=== PATIENT | male | born 1940 | race Caucasian/White ===

== ENCOUNTER → 2016-12-01 | Outpatient (CLI) | payer OTHER ==
[2016-12-01 13:08] LABS: ALT/SGPT 17 U/L (12-78); BLOOD UREA NITROGEN 13 mg/dl (7-18); BUN/CREATININE RATIO 11.7 (10-20); CALCIUM 9.2 mg/dl (8.5-10.1); CARBON DIOXIDE 34 mmol/L (21-32); CHLORIDE 102 mmol/L (98-107); CHOLESTEROL 120 mg/dl (0-200); CREATININE 1.12 mg/dl (0.60-1.40); GLUCOSE,FASTING 89 mg/dl (70-99); POTASSIUM 3.9 mmol/L (3.5-5.1); SODIUM 141 mmol/L (136-145)
[2016-12-01 13:19] LABS: ALB/GLOB RATIO 1.1 (0.9-2); ALKALINE PHOSPHATASE 85 U/L (45-117); AST/SGOT 19 U/L (15-37); CHOLESTEROL/HDL RATIO 2.4; HDL CHOLESTEROL 50 mg/dl; LDL CHOLESTEROL CALCULATED 53 mg/dl; TRIGLYCERIDES 83 mg/dl (0-150); VERY LOW DENSITY LIPOPROT CALC 17 mg/dl
== END | disposition home or self-care (01) ==
LOC: C.LABPBG 09:40
PROVIDERS: ATTEND Physician Assistant
DX: Z00.00 Encounter for general adult medical examination without abnormal findings (principal); E03.9 Hypothyroidism, unspecified

== ENCOUNTER → 2017-02-20 | Outpatient (CLI) | payer OTHER | END | disposition home or self-care (01) | LOC: C.LABPBG 15:03 | PROVIDERS: ATTEND Physician Assistant | DX: E03.9 Hypothyroidism, unspecified (principal) ==

== ENCOUNTER → 2017-04-07 | Outpatient (CLI) | payer OTHER | END | disposition home or self-care (01) | LOC: C.LABPBG 15:29 | PROVIDERS: ATTEND Physician Assistant | DX: E03.9 Hypothyroidism, unspecified (principal) ==

== ENCOUNTER → 2017-06-26 | Outpatient (CLI) | payer OTHER ==
[2017-06-26 17:01] LABS: HEMATOCRIT 40.2 % (42-52); HEMOGLOBIN 13.6 g/dL (14.0-18.0); MEAN CORPUSCULAR HEMOGLOBIN 31.1 pg (25-34); MEAN CORPUSCULAR HGB CONC 33.8 g/dl (32-36); MEAN PLATELET VOLUME 10.4 fL (7.4-10.4); PLATELET COUNT 291 K/uL (130-400); RED CELL DISTRIBUTION WIDTH CV 12.9 % (11.5-14.5); RED CELL DISTRIBUTION WIDTH SD 43.5 fL (36.4-46.3); WHITE BLOOD COUNT 8.67 K/uL (4.8-10.8)
[2017-06-26 17:35] LABS: BLOOD UREA NITROGEN 19 mg/dl (7-18); CALCIUM 9.1 mg/dl (8.5-10.1); CARBON DIOXIDE 34 mmol/L (21-32); GLUCOSE 80 mg/dl (70-99); POTASSIUM 3.9 mmol/L (3.5-5.1); SODIUM 138 mmol/L (136-145)
== END | disposition home or self-care (01) ==
LOC: C.LABPBG 15:36
PROVIDERS: ATTEND Family Medicine
DX: R41.3 Other amnesia (principal)

== ENCOUNTER 2018-06-05 19:12 | Inpatient (IN) ==
[2018-06-05 19:55] LABS: Hematocrit (blood only) 34.2 % (42-52); Hemoglobin 11.6 g/dL (14.0-18.0); Mean Corpuscular Hgb Conc 33.9 g/dL (32-36); Mean Corpuscular Volume 85.7 fL (80-100); Mean Platelet Volume 10.4 fL (7.4-10.4); Platelet Count 317 K/uL (130-400); RDW Coefficient of Variation 14.6 % (11.5-14.5); RDW Standard Deviation 46.1 fL (36.4-46.3); Red Blood Count 3.99 M/uL (4.7-6.1); White Blood Count 24.31 K/uL (4.8-10.8)
--- NOTE | 2018-06-05 20:10 | CT Scan Report ---
CT head/brain wo con CT DOSE: 537.48 mGy.cm HISTORY: Mental status change ams TECHNIQUE: Multiaxial CT images of the head were performed without the use of intravenous contrast. A dose lowering technique was utilized adhering to the principles of ALARA. Comparison: None. Findings: The paranasal sinuses and mastoid air cells are clear. The calvarium and skull base are int act. The ventricles and sulci are within normal limits. There is no mass, hematoma, midline shift, or acute infarct. Findings of generalized atrophy and chronic small vessel change. Impression: No acute intracranial abnormality. Generalized atrophy and chronic small vessel change. The above report was generated using voice recognition software. It may contain grammatical, syntax or spelling errors. Electronically signed by: Trip Ramirez M.D. 06/05/2018 8:08 PM
[2018-06-05 20:14] LABS: Appearance Urine Cloudy (Clear); Bacteria Urine Automated 3+ (Negative); Bilirubin Urine Negative (Negative); Blood Urine 3+ (Negative); Color Urine Dark Yellow; Epithelial Cell Urine Auto 20-30 /lpf (0-5); Glucose Urine UA Negative (Negative); Ketones Urine Negative (Negative); Leukocyte Esterase Urine 2+ (Negative); Nitrite Urine Positive (Negative); Protein Urine 2+ (Negative); RBC Urine Automated 0-4 /hpf (0-4); Specific Gravity Urine 1.021 (1.000-1.030); Urobilinogen Urine Negative (Negative); WBC Urine Automated >30 /hpf (0-5); pH Urine 6.5 (4.5-7.5)
[2018-06-05 20:14] LABS: Alanine Aminotransferase 15 U/L (12-78); Albumin Level 2.9 gm/dl (3.4-5.0); Aspartate Aminotransferase 26 U/L (15-37); BUN Creatinine Ratio 12.4 (10-20); Bilirubin Direct 0.3 mg/dl (0-0.2); Blood Urea Nitrogen 24 mg/dl (7-18); Calcium 8.9 mg/dl (8.5-10.1); Carbon Dioxide 29 mmol/L (21-32); Chloride 97 mmol/L (98-107); Creatinine Clr Calc Pharmacy 30.6 ml/min; Est GFR (African American) 37.5; Est GFR (Non-African American) 32.4; Glucose 125 mg/dl (70-99); Magnesium 2.3 mg/dl (1.8-2.4); Potassium 3.2 mmol/L (3.5-5.1); Sodium 136 mmol/L (136-145)
[2018-06-05 20:16] LABS: Basophils # (auto) 0.02 K/uL (0-0.2); Basophils % (auto) 0.1 %; Immature Granulocytes # (auto) 0.07 K/uL (0.00-0.02); Immature Granulocytes % (auto) 0.3 %; Lymphocytes # (auto) 0.85 K/uL (1.2-3.4); Lymphocytes % (auto) 3.5 %; Monocytes % (auto) 11.5 %; Neutrophils # (auto) 20.57 K/uL (1.4-6.5); Neutrophils % (auto) 84.6 %; Ovalocytes 1+
[2018-06-05 20:19] LABS: Alkaline Phosphatase 86 U/L (45-117); Bilirubin,Total 0.9 mg/dl (0.2-1); Total Protein 7.5 gm/dl (6.4-8.2); Troponin I < 0.015 ng/ml (0-0.045)
[2018-06-05] MEDS ORDERED: cefTRIAXone SODIUM 1,000 MG/50 ML BAG IV STA (20:19)
[2018-06-05 20:24] LABS: Influenza A virus by PCR Neg for Influ A (Neg); Influenza B virus by PCR Neg for Influ B (Neg)
[2018-06-05] MEDS: SODIUM CHLORIDE 0.9% 500 ML IV SCH (20:28)
--- NOTE | 2018-06-05 20:41 | XRay Report ---
XR chest 1V portable CLINICAL HISTORY: ams dyspnea COMPARISON STUDY: No previous studies for comparison. FINDINGS: Permanent bipolar cardiac pacemaker. Minimal infiltrative process left base. Lungs otherwis e appear clear. IMPRESSION: Minimal parenchymal infiltrate left base. The above report was generated using voice recognition software. It may contain grammatical, syntax or spelling errors. Electronically signed by: Trip Ramirez M.D. 06/05/2018 8:40 PM
[2018-06-05] MEDS ORDERED: AZITHROMYCIN 500 MG in DEXTROSE 5% 250 ML IV STA (20:45)
[2018-06-05] MEDS ORDERED: AZITHROMYCIN 250 MG TAB PO ONE (20:47)
[2018-06-05] MEDS ORDERED: POTASSIUM CHLORIDE 10 MEQ TABCR PO STA (20:47)
[2018-06-05 20:51] LABS: Base Excess VBG 5.4 mEq/L; Oxygen Saturation VBG 85.9 %; pH VBG 7.47 (7.36-7.41)
[2018-06-05 21:04] LABS: INR 1.3 (0.9-1.1); Partial Thromboplastin Ratio 1.1; Partial Thromboplastin Time 28.8 Seconds (21.0-31.0); Prothrombin Time 13.3 Seconds (9.0-12.0)
[2018-06-05] MEDS ORDERED: POLYETHYLENE (MIRALAX) 17 GM PACK PO PRN (21:40)
[2018-06-05] MEDS ORDERED: ONDANSETRON INJ 2 MG/ML 2 ML VIAL IV PRN (21:40)
[2018-06-05] MEDS ORDERED: ALUMINUM/MAGNESIUM SUSP 30 ML UDC PO PRN (21:40)
[2018-06-05] MEDS ORDERED: ACETAMINOPHEN 325 MG TAB PO PRN (21:40)
[2018-06-05] MEDS ORDERED: MAGNESIUM HYDROXIDE SUSP 30 ML UDC PO PRN (21:40)
[2018-06-05] MEDS ORDERED: ALBUT/IPRATROP 3MG/0.5MG NEB 3 ML VIAL NEB PRN (21:51)
--- NOTE | 2018-06-05 22:03 | History & Physical Report ---
Date of Service June 05, 2018 Assessment & Plan (1) UTI (urinary tract infection): 78 y/o M Hx PAF, pacer, CAD, HTN, HLD, hypothyroid, mild dementia, BPH requiring self-catheterization. The pt has become weak and disoriented over the past 2 days. He is normally independent and ambulatory. He was unable to stand himself up and was only oriented to place and self per his daughter. At the time of admission, he is able to converse with me, although he cannot provide any reliable information or tell me why he presented to the hospital. On arrival to the ER it was noted that his oxygen saturation was low. He had not reported SOB or a cough. A CXR demonstrated a LLL infiltrate. Labs were notable for a +UA, significant leukocytosis and ARF. 1) AMS, weakness - due to infection and likely dehydration - UTI - placed on Ceftriaxone pending culture results. As he self-caths, would not hesitate to broaden coverage if there is any question of evolving sepsis. - PNM - he had not complained of respiratory symptoms but was mildly hypoxic on arrival and a CXR is consistent with PNM - 02 protocol, PRN nebs, Zithro added to Ceftriaxone PT/OT pending for AM 2) ARF - IVF provided - repeat BMP AM - HCTZ held 3) AF - anticoagulated with Xarelto - Coreg provided 4) CAD - No evidence of ACS - cont ASA, statin, B christina, Imdur 5) Hypothyroidism - cont Synthroid Full code - Xarelto prophylaxis Total time for this admit including review of labs, meds, imaging, records - discussion with pt and ER attending - 39 min Present on Admission?: Yes (2) Altered mental status: (3) Hypoxia: (4) PNA (pneumonia): (5) Acute kidney injury: History of Present Illness Chief Complaint: AMS, weakness Primary Care Provider: Celina Saunders, 78 y/o M Hx PAF, pacer, CAD, HTN, HLD, hypothyroid, mild dementia, BPH requiring self-catheterization. The pt has become weak and disoriented over the past 2 days. He is normally independent and ambulatory. He was unable to stand himself up and was only oriented to place and self per his daughter. At the time of admission, he is able to converse with me, although he cannot provide any reliable information or tell me why he presented to the hospital. On arrival to the ER it was noted that his oxygen saturation was low. He had not reported SOB or a cough. A CXR demonstrated a LLL infiltrate. Labs were notable for a +UA, significant leukocytosis and ARF. PMH: 1) Paroxysmal AF - pacer 2) HTN 3) HLD 4) CAD - distant CA and 1 stent 5) Mild dementia 6) Hypothyroidism 7) BPH with obstruction requiring self-catheterization Surgical: Lumbar fusion, TKR Social: States he quit smoking and drinking in his 30s Family: States both parents due to "old age" Allergies Allergy/AdvReac Type Severity Reaction Status Date / Time captopril Allergy Severe ANAPHYLAXIS Verified 07/28/17 10:55 Iodinated Contrast- Oral and Allergy Severe ANAPHYLAXIS Verified 07/28/17 10:55 IV Dye levofloxacin Allergy Severe ANAPHYLAXIS Verified 07/28/17 10:55 oxaprozin Allergy Severe ANAPHYLAXIS Verified 07/28/17 10:55 torsemide Allergy Severe ANAPHYLAXIS Verified 07/28/17 10:55 hydrocodone Allergy Mild RASH Verified 07/28/17 10:55 morphine Allergy Unknown UNKNOWN Verified 07/28/17 10:55 Sulfa (Sulfonamide Allergy Unknown UNKNOWN Verified 07/28/17 10:55 Antibiotics) Home Medications Home Medications Medication Instructions Recorded Confirmed Type aspirin [Aspir-81] 81 mg PO DAILY 06/05/18 06/05/18 History bethanechol chloride [Urecholine] 50 mg PO QID 06/05/18 06/05/18 History calcium carbonate [Calcium 600] 1,200 mg PO DAILY 06/05/18 06/05/18 History carvedilol [Coreg] 3.125 mg PO BID 06/05/18 06/05/18 History citalopram [Celexa] 10 mg PO DAILY 06/05/18 06/05/18 History cyanocobalamin (vitamin B-12) 1,000 mcg PO DAILY 06/05/18 06/05/18 History [Vitamin B-12] docusate sodium [Stool Softener] 300 mg PO DAILY 06/05/18 06/05/18 History donepezil 10 mg PO HS 06/05/18 06/05/18 History epinephrine [EpiPen] 0.3 mg IM UD PRN 06/05/18 06/05/18 History gabapentin 300 mg PO DAILY 06/05/18 06/05/18 History hydrochlorothiazide 12.5 mg PO DAILY 06/05/18 06/05/18 History isosorbide mononitrate 30 mg PO DAILY 06/05/18 06/05/18 History levothyroxine 100 mcg PO DAILY 06/05/18 06/05/18 History memantine [Namenda] 10 mg PO BID 06/05/18 06/05/18 History nitroglycerin [Nitromist] 1 spray SUBLINGUAL UD PRN 06/05/18 06/05/18 History rivaroxaban [Xarelto] 20 mg PO DAILY 06/05/18 06/05/18 History simvastatin 80 mg PO PM 06/05/18 06/05/18 History tamsulosin 0.4 mg PO DAILY 06/05/18 06/05/18 History tramadol 50 - 100 mg PO DAILY PRN 06/05/18 06/05/18 History Past Med/Surg History Medical History Afib (Resolved) Family History Other No significant family history Social History Feels Safe at Home: Yes Smoking Status: Never smoker Review of Systems Review of Systems: Cannot obtain a reliable ROS from pt - brought in for weakness and disorientation Physical Exam Physical Exam: General: Very pleasant, elderly M, AAO x 1.5, no distress ENT: No erythema or exudates, no thrush Eyes: PURVI, EOMI Head and neck: Normocephalic, atraumatic, No JVD, neck is supple. Chest/heart: Nontender, S1,2, RRR, no murmurs, no gallops Lungs: Cannot discern any crackles or wheezing Abdomen: Nontender, nondistended, BS+ Neuro: AAO x 1.5, speech is clear, no unilateral weakness or loss of sensation, coordination intact Musculoskeletal: No joint inflammation, muscle tenderness, FROM Skin: No acute rashes or ulcers Extremities: No clubbing, cyanosis, edema Results & Data Vital Signs (Past 12 Hours) Vital Signs Temp Pulse Pulse Resp BP BP Pulse Ox 06/05/18 21:49 78 18 112/62 98 06/05/18 20:20 83 18 121/63 97 06/05/18 19:32 99.3 F 98 06/05/18 19:20 98.8 F 83 23 129/72 82 L Diagnostic Findings CXR: Minimal parenchymal infiltrate left base. (1) UTI (urinary tract infection) Hematuria presence: without hematuria Urinary tract infection type: site unspecified Qualified Code(s): N39.0 - Urinary tract infection, site not specified (2) Altered mental status Altered mental status type: unspecified Qualified Code(s): R41.82 - Altered mental status, unspecified (3) PNA (pneumonia) Laterality: right Lung location: middle lobe of lung Pneumonia type: due to unspecified organism Qualified Code(s): J18.1 - Lobar pneumonia, unspecified organism
[2018-06-05] MEDS ORDERED: TRAMADOL HCL 50 MG TABLET PO PRN (22:56)
--- NOTE | 2018-06-06 00:15 | Emergency Department Note ---
Entered by Abby Gallegos acting as a scribe for Ronald Carver History of Present Illness General Chief complaint: Altered Mental Status Stated complaint: confusion Time Seen by Provider: 06/05/18 19:25 Source: patient History of Present Illness Onset (ago): day(s) 1 Location: head (altered mental status) Pain Consistency: + other (episode) Relieved By: + none Associated symptoms: + denies other symptoms (pain), + shortness of breath and + other (trouble with urination) The patient is a 78 year old M who presents to the Emergency Room with complaints of an episode of altered mental status starting 1 day ago. The ED nurse states that per the family, the patient had trouble waking since yesterday. She adds that the family reports that the patient was experiencing trouble breathing and trouble with urination. She notes that per EMS, the patient was in A fib but was came out of it after fluids and oxygen. The patient denies having any pain. The HPI is limited due to the patient's altered mental status. Home Medications Home Medications Medication Instructions Recorded Confirmed Type aspirin [Aspir-81] 81 mg PO DAILY 06/05/18 06/05/18 History bethanechol chloride [Urecholine] 50 mg PO QID 06/05/18 06/05/18 History calcium carbonate [Calcium 600] 1,200 mg PO DAILY 06/05/18 06/05/18 History carvedilol [Coreg] 3.125 mg PO BID 06/05/18 06/05/18 History citalopram [Celexa] 10 mg PO DAILY 06/05/18 06/05/18 History cyanocobalamin (vitamin B-12) 1,000 mcg PO DAILY 06/05/18 06/05/18 History [Vitamin B-12] docusate sodium [Stool Softener] 300 mg PO DAILY 06/05/18 06/05/18 History donepezil 10 mg PO HS 06/05/18 06/05/18 History epinephrine [EpiPen] 0.3 mg IM UD PRN 06/05/18 06/05/18 History gabapentin 300 mg PO DAILY 06/05/18 06/05/18 History hydrochlorothiazide 12.5 mg PO DAILY 06/05/18 06/05/18 History isosorbide mononitrate 30 mg PO DAILY 06/05/18 06/05/18 History levothyroxine 100 mcg PO DAILY 06/05/18 06/05/18 History memantine [Namenda] 10 mg PO BID 06/05/18 06/05/18 History nitroglycerin [Nitromist] 1 spray SUBLINGUAL UD PRN 06/05/18 06/05/18 History rivaroxaban [Xarelto] 20 mg PO DAILY 06/05/18 06/05/18 History simvastatin 80 mg PO PM 06/05/18 06/05/18 History tamsulosin 0.4 mg PO DAILY 06/05/18 06/05/18 History tramadol 50 - 100 mg PO DAILY PRN 06/05/18 06/05/18 History Allergies Allergy/AdvReac Type Severity Reaction Status Date / Time captopril Allergy Severe ANAPHYLAXIS Verified 07/28/17 10:55 Iodinated Contrast- Oral and Allergy Severe ANAPHYLAXIS Verified 07/28/17 10:55 IV Dye levofloxacin Allergy Severe ANAPHYLAXIS Verified 07/28/17 10:55 oxaprozin Allergy Severe ANAPHYLAXIS Verified 07/28/17 10:55 torsemide Allergy Severe ANAPHYLAXIS Verified 07/28/17 10:55 hydrocodone Allergy Mild RASH Verified 07/28/17 10:55 morphine Allergy Unknown UNKNOWN Verified 07/28/17 10:55 Sulfa (Sulfonamide Allergy Unknown UNKNOWN Verified 07/28/17 10:55 Antibiotics) Past Med/Surg History Medical History Afib (Resolved) Family History Other No significant family history Social History Preferred Language: Kyr[place]z Communication Ability: Effective 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 Beliefs That Will Affect Care: None Current Living Situation: Spouse Feels Safe at Home: Yes Safety Concerns: Feels Safe At This Time Smoking Status: Former smoker Hx Alcohol Use: No Hx Substance Use: No Review of Systems Unobtainable due to cognitive status Physical Exam Vital Signs Vital Signs - 24 hr 06/05/18 19:20 06/05/18 19:32 06/05/18 20:20 Temperature 37.1 C 37.4 C Temperature Source Oral Rectal Sepsis Recent Fever Within 48 Hours No Sepsis New/Unexplained Change in Mental Status No Sepsis Action Taken by Nursing No Action Required Pulse Rate 83 Pulse Rate [Right Finger] 83 Pulse Rhythm Regular Pulse Rhythm [Right Finger] Pulse Strength Normal Pulse Strength [Right Finger] Respiratory Rate 23 18 Respiratory Effort / Characteristics Non-Labored Respiratory Depth Normal Respiratory Pattern Regular Blood Pressure 129/72 Blood Pressure [Right Arm] 121/63 Blood Pressure Mean 91 Blood Pressure Mean [Right Arm] 82 Blood Pressure Position Lying Pulse Oximetry 82 L 98 97 Oxygen Delivery Method Room Air Nasal Cannula Nasal Cannula Oxygen Flow Rate 4 4 06/05/18 21:49 06/05/18 23:48 Temperature 36.7 C Temperature Source Oral Sepsis Recent Fever Within 48 Hours Sepsis New/Unexplained Change in Mental Status Sepsis Action Taken by Nursing Pulse Rate Pulse Rate [Right Finger] 78 77 Pulse Rhythm Pulse Rhythm [Right Finger] Regular Pulse Strength Pulse Strength [Right Finger] Normal Respiratory Rate 18 16 Respiratory Effort / Characteristics Non-Labored Spontaneous Respiratory Depth Normal Respiratory Pattern Regular Blood Pressure Blood Pressure [Right Arm] 112/62 126/73 Blood Pressure Mean Blood Pressure Mean [Right Arm] 78 90 Blood Pressure Position Pulse Oximetry 98 98 Oxygen Delivery Method Nasal Cannula Nasal Cannula Oxygen Flow Rate 4 4 GENERAL: He is alert and oriented x 0. HENT: Exam performed. - Head: Normocephalic and atraumatic. - Right Ear: External ear normal. No mastoid tenderness. - Left Ear: External ear normal. No mastoid tenderness. - Mouth/Throat: The oropharynx is clear and moist. No trismus in the jaw. No dental abscesses or uvula swelling. No oropharyngeal exudate or tonsillar abscesses. EYES: Conjunctivae and EOM are normal. Pupils are equal, round, and reactive to light. Right eye exhibits no discharge. Left eye exhibits no discharge. No scleral icterus. NECK: Normal range of motion. Neck supple. No JVD present. No spinous process tenderness present. No carotid bruit present. No rigidity. No tracheal deviation and normal range of motion present. No Brudzinski's sign and no Kernig's sign noted. CV: Normal rate, regular rhythm, normal heart sounds and intact distal pulses. There is no peripheral edema. Palpable radial pulses bue. PULM/CHEST: Effort normal and rhonchi bilaterally. - Chest Wall: He exhibits no tenderness. ABD: The abdomen is soft. Bowel sounds are normal. He has no distension. No mass is present. There is no tenderness. There is no rebound, no guarding, no Silva's sign and no tenderness at McBurney's point. Rovsig negative. MUSC/SKEL: Normal range of motion. There is no peripheral edema, tenderness or deformity. LYMPH: No cervical adenopathy. NEURO: He is alert and oriented x 0. He has normal strength. No cranial nerve deficit or sensory deficit. Coordination and gait normal. Motor and sensation is grossly intact. GCS eye subscore is 4. GCS verbal subscore is 5. GCS motor subscore is 6. Cerebellar tests wnl. SKIN: Skin is warm and dry. He is not diaphoretic. PSYCH: He has a normal mood and affect. Behavior is normal. Judgment and thought content normal. Course 2101: The patient was evaluated in room A11B. A complete history and physical exam was performed. 2047: The patient's vital signs are stable on nasal cannula. Labs showed a white cell count of 24.3. Urine appears cloudy and infected. Chest x-ray appears to show infiltrate. Creatinine is elevated to 1.92 from a baseline of 1. The patient was given Zithromax and Rocephin for a UTI and pneumonia. The patient's potassium was 3.2. Potassium replaced in the emergency department.I reviewed the patient's case with Dr. Dominic Vargas [facility] [place] hospital[place]. He will evaluate the patient for further management. Consultations Consultation #1: I reviewed the patient's case with Dr. Dominic Vargas [facility] [place] Hospitalist. He will evaluate the patient for further management. Time: 20:50 Administered Medications Potassium Chloride/Dextrose/Sod Cl (D5nss + 20meq Kcl) 20 meq in 1,000 mls @ 100 mls/hr IV .Q10H FLEX Stop: 06/06/18 18:59 Last Admin: 06/06/18 00:50 Dose: 100 mls/hr Documented by: [id number] Discontinued Medications Azithromycin (Zithromax) 500 mg PO NOW ONE Stop: 06/05/18 20:48 Last Admin: 06/05/18 20:58 Dose: 500 mg Documented by: [id number] Sodium Chloride (Nss) 500 mls @ 125 mls/hr IV .Q4H FLEX Stop: 07/05/18 19:29 Last Infusion: 06/05/18 22:22 Dose: 0 mls/hr Documented by: [id number] Admin: 06/05/18 20:28 Dose: 125 mls/hr Documented by: [id number] Ceftriaxone Sodium (Rocephin) 1,000 mg in 50 mls @ 100 mls/hr IV NOW STA Stop: 06/05/18 20:48 Last Infusion: 06/05/18 20:58 Dose: 0 mls/hr Documented by: [id number] Admin: 06/05/18 20:28 Dose: 100 mls/hr Documented by: [id number] Azithromycin 500 mg/ Dextrose 255 mls @ 127.5 mls/hr IV NOW STA Stop: 06/05/18 22:44 Last Admin: 06/05/18 20:59 Dose: Not Given Documented by: [id number] Potassium Chloride (Klor-Con M10) 40 meq PO NOW STA Stop: 06/05/18 20:48 Last Admin: 06/05/18 20:58 Dose: 40 meq Documented by: [id number] Medical Decision Making Medical Records Attestation: I reviewed the patient's medical records. Home Medications Current Medication List: was personally reviewed by me Laboratory Data Attestation: I reviewed the patient's lab results. Result diagrams: 06/05/18 19:40 06/05/18 19:40 Lab Results 06/05/18 06/05/18 06/05/18 Range/Units 19:40 19:40 19:40 WBC 24.31 H (4.8-10.8) K/uL RBC 3.99 L (4.7-6.1) M/uL Hgb 11.6 L (14.0-18.0) g/dL Hct 34.2 L (42-52) % MCV 85.7 (80-100) fL MCH 29.1 (25-34) pg MCHC 33.9 (32-36) g/dL RDW Std Deviation 46.1 (36.4-46.3) fL RDW Coeff of Curtis 14.6 H (11.5-14.5) % Plt Count 317 (130-400) K/uL MPV 10.4 (7.4-10.4) fL Immature Gran % (Auto) 0.3 % Neut % (Auto) 84.6 % Lymph % (Auto) 3.5 % [place] % (Auto) 11.5 % Eos % (Auto) 0.0 % Baso % (Auto) 0.1 % Immature Gran # (Auto) 0.07 H (0.00-0.02) K/uL Neut # (Auto) 20.57 H (1.4-6.5) K/uL Lymph # (Auto) 0.85 L (1.2-3.4) K/uL [place] # (Auto) 2.80 H (0.11-0.59) K/uL Eos # (Auto) 0.00 (0-0.5) K/uL Baso # (Auto) 0.02 (0-0.2) K/uL Ovalocytes 1+ PT Cancelled INR Cancelled APTT Cancelled PTT Ratio Cancelled VBG pH (7.36-7.41) VBG pCO2 (38-50) mmHg VBG pO2 mmHg VBG HCO3 mmol/L VBG O2 Saturation % VBG Base Excess mEq/L Barometric Pressure mm/Hg Sodium 136 (136-145) mmol/L Potassium 3.2 L (3.5-5.1) mmol/L Chloride 97 L (98-107) mmol/L Carbon Dioxide 29 (21-32) mmol/L Anion Gap 10.0 (3-11) BUN 24 H (7-18) mg/dl Creatinine 1.92 H (0.6-1.4) mg/dl Est Cr Clr Drug Dosing 30.6 ml/min Est GFR ( Amer) 37.5 Est GFR (Non-Af Amer) 32.4 BUN/Creatinine Ratio 12.4 (10-20) Glucose 125 H (70-99) mg/dl Lactate (0.4-2.0) mmol/L Calcium 8.9 (8.5-10.1) mg/dl Magnesium 2.3 (1.8-2.4) mg/dl Total Bilirubin 0.9 (0.2-1) mg/dl Direct Bilirubin 0.3 H (0-0.2) mg/dl AST 26 (15-37) U/L ALT 15 (12-78) U/L Alkaline Phosphatase 86 (45-117) U/L Ammonia (11-32) umol/L Troponin I < 0.015 (0-0.045) ng/ml Total Protein 7.5 (6.4-8.2) gm/dl Albumin 2.9 L (3.4-5.0) gm/dl Lipase 64 L (73-393) U/L Urine Color Urine Appearance (Clear) Urine pH (4.5-7.5) Ur Specific [place] (1.000-1.030) Urine Protein (Negative) Urine Glucose (UA) (Negative) Urine Ketones (Negative) Urine Blood (Negative) Urine Nitrite (Negative) Urine Bilirubin (Negative) Urine Urobilinogen (Negative) Ur Leukocyte Esterase (Negative) Urine WBC (Auto) (0-5) /hpf Urine RBC (Auto) (0-4) /hpf U Hyaline Cast (Auto) (0-5) /lpf U Epithel Cells (Auto) (0-5) /lpf Urine Bacteria (Auto) (Negative) Granular Casts (0) /lpf Influenza Type A (PCR) (Neg) Influenza Type B (PCR) (Neg) 06/05/18 06/05/18 06/05/18 Range/Units 19:40 19:54 20:32 WBC (4.8-10.8) K/uL RBC (4.7-6.1) M/uL Hgb (14.0-18.0) g/dL Hct (42-52) % MCV (80-100) fL MCH (25-34) pg MCHC (32-36) g/dL RDW Std Deviation (36.4-46.3) fL RDW Coeff of Curtis (11.5-14.5) % Plt Count (130-400) K/uL MPV (7.4-10.4) fL Immature Gran % (Auto) % Neut % (Auto) % Lymph % (Auto) % [place] % (Auto) % Eos % (Auto) % Baso % (Auto) % Immature Gran # (Auto) (0.00-0.02) K/uL Neut # (Auto) (1.4-6.5) K/uL Lymph # (Auto) (1.2-3.4) K/uL [place] # (Auto) (0.11-0.59) K/uL Eos # (Auto) (0-0.5) K/uL Baso # (Auto) (0-0.2) K/uL Ovalocytes PT INR APTT PTT Ratio VBG pH (7.36-7.41) VBG pCO2 (38-50) mmHg VBG pO2 mmHg VBG HCO3 mmol/L VBG O2 Saturation % VBG Base Excess mEq/L Barometric Pressure mm/Hg Sodium (136-145) mmol/L Potassium (3.5-5.1) mmol/L Chloride (98-107) mmol/L Carbon Dioxide (21-32) mmol/L Anion Gap (3-11) BUN (7-18) mg/dl Creatinine (0.6-1.4) mg/dl Est Cr Clr Drug Dosing ml/min Est GFR ( Amer) Est GFR (Non-Af Amer) BUN/Creatinine Ratio (10-20) Glucose (70-99) mg/dl Lactate (0.4-2.0) mmol/L Calcium (8.5-10.1) mg/dl Magnesium (1.8-2.4) mg/dl Total Bilirubin (0.2-1) mg/dl Direct Bilirubin (0-0.2) mg/dl AST (15-37) U/L ALT (12-78) U/L Alkaline Phosphatase (45-117) U/L Ammonia 28.2 (11-32) umol/L Troponin I (0-0.045) ng/ml Total Protein (6.4-8.2) gm/dl Albumin (3.4-5.0) gm/dl Lipase (73-393) U/L Urine Color Dark Yellow Urine Appearance Cloudy H (Clear) Urine pH 6.5 (4.5-7.5) Ur Specific [place] 1.021 (1.000-1.030) Urine Protein 2+ H (Negative) Urine Glucose (UA) Negative (Negative) Urine Ketones Negative (Negative) Urine Blood 3+ H (Negative) Urine Nitrite Positive H (Negative) Urine Bilirubin Negative (Negative) Urine Urobilinogen Negative (Negative) Ur Leukocyte Esterase 2+ H (Negative) Urine WBC (Auto) >30 H (0-5) /hpf Urine RBC (Auto) 0-4 (0-4) /hpf U Hyaline Cast (Auto) 1-5 (0-5) /lpf U Epithel Cells (Auto) 20-30 H (0-5) /lpf Urine Bacteria (Auto) 3+ H (Negative) Granular Casts 1-5 H (0) /lpf Influenza Type A (PCR) Neg for Influ A (Neg) Influenza Type B (PCR) Neg for Influ B (Neg) 06/05/18 06/05/18 06/05/18 Range/Units 20:32 20:32 20:32 WBC (4.8-10.8) K/uL RBC (4.7-6.1) M/uL Hgb (14.0-18.0) g/dL Hct (42-52) % MCV (80-100) fL MCH (25-34) pg MCHC (32-36) g/dL RDW Std Deviation (36.4-46.3) fL RDW Coeff of Curtis (11.5-14.5) % Plt Count (130-400) K/uL MPV (7.4-10.4) fL Immature Gran % (Auto) % Neut % (Auto) % Lymph % (Auto) % [place] % (Auto) % Eos % (Auto) % Baso % (Auto) % Immature Gran # (Auto) (0.00-0.02) K/uL Neut # (Auto) (1.4-6.5) K/uL Lymph # (Auto) (1.2-3.4) K/uL [place] # (Auto) (0.11-0.59) K/uL Eos # (Auto) (0-0.5) K/uL Baso # (Auto) (0-0.2) K/uL Ovalocytes PT 13.3 H INR 1.3 H APTT 28.8 PTT Ratio 1.1 VBG pH 7.47 H (7.36-7.41) VBG pCO2 42 (38-50) mmHg VBG pO2 52 mmHg VBG HCO3 30 mmol/L VBG O2 Saturation 85.9 % VBG Base Excess 5.4 mEq/L Barometric Pressure 728.3 mm/Hg Sodium (136-145) mmol/L Potassium (3.5-5.1) mmol/L Chloride (98-107) mmol/L Carbon Dioxide (21-32) mmol/L Anion Gap (3-11) BUN (7-18) mg/dl Creatinine (0.6-1.4) mg/dl Est Cr Clr Drug Dosing ml/min Est GFR ( Amer) Est GFR (Non-Af Amer) BUN/Creatinine Ratio (10-20) Glucose (70-99) mg/dl Lactate 1.3 (0.4-2.0) mmol/L Calcium (8.5-10.1) mg/dl Magnesium (1.8-2.4) mg/dl Total Bilirubin (0.2-1) mg/dl Direct Bilirubin (0-0.2) mg/dl AST (15-37) U/L ALT (12-78) U/L Alkaline Phosphatase (45-117) U/L Ammonia (11-32) umol/L Troponin I (0-0.045) ng/ml Total Protein (6.4-8.2) gm/dl Albumin (3.4-5.0) gm/dl Lipase (73-393) U/L Urine Color Urine Appearance (Clear) Urine pH (4.5-7.5) Ur Specific [place] (1.000-1.030) Urine Protein (Negative) Urine Glucose (UA) (Negative) Urine Ketones (Negative) Urine Blood (Negative) Urine Nitrite (Negative) Urine Bilirubin (Negative) Urine Urobilinogen (Negative) Ur Leukocyte Esterase (Negative) Urine WBC (Auto) (0-5) /hpf Urine RBC (Auto) (0-4) /hpf U Hyaline Cast (Auto) (0-5) /lpf U Epithel Cells (Auto) (0-5) /lpf Urine Bacteria (Auto) (Negative) Granular Casts (0) /lpf Influenza Type A (PCR) (Neg) Influenza Type B (PCR) (Neg) Imaging Data Radiologist's Impression: Radiology results as stated below per my review and the radiologist's interpretation: CT head/brain wo con CT DOSE: 537.48 mGy.cm HISTORY: Mental status change ams TECHNIQUE: Multiaxial CT images of the head were performed without the use of intravenous contrast. A dose lowering technique was utilized adhering to the principles of ALARA. Comparison: None. Findings: The paranasal sinuses and mastoid air cells are clear. The calvarium and skull base are intact. The ventricles and sulci are within normal limits. There is no mass, hematoma, midline shift, or acute infarct. Findings of generalized atrophy and chronic small vessel change. Impression: No acute intracranial abnormality. Generalized atrophy and chronic small vessel change. The above report was generated using voice recognition software. It may contain grammatical, syntax or spelling errors. Electronically signed by: Trip Ramirez M.D. 06/05/2018 8:08 PM XR chest 1V portable CLINICAL HISTORY: ams dyspnea COMPARISON STUDY: No previous studies for comparison. FINDINGS: Permanent bipolar cardiac pacemaker. Minimal infiltrative process left base. Lungs otherwise appear clear. IMPRESSION: Minimal parenchymal infiltrate left base. The above report was generated using voice recognition software. It may contain grammatical, syntax or spelling errors. Electronically signed by: Trip Ramirez M.D. 06/05/2018 8:40 PM ECG Data Attestation: I personally reviewed and interpreted this ECG as follows: Indication: SOB/dyspnea Rate (beats per minute): 78 Rhythm: sinus rhythm Findings: + other (pr, qrs and qtc intervals within normallimits ); no ST depression and no ST elevation Blood Pressure Blood Pressure Findings: Normal blood pressure Blood Pressure Disposition: did not require urgent referral MDM Narrative The patient's vital signs are stable on nasal cannula. Labs showed a white cell count of 24.3. Urine appears cloudy and infected. Chest x-ray appears to show infiltrate. Creatinine is elevated to 1.92 from a baseline of 1. The patient was given Zithromax and Rocephin for a UTI and pneumonia. The patient's potassium was 3.2. Potassium replaced in the emergency department.I reviewed the patient's case with Dr. Dominic Vargas [facility] [place] hospital[place]. He will evaluate the p atient for further management. Impression & Plan Hypoxia, Altered mental status, UTI (urinary tract infection), PNA (pneumonia), Acute kidney injury Discharge Plan Visit Data *Final* Discharge Date/Time: 06/05/18 22:17 Chief Complaint: Altered Mental Status Stated Complaint: confusion ED Provider: Ronald Carver Discharge Problem: Hypoxia, Altered mental status, UTI (urinary tract infection), PNA (pneumonia), Acute kidney injury Patient Disposition: Admitted As Inpatient Discharge Instructions Interventions: ED Discharge Assessment Last Done: 06/05/18 22:17 Discharge Problem: Altered mental status Qualifiers: Altered mental status type: unspecified Qualified Code(s): R41.82 - Altered mental status, unspecified UTI (urinary tract infection) Qualifiers: Urinary tract infection type: site unspecified Hematuria presence: without hematuria Qualified Code(s): N39.0 - Urinary tract infection, site not specified PNA (pneumonia) Qualifiers: Pneumonia type: due to unspecified organism Laterality: right Lung location: middle lobe of lung Qualified Code(s): J18.1 - Lobar pneumonia, unspecified organism The scribe's documentation has been prepared under my direction and personally reviewed by me in its entirety. I confirm that the note above accurately re flects all work, treatment, procedures, and medical decision making performed by me.
[2018-06-06] MEDS: D5NSS + 20MEQ KCL 20 MEQ/1,000 ML BAG IV SCH ×2 (00:50→10:18)
[2018-06-06] MEDS: LEVOTHYROXINE SODIUM 100 MCG TABLET PO SCH (06:15)
[2018-06-06 06:36] LABS: Hematocrit (blood only) 32.2 % (42-52); Hemoglobin 10.6 g/dL (14.0-18.0); Mean Corpuscular Hgb Conc 32.9 g/dL (32-36); Mean Corpuscular Volume 85.4 fL (80-100); Platelet Count 277 K/uL (130-400); RDW Coefficient of Variation 14.8 % (11.5-14.5); RDW Standard Deviation 46.7 fL (36.4-46.3); Red Blood Count 3.77 M/uL (4.7-6.1); White Blood Count 23.94 K/uL (4.8-10.8)
[2018-06-06 07:05] LABS: Calcium 8.7 mg/dl (8.5-10.1); Creatinine Clr Calc Pharmacy 33.6 ml/min; Est GFR (African American) 43.5; Est GFR (Non-African American) 37.5; Magnesium 2.2 mg/dl (1.8-2.4); Potassium 3.3 mmol/L (3.5-5.1)
[2018-06-06 07:21] LABS: Anisocytosis Present; Basophils # (auto) 0.01 K/uL (0-0.2); Echinocytes 1+; Immature Granulocytes % (auto) 0.4 %; Lymphocytes # (auto) 0.91 K/uL (1.2-3.4); Lymphocytes % (auto) 3.8 %; Monocytes # (auto) 2.86 K/uL (0.11-0.59); Monocytes % (auto) 11.9 %; Neutrophils # (auto) 20.06 K/uL (1.4-6.5); Neutrophils % (auto) 83.9 %; Ovalocytes 1+
[2018-06-06] MEDS: ISOSORBIDE MONO EXTENDED REL 30 MG TABCR PO SCH (08:34)
[2018-06-06] MEDS: MEMANTINE HCL 10 MG TAB PO SCH ×2 (08:34→20:59)
[2018-06-06] MEDS: CITALOPRAM 20 MG TAB PO SCH (08:34)
[2018-06-06] MEDS: CARVEDILOL 3.125 MG TAB PO SCH ×2 (08:34→20:58)
[2018-06-06] MEDS: BETHANECHOL CHL 25 MG TAB PO SCH ×4 (08:34→20:59)
[2018-06-06] MEDS: GABAPENTIN 300 MG CAP PO SCH (08:34)
[2018-06-06] MEDS: DOCUSATE SODIUM 100 MG CAP PO SCH (08:35)
[2018-06-06] MEDS: ASPIRIN 81 MG ECTAB PO SCH (08:35)
[2018-06-06] MEDS: CYANOCOBALAMIN 500 MCG TABLET (VITAMIN B-12) PO SCH (08:36)
[2018-06-06] MEDS: TAMSULOSIN HCL 0.4 MG CAP PO SCH (08:37)
[2018-06-06] MEDS ORDERED: hydroCHLOROthiazide 25 MG TAB PO SCH (09:00)
[2018-06-06] MEDS ORDERED: POTASSIUM CHLORIDE 20 MEQ TABCR PO STA (09:16)
--- NOTE | 2018-06-06 13:37 | Hospitalist Progress Note ---
Date of Service June 06, 2018 Assessment & Plan (1) UTI (urinary tract infection): Pt is a 78 y/o M Hx PAF, pacer, CAD, HTN, HLD, hypothyroid, mild dementia, BPH requiring self-catheterization. The pt became weak and disoriented over 2 days prior to admission. He is normally independent and ambulatory. He was unable to stand himself up and was only oriented to place and self per his daughter. On arrival to the ER it was noted that his oxygen saturation was low. He had not reported SOB or a cough. A CXR demonstrated a LLL infiltrate. Labs were notable for a +UA, significant leukocytosis and ARF. UTI - With a h/o self-cath but hasn't done that in 2 months, but reports urinar y frequency--> with cognitive impairment, question if he is retaining at home an dnot aware. Says he self-caths "when I feel I have to." Also had a urological procedure of some sort 1 month ago in [place]. -Ur cx growing GNR -continue Ceftriaxone pending culture results - As he self-caths, would not hesitate to broaden coverage if not improving -had Michel placed upon admission given the GIOVANY and likely urine retention -consider consult to Urol (2) Altered mental status: Acute metabolic encephalopathy and generalized weakness - due to infection and likely dehydration . Improved today -treat infections, IVFs, supportive care (3) Hypoxia: (4) PNA (pneumonia): - PNM - he had not complained of respiratory symptoms but was mildly hypoxic on arrival and a CXR is consistent with PNM Does have a cough as per his daughter Now weaned off O2 today -continue PRN nebs -continue azithro and Ceftriaxone (5) Acute kidney injury: [employer] at 1.9 on arrival, now improved with Michel cath placement and IVFs to 1.7 Baseline [employer] 1.1 just a few days prior to admission BUN elevated as well and suspect is prerenal, but possibly post-obstructive as well -hold HCTZ -IVFs to run x 2L, then stop - repeat BMP AM (6) CAD (coronary artery disease), [place] coronary artery: CAD - No evidence of ACS on ECG, trop is negative x 1 - cont ASA, statin, B christina, Imdur (7) Hypothyroidism: - cont Synthroid TSH 1.58 here (8) Hyperlipidemia: continue statin (9) HTN (hypertension), benign: BP controlled for the most part -holding HCTZ for GIOVANY -continue Coreg, isosorbide (10) Mild cognitive impairment: -continue supportive care seems to be fairly independent as per daughter -continue memantine, donepezil (11) BPH w urinary obs/LUTS: with h/o self-cath follows with Urol in [place] but daughter reports trying to switch to [place] (12) Atrial fibrillation: Paroxysmal, was in Afib inthe ambulance on the way here reportedly but then converted spontaneously to NSR on arrival - anticoagulated with Xarelto -continue Coreg for rate control (13) Cardiac pacemaker in situ: presumably for SSS, but unclear (14) Anemia: mild, normocytic is on B12 supplement on home med list -Hgb 10 here -check Fe studies, B12, folate, fecal occult blood (15) Hypokalemia: likely secondary to HCTZ use or poor po intake -replace with po KCl and follow BMP in AM -holding HCTZ (16) DVT prophylaxis: Xarelto-changed to renal dosing as per Pharmacy protocol Dispo-remain in hospital Subjective Pt reports feeling better. Has a cough that he denies but his daughter at the bedside reports. Denies N/V, denies abd pain or diarrhea. Denies urinary urgency but has frequency, denies hematuria or dysuria. Reports he had a Urological procedure about one month ago which sounds like a cystoscopy, but he can't tell me the name of his Urologist-someone in [place]. Daughter reports his mentation is improved, but not back to baseline yet. Review of Systems Review of Systems: All systems reviewed & are unremarkable except as noted in HPI & below Physical Exam Constitutional: WD/WN, vitals as above Eyes: PERRL, conjunctivae normal, anicteric sclerae ENMT: external ear and nose normal, oropharynx normal Neck: trachea midline, no thyromegaly Respiratory: normal respiratory effort Auscultation: + crackles (at left base) and + wheezes (an occasional exp wheeze); no rhonchi Cardiovascular: RRR, no murmur, no edema Gastrointestinal (Abdomen): normal bowel sounds, soft, nontender, no hepatosplenomegaly Musculoskeletal: Extremities: extremities normal to inspection; no cyanosis and no clubbing Skin: no rashes, warm and dry Neurologic: moves all extremities and awake; no focal motor deficits Psychiatric: Orientation: alert, oriented to person, oriented to place and cooperative Eye Contact: good eye contact Results & Data Vital Signs (Past 12 Hours) Vital Signs Temp Pulse Pulse Resp BP BP Pulse Ox 06/06/18 12:00 36.4 C L 79 16 128/72 95 06/06/18 07:43 37.2 C 78 18 115/61 95 Laboratory Results 06/06/18 06/06/18 06/06/18 Range/Units 16:32 11:26 08:01 Immature Gran % (Auto) % Neut % (Auto) % Lymph % (Auto) % [place] % (Auto) % Eos % (Auto) % Baso % (Auto) % Immature Gran # (Auto) (0.00-0.02) K/uL Neut # (Auto) (1.4-6.5) K/uL Lymph # (Auto) (1.2-3.4) K/uL [place] # (Auto) (0.11-0.59) K/uL Eos # (Auto) (0-0.5) K/uL Baso # (Auto) (0-0.2) K/uL Anisocytosis Ovalocytes Echinocytes Sodium (136-145) mmol/L Potassium (3.5-5.1) mmol/L Chloride (98-107) mmol/L Carbon Dioxide (21-32) mmol/L Anion Gap (3-11) BUN (7-18) mg/dl Creatinine (0.6-1.4) mg/dl Est Cr Clr Drug Dosing ml/min Est GFR ( Amer) Est GFR (Non-Af Amer) BUN/Creatinine Ratio (10-20) Glucose (70-99) mg/dl POC Glucose 110 H 178 H 178 H (70-99) Calcium (8.5-10.1) mg/dl Magnesium (1.8-2.4) mg/dl 06/06/18 06/06/18 Range/Units 05:52 05:52 Immature Gran % (Auto) 0.4 % Neut % (Auto) 83.9 % Lymph % (Auto) 3.8 % [place] % (Auto) 11.9 % Eos % (Auto) 0.0 % Baso % (Auto) 0.0 % Immature Gran # (Auto) 0.10 H (0.00-0.02) K/uL Neut # (Auto) 20.06 H (1.4-6.5) K/uL Lymph # (Auto) 0.91 L (1.2-3.4) K/uL [place] # (Auto) 2.86 H (0.11-0.59) K/uL Eos # (Auto) 0.00 (0-0.5) K/uL Baso # (Auto) 0.01 (0-0.2) K/uL Anisocytosis Present Ovalocytes 1+ Echinocytes 1+ Sodium 137 (136-145) mmol/L Potassium 3.3 L (3.5-5.1) mmol/L Chloride 101 (98-107) mmol/L Carbon Dioxide 31 (21-32) mmol/L Anion Gap 6.0 (3-11) BUN 22 H (7-18) mg/dl Creatinine 1.70 H (0.6-1.4) mg/dl Est Cr Clr Drug Dosing 33.6 ml/min Est GFR ( Amer) 43.5 Est GFR (Non-Af Amer) 37.5 BUN/Creatinine Ratio 13.0 (10-20) Glucose 167 H (70-99) mg/dl POC Glucose (70-99) Calcium 8.7 (8.5-10.1) mg/dl Magnesium 2.2 (1.8-2.4) mg/dl Ur Cx: GNR (1) UTI (urinary tract infection) Hematuria presence: without hematuria Urinary tract infection type: site unspecified Qualified Code(s): N39.0 - Urinary tract infection, site not specified (2) Altered mental status Altered mental status type: unspecified Qualified Code(s): R41.82 - Altered mental status, unspecified (3) PNA (pneumonia) Laterality: right Lung location: middle lobe of lung Pneumonia type: due to unspecified organism Qualified Code(s): J18.1 - Lobar pneumonia, unspecified organism
[2018-06-06] MEDS ORDERED: RIVAROXABAN 15 MG TAB PO SCH (15:30)
[2018-06-06] MEDS: RIVAROXABAN 15 MG TAB PO SCH (16:34)
[2018-06-06] MEDS: cefTRIAXone SODIUM 1,000 MG in DEXTROSE 5% 50 ML IV SCH (19:57)
[2018-06-06] MEDS: DONEPEZIL HCL 10 MG TAB PO SCH (20:58)
[2018-06-06] MEDS: SIMVASTATIN 80 MG TAB PO SCH (20:58)
[2018-06-06] MEDS ORDERED: AZITHROMYCIN 500 MG in DEXTROSE 5% 250 ML IV SCH (22:00)
[2018-06-07] MEDS: LEVOTHYROXINE SODIUM 100 MCG TABLET PO SCH (05:42)
[2018-06-07 07:20] LABS: Basophils # (auto) 0.01 K/uL (0-0.2); Eosinophils # (auto) 0.02 K/uL (0-0.5); Eosinophils % (auto) 0.1 %; Hematocrit (blood only) 32.2 % (42-52); Hemoglobin 10.9 g/dL (14.0-18.0); Immature Granulocytes # (auto) 0.04 K/uL (0.00-0.02); Immature Granulocytes % (auto) 0.2 %; Lymphocytes # (auto) 0.83 K/uL (1.2-3.4); Mean Corpuscular Hgb Conc 33.9 g/dL (32-36); Mean Corpuscular Volume 85.9 fL (80-100); Monocytes # (auto) 2.07 K/uL (0.11-0.59); Neutrophils # (auto) 17.67 K/uL (1.4-6.5); Neutrophils % (auto) 85.7 %; Platelet Count 267 K/uL (130-400); RDW Coefficient of Variation 14.9 % (11.5-14.5); Red Blood Count 3.75 M/uL (4.7-6.1); White Blood Count 20.64 K/uL (4.8-10.8)
[2018-06-07] MEDS: CITALOPRAM 20 MG TAB PO SCH (07:51)
[2018-06-07 07:52] LABS: BUN Creatinine Ratio 12.3 (10-20); Calcium 8.6 mg/dl (8.5-10.1); Creatinine Clr Calc Pharmacy 47.2 ml/min; Est GFR (African American) 65.6; Est GFR (Non-African American) 56.6; Magnesium 2.2 mg/dl (1.8-2.4); Potassium 3.2 mmol/L (3.5-5.1)
[2018-06-07] MEDS: DOCUSATE SODIUM 100 MG CAP PO SCH (07:52)
[2018-06-07] MEDS: ISOSORBIDE MONO EXTENDED REL 30 MG TABCR PO SCH (07:52)
[2018-06-07] MEDS: GABAPENTIN 300 MG CAP PO SCH (07:52)
[2018-06-07] MEDS: BETHANECHOL CHL 25 MG TAB PO SCH ×4 (07:53→21:29)
[2018-06-07] MEDS: ASPIRIN 81 MG ECTAB PO SCH (07:53)
[2018-06-07] MEDS: CYANOCOBALAMIN 500 MCG TABLET (VITAMIN B-12) PO SCH (07:53)
[2018-06-07] MEDS: CARVEDILOL 3.125 MG TAB PO SCH ×2 (07:54→21:33)
[2018-06-07] MEDS: TAMSULOSIN HCL 0.4 MG CAP PO SCH (07:54)
[2018-06-07] MEDS: MEMANTINE HCL 10 MG TAB PO SCH ×2 (07:55→21:29)
[2018-06-07 07:58] LABS: Ferritin 225.4 ng/ml (8-388)
[2018-06-07] MEDS ORDERED: POTASSIUM CHLORIDE 10 MEQ TABCR PO STA (08:33)
[2018-06-07 09:37] LABS: Folate (Folic Acid) 7.87 ng/ml (>5.38)
--- NOTE | 2018-06-07 14:33 | XRay Report ---
XR chest 2V routine CLINICAL HISTORY: ? LLL pneumonia ? Pneumonia COMPARISON STUDY: 06/05/2018 FINDINGS: Improved left basilar infiltrate. Trace pleural fluid left base. Study is otherwise unchanged. IMPRESSION: 1. Improved left basilar infiltrate. 2. Interval small left pleural effusion. The above report was generated using voice recognition software. It may contain grammatical, syntax or spelling errors. Electronically signed by: Trip Ramirez M.D. 06/07/2018 2:31 PM
[2018-06-07] MEDS: POTASSIUM CHLORIDE 10 MEQ TABCR PO SCH ×2 (14:45→21:33)
[2018-06-07] MEDS: RIVAROXABAN 15 MG TAB PO SCH (16:32)
[2018-06-07] MEDS ORDERED: AZITHROMYCIN 250 MG in DEXTROSE 5% 250 ML IV SCH (17:00)
--- NOTE | 2018-06-07 19:40 | Hospitalist Progress Note ---
Date of Service June 07, 2018 Assessment & Plan (1) UTI (urinary tract infection): 2nd to morganella. currently on rocephin. day #3 of Rx. will need IVON to r/o prostatitis. Present on Admission?: Yes (2) PNA (pneumonia): suspected. LLL. repeat cxr today. currently on rocephin/zithromax - day #3 of Rx. change zithromax to IV. Present on Admission?: Yes (3) Metabolic encephalopathy: 2nd to UTI and pneumonia - resolved. seems back to baseline. Present on Admission?: Yes (4) Acute kidney injury: resolved. 2nd to UTI/etc. repeat BMP in am. Present on Admission?: Yes (5) Hypothyroidism: TSH compensated cont synthroid as is (6) CAD (coronary artery disease), [place] coronary artery: no ischemic sx's at this time (7) HTN (hypertension), benign: BPs acceptable at this time (8) BPH w urinary obs/LUTS: check IVON this admission, r/o prostatitis currently with myles in place consider voiding trial continue alpha christina will he need I/O cathing at home?? (9) Atrial fibrillation: NSR on EKG cont xarelto for anticoagulation (10) Cardiac pacemaker in situ: noted (11) Hypokalemia: replace repeat level AM (12) DVT prophylaxis: xarelto PT, OT evals completed likely candidate to return home Subjective patient states he is feeling tired. however, he is no dyspnea. minimal cough. eating better today. reports he "used to self-cath" but was doing it seldomly in the last few months. denies any other complaints. Review of Systems Constitutional: + fatigue; no fever, no chills and no anorexia Respiratory: no cough and no dyspnea Cardiovascular: no chest pain Gastrointestinal: no abdominal pain, no nausea and no vomiting Physical Exam Constitutional: well developed and well nourished; no acute distress ENMT: external ear and nose normal, oropharynx normal Respiratory: normal respiratory effort, lungs clear to auscultation Cardiovascular: Rate/Rhythm: regular rate and regular rhythm Heart Sounds: normal S1 and normal S2 Vessels: posterior tibial pulses present and dorsalis pedis pulses present; no JVD Extremities: no edema Gastrointestinal (Abdomen): normal bowel sounds, soft, nontender, no hepatosplenomegaly Psychiatric: A+Ox3, euthymic affect Results & Data Vital Signs (Past 12 Hours) Vital Signs Temp Pulse Resp BP Pulse Ox 06/07/18 16:00 37.3 C 80 18 105/56 L 93 Laboratory Results Laboratory Results - last 24 hr 06/07/18 06/07/18 06/07/18 06:50 06:50 06:56 WBC 20.64 H RBC 3.75 L Hgb 10.9 L Hct 32.2 L MCV 85.9 MCH 29.1 MCHC 33.9 RDW Std Deviation 47.0 H RDW Coeff of [place] 14.9 H Plt Count 267 MPV 10.0 Immature Gran % (Auto) 0.2 Neut % (Auto) 85.7 Lymph % (Auto) 4.0 [place] % (Auto) 10.0 Eos % (Auto) 0.1 Baso % (Auto) 0.0 Immature Gran # (Auto) 0.04 H Neut # (Auto) 17.67 H Lymph # (Auto) 0.83 L [place] # (Auto) 2.07 H Eos # (Auto) 0.02 Baso # (Auto) 0.01 Sodium 136 Potassium 3.2 L Chloride 100 Carbon Dioxide 28 Anion Gap 8.0 BUN 15 Creatinine 1.21 D Est Cr Clr Drug Dosing 47.2 Est GFR ( Amer) 65.6 Est GFR (Non-Af Amer) 56.6 BUN/Creatinine Ratio 12.3 Glucose 124 H Calcium 8.6 Magnesium 2.2 Iron 16 L TIBC 244 L Transferrin 117 L Transferrin % Sat 10 L Ferritin 225.4 Vitamin B12 325 Folate 7.87 (1) UTI (urinary tract infection) Hematuria presence: without hematuria Urinary tract infection type: site unspecified Qualified Code(s): N39.0 - Urinary tract infection, site not specified (2) Atrial fibrillation Atrial fibrillation type: permanent Qualified Code(s): I48.2 - Chronic atrial fibrillation (3) Hypothyroidism Hypothyroidism type: acquired Qualified Code(s): E03.9 - Hypothyroidism, unspecified (4) CAD (coronary artery disease), [place] coronary artery Associated angina: without angina [place] vs. transplanted heart: [place] heart Qualified Code(s): I25.10 - Atherosclerotic heart disease of [place] coronary artery without angina pectoris (5) PNA (pneumonia) Laterality: right Lung location: middle lobe of lung Pneumonia type: due to unspecified organism Qualified Code(s): J18.1 - Lobar pneumonia, unspecified organism
[2018-06-07] MEDS ORDERED: CYANOCOBALAMIN 500 MCG TABLET (VITAMIN B-12) PO SCH (19:45)
[2018-06-07] MEDS: DONEPEZIL HCL 10 MG TAB PO SCH (21:28)
[2018-06-07] MEDS: cefTRIAXone SODIUM 1,000 MG in DEXTROSE 5% 50 ML IV SCH (21:28)
[2018-06-07] MEDS: SIMVASTATIN 80 MG TAB PO SCH (21:29)
--- OUTSIDE RECORDS SUMMARY | 2018-06-07 22:40 | External Medical Summary | Continuity of Care Document ---
:1940 Author Name Callie Mcadams, Provider Address Unavailable Unavailable , Care Team Providers Name Role Phone Chip RHODES, Celina Unavailable [email or web address] Jose Alfredo WORLEY, Trinh Unavailable [email or web address]. Simeon Paulson DO Unavailable [email or web address] Selwyn LOUIE, Mirian Mariano Unavailable [email or web address]. javier LOUIE, Mart Gordillo Unavailable [email or web address] Rubina Mcadams, Taran Talbert Unavailable [email or web address] Heather SAUNDERS M.D. Unavailable Unavailable HAILE Unavailable Unavailable NARTATEZ, A Unavailable Unavailable Unavailable Unavailable Unavailable Problems Dementia (294.20) (F03.90) Hypokalemia (276.8) (E87.6) BPH (benign prostatic hyperplasia) (600.00) (N40.0) Fatigue (780.79) (R53.83) Dyslipidemia (272.4) (E78.5) Coronary artery disease (414.00) (I25.10) Hypothyroidism (244.9) (E03.9) Atrial fibrillation (427.31) (I48.91) Depression (311) (F32.9) Hypertension (401.9) (I10) Anxiety (300.00) (F41.9) History of allergy to multiple drugs (V14.9) (Z88.9) Chronic back pain (724.5) (M54.9) Chronic pain (338.29) (G89.29) H/O sick sinus syndrome (V12.59) (Z86.79) History of [place] (myocardial infarction) (412) (I25.2) Acid reflux (530.81) (K21.9) Pacemaker (V45.01) (Z95.0) Arthritis (716.90) (M19.90) Anemia (285.9) (D64.9) Avascular necrosis of hip (733.42) (M87.059) Allergies and Adverse Reactions Captopril TABS (Allergy) Reaction: Swell ing Daypro TABS (Allergy) Reaction: Swelling Demadex TABS (Allergy) Reaction: Swellin g Iodine SOLN (Allergy) Reaction: Swelling Levaquin TABS (Allergy) Reaction: Swelli ng Morphine Derivatives (Allergy) Reaction: Swelling Sulfites (Allergy) Reaction: Swelling Medications Simvastatin 80 MG Oral Tablet; TAKE 1 TABLET DAILY DIRECTED. DO Celina Saunders Quantity: 90 Refills: 1 Gabapentin 300 MG Oral Capsule; Take 1 tablet daily LIBAN Wells Quantity: 90 Refills: 3 Donepezil HCl - 10 MG Oral Tablet; TAKE 1 TABLET Bedtime DO Celina Goldsmith Start: 09-Jun-2017 Quantity: 30 Refills: 5 hydroCHLOROthiazide 25 MG Oral Tablet; TAKE 1/2 TABLET DAILY . DO Celina Saunders Quantity: 45 Refills: 3 Carvedilol 3.125 MG Oral Tablet; TAKE 1 TABLET TWICE D AILY WITH MEALS. DO Celina Saunders Quantity: 60 Refills: 5 Nitroglycerin 0.4 MG/SPRAY Translingual Solution; USE 1 SPRAY UNDER THE TONGUE NEEDED FOR CHEST PAIN. Refills: 0 Tamsulosin HCl - 0.4 MG Oral Capsule; Take 1 tablet da MERI Blanc Quantity: 90 Refills: 3 Levothyroxine Sodium 100 MCG Oral Tablet; TAKE ONE TAB LET BY MOUTH EVERY DAY DO Celina Saunders Start: 27-May-2018 Quantity: 30 Refills: 4 Memantine HCl - 10 MG Oral Tablet; Take 1 tablet twice daily Pema Cespedes Start: 25-Nov-2017 Quantity: 60 Refills: 5 Calcium 600 TABS; TAKE 2 TABLETS DAILY. Refills: 0 traMADol HCl - 50 MG Oral Tablet; take 1-2 tablets as needed.continued therapy DO Celina Saunders Quantity: 90 Refills: 0 Bethanechol Chloride 50 MG Oral Tablet; Take 4 tablets daily MEIR Veliz Quantity: 360 Refills: 0 Isosorbide Mononitrate ER 60 MG Oral Tab let Extended Release 24 Hour; TAKE 1 TABLET DAILY DIRECTED. DO Celina Saunders Quantity: 30 Refills: 5 Xarelto 20 MG Oral Tablet; Take 1 tablet daily LIBAN Samano Quantity: 30 Refills: 5 Aspirin 81 MG TABS; TAKE 1 TABLET DAILY. Refills: 0 Stool Softener 100 MG Oral Tablet; TAKE 3 TABLETS DAILY Refills: 0 B-12 1000 MCG Sublingual Tablet Sublingual; PLACE 1 TA BLET Daily Chip Celina Start: 10-Aug-2017 Refills: 5 Citalopram Hydrobromide 10 MG Oral Tablet; Take 1 tabl et daily Jimmy Simeon Start: 15-Jan-2018 Quantity: 30 Refills: 5 EPINEPHrine 0.3 MG/0.3ML Injection Solut ion Auto-injector; INJECT 0.3ML INTRAMUSCULARLY DIRECTED. LIBAN Elliott Mart Gordillo Start: 15-Feb-2018 Quantity: 1 2 Pre-filled Pen Syr deb Pen Refills: 0 Procedures Basic Metabolic Panel Date: 03-Jun-2018 Magnesium Date: 03-Jun-2018 Auto Reticulocyte Date: 03-Jun-2018 CBC With DIFF Date: 03-Jun-2018 Ferritin Date: 03-Jun-2018 Iron and Transferrin Date: 03-Jun-2018 Serum Folates Date: 03-Jun-2018 Vitamin B12 Date: 03-Jun-2018 Fecal Occult Blood, Panel (3 Date: 03-Jun-2018 samples) History of Pacemaker Placement Status: C ompleted 13-Nov-2008 0:00 History of prostate resection Status: Co mpleted transurethral History of Back Surgery Status: Complete d History of coronary artery stent Status: Completed placement Comments: Completed: 1997 Immunizations Immunizations not documented Family History Father Family history of diabetes mellitus (V18.0) (Z83.3) Status: Active Mother Family history of cardiac disorder (V17.49) (Z82.49) Status: Active Family history of hypertension (V17.49) (Z82.49) Status: Act emma Brother Family history of seizures (V19.8) (Z84.89) Status: Active Social History - Smoking Status Former smoker Plan of Treatment Planned Encounters Appointment; Taran Cespedes M.D. Start: 07-Dec-2018 15:30 Req uest Planned Observations Planned Goals not documented Results CBC With DIFF Laboratory: [facility] Laboratory [address] [facility] [address] tel: 02-Jun-2018 13:51 WBC 11.70 K/uL (above high Range: 4.8-1 0.8 K/uL threshold) RBC 3.81 {M/uL} (below low Range: 4.7-6 .1 M/uL threshold) HEMOGLOBIN 10.9 g/dL (below low Range: 14.0-18.0 g/dL threshold) HEMATOCRIT 33.4 % (below low Range: 42- 52 % threshold) MCV 87.7 fL Range: 80-100 fL MCH 28.6 pg Range: 25-34 pg MEAN CORPUSCULAR HGB CONC 32.6 Range: 3 2-36 g/dL g/dL RED CELL DISTRIBUTION WIDTH SD Range: 3 6.4-46.3 fL 45.7 fL RED CELL DISTRIBUTION WIDTH CV Range: 1 1.5-14.5 % 14.3 % PLATELET COUNT 227 K/uL Range: 130-400 K/uL MEAN PLATELET VOLUME 10.7 fL Range: 7.4 -10.4 fL (above high threshold) NEUT % 71.1 % Range: % LYMPH % 15.2 % Range: % MONO % 11.6 % Range: % EOS % 1.5 % Range: % BASO % 0.2 % Range: % IG% 0.4 % Range: % Comments: IG paramet er reflects the combination of Metas, Myelos andPromyelocytes. Neutrophils (Auto) 8.32 K/uL Range: 1. 4-6.5 K/uL (above high threshold) LYMPH ABS # 1.78 K/uL Range: 1.2-3.4 K/ uL MONO ABS # 1.36 K/uL (above high Range: 0.11-0.59 K/uL threshold) EOS ABS # 0.17 K/uL Range: 0-0.5 K/uL BASO ABS # 0.02 K/uL Range: 0-0.2 K/uL IG# 0.05 K/uL (above high Range: 0.00-0 .02 K/uL threshold) Comp Metabolic Panel Laboratory: [facility] Laboratory [address] [facility] [address] tel: 02-Jun-2018 13:51 SODIUM 138 mmol/L Range: 136-145 mmol /L POTASSIUM 3.1 mmol/L (below low Range: 3.5-5.1 mmol/L threshold) CHLORIDE 100 mmol/L Range: 98-107 mmol/ L CARBON DIOXIDE 35 mmol/L (above Range: 21-32 mmol/L high threshold) ANION GAP 3.0 Range: 3-11 BLOOD UREA NITROGEN 11 mg/dl Range: 7-1 8 mg/dl CREATININE 1.08 mg/dl Range: 0.6-1.4 mg /dl Estimated GFR () Comment s: Units: ml/min per 75.3 1.73 meters squaredT he estimated GFR (CKD-E PI equation) has not be en validatedfor inpatie nt settings and may not be an accurate reflectiono f renal function in critical ly ill patients or those wi thrapidly changing renal funct ion (e.g. GIOVANY). Estimated GFR (Non- Comments: Uni ts: ml/min per [place]ian) 64.9 1.73 meters squaredT he estimated GFR (CKD-E PI equation) has not be en validatedfor inpatie nt settings and may not be an accurate reflectiono f renal function in critical ly ill patients or those wi thrapidly changing renal funct ion (e.g. GIOVANY). BUN/CREATININE RATIO 10.4 Range: 10-20 GLUCOSE 69 mg/dl (below low Range: 70-9 9 mg/dl threshold) CALCIUM 9.0 mg/dl Range: 8.5-10.1 mg/ dl Bilirubin, Total 0.3 mg/dl Range: 0.2-1 mg/dl AST/SGOT 14 U/L (below low Range: 15-37 U/L threshold) ALT/SGPT 17 U/L Range: 12-78 U/L TOTAL PROTEIN 6.9 {gm/dl} Range: 6.4-8. 2 gm/dl ALBUMIN 3.1 {gm/dl} (below low Range: 3 .4-5.0 gm/dl threshold) GLOBULIN 3.8 {gm/dl} Range: 2.5-4.0 gm/ dl ALB/GLOB RATIO 0.8 (below low Range: 0. 9-2 threshold) ALKALINE PHOSPHATASE 92 U/L Range: 45-1 17 U/L Lipid Profile - NON Laboratory: [facility] Laboratory [address] [address] tel: 02-Jun-2018 13:51 TRIGLYCERIDES 85 mg/dl Range: 0-150 mg/ dl Comments: TRIGLYCERI PEPITO Normal triglyceride: <150 mg/dl Borderline High: 150-199 mg/dl High: 200-499 mg/dl Very High: > or = 500 mg/dl CHOLESTEROL 77 mg/dl Range: 0-200 mg/dl Comments: TOTAL CHOL ESTEROL Desirable: <200 mg/dl Borderline High: 200-239 mg/dl High Cholesterol: > or = 240 mg/dl LDL CHOLESTEROL CALCULATED 19 Range: mg /dl mg/dl VERY LOW DENSITY LIPOPROT CALC 17 Range: mg/dl mg/dl HDL CHOLESTEROL 41 mg/dl Range: mg/dl Comments: Unable to flag abnormal result. Please refer tointerpretive data below:HDL CHOLESTEROL Low HDL: <40 mg/dl Normal: 40-60 mg/dl Desirable: >60 mg/dl CHOLESTEROL/HDL RATIO 2 Ultra TSH Laboratory: [facility] Laboratory [address] [facility] [place] [place] [address] tel: 02-Jun-2018 13:51 TSH 1.580 {uIu/ml} Range: 0.300-4.500 uIu/ml Comments: The refere nce range for TSH is 0.3-4.5 uIU/ml.Some have suggested that TSH levels >2.5 uIU/ml should beconsidered abnormal, particularly in potentially symptomaticyounger individuals.TSH levels in he althy elderly (>75 y ears of age) are oftenat or even above the reference range.Normal first trimester TSH <2.0 uIU/ml.Normal second and third trimester TSH <3.0 uIU/ml.TSH 0.5-2.0 uIU/ml is oft en considered the op timaltherapeutic target for replacement treatment ofhypothyroidism. CT Head w/o Contrast Laboratory: [facility] Diagnostic (Pending) Imaging [address] [facility] 05-Jun-2018 20:07 CT HEAD WITHOUT CONTRAST [facility], [place] [phone] CT Scan Report Patient: HAYES KING Admit Date: 06/05/18 MR#: [id number] Address1: [address] Acct ID:[id number] Address2: Date: 1940 [facility] Zip: [place] [address] Age: 78 Location: ED Sex: M Room/Bed: Att Phy: Diagnosis: confusion Tari Phy: Celina Saunders, Service Date: 06/05/18 [facility] Phy: Interpreting Phy: Trip Ramirez MD Admit Phy: Ordering Phy: Ronald Carver M.D. cc: CT head/brain wo con CT DOSE: 537.48 mGy.cm HISTORY: Mental status change ams TECHNIQUE: Multiaxial CT images of the head were performed without the use of intravenous contrast. A dose lowering technique was utilized adhering to the principles of ALARA. Comparison: None. Findings: The paranasal sinuses and mastoid air cells are clear. The calvarium and skull base are intact. The ventricles and sulci are within normal limits. There is no mass, hematoma, midline shift, or acute infarct. Findings of generalized atrophy and chronic small vessel change. Impression: No acute intracranial abnormality. Generalized atrophy and chronic small vessel change. The above report was generated using voice recognition software. It may contain grammatical, syntax or spelling errors. Electronically signed by: Trip Ramirez M.D. 06/05/2018 8:08 PM Dictated: 06/05/182006 Transcribed: 06/05/182006 X-Ray Chest 1 View Laboratory: [facility] Diagnostic Portable (Pending) Imaging [address] [place] [address] 05-Jun-2018 20:40 X-Ray Chest 1 VW Portable ([id number]) [place], [place] [phone] XRay Report Patient: HAYES KING Admit Date: 06/05/18 MR#: [id number] Address1: [address] Acct ID:[id number] Address2: Date: 1940 [facility] Zip: [place] [address] Age: 78 Location: ED Sex: M Room/Bed: Att Phy: Diagnosis: confusion Tari Phy: Celina Saunders, Service Date: 06/05/18 [facility] Phy: Interpreting Phy: Trip Ramirez MD Admit Phy: Ordering Phy: Ronald Carver M.D. cc: XR chest 1V portable CLINICAL HISTORY: ams dyspnea COMPARISON STUDY: No previous studies for comparison. FINDINGS: Permanent bipolar cardiac pacemaker. Minimal infiltrative process left base. Lungs otherwise appear clear. IMPRESSION: Minimal parenchymal infiltrate left base. The above report was generated using voice recognition software. It may contain grammatical, syntax or spelling errors. Electronically signed by: Trip Ramirez M.D. 06/05/2018 8:40 PM Dictated: 06/05/182039 Transcribed: 06/05/182039 X-ray Chest, PA and Laboratory: [facility] Diagnostic Lateral Routine Imaging [address] [facility] (Pending) [facility] 07-Jun-2018 14:30 CHEST 2 VIEWS ROUTINE [place], [place] [phone] XRay Report Patient: HAYES KING Admit Date: 06/05/18 MR#: [id number] Address1: [address] Acct ID:[id number] Address2: Date: 1940 [facility] Zip: [place] [address] Age: 78 Location: Sex: Room/Bed: [facility] Att Phy: Wilberto Wu MD Diagnosis: UT I, AMS, GIOVANY Tari Phy: Celina Saunders DO Service Date: 06/07/18 Fam Phy: Interpreting Phy: Trip Ramirez MD Admit Phy: Dominic Vargas M.D. Ordering Phy: Wilberto Wu MD cc: XR chest 2V routine CLINICAL HISTORY: ? LLL pneumonia ? Pneumonia COMPARISON STUDY: 06/05/2018 FINDINGS: Improved left basilar infiltrate. Trace pleural fluid left base. Study is otherwise unchanged. IMPRESSION: 1. Improved left basilar infiltrate. 2. Interval small left pleural effusion. The above report was generated using voice recognition software. It may contain grammatical, syntax or spelling errors. Electronically signed by: Trip Ramirez M.D. 06/07/2018 2:31 PM Dictated: 06/07/181429 Transcribed: 06/07/181429 Vital Signs 04-Jun-2018 15:10 Systolic 113 mm[Hg] Comments: Location: LUE; Position: Sitting Diastolic 67 mm[Hg] Comments: Location: LUE; Position: Sitting BMI Calculated 30.12 kg/m2 Weight 181 lb Height 65 in BSA Calculated 1.9 m2 O2 Saturation 96 % Heart Rate 80 /min 02-Jun-2018 13:16 Systolic 101 mm[Hg] Diastolic 66 mm[Hg] BMI Calculated 29.65 kg/m2 Weight 178.2 lb BSA Calculated 1.88 m2 O2 Saturation 96 % Comments: Source: RA Heart Rate 51 /min Respiration 14 /min 02-Jun-2018 13:08 Systolic 101 mm[Hg] Comments: Location: LUE; Position: Sitting Diastolic 66 mm[Hg] Comments: Location: LUE; Position: Sitting BMI Calculated 29.65 kg/m2 Weight 178.2 lb Height 65 in BSA Calculated 1.88 m2 O2 Saturation 96 % Comments: Source: RA Heart Rate 51 /min Respiration 14 /min Temperature 97.3 f Comments: Method: Or al Encounters Appointment; Taran Cespedes M.D. 04-Jun-2018 15:15 Encounter Diagnosis: Problem not documented Appointment; Celina Saunders DO 02-Jun-2018 13:00 Encounter Diagnosis: Problem not documented Appointment; Mart Elliott CRNP 14-Apr-2018 16:20 Encounter Diagnosis: Problem not documented Appointment; Mart Elliott CRNP 08-Mar-2018 16:20 Encounter Diagnosis: Problem not documented Appointment; Simeon Marquez DO 15-Jan-2018 13:40 Encounter Diagnosis: Problem not documented Appointment; Mart Elliott CRNP 04-Dec-2017 11:40 Encounter Diagnosis: Problem not documented Appointment; Celina Saunders DO 27-Nov-2017 13:00 Encounter Diagnosis: Problem not documented Appointment; Taran Cespedes M.D. 25-Nov-2017 13:00 Encounter Diagnosis: Problem not documented Appointment; Celina Saunders DO 20-Oct-2017 15:00 Encounter Diagnosis: Problem not documented Appointment; Celina Saunders DO 10-Aug-2017 11:00 Encounter Diagnosis: Problem not documented Appointment; Celina Saunders DO 26-Jun-2017 14:20 Encounter Diagnosis: Problem not documented Appointment; Celina Saunders DO 09-Jun-2017 15:20 Encounter Diagnosis: Problem not documented Appointment; Trinh Veliz PA-C 13-May-2017 10:00 Encounter Diagnosis: Problem not documented Appointment; Trinh Veliz PA-C 09-Mar-2017 16:00 Encounter Diagnosis: Problem not documented Appointment; Trinh Veliz PA-C 25-Nov-2016 14:30 Encounter Diagnosis: Problem not documented Appointment; Taran Cespedes M.D. 07-Dec-2018 15:30 Encounter Diagnosis: Problem not documented
[2018-06-08 06:21] LABS: Basophils # (auto) 0.01 K/uL (0-0.2); Basophils % (auto) 0.1 %; Eosinophils # (auto) 0.02 K/uL (0-0.5); Eosinophils % (auto) 0.1 %; Hematocrit (blood only) 34.1 % (42-52); Hemoglobin 11.4 g/dL (14.0-18.0); Immature Granulocytes # (auto) 0.07 K/uL (0.00-0.02); Immature Granulocytes % (auto) 0.4 %; Lymphocytes # (auto) 0.93 K/uL (1.2-3.4); Lymphocytes % (auto) 4.9 %; Mean Corpuscular Hgb Conc 33.4 g/dL (32-36); Mean Corpuscular Volume 86.3 fL (80-100); Mean Platelet Volume 10.1 fL (7.4-10.4); Monocytes % (auto) 7.3 %; Neutrophils # (auto) 16.74 K/uL (1.4-6.5); Neutrophils % (auto) 87.2 %; Platelet Count 320 K/uL (130-400); RDW Coefficient of Variation 14.9 % (11.5-14.5); RDW Standard Deviation 46.9 fL (36.4-46.3); Red Blood Count 3.95 M/uL (4.7-6.1); White Blood Count 19.17 K/uL (4.8-10.8)
[2018-06-08] MEDS: LEVOTHYROXINE SODIUM 100 MCG TABLET PO SCH (06:37)
[2018-06-08 06:57] LABS: BUN Creatinine Ratio 13.3 (10-20); Calcium 8.8 mg/dl (8.5-10.1); Creatinine Clr Calc Pharmacy 38.9 ml/min; Est GFR (African American) 51.8; Est GFR (Non-African American) 44.7; Potassium 4.1 mmol/L (3.5-5.1)
[2018-06-08] MEDS: CYANOCOBALAMIN 500 MCG TABLET (VITAMIN B-12) PO SCH (07:48)
[2018-06-08] MEDS: CITALOPRAM 20 MG TAB PO SCH (07:48)
[2018-06-08] MEDS: DOCUSATE SODIUM 100 MG CAP PO SCH (07:49)
[2018-06-08] MEDS: POTASSIUM CHLORIDE 10 MEQ TABCR PO SCH (07:49)
[2018-06-08] MEDS: CARVEDILOL 3.125 MG TAB PO SCH (07:49)
[2018-06-08] MEDS: BETHANECHOL CHL 25 MG TAB PO SCH ×3 (07:50→17:56)
[2018-06-08] MEDS: ISOSORBIDE MONO EXTENDED REL 30 MG TABCR PO SCH (07:50)
[2018-06-08] MEDS: TAMSULOSIN HCL 0.4 MG CAP PO SCH (07:50)
[2018-06-08] MEDS: GABAPENTIN 300 MG CAP PO SCH (07:50)
[2018-06-08] MEDS: MEMANTINE HCL 10 MG TAB PO SCH (07:50)
[2018-06-08] MEDS: ASPIRIN 81 MG ECTAB PO SCH (07:51)
[2018-06-08] MEDS ORDERED: AZITHROMYCIN 250 MG TAB PO SCH (09:00)
--- NOTE | 2018-06-08 10:38 | CT Scan Report ---
ABDOMEN AND PELVIS CT WITHOUT CONTRAST CT DOSE: 456.48 mGy.cm HISTORY: Acute urinary tract infection with concern for renal calculi. UTI, acute kidney injury, ray l for stone. TECHNIQUE: Multiaxial CT images of the abdomen and pelvis were performed without contrast. A dose lo wering technique was utilized adhering to the principles of ALARA. COMPARISON STUDY: None. FINDINGS: 4 mm solid nodule of the posterior basal segment right lower lobe, image 1 series 3 is partially imag ed. Small left pleural effusion with partially imaged left basilar consolidation and groundglass dens ities. Mild bronchiectasis of the posterior basal segment right lower lobe. There is no pneumatosis or pneumoperitoneum. Imaged inferior cardiac chambers are mildly enlarged. Co ronary arterial calcifications. Trace pericardial effusion. Prior cholecystectomy. Hepatic steatosis. Mild marginal nodularity of the liver is suggestive of prob able cirrhotic change. No intrahepatic biliary ductal dilation. Scattered calcified granulomata about the spleen. There is mild generalized pancreatic atrophy. Ureters are unremarkable. There is an ovoid structure about the interpolar right kidney measuring up to 2.9 x 3.4 cm demonstrat ing internal hyperdense material. Mild to moderate nonspecific right perinephric stranding without si gnificant hydronephrosis. No ureteral calculi identified. There is severe left-sided hydronephrosis w ith multiple cystic lesions about the left kidney. Layering hyperdense material is noted about the in terpolar left kidney posteriorly. Focal area of mural nodularity of the interpolar left kidney is not ed measuring up to 3.2 x 4.1 cm on image 29 series 2. Extensive left perinephric stranding. Left uret er appears normal in caliber. Decompressed bladder with Michel catheter in place. Air seen within the urinary bladder lumen along with urinary bladder wall thickening and perivesicular stranding. Moderat e fat filled bilateral inguinal hernias. Prosthetic devices about the penis. Extensive calcification of the aorta without aneurysm. No adenopathy identified. Mild nonspecific wal l thickening about the distal esophagus. There is no small bowel obstruction. Moderate formed colonic stool. Mild wall thickening of the rectum with mild perirectal stranding. Mild colonic diverticulosi s without acute diverticulitis. The appendix is not visualized, likely surgically absent. There is mi ld generalized body wall edema. Degenerative changes of the spine, pelvis and hips. Prior laminectomy changes at L5. Severe left hip osteoarthritis with pronounced subcortical cystic changes. Bony fusio n at L4-L5. IMPRESSION: 1. Severe left-sided hydronephrosis with multiple cystic lesions about the left kidney. Additionally, there is mural nodularity about the interpolar left kidney measuring up to approximately 3.2 cm with layering hyperdense material. Differential considerations would include UPJ obstruction with associa roderick proteinaceous material and/or hemorrhage within the renal collecting system versus obstructing ur othelial neoplasm. A follow-up CT urogram may be beneficial to further evaluate. Urology consultation recommended. 2. Mildly hyperdense cystic focus of the interpolar right kidney, 3.4 cm. Differential considerations would include a urothelial neoplasm with expansion of the renal pelvis, hemorrhage or debris within the renal pelvis or less likely a complex renal cyst. 3. No renal or ureteral calculi identified. 4. Suggested cystitis. 5. Constipation with mild rectal wall thickening and perirectal stranding suggestive of stercoral pro ctitis. 6. Small left pleural effusion with left basilar opacities suspicious for pneumonitis. 7. Additional findings as above. Dictated: 06/08/2018 10:13 AM Transcribed: 06/08/2018 10:38 AM [place] [id number] [facility] Electronically signed by: Renny Joshi M.D. 06/08/2018 10:56 AM
[2018-06-08] MEDS ORDERED: PIPERACILLIN/TAZOBACTAM 4.5 GM in DEXTROSE 5% 100 ML IV STA (15:32)
[2018-06-08] MEDS ORDERED: SODIUM CHLORIDE 0.9% 1000ML 1,000 ML IV ONE ×2 (15:32→16:30)
[2018-06-08 16:03] LABS: Base Excess VBG 3.1 mEq/L; HCO3 VBG 30 mmol/L; PCO2 VBG 55 mmHg (38-50); PO2 VBG 24 mmHg
[2018-06-08 16:05] LABS: Oxygen Saturation VBG < 60.0 %
[2018-06-08 16:07] LABS: pH VBG 7.35 (7.36-7.41)
--- NOTE | 2018-06-08 16:13 | Hospitalist Progress Note ---
Date of Service June 08, 2018 Assessment & Plan (1) Severe sepsis: Patient had presented with sepsis at time of admission due to UTI and LLL pneumonia. Appeared to be making slow recovery from such. Today the patient developed acute decompensation with altered MS, worsening BP, and lactic acidosis. SBP dropped to 70s/80s requiring multiple saline boluses. CT abd/pelvis this AM with b/l renal masses and left-sided, severe hydronephrosis consistent with obstruction likely from the renal mass. He emergently went to the OR with Dr Paula Epps from urology for left- sided stent placement followed by admission to the ICU. He received in total at least 3 saline boluses. Rocephin was broadened to zosyn in light of worsening status. Blood cultures obtained prior to Tx to the OR. Initial lactate was mildly high; repeat to be obtained within 6 hours. Cont IVF, IV abx, supportive care. Appreciate urology and critical care consultations. (2) Acute respiratory failure with hypercapnia: In setting of severe sepsis. Placed on BIPAP during his decompensation and remained on such through the afternoon today. Would continue until mental status improves and he is more stable. Present on Admission?: No (3) UTI (urinary tract infection): 2nd to morganella. day #4 of rocephin. despite the above he worsened clinically today with development of severe sep sis. rocephin broadened to zosyn; blood cx's obtained in midst of today's events. CT abd/pelvis w/ b/l renal masses and left-sided hydronephrosis s/p emergent left-sided stent placement by Dr. Epps. (4) Hydronephrosis: left-sided see above (5) Bilateral renal masses: family reports that patient underwent a cystoscopy in [place] sometime in the recent past. they could not give much in the way of details but did say they were told he "had a mass that needed to come out." he ultimately will need biopsy for definitive diagnosis. s/p stent placement on left today -- see discussion above. (6) PNA (pneumonia): LLL. day #4 of Rx. rocephin has been changed to zosyn in light of worsening status today. he has received 4 days of zithromax for atypical coverage as well. currently on BIPAP in midst of altered MS and acute hypercarbic resp failure. CT abd/pelvis today shows the LLL infiltrates. (7) Metabolic encephalopathy: 2nd to UTI and pneumonia in setting of severe sepsis and baseline dementia. (8) Acute kidney injury: POA. Had resolved then renal function worsened today as severe sepsis ensued. GIOVANY likely multifactorial including obstruction, hypotension/sepsis, etc. repeat BMP later tonight and then again in am. (9) Hypothyroidism: TSH compensated cont synthroid as is (10) CAD (coronary artery disease), [place] coronary artery: no ischemic sx's during the stay (11) HTN (hypertension), benign: holding all home BP meds due to hypotension (12) BPH w urinary obs/LUTS: holding alpha christina due to hypotension myles is in place (13) Atrial fibrillation: NSR on EKG holding xarelto in setting of CT findings and instrumentation (14) Cardiac pacemaker in situ: noted (15) Hypokalemia: resolved (16) DVT prophylaxis: scds holding xarelto /daughter extensively updated by phone today in midst of ICU transfer, surgery, etc Subjective during my initial rounds today the patient was quite sleepy. he was arousable and answered questions however he would quickly fall back asleep. staff report ongoing fatigue and poor appetite. the patient complained of vague foot pain. otherwise denied complaints. Review of Systems Review of Systems: Unobtainable due to cognitive status Physical Exam Constitutional: + ill appearing and + altered mental status; no acute distress ENMT: external ear and nose normal, oropharynx normal Respiratory: normal respiratory effort (but mild tachypnea noted) Auscultation: + crackles (fine, left base) Cardiovascular: Rate/Rhythm: regular rate and regular rhythm Heart Sounds: normal S1, normal S2 and + murmur (1/6 LSB) Vessels: posterior tibial pulses present and dorsalis pedis pulses present; no JVD Extremities: no edema Gastrointestinal (Abdomen): normal bowel sounds, soft, nontender, no hepatosplenomegaly Psychiatric: Orientation: + not alert and + not oriented x 3 lethargic Results & Data Vital Signs (Past 12 Hours) Vital Signs Temp Pulse Pulse Resp BP BP Pulse Ox 06/08/18 16:02 68 16 100 06/08/18 15:45 36.7 C 76 16 106/62 106/62 97 06/08/18 15:20 36.7 C 68 16 80/50 L 98 06/08/18 15:10 36.7 C 68 16 107/70 98/62 L 98 06/08/18 12:40 37.7 C H 90 18 98/62 L 97 06/08/18 07:21 37.3 C 84 16 144/[address] abd/pelvis- IMPRESSION: 1. Severe left-sided hydronephrosis with multiple cystic lesions about the left kidney. Additionally, there is mural nodularity about the interpolar left kidney measuring up to approximately 3.2 cm with layering hyperdense material. Differential considerations would include UPJ obstruction with associated proteinaceous material and/or hemorrhage within the renal collecting system versus obstructing urothelial neoplasm. A follow-up CT urogram may be beneficial to further evaluate. Urology consultation recommended. 2. Mildly hyperdense cystic focus of the interpolar right kidney, 3.4 cm. Differential considerations would include a urothelial neoplasm with expansion of the renal pelvis, hemorrhage or debris within the renal pelvis or less likely a complex renal cyst. 3. No renal or ureteral calculi identified. 4. Suggested cystitis. 5. Constipation with mild rectal wall thickening and perirectal stranding suggestive of stercoral proctitis. 6. Small left pleural effusion with left basilar opacities suspicious for pneumonitis. (1) UTI (urinary tract infection) Hematuria presence: without hematuria Urinary tract infection type: site unspecified Qualified Code(s): N39.0 - Urinary tract infection, site not specified (2) PNA (pneumonia) Laterality: right Lung location: middle lobe of lung Pneumonia type: due to unspecified organism Qualified Code(s): J18.1 - Lobar pneumonia, unspecified or ganism (3) Hypothyroidism Hypothyroidism type: acquired Qualified Code(s): E03.9 - Hypothyroidism, unspecified (4) CAD (coronary artery disease), [place] coronary artery [place] vs. transplanted heart: [place] heart Associated angina: without angina Qualified Code(s): I25.10 - Atherosclerotic heart disease of [place] coronary artery without angina pectoris (5) Atrial fibrillation Atrial fibrillation type: permanent Qualified Code(s): I48.2 - Chronic atrial fibrillation (6) Hydronephrosis Hydronephrosis type: unspecified Qualified Code(s): N13.30 - Unspecified hydronephrosis
[2018-06-08 16:14] LABS: Hematocrit (blood only) 30.5 % (42-52); Hemoglobin 10.2 g/dL (14.0-18.0); Mean Corpuscular Hgb Conc 33.4 g/dL (32-36); Mean Corpuscular Volume 86.2 fL (80-100); Mean Platelet Volume 9.6 fL (7.4-10.4); Platelet Count 271 K/uL (130-400); RDW Coefficient of Variation 15.2 % (11.5-14.5); RDW Standard Deviation 48.7 fL (36.4-46.3); Red Blood Count 3.54 M/uL (4.7-6.1); White Blood Count 32.17 K/uL (4.8-10.8)
[2018-06-08 16:18] LABS: Basophils # (auto) 0.01 K/uL (0-0.2); Immature Granulocytes # (auto) 0.31 K/uL (0.00-0.02); Lymphocytes % (auto) 1.9 %; Monocytes # (auto) 1.83 K/uL (0.11-0.59); Monocytes % (auto) 5.7 %; Neutrophils # (auto) 29.42 K/uL (1.4-6.5); Neutrophils % (auto) 91.4 %
[2018-06-08 16:19] LABS: BUN Creatinine Ratio 11.6 (10-20); Calcium 8.1 mg/dl (8.5-10.1); Creatinine Clr Calc Pharmacy 31.1 ml/min; Est GFR (African American) 39.5; Est GFR (Non-African American) 34.1
--- NOTE | 2018-06-08 16:28 | Urology Consultation ---
Date of Consultation June 08, 2018 Assessment & Plan (1) Metabolic encephalopathy: sepsis not responding to iv abt plan attempt at cysto left stent to drain any possible collections/obstruction in left kidney. prognosis grim I spoke with Patients by phone who gave me permission to do cysto and left stent placement. Pt being transferred to ICU Present on Admission?: Yes History of Present Illness Reason for Consultation: sepsis Requesting Physician: Dr Wu Attending Physician: Wilberto Wu History of Present Illness I am asked by Dr Wu to evaluate nd treat patient for sepsis. He was admitted with altered mental status and uti and pneumonia 2 day ago. He has been on culture specific abt for a morganella uti but has not improved. Today he worsened and CT scan shows some complex processes in kidney with lots inflammatory stranding. No dye to hard to say if there is hydro or parapelvic cysts. He has mild baseline dementia but is obtunded currently. Allergies Allergy/AdvReac Type Severity Reaction Status Date / Time captopril Allergy Severe ANAPHYLAXIS Verified 07/28/17 10:55 Iodinated Contrast- Oral and Allergy Severe ANAPHYLAXIS Verified 07/28/17 10:55 IV Dye levofloxacin Allergy Severe ANAPHYLAXIS Verified 07/28/17 10:55 oxaprozin Allergy Severe ANAPHYLAXIS Verified 07/28/17 10:55 torsemide Allergy Severe ANAPHYLAXIS Verified 07/28/17 10:55 hydrocodone Allergy Mild RASH Verified 07/28/17 10:55 morphine Allergy Unknown UNKNOWN Verified 07/28/17 10:55 Sulfa (Sulfonamide Allergy Unknown UNKNOWN Verified 07/28/17 10:55 Antibiotics) Home Medications Home Medications Medication Instructions Recorded Confirmed Type aspirin [Aspir-81] 81 mg PO DAILY 06/05/18 06/05/18 History bethanechol chloride [Urecholine] 50 mg PO QID 06/05/18 06/05/18 History calcium carbonate [Calcium 600] 1,200 mg PO DAILY 06/05/18 06/05/18 History carvedilol [Coreg] 3.125 mg PO BID 06/05/18 06/05/18 History citalopram [Celexa] 10 mg PO DAILY 06/05/18 06/05/18 History cyanocobalamin (vitamin B-12) 1,000 mcg PO DAILY 06/05/18 06/05/18 History [Vitamin B-12] docusate sodium [Stool Softener] 300 mg PO DAILY 06/05/18 06/05/18 History donepezil 10 mg PO HS 06/05/18 06/05/18 History epinephrine [EpiPen] 0.3 mg IM UD PRN 06/05/18 06/05/18 History gabapentin 300 mg PO DAILY 06/05/18 06/05/18 History hydrochlorothiazide 12.5 mg PO DAILY 06/05/18 06/05/18 History isosorbide mononitrate 30 mg PO DAILY 06/05/18 06/05/18 History levothyroxine 100 mcg PO DAILY 06/05/18 06/05/18 History memantine [Namenda] 10 mg PO BID 06/05/18 06/05/18 History nitroglycerin [Nitromist] 1 spray SUBLINGUAL UD PRN 06/05/18 06/05/18 History rivaroxaban [Xarelto] 20 mg PO DAILY 06/05/18 06/05/18 History simvastatin 80 mg PO PM 06/05/18 06/05/18 History tamsulosin 0.4 mg PO DAILY 06/05/18 06/05/18 History tramadol 50 - 100 mg PO DAILY PRN 06/05/18 06/05/18 History Patient History Medical History Afib (Resolved) Family History Other No significant family history Social History Preferred Language: Turkish Communication Ability: Effective Beliefs That Will Affect Care: None Current Living Situation: Spouse Feels Safe at Home: Yes Smoking Status: Former smoker Hx Alcohol Use: No Hx Substance Use: No Review of Systems Review of Systems: PMH- mild dementia, urinary retention a fib on xaralto HTN PSH- malleable penile prosthesis Soc- retired, has daughter lives locally ROS- patient is obtunded and septic, cannot answer any questions. Physical Exam Constitutional: well developed, + acute distress, + altered mental status and + lethargic on cpap with air leak, Skin: ashen color to skin warm no rash Neurologic: responsive to pain, does not answer questions or open eyes Genitourinary: myles in place draining scant concentrated urine, penile malleable prosthesis in place without any genital cellulitis or fluid collections, seems normally positioned. Results & Data Vital Signs (Past 12 Hours) Vital Signs Temp Pulse Pulse Resp BP BP Pulse Ox 06/08/18 16:02 68 16 100 06/08/18 16:00 74 16 90/60 L 98 06/08/18 15:45 36.7 C 76 16 106/62 106/62 97 06/08/18 15:20 36.7 C 68 16 80/50 L 98 06/08/18 15:10 36.7 C 68 16 107/70 98/62 L 98 06/08/18 12:40 37.7 C H 90 18 98/62 L 97 06/08/18 07:21 37.3 C 84 16 144/74 H 92
--- NOTE | 2018-06-08 16:29 | History & Physical Bridge Note ---
Date of Service June 08, 2018 History & Physical Bridge Note Called by nursing staff that patient was diaphoretic, altered and had temperature of 37.8 degrees early this afternoon. Upon arrival he was arousable and could answer basic questions but quickly fell asleep during my assessment. I left the room to place orders including a saline bolus as his most recent BP was low. Within a few minutes after leaving the room the pt's nurse found me in the charting room and told me his BP was now 80 systolic and he was even more lethargic. I reassessed him and indeed he was more lethargic than 20 minutes prior. I had spoken to [facility] earlier in the day re: his CT abd/pelvis showing severe left-sided hydronephrosis and b/l masses and need for consultation. I then spoke with Dr Epps from [facility] who was covering unassigned call; we discussed his case and both agreed that emergent left-sided ureteral stent placement was indicated in the setting of his sepsis. After speaking with Dr. Epps I then called his /daughter -- explained to them the situation and that he needed emergent cystoscopy with probable stent placement in light of what was going on. They said "do whatever he needs." They confirmed full code status. They mentioned he had "some sort of procedure in [place]" (they thought a cystoscopy) and were told "he had a mass that needed to come out" [from the kidney]. Following this call I spoke with the ICU staff and Dr. Lewis about severe sepsis, CT findings, need for cysto/stent, etc. Additional measures taken - 2 L saline boluses. BIPAP. 2nd IV placed. Labs. Imp - severe sepsis/early septic shock 2nd to UTI and obstructing left-sided renal mass (suspected). Metaboblic encephalopathy 2nd to above. Early acute hypercarbic resp failure 2nd to above. Plan - emergent cysto/stent placement by Dr. Epps. BIPAP. Could potentially need intubation. ICU following OR. Total critical care time -- 90 minutes. Wilberto Wu MD
--- NOTE | 2018-06-08 16:34 | Anesthesiology Consultation ---
Date of Service June 08, 2018 Assessment & Plan (1) Encounter for pre-operative examination: Chart Review Chart Review: Acceptable Risk for Surgery and Patient NOT seen in Pre Admission Testing Consults Requested none History Surgery Operation Date: 06/08/18 17:50 Proposed Procedures p Left Stent, Cystoscopy - Paula Epps MD Height/Weight Height: 5 ft 4 in Weight: 79.8 kg Allergies Allergy/AdvReac Type Severity Reaction Status Date / Time captopril Allergy Severe ANAPHYLAXIS Verified 07/28/17 10:55 Iodinated Contrast- Oral and Allergy Severe ANAPHYLAXIS Verified 07/28/17 10:55 IV Dye levofloxacin Allergy Severe ANAPHYLAXIS Verified 07/28/17 10:55 oxaprozin Allergy Severe ANAPHYLAXIS Verified 07/28/17 10:55 torsemide Allergy Severe ANAPHYLAXIS Verified 07/28/17 10:55 hydrocodone Allergy Mild RASH Verified 07/28/17 10:55 morphine Allergy Unknown UNKNOWN Verified 07/28/17 10:55 Sulfa (Sulfonamide Allergy Unknown UNKNOWN Verified 07/28/17 10:55 Antibiotics) Medications Home Medications Medication Instructions Recorded Confirmed Last Taken aspirin [Aspir-81] 81 mg PO DAILY 06/05/18 06/05/18 Unknown bethanechol chloride [Urecholine] 50 mg PO QID 06/05/18 06/05/18 Unknown calcium carbonate [Calcium 600] 1,200 mg PO DAILY 06/05/18 06/05/18 Unknown carvedilol [Coreg] 3.125 mg PO BID 06/05/18 06/05/18 Unknown citalopram [Celexa] 10 mg PO DAILY 06/05/18 06/05/18 Unknown cyanocobalamin (vitamin B-12) 1,000 mcg PO DAILY 06/05/18 06/05/18 Unknown [Vitamin B-12] docusate sodium [Stool Softener] 300 mg PO DAILY 06/05/18 06/05/18 Unknown donepezil 10 mg PO HS 06/05/18 06/05/18 Unknown epinephrine [EpiPen] 0.3 mg IM UD PRN 06/05/18 06/05/18 Unknown gabapentin 300 mg PO DAILY 06/05/18 06/05/18 Unknown hydrochlorothiazide 12.5 mg PO DAILY 06/05/18 06/05/18 Unknown isosorbide mononitrate 30 mg PO DAILY 06/05/18 06/05/18 Unknown levothyroxine 100 mcg PO DAILY 06/05/18 06/05/18 Unknown memantine [Namenda] 10 mg PO BID 06/05/18 06/05/18 Unknown nitroglycerin [Nitromist] 1 spray SUBLINGUAL UD PRN 06/05/18 06/05/18 Unknown rivaroxaban [Xarelto] 20 mg PO DAILY 06/05/18 06/05/18 Unknown simvastatin 80 mg PO PM 06/05/18 06/05/18 Unknown tamsulosin 0.4 mg PO DAILY 06/05/18 06/05/18 Unknown tramadol 50 - 100 mg PO DAILY PRN 06/05/18 06/05/18 Unknown Active Medications Generic Name Dose Route Start Last Admin Trade Name Ulisesq PRN Reason Stop Dose Admin Acetaminophen 650 mg 06/05/18 21:40 06/08/18 12:56 Tylenol PO 07/05/18 21:39 650 mg Q4H PRN Administration pain/fever Aspirin 81 mg 06/06/18 09:00 06/08/18 07:51 Ecotrin Ectab PO 07/06/18 08:59 81 mg DAILY FLEX Administration Bethanechol Chloride 50 mg 06/06/18 09:00 06/08/18 12:57 Urecholine PO 07/06/18 08:59 Not Given QID FLEX Carvedilol 3.125 mg 06/06/18 09:00 06/08/18 07:49 Coreg PO 07/06/18 08:59 3.125 mg BID FLEX Administration Citalopram Hydrobromide 10 mg 06/06/18 09:00 06/08/18 07:48 Celexa PO 07/06/18 08:59 10 mg DAILY FLEX Administration Cyanocobalamin 1,000 mcg 06/06/18 09:00 06/08/18 07:48 Vitamin B-12 PO 07/06/18 08:59 1,000 mcg DAILY FLEX Administration Docusate Sodium 300 mg 06/06/18 09:00 06/08/18 07:49 Colace PO 07/06/18 08:59 300 mg DAILY FLEX Administration Donepezil HCl 10 mg 06/06/18 21:00 06/07/18 21:28 Aricept PO 07/06/18 20:59 10 mg HS FLEX Administration Gabapentin 300 mg 06/06/18 09:00 06/08/18 07:50 Neurontin PO 07/06/18 08:59 300 mg DAILY FLEX Administration Isosorbide Mononitrate 30 mg 06/06/18 09:00 06/08/18 07:50 Imdur Extended Rel PO 07/06/18 08:59 30 mg DAILY FLEX Administration Levothyroxine Sodium 100 mcg 06/06/18 06:30 06/08/18 06:37 Synthroid PO 07/06/18 06:29 100 mcg DAILYBB FLEX Administration Memantine 10 mg 06/06/18 09:00 06/08/18 07:50 Namenda PO 07/06/18 08:59 10 mg BID FLEX Administration Potassium Chloride 20 meq 06/07/18 14:00 06/08/18 07:49 Klor-Con M10 PO 07/07/18 13:59 20 meq BID FLEX Administration Rivaroxaban 15 mg 06/06/18 16:30 06/07/18 16:32 Xarelto PO 07/06/18 16:29 15 mg QDD FLEX Administration Simvastatin 80 mg 06/06/18 21:00 06/07/18 21:29 Zocor PO 07/06/18 20:59 80 mg PM FLEX Administration Tamsulosin HCl 0.4 mg 06/06/18 09:00 06/08/18 07:50 Flomax PO 07/06/18 08:59 0.4 mg DAILY FLEX Administration Past Medical History Medical History Encounter for pre-operative examination Metabolic encephalopathy (Acute) Hypokalemia Anemia Cardiac pacemaker in situ Atrial fibrillation Mild cognitive impairment HTN (hypertension), benign Hyperlipidemia Hypothyroidism CAD (coronary artery disease), [place] coronary artery Hypoxia (Acute) Altered mental status (Acute) UTI (urinary tract infection) (Acute) PNA (pneumonia) (Acute) Acute kidney injury (Acute) Afib (Resolved) Exercise / Class Metabolic Activity III < 4 Walking/Shop/Light housework Past Family History Family History Other No significant family history Past Surgical History Surgical History H/O total knee replacement History of lumbar fusion History of PONV No Hx of PONV, No Family Hx of PONV and No Hx of Motion Sickness Social History Smoking Status: Former smoker Hx Alcohol Use: No Hx Substance Use: No Physical Exam Vital Signs Last Vital Signs Temp 36.7 C 06/08/18 15:45 Pulse 68 06/08/18 16:02 Resp 16 06/08/18 16:02 BP 90/60 L 06/08/18 16:00 Pulse Ox 100 06/08/18 16:02 Testing Electrocardiogram Date: 06/05/18 Findings: + NSR @ (78) Normal sinus rhythm Left axis deviation Nonspecific T wave abnormality Abnormal ECG No previous ECGs available Confirmed by Gene Cramer ([id number]) on 06/06/2018 3:24:51 PM Chest X-Ray Date: 06/07/18 XR chest 2V routine CLINICAL HISTORY: ? LLL pneumonia ? Pneumonia COMPARISON STUDY: 06/05/2018 FINDINGS: Improved left basilar infiltrate. Trace pleural fluid left base. Study is otherwise unchanged. IMPRESSION: 1. Improved left basilar infiltrate. 2. Interval small left pleural effusion. Other Testing 1. Severe left-sided hydronephrosis with multiple cystic lesions about the left kidney. Additionally, there is mural nodularity about the interpolar left kidney measuring up to approximately 3.2 cm with layering hyperdense material. Differential considerations would include UPJ obstruction with associated proteinaceous material and/or hemorrhage within the renal collecting system versus obstructing urothelial neoplasm. A follow-up CT urogram may be beneficial to further evaluate. Urology consultation recommended. 2. Mildly hyperdense cystic focus of the interpolar right kidney, 3.4 cm. Differential considerations would include a urothelial neoplasm with expansion of the renal pelvis, hemorrhage or debris within the renal pelvis or less likely a complex renal cyst. 3. No renal or ureteral calculi identified. 4. Suggested cystitis. 5. Constipation with mild rectal wall thickening and perirectal stranding mcallister ggestive of stercoral proctitis. 6. Small left pleural effusion with left basilar opacities suspicious for pneumonitis. Laboratory Results 06/08/18 15:37 06/08/18 15:37 PT 13.3 Seconds (9.0-12.0) H 06/05/18 20:32 INR 1.3 (0.9-1.1) H 06/05/18 20:32 APTT 28.8 Seconds (21.0-31.0) 06/05/18 20:32 Urine Color Dark Yellow 06/05/18 19:54 Urine Appearance Cloudy (Clear) H 06/05/18 19:54 Urine pH 6.5 (4.5-7.5) 06/05/18 19:54 Ur Specific [place] 1.021 (1.000-1.030) 06/05/18 19:54 Urine Protein 2+ (Negative) H 06/05/18 19:54 Urine Glucose (UA) Negative (Negative) 06/05/18 19:54 Urine Ketones Negative (Negative) 06/05/18 19:54 Urine Nitrite Positive (Negative) H 06/05/18 19:54 Ur Leukocyte Esterase 2+ (Negative) H 06/05/18 19:54 Urine WBC (Auto) >30 /hpf (0-5) H 06/05/18 19:54 Urine RBC (Auto) 0-4 /hpf (0-4) 06/05/18 19:54 U Hyaline Cast (Auto) 1-5 /lpf (0-5) 06/05/18 19:54 U Epithel Cells (Auto) 20-30 /lpf (0-5) H 06/05/18 19:54 Urine Bacteria (Auto) 3+ (Negative) H 06/05/18 19:54 06/05/18 19:54 Urine Culture - Final Urine,Indwelling Cath Morganella morganii 06/08/18 06/08/18 15:35 12:41 POC Glucose 160 H 129 H
[2018-06-08] MEDS ORDERED: PROPOFOL IV EMULSION 10 MG/ML 20 ML VIAL IV ONE (16:37)
[2018-06-08] MEDS ORDERED: LIDOCAINE HCL 2% 2 ML VIAL/AMP(20MG/ML) INFIL ONE (16:37)
[2018-06-08] MEDS ORDERED: MIDAZOLAM HCL 1 MG/ML 2ML VIAL ONE (16:38)
[2018-06-08] MEDS ORDERED: fentaNYL citrate 100 MCG/2 ML VIAL ONE (16:38)
--- NOTE | 2018-06-08 16:43 | Anesthesiology Consultation ---
Date of Service June 08, 2018 Assessment & Plan (1) Encounter for pre-operative examination: Chart Review Chart Review: Acceptable Risk for Surgery and Patient NOT seen in Pre Admission Testing Consults Requested none ASA [id number] History Surgery Operation Date: 06/08/18 17:50 Proposed Procedures p Left Stent, Cystoscopy - Paula Epps MD Height/Weight Height: 5 ft 4 in Weight: 79.8 kg Allergies Allergy/AdvReac Type Severity Reaction Status Date / Time captopril Allergy Severe ANAPHYLAXIS Verified 07/28/17 10:55 Iodinated Contrast- Oral and Allergy Severe ANAPHYLAXIS Verified 07/28/17 10:55 IV Dye levofloxacin Allergy Severe ANAPHYLAXIS Verified 07/28/17 10:55 oxaprozin Allergy Severe ANAPHYLAXIS Verified 07/28/17 10:55 torsemide Allergy Severe ANAPHYLAXIS Verified 07/28/17 10:55 hydrocodone Allergy Mild RASH Verified 07/28/17 10:55 morphine Allergy Unknown UNKNOWN Verified 07/28/17 10:55 Sulfa (Sulfonamide Allergy Unknown UNKNOWN Verified 07/28/17 10:55 Antibiotics) Medications Home Medications Medication Instructions Recorded Confirmed Last Taken aspirin [Aspir-81] 81 mg PO DAILY 06/05/18 06/05/18 Unknown bethanechol chloride [Urecholine] 50 mg PO QID 06/05/18 06/05/18 Unknown calcium carbonate [Calcium 600] 1,200 mg PO DAILY 06/05/18 06/05/18 Unknown carvedilol [Coreg] 3.125 mg PO BID 06/05/18 06/05/18 Unknown citalopram [Celexa] 10 mg PO DAILY 06/05/18 06/05/18 Unknown cyanocobalamin (vitamin B-12) 1,000 mcg PO DAILY 06/05/18 06/05/18 Unknown [Vitamin B-12] docusate sodium [Stool Softener] 300 mg PO DAILY 06/05/18 06/05/18 Unknown donepezil 10 mg PO HS 06/05/18 06/05/18 Unknown epinephrine [EpiPen] 0.3 mg IM UD PRN 06/05/18 06/05/18 Unknown gabapentin 300 mg PO DAILY 06/05/18 06/05/18 Unknown hydrochlorothiazide 12.5 mg PO DAILY 06/05/18 06/05/18 Unknown isosorbide mononitrate 30 mg PO DAILY 06/05/18 06/05/18 Unknown levothyroxine 100 mcg PO DAILY 06/05/18 06/05/18 Unknown memantine [Namenda] 10 mg PO BID 06/05/18 06/05/18 Unknown nitroglycerin [Nitromist] 1 spray SUBLINGUAL UD PRN 06/05/18 06/05/18 Unknown rivaroxaban [Xarelto] 20 mg PO DAILY 06/05/18 06/05/18 Unknown simvastatin 80 mg PO PM 06/05/18 06/05/18 Unknown tamsulosin 0.4 mg PO DAILY 06/05/18 06/05/18 Unknown tramadol 50 - 100 mg PO DAILY PRN 06/05/18 06/05/18 Unknown Active Medications Generic Name Dose Route Start Last Admin Trade Name Ulisesq PRN Reason Stop Dose Admin Acetaminophen 650 mg 06/05/18 21:40 06/08/18 12:56 Tylenol PO 07/05/18 21:39 650 mg Q4H PRN Administration pain/fever Aspirin 81 mg 06/06/18 09:00 06/08/18 07:51 Ecotrin Ectab PO 07/06/18 08:59 81 mg DAILY FLEX Administration Bethanechol Chloride 50 mg 06/06/18 09:00 06/08/18 12:57 Urecholine PO 07/06/18 08:59 Not Given QID FLEX Carvedilol 3.125 mg 06/06/18 09:00 06/08/18 07:49 Coreg PO 07/06/18 08:59 3.125 mg BID FLEX Administration Citalopram Hydrobromide 10 mg 06/06/18 09:00 06/08/18 07:48 Celexa PO 07/06/18 08:59 10 mg DAILY FLEX Administration Cyanocobalamin 1,000 mcg 06/06/18 09:00 06/08/18 07:48 Vitamin B-12 PO 07/06/18 08:59 1,000 mcg DAILY FLEX Administration Docusate Sodium 300 mg 06/06/18 09:00 06/08/18 07:49 Colace PO 07/06/18 08:59 300 mg DAILY FLEX Administration Donepezil HCl 10 mg 06/06/18 21:00 06/07/18 21:28 Aricept PO 07/06/18 20:59 10 mg HS FLEX Administration Gabapentin 300 mg 06/06/18 09:00 06/08/18 07:50 Neurontin PO 07/06/18 08:59 300 mg DAILY FLEX Administration Sodium Chloride 1,000 mls @ 999 mls/hr 06/08/18 16:30 06/08/18 16:33 Nss 1000ml IV 06/08/18 17:30 999 mls/hr .Q1H1M ONE Administration Isosorbide Mononitrate 30 mg 06/06/18 09:00 06/08/18 07:50 Imdur Extended Rel PO 07/06/18 08:59 30 mg DAILY FLEX Administration Levothyroxine Sodium 100 mcg 06/06/18 06:30 06/08/18 06:37 Synthroid PO 07/06/18 06:29 100 mcg DAILYBB FLEX Administration Memantine 10 mg 06/06/18 09:00 06/08/18 07:50 Namenda PO 07/06/18 08:59 10 mg BID FLEX Administration Potassium Chloride 20 meq 06/07/18 14:00 06/08/18 07:49 Klor-Con M10 PO 07/07/18 13:59 20 meq BID FLEX Administration Rivaroxaban 15 mg 06/06/18 16:30 06/07/18 16:32 Xarelto PO 07/06/18 16:29 15 mg QDD FLEX Administration Simvastatin 80 mg 06/06/18 21:00 06/07/18 21:29 Zocor PO 07/06/18 20:59 80 mg PM FLEX Administration Tamsulosin HCl 0.4 mg 06/06/18 09:00 06/08/18 07:50 Flomax PO 07/06/18 08:59 0.4 mg DAILY FLEX Administration Past Medical History Medical History Encounter for pre-operative examination Metabolic encephalopathy (Acute) Hypokalemia Anemia Cardiac pacemaker in situ Atrial fibrillation Mild cognitive impairment HTN (hypertension), benign Hyperlipidemia Hypothyroidism CAD (coronary artery disease), [place] coronary artery Hypoxia (Acute) Altered mental status (Acute) UTI (urinary tract infection) (Acute) PNA (pneumonia) (Acute) Acute kidney injury (Acute) Afib (Resolved) Past Family History Family History Other No significant family history Past Surgical History Surgical History H/O total knee replacement History of lumbar fusion Social History Smoking Status: Former smoker Hx Alcohol Use: No Hx Substance Use: No Physical Exam Vital Signs Last Vital Signs Temp 36.7 C 06/08/18 15:45 Pulse 68 06/08/18 16:02 Resp 16 06/08/18 16:02 BP 90/60 L 06/08/18 16:00 Pulse Ox 100 06/08/18 16:02 Testing Electrocardiogram Date: 06/05/18 Findings: + NSR @ (78) Normal sinus rhythm Left axis deviation Nonspecific T wave abnormality Abnormal ECG No previous ECGs available Confirmed by Gene Cramer ([id number]) on 06/06/2018 3:24:51 PM Laboratory Results 06/08/18 15:37 06/08/18 15:37 PT 13.3 Seconds (9.0-12.0) H 06/05/18 20:32 INR 1.3 (0.9-1.1) H 06/05/18 20:32 APTT 28.8 Seconds (21.0-31.0) 06/05/18 20:32 Urine Color Dark Yellow 06/05/18 19:54 Urine Appearance Cloudy (Clear) H 06/05/18 19:54 Urine pH 6.5 (4.5-7.5) 06/05/18 19:54 Ur Specific [place] 1.021 (1.000-1.030) 06/05/18 19:54 Urine Protein 2+ (Negative) H 06/05/18 19:54 Urine Glucose (UA) Negative (Negative) 06/05/18 19:54 Urine Ketones Negative (Negative) 06/05/18 19:54 Urine Nitrite Positive (Negative) H 06/05/18 19:54 Ur Leukocyte Esterase 2+ (Negative) H 06/05/18 19:54 Urine WBC (Auto) >30 /hpf (0-5) H 06/05/18 19:54 Urine RBC (Auto) 0-4 /hpf (0-4) 06/05/18 19:54 U Hyaline Cast (Auto) 1-5 /lpf (0-5) 06/05/18 19:54 U Epithel Cells (Auto) 20-30 /lpf (0-5) H 06/05/18 19:54 Urine Bacteria (Auto) 3+ (Negative) H 06/05/18 19:54 06/05/18 19:54 Urine Culture - Final Urine,Indwelling Cath Morganella morganii 06/08/18 06/08/18 15:35 12:41 POC Glucose 160 H 129 H
[2018-06-08] MEDS ORDERED: ALBUMIN HUMAN 5% 12.5 GM/250 ML VIAL IV ONE (16:44)
[2018-06-08] MEDS ORDERED: KETAMINE HCL INJ 50 MG/ML 10 ML VIAL ONE (16:44)
[2018-06-08] MEDS ORDERED: ePHEDrine sulfate 50 MG/ML AMP IV PRN (16:52)
[2018-06-08] MEDS ORDERED: IOTHALAMATE MEGLUMINE II 17.2% 250 ML VIAL ONE (16:52)
[2018-06-08] MEDS ORDERED: ATROPINE SULFATE 0.1 MG/ML 10ML SYR IV PRN (16:52)
--- NOTE | 2018-06-08 17:33 | Fluoroscopy Report ---
FL KUB CLINICAL HISTORY: LEFT CYSTO/STENT COMPARISON STUDY: None FLUOROSCOPY TIME: 2 minutes 25 seconds NUMBER OF FLUOROSCOPIC IMAGES: 3 FINDINGS: Fluoroscopic assistance provided for a left ureteral stent placement. IMPRESSION: Fluoroscopic assistance provided for a left ureteral stent placement. The above report was generated using voice recognition software. It may contain grammatical, syntax or spelling errors. Electronically signed by: Trip Ramirez M.D. 06/08/2018 5:32 PM
--- NOTE | 2018-06-08 17:44 | Operative Report ---
Post Operative Report Pre & Post Diagnosis Operation Date: 06/08/18 17:50 Pre-Op Diagnosis: sepsis, left hydronephrosis Post-Op Diagnosis: sepsis Procedure Operation Date: 06/08/18 17:50 Actual Procedures p Cystoscopy; Left Ureteral Stent Placement(Left) - Paula Epps MD Surgeon Paula Epps MD Plane Tender none Estimated Blood Loss 2 Findings Consistent with Post-Op Diagnosis cloudy efflux from left ureter after stent placement Fluids 100 Specimens none Drains 6 fr 26 centimeter double J stent Anesthesia Type MAC Complications none Disposition Accompanied Patient To Recovery: Yes Disposition: Surgical ICU Indications sepsis with left hydro and inflammatory changes around left kidney. Not responding to iv abt, plan stent to possibly relieve infected hydro on left side. Description of Procedure Patient was intensively monitored by anesthesia for ongoing respiratory distress and placed in lithotomy position. I performed a IVON and feel no mass and no spongy tisseu to suggest abscess. His genitals were prepped and draped in sterile fashion. Time out held with team. I placed a 21 fr rigid cystoscope to bladder. The urethra is unremarkable. I looked carefully and see no urethral lacerations and no foreign body thus no erosion of the penile prosthesis. The prostate is absent. The UOs are laterally displaced and slit configuration. I placed a road runner wire up left ureter and it took some manipulation to get past the upj. He is osteopenic so bone landmarks are hard to see on fluoro. he is allergic to dye (anaphylaxis) so I cannot perform a retrograde pyelogram. I see increased cloudy and old bloody efflux from the left uO after wire placement but nothing under high pressure. I placed a 26 centimeter 6 Fr double J stent easily with 2 coils in the kidney and one coil in the bladder. There is medium brisk efflux of cloudy fluid after placement. I replaced a 18 fr coude myles and inflated balloon with 10mL of water and connected him to gravity drainage. I concluded case. He transferred to ICU under my escort, in stable condition. Plan: keep stent and myles until stabilized. will need left ureteroscopy in future to investigate left renal mass. ASA 4e dirty case 49 seconds fluoro zosyn antibiotic fashion consultant selling I attest to the content of the Intraoperative Record and any orders documented therein. Any exceptions are noted below.
[2018-06-08] MEDS: SODIUM CHLORIDE 0.9% 500 ML IV SCH (17:58)
--- NOTE | 2018-06-08 17:59 | Critical Care Consultation ---
Date of Consultation June 08, 2018 Assessment & Plan (1) Sepsis due to urinary tract infection: Reason Critically Ill: 78-year-old male here with a PMHx significant for HTN, BPH, Afib on Xarelto with cardiac pacer, CAD, and dementia recently admitted for PNA with poor improvement following 4 days of rocephin who was readmitted for weakness and disorientation and is not transferred to ICU for management of urosepsis in the setting of obstruction likely 2/2 to malignancy. Neuro CAM ICU: Unable to assess due to mental status. Dementia: PIN SETTER donepizil held Cardiac - pAfib with pacer: PIN SETTER Xarelto held in anticipation of cysto with stent placement. Not in afib at time of exam. CAD: ASA, carvedilol held in setting of hypotension. Continue simvastatin 80mg daily. Respiratory - - Initially concerning for PNA, but without focal infiltrate on XR. On BiPAP for mental status but has not had any cough or sputum production. Suspect septic picture is 2/2 urologic origin with low suspicion for PNA. - Mild hypercapnic acidosis on VBG. BiPaP vs titration to NC pending clinical course after stenting procedure, suspect he will do well with NC and downtitration. GI - NPO pending eval RENAL/LYTES - - 136/4.0/103/29. Sodium, potassium wnl. GIOVANY, Cr elevated to 1.84 from baseline of ~1.0 - In setting of obstruction 2/2 possible neoplasm with superimposed pyelonephritis. WBC elevated to 32 with lactate of 2.1. - Cysto with stent pending. Continue to follow. - Empiric zosyn at this time. Likely 2/2 to Morganella, but will treat broadly with sepsis picture and pending blood culture results. - Obstructive Uropathy ?Neoplasm - Urology on board, cysto/stent as above - Clarify records with [facility] regarding prior urologic workup ENDO - Hypothyroidism: Continue PIN SETTER levothyroxine 100mcg daily. No history DM. HEME - Stable H&H, chronic normocytic anemia. Leukocytosis in setting of sepsis, CBC+D daily ID - Urosepsis with obstructive uropathy and L hydronephrosis - UC positive for Morganella. Continue empiric Zosyn pending blood culture results - Sepsis protocol, s/p 1L crystalloid bolus. Hypotensive on arrival to the unit likely with post procedural bacteremia. +1L LR and continue to follow. - Source control with stenting/cysto and abx as above - Monitor fever curve. Afebrile on arrival. INTEGUMENTARY - No acute lesions/rashes or signs of cellulitis LINES/IV ACCESS - L&R PIVs intact. DVT PROPHYLAXIS - Xarelto held in setting of stenting and possible need for procedures. Heparin 5,000u Q8H Thank you for allowing us to be part of this patient's care. Please refer to Dr. Lewis's documentation for any further recommendations. Supervising Physician Co-Signing Physician Notes patient seen and examined with the resident. I agree with his note except as noted below 78 y/o male with a history of HTN, afib, CAD who presented and found to have morganella UTI and possible pneumonia. He was not been getting better and today on CT abd found to have renal mass and hydrocephalus. He was taken to the OR for uretal stent placement Constitutional: Comfortable NAD on bipap HEENT: normocephalic atraumatic. MMM. no cervical lymphadenopathy CV: RRR nl s1,s2 systolic murmur. no rubs or gallops Lungs: clear to auscultation bilaterally. no accessory muscle use Abd: soft nontender nondistended. normal bowel sounds Ext: no edema. no cyanosis, no clubbing Skin: warm dry Neuro: lethargic but will answer some questions. moving all extremities Psych: lethargic A/P: Neuro- lethargic likely metabolic encephalopathy due to sepsis and may have had increased co2 since woke up with bipap CV- BP ok right. will monitor as may drop post intervention. continue fluids. history of afib now in sinus Pulmonary- sat well on bipap. will keep on tonight if comfortable. ID- sepsis with evidence of end organ dysfunction due to UTI with obstruction now s/p stent. continue piperacillin-tazobactam. had sensitive Morganella if no further bacteria found will narrow abx. doubt pneumonia Renal-acute renal failure. prerenal vs ATN vs obstruction. s/p stent. renal mass will need further workup once more stable GI- NPO until more awake Heme- leukocytosis. heparin proph for now. will need full anticoagulation restarted when sure no further procedures for afib Endocrine- blood sugars controlled. hypothyroidism on levothyroxine Dispo- monitor in ICU for hemodynamic support History of Present Illness Reason for Consultation: Sepsis Requesting Physician: Dr. Colvin Attending Physician: Wilberto Wu History of Present Illness Alfredo Momin is a 78yo M with a PMHx of HTN, BPH requiring self cath, Afib on Xarelto with cardiac pacer, CAD, and dementia recently admitted for PNA with poor improvement following 4 days of rocephin who was readmitted for weakness and disorientation. ICU has been consulted for obstructive urosepsis management. Following admission ot the hospital urine cultures were positive for Moganella. CT-A/P showed severe left-sided hydronephrosis with multiple cystic lesions about the left kidney concerning for obstructing urothelial neoplasm vs hemorrhagic debris. Per report patient had a workup in [place] and was told he may have had a cancer, but the extend of this workup is unclear. This afternoon his pressures dropped from 140 systolic to 100 by noon and then 80. He was converted to Zosyn, placed on aggressive fluid bolus, and Urology and ICU was consulted. He is being taken to OR for stent placement with urology and transferred to ICU for futher care. Patient was somnolent, but arousable. Is aware he is in the hospital, denies pain. Otherwise history limited by mental status. Allergies Allergy/AdvReac Type Severity Reaction Status Date / Time captopril Allergy Severe ANAPHYLAXIS Verified 07/28/17 10:55 Iodinated Contrast- Oral and Allergy Severe ANAPHYLAXIS Verified 07/28/17 10:55 IV Dye levofloxacin Allergy Severe ANAPHYLAXIS Verified 07/28/17 10:55 oxaprozin Allergy Severe ANAPHYLAXIS Verified 07/28/17 10:55 torsemide Allergy Severe ANAPHYLAXIS Verified 07/28/17 10:55 hydrocodone Allergy Mild RASH Verified 07/28/17 10:55 morphine Allergy Unknown UNKNOWN Verified 07/28/17 10:55 Sulfa (Sulfonamide Allergy Unknown UNKNOWN Verified 07/28/17 10:55 Antibiotics) Home Medications Home Medications Medication Instructions Recorded Confirmed Type aspirin [Aspir-81] 81 mg PO DAILY 06/05/18 06/05/18 History bethanechol chloride [Urecholine] 50 mg PO QID 06/05/18 06/05/18 History calcium carbonate [Calcium 600] 1,200 mg PO DAILY 06/05/18 06/05/18 History carvedilol [Coreg] 3.125 mg PO BID 06/05/18 06/05/18 History citalopram [Celexa] 10 mg PO DAILY 06/05/18 06/05/18 History cyanocobalamin (vitamin B-12) 1,000 mcg PO DAILY 06/05/18 06/05/18 History [Vitamin B-12] docusate sodium [Stool Softener] 300 mg PO DAILY 06/05/18 06/05/18 History donepezil 10 mg PO HS 06/05/18 06/05/18 History epinephrine [EpiPen] 0.3 mg IM UD PRN 06/05/18 06/05/18 History gabapentin 300 mg PO DAILY 06/05/18 06/05/18 History hydrochlorothiazide 12.5 mg PO DAILY 06/05/18 06/05/18 History isosorbide mononitrate 30 mg PO DAILY 06/05/18 06/05/18 History levothyroxine 100 mcg PO DAILY 06/05/18 06/05/18 History memantine [Namenda] 10 mg PO BID 06/05/18 06/05/18 History nitroglycerin [Nitromist] 1 spray SUBLINGUAL UD PRN 06/05/18 06/05/18 History rivaroxaban [Xarelto] 20 mg PO DAILY 06/05/18 06/05/18 History simvastatin 80 mg PO PM 06/05/18 06/05/18 History tamsulosin 0.4 mg PO DAILY 06/05/18 06/05/18 History tramadol 50 - 100 mg PO DAILY PRN 06/05/18 06/05/18 History Patient History Medical History Encounter for pre-operative examination Metabolic encephalopathy (Acute) Hypokalemia Anemia Cardiac pacemaker in situ Atrial fibrillation Mild cognitive impairment HTN (hypertension), benign Hyperlipidemia Hypothyroidism CAD (coronary artery disease), [place] coronary artery Hypoxia (Acute) Altered mental status (Acute) UTI (urinary tract infection) (Acute) PNA (pneumonia) (Acute) Acute kidney injury (Acute) Afib (Resolved) Surgical History H/O total knee replacement History of lumbar fusion Family History Other No significant family history Social History Preferred Language: Thai Communication Ability: Effective Beliefs That Will Affect Care: None Current Living Situation: Spouse Feels Safe at Home: Yes Smoking Status: Former smoker Hx Alcohol Use: No Hx Substance Use: No Review of Systems Review of Systems: Unobtainable due to cognitive status Physical Exam Physical Exam: General: A&Ox1. Somnolent, but NAD. HEENT: Atraumatic, normocephalic. Pulm: CTAB A&P. -wheezes, -rales, -rhonchi. Symmetrical chest rise. On BiPAP, no overt respiratory distress. Cardiac: iii/vi systolic murmer. RRR, not in afib at time of exam. Abdominal: Nontender, nondistended, soft. BS present. : Michel catheter present draining dark yellow urine. Atraumatic male external genetalia without scrotal swelling/erythema. Flexible penile implant palpable. Extremity: Cool, without mottling. Radial and dorsalis pedis pulses intact bilaterally and symmetrical. Capillary refill 2-3 seconds. Results & Data Vital Signs (Past 12 Hours) Vital Signs Temp Pulse Pulse Pulse Resp BP BP 06/08/18 16:44 36.4 C L 65 16 103/65 06/08/18 16:02 68 16 06/08/18 16:00 74 16 90/60 L 06/08/18 15:45 36.7 C 76 16 106/62 106/62 06/08/18 15:20 36.7 C 68 16 80/50 L 06/08/18 15:10 36.7 C 68 16 107/70 98/62 L 06/08/18 12:40 37.7 C H 90 18 98/62 L 06/08/18 07:21 37.3 C 84 16 144/74 H Pulse Ox 06/08/18 16:44 100 06/08/18 16:02 100 06/08/18 16:00 98 06/08/18 15:45 97 06/08/18 15:20 98 06/08/18 15:10 98 06/08/18 12:40 97 06/08/18 07:21 92 Laboratory Results 06/08/18 06/08/18 06/08/18 Range/Units 15:37 15:37 15:37 WBC 32.17 H* D (4.8-10.8) K/uL RBC 3.54 L (4.7-6.1) M/uL Hgb 10.2 L (14.0-18.0) g/dL Hct 30.5 L (42-52) % MCV 86.2 (80-100) fL MCH 28.8 (25-34) pg MCHC 33.4 (32-36) g/dL RDW Std Deviation 48.7 H (36.4-46.3) fL RDW Coeff of Curtis 15.2 H (11.5-14.5) % Plt Count 271 (130-400) K/uL MPV 9.6 (7.4-10.4) fL Immature Gran % (Auto) 1.0 % Neut % (Auto) 91.4 % Lymph % (Auto) 1.9 % [place] % (Auto) 5.7 % Eos % (Auto) 0.0 % Baso % (Auto) 0.0 % Immature Gran # (Auto) 0.31 H (0.00-0.02) K/uL Neut # (Auto) 29.42 H (1.4-6.5) K/uL Lymph # (Auto) 0.60 L (1.2-3.4) K/uL [place] # (Auto) 1.83 H (0.11-0.59) K/uL Eos # (Auto) 0.00 (0-0.5) K/uL Baso # (Auto) 0.01 (0-0.2) K/uL VBG pH 7.35 L (7.36-7.41) VBG pCO2 55 H (38-50) mmHg VBG pO2 24 mmHg VBG HCO3 30 mmol/L VBG O2 Saturation < 60.0 % VBG Base Excess 3.1 mEq/L Barometric Pressure 737.6 mm/Hg Sodium (136-145) mmol/L Potassium (3.5-5.1) mmol/L Chloride (98-107) mmol/L Carbon Dioxide (21-32) mmol/L Anion Gap (3-11) BUN (7-18) mg/dl Creatinine (0.6-1.4) mg/dl Est Cr Clr Drug Dosing ml/min Est GFR ( Amer) Est GFR (Non-Af Amer) BUN/Creatinine Ratio (10-20) Glucose (70-99) mg/dl POC Glucose (70-99) Lactate (0.4-2.0) mmol/L Calcium (8.5-10.1) mg/dl Ammonia 15.0 (11-32) umol/L 06/08/18 06/08/18 06/08/18 Range/Units 15:37 15:37 15:35 WBC (4.8-10.8) K/uL RBC (4.7-6.1) M/uL Hgb (14.0-18.0) g/dL Hct (42-52) % MCV (80-100) fL MCH (25-34) pg MCHC (32-36) g/dL RDW Std Deviation (36.4-46.3) fL RDW Coeff of Curtis (11.5-14.5) % Plt Count (130-400) K/uL MPV (7.4-10.4) fL Immature Gran % (Auto) % Neut % (Auto) % Lymph % (Auto) % [place] % (Auto) % Eos % (Auto) % Baso % (Auto) % Immature Gran # (Auto) (0.00-0.02) K/uL Neut # (Auto) (1.4-6.5) K/uL Lymph # (Auto) (1.2-3.4) K/uL [place] # (Auto) (0.11-0.59) K/uL Eos # (Auto) (0-0.5) K/uL Baso # (Auto) (0-0.2) K/uL VBG pH (7.36-7.41) VBG pCO2 (38-50) mmHg VBG pO2 mmHg VBG HCO3 mmol/L VBG O2 Saturation % VBG Base Excess mEq/L Barometric Pressure mm/Hg Sodium 136 (136-145) mmol/L Potassium 4.0 (3.5-5.1) mmol/L Chloride 103 (98-107) mmol/L Carbon Dioxide 29 (21-32) mmol/L Anion Gap 4.0 (3-11) BUN 21 H (7-18) mg/dl Creatinine 1.84 H D (0.6-1.4) mg/dl Est Cr Clr Drug Dosing 31.1 ml/min Est GFR ( Amer) 39.5 Est GFR (Non-Af Amer) 34.1 BUN/Creatinine Ratio 11.6 (10-20) Glucose 139 H (70-99) mg/dl POC Glucose 160 H (70-99) Lactate 2.1 H* (0.4-2.0) mmol/L Calcium 8.1 L (8.5-10.1) mg/dl Ammonia (11-32) umol/L 06/08/18 06/08/18 06/08/18 Range/Units 12:41 05:48 05:48 WBC 19.17 H (4.8-10.8) K/uL RBC 3.95 L (4.7-6.1) M/uL Hgb 11.4 L (14.0-18.0) g/dL Hct 34.1 L (42-52) % MCV 86.3 (80-100) fL MCH 28.9 (25-34) pg MCHC 33.4 (32-36) g/dL RDW Std Deviation 46.9 H (36.4-46.3) fL RDW Coeff of Curtis 14.9 H (11.5-14.5) % Plt Count 320 (130-400) K/uL MPV 10.1 (7.4-10.4) fL Immature Gran % (Auto) 0.4 % Neut % (Auto) 87.2 % Lymph % (Auto) 4.9 % [place] % (Auto) 7.3 % Eos % (Auto) 0.1 % Baso % (Auto) 0.1 % Immature Gran # (Auto) 0.07 H (0.00-0.02) K/uL Neut # (Auto) 16.74 H (1.4-6.5) K/uL Lymph # (Auto) 0.93 L (1.2-3.4) K/uL [place] # (Auto) 1.40 H (0.11-0.59) K/uL Eos # (Auto) 0.02 (0-0.5) K/uL Baso # (Auto) 0.01 (0-0.2) K/uL VBG pH (7.36-7.41) VBG pCO2 (38-50) mmHg VBG pO2 mmHg VBG HCO3 mmol/L VBG O2 Saturation % VBG Base Excess mEq/L Barometric Pressure mm/Hg Sodium 136 (136-145) mmol/L Potassium 4.1 D (3.5-5.1) mmol/L Chloride 101 (98-107) mmol/L Carbon Dioxide 33 H (21-32) mmol/L Anion Gap 2.0 L (3-11) BUN 20 H (7-18) mg/dl Creatinine 1.47 H (0.6-1.4) mg/dl Est Cr Clr Drug Dosing 38.9 ml/min Est GFR ( Amer) 51.8 Est GFR (Non-Af Amer) 44.7 BUN/Creatinine Ratio 13.3 (10-20) Glucose 115 H (70-99) mg/dl POC Glucose 129 H (70-99) Lactate (0.4-2.0) mmol/L Calcium 8.8 (8.5-10.1) mg/dl Ammonia (11-32) umol/L Medications Administered Current Inpatient Medications Albuterol (Duoneb) 3 ml NEB Q6H PRN PRN Reason: Shortness Of Breath Stop: 07/05/18 21:59 Atropine Sulfate (Atropine Sulfate) 0.5 mg IV Q1M PRN PRN Reason: PACU Use-HR<40 &/or Bradycardi Stop: 06/08/18 21:52 Citalopram Hydrobromide (Celexa) 10 mg PO DAILY [facility] Stop: 07/06/18 08:59 Last Admin: 06/08/18 07:48 Dose: 10 mg Documented by: Ephedrine Sulfate (Ephedrine Sulfate) 5 mg IV Q5M PRN PRN Reason: PACU Use Only-SBP<90 mmHg Stop: 06/08/18 21:52 Piperacillin Sod/Tazobactam (Sod 3.375 gm/ Dextrose) 115 mls @ 28.75 mls/hr IV Q8H [facility]; Protocol Stop: 06/18/18 21:59 Levothyroxine Sodium (Synthroid) 100 mcg PO DAILYBB [facility] Stop: 07/06/18 06:29 Last Admin: 06/08/18 06:37 Dose: 100 mcg Documented by: Ondansetron HCl (Zofran) 4 mg IV Q6H PRN PRN Reason: Nausea Stop: 07/05/18 21:39 Resident Activity Tracking Resident Involvement: Resident Care Provided Care Provided: Adult [facility] Medicine
[2018-06-08] MEDS ORDERED: LACTATED RINGER'S 1,000 ML IV ONE ×2 (18:21→19:06)
--- NOTE | 2018-06-08 19:05 | Anesthesiology Progress Note ---
Date of Service June 08, 2018 The patient was brought to [facility] septic and obtunded. He had been started on CPAP a short while earlier on the floor. Our plan was to give him a little ketamine and have an endo tracheal tube ready to intubate him if needed. He awoke in the [facility] pre-operatively and began conversing with his son. His vital signs were stable. We took him took him to the O.R. and Dr. Epps said she could place the stent without any sedation, which she did without a problem. The patient was taken to the ICU post in stable condition. Anesthesia Post Procedure Vital Signs Vital Signs: Temp Pulse Pulse Pulse Resp BP BP 06/08/18 18:30 60 20 83/48 L 06/08/18 18:15 69 24 78/46 L 06/08/18 18:00 64 23 95/51 L 06/08/18 17:45 69 15 101/61 06/08/18 17:43 80 06/08/18 17:41 77 14 105/40 L 06/08/18 17:36 36.3 C L 69 16 118/50 L 06/08/18 16:44 36.4 C L 65 16 06/08/18 16:02 68 16 06/08/18 16:00 74 16 06/08/18 15:45 36.7 C 76 16 106/62 06/08/18 15:20 36.7 C 68 16 80/50 L 06/08/18 15:10 36.7 C 68 16 107/70 06/08/18 12:40 37.7 C H 90 18 98/62 L 06/08/18 07:21 37.3 C 84 16 06/07/18 23:47 37.0 C 87 20 BP Pulse Ox 06/08/18 18:30 100 06/08/18 18:15 100 06/08/18 18:00 100 06/08/18 17:45 100 06/08/18 17:43 06/08/18 17:41 100 06/08/18 17:36 100 06/08/18 16:44 103/65 100 06/08/18 16:02 100 06/08/18 16:00 90/60 L 98 06/08/18 15:45 106/62 97 06/08/18 15:20 98 06/08/18 15:10 98/62 L 98 06/08/18 12:40 97 06/08/18 07:21 144/74 H 92 06/07/18 23:47 139/78 93 Notes Mental Status: alert / awake / arousable and participated in evaluation Patient Amnestic to Procedure: Yes Nausea / Vomiting: adequately controlled Pain: adequately controlled Airway Patency, RR, SpO2: stable & adequate BP & HR: stable & adequate Hydration State: stable & adequate Anesthetic Complications: no major complications apparent and Pt Satisfied with anesthetic care
[2018-06-08] MEDS: HEPARIN SOD 5,000 UNIT/0.5 ML VIAL SQ SCH (20:24)
[2018-06-08] MEDS: PIPERACILLIN/TAZOBACTAM 3.375 GM in DEXTROSE 5% 100 ML IV SCH (20:24)
[2018-06-08] MEDS: SODIUM CHLORIDE 0.9% 1000ML 1,000 ML IV SCH (20:24)
[2018-06-08 22:08] LABS: BUN Creatinine Ratio 14.5 (10-20); Calcium 7.9 mg/dl (8.5-10.1); Creatinine Clr Calc Pharmacy 36.2 ml/min; Est GFR (African American) 47.5; Potassium 4.3 mmol/L (3.5-5.1)
[2018-06-09 04:51] LABS: Basophils # (auto) 0.01 K/uL (0-0.2); Eosinophils # (auto) 0.01 K/uL (0-0.5); Hematocrit (blood only) 30.1 % (42-52); Hemoglobin 9.7 g/dL (14.0-18.0); Immature Granulocytes % (auto) 0.5 %; Lymphocytes % (auto) 5.2 %; Mean Corpuscular Hgb Conc 32.2 g/dL (32-36); Mean Corpuscular Volume 86.2 fL (80-100); Mean Platelet Volume 9.7 fL (7.4-10.4); Monocytes # (auto) 1.13 K/uL (0.11-0.59); Monocytes % (auto) 5.3 %; Neutrophils # (auto) 18.81 K/uL (1.4-6.5); Platelet Count 256 K/uL (130-400); RDW Coefficient of Variation 15.4 % (11.5-14.5); Red Blood Count 3.49 M/uL (4.7-6.1); White Blood Count 21.16 K/uL (4.8-10.8)
[2018-06-09 05:21] LABS: BUN Creatinine Ratio 16.9 (10-20); Calcium 7.9 mg/dl (8.5-10.1); Creatinine Clr Calc Pharmacy 40.8 ml/min; Est GFR (Non-African American) 47.5; Magnesium 2.1 mg/dl (1.8-2.4); Potassium 4.3 mmol/L (3.5-5.1)
[2018-06-09] MEDS: SODIUM CHLORIDE 0.9% 1000ML 1,000 ML IV SCH (05:46)
[2018-06-09] MEDS: PIPERACILLIN/TAZOBACTAM 3.375 GM in DEXTROSE 5% 100 ML IV SCH ×3 (05:46→22:23)
[2018-06-09] MEDS: HEPARIN SOD 5,000 UNIT/0.5 ML VIAL SQ SCH ×3 (05:47→22:23)
[2018-06-09] MEDS: LEVOTHYROXINE SODIUM 100 MCG TABLET PO SCH (06:14)
--- NOTE | 2018-06-09 09:00 | Critical Care Progress Note ---
Date of Service June 09, 2018 Assessment & Plan (1) Sepsis due to urinary tract infection: Reason Critically Ill: 78-year-old male here with a PMHx significant for HTN, BPH, Afib on Xarelto with cardiac pacer, CAD, and dementia recently admitted for PNA with poor improvement following 4 days of rocephin who was readmitted for weakness and disorientation and was transferred to ICU for management of urosepsis in the setting of obstruction likely 2/2 to malignancy. Neuro Dementia at baseline, but no acute delirium present. Dementia: SMASHER donepizil held. Cardiac - pAfib with pacer: SMASHER Xarelto held in anticipation of cysto with stent placement. Not in afib at time of exam. On heparin 5000 Q8H CAD: ASA, carvedilol held in setting of hypotension. Resume carvedilol tonight/tomorrow pending stable vitals. Continue simvastatin 80mg daily. Respiratory - - Initially concerning for PNA, but without focal infiltrate on XR. On BiPAP for mental status but has not had any cough or sputum production. Suspect septic picture is 2/2 urologic origin with low suspicion for PNA. - Mild hypercapnic acidosis on VBG, did well on BiPaP overnight which was started for AMS. Converted to NC today and wean to SpO2>94%. GI - Diet: Soft, chopped RENAL/LYTES - - 138/4.3/106/29 Cr downtrended to 1.4 from 1.8 with a bl of ~1.0 GIOVANY, Cr elevated to 1.4 from baseline of ~1.0 - In setting of obstruction 2/2 possible neoplasm with superimposed pyelonephritis. WBC downtrending with resolution of lactate - s/p cysto with L uretal stent placement. Draining blood tinged urine. Continue to follow. - Empiric zosyn at this time. Likely 2/2 to Morganella, but will treat broadly with sepsis picture and pending blood culture results. Likely to improve and tolerate narrowing of abx with good source control. - Obstructive Uropathy ?Neoplasm - Urology on board, cysto/stent as above - Clarify records with [facility] by 1* regarding prior urologic workup. Will need cystoscopy for further mass evaluation in the future if not already performed. ENDO - Hypothyroidism: Continue SMASHER levothyroxine 100mcg daily. No history DM. HEME - Stable H&H, chronic normocytic anemia. Leukocytosis in setting of sepsis, decreased from 32 to 21 today. CBC+D daily. ID - Urosepsis with obstructive uropathy and L hydronephrosis - UC positive for Morganella. Continue empiric Zosyn pending blood culture results - s/p 2L crystalloid bolus. Hypotensive on arrival to the unit now normotensive - Source control with stenting/cysto and abx as above - Monitor fever curve. Afebrile on arrival and overnight INTEGUMENTARY - No acute lesions/rashes or signs of cellulitis LINES/IV ACCESS - L&R PIVs intact. DVT PROPHYLAXIS - Xarelto held in setting of stenting and possible need for procedures. Heparin 5,000u Q8H Thank you for allowing us to be part of this patient's care. Please refer to Dr. Lewis's documentation for any further recommendations. Supervising Physician Co-Signing Physician Notes patient seen and examined with the resident. I agree with his note except as noted below 78 y/o male with a history of HTN, afib, CAD who presented and found to have morganella UTI and possible pneumonia. He was not been getting better and today on CT abd found to have renal mass and hydrocephalus. He was taken to the OR for uretal stent placement Constitutional: Comfortable NAD on bipap HEENT: normocephalic atraumatic. CV: RRR nl s1,s2 systolic murmur. no rubs or gallops Lungs: clear to auscultation bilaterally. no accessory muscle use Abd: soft nontender nondistended. normal bowel sounds Ext: no edema. no cyanosis, no clubbing Skin: warm dry Neuro: awake but confused A/P: Neuro- lethargic likely metabolic encephalopathy due to sepsis improved CV- briefly hypotensive last evening but responded to fluids now HD stable. history of afib now in sinus Pulmonary- sat well on bipap. trial off bipap ID- sepsis with evidence of end organ dysfunction due to UTI with obstruction now s/p stent. continue piperacillin-tazobactam. had sensitive Morganella if no further bacteria found will narrow abx. doubt pneumonia Renal-acute renal failure. prerenal vs ATN vs obstruction. s/p stent. renal mass will need further workup once more stable GI- diet as tolerated Heme- leukocytosis. heparin proph for now. will need full anticoagulation restarted when sure no further procedures for afib Endocrine- blood sugars controlled. hypothyroidism on levothyroxine Dispo- ok to transfer to floor Subjective Alfredo is awake and responds to questions appropriately, but is disoriented to year and place. He endorses some diffuse abdominal discomfort today. Denies shortness of breath, chest pain, fever, chills, sweats, nausea, vomiting. Denies pain at his myles site. He is hungry today and would like to eat. He is not sure if he has had any workup for his kidney mass before, is not able to give any history of urology consults although this was mentioned by family to hospitalist service. No other questions or concerns this morning. Review of Systems Review of Systems: Constitutional: Denies fever, chills, malaise Eyes: Denies vision change ENT: Denies sore throat, congestion Cardiovascular: Denies Chest pain, chest pressure, palpitations, extremity swelling Respiratory: Denies shortness of breath, cough, sputum production, difficulty breathing Gastrointestinal: Endorses abdominal discomfort. Denies nausea, vomiting, constipation, diarrhea Genitourinary: Denies pain with urination, pain at his myles site, flank pain. Musculoskeletal: Denies weakness, muscle aches/pain, joint aches/pain Integumentary:Denies rash, lesions, bruising Neurological: Denies headache, numbness, tingling, Physical Exam Physical Exam: General: Oriented to name only. Not oriented to year, place, or president. NAD. Cooperative. HEENT: Atraumatic, normocephalic. Pulm: End expiratory wheeze present in RUL>[place]. Otherwise CTAB A&P. -rales, - rhonchi. Symmetrical chest rise. On BiPAP without increased work of breathing. No respiratory distress. Cardiac: iii/vi systolic murmur. RRR, -rg. Radial pulses intact and symmetrical. Abdominal: Softly distended, diffusely mildly tender to palpation without rebound. BS present. : Myles catheter draining light red urine. No discharge, bleeding, erythema at myles site. Results & Data Vital Signs (Past 12 Hours) Vital Signs Temp Pulse Resp BP Pulse Ox 06/09/18 07:27 69 20 100 06/09/18 06:01 69 16 137/69 100 06/09/18 05:45 62 22 100 06/09/18 05:31 60 16 132/67 100 06/09/18 05:01 64 15 127/69 100 06/09/18 04:31 61 20 125/77 100 06/09/18 04:01 36.5 C 57 L 11 L 136/69 100 06/09/18 03:31 58 L 21 129/61 100 06/09/18 03:01 59 L 18 123/67 100 06/09/18 02:31 59 L 16 109/68 100 06/09/18 02:17 59 L 24 100 06/09/18 02:01 61 23 129/61 100 06/09/18 01:31 62 15 130/66 100 06/09/18 01:01 60 15 109/61 100 06/09/18 00:31 74 22 117/66 100 06/09/18 00:01 36.5 C 64 24 116/72 100 06/08/18 23:31 69 14 120/63 100 06/08/18 23:30 60 19 98 06/08/18 23:01 69 12 98/59 L 99 06/08/18 22:31 65 22 112/70 100 06/08/18 22:01 64 13 122/75 100 06/08/18 21:49 61 13 113/81 100 06/08/18 21:01 66 19 100/61 100 Resident Activity Tracking Resident Involvement: Resident Care Provided Care Provided: Adult Hospital Medicine
[2018-06-09] MEDS: CITALOPRAM 20 MG TAB PO SCH (10:38)
[2018-06-09] MEDS ORDERED: PIPERACILL/TAZOBAC CONSULT ACTIVE PRN (11:09)
--- NOTE | 2018-06-09 14:51 | Urology Progress Note ---
Date of Service June 09, 2018 Assessment & Plan (1) Severe sepsis: seems to have improved a bit overnight lactic acidosis cleared respiratory status now stable. BP has been stable creatinine trending down but not yet normal. keep myles indefinitely in several weeks he should have a left ureteroscopy under general anesthesia to biopsy the suspected left urothelial lesions. Keep stent until then. Present on Admission?: Yes Subjective Patient is awake and alert and asking for a scoot up in bed. He feels well. he offers no subjective complaint. Review of Systems Review of Systems: patient reports no fever no chils, no nausea or emesis, no chest pain. Physical Exam Constitutional: WD/WN, vitals as above comfortable; no acute distress Respiratory: no supplemental oxygen and breathing comfortably with no accessory muscle use. Gastrointestinal (Abdomen): abdomen is flat but mildly tender to palpation. no rebound no guarding Genitourinary: myles in place draining cloudy pink urine. Results & Data Vital Signs (Past 12 Hours) Vital Signs Temp Pulse Resp BP Pulse Ox 06/09/18 13:58 81 18 138/77 95 06/09/18 13:01 78 26 H 127/83 97 06/09/18 12:01 78 27 H 130/71 97 06/09/18 11:01 78 26 H 136/72 98 06/09/18 10:01 69 23 103/62 99 06/09/18 09:01 68 23 136/64 99 06/09/18 08:31 69 20 130/84 98 06/09/18 08:01 36.8 C 62 9 L 128/82 99 06/09/18 07:31 75 20 147/82 H 100 06/09/18 07:27 69 20 100 06/09/18 07:01 66 23 133/72 100 06/09/18 06:01 69 16 137/69 100 06/09/18 05:45 62 22 100 06/09/18 05:31 60 16 132/67 100 06/09/18 05:01 64 15 127/69 100 06/09/18 04:31 61 20 125/77 100 06/09/18 04:01 36.5 C 57 L 11 L 136/69 100 06/09/18 03:31 58 L 21 129/61 100 06/09/18 03:01 59 L 18 123/67 100
[2018-06-09] MEDS: ACETAMINOPHEN 325 MG TAB PO PRN (20:20)
--- NOTE | 2018-06-09 21:27 | Hospitalist Progress Note ---
Date of Service June 09, 2018 Assessment & Plan (1) Severe sepsis: Patient had presented with sepsis at time of admission due to UTI and LLL pneumonia. Appeared to be making slow recovery from such. On 06/08/18 the patient developed acute decompensation with altered MS, worsening BP, and lactic acidosis. SBP dropped to 70s/80s requiring multiple saline boluses. CT abd/pelvis showed b/l renal masses and left-sided, severe hydronephrosis consistent with obstruction likely from the renal mass. He emergently went to the OR with Dr Paula Epps from urology for left- sided stent placement followed by admission to the ICU. Blood cx's obtained yesterday are negative. He remains on zosyn which will cover the morganella that grew on previous urine culture. Fluids to be stopped today. Appreciate urology/critical care consults. (2) Acute respiratory failure with hypercapnia: In setting of severe sepsis. Placed on BIPAP and now resolved. BIPAP off. (3) UTI (urinary tract infection): 2nd to morganella. day #5 of IV antibiotics. If blood cx's remain negative x 48 hours can likely transition from zosyn to PO antibiotics. (4) Hydronephrosis: left-sided severe POD #1 s/p emergent ureteral stent placement appreciate urology assistance (5) Bilateral renal masses: family reports that patient underwent a cystoscopy in [place] sometime in the recent past. they could not give much in the way of details but did say they were told he "had a mass that needed to come out." he ultimately will need biopsy for definitive diagnosis. Dr. Epps to coordinate this. (6) PNA (pneumonia): LLL. day #5 of Rx. plan 7 days of Rx. (7) Metabolic encephalopathy: 2nd to UTI and pneumonia in setting of severe sepsis and baseline dementia. resolved. (8) Acute kidney injury: POA. Had resolved then renal function worsened yesterday as severe sepsis ensued. GIOVANY likely multifactorial including obstruction, hypotension/sepsis, etc. BMP today shows improved Cr will obtain another Creatinine level in am (9) Hypothyroidism: TSH compensated cont synthroid as is (10) CAD (coronary artery disease), [place] coronary artery: no ischemic sx's during the stay (11) HTN (hypertension), benign: resume BP meds either later today or tomorrow am (12) BPH w urinary obs/LUTS: myles is in place resume alpha christina as BP will allow (13) Atrial fibrillation: NSR on EKG holding xarelto in setting of gross hematuria and urinary tract instrumentation (14) Cardiac pacemaker in situ: noted (15) Hypokalemia: resolved (16) DVT prophylaxis: scds holding xarelto /daughter extensively updated by phone yesterday left message for daughter today transfer to telemetry today Subjective pt stable overnight with normal BPs now off BIPAP s/p left ureteral stent placement yesterday evening by Dr. Epps urine in myles bag grossly bloody pt more awake, alert today; telling stories c/o b/l kidney pain ate better today Review of Systems Respiratory: no cough and no dyspnea Cardiovascular: no chest pain Gastrointestinal: no abdominal pain, no nausea and no vomiting mild flank pain b/l however Physical Exam Constitutional: no acute distress looks much better today ENMT: external ear and nose normal, oropharynx normal Respiratory: normal respiratory effort, lungs clear to auscultation A uscultation: + crackles (fine, left base) Cardiovascular: Rate/Rhythm: regular rate and regular rhythm Heart Sounds: normal S1, normal S2 and + murmur (2/6 LSB and RUSB) Vessels: posterior tibial pulses present and dorsalis pedis pulses present; no JVD Extremities: no edema Gastrointestinal (Abdomen): normal bowel sounds, soft, nontender, no hepatosplenomegaly mild b/l flank pain to palpation Psychiatric: Orientation: alert, oriented to person and oriented to place; + not oriented to time Results & Data Vital Signs (Past 12 Hours) Vital Signs Temp Pulse Resp BP Pulse Ox 06/09/18 19:49 36.6 C 83 20 110/74 94 06/09/18 15:33 36.4 C L 69 18 171/107 H 97 06/09/18 13:58 81 18 138/77 95 06/09/18 13:01 78 26 H 127/83 97 06/09/18 12:01 78 27 H 130/71 97 06/09/18 11:01 78 26 H 136/72 98 06/09/18 10:01 69 23 103/62 99 Laboratory Results Laboratory Results - last 24 hr 06/08/18 06/08/18 06/09/18 21:43 21:43 04:27 WBC 21.16 H D RBC 3.49 L Hgb 9.7 L Hct 30.1 L MCV 86.2 MCH 27.8 MCHC 32.2 RDW Std Deviation 49.0 H RDW Coeff of Curtis 15.4 H Plt Count 256 MPV 9.7 Immature Gran % (Auto) 0.5 Neut % (Auto) 89.0 Lymph % (Auto) 5.2 Rooks % (Auto) 5.3 Eos % (Auto) 0.0 Baso % (Auto) 0.0 Immature Gran # (Auto) 0.10 H Neut # (Auto) 18.81 H Lymph # (Auto) 1.10 L Rooks # (Auto) 1.13 H Eos # (Auto) 0.01 Baso # (Auto) 0.01 Sodium 138 Potassium 4.3 Chloride 104 Carbon Dioxide 28 Anion Gap 5.0 BUN 23 H Creatinine 1.58 H Est Cr Clr Drug Dosing 36.2 Est GFR ( Amer) 47.5 Est GFR (Non-Af Amer) 41.0 BUN/Creatinine Ratio 14.5 Glucose 145 H POC Glucose Lactate 1.2 Calcium 7.9 L Magnesium 06/09/18 06/09/18 04:27 11:37 WBC RBC Hgb Hct MCV MCH MCHC RDW Std Deviation RDW Coeff of Curtis Plt Count MPV Immature Gran % (Auto) Neut % (Auto) Lymph % (Auto) Rooks % (Auto) Eos % (Auto) Baso % (Auto) Immature Gran # (Auto) Neut # (Auto) Lymph # (Auto) Rooks # (Auto) Eos # (Auto) Baso # (Auto) Sodium 138 Potassium 4.3 Chloride 106 Carbon Dioxide 29 Anion Gap 3.0 BUN 24 H Creatinine 1.40 Est Cr Clr Drug Dosing 40.8 Est GFR ( Amer) 55.0 Est GFR (Non-Af Amer) 47.5 BUN/Creatinine Ratio 16.9 Glucose 108 H POC Glucose 121 H Lactate Calcium 7.9 L Magnesium 2.1 (1) UTI (urinary tract infection) Hematuria presence: without hematuria Urinary tract infection type: site unspecified Qualified Code(s): N39.0 - Urinary tract infection, site not specified (2) Hydronephrosis Hydronephrosis type: unspecified Qualified Code(s): N13.30 - Unspecified hydronephrosis (3) Atrial fibrillation Atrial fibrillation type: permanent Qualified Code(s): I48.2 - Chronic atrial fibrillation (4) Hypothyroidism Hypothyroidism type: acquired Qualified Code(s): E03.9 - Hypothyroidism, unspecified (5) CAD (coronary artery disease), [place] coronary artery Associated angina: without angina [place] vs. transplanted heart: [place] heart Qualified Code(s): I25.10 - Atherosclerotic heart disease of [place] coronary artery without angina pectoris (6) PNA (pneumonia) Laterality: right Lung location: middle lobe of lung Pneumonia type: due to unspecified organism Qualified Code(s): J18.1 - Lobar pneumonia, unspecified organism
[2018-06-10] MEDS: ACETAMINOPHEN 325 MG TAB PO PRN (00:32)
[2018-06-10] MEDS: PIPERACILLIN/TAZOBACTAM 3.375 GM in DEXTROSE 5% 100 ML IV SCH (06:10)
[2018-06-10] MEDS: HEPARIN SOD 5,000 UNIT/0.5 ML VIAL SQ SCH ×3 (06:12→20:17)
[2018-06-10] MEDS: LEVOTHYROXINE SODIUM 100 MCG TABLET PO SCH (06:15)
[2018-06-10 06:39] LABS: Hematocrit (blood only) 31.2 % (42-52); Hemoglobin 10.2 g/dL (14.0-18.0); Mean Corpuscular Hgb Conc 32.7 g/dL (32-36); Mean Corpuscular Volume 85.2 fL (80-100); Mean Platelet Volume 9.4 fL (7.4-10.4); Platelet Count 307 K/uL (130-400); RDW Standard Deviation 47.5 fL (36.4-46.3); Red Blood Count 3.66 M/uL (4.7-6.1); White Blood Count 14.71 K/uL (4.8-10.8)
[2018-06-10 07:06] LABS: BUN Creatinine Ratio 19.2 (10-20); Calcium 8.1 mg/dl (8.5-10.1); Creatinine Clr Calc Pharmacy 50.4 ml/min; Est GFR (African American) 68.3; Est GFR (Non-African American) 58.9; Potassium 3.9 mmol/L (3.5-5.1)
[2018-06-10] MEDS: CITALOPRAM 20 MG TAB PO SCH (08:12)
[2018-06-10] MEDS: ISOSORBIDE MONO EXTENDED REL 30 MG TABCR PO SCH (11:08)
[2018-06-10] MEDS: CEFDINIR 300 MG CAP PO SCH ×2 (11:08→21:07)
[2018-06-10] MEDS: CARVEDILOL 3.125 MG TAB PO SCH ×2 (11:08→21:07)
--- NOTE | 2018-06-10 14:17 | Urology Progress Note ---
Date of Service June 10, 2018 Assessment & Plan (1) Severe sepsis: seems to have improved with cpap and stent lactic acidosis cleared respiratory status now stable and remains off oxygen. BP has been stable creatinine trending down but not yet normal. keep myles indefinitely in a few to several weeks he should have a left ureteroscopy under general anesthesia to biopsy the suspected left urothelial lesions. Keep stent until then. I will need to get records from Dr Maddox Subjective patient awake and alert lying in bed. Offers no complaint. His myles is with bloody urine. He understands where he is now but is understandably fuzzy on what happened last few days. He is tolerating PO food. Review of Systems Review of Systems: no fever, no chills, + tired, + eakness, no chest pain, no SOB, no BM, no rash. mild abdominal pain Physical Exam Constitutional: WD/WN, vitals as above well developed and + overweight; no acute distress Genitourinary: myles in place draining bloody urine Results & Data Vital Signs (Past 12 Hours) Vital Signs Temp Pulse Resp BP Pulse Ox 06/10/18 11:26 36.6 C 69 18 159/94 H 95 06/10/18 07:57 36.6 C 74 18 131/77 92 06/10/18 04:00 36.3 C L 66 20 162/88 H 93
[2018-06-10] MEDS: DONEPEZIL HCL 10 MG TAB PO SCH (21:07)
[2018-06-10] MEDS: MEMANTINE HCL 10 MG TAB PO SCH (21:07)
--- NOTE | 2018-06-10 21:26 | Hospitalist Progress Note ---
Date of Service June 10, 2018 Assessment & Plan (1) Severe sepsis: Patient had presented with sepsis at time of admission due to UTI and LLL pneumonia. Appeared to be making slow recovery from such. On 06/08/18 the patient developed acute decompensation with altered MS, worsening BP, and lactic acidosis. SBP dropped to 70s/80s requiring multiple saline boluses. CT abd/pelvis showed b/l renal masses and left-sided, severe hydronephrosis consistent with obstruction likely from the renal mass. He emergently went to the OR with Dr Paula Epps from urology for left- sided stent placement followed by admission to the ICU. Blood cx's continue to be negative. Stop zosyn today. Start omnicef 300 BID starting tonight. Plan 10 days of Rx. (2) Acute respiratory failure with hypercapnia: In setting of severe sepsis. Resolved. (3) UTI (urinary tract infection): 2nd to morganella. day #6 of antibiotics. blood cx's have remained negative. Stop zosyn. Transition to omnicef 300mg BID. Plan 10 days in total. (4) Hydronephrosis: left-sided severe POD #2 s/p emergent ureteral stent placement appreciate urology assistance stent should remain until he has biopsy of one of the masses (5) Bilateral renal masses: family reports that patient underwent a cystoscopy in [place] sometime in the recent past. they could not give much in the way of details but did say they were told he "had a mass that needed to come out." he ultimately will need biopsy for definitive diagnosis. Dr. Epps to coordinate this. (6) PNA (pneumonia): LLL. day #6 of Rx. clinically resolving. (7) Metabolic encephalopathy: 2nd to UTI and pneumonia in setting of severe sepsis and baseline dementia. resolved. (8) Acute kidney injury: resolved (9) Hypothyroidism: TSH compensated cont synthroid as is (10) CAD (coronary artery disease), [place] coronary artery: no ischemic sx's during the stay (11) HTN (hypertension), benign: resumed coreg (12) BPH w urinary obs/LUTS: myles is in place (13) Atrial fibrillation: NSR on EKG holding xarelto in setting of gross hematuria and urinary tract instrumentation (14) Cardiac pacemaker in situ: noted (15) Hypokalemia: resolved (16) DVT prophylaxis: scds holding xarelto PT, OT progressing Subjective pt w/o complaints except for mild back pain tele stable overnight he is eating better urine in myles is improving (less grossly bloody) Review of Systems Constitutional: no fever Respiratory: no cough and no dyspnea Cardiovascular: no chest pain Gastrointestinal: no abdominal pain, no nausea and no vomiting Physical Exam Constitutional: no acute distress ENMT: external ear and nose normal, oropharynx normal Respiratory: normal respiratory effort, lungs clear to auscultation Auscultation: + crackles (fine, left base) Cardiovascular: Rate/Rhythm: regular rate and regular rhythm Heart Sounds: normal S1, normal S2 and + murmur (2/6 LSB and RUSB) Vessels: posterior tibial pulses present and dorsalis pedis pulses present; no JVD Extremities: no edema Gastrointestinal (Abdomen): normal bowel sounds, soft, nontender, no hepatosplenomegaly Musculoskeletal: mild b/l flank pain Psychiatric: Orientation: alert, oriented to person and oriented to place; + not oriented to time Results & Data Vital Signs (Past 12 Hours) Vital Signs Temp Pulse Resp BP Pulse Ox 06/10/18 19:11 37.1 C 77 18 137/75 91 06/10/18 16:00 71 06/10/18 15:35 36.8 C 69 20 138/76 91 06/10/18 11:26 36.6 C 69 18 159/94 H 95 Laboratory Results Laboratory Results - last 24 hr 06/10/18 06/10/18 06:27 06:27 WBC 14.71 H RBC 3.66 L Hgb 10.2 L Hct 31.2 L MCV 85.2 MCH 27.9 MCHC 32.7 RDW Std Deviation 47.5 H RDW Coeff of Curtis 15.0 H Plt Count 307 MPV 9.4 Sodium 138 Potassium 3.9 Chloride 105 Carbon Dioxide 30 Anion Gap 3.0 BUN 23 H Creatinine 1.17 Est Cr Clr Drug Dosing 50.4 Est GFR ( Amer) 68.3 Est GFR (Non-Af Amer) 58.9 BUN/Creatinine Ratio 19.2 Glucose 82 Calcium 8.1 L (1) UTI (urinary tract infection) Hematuria presence: without hematuria Urinary tract infection type: site unspecified Qualified Code(s): N39.0 - Urinary tract infection, site not specified (2) Hydronephrosis Hydronephrosis type: unspecified Qualified Code(s): N13.30 - Unspecified hydronephrosis (3) Atrial fibrillation Atrial fibrillation type: permanent Qualified Code(s): I48.2 - Chronic atrial fibrillation (4) Hypothyroidism Hypothyroidism type: acquired Qualified Code(s): E03.9 - Hypothyroidism, unspecified (5) CAD (coronary artery disease), [place] coronary artery Associated angina: without angina [place] vs. transplanted heart: [place] heart Qualified Code(s): I25.10 - Atherosclerotic heart disease of [place] coronary artery without angina pectoris (6) PNA (pneumonia) Laterality: right Lung location: middle lobe of lung Pneumonia type: due to unspecified organism Qualified Code(s): J18.1 - Lobar pneumonia, unspecified organism
[2018-06-11] MEDS: LEVOTHYROXINE SODIUM 100 MCG TABLET PO SCH (05:36)
[2018-06-11] MEDS: HEPARIN SOD 5,000 UNIT/0.5 ML VIAL SQ SCH ×3 (05:36→20:41)
[2018-06-11 07:12] LABS: Hematocrit (blood only) 29.2 % (42-52); Hemoglobin 9.7 g/dL (14.0-18.0); Mean Corpuscular Hgb Conc 33.2 g/dL (32-36); Mean Corpuscular Volume 84.4 fL (80-100); Mean Platelet Volume 10.1 fL (7.4-10.4); Platelet Count 327 K/uL (130-400); RDW Coefficient of Variation 15.2 % (11.5-14.5); Red Blood Count 3.46 M/uL (4.7-6.1); White Blood Count 10.31 K/uL (4.8-10.8)
[2018-06-11 07:47] LABS: BUN Creatinine Ratio 13.3 (10-20); Calcium 8.3 mg/dl (8.5-10.1); Creatinine Clr Calc Pharmacy 51.6 ml/min; Est GFR (African American) 71.3; Est GFR (Non-African American) 61.5; Potassium 3.6 mmol/L (3.5-5.1)
[2018-06-11] MEDS: ACETAMINOPHEN 325 MG TAB PO PRN ×3 (09:03→23:06)
[2018-06-11] MEDS: CITALOPRAM 20 MG TAB PO SCH (09:04)
[2018-06-11] MEDS: CEFDINIR 300 MG CAP PO SCH ×2 (09:04→20:42)
[2018-06-11] MEDS: ISOSORBIDE MONO EXTENDED REL 30 MG TABCR PO SCH (09:05)
[2018-06-11] MEDS: MEMANTINE HCL 10 MG TAB PO SCH ×2 (09:05→20:40)
[2018-06-11] MEDS: CARVEDILOL 3.125 MG TAB PO SCH ×2 (09:41→20:41)
--- NOTE | 2018-06-11 13:30 | Urology Progress Note ---
Date of Service June 11, 2018 Assessment & Plan (1) Hydronephrosis: will need surgery in a few weeks to investigate the source of the hydronephrosis left side. He had urinary retention and was non compliant with cic at home so I suggest he keep Myles catheter. He may resume eliquis tomorrow if ok with primary service. Will have to be stopped 2 days prior to next surgery. Present on Admission?: Yes Subjective Patient awake looks tired but answers all questions. Reports some abdomnal and back pain. Eating fair. Breathing comfortably. Review of Systems Review of Systems: All systems reviewed & are unremarkable except as noted in HPI & below Physical Exam Constitutional: WD/WN, vitals as above Respiratory: normal respiratory effort; no respiratory distress, no labored breathing, no retractions and no cough Gastrointestinal (Abdomen): Percussion/Palpation: + abdomen tender and abdomen soft; no abdominal mass Genitourinary: he has a myles in place draining yellow urine with moderate white sediment. Results & Data Vital Signs (Past 12 Hours) Vital Signs Temp Pulse Resp BP Pulse Ox 06/11/18 11:25 36.6 C 70 16 133/77 96 06/11/18 07:22 36.7 C 73 17 154/82 H 90 06/11/18 04:00 36.9 C 75 18 149/78 H 92 (1) Hydronephrosis Hydronephrosis type: unspecified Qualified Code(s): N13.30 - Unspecified hydronephrosis
[2018-06-11] MEDS: DONEPEZIL HCL 10 MG TAB PO SCH (20:40)
--- NOTE | 2018-06-11 21:06 | Hospitalist Progress Note ---
Date of Service June 11, 2018 Assessment & Plan (1) Severe sepsis: Patient had presented with sepsis at time of admission due to UTI and LLL pneumonia. Appeared to be making slow recovery from such over the first portion of his stay. On 06/08/18 the patient developed acute decompensation with altered MS, worsening BP, and lactic acidosis. SBP dropped to 70s/80s requiring multiple saline boluses. CT abd/pelvis showed b/l renal masses and left-sided, severe hydronephrosis consistent with obstruction likely from the renal mass. He emergently went to the OR with Dr Paula Epps from urology for left- sided stent placement followed by admission to the ICU. He stayed in ICU 1 night and d/c from ICU the next day. Hypotension resolved quickly w/ fluid resuscitation. Blood cx's continue to be negative. Received multiple days of IV abx. Now on omnicef 300 BID. Today is day # 6-7. Plan 10-14 days of antibiotic therapy to cover urine/lungs. (2) Acute respiratory failure with hypercapnia: In setting of severe sepsis. Resolved. (3) UTI (urinary tract infection): 2nd to morganella. day #6-7 of antibiotics. blood cx's have remained negative. Had received broad-spectrum IV abx therapy. Transitioned to omnicef 300mg BID. Plan 10-14 days in total. (4) Hydronephrosis: left-sided severe POD #3 s/p emergent ureteral stent placement appreciate urology assistance stent should remain until he has biopsy of one of the masses myles should remain at discharge as well will need f/u with Dr Paula Epps from urology within 1-2 weeks post- discharge (5) Bilateral renal masses: family reports that patient underwent a cystoscopy in [place] sometime in the recent past. they could not give much in the way of details but did say they were told he "had a mass that needed to come out." he ultimately will need biopsy for definitive diagnosis. Dr. Epps to coordinate this. highly concerning for b/l renal cell ca, urothelial ca, etc would need to be off anticoagulation minimum 2 days prior to biopsy (6) PNA (pneumonia): LLL. seen on cxr and CT. day #6-7 of Rx. clinically resolving. (7) Metabolic encephalopathy: 2nd to UTI and pneumonia in setting of severe sepsis and baseline dementia. resolved. (8) Acute kidney injury: resolved (9) Hypothyroidism: TSH compensated cont synthroid as is (10) CAD (coronary artery disease), [place] coronary artery: no ischemic sx's during the stay (11) HTN (hypertension), benign: resumed coreg (12) BPH w urinary obs/LUTS: myles is in place resume flomax in am (13) Atrial fibrillation: NSR on EKG his xarelto had been held in setting of gross hematuria and urinary tract instrumentation for stenting Dr Supriya manzo with resuming anticoagulation tomorrow gross hematuria now resolved H/H stable will change his xarelto to eliquis starting tomorrow as the 1/2 life is shorter and if he has any bleeding it will exit his system faster (14) Cardiac pacemaker in situ: noted (15) Hypokalemia: resolved (16) Mild cognitive impairment: MCI / mild dementia at baseline mental status at baseline last 2-3 days (17) DVT prophylaxis: scds resume anticoagulation tomorrow PT, OT evals done -- he can return home w/ his family and will need home PT/OT updated pt's daughter/ by phone 06/11 d/c on 06/12?? again he will go home with myles Subjective pt feeling well denies any back or abdominal pain eating very well - consuming 100% of meals tele stable urine in myles bag now clear telling stories which is his baseline mental status family updated by phone today Review of Systems Respiratory: no dyspnea Cardiovascular: no chest pain, no orthopnea, no paroxysmal nocturnal dyspnea and no edema Gastrointestinal: no abdominal pain, no nausea and no vomiting Physical Exam Constitutional: no acute distress ENMT: external ear and nose normal, oropharynx normal Respiratory: normal respiratory effort, lungs clear to auscultation Cardiovascular: Rate/Rhythm: regular rate and regular rhythm Heart Sounds: normal S1, normal S2 and + murmur (2/6 LSB and RUSB) Vessels: posterior tibial pulses present and dorsalis pedis pulses present; no JVD Extremities: no edema Gastrointestinal (Abdomen): normal bowel sounds, soft, nontender, no hepatosplenomegaly Musculoskeletal: no back or flank pain to palpation Psychiatric: Orientation: alert, oriented to person and oriented to place; + not oriented to time Results & Data Vital Signs (Past 12 Hours) Vital Signs Temp Pulse Resp BP Pulse Ox 06/11/18 20:01 36.7 C 69 20 117/73 95 06/11/18 16:00 36.4 C L 65 20 142/85 H 94 06/11/18 11:25 36.6 C 70 16 133/77 96 Laboratory Results Laboratory Results - last 24 hr 06/11/18 06/11/18 06:32 06:32 WBC 10.31 RBC 3.46 L Hgb 9.7 L Hct 29.2 L MCV 84.4 MCH 28.0 MCHC 33.2 RDW Std Deviation 47.0 H RDW Coeff of [place] 15.2 H Plt Count 327 MPV 10.1 Sodium 140 Potassium 3.6 Chloride 105 Carbon Dioxide 29 Anion Gap 6.0 BUN 15 Creatinine 1.13 Est Cr Clr Drug Dosing 51.6 Est GFR ( Amer) 71.3 Est GFR (Non-Af Amer) 61.5 BUN/Creatinine Ratio 13.3 Glucose 77 Calcium 8.3 L (1) UTI (urinary tract infection) Hematuria presence: without hematuria Urinary tract infection type: site unspecified Qualified Code(s): N39.0 - Urinary tract infection, site not specified (2) Hydronephrosis Hydronephrosis type: unspecified Qualified Code(s): N13.30 - Unspecified hydronephrosis (3) Atrial fibrillation Atrial fibrillation type: permanent Qualified Code(s): I48.2 - Chronic atrial fibrillation (4) Hypothyroidism Hypothyroidism type: acquired Qualified Code(s): E03.9 - Hypothyroidism, unspecified (5) CAD (coronary artery disease), teller coronary artery Associated angina: without angina [place] vs. transplanted heart: teller heart Qualified Code(s): I25.10 - Atherosclerotic heart disease of teller coronary artery without angina pectoris (6) PNA (pneumonia) Laterality: right Lung location: middle lobe of lung Pneumonia type: due to unspecified organism Qualified Code(s): J18.1 - Lobar pneumonia, unspecified organism
[2018-06-12] MEDS: HEPARIN SOD 5,000 UNIT/0.5 ML VIAL SQ SCH (05:37)
[2018-06-12] MEDS: LEVOTHYROXINE SODIUM 100 MCG TABLET PO SCH (05:37)
[2018-06-12 07:15] VITALS: TEMP 98.1
[2018-06-12] MEDS: ACETAMINOPHEN 325 MG TAB PO PRN (08:20)
[2018-06-12] MEDS: CEFDINIR 300 MG CAP PO SCH (08:20)
[2018-06-12] MEDS: ISOSORBIDE MONO EXTENDED REL 30 MG TABCR PO SCH (08:21)
[2018-06-12] MEDS: CITALOPRAM 20 MG TAB PO SCH (08:21)
[2018-06-12] MEDS: CARVEDILOL 3.125 MG TAB PO SCH (08:21)
[2018-06-12] MEDS ORDERED: TAMSULOSIN HCL 0.4 MG CAP PO SCH (09:00)
[2018-06-12] MEDS ORDERED: APIXABAN 2.5 MG TAB PO SCH (09:00)
[2018-06-12] MEDS: MEMANTINE HCL 10 MG TAB PO SCH (09:07)
[2018-06-12 12:17] VITALS: BP 117/73; O2SAT 94
--- NOTE | 2018-06-12 13:05 | Discharge Summary ---
Date of Service June 12, 2018 Admission HPI Per Admitting Provider 78 y/o M Hx PAF, pacer, CAD, HTN, HLD, hypothyroid, mild dementia, BPH requiring self-catheterization. The pt has become weak and disoriented over the past 2 days. He is normally independent and ambulatory. He was unable to stand himself up and was only oriented to place and self per his daughter. At the time of admission, he is able to converse with me, although he cannot provide any reliable information or tell me why he presented to the hospital. On arrival to the ER it was noted that his oxygen saturation was low. He had not reported SOB or a cough. A CXR demonstrated a LLL infiltrate. Labs were notable for a +UA, significant leukocytosis and ARF. PMH: 1) Paroxysmal AF - pacer 2) HTN 3) HLD 4) CAD - distant MA and 1 stent 5) Mild dementia 6) Hypothyroidism 7) BPH with obstruction requiring self-catheterization Surgical: Lumbar fusion, TKR Social: States he quit smoking and drinking in his 30s Family: States both parents due to "old age" Principal Diagnosis UTI, severe sepsis, Pneumonia Discharge Exam Constitutional WD/WN, vitals as above Eyes PERRL, conjunctivae normal, anicteric sclerae ENMT external ear and nose normal, oropharynx normal Neck trachea midline, no thyromegaly Respiratory normal respiratory effort, lungs clear to auscultation Cardiovascular RRR, no murmur, no edema Gastrointestinal (Abdomen) normal bowel sounds, soft, nontender, no hepatosplenomegaly Musculoskeletal Extremities: extremities normal to inspection; no cyanosis and no clubbing Skin no rashes, warm and dry Neurologic moves all extremities and awake; no focal motor deficits Psychiatric Orientation: alert, oriented to person, oriented to place and cooperative Eye Contact: good eye contact Genitourinary Myles in place with clear yellow urine Discharge Data Allergies Allergy/AdvReac Type Severity Reaction Status Date / Time captopril Allergy Severe ANAPHYLAXIS Verified 07/28/17 10:55 Iodinated Contrast- Oral and Allergy Severe ANAPHYLAXIS Verified 07/28/17 10:55 IV Dye levofloxacin Allergy Severe ANAPHYLAXIS Verified 07/28/17 10:55 oxaprozin Allergy Severe ANAPHYLAXIS Verified 07/28/17 10:55 torsemide Allergy Severe ANAPHYLAXIS Verified 07/28/17 10:55 hydrocodone Allergy Mild RASH Verified 07/28/17 10:55 morphine Allergy Unknown UNKNOWN Verified 07/28/17 10:55 Sulfa (Sulfonamide Allergy Unknown UNKNOWN Verified 07/28/17 10:55 Antibiotics) Consultations Urology Proof Sorter Procedures Performed Operation Date: 06/08/18 17:50 Actual Procedures p Cystoscopy; Left Ureteral Stent Placement(Left) - Paula Epps MD Ordered Studies 06/05/18 19:30 CT head/brain wo con Stat 06/08/18 FL KUB Routine FL fluoroscopy <1hr Routine 06/08/18 09:13 CT abd pelvis wo con Routine CXR x 2 Hospital Course (1) Severe sepsis: Patient had presented with sepsis at time of admission due to UTI and LLL pneumonia. Appeared to be making slow recovery from such over the first portion of his stay. On 06/08/18 the patient developed acute decompensation with altered MS, worsening BP, and lactic acidosis. SBP dropped to 70-80s requiring multiple saline boluses. CT abd/pelvis showed b/l renal masses and left-sided, severe hydronephrosis consistent with obstruction likely from the renal mass. He emergently went to the OR with Dr Paula Epps from urology for left- sided stent placement followed by admission to the ICU. He stayed in ICU 1 night and d/c from ICU the next day. Hypotension resolved quickly w/ fluid resuscitation. Blood cx's continue to be negative. Received multiple days of IV abx. Now on omnicef 300 BID. Today is day # 7 of 14. Plan 14 days of antibiotic therapy to cover both the urine/lungs. (2) Acute respiratory failure with hypercapnia: In setting of severe sepsis. Resolved. -continue qhs BiPAP at home (3) UTI (urinary tract infection): 2nd to morganella. day #7 of antibiotics as above. blood cx's have remained negative. Had received broad-spectrum IV abx therapy. Transitioned to omnicef 300mg BID. (4) Hydronephrosis: left-sided severe POD #4 s/p emergent ureteral stent placement appreciate urology assistance stent should remain until he has biopsy of one of the masses myles should remain at discharge as well will need f/u with Dr Paula Epps from urology within 1-2 weeks post- discharge (5) Bilateral renal masses: family reports that patient underwent a cystoscopy in [place] sometime in the recent past. they could not give much in the way of details but did say they were told he "had a mass that needed to come out." he ultimately will need biopsy for definitive diagnosis. Dr. Epps to coordinate this. highly concerning for b/l renal cell ca, urothelial ca, etc would need to be off anticoagulation minimum 2 days prior to biopsy -Urology plans on surgery to biopsy masses after discharge (6) PNA (pneumonia): LLL. seen on cxr and CT. day #7 of Rx. clinically resolved (7) Metabolic encephalopathy: Secondary to UTI and pneumonia in setting of severe sepsis and baseline dementia. resolved. (8) Acute kidney injury: resolved (9) Hypothyroidism: TSH compensated cont synthroid as is (10) CAD (coronary artery disease), [place] coronary artery: no ischemic sx's during the stay -continue ASA, isosorbide, statin, Coreg (11) HTN (hypertension), benign: BPs were low and BP meds were held, now restarted coreg, isosorbide, doing well -ok to resume home HCTZ on discharge (12) BPH w urinary obs/LUTS: myles is in place -continue flomax (13) Atrial fibrillation: NSR on EKG his xarelto had been held in setting of gross hematuria and urinary tract instrumentation for stenting Dr Epps ok with resuming anticoagulation on day of discharge gross hematuria now resolved H/H stable His Xarelto was CHANGED to Eliquis on the day of discharge as the 1/2 life is shorter and if he has any bleeding it will exit his system faster-he was instructed to STOP the Xarelto Eliquis will need to be held for 2 days prior to a renal biopsy (14) Cardiac pacemaker in situ: noted (15) Hypokalemia: resolved (16) Mild cognitive impairment: MCI / mild dementia at baseline mental status at baseline now (17) DVT prophylaxis: scds, Eliquis PT, OT evals done -- he can return home w/ his family and will need home PT/OT updated pt's by phone 06/12 Stable for dc to home Total Time Total Time Spent Total Time Spent (In Minutes): >30 min Total Time Includes: Examination of the Patient, Discharge Planning and Medication Reconciliation Discharge Plan Discharge Items Patient Disposition: Home - Home Health Services Reason For Visit: UTI, AMS, GIOVANY Discharge Diagnosis: UTI, Pneumonia, ureteral obstruction, renal masses Condition: Fair Discharge Goals: Decrease discomfort, Diagnostic testing, Improve disease control, Learn about illness and Therapeutic intervention Activity: As commented below Lifting: Gradually increase as tolerated Bathing: No limitations Exercise/Sports: As tolerated Non-emergency contact: Primary Care Provider and Urologist Call non-emergency contact if: you have any medication questions, your symptoms worsen, your pain is not controlled, your pain is worsening, your pain is unusual for you, your pain is concerning for you, you have a fever and your temperature is above 100.5 Follow-up/Referrals: Celina Saunders DO [Primary Care Provider] - Paula Epps MD [Physician] - (Call for an appointment within 1 week.) Diet: Heart Healthy Addtl Provider Instructions: Please finish out the course of antibiotics for your pneumonia and urinary tract infection. You had a stent placed in your ureter by the Urologist and it is very important that you follow up with the Urologist within 1 week for this. In the meantime, if you have a fever, worsening abdominal or back pain, significant weakness, or bleeding in your urine, please call your doctor or come to the hospital right away. You have a Myles catheter in place in your bladder that should remain in place until the Urologist removes it. Your blood thinner was changed from Xarelto to Eliquis as this is a better medication in your circumstances. A prescription for this was sent to your pharmacy. Please follow up with your PCP within 1-2 weeks as well. Prescriptions: New cefdinir 300 mg Capsule 300 mg PO BID Qty: 14 RF: 0 Eliquis 2.5 mg Tablet 5 mg PO BID Qty: 60 RF: 0 Continued nitroglycerin [Nitromist] 400 mcg/spray Aerosol,[place] 1 spray sublingual UD PRN (Reason: Chest Pain) RF: 0 citalopram [Celexa] 10 mg tablet 10 mg PO DAILY RF: 0 donepezil 10 mg Tablet 10 mg PO HS RF: 0 cyanocobalamin (vitamin B-12) [Vitamin B-12] 1,000 mcg Tablet 1,000 mcg PO DAILY RF: 0 simvastatin 80 mg Tablet 80 mg PO PM RF: 0 aspirin [Aspir-81] 81 mg Tablet,Delayed Release (Dr/Ec) 81 mg PO DAILY RF: 0 tramadol 50 mg Tablet 50 - 100 mg PO DAILY PRN (Reason: Pain) RF: 0 carvedilol [Coreg] 3.125 mg tablet 3.125 mg PO BID RF: 0 levothyroxine 100 mcg tablet 100 mcg PO DAILY RF: 0 isosorbide mononitrate 60 mg tablet extended release 24 hr 30 mg PO DAILY RF: 0 calcium carbonate [Calcium 600] 600 mg calcium (1,500 mg) Tablet 1,200 mg PO DAILY RF: 0 tamsulosin 0.4 mg Capsule 0.4 mg PO DAILY RF: 0 docusate sodium [Stool Softener] 100 mg Capsule 300 mg PO DAILY RF: 0 gabapentin 300 mg Capsule 300 mg PO DAILY RF: 0 hydrochlorothiazide 25 mg tablet 12.5 mg PO DAILY RF: 0 bethanechol chloride [Urecholine] 50 mg tablet 50 mg PO QID RF: 0 epinephrine [EpiPen] 0.3 mg/0.3 mL Auto-Injector 0.3 mg IM UD PRN (Reason: Allergic Reaction) RF: 0 memantine [Namenda] 10 mg tablet 10 mg PO BID RF: 0 Discontinued Xarelto 20 mg tablet 20 mg PO DAILY RF: 0 Stand-Alone Forms: [facility] Discharge Orders: Discharge Order (Routine); Ordered 06/12/18 Ordered By: Maryan Cook Admission Data Admit Date/Time: 06/05/18 21:41 Attending Provider: Maryan Cook Admit Provider: Dominic Vargas Primary Care Provider: Celina Saunders Other Providers: Dominic Vargas ; Paula Epps ; Chidi Lewis ; IRB Approved Study,[place] Service: Telemetry Other Pending Studies at Discharge: No
[2018-06-12 13:21] VITALS: PULSE 71
== END 2018-06-12 15:33 | disposition home health service (06) | DRG 853 ==
LOC: ED 19:12 → SUATTDRO 21:41 → 4E 21:41 → 1E 06-08 16:09 → 2N 06-09 15:09

== ENCOUNTER 2018-08-26 08:24 | Inpatient (IN) ==
[2018-08-26 09:08] LABS: Appearance Urine Turbid (Clear); Bacteria Urine Automated Negative (Negative); Bilirubin Urine Negative (Negative); Color Urine Orange; Glucose Urine UA Negative (Negative); Ketones Urine Negative (Negative); Leukocyte Esterase Urine 3+ (Negative); Nitrite Urine Negative (Negative); Protein Urine 2+ (Negative); Specific Gravity Urine 1.013 (1.000-1.030); Urobilinogen Urine Negative (Negative); WBC Urine Automated >30 /hpf (0-5)
[2018-08-26 09:18] LABS: Basophils # (auto) 0.03 K/uL (0-0.2); Basophils % (auto) 0.2 %; Eosinophils % (auto) 0.6 %; Hematocrit (blood only) 32.5 % (42-52); Hemoglobin 11.1 g/dL (14.0-18.0); Immature Granulocytes # (auto) 0.03 K/uL (0.00-0.02); Immature Granulocytes % (auto) 0.2 %; Lymphocytes % (auto) 7.6 %; Mean Corpuscular Hgb Conc 34.2 g/dL (32-36); Mean Corpuscular Volume 88.1 fL (80-100); Monocytes # (auto) 2.32 K/uL (0.11-0.59); Monocytes % (auto) 14.6 %; Neutrophils # (auto) 12.17 K/uL (1.4-6.5); Neutrophils % (auto) 76.8 %; Platelet Count 270 K/uL (130-400); RDW Coefficient of Variation 14.8 % (11.5-14.5); RDW Standard Deviation 47.4 fL (36.4-46.3); Red Blood Count 3.69 M/uL (4.7-6.1); White Blood Count 15.85 K/uL (4.8-10.8)
--- NOTE | 2018-08-26 09:29 | CT Scan Report ---
CT head/brain wo con CLINICAL HISTORY: 78 years-old Male presenting with fall this morning, history of dementia. TECHNIQUE: Multidetector CT imaging of the head was performed without the use of intravenous contrast . IV contrast: None. One or more dose lowering techniques were used consistent with the principles of ALARA (as low as reasonably achievable), including automatic exposure control, mA or kV adjustment t o individual patient size, and/or use of iterative reconstruction. COMPARISON: 06/05/2018. CT DOSE (mGy.cm): The estimated cumulative dose is 968.04. FINDINGS: Vp Cardiovascular Service Line topogram: Left subclavian implanted cardiac device. Proportional ventricular and sulcal prominence, likely age-related parenchymal volume loss. No hemorr leo. Periventricular and subcortical white matter hypoattenuation, nonspecific but likely indicative of chronic small vessel ischemic change. No acute territorial infarct. No mass effect or midline ewelina ft. No extra-axial fluid collection. Paranasal sinuses and mastoid air cells clear. Calvarium intact. Postsurgical changes of the globes. IMPRESSION: 1. Chronic small vessel ischemic change. No acute intracranial abnormality. Electronically signed by: Rodo Clements M.D. 08/26/2018 9:27 AM
--- NOTE | 2018-08-26 09:33 | CT Scan Report ---
CT cervical spine wo con CLINICAL HISTORY: 78 years-old Male presenting with fall this morning, dementia. TECHNIQUE: Multidetector CT of the cervical spine was performed without the use of intravenous contra st. IV contrast: None. One or more dose lowering techniques were used consistent with the principles of ALARA (as low as reasonably achievable), including automatic exposure control, mA or kV adjustment to individual patient size, and/or use of iterative reconstruction. COMPARISON: None. CT DOSE (mGy.cm): The estimated cumulative dose is 968.04 mGy.cm. FINDINGS: Residential Program Director topogram: The patient is edentulous. Left subclavian implanted cardiac device. Exaggerated cervical lordosis. Vertebral bodies demonstrate mild height loss at C3 and C4 without a c ompression deformity suggesting chronic osteoporotic height loss. Remaining vertebral body symmetry n ormal height and alignment. Mild intervertebral disc height loss diffusely with small disc osteophyte complexes to varying degrees at every level. Multiple disc bulges are evident greatest at C3-4 resul ting in mild spinal canal narrowing. Facet arthropathy and uncovertebral hypertrophy result in osseou s neural foraminal narrowing at several levels. Advanced degenerative changes of the atlantodental ar ticulation with articulation of the basion with the dens. No acute fracture or subluxation. Lung apic es clear. Atherosclerosis noted. Paraspinal musculature within normal limits for age. IMPRESSION: 1. No acute osseous injury of the cervical spine. 2. Multilevel degenerative changes. Electronically signed by: Rodo Clements M.D. 08/26/2018 9:32 AM
[2018-08-26 09:37] LABS: BUN Creatinine Ratio 20.1 (10-20); Calcium 8.7 mg/dl (8.5-10.1); Creatinine Clr Calc Pharmacy 29.2 ml/min; Est GFR (African American) 35.5; Est GFR (Non-African American) 30.6; Potassium 2.8 mmol/L (3.5-5.1)
--- NOTE | 2018-08-26 09:48 | XRay Report ---
XR pelvis 1-2V routine CLINICAL HISTORY: 78 years-old Male presenting with fall. TECHNIQUE: Single frontal view of the pelvis was obtained. COMPARISON: Correlation made to CT of the abdomen and pelvis from 06/08/2018. FINDINGS: Bilateral ureteral stents in place. Penile implanted device in place. Osteopenia suspected. Advanced degenerative changes of the left hip joint with osseous remodeling of the left femoral head, which is flattened. Exuberant subchondral cystic change and sclerosis in the acetabulum and femoral head. Bon e-on-bone appearance along the superior aspect of the joint space. Right hip joint congruent with onl y mild degenerative changes. Sacroiliac joints with degenerative change and partial osseous fusion. P ubic symphysis congruent. Sacrum grossly unremarkable. No acute fracture or acute malalignment. Ather osclerosis. IMPRESSION: 1. Allowing for osteopenia, no acute osseous injury. 2. Severe degenerative changes of the left hip joint. Electronically signed by: Rodo Clements M.D. 08/26/2018 9:47 AM
[2018-08-26 09:49] LABS: Albumin Globulin Ratio 0.7 (0.9-2); Bilirubin,Total 0.8 mg/dl (0.2-1); Globulin 4.4 gm/dl (2.5-4.0); Total Protein 7.4 gm/dl (6.4-8.2)
--- NOTE | 2018-08-26 09:49 | XRay Report ---
XR lumbar spine 2-3V CLINICAL HISTORY: fall ,. Pain. COMPARISON STUDY: No previous studies for comparison. FINDINGS: Bilateral ureteral stents are present. Moderate generalized degenerative changes of the lum bar spine. Partial degenerative fusion of the L4-L5 complex. Degenerative changes of posterior elemen ts. No evidence for an acute compression deformity. IMPRESSION: Degenerative change. No acute process. The above report was generated using voice recognition software. It may contain grammatical, syntax or spelling errors. Electronically signed by: Trip Ramirez M.D. 08/26/2018 9:48 AM
[2018-08-26] MEDS ORDERED: SODIUM CHLORIDE 0.9% 1000ML 1,000 ML IV ONE (10:26)
[2018-08-26] MEDS ORDERED: POTASSIUM CHLORIDE 20 MEQ TABCR PO STA (10:26)
--- NOTE | 2018-08-26 10:37 | CT Scan Report ---
CT abd pelvis wo con CLINICAL HISTORY: 78 years-old Male presenting with previous renal mass and obstruction with sepsis. TECHNIQUE: Multidetector CT of the abdomen and pelvis was performed without the use of intravenous co ntrast. IV contrast: None. One or more dose lowering techniques were used consistent with the princip les of ALARA (as low as reasonably achievable), including automatic exposure control, mA or kV adjust ment to individual patient size, and/or use of iterative reconstruction. COMPARISON: 07/13/2018. CT DOSE (mGy.cm): The estimated cumulative dose is 463.20 mGy.cm. FINDINGS: [facility] topogram: Pacer leads of the right atrium and right ventricular apex. Cholecystectomy clips. Bi lateral ureteral stents. Penile implant. Lung bases: Multichamber enlargement of the heart. Coronary artery and aortic valve calcification. Pa cer leads noted. No pericardial or pleural effusion. Reticulation in a dependent distribution at the lung bases may represent scarring or atelectasis. Mild bronchial wall thickening in the lower lobes m ay relate to chronic aspiration. Liver: Normal morphology. Density borderline for hepatic steatosis. Few punctate parenchymal calcific ations. Biliary: Mild biliary ductal prominence likely a reservoir effect in the post cholecystectomy state. Gallbladder surgically absent. Pancreas: Mild parenchymal atrophy. Spleen: Parenchymal calcifications suggest a history of granulomatous disease. Adrenal glands: Normal noncontrast appearance. Kidneys and ureters: Bilateral ureteral stents in place. Right hydronephrosis is new from prior. Pers istent apparent left hydronephrosis. Atrophy of the left kidney with several cysts noted. Urothelial thickening of the right urinary collecting system. Moderate right perinephric fat stranding is somewh at asymmetric in comparison to the left. Evaluation for solid renal or urothelial lesion is extremely limited in the absence of intravenous contrast. Bladder: Ureteral stents terminate in the bladder lumen, which is decompressed with a Michel catheter. Pelvic organs: Penile implant in place. The prostate may be surgically absent or atrophic. Bowel: Normal appendix. No bowel obstruction. Peritoneal cavity: No free fluid or intraperitoneal gas. Lymph nodes: No gross lymphadenopathy allowing for noncontrast technique. Vasculature: Atherosclerosis of the normal caliber abdominal aorta. Abdominal wall: Fat-containing bilateral inguinal hernias. Fat-containing umbilical hernia. Musculoskeletal: Degenerative changes of the spine. Degenerative changes of the right hip. Severe deg enerative changes of the left hip. Degenerative changes of the sacroiliac joints. IMPRESSION: 1. Interval development of right hydronephrosis despite the presence of the right ureteral stent. A clear etiology for this obstruction is not apparent. 2. Right urothelial thickening could suggest underlying upper tract infection. Correlate with urinal ysis. 3. Extremely limited examination for solid renal or urothelial mass. If the patient cannot receive i ntravenous contrast, a noncontrast MRI would be recommended on a nonurgent basis for evaluation of th e reported right renal lesion. 4. Left ureteral stent in place with persistent distention of the left collecting system and chronic left renal atrophy. 5. Cardiomegaly. 6. Severe degenerative changes of the left hip. Electronically signed by: Rodo Clements M.D. 08/26/2018 10:35 AM
[2018-08-26] MEDS ORDERED: FLUCONAZOLE 200 MG/100 ML BAG IV SCH (12:15)
[2018-08-26] MEDS ORDERED: cefTRIAXone SODIUM 2,000 MG in DEXTROSE 5% 50 ML IV STA (12:15)
--- NOTE | 2018-08-26 13:24 | History & Physical Report ---
Date of Service August 26, 2018 Assessment & Plan (1) Acute UTI: UA noted for yeast, 3+ leuk est, neg nitrites, 3+ blood Will hold home abx Started on fluconazole/ceftriaxone in the ED, will continue Seen by Dr. Epps on last admission, however has been following with Dr. Medrano c/s pending Holding aspirin 81mg and eliquis given blood in urine and possible need for procedure, will need restarted when able myles in place (2) Fall: Possibly weakness due to above Unwitness, but was heard and therefore not down for any length of time PT/OT pending was recently placed in SNF with family helping at home (3) ARF (acute renal failure): Recent cr 1.37 2.0 on admission Monitor with gentle IVF (4) Hypokalemia: Replaced PO in the ED, monitor (5) BPH w urinary obs/LUTS: continue home meds (6) Atrial fibrillation: continue home meds other than holding aspirin 81mg and eliquis as noted above (7) Bilateral renal masses: as per urology (8) HTN (hypertension), benign: continue home meds (9) Hyperlipidemia: continue home meds (10) Hypothyroidism: continue home meds (11) CAD (coronary artery disease), [facility] coronary artery: continue home meds, holding aspirin 81mg (12) Hypothyroid: continue home meds (13) Depression: continue home meds (14) Dementia: continue home meds Monitor EKG given potential for fluconazole/aricept combination causing prolonged QT (15) Chronic pain: continue home meds (16) DVT prophylaxis: SCDs given blood in urine and possible procedure, monitor History of Present Illness Primary Care Provider: Celina Saunders DO 78 y/o M who was brought here today after a fall early this AM. Daughter who is present is not the daughter who usually takes care of pt as she is more involved in the care of pt's who has recently been placed in a SNF. She states that her sister told her that pt fell this AM, she thinks around 530-630. Other daughter heard pt hit the floor, so pt was not down for long. They believe it was a mechanical fall, although pt has dementia and cannot relay events. He was without LOC when she came into the room. He told daughter that he felt weak prior to falling. Pt complains a pain in his R chest, but states it has been present for weeks. Daughter confirms this. Pt has no other concerns at this time. Pt denies fever, SOB, abd pain, n/v/c/d, LE pain or swelling. Daughter states that she has not heard him or her sister mention other issues at home. He is eating without issue, but does continue to lose weight. Pt with recent UTI/sepsis due to obstruction with b/l renal masses. He also had a PNA at that time. Pt had 2 stents placed and was d/c'd on 06/[address] He has been on two abx since that time. He has had urology f/u. Daughter states there is some sort of urological procedure pending that would determine if cath could be d/c'd, but could not elaborate further. Daughter states that last week, pt's urine had a light red color. They had him drink more water and it returned to yellow. Allergies Allergy/AdvReac Type Severity Reaction Status Date / Time captopril Allergy Severe ANAPHYLAXIS Verified 08/26/18 08:43 Iodinated Contrast- Oral and Allergy Severe ANAPHYLAXIS Verified 08/26/18 08:43 IV Dye levofloxacin Allergy Severe ANAPHYLAXIS Verified 08/26/18 08:43 oxaprozin Allergy Severe ANAPHYLAXIS Verified 08/26/18 08:43 torsemide Allergy Severe ANAPHYLAXIS Verified 08/26/18 08:43 hydrocodone Allergy Mild RASH Verified 08/26/18 08:43 morphine Allergy Unknown Anaphylaxis Verified 08/26/18 08:43 Sulfa (Sulfonamide Allergy Unknown Anaphylaxis Verified 08/26/18 08:43 Antibiotics) Home Medications Home Medications Medication Instructions Recorded Confirmed Type aspirin [Aspir-81] 81 mg PO QAM 06/05/18 08/26/18 History bethanechol chloride [Urecholine] 50 mg PO QID 06/05/18 08/26/18 History carvedilol [Coreg] 3.125 mg PO BIDM 06/05/18 08/26/18 History citalopram [Celexa] 10 mg PO QDL 06/05/18 08/26/18 History donepezil 10 mg PO HS 06/05/18 08/26/18 History epinephrine [EpiPen] 0.3 mg IM UD PRN 06/05/18 08/26/18 History gabapentin 300 mg PO HS 06/05/18 08/26/18 History hydrochlorothiazide 12.5 mg PO QAM 06/05/18 08/26/18 History isosorbide mononitrate 60 mg PO QAM 06/05/18 08/26/18 History levothyroxine 100 mcg PO QAM 06/05/18 08/26/18 History memantine [Namenda] 10 mg PO BID 06/05/18 08/26/18 History nitroglycerin [Nitromist] 1 spray SUBLINGUAL UD PRN 06/05/18 08/26/18 History simvastatin 80 mg PO PM 06/05/18 08/26/18 History tamsulosin 0.4 mg PO QDD 06/05/18 08/26/18 History Eliquis 5 mg PO BID #60 tab 06/12/18 08/26/18 Rx tramadol 50 mg tablet 50 - 100 mg PO DAILY PRN #90 tab 08/15/18 08/26/18 Rx calcium carbonate [Calcium 600] 1,200 mg PO DAILY 08/26/18 08/26/18 History cyanocobalamin (vitamin B-12) 1,000 mcg PO DAILY 08/26/18 08/26/18 History [Vitamin B-12] ferrous sulfate 325 mg PO BIDM 08/26/18 08/26/18 History folic acid 1 mg PO DAILY 08/26/18 08/26/18 History Past Med/Surg History Medical History Anemia Cardiac pacemaker in situ [facility]. MOST RECENT PACER CHECK 05/19/18 Mild cognitive impairment HTN (hypertension), benign Hyperlipidemia Hypothyroidism CAD (coronary artery disease), [place] coronary artery S/P BMS to OM 1997. Caths also 2006, 2008 and 2013, no stents placed. Most recent cath in 2013 showed no angiographically significant stenosis other than 20-30% in-stent restenosis of OM. PNA (pneumonia) (Acute) During admission for septic UTI 05/2018. Discharged on ABX. Pre-op CXR 06/29 now shows persistent interstitial thickening but no acute parenchymal consolidation. O2 sat 96% on RA at PAT. BPH (benign prostatic hyperplasia) History of kidney stones Hx of gastric ulcer Hx of myocardial infarction 1998 Hx of sleep apnea Does not use CPAP at home Intermittent self-catheterization of bladder SSS (sick sinus syndrome) s/p pacemaker 2008, generator change 2017. UTI (urinary tract infection) ADMITTED [facility] 06/05 TO 06/12 FOR SEPTIC UTI 2/2 OBSTRUCTIVE UROPATHY. Surgical History H/O total knee replacement RIGHT AND LEFT History of cardiac cath + stents History of cataract surgery BOTH EYES History of lumbar fusion History of prostate surgery PARTIAL PROSTECTOMY Family History Father Family history of diabetes mellitus Mother FHx: heart disease Social History Preferred Language: Serbian Communication Ability: Effective Beliefs That Will Affect Care: None Current Living Situation: Family Feels Safe at Home: Yes Safety Concerns: Feels Safe At This Time Smoking Status: Former smoker Tobacco Type: cigarettes, pipe, cigars and smokeless tobacco Second Hand Exposure: No Hx Alcohol Use: No Hx Substance Use: No Review of Systems Review of Systems: Pertinent positives and negatives reviewed in HPI--all others negative Physical Exam Constitutional: WD/WN, vitals as above Eyes: normal visual kang by confrontation and + anicteric sclerae Neck: normal visual inspection and trachea midline Respiratory: normal respiratory effort, lungs clear to auscultation Cardiovascular: Rate/Rhythm: regular rate and regular rhythm Gastrointestinal (Abdomen): Inspection/Auscultation: abdomen not distended Percussion/Palpation: abdomen soft; abdomen nontender Musculoskeletal: Head/Neck/Chest: normocephalic and head atraumatic negative for edema, peripheral pulses intact Skin: no rashes, warm and dry Neurologic: awake; not confused Speech / Cognition: normal speech Psychiatric: Orientation: oriented to person, oriented to place and cooperative; + not oriented to time (daughter states this is baseline) Eye Contact: good eye contact Speech: normal rate/rhythm/volume of speech Affect: euthymic affect Results & Data Vital Signs (Past 12 Hours) Vital Signs Temp Pulse Pulse Resp BP BP Pulse Ox 08/26/18 11:22 67 19 146/78 H 92 08/26/18 10:17 63 18 137/71 94 08/26/18 08:35 36.8 C 73 17 135/91 95 Diagnostic Findings CTAP: R hydronephrosis CT head: neg for acute Cspine CT: neg for acute Lspine/pelvic XR: neg for acute, but noted for severe L hip degeneration Code Status & VTE Plan Code Status Full code VTE Prophylaxis Plan VTE Prophylaxis will be ordered: Yes PG Care Time/CCT Total # of Minutes Spent Total Time Spent with Patient: Total time spent is greater than 50% in coordination of care (as documented) at patient's floor/unit and/or counseling patient: (1) Atrial fibrillation Atrial fibrillation type: permanent Qualified Code(s): I48.2 - Chronic atrial fibrillation (2) Hypothyroidism Hypothyroidism type: acquired Qualified Code(s): E03.9 - Hypothyroidism, unspecified (3) CAD (coronary artery disease), [place] coronary artery Associated angina: without angina [place] vs. transplanted heart: [place] heart Qualified Code(s): I25.10 - Atherosclerotic heart disease of [place] coronary artery without angina pectoris (4) Fall Encounter type: initial encounter Qualified Code(s): W19.XXXA - Unspecified fall, initial encounter
--- NOTE | 2018-08-26 14:43 | Emergency Department Note ---
Entered by Sadaf Canales acting as a scribe for History of Present Illness General Chief complaint: Fall Time Seen by Provider: 08/26/18 08:26 Source: family (daughter) and other (nursing staff) History of Present Illness Onset (ago): hour(s) (just prior to arrival) Location: back Pain Consistency: + other (episode) Quality: + other (fall) Associated symptoms: + other (positive back pain; negative loss of consciousness) The patient is a 78 year old male with PMHx of SSS, Afib, AL, HTN, HLD, and hypothyroidism who presents to the Emergency Room with complaints of an episode of a fall that occurred just prior to arrival. The patient's daughter states that the patient was getting out of bed this morning when he fell onto the ground. Per the patient's daughter, the patient's Michel catheter bag was not attached and there was urine surrounding the patient. The patient's daughter denies loss of consciousness. Per the patient's daughter the patient has been at his baseline since this fall. Per nursing staff, the patient complained of back pain. The patient's daughter states that the patient is currently on Eliquis. Home Medications Home Medications Medication Instructions Recorded Confirmed Type aspirin [Aspir-81] 81 mg PO QAM 06/05/18 08/26/18 History bethanechol chloride [Urecholine] 50 mg PO QID 06/05/18 08/26/18 History carvedilol [Coreg] 3.125 mg PO BIDM 06/05/18 08/26/18 History citalopram [Celexa] 10 mg PO QDL 06/05/18 08/26/18 History donepezil 10 mg PO HS 06/05/18 08/26/18 History epinephrine [EpiPen] 0.3 mg IM UD PRN 06/05/18 08/26/18 History gabapentin 300 mg PO HS 06/05/18 08/26/18 History hydrochlorothiazide 12.5 mg PO QAM 06/05/18 08/26/18 History isosorbide mononitrate 60 mg PO QAM 06/05/18 08/26/18 History levothyroxine 100 mcg PO QAM 06/05/18 08/26/18 History memantine [Namenda] 10 mg PO BID 06/05/18 08/26/18 History nitroglycerin [Nitromist] 1 spray SUBLINGUAL UD PRN 06/05/18 08/26/18 History simvastatin 80 mg PO PM 06/05/18 08/26/18 History tamsulosin 0.4 mg PO QDD 06/05/18 08/26/18 History Eliquis 5 mg PO BID #60 tab 06/12/18 08/26/18 Rx tramadol 50 mg tablet 50 - 100 mg PO DAILY PRN #90 tab 08/15/18 08/26/18 Rx calcium carbonate [Calcium 600] 1,200 mg PO DAILY 08/26/18 08/26/18 History cyanocobalamin (vitamin B-12) 1,000 mcg PO DAILY 08/26/18 08/26/18 History [Vitamin B-12] ferrous sulfate 325 mg PO BIDM 08/26/18 08/26/18 History folic acid 1 mg PO DAILY 08/26/18 08/26/18 History Allergies Allergy/AdvReac Type Severity Reaction Status Date / Time captopril Allergy Severe ANAPHYLAXIS Verified 08/26/18 08:43 Iodinated Contrast- Oral and Allergy Severe ANAPHYLAXIS Verified 08/26/18 08:43 IV Dye levofloxacin Allergy Severe ANAPHYLAXIS Verified 08/26/18 08:43 oxaprozin Allergy Severe ANAPHYLAXIS Verified 08/26/18 08:43 torsemide Allergy Severe ANAPHYLAXIS Verified 08/26/18 08:43 hydrocodone Allergy Mild RASH Verified 08/26/18 08:43 morphine Allergy Unknown Anaphylaxis Verified 08/26/18 08:43 Sulfa (Sulfonamide Allergy Unknown Anaphylaxis Verified 08/26/18 08:43 Antibiotics) Past Med/Surg History Medical History Anemia Cardiac pacemaker in situ [facility]. MOST RECENT PACER CHECK 05/19/18 Mild cognitive impairment HTN (hypertension), benign Hyperlipidemia Hypothyroidism CAD (coronary artery disease), [place] coronary artery S/P BMS to OM 1997. Caths also 2006, 2008 and 2013, no stents placed. Most recent cath in 2013 showed no angiographically significant stenosis other than 20-30% in-stent restenosis of OM. PNA (pneumonia) (Acute) During admission for septic UTI 05/2018. Discharged on ABX. Pre-op CXR 06/29 now shows persistent interstitial thickening but no acute parenchymal c onsolidation. O2 sat 96% on RA at PAT. BPH (benign prostatic hyperplasia) History of kidney stones Hx of gastric ulcer Hx of myocardial infarction 1998 Hx of sleep apnea Does not use CPAP at home Intermittent self-catheterization of bladder SSS (sick sinus syndrome) s/p pacemaker 2008, generator change 2016. UTI (urinary tract infection) ADMITTED [facility] 06/05 TO 06/12 FOR SEPTIC UTI 2/2 OBSTRUCTIVE UROPATHY. Surgical History H/O total knee replacement RIGHT AND LEFT History of cardiac cath + stents History of cataract surgery BOTH EYES History of lumbar fusion History of prostate surgery PARTIAL PROSTECTOMY Family History Father Family history of diabetes mellitus Mother FHx: heart disease Social History Preferred Language: Samoan Communication Ability: Effective Beliefs That Will Affect Care: None Current Living Situation: Spouse Feels Safe at Home: Yes Smoking Status: Never smoker Tobacco Type: cigarettes, pipe, cigars and smokeless tobacco Second Hand Exposure: No Hx Alcohol Use: No Hx Substance Use: No Review of Systems See HPI for pertinent positives & negatives. and A total of 10 systems reviewed and were otherwise negative Physical Exam Vital Signs Vital Signs - 24 hr 08/26/18 08:35 08/26/18 10:17 08/26/18 11:22 Temperature 36.8 C Temperature Source Oral Sepsis Recent Fever Within 48 Hours No Sepsis New/Unexplained Change in Mental Status No Sepsis Action Taken by Nursing No Action Required Pulse Rate 73 Pulse Rate [Apical] 63 67 Pulse Rhythm Regular Pulse Rhythm [Apical] Regular Pulse Strength [Apical] Normal Respiratory Rate 17 18 19 Respiratory Effort / Characteristics Non-Labored Spontaneous Non-Labored Spontaneous Respiratory Depth Normal Normal Normal Respiratory Pattern Regular Regular Blood Pressure 135/91 Blood Pressure [Right Arm] 137/71 146/78 H Blood Pressure Mean 105 Blood Pressure Mean [Right Arm] 93 100 Pulse Oximetry 95 94 92 Oxygen Delivery Method Room Air Room Air Room Air 08/26/18 13:00 Temperature Temperature Source Sepsis Recent Fever Within 48 Hours Sepsis New/Unexplained Change in Mental Status Sepsis Action Taken by Nursing Pulse Rate Pulse Rate [Apical] 58 L Pulse Rhythm Pulse Rhythm [Apical] Regular Pulse Strength [Apical] Respiratory Rate 17 Respiratory Effort / Characteristics Non-Labored Spontaneous Respiratory Depth Normal Respiratory Pattern Regular Blood Pressure Blood Pressure [Right Arm] 140/70 Blood Pressure Mean Blood Pressure Mean [Right Arm] 93 Pulse Oximetry 93 Oxygen Delivery Method Room Air GENERAL: Sitting up in bed. Talking in full sentences. Alert, well nourished, no distress, non-toxic HEAD: normal cephalic, atraumatic. no septal hematoma. EYE EXAM: normal conjunctiva, PERRL and EOM's grossly intact OROPHARYNX: no exudate, no erythema, lips, buccal mucosa, and tongue normal and mucous membranes are moist NECK: supple, no nuchal rigidity, no adenopathy, non-tender CHEST: stable to compression anteriorly and posteriorly LUNGS: clear to auscultation. Normal chest wall mechanics HEART: Positive systolic ejection murmur. S1 normal and S2 normal ABDOMEN: abdomen soft, non-tender, normo-active bowel sounds, no masses, no rebound or guarding. PELVIS: stable to compression anteriorly and posteriorly BACK: Back is symmetrical on inspection and there is no deformity, no midline tenderness, no CVA tenderness. : Michel in place with clear/yellow urine. UPPER EXTREMITIES: full active and passive range of motion of all joints without tenderness to palpation LOWER EXTREMITIES: No pain on palpation. DP pulse 2/4. Flexion extension hip, knee, ankle, EHL 5/5 bilaterally. NEURO EXAM: Awake, alert, and oriented to person, place, and not year. Cranial nerves II-XII grossly intact, normal speech, no gross weakness of arms, no gross weakness of legs. GCS: 15. Course ED COURSE: Vital signs were reviewed and showed hypertensive The patients medical record was reviewed The above diagnostic studies were performed and reviewed. ED treatments and interventions as stated above. 0833: The patient was evaluated in room B7. A complete history and physical examination was performed. 1004: I checked on and updated the patient. 1135: I discussed the case with Dr. Romo [facility] who states the the patient is no longer Dr. Levine's patient. 1206: I discussed the case with Dr. Medrano-[facility] Hospitalist who recommends IV antibiotics and antifungals. 1207: Upon reevaluation, the patient is feeling better.I discussed my findings with the patient and he understands and agrees with the treatment plan. 1208: I discussed the case with Dr. Perez-[facility] Hospitalist who accepts the patient for further evaluation. Based on the patients age, coexisting illnesses, exam and lab findings the decision to treat as an inpatient was made. The patient remained stable while under my care. The patient will be evaluated for further management. Administered Medications Fluconazole (Diflucan) 200 mg in 100 mls @ 100 mls/hr IV UD FLEX; Protocol Stop: 09/09/18 12:14 Last Admin: 08/26/18 13:04 Dose: 100 mls/hr Documented by: [id number] Discontinued Medications Sodium Chloride (Nss 1000ml) 1,000 mls @ 999 mls/hr IV .Q1H1M ONE Stop: 08/26/18 11:26 Last Infusion: 08/26/18 11:38 Dose: 0 mls/hr Documented by: [id number] Admin: 08/26/18 10:35 Dose: 999 mls/hr Documented by: [id number] Ceftriaxone Sodium 2,000 mg/ (Dextrose) 70 mls @ 100 mls/hr IV NOW STA Stop: 08/26/18 12:56 Last Infusion: 08/26/18 13:33 Dose: 0 mls/hr Documented by: [id number] Admin: 08/26/18 12:32 Dose: 100 mls/hr Documented by: [id number] Potassium Chloride (Klor-Con M20) 40 meq PO NOW STA Stop: 08/26/18 10:27 Last Admin: 08/26/18 10:35 Dose: 40 meq Documented by: [id number] Medical Decision Making Differential Diagnosis Differential diagnoses include major intracranial, cervical, spinal, thoracic, abdominal, pelvic and neurologic injury. Fracture, contusion, sprain, strain, laceration, abrasions included as well. Medical Records Attestation: I reviewed the patient's medical records. Home Medications Current Medication List: was personally reviewed by me Laboratory Data Attestation: I reviewed the patient's lab results. Result diagrams: 08/26/18 09:05 08/26/18 09:05 Lab Results 08/26/18 08/26/18 08/26/18 Range/Units 08:57 09:05 09:05 WBC 15.85 H (4.8-10.8) K/uL RBC 3.69 L (4.7-6.1) M/uL Hgb 11.1 L (14.0-18.0) g/dL Hct 32.5 L (42-52) % MCV 88.1 (80-100) fL MCH 30.1 (25-34) pg MCHC 34.2 (32-36) g/dL RDW Std Deviation 47.4 H (36.4-46.3) fL RDW Coeff of [place] 14.8 H (11.5-14.5) % Plt Count 270 (130-400) K/uL MPV 10.0 (7.4-10.4) fL Immature Gran % (Auto) 0.2 % Neut % (Auto) 76.8 % Lymph % (Auto) 7.6 % [place] % (Auto) 14.6 % Eos % (Auto) 0.6 % Baso % (Auto) 0.2 % Immature Gran # (Auto) 0.03 H (0.00-0.02) K/uL Neut # (Auto) 12.17 H (1.4-6.5) K/uL Lymph # (Auto) 1.20 (1.2-3.4) K/uL [place] # (Auto) 2.32 H (0.11-0.59) K/uL Eos # (Auto) 0.10 (0-0.5) K/uL Baso # (Auto) 0.03 (0-0.2) K/uL Sodium 134 L (136-145) mmol/L Potassium 2.8 L (3.5-5.1) mmol/L Chloride 98 (98-107) mmol/L Carbon Dioxide 29 (21-32) mmol/L Anion Gap 7.0 (3-11) BUN 40 H (7-18) mg/dl Creatinine 2.01 H (0.6-1.4) mg/dl Est Cr Clr Drug Dosing 29.2 ml/min Est GFR ( Amer) 35.5 Est GFR (Non-Af Amer) 30.6 BUN/Creatinine Ratio 20.1 H (10-20) Glucose 111 H (70-99) mg/dl Calcium 8.7 (8.5-10.1) mg/dl Total Bilirubin 0.8 (0.2-1) mg/dl AST 12 L (15-37) U/L ALT 9 L (12-78) U/L Alkaline Phosphatase 92 (45-117) U/L Total Protein 7.4 (6.4-8.2) gm/dl Albumin 3.0 L (3.4-5.0) gm/dl Globulin 4.4 H (2.5-4.0) gm/dl Albumin/Globulin Ratio 0.7 L (0.9-2) Lipase 98 (73-393) U/L Urine Color [place] Urine Appearance Turbid A (Clear) Urine pH 5.0 (4.5-7.5) Ur Specific [place] 1.013 (1.000-1.030) Urine Protein 2+ H (Negative) Urine Glucose (UA) Negative (Negative) Urine Ketones Negative (Negative) Urine Blood 3+ H (Negative) Urine Nitrite Negative (Negative) Urine Bilirubin Negative (Negative) Urine Urobilinogen Negative (Negative) Ur Leukocyte Esterase 3+ H (Negative) Urine WBC (Auto) >30 H (0-5) /hpf Urine RBC (Auto) >30 H (0-4) /hpf U Hyaline Cast (Auto) 1-5 (0-5) /lpf U Epithel Cells (Auto) 5-10 H (0-5) /lpf Urine Bacteria (Auto) Negative (Negative) Urine Yeast Budding w/ Hyphae A (None Prsent) Imaging Data Radiologist's Impression: Radiology results as stated below per my review and the radiologist's interpretation: CT cervical spine wo con CLINICAL HISTORY: 78 years-old Male presenting with fall this morning, dementia. TECHNIQUE: Multidetector CT of the cervical spine was performed without the use of intravenous contrast. IV contrast: None. One or more dose lowering techniques were used consistent with the principles of ALARA (as low as reasonably achievable), including automatic exposure control, mA or kV adjustment to individual patient size, and/or use of iterative reconstruction. COMPARISON: None. CT DOSE (mGy.cm): The estimated cumulative dose is 968.04 mGy.cm. FINDINGS: Design Technician topogram: The patient is edentulous. Left subclavian implanted cardiac device. Exaggerated cervical lordosis. Vertebral bodies demonstrate mild height loss at C3 and C4 without a compression deformity suggesting chronic osteoporotic height loss. Remaining vertebral body symmetry normal height and alignment. Mild intervertebral disc height loss diffusely with small disc osteophyte complexes t o varying degrees at every level. Multiple disc bulges are evident greatest at C3-4 resulting in mild spinal canal narrowing. Facet arthropathy and uncovertebral hypertrophy result in osseous neural foraminal narrowing at several levels. Advanced degenerative changes of the atlantodental articulation with articulation of the basion with the dens. No acute fracture or subluxation. Lung apices clear. Atherosclerosis noted. Paraspinal musculature within normal limits for age. IMPRESSION: 1. No acute osseous injury of the cervical spine. 2. Multilevel degenerative changes. Electronically signed by: Rodo Clements M.D. 08/26/2018 9:[address] head/brain wo con CLINICAL HISTORY: 78 years-old Male presenting with fall this morning, history of dementia. TECHNIQUE: Multidetector CT imaging of the head was performed without the use of intravenous contrast. IV contrast: None. One or more dose lowering techniques were used consistent with the principles of ALARA (as low as reasonably achievable), including automatic exposure control, mA or kV adjustment to individual patient size, and/or use of iterative reconstruction. COMPARISON: 06/05/2018. CT DOSE (mGy.cm): The estimated cumulative dose is 968.04. FINDINGS: Design Technician topogram: Left subclavian implanted cardiac device. Proportional ventricular and sulcal prominence, likely age-related parenchymal volume loss. No hemorrhage. Periventricular and subcortical white matter hypoattenuation, nonspecific but likely indicative of chronic small vessel ischemic change. No acute territorial infarct. No mass effect or midline shift. No extra-axial fluid collection. Paranasal sinuses and mastoid air cells clear. Calvarium intact. Postsurgical changes of the globes. IMPRESSION: 1. Chronic small vessel ischemic change. No acute intracranial abnormality. Electronically signed by: Rodo Clements M.D. 08/26/2018 9:27 AM XR lumbar spine 2-3V CLINICAL HISTORY: fall ,. Pain. COMPARISON STUDY: No previous studies for comparison. FINDINGS: Bilateral ureteral stents are present. Moderate generalized degenerative changes of the lumbar spine. Partial degenerative fusion of the L4- L5 complex. Degenerative changes of posterior elements. No evidence for an acute compression deformity. IMPRESSION: Degenerative change. No acute process. The above report was generated using voice recognition software. It may contain grammatical, syntax or spelling errors. Electronically signed by: Trip Ramirez M.D. 08/26/2018 9:48 AM XR pelvis 1-2V routine CLINICAL HISTORY: 78 years-old Male presenting with fall. TECHNIQUE: Single frontal view of the pelvis was obtained. COMPARISON: Correlation made to CT of the abdomen and pelvis from 06/08/2018. FINDINGS: Bilateral ureteral stents in place. Penile implanted device in place. Osteopenia suspected. Advanced degenerative changes of the left hip joint with osseous remodeling of the left femoral head, which is flattened. Exuberant subchondral cystic change and sclerosis in the acetabulum and femoral head. [id number] appearance along the superior aspect of the joint space. Right hip joint congruent with only mild degenerative changes. Sacroiliac joints with degenerative change and partial osseous fusion. Pubic symphysis congruent. Sacrum grossly unremarkable. No acute fracture or acute malalignment. Atherosclerosis. IMPRESSION: 1. Allowing for osteopenia, no acute osseous injury. 2. Severe degenerative changes of the left hip joint. Electronically signed by: Rodo Clements M.D. 08/26/2018 9:[address] abd pelvis wo con CLINICAL HISTORY: 78 years-old Male presenting with previous renal mass and obstruction with sepsis. TECHNIQUE: Multidetector CT of the abdomen and pelvis was performed without the use of intravenous contrast. IV contrast: None. One or more dose lowering techniques were used consistent with the principles of ALARA (as low as reasonably achievable), including automatic exposure control, mA or kV adjustment to individual patient size, and/or use of iterative reconstruction. COMPARISON: 07/13/2018. CT DOSE (mGy.cm): The estimated cumulative dose is 463.20 mGy.cm. FINDINGS: Design Technician topogram: Pacer leads of the right atrium and right ventricular apex. Cholecystectomy clips. Bilateral ureteral stents. Penile implant. Lung bases: Multichamber enlargement of the heart. Coronary artery and aortic valve calcification. Pacer leads noted. No pericardial or pleural effusion. Reticulation in a dependent distribution at the lung bases may represent scarring or atelectasis. Mild bronchial wall thickening in the lower lobes may relate to chronic aspiration. Liver: Normal morphology. Density borderline for hepatic steatosis. Few punctate parenchymal calcifications. Biliary: Mild biliary ductal prominence likely a reservoir effect in the post cholecystectomy state. Gallbladder surgically absent. Pancreas: Mild parenchymal atrophy. Spleen: Parenchymal calcifications suggest a history of granulomatous disease. Adrenal glands: Normal noncontrast appearance. Kidneys and ureters: Bilateral ureteral stents in place. Right hydronephrosis is new from prior. Persistent apparent left hydronephrosis. Atrophy of the left kidney with several cysts noted. Urothelial thickening of the right urinary collecting system. Moderate right perinephric fat stranding is somewhat asymmetric in comparison to the left. Evaluation for solid renal or urothelial lesion is extremely limited in the absence of intravenous contrast. Bladder: Ureteral stents terminate in the bladder lumen, which is decompressed with a Michel catheter. Pelvic organs: Penile implant in place. The prostate may be surgically absent or atrophic. Bowel: Normal appendix. No bowel obstruction. Peritoneal cavity: No free fluid or intraperitoneal gas. Lymph nodes: No gross lymphadenopathy allowing for noncontrast technique. Vasculature: Atherosclerosis of the normal caliber abdominal aorta. Abdominal wall: Fat-containing bilateral inguinal hernias. Fat-containing umbilical hernia. Musculoskeletal: Degenerative changes of the spine. Degenerative changes of the right hip. Severe degenerative changes of the left hip. Degenerative changes of the sacroiliac joints. IMPRESSION: 1. Interval development of right hydronephrosis despite the presence of the right ureteral stent. A clear etiology for this obstruction is not apparent. 2. Right urothelial thickening could suggest underlying upper tract infection. Correlate with urinalysis. 3. Extremely limited examination for solid renal or urothelial mass. If the patient cannot receive intravenous contrast, a noncontrast MRI would be recommended on a nonurgent basis for evaluation of the reported right renal lesion. 4. Left ureteral stent in place with persistent distention of the left collecting system and chronic left renal atrophy. 5. Cardiomegaly. 6. Severe degenerative changes of the left hip. Electronically signed by: Rodo Clements M.D. 08/26/2018 10:35 AM Blood Pressure Blood Pressure Findings: Elevated blood pressure Blood Pressure Disposition: further management by hospitalist JIMMY Narrative Patient is a 78-year-old male who presents the ER following a fall at home. Family member heard a thud and went into the room and he was awake. This does not appear to be syncopal episode. They do note that he has been slightly weak but has been oriented appropriately. Recent admission and discharge per review of the chart with bilateral stents placed in UTI. Labs were obtained and showed mild leukocytosis of 15.8 thousand. Mild anemia at 11. BMP with mild hypokalemia at 2.8. Creatinine was slightly elevated 2.0 off of 1.4. No significant transaminitis. Lipase was normal. UA with yeast. CT abdomen pelvis along with CT head and neck showed hydroureter question obstruction with bilateral stents in place. This in combination with yeast growing out consulted urology. Patient was given IV fluconazole and IV antibiotics. She was updated bedside. Patient was admitted to the hospital for further work-up with right hydronephrosis with stents in place and UTI. Impression & Plan Fall, Acute UTI, Leukocytosis Discharge Plan Visit Data Chief Complaint: Fall ED Provider: Surya Abdul Discharge Problem: Fall, Acute UTI, Leukocytosis Patient Disposition: Being Evaluated by Hospitalist Forms Stand Alone Forms: [facility] Prescriptions Prescriptions: No Action tramadol 50 mg tablet 50 - 100 mg PO DAILY PRN (Reason: Pain) Qty: 90 RF: 0 nitroglycerin [Nitromist] 400 mcg/spray Aerosol,[place] 1 spray sublingual UD PRN (Reason: Chest Pain) RF: 0 citalopram [Celexa] 10 mg tablet 10 mg PO QDL RF: 0 donepezil 10 mg Tablet 10 mg PO HS RF: 0 simvastatin 80 mg Tablet 80 mg PO PM RF: 0 aspirin [Aspir-81] 81 mg Tablet,Delayed Release (Dr/Ec) 81 mg PO QAM RF: 0 carvedilol [Coreg] 3.125 mg tablet 3.125 mg PO BIDM RF: 0 levothyroxine 100 mcg tablet 100 mcg PO QAM RF: 0 isosorbide mononitrate 60 mg tablet extended release 24 hr 60 mg PO QAM RF: 0 tamsulosin 0.4 mg Capsule 0.4 mg PO QDD RF: 0 gabapentin 300 mg Capsule 300 mg PO HS RF: 0 hydrochlorothiazide 25 mg tablet 12.5 mg PO QAM RF: 0 bethanechol chloride [Urecholine] 50 mg tablet 50 mg PO QID RF: 0 epinephrine [EpiPen] 0.3 mg/0.3 mL Auto-Injector 0.3 mg IM UD PRN (Reason: Allergic Reaction) RF: 0 memantine [Namenda] 10 mg tablet 10 mg PO BID RF: 0 Eliquis 2.5 mg Tablet 5 mg PO BID Qty: 60 RF: 0 cyanocobalamin (vitamin B-12) [Vitamin B-12] 1,000 mcg Tablet 1,000 mcg PO DAILY RF: 0 calcium carbonate [Calcium 600] 600 mg calcium (1,500 mg) Tablet 1,200 mg PO DAILY RF: 0 folic acid 1 mg tablet 1 mg PO DAILY RF: 0 ferrous sulfate 325 mg (65 mg iron) Tablet,Delayed Release (Dr/Ec) 325 mg PO BIDM RF: 0 Referrals Referrals: Celina Saunders DO [Primary Care Provider] - Discharge Problem: Fall Qualifiers: Encounter type: initial encounter Qualified Code(s): W19.XXXA - Unspecified fall, initial encounter Leukocytosis Qualifiers: Leukocytosis type: unspecified Qualified Code(s): D72.829 - Elevated white blood cell count, unspecified The scribe's documentation has been prepared under my direction and personally reviewed by me in its entirety. I confirm that the note above accurately reflects all work, treatment, procedures, and medical decision making performed by me.
[2018-08-26] MEDS ORDERED: ONDANSETRON INJ 2 MG/ML 2 ML VIAL IV PRN (15:45)
[2018-08-26] MEDS ORDERED: MAGNESIUM HYDROXIDE SUSP 30 ML UDC PO PRN (15:45)
[2018-08-26] MEDS ORDERED: EPINEPHRINE ADULT AUTO-INJECT 0.3 MG SYR IM PRN (15:45)
[2018-08-26] MEDS ORDERED: NITROGLYCERIN SL 0.4 MG/TAB TAB SL PRN (16:12)
[2018-08-26] MEDS: NSS + 20MEQ KCL 20 MEQ/1,000 ML BAG IV SCH (17:43)
[2018-08-26] MEDS: FERROUS SULFATE 325 MG TAB PO SCH (17:44)
[2018-08-26] MEDS: TAMSULOSIN HCL 0.4 MG CAP PO SCH (17:44)
[2018-08-26] MEDS: CARVEDILOL 3.125 MG TAB PO SCH (17:44)
[2018-08-26] MEDS: BETHANECHOL CHL 25 MG TAB PO SCH ×2 (17:45→21:08)
[2018-08-26] MEDS: MEMANTINE HCL 10 MG TAB PO SCH (21:08)
[2018-08-26] MEDS: GABAPENTIN 300 MG CAP PO SCH (21:08)
[2018-08-26] MEDS: DONEPEZIL HCL 10 MG TAB PO SCH (21:08)
[2018-08-26] MEDS: SIMVASTATIN 80 MG TAB PO SCH (21:08)
[2018-08-27] MEDS: NSS + 20MEQ KCL 20 MEQ/1,000 ML BAG IV SCH ×2 (03:51→16:40)
[2018-08-27] MEDS: LEVOTHYROXINE SODIUM 100 MCG TABLET PO SCH (05:42)
[2018-08-27 07:20] LABS: Basophils # (auto) 0.02 K/uL (0-0.2); Basophils % (auto) 0.2 %; Eosinophils # (auto) 0.06 K/uL (0-0.5); Eosinophils % (auto) 0.5 %; Hematocrit (blood only) 30.2 % (42-52); Hemoglobin 10.1 g/dL (14.0-18.0); Immature Granulocytes # (auto) 0.03 K/uL (0.00-0.02); Immature Granulocytes % (auto) 0.2 %; Lymphocytes # (auto) 1.39 K/uL (1.2-3.4); Lymphocytes % (auto) 11.2 %; Mean Corpuscular Hgb Conc 33.4 g/dL (32-36); Mean Platelet Volume 9.6 fL (7.4-10.4); Monocytes # (auto) 1.97 K/uL (0.11-0.59); Monocytes % (auto) 15.9 %; Neutrophils # (auto) 8.89 K/uL (1.4-6.5); Platelet Count 235 K/uL (130-400); RDW Coefficient of Variation 14.9 % (11.5-14.5); Red Blood Count 3.43 M/uL (4.7-6.1); White Blood Count 12.36 K/uL (4.8-10.8)
[2018-08-27 07:54] LABS: BUN Creatinine Ratio 16.8 (10-20); Calcium 8.8 mg/dl (8.5-10.1); Creatinine Clr Calc Pharmacy 32.7 ml/min; Est GFR (African American) 43.2; Est GFR (Non-African American) 37.3; Magnesium 2.3 mg/dl (1.8-2.4); Phosphorus 2.7 mg/dl (2.5-4.9); Potassium 3.4 mmol/L (3.5-5.1)
[2018-08-27] MEDS ORDERED: POTASSIUM CHLORIDE 20 MEQ TABCR PO ONE (08:00)
[2018-08-27] MEDS: MEMANTINE HCL 10 MG TAB PO SCH ×2 (08:07→21:39)
[2018-08-27] MEDS: FOLIC ACID 1 MG TAB PO SCH (08:07)
[2018-08-27] MEDS: ISOSORBIDE MONO EXTENDED REL 60 MG TABCR PO SCH (08:07)
[2018-08-27] MEDS: CYANOCOBALAMIN 500 MCG TABLET (VITAMIN B-12) PO SCH (08:07)
[2018-08-27] MEDS: hydroCHLOROthiazide 25 MG TAB PO SCH (08:08)
[2018-08-27] MEDS: FERROUS SULFATE 325 MG TAB PO SCH ×2 (08:12→16:40)
[2018-08-27] MEDS: BETHANECHOL CHL 25 MG TAB PO SCH ×4 (08:12→21:39)
[2018-08-27] MEDS: CARVEDILOL 3.125 MG TAB PO SCH ×2 (08:13→16:38)
[2018-08-27] MEDS: ACETAMINOPHEN 325 MG TAB PO PRN ×2 (08:20→21:38)
--- NOTE | 2018-08-27 08:38 | Urology Consultation ---
Date of Consultation August 27, 2018 Assessment & Plan (1) Acute UTI: Bilateral stents with associated mild bilateral hydronephrosis and possible UTI. UC&S pending, recommend transition to PO therapy per sensitivities. If yeast is present in culture will need treated due to stents with 7d total coverage of Diflucan. Maintain Michel. Outpatient URO follow up as scheduled. Thanks for allowing us to participate in the inpatient care of Mr. Momin. Please contact our service if we can be of further assistance during hospitalization. (2) Hydronephrosis: History of Present Illness Attending Physician: Wilberto Wu History of Present Illness 78 YO male with indwelling bilateral stents and bilateral hydronephrosis. Established with Drs. Ham and Merary. Patient brought to the ER s/p fall. CT abd/pelvis upon admission demonstrates his bilateral stents, bilateral hydro, and development of mild thickening of right ureter. Urine sample demonstrates budding yeast. He was admitted for antibiotic management. Remains on empiric Ceftriaxone and Diflucan. His Cr has been trending down since admission. Urine culture is pending. Patient reports feeling well today. No abdominal or flank pain. No fevers/chills. No nausea/vomiting. Michel is in place, patent, not bothersome. Draining clear yellow urine. Allergies Allergy/AdvReac Type Severity Reaction Status Date / Time captopril Allergy Severe ANAPHYLAXIS Verified 08/26/18 08:43 Iodinated Contrast- Oral and Allergy Severe ANAPHYLAXIS Verified 08/26/18 08:43 IV Dye levofloxacin Allergy Severe ANAPHYLAXIS Verified 08/26/18 08:43 oxaprozin Allergy Severe ANAPHYLAXIS Verified 08/26/18 08:43 torsemide Allergy Severe ANAPHYLAXIS Verified 08/26/18 08:43 hydrocodone Allergy Mild RASH Verified 08/26/18 08:43 morphine Allergy Unknown Anaphylaxis Verified 08/26/18 08:43 Sulfa (Sulfonamide Allergy Unknown Anaphylaxis Verified 08/26/18 08:43 Antibiotics) Home Medications Home Medications Medication Instructions Recorded Confirmed Type aspirin [Aspir-81] 81 mg PO QAM 06/05/18 08/26/18 History bethanechol chloride [Urecholine] 50 mg PO QID 06/05/18 08/26/18 History carvedilol [Coreg] 3.125 mg PO BIDM 06/05/18 08/26/18 History citalopram [Celexa] 10 mg PO QDL 06/05/18 08/26/18 History donepezil 10 mg PO HS 06/05/18 08/26/18 History epinephrine [EpiPen] 0.3 mg IM UD PRN 06/05/18 08/26/18 History gabapentin 300 mg PO HS 06/05/18 08/26/18 History hydrochlorothiazide 12.5 mg PO QAM 06/05/18 08/26/18 History isosorbide mononitrate 60 mg PO QAM 06/05/18 08/26/18 History levothyroxine 100 mcg PO QAM 06/05/18 08/26/18 History memantine [Namenda] 10 mg PO BID 06/05/18 08/26/18 History nitroglycerin [Nitromist] 1 spray SUBLINGUAL UD PRN 06/05/18 08/26/18 History simvastatin 80 mg PO PM 06/05/18 08/26/18 History tamsulosin 0.4 mg PO QDD 06/05/18 08/26/18 History Eliquis 5 mg PO BID #60 tab 06/12/18 08/26/18 Rx tramadol 50 mg tablet 50 - 100 mg PO DAILY PRN #90 tab 08/15/18 08/26/18 Rx calcium carbonate [Calcium 600] 1,200 mg PO DAILY 08/26/18 08/26/18 History cyanocobalamin (vitamin B-12) 1,000 mcg PO DAILY 08/26/18 08/26/18 History [Vitamin B-12] ferrous sulfate 325 mg PO BIDM 08/26/18 08/26/18 History folic acid 1 mg PO DAILY 08/26/18 08/26/18 History Patient History Medical History Anemia Cardiac pacemaker in situ [facility]. MOST RECENT PACER CHECK 05/19/18 Mild cognitive impairment HTN (hypertension), benign Hyperlipidemia Hypothyroidism CAD (coronary artery disease), [place] coronary artery S/P BMS to OM 1997. Caths also 2006, 2008 and 2013, no stents placed. Most recent cath in 2013 showed no angiographically significant stenosis other than 20-30% in-stent restenosis of OM. PNA (pneumonia) (Acute) During admission for septic UTI 05/2018. Discharged on ABX. Pre-op CXR 06/29 now shows persistent interstitial thickening but no acute parenchymal consolidation. O2 sat 96% on RA at PAT. BPH (benign prostatic hyperplasia) History of kidney stones Hx of gastric ulcer Hx of myocardial infarction 1998 Hx of sleep apnea Does not use CPAP at home Intermittent self-catheterization of bladder SSS (sick sinus syndrome) s/p pacemaker 2009, generator change 2016. UTI (urinary tract infection) ADMITTED [facility] 06/05 TO 06/12 FOR SEPTIC UTI 2/2 OBSTRUCTIVE UROPATHY. Surgical History H/O total knee replacement RIGHT AND LEFT History of cardiac cath + stents History of cataract surgery BOTH EYES History of lumbar fusion History of prostate surgery PARTIAL PROSTECTOMY Family History Father Family history of diabetes mellitus Mother FHx: heart disease Social History Preferred Language: Pashto Communication Ability: Effective Beliefs That Will Affect Care: None Current Living Situation: Family Feels Safe at Home: Yes Safety Concerns: Feels Safe At This Time Smoking Status: Former smoker Tobacco Type: cigarettes, pipe, cigars and smokeless tobacco Second Hand Exposure: No Hx Alcohol Use: No Hx Substance Use: No Review of Systems Review of Systems: All systems reviewed & are unremarkable except as noted in HPI & below Physical Exam Physical Exam: NAD. No hearing loss. Resp effort normal. No JVD. Abd soft, nontender. : bladder nontender, nondistended. Michel in place draining clear yellow urine. No confusion. A&Ox3 appropriate affect. Results & Data Vital Signs (Past 12 Hours) Vital Signs Temp Pulse Pulse Resp BP Pulse Ox 08/27/18 07:02 37.0 C 70 18 126/63 97 08/27/18 04:51 36.7 C 73 19 125/78 91 08/27/18 01:04 72 08/26/18 23:46 36.4 C L 72 19 150/84 H 95 (1) Hydronephrosis Hydronephrosis type: unspecified Qualified Code(s): N13.30 - Unspecified hydronephrosis
[2018-08-27] MEDS ORDERED: CALCIUM CARBONATE 1,250 MG/5 ML UDC PO SCH (09:00)
--- NOTE | 2018-08-27 11:39 | Hospitalist Progress Note ---
Date of Service August 27, 2018 Assessment & Plan (1) Acute UTI: - Most recent urology procedure (has bilateral stents) completed on 07/06/18. - U/a positive, UC is pending. - Continue Fluconazole and Ceftriaxone for empiric coverage. - Urology consulted, appreciate input. Will need outpatient follow up. - Resume anticoagulation therapy -- no procedure indicated. - Continue to maintain myles catheter. (2) Fall: - Likely related to weakness in setting of acute infection. - PT/OT -- no therapy needs anticipated. (3) ARF (acute renal failure): - Creatinine 2.01 at admission, above baseline -- now improving. - Continue NS + KCl mEq at 80 cc/hr. (4) BPH w urinary obs/LUTS: - Continue home Flomax as prescribed. - Continue myles care as noted above. (5) Atrial fibrillation: - Continue home Coreg; resumed Eliquis and Aspirin. - Currently in NSR, 70's on monitor. (6) Bilateral renal masses: - Follows with urology, recently biopsied during procedure on 07/06/18. (7) HTN (hypertension), benign: - Continue home HCTZ (with close monitoring of renal function), Imdur, Coreg as prescribed. (8) Hyperlipidemia: - Continue home statin. (9) Hypothyroidism: - Continue Synthroid 100 mcg daily. - Most recent TSH was 1.58 in May 2018. (10) CAD (coronary artery disease), [place] coronary artery: - Continue home beta christina, aspirin, Imdur, statin, Eliquis as prescribed. - Does have right sided chest pain during this admission -- EKG was negative, will trend troponin. (11) Depression: - Continue home Celexa as prescribed. (12) Dementia: - Continue home Aricept, Namenda as prescribed. (13) Chronic pain: - Continue home meds -- Gabapentin 300 mg qhs. (14) Hypokalemia: - K level 3.4 -- ordered KCl 20 mEq PO. (15) Cardiac pacemaker in situ: - Noted, followed as outpatient. (16) Mild cognitive impairment: - Noted. (17) Iron deficiency anemia: - Continue ferrous sulfate 325 mg BID. - Monitor H/H daily -- hgb currently at baseline. - Most recent iron studies in June 2018. (18) DVT prophylaxis: - SCDs; Restart home ASA and Eliquis. Dispo: Discharge on 08/28/18 pending results of UC. Supervising Physician Co-Signing Physician Notes Attending Attestation - Chart reviewed in detail, care plan d/w KAMI Mason. I agree w/ the delaney components of her documentation. Pt remains on diflucan and rocephin for UTI - final culture results still pending. Right-sided chest wall pain - sounds musculoskeletal given reproducibility but agree w/ work-up for it. Labs/vitals remain stable. Has GIOVANY - creatinine improved today. Repeat BMP am. Appreciate urology consultation. Wilberto Wu MD Subjective Pt. is doing well overall. Complains of right sided chest pain, chronic over last few weeks. Myles in place with good output. Has not had a BM in a few days. Review of Systems Review of Systems: All systems reviewed & are unremarkable except as noted in HPI & below Constitutional: no fever, no chills, no fatigue and no weakness Respiratory: no cough, no dyspnea and no dyspnea on exertion Cardiovascular: no chest pain, no palpitations and no edema Gastrointestinal: + constipation; no abdominal pain, no nausea and no vomiting Genitourinary: no difficulty urinating Musculoskeletal: no back pain and no joint pain Integumentary: no non-healing lesions Allergy / Immunological: no rash Physical Exam Physical Exam: General: Resting comfortably HEENT: NC/AT; PERRLA with EOMI; [place] conjunctiva, MMM. No erythema of posterior pharynx Neck: Supple and nontender Cardiac: RRR; systolic murmur noted. Lungs: CTA bilaterally Abdomen: Bowel normoactive X 4; Nontender to palpation Extremities: Warm. No edema present Neuro: No focal weakness Skin: No rash Results & Data Vital Signs (Past 12 Hours) Vital Signs Temp Pulse Pulse Resp BP Pulse Ox 08/27/18 09:48 62 08/27/18 07:02 37.0 C 70 18 126/63 97 08/27/18 04:51 36.7 C 73 19 125/78 91 08/27/18 01:04 72 08/26/18 23:46 36.4 C L 72 19 150/84 H 95 Laboratory Results 08/27/18 08/27/18 Range/Units 07:05 07:05 WBC 12.36 H (4.8-10.8) K/uL RBC 3.43 L (4.7-6.1) M/uL Hgb 10.1 L (14.0-18.0) g/dL Hct 30.2 L (42-52) % MCV 88.0 (80-100) fL MCH 29.4 (25-34) pg MCHC 33.4 (32-36) g/dL RDW Std Deviation 48.0 H (36.4-46.3) fL RDW Coeff of Curtis 14.9 H (11.5-14.5) % Plt Count 235 (130-400) K/uL MPV 9.6 (7.4-10.4) fL Immature Gran % (Auto) 0.2 % Neut % (Auto) 72.0 % Lymph % (Auto) 11.2 % [place] % (Auto) 15.9 % Eos % (Auto) 0.5 % Baso % (Auto) 0.2 % Immature Gran # (Auto) 0.03 H (0.00-0.02) K/uL Neut # (Auto) 8.89 H (1.4-6.5) K/uL Lymph # (Auto) 1.39 (1.2-3.4) K/uL [place] # (Auto) 1.97 H (0.11-0.59) K/uL Eos # (Auto) 0.06 (0-0.5) K/uL Baso # (Auto) 0.02 (0-0.2) K/uL Sodium 141 D (136-145) mmol/L Potassium 3.4 L D (3.5-5.1) mmol/L Chloride 107 (98-107) mmol/L Carbon Dioxide 27 (21-32) mmol/L Anion Gap 7.0 (3-11) BUN 29 H (7-18) mg/dl Creatinine 1.71 H D (0.6-1.4) mg/dl Est Cr Clr Drug Dosing 32.7 ml/min Est GFR ( Amer) 43.2 Est GFR (Non-Af Amer) 37.3 BUN/Creatinine Ratio 16.8 (10-20) Glucose 108 H (70-99) mg/dl Calcium 8.8 (8.5-10.1) mg/dl Phosphorus 2.7 (2.5-4.9) mg/dl Magnesium 2.3 (1.8-2.4) mg/dl PG Care Time/CCT Total # of Minutes Spent Total Time Spent with Patient: Total time spent is greater than 50% in coordination of care (as documented) at patient's floor/unit and/or counseling patient: (1) Atrial fibrillation Atrial fibrillation type: permanent Qualified Code(s): I48.2 - Chronic atrial fibrillation (2) Hypothyroidism Hypothyroidism type: acquired Qualified Code(s): E03.9 - Hypothyroidism, unspecified (3) CAD (coronary artery disease), [place] coronary artery Associated angina: without angina [place] vs. transplanted heart: [place] heart Qualified Code(s): I25.10 - Atherosclerotic heart disease of [place] coronary artery without angina pectoris (4) Fall Encounter type: initial encounter Qualified Code(s): W19.XXXA - Unspecified fall, initial encounter
[2018-08-27] MEDS: cefTRIAXone SODIUM 2,000 MG in DEXTROSE 5% 50 ML IV SCH (12:02)
[2018-08-27] MEDS: CITALOPRAM 20 MG TAB PO SCH (12:03)
[2018-08-27] MEDS: TRAMADOL HCL 50 MG TABLET PO PRN (12:03)
[2018-08-27] MEDS ORDERED: APIXABAN 2.5 MG TAB PO SCH (12:45)
[2018-08-27] MEDS ORDERED: POLYETHYLENE (MIRALAX) 17 GM PACK PO PRN (12:53)
[2018-08-27] MEDS: FLUCONAZOLE 100 MG/50 ML BAG IV SCH (13:00)
[2018-08-27] MEDS: ASPIRIN 81 MG ECTAB PO SCH (13:39)
[2018-08-27] MEDS: DOCUSATE SODIUM/SENNA 50/8.6MG TAB PO SCH ×2 (13:43→21:39)
[2018-08-27] MEDS ORDERED: OXYCODONE HCL IR 5 MG TAB (IMMEDIATE RELEASE) PO ONE (14:10)
[2018-08-27] MEDS: TAMSULOSIN HCL 0.4 MG CAP PO SCH (16:40)
[2018-08-27] MEDS: APIXABAN 5 MG TABLET PO SCH (21:39)
[2018-08-27] MEDS: DONEPEZIL HCL 10 MG TAB PO SCH (21:40)
[2018-08-27] MEDS: GABAPENTIN 300 MG CAP PO SCH (21:40)
[2018-08-27] MEDS: SIMVASTATIN 80 MG TAB PO SCH (21:40)
[2018-08-28] MEDS: NSS + 20MEQ KCL 20 MEQ/1,000 ML BAG IV SCH (04:52)
[2018-08-28 05:55] LABS: Hematocrit (blood only) 28.7 % (42-52); Hemoglobin 9.5 g/dL (14.0-18.0); Mean Corpuscular Hgb Conc 33.1 g/dL (32-36); Mean Corpuscular Volume 89.7 fL (80-100); Mean Platelet Volume 9.6 fL (7.4-10.4); Platelet Count 244 K/uL (130-400); RDW Coefficient of Variation 15.2 % (11.5-14.5); RDW Standard Deviation 49.5 fL (36.4-46.3); White Blood Count 11.19 K/uL (4.8-10.8)
[2018-08-28] MEDS: LEVOTHYROXINE SODIUM 100 MCG TABLET PO SCH (05:59)
[2018-08-28 06:21] LABS: BUN Creatinine Ratio 17.8 (10-20); Creatinine Clr Calc Pharmacy 32.6 ml/min; Est GFR (African American) 42.9; Magnesium 2.2 mg/dl (1.8-2.4); Potassium 3.8 mmol/L (3.5-5.1)
[2018-08-28] MEDS: BETHANECHOL CHL 25 MG TAB PO SCH ×4 (07:58→20:06)
[2018-08-28] MEDS: CYANOCOBALAMIN 500 MCG TABLET (VITAMIN B-12) PO SCH (07:58)
[2018-08-28] MEDS: APIXABAN 5 MG TABLET PO SCH ×2 (07:59→20:05)
[2018-08-28] MEDS: ASPIRIN 81 MG ECTAB PO SCH (07:59)
[2018-08-28] MEDS: DOCUSATE SODIUM/SENNA 50/8.6MG TAB PO SCH ×2 (07:59→20:05)
[2018-08-28] MEDS: FERROUS SULFATE 325 MG TAB PO SCH ×2 (08:01→16:57)
[2018-08-28] MEDS: CALCIUM CARBONATE 1250MG TAB PO SCH (08:02)
[2018-08-28] MEDS: CITALOPRAM 20 MG TAB PO SCH (08:02)
[2018-08-28] MEDS: FOLIC ACID 1 MG TAB PO SCH (08:02)
[2018-08-28] MEDS: MEMANTINE HCL 10 MG TAB PO SCH ×2 (08:03→20:05)
[2018-08-28] MEDS: CARVEDILOL 3.125 MG TAB PO SCH ×2 (08:03→16:57)
[2018-08-28] MEDS: LIDOCAINE 5% 1 PATCH TD SCH (10:30)
[2018-08-28] MEDS: PANTOprazole 40 MG TAB PO SCH (10:30)
[2018-08-28] MEDS: cefTRIAXone SODIUM 2,000 MG in DEXTROSE 5% 50 ML IV SCH (12:00)
--- NOTE | 2018-08-28 12:57 | XRay Report ---
XR chest 2V routine CLINICAL HISTORY: Atypical chest pain COMPARISON STUDY: 06/29/2018 FINDINGS: The heart is at the upper limits of normal in size. There is a left subclavian dual-chamber central venous pacemaker present. There is no focal pulmonary consolidation. There is slight interst itial prominence but no evidence of overt failure. There are no large pleural effusions.[ IMPRESSION: Stable mild asymmetric interstitial thickening. No acute findings. No evidence of acute p arenchymal consolidation Electronically signed by: Melquiades Alex M.D. 08/28/2018 12:55 PM
[2018-08-28] MEDS: FLUCONAZOLE 100 MG/50 ML BAG IV SCH (13:07)
--- NOTE | 2018-08-28 13:44 | Hospitalist Progress Note ---
Date of Service August 28, 2018 Assessment & Plan (1) Acute UTI: - Most recent urology procedure (has bilateral stents) completed on 07/06/18. - UC positive for Grisel and gram negative bacilli. - Continue Fluconazole and Ceftriaxone for empiric coverage. - Urology consulted, appreciate input. Follow up as outpatient. - Resumed anticoagulation therapy -- no procedure indicated. - Continue to maintain myles catheter. (2) Right-sided chest pain: - Likely related to musculoskeletal issue -- TTP on exam, cardiac work up was negative. - CXR negative for acute abnormalities. - Will apply Lidocaine patch to evaluate for improvement. - Consider short course of steroids for inflammation; NSAIDs contraindicated due to bleeding risk. - Started PPI daily for GERD symptoms. (3) Fall: - Related to weakness in setting of acute infection. - PT/OT -- no therapy needs anticipated. (4) ARF (acute renal failure): - Creatinine 2.01 at admission, above baseline -- now improved. - D/c IV fluids to maintain euvolemia. (5) BPH w urinary obs/LUTS: - Continue home Flomax as prescribed. - Continue myles care as noted above. (6) Atrial fibrillation: - Continue home Coreg, Eliquis and Aspirin. - Currently in NSR, 60's on monitor. (7) Bilateral renal masses: - Follows with urology, recently biopsied during procedure on 07/06/18. (8) HTN (hypertension), benign: - Continue home HCTZ (with close monitoring of renal function), Imdur, Coreg as prescribed. (9) Hyperlipidemia: - Continue home statin. (10) Hypothyroidism: - Continue Synthroid 100 mcg daily. - Most recent TSH was 1.58 in May 2018. (11) CAD (coronary artery disease), [place] coronary artery: - Continue home beta christina, aspirin, Imdur, statin, Eliquis as prescribed. - Does have right sided chest pain - see above. (12) Depression: - Continue home Celexa as prescribed. (13) Dementia: - Continue home Aricept, Namenda as prescribed. (14) Chronic pain: - Continue home meds -- Gabapentin 300 mg qhs. (15) Hypokalemia: - No replacement required today. (16) Cardiac pacemaker in situ: - Noted, followed as outpatient. (17) Mild cognitive impairment: - Noted. (18) Iron deficiency anemia: - Continue ferrous sulfate 325 mg BID. - Monitor H/H daily -- at baseline. - Most recent iron studies in June 2018. (19) DVT prophylaxis: - SCDs; ASA and Eliquis. Dispo: Discharge pending results of UC and improvement in R sided chest pain. Supervising Physician Co-Signing Physician Notes Attending Attestation - Chart reviewed in detail, care plan d/w PA Koki Mason. I agree w/ the delaney components of her documentation. Pt remains on diflucan and rocephin for UTI - has grisel and GNR on culture, final results pending. Right-sided chest wall pain - cont topical Rx. GIOVANY continues to improve. Labs/vitals otherwise stable. Other chronic medical issues stable. Wilberto Wu MD Subjective Pt. is doing well overall. Does have right chest pain -- pain has been present for 2-3 weeks. Is tender to palpation on exam. Cardiac work up was negative yesterday. Pain is worse with movement. Denies SOB, palpitations. Has not had a BM in 2-3 days. Denies N/V. Myles with good output. Review of Systems Review of Systems: All systems reviewed & are unremarkable except as noted in HPI & below Constitutional: no fever, no chills, no fatigue and no weakness Respiratory: no cough, no dyspnea, no dyspnea on exertion and no wheezing Cardiovascular: + chest pain (Right sided chest pain) and + chest pain with activity; no radiating jaw, neck or arm pain, no palpitations, no lightheadedness, no syncope and no edema Gastrointestinal: + constipation; no abdominal pain, no nausea and no vomiting Genitourinary: no difficulty urinating Musculoskeletal: no back pain and no joint pain Integumentary: no non-healing lesions Allergy / Immunological: no rash Physical Exam Physical Exam: General: Resting comfortably HEENT: NC/AT; PERRLA with EOMI; [place] conjunctiva, MMM. No erythema of posterior pharynx Neck: Supple and nontender Cardiac: RRR, systolic murmur. Tenderness to light palpation noted over right pectoralis region. Lungs: CTA bilaterally Abdomen: Bowel normoactive X 4; Nontender to palpation Extremities: Warm. No edema present Neuro: No focal weakness Skin: No rash Results & Data Vital Signs (Past 12 Hours) Vital Signs Temp Pulse Resp BP BP Pulse Ox 08/28/18 11:30 36.6 C 67 16 144/79 H 96 08/28/18 04:00 36.6 C 63 20 106/62 93 Laboratory Results 08/28/18 08/28/18 08/27/18 Range/Units 05:42 05:42 19:55 WBC 11.19 H (4.8-10.8) K/uL RBC 3.20 L (4.7-6.1) M/uL Hgb 9.5 L (14.0-18.0) g/dL Hct 28.7 L (42-52) % MCV 89.7 (80-100) fL MCH 29.7 (25-34) pg MCHC 33.1 (32-36) g/dL RDW Std Deviation 49.5 H (36.4-46.3) fL RDW Coeff of [place] 15.2 H (11.5-14.5) % Plt Count 244 (130-400) K/uL MPV 9.6 (7.4-10.4) fL Sodium 139 (136-145) mmol/L Potassium 3.8 (3.5-5.1) mmol/L Chloride 108 H (98-107) mmol/L Carbon Dioxide 27 (21-32) mmol/L Anion Gap 4.0 (3-11) BUN 31 H (7-18) mg/dl Creatinine 1.72 H (0.6-1.4) mg/dl Est Cr Clr Drug Dosing 32.6 ml/min Est GFR ( Amer) 42.9 Est GFR (Non-Af Amer) 37.0 BUN/Creatinine Ratio 17.8 (10-20) Glucose 94 (70-99) mg/dl Calcium 8.0 L (8.5-10.1) mg/dl Magnesium 2.2 (1.8-2.4) mg/dl Troponin I < 0.015 (0-0.045) ng/ml 08/27/18 Range/Units 14:14 WBC (4.8-10.8) K/uL RBC (4.7-6.1) M/uL Hgb (14.0-18.0) g/dL Hct (42-52) % MCV (80-100) fL MCH (25-34) pg MCHC (32-36) g/dL RDW Std Deviation (36.4-46.3) fL RDW Coeff of [place] (11.5-14.5) % Plt Count (130-400) K/uL MPV (7.4-10.4) fL Sodium (136-145) mmol/L Potassium (3.5-5.1) mmol/L Chloride (98-107) mmol/L Carbon Dioxide (21-32) mmol/L Anion Gap (3-11) BUN (7-18) mg/dl Creatinine (0.6-1.4) mg/dl Est Cr Clr Drug Dosing ml/min Est GFR ( Amer) Est GFR (Non-Af Amer) BUN/Creatinine Ratio (10-20) Glucose (70-99) mg/dl Calcium (8.5-10.1) mg/dl Magnesium (1.8-2.4) mg/dl Troponin I < 0.015 (0-0.045) ng/ml PG Care Time/CCT Total # of Minutes Spent Total Time Spent with Patient: Total time spent is greater than 50% in coordination of care (as documented) at patient's floor/unit and/or counseling patient: (1) Atrial fibrillation Atrial fibrillation type: permanent Qualified Code(s): I48.2 - Chronic atrial fibrillation (2) Hypothyroidism Hypothyroidism type: acquired Qualified Code(s): E03.9 - Hypothyroidism, unspecified (3) CAD (coronary artery disease), [place] coronary artery Associated angina: without angina [place] vs. transplanted heart: [place] heart Qualified Code(s): I25.10 - Atherosclerotic heart disease of [place] coronary artery without angina pectoris (4) Fall Encounter type: initial encounter Qualified Code(s): W19.XXXA - Unspecified fall, initial encounter
[2018-08-28] MEDS: TRAMADOL HCL 50 MG TABLET PO PRN (15:53)
[2018-08-28] MEDS: TAMSULOSIN HCL 0.4 MG CAP PO SCH (16:57)
[2018-08-28] MEDS: GABAPENTIN 300 MG CAP PO SCH (20:05)
[2018-08-28] MEDS: SIMVASTATIN 80 MG TAB PO SCH (20:05)
[2018-08-28] MEDS: DONEPEZIL HCL 10 MG TAB PO SCH (20:05)
[2018-08-28] MEDS ORDERED: TRAMADOL/ACETAMINOPHEN 37.5/325MG TAB PO ONE (23:37)
[2018-08-29] MEDS: LEVOTHYROXINE SODIUM 100 MCG TABLET PO SCH (06:04)
[2018-08-29 07:22] LABS: Hematocrit (blood only) 29.2 % (42-52); Hemoglobin 9.7 g/dL (14.0-18.0); Mean Corpuscular Hgb Conc 33.2 g/dL (32-36); Mean Corpuscular Volume 89.6 fL (80-100); Mean Platelet Volume 9.5 fL (7.4-10.4); Platelet Count 245 K/uL (130-400); RDW Coefficient of Variation 15.2 % (11.5-14.5); RDW Standard Deviation 49.5 fL (36.4-46.3); Red Blood Count 3.26 M/uL (4.7-6.1)
[2018-08-29 07:50] LABS: BUN Creatinine Ratio 15.1 (10-20); Calcium 8.7 mg/dl (8.5-10.1); Creatinine Clr Calc Pharmacy 40.7 ml/min; Est GFR (Non-African American) 42.3; Potassium 3.6 mmol/L (3.5-5.1)
[2018-08-29] MEDS: PANTOprazole 40 MG TAB PO SCH (08:12)
[2018-08-29] MEDS: ISOSORBIDE MONO EXTENDED REL 60 MG TABCR PO SCH (08:12)
[2018-08-29] MEDS: CALCIUM CARBONATE 1250MG TAB PO SCH (08:12)
[2018-08-29] MEDS: CYANOCOBALAMIN 500 MCG TABLET (VITAMIN B-12) PO SCH (08:13)
[2018-08-29] MEDS: ASPIRIN 81 MG ECTAB PO SCH (08:13)
[2018-08-29] MEDS: MEMANTINE HCL 10 MG TAB PO SCH ×2 (08:13→21:28)
[2018-08-29] MEDS: FOLIC ACID 1 MG TAB PO SCH (08:13)
[2018-08-29] MEDS: CARVEDILOL 3.125 MG TAB PO SCH ×2 (08:13→17:51)
[2018-08-29] MEDS: APIXABAN 5 MG TABLET PO SCH ×2 (08:14→21:27)
[2018-08-29] MEDS: hydroCHLOROthiazide 25 MG TAB PO SCH (08:14)
[2018-08-29] MEDS: FERROUS SULFATE 325 MG TAB PO SCH ×2 (08:14→17:30)
[2018-08-29] MEDS: BETHANECHOL CHL 25 MG TAB PO SCH ×4 (08:15→21:29)
[2018-08-29] MEDS: DOCUSATE SODIUM/SENNA 50/8.6MG TAB PO SCH ×2 (08:15→21:25)
[2018-08-29] MEDS: LIDOCAINE 5% 1 PATCH TD SCH (08:16)
[2018-08-29] MEDS ORDERED: methylPREDNISolone 4 MG TAB, 6 DAY TAPER PO SCH (09:45)
[2018-08-29] MEDS: methylPREDNISolone 4 MG TAB PO SCH ×4 (11:10→21:27)
[2018-08-29] MEDS: CITALOPRAM 20 MG TAB PO SCH (11:11)
[2018-08-29] MEDS: cefTRIAXone SODIUM 2,000 MG in DEXTROSE 5% 50 ML IV SCH (11:46)
--- NOTE | 2018-08-29 11:54 | Hospitalist Progress Note ---
Date of Service August 29, 2018 Assessment & Plan (1) Acute UTI: - Most recent urology procedure (has bilateral stents) completed on 07/06/18. - UC positive for Grisel and gram negative bacilli -- culture is still pending, no sensitivities yet. - Continue Fluconazole and Ceftriaxone for empiric coverage. - Urology consulted, appreciate input. Follow up as outpatient. - Resumed anticoagulation therapy as pt. will not require intervention. - Continue to maintain myles catheter. (2) Right-sided chest pain: - Likely related to musculoskeletal issue -- is extremely tender to palpation. - Cardiac work up was negative. - CXR negative for acute abnormalities. - Started Lidocaine patch with some improvement. - Will also started Medrol dose pack for inflammation; NSAIDs contraindicated due to risk of bleeding. - PPI daily for GERD symptoms (not likely related) (3) Fall: - Related to weakness in setting of acute infection. - PT/OT -- no therapy needs anticipated at discharge. (4) ARF (acute renal failure): - Creatinine 2.01 at admission -- now trending down. - No IVFs indicated. (5) BPH w urinary obs/LUTS: - Continue home Flomax as prescribed. - Continue myles care as noted above. (6) Atrial fibrillation: - Continue home Coreg, Eliquis and Aspirin. - In NSR on monitor. (7) Bilateral renal masses: - Follows with urology, recently biopsied during procedure on 07/06/18. (8) HTN (hypertension), benign: - Continue home HCTZ, Imdur, Coreg as prescribed. (9) Hyperlipidemia: - Continue home statin. (10) Hypothyroidism: - Continue Synthroid 100 mcg daily. - Most recent TSH was 1.58 in May 2018. (11) CAD (coronary artery disease), [place] coronary artery: - Continue home beta christina, aspirin, Imdur, statin, Eliquis as prescribed. - Does have right sided chest pain - see above. (12) Depression: - Continue home Celexa as prescribed. (13) Dementia: - Continue home Aricept, Namenda as prescribed. (14) Chronic pain: - Continue home meds -- Gabapentin 300 mg qhs. (15) Cardiac pacemaker in situ: - Noted, followed as outpatient. (16) Iron deficiency anemia: - Continue ferrous sulfate 325 mg BID. - Monitor H/H daily -- at baseline. - Most recent iron studies in June 2018. (17) DVT prophylaxis: - SCDs; ASA and Eliquis. Dispo: Discharge pending results of UC to determine abx plans and improvement in right sided chest pain. Supervising Physician Co-Signing Physician Notes Attending Attestation - Chart reviewed in detail, care plan d/w KAMI Mason. I agree w/ the delaney components of her documentation. Pt remains on diflucan and rocephin for UTI - has grisel and GNR on culture, final results pending, will GNR be pseudomonas or other hospital-acquired GNR pathogen?? Right-sided chest wall pain - cont topical Rx. Reasonable to try some steroids for this. If pain persists would need additional imaging although chest x-ray recently w/o rib fractures, etc. GIOVANY in setting of baseline CKD stage 3. GIOVANY continues to improve - Cr now 1.5 BMP in am again. Other chronic medical issues stable. Wilberto Wu MD Subjective Pt. has ongoing right sided chest pain this morning. Mild improvement in lidocaine patch. Has ice pack on chest during rounds. Denies SOB, palpitations. Pain is worse with movement, TTP on exam. Has good myles output, is having BMs. Review of Systems Review of Systems: All systems reviewed & are unremarkable except as noted in HPI & below Constitutional: no fever, no chills, no fatigue, no weakness and no anorexia Respiratory: no cough, no dyspnea, no dyspnea on exertion and no wheezing Cardiovascular: + chest pain; no radiating jaw, neck or arm pain, no palpitations, no lightheadedness, no syncope and no edema Gastrointestinal: no abdominal pain, no nausea and no constipation Genitourinary: no difficulty urinating and no hematuria Musculoskeletal: no back pain and no joint pain Integumentary: no non-healing lesions Allergy / Immunological: no rash Physical Exam Physical Exam: General: Resting comfortably HEENT: NC/AT; PERRLA with EOMI; Carlyss conjunctiva, MMM. No erythema of posterior pharynx Neck: Supple and nontender Cardiac: RRR, systolic murmur. Tenderness to light palpation noted over muscular region of right chest, no sudheer deformities or abnormalities noted. Lungs: CTA bilaterally Abdomen: Bowel normoactive X 4; Nontender to palpation Extremities: Warm. No edema present Neuro: No focal weakness Skin: No rash Results & Data Vital Signs (Past 12 Hours) Vital Signs Temp Pulse Pulse Resp BP BP Pulse Ox 08/29/18 11:17 36.5 C 65 20 111/70 95 08/29/18 07:48 53 L 08/29/18 07:00 36.6 C 85 20 158/98 H 95 08/29/18 04:00 36.8 C 76 20 149/87 H 96 Laboratory Results 08/29/18 08/29/18 Range/Units 07:07 07:07 WBC 9.20 (4.8-10.8) K/uL RBC 3.26 L (4.7-6.1) M/uL Hgb 9.7 L (14.0-18.0) g/dL Hct 29.2 L (42-52) % MCV 89.6 (80-100) fL MCH 29.8 (25-34) pg MCHC 33.2 (32-36) g/dL RDW Std Deviation 49.5 H (36.4-46.3) fL RDW Coeff of Curtis 15.2 H (11.5-14.5) % Plt Count 245 (130-400) K/uL MPV 9.5 (7.4-10.4) fL Sodium 141 (136-145) mmol/L Potassium 3.6 (3.5-5.1) mmol/L Chloride 108 H (98-107) mmol/L Carbon Dioxide 30 (21-32) mmol/L Anion Gap 3.0 (3-11) BUN 23 H (7-18) mg/dl Creatinine 1.54 H (0.6-1.4) mg/dl Est Cr Clr Drug Dosing 40.7 ml/min Est GFR ( Amer) 49.0 Est GFR (Non-Af Amer) 42.3 BUN/Creatinine Ratio 15.1 (10-20) Glucose 85 (70-99) mg/dl Calcium 8.7 (8.5-10.1) mg/dl PG Care Time/CCT Total # of Minutes Spent Total Time Spent with Patient: Total time spent is greater than 50% in coordination of care (as documented) at patient's floor/unit and/or counseling patient: (1) Atrial fibrillation Atrial fibrillation type: permanent Qualified Code(s): I48.2 - Chronic atrial fibrillation (2) Hypothyroidism Hypothyroidism type: acquired Qualified Code(s): E03.9 - Hypothyroidism, unspecified (3) CAD (coronary artery disease), [place] coronary artery Associated angina: without angina [place] vs. transplanted heart: [place] heart Qualified Code(s): I25.10 - Atherosclerotic heart disease of [place] coronary artery without angina pectoris (4) Fall Encounter type: initial encounter Qualified Code(s): W19.XXXA - Unspecified fall, initial encounter
[2018-08-29] MEDS: FLUCONAZOLE 100 MG/50 ML BAG IV SCH (12:18)
[2018-08-29] MEDS: TRAMADOL HCL 50 MG TABLET PO PRN (12:18)
[2018-08-29] MEDS: ACETAMINOPHEN 325 MG TAB PO PRN ×2 (14:04→21:24)
[2018-08-29] MEDS: TAMSULOSIN HCL 0.4 MG CAP PO SCH (17:30)
[2018-08-29] MEDS: MICONAZOLE NITRATE POWDER 43 GM EXT PRN (21:24)
[2018-08-29] MEDS: DONEPEZIL HCL 10 MG TAB PO SCH (21:26)
[2018-08-29] MEDS: GABAPENTIN 300 MG CAP PO SCH (21:28)
[2018-08-29] MEDS: SIMVASTATIN 80 MG TAB PO SCH (21:29)
[2018-08-30] MEDS: methylPREDNISolone 4 MG TAB PO SCH ×3 (06:14→18:35)
[2018-08-30] MEDS: LEVOTHYROXINE SODIUM 100 MCG TABLET PO SCH (06:14)
[2018-08-30 06:57] LABS: Hematocrit (blood only) 30.9 % (42-52); Hemoglobin 10.2 g/dL (14.0-18.0); Mean Corpuscular Volume 90.4 fL (80-100); Mean Platelet Volume 10.1 fL (7.4-10.4); Platelet Count 284 K/uL (130-400); RDW Coefficient of Variation 14.9 % (11.5-14.5); RDW Standard Deviation 49.8 fL (36.4-46.3); Red Blood Count 3.42 M/uL (4.7-6.1); White Blood Count 8.33 K/uL (4.8-10.8)
[2018-08-30 07:35] LABS: BUN Creatinine Ratio 16.1 (10-20); Calcium 8.7 mg/dl (8.5-10.1); Creatinine Clr Calc Pharmacy 45.2 ml/min; Est GFR (Non-African American) 48.3; Potassium 3.8 mmol/L (3.5-5.1)
--- NOTE | 2018-08-30 07:49 | Hospitalist Progress Note ---
Date of Service August 30, 2018 Assessment & Plan (1) Acute UTI: - Most recent urology procedure (has bilateral stents) completed on 07/06/18. This is for stent exchange with bilateral renal masses which have yet to show high-grade malignancy - UC positive for Monalisa and Stenotrophomonas - Continue Fluconazole and ceftazidime for empiric coverage, pending infectious disease consultation. - Urology consulted, appreciate input. Follow up as outpatient. - Resumed anticoagulation therapy as pt. will not require intervention. - Continue to maintain myles catheter. (2) Right-sided chest pain: - Likely related to musculoskeletal issue -- is extremely tender to palpation. - Cardiac work up was negative. - CXR negative for acute abnormalities. - Started Lidocaine patch with some improvement this is point tenderness along the right rib cage we will get dedicated rib films look for occult fracture or pathological fracture. - Will also started Medrol dose pack for inflammation; NSAIDs contraindicated due to risk of bleeding. - PPI daily for GERD symptoms (not likely related) (3) Fall: - Related to weakness in setting of acute infection. - PT/OT -- no therapy needs anticipated at discharge. (4) ARF (acute renal failure): - Creatinine 2.01 at admission -- now trending down. (5) BPH w urinary obs/LUTS: - Continue home Flomax as prescribed. - Continue myles care as noted above. (6) Atrial fibrillation: - Continue home Coreg, Eliquis and Aspirin. - In NSR on monitor. (7) Bilateral renal masses: - Follows with urology, recently biopsied during procedure on 07/06/18. (8) HTN (hypertension), benign: - Continue home HCTZ, Imdur, Coreg as prescribed. (9) Hyperlipidemia: - Continue home statin. (10) Hypothyroidism: - Continue Synthroid 100 mcg daily. - Most recent TSH was 1.58 in May 2018. (11) CAD (coronary artery disease), [place] coronary artery: - Continue home beta christina, aspirin, Imdur, statin, Eliquis as prescribed. - Does have right sided chest pain - see above. (12) Depression: - Continue home Celexa as prescribed. (13) Dementia: - Continue home Aricept, Namenda as prescribed. (14) Chronic pain: - Continue home meds -- Gabapentin 300 mg qhs. (15) Cardiac pacemaker in situ: - Noted, followed as outpatient. (16) Iron deficiency anemia: - Continue ferrous sulfate 325 mg BID. - Monitor H/H daily -- at baseline. - Most recent iron studies in June 2018. (17) DVT prophylaxis: - SCDs; ASA and Eliquis. Dispo: Discharge pending results of UC to determine abx plans and improvement in right sided chest pain. Subjective Patient is fatigued he is says he is very tired during the day he was having some issues with sleeping at night. He has not been ambulating significantly in his room. I conveyed the fact that we have his urine culture showing stenotrophomonas and I am going to confer with infectious disease regarding appropriate antibiotic duration and choice given he has bilateral ureteral stents placed Review of Systems Review of Systems: ROS: well nourished well developed. No double vision blurry vision No problems with speech or swallowing No palpitations, chest pain or pressure No Wheezing or breathing issues Mild diffuse abdominal pain without nausea vomiting No burning urine urine frequency no hematuria at this point time No focal joint pain or muscle pain No skin rashes or oral lesions No unusual bruising or bleeding No focused back pain or numbness or loss of strength No changes in memory or confusion Physical Exam Physical Exam: The patient appeared well nourished and normally developed. Vital signs as documented. Head exam is unremarkable. normocephalic, atraumatic Neck is without jugular venous distension, thyromegaly, or lymphademopathy Lungs are clear to auscultation and percussion. Cardiac exam reveals Rhythm is regular. First and second heart sounds normal. Abdominal exam reveals normal bowel sounds, only mild tenderness to palpation no focal tenderness guarding or rebound Extremities are nonedematous and both pedal pulses are present Neurologic exam is A&Ox3, no focal deficits, strength is equal bilateral Psychologically seems neither anxious or depressed Skin is warm Dry Results & Data Vital Signs (Past 12 Hours) Vital Signs Temp Pulse Pulse Resp BP Pulse Ox 08/30/18 07:09 70 08/30/18 04:00 36.6 C 60 20 149/80 H 96 08/30/18 00:13 63 08/30/18 00:00 36.5 C 55 L 20 154/84 H 93 08/29/18 20:00 36.8 C 62 20 147/76 H 20 L PG Care Time/CCT Total # of Minutes Spent Total Time Spent with Patient: Total time spent is greater than 50% in coordination of care (as documented) at patient's floor/unit and/or counseling patient: (1) Atrial fibrillation Atrial fibrillation type: permanent Qualified Code(s): I48.2 - Chronic atrial fibrillation (2) Hypothyroidism Hypothyroidism type: acquired Qualified Code(s): E03.9 - Hypothyroidism, unspecified (3) CAD (coronary artery disease), [place] coronary artery Associated angina: without angina [place] vs. transplanted heart: [place] heart Qualified Code(s): I25.10 - Atherosclerotic heart disease of [place] coronary artery without angina pectoris (4) Fall Encounter type: initial encounter Qualified Code(s): W19.XXXA - Unspecified fall, initial encounter
[2018-08-30] MEDS: CYANOCOBALAMIN 500 MCG TABLET (VITAMIN B-12) PO SCH (07:50)
[2018-08-30] MEDS: BETHANECHOL CHL 25 MG TAB PO SCH ×4 (07:50→20:25)
[2018-08-30] MEDS: PANTOprazole 40 MG TAB PO SCH (07:51)
[2018-08-30] MEDS: ISOSORBIDE MONO EXTENDED REL 60 MG TABCR PO SCH (07:51)
[2018-08-30] MEDS: CALCIUM CARBONATE 1250MG TAB PO SCH (07:53)
[2018-08-30] MEDS: ASPIRIN 81 MG ECTAB PO SCH (07:53)
[2018-08-30] MEDS: MEMANTINE HCL 10 MG TAB PO SCH ×2 (07:54→20:22)
[2018-08-30] MEDS: hydroCHLOROthiazide 25 MG TAB PO SCH (07:54)
[2018-08-30] MEDS: FERROUS SULFATE 325 MG TAB PO SCH ×2 (07:54→16:17)
[2018-08-30] MEDS: CARVEDILOL 3.125 MG TAB PO SCH ×2 (07:54→16:16)
[2018-08-30] MEDS: FOLIC ACID 1 MG TAB PO SCH (07:54)
[2018-08-30] MEDS: APIXABAN 5 MG TABLET PO SCH ×2 (07:54→20:21)
[2018-08-30] MEDS: DOCUSATE SODIUM/SENNA 50/8.6MG TAB PO SCH ×2 (07:55→20:24)
[2018-08-30] MEDS: LIDOCAINE 5% 1 PATCH TD SCH (07:55)
[2018-08-30] MEDS: CITALOPRAM 20 MG TAB PO SCH (11:45)
[2018-08-30] MEDS: FLUCONAZOLE 100 MG/50 ML BAG IV SCH (12:33)
--- NOTE | 2018-08-30 15:39 | Infectious Disease Consult ---
Date of Consultation August 30, 2018 Assessment & Plan (1) Acute UTI: Patient with urinary tract infection associated with obstructive uropathy and indwelling urinary stents, with cultures positive for stenotrophomonas and Monalisa albicans. Given allergies to levofloxacin and sulfa drugs, will need to use IV ceftazidime to cover the stenotrophomonas. Would give 14 days of treatment. Would continue on fluconazole for Monalisa infection. Case discussed with hospitalist service. Will follow. (2) Monalisa UTI: (3) Infection due to Stenotrophomonas maltophilia: History of Present Illness Reason for Consultation: Stenotrophomonas infection, allergic to levofloxacin and sulfa drugs Attending Physician: Ashvin lBoom MD History of Present Illness 78-year-old male with history of hypertension, pacemaker, hypothyroidism, coronary artery disease, was hospitalized in June for obstructive uropathy with finding of bilateral renal masses, and required placement of urethral stents. Was treated with antibiotics for urinary tract infection and pneumonia at the time. He was readmitted on August 26 [facility], and has been found to have evidence of recurrent infection. Cultures now growing stenotrophomonas and Monalisa albicans. CT scan of the abdomen shows mild hydronephrosis and thickening of the right ureter consistent with infection. Has been treated with ceftriaxone and fluconazole. Currently afebrile, denies any significant abdominal pain. Cultures have been negative. Allergies Allergy/AdvReac Type Severity Reaction Status Date / Time captopril Allergy Severe ANAPHYLAXIS Verified 08/26/18 08:43 Iodinated Contrast- Oral and Allergy Severe ANAPHYLAXIS Verified 08/26/18 08:43 IV Dye levofloxacin Allergy Severe ANAPHYLAXIS Verified 08/26/18 08:43 oxaprozin Allergy Severe ANAPHYLAXIS Verified 08/26/18 08:43 torsemide Allergy Severe ANAPHYLAXIS Verified 08/26/18 08:43 hydrocodone Allergy Mild RASH Verified 08/26/18 08:43 morphine Allergy Unknown Anaphylaxis Verified 08/26/18 08:43 Sulfa (Sulfonamide Allergy Unknown Anaphylaxis Verified 08/26/18 08:43 Antibiotics) Home Medications Home Medications Medication Instructions Recorded Confirmed Type aspirin [Aspir-81] 81 mg PO QAM 06/05/18 08/26/18 History bethanechol chloride [Urecholine] 50 mg PO QID 06/05/18 08/26/18 History carvedilol [Coreg] 3.125 mg PO BIDM 06/05/18 08/26/18 History donepezil 10 mg PO HS 06/05/18 08/26/18 History epinephrine [EpiPen] 0.3 mg IM UD PRN 06/05/18 08/26/18 History gabapentin 300 mg PO HS 06/05/18 08/26/18 History hydrochlorothiazide 12.5 mg PO QAM 06/05/18 08/26/18 History isosorbide mononitrate 60 mg PO QAM 06/05/18 08/26/18 History levothyroxine 100 mcg PO QAM 06/05/18 08/26/18 History memantine [Namenda] 10 mg PO BID 06/05/18 08/26/18 History nitroglycerin [Nitromist] 1 spray SUBLINGUAL UD PRN 06/05/18 08/26/18 History simvastatin 80 mg PO PM 06/05/18 08/26/18 History tamsulosin 0.4 mg PO QDD 06/05/18 08/26/18 History Eliquis 5 mg PO BID #60 tab 06/12/18 08/26/18 Rx tramadol 50 mg tablet 50 - 100 mg PO DAILY PRN #90 tab 08/15/18 08/26/18 Rx calcium carbonate [Calcium 600] 1,200 mg PO DAILY 08/26/18 08/26/18 History cyanocobalamin (vitamin B-12) 1,000 mcg PO DAILY 08/26/18 08/26/18 History [Vitamin B-12] ferrous sulfate 325 mg PO BIDM 08/26/18 08/26/18 History folic acid 1 mg PO DAILY 08/26/18 08/26/18 History ceftazidime 2 gm IV Q24H #12 ea 08/31/18 Rx fluconazole 100 mg PO DAILY 14 Days #12 tab 08/31/18 Rx citalopram 10 mg tablet 10 mg PO DAILY #30 tab 09/02/18 Rx Patient History Medical History Anemia Cardiac pacemaker in situ [facility]. MOST RECENT PACER CHECK 05/19/18 HTN (hypertension), benign Hyperlipidemia Hypothyroidism CAD (coronary artery disease), [place] coronary artery S/P BMS to OM 1997. Caths also 2006, 2008 and 2013, no stents placed. Most recent cath in 2013 showed no angiographically significant stenosis other than 20-30% in-stent restenosis of OM. PNA (pneumonia) (Acute) During admission for septic UTI 05/2018. Discharged on ABX. Pre-op CXR 06/29 now shows persistent interstitial thickening but no acute parenchymal consolidation. O2 sat 96% on RA at PAT. BPH (benign prostatic hyperplasia) History of kidney stones Hx of gastric ulcer Hx of myocardial infarction 1998 Hx of sleep apnea Does not use CPAP at home Intermittent self-catheterization of bladder SSS (sick sinus syndrome) s/p pacemaker 2008, generator change 2016. UTI (urinary tract infection) ADMITTED [facility] 06/05 TO 06/12 FOR SEPTIC UTI 2/2 OBSTRUCTIVE UROPATHY. Surgical History H/O total knee replacement RIGHT AND LEFT History of cardiac cath + stents History of cataract surgery BOTH EYES History of lumbar fusion History of prostate surgery PARTIAL PROSTECTOMY Family History Father Family history of diabetes mellitus Mother FHx: heart disease Social History Preferred Language: Setswana Communication Ability: Effective Beliefs That Will Affect Care: None marital status: Current Living Situation: Family Feels Safe at Home: Yes Smoking Status: Former smoker Tobacco Type: cigarettes, pipe, cigars and smokeless tobacco Second Hand Exposure: No Hx Alcohol Use: No Hx Substance Use: No Physical Exam Constitutional: WD/WN, vitals as above comfortable; no acute distress Eyes: PERRL, conjunctivae normal, anicteric sclerae ENMT: external ear and nose normal, oropharynx normal Neck: trachea midline, no thyromegaly neck nontender Respiratory: normal respiratory effort, lungs clear to auscultation normal percussion; does not use accessory muscles Cardiovascular: Rate/Rhythm: regular rate and regular rhythm Heart Sounds: normal S1 and normal S2; no gallop, no murmur and no cardiac rub Vessels: normal peripheral pulses; no JVD Gastrointestinal (Abdomen): normal bowel sounds, soft, nontender, no hepatosplenomegaly Musculoskeletal: no cyanosis or clubbing, extremities motor strength 5/5 Spine: thoracic spine normal to inspection and lumbar spine normal to inspection; no cervical spinal tenderness Skin: no rashes, warm and dry normal turgor; no lesions Neurologic: patellar DTR's 2+ bilat, sensation intact no focal motor deficits Psychiatric: A+Ox3, euthymic affect Orientation: cooperative Lymphatic: no cervical or axillary lymphadenopathy no inguinal lymphadenopathy Results & Data Vital Signs (Past 12 Hours) Vital Signs Temp Pulse Pulse Resp BP BP Pulse Ox 08/30/18 15:18 66 08/30/18 11:00 36.4 C L 66 20 158/90 H 97 08/30/18 07:09 70 08/30/18 07:00 36.5 C 49 L 20 156/74 H 167/83 H 90 08/30/18 04:00 36.6 C 60 20 149/80 H 96 Laboratory Results Short CBC 08/30/18 Range/Units 06:34 WBC 8.33 (4.8-10.8) K/uL Hgb 10.2 L (14.0-18.0) g/dL Hct 30.9 L (42-52) % Plt Count 284 (130-400) K/uL BMP 08/30/18 06:34 Sodium 139 Potassium 3.8 Chloride 104 Carbon Dioxide 29 BUN 22 H Creatinine 1.38 Glucose 140 H Calcium 8.7 Diagnostic Findings Microbiology 08/26/18 08:57 Urine,Indwelling Cath Urine Culture - Final Monalisa albicans Stenotrophomonas maltophilia CT abd pelvis wo con CLINICAL HISTORY: 78 years-old Male presenting with previous renal mass and obstruction with sepsis. TECHNIQUE: Multidetector CT of the abdomen and pelvis was performed without the use of intravenous contrast. IV contrast: None. One or more dose lowering techniques were used consistent with the principles of ALARA (as low as reasonably achievable), including automatic exposure control, mA or kV adjustment to individual patient size, and/or use of iterative reconstruction. COMPARISON: 07/13/2018. CT DOSE (mGy.cm): The estimated cumulative dose is 463.20 mGy.cm. 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 Cholecystectomy clips. Bilateral ureteral stents. Penile implant. Lung bases: Multichamber enlargement of the heart. Coronary artery and aortic valve calcification. Pacer leads noted. No pericardial or pleural effusion. Reticulation in a dependent distribution at the lung bases may represent scarring or atelectasis. Mild bronchial wall thickening in the lower lobes may relate to chronic aspiration. Liver: Normal morphology. Density borderline for hepatic steatosis. Few punctate parenchymal calcifications. Biliary: Mild biliary ductal prominence likely a reservoir effect in the post cholecystectomy state. Gallbladder surgically absent. Pancreas: Mild parenchymal atrophy. Spleen: Parenchymal calcifications suggest a history of granulomatous disease. Adrenal glands: Normal noncontrast appearance. Kidneys and ureters: Bilateral ureteral stents in place. Right hydronephrosis is new from prior. Persistent apparent left hydronephrosis. Atrophy of the left kidney with several cysts noted. Urothelial thickening of the right urinary collecting system. Moderate right perinephric fat stranding is somewhat asymmetric in comparison to the left. Evaluation for solid renal or urothelial lesion is extremely limited in the absence of intravenous contrast. Bladder: Ureteral stents terminate in the bladder lumen, which is decompressed with a Michel catheter. Pelvic organs: Penile implant in place. The prostate may be surgically absent or atrophic. Bowel: Normal appendix. No bowel obstruction. Peritoneal cavity: No free fluid or intraperitoneal gas. Lymph nodes: No gross lymphadenopathy allowing for noncontrast technique. Vasculature: Atherosclerosis of the normal caliber abdominal aorta. Abdominal wall: Fat-containing bilateral inguinal hernias. Fat-containing umbilical hernia. Musculoskeletal: Degenerative changes of the spine. Degenerative changes of the right hip. Severe degenerative changes of the left hip. Degenerative changes of the sacroiliac joints. IMPRESSION: 1. Interval development of right hydronephrosis despite the presence of the right ureteral stent. A clear etiology for this obstruction is not apparent. 2. Right urothelial thickening could suggest underlying upper tract infection. Correlate with urinalysis. 3. Extremely limited examination for solid renal or urothelial mass. If the patient cannot receive intravenous contrast, a noncontrast MRI would be recommended on a nonurgent basis for evaluation of the reported right renal lesion. 4. Left ureteral stent in place with persistent distention of the left collecting system and chronic left renal atrophy. 5. Cardiomegaly. 6. Severe degenerative changes of the left hip. Electronically signed by: Rodo Clements M.D. 08/26/2018 10:35 AM
[2018-08-30] MEDS: TAMSULOSIN HCL 0.4 MG CAP PO SCH (16:18)
--- NOTE | 2018-08-30 17:25 | XRay Report ---
XR ribs RT min 2V CLINICAL HISTORY: pain just lateral to nipple line to axilla pain. COMPARISON: None. DISCUSSION: Nondisplaced cortical fracture right fifth rib mid axillary line. All remaining ribs are considered unremarkable. Right lung is considered clear. No evidence of pneumothorax. There is no jayson dence for soft tissue swelling. IMPRESSION: Nondisplaced cortical fracture right fifth rib mid axillary line. No evidence for pneumot horax. The above report was generated using voice recognition software. It may contain grammatical, syntax or spelling errors. Electronically signed by: Trip Ramirez M.D. 08/30/2018 5:24 PM
[2018-08-30] MEDS: DONEPEZIL HCL 10 MG TAB PO SCH (20:20)
[2018-08-30] MEDS: GABAPENTIN 300 MG CAP PO SCH (20:23)
[2018-08-30] MEDS: SIMVASTATIN 80 MG TAB PO SCH (20:25)
[2018-08-30] MEDS ORDERED: methylPREDNISolone 4 MG TAB PO SCH (21:00)
[2018-08-31] MEDS: TRAMADOL HCL 50 MG TABLET PO PRN (01:35)
[2018-08-31] MEDS: ACETAMINOPHEN 325 MG TAB PO PRN ×2 (05:57→19:48)
[2018-08-31] MEDS: LEVOTHYROXINE SODIUM 100 MCG TABLET PO SCH (05:57)
[2018-08-31] MEDS: methylPREDNISolone 4 MG TAB PO SCH ×4 (07:07→20:48)
[2018-08-31] MEDS: CALCIUM CARBONATE 1250MG TAB PO SCH (09:11)
[2018-08-31] MEDS: CYANOCOBALAMIN 500 MCG TABLET (VITAMIN B-12) PO SCH (09:11)
[2018-08-31] MEDS: DOCUSATE SODIUM/SENNA 50/8.6MG TAB PO SCH ×2 (09:12→20:48)
[2018-08-31] MEDS: ISOSORBIDE MONO EXTENDED REL 60 MG TABCR PO SCH (09:12)
[2018-08-31] MEDS: CARVEDILOL 3.125 MG TAB PO SCH ×2 (09:12→17:04)
[2018-08-31] MEDS: FERROUS SULFATE 325 MG TAB PO SCH ×2 (09:13→17:04)
[2018-08-31] MEDS: hydroCHLOROthiazide 25 MG TAB PO SCH (09:13)
[2018-08-31] MEDS: FOLIC ACID 1 MG TAB PO SCH (09:14)
[2018-08-31] MEDS: MEMANTINE HCL 10 MG TAB PO SCH ×2 (09:14→20:48)
[2018-08-31] MEDS: APIXABAN 5 MG TABLET PO SCH ×2 (09:14→20:47)
[2018-08-31] MEDS: PANTOprazole 40 MG TAB PO SCH (09:14)
[2018-08-31] MEDS: BETHANECHOL CHL 25 MG TAB PO SCH ×4 (09:14→20:48)
[2018-08-31] MEDS: LIDOCAINE 5% 1 PATCH TD SCH (09:15)
[2018-08-31] MEDS: ASPIRIN 81 MG ECTAB PO SCH (09:15)
[2018-08-31] MEDS: CITALOPRAM 20 MG TAB PO SCH (11:58)
--- NOTE | 2018-08-31 12:55 | Discharge Summary ---
Date of Service August 31, 2018 Admission HPI Per Admitting Provider 78 y/o M who was brought here today after a fall early this AM. Daughter who is present is not the daughter who usually takes care of pt as she is more involved in the care of pt's who has recently been placed in a SNF. She states that her sister told her that pt fell this AM, she thinks around 530-630. Other daughter heard pt hit the floor, so pt was not down for long. They believe it was a mechanical fall, although pt has dementia and cannot relay events. He was without LOC when she came into the room. He told daughter that he felt weak prior to falling. Pt complains a pain in his R chest, but states it has been present for weeks. Daughter confirms this. Pt has no other concerns at this time. Pt denies fever, SOB, abd pain, n/v/c/d, LE pain or swelling. Daughter states that she has not heard him or her sister mention other issues at home. He is eating without issue, but does continue to lose weight. Pt with recent UTI/sepsis due to obstruction with b/l renal masses. He also had a PNA at that time. Pt had 2 stents placed and was d/c'd on 06/[address]. He has been on two abx since that time. He has had urology f/u. Daughter states there is some sort of urological procedure pending that would determine if cath could be d/c'd, but could not elaborate further. Daughter states that last week, pt's urine had a light red color. They had him drink more water and it returned to yellow. Principal Diagnosis complex urinary infection with both grisel and bacteria ( stenothophomonas) b/l ureteral stents Discharge Exam The patient appeared chronic ill Vital signs as documented. Head exam is unremarkable. normocephalic, atraumatic Neck is without jugular venous distension, thyromegaly, or lymphademopathy Lungs are clear to auscultation and percussion. Cardiac exam reveals Rhythm is regular. Abdominal exam reveals normal bowel sounds, no masses, no organomegaly Extremities are nonedematous and both pedal pulses are present Neurologic exam is A&Ox3, no focal deficits, strength is equal bilateral Psychologically seems neither anxious or depressed Skin is warm Dry Discharge Data Allergies Allergy/AdvReac Type Severity Reaction Status Date / Time captopril Allergy Severe ANAPHYLAXIS Verified 08/26/18 08:43 Iodinated Contrast- Oral and Allergy Severe ANAPHYLAXIS Verified 08/26/18 08:43 IV Dye levofloxacin Allergy Severe ANAPHYLAXIS Verified 08/26/18 08:43 oxaprozin Allergy Severe ANAPHYLAXIS Verified 08/26/18 08:43 torsemide Allergy Severe ANAPHYLAXIS Verified 08/26/18 08:43 hydrocodone Allergy Mild RASH Verified 08/26/18 08:43 morphine Allergy Unknown Anaphylaxis Verified 08/26/18 08:43 Sulfa (Sulfonamide Allergy Unknown Anaphylaxis Verified 08/26/18 08:43 Antibiotics) Consultations 08/26/18 12:19 Consult Urology Stat ED Decision to Admit Stat 08/26/18 15:45 Consult Case Management - Discharge Planning Routine Consult Urology Routine 08/30/18 07:52 Consult Infectious Diseases Routine Ordered Studies 08/26/18 08:40 CT cervical spine wo con Stat CT head/brain wo con Stat 08/26/18 09:59 CT abd pelvis wo con Stat Hospital Course (1) Acute UTI: - Most recent urology procedure (has bilateral stents) completed on 07/06/18. This is for stent exchange with bilateral renal masses which have yet to show high-grade malignancy - UC positive for Grisel and Stenotrophomonas - Continue Fluconazole and ceftazidime with infectious disease oversight - Urology consulted, appreciate input. Follow up as outpatient. - Resumed anticoagulation therapy as pt. will not require intervention. - Continue to maintain myles catheter. (2) Right-sided chest pain: - right 5th rib fracture confirmed on rib films - Cardiac work up was negative. - CXR negative for other acute abnormalities. - will use tylenol for pain, po NSAIDs contraindicated due to risk of bleeding. - PPI daily for GERD symptoms (not likely related) (3) Fall: - Related to weakness in setting of acute infection. - PT/OT -- no therapy needs anticipated at discharge. (4) ARF (acute renal failure): - Creatinine 2.01 at admission -- trending down. (5) BPH w urinary obs/LUTS: - Continue home Flomax as prescribed. - Continue myles care as noted above, wiht urology oversight. (6) Atrial fibrillation: - Continue home Coreg, Eliquis and Aspirin. - In NSR on monitor. (7) Bilateral renal masses: - Follows with urology, recently biopsied during procedure on 07/06/18. (8) HTN (hypertension), benign: - Continue home HCTZ, Imdur, Coreg as prescribed. (9) Hyperlipidemia: - Continue home statin. (10) Hypothyroidism: - Continue Synthroid 100 mcg daily. - Most recent TSH was 1.58 in May 2018. (11) CAD (coronary artery disease), [place] coronary artery: - Continue home beta christina, aspirin, Imdur, statin, Eliquis as prescribe d. - Does have right sided chest pain - see above. (12) Depression: - Continue home Celexa as prescribed. (13) Dementia: - Continue home Aricept, Namenda as prescribed. (14) Chronic pain: - Continue home meds -- Gabapentin 300 mg qhs. (15) Cardiac pacemaker in situ: - Noted, followed as outpatient. (16) Iron deficiency anemia: - Continue ferrous sulfate 325 mg BID. - Monitor H/H daily -- at baseline. - Most recent iron studies in June 2018. Total Time Total Time Spent Total Time Spent (In Minutes): greater than 30 minutes were required to prepare discharge Discharge Plan Discharge Items Patient Disposition: Home - Home Health Services Reason For Visit: FUNGAL YEAST INFECTION Discharge Diagnosis: complex urinary infection with bacteria and fungus Discharge Goals: Decrease discomfort and Diagnostic testing Activity: Resume your previous activity Non-emergency contact: Primary Care Provider and Urologist Call non-emergency contact if: you have any medication questions Follow-up/Referrals: Celina Saunders DO [Primary Care Provider] - Diet: Regular Addtl Provider Instructions: drink plenty of fluids to assure good urine flow output complete all you prescribed antibiotics and antifungals please be sure of your urology follow up appointment you have a small rib fracture( broken rib) in the area of your pain which will reduce over time Prescriptions: New fluconazole 100 mg tablet 100 mg PO DAILY 14 Days Qty: 12 RF: 0 ceftazidime 2 gram recon soln 2 gm IV Q24H Qty: 12 RF: 0 Continued tramadol 50 mg tablet 50 - 100 mg PO DAILY PRN (Reason: Pain) Qty: 90 RF: 0 nitroglycerin [Nitromist] 400 mcg/spray Aerosol,[place] 1 spray sublingual UD PRN (Reason: Chest Pain) RF: 0 citalopram [Celexa] 10 mg tablet 10 mg PO QDL RF: 0 donepezil 10 mg Tablet 10 mg PO HS RF: 0 simvastatin 80 mg Tablet 80 mg PO PM RF: 0 aspirin [Aspir-81] 81 mg Tablet,Delayed Release (Dr/Ec) 81 mg PO QAM RF: 0 carvedilol [Coreg] 3.125 mg tablet 3.125 mg PO BIDM RF: 0 levothyroxine 100 mcg tablet 100 mcg PO QAM RF: 0 isosorbide mononitrate 60 mg tablet extended release 24 hr 60 mg PO QAM RF: 0 tamsulosin 0.4 mg Capsule 0.4 mg PO QDD RF: 0 gabapentin 300 mg Capsule 300 mg PO HS RF: 0 hydrochlorothiazide 25 mg tablet 12.5 mg PO QAM RF: 0 bethanechol chloride [Urecholine] 50 mg tablet 50 mg PO QID RF: 0 epinephrine [EpiPen] 0.3 mg/0.3 mL Auto-Injector 0.3 mg IM UD PRN (Reason: Allergic Reaction) RF: 0 memantine [Namenda] 10 mg tablet 10 mg PO BID RF: 0 Eliquis 2.5 mg Tablet 5 mg PO BID Qty: 60 RF: 0 cyanocobalamin (vitamin B-12) [Vitamin B-12] 1,000 mcg Tablet 1,000 mcg PO DAILY RF: 0 calcium carbonate [Calcium 600] 600 mg calcium (1,500 mg) Tablet 1,200 mg PO DAILY RF: 0 folic acid 1 mg tablet 1 mg PO DAILY RF: 0 ferrous sulfate 325 mg (65 mg iron) Tablet,Delayed Release (Dr/Ec) 325 mg PO BIDM RF: 0 Stand-Alone Forms: [facility] Admission Data Admit Date/Time: 08/26/18 13:19 Attending Provider: Ashvin Bloom Admit Provider: Norma Perez Primary Care Provider: Celina Saunders Other Providers: William Medrano II ; Norma Perez ; Wilberto Wu Jennifer Service: Telemetry Medical
[2018-08-31] MEDS: FLUCONAZOLE 100 MG/50 ML BAG IV SCH (13:38)
[2018-08-31] MEDS: TAMSULOSIN HCL 0.4 MG CAP PO SCH (17:04)
--- NOTE | 2018-08-31 17:49 | Infectious Disease Progress Nt ---
Date of Service August 31, 2018 Assessment & Plan (1) Acute UTI: Patient with urinary tract infection associated with obstructive uropathy and indwelling urinary stents, with cultures positive for stenotrophomonas and Monalisa albicans. Given allergies to levofloxacin and sulfa drugs, will need to use IV ceftazidime to cover the stenotrophomonas. Would give 14 days of treatment. Would continue on fluconazole for Monalisa infection. Case discussed with hospitalist service. Will follow. (2) Monalisa UTI: (3) Infection due to Stenotrophomonas maltophilia: Subjective Patient is fatigued he is says he is very tired during the day he was having some issues with sleeping at night. He has not been ambulating significantly in his room. Remains afebrile. Urine cultures growing stenotrophomonas and staph. Review of Systems Review of Systems: All systems reviewed & are unremarkable except as noted in HPI & below Physical Exam Constitutional: WD/WN, vitals as above comfortable; no acute distress Eyes: PERRL, conjunctivae normal, anicteric sclerae ENMT: external ear and nose normal, oropharynx normal Neck: trachea midline, no thyromegaly neck nontender Respiratory: normal respiratory effort, lungs clear to auscultation normal percussion; no respiratory distress Cardiovascular: Rate/Rhythm: regular rate and regular rhythm Heart Sounds: normal S1 and normal S2; no gallop, no murmur and no cardiac rub Gastrointestinal (Abdomen): normal bowel sounds, soft, nontender, no hepatosplenomegaly Musculoskeletal: no cyanosis or clubbing, extremities motor strength 5/5 No spinal tenderness, no joint swelling or erythema Skin: no rashes, warm and dry no lesions Neurologic: moves all extremities and awake; no focal motor deficits Motor/Sensory: no sensory deficit Psychiatric: A+Ox3, euthymic affect Lymphatic: no cervical or axillary lymphadenopathy no inguinal lymphadenopathy Results & Data Vital Signs (Past 12 Hours) Vital Signs Temp Pulse Pulse Pulse Resp BP BP 08/31/18 16:54 65 162/79 H 08/31/18 15:16 36.4 C L 59 L 22 186/83 H 08/31/18 11:46 36.4 C L 56 L 18 167/81 H 08/31/18 07:47 53 L 08/31/18 07:14 36.2 C L 56 L 16 174/76 H Pulse Ox 08/31/18 16:54 08/31/18 15:16 97 08/31/18 11:46 96 08/31/18 07:47 08/31/18 07:14 98
[2018-08-31] MEDS: DONEPEZIL HCL 10 MG TAB PO SCH (20:47)
[2018-08-31] MEDS: GABAPENTIN 300 MG CAP PO SCH (20:48)
[2018-08-31] MEDS: SIMVASTATIN 80 MG TAB PO SCH (20:49)
[2018-08-31] MEDS: MICONAZOLE NITRATE POWDER 43 GM EXT PRN (20:51)
[2018-09-01] MEDS: methylPREDNISolone 4 MG TAB PO SCH ×2 (05:53→13:17)
[2018-09-01] MEDS: LEVOTHYROXINE SODIUM 100 MCG TABLET PO SCH (05:53)
[2018-09-01] MEDS: TRAMADOL HCL 50 MG TABLET PO PRN (05:57)
[2018-09-01] MEDS ORDERED: CARVEDILOL 6.25 MG TAB PO SCH (08:00)
[2018-09-01] MEDS: CYANOCOBALAMIN 500 MCG TABLET (VITAMIN B-12) PO SCH (08:31)
[2018-09-01] MEDS: FOLIC ACID 1 MG TAB PO SCH (08:31)
[2018-09-01] MEDS: FERROUS SULFATE 325 MG TAB PO SCH (08:31)
[2018-09-01] MEDS: CALCIUM CARBONATE 1250MG TAB PO SCH (08:32)
[2018-09-01] MEDS: BETHANECHOL CHL 25 MG TAB PO SCH ×2 (08:32→13:17)
[2018-09-01] MEDS: ASPIRIN 81 MG ECTAB PO SCH (08:32)
[2018-09-01] MEDS: DOCUSATE SODIUM/SENNA 50/8.6MG TAB PO SCH (08:32)
[2018-09-01] MEDS: hydroCHLOROthiazide 25 MG TAB PO SCH (08:33)
[2018-09-01] MEDS: MEMANTINE HCL 10 MG TAB PO SCH (08:33)
[2018-09-01] MEDS: APIXABAN 5 MG TABLET PO SCH (08:33)
[2018-09-01] MEDS: ISOSORBIDE MONO EXTENDED REL 60 MG TABCR PO SCH (08:35)
[2018-09-01] MEDS: LIDOCAINE 5% 1 PATCH TD SCH (08:36)
[2018-09-01] MEDS: CITALOPRAM 20 MG TAB PO SCH (13:16)
[2018-09-01] MEDS: FLUCONAZOLE 100 MG/50 ML BAG IV SCH (13:19)
--- NOTE | 2018-09-01 18:35 | Discharge Summary ---
Date of Service September 01, 2018 Admission HPI Per Admitting Provider 78 y/o M who was brought here today after a fall early this AM. Daughter who is present is not the daughter who usually takes care of pt as she is more involved in the care of pt's who has recently been placed in a SNF. She states that her sister told her that pt fell this AM, she thinks around 530-630. Other daughter heard pt hit the floor, so pt was not down for long. They believe it was a mechanical fall, although pt has dementia and cannot relay events. He was without LOC when she came into the room. He told daughter that he felt weak prior to falling. Pt complains a pain in his R chest, but states it has been present for weeks. Daughter confirms this. Pt has no other concerns at this time. Pt denies fever, SOB, abd pain, n/v/c/d, LE pain or swelling. Daughter states that she has not heard him or her sister mention other issues at home. He is eating without issue, but does continue to lose weight. Pt with recent UTI/sepsis due to obstruction with b/l renal masses. He also had a PNA at that time. Pt had 2 stents placed and was d/c'd on 06/[address]. He has been on two abx since that time. He has had urology f/u. Daughter states there is some sort of urological procedure pending that would determine if cath could be d/c'd, but could not elaborate further. Daughter states that last week, pt's urine had a light red color. They had him drink more water and it returned to yellow. Principal Diagnosis grisel uti bacterial uti catheter associated complex uti due to indwelling stents Discharge Exam Constitutional well developed and average body habitus Eyes no conjunctival abnormality and no scleral abnormality Neck normal visual inspection and trachea midline Respiratory normal respiratory effort; no respiratory distress Auscultation: lungs clear to auscultation bilaterally Cardiovascular RRR, no murmur, no edema Gastrointestinal (Abdomen) normal bowel sounds, soft, nontender, no hepatosplenomegaly Musculoskeletal no cyanosis or clubbing, extremities motor strength 5/5 Discharge Data Allergies Allergy/AdvReac Type Severity Reaction Status Date / Time captopril Allergy Severe ANAPHYLAXIS Verified 08/26/18 08:43 Iodinated Contrast- Oral and Allergy Severe ANAPHYLAXIS Verified 08/26/18 08:43 IV Dye levofloxacin Allergy Severe ANAPHYLAXIS Verified 08/26/18 08:43 oxaprozin Allergy Severe ANAPHYLAXIS Verified 08/26/18 08:43 torsemide Allergy Severe ANAPHYLAXIS Verified 08/26/18 08:43 hydrocodone Allergy Mild RASH Verified 08/26/18 08:43 morphine Allergy Unknown Anaphylaxis Verified 08/26/18 08:43 Sulfa (Sulfonamide Allergy Unknown Anaphylaxis Verified 08/26/18 08:43 Antibiotics) Consultations 08/26/18 12:19 Consult Urology Stat ED Decision to Admit Stat 08/26/18 15:45 Consult Case Management - Discharge Planning Routine Consult Urology Routine 08/30/18 07:52 Consult Infectious Diseases Routine Ordered Studies 08/26/18 08:40 CT cervical spine wo con Stat CT head/brain wo con Stat 08/26/18 09:59 CT abd pelvis wo con Stat Hospital Course (1) Acute UTI: - Most recent urology procedure (has bilateral stents) completed on 07/06/18. This is for stent exchange with bilateral renal masses which have yet to show high-grade malignancy - UC positive for Grisel and Stenotrophomonas - Continue Fluconazole and ceftazidime with infectious disease oversight - Urology consulted, appreciate input. Follow up as outpatient. - Resumed anticoagulation therapy as pt. will not require intervention. - Continue to maintain myles catheter at home. (2) Right-sided chest pain: - right 5th rib fracture confirmed on rib films - Cardiac work up was negative. - CXR negative for other acute abnormalities. - will use tylenol for pain, po NSAIDs contraindicated due to risk of bleeding. - PPI daily for GERD symptoms (not likely related) (3) Fall: - Related to weakness in setting of acute infection. - PT/OT -- no therapy needs anticipated at discharge. (4) ARF (acute renal failure): - Creatinine 2.01 at admission -- trending down. (5) BPH w urinary obs/LUTS: - Continue home Flomax as prescribed. - Continue myles care as noted above, with urology oversight. (6) Atrial fibrillation: - Continue home Coreg, Eliquis and Aspirin. - In NSR on monitor. (7) Bilateral renal masses: - Follows with urology, recently biopsied during procedure on 07/06/18. (8) HTN (hypertension), benign: - Continue home HCTZ, Imdur, Coreg as prescribed. (9) Hyperlipidemia: - Continue home statin. (10) Hypothyroidism: - Continue Synthroid 100 mcg daily. - Most recent TSH was 1.58 in May 2018. (11) CAD (coronary artery disease), [place] coronary artery: - Continue home beta christina, aspirin, Imdur, statin, Eliquis as prescribed. - Does have right sided chest pain - see above. (12) Depression: - Continue home Celexa as prescribed. (13) Dementia: - Continue home Aricept, Namenda as prescribed. (14) Chronic pain: - Continue home meds -- Gabapentin 300 mg qhs. (15) Cardiac pacemaker in situ: - Noted, followed as outpatient. (16) Iron deficiency anemia: - Continue ferrous sulfate 325 mg BID. - Monitor H/H daily -- at baseline. - Most recent iron studies in June 2018. Total Time Total Time Spent Total Time Spent (In Minutes): greater than 30 minutes were required to prepare discharge Discharge Plan Discharge Items Patient Disposition: Home - Home Health Services Reason For Visit: FUNGAL YEAST INFECTION Discharge Diagnosis: complex urinary infection with bacteria and fungus Discharge Goals: Decrease discomfort and Diagnostic testing Activity: Resume your previous activity Non-emergency contact: Primary Care Provider and Urologist Call non-emergency contact if: you have any medication questions Follow-up/Referrals: Celina Saunders DO [Primary Care Provider] - 09/06/18 9:15 am (Please, follow up with Dr. Saunders on ThursdaySeptember 06 at 9:15 am. *If you need to change this appointment, call the office at [phone].) Diet: Regular Addtl Provider Instructions: drink plenty of fluids to assure good urine flow output complete all you prescribed antibiotics and antifungals please be sure of your urology follow up appointment you have a small rib fracture( broken rib) in the area of your pain which will reduce over time Prescriptions: New fluconazole 100 mg tablet 100 mg PO DAILY 14 Days Qty: 12 RF: 0 ceftazidime 2 gram recon soln 2 gm IV Q24H Qty: 12 RF: 0 Continued tramadol 50 mg tablet 50 - 100 mg PO DAILY PRN (Reason: Pain) Qty: 90 RF: 0 nitroglycerin [Nitromist] 400 mcg/spray Aerosol,[place] 1 spray sublingual UD PRN (Reason: Chest Pain) RF: 0 donepezil 10 mg Tablet 10 mg PO HS RF: 0 simvastatin 80 mg Tablet 80 mg PO PM RF: 0 aspirin [Aspir-81] 81 mg Tablet,Delayed Release (Dr/Ec) 81 mg PO QAM RF: 0 carvedilol [Coreg] 3.125 mg tablet 3.125 mg PO BIDM RF: 0 levothyroxine 100 mcg tablet 100 mcg PO QAM RF: 0 isosorbide mononitrate 60 mg tablet extended release 24 hr 60 mg PO QAM RF: 0 tamsulosin 0.4 mg Capsule 0.4 mg PO QDD RF: 0 gabapentin 300 mg Capsule 300 mg PO HS RF: 0 hydrochlorothiazide 25 mg tablet 12.5 mg PO QAM RF: 0 bethanechol chloride [Urecholine] 50 mg tablet 50 mg PO QID RF: 0 epinephrine [EpiPen] 0.3 mg/0.3 mL Auto-Injector 0.3 mg IM UD PRN (Reason: Allergic Reaction) RF: 0 memantine [Namenda] 10 mg tablet 10 mg PO BID RF: 0 Eliquis 2.5 mg Tablet 5 mg PO BID Qty: 60 RF: 0 cyanocobalamin (vitamin B-12) [Vitamin B-12] 1,000 mcg Tablet 1,000 mcg PO DAILY RF: 0 calcium carbonate [Calcium 600] 600 mg calcium (1,500 mg) Tablet 1,200 mg PO DAILY RF: 0 folic acid 1 mg tablet 1 mg PO DAILY RF: 0 ferrous sulfate 325 mg (65 mg iron) Tablet,Delayed Release (Dr/Ec) 325 mg PO BIDM RF: 0 No Action citalopram [Celexa] 10 mg tablet 10 mg PO DAILY Qty: 30 RF: 5 Stand-Alone Forms: [facility] Discharge Orders: Discharge Order (Routine); Ordered 09/01/18 Ordered By: Ashvin Bloom Admission Data Admit Date/Time: 08/26/18 13:19 Attending Provider: Ashvin Bloom Admit Provider: Norma Perez Primary Care Provider: Celina Saunders Other Providers: William Medrano II ; Norma Perez ; Wilberto Wu Jennifer Service: Telemetry Medical Other Interventions: Discharge Summary Assessment (RN) Last Done: 09/01/18 15:52 DC Date/Time DO NOT enter until pt leaves facility: 09/01/18 16:14
--- NOTE | 2018-09-01 18:37 | Hospitalist Progress Note ---
Date of Service September 01, 2018 Assessment & Plan (1) Acute UTI: - Most recent urology procedure (has bilateral stents) completed on 07/06/18. This is for stent exchange with bilateral renal masses which have yet to show high-grade malignancy - UC positive for Monalisa and Stenotrophomonas - Continue Fluconazole and ceftazidime with infectious disease oversight - Urology consulted, appreciate input. Follow up as outpatient. - Resumed anticoagulation therapy as pt. will not require intervention. - Continue to maintain myles catheter at home. (2) Right-sided chest pain: - right 5th rib fracture confirmed on rib films - Cardiac work up was negative. - CXR negative for other acute abnormalities. - will use tylenol for pain, po NSAIDs contraindicated due to risk of bleeding. - PPI daily for GERD symptoms (not likely related) (3) Fall: - Related to weakness in setting of acute infection. - PT/OT -- no therapy needs anticipated at discharge. (4) ARF (acute renal failure): - Creatinine 2.01 at admission -- trending down. (5) BPH w urinary obs/LUTS: - Continue home Flomax as prescribed. - Continue myles care as noted above, with urology oversight. (6) Atrial fibrillation: - Continue home Coreg, Eliquis and Aspirin. - In NSR on monitor. (7) Bilateral renal masses: - Follows with urology, recently biopsied during procedure on 07/06/18. (8) HTN (hypertension), benign: - Continue home HCTZ, Imdur, Coreg as prescribed. (9) Hyperlipidemia: - Continue home statin. (10) Hypothyroidism: - Continue Synthroid 100 mcg daily. - Most recent TSH was 1.58 in May 2018. (11) CAD (coronary artery disease), [place] coronary artery: - Continue home beta christina, aspirin, Imdur, statin, Eliquis as prescribed. - Does have right sided chest pain - see above. (12) Depression: - Continue home Celexa as prescribed. (13) Dementia: - Continue home Aricept, Namenda as prescribed. (14) Chronic pain: - Continue home meds -- Gabapentin 300 mg qhs. (15) Cardiac pacemaker in situ: - Noted, followed as outpatient. (16) Iron deficiency anemia: - Continue ferrous sulfate 325 mg BID. - Monitor H/H daily -- at baseline. - Most recent iron studies in June 2018. Subjective Patient is fatigued he is says he is very tired during the day he was having some issues with sleeping at night. He has not been ambulating significantly in his room. I conveyed the fact that we have his urine culture showing stenotrophomonas and we will arrange IV antibiotics for home use. Patient feels he is too fatigued to go home on 723 and was looking for 724 hours time to go home Review of Systems Review of Systems: ROS: well nourished well developed. Appears fatigued and tired No double vision blurry vision No problems with speech or swallowing No palpitations, chest pain or pressure No Wheezing or breathing issues No abdominal pain nausea vomiting diarrhea changes in appetite or weight No burning urine urine frequency or changes in color No focal joint pain or muscle pain No skin rashes or oral lesions No unusual bruising or bleeding No focused back pain or numbness or loss of strength No changes in memory or confusion Physical Exam Physical Exam: The patient appeared well nourished and normally developed. Vital signs as documented. Head exam is unremarkable. normocephalic, atraumatic Neck is without jugular venous distension, thyromegaly, or lymphademopathy Lungs are clear to auscultation and percussion. Cardiac exam reveals Rhythm is regular. First and second heart sounds normal. Abdominal exam reveals normal bowel sounds, no masses, no organomegaly Extremities are nonedematous and both pedal pulses are present Neurologic exam is A&Ox3, no focal deficits, strength is equal bilateral Psychologically seems neither anxious or depressed Skin is warm Dry Results & Data Vital Signs (Past 12 Hours) Vital Signs Temp Pulse Pulse Resp BP BP Pulse Ox 09/01/18 15:52 36.5 C 65 52 L 20 136/71 118/73 09/01/18 15:36 36.5 C 65 52 L 20 136/71 118/73 09/01/18 15:02 36.5 C 52 L 20 118/73 09/01/18 13:40 36.4 C L 65 20 136/71 09/01/18 12:25 36.4 C L 53 L 20 136/71 95 09/01/18 10:20 52 L 127/70 09/01/18 08:00 60 09/01/18 07:34 36.6 C 51 L 18 187/96 H 171/92 H 93 PG Care Time/CCT Total # of Minutes Spent Total Time Spent with Patient: Total time spent is greater than 50% in coordination of care (as documented) at patient's floor/unit and/or counseling patient: (1) Fall Encounter type: initial encounter Qualified Code(s): W19.XXXA - Unspecified fall, initial encounter (2) Atrial fibrillation Atrial fibrillation type: permanent Qualified Code(s): I48.2 - Chronic atrial fibrillation (3) Hypothyroidism Hypothyroidism type: acquired Qualified Code(s): E03.9 - Hypothyroidism, unspecified (4) CAD (coronary artery disease), [place] coronary artery [place] vs. transplanted heart: [place] heart Associated angina: without angina Qualified Code(s): I25.10 - Atherosclerotic heart disease of [place] coronary artery without angina pectoris
[2018-09-02] MEDS ORDERED: methylPREDNISolone 4 MG TAB PO SCH (07:00)
[2018-09-03] MEDS ORDERED: methylPREDNISolone 4 MG TAB PO SCH (07:00)
== END 2018-09-01 16:14 | disposition home health service (06) | DRG 699 ==
LOC: ED 08:24 → SUATTDRO 13:19 → 2N 13:19
DX: Z88.5 Allergy status to narcotic agent; Z88.8 Allergy status to other drugs, medicaments and biological substances; N17.9 Acute kidney failure, unspecified; T83.592A Infection and inflammatory reaction due to indwelling ureteral stent, initial encounter; Z88.2 Allergy status to sulfonamides; E78.5 Hyperlipidemia, unspecified; D50.9 Iron deficiency anemia, unspecified; I10 Essential (primary) hypertension; N40.1 Benign prostatic hyperplasia with lower urinary tract symptoms; I25.2 Old myocardial infarction; B37.49 Other urogenital candidiasis; Y92.019 Unspecified place in single-family (private) house as the place of occurrence of the external cause; I25.10 Atherosclerotic heart disease of native coronary artery without angina pectoris; Z98.1 Arthrodesis status; Z83.3 Family history of diabetes mellitus; I48.91 Unspecified atrial fibrillation; Y83.1 Surgical operation with implant of artificial internal device as the cause of abnormal reaction of the patient, or of later complication, without mention of misadventure at the time of the procedure; Z88.1 Allergy status to other antibiotic agents; Z95.0 Presence of cardiac pacemaker; Z96.653 Presence of artificial knee joint, bilateral; E03.9 Hypothyroidism, unspecified

== ENCOUNTER 2019-08-08 13:13 | Inpatient (IN) ==
--- NOTE | 2019-08-08 15:14 | Emergency Department Note ---
Impression & Plan Pneumonia, Hematuria, Weakness ED Provider Note NAME: HAYES KING AGE: 79 SEX: M : 1940 ARRIVES VIA: Walk-In INFORMANT: Patient, ED PROVIDER(S): Yaron Umana DO CHIEF COMPLAINT: Fever HPI: The patient is an 79-year-old male who presented to the emergency department with his daughter for an evaluation of fever and altered mental status. The patient presented with his daughter after concerns for infection. The patient's daughter states that the patient had a procedure this morning to have ureteral stents changed. After he went home he was doing fine. He had a Michel catheter placed which was noted to have gross hematuria. The patient does have a history of oral anticoagulation use for irregular heartbeat. The patient came to the emergency department for further evaluation. He was noted to be very lethargic and slow to respond to questioning by the family members as well as nursing staff. There is been no reported nausea or vomiting. There is no reported chest pain. The patient does complain of lower extremity pain as well as back pain but this is not new for him. According to his daughter he does have these complaints often. There is been no falls. There is been no head injuries. The patient has been compliant with all his medications. He was not given an antibiotic after the procedure according to his daughter. ROS: See above HPI for pertinent positives & negatives. A total of 10 systems reviewed and were otherwise negative. PAST MEDICAL HISTORY: See Below PAST SURGICAL HISTORY: See Below FAMILY HISTORY: See Below SOCIAL HISTORY: See Below HOME MEDICATIONS: See Below ALLERGIES: See Below VITALS: See Below PHYSICAL EXAMINATION: GENERAL: The patient is awake but slow to answer questions. He answers appropriately and follows commands appropriately as well. EYES: The conjunctivae are clear. The pupils are round and reactive. EARS, NOSE, MOUTH AND THROAT: The nose is without any evidence of any deformity. Mucous membranes are dry. NECK: The neck is nontender and supple. RESPIRATORY: Shallow respirations were noted. There were rales at both bases. CARDIOVASCULAR: Tachycardic rate with regular rhythm was noted. There was a systolic murmur suggested. GASTROINTESTINAL: Abdomen is moderately distended and diffusely tender. There is no specific guarding rigidity. Michel was noted with gross hematuria. MUSCULOSKELETAL/EXTREMITIES: There is no evidence of gross deformity full range of motion is noted in the hips and shoulders. SKIN: Pedal edema was noted bilaterally. Skin was warm and dry. NEUROLOGIC: Patient is awake and oriented to person place but not time or situation. Strength is symmetric but diminished. MEDICAL DECISION MAKING: The patient is an 79-year-old male who presented to the emergency department for an evaluation of fever. The patient recently had bilateral ureteral stent c hanges this morning. When he went home his daughter felt that he was having difficulty breathing. He was felt to have a fever. He also has hematuria in his Michel catheter. He does take Eliquis for atrial fibrillation. The patient was treated with IV antibiotics in the emergency department. He was reevaluated multiple times. I discussed the patient's laboratory and radiographic studies with him and his family member. I also discussed his case with the on-call [facility]. They have agreed to evaluate the patient in the emergency department for further management and disposition. The patient's CAT scan of the abdomen and pelvis did show some signs of possible pyelonephritis. Given his recent ureteral stenting it is possible that this is a post procedure infection. He was started on an antibiotic that would also cover a urinary source as well as a pulmonary source. Triage Nursing notes reviewed. Prior medical records reviewed Vital Signs: reviewed and remarkable for no significant abnormalities Differential diagnosis: Infection, hypoglycemia, electrolyte abnormalities, overdose, toxicologic, cardiac sources, intracerebral event, neurologic, trauma, as well as other pathologies. ER treatment provided: See below Diagnostics interpreted by me: ECG: EKG was obtained in the emergency department. My interpretation is atrial fibrillation at 88 bpm. There were no PVCs. There is no acute ST segment abnormalities noted. This was compared to a tracing from August 282018. No specific changes were noted. Cardiac Monitoring: An order was placed for continuous cardiac monitoring. The monitor shows a rate of 99 with atrial fibrillation rhythm. Laboratory studies: As stated above and show below. Imaging studies: See below Consultation(s): 1649: I discussed this case with Dr. Bloom. He was on-call for the [facility]ist group. He is agreed to evaluate the patient in the emergency department for further management and disposition. 1704: I discussed this case with Dr. Medrano who was the patient's primary urologist. At this time the findings on CT the abdomen and pelvis are felt to be related to the postoperative state but if further consultation is needed they would gladly follow along with the patient while he was in the hospital. Past Med/Surg History Medical History Anxiety and depression Aortic stenosis Mild (MG 11 mmHg, UZMA 1.1 cm2) per 11/2015 ECHO Atrial fibrillation on Eliquis-F/U PCP BPH w urinary obs/LUTS CAD (coronary artery disease), [place] coronary artery S/P BMS to OM (1997). Caths also 2006, 2008 and 2013, no stents placed. Most recent cath in 2013 showed no angiographically significant stenosis other than 20-30% in-stent restenosis of OM. Cardiac pacemaker in situ Implanted 2008 (03/[address] [facility]. Last pacer check 07/2019 [facility] Chronic indwelling Michel catheter Chronic pain Dementia Dyslipidemia GERD (gastroesophageal reflux disease) controlled History of kidney stones History of MD (myocardial infarction) 1997 HTN (hypertension), benign Hx of gastric ulcer Hypothyroidism Iron deficiency anemia Sleep apnea NO DEVICE Surgical History H/O total knee replacement RIGHT/LEFT History of cardiac cath MULTIPLE WITH TOTAL 4 STENTS-LAST ONE 2 YRS AGO [facility] History of cataract surgery B/L History of lithotripsy History of lumbar fusion History of prostate surgery PARTIAL PROSTECTOMY History of thyroidectomy S/P placement of cardiac pacemaker 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 2016-PACER CHECK [facility] S/P TURP S/P ureteral stent placement Cysto, B/L RPG, right ureteroscopy, stent exchange: 07/06/18: LMA#5 at [facility] CYSTO STENT EXCHANGE 11/2018 Family History Father Diabetes Mother Coronary heart disease Hypertension Brother Seizure Social History Preferred Language: Tuvaluan Communication Ability: DEMENTIA Leasing Director Required: No Beliefs That Will Affect Care: None marital status: Current Living Situation: Spouse and Family Current Living Situation Comment: [employer]/2 DAUGHTERS LIVE IN/[employer] Feels Safe at Home: Yes Smoking Status: Never smoker Tobacco Type: cigarettes, cigars and smokeless tobacco ; Second Hand Exposure: No ; Hx Alcohol Use: No Hx Substance Use: No Seatbelt Use: always Allergies Allergies Allergy/AdvReac Type Severity Reaction Status Date / Time captopril Allergy Severe ANAPHYLAXIS Verified 08/08/19 15:05 Iodinated Contrast Media Allergy Severe ANAPHYLAXIS Verified 08/08/19 15:05 levofloxacin Allergy Severe ANAPHYLAXIS Verified 08/08/19 15:05 morphine Allergy Severe Anaphylaxis Verified 08/08/19 15:05 oxaprozin Allergy Severe ANAPHYLAXIS Verified 08/08/19 15:05 Sulfa (Sulfonamide Allergy Severe Anaphylaxis Verified 08/08/19 15:05 Antibiotics) torsemide Allergy Severe ANAPHYLAXIS Verified 08/08/19 15:05 hydrocodone Allergy Mild RASH Verified 08/08/19 15:05 Home Meds Home Medications Medication Instructions Recorded Confirmed aspirin [Aspir-81] 81 mg PO QAM 06/05/18 08/08/19 epinephrine [EpiPen] 0.3 mg IM UD PRN 06/05/18 08/08/19 nitroglycerin [Nitromist] 1 spray SUBLINGUAL UD PRN 06/05/18 08/08/19 carvedilol 3.125 mg PO BID 02/17/19 08/08/19 isosorbide mononitrate 60 mg PO QAM 08/02/19 08/08/19 Previous Rx's Medication Instructions Recorded ferrous sulfate 325 mg (65 mg 325 mg PO BIDM #60 tab 12/31/18 iron) tablet,delayed release citalopram 10 mg tablet 10 mg PO QDL #30 tab 03/21/19 memantine 10 mg tablet 10 mg PO BID 90 Days #180 tab 06/20/19 donepezil 10 mg tablet 10 mg PO HS #90 tab 06/23/19 folic acid 1 mg tablet 1 mg PO QAM #90 tab 06/23/19 gabapentin 300 mg capsule 300 mg PO HS #90 cap 06/23/19 hydrochlorothiazide 25 mg tablet 12.5 mg PO QAM #45 tab 06/23/19 levothyroxine 100 mcg tablet 100 mcg PO HS #90 tab 06/23/19 simvastatin 80 mg tablet 80 mg PO HS #90 tab 06/23/19 tamsulosin 0.4 mg capsule 0.4 mg PO QPM #90 cap 06/23/19 tramadol 50 mg tablet See Rx Instructions .ROUTE 06/23/19 .COMPLEX #60 tab apixaban 5 mg tablet 5 mg PO BID #180 tab 07/20/19 bethanechol chloride 50 mg tablet 50 mg PO QID #90 tab 07/21/19 potassium chloride 10 mEq 10 meq PO DAILY 30 Days #30 cap 08/04/19 capsule,extended release Results & Data (ED) Vital Signs Vital Signs - 24 hr 08/08/19 13:17 08/08/19 14:39 08/08/19 14:59 Temperature 36.9 C Temperature Source Oral Pulse Rate 96 H 89 89 Pulse Rate [Apical] Pulse Rate from SpO2 Sensor 85 89 Respiratory Rate 24 27 H 25 H Respiratory Effort / Characteristics Spontaneous Short of Breath Respiratory Depth Normal Respiratory Pattern Regular Blood Pressure 167/88 H 170/100 H Blood Pressure [Left Arm] Blood Pressure Mean 114 118 Blood Pressure Mean [Left Arm] Pulse Oximetry 94 92 94 Oxygen Delivery Method Room Air Sepsis Recent Fever Within 48 Hours No Sepsis Action Taken by Nursing No Action Required 08/08/19 15:00 08/08/19 15:08 08/08/19 15:30 Temperature Temperature Source Pulse Rate 88 83 Pulse Rate [Apical] 86 Pulse Rate from SpO2 Sensor 86 Respiratory Rate 25 H 18 24 Respiratory Effort / Characteristics Respiratory Depth Respiratory Pattern Blood Pressure Blood Pressure [Left Arm] 170/100 H Blood Pressure Mean Blood Pressure Mean [Left Arm] 123 Pulse Oximetry 94 92 Oxygen Delivery Method Room Air Sepsis Recent Fever Within 48 Hours Sepsis Action Taken by Nursing 08/08/19 16:13 08/08/19 16:30 08/08/19 16:35 Temperature Temperature Source Pulse Rate 88 81 85 Pulse Rate [Apical] Pulse Rate from SpO2 Sensor 86 Respiratory Rate 29 H 28 H Respiratory Effort / Characteristics Respiratory Depth Respiratory Pattern Blood Pressure 133/72 Blood Pressure [Left Arm] Blood Pressure Mean 90 Blood Pressure Mean [Left Arm] Pulse Oximetry 94 Oxygen Delivery Method Room Air Sepsis Recent Fever Within 48 Hours Sepsis Action Taken by Nursing Laboratory Data Attestation: I reviewed the patient's lab results. Result diagrams: 08/08/19 14:45 08/08/19 14:45 Lab Results 08/08/19 08/08/19 08/08/19 Range/Units 14:45 14:45 14:45 WBC 13.93 H (4.8-10.8) K/uL RBC 4.26 L (4.7-6.1) M/uL Hgb 12.2 L (14.0-18.0) g/dL Hct 37.1 L (42-52) % MCV 87.1 (80-100) fL MCH 28.6 (25-34) pg MCHC 32.9 (32-36) g/dL RDW Std Deviation 50.8 H (36.4-46.3) fL RDW Coeff of Curtis 15.8 H (11.5-14.5) % Plt Count 232 (130-400) K/uL MPV 10.2 (7.4-10.4) fL Immature Gran % (Auto) 0.1 % Neut % (Auto) 86.6 % Lymph % (Auto) 4.6 % Bee % (Auto) 8.2 % Eos % (Auto) 0.4 % Baso % (Auto) 0.1 % Neut # (Auto) 12.07 H (1.4-6.5) K/uL Lymph # (Auto) 0.64 L (1.2-3.4) K/uL Bee # (Auto) 1.14 H (0.11-0.59) K/uL Eos # (Auto) 0.05 (0-0.5) K/uL Baso # (Auto) 0.01 (0-0.2) K/uL Immature Gran # (Auto) 0.02 (0.00-0.02) K/uL PT (9.0-12.0) Seconds INR (0.9-1.1) APTT (21.0-31.0) Seconds PTT Ratio Sodium 137 (136-145) mmol/L Potassium 3.7 (3.5-5.1) mmol/L Chloride 101 (98-107) mmol/L Carbon Dioxide 31 (21-32) mmol/L Anion Gap 5.0 (3-11) BUN 24 H (7-18) mg/dl Creatinine 1.70 H (0.6-1.4) mg/dl Est Cr Clr Drug Dosing 33.1 ml/min Est GFR ( Amer) 43.2 Est GFR (Non-Af Amer) 37.3 BUN/Creatinine Ratio 14.3 (10-20) Glucose 99 (70-99) mg/dl Lactate (0.4-2.0) mmol/L Calcium 8.9 (8.5-10.1) mg/dl Magnesium 2.2 (1.8-2.4) mg/dl Total Bilirubin 0.6 (0.2-1) mg/dl AST 10 L (15-37) U/L ALT 14 (12-78) U/L Alkaline Phosphatase 103 (45-117) U/L Troponin I 0.016 (0-0.045) ng/ml NT-Pro-B Natriuret Pep 2423 H (0-1800) pg/ml Total Protein 8.1 (6.4-8.2) gm/dl Albumin 3.2 L (3.4-5.0) gm/dl Globulin 4.9 H (2.5-4.0) gm/dl Albumin/Globulin Ratio 0.7 L (0.9-2) Procalcitonin 0.08 (0-0.5) ng/ml 08/08/19 08/08/19 Range/Units 14:45 15:26 WBC (4.8-10.8) K/uL RBC (4.7-6.1) M/uL Hgb (14.0-18.0) g/dL Hct (42-52) % MCV (80-100) fL MCH (25-34) pg MCHC (32-36) g/dL RDW Std Deviation (36.4-46.3) fL RDW Coeff of Curtis (11.5-14.5) % Plt Count (130-400) K/uL MPV (7.4-10.4) fL Immature Gran % (Auto) % Neut % (Auto) % Lymph % (Auto) % Bee % (Auto) % Eos % (Auto) % Baso % (Auto) % Neut # (Auto) (1.4-6.5) K/uL Lymph # (Auto) (1.2-3.4) K/uL Bee # (Auto) (0.11-0.59) K/uL Eos # (Auto) (0-0.5) K/uL Baso # (Auto) (0-0.2) K/uL Immature Gran # (Auto) (0.00-0.02) K/uL PT 11.4 (9.0-12.0) Seconds INR 1.1 (0.9-1.1) APTT 27.3 (21.0-31.0) Seconds PTT Ratio 1.0 Sodium (136-145) mmol/L Potassium (3.5-5.1) mmol/L Chloride (98-107) mmol/L Carbon Dioxide (21-32) mmol/L Anion Gap (3-11) BUN (7-18) mg/dl Creatinine (0.6-1.4) mg/dl Est Cr Clr Drug Dosing ml/min Est GFR ( Amer) Est GFR (Non-Af Amer) BUN/Creatinine Ratio (10-20) Glucose (70-99) mg/dl Lactate 1.3 (0.4-2.0) mmol/L Calcium (8.5-10.1) mg/dl Magnesium (1.8-2.4) mg/dl Total Bilirubin (0.2-1) mg/dl AST (15-37) U/L ALT (12-78) U/L Alkaline Phosphatase (45-117) U/L Troponin I (0-0.045) ng/ml NT-Pro-B Natriuret Pep (0-1800) pg/ml Total Protein (6.4-8.2) gm/dl Albumin (3.4-5.0) gm/dl Globulin (2.5-4.0) gm/dl Albumin/Globulin Ratio (0.9-2) Procalcitonin (0-0.5) ng/ml Administered Medications Discontinued Medications Piperacillin Sod/Tazobactam Sod (Zosyn) 4.5 gm in 120 mls @ 240 mls/hr IV NOW ONE Stop: 08/08/19 16:50 Last Admin: 08/08/19 16:35 Dose: 240 mls/hr Documented by: [id number] Imaging Data Radiologist's Impression: SINGLE VIEW CHEST CLINICAL HISTORY: Sepsis. FINDINGS: An AP, portable, upright chest radiograph is compared to study dated 08/28/2018. The examination is degraded by portable technique and patient rotation. A 2-lead cardiac pacemaker is unchanged in position. The heart is enlarged noting atherosclerotic calcification of the thoracic and. There is pulmonary vascular congestion. Airspace opacities are present at the left lung base. No large pleural effusion or pneumothorax is seen. The skeletal structures are osteopenic. The bony thorax is grossly intact. IMPRESSION: 1. Cardiomegaly and cardiac pacemaker with evidence of congestive failure. 2. Airspace opacities are present at the left lung base. This could represent atelectasis and/or an infectious/inflammatory pneumonitis. Clinical correlation will be required. ACT 112: Negative or not required by law. Electronically signed by: Santy Acuña M.D. 08/08/2019 3:19 PM Dictated: 08/08/19 1517 Transcribed: 08/08/[address] head/brain wo con CT DOSE: 1765.59 mGycm HISTORY: Mental status change altered TECHNIQUE: Multiaxial CT images of the head were performed without the use of intravenous contrast. A dose lowering technique was utilized adhering to the principles of ALARA. Comparison: 08/26/2018 Findings: The paranasal sinuses and mastoid air cells are clear. Moderate cerebral as well as cerebellar atrophy. Moderate chronic small vessel change. No evidence for acute intracranial hemorrhage. No significant midline shift. Impression: Chronic and age-related change. No acute process. ACT 112: Negative or not required by law. The above report was generated using voice recognition software. It may contain grammatical, syntax or spelling errors. Electronically signed by: Trip Ramirez M.D. 08/08/2019 4:17 PM Dictated: 08/08/19 1617 Transcribed: 08/08/[address] abd pelvis wo con CT DOSE: 1255.39 mGycm HISTORY: Pain recent suregery TECHNIQUE: Multiaxial CT images of the abdomen and pelvis were performed without contrast. A dose lowering technique was utilized adhering to the principles of ALARA. COMPARISON STUDY: 08/26/2018 FINDINGS: Bilateral ureteral stents are present. Prior cholecystectomy. Liver spleen and pancreas are grossly unremarkable. Significant perinephric infiltrative change of the right kidney compared to the prior study. Possibility of underlying pyelonephritis is considered. Left renal interpolar cyst as well as a medial exophytic cyst unchanged. Air within the left renal collecting system possibly secondary to the stent position. No definite evidence for left renal hydronephrosis. Hyperdense left renal cortical density not present on the prior study. Poss ibility of a small component of hemorrhage is considered. The bowel pattern overall is nonobstructive. Bilateral ureteral stents extend to the bladder. There is a mild fecal impaction. There are by lateral penile pumps in position. Bowel pattern again is nonobstructive. IMPRESSION: 1. Somewhat difficult study to interpret in the absence of interval studies for history of what appears to be surgical intervention. 2. Bilateral ureteral stents appearing to be in acceptable position. 3. Infiltrative changes of the right renal perinephric Fat raising the possibility of pyelonephritis. 3. Hyperdense cortex of a short segment of the peripheral midpole left kidney raising the possibility of a hemorrhagic cyst. This measures no more than 2 cm. There are L5. Unchanged left renal cystic changes. 5. Nonobstructive bowel pattern. 6. Mild rectal fecal impaction. 7. Nonobstructive bowel pattern. ACT 112: Negative or not required by law. The above report was generated using voice recognition software. It may contain grammatical, syntax or spelling errors. Electronically signed by: Trip Ramirez M.D. 08/08/2019 4:42 PM Dictated: 08/08/19 163 Transcribed: 08/08/19 163 Blood Pressure Blood Pressure Findings: Normal blood pressure Discharge Plan Visit Data Chief Complaint: Shortness of Breath/Dyspnea Stated Complaint: STENT SURGERY - SOB,CHILLS,FEVER,PAIN ED Provider: Yaron Umana Discharge Problem: Pneumonia, Hematuria, Weakness Patient Disposition: Being Evaluated by Hospitalist Condition: Good Forms Stand Alone Forms: [facility] Prescriptions Prescriptions: No Action ferrous sulfate 325 mg (65 mg iron) tablet,delayed release (DR/EC) 325 mg PO BIDM Qty: 60 RF: 11 citalopram 10 mg tablet 10 mg PO QDL Qty: 30 RF: 5 memantine [Namenda] 10 mg tablet 10 mg PO BID 90 Days Qty: 180 RF: 0 donepezil 10 mg tablet 10 mg PO HS Qty: 90 RF: 1 folic acid 1 mg tablet 1 mg PO QAM Qty: 90 RF: 1 hydrochlorothiazide 25 mg tablet 12.5 mg PO QAM Qty: 45 RF: 1 levothyroxine 100 mcg tablet 100 mcg PO HS Qty: 90 RF: 1 simvastatin 80 mg tablet 80 mg PO HS Qty: 90 RF: 1 tramadol 50 mg tablet See Rx Instructions .ROUTE .COMPLEX Qty: 60 RF: 1 gabapentin 300 mg capsule 300 mg PO HS Qty: 90 RF: 2 tamsulosin 0.4 mg capsule 0.4 mg PO QPM Qty: 90 RF: 1 apixaban 5 mg tablet 5 mg PO BID Qty: 180 RF: 5 bethanechol chloride [Urecholine] 50 mg tablet 50 mg PO QID Qty: 90 RF: 0 potassium chloride 10 mEq capsule, extended release 10 meq PO DAILY 30 Days Qty: 30 RF: 0 nitroglycerin [Nitromist] 400 mcg/spray Aerosol,[place] 1 spray sublingual UD PRN (Reason: Chest Pain) RF: 0 aspirin [Aspir-81] 81 mg Tablet,Delayed Release (Dr/Ec) 81 mg PO QAM RF: 0 epinephrine [EpiPen] 0.3 mg/0.3 mL Auto-Injector 0.3 mg IM UD PRN (Reason: Allergic Reaction) RF: 0 isosorbide mononitrate 60 mg tablet extended release 24 hr 60 mg PO QAM RF: 0 carvedilol 3.125 mg tablet 3.125 mg PO BID RF: 0 Referrals Referrals: Celina Saunders DO [Primary Care Provider] - Discharge Problem: Pneumonia Qualifiers: Pneumonia type: due to unspecified organism Laterality: left Lung location: lower lobe of lung Qualified Code(s): J18.9 - Pneumonia, unspecified organism Hematuria Qualifiers: Hematuria type: gross Qualified Code(s): R31.0 - Gross hematuria
[2019-08-08 15:15] LABS: Basophils # (auto) 0.01 K/uL (0-0.2); Basophils % (auto) 0.1 %; Eosinophils # (auto) 0.05 K/uL (0-0.5); Eosinophils % (auto) 0.4 %; Hematocrit (blood only) 37.1 % (42-52); Hemoglobin 12.2 g/dL (14.0-18.0); Immature Granulocytes # (auto) 0.02 K/uL (0.00-0.02); Immature Granulocytes % (auto) 0.1 %; Lymphocytes # (auto) 0.64 K/uL (1.2-3.4); Lymphocytes % (auto) 4.6 %; Mean Corpuscular Hemoglobin 28.6 pg (25-34); Mean Corpuscular Hgb Conc 32.9 g/dL (32-36); Mean Corpuscular Volume 87.1 fL (80-100); Mean Platelet Volume 10.2 fL (7.4-10.4); Monocytes # (auto) 1.14 K/uL (0.11-0.59); Monocytes % (auto) 8.2 %; Neutrophils # (auto) 12.07 K/uL (1.4-6.5); Neutrophils % (auto) 86.6 %; Platelet Count 232 K/uL (130-400); RDW Coefficient of Variation 15.8 % (11.5-14.5); RDW Standard Deviation 50.8 fL (36.4-46.3); Red Blood Count 4.26 M/uL (4.7-6.1); White Blood Count 13.93 K/uL (4.8-10.8)
--- NOTE | 2019-08-08 15:20 | XRay Report ---
SINGLE VIEW CHEST CLINICAL HISTORY: Sepsis. FINDINGS: An AP, portable, upright chest radiograph is compared to study dated 08/28/2018. The examina tion is degraded by portable technique and patient rotation. A 2-lead cardiac pacemaker is unchanged in position. The heart is enlarged noting atherosclerotic calcification of the thoracic and. There is pulmonary vascular congestion. Airspace opacities are present at the left lung base. No large pleura l effusion or pneumothorax is seen. The skeletal structures are osteopenic. The bony thorax is grossl y intact. IMPRESSION: 1. Cardiomegaly and cardiac pacemaker with evidence of congestive failure. 2. Airspace opacities are present at the left lung base. This could represent atelectasis and/or an i nfectious/inflammatory pneumonitis. Clinical correlation will be required. ACT 112: Negative or not required by law. Electronically signed by: Santy Acuña M.D. 08/08/2019 3:19 PM
[2019-08-08 15:22] LABS: Albumin Level 3.2 gm/dl (3.4-5.0); BUN Creatinine Ratio 14.3 (10-20); Calcium 8.9 mg/dl (8.5-10.1); Creatinine Clr Calc Pharmacy 33.1 ml/min; Est GFR (African American) 43.2; Est GFR (Non-African American) 37.3; Magnesium 2.2 mg/dl (1.8-2.4); Potassium 3.7 mmol/L (3.5-5.1)
[2019-08-08 15:27] LABS: Albumin Globulin Ratio 0.7 (0.9-2); Bilirubin,Total 0.6 mg/dl (0.2-1); Globulin 4.9 gm/dl (2.5-4.0); Total Protein 8.1 gm/dl (6.4-8.2); Troponin I 0.016 ng/ml (0-0.045)
[2019-08-08 15:28] LABS: INR 1.1 (0.9-1.1); Partial Thromboplastin Time 27.3 Seconds (21.0-31.0); Prothrombin Time 11.4 Seconds (9.0-12.0)
--- NOTE | 2019-08-08 16:16 | Electrocardiogram Report ---
Test Reason : Blood Pressure : / mmHG Vent. Rate : 088 BPM Atrial Rate : 088 BPM P-R Int : 170 ms QRS Dur : 086 ms QT Int : 364 ms P-R-T Axes : 000 -38 041 degrees QTc Int : 440 ms Poor data quality, interpretation may be adversely affected Normal sinus rhythm Left axis deviation Abnormal ECG When compared with ECG of 28-AUG-2018 23:49, Nonspecific T wave abnormality no longer present Confirmed by Marv López ([id number]) on 08/08/2019 4:15:38 PM Referred By: Confirmed By:Marv López
--- NOTE | 2019-08-08 16:19 | CT Scan Report ---
CT head/brain wo con CT DOSE: 1765.59 mGycm HISTORY: Mental status change altered TECHNIQUE: Multiaxial CT images of the head were performed without the use of intravenous contrast. A dose lowering technique was utilized adhering to the principles of ALARA. Comparison: 08/26/2018 Findings: The paranasal sinuses and mastoid air cells are clear. Moderate cerebral as well as cerebel lar atrophy. Moderate chronic small vessel change. No evidence for acute intracranial hemorrhage. No significant midline shift. Impression: Chronic and age-related change. No acute process. ACT 112: Negative or not required by law. The above report was generated using voice recognition software. It may contain grammatical, syntax or spelling errors. Electronically signed by: Trip Ramirez M.D. 08/08/2019 4:17 PM
[2019-08-08] MEDS ORDERED: PIPERACILL/TAZOBAC CONSULT ACTIVE PRN ×2 (16:21→18:38)
[2019-08-08] MEDS ORDERED: PIPERACILLIN/TAZOBACTAM 4.5 GM/120 ML BAG IV ONE (16:21)
--- NOTE | 2019-08-08 16:44 | CT Scan Report ---
CT abd pelvis wo con CT DOSE: 1255.39 mGycm HISTORY: Pain recent suregery TECHNIQUE: Multiaxial CT images of the abdomen and pelvis were performed without contrast. A dose lo wering technique was utilized adhering to the principles of ALARA. COMPARISON STUDY: 08/26/2018 FINDINGS: Bilateral ureteral stents are present. Prior cholecystectomy. Liver spleen and pancreas are grossly unremarkable. Significant perinephric infiltrative change of the right kidney compared to the prior study. Possibil ity of underlying pyelonephritis is considered. Left renal interpolar cyst as well as a medial exophytic cyst unchanged. Air within the left renal co llecting system possibly secondary to the stent position. No definite evidence for left renal hydronephrosis. Hyperdense left renal cortical density not present on the prior study. Possibility of a small compone nt of hemorrhage is considered. The bowel pattern overall is nonobstructive. Bilateral ureteral stents extend to the bladder. There is a mild fecal impaction. There are by latera l penile pumps in position. Bowel pattern again is nonobstructive. IMPRESSION: 1. Somewhat difficult study to interpret in the absence of interval studies for history of what appea rs to be surgical intervention. 2. Bilateral ureteral stents appearing to be in acceptable position. 3. Infiltrative changes of the right renal perinephric Fat raising the possibility of pyelonephritis. 3. Hyperdense cortex of a short segment of the peripheral midpole left kidney raising the possibility of a hemorrhagic cyst. This measures no more than 2 cm. There are L5. Unchanged left renal cystic changes. 5. Nonobstructive bowel pattern. 6. Mild rectal fecal impaction. 7. Nonobstructive bowel pattern. ACT 112: Negative or not required by law. The above report was generated using voice recognition software. It may contain grammatical, syntax or spelling errors. Electronically signed by: Trip Ramirez M.D. 08/08/2019 4:42 PM
--- NOTE | 2019-08-08 17:18 | History & Physical Report ---
Date of Service August 08, 2019 Assessment & Plan (1) Hydronephrosis: (2) BPH w urinary obs/LUTS: (3) Bilateral renal masses: - Admit to med surg with tele - Consult urology - Dr. Medrano - CT of the abdomen pelvis reviewed, right renal perinephric Fat raising the possibility of pyelonephritis. - CT chest reviewed - airspace opacities Left lung base, infectious/inflammatory pneumonitis. - Will start zosyn IV to cover both sources - Febrile with increased confusion concerning for transient bacteremia from recent ureteral stent exchange. - WBC of 14K - Tmax 100.4, no other fever since here in the ER - Chronically indwelling myles draining dark red bloody urine with some clot (4) Atrial fibrillation: - Cont eliquis (5) History of OK (myocardial infarction): - Hx of such -Continue carvedilol 3.125 mg twice daily, HCTZ 12.5 mg daily, Imdur 60 mg daily, simvastatin 80 mg hs (6) Dyslipidemia: On statin as above (7) HTN (hypertension), benign: -Continue antihypertensive meds (8) CAD (coronary artery disease), [place] coronary artery: -BMS to OM (1997). Caths also 2006, 2008 and 2013, no stents placed. Most recent cath in 2013 showed no angiographically significant stenosis other than 20-30% in-stent restenosis of OM. (9) Anxiety and depression: -Continue gabapentin - continue Namenda 10 mg twice daily (10) Iron deficiency anemia: -Continue iron supplementation, folic acid (11) Cardiac pacemaker in situ: - implanted 2008 (03/[address] [facility]. Last pacer check 07/2019 [facility] (12) DVT prophylaxis: - teds, continue Eliquis CODE: DNR/DNI Dispo: From home, likely to remain in the hospital x 1-2 days History of Present Illness Primary Care Provider: Celina Saunders, This is a 79-year-old male with past medical history of CAD, HTN, HLD, history of [place], A. fib on Eliquis, iron deficiency anemia, cardiac pacemaker, bilateral renal masses, hydronephrosis, chronic indwelling catheter for emptying issues, hypothyroidism who underwent bilateral ureteral stent exchange earlier today 08/[address] Medrano. Patient had a temperature at home of 100.4, felt weak, not quite himself, and had difficulty with small amounts of walking and became more confused. He denies that he was acutely short of breath, no cough. No known COVID19 contacts or recent travel/exposure. His daughter notes that his confusion is acute and that he typically is fully alert and oriented x3. He lives at home with his independently. Does not require any assistive devices for ambulation. He took all his morning medications today. He follows commands during my visit, but says things like "I love you" and "You're a very kind woman" at beside. Allergies Allergy/AdvReac Type Severity Reaction Status Date / Time captopril Allergy Severe ANAPHYLAXIS Verified 08/08/19 15:05 Iodinated Contrast Media Allergy Severe ANAPHYLAXIS Verified 08/08/19 15:05 levofloxacin Allergy Severe ANAPHYLAXIS Verified 08/08/19 15:05 morphine Allergy Severe Anaphylaxis Verified 08/08/19 15:05 oxaprozin Allergy Severe ANAPHYLAXIS Verified 08/08/19 15:05 Sulfa (Sulfonamide Allergy Severe Anaphylaxis Verified 08/08/19 15:05 Antibiotics) torsemide Allergy Severe ANAPHYLAXIS Verified 08/08/19 15:05 hydrocodone Allergy Mild RASH Verified 08/08/19 15:05 Home Medications Home Medications Medication Instructions Recorded Confirmed Type aspirin [Aspir-81] 81 mg PO QAM 06/05/18 08/08/19 History epinephrine [EpiPen] 0.3 mg IM UD PRN 06/05/18 08/08/19 History nitroglycerin [Nitromist] 1 spray SUBLINGUAL UD PRN 06/05/18 08/08/19 History ferrous sulfate 325 mg (65 mg 325 mg PO BIDM #60 tab 12/31/18 08/08/19 Rx iron) tablet,delayed release carvedilol 3.125 mg PO BID 02/17/19 08/08/19 History citalopram 10 mg tablet 10 mg PO QDL #30 tab 03/21/19 08/08/19 Rx memantine 10 mg tablet 10 mg PO BID 90 Days #180 tab 06/20/19 08/08/19 Rx donepezil 10 mg tablet 10 mg PO HS #90 tab 06/23/19 08/08/19 Rx folic acid 1 mg tablet 1 mg PO QAM #90 tab 06/23/19 08/08/19 Rx gabapentin 300 mg capsule 300 mg PO HS #90 cap 06/23/19 08/08/19 Rx hydrochlorothiazide 25 mg tablet 12.5 mg PO QAM #45 tab 06/23/19 08/08/19 Rx levothyroxine 100 mcg tablet 100 mcg PO HS #90 tab 06/23/19 08/08/19 Rx simvastatin 80 mg tablet 80 mg PO HS #90 tab 06/23/19 08/08/19 Rx tamsulosin 0.4 mg capsule 0.4 mg PO QPM #90 cap 06/23/19 08/08/19 Rx tramadol 50 mg tablet See Rx Instructions .ROUTE 06/23/19 08/08/19 Rx .COMPLEX #60 tab apixaban 5 mg tablet 5 mg PO BID #180 tab 07/20/19 08/08/19 Rx bethanechol chloride 50 mg tablet 50 mg PO QID #90 tab 07/21/19 08/08/19 Rx isosorbide mononitrate 60 mg PO QAM 08/02/19 08/08/19 History potassium chloride 10 mEq 10 meq PO DAILY 30 Days #30 cap 08/04/19 08/08/19 Rx capsule,extended release Past Med/Surg History Medical History Anxiety and depression Aortic stenosis Mild (MG 11 mmHg, UZMA 1.1 cm2) per 11/2015 ECHO Atrial fibrillation on Eliquis-F/U PCP BPH w urinary obs/LUTS CAD (coronary artery disease), [place] coronary artery S/P BMS to OM (1997). Caths also 2006, 2008 and 2013, no stents placed. Most recent cath in 2013 showed no angiographically significant stenosis other than 20-30% in-stent restenosis of OM. Cardiac pacemaker in situ Implanted 2008 (2/[address] [facility]. Last pacer check 07/2019 [facility] Chronic indwelling Myles catheter Chronic pain Dementia Dyslipidemia GERD (gastroesophageal reflux disease) controlled History of kidney stones History of [place] (myocardial infarction) 1997 HTN (hypertension), benign Hx of gastric ulcer Hypothyroidism Iron deficiency anemia Sleep apnea NO DEVICE Surgical History H/O total knee replacement RIGHT/LEFT History of cardiac cath MULTIPLE WITH TOTAL 4 STENTS-LAST ONE 2 YRS AGO [facility] History of cataract surgery B/L History of lithotripsy History of lumbar fusion History of prostate surgery PARTIAL PROSTECTOMY History of thyroidectomy S/P placement of cardiac pacemaker 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 2017-PACER CHECK [facility] S/P TURP S/P ureteral stent placement Cysto, B/L RPG, right ureteroscopy, stent exchange: 07/06/18: LMA#5 at [facility] CYSTO STENT EXCHANGE 11/2018 Family History Father Diabetes Mother Coronary heart disease Hypertension Brother Seizure Social History Preferred Language: Moldovan Communication Ability: DEMENTIA Animal Scientist Required: No Beliefs That Will Affect Care: None marital status: Current Living Situation: Spouse and Family Current Living Situation Comment: SPOUSE WHEELCHAIR BOUND/2 DAUGHTERS LIVE 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 CHANGES CATHER MONTHLY Feels Safe at Home: Yes Smoking Status: Never smoker Tobacco Type: cigarettes, cigars and smokeless tobacco ; Second Hand Exposure: No ; Hx Alcohol Use: No Hx Substance Use: No Seatbelt Use: always Review of Systems Review of Systems: Constitutional: + Fever, sweats and chills, + confused Eyes: No diplopia, no worsening or blurred vision ENT: normal hearing, no trouble swallowing Respiratory: No cough, sputum, dyspnea at rest or on exertion Cardiovascular: No chest pain, tightness or palpitations Abdomen: No pain, nausea, vomiting, diarrhea or constipation Musculoskeletal: No joint pain, calf pain, swelling Neurologic: + generalized weakness, no numbness/tingling, or balance problems Psychiatric: No anxiety or depression Skin: No rash or itch Physical Exam Physical Exam: General: awake, alert, no apparent distress, + fatigue, + pleasantly confused Head: Normocephalic, atraumatic ENT: PERRL, EOMI, no pharyngeal exudate, mucous membranes moist Chest: On RA, diminished breath sounds bibasilarly, no wheeze or rhonchi Cardiac: Regular rate and rhythm, + DANIELA heard best at right sternal border, no JVD, normal peripheral pulses, good capillary refill Abdominal: NABS x 4 quadrants, soft, nondistended, nontender to palpation, no rebound, guarding or tenderness : Indwelling myles draining dark red urine with clot Extremities: Normal inspection, no peripheral edema or erythema, calfs nontender to palpation Psych: normal mood and affect Neuro: AA,+ disoriented, no gross motor deficits, speech is clear, no peripheral sensory deficits Results & Data Results & Data ([facility]) Vital Signs (Past 12 Hours) Vital Signs Temp Pulse Pulse Resp BP BP Pulse Ox 08/08/19 16:35 85 28 H 133/72 94 08/08/19 16:30 81 29 H 08/08/19 16:13 88 08/08/19 15:30 83 24 08/08/19 15:08 86 18 170/100 H 92 08/08/19 15:00 88 25 H 94 08/08/19 14:59 89 25 H 94 08/08/19 14:39 89 27 H 170/100 H 92 08/08/19 13:17 36.9 C 96 H 24 167/[address] H [address] abd pelvis wo con CT DOSE: 1255.39 mGycm HISTORY: Pain recent suregery TECHNIQUE: Multiaxial CT images of the abdomen and pelvis were performed without contrast. A dose lowering technique was utilized adhering to the principles of ALARA. COMPARISON STUDY: 08/26/2018 FINDINGS: Bilateral ureteral stents are present. Prior cholecystectomy. Liver sp bev and pancreas are grossly unremarkable. Significant perinephric infiltrative change of the right kidney compared to the prior study. Possibility of underlying pyelonephritis is considered. Left renal interpolar cyst as well as a medial exophytic cyst unchanged. Air within the left renal collecting system possibly secondary to the stent position. No definite evidence for left renal hydronephrosis. Hyperdense left renal cortical density not present on the prior study. Possibility of a small component of hemorrhage is considered. The bowel pattern overall is nonobstructive. Bilateral ureteral stents extend to the bladder. There is a mild fecal impaction. There are by lateral penile pumps in position. Bowel pattern again is nonobstructive. IMPRESSION: 1. Somewhat difficult study to interpret in the absence of interval studies for history of what appears to be surgical intervention. 2. Bilateral ureteral stents appearing to be in acceptable position. 3. Infiltrative changes of the right renal perinephric Fat raising the possibility of pyelonephritis. 3. Hyperdense cortex of a short segment of the peripheral midpole left kidney raising the possibility of a hemorrhagic cyst. This measures no more than 2 cm. There are L5. Unchanged left renal cystic changes. 5. Nonobstructive bowel pattern. 6. Mild rectal fecal impaction. 7. Nonobstructive bowel pattern. ACT 112: Negative or not required by law. The above report was generated using voice recognition software. It may contain grammatical, syntax or spelling errors. CT head/brain wo con CT DOSE: 1765.59 mGycm HISTORY: Mental status change altered TECHNIQUE: Multiaxial CT images of the head were performed without the use of intravenous contrast. A dose lowering technique was utilized adhering to the principles of ALARA. Comparison: 08/26/2018 Findings: The paranasal sinuses and mastoid air cells are clear. Moderate cerebral as well as cerebellar atrophy. Moderate chronic small vessel change. No evidence for acute intracranial hemorrhage. No significant midline shift. Impression: Chronic and age-related change. No acute process. ACT 112: Negative or not required by law. The above report was generated using voice recognition software. It may contain grammatical, syntax or spelling errors. Electronically signed by: Trip Ramirez M.D. 08/08/2019 4:17 PM Dictated: 08/08/191616 Transcribed: 08/08/191616 SINGLE VIEW CHEST CLINICAL HISTORY: Sepsis. FINDINGS: An AP, portable, upright chest radiograph is compared to study dated 08/28/2018. The examination is degraded by portable technique and patient rotation. A 2-lead cardiac pacemaker is unchanged in position. The heart is enlarged noting atherosclerotic calcification of the thoracic and. There is pulmonary vascular congestion. Airspace opacities are present at the left lung base. No large pleural effusion or pneumothorax is seen. The skeletal structures are osteopenic. The bony thorax is grossly intact. IMPRESSION: 1. Cardiomegaly and cardiac pacemaker with evidence of congestive failure. 2. Airspace opacities are present at the left lung base. This could represent atelectasis and/or an infectious/inflammatory pneumonitis. Clinical correlation will be required. ACT 112: Negative or not required by law. Electronically signed by: Santy Acuña M.D. 08/08/2019 3:19 PM Dictated: 08/08/19 1517 Transcribed: 08/08/191516 Supervising Physician Co-Signing Physician Notes Patient was seen and examined independently I discussed the case with Rebekah JANSEN I reviewed pertinent past medical social family history and also the plan of care and agree with the plan of care. Patient without significant distress. He was not having any defined pulmonary symptoms to go along with clinical diagnosis of pneumonia however he did have a fever at home which could be from an atypical pneumonia versus transient bacteremia from his stent placement. Patient was brought in our facility given intravenous antibiotics. His examination included his cardiac exam showing a systolic murmur, his lungs with diminished breath sounds but no focal air loss wheezes egophony or areas of dullness. He has a negative abdominal examination no CV angle tenderness and no overt skin changes consistent with a source of infection. Urinalysis will be undertaken and the patient be placed on Zosyn therapy which would cover both pulmonary sources and urinary sources Any exceptions will be noted below PG Care Time/CCT Total # of Minutes Spent Total Time Spent with Patient: Total time spent is greater than 50% in coordination of care (as documented) at patient's floor/unit and/or counseling patient: Coding Level of Care Code 68416 Initial Inpt Care Lvl 3 Diagnoses Hydronephrosis N13.30 Hydronephrosis type: unspecified BPH w urinary obs/LUTS N40.1; N13.8 Bilateral renal masses N28.89 Atrial fibrillation I48.91 History of [place] (myocardial infarction) I25.2 Dyslipidemia E78.5 HTN (hypertension), benign I10 CAD (coronary artery disease), [place] coronary artery I25.10 Associated angina: without angina [place] vs. transplanted heart: [place] heart Anxiety and depression F41.9; F32.9 Iron deficiency anemia D50.9 Cardiac pacemaker in situ Z95.0 DVT prophylaxis Z29.9 (1) Hydronephrosis Hydronephrosis type: unspecified Qualified Code(s): N13.30 - Unspecified hydronephrosis (2) CAD (coronary artery disease), [place] coronary artery Associated angina: without angina [place] vs. transplanted heart: [place] heart Qualified Code(s): I25.10 - Atherosclerotic heart disease of [place] coronary artery without angina pectoris
[2019-08-08 17:41] LABS: Appearance Urine Cloudy (Clear); Bacteria Urine Automated Negative (Negative); Bilirubin Urine Negative (Negative); Blood Urine 3+ (Negative); Epithelial Cell Urine Auto >30 /lpf (0-5); Glucose Urine UA Negative (Negative); Ketones Urine Negative (Negative); Leukocyte Esterase Urine 3+ (Negative); Nitrite Urine Negative (Negative); Protein Urine 3+ (Negative); RBC Urine Automated >30 /hpf (0-4); Specific Gravity Urine 1.014 (1.000-1.030); Urobilinogen Urine Negative (Negative)
[2019-08-08 17:42] LABS: Color Urine Red
[2019-08-08 17:57] LABS: Cast Urine Automated 0 /lpf (0-5)
[2019-08-08] MEDS ORDERED: ONDANSETRON INJ 2 MG/ML 2 ML VIAL IV PRN (18:38)
[2019-08-08] MEDS ORDERED: ACETAMINOPHEN 325 MG TAB PO PRN (18:38)
[2019-08-08] MEDS ORDERED: EPINEPHRINE ADULT AUTO-INJECT 0.3 MG SYR IM PRN (18:38)
[2019-08-08] MEDS ORDERED: NITROGLYCERIN SL SPR 4.9 GM BTL SL PRN (18:52)
[2019-08-08] MEDS: APIXABAN 5 MG TABLET PO SCH (20:48)
[2019-08-08] MEDS: BETHANECHOL CHL 25 MG TAB PO SCH (20:50)
[2019-08-08] MEDS: DONEPEZIL HCL 10 MG TAB PO SCH (20:50)
[2019-08-08] MEDS: carvediloL 3.125 MG TAB PO SCH (20:50)
[2019-08-08] MEDS: GABAPENTIN 300 MG CAP PO SCH (20:51)
[2019-08-08] MEDS: MEMANTINE HCL 10 MG TAB PO SCH (20:52)
[2019-08-08] MEDS: LEVOTHYROXINE SODIUM 100 MCG TABLET PO SCH (20:52)
[2019-08-08] MEDS: TAMSULOSIN HCL 0.4 MG CAP PO SCH (20:53)
[2019-08-08] MEDS: SIMVASTATIN 80 MG TAB PO SCH (20:53)
[2019-08-08] MEDS: PIPERACILLIN/TAZOBACTAM 4.5 GM in DEXTROSE 5% 100 ML IV SCH (21:11)
[2019-08-09] MEDS: PIPERACILLIN/TAZOBACTAM 4.5 GM in DEXTROSE 5% 100 ML IV SCH ×3 (06:05→23:57)
[2019-08-09 06:25] LABS: Hemoglobin 10.8 g/dL (14.0-18.0); Mean Corpuscular Hemoglobin 28.3 pg (25-34); Mean Corpuscular Hgb Conc 32.7 g/dL (32-36); Mean Corpuscular Volume 86.6 fL (80-100); Mean Platelet Volume 10.1 fL (7.4-10.4); Platelet Count 200 K/uL (130-400); RDW Coefficient of Variation 16.2 % (11.5-14.5); RDW Standard Deviation 51.7 fL (36.4-46.3); Red Blood Count 3.81 M/uL (4.7-6.1); White Blood Count 14.74 K/uL (4.8-10.8)
[2019-08-09 07:02] LABS: Albumin Level 2.5 gm/dl (3.4-5.0); BUN Creatinine Ratio 14.7 (10-20); Calcium 8.6 mg/dl (8.5-10.1); Creatinine Clr Calc Pharmacy 30.4 ml/min; Est GFR (Non-African American) 33.6; Potassium 3.2 mmol/L (3.5-5.1)
[2019-08-09 07:04] LABS: Albumin Globulin Ratio 0.6 (0.9-2); Globulin 4.4 gm/dl (2.5-4.0); Total Protein 6.9 gm/dl (6.4-8.2)
[2019-08-09] MEDS: POTASSIUM CHLORIDE 10 MEQ TABCR PO SCH (08:00)
[2019-08-09] MEDS: ASPIRIN 81 MG ECTAB PO SCH (08:00)
[2019-08-09] MEDS: MEMANTINE HCL 10 MG TAB PO SCH ×2 (08:00→20:05)
[2019-08-09] MEDS: ISOSORBIDE MONO EXTENDED REL 60 MG TABCR PO SCH (08:01)
[2019-08-09] MEDS: FERROUS SULFATE 325 MG TAB PO SCH ×2 (08:01→17:33)
[2019-08-09] MEDS: FOLIC ACID 1 MG TAB PO SCH (08:01)
[2019-08-09] MEDS: BETHANECHOL CHL 25 MG TAB PO SCH ×4 (08:02→20:07)
[2019-08-09] MEDS: carvediloL 3.125 MG TAB PO SCH ×2 (08:02→20:06)
[2019-08-09] MEDS: APIXABAN 5 MG TABLET PO SCH ×2 (08:03→20:05)
--- NOTE | 2019-08-09 08:18 | Urology Consultation ---
Date of Consultation August 09, 2019 Assessment & Plan (1) Weakness: Patient admitted after lethargy status post stent removal yesterday after going home. Patient has had issues with anesthesia in the past. It is currently at his baseline for his multiple major chronic medical issues. Does experience chronic weakness and poor mobility at times. No significant fevers or chills. According to ER report patient had a low-grade fever at home however since admission has not had a fever. Is denying any major lung or other issues however on imaging there was a concern for a possible pneumonia. Patient is being treated with broad-spectrum antibiotics. Patient is tolerating catheter and is not having any problems or issues with stents. Imaging findings consistent with recent procedure with bilateral stent exchange. Patient denies any considerable lower urinary tract symptoms or bother. Has a chronic catheter which is draining well without major issues and mild hematuria expected after procedure. Recommend supportive care and awaiting full results. Should be able to be discharged home from a standpoint once stabilized from presumed pneumonia. (2) Hematuria: (3) BPH w urinary obs/LUTS: History of Present Illness Attending Physician: Maryan Cook MD History of Present Illness A consultation for patient well-known to the urology service. Yesterday had bilateral stent exchange. This was a short procedure with no complications or issues. Postoperatively patient had done well had went home and started to develop per family confusion. Had a low-grade fever at home. Had issues with lethargy. Was sent to the ER and evaluated. At the ER patient has been stable without fever or major other issues. Was admitted for possible pneumonia based on imaging. Is not experiencing any major respiratory issues. Has had history of issues with retention and incomplete emptying. Is currently dealing with mild gross hematuria. No other major changes or issues. Findings on CT scan were concerning for possible inflammation however this is very likely to be transient post procedure changes. No issues or signs of UTI/Pyelo, discomfort, and ill feelings. Patient is very well-known his complicated history, surgical, medical, family, and social history have all been reviewed without major changes please see patient's H&p for full results. Patient was admitted and is undergoing observation with broad spectrum IV antibiotics for presumed pneumonia. Patient has multiple chronic medical issues and chronic illnesses. At time of assessment is at baseline for his overall chronic problems. Allergies Allergy/AdvReac Type Severity Reaction Status Date / Time captopril Allergy Severe ANAPHYLAXIS Verified 08/08/19 15:05 Iodinated Contrast Media Allergy Severe ANAPHYLAXIS Verified 08/08/19 15:05 levofloxacin Allergy Severe ANAPHYLAXIS Verified 08/08/19 15:05 morphine Allergy Severe Anaphylaxis Verified 08/08/19 15:05 oxaprozin Allergy Severe ANAPHYLAXIS Verified 08/08/19 15:05 Sulfa (Sulfonamide Allergy Severe Anaphylaxis Verified 08/08/19 15:05 Antibiotics) torsemide Allergy Severe ANAPHYLAXIS Verified 08/08/19 15:05 hydrocodone Allergy Mild RASH Verified 08/08/19 15:05 Home Medications Home Medications Medication Instructions Recorded Confirmed Type aspirin [Aspir-81] 81 mg PO QAM 06/05/18 08/08/19 History epinephrine [EpiPen] 0.3 mg IM UD PRN 06/05/18 08/08/19 History nitroglycerin [Nitromist] 1 spray SUBLINGUAL UD PRN 06/05/18 08/08/19 History ferrous sulfate 325 mg (65 mg 325 mg PO BIDM #60 tab 12/31/18 08/08/19 Rx iron) tablet,delayed release carvedilol 3.125 mg PO BID 02/17/19 08/08/19 History citalopram 10 mg tablet 10 mg PO QDL #30 tab 03/21/19 08/08/19 Rx memantine 10 mg tablet 10 mg PO BID 90 Days #180 tab 06/20/19 08/08/19 Rx donepezil 10 mg tablet 10 mg PO HS #90 tab 06/23/19 08/08/19 Rx folic acid 1 mg tablet 1 mg PO QAM #90 tab 06/23/19 08/08/19 Rx gabapentin 300 mg capsule 300 mg PO HS #90 cap 06/23/19 08/08/19 Rx hydrochlorothiazide 25 mg tablet 12.5 mg PO QAM #45 tab 06/23/19 08/08/19 Rx levothyroxine 100 mcg tablet 100 mcg PO HS #90 tab 06/23/19 08/08/19 Rx simvastatin 80 mg tablet 80 mg PO HS #90 tab 06/23/19 08/08/19 Rx tamsulosin 0.4 mg capsule 0.4 mg PO QPM #90 cap 06/23/19 08/08/19 Rx tramadol 50 mg tablet See Rx Instructions .ROUTE 06/23/19 08/08/19 Rx .COMPLEX #60 tab apixaban 5 mg tablet 5 mg PO BID #180 tab 07/20/19 08/08/19 Rx bethanechol chloride 50 mg tablet 50 mg PO QID #90 tab 07/21/19 08/08/19 Rx isosorbide mononitrate 60 mg PO QAM 08/02/19 08/08/19 History potassium chloride 10 mEq 10 meq PO DAILY 30 Days #30 cap 08/04/19 08/08/19 Rx capsule,extended release Patient History Medical History Anxiety and depression Aortic stenosis Mild (MG 11 mmHg, UZMA 1.1 cm2) per 11/2015 ECHO Atrial fibrillation on Eliquis-F/U PCP BPH w urinary obs/LUTS CAD (coronary artery disease), [place] coronary artery S/P BMS to OM (1997). Caths also 2006, 2008 and 2013, no stents placed. Most recent cath in 2013 showed no angiographically significant stenosis other than 20-30% in-stent restenosis of OM. Cardiac pacemaker in situ Implanted 2008 (2/[address] [facility]. Last pacer check 07/2019 [facility] Chronic indwelling Michel catheter Chronic pain Dementia Dyslipidemia GERD (gastroesophageal reflux disease) controlled History of kidney stones History of MS (myocardial infarction) 1997 HTN (hypertension), benign Hx of gastric ulcer Hypothyroidism Iron deficiency anemia Sleep apnea NO DEVICE Surgical History H/O total knee replacement RIGHT/LEFT History of cardiac cath MULTIPLE WITH TOTAL 4 STENTS-LAST ONE 2 YRS AGO [facility] History of cataract surgery B/L History of lithotripsy History of lumbar fusion History of prostate surgery PARTIAL PROSTECTOMY History of thyroidectomy S/P placement of cardiac pacemaker 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 2016-PACER CHECK [facility] S/P TURP S/P ureteral stent placement Cysto, B/L RPG, right ureteroscopy, stent exchange: 07/06/18: LMA#5 at [facility] STENT EXCHANGE 11/2018 Family History Father Diabetes Mother Coronary heart disease Hypertension Brother Seizure Social History Preferred Language: Polish Communication Ability: DEMENTIA 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: No Beliefs That Will Affect Care: None marital status: Current Living Situation: Spouse and Family Current Living Situation Comment: [employer]OUSE WHEELCHA[employer] BOUND/2 DAUGHTERS LIVE IN/[employer] CATHER MONTHLY Feels Safe at Home: Yes Smoking Status: Never smoker Tobacco Type: cigarettes, cigars and smokeless tobacco ; Second Hand Exposure: No ; Hx Alcohol Use: No Hx Substance Use: No Seatbelt Use: always Review of Systems Review of Systems: All systems reviewed & are unremarkable except as noted in HPI & below Physical Exam Physical Exam: General: Alert in no acute distress. Advanced age. Chronic Medical issues. Poor mobility. Resting comfortably in bed without major issues problems or concerns. HEENT: Normocephalic. Inspection normal. Cranial Nerves 2-12 Grossly intact with some hearing issues. Normal inspection of face. Normal inspection of neck. Psychologic: Normal affect. Baseline issues with memory. Respiratory: Nonlabored. No use of accessory muscles. No tachypnea or dyspnea. Cardiovascular: No tachycardia Skin: [place] and Dry. No rashes or visible lesions. Extremities/Lymphatics: Minor Mobility issues. Slow Gait. Abdomen: Soft Non-distended. No rebound or guarding. : Michel in place draining dark red urine. Results & Data Vital Signs (Past 12 Hours) Vital Signs Temp Pulse Pulse Resp BP Pulse Ox 08/09/19 07:53 36.7 C 60 18 105/63 98 08/09/19 04:32 37.1 C 68 18 118/69 96 08/09/19 01:16 64 08/08/19 23:14 36.9 C 62 18 146/79 H 98 PG Care Time/CCT Total # of Minutes Spent Total Time Spent with Patient: Total time spent is greater than 50% in coordination of care (as documented) at patient's floor/unit and/or counseling patient: Coding Level of Care Code 38410 Inpt Consult Level 5 Diagnoses Weakness R53.1 Hematuria R31.0 Hematuria type: gross BPH w urinary obs/LUTS N40.1; N13.8 (1) Hematuria Hematuria type: gross Qualified Code(s): R31.0 - Gross hematuria
[2019-08-09] MEDS ORDERED: hydroCHLOROthiazide 25 MG TAB PO SCH (09:00)
[2019-08-09] MEDS ORDERED: POTASSIUM CHLORIDE 20 MEQ TABCR PO ONE (09:15)
--- NOTE | 2019-08-09 10:59 | XRay Report ---
TWO VIEW CHEST CLINICAL HISTORY: Follow-up pneumonia.. FINDINGS: AP and lateral chest radiographs are compared to study dated 08/08/2019. The AP views degrad ed by patient rotation. A 2-lead cardiac pacemaker is unchanged in position. The heart is enlarged no ting atherosclerotic calcification of the thoracic aorta. The pulmonary vasculature is noncongested. Scarring/atelectasis is noted at the lung bases. No airspace consolidation or large pleural effusion is identified. There is no pneumothorax. The skeletal structures are osteopenic. The bony thorax appe ars intact. 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 IMPRESSION: 1. Cardiomegaly and cardiac pacemaker without radiographic evidence of congestive failure. 2. No airspace consolidation or pleural effusion is identified. ACT 112: Negative or not required by law. Electronically signed by: Santy Acuña M.D. 08/09/2019 10:58 AM
[2019-08-09] MEDS: CITALOPRAM 20 MG TAB PO SCH (12:50)
--- NOTE | 2019-08-09 13:08 | Hospitalist Progress Note ---
Date of Service August 09, 2019 Assessment & Plan (1) Acute metabolic encephalopathy: Presented with confusion lethargy and fever at home on the same day as a bilateral ureteral stent exchange. Seems much improved today but still with some fatigue. Likely caused by fever. Fever may have been related to atelectasis or inflammation from recent stent exchange. Urinalysis not consistent with infection. Urine culture growing 2 gram-negative bacilli but most likely colonizers given chronic indwelling Michel Initial chest x-ray with possible left lower lobe pneumonia but most likely was atelectasis as repeat chest x-ray PA and lateral today is clear. No fever since admission. Does have persistent leukocytosis perhaps secondary to recent procedure and surgery Seen by urology-does not feel there is an acute process going on, specifically no acute pyelonephritis -Continue empiric antibiotics and follow blood cultures to ensure no bacteremia --Encouraged p.o. intake Does have underlying dementia-supportive care (2) Fever: Fever at home to 101 as per hours after recent procedure -Work-up as above No fevers since admission COVID was negative on 08/03 prior to his urological procedure (3) BPH w urinary obs/LUTS: Continue tamsulosin Continue chronic indwelling Michel catheter (4) Atrial fibrillation: With paced rhythm and sinus rhythm here on telemetry -Continue Eliquis -Continue carvedilol -No need for further telemetry monitoring (5) Dyslipidemia: Continue statin (6) HTN (hypertension), benign: Blood pressures elevated -Continue antihypertensive meds with carvedilol, HCTZ, Imdur (7) CAD (coronary artery disease), [place] coronary artery: -BMS to OM (1997). Caths also 2006, 2008 and 2013, no stents placed. Most recent cath in 2013 showed no angiographically significant stenosis other than 20-30% in-stent restenosis of OM. -Continue carvedilol 3.125 mg twice daily, HCTZ 12.5 mg daily, Imdur 60 mg daily, simvastatin 80 mg hs No chest pains here (8) Iron deficiency anemia: Hemoglobin with slight drop likely acute blood loss anemia secondary to gross hematuria which is expected after ureteral stent exchange on Eliquis -Follow CBC Hemoglobin 10.8 -Continue iron supplementation, folic acid (9) Cardiac pacemaker in situ: - implanted 2008 (/ SSS). [facility]. Last pacer check 07/2019 [facility] (10) CKD (chronic kidney disease) stage 3, GFR 30-59 ml/min: Creatinine around his baseline at 1.85 -Avoid nephrotoxins -renally dose meds when appropriate -follow BMP (11) Hematuria: As noted above, expected as per urology after ureteral stent exchange and also on Eliquis -Observe for resolution and watch for clots in the Michel catheter -Okay to continue Eliquis (12) Hypothyroidism: TSH is 2.7 on recent labs -Continue home levothyroxine 100 mcg once daily (13) Hx of sleep apnea: Not on CPAP O2 as needed at night (14) Dementia: Supportive care, mild cognitive impairment -Continue home donepezil -Continue home memantine (15) Hypokalemia: Replace with an extra 40 mEq of p.o. potassium chloride -Continue home dose of 10 mEq potassium chloride -Follow BMP (16) Aortic stenosis: Mild as per cardiology records on echocardiogram from 2016 -Follow as an outpatient with cardiology (17) DVT prophylaxis: - teds, continue Eliquis Dispo: From home, hopeful for discharged home tomorrow. PT/OT evaluations completed today and both are recommending [facility]. However, and daughter prefer that he, home with home health-we will reevaluate tomorrow prior to discharge Admission and Anticipated Discharge Date Admission Date: August 08, 2019 Anticipated date of discharge: 08/10/19 Subjective Patient reports he is not sure if he feels well today. He denies any chest pain or shortness of breath. He was placed on oxygen overnight but pulse ox is 98% on 2 L. No fever since admission. He denies any abdominal pains. He has some mild back pain. Denies cough. He is eating but still feels like his energy level is down. I discussed his care with his at his request. She does tell me that the patient has some underlying mild dementia. Telemetry with paced rhythm normal sinus rhythm with PVCs with rates in the 50s to 60s. Review of Systems Review of Systems: All systems reviewed & are unremarkable except as noted in HPI & below Physical Exam Constitutional: WD/WN, vitals as above Eyes: + anicteric sclerae Neck: trachea midline, no thyromegaly Respiratory: normal respiratory effort, lungs clear to auscultation Cardiovascular: Rate/Rhythm: regular rate and regular rhythm Heart Sounds: + murmur (3/6 DANIELA heard best at the RUSB) Chest (Breasts): Chest: normal inspection of chest Gastrointestinal (Abdomen): normal bowel sounds, soft, nontender, no hepatosplenomegaly Musculoskeletal: Extremities: extremities normal to inspection; no cyanosis and no clubbing Skin: no rashes, warm and dry Neurologic: moves all extremities and awake; no focal motor deficits Psychiatric: A+Ox3, euthymic affect Genitourinary: Michel catheter in place with dark red urine Lymphatic: no lymphedema Results & Data Results & Data ([facility]) Vital Signs (Past 12 Hours) Vital Signs Temp Pulse Pulse Resp BP Pulse Ox 08/09/19 12:53 36.7 C 62 20 103/63 98 08/09/19 08:00 60 08/09/19 07:53 36.7 C 60 18 105/63 98 08/09/19 04:32 37.1 C 68 18 118/69 96 08/09/19 01:16 64 Laboratory Results 08/09/19 08/09/19 Range/Units 06:03 06:03 WBC 14.74 H (4.8-10.8) K/uL RBC 3.81 L (4.7-6.1) M/uL Hgb 10.8 L (14.0-18.0) g/dL Hct 33.0 L (42-52) % MCV 86.6 (80-100) fL MCH 28.3 (25-34) pg MCHC 32.7 (32-36) g/dL RDW Std Deviation 51.7 H (36.4-46.3) fL RDW Coeff of Curtis 16.2 H (11.5-14.5) % Plt Count 200 (130-400) K/uL MPV 10.1 (7.4-10.4) fL Sodium 138 (136-145) mmol/L Potassium 3.2 L (3.5-5.1) mmol/L Chloride 102 (98-107) mmol/L Carbon Dioxide 31 (21-32) mmol/L Anion Gap 5.0 (3-11) BUN 27 H (7-18) mg/dl Creatinine 1.85 H (0.6-1.4) mg/dl Est Cr Clr Drug Dosing 30.4 ml/min Est GFR ( Amer) 39.0 Est GFR (Non-Af Amer) 33.6 BUN/Creatinine Ratio 14.7 (10-20) Glucose 111 H (70-99) mg/dl Calcium 8.6 (8.5-10.1) mg/dl Total Bilirubin 1.0 (0.2-1) mg/dl AST 11 L (15-37) U/L ALT 8 L (12-78) U/L Alkaline Phosphatase 78 (45-117) U/L Total Protein 6.9 (6.4-8.2) gm/dl Albumin 2.5 L (3.4-5.0) gm/dl Globulin 4.4 H (2.5-4.0) gm/dl Albumin/Globulin Ratio 0.6 L (0.9-2) Blood cultures no growth to date Urine culture with 2 gram-negative blue species PG Care Time/CCT Total # of Minutes Spent Total Time Spent with Patient: Total time spent is greater than 50% in coordination of care (as documented) at patient's floor/unit and/or counseling patient: Coding Level of Care Code 04805 Subseq Hosp Care Lvl 3 Diagnoses Acute metabolic encephalopathy G93.41 Fever R50.9 BPH w urinary obs/LUTS N40.1; N13.8 Atrial fibrillation I48.91 Dyslipidemia E78.5 HTN (hypertension), benign I10 CAD (coronary artery disease), [place] coronary artery I25.10 Associated angina: without angina [place] vs. transplanted heart: [place] heart Iron deficiency anemia D50.9 Cardiac pacemaker in situ Z95.0 CKD (chronic kidney disease) stage 3, GFR 30-59 ml/min N18.3 Hematuria R31.0 Hematuria type: gross Hypothyroidism E03.9 Hypothyroidism type: acquired Hx of sleep apnea Z86.69 Dementia F03.90 Hypokalemia E87.6 Aortic stenosis I35.0 DVT prophylaxis Z29.9 (1) CAD (coronary artery disease), [place] coronary artery Associated angina: without angina [place] vs. transplanted heart: [place] heart Qualified Code(s): I25.10 - Atherosclerotic heart disease of [place] coronary artery without angina pectoris (2) Hematuria Hematuria type: gross Qualified Code(s): R31.0 - Gross hematuria (3) Hypothyroidism Hypothyroidism type: acquired Qualified Code(s): E03.9 - Hypothyroidism, unspecified
[2019-08-09] MEDS: TAMSULOSIN HCL 0.4 MG CAP PO SCH (20:06)
[2019-08-09] MEDS: DONEPEZIL HCL 10 MG TAB PO SCH (20:06)
[2019-08-09] MEDS: SIMVASTATIN 80 MG TAB PO SCH (20:07)
[2019-08-09] MEDS: GABAPENTIN 300 MG CAP PO SCH (20:08)
[2019-08-09] MEDS: LEVOTHYROXINE SODIUM 100 MCG TABLET PO SCH (20:08)
[2019-08-10] MEDS: PIPERACILLIN/TAZOBACTAM 4.5 GM in DEXTROSE 5% 100 ML IV SCH (06:08)
[2019-08-10 07:03] LABS: Basophils # (auto) 0.01 K/uL (0-0.2); Basophils % (auto) 0.1 %; Eosinophils # (auto) 0.11 K/uL (0-0.5); Hematocrit (blood only) 31.4 % (42-52); Hemoglobin 10.1 g/dL (14.0-18.0); Immature Granulocytes # (auto) 0.01 K/uL (0.00-0.02); Immature Granulocytes % (auto) 0.1 %; Lymphocytes % (auto) 10.5 %; Mean Corpuscular Hgb Conc 32.2 g/dL (32-36); Mean Platelet Volume 10.3 fL (7.4-10.4); Monocytes # (auto) 1.68 K/uL (0.11-0.59); Monocytes % (auto) 14.7 %; Neutrophils # (auto) 8.45 K/uL (1.4-6.5); Neutrophils % (auto) 73.6 %; Platelet Count 196 K/uL (130-400); RDW Coefficient of Variation 15.9 % (11.5-14.5); RDW Standard Deviation 51.5 fL (36.4-46.3); Red Blood Count 3.61 M/uL (4.7-6.1); White Blood Count 11.46 K/uL (4.8-10.8)
--- NOTE | 2019-08-10 07:05 | Communication Note ---
Date of Service: August 10, 2019 Was called around 2300 on August 08 to evaluate patient for dark red blood out of myles catheter and around edges. Patient did indeed have dark red blood. He denied any symptoms or discomfort and on review of the notes this had been happening since urology evaluated patient earlier in the day. He does not have any clots and has been making urine appropriately. Likely secondary to traumatic stent placement while on apixaban. Will check H and H and hold apixaban for now until urology evaluates patient in AM.
[2019-08-10 07:41] LABS: Albumin Level 2.5 gm/dl (3.4-5.0); BUN Creatinine Ratio 14.6 (10-20); Calcium 8.7 mg/dl (8.5-10.1); Creatinine Clr Calc Pharmacy 26.6 ml/min; Est GFR (African American) 33.1; Est GFR (Non-African American) 28.5; Magnesium 2.5 mg/dl (1.8-2.4); Potassium 2.9 mmol/L (3.5-5.1)
--- NOTE | 2019-08-10 07:42 | Urology Progress Note ---
Date of Service August 10, 2019 Assessment & Plan (1) Acute metabolic encephalopathy: (2) Hydronephrosis: 79 year-old male patient with multiple comorbidities admitted secondary to confusion, lethargy, and fever status post cystoscopy, bilateral stent exchange on 08/08/[address] Medrano. -Plan of care reviewed with Dr. Medrano. -Patient clinically feeling better with supportive care and antibiotic therapy. -Remains afebrile, white count improving. -Await final results/sensitivities of urine and blood cultures, recently transitioned to IV Cefepime. -For hematuria, catheter likely needs irrigated, will exchange catheter for 22 [place] coude and hand irrigate PRN clots to see if hematuria improves. -Continue to monitor for adequate urine output. -Plan to continue to follow while inpatient. Subjective Patient laying in bed this morning, awake, non-toxic. Overall, he reports he is feeling better than yesterday. Does report subjective fever overnight, denies chills. Denies flank pain or abdominal pain. Denies nausea or vomiting. Per notes, patient did have some bleeding around catheter overnight and throughout the morning. Hematuria persists, catheter draining adequate amount of urine. Chart review: Afebrile Wbc 11.46 (previously 14.74) Creatinine 2.12 (previously 1.85) Preliminary urine culture positive for Providencia stuartii, resistant to Ciprofloxacin, Bactrim, and Cefuroxime. Was transitioned from Zosyn to Cefepime. Preliminary blood culture positive for gram negative bacilli. Review of Systems Constitutional: as per Subjective / HPI Gastrointestinal: no nausea and no vomiting Genitourinary: + as per Subjective / HPI Neurologic: no dizziness and no syncope Physical Exam Constitutional: well developed and well nourished; no acute distress and not ill appearing Respiratory: normal respiratory effort and able to speak in complete sentences; no respiratory distress and no audible wheezes Gastrointestinal (Abdomen): Inspection/Auscultation: abdomen normal to inspection; abdomen not distended Percussion/Palpation: abdomen soft; abdomen nontender and no guarding Psychiatric: Orientation: alert, oriented x 3 and cooperative Affect: euthymic affect Genitourinary: no CVA tenderness Michel catheter draining dark red /bloody drainage without clots. Results & Data Vital Signs (Past 12 Hours) Vital Signs Temp Pulse Pulse Resp BP Pulse Ox 08/10/19 07:28 36.6 C 56 L 16 111/68 95 08/10/19 06:50 36.7 C 65 18 119/68 97 08/10/19 06:36 98 08/10/19 05:17 36.7 C 62 20 122/64 99 08/10/19 00:01 36.5 C 62 18 145/76 H 99 08/10/19 00:00 61 08/09/19 20:15 36.7 C 71 18 189/107 H 100 PG Care Time/CCT Total # of Minutes Spent Total Time Spent with Patient: Total time spent is greater than 50% in coordina tion of care (as documented) at patient's floor/unit and/or counseling patient: Coding Level of Care Code 05846 Subseq Hosp Care Lvl 2 Diagnoses Acute metabolic encephalopathy G93.41 Hydronephrosis N13.30 Hydronephrosis type: unspecified (1) Hydronephrosis Hydronephrosis type: unspecified Qualified Code(s): N13.30 - Unspecified hydronephrosis
[2019-08-10 07:44] LABS: Albumin Globulin Ratio 0.6 (0.9-2); Bilirubin,Total 0.6 mg/dl (0.2-1); Globulin 4.3 gm/dl (2.5-4.0); Total Protein 6.8 gm/dl (6.4-8.2)
[2019-08-10] MEDS ORDERED: POTASSIUM CHLORIDE 20 MEQ TABCR PO STA (07:58)
[2019-08-10] MEDS ORDERED: SODIUM CHLORIDE 0.9% 1000ML 1,000 ML IV SCH (08:00)
[2019-08-10] MEDS: POTASSIUM CHLORIDE 10 MEQ TABCR PO SCH (08:09)
[2019-08-10] MEDS: carvediloL 3.125 MG TAB PO SCH ×2 (08:09→20:22)
[2019-08-10] MEDS: MEMANTINE HCL 10 MG TAB PO SCH ×2 (08:09→20:23)
[2019-08-10] MEDS: BETHANECHOL CHL 25 MG TAB PO SCH ×4 (08:09→20:24)
[2019-08-10] MEDS: ISOSORBIDE MONO EXTENDED REL 60 MG TABCR PO SCH (08:10)
[2019-08-10] MEDS: FOLIC ACID 1 MG TAB PO SCH (08:10)
[2019-08-10] MEDS: ASPIRIN 81 MG ECTAB PO SCH (08:10)
[2019-08-10] MEDS: FERROUS SULFATE 325 MG TAB PO SCH ×2 (08:10→16:50)
[2019-08-10] MEDS: POTASSIUM CHLORIDE / WTR 10 MEQ/100 ML PLCT IV SCH ×2 (08:41→09:37)
[2019-08-10] MEDS: CEFEPIME 2,000 MG in SYRINGE 7.5 ML IV SCH (09:37)
[2019-08-10] MEDS: CITALOPRAM 20 MG TAB PO SCH (11:23)
--- NOTE | 2019-08-10 18:23 | Hospitalist Progress Note ---
Date of Service August 10, 2019 Assessment & Plan (1) Acute metabolic encephalopathy: Presented with confusion, lethargy and fever at home on the same day as a bilateral ureteral stent exchange. Now improved, seems back to baseline with mild cognitive impairment Likely caused by fever related to bacteremia as below Urinalysis not consistent with infection; Urine culture growing two Providencia but most likely colonizers given chronic indwelling Michel Blood cx now 1/2 with GNR-this is the cause of his encephalopathy and fever Initial chest x-ray with possible left lower lobe pneumonia but most likely was atelectasis as repeat chest x-ray PA and lateral repeated the next day is clear. No fever since admission. Does have persistent leukocytosis which is now improving Seen by urology-does not feel there is an acute process going on, specifically no acute pyelonephritis -Continue abx as below (2) Gram-negative bacteremia: BCxs now with 1/2 GNR, sensitivity pending Ur cx with two Providencia--> will likely be one of these given that he likely got bacteremia from ureteral stent exchange Impro ing clinically, no further fevers No need to repeat BCxs -Change to Cefepime based on cultures from Urine and would finish out 14 day course as he is allergic to FQs and to Bactrim (3) Fever: Fever at home to 101 as per hours after recent procedure -Work-up as above--> secondary to bacteremia No fevers since admission COVID was negative on 08/03 prior to his urological procedure (4) BPH w urinary obs/LUTS: Continue tamsulosin Continue chronic indwelling Michel catheter (5) Atrial fibrillation: With paced rhythm and sinus rhythm here on telemetry -Continue Eliquis -Continue carvedilol -No need for further telemetry monitoring (6) Dyslipidemia: Continue statin (7) HTN (hypertension), benign: Blood pressures elevated -Continue antihypertensive meds with carvedilol, HCTZ, Imdur (8) CAD (coronary artery disease), [place] coronary artery: -BMS to OM (1997). Caths also 2006, 2008 and 2013, no stents placed. Most recent cath in 2013 showed no angiographically significant stenosis other than 20-30% in-stent restenosis of OM. -Continue carvedilol 3.125 mg twice daily, Imdur 60 mg daily, simvastatin 80 mg hs, and ASA 81mg daily No chest pains here (9) Iron deficiency anemia: Hemoglobin with slight drop likely acute blood loss anemia secondary to gross hematuria which is expected after ureteral stent exchange on Eliquis -Follow CBC Hemoglobin 10.1 today -Continue iron supplementation, folic acid (10) Cardiac pacemaker in situ: - implanted 2008 (2/ SSS). [facility]. Last pacer check 07/2019 [facility] (11) CKD (chronic kidney disease) stage 3, GFR 30-59 ml/min: Creatinine baseline at 1.85 Now with GIOVANY with Rn Document Improvement up to 2.12 Could be from sepsis, ATN -start NS at 100mL /hr x 1 L -Avoid nephrotoxins -renally dose meds when appropriate -follow BMP (12) Hematuria: As noted above, expected as per urology after ureteral stent exchange and also on Eliquis Increased amount on 08/09 -Observe for resolution and watch for clots in the Michel catheter -HOLD Eliquis (13) Hypothyroidism: TSH is 2.7 on recent labs -Continue home levothyroxine 100 mcg once daily (14) Hx of sleep apnea: Not on CPAP O2 as needed at night (15) Dementia: Supportive care, mild cognitive impairment -Continue home donepezil -Continue home memantine (16) Hypokalemia: Significantly low today -replace -Continue home dose of 10 mEq potassium chloride -Follow BMP (17) Aortic stenosis: Mild as per cardiology records on echocardiogram from 2016 -Follow as an outpatient with cardiology (18) DVT prophylaxis: - teds, continue Eliquis Dispo: From home. PT/OT evaluations completed and both are recommending long-term facility. However, and daughter prefer that he, home with home health-even with doing home IV abx Admission and Anticipated Discharge Date Admission Date: August 08, 2019 Subjective Reports he feels "ok." No abdominal pains. Denies any trouble with his Michel and does not recall having his Michel changed out this morning. RN reports overnight he had bleeding and urine leaking around the Michel from the penis and bleeding seemed more than previous in Michel bag. Urology recommended changing out to a 22 F coudet catheter and hand irrigating as needed. His Eliquis was held. He denies CP or SOB. Review of Systems Review of Systems: All systems reviewed & are unremarkable except as noted in HPI & below Physical Exam Constitutional: WD/WN, vitals as above Eyes: + anicteric sclerae Neck: trachea midline, no thyromegaly Respiratory: normal respiratory effort, lungs clear to auscultation Cardiovascular: Rate/Rhythm: regular rate and regular rhythm Heart Sounds: + murmur (3/6 DANIELA heard best at the RUSB) Chest (Breasts): Chest: normal inspection of chest Gastrointestinal (Abdomen): normal bowel sounds, soft, nontender, no hepatosplenomegaly Musculoskeletal: Extremities: extremities normal to inspection; no cyanosis and no clubbing Skin: no rashes, warm and dry Neurologic: moves all extremities and awake; no focal motor deficits Genitourinary: no testicular masses, no penis abnormality (penis with hypospadias, Michel in place, no leakage,urine dark red) Lymphatic: no lymphedema Results & Data Results & Data ([facility]) Vital Signs (Past 12 Hours) Vital Signs Temp Pulse Pulse Resp BP Pulse Ox 08/10/19 16:22 36.3 C L 57 L 18 146/77 H 96 08/10/19 11:45 36.8 C 95 H 20 124/72 94 08/10/19 11:15 36.6 C 98 H 20 125/70 98 08/10/19 09:00 59 L 08/10/19 08:00 63 08/10/19 07:28 36.6 C 56 L 16 111/68 95 08/10/19 06:50 36.7 C 65 18 119/68 97 08/10/19 06:36 98 Laboratory Results 08/10/19 08/10/19 Range/Units 06:30 06:30 WBC 11.46 H (4.8-10.8) K/uL RBC 3.61 L (4.7-6.1) M/uL Hgb 10.1 L (14.0-18.0) g/dL Hct 31.4 L (42-52) % MCV 87.0 (80-100) fL MCH 28.0 (25-34) pg MCHC 32.2 (32-36) g/dL RDW Std Deviation 51.5 H (36.4-46.3) fL RDW Coeff of Curtis 15.9 H (11.5-14.5) % Plt Count 196 (130-400) K/uL MPV 10.3 (7.4-10.4) fL Immature Gran % (Auto) 0.1 % Neut % (Auto) 73.6 % Lymph % (Auto) 10.5 % [place] % (Auto) 14.7 % Eos % (Auto) 1.0 % Baso % (Auto) 0.1 % Neut # (Auto) 8.45 H (1.4-6.5) K/uL Lymph # (Auto) 1.20 (1.2-3.4) K/uL [place] # (Auto) 1.68 H (0.11-0.59) K/uL Eos # (Auto) 0.11 (0-0.5) K/uL Baso # (Auto) 0.01 (0-0.2) K/uL Immature Gran # (Auto) 0.01 (0.00-0.02) K/uL Sodium 140 (136-145) mmol/L Potassium 2.9 L (3.5-5.1) mmol/L Chloride 103 (98-107) mmol/L Carbon Dioxide 31 (21-32) mmol/L Anion Gap 6.0 (3-11) BUN 31 H (7-18) mg/dl Creatinine 2.12 H (0.6-1.4) mg/dl Est Cr Clr Drug Dosing 26.6 ml/min Est GFR ( Amer) 33.1 Est GFR (Non-Af Amer) 28.5 BUN/Creatinine Ratio 14.6 (10-20) Glucose 98 (70-99) mg/dl Calcium 8.7 (8.5-10.1) mg/dl Magnesium 2.5 H (1.8-2.4) mg/dl Total Bilirubin 0.6 (0.2-1) mg/dl AST 11 L (15-37) U/L ALT 7 L (12-78) U/L Alkaline Phosphatase 71 (45-117) U/L Total Protein 6.8 (6.4-8.2) gm/dl Albumin 2.5 L (3.4-5.0) gm/dl Globulin 4.3 H (2.5-4.0) gm/dl Albumin/Globulin Ratio 0.6 L (0.9-2) PG Care Time/CCT Total # of Minutes Spent Total Time Spent with Patient: Total time spent is greater than 50% in coordination of care (as documented) at patient's floor/unit and/or counseling patient: Coding Level of Care Code 72165 Subseq Hosp Care Lvl 3 Diagnoses Acute metabolic encephalopathy G93.41 Gram-negative bacteremia R78.81 Fever R50.9 BPH w urinary obs/LUTS N40.1; N13.8 Atrial fibrillation I48.91 Dyslipidemia E78.5 HTN (hypertension), benign I10 CAD (coronary artery disease), [place] coronary artery I25.10 Associated angina: without angina [place] vs. transplanted heart: [place]kat heart Iron deficiency anemia D50.9 Cardiac pacemaker in situ Z95.0 CKD (chronic kidney disease) stage 3, GFR 30-59 ml/min N18.3 Hematuria R31.0 Hematuria type: gross Hypothyroidism E03.9 Hypothyroidism type: acquired Hx of sleep apnea Z86.69 Dementia F03.90 Hypokalemia E87.6 Aortic stenosis I35.0 DVT prophylaxis Z29.9 (1) Hematuria Hematuria type: gross Qualified Code(s): R31.0 - Gross hematuria (2) Hypothyroidism Hypothyroidism type: acquired Qualified Code(s): E03.9 - Hypothyroidism, unspecified (3) CAD (coronary artery disease), [place] coronary artery Associated angina: without angina [place] vs. transplanted heart: [place]kat heart Qualified Code(s): I25.10 - Atherosclerotic heart disease of [place] coronary artery without angina pectoris
[2019-08-10] MEDS: DONEPEZIL HCL 10 MG TAB PO SCH (20:21)
[2019-08-10] MEDS: GABAPENTIN 300 MG CAP PO SCH (20:22)
[2019-08-10] MEDS: LEVOTHYROXINE SODIUM 100 MCG TABLET PO SCH (20:23)
[2019-08-10] MEDS: SIMVASTATIN 80 MG TAB PO SCH (20:23)
[2019-08-10] MEDS: TAMSULOSIN HCL 0.4 MG CAP PO SCH (20:24)
[2019-08-11 06:21] LABS: Hematocrit (blood only) 29.5 % (42-52); Hemoglobin 9.5 g/dL (14.0-18.0); Mean Corpuscular Hemoglobin 28.2 pg (25-34); Mean Corpuscular Hgb Conc 32.2 g/dL (32-36); Mean Corpuscular Volume 87.5 fL (80-100); Mean Platelet Volume 10.1 fL (7.4-10.4); Platelet Count 194 K/uL (130-400); RDW Coefficient of Variation 15.7 % (11.5-14.5); Red Blood Count 3.37 M/uL (4.7-6.1); White Blood Count 9.74 K/uL (4.8-10.8)
[2019-08-11 06:56] LABS: Calcium 8.9 mg/dl (8.5-10.1); Creatinine Clr Calc Pharmacy 34.5 ml/min; Est GFR (African American) 45.4; Est GFR (Non-African American) 39.2; Magnesium 2.1 mg/dl (1.8-2.4); Potassium 3.6 mmol/L (3.5-5.1)
[2019-08-11] MEDS: BETHANECHOL CHL 25 MG TAB PO SCH ×4 (07:50→21:55)
[2019-08-11] MEDS: carvediloL 3.125 MG TAB PO SCH ×2 (07:51→21:59)
[2019-08-11] MEDS: POTASSIUM CHLORIDE 10 MEQ TABCR PO SCH (07:51)
[2019-08-11] MEDS: MEMANTINE HCL 10 MG TAB PO SCH ×2 (07:51→21:56)
[2019-08-11] MEDS: ASPIRIN 81 MG ECTAB PO SCH (07:51)
[2019-08-11] MEDS: ISOSORBIDE MONO EXTENDED REL 60 MG TABCR PO SCH (07:51)
[2019-08-11] MEDS: FERROUS SULFATE 325 MG TAB PO SCH ×2 (07:52→17:12)
[2019-08-11] MEDS: FOLIC ACID 1 MG TAB PO SCH (07:52)
[2019-08-11] MEDS: CEFEPIME 2,000 MG in SYRINGE 7.5 ML IV SCH (10:19)
--- NOTE | 2019-08-11 10:25 | Urology Progress Note ---
Date of Service August 11, 2019 Assessment & Plan (1) Hematuria: (2) Recurrent UTI: Seems to be recovering well from his encephalopathy and UTI after recent stent change Continue Michel catheter Okay from a standpoint for discharge home and outpatient follow-up Subjective Subjectively feels well He feels that he is at his baseline is a somewhat anxious to go home Denies any flank pain Still has some hematuriaFoley catheter in place Review of Systems Review of Systems: All systems reviewed & are unremarkable except as noted in HPI & below Physical Exam Constitutional: well developed and well nourished Respiratory: no respiratory distress Cardiovascular: Extremities: no pedal edema Gastrointestinal (Abdomen): Inspection/Auscultation: abdomen normal to inspection Results & Data Vital Signs (Past 12 Hours) Vital Signs Temp Pulse Resp BP Pulse Ox 08/11/19 07:55 36.7 C 60 18 170/93 H 95 08/10/19 23:48 36.5 C 60 18 154/72 H 96 PG Care Time/CCT Total # of Minutes Spent Total Time Spent with Patient: Total time spent is greater than 50% in coordination of care (as documented) at patient's floor/unit and/or counseling patient: Coding Level of Care Code 13855 Subseq Hosp Care Lvl 2 Diagnoses Hematuria R31.0 Hematuria type: gross Recurrent UTI N39.0 (1) Hematuria Hematuria type: gross Qualified Code(s): R31.0 - Gross hematuria
[2019-08-11] MEDS: CITALOPRAM 20 MG TAB PO SCH (11:35)
[2019-08-11] MEDS: SIMVASTATIN 80 MG TAB PO SCH (21:55)
[2019-08-11] MEDS: LEVOTHYROXINE SODIUM 100 MCG TABLET PO SCH (21:55)
[2019-08-11] MEDS: TAMSULOSIN HCL 0.4 MG CAP PO SCH (21:56)
[2019-08-11] MEDS: GABAPENTIN 300 MG CAP PO SCH (21:56)
[2019-08-11] MEDS: DONEPEZIL HCL 10 MG TAB PO SCH (21:57)
--- NOTE | 2019-08-11 22:07 | Communication Note ---
Date of Service: August 11, 2019 Called to evaluate patient secondary to extreme abdominal pain and continued hematuria. On evaluation patient is slightly more confused than our first inter action two nights ago and he is having what he calls 30 out of 10 abdominal pain. On examination his abdomen is only moderately tender but much more firm than my previous exam two days ago. CT abdomen pelvis ordered. Discussed case over phone with radiologist from [facility] who say there is clear increase in left sided dilatation since previous study on 08/07. Will continue abx, reconsulted urology, nursing manually irrigating myles catheter and tamsulosin increased to .8 mg qhs. Will continue to hold apixaban. Patient is hemodynamically stable and afebrile but is in severe discomfort.
--- NOTE | 2019-08-11 22:35 | Hospitalist Progress Note ---
Date of Service August 11, 2019 Assessment & Plan (1) Acute metabolic encephalopathy: Presented with confusion, lethargy and fever at home on the same day as a bilateral ureteral stent exchange. Now much improved, seems back to baseline with mild cognitive impairment Likely caused by fever related to bacteremia as below Urinalysis not consistent with infection; Urine culture growing two Providencia but most likely colonizers given chronic indwelling Michel Blood cx now 1/2 with Provedencia different sensitivities from the two species in the urine-this is the cause of his encephalopathy and fever Initial chest x-ray with possible left lower lobe pneumonia but most likely was atelectasis as repeat chest x-ray PA and lateral repeated the next day is clear. No fever since admission. His leukocytosis is now resolved Seen by urology-does not feel there is an acute process going on, specifically no acute pyelonephritis -Continue abx as below (2) Gram-negative bacteremia: BCxs now with 1/2 Providencia, intermediate sens to Unasyn, Cefuroxime, and Imipenem Ur cx with two Providencia as above, different sensitivities from the species in the Blood Improving clinically, no further fevers No need to repeat BCxs -Changed to Cefepime based on cultures from Urine and Blood--> will treat for UTI and Bacteremia and would finish out 14 day course with IV Cefepime as he is allergic to FQs and to Bactrim (3) Fever: Fever at home to 101 as per hours after recent procedure -Work-up as above--> secondary to bacteremia No fevers since admission COVID was negative on 08/03 prior to his urological procedure (4) BPH w urinary obs/LUTS: Continue tamsulosin Continue chronic indwelling Michel catheter (5) Atrial fibrillation: With paced rhythm and sinus rhythm here on telemetry - Eliquis on hold for gross hematuria -Continue carvedilol -No need for further telemetry monitoring (6) Dyslipidemia: Continue statin, bethanechol (7) HTN (hypertension), benign: Blood pressures elevated -Continue antihypertensive meds with carvedilol, Imdur HCTZ on hold for GIOVANY (8) CAD (coronary artery disease), [place] coronary artery: -BMS to OM (1997). Caths also 2006, 2008 and 2013, no stents placed. Most recent cath in 2013 showed no angiographically significant stenosis other than 20-30% in-stent restenosis of OM. -Continue carvedilol 3.125 mg twice daily, Imdur 60 mg daily, simvastatin 80 mg hs, and ASA 81mg daily No chest pains here (9) Iron deficiency anemia: Hemoglobin with another slight drop likely acute blood loss anemia sec ondary to gross hematuria which is expected after ureteral stent exchange on Eliquis -Follow CBC Hemoglobin down further to 9.5 today -Continue iron supplementation, folic acid -transfuse if hgb<7-8 and continued gross bleeding (10) Cardiac pacemaker in situ: - implanted 2008 (/ SSS). [facility]. Last pacer check 07/2019 [facility] (11) CKD (chronic kidney disease) stage 3, GFR 30-59 ml/min: Creatinine baseline at 1.85 Now with GIOVANY with Lead Maintenance Technician up to 2.12 and now improving to 1.6 with holding HCTZ and giving 1L IVFs Could be from sepsis, ATN -no further fluids -Avoid nephrotoxins -renally dose meds when appropriate -follow BMP (12) Hematuria: As noted above, expected as per urology after ureteral stent exchange and also on Eliquis Increased amount on 08/09 but stable on 08/10 from previous -Observe for resolution and watch for clots in the Michel catheter-hand irrigate as needed as per Urol recommendations to nursing -continue to HOLD Eliquis (13) Hypothyroidism: TSH is 2.7 on recent labs -Continue home levothyroxine 100 mcg once daily (14) Hx of sleep apnea: Not on CPAP O2 as needed at night (15) Dementia: Supportive care, mild cognitive impairment -Continue home donepezil -Continue home memantine (16) Hypokalemia: replaced and resolved -Continue home dose of 10 mEq potassium chloride -Follow BMP (17) Aortic stenosis: Mild as per cardiology records on echocardiogram from 2016 -Follow as an outpatient with cardiology (18) DVT prophylaxis: - teds, HOLD Eliquis Dispo: From home. PT/OT evaluations completed and both are recommending residential facility. However, and daughter prefer that he, home with home health-even with doing home IV abx Plan for dc likely tomorrow if continues to do well and hgb stable Continue OOB to chair and ambulation with PT Admission and Anticipated Discharge Date Admission Date: August 08, 2019 Anticipated date of discharge: 08/12/19 Subjective Pt reports feeling much better today. Denies any abd pain or chest pain or SOB. He is eating well. Urine remains dark red with blood and ELiquis is on hold. Remains afebrile. Asking if he will get to go home soon. Was OOB to chair for a lot of the day. Review of Systems Review of Systems: All systems reviewed & are unremarkable except as noted in HPI & below Physical Exam Constitutional: WD/WN, vitals as above Eyes: + anicteric sclerae Neck: trachea midline, no thyromegaly Respiratory: normal respiratory effort, lungs clear to auscultation Cardiovascular: Rate/Rhythm: regular rate and regular rhythm Heart Sounds: + murmur (3/6 DANIELA heard best at the RUSB) Chest (Breasts): Chest: normal inspection of chest Gastrointestinal (Abdomen): normal bowel sounds, soft, nontender, no hepatosplenomegaly Musculoskeletal: Extremities: extremities normal to inspection; no cyanosis and no clubbing Skin: no rashes, warm and dry Neurologic: moves all extremities and awake; no focal motor deficits Psychiatric: A+Ox3, euthymic affect Genitourinary: dark red urine in Michel bag Lymphatic: no lymphedema Results & Data Results & Data ([facility]) Vital Signs (Past 12 Hours) Vital Signs Temp Pulse Resp BP Pulse Ox 08/11/19 16:00 36.5 C 53 L 18 165/83 H 98 Laboratory Results 08/11/19 08/11/19 08/11/19 Range/Units 11:38 06:01 06:01 WBC 9.74 (4.8-10.8) K/uL RBC 3.37 L (4.7-6.1) M/uL Hgb 9.5 L (14.0-18.0) g/dL Hct 29.5 L (42-52) % MCV 87.5 (80-100) fL MCH 28.2 (25-34) pg MCHC 32.2 (32-36) g/dL RDW Std Deviation 51.0 H (36.4-46.3) fL RDW Coeff of Curtis 15.7 H (11.5-14.5) % Plt Count 194 (130-400) K/uL MPV 10.1 (7.4-10.4) fL Sodium 139 (136-145) mmol/L Potassium 3.6 D (3.5-5.1) mmol/L Chloride 106 (98-107) mmol/L Carbon Dioxide 28 (21-32) mmol/L Anion Gap 5.0 (3-11) BUN 20 H (7-18) mg/dl Creatinine 1.63 H D (0.6-1.4) mg/dl Est Cr Clr Drug Dosing 34.5 ml/min Est GFR ( Amer) 45.4 Est GFR (Non-Af Amer) 39.2 BUN/Creatinine Ratio 12.0 (10-20) Glucose 85 (70-99) mg/dl POC Glucose 158 H (70-99) mg/dl Calcium 8.9 (8.5-10.1) mg/dl Magnesium 2.1 (1.8-2.4) mg/dl PG Care Time/CCT Total # of Minutes Spent Total Time Spent with Patient: Total time spent is greater than 50% in coordination of care (as documented) at patient's floor/unit and/or counseling patient: Coding Level of Care Code 41941 Subseq Hosp Care Lvl 3 Diagnoses Acute metabolic encephalopathy G93.41 Gram-negative bacteremia R78.81 Fever R50.9 BPH w urinary obs/LUTS N40.1; N13.8 Atrial fibrillation I48.91 Dyslipidemia E78.5 HTN (hypertension), benign I10 CAD (coronary artery disease), [place] coronary artery I25.10 [place] vs. transplanted heart: [place] heart Associated angina: without angina Iron deficiency anemia D50.9 Cardiac pacemaker in situ Z95.0 CKD (chronic kidney disease) stage 3, GFR 30-59 ml/min N18.3 Hematuria R31.0 Hematuria type: gross Hypothyroidism E03.9 Hypothyroidism type: acquired Hx of sleep apnea Z86.69 Dementia F03.90 Hypokalemia E87.6 Aortic stenosis I35.0 DVT prophylaxis Z29.9 (1) CAD (coronary artery disease), [place] coronary artery [place] vs. transplanted heart: [place] heart Associated angina: without angina Qualified Code(s): I25.10 - Atherosclerotic heart disease of [place] coronary artery without angina pectoris (2) Hematuria Hematuria type: gross Qualified Code(s): R31.0 - Gross hematuria (3) Hypothyroidism Hypothyroidism type: acquired Qualified Code(s): E03.9 - Hypothyroidism, unspecified
[2019-08-12] MEDS: TRAMADOL HCL 50 MG TABLET PO PRN ×3 (00:56→12:38)
[2019-08-12] MEDS ORDERED: TAMSULOSIN HCL 0.4 MG CAP PO ONE (05:45)
--- NOTE | 2019-08-12 06:52 | CT Scan Report ---
CT abd pelvis wo con CT DOSE: 817.90 mGy.cm HISTORY: "30/10" Abdominal pain with firm abdomen TECHNIQUE: Multiaxial CT images of the abdomen and pelvis were performed without contrast. A dose lo wering technique was utilized adhering to the principles of ALARA. COMPARISON STUDY: 08/08/2019 FINDINGS: Bilateral ureteral stents are again noted. Persistent left hydronephrosis. Improved right p erinephric infiltrative change. Mildly progressive left perinephric infiltrative change. Bowel pattern is nonobstructive. Prior cholecystectomy. IMPRESSION: 1. Interval left renal perinephric infiltrative change raising the possibility of pyelonephritis. 2. Bilateral ureteral stents unchanged in location. 3. Improved right perinephric infiltrative process. 4. Left kidney remains hydronephrotic. ACT 112: Negative or not required by law. The above report was generated using voice recognition software. It may contain grammatical, syntax or spelling errors. Electronically signed by: Trip Ramirez M.D. 08/12/2019 6:51 AM
[2019-08-12 07:45] LABS: Basophils # (auto) 0.02 K/uL (0-0.2); Basophils % (auto) 0.2 %; Eosinophils # (auto) 0.03 K/uL (0-0.5); Eosinophils % (auto) 0.2 %; Hemoglobin 9.9 g/dL (14.0-18.0); Immature Granulocytes # (auto) 0.03 K/uL (0.00-0.02); Immature Granulocytes % (auto) 0.2 %; Lymphocytes # (auto) 1.49 K/uL (1.2-3.4); Lymphocytes % (auto) 11.6 %; Mean Corpuscular Hemoglobin 27.9 pg (25-34); Mean Corpuscular Hgb Conc 31.9 g/dL (32-36); Mean Corpuscular Volume 87.3 fL (80-100); Mean Platelet Volume 10.1 fL (7.4-10.4); Monocytes # (auto) 1.57 K/uL (0.11-0.59); Monocytes % (auto) 12.3 %; Neutrophils # (auto) 9.66 K/uL (1.4-6.5); Neutrophils % (auto) 75.5 %; Platelet Count 216 K/uL (130-400); RDW Coefficient of Variation 15.4 % (11.5-14.5); RDW Standard Deviation 49.8 fL (36.4-46.3); Red Blood Count 3.55 M/uL (4.7-6.1)
[2019-08-12 08:08] LABS: BUN Creatinine Ratio 11.3 (10-20); Calcium 8.5 mg/dl (8.5-10.1); Creatinine Clr Calc Pharmacy 26.1 ml/min; Est GFR (African American) 33.6; Potassium 3.8 mmol/L (3.5-5.1)
[2019-08-12] MEDS: FERROUS SULFATE 325 MG TAB PO SCH ×2 (09:05→17:46)
[2019-08-12] MEDS: carvediloL 3.125 MG TAB PO SCH ×2 (09:05→20:57)
[2019-08-12] MEDS: ASPIRIN 81 MG ECTAB PO SCH (09:07)
[2019-08-12] MEDS: MEMANTINE HCL 10 MG TAB PO SCH ×2 (09:07→20:54)
[2019-08-12] MEDS: FOLIC ACID 1 MG TAB PO SCH (09:07)
[2019-08-12] MEDS: POTASSIUM CHLORIDE 10 MEQ TABCR PO SCH (09:07)
[2019-08-12] MEDS: ISOSORBIDE MONO EXTENDED REL 60 MG TABCR PO SCH (09:07)
[2019-08-12] MEDS: BETHANECHOL CHL 25 MG TAB PO SCH ×4 (09:07→20:57)
[2019-08-12] MEDS: SODIUM CHLORIDE 0.9% 1000ML 1,000 ML IV SCH ×2 (09:13→19:50)
[2019-08-12] MEDS: CEFEPIME 2,000 MG in SYRINGE 7.5 ML IV SCH (09:13)
--- NOTE | 2019-08-12 11:55 | Urology Progress Note ---
Date of Service August 12, 2019 Assessment & Plan (1) Hydronephrosis: Hydronephrosis s/p b/l stent exchange earlier this week - CT reviewed in detail - has persistent hydro, but stents are appropriately positioned Overall, I do think there is a chance he is experiencing some clot obstruction of his left ureter. I doubt we will see full resoluton of the left hydro at any stage, but I wonder if he is passing clot around the stent I think it is premature to exchange his L stent again now, but I will make him NPO at [place] in case that determination changes overnight Lower abdominal pressure may be bladder spasms/intermittent clot obstruction - but his bladder is quite empty on CT - so no need for intervention, etc Flush catheter PRN Cont supportive care w/ IVF and Abx overnight - hydration can help clear clot from the left ureter and alleviate any related obstruction, etc Will continue to follow closely Subjective s/p cysto and stent exchange earlier this week complicated by encephalopathy post op - had been progressing well yesterday, but seems to have lost some ground today complaining of suprapubic pain now some left flank pain no nausea no fevers reports that his catheter stopped up a bit a few times overnight Physical Exam Constitutional: well developed and well nourished somewhat uncomfortable appearing Neck: neck nontender Respiratory: normal respiratory effort; no respiratory distress and does not use accessory muscles Cardiovascular: Rate/Rhythm: regular rate Vessels: radial pulses present Extremities: no edema Gastrointestinal (Abdomen): Inspection/Auscultation: abdomen normal to inspection Percussion/Palpation: + abdomen tender (lower abd (suprapubic area); mild tenderness on the left flank) and abdomen soft; no guarding Musculoskeletal: Head/Neck/Chest: normocephalic and head atraumatic Extremities: extremities normal to inspection Skin: no rashes and no lesions Trauma: no evidence of skin trauma Neurologic: awake; not obtunded Speech / Cognition: normal speech Motor/Sensory: no tremor Psychiatric: Orientation: alert and oriented x 3 Genitourinary: + CVA tenderness myles with dark urine - some clots Lymphatic: no lymphadenopathy Results & Data Vital Signs (Past 12 Hours) Vital Signs Temp Pulse Resp BP Pulse Ox 08/12/19 07:38 36.8 C 64 16 155/77 H 93 08/12/19 03:07 37.2 C 71 18 139/70 91 PG Care Time/CCT Total # of Minutes Spent Total Time Spent with Patient: Total time spent is greater than 50% in coordination of care (as documented) at patient's floor/unit and/or counseling patient: Coding Level of Care Code 21749 Subseq Hosp Care Lvl 2 Diagnoses Hydronephrosis N13.30 Hydronephrosis type: unspecified (1) Hydronephrosis Hydronephrosis type: unspecified Qualified Code(s): N13.30 - Unspecified hydronephrosis
[2019-08-12] MEDS: CITALOPRAM 20 MG TAB PO SCH (12:38)
--- NOTE | 2019-08-12 18:56 | Hospitalist Progress Note ---
Date of Service August 12, 2019 Assessment & Plan (1) Acute metabolic encephalopathy: Presented with confusion, lethargy and fever at home on the same day as a bilateral ureteral stent exchange. Now much improved, seems back to baseline with mild cognitive impairment Likely was caused by fever related to bacteremia as below Urinalysis not consistent with infection; Urine culture growing two Providencia but most likely colonizers given chronic indwelling Michel, however have opted to treat due to significant risk of infection Blood cx now 1/2 with Providencia different sensitivities from the two species in the urine-this is the cause of his encephalopathy and fever Initial chest x-ray with possible left lower lobe pneumonia but most likely was atelectasis as repeat chest x-ray PA and lateral repeated the next day is clear. No fever since admission. His leukocytosis is now resolved Seen by urology-initially did not feel there is an acute process going on, specifically no acute pyelonephritis, however now urology feels that this could be pyelonephritis -Continue abx as below (2) Gram-negative bacteremia: BCxs now with 1/2 Providencia, intermediate sens to Unasyn, Cefuroxime, and Imipenem Ur cx with two Providencia as above, different sensitivities from the species in the Blood Improving clinically, no further fevers although WBC count up today likely secondary to increase in pain and increased amount of inflammatory lesion around left kidney on imaging No need to repeat BCxs -Continue cefepime based on cultures from Urine and Blood--> will treat for UTI and Bacteremia and would finish out 14 day course with IV Cefepime as he is allergic to FQs and to Bactrim -Urology seen today and will make n.p.o. after midnight in case pain and clots do not improve with IV fluids and continued pain control-May need to fix posi tion of ureteral stent (3) Fever: Fever at home to 101 as per hours after recent procedure, none since admission -Work-up as above--> secondary to bacteremia No fevers since admission COVID was negative on 08/03 prior to his urological procedure (4) BPH w urinary obs/LUTS: Continue tamsulosin Continue chronic indwelling Michel catheter With chronic hydronephrosis requiring bilateral ureteral stents, left greater than right (5) Atrial fibrillation: With paced rhythm and sinus rhythm here on telemetry - Eliquis remains on hold for gross hematuria -Continue carvedilol -No need for further telemetry monitoring (6) Dyslipidemia: Continue statin, bethanechol (7) HTN (hypertension), benign: Blood pressures improved -Continue antihypertensive meds with carvedilol, Imdur HCTZ on hold for GIOVANY (8) CAD (coronary artery disease), [place] coronary artery: -BMS to OM (1997). Caths also 2006, 2008 and 2013, no stents placed. Most recent cath in 2013 showed no angiographically significant stenosis other than 20-30% in-stent restenosis of OM. -Continue carvedilol 3.125 mg twice daily, Imdur 60 mg daily, simvastatin 80 mg hs, and ASA 81mg daily No chest pains here (9) Iron deficiency anemia: Hemoglobin with slight drop likely acute blood loss anemia secondary to gross hematuria which is expected after ureteral stent exchange on Eliquis -Follow CBC Hemoglobin stable to improved at 9.9 today -Continue iron supplementation, folic acid -transfuse if hgb<7-8 and continued gross bleeding (10) Cardiac pacemaker in situ: - implanted 2008 (03/[address] [facility]. Last pacer check 07/2019 [facility] (11) CKD (chronic kidney disease) stage 3, GFR 30-59 ml/min: Creatinine baseline at 1.85 Now with GIOVANY with Chronometer Adjuster back up again to 2.09 likely secondary to increased clot formation and obstruction with possibly slightly worsening left hydronephrosis Could be from sepsis, ATN initially -Restart normal saline with IV fluids -Avoid nephrotoxins -renally dose meds when appropriate -follow BMP (12) Hematuria: As noted above, expected as per urology after ureteral stent exchange and also on Eliquis Worsening overnight and with this more pain and continued severe left hydronephrosis -Hold aspirin, holding Eliquis -Observe for resolution and watch for clots in the Michel catheter-hand irrigate as needed as per Urol recommendations to nursing -May need repeat procedure tomorrow if not improving -Follow CBC (13) Hypothyroidism: TSH is 2.7 on recent labs -Continue home levothyroxine 100 mcg once daily (14) Hx of sleep apnea: Not on CPAP O2 as needed at night (15) Dementia: Supportive care, mild cognitive impairment -Continue home donepezil -Continue home memantine (16) Hypokalemia: replaced and resolved -Continue home dose of 10 mEq potassium chloride -Follow BMP (17) Aortic stenosis: Mild as per cardiology records on echocardiogram from 2016 -Follow as an outpatient with cardiology (18) DVT prophylaxis: - JANET addison Dispo: From home. PT/OT evaluations completed and both are recommending [facility]pc facility. However, and daughter prefer that he, home with home health-not ready for discharge Continue OOB to chair and ambulation with PT Admission and Anticipated Discharge Date Admission Date: August 08, 2019 Subjective Patient had severe pain overnight in the abdomen and left flank. Repeat imaging was reviewed and I discussed the case with urology. He had increased amount of bleeding as well as per nursing staff. He is now more comfortable tramadol but still complains of some left lower quadrant abdominal pain. He denies chest pain or shortness of breath. Remains afebrile. Review of Systems Review of Systems: All systems reviewed & are unremarkable except as noted in HPI & below Physical Exam Constitutional: WD/WN, vitals as above Eyes: + anicteric sclerae Neck: trachea midline, no thyromegaly Respiratory: normal respiratory effort, lungs clear to auscultation Cardiovascular: Rate/Rhythm: regular rate and regular rhythm Heart Sounds: + murmur (3/6 DANIELA heard best at the RUSB) Chest (Breasts): Chest: normal inspection of chest Gastrointestinal (Abdomen): normal bowel sounds, soft, nontender, no hepatosplenomegaly Musculoskeletal: Extremities: extremities normal to inspection; no cyanosis and no clubbing Skin: no rashes, warm and dry Neurologic: moves all extremities and awake; no focal motor deficits Psychiatric: A+Ox3, euthymic affect Genitourinary: Michel catheter with dark red urine Lymphatic: no lymphedema Results & Data Results & Data ([facility]) Vital Signs (Past 12 Hours) Vital Signs Temp Pulse Resp BP Pulse Ox 08/12/19 14:50 36.8 C 63 20 109/71 92 08/12/19 07:38 36.8 C 64 16 155/77 H 93 Laboratory Results Labs reviewed BC count up to 12, hemoglobin stable to improved at 9.9, creatinine elevated at 2.09 from previous PG Care Time/CCT Total # of Minutes Spent Total Time Spent with Patient: Total time spent is greater than 50% in coordination of care (as documented) at patient's floor/unit and/or counseling patient: Coding Level of Care Code 02687 Subseq Hosp Care Lvl 3 Diagnoses Acute metabolic encephalopathy G93.41 Gram-negative bacteremia R78.81 Fever R50.9 BPH w urinary obs/LUTS N40.1; N13.8 Atrial fibrillation I48.91 Dyslipidemia E78.5 HTN (hypertension), benign I10 CAD (coronary artery disease), [place] coronary artery I25.10 Associated angina: without angina [place] vs. transplanted heart: [place] heart Iron deficiency anemia D50.9 Cardiac pacemaker in situ Z95.0 CKD (chronic kidney disease) stage 3, GFR 30-59 ml/min N18.3 Hematuria R31.0 Hematuria type: gross Hypothyroidism E03.9 Hypothyroidism type: acquired Hx of sleep apnea Z86.69 Dementia F03.90 Hypokalemia E87.6 Aortic stenosis I35.0 DVT prophylaxis Z29.9 (1) Hematuria Hematuria type: gross Qualified Code(s): R31.0 - Gross hematuria (2) Hypothyroidism Hypothyroidism type: acquired Qualified Code(s): E03.9 - Hypothyroidism, unspecified (3) CAD (coronary artery disease), [place] coronary artery Associated angina: without angina [place] vs. transplanted heart: [place] heart Qualified Code(s): I25.10 - Atherosclerotic heart disease of [place] coronary artery without angina pectoris
[2019-08-12] MEDS: DONEPEZIL HCL 10 MG TAB PO SCH (20:54)
[2019-08-12] MEDS: LEVOTHYROXINE SODIUM 100 MCG TABLET PO SCH (20:56)
[2019-08-12] MEDS: GABAPENTIN 300 MG CAP PO SCH (20:56)
[2019-08-12] MEDS: SIMVASTATIN 80 MG TAB PO SCH (20:56)
[2019-08-12] MEDS ORDERED: TAMSULOSIN HCL 0.4 MG CAP PO SCH (21:00)
[2019-08-13] MEDS: TRAMADOL HCL 50 MG TABLET PO PRN ×2 (00:05→10:05)
[2019-08-13] MEDS: SODIUM CHLORIDE 0.9% 1000ML 1,000 ML IV SCH ×2 (06:05→16:33)
[2019-08-13 06:41] LABS: Basophils # (auto) 0.01 K/uL (0-0.2); Basophils % (auto) 0.1 %; Eosinophils # (auto) 0.18 K/uL (0-0.5); Hematocrit (blood only) 26.3 % (42-52); Hemoglobin 8.4 g/dL (14.0-18.0); Immature Granulocytes # (auto) 0.03 K/uL (0.00-0.02); Immature Granulocytes % (auto) 0.3 %; Lymphocytes # (auto) 1.59 K/uL (1.2-3.4); Lymphocytes % (auto) 17.7 %; Mean Corpuscular Hemoglobin 28.3 pg (25-34); Mean Corpuscular Hgb Conc 31.9 g/dL (32-36); Mean Corpuscular Volume 88.6 fL (80-100); Mean Platelet Volume 10.2 fL (7.4-10.4); Monocytes # (auto) 1.27 K/uL (0.11-0.59); Monocytes % (auto) 14.1 %; Neutrophils # (auto) 5.92 K/uL (1.4-6.5); Neutrophils % (auto) 65.8 %; Platelet Count 182 K/uL (130-400); RDW Coefficient of Variation 15.9 % (11.5-14.5); RDW Standard Deviation 52.3 fL (36.4-46.3); Red Blood Count 2.97 M/uL (4.7-6.1)
[2019-08-13 07:17] LABS: BUN Creatinine Ratio 14.5 (10-20); Calcium 8.4 mg/dl (8.5-10.1); Creatinine Clr Calc Pharmacy 27.7 ml/min; Est GFR (African American) 36.1; Est GFR (Non-African American) 31.2; Potassium 3.9 mmol/L (3.5-5.1)
--- NOTE | 2019-08-13 09:10 | Urology Progress Note ---
Date of Service August 13, 2019 Assessment & Plan (1) Hydronephrosis: Hydronephrosis At this stage I think we should avoid any intervention as I am uncertain that this will overly benefit him We will continue to follow conservatively I will advance his diet Certainly if things moving the wrong direction we can revisit this plan Subjective Subjectively improved today He reports much less left flank pain He still does have some lower abdominal pain His urine is more clear today than yesterday His labs have improved Review of Systems Review of Systems: All systems reviewed & are unremarkable except as noted in HPI & below Physical Exam Physical Exam: No CVA tenderness on deep palpation, minimal suprapubic tenderness on deep palpation Catheter with blood-tinged urine Constitutional: well developed and well nourished Respiratory: no respiratory distress Cardiovascular: Extremities: no pedal edema Gastrointestinal (Abdomen): Inspection/Auscultation: abdomen normal to inspection Results & Data Vital Signs (Past 12 Hours) Vital Signs Temp Pulse Resp BP Pulse Ox 08/13/19 07:03 36.6 C 52 L 16 117/71 94 08/13/19 00:15 36.6 C 57 L 17 122/77 93 PG Care Time/CCT Total # of Minutes Spent Total Time Spent with Patient: Total time spent is greater than 50% in coordination of care (as documented) at patient's floor/unit and/or counseling patient: Coding Level of Care Code 37540 Subseq Hosp Care Lvl 2 Diagnoses Hydronephrosis N13.30 Hydronephrosis type: unspecified (1) Hydronephrosis Hydronephrosis type: unspecified Qualified Code(s): N13.30 - Unspecified hydronephrosis
[2019-08-13] MEDS: BETHANECHOL CHL 25 MG TAB PO SCH ×4 (09:57→21:26)
[2019-08-13] MEDS: MEMANTINE HCL 10 MG TAB PO SCH ×2 (09:58→21:25)
[2019-08-13] MEDS: POTASSIUM CHLORIDE 10 MEQ TABCR PO SCH (09:58)
[2019-08-13] MEDS: ISOSORBIDE MONO EXTENDED REL 60 MG TABCR PO SCH (09:58)
[2019-08-13] MEDS: FERROUS SULFATE 325 MG TAB PO SCH ×2 (09:58→17:49)
[2019-08-13] MEDS: FOLIC ACID 1 MG TAB PO SCH (09:58)
[2019-08-13] MEDS: carvediloL 3.125 MG TAB PO SCH ×3 (09:58→21:24)
[2019-08-13] MEDS: CEFEPIME 1,000 MG in SYRINGE 0 ML IV SCH (10:57)
[2019-08-13] MEDS: CITALOPRAM 20 MG TAB PO SCH (10:57)
--- NOTE | 2019-08-13 13:34 | Hospitalist Progress Note ---
Date of Service August 13, 2019 Assessment & Plan (1) Acute metabolic encephalopathy: Presented with confusion, lethargy and fever at home on the same day as a bilateral ureteral stent exchange. Now much improved, seems back to baseline with mild cognitive impairment Likely was caused by fever related to bacteremia as below Urinalysis on admission was not consistent with infection; Urine culture growing two Providencia but most likely colonizers given chronic indwelling Michel, however have opted to treat due to significant risk of infection Blood cx here with 1/2 with Providencia with different sensitivities from the two species in the urine-this is the cause of his encephalopathy and fever Initial chest x-ray with possible left lower lobe pneumonia but most likely was atelectasis as repeat chest x-ray PA and lateral repeated the next day is clear. No fever since admission. His leukocytosis is now resolved Seen by urology-initially did not feel there is an acute process going on, specifically no acute pyelonephritis, however now urology feels that this could be pyelonephritis -Continue abx as below (2) Gram-negative bacteremia: BCxs now with 1/2 Providencia, intermediate sens to Unasyn, Cefuroxime, and Imipenem Ur cx with two Providencia as above, different sensitivities from the species in the Blood Improving clinically, no further fevers and leukocytosis now resolved No need to repeat BCxs -Continue cefepime based on cultures from Urine and Blood--> will treat for UTI and Bacteremia and would finish out 14 day course with IV Cefepime as he is allergic to FQs and to Bactrim -Urology following and as he is improving today with less pain and less hematuria, he does not need a procedure to replace the stent (3) Fever: Fever at home to 101 as per hours after recent procedure, none since admission -Work-up as above--> secondary to bacteremia No fevers since admission COVID was negative on 08/03 prior to his urological procedure (4) BPH w urinary obs/LUTS: Continue tamsulosin Continue chronic indwelling Michel catheter With chronic hydronephrosis requiring bilateral ureteral stents, left greater than right (5) Atrial fibrillation: With paced rhythm and sinus rhythm here on telemetry - Eliquis remains on hold for gross hematuria -Continue carvedilol -No need for further telemetry monitoring (6) Dyslipidemia: Continue statin, bethanechol (7) HTN (hypertension), benign: Blood pressures improved -Continue antihypertensive meds with carvedilol, Imdur HCTZ on hold for GIOVANY (8) CAD (coronary artery disease), [place] coronary artery: -BMS to OM (1997). Caths also 2006, 2008 and 2013, no stents placed. Most recent cath in 2013 showed no angiographically significant stenosis other than 20-30% in-stent restenosis of OM. -Continue carvedilol 3.125 mg twice daily, Imdur 60 mg daily, simvastatin 80 mg hs, and ASA 81mg daily No chest pains here (9) Iron deficiency anemia: Hemoglobin with another drop today secondary to acute blood loss anemia secondary to gross hematuria which is expected after ureteral stent exchange on Eliquis -Follow CBC Hemoglobin down to 8.4 today but also is getting IV fluids and may be some hemodilution all component -Continue iron supplementation, folic acid -transfuse if hgb<7-8 and continued gross bleeding (10) Cardiac pacemaker in situ: - implanted 2008 (03/[address] [facility]. Last pacer check 07/2019 [facility] (11) CKD (chronic kidney disease) stage 3, GFR 30-59 ml/min: Creatinine baseline at 1.85 Now with GIOVANY with Storage Center Manager back up again to 2.09 likely secondary to increased clot formation and obstruction with possibly slightly worsening left hydronephrosis Received IV fluids and now creatinine is improved to 1.9 Could be from sepsis, ATN initially -Continue normal saline with IV fluids -Avoid nephrotoxins -renally dose meds when appropriate -follow BMP (12) Hematuria: As noted above, expected as per urology after ureteral stent exchange and also on Eliquis Was worse for several days with this more pain and continued severe left hydronephrosis Finally improving on 08/12 -Continue to hold aspirin, holding Eliquis -Observe for resolution and watch for clots in the Michel catheter-hand irrigate as needed as per Urol recommendations to nursing -No repeat procedure planned at this point as per urology as he is improving -Follow CBC (13) Hypothyroidism: TSH is 2.7 on recent labs -Continue home levothyroxine 100 mcg once daily (14) Hx of sleep apnea: Not on CPAP O2 as needed at night (15) Dementia: Supportive care, mild cognitive impairment -Continue home donepezil -Continue home memantine (16) Hypokalemia: replaced and resolved -Continue home dose of 10 mEq potassium chloride -Follow BMP (17) Aortic stenosis: Mild as per cardiology records on echocardiogram from 2016 -Follow as an outpatient with cardiology (18) DVT prophylaxis: - teds, HOLD Eliquis and all chemical anticoagulation Dispo: From home. PT/OT evaluations completed and both are recommending retirement facility. However, and daughter prefer that he, home with home health-not ready for discharge today but possibly tomorrow Discussed his care with his and daughter on the phone Continue OOB to chair and ambulation with PT Admission and Anticipated Discharge Date Admission Date: August 08, 2019 Subjective Patient feeling better today, less pain in the left side of abdomen and back, still requiring some tramadol. The blood in his urine is significantly improved from previous. He has no complaints. Denies chest pain or shortness of breath. States "you are all taking such good care of me." I discussed the case with his family on the phone. Review of Systems Review of Systems: All systems reviewed & are unremarkable except as noted in HPI & below Physical Exam Constitutional: WD/WN, vitals as above Eyes: + anicteric sclerae Neck: trachea midline, no thyromegaly Respiratory: normal respiratory effort, lungs clear to auscultation Cardiovascular: Rate/Rhythm: regular rate and regular rhythm Heart Sounds: + murmur (3/6 DANIELA heard best at the RUSB) Chest (Breasts): Chest: normal inspection of chest Gastrointestinal (Abdomen): normal bowel sounds, soft, nontender, no hepatosplenomegaly Musculoskeletal: Extremities: extremities normal to inspection; no cyanosis and no clubbing Skin: no rashes, warm and dry Neurologic: moves all extremities and awake; no focal motor deficits Genitourinary: Michel catheter bag and tubing with dark brown urine, no clots Results & Data Results & Data ([facility]) Vital Signs (Past 12 Hours) Vital Signs Temp Pulse Resp BP Pulse Ox 08/13/19 07:03 36.6 C 52 L 16 117/71 94 Laboratory Results 08/13/19 08/13/19 Range/Units 06:23 06:23 WBC 9.00 (4.8-10.8) K/uL RBC 2.97 L (4.7-6.1) M/uL Hgb 8.4 L (14.0-18.0) g/dL Hct 26.3 L (42-52) % MCV 88.6 (80-100) fL MCH 28.3 (25-34) pg MCHC 31.9 L (32-36) g/dL RDW Std Deviation 52.3 H (36.4-46.3) fL RDW Coeff of [place] 15.9 H (11.5-14.5) % Plt Count 182 (130-400) K/uL MPV 10.2 (7.4-10.4) fL Immature Gran % (Auto) 0.3 % Neut % (Auto) 65.8 % Lymph % (Auto) 17.7 % [place] % (Auto) 14.1 % Eos % (Auto) 2.0 % Baso % (Auto) 0.1 % Neut # (Auto) 5.92 (1.4-6.5) K/uL Lymph # (Auto) 1.59 (1.2-3.4) K/uL [place] # (Auto) 1.27 H (0.11-0.59) K/uL Eos # (Auto) 0.18 (0-0.5) K/uL Baso # (Auto) 0.01 (0-0.2) K/uL Immature Gran # (Auto) 0.03 H (0.00-0.02) K/uL Sodium 143 (136-145) mmol/L Potassium 3.9 (3.5-5.1) mmol/L Chloride 113 H (98-107) mmol/L Carbon Dioxide 28 (21-32) mmol/L Anion Gap 2.0 L (3-11) BUN 28 H (7-18) mg/dl Creatinine 1.97 H (0.6-1.4) mg/dl Est Cr Clr Drug Dosing 27.7 ml/min Est GFR ( Amer) 36.1 Est GFR (Non-Af Amer) 31.2 BUN/Creatinine Ratio 14.5 (10-20) Glucose 75 (70-99) mg/dl Calcium 8.4 L (8.5-10.1) mg/dl Specimen Hemolysis PG Care Time/CCT Total # of Minutes Spent Total Time Spent with Patient: Total time spent is greater than 50% in coordination of care (as documented) at patient's floor/unit and/or counseling patient: Coding Level of Care Code 76542 Subseq Hosp Care Lvl 3 Diagnoses Acute metabolic encephalopathy G93.41 Gram-negative bacteremia R78.81 Fever R50.9 BPH w urinary obs/LUTS N40.1; N13.8 Atrial fibrillation I48.91 Dyslipidemia E78.5 HTN (hypertension), benign I10 CAD (coronary artery disease), [place] coronary artery I25.10 [place] vs. transplanted heart: [place] heart Associated angina: without angina Iron deficiency anemia D50.9 Cardiac pacemaker in situ Z95.0 CKD (chronic kidney disease) stage 3, GFR 30-59 ml/min N18.3 Hematuria R31.0 Hematuria type: gross Hypothyroidism E03.9 Hypothyroidism type: acquired Hx of sleep apnea Z86.69 Dementia F03.90 Hypokalemia E87.6 Aortic stenosis I35.0 DVT prophylaxis Z29.9 (1) CAD (coronary artery disease), [place] coronary artery [place] vs. transplanted heart: [place] heart Associated angina: without angina Qualified Code(s): I25.10 - Atherosclerotic heart disease of [place] coronary artery without angina pectoris (2) Hematuria Hematuria type: gross Qualified Code(s): R31.0 - Gross hematuria (3) Hypothyroidism Hypothyroidism type: acquired Qualified Code(s): E03.9 - Hypothyroidism, unspecified
[2019-08-13] MEDS ORDERED: TAMSULOSIN HCL 0.4 MG CAP PO SCH (21:00)
[2019-08-13] MEDS: DONEPEZIL HCL 10 MG TAB PO SCH (21:24)
[2019-08-13] MEDS: GABAPENTIN 300 MG CAP PO SCH (21:26)
[2019-08-13] MEDS: LEVOTHYROXINE SODIUM 100 MCG TABLET PO SCH (21:26)
[2019-08-13] MEDS: SIMVASTATIN 80 MG TAB PO SCH (21:26)
[2019-08-14] MEDS: SODIUM CHLORIDE 0.9% 1000ML 1,000 ML IV SCH ×2 (03:15→11:59)
[2019-08-14] MEDS: TRAMADOL HCL 50 MG TABLET PO PRN (03:15)
[2019-08-14 06:04] LABS: Basophils # (auto) 0.02 K/uL (0-0.2); Basophils % (auto) 0.2 %; Eosinophils % (auto) 3.2 %; Hematocrit (blood only) 25.4 % (42-52); Hemoglobin 8.1 g/dL (14.0-18.0); Immature Granulocytes # (auto) 0.05 K/uL (0.00-0.02); Immature Granulocytes % (auto) 0.5 %; Lymphocytes # (auto) 1.72 K/uL (1.2-3.4); Lymphocytes % (auto) 18.3 %; Mean Corpuscular Hemoglobin 28.3 pg (25-34); Mean Corpuscular Hgb Conc 31.9 g/dL (32-36); Mean Corpuscular Volume 88.8 fL (80-100); Mean Platelet Volume 10.2 fL (7.4-10.4); Monocytes # (auto) 1.02 K/uL (0.11-0.59); Monocytes % (auto) 10.9 %; Neutrophils # (auto) 6.29 K/uL (1.4-6.5); Neutrophils % (auto) 66.9 %; Platelet Count 198 K/uL (130-400); RDW Coefficient of Variation 15.7 % (11.5-14.5); RDW Standard Deviation 51.6 fL (36.4-46.3); Red Blood Count 2.86 M/uL (4.7-6.1)
[2019-08-14 06:37] LABS: BUN Creatinine Ratio 18.4 (10-20); Calcium 8.5 mg/dl (8.5-10.1); Creatinine Clr Calc Pharmacy 32.1 ml/min; Est GFR (African American) 43.2; Est GFR (Non-African American) 37.3; Potassium 4.1 mmol/L (3.5-5.1)
--- NOTE | 2019-08-14 08:42 | Urology Progress Note ---
Date of Service August 14, 2019 Assessment & Plan (1) Hydronephrosis: Suspected infection of the kidneyimproving with antibiotics, hydration, time His urine has cleared At present, no need to entertain intervention Labs improvingleukocytosis seems to have resolved Creatinine 1.7 (close to baseline) Hopefully nearing a time when he can be discharged home Subjective Subjectively reports that he is feeling considerably better this morning His urine has cleared He denies any significant left flank pain He does still complain about some suprapubic discomfort Overall feels that he is improving Remains extremely pleasant to visit with Physical Exam Physical Exam: Urine clear in the tubing and catheter bag Constitutional: well developed and well nourished Respiratory: no respiratory distress Cardiovascular: Extremities: no pedal edema Gastrointestinal (Abdomen): Inspection/Auscultation: abdomen normal to inspection Results & Data Vital Signs (Past 12 Hours) Vital Signs Temp Pulse Resp BP BP Pulse Ox 08/14/19 07:16 36.7 C 62 16 139/77 92 08/13/19 23:09 36.6 C 80 16 136/73 93 PG Care Time/CCT Total # of Minutes Spent Total Time Spent with Patient: Total time spent is greater than 50% in coordination of care (as documented) at patient's floor/unit and/or counseling patient: Coding Level of Care Code 65218 Subseq Hosp Care Lvl 2 Diagnoses Hydronephrosis N13.30 Hydronephrosis type: unspecified (1) Hydronephrosis Hydronephrosis type: unspecified Qualified Code(s): N13.30 - Unspecified hydronephrosis
[2019-08-14] MEDS: FERROUS SULFATE 325 MG TAB PO SCH (09:07)
[2019-08-14] MEDS: carvediloL 3.125 MG TAB PO SCH (09:07)
[2019-08-14] MEDS: FOLIC ACID 1 MG TAB PO SCH (09:08)
[2019-08-14] MEDS: ISOSORBIDE MONO EXTENDED REL 60 MG TABCR PO SCH (09:09)
[2019-08-14] MEDS: POTASSIUM CHLORIDE 10 MEQ TABCR PO SCH (09:09)
[2019-08-14] MEDS: BETHANECHOL CHL 25 MG TAB PO SCH ×2 (09:10→12:00)
[2019-08-14] MEDS: MEMANTINE HCL 10 MG TAB PO SCH (09:10)
[2019-08-14] MEDS: CEFEPIME 1,000 MG in SYRINGE 0 ML IV SCH (09:33)
[2019-08-14] MEDS: CITALOPRAM 20 MG TAB PO SCH (12:00)
--- NOTE | 2019-08-14 13:58 | Discharge Summary ---
Date of Service August 14, 2019 Admission HPI Per Admitting Provider This is a 79-year-old male with past medical history of CAD, HTN, HLD, history of [place], A. fib on Eliquis, iron deficiency anemia, cardiac pacemaker, bilateral renal masses, hydronephrosis, chronic indwelling catheter for emptying issues, hypothyroidism who underwent bilateral ureteral stent exchange earlier today 08/[address] Medrano. Patient had a temperature at home of 100.4, felt weak, not quite himself, and had difficulty with small amounts of walking and became more confused. He denies that he was acutely short of breath, no cough. No known COVID19 contacts or recent travel/exposure. His daughter notes that his confusion is acute and that he typically is fully alert and oriented x3. He lives at home with his independently. Does not require any assistive devices for ambulation. He took all his morning medications today. He follows commands during my visit, but says things like "I love you" and "You're a very kind woman" at beside. Principal Diagnosis Septicemia, acute pyelonephritis, gross hematuria with acute blood loss anemia, acute kidney injury Discharge Exam Constitutional WD/WN, vitals as above Eyes + anicteric sclerae Neck trachea midline, no thyromegaly Respiratory normal respiratory effort, lungs clear to auscultation Cardiovascular Rate/Rhythm: regular rate and regular rhythm Heart Sounds: + murmur (3/6 DANIELA heard best at the RUSB) Chest (Breasts) Chest: normal inspection of chest Gastrointestinal (Abdomen) normal bowel sounds, soft, nontender, no hepatosplenomegaly Musculoskeletal Extremities: extremities normal to inspection; no cyanosis and no clubbing Skin no rashes, warm and dry Neurologic moves all extremities and awake; no focal motor deficits Psychiatric Orientation: alert, oriented to person, oriented to place and cooperative Genitourinary Michel catheter with clear yellow urine Lymphatic no lymphedema Discharge Data Allergies Allergy/AdvReac Type Severity Reaction Status Date / Time captopril Allergy Severe ANAPHYLAXIS Verified 08/08/19 15:05 Iodinated Contrast Media Allergy Severe ANAPHYLAXIS Verified 08/08/19 15:05 levofloxacin Allergy Severe ANAPHYLAXIS Verified 08/08/19 15:05 morphine Allergy Severe Anaphylaxis Verified 08/08/19 15:05 oxaprozin Allergy Severe ANAPHYLAXIS Verified 08/08/19 15:05 Sulfa (Sulfonamide Allergy Severe Anaphylaxis Verified 08/08/19 15:05 Antibiotics) torsemide Allergy Severe ANAPHYLAXIS Verified 08/08/19 15:05 hydrocodone Allergy Mild RASH Verified 08/08/19 15:05 Consultations 08/08/19 16:57 ED Decision to Admit Stat 08/08/19 18:38 Consult Case Management - Discharge Planning Routine Consult Urology Routine 08/10/19 07:39 Consult Case Management - Discharge Planning Routine 08/12/19 05:19 Consult Urology Routine Ordered Studies 08/08/19 15:03 CT abd pelvis wo con Stat CT head/brain wo con Stat 08/11/19 22:03 CT abd pelvis wo con Urgent Chest x-ray x2 Hospital Course (1) Acute metabolic encephalopathy: Presented with confusion, lethargy and fever at home on the same day as a bilateral ureteral stent exchange. Now much improved, seems back to baseline with mild cognitive impairment Likely was caused by fever related to bacteremia as below Urinalysis on admission was not consistent with infection, but urine culture growing two Providencia but most likely colonizers given chronic indwelling Fole y--> however have opted to treat due to significant infection and suspected acute pyelonephritis on imaging Blood cx here with 1/2 with Providencia with different sensitivities from the two species in the urine-this is the cause of his encephalopathy and fever Initial chest x-ray with possible left lower lobe pneumonia but most likely was atelectasis as repeat chest x-ray PA and lateral repeated the next day is clear. No fever since admission. His leukocytosis is now resolved Seen by urology-initially did not feel there is an acute process going on, specifically no acute pyelonephritis, however now urology feels that this is secondary to acute pyelonephritis on the left side -Continue abx as below (2) Gram-negative bacteremia: BCxs from 08/07 with 1/2 Providencia, intermediate sens to Unasyn, Cefuroxime, and Imipenem Ur cx with two Providencia as above, different sensitivities from the species in the Blood Significantly improved clinically, no further fevers and leukocytosis now resolved No need to repeat BCxs for gram-negative bacteremia as he is clinically improved -Continue cefepime based on cultures from Urine and Blood--> will treat for 14 day total course with IV Cefepime as he is allergic to FQs and to Bactrim-needs 7 more days after discharge with the final dose being on 08/21/2019 -Urology following-no repeat procedure was needed -Follow-up with urology as an outpatient within 2 weeks (3) Fever: Fever at home to 101 as per hours after recent procedure, none since admission -Work-up as above--> secondary to bacteremia No fevers since admission COVID was negative on 08/03 prior to his urological procedure (4) BPH w urinary obs/LUTS: Continue tamsulosin Continue chronic indwelling Michel catheter With chronic hydronephrosis requiring bilateral ureteral stents, left greater than right (5) Atrial fibrillation: With paced rhythm and sinus rhythm here on telemetry - Eliquis remains on hold for gross hematuria but okay to restart upon discharge as hematuria has resolved -Continue carvedilol (6) Dyslipidemia: Continue statin, bethanechol (7) HTN (hypertension), benign: Blood pressures improved -Continue antihypertensive meds with carvedilol, Imdur HCTZ on hold for GIOVANY can be restarted upon discharge (8) CAD (coronary artery disease), [place] coronary artery: -BMS to OM (1997). Caths also 2006, 2008 and 2013, no stents placed. Most recent cath in 2013 showed no angiographically significant stenosis other than 20-30% in-stent restenosis of OM. -Continue carvedilol 3.125 mg twice daily, Imdur 60 mg daily, simvastatin 80 mg hs, and ASA 81mg daily No chest pains here (9) Iron deficiency anemia: Hemoglobin with a drop to 8.1 but stable from previous, secondary to acute blood loss anemia from gross hematuria which is expected after ureteral stent exchange on Eliquis -Follow CBC in 2 days with home health -Continue iron supplementation, folic acid (10) Cardiac pacemaker in situ: - implanted 2008 (03/[address] [facility]. Last pacer check 07/2019 [facility] (11) CKD (chronic kidney disease) stage 3, GFR 30-59 ml/min: Creatinine baseline at 1.85 Here with GIOVANY with Control System Manager up to 2.09 likely secondary to increased clot formation and obstruction with possibly slightly worsening left hydronephrosis Received IV fluids and now creatinine is improved to 1.7 Likely also from sepsis, ATN initially -Treated with normal saline IV fluids -Avoid nephrotoxins -renally dose meds when appropriate -follow BMP in 2 days with home health -Okay to restart home HCTZ after discharge (12) Hematuria: As noted above, expected as per urology after ureteral stent exchange and also on Eliquis Was worse for several days with this more pain and continued severe left hydronephrosis Finally resolved on 08/13 -Okay to restart aspirin, and Eliquis as per my discussion with urology on the day of discharge -Follow CBC in 2 days with home health -Follow-up with urology on 08/23 as planned or sooner if hematuria returns (13) Hypothyroidism: TSH is 2.7 on recent labs -Continue home levothyroxine 100 mcg once daily (14) Hx of sleep apnea: Not on CPAP (15) Dementia: Supportive care, mild cognitive impairment -Continue home donepezil -Continue home memantine (16) Hypokalemia: replaced and resolved -Continue home dose of 10 mEq potassium chloride -Follow BMP as an outpatient (17) Aortic stenosis: Mild as per cardiology records on echocardiogram from 2016 -Follow as an outpatient with cardiology (18) DVT prophylaxis: - teds, held Eliquis and all chemical anticoagulation throughout the hospital to stay due to hematuria Dispo: From home. PT/OT evaluations completed and both were initially recommending alf facility. However, and daughter prefer that he, home with home health-repeat evaluation on the day of discharge showed that he was a bit stronger and was able to walk 18 feet x 2 with a rolling walker Rolling walker will be ordered for at home Home with home health Discussed his care with his and daughter on the phone Total Time Total Time Spent Total Time Spent (In Minutes): Greater than 30 minutes Total Time Includes: Examination of the Patient, Discharge Planning, Medication Reconciliation and Communication With Other Providers (Urology) Discharge Plan Discharge Items Patient Disposition: Home - Home Health Services Reason For Visit: FEVER Discharge Diagnosis: Acute pyelonephritis, septicemia, UTI, hematuria Condition on Discharge: Fair Activity: As commented below Bathing: No limitations Exercise/Sports: Gradually increase as tolerated Weightbearing: Full weightbearing Weightbearing Comment: With walker for assistance Non-emergency contact: Primary Care Provider and Urologist Call non-emergency contact if: you have any medication questions, your symptoms worsen, your pain is not controlled, your pain is worsening, your pain is unusual for you, your pain is concerning for you, you have a fever and your temperature is above 101 Follow-up/Referrals: Celina Saunders DO [Primary Care Provider] - (Please follow-up with Dr. Saunders within 1 to 2 weeks after discharge.) William Medrano DO [Physician] - (Please keep your already scheduled appointment with Dr. eMdrano for 08/23.) Diet: Heart Healthy Addtl Attending Provider Instructions: Please continue on the cefepime for your IV antibiotic once daily for 7 more days for the bacterial infection in your bloodstream and urine. The final day will be on 08/21/2019. Please check a CBC and CMP for blood work on 08/16/2019. The visiting nurse can draw this for you at the house. Please follow-up with Dr. Medrano as scheduled. If you develop worsening blood in the urine, severe abdominal or back pain, or recurrent fever, please call Dr. Medrano or return to the hospital. It is okay to restart your blood thinners at home. Pending Studies at Discharge: No Stand-Alone Forms: My [facility] Medications and DC Order Prescriptions: New acetaminophen 325 mg Tablet 650 mg PO Q4H PRN (Reason: pain) Qty: 30 RF: 0 cefepime 1 gram recon soln 1 gm IV Q24H 7 Days Qty: 7 RF: 0 Continued ferrous sulfate 325 mg (65 mg iron) tablet,delayed release (DR/EC) 325 mg PO BIDM Qty: 60 RF: 11 citalopram 10 mg tablet 10 mg PO QDL Qty: 30 RF: 5 memantine [Namenda] 10 mg tablet 10 mg PO BID 90 Days Qty: 180 RF: 0 donepezil 10 mg tablet 10 mg PO HS Qty: 90 RF: 1 folic acid 1 mg tablet 1 mg PO QAM Qty: 90 RF: 1 hydrochlorothiazide 25 mg tablet 12.5 mg PO QAM Qty: 45 RF: 1 levothyroxine 100 mcg tablet 100 mcg PO HS Qty: 90 RF: 1 simvastatin 80 mg tablet 80 mg PO HS Qty: 90 RF: 1 gabapentin 300 mg capsule 300 mg PO HS Qty: 90 RF: 2 tamsulosin 0.4 mg capsule 0.4 mg PO QPM Qty: 90 RF: 1 apixaban 5 mg tablet 5 mg PO BID Qty: 180 RF: 5 bethanechol chloride [Urecholine] 50 mg tablet 50 mg PO QID Qty: 90 RF: 0 potassium chloride 10 mEq capsule, extended release 10 meq PO DAILY 30 Days Qty: 30 RF: 0 nitroglycerin [Nitromist] 400 mcg/spray Aerosol,[place] 1 spray sublingual UD PRN (Reason: Chest Pain) RF: 0 aspirin [Aspir-81] 81 mg Tablet,Delayed Release (Dr/Ec) 81 mg PO QAM RF: 0 epinephrine [EpiPen] 0.3 mg/0.3 mL Auto-Injector 0.3 mg IM UD PRN (Reason: Allergic Reaction) RF: 0 isosorbide mononitrate 60 mg tablet extended release 24 hr 60 mg PO QAM RF: 0 carvedilol 3.125 mg tablet 3.125 mg PO BID RF: 0 Changed tramadol 50 mg tablet 50 mg PO TID PRN (Reason: pain) Qty: 60 RF: 1 Discharge Orders: Discharge Order (Routine); Ordered 08/14/19 Ordered By: Maryan Cook Admission Data Admit Date/Time: 08/08/19 17:20 Attending Provider: Maryan Cook Admit Provider: Ashvin Bloom Primary Care Provider: Celina Saunders Other Providers: Ashvin Bloom ; William Medrano ; Darien Mccabe Coding Level of Care Code D/C Day Management >30 mins Diagnoses Acute metabolic encephalopathy G93.41 Gram-negative bacteremia R78.81 Fever R50.9 BPH w urinary obs/LUTS N40.1; N13.8 Atrial fibrillation I48.91 Dyslipidemia E78.5 HTN (hypertension), benign I10 CAD (coronary artery disease), [place] coronary artery I25.10 [place] vs. transplanted heart: [place] heart Associated angina: without angina Iron deficiency anemia D50.9 Cardiac pacemaker in situ Z95.0 CKD (chronic kidney disease) stage 3, GFR 30-59 ml/min N18.3 Hematuria R31.0 Hematuria type: gross Hypothyroidism E03.9 Hypothyroidism type: acquired Hx of sleep apnea Z86.69 Dementia F03.90 Hypokalemia E87.6 Aortic stenosis I35.0 DVT prophylaxis Z29.9
--- NOTE | 2019-08-22 12:46 | Coding Query ---
SEPSIS There is documentation of Bacteremia, Septicemia and Sepsis in the record and on Discharge Summary. Please clarify below. To promote full compliance with coding requirements relating to patient care, physician participation is requested in all cases of clinical coder uncertainty. Please assist us with the question(s) below: In responding to this query, please exercise your independent professional judgement. The fact that a question is asked does not imply that any particular answer is desired or expected. We appreciate your clarification on this issue. Throughout the medical record, you have clearly documented a localized infection and your patient has clinical evidence of a generalized sepsis or severe sepsis. The term urosepsis is a nonspecific entity and is coded as an UTI. If the patient has sepsis, severe sepsis, from an urinary source or some other source, please clarify in your response below. The medical record reflects the following clinical findings: (With dates as appropriate) (Body temperature of >38.3 C(101 F) or <36 C(96.8F), pulse >90/minute, respirations >20/minute, WBC count >12,000 or <4,000, altered mental status, significant edema or positive fluid balance, hyperglycemia without diabetes, hypotension, metabolic acidosis (elev. lactate level, anion gap or reduced blood pH), shock, positive blood culture (enter organism) ____ ()Bacteremia (Nonspecific laboratory finding of bacteria in the blood) Specify Organism () Present on Admission () Not present on admission () Unable to clinically determine (x) Septicemia (Systemic disease associated with the presence of pathogenic microorganisms in the blood): Specify Organism () Present on Admission () Not present on admission () Unable to clinically determine () Sepsis Specify Organism Specify Associated Condition/Diagnosis () Present on Admission () Not present on admission () Unable to clinically determine () Severe Sepsis (Sepsis associated with acute organ dysfunction) Specify Organism Specify Associated Condition/Diagnosis () Present on Admission () Not present on admission () Unable to clinically determine () Septic Shock (Severe sepsis with acute circulatory failure, unexplained by other causes) () Present on Admission () Not present on admission () Unable to clinically determine () Other, patient has: MTDD
--- NOTE | 2019-08-22 12:49 | Coding Query ---
CODING QUERY To promote full compliance with coding requirements relating to patient care, provider participation is requested in all cases of federal appellate clerk uncertainty. Please assist us with the question(s) below: Coding Question(s): The Discharge Summary documents Acute Pyelonephritis. Please specify below, in your clinical opinion. (x ) Acute Pyelonephritis is likely a complication resulting from the recent ureter stent procedure ( ) Acute Pyelonephritis is Not likely a complication resulting from the recent ureter stent procedure ( ) Other: Please Specify Physician's Response(s): Thank you Anne-Marie Bañuelos Principal Diagnosis: "that condition established after study, to be chiefly responsible for occasioning the admission of the patient to the hospital for care." Co-Existing Principal Diagnosis: "when two or more diagnoses equally meet the criteria for principal diagnosis as determined by the circumstances of admission, diagnostic work up, and/or therapy provided, and the Alphabetic Index, Tabular List, or another coding guideline does not provide sequencing direction, any one of the diagnoses may be sequenced first." "When the physician has documented what appears to be a current diagnosis in the body of the record, but has not included the diagnosis in the final diagnostic statement, the physician should be asked whether the diagnosis should be added." (Source Coding [facility] 2 QTR90. p3-4) FANNY
== END 2019-08-14 15:11 | disposition home health service (06) | DRG 856 ==
LOC: ED 13:13 → SUATTDRO 17:20 → 2N 17:20 → 3N 08-12 14:39

== ENCOUNTER 2019-10-24 23:51 | Inpatient (IN) ==
--- NOTE | 2019-10-25 00:14 | Emergency Department Note ---
Impression & Plan Acute pyelonephritis, Hydronephrosis, Abdominal pain, Acute kidney injury ED Provider Note NAME: HAYES KING AGE: 79 SEX: M : 1940 ARRIVES VIA: Ambulance INFORMANT: Patient, the prehospital personnel ED PROVIDER(S): Yaron Umana DO CHIEF COMPLAINT: Abdominal pain HPI: The patient is an 79-year-old male who presented to the emergency department for an evaluation of lower abdominal pain. The patient has had ongoing symptoms for the last few weeks. He has not been seen for this pain. He called 911 this evening for further evaluation of his abdominal pain. The patient suffers from underlying dementia and is quite confused about some of the details of the course of this abdominal pain. He does state that it is consistently been in the lower abdomen. He denies having any constipation. He has had no fever or vomiting. He states his pain is mild to moderate at this time and worsens with palpation over the lower abdomen or walking. He does have a chronic indwelling Michel which is draining. ROS: See above HPI for pertinent positives & negatives. A total of 10 systems reviewed and were otherwise negative. PAST MEDICAL HISTORY: See Below PAST SURGICAL HISTORY: See Below FAMILY HISTORY: See Below SOCIAL HISTORY: See Below HOME MEDICATIONS: See Below ALLERGIES: See Below VITALS: See Below PHYSICAL EXAMINATION: GENERAL: The patient is awake and alert. He is somewhat anxious appearing and looks uncomfortable. EYES: The conjunctivae are clear. The pupils are round and reactive. EARS, NOSE, MOUTH AND THROAT: The nose is without any evidence of any deformity. NECK: The neck is nontender and supple. RESPIRATORY: Normal respiratory effort is noted there is no evidence of wheezing rhonchi or rales CARDIOVASCULAR: Regular rhythm was noted to auscultation. Systolic murmur was suggested. GASTROINTESTINAL: The abdomen is mildly distended but soft. There is significant left lower quadrant tenderness to palpation. MUSCULOSKELETAL/EXTREMITIES: There is no evidence of gross deformity full range of motion is noted in the hips and shoulders. SKIN: There is no obvious evidence of any rash. Pedal edema was noted bilaterally. NEUROLOGIC: Patient is awake alert and oriented to person place but not time or situation. Strength was symmetric. MEDICAL DECISION MAKING: The patient is an 79-year-old male who presented to the emergency department for an evaluation of abdominal pain. The patient presented to the emergency department with his daughter. The patient has very significant dementia. Initially when the patient presented he was by himself and was very confused. CT the head was obtained that showed no acute disease. The patient did complain of left lower quadrant abdominal pain but it was very unclear how long this pain is been going on for. His daughter does provide additional information and states that he was seen by his official court reporter today because he has worsening kidney function. He has had poor intake recently. He does have a chronic indwelling Michel and has bilateral ureteral stents. The patient was treated with IV fluids and IV antibiotics in the emergency department. He was r eevaluated multiple times. I discussed the patient's laboratory and radiographic studies with him. Because of his findings I also discussed his case with the on-call [facility]. The patient was feeling much better on subsequent reevaluation. I did review the patient's previous urine cultures. Triage Nursing notes reviewed. Prior medical records reviewed Vital Signs: reviewed and remarkable for no significant abnormalities Differential diagnosis: Etiologies such as appendicitis, diverticulitis, obstruction, inflammatory bowel disease, renal colic, PUD, biliary pathology, pancreatitis, mesenteric ischemia, aortic pathology, infections, genitourinary, UTI, perforated viscus, as well as others were entertained. ER treatment provided: See below Diagnostics interpreted by me: ECG: EKG was obtained in the emergency department. My interpretation is atrial fibrillation at 70 bpm. There were no PVCs. Diffuse ST depressions with T wave flattening was noted. This was compared to a tracing from August 072019. No significant changes were noted. Cardiac Monitoring: An order was placed for continuous cardiac monitoring. The monitor shows a rate of 82 bpm with sinus sinus rhythm. Laboratory studies: As stated above and show below. Imaging studies: See below Consultation(s): 0220: The [facility] was notified about the patient. Past Med/Surg History Medical History Anxiety and depression Aortic stenosis Mild (MG 11 mmHg, UZMA 1.1 cm2) per 11/2015 ECHO Atrial fibrillation on Eliquis-F/U PCP BPH w urinary obs/LUTS CAD (coronary artery disease), [place] coronary artery S/P BMS to OM (1997). Caths also 2006, 2008 and 2013, no stents placed. Most recent cath in 2013 showed no angiographically significant stenosis other than 20-30% in-stent restenosis of OM. Cardiac pacemaker in situ Implanted 2008 (2/[address] [facility]. Last pacer check 07/2019 [facility] Chronic indwelling Michel catheter Chronic pain CKD (chronic kidney disease) stage 3, GFR 30-59 ml/min Dementia Dyslipidemia GERD (gastroesophageal reflux disease) controlled History of kidney stones History of SD (myocardial infarction) 1997 HTN (hypertension), benign Hx of gastric ulcer Hypothyroidism Iron deficiency anemia Sleep apnea NO DEVICE Surgical History H/O total knee replacement RIGHT/LEFT History of cardiac cath MULTIPLE WITH TOTAL 4 STENTS-LAST ONE 2 YRS AGO PH [facility] History of cataract surgery B/L History of lithotripsy History of lumbar fusion History of prostate surgery PARTIAL PROSTECTOMY History of thyroidectomy S/P placement of cardiac pacemaker 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 2016-PACER CHECK [facility] S/P TURP S/P ureteral stent placement Cysto, B/L RPG, right ureteroscopy, stent exchange: 07/06/18: LMA#5 at [facility]STO STENT EXCHANGE 11/2018 Family History Father Diabetes Mother Coronary heart disease Hypertension Brother Seizure Social History Smoking Status: Former smoker Tobacco Type: Cigarettes Second Hand Exposure: No; Hx Alcohol Use: No Hx Substance Use: No Preferred Language: Indonesian Communication Ability: Impaired Knowledge Architect Required: No Beliefs That Will Affect Care: None marital status: Current Living Situation: Spouse and Family Current Living Situation Comment: SPOUSE WHEELCHAIR BOUND/2 DAUGHTERS 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 How many Children do You have: 3 Feels Safe at Home: Yes Seatbelt Use: always Allergies Allergies Allergy/AdvReac Type Severity Reaction Status Date / Time captopril Allergy Severe ANAPHYLAXIS Verified 10/24/19 13:10 Iodinated Contrast Media Allergy Severe ANAPHYLAXIS Verified 10/24/19 13:10 levofloxacin Allergy Severe ANAPHYLAXIS Verified 10/24/19 13:10 morphine Allergy Severe Anaphylaxis Verified 10/24/19 13:10 oxaprozin Allergy Severe ANAPHYLAXIS Verified 10/24/19 13:10 Sulfa (Sulfonamide Allergy Severe Anaphylaxis Verified 10/24/19 13:10 Antibiotics) torsemide Allergy Severe ANAPHYLAXIS Verified 10/24/19 13:10 hydrocodone Allergy Mild RASH Verified 10/24/19 13:10 Home Meds Home Medications Medication Instructions Recorded Confirmed aspirin [Aspir-81] 81 mg PO QAM 06/05/18 10/25/19 epinephrine [EpiPen] 0.3 mg IM UD PRN 06/05/18 10/25/19 nitroglycerin [Nitromist] 1 spray SUBLINGUAL UD PRN 06/05/18 10/25/19 hydrochlorothiazide 12.5 mg PO DAILY 10/25/19 10/25/19 potassium chloride 10 meq PO DAILY 10/25/19 10/25/19 Previous Rx's Medication Instructions Recorded acetaminophen 650 mg PO Q4H PRN #30 tab 08/14/19 tramadol 50 mg tablet 50 mg PO TID PRN #60 tab 09/26/19 citalopram 10 mg tablet 10 mg PO DAILY #90 tab 10/03/19 apixaban 5 mg tablet 5 mg PO BID #180 tab 10/04/19 bethanechol chloride 50 mg tablet 50 mg PO QID #360 tab 10/04/19 bupropion HCl 100 mg tablet,12 hr 100 mg PO DAILY #90 ea 10/04/19 sustained-release carvedilol 3.125 mg tablet 3.125 mg PO BID #180 tab 10/04/19 donepezil 10 mg tablet 10 mg PO HS #90 tab 10/04/19 ferrous sulfate 325 mg (65 mg 325 mg PO BIDM #180 tab 10/04/19 iron) tablet,delayed release folic acid 1 mg tablet 1 mg PO QAM #90 tab 10/04/19 gabapentin 300 mg capsule 300 mg PO HS #90 cap 10/04/19 isosorbide mononitrate 60 mg 60 mg PO QAM #90 tab 10/04/19 tablet,extended release 24 hr levothyroxine 100 mcg tablet 100 mcg PO HS #90 tab 10/04/19 memantine 10 mg tablet 10 mg PO BID #180 tab 10/04/19 simvastatin 80 mg tablet 80 mg PO HS #90 tab 10/04/19 tamsulosin 0.4 mg capsule 0.4 mg PO QPM #90 cap 10/04/19 Results & Data (ED) Vital Signs Vital Signs - 24 hr 10/25/19 00:01 10/25/19 00:26 Temperature 36.7 C Temperature Source Oral Pulse Rate 70 Respiratory Rate 16 Respiratory Depth Normal Blood Pressure 134/68 Blood Pressure Mean 90 Blood Pressure Position Lying Pulse Oximetry 95 94 Oxygen Delivery Method Room Air Room Air Sepsis Recent Fever Within 48 Hours No Sepsis New/Unexplained Change in Mental Status No Sepsis Action Taken by Nursing No Action Required Home Medications Current Medication List: was personally reviewed by me Laboratory Data Attestation: I reviewed the patient's lab results. Result diagrams: 10/25/19 00:32 10/25/19 00:32 Lab Results 10/25/19 10/25/19 10/25/19 Range/Units 00:32 00:32 00:32 WBC 14.10 H (4.8-10.8) K/uL RBC 3.67 L (4.7-6.1) M/uL Hgb 10.9 L (14.0-18.0) g/dL Hct 33.3 L (42-52) % MCV 90.7 (80-100) fL MCH 29.7 (25-34) pg MCHC 32.7 (32-36) g/dL RDW Std Deviation 55.2 H (36.4-46.3) fL RDW Coeff of Curtis 16.4 H (11.5-14.5) % Plt Count 204 (130-400) K/uL MPV 10.0 (7.4-10.4) fL Immature Gran % (Auto) 0.1 % Neut % (Auto) 73.2 % Lymph % (Auto) 11.2 % [place] % (Auto) 15.3 % Eos % (Auto) 0.1 % Baso % (Auto) 0.1 % Neut # (Auto) 10.31 H (1.4-6.5) K/uL Lymph # (Auto) 1.58 (1.2-3.4) K/uL [place] # (Auto) 2.16 H (0.11-0.59) K/uL Eos # (Auto) 0.01 (0-0.5) K/uL Baso # (Auto) 0.02 (0-0.2) K/uL Immature Gran # (Auto) 0.02 (0.00-0.02) K/uL PT 12.7 H (9.0-12.0) Seconds INR 1.2 H (0.9-1.1) APTT 34.2 H (21.0-31.0) Seconds PTT Ratio 1.2 Sodium 138 (136-145) mmol/L Potassium 3.0 L (3.5-5.1) mmol/L Chloride 102 (98-107) mmol/L Carbon Dioxide 29 (21-32) mmol/L Anion Gap 7.0 (3-11) BUN 35 H (7-18) mg/dl Creatinine 2.29 H (0.6-1.4) mg/dl Est Cr Clr Drug Dosing 26.6 ml/min Est GFR ( Amer) 30.1 Est GFR (Non-Af Amer) 26.0 BUN/Creatinine Ratio 15.2 (10-20) Glucose 139 H (70-99) mg/dl Calcium 8.5 (8.5-10.1) mg/dl Magnesium 2.3 (1.8-2.4) mg/dl Total Bilirubin 0.6 (0.2-1) mg/dl AST 8 L (15-37) U/L ALT 9 L (12-78) U/L Alkaline Phosphatase 96 (45-117) U/L Total Creatine Kinase 37 L (39-308) U/L Troponin I < 0.015 (0-0.045) ng/ml Total Protein 7.6 (6.4-8.2) gm/dl Albumin 3.0 L (3.4-5.0) gm/dl Globulin 4.6 H (2.5-4.0) gm/dl Albumin/Globulin Ratio 0.7 L (0.9-2) TSH 1.210 (0.300-4.500) uIu/ml Urine Color Urine Appearance (Clear) Urine pH (4.5-7.5) Ur Specific [place] (1.000-1.030) Urine Protein (Negative) Urine Glucose (UA) (Negative) Urine Ketones (Negative) Urine Blood (Negative) Urine Nitrite (Negative) Urine Bilirubin (Negative) Urine Urobilinogen (Negative) Ur Leukocyte Esterase (Negative) Urine WBC (Auto) (0-5) /hpf Urine RBC (Auto) (0-4) /hpf U Hyaline Cast (Auto) (0-5) /lpf U Epithel Cells (Auto) (0-5) /lpf Urine Bacteria (Auto) (Negative) Triple Phos Crystals (None Prsent) Urine Yeast 10/25/19 Range/Units 01:33 WBC (4.8-10.8) K/uL RBC (4.7-6.1) M/uL Hgb (14.0-18.0) g/dL Hct (42-52) % MCV (80-100) fL MCH (25-34) pg MCHC (32-36) g/dL RDW Std Deviation (36.4-46.3) fL RDW Coeff of Curtis (11.5-14.5) % Plt Count (130-400) K/uL MPV (7.4-10.4) fL Immature Gran % (Auto) % Neut % (Auto) % Lymph % (Auto) % [place] % (Auto) % Eos % (Auto) % Baso % (Auto) % Neut # (Auto) (1.4-6.5) K/uL Lymph # (Auto) (1.2-3.4) K/uL [place] # (Auto) (0.11-0.59) K/uL Eos # (Auto) (0-0.5) K/uL Baso # (Auto) (0-0.2) K/uL Immature Gran # (Auto) (0.00-0.02) K/uL PT (9.0-12.0) Seconds INR (0.9-1.1) APTT (21.0-31.0) Seconds PTT Ratio Sodium (136-145) mmol/L Potassium (3.5-5.1) mmol/L Chloride (98-107) mmol/L Carbon Dioxide (21-32) mmol/L Anion Gap (3-11) BUN (7-18) mg/dl Creatinine (0.6-1.4) mg/dl Est Cr Clr Drug Dosing ml/min Est GFR ( Amer) Est GFR (Non-Af Amer) BUN/Creatinine Ratio (10-20) Glucose (70-99) mg/dl Calcium (8.5-10.1) mg/dl Magnesium (1.8-2.4) mg/dl Total Bilirubin (0.2-1) mg/dl AST (15-37) U/L ALT (12-78) U/L Alkaline Phosphatase (45-117) U/L Total Creatine Kinase (39-308) U/L Troponin I (0-0.045) ng/ml Total Protein (6.4-8.2) gm/dl Albumin (3.4-5.0) gm/dl Globulin (2.5-4.0) gm/dl Albumin/Globulin Ratio (0.9-2) TSH (0.300-4.500) uIu/ml Urine Color Yellow Urine Appearance Turbid A (Clear) Urine pH 8.5 H (4.5-7.5) Ur Specific [place] 1.016 (1.000-1.030) Urine Protein 2+ H (Negative) Urine Glucose (UA) Negative (Negative) Urine Ketones Negative (Negative) Urine Blood 3+ H (Negative) Urine Nitrite Positive A (Negative) Urine Bilirubin Negative (Negative) Urine Urobilinogen Negative (Negative) Ur Leukocyte Esterase 3+ H (Negative) Urine WBC (Auto) >30 H (0-5) /hpf Urine RBC (Auto) >30 H (0-4) /hpf U Hyaline Cast (Auto) 5-10 H (0-5) /lpf U Epithel Cells (Auto) 10-20 H (0-5) /lpf Urine Bacteria (Auto) 2+ H (Negative) Triple Phos Crystals Present A (None Prsent) Urine Yeast Not Reportable Administered Medications Discontinued Medications Sodium Chloride (Nss) 500 mls @ 999 mls/hr IV .Q31M FLEX Stop: 10/25/19 00:45 Last Infusion: 10/25/19 02:17 Dose: 0 mls/hr Documented by: [id number] Admin: 10/25/19 01:38 Dose: 999 mls/hr Documented by: [id number] Sodium Chloride (Nss 1000ml) 500 mls @ 999 mls/hr IV .Q31M ONE Stop: 10/25/19 01:34 Last Infusion: 10/25/19 02:17 Dose: 0 mls/hr Documented by: [id number] Admin: 10/25/19 01:38 Dose: 999 mls/hr Documented by: [id number] Imaging Data Attestation: I personally reviewed and interpreted this imaging study as follows: My Impression: 1 view chest x-ray was obtained in the emergency department. My interpretation is elevation of the left hemidiaphragm. There was no free air. No definite infiltrate was noted. Cardiac pacemaker was noted., No acute disease. This was compared to a chest x-ray from August 082019. No significant changes were noted. Radiologist's Impression: Preliminary Findings Only See Final Report For Complete Findings CT HEAD: No acute intracranial finding. No significant change from August 08, 2019. Radiologist: Broderick Robles MD Study ready at 01:19 and initial results transmitted at 01:33 Preliminary Findings Only See Final Report For Complete Findings CT ABDOMEN & PELVIS Without Contrast: COMPARISON: Previous exam August 11, 2019. FINDINGS: Sections through the lower lung bases demonstrate no acute findings. The unenhanced liver and pancreas are unremarkable. The gallbladder has been removed. Calcified granulomas are seen in the spleen. There is no adrenal enlargement. Bilateral ureteral stents remain in place. There is no longer air within the collecting system. There is no significant right hydronephrosis or hydroureter. There continues to be left hydronephrosis; however, it does not appear quite as severe as on the prior study. No evidence of ureteral calculi adjacent to the stents. Michel catheter within the bladder. No evidence of bowel obstruction. No free intraperitoneal air or fluid. IMPRESSION: Bilateral ureteral stents. Persistent but mildly improved severe hydronephrosis of left kidney. No acute findings. Radiologist: Broderick Robles MD Study ready at 01:36 and initial results transmitted at 01:50 Blood Pressure Blood Pressure Findings: Normal blood pressure Discharge Plan Visit Data Chief Complaint: Abdominal Pain Stated Complaint: ABDOMINAL PAIN ED Provider: Yaron Umana Discharge Problem: Acute pyelonephritis, Hydronephrosis, Abdominal pain, Acute kidney injury Patient Disposition: Being Evaluated by Hospitalist Condition: Good Forms Stand Alone Forms: My [facility] [employer] Prescriptions Prescriptions: No Action tramadol 50 mg tablet 50 mg PO TID PRN (Reason: pain) Qty: 60 RF: 1 citalopram 10 mg tablet 10 mg PO DAILY Qty: 90 RF: 1 apixaban 5 mg tablet 5 mg PO BID Qty: 180 RF: 1 bethanechol chloride [Urecholine] 50 mg tablet 50 mg PO QID Qty: 360 RF: 1 bupropion HCl 100 mg tablet sustained-release 12 hr 100 mg PO DAILY Qty: 90 RF: 1 carvedilol 3.125 mg tablet 3.125 mg PO BID Qty: 180 RF: 1 donepezil 10 mg tablet 10 mg PO HS Qty: 90 RF: 1 ferrous sulfate 325 mg (65 mg iron) tablet,delayed release (DR/EC) 325 mg PO BIDM Qty: 180 RF: 1 folic acid 1 mg tablet 1 mg PO QAM Qty: 90 RF: 1 levothyroxine 100 mcg tablet 100 mcg PO HS Qty: 90 RF: 1 isosorbide mononitrate 60 mg tablet extended release 24 hr 60 mg PO QAM Qty: 90 RF: 1 memantine [Namenda] 10 mg tablet 10 mg PO BID Qty: 180 RF: 1 tamsulosin 0.4 mg capsule 0.4 mg PO QPM Qty: 90 RF: 1 simvastatin 80 mg tablet 80 mg PO HS Qty: 90 RF: 1 gabapentin 300 mg capsule 300 mg PO HS Qty: 90 RF: 1 nitroglycerin [Nitromist] 400 mcg/spray Aerosol,[place] 1 spray sublingual UD PRN (Reason: Chest Pain) RF: 0 aspirin [Aspir-81] 81 mg Tablet,Delayed Release (Dr/Ec) 81 mg PO QAM RF: 0 epinephrine [EpiPen] 0.3 mg/0.3 mL Auto-Injector 0.3 mg IM UD PRN (Reason: Allergic Reaction) RF: 0 acetaminophen 325 mg Tablet 650 mg PO Q4H PRN (Reason: pain) Qty: 30 RF: 0 potassium chloride 10 mEq capsule, extended release 10 meq PO DAILY RF: 0 hydrochlorothiazide 25 mg tablet 12.5 mg PO DAILY RF: 0 Referrals Referrals: Celina Saunders DO [Primary Care Provider] - Discharge Problem: Hydronephrosis Qualifiers: Hydronephrosis type: unspecified Qualified Code(s): N13.30 - Unspecified hydronephrosis Abdominal pain Qualifiers: Abdominal location: left lower quadrant Qualified Code(s): R10.32 - Left lower quadrant pain
[2019-10-25] MEDS ORDERED: SODIUM CHLORIDE 0.9% 500 ML IV SCH (00:15)
[2019-10-25 00:45] LABS: Basophils # (auto) 0.02 K/uL (0-0.2); Basophils % (auto) 0.1 %; Eosinophils # (auto) 0.01 K/uL (0-0.5); Eosinophils % (auto) 0.1 %; Hematocrit (blood only) 33.3 % (42-52); Hemoglobin 10.9 g/dL (14.0-18.0); Immature Granulocytes # (auto) 0.02 K/uL (0.00-0.02); Immature Granulocytes % (auto) 0.1 %; Lymphocytes # (auto) 1.58 K/uL (1.2-3.4); Lymphocytes % (auto) 11.2 %; Mean Corpuscular Hemoglobin 29.7 pg (25-34); Mean Corpuscular Hgb Conc 32.7 g/dL (32-36); Mean Corpuscular Volume 90.7 fL (80-100); Monocytes # (auto) 2.16 K/uL (0.11-0.59); Monocytes % (auto) 15.3 %; Neutrophils # (auto) 10.31 K/uL (1.4-6.5); Neutrophils % (auto) 73.2 %; Platelet Count 204 K/uL (130-400); RDW Coefficient of Variation 16.4 % (11.5-14.5); RDW Standard Deviation 55.2 fL (36.4-46.3); Red Blood Count 3.67 M/uL (4.7-6.1)
[2019-10-25 01:00] LABS: INR 1.2 (0.9-1.1); Partial Thromboplastin Ratio 1.2; Partial Thromboplastin Time 34.2 Seconds (21.0-31.0); Prothrombin Time 12.7 Seconds (9.0-12.0)
[2019-10-25 01:02] LABS: Alanine Aminotransferase 9 U/L (12-78); Aspartate Aminotransferase 8 U/L (15-37); BUN Creatinine Ratio 15.2 (10-20); Blood Urea Nitrogen 35 mg/dl (7-18); Calcium 8.5 mg/dl (8.5-10.1); Carbon Dioxide 29 mmol/L (21-32); Chloride 102 mmol/L (98-107); Creatinine Clr Calc Pharmacy 26.6 ml/min; Est GFR (African American) 30.1; Glucose 139 mg/dl (70-99); Magnesium 2.3 mg/dl (1.8-2.4); Sodium 138 mmol/L (136-145)
[2019-10-25] MEDS ORDERED: SODIUM CHLORIDE 0.9% 1000ML 500 ML IV ONE (01:04)
[2019-10-25 01:13] LABS: Albumin Globulin Ratio 0.7 (0.9-2); Alkaline Phosphatase 96 U/L (45-117); Bilirubin,Total 0.6 mg/dl (0.2-1); Creatine Kinase 37 U/L (39-308); Globulin 4.6 gm/dl (2.5-4.0); Total Protein 7.6 gm/dl (6.4-8.2); Troponin I < 0.015 ng/ml (0-0.045)
[2019-10-25 01:45] LABS: Appearance Urine Turbid (Clear); Bacteria Urine Automated 2+ (Negative); Bilirubin Urine Negative (Negative); Blood Urine 3+ (Negative); Color Urine Yellow; Glucose Urine UA Negative (Negative); Ketones Urine Negative (Negative); Leukocyte Esterase Urine 3+ (Negative); Nitrite Urine Positive (Negative); RBC Urine Automated >30 /hpf (0-4); Specific Gravity Urine 1.016 (1.000-1.030); Urobilinogen Urine Negative (Negative); WBC Urine Automated >30 /hpf (0-5); pH Urine 8.5 (4.5-7.5)
[2019-10-25 01:57] LABS: Protein Urine 2+ (Negative); Sulfosalicylic Acid Urine Positive (Negative)
[2019-10-25 02:01] LABS: Triple Phosphate Crystal Urine Present (None Prsent)
[2019-10-25] MEDS ORDERED: PIPERACILL/TAZOBAC CONSULT ACTIVE PRN ×2 (02:02→05:00)
[2019-10-25] MEDS ORDERED: PIPERACILLIN/TAZOBACTAM 4.5 GM/120 ML BAG IV ONE (02:02)
[2019-10-25] MEDS ORDERED: ENOXAPARIN INJ 30 MG/0.3 ML SYR SQ SCH (05:00)
[2019-10-25] MEDS ORDERED: POLYETHYLENE (MIRALAX) 17 GM PACK PO PRN (05:00)
[2019-10-25] MEDS ORDERED: EPINEPHRINE ADULT AUTO-INJECT 0.3 MG SYR IM PRN (05:00)
[2019-10-25] MEDS ORDERED: ONDANSETRON INJ 2 MG/ML 2 ML VIAL IV PRN (05:00)
[2019-10-25] MEDS ORDERED: ACETAMINOPHEN 325 MG TAB PO PRN (05:00)
--- NOTE | 2019-10-25 05:15 | History & Physical Report ---
Date of Service October 25, 2019 Assessment & Plan (1) Abdominal pain: Alfredo Momin is a 79 year old man with complicated PMH as outlined above with chronic myles here for weakness and myles associated UTI UTI Likely secondary to chronic catheterization Treating with zosyn, has history of pseudomonas flourescens, proteus mirabilis and providencia stuartii all sensitive to zosyn WIll replace catheter CT abdomen and exam not suggestive of current pyelonephritis Weakness ACute change Likely secondary to UTI Will get PT/OT evaluation to make sure he is strong enough to return home to the care of his family GIOVANY lIkely pre renal LR @ 80 mls/hour and encouraging PO intake WIll recheck in AM Hypokalemia Likely secondary to HCTZ use though interestingly most recent nephrology note encouraged him to stop taking it Will continue to hold HCTZ and replete K Atrial Fibrilation Patient anticoagulated on apixaban 5 mg daily after discussion with pharmacy even at baseline creatinine patient qualifies for the 2.5 mg BID dose. Will make change now and will need to continue this dose on discharge CAD Continuing beta christina ASA and simvastatin Nitrostat as needed F/E/N: LR and PO intake as tolerated DVT PPx: APixaban Dispo: Admit for treatement of catheter associated UTI COnditional Code desires chest compressions and shocks but no intubation (2) Acute kidney injury: (3) Aortic stenosis: (4) CKD (chronic kidney disease) stage 3, GFR 30-59 ml/min: (5) Weakness: (6) Recurrent UTI: Admission and Anticipated Discharge Date Admission Date: October 25, 2019 History of Present Illness Chief Complaint: UTI altered mental status Primary Care Provider: Celina Saunders DO Alfredo Momin is an 79 year old man with past medical history significant for Stage IIIb CKD with baseline creatinine around 1.7 secondary to obstructive uropathy and left atrophic kidney, CAD, HTN, HLD, A fib on apixaban, Iron deficient anemia, Bradycardia s/p pacemaker, chronic indwelling myles catheter secondary to difficulty emptying bladder, UTI's, bilateral Ureteral stents last exchanged on 08/07 of this year, and dementia. Patient was very confused and communication was quite difficult in gathering this history. His daughter who was here with him also has a learning disability and was unable to provide much history but does tell me that he has been confused lately and she's concerned about a UTI. Patient denies any symptoms at present time. Lives with and two daughters at home. Was hospitalized in August for pyelonephritis and bacteremia with providencia following stent placement. Has grown pseudomonas, proteus and providencia in the past all sensitive to Zosyn. On admission to ED patient slightly hypotensive, resolved with one liter NSS, labwork significant for urinalysis positive for UTI and white count of 14.1, hypokalemia of 3.0, creatinine of 2.29. CT abdomen Pelvis without any acute abnormalities and mildly improved Hydroureteronephrosis. Allergies Allergy/AdvReac Type Severity Reaction Status Date / Time captopril Allergy Severe ANAPHYLAXIS Verified 10/24/19 13:10 Iodinated Contrast Media Allergy Severe ANAPHYLAXIS Verified 10/24/19 13:10 levofloxacin Allergy Severe ANAPHYLAXIS Verified 10/24/19 13:10 morphine Allergy Severe Anaphylaxis Verified 10/24/19 13:10 oxaprozin Allergy Severe ANAPHYLAXIS Verified 10/24/19 13:10 Sulfa (Sulfonamide Allergy Severe Anaphylaxis Verified 10/24/19 13:10 Antibiotics) torsemide Allergy Severe ANAPHYLAXIS Verified 10/24/19 13:10 hydrocodone Allergy Mild RASH Verified 10/24/19 13:10 Home Medications Home Medications Medication Instructions Recorded Confirmed Type aspirin [Aspir-81] 81 mg PO QAM 06/05/18 10/25/19 History epinephrine [EpiPen] 0.3 mg IM UD PRN 06/05/18 10/25/19 History nitroglycerin [Nitromist] 1 spray SUBLINGUAL UD PRN 06/05/18 10/25/19 History acetaminophen 650 mg PO Q4H PRN #30 tab 08/14/19 10/25/19 Rx tramadol 50 mg tablet 50 mg PO TID PRN #60 tab 09/26/19 10/25/19 Rx citalopram 10 mg tablet 10 mg PO DAILY #90 tab 10/03/19 10/25/19 Rx apixaban 5 mg tablet 5 mg PO BID #180 tab 10/04/19 10/25/19 Rx bethanechol chloride 50 mg tablet 50 mg PO QID #360 tab 10/04/19 10/25/19 Rx bupropion HCl 100 mg tablet,12 hr 100 mg PO DAILY #90 ea 10/04/19 10/25/19 Rx sustained-release carvedilol 3.125 mg tablet 3.125 mg PO BID #180 tab 10/04/19 10/25/19 Rx donepezil 10 mg tablet 10 mg PO HS #90 tab 10/04/19 10/25/19 Rx ferrous sulfate 325 mg (65 mg 325 mg PO BIDM #180 tab 10/04/19 10/25/19 Rx iron) tablet,delayed release folic acid 1 mg tablet 1 mg PO QAM #90 tab 10/04/19 10/25/19 Rx gabapentin 300 mg capsule 300 mg PO HS #90 cap 10/04/19 10/25/19 Rx isosorbide mononitrate 60 mg 60 mg PO QAM #90 tab 10/04/19 10/25/19 Rx tablet,extended release 24 hr levothyroxine 100 mcg tablet 100 mcg PO HS #90 tab 10/04/19 10/25/19 Rx memantine 10 mg tablet 10 mg PO BID #180 tab 10/04/19 10/25/19 Rx simvastatin 80 mg tablet 80 mg PO HS #90 tab 10/04/19 10/25/19 Rx tamsulosin 0.4 mg capsule 0.4 mg PO QPM #90 cap 10/04/19 10/25/19 Rx hydrochlorothiazide 12.5 mg PO DAILY 10/25/19 10/25/19 History potassium chloride 10 meq PO DAILY 10/25/19 10/25/19 History Past Med/Surg History Medical History Anxiety and depression Aortic stenosis Mild (MG 11 mmHg, UZMA 1.1 cm2) per 11/2015 ECHO Atrial fibrillation on Eliquis-F/U PCP BPH w urinary obs/LUTS CAD (coronary artery disease), [place] coronary artery S/P BMS to OM (1997). Caths also 2006, 2008 and 2013, no stents placed. Most recent cath in 2013 showed no angiographically significant stenosis other than 20-30% in-stent restenosis of OM. Cardiac pacemaker in situ Implanted 2008 (2/ SSS). [facility]. Last pacer check 07/2019 [facility] Chronic indwelling Myles catheter Chronic pain CKD (chronic kidney disease) stage 3, GFR 30-59 ml/min Dementia Dyslipidemia GERD (gastroesophageal reflux disease) controlled History of kidney stones History of PA (myocardial infarction) 1997 HTN (hypertension), benign Hx of gastric ulcer Hypothyroidism Iron deficiency anemia Sleep apnea NO DEVICE Surgical History H/O total knee replacement RIGHT/LEFT History of cardiac cath MULTIPLE WITH TOTAL 4 STENTS-LAST ONE 2 YRS AGO PH [facility] History of cataract surgery B/L History of lithotripsy History of lumbar fusion History of prostate surgery PARTIAL PROSTECTOMY History of thyroidectomy S/P placement of cardiac pacemaker 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 2016-PACER CHECK [facility] S/P TURP S/P ureteral stent placement Cysto, B/L RPG, right ureteroscopy, stent exchange: 07/06/18: LMA#5 at [facility] CYSTO STENT EXCHANGE 11/2018 Family History Father Diabetes Mother Coronary heart disease Hypertension Brother Seizure Social History Smoking Status: Unknown if ever smoked Tobacco Type: Cigarettes Second Hand Exposure: No; Hx Alcohol Use: No Hx Substance Use: No Preferred Language: Maori Communication Ability: Impaired Communication Ability Comment: pt confused Assistant Finance Director Required: No Beliefs That Will Affect Care: None marital status: Current Living Situation: Other Current Living Situation Comment: pt states he lives at home. pt did not answer if he lived with anyone How many Children do You have: 3 Feels Safe at Home: Yes Seatbelt Use: always Review of Systems Review of Systems: Unobtainable due to cognitive status Physical Exam Constitutional: well developed and well nourished; no acute distress Eyes: PERRL, conjunctivae normal, anicteric sclerae ENMT: external ear and nose normal, oropharynx normal (Dry mucus membranes) Respiratory: normal respiratory effort; no respiratory distress and no cough Auscultation: + wheezes Cardiovascular: Rate/Rhythm: regular rate and regular rhythm Heart Sounds: no click, no gallop, no murmur and no cardiac rub Extremities: no edema Gastrointestinal (Abdomen): Percussion/Palpation: + abdomen tender (MIldly tender throughout) and abdomen soft Skin: no rashes, warm and dry Results & Data Results & Data ([facility]) Vital Signs (Past 12 Hours) Vital Signs Temp Pulse Pulse Resp BP BP Pulse Ox 10/25/19 04:00 75 24 180/100 H 95 10/25/19 03:48 74 22 172/100 H 94 10/25/19 02:35 72 22 169/81 H 97 10/25/19 01:30 69 16 169/81 H 95 10/25/19 00:26 94 10/25/19 00:01 36.7 C 70 16 134/68 95 Code Status & VTE Plan VTE Prophylaxis Plan VTE Prophylaxis will be ordered: Yes Supervising Physician Co-Signing Physician Notes Attending addendum: I have physically seen this patient, have supervised the medical residents activities, and agree with the H&P unless as otherwise noted. Assessment and Plan: Persistent left hydronephrosis/pyelonephritis- Ibrahima on a symptomatic basis, however, imaging does not confirm. Follow urinalysis and urine culture and sensitivity All previous infections sensitive to Zosyn. GIOVANY- place on LR at 80 mils per hour and follow serial laboratories Received 1500 mils of NSS in the ED Hypokalemia- Potassium 3.0 upon admission. Replace orally and follow CAD/hypertension/atrial fibrillation- Continue apixaban, aspirin, carvedilol. Hold HCTZ due to low potassium Remaining orders and notations as noted Resident Activity Tracking Resident Involvement: Resident Care Provided Care Provided: Adult Hospital Medicine (1) Abdominal pain Abdominal location: left lower quadrant Qualified Code(s): R10.32 - Left lower quadrant pain
[2019-10-25] MEDS ORDERED: NITROGLYCERIN SL 0.4 MG/TAB TAB SL PRN (05:27)
[2019-10-25] MEDS: LACTATED RINGER'S 1,000 ML IV SCH ×2 (05:43→17:15)
[2019-10-25] MEDS: POTASSIUM CHLORIDE / WTR 10 MEQ/100 ML PLCT IV SCH ×4 (05:43→08:37)
[2019-10-25] MEDS: POTASSIUM CHLORIDE 10 MEQ TABCR PO SCH (07:12)
[2019-10-25] MEDS: BuPROPion SR 100 MG TABCR PO SCH (07:12)
[2019-10-25] MEDS: ASPIRIN 81 MG ECTAB PO SCH (07:12)
[2019-10-25] MEDS: BETHANECHOL CHL 25 MG TAB PO SCH ×4 (07:12→20:36)
[2019-10-25] MEDS: CITALOPRAM 20 MG TAB PO SCH (07:13)
[2019-10-25] MEDS: carvediloL 3.125 MG TAB PO SCH ×2 (07:13→20:36)
[2019-10-25] MEDS: FERROUS SULFATE 325 MG TAB PO SCH ×2 (07:13→17:13)
[2019-10-25] MEDS: FOLIC ACID 1 MG TAB PO SCH (07:13)
[2019-10-25] MEDS: MEMANTINE HCL 10 MG TAB PO SCH ×2 (07:13→20:36)
[2019-10-25] MEDS: ISOSORBIDE MONO EXTENDED REL 60 MG TABCR PO SCH (07:13)
--- NOTE | 2019-10-25 07:21 | CT Scan Report ---
CT SCAN OF THE BRAIN WITHOUT IV CONTRAST CLINICAL HISTORY: Change in mental status. COMPARISON STUDY: CT of the brain dated 08/08/2019. TECHNIQUE: Unenhanced axial CT scan of the brain is performed from the vertex to the skull base. A do se lowering technique was utilized adhering to the principles of ALARA. CT DOSE: 614.27 mGy.cm FINDINGS: Brain parenchyma: There are age-related involutional changes noting moderate subcortical and periven tricular microangiopathic change. There is no hemorrhage, mass effect, or evidence of acute territori al ischemia by CT criteria. Momin-white matter differentiation is preserved. No extra-axial fluid anju ection is seen. Ventricles, sulci, cisterns: Prominent secondary to involutional change. Intracranial vasculature: There is atherosclerotic calcification of the cavernous carotid and vertebr al arteries. Calvarium: Unremarkable. Sinuses and mastoids: There is near complete opacification of the right ethmoid sinus. Trace mucosal thickening is seen in the right maxillary sinus, the sphenoid sinuses, ethmoid sinus, and frontal sin uses. The mastoid air cells are well pneumatized. Orbits: The bony orbits are grossly intact. There are bilateral ocular lens implants. IMPRESSION: There is no hemorrhage, mass effect, or evidence of acute territorial ischemia by CT pat carias. ACT 112: Negative or not required by law. Electronically signed by: Santy Acuña M.D. 10/25/2019 7:20 AM
--- NOTE | 2019-10-25 07:46 | XRay Report ---
XR chest 1V portable CLINICAL HISTORY: weakness COMPARISON STUDY: Chest radiograph August 09, 2019. FINDINGS: Lung volumes are normal. Lungs are clear. There is no pneumothorax or pleural effusion. Car diac size is normal. Mediastinal contours are normal. There is no evidence for pulmonary edema. Dual- lead left pacemaker is unchanged in position. There is slight elevation of the left hemidiaphragm. IMPRESSION: No acute cardiopulmonary findings. ACT 112: Negative or not required by law. Electronically signed by: Glen Melvin M.D. 10/25/2019 7:44 AM
--- NOTE | 2019-10-25 07:46 | CT Scan Report ---
CT SCAN OF THE ABDOMEN AND PELVIS WITHOUT CONTRAST CLINICAL HISTORY: Lower abdominal pain COMPARISON STUDY: 08/11/2019 TECHNIQUE: CT scan of the abdomen and pelvis was performed from the lung bases to the proximal femurs . Images are reviewed in the axial, sagittal, and coronal planes. IV contrast was not administered fo r this examination. A dose lowering technique was utilized adhering to the principles of ALARA. CT DOSE: 979.56 mGy.cm FINDINGS: Lower chest: There is mild right lower lobe cylindrical bronchiectasis. Liver: The unenhanced liver is normal in size, contour, and attenuation. There is no intrahepatic ty iary ductal dilatation. Gallbladder: Surgically absent Spleen: Normal in size and attenuation. Pancreas: Unremarkable. Adrenal glands: Unremarkable. Kidneys: There is bilateral nephrolithiasis. There are bilateral nephroureteral stents present. There is persistent but slightly improved left-sided hydronephrosis. There are left renal cysts present. Bowel: There are no transition zones indicate bowel obstruction. There is no evidence of acute divert iculitis. There are no findings to indicate acute appendicitis. Peritoneum: There is no intraperitoneal free air or abdominal ascites. There are bilateral fat-contai jocelyn inguinal hernias. Vasculature: The abdominal aorta is normal in course and caliber. Adenopathy: None. Pelvic viscera: There is a penile implant present. There is an indwelling Michel catheter. The bladder is decompressed. Skeletal structures: There are advanced arthritic changes present within the hips. Postsurgical dee es are present within the cervical spine. IMPRESSION: 1. No evidence of bowel obstruction. No evidence of free air 2. No evidence of acute diverticulitis. No evidence of acute appendicitis. 3. Bilateral nephrolithiasis. There are bilateral nephroureteral stents. There is persistent but impr dalton left-sided hydronephrosis. ACT 112: Negative or not required by law. Electronically signed by: Melquiades Alex M.D. 10/25/2019 7:45 AM
[2019-10-25] MEDS: PIPERACILLIN/TAZOBACTAM 3.375 GM in DEXTROSE 5% 100 ML IV SCH ×3 (08:28→23:44)
[2019-10-25] MEDS: APIXABAN 2.5 MG TAB PO SCH ×2 (08:58→20:35)
[2019-10-25] MEDS: TRAMADOL HCL 50 MG TABLET PO PRN ×2 (08:59→15:27)
[2019-10-25] MEDS ORDERED: APIXABAN 5 MG TABLET PO SCH (09:00)
[2019-10-25] MEDS: ACETAMINOPHEN 325 MG TAB PO PRN (12:21)
--- NOTE | 2019-10-25 14:22 | Medical Student Progress Note ---
Date of Service October 25, 2019 Assessment & Plan (1) Abdominal pain: Pt has 9/[address] abdomen shows no acute signs of inflammation. CT showed evidence of some stool backup. Give patient 2-3 doses of Miralax and monitor for passing of stool. Check to see if symptoms persist after passing of stool. Monitor if pain worsens or constitutional symptoms arise over the course of the hospital stay. Abdominal location: left lower quadrant Qualified Code(s): R10.32 - Left lower quadrant pain Present on Admission?: Yes (2) Dementia: Pt overall appears confused about how he arrived to the ED and his overall medical history. Pt will be monitored for worsening confusion and signs of delirium. If delirium, Consider reaching out to the family to adult school counselor them that delirium from hospital stay is not permanent and will improve with time. Present on Admission?: Yes Admission and Anticipated Discharge Date Admission Date: October 25, 2019 Supervising Attestation I personally examined the patient and verified all delaney points of history and exam, discussed case, and agree with decision making with Anthony Chand MS2. abdominal pain. hard time describing it. brought in w AMS vitals noted nad heent nc at breathing unlabored no accessory muscles good effort abd soft nd mild diffuse tenderness no guarding no rebound ext no cyanosis AMS - likely delirium on dementia (metabolic encephalopathy) brought on by dehydration and probable UTI. supportive care, PT/OT, reorientation as best as possible. constipation - bowel regimen dehyrdation - likely poor PO intake related to constipation - IVF probable UTI - unclear sx - but with low grade temp and mild leukocytosis - have to take seriously. abx pending ID&S otherwise as above Subjective Pt is an 79 y/o male with a history of stage 3B chronic kidney disease (baseline creatinine 1.7), left sided hydronephrosis, HTN, dyslipidemia, dementia, UTi with pseudomonas, proteus mirabilis, and providencia with chronic indwelling catheter and bilateral ureteral stents who came in to the ED for persistent left lower quadrant stomach pain. Pt came into the ED for stomach pain that has persisted for "a long time" and confusion. Pt states that the left lower quadrant abdominal pain is a 9/10 that is worse with passing stool without alleviation. Pt saw inner tube tuber machine operator on Thursday where they discontinued hydrochlorothiazide and potassium supplements due to low blood pressure (90/65) without signs of volume overload. Nephrology instructed the pt to keep off ACEi/ARB, avoid NSAIDs, and stay well hydrated. In the ED the pt received the head CT due to confusion which was unremarkable. CT of abdomen showed no acute findings with mildly improved severe hydronephrosis of the left kidney. Pt was treated with IV fluids and Zosyn. Pt had EKG that showed some diffuse ST depression and T wave flattening with sinus rhythm. Pt had catheter replaced. Pt was placed on 2.5 mg of apixaban and simvastatin. Review of Systems Constitutional: + weakness Decreased appetite. Denies fever, sweats Respiratory: Denies SOB Cardiovascular: Additional Comments: Denies chest pain, palpitations Gastrointestinal: Lower left quadrant pain rated a 9/10 that has persisted for "a long time" that worsens with bearing down to pass a stool and does not improve with passing of stool. No changes in stool consistency Genitourinary: no dysuria and no hematuria Psychiatric: Denies dementia Physical Exam Constitutional: Confused but in no acute distress Eyes: PERRL Respiratory: normal respiratory effort, lungs clear to auscultation Cardiovascular: Systolic murmur at right and left sternal border audible on auscultation. RRR. No carotid bruits. No peripheral edema. Gastrointestinal (Abdomen): Normal bowel sounds. Tender to palpation in all four quadrants with the most pain located in the left lower quadrant. Neurologic: DTR 1+ bilaterally. Vibration sense was impaired although it is unclear if the pt understood the instructions. No pronator drift and normal rapidly alternating movements. Normal finger to nose test. Psychiatric: Affect: euthymic affect A modified MMSE was performed: Pt did not know the year, the city we are in, could not repeat 3 objects, could not count backwards from 10, could not recall original objects, could name objects in the room effectively, could not repeat "no ifs, ands, or buts", and could fold a paper in half. Pt was not asked to read and obey a command, write a sentence or copy a design. Overall out of the the 27 points tested for the pt scored a 5. Results & Data ([facility]) Vital Signs (Past 12 Hours) Vital Signs Temp Pulse Pulse Resp BP BP Pulse Ox 10/25/19 06:53 37.4 C 76 17 137/74 90 10/25/19 04:35 36.9 C 77 18 141/74 H 97 10/25/19 04:00 75 24 180/100 H 95 10/25/19 03:48 74 22 172/100 H 94 10/25/19 02:35 72 22 169/81 H 97
--- NOTE | 2019-10-25 15:14 | Electrocardiogram Report ---
Test Reason : Blood Pressure : / mmHG Vent. Rate : 070 BPM Atrial Rate : 070 BPM P-R Int : 178 ms QRS Dur : 096 ms QT Int : 376 ms P-R-T Axes : 100 -44 153 degrees QTc Int : 406 ms Poor data quality, interpretation may be adversely affected Normal sinus rhythm Left axis deviation Nonspecific ST and T wave abnormality Abnormal ECG When compared with ECG of 08-AUG-2019 14:44, Nonspecific T wave abnormality, worse in Anterolateral leads Confirmed by Yaron Sarmiento ([id number]) on 10/25/2019 3:13:27 PM Referred By: REFERRED SELF Confirmed By:Yaron Sarmiento
--- NOTE | 2019-10-25 19:57 | Billing Data ---
Date of Service October 25, 2019 Coding Level of Care Code 69996 Initial Inpt Care Lvl 3
[2019-10-25] MEDS: SIMVASTATIN 80 MG TAB PO SCH (20:36)
[2019-10-25] MEDS: TAMSULOSIN HCL 0.4 MG CAP PO SCH (20:36)
[2019-10-25] MEDS: LEVOTHYROXINE SODIUM 100 MCG TABLET PO SCH (20:36)
[2019-10-25] MEDS: GABAPENTIN 300 MG CAP PO SCH (20:36)
[2019-10-25] MEDS: DONEPEZIL HCL 10 MG TAB PO SCH (20:36)
[2019-10-26] MEDS: LACTATED RINGER'S 1,000 ML IV SCH ×2 (03:44→17:52)
[2019-10-26 06:06] LABS: Creatinine Clr Calc Pharmacy 31.5 ml/min
[2019-10-26] MEDS: PIPERACILLIN/TAZOBACTAM 3.375 GM in DEXTROSE 5% 100 ML IV SCH ×3 (07:24→23:39)
[2019-10-26] MEDS: carvediloL 3.125 MG TAB PO SCH ×2 (07:29→20:09)
[2019-10-26] MEDS: FERROUS SULFATE 325 MG TAB PO SCH ×2 (07:29→16:46)
[2019-10-26] MEDS: CITALOPRAM 20 MG TAB PO SCH (07:29)
[2019-10-26] MEDS: FOLIC ACID 1 MG TAB PO SCH (07:30)
[2019-10-26] MEDS: ASPIRIN 81 MG ECTAB PO SCH (07:30)
[2019-10-26] MEDS: APIXABAN 2.5 MG TAB PO SCH ×2 (07:30→20:12)
[2019-10-26] MEDS: ISOSORBIDE MONO EXTENDED REL 60 MG TABCR PO SCH (07:30)
[2019-10-26] MEDS: BETHANECHOL CHL 25 MG TAB PO SCH ×4 (07:31→20:14)
[2019-10-26] MEDS: MEMANTINE HCL 10 MG TAB PO SCH ×2 (07:31→20:13)
[2019-10-26] MEDS: POTASSIUM CHLORIDE 10 MEQ TABCR PO SCH (07:31)
[2019-10-26] MEDS: BuPROPion SR 100 MG TABCR PO SCH (07:31)
[2019-10-26 10:01] LABS: BUN Creatinine Ratio 13.2 (10-20); Calcium 8.7 mg/dl (8.5-10.1); Creatinine Clr Calc Pharmacy 30.9 ml/min; Est GFR (African American) 36.1; Est GFR (Non-African American) 31.2; Potassium 3.2 mmol/L (3.5-5.1)
[2019-10-26] MEDS: POLYETHYLENE (MIRALAX) 17 GM PACK PO SCH (10:15)
[2019-10-26 10:50] LABS: Basophils # (auto) 0.01 K/uL (0-0.2); Basophils % (auto) 0.1 %; Eosinophils # (auto) 0.05 K/uL (0-0.5); Eosinophils % (auto) 0.6 %; Hematocrit (blood only) 30.3 % (42-52); Hemoglobin 9.7 g/dL (14.0-18.0); Immature Granulocytes # (auto) 0.02 K/uL (0.00-0.02); Immature Granulocytes % (auto) 0.2 %; Lymphocytes # (auto) 1.03 K/uL (1.2-3.4); Lymphocytes % (auto) 11.4 %; Mean Corpuscular Hemoglobin 29.6 pg (25-34); Mean Corpuscular Volume 92.4 fL (80-100); Mean Platelet Volume 9.9 fL (7.4-10.4); Monocytes % (auto) 14.4 %; Neutrophils # (auto) 6.59 K/uL (1.4-6.5); Neutrophils % (auto) 73.3 %; Platelet Count 151 K/uL (130-400); RDW Coefficient of Variation 16.2 % (11.5-14.5); RDW Standard Deviation 55.1 fL (36.4-46.3); Red Blood Count 3.28 M/uL (4.7-6.1)
--- NOTE | 2019-10-26 13:55 | Medical Student Progress Note ---
Date of Service October 26, 2019 Assessment & Plan (1) Abdominal pain: Pt's abdominal pain is still a 9/10 and is now also located bilaterally in the lower back. The one bowel movement that the pt had was small but did help relieve some of the abdominal pain. Pt was only given one dose of miralax this morning. Give pt 2 doses of Miralax and monitor for bowel movements and changes in lower abdominal/back pain. Abdominal location: left lower quadrant Qualified Code(s): R10.32 - Left lower quadrant pain Present on Admission?: Yes (2) Dementia: Pt scored 2 points higher on the modified MMSE and appears much less confused than the day prior. After inquiring about the pt's baseline mental state with his daughter it sounds like he is very close to his baseline mental status. Pt's daughter is aware that if the pt begins to act violently or in a manner that is a danger to himself or others that the prospect of assisted living needs to be considered. Pt's daughter has no issue taking care of the pt in his current state and would like additional information about dementia progression. Continue to monitor for signs of delirium and reassess with modified MMSE tomorrow. Reach out to pt's daughter with resources for caregivers of those with dementia. Admission and Anticipated Discharge Date Admission Date: October 25, 2019 Supervising Attestation I personally examined the patient and verified all delaney points of history and exam, discussed case, and agree with decision making with Anthony LR. abdominal pain better did have some BM but not a lot. dtr present - updated extensively and answered all questions to the best of my ability. vitals noted nad heent nc at breathing unlabored no accessory muscles good effort abd soft nd almost NT no guarding no rebound ext no cyanosis AMS - likely delirium on dementia (metabolic encephalopathy) brought on by dehydration and probable UTI. supportive care, PT/OT, reorientation as best as possible. seems to be doing better. answered a lot of questions from dtr on dementia constipation - bowel regimen (some BM but appears to need escalated regimen) dehydration (with acute kidney injury superimposed on ckd that is right on the border of 3b and 4) - likely poor PO intake related to constipation - IVF - improving. probable UTI - unclear sx - but with low grade temp and mild leukocytosis - have to take seriously. abx pending ID&S (growing gm neg at this time) dementia -offered education and answered questions for dtr. otherwise as above Subjective Pt is an 79 y/o male with a history of stage 3B chronic kidney disease (baseline creatinine 1.7), left sided hydronephrosis, HTN, dyslipidemia, dementia, UTi with pseudomonas, proteus mirabilis, and providencia with chronic indwelling catheter and bilateral ureteral stents who came in to the ED (10/25/19) for persistent left lower quadrant stomach pain. Pt came into the ED on 10/25/19 for stomach pain that has persisted for "a long time" and confusion. Pt states that the left lower quadrant abdominal pain is a 9/10 that is worse with passing stool without alleviation. Pt saw health education aide on Thursday where they discontinued hydrochlorothiazide and potassium supplements due to low blood pressure (90/65) without signs of volume overload. Nephrology instructed the pt to keep off ACEi/ARB, avoid NSAIDs, and stay well hydrated. In the ED the pt received the head CT due to confusion which was unremarkable. CT of abdomen showed no acute findings with mildly improved severe hydronephrosis of the left kidney. Pt was treated with IV fluids and Zosyn. Pt had EKG that showed some diffuse ST depression and T wave flattening with sinus rhythm. Pt had catheter replaced. Pt was placed on 2.5 mg of apixaban and simvastatin. Pt still has pain today in bilateral lower abdomen that has migrated to the bilateral lower back that is a sharp 9/10 pain. Pt had a small bowel movement yesterday (10/25/19) which helped the pain a little bit. Pt denies receiving laxatives yesterday. Pt is eating with a "half decent appetite". Pt is drinking water. Pt had some urine with no pain with urination or changes in the color of urine. Review of Systems Review of Systems: : no pain iwth urination, some urine passing and no changes in color Constitutional: Denies fever, chills Eyes: Denies vision changes Respiratory: Denies SOB but notices wheezing when asked about it Cardiovascular: Additional Comments: Some chest pain. Denies palpitations, lightheadedness, syncope Gastrointestinal: Sharp 9/10 pain localized to bilateral lower abdomen which h as now migrated to bilateral lower back; small bowel movement helped relived some of the pain. Musculoskeletal: Bilateral transient proximal anterior leg pain during conversation roughly located at hip flexor area. Subsided within 30 seconds. Neurologic: Some numbness and tingling in feet Psychiatric: No changes in mood Physical Exam Constitutional: In no acute distress Eyes: PERRL, no nystagmus, CNIII, IV, intact. Respiratory: normal respiratory effort, lungs clear to auscultation Pt had no wheezing on auscultation but had late forced expiratory wheeze without auscultation Cardiovascular: 1+ systolic ejection murmur localized to left 2nd intercostal space. 1+ pedal edema Gastrointestinal (Abdomen): Bowel sounds were present. Pain on palpation in all four quadrants with guarding Neurologic: 1+ reflexes bilaterally, unclear of peripheral sensation as pt would say he felt sensation when no sensation was being tested Psychiatric: Affect: euthymic affect Oriented to person but not to place or time. Altered MMSE performed again: score of 6 out of 27. Thought it was the year 2008, did not know the city he was at, could repeat objects, could not count backwards from 10, could not remember initial objects, had some difficulty naming objects, and could not repeat ifs ands or buts, could follow commands. Results & Data ([facility]) Vital Signs (Past 12 Hours) Vital Signs Temp Pulse Resp BP Pulse Ox 10/26/19 07:04 37.0 C 70 16 171/84 H 93
[2019-10-26] MEDS: POTASSIUM CHLORIDE / WTR 10 MEQ/100 ML PLCT IV SCH ×3 (16:38→18:53)
--- NOTE | 2019-10-26 19:35 | Billing Data ---
Date of Service October 26, 2019 Coding Level of Care Code 77564 Subseq Hosp Care Lvl 3
[2019-10-26] MEDS: TAMSULOSIN HCL 0.4 MG CAP PO SCH (20:12)
[2019-10-26] MEDS: DONEPEZIL HCL 10 MG TAB PO SCH (20:12)
[2019-10-26] MEDS: GABAPENTIN 300 MG CAP PO SCH (20:14)
[2019-10-26] MEDS: LEVOTHYROXINE SODIUM 100 MCG TABLET PO SCH (20:14)
[2019-10-26] MEDS: SIMVASTATIN 80 MG TAB PO SCH (20:15)
[2019-10-26] MEDS: ACETAMINOPHEN 325 MG TAB PO PRN (20:17)
[2019-10-26] MEDS: POTASSIUM CHLORIDE 20 MEQ TABCR PO SCH (20:19)
[2019-10-26] MEDS: TRAMADOL HCL 50 MG TABLET PO PRN (22:39)
[2019-10-27] MEDS: LACTATED RINGER'S 1,000 ML IV SCH ×2 (05:12→18:33)
[2019-10-27 06:09] LABS: Basophils # (auto) 0.02 K/uL (0-0.2); Basophils % (auto) 0.2 %; Eosinophils # (auto) 0.21 K/uL (0-0.5); Eosinophils % (auto) 2.5 %; Hematocrit (blood only) 32.9 % (42-52); Hemoglobin 10.7 g/dL (14.0-18.0); Immature Granulocytes # (auto) 0.02 K/uL (0.00-0.02); Immature Granulocytes % (auto) 0.2 %; Lymphocytes # (auto) 1.54 K/uL (1.2-3.4); Lymphocytes % (auto) 18.2 %; Mean Corpuscular Hgb Conc 32.5 g/dL (32-36); Mean Corpuscular Volume 92.2 fL (80-100); Mean Platelet Volume 10.8 fL (7.4-10.4); Monocytes # (auto) 1.58 K/uL (0.11-0.59); Monocytes % (auto) 18.6 %; Neutrophils # (auto) 5.11 K/uL (1.4-6.5); Neutrophils % (auto) 60.3 %; Platelet Count 167 K/uL (130-400); RDW Standard Deviation 54.7 fL (36.4-46.3); Red Blood Count 3.57 M/uL (4.7-6.1); White Blood Count 8.48 K/uL (4.8-10.8)
[2019-10-27 06:36] LABS: BUN Creatinine Ratio 12.8 (10-20); Calcium 8.6 mg/dl (8.5-10.1); Est GFR (African American) 43.5; Est GFR (Non-African American) 37.5; Magnesium 2.2 mg/dl (1.8-2.4); Potassium 3.6 mmol/L (3.5-5.1)
[2019-10-27 06:37] LABS: Phosphorus 2.5 mg/dl (2.5-4.9)
[2019-10-27] MEDS: PIPERACILLIN/TAZOBACTAM 3.375 GM in DEXTROSE 5% 100 ML IV SCH ×2 (07:37→16:11)
[2019-10-27] MEDS: ISOSORBIDE MONO EXTENDED REL 60 MG TABCR PO SCH (07:43)
[2019-10-27] MEDS: POTASSIUM CHLORIDE 20 MEQ TABCR PO SCH ×2 (07:43→20:18)
[2019-10-27] MEDS: FERROUS SULFATE 325 MG TAB PO SCH ×2 (07:43→16:14)
[2019-10-27] MEDS: FOLIC ACID 1 MG TAB PO SCH (07:44)
[2019-10-27] MEDS: BETHANECHOL CHL 25 MG TAB PO SCH ×4 (07:44→20:14)
[2019-10-27] MEDS: ASPIRIN 81 MG ECTAB PO SCH (07:44)
[2019-10-27] MEDS: BuPROPion SR 100 MG TABCR PO SCH (07:44)
[2019-10-27] MEDS: MEMANTINE HCL 10 MG TAB PO SCH ×2 (07:44→20:16)
[2019-10-27] MEDS ORDERED: POLYETHYLENE (MIRALAX) 17 GM PACK PO ONE (07:45)
[2019-10-27] MEDS: carvediloL 3.125 MG TAB PO SCH ×2 (07:45→20:17)
[2019-10-27] MEDS: APIXABAN 2.5 MG TAB PO SCH ×2 (07:45→20:18)
[2019-10-27] MEDS: POLYETHYLENE (MIRALAX) 17 GM PACK PO SCH (07:46)
[2019-10-27] MEDS: CITALOPRAM 20 MG TAB PO SCH (07:46)
[2019-10-27] MEDS: TRAMADOL HCL 50 MG TABLET PO PRN ×2 (12:42→20:13)
--- NOTE | 2019-10-27 15:52 | Medical Student Progress Note ---
Date of Service October 27, 2019 Assessment & Plan (1) Abdominal pain: Pt has had fairly staple 10/19 diffuse lower abdominal and lower back pain. Pain is likely secondary to constipation which has shown improvement with increasing dosages of Miralax. Continue to monitor abdominal/back pain and pt's bowel movements prior to discharge. Advice pt and pt's daughter to use Miralax for constipation. Start with one dose and slowly increase up to 3-4 doses if pt continues to have constipation issues. If issues do not resolve seek care from PCP if possible. Abdominal location: left lower quadrant Qualified Code(s): R10.32 - Left lower quadrant pain Present on Admission?: Yes (2) Dementia: Pt has a history of moderate to severe dementia that has been fairly stable according to the daughter. Since admission, pt's adjusted MMSE has slowly improved. Pt denies having hallucinations or symptoms of delirium. According to his daughter, the pt seems to be at his baseline level of cognition relative to his dementia. Repeat adjusted MMSE and compare to past scores. Pt's daughter requested educational resources on dementia progression. Provide pt's daughter with resources prior to discharge. Confirm no signs of delirium are present prior to discharge. Present on Admission?: Yes (3) Urinary tract infection: Proteus mirabilis in urine on 10/25/19 sensitive to cefazolin. Unclear if pt had UTI symptoms on admission but expressed a certain degree of confusion and a a moderately elevated WBC. Start pt on Cefazolin PO and monitor for systemic symptoms of UTI prior to discharge. Give cefazolin PO on discharge. Present on Admission?: Yes Admission and Anticipated Discharge Date Admission Date: October 25, 2019 Supervising Attestation I personally examined the patient and verified all delaney points of history and exam, discussed case, and agree with decision making with Anthony LR. generally feeling better overall and appreciative of care. 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 supportive care, PT/OT, reorientation as best as possible. overall better. constipation - bowel regimen, doing better dehydration (with acute kidney injury superimposed on ckd that is right on the border of 3b and 4) - likely poor PO intake related to constipation - IVF - improving. (will hold fluids now) probable UTI - unclear sx - but with low grade temp and mild leukocytosis - have to take seriously. abx transition to [address] [place] [id number] dementia -supportive care, education for family otherwise as above, probably home tomorrow Subjective Pt is an 79 y/o male with a history of stage 3B chronic kidney disease (baseline creatinine 1.7), left sided hydronephrosis, HTN, dyslipidemia, dementia, UTi with pseudomonas, proteus mirabilis, and providencia with chronic indwelling catheter and bilateral ureteral stents who came in to the ED (10/25/19) for persistent left lower quadrant stomach pain. Pt came into the ED on 10/25/19 for stomach pain that has persisted for "a long time" and confusion. Pt states that the left lower quadrant abdominal pain is a 9/10 that is worse with passing stool without alleviation. Pt saw commodity supervisor on Thursday where they discontinued hydrochlorothiazide and potassium supplements due to low blood pressure (90/65) without signs of volume overload. Nephrology instructed the pt to keep off ACEi/ARB, avoid NSAIDs, and stay well hydrated. In the ED the pt received the head CT due to confusion which was unremarkable. CT of abdomen showed no acute findings with mildly improved severe hydronephrosis of the left kidney. Pt was treated with IV fluids and Zosyn. Pt had EKG that showed some diffuse ST depression and T wave flattening with sinus rhythm. Pt had catheter replaced. Pt was placed on 2.5 mg of apixaban and simvastatin. Pt had urine culture that grew proteus mirabilis on 10/25/19. Pt still had pain yesterday (10/26/19) in bilateral lower abdomen that has migrated to the bilateral lower back that is a sharp 9/10 pain. Pt had a small bowel movement 10/25/19 which helped the pain a little bit. Today pt is feeling alright. Pt denies urinary symptoms. Pt denies any bowel movements yesterday or this morning but acknowledged he received Miralax. Nurse confirmed 2 doses of Miralax and 1 dose of Miralax today. Nurse states pt had two dark moderate sized bowel movements yesterday despite pt claiming that he did not have a bowel movement. Pt still has the same 9/10 lower abdominal and back pain. Talked to pt's daughter in the afternoon and she acknowledged that he was slightly weak and wasn't comfortable taking him home due to the inaccessible car she brought to the hospital today. Pt tried getting out of bed and using walker to walk to the end of the room and back. Pt needed assistance getting in and out of bed but was able to ambulate with moderate pain and fatigue. Pt says he does not feel strong enough yet and is worried about falling. Review of Systems Review of Systems: : Denies pain with urination or urine discoloration Constitutional: Denies fever, chills Respiratory: Denies SOB or wheezing Cardiovascular: Additional Comments: Denies chest pain, palpitations, syncope, lightheadedness Gastrointestinal: Constant 9/10 lower abdominal and lower back pain Psychiatric: Feeling mood is good overall Physical Exam Eyes: PERRL with normal ocular movements without nystagmus Respiratory: Normal breath sounds on auscultation anteriorly and posteriorly Cardiovascular: Mild systolic ejection murmur localized to the left 2nd intercostal space, normal capillary refill Gastrointestinal (Abdomen): Abdominal pain on palpation of all four quadrants, loud bowel sounds Neurologic: 1+ reflexes bilaterally, on testing vibration sensation pt would say he feels vibration even though there would be no vibration or pressure bilaterally Psychiatric: Affect: euthymic affect The same modified MMSE used today: scored an 18/27 which was an improvement from the prior two days. Pt could not name the year, pt knows the state and city he lives in, pt can repeat 3 objects, pt can count backward from 10, pt can't remember original 3 objects, pt can name objects I point to, pt can't repeat no "no ifs ands or buts", pt follows commands. Results & Data ([facility]) Vital Signs (Past 12 Hours) Vital Signs Temp Pulse Resp BP Pulse Ox 10/27/19 14:42 36.2 C L 53 L 16 159/85 H 96 10/27/19 07:02 36.3 C L 61 16 169/93 H 94
[2019-10-27] MEDS: cephALEXin 250 MG CAP PO SCH ×2 (17:41→20:15)
--- NOTE | 2019-10-27 19:59 | Billing Data ---
Date of Service October 27, 2019 Coding Level of Care Code 21337 Subseq Hosp Care Lvl 2
[2019-10-27] MEDS: SIMVASTATIN 80 MG TAB PO SCH (20:16)
[2019-10-27] MEDS: LEVOTHYROXINE SODIUM 100 MCG TABLET PO SCH (20:16)
[2019-10-27] MEDS: TAMSULOSIN HCL 0.4 MG CAP PO SCH (20:17)
[2019-10-27] MEDS: DONEPEZIL HCL 10 MG TAB PO SCH (20:18)
[2019-10-27] MEDS: GABAPENTIN 300 MG CAP PO SCH (20:19)
[2019-10-27] MEDS: ACETAMINOPHEN 325 MG TAB PO PRN (23:53)
[2019-10-28] MEDS: FERROUS SULFATE 325 MG TAB PO SCH ×2 (08:54→17:18)
[2019-10-28] MEDS: CITALOPRAM 20 MG TAB PO SCH (08:55)
[2019-10-28] MEDS: APIXABAN 2.5 MG TAB PO SCH (08:55)
[2019-10-28] MEDS: carvediloL 3.125 MG TAB PO SCH (08:55)
[2019-10-28] MEDS: ASPIRIN 81 MG ECTAB PO SCH (08:55)
[2019-10-28] MEDS: POTASSIUM CHLORIDE 20 MEQ TABCR PO SCH (08:56)
[2019-10-28] MEDS: ISOSORBIDE MONO EXTENDED REL 60 MG TABCR PO SCH (08:56)
[2019-10-28] MEDS: cephALEXin 250 MG CAP PO SCH ×3 (08:56→17:17)
[2019-10-28] MEDS: FOLIC ACID 1 MG TAB PO SCH (08:56)
[2019-10-28] MEDS: BETHANECHOL CHL 25 MG TAB PO SCH ×3 (08:57→17:18)
[2019-10-28] MEDS: MEMANTINE HCL 10 MG TAB PO SCH (08:57)
[2019-10-28] MEDS: BuPROPion SR 100 MG TABCR PO SCH (08:58)
[2019-10-28] MEDS: POLYETHYLENE (MIRALAX) 17 GM PACK PO SCH (09:10)
--- NOTE | 2019-10-28 14:48 | Med Student Discharge Summary ---
Date of Service October 28, 2019 Admission HPI Per Admitting Provider Alfredo Momin is an 79 year old man with past medical history significant for Stage IIIb CKD with baseline creatinine around 1.7 secondary to obstructive uropathy and left atrophic kidney, CAD, HTN, HLD, A fib on apixaban, Iron deficient anemia, Bradycardia s/p pacemaker, chronic indwelling myles catheter secondary to difficulty emptying bladder, UTI's, bilateral Ureteral stents last exchanged on 08/07 of this year, and dementia. Patient was very confused and communication was quite difficult in gathering this history. His daughter who was here with him also has a learning disability and was unable to provide much history but does tell me that he has been confused lately and she's concerned about a UTI. Patient denies any symptoms at present time. Lives with and two daughters at home. Was hospitalized in August for pyelonephritis and bacteremia with providencia following stent placement. Has grown pseudomonas, proteus and providencia in the past all sensitive to Zosyn. On admission to ED patient slightly hypotensive, resolved with one liter NSS, labwork significant for urinalysis positive for UTI and white count of 14.1, hypokalemia of 3.0, creatinine of 2.29. CT abdomen Pelvis without any acute a bnormalities and mildly improved Hydroureteronephrosis. Admission Exam (Per Admitting) Constitutional well developed and well nourished; no acute distress Eyes PERRL, conjunctivae normal, anicteric sclerae ENMT external ear and nose normal, oropharynx normal (Dry mucus membranes) Respiratory normal respiratory effort; no respiratory distress and no cough Auscultation: + wheezes Cardiovascular Rate/Rhythm: regular rate and regular rhythm Heart Sounds: no click, no gallop, no murmur and no cardiac rub Extremities: no edema Gastrointestinal (Abdomen) Percussion/Palpation: + abdomen tender (MIldly tender throughout) and abdomen soft Skin no rashes, warm and dry Discharge Data Consultations 10/25/19 02:13 ED Decision to Admit Stat 10/26/19 09:50 Consult Case Management - Discharge Planning Routine PE (10/28/19) Psych: Orientedx3 Modified MMSE: Time: 2009 [employer] Can repeat 3 objects Can count back from 10 Can remember 1 out of three objects Can name objects I point to Cannot repeat no ifs ands or buts Responds to 3 step command Chest: RRR with systolic ejection murmur best heard at the left 2nd intercostal space Pulm: Normal breath sounds on auscultation GI: Some tenderness to palpation in all four quadrants, normal breath sounds on all four quadrants Eyes: ERRL, normal oculomotor movements Neuro: 1+ reflexes bilaterally, normal Babinski Musc: able to ambulate with some assistance today. Hospital Course (1) Abdominal pain: Pt has had fairly staple 9/10 diffuse lower abdominal and lower back pain since admission until today where pt admits pain has subsided greatly but still rates both his lower abdominal and lower back pain an 8/10. Pt has been able to pass stool since receiving Miralax which has resulted in passing stool which has resulted in a reduction of abdominal and back pain. On physical exam, pt had a decreased amount of abdominal guarding and normal bowel sounds on auscultation. Abdominal pain is likely secondary to constipation which has shown improvement with increasing dosages of Miralax. Instruct pt and pt's daughter to use Miralax for constipation. Start with one dose and slowly increase up to 3-4 doses if pt continues to have constipation issues. If issues do not resolve seek care from PCP if possible. (2) Dementia: Pt has a history of moderate to severe dementia that has been fairly stable according to the daughter. Since admission, pt's adjusted MMSE has im proved and pt has appeared much less confused today. Pt denies having hallucinations or symptoms of delirium. According to his daughter, the pt seems to be at his baseline level of cognition relative to his dementia. Pt's daughter requested educational resources on dementia progression. Pt appears to be stable mentally and according to daughter is roughly at his baseline level of cognition. Pt's daughter is provided with resources prior to discharge. (3) Urinary tract infection: Proteus mirabilis in urine on 10/25/19 sensitive to cefazolin. Strep spe cies was found in the same culture but sensitivities have not been determined yet. Unclear if pt had UTI symptoms on admission but expressed a certain degree of confusion and a a moderately elevated WBC. Pt has received Zosyn over the course of the hospital stay. Pt is prescribed keflex PO for 5 days on discharge. (4) Dehydration: On initial admission, pt presented with dehydration. Pt and pt's daughter understands that fluid intake needs to be monitored and increased to 3 hospital mugs a day. Discharge Plan Discharge Items Patient Disposition: Home - Self-Care Reason For Visit: UTI COMPLICATED Discharge Diagnosis: abdominal pain, UTI, weakness, dementia Condition on Discharge: Good Activity: Per Instructions section Non-emergency contact: Primary Care Provider Call non-emergency contact if: you have any medication questions, your symptoms worsen, your pain is not controlled, your pain is worsening and you have a fever Follow-up/Referrals: Celina Saunders DO [Primary Care Provider] - Diet: Heart Healthy Addtl Attending Provider Instructions: Mr. Momin, It was our pleasure caring for you at [facility] from 10/22/2019 - 10/28/2019. Your medical course is described below: Abdominal pain - Abdominal pain diffuse and also in the lower back bilaterally - ? component of constipation - We gave you some Miralax which helped you have bowel movements Dementia - There was likely some acute delirium on top of your baseline dementia brought on by dehydration and UTI - We monitored you throughout your stay with supportive care, physical therapy, occupational therapy, and reorientation as best as possible - You improved and per your daughter, you are back to baseline mental status - Family, please remember that if he begins to get confused and if he begins to act violently or in a manner that is a danger to himself or others, call for help! - We offered education and answered your questions. Please reach out to your primary care doctor if you have any more questions or concerns. Constipation - Miralax was provided which helped you to have a bowel movement - Please continue to take Miralax at home as needed for constipation as we discussed Dehydration - GIOVANY superimposed on CKD; likely poor PO intake related to constipation - You received IVFs and we also encouraged increased water intake - Continue to keep hydrated and drink water to avoid dehydration! You should drink at least 60 oz. per day (3 of the [facility] water bottle cups) UTI - You did not have any complaints of urinary symptoms but labs showed a urinary tract infection - We treated this with IV antibiotics and then switched you to an oral antibiotic, Keflex, on 10/26 - Keep taking the Keflex and complete the total course of antibiotic that you have been prescribed Please follow up with your primary care doctor within the next 1 week. Please call your primary care doctor with any questions or concerns. Pending Studies at Discharge: No Stand-Alone Forms: [facility] Medications and DC Order Prescriptions: New cephalexin 250 mg Capsule 250 mg PO QID 5 Days Qty: 20 RF: 0 Continued tramadol 50 mg tablet 50 mg PO TID PRN (Reason: pain) Qty: 60 RF: 1 citalopram 10 mg tablet 10 mg PO DAILY Qty: 90 RF: 1 apixaban 5 mg tablet 5 mg PO BID Qty: 180 RF: 1 bethanechol chloride [Urecholine] 50 mg tablet 50 mg PO QID Qty: 360 RF: 1 bupropion HCl 100 mg tablet sustained-release 12 hr 100 mg PO DAILY Qty: 90 RF: 1 carvedilol 3.125 mg tablet 3.125 mg PO BID Qty: 180 RF: 1 donepezil 10 mg tablet 10 mg PO HS Qty: 90 RF: 1 ferrous sulfate 325 mg (65 mg iron) tablet,delayed release (DR/EC) 325 mg PO BIDM Qty: 180 RF: 1 folic acid 1 mg tablet 1 mg PO QAM Qty: 90 RF: 1 levothyroxine 100 mcg tablet 100 mcg PO HS Qty: 90 RF: 1 isosorbide mononitrate 60 mg tablet extended release 24 hr 60 mg PO QAM Qty: 90 RF: 1 memantine [Namenda] 10 mg tablet 10 mg PO BID Qty: 180 RF: 1 tamsulosin 0.4 mg capsule 0.4 mg PO QPM Qty: 90 RF: 1 simvastatin 80 mg tablet 80 mg PO HS Qty: 90 RF: 1 gabapentin 300 mg capsule 300 mg PO HS Qty: 90 RF: 1 nitroglycerin [Nitromist] 400 mcg/spray Aerosol,[place] 1 spray sublingual UD PRN (Reason: Chest Pain) RF: 0 aspirin [Aspir-81] 81 mg Tablet,Delayed Release (Dr/Ec) 81 mg PO QAM RF: 0 epinephrine [EpiPen] 0.3 mg/0.3 mL Auto-Injector 0.3 mg IM UD PRN (Reason: Allergic Reaction) RF: 0 acetaminophen 325 mg Tablet 650 mg PO Q4H PRN (Reason: pain) Qty: 30 RF: 0 potassium chloride 10 mEq capsule, extended release 10 meq PO DAILY RF: 0 hydrochlorothiazide 25 mg tablet 12.5 mg PO DAILY RF: 0 Discharge Orders: Discharge Order (Routine); Ordered 10/28/19 Ordered By: Karla Terrell/Other Patient Handouts: Dementia Patients Safety Tips, Dementia Patients Caregiver, Dementia: Coping Tips for Caregivers, Dementia Communicate Patients, Delirium & Dementia Difference Admission Data Admit Date/Time: 10/25/19 03:44 Attending Provider: Surya Alan Admit Provider: Jan Liang Primary Care Provider: Celina Saunders Other Providers: Dmitriy Asif Other Interventions: Discharge Summary Assessment (RN) Last Done: 10/28/19 17:35 Supervising Attestation I personally examined the patient and verified all delaney points of history and exam, discussed case, and agree with decision making with Anthony Chand MS2. feeling ok. doing well. feels ok w going home, dtr feels ok w taking him. vitals noted nad heent nc at breathing unlabored no accessory muscles good effort ext no cyanosis no focal neuro deficits AMS - likely delirium on dementia (metabolic encephalopathy) brought on by dehydration and probable UTI. seems to be back to baseline constipation - bowel regimen, doing better (outlined ongoing miralax regimen for home to pt and dtr) dehydration (with acute kidney injury superimposed on ckd that is right on the border of 3b and 4) - likely poor PO intake related to constipation - improved. f/u as outpt probable UTI - unclear sx - but with low grade temp and mild leukocytosis - have to take seriously. finish out course of abx w keflex dementia -supportive care, education for family stable for home <30mins
--- NOTE | 2019-10-28 20:01 | Billing Data ---
Date of Service October 28, 2019 Coding Level of Care Code D/C Day Management <30 mins
== END 2019-10-28 18:36 | disposition home health service (06) | DRG 698 ==
LOC: ED 23:51 → SUATTDRO 10-25 03:44 → 3W 10-25 03:44
DX: N13.6 Pyonephrosis; N26.1 Atrophy of kidney (terminal); I10 Essential (primary) hypertension; F03.90 Unspecified dementia, unspecified severity, without behavioral disturbance, psychotic disturbance, mood disturbance, and anxiety; Z91.041 Radiographic dye allergy status; Z86.79 Personal history of other diseases of the circulatory system; Z95.0 Presence of cardiac pacemaker; Z79.890 Hormone replacement therapy; Z95.5 Presence of coronary angioplasty implant and graft; K59.00 Constipation, unspecified; Z88.6 Allergy status to analgesic agent; B96.4 Proteus (mirabilis) (morganii) as the cause of diseases classified elsewhere; Z90.79 Acquired absence of other genital organ(s); Z88.5 Allergy status to narcotic agent; I25.2 Old myocardial infarction; I25.10 Atherosclerotic heart disease of native coronary artery without angina pectoris; G93.41 Metabolic encephalopathy; N17.9 Acute kidney failure, unspecified; Y73.2 Prosthetic and other implants, materials and accessory gastroenterology and urology devices associated with adverse incidents; Z88.1 Allergy status to other antibiotic agents; E86.0 Dehydration; Z88.8 Allergy status to other drugs, medicaments and biological substances; I48.91 Unspecified atrial fibrillation; Z96.0 Presence of urogenital implants; D50.9 Iron deficiency anemia, unspecified; Z87.442 Personal history of urinary calculi; E78.5 Hyperlipidemia, unspecified; E87.6 Hypokalemia; Z79.01 Long term (current) use of anticoagulants; T83.511A Infection and inflammatory reaction due to indwelling urethral catheter, initial encounter; Z79.899 Other long term (current) drug therapy; Z79.82 Long term (current) use of aspirin; R53.1 Weakness; N18.3 Chronic kidney disease, stage 3 (moderate); E89.0 Postprocedural hypothyroidism; Z87.440 Personal history of urinary (tract) infections; T50.2X5A Adverse effect of carbonic-anhydrase inhibitors, benzothiadiazides and other diuretics, initial encounter; Z88.2 Allergy status to sulfonamides

== ENCOUNTER 2019-12-24 16:10 | Inpatient (IN) ==
[2019-12-24 17:20] LABS: Appearance Urine Turbid (Clear); Bacteria Urine Automated 2+ (Negative); Bilirubin Urine Negative (Negative); Blood Urine 3+ (Negative); Epithelial Cell Urine Auto >30 /lpf (0-5); Glucose Urine UA Negative (Negative); Ketones Urine Negative (Negative); Leukocyte Esterase Urine 3+ (Negative); Nitrite Urine Positive (Negative); Protein Urine 2+ (Negative); Specific Gravity Urine 1.016 (1.000-1.030); Urobilinogen Urine Negative (Negative); WBC Urine Automated >30 /hpf (0-5)
[2019-12-24 17:25] LABS: Color Urine Amber
[2019-12-24 17:27] LABS: RBC Urine Automated >30 /hpf (0-4)
[2019-12-24 17:36] LABS: Basophils # (auto) 0.02 K/uL (0-0.2); Basophils % (auto) 0.1 %; Eosinophils # (auto) 0.06 K/uL (0-0.5); Eosinophils % (auto) 0.3 %; Hematocrit (blood only) 43.9 % (42-52); Hemoglobin 14.3 g/dL (14.0-18.0); Immature Granulocytes # (auto) 0.06 K/uL (0.00-0.02); Immature Granulocytes % (auto) 0.3 %; Lymphocytes # (auto) 1.25 K/uL (1.2-3.4); Lymphocytes % (auto) 6.6 %; Mean Corpuscular Hemoglobin 31.1 pg (25-34); Mean Corpuscular Hgb Conc 32.6 g/dL (32-36); Mean Corpuscular Volume 95.4 fL (80-100); Mean Platelet Volume 10.8 fL (7.4-10.4); Monocytes # (auto) 1.94 K/uL (0.11-0.59); Monocytes % (auto) 10.2 %; Neutrophils # (auto) 15.63 K/uL (1.4-6.5); Neutrophils % (auto) 82.5 %; Platelet Count 223 K/uL (130-400); RDW Coefficient of Variation 14.5 % (11.5-14.5); RDW Standard Deviation 50.6 fL (36.4-46.3); White Blood Count 18.96 K/uL (4.8-10.8)
[2019-12-24 17:40] LABS: Alanine Aminotransferase 14 U/L (12-78); Albumin Level 3.6 gm/dl (3.4-5.0); Aspartate Aminotransferase 11 U/L (15-37); BUN Creatinine Ratio 11.7 (10-20); Blood Urea Nitrogen 23 mg/dl (7-18); Carbon Dioxide 31 mmol/L (21-32); Chloride 106 mmol/L (98-107); Creatinine Clr Calc Pharmacy 29.3 ml/min; Est GFR (African American) 36.4; Est GFR (Non-African American) 31.4; Glucose 100 mg/dl (70-99); Magnesium 2.5 mg/dl (1.8-2.4); Potassium 3.8 mmol/L (3.5-5.1); Sodium 140 mmol/L (136-145)
[2019-12-24] MEDS ORDERED: PIPERACILL/TAZOBAC CONSULT ACTIVE PRN (17:45)
[2019-12-24] MEDS ORDERED: PIPERACILLIN/TAZOBACTAM 4.5 GM/120 ML BAG IV ONE (17:45)
[2019-12-24 17:51] LABS: Albumin Globulin Ratio 0.7 (0.9-2); Alkaline Phosphatase 135 U/L (45-117); Bilirubin,Total 0.8 mg/dl (0.2-1); Globulin 5.5 gm/dl (2.5-4.0); Total Protein 9.1 gm/dl (6.4-8.2); Troponin I < 0.015 ng/ml (0-0.045)
[2019-12-24 18:05] LABS: INR 1.2 (0.9-1.1); Partial Thromboplastin Ratio 1.2; Partial Thromboplastin Time 34.6 Seconds (21.0-31.0); Prothrombin Time 12.4 Seconds (9.0-12.0)
--- NOTE | 2019-12-24 18:23 | CT Scan Report ---
HEAD CT NONCONTRAST CT DOSE: 614.27 mGy.cm HISTORY: weakness TECHNIQUE: Multiaxial CT images of the head were performed without the use of intravenous contrast. A utomated exposure control was utilized for this study. A dose lowering technique was utilized adheri ng to the principles of ALARA. Comparison: Head CT 10/25/2019. Findings: A few partially opacified ethmoid air cells and a small fluid level within the left sphenoi d sinus. This remains unchanged. The mastoid air cells are clear. The calvarium and skull base are in tact. There is no mass, hematoma, midline shift, acute infarct. White matter hypodensity is nonspecif ic but suggestive of microvascular ischemic change. The ventricles and sulci demonstrate mild age-rel ated involutional changes. Motion artifact. Impression: Motion artifact. No definite acute intracranial abnormality. ACT 112: Negative or not required by law. Electronically signed by: Travis Cabrera M.D. 12/24/2019 6:22 PM
--- NOTE | 2019-12-24 18:47 | XRay Report ---
XR chest 1V portable HISTORY: weakness COMPARISON: Chest 10/25/2019. FINDINGS: The lungs are clear. Cardiac silhouette is normal in size. No pleural effusions. No pneumot horax. Left-sided dual-chamber pacemaker. Slight elevation left hemidiaphragm, unchanged. IMPRESSION: No significant change compared to the prior study. No acute process. ACT 112: Negative or not required by law. Electronically signed by: Travis Cabrera M.D. 12/24/2019 6:46 PM
--- NOTE | 2019-12-24 18:53 | Ultrasound Report ---
RENAL ULTRASOUND HISTORY: b/l ureteral stent r/o hydronephrosis COMPARISON: Abdomen and pelvis CT 11/25/2019. FINDINGS: Right kidney: 11.8 cm. The stent is difficult identified within the right renal collecting system but is likely present. No hydronephrosis. Mild cortical thinning likely age-related. Left kidney: 11.9 cm. No hydronephrosis. The stent is not. Visualized. A few cysts with the largest m easuring 4.4 cm. Bladder: Bladder is decompressed by Michel catheter and not visualized. IMPRESSION: 1. No hydronephrosis. 2. Left renal cyst. 3. The bladder is decompressed by Michel catheter and not visualized. 4. The right renal stent is likely seen within the right renal collecting system. The left renal sten t was not clearly identified by ultrasound. ACT 112: Negative or not required by law. Electronically signed by: Travis Cabrera M.D. 12/24/2019 6:52 PM
--- NOTE | 2019-12-24 19:02 | History & Physical Report ---
Date of Service December 24, 2019 Assessment & Plan (1) Complicated UTI (urinary tract infection): Left flank pain. Possible ureteritis vs. pyelonephritis Continue IV Zosyn Follow up blood and urine cultures Consult urology given he is due ureteral stent removal and complex history of hydronephrosis although reassuringly no hydronephrosis on ultrasound currently. (2) Weakness: Suspect acute on chronic likely worse with complicated UTI as above. (3) Chronic indwelling Michel catheter: Changed in ER. Continue tamsulosin and bethanechol. (4) CKD (chronic kidney disease) stage 3, GFR 30-59 ml/min: Stage 3/4. Cr appears at baseline. (5) Atrial fibrillation: Paroxysmal We will hold Eliquis pending urology consult as may need ureteral stent replacement. Currently in normal sinus rhythm. Continue carvedilol for rate control. (6) Hypothyroidism: TSH 3.13 Continue levothyroxine 100 mcg p.o. at bedtime (7) CAD (coronary artery disease), [place] coronary artery: Continue aspirin 81 mg p.o. every morning, carvedilol 3.125 mg p.o. twice daily, suspect not on EMILEE/ARB due to CKD, simvastatin 80 mg p.o. at bedtime (consider reduction of this as an outpatient if he remains weak) Continue isosorbide mononitrate ER 60 mg p.o. every morning for angina (8) Dementia: Continue donepezil 10 mg p.o.at bedtime memantine 10 mg twice daily (9) Anxiety and depression: Continue bupropion SR 100 mg daily, citalopram 10 mg p.o. daily (10) DVT prophylaxis: Restart Eliquis pending urology consult and decision regarding ureteral stents Admission and Anticipated Discharge Date Admission Date: 12/24/2019 History of Present Illness Chief Complaint: Generalized weakness Primary Care Provider: DO Alfredo Soto Merrill is an 79 year old male with dementia who presents from home to the ER due to generalized weakness and fatigue. Unable to get any history from the patient due to dementia. He is orientated to her (daughter with him in the ER) but otherwise unable to tell me where he is or the correct date. His daughter is also unable to tell me much history other than the home nursing agency thought he should be here. She does report he has been sleeping more for the last 1.5 weeks with increased shortness of breath, generalized weakness and generally more confused. He has a history of bilateral hydronephrosis with bilateral ureteral stents which are due to be removed this coming week. He also has a chronic folet catheter which was exchanged in the ER. He is usually mobile with a walker. Tried calling his but no answer on number provided. In the ER CT head and chest x-ray were unremarkable. WBC elevated at 18.96. He was referred to medicine for UTI and weakness. Allergies Allergy/AdvReac Type Severity Reaction Status Date / Time captopril Allergy Severe ANAPHYLAXIS Verified 12/24/19 20:07 Iodinated Contrast Media Allergy Severe ANAPHYLAXIS Verified 12/24/19 20:07 levofloxacin Allergy Severe ANAPHYLAXIS Verified 12/24/19 20:07 morphine Allergy Severe Anaphylaxis Verified 12/24/19 20:07 oxaprozin Allergy Severe ANAPHYLAXIS Verified 12/24/19 20:07 Sulfa (Sulfonamide Allergy Severe Anaphylaxis Verified 12/24/19 20:07 Antibiotics) torsemide Allergy Severe ANAPHYLAXIS Verified 12/24/19 20:07 hydrocodone Allergy Mild RASH Verified 12/24/19 20:07 Home Medications Home Medications Medication Instructions Recorded Confirmed Type epinephrine [EpiPen] 0.3 mg IM UD PRN 06/05/18 12/24/19 History acetaminophen 650 mg PO Q4H PRN #30 tab 08/14/19 12/24/19 Rx citalopram 10 mg tablet 10 mg PO DAILY #90 tab 10/03/19 12/24/19 Rx apixaban 5 mg tablet 5 mg PO BID #180 tab 10/04/19 12/24/19 Rx bupropion HCl 100 mg tablet,12 hr 100 mg PO DAILY #90 ea 10/04/19 12/24/19 Rx sustained-release carvedilol 3.125 mg tablet 3.125 mg PO BID #180 tab 10/04/19 12/24/19 Rx donepezil 10 mg tablet 10 mg PO HS #90 tab 10/04/19 12/24/19 Rx ferrous sulfate 325 mg (65 mg 325 mg PO BIDM #180 tab 10/04/19 12/24/19 Rx iron) tablet,delayed release folic acid 1 mg tablet 1 mg PO QAM #90 tab 10/04/19 12/24/19 Rx isosorbide mononitrate 60 mg 60 mg PO QAM #90 tab 10/04/19 12/24/19 Rx tablet,extended release 24 hr levothyroxine 100 mcg tablet 100 mcg PO HS #90 tab 10/04/19 12/24/19 Rx memantine 10 mg tablet 10 mg PO BID #180 tab 10/04/19 12/24/19 Rx simvastatin 80 mg tablet 80 mg PO HS #90 tab 10/04/19 12/24/19 Rx tamsulosin 0.4 mg capsule 0.4 mg PO QPM #90 cap 10/04/19 12/24/19 Rx gabapentin 300 mg capsule 300 mg PO HS #90 cap 11/03/19 12/24/19 Rx tramadol 50 mg tablet 50 mg PO TID PRN #60 tab 11/03/19 12/24/19 Rx aspirin 81 mg PO QAM 12/24/19 12/24/19 History bethanechol chloride 50 mg PO QID 12/24/19 12/24/19 History Past Med/Surg History Medical History (Updated 12/25/19 @ 11:25 by Wilberto Arce MD) Anxiety and depression Aortic stenosis Mild (MG 11 mmHg, UZMA 1.1 cm2) per 11/2015 ECHO Atrial fibrillation on Eliquis-F/U PCP BPH w urinary obs/LUTS CAD (coronary artery disease), [place] coronary artery S/P BMS to OM (1997). Caths also 2006, 2008 and 2013, no stents placed. Most recent cath in 2013 showed no angiographically significant stenosis other than 20-30% in-stent restenosis of OM. Cardiac pacemaker in situ Implanted 2008 (2/[address] [facility]. Last pacer check 07/2019 [facility] Chronic indwelling Michel catheter Chronic pain CKD (chronic kidney disease) stage 3, GFR 30-59 ml/min Dementia Dyslipidemia GERD (gastroesophageal reflux disease) controlled History of kidney stones History of DE (myocardial infarction) 1997 HTN (hypertension), benign Hx of gastric ulcer Hypothyroidism Iron deficiency anemia Sleep apnea NO DEVICE Surgical History H/O total knee replacement RIGHT/LEFT History of cardiac cath MULTIPLE WITH TOTAL 4 STENTS-LAST ONE 2 YRS AGO [facility] History of cataract surgery B/L History of lithotripsy History of lumbar fusion History of prostate surgery PARTIAL PROSTECTOMY History of thyroidectomy S/P coronary artery stent placement (1997) Bare Metal stent x 3 to LCX S/P placement of cardiac pacemaker (~2008) 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 2017-PACER CHECK [facility] S/P TURP S/P ureteral stent placement Cysto, B/L RPG, right ureteroscopy, stent exchange: 07/06/18: LMA#5 at [facility] CYSTO STENT EXCHANGE 11/2018 Family History Father Diabetes Mother Coronary heart disease Hypertension Brother Seizure Denies family history of Ovarian cancer Prostate cancer Myocardial infarction Breast cancer Colorectal cancer Social History Smoking Status: Former smoker Tobacco Type: Cigarettes Second Hand Exposure: No; Hx Alcohol Use: No Hx Substance Use: No Preferred Language: Lithuanian Communication Ability: Effective Visual Impairment: No Limitations Security Agent Required: No Beliefs That Will Affect Care: None marital status: Current Living Situation: Spouse and Family Current Living Situation Comment: per RN report from ER, pt lives with and daughter current occupational status: retired How many Children do You have: 3 Feels Safe at Home: Yes Childhood Exposure to Second-Hand Smoke: No caffeine: Yes (Coffee 3 per day.) during the past year weight has: remained stable Dental Care, Regularly: No Physical Activity Frequency: Does not Exercise Seatbelt Use: always Sunscreen Use: No Assistive Devices: Walker Review of Systems Review of Systems: Unobtainable due to cognitive status Physical Exam Constitutional: well developed and + frail appearing; + not well nourished and no acute distress Eyes: + anicteric sclerae; normal pupil size ENMT: external ear and nose normal, oropharynx normal Neck: trachea midline Respiratory: normal respiratory effort, lungs clear to auscultation Cardiovascular: Rate/Rhythm: regular rate and regular rhythm Heart Sounds: + murmur (throughout) Extremities: normal capillary refill; no calf tender ness and no pedal edema Gastrointestinal (Abdomen): Percussion/Palpation: + abdomen tender (Suprapubic) and abdomen soft; no guarding and abdomen not rigid Skin: no rashes, warm and dry (No areas of cellulitis) Neurologic: moves all extremities, awake and + confused Speech / Cognition: normal speech Motor/Sensory: no tremor and no pronator drift Psychiatric: Orientation: alert and oriented to person; + not oriented to place and + not oriented to time Apperance: + disheveled Eye Contact: + fair eye contact Genitourinary: + CVA tenderness (Left flank) Results & Data Results & Data ([facility]) Vital Signs (Past 12 Hours) Vital Signs Temp Pulse Resp BP Pulse Ox 12/24/19 18:48 79 26 H 119/74 95 12/24/19 18:00 80 22 125/72 94 12/24/19 17:53 86 21 121/72 92 12/24/19 17:00 82 27 H 139/82 93 12/24/19 16:56 93 12/24/19 16:55 82 24 144/91 H 92 12/24/19 16:23 37.1 C 85 18 163/91 H [address] NONCONTRAST Impression: Motion artifact. No definite acute intracranial abnormality. XR chest 1V portable IMPRESSION: No significant change compared to the prior study. No acute process. RENAL ULTRASOUND IMPRESSION: 1. No hydronephrosis. 2. Left renal cyst. 3. The bladder is decompressed by Michel catheter and not visualized. 4. The right renal stent is likely seen within the right renal collecting syste m. The left renal stent was not clearly identified by ultrasound. Medications Administered ER medications given: Zosyn 4.5 g IV ECG Indication: altered mental status Rate (beats per minute): 85 Rhythm: normal sinus Findings: + other (Nonspecific T wave abnormality improved in anterior lateral leads) and + left axis deviation; no acute ischemic change Comparison ECG Date: from (October 25, 2019) Change: the following changes noted (Nonspecific T wave abnormality improved) Code Status & VTE Plan Code Status Conditional code as per previous admission discussed with daughter at bedside but unable to confirm with his at the present time. VTE Prophylaxis Plan VTE Prophylaxis will be ordered: Yes PG Care Time/CCT Total # of Minutes Spent Total Time Spent with Patient: Total time spent is greater than 50% in coordination of care (as documented) at patient's floor/unit and/or counseling patient: Coding Level of Care Code 94768 OBS Care - Level 3 Diagnoses Complicated UTI (urinary tract infection) N39.0 Weakness R53.1 Chronic indwelling Michel catheter Z97.8 CKD (chronic kidney disease) stage 3, GFR 30-59 ml/min N18.3 Atrial fibrillation I48.91 Hypothyroidism E03.9 Hypothyroidism type: acquired CAD (coronary artery disease), [place] coronary artery I25.10 [place] vs. transplanted heart: [place] heart Associated angina: without angina Dementia F03.90 Dementia behavioral disturbance: without behavioral disturbance Dementia type: unspecified type Anxiety and depression F41.9; F32.9 DVT prophylaxis Z29.9 (1) Hypothyroidism Hypothyroidism type: acquired Qualified Code(s): E03.9 - Hypothyroidism, unspecified (2) Dementia Dementia behavioral disturbance: without behavioral disturbance Dementia type: unspecified type Qualified Code(s): F03.90 - Unspecified dementia without behavioral disturbance (3) CAD (coronary artery disease), [place] coronary artery [place] vs. transplanted heart: [place] heart Associated angina: without angina Qualified Code(s): I25.10 - Atherosclerotic heart disease of [place] coronary artery without angina pectoris
[2019-12-24] MEDS ORDERED: ACETAMINOPHEN 325 MG TAB PO PRN (21:31)
[2019-12-24] MEDS ORDERED: ALUMINUM/MAGNESIUM SUSP 30 ML UDC PO PRN (21:33)
[2019-12-24] MEDS ORDERED: INFLUENZA ADMINISTRATION CHARGE ONE (21:47)
[2019-12-24] MEDS ORDERED: PNEUMOCOCCAL ADMINISTRATION CHARGE ONE (21:47)
[2019-12-24] MEDS ORDERED: PNEUMOCOCCAL POLYSACCHARIDES 25 MCG/0.5 ML VIAL/SYR IM ONE (21:47)
[2019-12-24] MEDS ORDERED: INFLUENZA VIRUS QUAD VACCINE 0.5 ML SYR IM ONE (21:47)
[2019-12-24] MEDS: DONEPEZIL HCL 10 MG TAB PO SCH (22:18)
[2019-12-24] MEDS: MEMANTINE HCL 10 MG TAB PO SCH (22:18)
[2019-12-24] MEDS: carvediloL 3.125 MG TAB PO SCH (22:18)
[2019-12-24] MEDS: TAMSULOSIN HCL 0.4 MG CAP PO SCH (22:18)
--- NOTE | 2019-12-24 22:46 | Emergency Department Note ---
History of Present Illness General Chief complaint: Weakness Stated complaint: WEAKNESS, FATIGUE Time Seen by Provider: 12/24/19 16:16 Source: patient, RN notes reviewed and old records reviewed Mode of arrival: EMS Limitations: altered mental status (Dementia) History of Present Illness Provider complaint: Weakness, fatigue This patient is an 79-year-old male who presents emergency department by ambulance, stating that his and daughter thought he should be here. The patient is unable to tell me where he is but does say "I am 79 years old." Patient states his left leg bothers him sometimes. By nursing records, the patient's and daughter were concerned for weakness and fatigue. He apparently had difficulty getting out of his chair tonight. The patient does have a history of chronic Michel catheter and ureteral stents that were recently exchanged. Patient was treated with cefuroxime recently for UTI. The patient currently denies any complaints although his reliability is questionable at b est. Home Medications Home Medications Medication Instructions Recorded Confirmed Type epinephrine [EpiPen] 0.3 mg IM UD PRN 06/05/18 12/24/19 History acetaminophen 650 mg PO Q4H PRN #30 tab 08/14/19 12/24/19 Rx citalopram 10 mg tablet 10 mg PO DAILY #90 tab 10/03/19 12/24/19 Rx apixaban 5 mg tablet 5 mg PO BID #180 tab 10/04/19 12/24/19 Rx bupropion HCl 100 mg tablet,12 hr 100 mg PO DAILY #90 ea 10/04/19 12/24/19 Rx sustained-release carvedilol 3.125 mg tablet 3.125 mg PO BID #180 tab 10/04/19 12/24/19 Rx donepezil 10 mg tablet 10 mg PO HS #90 tab 10/04/19 12/24/19 Rx ferrous sulfate 325 mg (65 mg 325 mg PO BIDM #180 tab 10/04/19 12/24/19 Rx iron) tablet,delayed release folic acid 1 mg tablet 1 mg PO QAM #90 tab 10/04/19 12/24/19 Rx isosorbide mononitrate 60 mg 60 mg PO QAM #90 tab 10/04/19 12/24/19 Rx tablet,extended release 24 hr levothyroxine 100 mcg tablet 100 mcg PO HS #90 tab 10/04/19 12/24/19 Rx memantine 10 mg tablet 10 mg PO BID #180 tab 10/04/19 12/24/19 Rx simvastatin 80 mg tablet 80 mg PO HS #90 tab 10/04/19 12/24/19 Rx tamsulosin 0.4 mg capsule 0.4 mg PO QPM #90 cap 10/04/19 12/24/19 Rx gabapentin 300 mg capsule 300 mg PO HS #90 cap 11/03/19 12/24/19 Rx tramadol 50 mg tablet 50 mg PO TID PRN #60 tab 11/03/19 12/24/19 Rx aspirin 81 mg PO QAM 12/24/19 12/24/19 History bethanechol chloride 50 mg PO QID 12/24/19 12/24/19 History Allergies Allergy/AdvReac Type Severity Reaction Status Date / Time captopril Allergy Severe ANAPHYLAXIS Verified 12/24/19 20:07 Iodinated Contrast Media Allergy Severe ANAPHYLAXIS Verified 12/24/19 20:07 levofloxacin Allergy Severe ANAPHYLAXIS Verified 12/24/19 20:07 morphine Allergy Severe Anaphylaxis Verified 12/24/19 20:07 oxaprozin Allergy Severe ANAPHYLAXIS Verified 12/24/19 20:07 Sulfa (Sulfonamide Allergy Severe Anaphylaxis Verified 12/24/19 20:07 Antibiotics) torsemide Allergy Severe ANAPHYLAXIS Verified 12/24/19 20:07 hydrocodone Allergy Mild RASH Verified 12/24/19 20:07 Past Med/Surg History Medical History (Updated 12/24/19 @ 23:04 by Angelika Ngo MD) Anxiety and depression Aortic stenosis Mild (MG 11 mmHg, UZMA 1.1 cm2) per 11/2015 ECHO Atrial fibrillation on Eliquis-F/U PCP BPH w urinary obs/LUTS CAD (coronary artery disease), [place] coronary artery S/P BMS to OM (1997). Caths also 2006, 2008 and 2013, no stents placed. Most recent cath in 2013 showed no angiographically significant stenosis other than 20-30% in-stent restenosis of OM. Cardiac pacemaker in situ Implanted 2008 (2/ SSS). [facility]. Last pacer check 07/2019 [facility] Chronic indwelling Michel catheter Chronic pain CKD (chronic kidney disease) stage 3, GFR 30-59 ml/min Dementia Dyslipidemia GERD (gastroesophageal reflux disease) controlled History of kidney stones History of TN (myocardial infarction) 1997 HTN (hypertension), benign Hx of gastric ulcer Hypothyroidism Iron deficiency anemia Sleep apnea NO DEVICE Surgical History H/O total knee replacement RIGHT/LEFT History of cardiac cath MULTIPLE WITH TOTAL 4 STENTS-LAST ONE 2 YRS AGO [facility] History of cataract surgery B/L History of lithotripsy History of lumbar fusion History of prostate surgery PARTIAL PROSTECTOMY History of thyroidectomy S/P coronary artery stent placement (1997) Bare Metal stent x 3 to LCX S/P placement of cardiac pacemaker (~2008) 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 2017-PACER CHECK [facility] S/P TURP S/P ureteral stent placement Cysto, B/L RPG, right ureteroscopy, stent exchange: 07/06/18: LMA#5 at [facility] STENT EXCHANGE 11/2018 Family History Father Diabetes Mother Coronary heart disease Hypertension Brother Seizure Denies family history of Ovarian cancer Prostate cancer Myocardial infarction Breast cancer Colorectal cancer Social History Smoking Status: Former smoker Tobacco Type: Cigarettes Second Hand Exposure: No; Hx Alcohol Use: No Hx Substance Use: No Preferred Language: German Communication Ability: Effective Visual Impairment: No Limitations Paramedic Instructor Required: No Beliefs That Will Affect Care: None marital status: Current Living Situation: Spouse and Family Current Living Situation Comment: per RN report from ER, pt lives with and daughter current occupational status: retired How many Children do You have: 3 Feels Safe at Home: Yes Childhood Exposure to Second-Hand Smoke: No caffeine: Yes (Coffee 3 per day.) during the past year weight has: remained stable Dental Care, Regularly: No Physical Activity Frequency: Does not Exercise Seatbelt Use: always Sunscreen Use: No Assistive Devices: Walker Review of Systems Unobtainable due to cognitive status (Dementia) Physical Exam Vital Signs Vital Signs - 24 hr 12/24/19 16:23 12/24/19 16:55 12/24/19 16:56 Temperature 37.1 C Temperature Source Oral Pulse Rate 85 82 Respiratory Rate 18 24 Respiratory Effort / Characteristics Non-Labored Spontaneous Respiratory Depth Normal Respiratory Pattern Regular Blood Pressure 163/91 H 144/91 H Blood Pressure Mean 115 119 Blood Pressure Position Lying Pulse Oximetry 93 92 93 Oxygen Delivery Method Room Air Room Air Room Air Sepsis Recent Fever Within 48 Hours No Sepsis New/Unexplained Change in Mental Status N/A Sepsis Action Taken by Nursing No Action Required 12/24/19 17:00 12/24/19 17:53 12/24/19 18:00 Temperature Temperature Source Pulse Rate 82 86 80 Respiratory Rate 27 H 21 22 Respiratory Effort / Characteristics Respiratory Depth Respiratory Pattern Blood Pressure 139/82 121/72 125/72 Blood Pressure Mean 102 77 80 Blood Pressure Position Pulse Oximetry 93 92 94 Oxygen Delivery Method Room Air Room Air Room Air Sepsis Recent Fever Within 48 Hours Sepsis New/Unexplained Change in Mental Status Sepsis Action Taken by Nursing 12/24/19 18:48 12/24/19 19:00 12/24/19 19:30 Temperature Temperature Source Pulse Rate 79 80 76 Respiratory Rate 26 H 24 16 Respiratory Effort / Characteristics Respiratory Depth Respiratory Pattern Blood Pressure 119/74 119/70 113/68 Blood Pressure Mean 88 76 78 Blood Pressure Position Pulse Oximetry 95 94 93 Oxygen Delivery Method Room Air Room Air Room Air Sepsis Recent Fever Within 48 Hours Sepsis New/Unexplained Change in Mental Status Sepsis Action Taken by Nursing Vital signs reviewed. General: Chronically ill-appearing 79-year-old male, in no significant distress. HEENT: No scleral icterus, PERRLA, neck supple. Atraumatic. Cardiovascular: Regular rate and rhythm, no extra sounds. Pulmonary: Clear to auscultation bilaterally, normal work of breathing. Abdomen: Soft, nontender, nondistended, positive bowel sounds. : Michel catheter in place. Musculoskeletal: Atraumatic, no peripheral edema. Neurologic: Patient awake alert and answers questions but not reliably. Skin: Warm, dry, no rash Course Administered Medications Carvedilol (Carvedilol 3.125 Mg Tab) 3.125 mg PO BIDM FLEX Stop: 01/23/20 22:59 Last Admin: 12/24/19 22:18 Dose: 3.125 mg Documented by: [id number] Donepezil HCl (Donepezil Hcl 10 Mg Tab) 10 mg PO HS [facility] Stop: 01/23/20 22:59 Last Admin: 12/24/19 22:18 Dose: 10 mg Documented by: [id number] Memantine (Memantine Hcl 10 Mg Tab) 10 mg PO BID FLEX Stop: 01/23/20 22:59 Last Admin: 12/24/19 22:18 Dose: 10 mg Documented by: [id number] Tamsulosin HCl (Tamsulosin Hcl 0.4 Mg Cap) 0.4 mg PO QPM FLEX Stop: 01/23/20 22:59 Last Admin: 12/24/19 22:18 Dose: 0.4 mg Documented by: [id number] Discontinued Medications Piperacillin Sod/Tazobactam Sod (Zosyn) 4.5 gm in 120 mls @ 240 mls/hr IV NOW ONE Stop: 12/24/19 18:14 Last Infusion: 12/24/19 18:20 Dose: 0 mls/hr Documented by: [id number] Admin: 12/24/19 17:50 Dose: 240 mls/hr Documented by: [id number] Medical Decision Making Differential Diagnosis Infection, dehydration, metabolic abnormality, hypo/hyperglycemia, electrolyte disturbance, anemia, hypoxia, cardiac sources, intracerebral event, toxicologic, neurologic, as well as other pathologies. Medical Records Attestation: I reviewed the patient's medical records. Home Medications Current Medication List: was personally reviewed by me Laboratory Data Attestation: I reviewed the patient's lab results. Result diagrams: 12/24/19 16:00 12/24/19 16:00 Lab Results 12/24/19 12/24/19 12/24/19 Range/Units 16:00 16:00 16:55 WBC 18.96 H (4.8-10.8) K/uL RBC 4.60 L (4.7-6.1) M/uL Hgb 14.3 (14.0-18.0) g/dL Hct 43.9 (42-52) % MCV 95.4 (80-100) fL MCH 31.1 (25-34) pg MCHC 32.6 (32-36) g/dL RDW Std Deviation 50.6 H (36.4-46.3) fL RDW Coeff of Curtis 14.5 (11.5-14.5) % Plt Count 223 (130-400) K/uL MPV 10.8 H (7.4-10.4) fL Immature Gran % (Auto) 0.3 % Neut % (Auto) 82.5 % Lymph % (Auto) 6.6 % Andrews % (Auto) 10.2 % Eos % (Auto) 0.3 % Baso % (Auto) 0.1 % Neut # (Auto) 15.63 H (1.4-6.5) K/uL Lymph # (Auto) 1.25 (1.2-3.4) K/uL Andrews # (Auto) 1.94 H (0.11-0.59) K/uL Eos # (Auto) 0.06 (0-0.5) K/uL Baso # (Auto) 0.02 (0-0.2) K/uL Immature Gran # (Auto) 0.06 H (0.00-0.02) K/uL PT (9.0-12.0) Seconds INR (0.9-1.1) APTT (21.0-31.0) Seconds PTT Ratio Sodium 140 (136-145) mmol/L Potassium 3.8 (3.5-5.1) mmol/L Chloride 106 (98-107) mmol/L Carbon Dioxide 31 (21-32) mmol/L Anion Gap 3.0 (3-11) BUN 23 H (7-18) mg/dl Creatinine 1.96 H (0.6-1.4) mg/dl Est Cr Clr Drug Dosing 29.3 ml/min Est GFR ( Amer) 36.4 Est GFR (Non-Af Amer) 31.4 BUN/Creatinine Ratio 11.7 (10-20) Glucose 100 H (70-99) mg/dl Lactate (0.4-2.0) mmol/L Calcium 9.0 (8.5-10.1) mg/dl Magnesium 2.5 H (1.8-2.4) mg/dl Total Bilirubin 0.8 (0.2-1) mg/dl AST 11 L (15-37) U/L ALT 14 (12-78) U/L Alkaline Phosphatase 135 H (45-117) U/L Troponin I < 0.015 (0-0.045) ng/ml Total Protein 9.1 H (6.4-8.2) gm/dl Albumin 3.6 (3.4-5.0) gm/dl Globulin 5.5 H (2.5-4.0) gm/dl Albumin/Globulin Ratio 0.7 L (0.9-2) TSH 3.130 (0.300-4.500) uIu/ml Urine Color Urine Appearance (Clear) Urine pH (4.5-7.5) Ur Specific [place] (1.000-1.030) Urine Protein (Negative) Urine Glucose (UA) (Negative) Urine Ketones (Negative) Urine Blood (Negative) Urine Nitrite (Negative) Urine Bilirubin (Negative) Urine Urobilinogen (Negative) Ur Leukocyte Esterase (Negative) Urine WBC (Auto) (0-5) /hpf Urine RBC (Auto) (0-4) /hpf U Hyaline Cast (Auto) (0-5) /lpf U Epithel Cells (Auto) (0-5) /lpf Urine Bacteria (Auto) (Negative) Urine Yeast COVID[facility]19 [email or web address] SARS-CoV-2, RNA, NAAT (NEGATIVE) 12/24/19 12/24/19 12/24/19 Range/Units 16:55 16:56 17:34 WBC (4.8-10.8) K/uL RBC (4.7-6.1) M/uL Hgb (14.0-18.0) g/dL Hct (42-52) % MCV (80-100) fL MCH (25-34) pg MCHC (32-36) g/dL RDW Std Deviation (36.4-46.3) fL RDW Coeff of Curtis (11.5-14.5) % Plt Count (130-400) K/uL MPV (7.4-10.4) fL Immature Gran % (Auto) % Neut % (Auto) % Lymph % (Auto) % Andrews % (Auto) % Eos % (Auto) % Baso % (Auto) % Neut # (Auto) (1.4-6.5) K/uL Lymph # (Auto) (1.2-3.4) K/uL Andrews # (Auto) (0.11-0.59) K/uL Eos # (Auto) (0-0.5) K/uL Baso # (Auto) (0-0.2) K/uL Immature Gran # (Auto) (0.00-0.02) K/uL PT (9.0-12.0) Seconds INR (0.9-1.1) APTT (21.0-31.0) Seconds PTT Ratio Sodium (136-145) mmol/L Potassium (3.5-5.1) mmol/L Chloride (98-107) mmol/L Carbon Dioxide (21-32) mmol/L Anion Gap (3-11) BUN (7-18) mg/dl Creatinine (0.6-1.4) mg/dl Est Cr Clr Drug Dosing ml/min Est GFR ( Amer) Est GFR (Non-Af Amer) BUN/Creatinine Ratio (10-20) Glucose (70-99) mg/dl Lactate 1.3 (0.4-2.0) mmol/L Calcium (8.5-10.1) mg/dl Magnesium (1.8-2.4) mg/dl Total Bilirubin (0.2-1) mg/dl AST (15-37) U/L ALT (12-78) U/L Alkaline Phosphatase (45-117) U/L Troponin I (0-0.045) ng/ml Total Protein (6.4-8.2) gm/dl Albumin (3.4-5.0) gm/dl Globulin (2.5-4.0) gm/dl Albumin/Globulin Ratio (0.9-2) TSH (0.300-4.500) uIu/ml Urine Color Kika Urine Appearance Turbid A (Clear) Urine pH 7.0 (4.5-7.5) Ur Specific [place] 1.016 (1.000-1.030) Urine Protein 2+ H (Negative) Urine Glucose (UA) Negative (Negative) Urine Ketones Negative (Negative) Urine Blood 3+ H (Negative) Urine Nitrite Positive A (Negative) Urine Bilirubin Negative (Negative) Urine Urobilinogen Negative (Negative) Ur Leukocyte Esterase 3+ H (Negative) Urine WBC (Auto) >30 H (0-5) /hpf Urine RBC (Auto) >30 H (0-4) /hpf U Hyaline Cast (Auto) 1-5 (0-5) /lpf U Epithel Cells (Auto) >30 H (0-5) /lpf Urine Bacteria (Auto) 2+ H (Negative) Urine Yeast Not Reportable COVID-19 Eval Order SARS-CoV-2, RNA, NAAT NEGATIVE (NEGATIVE) 12/24/19 Range/Units 17:34 WBC (4.8-10.8) K/uL RBC (4.7-6.1) M/uL Hgb (14.0-18.0) g/dL Hct (42-52) % MCV (80-100) fL MCH (25-34) pg MCHC (32-36) g/dL RDW Std Deviation (36.4-46.3) fL RDW Coeff of Curtis (11.5-14.5) % Plt Count (130-400) K/uL MPV (7.4-10.4) fL Immature Gran % (Auto) % Neut % (Auto) % Lymph % (Auto) % Andrews % (Auto) % Eos % (Auto) % Baso % (Auto) % Neut # (Auto) (1.4-6.5) K/uL Lymph # (Auto) (1.2-3.4) K/uL Andrews # (Auto) (0.11-0.59) K/uL Eos # (Auto) (0-0.5) K/uL Baso # (Auto) (0-0.2) K/uL Immature Gran # (Auto) (0.00-0.02) K/uL PT 12.4 H (9.0-12.0) Seconds INR 1.2 H (0.9-1.1) APTT 34.6 H (21.0-31.0) Seconds PTT Ratio 1.2 Sodium (136-145) mmol/L Potassium (3.5-5.1) mmol/L Chloride (98-107) mmol/L Carbon Dioxide (21-32) mmol/L Anion Gap (3-11) BUN (7-18) mg/dl Creatinine (0.6-1.4) mg/dl Est Cr Clr Drug Dosing ml/min Est GFR ( Amer) Est GFR (Non-Af Amer) BUN/Creatinine Ratio (10-20) Glucose (70-99) mg/dl Lactate (0.4-2.0) mmol/L Calcium (8.5-10.1) mg/dl Magnesium (1.8-2.4) mg/dl Total Bilirubin (0.2-1) mg/dl AST (15-37) U/L ALT (12-78) U/L Alkaline Phosphatase (45-117) U/L Troponin I (0-0.045) ng/ml Total Protein (6.4-8.2) gm/dl Albumin (3.4-5.0) gm/dl Globulin (2.5-4.0) gm/dl Albumin/Globulin Ratio (0.9-2) TSH (0.300-4.500) uIu/ml Urine Color Urine Appearance (Clear) Urine pH (4.5-7.5) Ur Specific [place] (1.000-1.030) Urine Protein (Negative) Urine Glucose (UA) (Negative) Urine Ketones (Negative) Urine Blood (Negative) Urine Nitrite (Negative) Urine Bilirubin (Negative) Urine Urobilinogen (Negative) Ur Leukocyte Esterase (Negative) Urine WBC (Auto) (0-5) /hpf Urine RBC (Auto) (0-4) /hpf U Hyaline Cast (Auto) (0-5) /lpf U Epithel Cells (Auto) (0-5) /lpf Urine Bacteria (Auto) (Negative) Urine Yeast COVID-19 Eval Order SARS-CoV-2, RNA, NAAT (NEGATIVE) Imaging Data Radiologist's Impression: HEAD CT NONCONTRAST CT DOSE: 614.27 mGy.cm HISTORY: weakness TECHNIQUE: Multiaxial CT images of the head were performed without the use of intravenous contrast. Automated exposure control was utilized for this study. A dose lowering technique was utilized adhering to the principles of ALARA. Comparison: Head CT 10/25/2019. Findings: A few partially opacified ethmoid air cells and a small fluid level within the left sphenoid sinus. This remains unchanged. The mastoid air cells are clear. The calvarium and skull base are intact. There is no mass, hematoma, midline shift, acute infarct. White matter hypodensity is nonspecific but suggestive of microvascular ischemic change. The ventricles and sulci demonstrate mild age-related involutional changes. Motion artifact. Impression: Motion artifact. No definite acute intracranial abnormality. ACT 112: Negative or not required by law. Electronically signed by: Travis Cabrera M.D. 12/24/2019 6:22 PM Dictated: 12/24/[id number]: 12/24/191816 XR chest 1V portable HISTORY: weakness COMPARISON: Chest 10/25/2019. FINDINGS: The lungs are clear. Cardiac silhouette is normal in size. No pleural effusions. No pneumothorax. Left-sided dual-chamber pacemaker. Slight elevation left hemidiaphragm, unchanged. IMPRESSION: No significant change compared to the prior study. No acute process. ACT 112: Negative or not required by law. Electronically signed by: Travis Cabrera M.D. 12/24/2019 6:46 PM Dictated: [id number]/[id number]: 12/24/191842 ECG Data Attestation: I personally reviewed and interpreted this ECG as follows: Indication: + weakness Rate (beats per minute): 85 Rhythm: + normal sinus ECG Intervals/blocks: + Normal QT-c ECG [place]: + Left axis deviation ECG ST segments: + Normal ST segments ECG Findings: + Q waves (Inferior); no PACs and no PVCs Blood Pressure Blood Pressure Findings: Normal blood pressure Blood Pressure Disposition: did not require urgent referral MDM Narrative This patient was evaluated and appeared to be in no significant distress. IV access was obtained and laboratory work was drawn. An order for cardiac monitoring was placed and the patient is noted to be in a normal sinus rhythm at 82 bpm. Patient was hydrated with normal saline solution. Laboratory work was obtained and patient is noted to have an elevated WBC of 18.96. Creatinine is elevated at 1.96 which is patient's baseline. UA is indicative of infection. Previous laboratory cultures were reviewed. He has recently just finished a course of cefuroxime. Patient was given Zosyn 4.5 g IV. Michel catheter was exchanged. Chest x-ray and head CT are unrevealing. Case was discussed with the hospitalist service who will evaluate the patient for admission and further management. Impression & Plan Complicated UTI (urinary tract infection), Dementia, Weakness, Chronic indwelling Michel catheter, Chronic kidney failure Discharge Plan Visit Data Chief Complaint: Weakness Stated Complaint: WEAKNESS, FATIGUE ED Provider: Angelika Ngo Discharge Problem: Complicated UTI (urinary tract infection), Dementia, Weakness, Chronic indwelling Michel catheter, Chronic kidney failure Patient Disposition: Admitted As Inpatient Discharge Instructions Interventions: ED Discharge Assessment Last Done: 12/24/19 20:40 Discharge Problem: Dementia Qualifiers: Dementia type: unspecified type Dementia behavioral disturbance: without behavioral disturbance Qualified Code(s): F03.90 - Unspecified dementia without behavioral disturbance Chronic kidney failure Qualifiers: Chronic kidney disease stage: stage 4 (severe) Qualified Code(s): N18.4 - Chronic kidney disease, stage 4 (severe)
[2019-12-25] MEDS: PIPERACILLIN/TAZOBACTAM 4.5 GM in DEXTROSE 5% 100 ML IV SCH ×2 (00:08→08:48)
[2019-12-25] MEDS: LEVOTHYROXINE SODIUM 100 MCG TABLET PO SCH (05:28)
--- NOTE | 2019-12-25 06:59 | Electrocardiogram Report ---
Test Reason : Blood Pressure : / mmHG Vent. Rate : 085 BPM Atrial Rate : 085 BPM P-R Int : 164 ms QRS Dur : 082 ms QT Int : 362 ms P-R-T Axes : 000 -47 086 degrees QTc Int : 430 ms Poor data quality, interpretation may be adversely affected Normal sinus rhythm Left axis deviation Inferior infarct , age undetermined Abnormal ECG When compared with ECG of 25-OCT-2019 00:18, Nonspecific T wave abnormality, improved in Anterolateral leads Confirmed by Tomas Fenton ([id number]) on 12/25/2019 6:59:00 AM Referred By: REFERRED SELF Confirmed By:Tomas Fenton
[2019-12-25 07:13] LABS: Basophils # (auto) 0.01 K/uL (0-0.2); Basophils % (auto) 0.1 %; Eosinophils # (auto) 0.06 K/uL (0-0.5); Eosinophils % (auto) 0.3 %; Hematocrit (blood only) 35.1 % (42-52); Hemoglobin 11.3 g/dL (14.0-18.0); Immature Granulocytes # (auto) 0.04 K/uL (0.00-0.02); Immature Granulocytes % (auto) 0.2 %; Lymphocytes # (auto) 2.28 K/uL (1.2-3.4); Lymphocytes % (auto) 12.7 %; Mean Corpuscular Hemoglobin 30.7 pg (25-34); Mean Corpuscular Hgb Conc 32.2 g/dL (32-36); Mean Corpuscular Volume 95.4 fL (80-100); Mean Platelet Volume 10.2 fL (7.4-10.4); Monocytes # (auto) 2.26 K/uL (0.11-0.59); Monocytes % (auto) 12.6 %; Neutrophils # (auto) 13.27 K/uL (1.4-6.5); Neutrophils % (auto) 74.1 %; Platelet Count 196 K/uL (130-400); RDW Coefficient of Variation 14.8 % (11.5-14.5); RDW Standard Deviation 51.5 fL (36.4-46.3); Red Blood Count 3.68 M/uL (4.7-6.1); White Blood Count 17.92 K/uL (4.8-10.8)
[2019-12-25 07:48] LABS: BUN Creatinine Ratio 13.8 (10-20); Calcium 8.7 mg/dl (8.5-10.1); Creatinine Clr Calc Pharmacy 26.9 ml/min; Est GFR (African American) 34.2; Est GFR (Non-African American) 29.5; Potassium 3.7 mmol/L (3.5-5.1)
[2019-12-25] MEDS: ISOSORBIDE MONO EXTENDED REL 60 MG TABCR PO SCH (08:45)
[2019-12-25] MEDS: CITALOPRAM 20 MG TAB PO SCH (08:45)
[2019-12-25] MEDS: FERROUS SULFATE 325 MG TAB PO SCH ×2 (08:45→17:26)
[2019-12-25] MEDS: FOLIC ACID 1 MG TAB PO SCH (08:45)
[2019-12-25] MEDS: MEMANTINE HCL 10 MG TAB PO SCH ×2 (08:46→20:59)
[2019-12-25] MEDS: buPROPion SR 100 MG TABCR PO SCH (08:46)
[2019-12-25] MEDS: carvediloL 3.125 MG TAB PO SCH ×2 (08:47→17:26)
[2019-12-25] MEDS: BETHANECHOL CHL 25 MG TAB PO SCH ×4 (08:47→20:58)
[2019-12-25] MEDS: ASPIRIN 81 MG ECTAB PO SCH (08:47)
--- NOTE | 2019-12-25 09:58 | Hospitalist Progress Note ---
Date of Service December 25, 2019 Assessment & Plan (1) Sepsis: - leukocytosis and tachypnea (26), etiology is UTI COVID negative urine cultures with two different growths: > 100,000 gram neg bacilli as well as > 100,000 gram neg bacilli #2 blood cultures collected lactate 1.3 (2) Complicated UTI (urinary tract infection): Left flank pain. Possible ureteritis vs. pyelonephritis 12-23 started on IV Zosyn Will need 14 days treatment for pyelo Narrow coverage as able depending on urine culture and susceptibilities Consulted urology Dr. Harper will exchange the stent once infection has cleared (3) Weakness: PT/OT eval and treat (4) CKD (chronic kidney disease) stage 3, GFR 30-59 ml/min: baseline Cr 1.6 Michel exchanged in ER Urology believes not obstructed 12-24 Cr 2.06 (5) Atrial fibrillation: rate controlled holding eliquis for possible stent exchange cont coreg (6) Chronic indwelling Michel catheter: exchanged in ER, per urology note (7) Hypothyroidism: 12-23 TSH 3.130 well controlled cont synthroid 100mcg (8) GERD (gastroesophageal reflux disease): holding eliquis due to need for ureteral stent exchange, started SCDs (9) DVT prophylaxis: Admission and Anticipated Discharge Date Admission Date: December 24, 2019 Subjective Patient states his abdomen hurts. Has not had a BM in two days. Eating well. Denies nausea, vomiting. Denies dysuria. Michel placed without pain or injury. Denies other complaints. Review of Systems Constitutional: no fever, no chills, no fatigue, no weakness, no anorexia, no weight loss and no weight gain Ear, Nose, Mouth, Throat: no nasal congestion, no sore throat and no dysphagia Respiratory: no cough and no dyspnea Cardiovascular: no chest pain, no dyspnea on exertion, no orthopnea and no palpitations Gastrointestinal: no abdominal pain, no nausea, no vomiting, no hematemesis, no dysphagia, no constipation, no diarrhea/loose stools, no blood in stools and no melena Musculoskeletal: no back pain, no joint pain, no myalgia and no muscle weakness Integumentary: no rash, no lesions, no skin ulcer, no erythema, no dry skin and no pruritus Neurologic: no falls, no localized weakness, no generalized weakness, no numbness, no paresthesia, no tremor(s) and no headache(s) Psychiatric: no depression, no suicidal ideation, no homicidal ideation and no anxiety Endocrine: no cold intolerance and no heat intolerance Hematologic / Lymphatic: no easy bleeding and no easy bruising Physical Exam Constitutional: well developed and well nourished; no acute distress Eyes: PERRL, conjunctivae normal, anicteric sclerae ENMT: Mouth: oral mucous membranes not dry Respiratory: normal respiratory effort; no respiratory distress and no labored breathing Auscultation: lungs clear to auscultation bilaterally; no crackles, no rales, no rhonchi and no wheezes Cardiovascular: Rate/Rhythm: regular rate and regular rhythm Heart Sounds: no murmur and no cardiac rub Vessels: normal peripheral pulses and radial pulses present; no JVD Extremities: no edema Gastrointestinal (Abdomen): Inspection/Auscultation: abdomen normal to inspection and normal bowel sounds; abdomen not distended Percussion/Palpation: abdomen soft; abdomen nontender, no guarding, abdomen not rigid and no hepatosplenomegaly Musculoskeletal: Head/Neck/Chest: normocephalic and head atraumatic Spine: no cervical spinal tenderness, no cervical muscular tenderness, no thoracic spinal tenderness and no lumbar spinal tenderness Skin: no rashes, warm and dry Neurologic: CN's II-XI intact bilaterally and moves all extremities Motor/Sensory: no tremor and no sensory deficit Psychiatric: Orientation: alert, oriented to person, oriented to place and oriented to time Apperance: appropriately groomed; not disheveled Affect: euthymic affect; no anxious affect and no tearful affect Genitourinary: + CVA tenderness (Michel with minimal red tinged urine output) Results & Data Results & Data ([facility]) Vital Signs (Past 12 Hours) Vital Signs Temp Pulse Resp BP Pulse Ox 12/25/19 07:19 36.7 C 60 16 135/83 94 12/24/19 23:41 36.3 C L 60 16 137/79 94 Laboratory Results Abnormal lab results 12/24/19 12/24/19 12/24/19 Range/Units 16:00 16:00 16:56 WBC 18.96 H (4.8-10.8) K/uL RBC 4.60 L (4.7-6.1) M/uL Hgb (14.0-18.0) g/dL Hct (42-52) % RDW Std Deviation 50.6 H (36.4-46.3) fL RDW Coeff of Curtis (11.5-14.5) % MPV 10.8 H (7.4-10.4) fL Neut # (Auto) 15.63 H (1.4-6.5) K/uL [place] # (Auto) 1.94 H (0.11-0.59) K/uL Immature Gran # (Auto) 0.06 H (0.00-0.02) K/uL PT (9.0-12.0) Seconds INR (0.9-1.1) APTT (21.0-31.0) Seconds BUN 23 H (7-18) mg/dl Creatinine 1.96 H (0.6-1.4) mg/dl Glucose 100 H (70-99) mg/dl Magnesium 2.5 H (1.8-2.4) mg/dl AST 11 L (15-37) U/L Alkaline Phosphatase 135 H (45-117) U/L Total Protein 9.1 H (6.4-8.2) gm/dl Globulin 5.5 H (2.5-4.0) gm/dl Albumin/Globulin Ratio 0.7 L (0.9-2) Urine Appearance Turbid A (Clear) Urine Protein 2+ H (Negative) Urine Blood 3+ H (Negative) Urine Nitrite Positive A (Negative) Ur Leukocyte Esterase 3+ H (Negative) Urine WBC (Auto) >30 H (0-5) /hpf Urine RBC (Auto) >30 H (0-4) /hpf U Epithel Cells (Auto) >30 H (0-5) /lpf Urine Bacteria (Auto) 2+ H (Negative) 12/24/19 12/25/19 12/25/19 Range/Units 17:34 06:50 06:50 WBC 17.92 H (4.8-10.8) K/uL RBC 3.68 L (4.7-6.1) M/uL Hgb 11.3 L D (14.0-18.0) g/dL Hct 35.1 L (42-52) % RDW Std Deviation 51.5 H (36.4-46.3) fL RDW Coeff of Curtis 14.8 H (11.5-14.5) % MPV (7.4-10.4) fL Neut # (Auto) 13.27 H (1.4-6.5) K/uL [place] # (Auto) 2.26 H (0.11-0.59) K/uL Immature Gran # (Auto) 0.04 H (0.00-0.02) K/uL PT 12.4 H (9.0-12.0) Seconds INR 1.2 H (0.9-1.1) APTT 34.6 H (21.0-31.0) Seconds BUN 28 H (7-18) mg/dl Creatinine 2.06 H (0.6-1.4) mg/dl Glucose 110 H (70-99) mg/dl Magnesium (1.8-2.4) mg/dl AST (15-37) U/L Alkaline Phosphatase (45-117) U/L Total Protein (6.4-8.2) gm/dl Globulin (2.5-4.0) gm/dl Albumin/Globulin Ratio (0.9-2) Urine Appearance (Clear) Urine Protein (Negative) Urine Blood (Negative) Urine Nitrite (Negative) Ur Leukocyte Esterase (Negative) Urine WBC (Auto) (0-5) /hpf Urine RBC (Auto) (0-4) /hpf U Epithel Cells (Auto) (0-5) /lpf Urine Bacteria (Auto) (Negative) Medications Administered Current Inpatient Medications Acetaminophen (Acetaminophen 325 Mg Tab) 650 mg PO Q4H PRN PRN Reason: pain/fever Stop: 01/23/20 21:32 Al Hydrox/Mg Hydrox/Simethicone (Aluminum/Magnesium Susp 30 Ml Udc) 30 ml PO Q6H PRN PRN Reason: Dyspepsia Stop: 01/23/20 21:32 Aspirin (Aspirin 81 Mg Ectab) 81 mg PO QAM [facility] Stop: 01/24/20 08:59 Last Admin: 12/25/19 08:47 Dose: 81 mg Documented by: Bethanechol Chloride (Bethanechol Chl 25 Mg Tab) 50 mg PO QID [facility] Stop: 01/24/20 08:59 Last Admin: 12/25/19 08:47 Dose: 50 mg Documented by: Bupropion HCl (Bupropion Sr 100 Mg Tabcr) 100 mg PO DAILY [facility] Stop: 01/24/20 08:59 Last Admin: 12/25/19 08:46 Dose: 100 mg Documented by: Carvedilol (Carvedilol 3.125 Mg Tab) 3.125 mg PO BIDM [facility] Stop: 01/23/20 22:59 Last Admin: 12/25/19 08:47 Dose: 3.125 mg Documented by: Citalopram Hydrobromide (Citalopram 20 Mg Tab) 10 mg PO DAILY [facility] Stop: 01/24/20 08:59 Last Admin: 12/25/19 08:45 Dose: 10 mg Documented by: Donepezil HCl (Donepezil Hcl 10 Mg Tab) 10 mg PO [facility] Stop: 01/23/20 22:59 Last Admin: 12/24/19 22:18 Dose: 10 mg Documented by: Ferrous Sulfate (Ferrous Sulfate 325 Mg Tab) 325 mg PO BIDM [facility] Stop: 01/24/20 07:59 Last Admin: 12/25/19 08:45 Dose: 325 mg Documented by: Folic Acid (Folic Acid 1 Mg Tab) 1 mg PO QAM [facility] Stop: 01/24/20 08:59 Last Admin: 12/25/19 08:45 Dose: 1 mg Documented by: Gabapentin (Gabapentin 300 Mg Cap) 300 mg PO [facility] Stop: 01/24/20 20:59 Piperacillin Sod/Tazobactam (Sod 4.5 gm/ Dextrose) 120 mls @ 30 mls/hr IV Q8H [facility]; Protocol Stop: 12/25/19 13:00 Last Admin: 12/25/19 08:48 Dose: 30 mls/hr Documented by: Piperacillin Sod/Tazobactam (Sod 3.375 gm/ Dextrose) 115 mls @ 28.75 mls/hr IV Q8H [facility]; Protocol Stop: 01/04/20 15:59 Isosorbide Mononitrate (Isosorbide [place] Extended Rel 60 Mg Tabcr) [facility] [place] Stop: 01/24/20 08:59 Last Admin: 12/25/19 08:45 Dose: 60 mg Documented by: Levothyroxine Sodium (Levothyroxine Sodium 100 Mcg Tablet) [facility] Stop: 01/24/20 06:29 Last Admin: 12/25/19 05:28 Dose: 100 mcg Documented by: Memantine (Memantine Hcl 10 Mg Tab) 10 mg PO BID [facility] Stop: 01/23/20 22:59 Last Admin: 12/25/19 08:46 Dose: 10 mg Documented by: Miscellaneous Information (Piperacill/Tazobac Consult Active) 1 ea N/A UD PRN PRN Reason: Consult Stop: 01/23/20 17:44 Simvastatin (Simvastatin 80 Mg Tab) 80 mg PO HS [facility] Stop: 01/24/20 20:59 Tamsulosin HCl (Tamsulosin Hcl 0.4 Mg Cap) 0.4 mg PO QPM [facility] Stop: 01/23/20 22:59 Last Admin: 12/24/19 22:18 Dose: 0.4 mg Documented by: Tramadol HCl (Tramadol Hcl 50 Mg Tablet) 50 mg PO TID PRN PRN Reason: pain Stop: 01/23/20 21:30 PG Care Time/CCT Total # of Minutes Spent Total Time Spent with Patient: Total time spent is greater than 50% in coordination of care (as documented) at patient's floor/unit and/or counseling patient: Coding Level of Care Code 86570 Subseq Hosp Care Lvl 3 Diagnoses Sepsis A41.9 Sepsis acute organ dysfunction status: unspecified Sepsis type: sepsis due to unspecified organism Complicated UTI (urinary tract infection) N39.0 Weakness R53.1 CKD (chronic kidney disease) stage 3, GFR 30-59 ml/min N18.30 Chronic kidney disease stage 3 subtype: unspecified whether 3a or 3b Atrial fibrillation I48.91 Atrial fibrillation type: unspecified Chronic indwelling Michel catheter Z97.8 Hypothyroidism E03.9 Hypothyroidism type: acquired GERD (gastroesophageal reflux disease) K21.9 Esophagitis presence: esophagitis presence not specified DVT prophylaxis Z29.9 (1) CKD (chronic kidney disease) stage 3, GFR 30-59 ml/min Chronic kidney disease stage 3 subtype: unspecified whether 3a or 3b Qualified Code(s): N18.30 - Chronic kidney disease, stage 3 unspecified (2) Atrial fibrillation Atrial fibrillation type: unspecified Qualified Code(s): I48.91 - Unspecified atrial fibrillation (3) Hypothyroidism Hypothyroidism type: acquired Qualified Code(s): E03.9 - Hypothyroidism, unspecified (4) Sepsis Sepsis acute organ dysfunction status: unspecified Sepsis type: sepsis due to unspecified organism Qualified Code(s): A41.9 - Sepsis, unspecified organism (5) GERD (gastroesophageal reflux disease) Esophagitis presence: esophagitis presence not specified Qualified Code(s): K21.9 - Gastro-esophageal reflux disease without esophagitis
--- NOTE | 2019-12-25 11:51 | Urology Consultation ---
Date of Consultation December 25, 2019 Assessment & Plan (1) Chronic indwelling Myles catheter: Continue myles catheter - just changed in ER. Present on Admission?: Yes (2) Complicated UTI (urinary tract infection): Patient has bilateral stents as well as an indwelling myles catheter. At this time he has evidence of a complex UTI. Continue Zosyn at this time Await blood and urine cultures At this time, he has no obstruction, I would treat the infection and then later when he has improved proceed with his stent change. Present on Admission?: Yes History of Present Illness Reason for Consultation: Pyelonephritis Patient has a history of bilateral stents in the past as well as an indwelling myles catheter. He is unable to provide me with any history today other than he "feels like an old man." He states that he isn't having pain. Based on the records he was having left flank pain yesterday and also more fatigue as his care home. He has baseline dementia. ALEKSANDRA shows no hydronephrosis. His WBC is elevated on admission 18, now 17 today. [employer] 2.06. He was really seen in the urology office for preop appt for a stent change. Urine currently is growing Gram Negtive Bacilli. Patient is currently receiving Zosyn. Attending Physician: Susan Reagan MD Allergies Allergy/AdvReac Type Severity Reaction Status Date / Time captopril Allergy Severe ANAPHYLAXIS Verified 12/24/19 20:07 Iodinated Contrast Media Allergy Severe ANAPHYLAXIS Verified 12/24/19 20:07 levofloxacin Allergy Severe ANAPHYLAXIS Verified 12/24/19 20:07 morphine Allergy Severe Anaphylaxis Verified 12/24/19 20:07 oxaprozin Allergy Severe ANAPHYLAXIS Verified 12/24/19 20:07 Sulfa (Sulfonamide Allergy Severe Anaphylaxis Verified 12/24/19 20:07 Antibiotics) torsemide Allergy Severe ANAPHYLAXIS Verified 12/24/19 20:07 hydrocodone Allergy Mild RASH Verified 12/24/19 20:07 Home Medications Home Medications Medication Instructions Recorded Confirmed Type epinephrine [EpiPen] 0.3 mg IM UD PRN 06/05/18 12/24/19 History acetaminophen 650 mg PO Q4H PRN #30 tab 08/14/19 12/24/19 Rx citalopram 10 mg tablet 10 mg PO DAILY #90 tab 10/03/19 12/24/19 Rx apixaban 5 mg tablet 5 mg PO BID #180 tab 10/04/19 12/24/19 Rx bupropion HCl 100 mg tablet,12 hr 100 mg PO DAILY #90 ea 10/04/19 12/24/19 Rx sustained-release carvedilol 3.125 mg tablet 3.125 mg PO BID #180 tab 10/04/19 12/24/19 Rx donepezil 10 mg tablet 10 mg PO HS #90 tab 10/04/19 12/24/19 Rx ferrous sulfate 325 mg (65 mg 325 mg PO BIDM #180 tab 10/04/19 12/24/19 Rx iron) tablet,delayed release folic acid 1 mg tablet 1 mg PO QAM #90 tab 10/04/19 12/24/19 Rx isosorbide mononitrate 60 mg 60 mg PO QAM #90 tab 10/04/19 12/24/19 Rx tablet,extended release 24 hr levothyroxine 100 mcg tablet 100 mcg PO HS #90 tab 10/04/19 12/24/19 Rx memantine 10 mg tablet 10 mg PO BID #180 tab 10/04/19 12/24/19 Rx simvastatin 80 mg tablet 80 mg PO HS #90 tab 10/04/19 12/24/19 Rx tamsulosin 0.4 mg capsule 0.4 mg PO QPM #90 cap 10/04/19 12/24/19 Rx gabapentin 300 mg capsule 300 mg PO HS #90 cap 11/03/19 12/24/19 Rx tramadol 50 mg tablet 50 mg PO TID PRN #60 tab 11/03/19 12/24/19 Rx aspirin 81 mg PO QAM 12/24/19 12/24/19 History bethanechol chloride 50 mg PO QID 12/24/19 12/24/19 History Patient History Medical History Anxiety and depression Aortic stenosis Mild (MG 11 mmHg, UZMA 1.1 cm2) per 11/2015 ECHO Atrial fibrillation on Eliquis-F/U PCP BPH w urinary obs/LUTS CAD (coronary artery disease), [place] coronary artery S/P BMS to OM (1997). Caths also 2006, 2008 and 2013, no stents placed. Most recent cath in 2013 showed no angiographically significant stenosis other than 20-30% in-stent restenosis of OM. Cardiac pacemaker in situ Implanted 2008 (2/[address] [facility]. Last pacer check 07/2019 [facility] Chronic indwelling Myles catheter Chronic pain CKD (chronic kidney disease) stage 3, GFR 30-59 ml/min Dementia Dyslipidemia GERD (gastroesophageal reflux disease) controlled History of kidney stones History of [place] (myocardial infarction) 1997 HTN (hypertension), benign Hx of gastric ulcer Hypothyroidism Iron deficiency anemia Sleep apnea NO DEVICE Surgical History H/O total knee replacement RIGHT/LEFT History of cardiac cath MULTIPLE WITH TOTAL 4 STENTS-LAST ONE 2 YRS AGO PH [facility] History of cataract surgery B/L History of lithotripsy History of lumbar fusion History of prostate surgery PARTIAL PROSTECTOMY History of thyroidectomy S/P coronary artery stent placement (1997) Bare Metal stent x 3 to LCX S/P placement of cardiac pacemaker (~2008) 2009/REPLACEMENT GENERATOR 2016-PACER CHECK [facility] S/P TURP S/P ureteral stent placement Cysto, B/L RPG, right ureteroscopy, stent exchange: 07/06/18: LMA#5 at [facility]STO STENT EXCHANGE 11/2018 Family History Father Diabetes Mother Coronary heart disease Hypertension Brother Seizure Denies family history of Ovarian cancer Prostate cancer Myocardial infarction Breast cancer Colorectal cancer Social History Smoking Status: Former smoker Tobacco Type: Cigarettes Second Hand Exposure: No; Hx Alcohol Use: No Hx Substance Use: No Preferred Language: French Communication Ability: Effective Visual Impairment: No Limitations Material Handler Required: No Beliefs That Will Affect Care: None marital status: Current Living Situation: Spouse and Family Current Living Situation Comment: per RN report from ER, pt lives with and daughter current occupational status: retired How many Children do You have: 3 Feels Safe at Home: Yes Childhood Exposure to Second-Hand Smoke: No caffeine: Yes (Coffee 3 per day.) during the past year weight has: remained stable Dental Care, Regularly: No Physical Activity Frequency: Does not Exercise Seatbelt Use: always Sunscreen Use: No Assistive Devices: Walker Review of Systems Review of Systems: All systems reviewed & are unremarkable except as noted in HPI & below and Unobtainable due to cognitive status Physical Exam Physical Exam: NAD Patient oriented to place soft NT, ND Urine is darker yellow Ext without edema Results & Data ([facility]) Vital Signs (Past 12 Hours) Vital Signs Temp Pulse Resp BP Pulse Ox 12/25/19 07:19 36.7 C 60 16 135/83 94 PG Care Time/CCT Total # of Minutes Spent Total Time Spent with Patient: Total time spent is greater than 50% in coordination of care (as documented) at patient's floor/unit and/or counseling patient: [place] [address] Initial Inpt Care Lvl 3 Patient Type New History Expanded Problem Focused Exam Expanded Problem Focused Medical Decision Making Moderate Complexity Diagnoses Chronic indwelling Myles catheter Z97.8 Complicated UTI (urinary tract infection) N39.0 Time Spent (min) 25
[2019-12-25] MEDS: PIPERACILLIN/TAZOBACTAM 3.375 GM in DEXTROSE 5% 100 ML IV SCH ×2 (15:30→23:33)
[2019-12-25] MEDS: DOCUSATE SODIUM/SENNA 50/8.6MG TAB PO SCH (16:55)
[2019-12-25] MEDS: GABAPENTIN 300 MG CAP PO SCH (20:58)
[2019-12-25] MEDS: DONEPEZIL HCL 10 MG TAB PO SCH (20:58)
[2019-12-25] MEDS: TAMSULOSIN HCL 0.4 MG CAP PO SCH (20:59)
[2019-12-25] MEDS: SIMVASTATIN 80 MG TAB PO SCH (20:59)
[2019-12-26] MEDS: LEVOTHYROXINE SODIUM 100 MCG TABLET PO SCH (05:40)
[2019-12-26 05:58] LABS: Hematocrit (blood only) 35.7 % (42-52); Hemoglobin 11.4 g/dL (14.0-18.0); Mean Corpuscular Hemoglobin 30.3 pg (25-34); Mean Corpuscular Hgb Conc 31.9 g/dL (32-36); Mean Corpuscular Volume 94.9 fL (80-100); Mean Platelet Volume 10.2 fL (7.4-10.4); Platelet Count 182 K/uL (130-400); RDW Coefficient of Variation 14.8 % (11.5-14.5); RDW Standard Deviation 51.7 fL (36.4-46.3); Red Blood Count 3.76 M/uL (4.7-6.1); White Blood Count 12.15 K/uL (4.8-10.8)
[2019-12-26 06:21] LABS: Calcium 8.4 mg/dl (8.5-10.1); Creatinine Clr Calc Pharmacy 27.9 ml/min; Est GFR (African American) 35.7; Est GFR (Non-African American) 30.8; Magnesium 2.5 mg/dl (1.8-2.4); Phosphorus 3.5 mg/dl (2.5-4.9); Potassium 3.5 mmol/L (3.5-5.1)
[2019-12-26] MEDS: PIPERACILLIN/TAZOBACTAM 3.375 GM in DEXTROSE 5% 100 ML IV SCH ×3 (07:14→23:26)
[2019-12-26] MEDS: buPROPion SR 100 MG TABCR PO SCH (08:12)
[2019-12-26] MEDS: ASPIRIN 81 MG ECTAB PO SCH (08:12)
[2019-12-26] MEDS: MEMANTINE HCL 10 MG TAB PO SCH ×2 (08:12→20:30)
[2019-12-26] MEDS: CITALOPRAM 20 MG TAB PO SCH (08:13)
[2019-12-26] MEDS: FOLIC ACID 1 MG TAB PO SCH (08:13)
[2019-12-26] MEDS: ISOSORBIDE MONO EXTENDED REL 60 MG TABCR PO SCH (08:13)
[2019-12-26] MEDS: BETHANECHOL CHL 25 MG TAB PO SCH ×4 (08:13→20:32)
[2019-12-26] MEDS: carvediloL 3.125 MG TAB PO SCH ×2 (08:14→17:11)
[2019-12-26] MEDS: DOCUSATE SODIUM/SENNA 50/8.6MG TAB PO SCH (08:14)
[2019-12-26] MEDS: FERROUS SULFATE 325 MG TAB PO SCH ×2 (08:14→17:12)
--- NOTE | 2019-12-26 10:06 | Urology Progress Note ---
Date of Service December 26, 2019 Assessment & Plan (1) Complicated UTI (urinary tract infection): (2) Chronic indwelling Michel catheter: 79yo M with bilateral ureteral stents and chronic indwelling Michel catheter -Reviewed plan of care with Dr. Medrano -Remains afebrile -Labs reviewed, WBC is improving -No acute intervention planned today -Continue Michel catheter -Continue broad spectrum antibiotics pending urine and blood cultures -Plan to exchange b/l stents once infection has cleared, possibly later this week if still inpatient -Will continue to monitor Admission and Anticipated Discharge Date Admission Date: December 24, 2019 Subjective 79yo M with a chronic indwelling Michel catheter and b/l ureteral stents Patient examined at bedside this AM Awake, resting in bed on arrival Denies fevers or chills Denies any pain or discomfort Michel catheter intact/patent, draining cloudy, yellow urine Tolerating diet, no nausea or vomiting Chart review: Afebrile Wbc 12.15 Hgb 11.4 Cr 1.99 Urine culture- prelim gram negative bacilli Blood culture- pending Continues on IV Zosyn Renal ultrasound 12/23- IMPRESSION: 1. No hydronephrosis. 2. Left renal cyst. 3. The bladder is decompressed by Michel catheter and not visualized. 4. The right renal stent is likely seen within the right renal collecting system. The left renal stent was not clearly identified by ultrasound. No additional concerns today Review of Systems Constitutional: as per Subjective / HPI Gastrointestinal: as per Subjective / HPI Genitourinary: + as per Subjective / HPI Physical Exam Constitutional: cooperative; no acute distress Respiratory: normal respiratory effort and able to speak in complete sentences Cardiovascular: Extremities: no calf tenderness Gastrointestinal (Abdomen): Inspection/Auscultation: abdomen normal to inspection; abdomen not distended Skin: Warm and dry Neurologic: moves all extremities and awake Psychiatric: Orientation: alert and oriented to person Affect: euthymic affect Genitourinary: Michel catheter intact/patent, draining cloudy, yellow urine Results & Data ([facility]) Vital Signs (Past 12 Hours) Vital Signs Temp Pulse Resp BP Pulse Ox 12/26/19 07:28 36.5 C 62 16 155/88 H 93 12/25/19 23:05 36.6 C 57 L 18 137/77 93 PG Care Time/CCT Total # of Minutes Spent Total Time Spent with Patient: Total time spent is greater than 50% in coordination of care (as documented) at patient's floor/unit and/or counseling patient: Coding Level of Care Code 39649 Subseq Hosp Care Lvl 2 Diagnoses Complicated UTI (urinary tract infection) N39.0 Chronic indwelling Michel catheter Z97.8
[2019-12-26] MEDS: PANTOprazole 40 MG in SYRINGE 0 ML IV SCH (17:18)
--- NOTE | 2019-12-26 18:02 | Hospitalist Progress Note ---
Date of Service December 26, 2019 Assessment & Plan (1) Sepsis: 2nd to catheter-associated / complicated UTI. sepsis resolved. blood cx's neg. follow urine cx - leave on zosyn for now. (2) Complicated UTI (urinary tract infection): with possible left-sided pyelonephritis. cont zosyn. follow urine cx. seen by urology - Dr. Harper will exchange the stents once infection has cleared. myles exchanged in ER at presentation. (3) Melena: Staff report that stool today was gross melena. Heme+. Recheck h/h now and again in am. Start PPI twice daily + carafate QID. Cut back diet to clears. Patient states he takes motrin every day at home? This is in setting of aspirin and eliquis use. May need GI consultation. (4) Atrial fibrillation: rate controlled with coreg. holding eliquis for possible stent exchange this admission. (5) CKD (chronic kidney disease) stage 3, GFR 30-59 ml/min: baseline Cr 1.6 mild GIOVANY BMP in am (6) Chronic indwelling Myles catheter: exchanged in ER, per urology note (7) Hypothyroidism: 12-23 TSH 3.130 well controlled cont synthroid 100mcg (8) GERD (gastroesophageal reflux disease): holding eliquis due to need for ureteral stent exchange see above in "melena" (9) Dementia: cont aricept cont namenda (10) Hx of gastric ulcer: could easily have recurrent ulcer given his melena PPI + carafate (11) Cardiac pacemaker in situ: noted (12) CAD (coronary artery disease), [place] coronary artery: no ischemic symptoms at this time (13) DVT prophylaxis: SCDs cont PT/OT Admission and Anticipated Discharge Date Admission Date: December 24, 2019 Subjective patient states he "feels really good today." he was quite fixated on talking about his prior job at [employer] from years ago. 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 we would shift back to talking about his health, then he would want to talk about this old job again. offered no complaints. Review of Systems Constitutional: no fever, no chills, no fatigue and no anorexia Respiratory: no cough and no dyspnea Cardiovascular: no chest pain Gastrointestinal: no abdominal pain, no nausea and no vomiting Physical Exam Constitutional: + altered mental status; no acute distress ENMT: external ear and nose normal, oropharynx normal Respiratory: normal respiratory effort, lungs clear to auscultation Cardiovascular: Rate/Rhythm: regular rate and regular rhythm Heart Sounds: normal S1 and normal S2; no murmur Vessels: posterior tibial pulses present and dorsalis pedis pulses present; no JVD Extremities: no edema Gastrointestinal (Abdomen): normal bowel sounds, soft, nontender, no hepatosplenomegaly Psychiatric: Orientation: alert, oriented to person and oriented to place Results & Data Results & Data ([facility]) Vital Signs (Past 12 Hours) Vital Signs Temp Pulse Resp BP Pulse Ox 12/26/19 15:42 36.6 C 60 18 145/78 H 96 12/26/19 07:28 36.5 C 62 16 155/88 H 93 urine cx -- providencia, 2nd gram negative blue pending blood cx's pending but thus far negative PG Care Time/CCT Total # of Minutes Spent Total Time Spent with Patient: Total time spent is greater than 50% in coordination of care (as documented) at patient's floor/unit and/or counseling patient: Coding Level of Care Code 83415 Subseq Hosp Care Lvl 2 Diagnoses Sepsis A41.9 Sepsis acute organ dysfunction status: unspecified Sepsis type: sepsis due to unspecified organism Complicated UTI (urinary tract infection) N39.0 Melena K92.1 Atrial fibrillation I48.91 Atrial fibrillation type: unspecified CKD (chronic kidney disease) stage 3, GFR 30-59 ml/min N18.30 Chronic kidney disease stage 3 subtype: unspecified whether 3a or 3b Chronic indwelling Myles catheter Z97.8 Hypothyroidism E03.9 Hypothyroidism type: acquired GERD (gastroesophageal reflux disease) K21.9 Esophagitis presence: esophagitis presence not specified Dementia F03.90 Hx of gastric ulcer Z87.19 Cardiac pacemaker in situ Z95.0 CAD (coronary artery disease), elem coronary artery I25.10 [place] vs. transplanted heart: elem heart Associated angina: without angina DVT prophylaxis Z29.9 (1) CKD (chronic kidney disease) stage 3, GFR 30-59 ml/min Chronic kidney disease stage 3 subtype: unspecified whether 3a or 3b Qualified Code(s): N18.30 - Chronic kidney disease, stage 3 unspecified (2) Atrial fibrillation Atrial fibrillation type: unspecified Qualified Code(s): I48.91 - Unspecified atrial fibrillation (3) Hypothyroidism Hypothyroidism type: acquired Qualified Code(s): E03.9 - Hypothyroidism, unspecified (4) Sepsis Sepsis acute organ dysfunction status: unspecified Sepsis type: sepsis due to unspecified organism Qualified Code(s): A41.9 - Sepsis, unspecified organism (5) GERD (gastroesophageal reflux disease) Esophagitis presence: esophagitis presence not specified Qualified Code(s): K21.9 - Gastro-esophageal reflux disease without esophagitis (6) CAD (coronary artery disease), elem coronary artery [place] vs. transplanted heart: elem heart Associated angina: without angina Qualified Code(s): I25.10 - Atherosclerotic heart disease of elem coronary artery without angina pectoris
[2019-12-26 18:23] LABS: Hematocrit (blood only) 37.3 % (42-52); Hemoglobin 11.6 g/dL (14.0-18.0)
[2019-12-26 19:19] LABS: Ferritin 130.4 ng/ml (8-388)
[2019-12-26] MEDS: TAMSULOSIN HCL 0.4 MG CAP PO SCH (20:31)
[2019-12-26] MEDS: GABAPENTIN 300 MG CAP PO SCH (20:31)
[2019-12-26] MEDS: SIMVASTATIN 80 MG TAB PO SCH (20:31)
[2019-12-26] MEDS: DONEPEZIL HCL 10 MG TAB PO SCH (20:31)
[2019-12-26] MEDS: SUCRALFATE 1 GM/10 ML UDC PO SCH (20:32)
[2019-12-27] MEDS: ACETAMINOPHEN 325 MG TAB PO PRN (02:09)
[2019-12-27] MEDS: LEVOTHYROXINE SODIUM 100 MCG TABLET PO SCH (05:39)
[2019-12-27 06:35] LABS: Hematocrit (blood only) 35.1 % (42-52); Hemoglobin 11.1 g/dL (14.0-18.0); Mean Corpuscular Hemoglobin 30.4 pg (25-34); Mean Corpuscular Hgb Conc 31.6 g/dL (32-36); Mean Corpuscular Volume 96.2 fL (80-100); Mean Platelet Volume 10.3 fL (7.4-10.4); Platelet Count 214 K/uL (130-400); RDW Coefficient of Variation 14.4 % (11.5-14.5); RDW Standard Deviation 50.7 fL (36.4-46.3); Red Blood Count 3.65 M/uL (4.7-6.1); White Blood Count 8.26 K/uL (4.8-10.8)
[2019-12-27 07:03] LABS: BUN Creatinine Ratio 13.3 (10-20); Calcium 8.9 mg/dl (8.5-10.1); Creatinine Clr Calc Pharmacy 29.2 ml/min; Est GFR (African American) 37.7; Est GFR (Non-African American) 32.6; Potassium 3.5 mmol/L (3.5-5.1)
[2019-12-27] MEDS: PIPERACILLIN/TAZOBACTAM 3.375 GM in DEXTROSE 5% 100 ML IV SCH ×2 (07:53→16:11)
[2019-12-27] MEDS: SUCRALFATE 1 GM/10 ML UDC PO SCH ×4 (09:01→20:35)
[2019-12-27] MEDS: DOCUSATE SODIUM/SENNA 50/8.6MG TAB PO SCH (09:02)
[2019-12-27] MEDS: ASPIRIN 81 MG ECTAB PO SCH (09:02)
[2019-12-27] MEDS: CITALOPRAM 20 MG TAB PO SCH (09:02)
[2019-12-27] MEDS: carvediloL 3.125 MG TAB PO SCH ×2 (09:02→16:13)
[2019-12-27] MEDS: ISOSORBIDE MONO EXTENDED REL 60 MG TABCR PO SCH (09:02)
[2019-12-27] MEDS: FOLIC ACID 1 MG TAB PO SCH (09:02)
[2019-12-27] MEDS: BETHANECHOL CHL 25 MG TAB PO SCH ×4 (09:02→20:33)
[2019-12-27] MEDS: FERROUS SULFATE 325 MG TAB PO SCH ×2 (09:03→16:11)
[2019-12-27] MEDS: buPROPion SR 100 MG TABCR PO SCH (09:03)
[2019-12-27] MEDS: MEMANTINE HCL 10 MG TAB PO SCH ×2 (09:04→20:36)
[2019-12-27] MEDS: PANTOprazole 40 MG in SYRINGE 0 ML IV SCH ×2 (09:09→20:32)
--- NOTE | 2019-12-27 13:06 | Urology Progress Note ---
Date of Service December 27, 2019 Assessment & Plan (1) Complicated UTI (urinary tract infection): (2) Chronic indwelling Michel catheter: 79yo M with a chronic indwelling Michel catheter and bilateral stents admitted with complicated UTI -Remains afebrile -Labs reviewed, WBC is normal -Creatinine remains elevated but trending down -No acute intervention planned today -Continue Michel catheter - Michel exchanged in ER at presentation. -Continue broad spectrum antibiotics pending final urine and blood cultures -Plan to exchange b/l stents once infection has cleared, possibly if still inpatient -Will continue to monitor Admission and Anticipated Discharge Date Admission Date: December 24, 2019 Subjective 79yo M with a chronic indwelling Michel catheter and bilateral stents Patient examined at bedside today Awake, resting in bed on arrival Reports some lower abdominal discomfort Denies fevers or chills Denies back and flank pain Michel catheter intact/patent, draining cloudy, yellow urine Tolerating diet, no nausea or vomiting Chart review: Afebrile Wbc 8.26 Hgb 11.1 Cr 1.90 Urine culture- prelim gram negative bacilli Blood culture- pending Continues on IV Zosyn LBM 12/25 Review of Systems Constitutional: as per Subjective / HPI Gastrointestinal: as per Subjective / HPI Genitourinary: + as per Subjective / HPI Musculoskeletal: as per Subjective / HPI Physical Exam Constitutional: cooperative; no acute distress Respiratory: normal respiratory effort and able to speak in complete sentences Cardiovascular: Extremities: no calf tenderness Gastrointestinal (Abdomen): Inspection/Auscultation: abdomen normal to inspection; abdomen not distended Musculoskeletal: Head/Neck/Chest: normocephalic Skin: Warm and dry Neurologic: moves all extremities and awake Psychiatric: Orientation: alert, oriented to person and oriented to place Affect: euthymic affect Genitourinary: Michel catheter intact/patent, draining cloudy, yellow urine Results & Data ([facility]) Vital Signs (Past 12 Hours) Vital Signs Temp Pulse Resp BP Pulse Ox 12/27/19 11:01 139/88 12/27/19 07:44 36.3 C L 55 L 16 165/90 H 96 PG Care Time/CCT Total # of Minutes Spent Total Time Spent with Patient: Total time spent is greater than 50% in coordination of care (as documented) at patient's floor/unit and/or counseling patient: Coding Level of Care Code 45318 Subseq Hosp Care Lv 2 Diagnoses Complicated UTI (urinary tract infection) N39.0 Chronic indwelling Michel catheter Z97.8
--- NOTE | 2019-12-27 20:13 | Hospitalist Progress Note ---
Date of Service December 27, 2019 Assessment & Plan (1) Sepsis: 2nd to catheter-associated / complicated UTI. sepsis resolved. blood cx's neg. follow urine cx - leave on zosyn for now - still waiting on ID of gram negative blue. (2) Complicated UTI (urinary tract infection): with possible left-sided pyelonephritis. pyelonephritis clinically resolved. cont zosyn. follow urine cx - providencia along with a gram negative blue. seen by urology - Dr. Harper will exchange the stents sometime later this week. myles exchanged in ER at presentation. (3) Acute blood loss anemia: about a 3 gram drop from admission with melena stools and heme+ stool. prior h/o gastric ulcer per records. on IV PPI twice daily + carafate QID. upper abd pain improved. no further melena. H/H remaining stable now. cont current care plan. defer on GI consult unless ongoing H/H drop. (4) Melena: IV PPI twice daily + carafate QID. Since doing well and h/h stable may advance diet today. Patient states he takes motrin every day at home? This is in setting of aspirin and eliquis use. holding both meds. repeat h/h in am. (5) Atrial fibrillation: rate controlled with coreg. holding eliquis for stent exchange this admission. (6) CKD (chronic kidney disease) stage 3, GFR 30-59 ml/min: baseline Cr 1.6 mild GIOVANY present but improving BMP in am (7) Chronic indwelling Myles catheter: exchanged in ER, per urology note (8) Hypothyroidism: - TSH 3.130 well controlled cont synthroid 100mcg (9) GERD (gastroesophageal reflux disease): holding eliquis due to need for ureteral stent exchange see above in "melena" (10) Dementia: cont aricept cont namenda (11) Hx of gastric ulcer: could easily have recurrent ulcer given his melena PPI + carafate (12) Cardiac pacemaker in situ: noted (13) CAD (coronary artery disease), [place] coronary artery: no ischemic symptoms at this time holding aspirin due to heme+ stool and concern for upper GI bleeding cont coreg cont statin (14) DVT prophylaxis: SCDs cont PT/OT son updated by phone this evening Admission and Anticipated Discharge Date Admission Date: December 24, 2019 Subjective no issues overnight. pleasantly confused - similar to past visits. no complaints today. abd pain resolved. no further melena per staff. tolerating diet. Review of Systems Constitutional: no fever Respiratory: no cough and no dyspnea Cardiovascular: no chest pain Gastrointestinal: no abdominal pain, no nausea and no vomiting Physical Exam Constitutional: + altered mental status; no acute distress ENMT: external ear and nose normal, oropharynx normal Respiratory: normal respiratory effort, lungs clear to auscultation Cardiovascular: Rate/Rhythm: regular rate and regular rhythm Heart Sounds: normal S1 and normal S2; no murmur Vessels: posterior tibial pulses present and dorsalis pedis pulses present; no JVD Extremities: no edema Gastrointestinal (Abdomen): normal bowel sounds, soft, nontender, no hepatosplenomegaly Psychiatric: Orientation: alert, oriented to person and oriented to place Results & Data Results & Data ([facility]) Vital Signs (Past 12 Hours) Vital Signs Temp Pulse Resp BP Pulse Ox 12/27/19 15:34 36.6 C 60 18 132/82 97 12/27/19 11:01 139/88 Laboratory Results Laboratory Results - last 24 hr 12/27/19 12/27/19 06:10 06:10 WBC 8.26 RBC 3.65 L Hgb 11.1 L Hct 35.1 L MCV 96.2 MCH 30.4 MCHC 31.6 L RDW Std Deviation 50.7 H RDW Coeff of Curtis 14.4 Plt Count 214 MPV 10.3 Sodium 143 Potassium 3.5 Chloride 107 Carbon Dioxide 31 Anion Gap 5.0 BUN 25 H Creatinine 1.90 H Est Cr Clr Drug Dosing 29.2 Est GFR ( Amer) 37.7 Est GFR (Non-Af Amer) 32.6 BUN/Creatinine Ratio 13.3 Glucose 79 Calcium 8.9 PG Care Time/CCT Total # of Minutes Spent Total Time Spent with Patient: Total time spent is greater than 50% in coordination of care (as documented) at patient's floor/unit and/or counseling patient: Coding Level of Care Code 49822 Subseq Hosp Care Lvl 2 Diagnoses Sepsis A41.9 Sepsis acute organ dysfunction status: unspecified Sepsis type: sepsis due to unspecified organism Complicated UTI (urinary tract infection) N39.0 Acute blood loss anemia D62 Melena K92.1 Atrial fibrillation I48.91 Atrial fibrillation type: unspecified CKD (chronic kidney disease) stage 3, GFR 30-59 ml/min N18.30 Chronic kidney disease stage 3 subtype: unspecified whether 3a or 3b Chronic indwelling Myles catheter Z97.8 Hypothyroidism E03.9 Hypothyroidism type: acquired GERD (gastroesophageal reflux disease) K21.9 Esophagitis presence: esophagitis presence not specified Dementia F03.90 Hx of gastric ulcer Z87.19 Cardiac pacemaker in situ Z95.0 CAD (coronary artery disease), [place] coronary artery I25.10 Associated angina: without angina [place] vs. transplanted heart: [place] heart DVT prophylaxis Z29.9 (1) CKD (chronic kidney disease) stage 3, GFR 30-59 ml/min Chronic kidney disease stage 3 subtype: unspecified whether 3a or 3b Qualified Code(s): N18.30 - Chronic kidney disease, stage 3 unspecified (2) Atrial fibrillation Atrial fibrillation type: unspecified Qualified Code(s): I48.91 - Unspecified atrial fibrillation (3) Hypothyroidism Hypothyroidism type: acquired Qualified Code(s): E03.9 - Hypothyroidism, unspecified (4) CAD (coronary artery disease), [place] coronary artery Associated angina: without angina [place] vs. transplanted heart: [place] heart Qualified Code(s): I25.10 - Atherosclerotic heart disease of [place] coronary artery without angina pectoris (5) Sepsis Sepsis acute organ dysfunction status: unspecified Sepsis type: sepsis due to unspecified organism Qualified Code(s): A41.9 - Sepsis, unspecified organism (6) GERD (gastroesophageal reflux disease) Esophagitis presence: esophagitis presence not specified Qualified Code(s): K21.9 - Gastro-esophageal reflux disease without esophagitis
[2019-12-27] MEDS: DONEPEZIL HCL 10 MG TAB PO SCH (20:33)
[2019-12-27] MEDS: TAMSULOSIN HCL 0.4 MG CAP PO SCH (20:34)
[2019-12-27] MEDS: SIMVASTATIN 80 MG TAB PO SCH (20:34)
[2019-12-27] MEDS: GABAPENTIN 300 MG CAP PO SCH (20:35)
[2019-12-28] MEDS: PIPERACILLIN/TAZOBACTAM 3.375 GM in DEXTROSE 5% 100 ML IV SCH ×3 (00:08→15:40)
[2019-12-28] MEDS: LEVOTHYROXINE SODIUM 100 MCG TABLET PO SCH (06:19)
[2019-12-28] MEDS: ISOSORBIDE MONO EXTENDED REL 60 MG TABCR PO SCH (07:53)
[2019-12-28] MEDS: buPROPion SR 100 MG TABCR PO SCH (07:53)
[2019-12-28] MEDS: BETHANECHOL CHL 25 MG TAB PO SCH ×4 (07:53→20:57)
[2019-12-28] MEDS: FERROUS SULFATE 325 MG TAB PO SCH ×2 (07:53→16:35)
[2019-12-28] MEDS: FOLIC ACID 1 MG TAB PO SCH (07:54)
[2019-12-28] MEDS: MEMANTINE HCL 10 MG TAB PO SCH ×2 (07:54→20:58)
[2019-12-28] MEDS: carvediloL 3.125 MG TAB PO SCH ×2 (07:54→16:36)
[2019-12-28] MEDS: CITALOPRAM 20 MG TAB PO SCH (07:54)
[2019-12-28] MEDS: SUCRALFATE 1 GM/10 ML UDC PO SCH ×4 (07:54→20:57)
[2019-12-28] MEDS: DOCUSATE SODIUM/SENNA 50/8.6MG TAB PO SCH (07:55)
[2019-12-28] MEDS: ACETAMINOPHEN 325 MG TAB PO PRN ×3 (08:02→16:35)
[2019-12-28] MEDS: PANTOprazole 40 MG in SYRINGE 0 ML IV SCH ×2 (08:12→20:58)
--- NOTE | 2019-12-28 11:54 | Urology Progress Note ---
Date of Service December 28, 2019 Assessment & Plan (1) Complicated UTI (urinary tract infection): (2) Chronic indwelling Michel catheter: 79yo M with a chronic indwelling Michel catheter and bilateral stents admitted with complicated UTI -Reviewed plan of care with Dr. Medrano -Remains afebrile -Urine culture positive with E.coli and Providencia stuartii, herbert sensitive -Will plan for Cystoscopy, Bilateral Retrograde Pyelogram, and Bilateral stent exchange tomorrow -Make NPO at midnight -Continue supportive care and antibiotic therapy -Will continue to monitor Admission and Anticipated Discharge Date Admission Date: December 24, 2019 Subjective 79yo M with a chronic indwelling Michel catheter and bilateral stents admitted with complicated UTI Patient awake, sitting in chair Reports some lower abdominal discomfort Denies fevers or chills Michel catheter intact/patent, draining cloudy, yellow urine Tolerating diet, no nausea or vomiting Chart review: Afebrile Urine Culture final - Positive with E.coli and Providencia stuartii Continues on IV Zosyn Review of Systems Constitutional: as per Subjective / HPI Gastrointestinal: as per Subjective / HPI Genitourinary: + as per Subjective / HPI Physical Exam Constitutional: no acute distress Respiratory: normal respiratory effort and able to speak in complete sentences Cardiovascular: Extremities: no calf tenderness Gastrointestinal (Abdomen): Percussion/Palpation: abdomen soft; abdomen nontender and no guarding Skin: Warm and dry Neurologic: awake Psychiatric: Orientation: alert, oriented to person and cooperative Genitourinary: Michel catheter intact/patent, draining cloudy, yellow urine Results & Data ([facility]) Vital Signs (Past 12 Hours) Vital Signs Temp Pulse Resp BP Pulse Ox 12/28/19 07:25 36.5 C 57 L 18 180/89 H 96 12/28/19 00:13 36.3 C L 55 L 18 159/84 H 94 12/28/19 00:03 36.3 C L 55 L 18 146/78 H 96 PG Care Time/CCT Total # of Minutes Spent Total Time Spent with Patient: Total time spent is greater than 50% in coordination of care (as documented) at patient's floor/unit and/or counseling patient: Coding Level of Care Code 44991 Subseq Hosp Care Lvl 2 Diagnoses Complicated UTI (urinary tract infection) N39.0 Chronic indwelling Michel catheter Z97.8
[2019-12-28] MEDS: ADVANCED PROBIOTIC 1250 MG CAPSULE PO SCH (17:52)
--- NOTE | 2019-12-28 20:17 | Hospitalist Progress Note ---
Date of Service December 28, 2019 Assessment & Plan (1) S/P ureteral stent placement: b/l stents. to be exchanged tomorrow by [facility] urology. NPO after MN tonight. (2) Sepsis: 2nd to catheter-associated / complicated UTI. sepsis resolved. blood cx's neg. (3) Complicated UTI (urinary tract infection): with possible left-sided pyelonephritis. pyelonephritis clinically resolved. urine cx: providencia along with e.coli - unable to obtain sensitivities, however. will change zosyn to rocephin 2gm daily IV. will ask urology to obtain urine culture during procedure tomorrow. myles exchanged in ER at presentation. (4) Acute blood loss anemia: about a 3 gram drop from admission with melena stools and heme+ stool. prior h/o gastric ulcer per records. continues on IV PPI twice daily + carafate QID. upper abd pain resolved. no further melena. H/H remaining stable now. cont current care plan. defer on GI consult unless ongoing H/H drop. recheck cbc am. (5) Melena: IV PPI twice daily + carafate QID. Since doing well and h/h stable may advance diet today. Patient states he takes motrin every day at home? This is in setting of aspirin and eliquis use. holding both meds. repeat h/h in am. ulcer vs gastritis vs other. (6) Atrial fibrillation: rate controlled with coreg. holding eliquis for stent exchange tomorrow. (7) CKD (chronic kidney disease) stage 3, GFR 30-59 ml/min: baseline Cr 1.6 mild GIOVANY present but improving BMP in am (8) Chronic indwelling Myles catheter: exchanged in ER, per urology note (9) Hypothyroidism: 11-14 TSH 3.130 well controlled cont synthroid 100mcg (10) GERD (gastroesophageal reflux disease): holding eliquis due to need for ureteral stent exchange see above in "melena" (11) Dementia: cont aricept cont namenda (12) Hx of gastric ulcer: could easily have recurrent ulcer given his melena PPI + carafate (13) Cardiac pacemaker in situ: noted (14) CAD (coronary artery disease), [place] coronary artery: no ischemic symptoms at this time holding aspirin due to heme+ stool and concern for upper GI bleeding cont coreg cont statin (15) DVT prophylaxis: SCDs cont PT/OT son updated by phone 12/26 left additional message for son this evening informing him that stent exchange is tomorrow Admission and Anticipated Discharge Date Admission Date: December 24, 2019 Subjective no issues overnight. eating well. patient offers no complaints. he voices, like yesterday, "that everyone here is so nice." he then starts to talk about his old job on the [employer]. Review of Systems Respiratory: no cough and no dyspnea Cardiovascular: no chest pain Gastrointestinal: no abdominal pain, no nausea, no vomiting and no melena Physical Exam Constitutional: + altered mental status; no acute distress ENMT: external ear and nose normal, oropharynx normal Respiratory: normal respiratory effort, lungs clear to auscultation Cardiovascular: Rate/Rhythm: regular rate and regular rhythm Heart Sounds: normal S1 and normal S2; no murmur Vessels: posterior tibial pulses present and dorsalis pedis pulses present; no JVD Extremities: no edema Gastrointestinal (Abdomen): normal bowel sounds, soft, nontender, no hepatosplenomegaly Psychiatric: Orientation: alert, oriented to person and oriented to place; + not oriented to time (Did not know year, day, or month) Results & Data Results & Data ([facility]) Vital Signs (Past 12 Hours) Vital Signs Temp Pulse Resp BP Pulse Ox 12/28/19 15:59 36.3 C L 51 L 16 152/81 H 96 12/28/19 14:29 111/67 12/28/19 13:29 95 Laboratory Results urine cx - providencia; e coli (unable to obtain sensitivities) PG Care Time/CCT Total # of Minutes Spent Total Time Spent with Patient: Total time spent is greater than 50% in coordination of care (as documented) at patient's floor/unit and/or counseling patient: Coding Level of Care Code 14932 Subseq Hosp Care Lvl 2 Diagnoses S/P ureteral stent placement Z96.0 Sepsis A41.9 Sepsis acute organ dysfunction status: unspecified Sepsis type: sepsis due to unspecified organism Complicated UTI (urinary tract infection) N39.0 Acute blood loss anemia D62 Melena K92.1 Atrial fibrillation I48.91 Atrial fibrillation type: unspecified CKD (chronic kidney disease) stage 3, GFR 30-59 ml/min N18.30 Chronic kidney disease stage 3 subtype: unspecified whether 3a or 3b Chronic indwelling Myles catheter Z97.8 Hypothyroidism E03.9 Hypothyroidism type: acquired GERD (gastroesophageal reflux disease) K21.9 Esophagitis presence: esophagitis presence not specified Dementia F03.90 Hx of gastric ulcer Z87.19 Cardiac pacemaker in situ Z95.0 CAD (coronary artery disease), [place] coronary artery I25.10 Associated angina: without angina [place] vs. transplanted heart: [place] heart DVT prophylaxis Z29.9 (1) CKD (chronic kidney disease) stage 3, GFR 30-59 ml/min Chronic kidney disease stage 3 subtype: unspecified whether 3a or 3b Qualified Code(s): N18.30 - Chronic kidney disease, stage 3 unspecified (2) Atrial fibrillation Atrial fibrillation type: unspecified Qualified Code(s): I48.91 - Unspecified atrial fibrillation (3) Hypothyroidism Hypothyroidism type: acquired Qualified Code(s): E03.9 - Hypothyroidism, unspecified (4) CAD (coronary artery disease), [place] coronary artery Associated angina: without angina [place] vs. transplanted heart: [place] heart Qualified Code(s): I25.10 - Atherosclerotic heart disease of [place] coronary artery without angina pectoris (5) Sepsis Sepsis acute organ dysfunction status: unspecified Sepsis type: sepsis due to unspecified organism Qualified Code(s): A41.9 - Sepsis, unspecified organism (6) GERD (gastroesophageal reflux disease) Esophagitis presence: esophagitis presence not specified Qualified Code(s): K21.9 - Gastro-esophageal reflux disease without esophagitis
[2019-12-28] MEDS: TAMSULOSIN HCL 0.4 MG CAP PO SCH (20:57)
[2019-12-28] MEDS: SIMVASTATIN 80 MG TAB PO SCH (20:57)
[2019-12-28] MEDS: DONEPEZIL HCL 10 MG TAB PO SCH (20:58)
[2019-12-28] MEDS: GABAPENTIN 300 MG CAP PO SCH (20:58)
[2019-12-28] MEDS: cefTRIAXone SODIUM 2,000 MG in DEXTROSE 5% 50 ML IV SCH (22:56)
[2019-12-29 05:55] LABS: Hematocrit (blood only) 36.3 % (42-52); Hemoglobin 11.8 g/dL (14.0-18.0); Mean Corpuscular Hemoglobin 30.9 pg (25-34); Mean Corpuscular Hgb Conc 32.5 g/dL (32-36); Mean Platelet Volume 10.5 fL (7.4-10.4); Platelet Count 254 K/uL (130-400); RDW Coefficient of Variation 13.9 % (11.5-14.5); RDW Standard Deviation 48.2 fL (36.4-46.3); Red Blood Count 3.82 M/uL (4.7-6.1); White Blood Count 9.15 K/uL (4.8-10.8)
[2019-12-29] MEDS: LEVOTHYROXINE SODIUM 100 MCG TABLET PO SCH (06:22)
[2019-12-29 06:26] LABS: BUN Creatinine Ratio 10.4 (10-20); Calcium 8.7 mg/dl (8.5-10.1); Creatinine Clr Calc Pharmacy 31.2 ml/min; Est GFR (African American) 40.8; Est GFR (Non-African American) 35.2; Potassium 3.7 mmol/L (3.5-5.1)
[2019-12-29] MEDS: SUCRALFATE 1 GM/10 ML UDC PO SCH ×4 (08:38→20:26)
[2019-12-29] MEDS: DOCUSATE SODIUM/SENNA 50/8.6MG TAB PO SCH (08:41)
[2019-12-29] MEDS: ISOSORBIDE MONO EXTENDED REL 60 MG TABCR PO SCH (08:41)
[2019-12-29] MEDS: BETHANECHOL CHL 25 MG TAB PO SCH ×4 (08:41→20:27)
[2019-12-29] MEDS: MEMANTINE HCL 10 MG TAB PO SCH ×2 (08:42→20:27)
[2019-12-29] MEDS: carvediloL 3.125 MG TAB PO SCH ×2 (08:42→18:00)
[2019-12-29] MEDS: PANTOprazole 40 MG in SYRINGE 0 ML IV SCH ×2 (08:42→20:27)
[2019-12-29] MEDS: CITALOPRAM 20 MG TAB PO SCH (08:43)
[2019-12-29] MEDS: buPROPion SR 100 MG TABCR PO SCH (08:43)
[2019-12-29] MEDS: ADVANCED PROBIOTIC 1250 MG CAPSULE PO SCH (08:44)
[2019-12-29] MEDS: FERROUS SULFATE 325 MG TAB PO SCH ×2 (08:44→18:00)
[2019-12-29] MEDS: FOLIC ACID 1 MG TAB PO SCH (08:44)
--- NOTE | 2019-12-29 13:39 | History & Physical Bridge Note ---
Date of Service December 29, 2019 History & Physical Bridge Note I have examined the patient, reviewed the History & Physical and in the interval since the performance of the History & Physical I have noted the following changes of clinical significance: Cystoscopy with bilateral stent exchange.
[2019-12-29] MEDS ORDERED: fentaNYL citrate 100 MCG/2 ML VIAL ONE (13:52)
--- NOTE | 2019-12-29 14:03 | Anesthesiology Consultation ---
Date of Service December 29, 2019 Assessment & Plan Chart Review Chart Review: Acceptable Risk for Surgery Consults Requested none History Surgery Operation Date: 12/29/19 13:45 Proposed Procedures p Cystoscopy, Bilateral Retrograde Pyelogram, Bilateral Stent Exchange - William Medrano DO Height/Weight Height: 5 ft 3 in Weight: 81 kg Allergies Allergy/AdvReac Type Severity Reaction Status Date / Time captopril Allergy Severe ANAPHYLAXIS Verified 12/24/19 20:07 Iodinated Contrast Media Allergy Severe ANAPHYLAXIS Verified 12/24/19 20:07 levofloxacin Allergy Severe ANAPHYLAXIS Verified 12/24/19 20:07 morphine Allergy Severe Anaphylaxis Verified 12/24/19 20:07 oxaprozin Allergy Severe ANAPHYLAXIS Verified 12/24/19 20:07 Sulfa (Sulfonamide Allergy Severe Anaphylaxis Verified 12/24/19 20:07 Antibiotics) torsemide Allergy Severe ANAPHYLAXIS Verified 12/24/19 20:07 hydrocodone Allergy Mild RASH Verified 12/24/19 20:07 Medications Home Medications Medication Instructions Recorded Confirmed Last Taken epinephrine [EpiPen] 0.3 mg IM UD PRN 06/05/18 12/24/19 Unknown acetaminophen 650 mg PO Q4H PRN #30 tab 08/14/19 12/24/19 Unknown citalopram 10 mg tablet 10 mg PO DAILY #90 tab 10/03/19 12/24/19 Unknown apixaban 5 mg tablet 5 mg PO BID #180 tab 10/04/19 12/24/19 Unknown bupropion HCl 100 mg tablet,12 hr 100 mg PO DAILY #90 ea 10/04/19 12/24/19 Unknown sustained-release carvedilol 3.125 mg tablet 3.125 mg PO BID #180 tab 10/04/19 12/24/19 Unknown donepezil 10 mg tablet 10 mg PO HS #90 tab 10/04/19 12/24/19 Unknown ferrous sulfate 325 mg (65 mg 325 mg PO BIDM #180 tab 10/04/19 12/24/19 Unknown iron) tablet,delayed release folic acid 1 mg tablet 1 mg PO QAM #90 tab 10/04/19 12/24/19 Unknown isosorbide mononitrate 60 mg 60 mg PO QAM #90 tab 10/04/19 12/24/19 Unknown tablet,extended release 24 hr levothyroxine 100 mcg tablet 100 mcg PO HS #90 tab 10/04/19 12/24/19 Unknown memantine 10 mg tablet 10 mg PO BID #180 tab 10/04/19 12/24/19 Unknown simvastatin 80 mg tablet 80 mg PO HS #90 tab 10/04/19 12/24/19 Unknown tamsulosin 0.4 mg capsule 0.4 mg PO QPM #90 cap 10/04/19 12/24/19 Unknown gabapentin 300 mg capsule 300 mg PO HS #90 cap 11/03/19 12/24/19 Unknown tramadol 50 mg tablet 50 mg PO TID PRN #60 tab 11/03/19 12/24/19 Unknown aspirin 81 mg PO QAM 12/24/19 12/24/19 Unknown bethanechol chloride 50 mg PO QID 12/24/19 12/24/19 Unknown Active Medications Generic Name Dose Route Start Last Admin Trade Name Freq PRN Reason Stop Dose Admin Acetaminophen 650 mg 12/24/19 21:33 12/28/19 16:35 Acetaminophen 325 Mg Tab PO 01/23/20 21:32 650 mg Q4H PRN Administration pain/fever Aspirin 81 mg 12/25/19 09:00 12/27/19 09:02 Aspirin 81 Mg Ectab PO 01/24/20 08:59 81 mg QAM FLEX Administration Bethanechol Chloride 50 mg 12/25/19 09:00 12/29/19 12:58 Bethanechol Chl 25 Mg Tab PO 01/24/20 08:59 50 mg QID FLEX Administration Bupropion HCl 100 mg 12/25/19 09:00 12/29/19 08:43 Bupropion Sr 100 Mg Tabcr PO 01/24/20 08:59 100 mg DAILY FLEX Administration Carvedilol 3.125 mg 12/24/19 23:00 12/29/19 08:42 Carvedilol 3.125 Mg Tab PO 01/23/20 22:59 3.125 mg BIDM FLEX Administration Citalopram Hydrobromide 10 mg 12/25/19 09:00 12/29/19 08:43 Citalopram 20 Mg Tab PO 01/24/20 08:59 10 mg DAILY FLEX Administration Donepezil HCl 10 mg 12/24/19 23:00 12/28/19 20:58 Donepezil Hcl 10 Mg Tab PO 01/23/20 22:59 10 mg HS FLEX Administration Ferrous Sulfate 325 mg 12/25/19 08:00 12/29/19 08:44 Ferrous Sulfate 325 Mg Tab PO 01/24/20 07:59 325 mg BIDM FLEX Administration Folic Acid 1 mg 12/25/19 09:00 12/29/19 08:44 Folic Acid 1 Mg Tab PO 01/24/20 08:59 1 mg QAM FLEX Administration Gabapentin 300 mg 12/25/19 21:00 12/28/19 20:58 Gabapentin 300 Mg Cap PO 01/24/20 20:59 300 mg HS FLEX Administration Pantoprazole Sodium 40 mg/ 10 mls @ 5 mls/min 12/26/19 17:05 12/29/19 08:42 Syringe IV 01/25/20 17:04 5 mls/min BID FLEX Administration Ceftriaxone Sodium 2,000 mg/ 70 mls @ 100 mls/hr 12/28/19 22:00 12/28/19 23:45 Dextrose IV 01/07/20 21:59 Infused DAILY@22 FLEX Infusion Protocol Isosorbide Mononitrate 60 mg 12/25/19 09:00 12/29/19 08:41 Isosorbide [place] Extended Rel 60 Mg Tabcr PO 01/24/20 08:59 60 mg QAM FLEX Administration Lactobacillus Acidoph/Casei/Rhamnos 2 cap 12/28/19 16:45 12/29/19 08:44 Advanced Probiotic 1250 Mg Capsule PO 01/27/20 16:44 2 cap DAILY FLEX Administration Levothyroxine Sodium 100 mcg 12/25/19 06:30 12/29/19 06:22 Levothyroxine Sodium 100 Mcg Tablet PO 01/24/20 06:29 100 mcg DAILYBB FLEX Administration Memantine 10 mg 12/24/19 23:00 12/29/19 08:42 Memantine Hcl 10 Mg Tab PO 01/23/20 22:59 10 mg BID FLEX Administration Senna/Docusate Sodium 1 tab 12/25/19 16:45 12/29/19 08:41 Docusate Sodium/Senna 50/8.6mg Tab PO 01/24/20 16:44 1 tab QAM FLEX Administration Simvastatin 80 mg 12/25/19 21:00 12/28/19 20:57 Simvastatin 80 Mg Tab PO 01/24/20 20:59 80 mg HS FLEX Administration Sucralfate 1 gm 12/26/19 21:00 12/29/19 12:30 Sucralfate 1 Gm/10 Ml Udc PO 01/25/20 20:59 1 gm ACHS FLEX Administration Tamsulosin HCl 0.4 mg 12/24/19 23:00 12/28/19 20:57 Tamsulosin Hcl 0.4 Mg Cap PO 01/23/20 22:59 0.4 mg QPM FLEX Administration NPO Date Last Intake of Fluids: 12/28/19 Time Last Intake of Fluids: 23:55 Last Intake of Fluids Comment: took pill with a sip of water Date Last Intake of Solids: 12/28/19 Time Last Intake of Solids: 23:55 Past Medical History Medical History Anxiety and depression Aortic stenosis Mild (MG 11 mmHg, UZMA 1.1 cm2) per 11/2015 ECHO Atrial fibrillation on Eliquis-F/U PCP BPH w urinary obs/LUTS CAD (coronary artery disease), [place] coronary artery S/P BMS to OM (1997). Caths also 2006, 2008 and 2013, no stents placed. Most recent cath in 2013 showed no angiographically significant stenosis other than 20-30% in-stent restenosis of OM. Cardiac pacemaker in situ Implanted 2008 (/ [facility]. Last pacer check 07/2019 [facility] Chronic indwelling Michel catheter Chronic pain CKD (chronic kidney disease) stage 3, GFR 30-59 ml/min Dementia Dyslipidemia GERD (gastroesophageal reflux disease) controlled History of kidney stones History of CA (myocardial infarction) 1997 HTN (hypertension), benign Hx of gastric ulcer Hypothyroidism Iron deficiency anemia Sleep apnea NO DEVICE Past Family History Family History Father Diabetes Mother Coronary heart disease Hypertension Brother Seizure Denies family history of Ovarian cancer Prostate cancer Myocardial infarction Breast cancer Colorectal cancer Past Surgical History Surgical History H/O total knee replacement RIGHT/LEFT History of cardiac cath MULTIPLE WITH TOTAL 4 STENTS-LAST ONE 2 YRS AGO DEBBIE History of cataract surgery B/L History of lithotripsy History of lumbar fusion History of prostate surgery PARTIAL PROSTECTOMY History of thyroidectomy S/P coronary artery stent placement (1997) Bare Metal stent x 3 to LCX S/P placement of cardiac pacemaker (~2008) 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 2017-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 [facility] S/P TURP S/P ureteral stent placement Cysto, B/L RPG, right ureteroscopy, stent exchange: 07/06/18: LMA#5 at [facility] CYSTO STENT EXCHANGE 11/2018 Social History Smoking Status: Former smoker tobacco type: cigarettes, cigars and smokeless tobacco Hx Alcohol Use: No Hx Substance Use: No substance use type: unknown Physical Exam Vital Signs Last Vital Signs Temp 36.4 C L 12/29/19 13:58 Pulse 55 L 12/29/19 13:58 Resp 18 12/29/19 13:58 BP 180/97 H 12/29/19 13:58 Pulse Ox 97 12/29/19 13:58 Testing Laboratory Results 12/29/19 05:38 12/29/19 05:38 PT 12.4 Seconds (9.0-12.0) H 12/24/19 17:34 INR 1.2 (0.9-1.1) H 12/24/19 17:34 APTT 34.6 Seconds (21.0-31.0) H 12/24/19 17:34 Urine Color Kika 12/24/19 16:56 Urine Appearance Turbid (Clear) A 12/24/19 16:56 Urine pH 7.0 (4.5-7.5) 12/24/19 16:56 Ur Specific [place] 1.016 (1.000-1.030) 12/24/19 16:56 Urine Protein 2+ (Negative) H 12/24/19 16:56 Urine Glucose (UA) Negative (Negative) 12/24/19 16:56 Urine Ketones Negative (Negative) 12/24/19 16:56 Urine Nitrite Positive (Negative) A 12/24/19 16:56 Ur Leukocyte Esterase 3+ (Negative) H 12/24/19 16:56 Urine WBC (Auto) >30 /hpf (0-5) H 12/24/19 16:56 Urine RBC (Auto) >30 /hpf (0-4) H 12/24/19 16:56 U Hyaline Cast (Auto) 1-5 /lpf (0-5) 12/24/19 16:56 U Epithel Cells (Auto) >30 /lpf (0-5) H 12/24/19 16:56 Urine Bacteria (Auto) 2+ (Negative) H 12/24/19 16:56 12/24/19 16:56 Urine Culture - Final Urine,Straight Cath Providencia stuartii Providencia stuartii#2 Escherichia coli 12/24/19 17:34 Aerobic Blood Culture - Preliminary Blood No growth in Aerobic bottle after 48 hours. Anaerobic Blood Culture - Preliminary No growth in Anaerobic bottle after 48 hours. 12/24/19 17:34 Aerobic Blood Culture - Preliminary Blood No growth in Aerobic bottle after 48 hours. Anaerobic Blood Culture - Preliminary No growth in Anaerobic bottle after 48 hours.
[2019-12-29] MEDS ORDERED: PROPOFOL IV EMULSION 10 MG/ML 20 ML VIAL IV ONE (14:33)
[2019-12-29] MEDS ORDERED: ePHEDrine sulfate 50 MG/ML SYR ONE (14:33)
--- NOTE | 2019-12-29 14:37 | Operative Report ---
PG Post Operative Report Pre & Post Diagnosis Operation Date: 12/29/19 13:45 Pre-Op Diagnosis: Bilateral Obstructive uropathy Post-Op Diagnosis: Bilateral Obstructive uropathy I identified the patient and participated in the time-out.: Yes Procedure Operation Date: 12/29/19 13:45 Actual Procedures p Cystoscopy, Bilateral Retrograde Pyelogram, Bilateral Ureteral Stent Exchange, left aspiration and culture. (Not Applicable) - William Medrano, Surgeon William Medrano, II, DO Geriatric Nursing Assistant None Estimated Blood Loss 1 Findings Consistent with Post-Op Diagnosis Stent exchanged bilaterally and placed in good position. Severe debris within left renal pelvis. Specimens Urine left renal pelvis Drains 7 Fr x 24 Double J Stent Bilateral Anesthesia Type MAC Complications none Disposition Disposition: Recovery Room Indications Patient with obstruction with chronic stent changes. Risks and benefits discussed at length. Description of Procedure Patient was consented and brought back to the operating room. Patient was placed under anesthesia in the supine position and moved to the dorsal lithotomy position. Patient was prepped and draped in the regular sterile fashion. A time out was completed. A 30degree Cystoscope was placed into the bladder and the entire bladder was examined. The UO's were identified. The stent was grasped and partially removed. A wire was then placed and the stent fully removed. This was completed for the left and the right. The UO was cannulized over the wire with a dual lumen catheter and on the left significant debris was noted. Urine from the left renal pelvis was aspirated and sent for culture. On bother sides contrast was injected and a retrograde p yelogram was completed. The wire was maintained and the catheter removed. With the wire in place, a 7 Fr Double J stent was placed first on the right and then on the left. They were confirmed with fluoroscopy. With the stent in place, the bladder was emptied. The scope was removed. A 16 Fr Coude catheter was placed. The patient was cleaned, aroused from anesthesia, and transferred to the pacu in stable condition having tolerated the procedure well with no complications. I was present and participated in all aspects of the procedure. The patient will be monitored in the PACU until transferred. I attest to the content of the Intraoperative Record and any orders documented therein. Any exceptions are noted below.
[2019-12-29] MEDS ORDERED: DIATRIZOATE MEGLUMINE 30% 100ML VIAL INSTIL ONE (14:43)
--- NOTE | 2019-12-29 14:52 | Fluoroscopy Report ---
FL retrograde includes kub HISTORY: 79 years-old Male B/L RETROGRADE/STENT EXCHANGE bilateral retrograde cystourethrogram with stent exchange COMPARISON: CT abdomen and pelvis 11/25/2019 TECHNIQUE: 12 spot fluoroscopic images of the abdomen and pelvis were obtained utilizing 164.6 second s fluoroscopy time. FINDINGS: A left-sided ureteroscope is noted with retrograde injection of contrast. Marked dilation of the supe rior pole collecting system with calyceal blunting is redemonstrated. No definite collecting system o r ureteral filling defects. Satisfactory positioning of the left ureteral stent. A right-sided ureteroscope with retrograde injection of contrast is also present. Mild collecting sys tem dilation with calyceal blunting on the right. Filling defects in the right ureter collecting syst em. Subsequent images demonstrate deployment of a right ureteral stent which appears in satisfactory positioning. Cholecystectomy. IMPRESSION: Satisfactory positioning of the bilateral ureteral stents. ACT 112: Negative or not required by law. The above report was generated using voice recognition software. It may contain grammatical, syntax o r spelling errors. Electronically signed by: Renny Joshi M.D. 12/29/2019 2:51 PM
--- NOTE | 2019-12-29 16:22 | Anesthesiology Progress Note ---
Date of Service December 29, 2019 Anesthesia Post Procedure Vital Signs Vital Signs: Temp Pulse Pulse Pulse Resp BP Pulse Ox 12/29/19 16:00 36.4 C L 65 16 165/98 H 96 12/29/19 15:45 63 15 159/91 H 97 12/29/19 15:30 62 16 157/94 H 96 12/29/19 15:20 66 18 158/94 H 96 12/29/19 15:10 36.4 C L 62 17 160/96 H 95 12/29/19 15:00 67 17 160/92 H 95 12/29/19 14:50 65 16 151/96 H 95 12/29/19 14:44 36.1 C L 70 18 159/92 H 100 12/29/19 13:58 36.4 C L 55 L 18 180/97 H 97 12/29/19 08:35 61 165/92 H 12/29/19 08:00 36.4 C L 65 18 170/84 H 95 12/29/19 04:24 64 148/93 H 12/28/19 23:15 36.5 C 57 L 14 175/91 H 95 Pain Intensity Abdomen: Pain Intensity: 2 Transfer of Care Handoff Completed per policy Notes Mental Status: alert / awake / arousable and participated in evaluation Patient Amnestic to Procedure: Yes Nausea / Vomiting: adequately controlled Pain: adequately controlled Airway Patency, RR, SpO2: stable & adequate BP & HR: stable & adequate Hydration State: stable & adequate Anesthetic Complications: no major complications apparent
[2019-12-29] MEDS: traMADol HCL 50 MG TABLET PO PRN (20:22)
[2019-12-29] MEDS: DONEPEZIL HCL 10 MG TAB PO SCH (20:26)
[2019-12-29] MEDS: GABAPENTIN 300 MG CAP PO SCH (20:26)
[2019-12-29] MEDS: TAMSULOSIN HCL 0.4 MG CAP PO SCH (20:27)
[2019-12-29] MEDS: SIMVASTATIN 80 MG TAB PO SCH (20:27)
--- NOTE | 2019-12-29 20:55 | Hospitalist Progress Note ---
Date of Service December 29, 2019 Assessment & Plan (1) S/P ureteral stent placement: s/p cystoscopy with b/l stent exchange today. significant debris from left kidney - urine culture sent. continue myles. (2) Sepsis: 2nd to catheter-associated / complicated UTI. sepsis resolved. blood cx's neg. (3) Complicated UTI (urinary tract infection): with possible left-sided pyelonephritis. pyelonephritis clinically resolved, but cysto today with considerable debris seen from left kidney. repeat urine cx sent. admission urine cx: providencia along with e.coli - unable to obtain sensitivities on latter, however. cont rocephin 2gm daily IV. myles exchanged today during cysto as well. (4) Acute blood loss anemia: about a 3 gram drop from admission with melena stools and heme+ stool. prior h/o gastric ulcer per records. continues on IV PPI twice daily + carafate QID. change to PO PPI tomorrow. upper abd pain resolved. no further melena. H/H remaining stable. cont current care plan. defer on GI consult unless ongoing H/H drop. recheck cbc am. (5) Melena: IV PPI twice daily + carafate QID. Since doing well and h/h stable may advance diet today. Patient states he takes motrin every day at home? This is in setting of aspirin and eliquis use. holding both meds. repeat h/h in am. ulcer vs gastritis vs other. (6) Atrial fibrillation: rate controlled with coreg. holding eliquis for stent exchange. (7) CKD (chronic kidney disease) stage 3, GFR 30-59 ml/min: baseline Cr 1.6 mild GIOVANY present but improving - Cr now 1.7 BMP in am (8) Chronic indwelling Myles catheter: exchanged in ER, and then again today (9) Hypothyroidism: 11-14 TSH 3.130 well controlled cont synthroid 100mcg (10) GERD (gastroesophageal reflux disease): holding eliquis due to need for ureteral stent exchange see above in "melena" (11) Dementia: cont aricept cont namenda (12) Hx of gastric ulcer: could easily have recurrent ulcer given his melena PPI + carafate (13) Cardiac pacemaker in situ: noted (14) CAD (coronary artery disease), [place] coronary artery: no ischemic symptoms at this time holding aspirin due to heme+ stool and concern for upper GI bleeding cont coreg cont statin (15) DVT prophylaxis: SCDs cont PT/OT son updated by phone 12/26 left additional message for son on 12/27 Admission and Anticipated Discharge Date Admission Date: December 24, 2019 Subjective saw patient post-op from cysto today. eating dinner. comfortable appearing. myles with mild hematuria. 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 c/o suprapubic pain. Review of Systems Constitutional: no fever and no chills Respiratory: no cough and no dyspnea Cardiovascular: no chest pain Gastrointestinal: + abdominal pain; no nausea and no vomiting Physical Exam Constitutional: + altered mental status; no acute distress ENMT: external ear and nose normal, oropharynx normal Respiratory: normal respiratory effort, lungs clear to auscultation Cardiovascular: Rate/Rhythm: regular rate and regular rhythm Heart Sounds: normal S1 and normal S2; no murmur Vessels: posterior tibial pulses present and dorsalis pedis pulses present; no JVD Extremities: no edema Gastrointestinal (Abdomen): normal bowel sounds, soft, nontender, no hepatosplenomegaly Psychiatric: Orientation: alert, oriented to person and oriented to place; + not oriented to time Results & Data Results & Data ([facility]) Vital Signs (Past 12 Hours) Vital Signs Temp Pulse Pulse Resp BP BP Pulse Ox 12/29/19 19:58 36.3 C L 61 16 184/102 H 98 12/29/19 19:01 36.3 C L 61 16 190/100 H 186/94 H 99 12/29/19 18:07 63 16 166/93 H 96 12/29/19 17:59 36.3 C L 67 16 189/89 H 97 12/29/19 16:59 36.2 C L 61 16 163/94 H 99 12/29/19 16:30 36.3 C L 60 16 149/88 H 93 12/29/19 16:00 36.4 C L 65 16 165/98 H 96 12/29/19 15:45 63 15 159/91 H 97 12/29/19 15:30 62 16 157/94 H 96 12/29/19 15:20 66 18 158/94 H 96 12/29/19 15:10 36.4 C L 62 17 160/96 H 95 12/29/19 15:00 67 17 160/92 H 95 12/29/19 14:50 65 16 151/96 H 95 12/29/19 14:44 36.1 C L 70 18 159/92 H 100 12/29/19 13:58 36.4 C L 55 L 18 180/97 H 97 Laboratory Results Laboratory Results - last 24 hr 12/29/19 12/29/19 05:38 05:38 WBC 9.15 RBC 3.82 L Hgb 11.8 L Hct 36.3 L MCV 95.0 MCH 30.9 MCHC 32.5 RDW Std Deviation 48.2 H RDW Coeff of Curtis 13.9 Plt Count 254 MPV 10.5 H Sodium 143 Potassium 3.7 Chloride 107 Carbon Dioxide 33 H Anion Gap 3.0 BUN 18 Creatinine 1.78 H Est Cr Clr Drug Dosing 31.2 Est GFR ( Amer) 40.8 Est GFR (Non-Af Amer) 35.2 BUN/Creatinine Ratio 10.4 Glucose 82 Calcium 8.7 PG Care Time/CCT Total # of Minutes Spent Total Time Spent with Patient: Total time spent is greater than 50% in coordination of care (as documented) at patient's floor/unit and/or counseling patient: Coding Level of Care Code 31743 Subseq Hosp Care Lvl 2 Diagnoses S/P ureteral stent placement Z96.0 Sepsis A41.9 Sepsis acute organ dysfunction status: unspecified Sepsis type: sepsis due to unspecified organism Complicated UTI (urinary tract infection) N39.0 Acute blood loss anemia D62 Melena K92.1 Atrial fibrillation I48.91 Atrial fibrillation type: unspecified CKD (chronic kidney disease) stage 3, GFR 30-59 ml/min N18.30 Chronic kidney disease stage 3 subtype: unspecified whether 3a or 3b Chronic indwelling Myles catheter Z97.8 Hypothyroidism E03.9 Hypothyroidism type: acquired GERD (gastroesophageal reflux disease) K21.9 Esophagitis presence: esophagitis presence not specified Dementia F03.90 Hx of gastric ulcer Z87.19 Cardiac pacemaker in situ Z95.0 CAD (coronary artery disease), [place] coronary artery I25.10 Associated angina: without angina [place] vs. transplanted heart: [place] heart DVT prophylaxis Z29.9 (1) CKD (chronic kidney disease) stage 3, GFR 30-59 ml/min Chronic kidney disease stage 3 subtype: unspecified whether 3a or 3b Qualified Code(s): N18.30 - Chronic kidney disease, stage 3 unspecified (2) Atrial fibrillation Atrial fibrillation type: unspecified Qualified Code(s): I48.91 - Unspecified atrial fibrillation (3) Hypothyroidism Hypothyroidism type: acquired Qualified Code(s): E03.9 - Hypothyroidism, unspecified (4) CAD (coronary artery disease), [place] coronary artery Associated angina: without angina [place] vs. transplanted heart: [place] heart Qualified Code(s): I25.10 - Atherosclerotic heart disease of [place] coronary artery without angina pectoris (5) Sepsis Sepsis acute organ dysfunction status: unspecified Sepsis type: sepsis due to unspecified organism Qualified Code(s): A41.9 - Sepsis, unspecified organism (6) GERD (gastroesophageal reflux disease) Esophagitis presence: esophagitis presence not specified Qualified Code(s): K21.9 - Gastro-esophageal reflux disease without esophagitis
[2019-12-29] MEDS: cefTRIAXone SODIUM 2,000 MG in DEXTROSE 5% 50 ML IV SCH (22:47)
[2019-12-30] MEDS ORDERED: hydrALAZINE HCL 20 MG/ML VIAL IV PRN (00:38)
[2019-12-30] MEDS: LEVOTHYROXINE SODIUM 100 MCG TABLET PO SCH (05:58)
[2019-12-30] MEDS: SUCRALFATE 1 GM/10 ML UDC PO SCH ×4 (08:51→21:34)
[2019-12-30] MEDS: carvediloL 3.125 MG TAB PO SCH ×2 (08:52→17:39)
[2019-12-30] MEDS: buPROPion SR 100 MG TABCR PO SCH (08:53)
[2019-12-30] MEDS: MEMANTINE HCL 10 MG TAB PO SCH ×2 (08:53→21:34)
[2019-12-30] MEDS: BETHANECHOL CHL 25 MG TAB PO SCH ×4 (08:53→21:34)
[2019-12-30] MEDS: DOCUSATE SODIUM/SENNA 50/8.6MG TAB PO SCH (08:53)
[2019-12-30] MEDS: FOLIC ACID 1 MG TAB PO SCH (08:53)
[2019-12-30] MEDS: FERROUS SULFATE 325 MG TAB PO SCH ×2 (08:54→17:39)
[2019-12-30] MEDS: CITALOPRAM 20 MG TAB PO SCH (08:54)
[2019-12-30] MEDS: ADVANCED PROBIOTIC 1250 MG CAPSULE PO SCH (08:54)
[2019-12-30] MEDS: ISOSORBIDE MONO EXTENDED REL 60 MG TABCR PO SCH (08:54)
[2019-12-30] MEDS: PANTOprazole 40 MG in SYRINGE 0 ML IV SCH (08:55)
--- NOTE | 2019-12-30 09:52 | Urology Progress Note ---
Date of Service December 30, 2019 Assessment & Plan (1) Complicated UTI (urinary tract infection): (2) S/P ureteral stent placement: (3) Chronic indwelling Myles catheter: 79yo M with chronic bilateral stents and chronic myles catheter -POD #1 s/p Cystoscopy, Bilateral Retrograde Pyelogram, Bilateral Ureteral Stent Exchange, left aspiration and culture with Dr. Medrano -Doing well post procedure -Remains afebrile -Labs reviewed, Wbc is stable, creatinine trending down, Hgb 11.5 -Will continue to trend -UC&S pending, continue antibiotics and follow culture -Continue Myles catheter -Continue supportive care -Will arrange outpatient follow-up with urology service Admission and Anticipated Discharge Date Admission Date: December 24, 2019 Subjective 79yo M with chronic bilateral stents and chronic myles catheter POD #1 s/p Cystoscopy, Bilateral Retrograde Pyelogram, Bilateral Ureteral Stent Exchange, left aspiration and culture with Dr. Medrano Pt examined at bedside this AM Awake, resting in bed on arrival, appears comfortable Denies fevers or chills Tolerating diet, no nausea or vomiting Reports some lower abdominal discomfort Myles catheter intact, draining with hematuria Offers no additional complaints today Chart review: Afebrile Urine culture-pending On IV Ceftriaxone LBM 12/28 Review of Systems Constitutional: as per Subjective / HPI Gastrointestinal: as per Subjective / HPI Genitourinary: + as per Subjective / HPI Physical Exam Constitutional: cooperative; no acute distress Respiratory: normal respiratory effort and able to speak in complete sentences Cardiovascular: Extremities: no calf tenderness Gastrointestinal (Abdomen): Percussion/Palpation: abdomen soft; abdomen nontender and no guarding Skin: Warm and dry Neurologic: awake Confused at times Psychiatric: Orientation: alert and oriented to person Genitourinary: Myles catheter intact, draining with hematuria Results & Data ([facility]) Vital Signs (Past 12 Hours) Vital Signs Temp Pulse Pulse Pulse Resp BP BP 12/30/19 09:00 66 12/30/19 07:30 36.4 C L 58 L 16 126/71 12/30/19 03:08 36.3 C L 58 L 16 157/87 H 12/30/19 01:30 60 179/97 H 12/30/19 00:19 57 L 184/97 H 12/29/19 23:09 36.4 C L 55 L 16 171/92 H 12/29/19 22:46 36.3 C L 57 L 20 183/92 H 12/29/19 22:19 56 L 55 L 202/101 H 189/106 H Pulse Ox 12/30/19 09:00 12/30/19 07:30 94 12/30/19 03:08 93 12/30/19 01:30 12/30/19 00:19 12/29/19 23:09 96 12/29/19 22:46 96 12/29/19 22:19 PG Care Time/CCT Total # of Minutes Spent Total Time Spent with Patient: Total time spent is greater than 50% in coordination of care (as documented) at patient's floor/unit and/or counseling patient: Coding Level of Care Code 40544 Subseq Hosp Care Lvl 2 Diagnoses Complicated UTI (urinary tract infection) N39.0 S/P ureteral stent placement Z96.0 Chronic indwelling Myles catheter Z97.8
[2019-12-30] MEDS ORDERED: FLUCONAZOLE 100 MG TAB PO ONE (10:30)
[2019-12-30] MEDS: traMADol HCL 50 MG TABLET PO PRN (10:45)
[2019-12-30 11:14] LABS: Hemoglobin 11.5 g/dL (14.0-18.0); Mean Corpuscular Hgb Conc 31.9 g/dL (32-36); Platelet Count 249 K/uL (130-400); RDW Coefficient of Variation 13.7 % (11.5-14.5); Red Blood Count 3.83 M/uL (4.7-6.1); White Blood Count 8.48 K/uL (4.8-10.8)
[2019-12-30 11:37] LABS: BUN Creatinine Ratio 8.8 (10-20); Creatinine Clr Calc Pharmacy 31.5 ml/min; Est GFR (African American) 41.4; Est GFR (Non-African American) 35.7; Potassium 3.3 mmol/L (3.5-5.1)
[2019-12-30] MEDS ORDERED: POTASSIUM CHLORIDE CRTAB 20 MEQ TABCR PO STA (16:57)
[2019-12-30] MEDS ORDERED: predniSONE 10 MG TABLET PO ONE (16:57)
[2019-12-30] MEDS ORDERED: PNEUMOCOCCAL ADMINISTRATION CHARGE ONE (18:45)
[2019-12-30] MEDS ORDERED: INFLUENZA ADMINISTRATION CHARGE ONE (18:45)
--- NOTE | 2019-12-30 20:23 | Hospitalist Progress Note ---
Date of Service December 30, 2019 Assessment & Plan (1) S/P ureteral stent placement: POD #1 s/p cystoscopy with b/l stent exchange. significant debris from left kidney - urine culture sent, growing grisel albicans and e.coli (likely the e.coli that was present on prior culture). continue myles. mild hematuria -- but H/H acceptable. (2) Sepsis: 2nd to catheter-associated / complicated UTI. sepsis resolved. blood cx's neg. (3) Complicated UTI (urinary tract infection): with possible left-sided pyelonephritis. pyelonephritis clinically resolved, but cysto yesterday with considerable debris seen from left kidney. repeat urine cx as above. admission urine cx: providencia along with e.coli - unable to obtain sensitivities on latter, however. cont rocephin 2gm daily IV. repeat urine cx with grisel albicans - give 200mg diflucan now, then 100mg daily starting tomorrow. for e.coli - rocephin should suffice, await final sensitivities. (4) Acute blood loss anemia: about a 3 gram drop from admission with melena stools and heme+ stool. prior h/o gastric ulcer per records. continues on PPI twice daily + carafate QID. no further melena. H/H remaining stable. cont current care plan. defer on GI consult unless ongoing H/H drop. recheck cbc am. (5) Melena: PPI twice daily + carafate QID. Patient states he takes motrin every day at home? This is in setting of aspirin and eliquis use. holding both meds. repeat h/h in am. ulcer vs gastritis vs other. uncertain when to resume eliquis given his hematuria and recent melena - perhaps at time of d/c? (6) Atrial fibrillation: rate controlled with coreg. holding eliquis for now. (7) CKD (chronic kidney disease) stage 3, GFR 30-59 ml/min: baseline Cr 1.6 mild GIOVANY present but improving - Cr now 1.7 BMP in am for stability (8) Chronic indwelling Myles catheter: exchanged in ER, and then again during cystoscopy yesterday (9) Hypothyroidism: 11-14 TSH 3.130 well controlled cont synthroid 100mcg (10) GERD (gastroesophageal reflux disease): holding eliquis due to need for ureteral stent exchange see above in "melena" (11) Dementia: cont aricept cont namenda (12) Hx of gastric ulcer: could easily have recurrent ulcer given his recent melena PPI + carafate (13) Cardiac pacemaker in situ: noted (14) CAD (coronary artery disease), [place] coronary artery: no ischemic symptoms at this time holding aspirin due to heme+ stool and concern for upper GI bleeding cont coreg cont statin (15) Metabolic encephalopathy: 2nd to UTI improved seems to be back at his normal neurocognitive baseline (which is dementia) (16) DVT prophylaxis: SCDs cont PT/OT son updated by phone 12/26 and 12/29 left additional message for son on 12/27 home this weekend -- pt's refusing placement for patient Admission and Anticipated Discharge Date Admission Date: December 24, 2019 Subjective patient resting in bed during rounds. no complaints. myles w/ mild hematuria. as usual he states how appreciate he is of the staff. eating well. no new issues. Review of Systems Constitutional: no fever and no chills Respiratory: no cough and no dyspnea Cardiovascular: no chest pain Gastrointestinal: no abdominal pain, no nausea and no vomiting Physical Exam Constitutional: + altered mental status (baseline dementia); no acute distress ENMT: external ear and nose normal, oropharynx normal Respiratory: normal respiratory effort, lungs clear to auscultation Cardiovascular: Rate/Rhythm: regular rate and regular rhythm Heart Sounds: normal S1 and normal S2; no murmur Vessels: posterior tibial pulses present and dorsalis pedis pulses present; no JVD Extremities: no edema Gastrointestinal (Abdomen): normal bowel sounds, soft, nontender, no hepatosplenomegaly Psychiatric: Orientation: alert, oriented to person and oriented to place; + not oriented to time Results & Data Results & [facility] ([facility]) Vital Signs (Past 12 Hours) Vital Signs Temp Pulse Pulse Resp BP Pulse Ox 12/30/19 17:37 63 132/82 12/30/19 15:25 36.4 C L 63 16 102/64 95 12/30/19 12:30 36.4 C L 65 16 108/69 95 12/30/19 09:00 66 Laboratory Results Laboratory Results - last 24 hr 12/30/19 12/30/19 10:58 10:58 WBC 8.48 RBC 3.83 L Hgb 11.5 L Hct 36.0 L MCV 94.0 MCH 30.0 MCHC 31.9 L RDW Std Deviation 47.0 H RDW Coeff of [place] 13.7 Plt Count 249 MPV 10.0 Sodium 140 Potassium 3.3 L Chloride 105 Carbon Dioxide 30 Anion Gap 5.0 BUN 15 Creatinine 1.76 H Est Cr Clr Drug Dosing 31.5 Est GFR ( Amer) 41.4 Est GFR (Non-Af Amer) 35.7 BUN/Creatinine Ratio 8.8 L Glucose 143 H Calcium 9.0 urine cx - grisel albicans, e.coli (2000 CFU) PG Care Time/CCT Total # of Minutes Spent Total Time Spent with Patient: Total time spent is greater than 50% in coordination of care (as documented) at patient's floor/unit and/or counseling patient: Coding Level of Care Code 24277 Subseq Hosp Care Lvl 2 Diagnoses S/P ureteral stent placement Z96.0 Sepsis A41.9 Sepsis acute organ dysfunction status: unspecified Sepsis type: sepsis due to unspecified organism Complicated UTI (urinary tract infection) N39.0 Acute blood loss anemia D62 Melena K92.1 Atrial fibrillation I48.91 Atrial fibrillation type: unspecified CKD (chronic kidney disease) stage 3, GFR 30-59 ml/min N18.30 Chronic kidney disease stage 3 subtype: unspecified whether 3a or 3b Chronic indwelling Myles catheter Z97.8 Hypothyroidism E03.9 Hypothyroidism type: acquired GERD (gastroesophageal reflux disease) K21.9 Esophagitis presence: esophagitis presence not specified Dementia F03.90 Hx of gastric ulcer Z87.19 Cardiac pacemaker in situ Z95.0 CAD (coronary artery disease), [place] coronary artery I25.10 Associated angina: without angina [place] vs. transplanted heart: [place] heart Metabolic encephalopathy G93.41 DVT prophylaxis Z29.9 (1) CKD (chronic kidney disease) stage 3, GFR 30-59 ml/min Chronic kidney disease stage 3 subtype: unspecified whether 3a or 3b Qualified Code(s): N18.30 - Chronic kidney disease, stage 3 unspecified (2) Atrial fibrillation Atrial fibrillation type: unspecified Qualified Code(s): I48.91 - Unspecified atrial fibrillation (3) Hypothyroidism Hypothyroidism type: acquired Qualified Code(s): E03.9 - Hypothyroidism, unspecified (4) CAD (coronary artery disease), [place] coronary artery Associated angina: without angina [place] vs. transplanted heart: [place] heart Qualified Code(s): I25.10 - Atherosclerotic heart disease of [place] coronary artery without angina pectoris (5) Sepsis Sepsis acute organ dysfunction status: unspecified Sepsis type: sepsis due to unspecified organism Qualified Code(s): A41.9 - Sepsis, unspecified organism (6) GERD (gastroesophageal reflux disease) Esophagitis presence: esophagitis presence not specified Qualified Code(s): K21.9 - Gastro-esophageal reflux disease without esophagitis
[2019-12-30] MEDS: TAMSULOSIN HCL 0.4 MG CAP PO SCH (21:34)
[2019-12-30] MEDS: PANTOprazole 40 MG TAB PO SCH (21:34)
[2019-12-30] MEDS: GABAPENTIN 300 MG CAP PO SCH (21:34)
[2019-12-30] MEDS: SIMVASTATIN 80 MG TAB PO SCH (21:34)
[2019-12-30] MEDS: DONEPEZIL HCL 10 MG TAB PO SCH (21:35)
[2019-12-30] MEDS: cefTRIAXone SODIUM 2,000 MG in DEXTROSE 5% 50 ML IV SCH (22:10)
[2019-12-31] MEDS: LEVOTHYROXINE SODIUM 100 MCG TABLET PO SCH (05:57)
[2019-12-31] MEDS: SUCRALFATE 1 GM/10 ML UDC PO SCH ×4 (06:33→20:29)
[2019-12-31 07:01] LABS: BUN Creatinine Ratio 10.7 (10-20); Calcium 9.1 mg/dl (8.5-10.1); Creatinine Clr Calc Pharmacy 27.2 ml/min; Est GFR (African American) 34.6; Est GFR (Non-African American) 29.9; Magnesium 2.3 mg/dl (1.8-2.4)
[2019-12-31] MEDS: FERROUS SULFATE 325 MG TAB PO SCH ×2 (08:17→17:19)
[2019-12-31] MEDS: DOCUSATE SODIUM/SENNA 50/8.6MG TAB PO SCH (08:17)
[2019-12-31] MEDS: FOLIC ACID 1 MG TAB PO SCH (08:17)
[2019-12-31] MEDS: MEMANTINE HCL 10 MG TAB PO SCH ×2 (08:17→20:30)
[2019-12-31] MEDS: BETHANECHOL CHL 25 MG TAB PO SCH ×4 (08:17→20:30)
[2019-12-31] MEDS: PANTOprazole 40 MG TAB PO SCH ×2 (08:17→20:30)
[2019-12-31] MEDS: buPROPion SR 100 MG TABCR PO SCH (08:17)
[2019-12-31] MEDS: ADVANCED PROBIOTIC 1250 MG CAPSULE PO SCH (08:17)
[2019-12-31] MEDS: CITALOPRAM 20 MG TAB PO SCH (08:17)
[2019-12-31] MEDS: ISOSORBIDE MONO EXTENDED REL 60 MG TABCR PO SCH (08:17)
[2019-12-31] MEDS: carvediloL 3.125 MG TAB PO SCH ×2 (08:17→17:18)
[2019-12-31] MEDS: FLUCONAZOLE 50 MG TAB PO SCH (10:17)
[2019-12-31 10:54] LABS: Potassium 4.4 mmol/L (3.5-5.1)
[2019-12-31] MEDS: AMOXICILLIN/CLAVULANATE 500 MG TAB PO SCH (17:15)
[2019-12-31] MEDS: DONEPEZIL HCL 10 MG TAB PO SCH (20:29)
[2019-12-31] MEDS: TAMSULOSIN HCL 0.4 MG CAP PO SCH (20:30)
[2019-12-31] MEDS: SIMVASTATIN 80 MG TAB PO SCH (20:30)
[2019-12-31] MEDS: GABAPENTIN 300 MG CAP PO SCH (20:30)
--- NOTE | 2019-12-31 21:03 | Hospitalist Progress Note ---
Date of Service December 31, 2019 Assessment & Plan (1) S/P ureteral stent placement: POD #2 s/p cystoscopy with b/l stent exchange. significant debris from left kidney - urine culture sent, growing grisel albicans and e.coli. continue myles. mild hematuria -- resolved. will need urology f/u post-discharge. (2) Sepsis: 2nd to catheter-associated / complicated UTI. sepsis resolved. blood cx's neg. (3) Complicated UTI (urinary tract infection): with possible left-sided pyelonephritis. pyelonephritis clinically resolved, but cysto yesterday with considerable debris seen from left kidney. repeat urine cx as above. admission urine cx: providencia along with e.coli. repeat urine cx from his cystoscopy with grisel albicans - Diflucan day #2. plan 14-day course in total diflucan. for e.coli - stop rocephin today, change to augmentin, and plan on another 10 days of the augmentin. (4) Acute blood loss anemia: about a 3 gram drop from admission with melena stools and heme+ stool. prior h/o gastric ulcer per records. continues on PPI twice daily + carafate QID. no further melena. H/H remaining stable. cont current care plan. defer on GI consult unless ongoing H/H drop. recheck cbc am. send home with PPI bid and carafate (latter only for 1 week). timing of resumption of asa? timing of resumption of apixaban? (5) Melena: PPI twice daily + carafate QID. Patient states he takes motrin every day at home? This is in setting of aspirin and eliquis use. holding both meds. repeat h/h in am. ulcer vs gastritis vs other. uncertain when to resume eliquis given his hematuria and recent melena - perhaps at time of d/c? (6) Atrial fibrillation: rate controlled with coreg. holding eliquis for now. (7) CKD (chronic kidney disease) stage 3, GFR 30-59 ml/min: baseline Cr 1.6 mild GIOVANY present since admission with up/down Cr day to day; now 2 today BMP in am for stability (8) Chronic indwelling Myles catheter: exchanged in ER, and then again during cystoscopy yesterday (9) Hypothyroidism: 11-14 TSH 3.130 well controlled cont synthroid 100mcg (10) GERD (gastroesophageal reflux disease): holding eliquis due to need for ureteral stent exchange see above in "melena" (11) Dementia: cont aricept cont namenda (12) Hx of gastric ulcer: could easily have recurrent ulcer given his recent melena; fortunately melena has resolved PPI + carafate (13) Cardiac pacemaker in situ: noted (14) CAD (coronary artery disease), [place] coronary artery: no ischemic symptoms at this time holding aspirin due to heme+ stool and concern for upper GI bleeding cont coreg cont statin (15) Metabolic encephalopathy: 2nd to UTI improved/resolved seems to be back at his normal neurocognitive baseline (which is dementia) (16) DVT prophylaxis: SCDs cont PT/OT son updated by phone 12/26, 12[facility]'s [facility] for patient patient lives with and 2 daughters thus 01/09 supervision is available for him Admission and Anticipated Discharge Date Admission Date: December 24, 2019 Subjective patient sitting in chair watching TV says, like previous visits, "I sure do thank all of you for helping me" denied ANY complaints today including abd pain, nausea, emesis myles with clear urine -- hematuria resolved eating 100% meals Review of Systems Constitutional: no fatigue and no anorexia Respiratory: no dyspnea Cardiovascular: no chest pain Musculoskeletal: no back pain Physical Exam Constitutional: + altered mental status (baseline dementia); no acute distress ENMT: external ear and nose normal, oropharynx normal Respiratory: normal respiratory effort, lungs clear to auscultation Cardiovascular: Rate/Rhythm: regular rate and regular rhythm Heart Sounds: normal S1 and normal S2; no murmur Vessels: posterior tibial pulses present and dorsalis pedis pulses present; no JVD Extremities: no edema Gastrointestinal (Abdomen): normal bowel sounds, soft, nontender, no hepatosplenomegaly Psychiatric: Orientation: alert, oriented to person and oriented to place; + not oriented to time Results & Data Results & Data ([facility]) Vital Signs (Past 12 Hours) Vital Signs Temp Pulse Pulse Resp BP Pulse Ox 12/31/19 17:19 60 123/73 12/31/19 15:12 36.7 C 74 16 94/60 L 95 Laboratory Results Laboratory Results - last 24 hr 12/31/19 12/31/19 05:30 05:30 Hgb 10.8 L Sodium 139 Potassium 4.4 D Chloride 106 Carbon Dioxide 30 Anion Gap 3.0 BUN 22 H Creatinine 2.04 H Est Cr Clr Drug Dosing 27.2 Est GFR ( Amer) 34.6 Est GFR (Non-Af Amer) 29.9 BUN/Creatinine Ratio 10.7 Glucose 109 H Calcium 9.1 Magnesium 2.3 Specimen Hemolysis PG Care Time/CCT Total # of Minutes Spent Total Time Spent with Patient: Total time spent is greater than 50% in coordination of care (as documented) at patient's floor/unit and/or counseling patient: Coding Level of Care Code 73472 Subseq Hosp Care Lvl 2 Diagnoses S/P ureteral stent placement Z96.0 Sepsis A41.9 Sepsis acute organ dysfunction status: unspecified Sepsis type: sepsis due to unspecified organism Complicated UTI (urinary tract infection) N39.0 Acute blood loss anemia D62 Melena K92.1 Atrial fibrillation I48.91 Atrial fibrillation type: unspecified CKD (chronic kidney disease) stage 3, GFR 30-59 ml/min N18.30 Chronic kidney disease stage 3 subtype: unspecified whether 3a or 3b Chronic indwelling Myles catheter Z97.8 Hypothyroidism E03.9 Hypothyroidism type: acquired GERD (gastroesophageal reflux disease) K21.9 Esophagitis presence: esophagitis presence not specified Dementia F03.90 Hx of gastric ulcer Z87.19 Cardiac pacemaker in situ Z95.0 CAD (coronary artery disease), [place] coronary artery I25.10 Associated angina: without angina [place] vs. transplanted heart: [place] heart Metabolic encephalopathy G93.41 DVT prophylaxis Z29.9 (1) CKD (chronic kidney disease) stage 3, GFR 30-59 ml/min Chronic kidney disease stage 3 subtype: unspecified whether 3a or 3b Qualified Code(s): N18.30 - Chronic kidney disease, stage 3 unspecified (2) Atrial fibrillation Atrial fibrillation type: unspecified Qualified Code(s): I48.91 - Unspecified atrial fibrillation (3) Hypothyroidism Hypothyroidism type: acquired Qualified Code(s): E03.9 - Hypothyroidism, unspecified (4) CAD (coronary artery disease), [place] coronary artery Associated angina: without angina [place] vs. transplanted heart: [place] heart Qualified Code(s): I25.10 - Atherosclerotic heart disease of [place] coronary artery without angina pectoris (5) Sepsis Sepsis acute organ dysfunction status: unspecified Sepsis type: sepsis due to unspecified organism Qualified Code(s): A41.9 - Sepsis, unspecified organism (6) GERD (gastroesophageal reflux disease) Esophagitis presence: esophagitis presence not specified Qualified Code(s): K21.9 - Gastro-esophageal reflux disease without esophagitis
[2020-01-01] MEDS: traMADol HCL 50 MG TABLET PO PRN ×3 (01:19→23:13)
[2020-01-01] MEDS: ACETAMINOPHEN 325 MG TAB PO PRN ×3 (04:28→21:14)
--- NOTE | 2020-01-01 04:48 | Communication Note ---
Date of Service: January 01, 2020 Waffle boots ordered overnight for "boggy heels" and L toe/plantar surface pain. Resident Activity Tracking Resident Involvement: Coding Quality Coordinator Coverage Note Care Provided: Adult Hospital Medicine
[2020-01-01] MEDS: LEVOTHYROXINE SODIUM 100 MCG TABLET PO SCH (05:39)
[2020-01-01] MEDS: SUCRALFATE 1 GM/10 ML UDC PO SCH ×4 (06:25→20:30)
[2020-01-01 06:42] LABS: BUN Creatinine Ratio 13.3 (10-20); Calcium 8.4 mg/dl (8.5-10.1); Creatinine Clr Calc Pharmacy 27.7 ml/min; Est GFR (African American) 35.5; Est GFR (Non-African American) 30.6; Potassium 3.8 mmol/L (3.5-5.1)
[2020-01-01] MEDS: DOCUSATE SODIUM/SENNA 50/8.6MG TAB PO SCH (08:48)
[2020-01-01] MEDS: PANTOprazole 40 MG TAB PO SCH ×2 (08:48→20:31)
[2020-01-01] MEDS: BETHANECHOL CHL 25 MG TAB PO SCH ×4 (08:48→20:31)
[2020-01-01] MEDS: ISOSORBIDE MONO EXTENDED REL 60 MG TABCR PO SCH (08:48)
[2020-01-01] MEDS: FOLIC ACID 1 MG TAB PO SCH (08:48)
[2020-01-01] MEDS: CITALOPRAM 20 MG TAB PO SCH (08:48)
[2020-01-01] MEDS: FERROUS SULFATE 325 MG TAB PO SCH ×2 (08:48→17:22)
[2020-01-01] MEDS: carvediloL 3.125 MG TAB PO SCH ×2 (08:48→17:22)
[2020-01-01] MEDS: ADVANCED PROBIOTIC 1250 MG CAPSULE PO SCH (08:49)
[2020-01-01] MEDS: AMOXICILLIN/CLAVULANATE 500 MG TAB PO SCH ×2 (08:49→17:21)
[2020-01-01] MEDS: FLUCONAZOLE 50 MG TAB PO SCH (08:49)
[2020-01-01] MEDS: MEMANTINE HCL 10 MG TAB PO SCH ×2 (08:49→20:30)
[2020-01-01] MEDS: buPROPion SR 100 MG TABCR PO SCH (08:49)
--- NOTE | 2020-01-01 14:30 | Hospitalist Progress Note ---
Date of Service January 01, 2020 Assessment & Plan (1) S/P ureteral stent placement: s/p cystoscopy with b/l stent exchange on 12/28 significant debris from left kidney - urine culture sent, growing grisel albicans and e.coli. continue myles. mild hematuria -- resolved. will need urology f/u post-discharge. (2) Sepsis: 2nd to catheter-associated / complicated UTI. sepsis resolved. blood cx neg. (3) Complicated UTI (urinary tract infection): with possible left-sided pyelonephritis. pyelonephritis clinically resolved, but cysto with considerable debris seen from left kidney. repeat urine cx as above. admission urine cx: providencia along with e.coli. repeat urine cx from his cystoscopy with grisel albicans - Diflucan started 12/28. plan 14-day course in total diflucan. for e.coli - stop rocephin 12/30, change to augmentin 12/30, and plan on 10 days total of the augmentin. (4) Acute blood loss anemia: about a 3 gram drop from admission with melena stools and heme+ stool. prior h/o gastric ulcer per records. continues on PPI twice daily + carafate QID. no further melena. H/H remaining stable. cont current care plan. defer on GI consult unless ongoing H/H drop. recheck cbc am. send home with PPI bid and carafate (latter only for 1 week). timing of resumption of asa? timing of resumption of apixaban? (5) Melena: PPI twice daily + carafate QID. Patient states he takes motrin every day at home? This is in setting of aspirin and eliquis use. holding both meds. repeat h/h in am. ulcer vs gastritis vs other. (6) Atrial fibrillation: rate controlled with coreg. holding eliquis for now. (7) CKD (chronic kidney disease) stage 3, GFR 30-59 ml/min: baseline Cr 1.6 mild GIOVANY present since admission with up/down Cr day to day; continues to be elevated BMP in am for stability (8) Chronic indwelling Myles catheter: exchanged in ER, and then again during cystoscopy (9) Hypothyroidism: 11-14 TSH 3.130 well controlled cont synthroid 100mcg (10) GERD (gastroesophageal reflux disease): holding eliquis due to need for ureteral stent exchange see above in "melena" (11) Dementia: cont aricept cont namenda (12) Hx of gastric ulcer: could easily have recurrent ulcer given his recent melena; fortunately melena has resolved PPI + carafate (13) Cardiac pacemaker in situ: noted (14) CAD (coronary artery disease), [place] coronary artery: no ischemic symptoms at this time holding aspirin due to heme+ stool and concern for upper GI bleeding cont coreg cont statin (15) Metabolic encephalopathy: 2nd to UTI improved/resolved seems to be back at his normal neurocognitive baseline (which is dementia) (16) DVT prophylaxis: SCDs cont PT/OT pt's refusing placement for patient patient lives with and 2 daughters thus 01/09 supervision is available for him Planning for [facility] Admission and Anticipated Discharge Date Admission Date: December 24, 2019 Subjective Pt states he feels much more weak today than yesterday. He is OOB in the chair and states he feels he would like to go back to bed. He is eating without issue. Pt denies fever, SOB, chest pain, abd pain, n/v/c/d, LE pain or swelling. Pt tells me today he cannot believe how good the care is at this hospital. He states he has never been taken care of this well and is very appreciative. Review of Systems Review of Systems: Pertinent positives and negatives reviewed in HPI--all others negative Physical Exam Constitutional: WD/WN, vitals as above Eyes: normal visual kang by confrontation and + anicteric sclerae Neck: normal visual inspection and trachea midline Respiratory: normal respiratory effort, lungs clear to auscultation Cardiovascular: Rate/Rhythm: regular rate and regular rhythm Gastrointestinal (Abdomen): Inspection/Auscultation: abdomen not distended Percussion/Palpation: abdomen soft; abdomen nontender Musculoskeletal: Head/Neck/Chest: normocephalic and head atraumatic negative for edema, peripheral pulses intact Skin: no rashes, warm and dry Neurologic: awake; not confused Speech / Cognition: normal speech Psychiatric: Orientation: oriented to person, oriented to place and cooperative Speech: normal rate/rhythm/volume of speech Affect: euthymic affect Results & Data Results & Data ([facility]) Vital Signs (Past 12 Hours) Vital Signs Temp Pulse Pulse Resp BP BP Pulse Ox 01/01/20 08:53 60 134/76 01/01/20 07:50 36.4 C L 60 18 183/100 H 94 PG Care Time/CCT Total # of Minutes Spent Total Time Spent with Patient: Total time spent is greater than 50% in coordination of care (as documented) at patient's floor/unit and/or counseling patient: Coding Level of Care Code 25458 Subseq Hosp Care Lvl 3 Diagnoses S/P ureteral stent placement Z96.0 Sepsis A41.9 Sepsis type: sepsis due to unspecified organism Sepsis acute organ dysfunction status: unspecified Complicated UTI (urinary tract infection) N39.0 Acute blood loss anemia D62 Melena K92.1 Atrial fibrillation I48.91 Atrial fibrillation type: unspecified CKD (chronic kidney disease) stage 3, GFR 30-59 ml/min N18.30 Chronic kidney disease stage 3 subtype: unspecified whether 3a or 3b Chronic indwelling Myles catheter Z97.8 Hypothyroidism E03.9 Hypothyroidism type: acquired GERD (gastroesophageal reflux disease) K21.9 Esophagitis presence: esophagitis presence not specified Dementia F03.90 Hx of gastric ulcer Z87.19 Cardiac pacemaker in situ Z95.0 CAD (coronary artery disease), [place] coronary artery I25.10 [place] vs. transplanted heart: [place] heart Associated angina: without angina Metabolic encephalopathy G93.41 DVT prophylaxis Z29.9 (1) Sepsis Sepsis type: sepsis due to unspecified organism Sepsis acute organ dysfunction status: unspecified Qualified Code(s): A41.9 - Sepsis, unspecified organism (2) Atrial fibrillation Atrial fibrillation type: unspecified Qualified Code(s): I48.91 - Unspecified atrial fibrillation (3) CKD (chronic kidney disease) stage 3, GFR 30-59 ml/min Chronic kidney disease stage 3 subtype: unspecified whether 3a or 3b Qualified Code(s): N18.30 - Chronic kidney disease, stage 3 unspecified (4) Hypothyroidism Hypothyroidism type: acquired Qualified Code(s): E03.9 - Hypothyroidism, unspecified (5) GERD (gastroesophageal reflux disease) Esophagitis presence: esophagitis presence not specified Qualified Code(s): K21.9 - Gastro-esophageal reflux disease without esophagitis (6) CAD (coronary artery disease), [place] coronary artery [place] vs. transplanted heart: [place] heart Associated angina: without angina Qualified Code(s): I25.10 - Atherosclerotic heart disease of [place] coronary artery without angina pectoris
[2020-01-01] MEDS: DONEPEZIL HCL 10 MG TAB PO SCH (20:29)
[2020-01-01] MEDS: TAMSULOSIN HCL 0.4 MG CAP PO SCH (20:30)
[2020-01-01] MEDS: GABAPENTIN 300 MG CAP PO SCH (20:30)
[2020-01-01] MEDS: SIMVASTATIN 80 MG TAB PO SCH (20:32)
[2020-01-02] MEDS: LEVOTHYROXINE SODIUM 100 MCG TABLET PO SCH (05:13)
[2020-01-02 06:12] LABS: BUN Creatinine Ratio 13.1 (10-20); Calcium 8.6 mg/dl (8.5-10.1); Creatinine Clr Calc Pharmacy 28.9 ml/min; Est GFR (African American) 37.3; Est GFR (Non-African American) 32.2; Potassium 3.9 mmol/L (3.5-5.1)
[2020-01-02] MEDS: SUCRALFATE 1 GM/10 ML UDC PO SCH ×2 (08:10→10:49)
[2020-01-02] MEDS: MEMANTINE HCL 10 MG TAB PO SCH (08:10)
[2020-01-02] MEDS: DOCUSATE SODIUM/SENNA 50/8.6MG TAB PO SCH (08:11)
[2020-01-02] MEDS: AMOXICILLIN/CLAVULANATE 500 MG TAB PO SCH (08:11)
[2020-01-02] MEDS: ISOSORBIDE MONO EXTENDED REL 60 MG TABCR PO SCH (08:11)
[2020-01-02] MEDS: FERROUS SULFATE 325 MG TAB PO SCH (08:11)
[2020-01-02] MEDS: carvediloL 3.125 MG TAB PO SCH (08:11)
[2020-01-02] MEDS: CITALOPRAM 20 MG TAB PO SCH (08:12)
[2020-01-02] MEDS: buPROPion SR 100 MG TABCR PO SCH (08:12)
[2020-01-02] MEDS: FOLIC ACID 1 MG TAB PO SCH (08:12)
[2020-01-02] MEDS: FLUCONAZOLE 50 MG TAB PO SCH (08:12)
[2020-01-02] MEDS: ADVANCED PROBIOTIC 1250 MG CAPSULE PO SCH (08:12)
[2020-01-02] MEDS: BETHANECHOL CHL 25 MG TAB PO SCH (08:13)
[2020-01-02] MEDS: PANTOprazole 40 MG TAB PO SCH (08:13)
--- NOTE | 2020-01-02 12:48 | Discharge Summary ---
Date of Service January 02, 2020 Admission HPI Per Admitting Provider Alfredo Momin is an 79 year old male with dementia who presents from home to the ER due to generalized weakness and fatigue. Unable to get any history from the patient due to dementia. He is orientated to her (daughter with him in the ER) but otherwise unable to tell me where he is or the correct date. His daughter is also unable to tell me much history other than the home nursing agency thought he should be here. She does report he has been sleeping more for the last 1.5 weeks with increased shortness of breath, generalized weakness and generally more confused. He has a history of bilateral hydronephrosis with bilateral ureteral stents which are due to be removed this coming week. He also has a chronic folet catheter which was exchanged in the ER. He is usually mobile with a walker. Tried calling his but no answer on number provided. In the ER CT head and chest x-ray were unremarkable. WBC elevated at 18.96. He was referred to medicine for UTI and weakness. Principal Diagnosis Pt states he feels much better today. He does not feel weak like he had felt yesterday. Tolerating PO without issue. Pt denies fever, SOB, chest pain, abd pain, n/v/c/d, LE pain or swelling. Discharge Exam Constitutional WD/WN, vitals as above Eyes normal visual kang by confrontation and + anicteric sclerae Neck normal visual inspection and trachea midline Respiratory normal respiratory effort, lungs clear to auscultation Cardiovascular Rate/Rhythm: regular rate and regular rhythm Gastrointestinal (Abdomen) Inspection/Auscultation: abdomen not distended Percussion/Palpation: abdomen soft; abdomen nontender Musculoskeletal Head/Neck/Chest: normocephalic and head atraumatic Skin no rashes, warm and dry Neurologic awake; not confused Speech / Cognition: normal speech Psychiatric Orientation: oriented to person, oriented to place and cooperative Speech: normal rate/rhythm/volume of speech Affect: euthymic affect Discharge Data Allergies Allergy/AdvReac Type Severity Reaction Status Date / Time captopril Allergy Severe ANAPHYLAXIS Verified 12/24/19 20:07 Iodinated Contrast Media Allergy Severe ANAPHYLAXIS Verified 12/24/19 20:07 levofloxacin Allergy Severe ANAPHYLAXIS Verified 12/24/19 20:07 morphine Allergy Severe Anaphylaxis Verified 12/24/19 20:07 oxaprozin Allergy Severe ANAPHYLAXIS Verified 12/24/19 20:07 Sulfa (Sulfonamide Allergy Severe Anaphylaxis Verified 12/24/19 20:07 Antibiotics) torsemide Allergy Severe ANAPHYLAXIS Verified 12/24/19 20:07 hydrocodone Allergy Mild RASH Verified 12/24/19 20:07 Consultations 12/24/19 17:46 ED Decision to Admit Stat 12/25/19 06:47 Consult Urology Routine Procedures Performed Operation Date: 12/29/19 13:45 Actual Procedures p Bilateral Ureteral Stent Exchange(Not Applicable) - William Medrano DO s Cystoscopy, Bilateral Retrograde Pyelogram,(Not Applicable) - William Medrano DO Ordered Studies 12/24/19 16:39 CT head/brain wo con Stat 12/24/19 18:11 US renal/blad retro comp Stat 12/29/19 13:45 FL retrograde includes kub Routine Hospital Course (1) S/P ureteral stent placement: s/p cystoscopy with b/l stent exchange on 12/28 significant debris from left kidney - urine culture sent, growing grisel albicans and e.coli. continue myles. mild hematuria -- resolved. will need urology f/u post-discharge. (2) Sepsis: 2nd to catheter-associated / complicated UTI. sepsis resolved. blood cx neg. (3) Complicated UTI (urinary tract infection): with possible left-sided pyelonephritis. pyelonephritis clinically resolved, but cysto with considerable debris seen from left kidney. repeat urine cx as above. admission urine cx: providencia along with e.coli. repeat urine cx from his cystoscopy with grisel albicans - Diflucan started 12/28. plan 14-day course in total diflucan. for e.coli - stop rocephin 12/30, change to augmentin 12/30, and plan on 10 days total of the augmentin. (4) Acute blood loss anemia: about a 3 gram drop from admission with melena stools and heme+ stool. prior h/o gastric ulcer per records. continues on PPI twice daily + carafate QID. no further melena. H/H remaining stable. cont current care plan. defer on GI consult unless ongoing H/H drop. recheck cbc am. send home with PPI bid and carafate (latter only for 1 week). Hold aspirin, eliquis x2 week, resume 01/11 (5) Melena: PPI twice daily + carafate QID. Patient states he takes motrin every day at home? This is in setting of aspirin and eliquis use, hold x2 weeks total (resume 01/11) Hb has been stable ulcer vs gastritis vs other. (6) Atrial fibrillation: rate controlled with coreg. holding eliquis for now. (7) CKD (chronic kidney disease) stage 3, GFR 30-59 ml/min: baseline Cr 1.6 mild GIOVANY present since admission with up/down Cr day to day; continues to be elevated Repeat BMP on 01/03 Cr on d/c is 1.9 Pt is doing well with PO intake (8) Chronic indwelling Myles catheter: exchanged in ER, and then again during cystoscopy (9) Hypothyroidism: 12-23 TSH 3.130 well controlled cont synthroid 100mcg (10) GERD (gastroesophageal reflux disease): holding eliquis due to need for ureteral stent exchange see above in "melena" (11) Dementia: cont aricept cont namenda (12) Hx of gastric ulcer: could easily have recurrent ulcer given his recent melena; fortunately melena has resolved PPI + carafate Holding aspirin and eliquis until 01/11 (two weeks total) (13) Cardiac pacemaker in situ: noted (14) CAD (coronary artery disease), [place] coronary artery: no ischemic symptoms at this time holding aspirin due to heme+ stool and concern for upper GI bleeding cont coreg cont statin (15) Metabolic encephalopathy: 2nd to UTI improved/resolved seems to be back at his normal neurocognitive baseline (which is dementia) (16) DVT prophylaxis: SCDs cont PT/OT with N pt's refusing placement for patient patient lives with and 2 daughters thus 01/09 supervision is available for him I spoke with pt's who felt agreeable to pt coming home with [facility] today. I again offered rehab options, but she stated that they would like to go home with [facility] at this time. Both daughters were present and I was on speaker during this conversation. They are all in agreement with this plan. Pt is high risk for readmission given above. Total Time Total Time Spent Total Time Spent (In Minutes): >30 Total Time Includes: Examination of the Patient, Discharge Planning, Medication Reconciliation, Communication With Other Providers and Other Discharge Plan Discharge Items Patient Disposition: Home - Home Health Services Reason For Visit: COMPLICATED UTI Discharge Diagnosis: Complicated UTI Activity: Resume your previous activity Non-emergency contact: Primary Care Provider Call non-emergency contact if: you have any medication questions, your symptoms worsen and your pain is concerning for you Follow-up/Referrals: Celina Saunders DO [Primary Care Provider] - Diet: Regular Ambulatory Orders: Basic Metabolic Panel (Routine) Timeframe: 2 Days Location: Determined by Patient Ordered By: Norma Malcolm Attending Provider Instructions: Pt needs to have a BMP drawn on 01/03 with home health nursing I am listing your eliquis and aspirin as continued medications on your discharge paperwork, however you should not take them until 01/12/20 due to the bleeding you had while you were in the hospital (dark black stools). If you have return of dark or black stools or bright red blood appears in your stools after you start to take the eliquis and aspirin again, you should stop taking them and call your primary care doctor or come to the ED. Pending Studies at Discharge: No Stand-Alone Forms: [facility], Smoking Cessation Medications and DC Order Prescriptions: New amoxicillin-pot clavulanate 500-125 mg Tablet 1 tab PO BIDM 10 Days Qty: 20 RF: 0 fluconazole 50 mg Tablet 50 mg PO QAM 11 Days Qty: 11 RF: 0 Advanced Probiotic 625 mg (10 billion cell) Capsule 2 cap PO DAILY 30 Days Qty: 60 RF: 0 pantoprazole 40 mg Tablet,Delayed Release (Dr/Ec) 40 mg PO BID 30 Days Qty: 60 RF: 0 sennosides-docusate sodium [Senokot-S] 8.6-50 mg Tablet 1 tab PO QAM 30 Days Qty: 30 RF: 0 sucralfate 100 mg/mL Suspension 1 g PO ACHS 30 Days Qty: 300 RF: 0 Continued citalopram 10 mg tablet 10 mg PO DAILY Qty: 90 RF: 1 apixaban 5 mg tablet 5 mg PO BID Qty: 180 RF: 1 bupropion HCl 100 mg tablet sustained-release 12 hr 100 mg PO DAILY Qty: 90 RF: 1 carvedilol 3.125 mg tablet 3.125 mg PO BID Qty: 180 RF: 1 donepezil 10 mg tablet 10 mg PO HS Qty: 90 RF: 1 ferrous sulfate 325 mg (65 mg iron) tablet,delayed release (DR/EC) 325 mg PO BIDM Qty: 180 RF: 1 folic acid 1 mg tablet 1 mg PO QAM Qty: 90 RF: 1 levothyroxine 100 mcg tablet 100 mcg PO HS Qty: 90 RF: 1 isosorbide mononitrate 60 mg tablet extended release 24 hr 60 mg PO QAM Qty: 90 RF: 1 memantine [Namenda] 10 mg tablet 10 mg PO BID Qty: 180 RF: 1 tamsulosin 0.4 mg capsule 0.4 mg PO QPM Qty: 90 RF: 1 simvastatin 80 mg tablet 80 mg PO HS Qty: 90 RF: 1 tramadol 50 mg tablet 50 mg PO TID PRN (Reason: pain) Qty: 60 RF: 0 gabapentin 300 mg capsule 300 mg PO HS Qty: 90 RF: 1 epinephrine [EpiPen] 0.3 mg/0.3 mL Auto-Injector 0.3 mg IM UD PRN (Reason: Allergic Reaction) RF: 0 acetaminophen 325 mg Tablet 650 mg PO Q4H PRN (Reason: pain) Qty: 30 RF: 0 aspirin 81 mg Tablet,Delayed Release (Dr/Ec) 81 mg PO QAM RF: 0 bethanechol chloride 50 mg tablet 50 mg PO QID RF: 0 Discharge Orders: Discharge Order (Routine); Ordered 01/02/20 Ordered By: Norma Terrell/Other Patient Handouts: Healthy Kidneys Admission Data Admit Date/Time: 12/24/19 19:43 Attending Provider: Norma Perez Admit Provider: Wilberto Arce Primary Care Provider: Celina Saunders Other Providers: Chan Gillette [facility] ; Wilberto Arce ; Sharon Harper Other Interventions: Discharge Summary Assessment (RN) Last Done: 01/02/20 12:45 Coding Level of Care Code D/C Day Management >30 mins Diagnoses S/P ureteral stent placement Z96.0 Sepsis A41.9 Sepsis acute organ dysfunction status: unspecified Sepsis type: sepsis due to unspecified organism Complicated UTI (urinary tract infection) N39.0 Acute blood loss anemia D62 Melena K92.1 Atrial fibrillation I48.91 Atrial fibrillation type: unspecified CKD (chronic kidney disease) stage 3, GFR 30-59 ml/min N18.30 Chronic kidney disease stage 3 subtype: unspecified whether 3a or 3b Chronic indwelling Myles catheter Z97.8 Hypothyroidism E03.9 Hypothyroidism type: acquired GERD (gastroesophageal reflux disease) K21.9 Esophagitis presence: esophagitis presence not specified Dementia F03.90 Hx of gastric ulcer Z87.19 Cardiac pacemaker in situ Z95.0 CAD (coronary artery disease), zuni coronary artery I25.10 Associated angina: without angina [place] vs. transplanted heart: z[place] heart Metabolic encephalopathy G93.41 DVT prophylaxis Z29.9
== END 2020-01-02 14:39 | disposition home health service (06) | DRG 659 ==
LOC: ED 16:10 → 3E 19:43 → SUATTDRO 19:43 → 3E 20:40

== ENCOUNTER 2020-05-05 19:54 | Inpatient (IN) ==
--- NOTE | 2020-05-05 20:37 | Emergency Department Note ---
Impression & Plan Acute UTI, Weakness, Cough ED Provider Note NAME: HAYES KING AGE: 80 SEX: M : 1940 ARRIVES VIA: Ambulance INFORMANT: Patient, ED PROVIDER(S): Ceferino Harvey MD Chief Complaint: Weakness, cough HPI: Patient does present from home and the patient reportedly did have a recent suprapubic catheter placed earlier in the week by Dr. Medrano subsequently was discharged and was taking antibiotics. The patient said some intermittent confusion and blood in the catheter. The patient recently stopped his blood thinning medication due to the blood in the catheter. Patient does live at home with and additional family members. When the daughter did arrive she states that they were most concerned about his breathing and that he struggling to breathe for short period of time. He does have a remote history of smoking but has not smoked in many many years. No lower extremity swelling. The patient had completed a course of antibiotics which should have finished up within the last 24 hours but was still on one antibiotic. I did review the patient's cultures which showed stenotrophomonas. Patient reportedly has been exceptionally weak at home not being able to get in and out of the car. Patient has not had any productive cough. ROS: See HPI for pertinent positives and negatives. A total of 10 systems were reviewed and otherwise negative. Past medical history: See below Surgical history: See below Social history: See below Physical Exam: GENERAL: Weak in appearance, wearing a mask. EYE EXAM: Normal conjunctiva. PERRL, no anisocoria and EOM's grossly intact w/o pain. NECK: Supple, no nuchal rigidity, no adenopathy, non-tender. No signs of meningismus. LUNGS: Scant wheezes present. Normal chest wall mechanics. HEART: NSR, no MRG. ABDOMEN: Abdomen soft, mild diffuse pain with suprapubic catheter noted in the lower abdomen without any obvious overlying erythema or drainage, normo-active bowel sounds, no masses, no rebound or guarding. BACK: No CVA TTP. SKIN: No rashes and no bruising. UPPER EXTREMITIES: Upper extremities are grossly normal. LOWER EXTREMITIES: Grossly normal, no edema. NEURO EXAM: A&O x3, cranial nerves II-XII grossly intact, normal speech, moves all 4 extremities on command w/o issue. Differential diagnoses: Infection, dehydration, metabolic abnormality, hypo/hyperglycemia, electrolyte disturbance, anemia, hypoxia, cardiac sources, intracerebral event, toxicologic, neurologic, as well as other pathologies. Course: Patient was seen and evaluated the bedside. Full history physical exam was performed. EKG: Indication: Cough/shortness of breath Sinus bradycardia, rate of 58, normal intervals, left axis deviation, no obvious ST changes. Imaging Studies: Radiology results as stated below per my review in the radiologist's interpretation: XR chest 1V portable HISTORY: cough COMPARISON: Chest 05/05/2020. FINDINGS: The heart is normal in size. There is a left-sided dual-chamber pacemaker. The lungs are clear. No pleural effusions. No pneumothorax. The bones are osteopenic. IMPRESSION: No significant change compared to the prior study. No acute process. ACT 112: Negative or not required by law. Electronically signed by: Travis Cabrera M.D. 05/06/2020 9:36 AM Dictated: 05/06/20 [id number]: 05/06/[address] WITHOUT CONTRAST CT DOSE: 711.95 mGy.cm HISTORY: Acute generalized abdominal and pelvic pain with recent placement of a supraumbilical urinary catheter suprapubic cathetic recently placed, ab pain TECHNIQUE: Multiaxial CT images of the abdomen and pelvis were performed without contrast. A dose lowering technique was utilized adhering to the principles of ALARA. COMPARISON STUDY: CT abdomen and pelvis 11/25/2019. FINDINGS: Partially imaged pacer leads. Coronary artery calcifications. Mild bibasilar atelectasis/scarring. Small area of bronchiectasis involves the posterior basal segment right lower lobe. No pneumatosis or pneumoperitoneum. Calcific granulomata of the spleen. Limited evaluation of the solid organs without the use of IV contrast. Moderate generalized pancreatic atrophy. Unremarkable adrenal glands. Cholecystectomy. Unremarkable liver. Bilateral ureteral stents redemonstrated which appear to be in stable satisfactory positioning. No renal or ureteral calculi identified. There is mildly progressed dilation of the right renal collecting system and renal pelvis. The renal pelvis now measures 2.2 cm transversely, previously 1.5 cm. Cortical thinning of the left kidney with numerous cortical and renal sinus cysts redemonstrated. Bilateral urothelial thickening with perirenal and periureteral inflammatory stranding redemonstrated. Urinary bladder wall thickening with partial distention. Moderate amount of intraluminal air within the bladder lumen. A supraumbilical catheter has been placed in the interval. Distal tip terminates within the bladder lumen. Calcified plaque of the abdominal aorta without aneurysm. No adenopathy. Penile implant. Small fat filled bilateral inguinal hernias. Small duodenal diverticulum. No bowel obstruction. Intraluminal radiodense foci within the rectum may reflect no fragments. Moderate fecal retention results in distention of the rectum measuring up to 7.4 cm transversely. Mild rectal wall thickening with perirectal stranding. The appendix is not identified. Tiny fat filled periumbilical hernia. Unremarkable soft tissues. Degenerative changes of the spine, pelvis and hips. Include severe osteoarthritis with chronic remodeling of the left femoral acetabular joint. IMPRESSION: 1. Interval placement of a supraumbilical urinary bladder catheter. Air within the bladder lumen is noted in addition to bladder wall thickening and perivesicular stranding, possibly postprocedural. Correlate with urinalysis. 2. Satisfactory positioning of the bilateral ureteral stents. There is mildly progressed hydronephrosis on the right. 3. Persistent bilateral urothelial thickening of the collecting systems and ure ters may be reactive or reflect an ascending infectious or inflammatory ureteritis/pyelitis. 4. Constipation resulting in rectal distention. Rectal wall thickening with perirectal stranding may reflect associated stercoral proctitis. 5. Additional findings as above. ACT 112: Negative or not required by law. The above report was generated using voice recognition software. It may contain grammatical, syntax or spelling errors. Electronically signed by: Renny Joshi M.D. 05/06/2020 9:07 AM Dictated: 05/06/2058Transcribed: 05/06/20857 Cardiac monitoring: An order was placed for continuous cardiac monitoring. The monitor shows a rate of 58 with sinus rhythm. MDM: Patient does present with concern for weakness and shortness of breath. The patient is not tachypneic or overtly hypoxic on exam. Patient does have a remote history of smoking and does have some scant wheezes. The patient did have bladder completed along with Covid testing. Patient's urinalysis does barbra ear to possibly be infected given the stenotrophomonas I did speak with pharmacy who stated that Zosyn should be appropriate for this given that the patient is anaphylactic to Levaquin. Patient did have a normal white count with mild anemia. The patient's kidney function shows chronic kidney disease which is stable. TSH was elevated but free T4 normal. Covid RSV and flu negative. Chest x-ray with no obvious consolidation. The patient CT abdomen pelvis does show possible perivesicular stranding. Patient may have an element of right or right S or pyelitis. Constipation noted. I did speak with the on-call hospitalist and the patient was admitted to the medicine service by Dr. Mann. Past Med/Surg History Medical History Anxiety and depression Aortic stenosis Mild (MG 11 mmHg, UZMA 1.1 cm2) per 11/2015 ECHO. Valve not well visualized on echo 03/22/20. Atrial fibrillation dx 2017 >on Eliquis, no cardioversions BPH w urinary obs/LUTS CAD (coronary artery disease), [place] coronary artery S/P BMS to OM (1997). Caths also 2006, 2008 and 2013, no stents placed. Most recent cath in 2013 showed no angiographically significant stenosis other than 20-30% in-stent restenosis of OM. Cardiac pacemaker in situ Implanted 2008 (03/[address] [facility]. Replaced 2016. > Last pacer check 04/10/20 [facility] > Dr. Hodge Chronic indwelling Michel catheter Chronic pain CKD (chronic kidney disease) stage 3, GFR 30-59 ml/min Dementia Dyslipidemia GERD (gastroesophageal reflux disease) controlled History of kidney stones History of MT (myocardial infarction) 1997 HTN (hypertension), benign Hx of gastric ulcer Hypothyroidism Iron deficiency anemia Low blood pressure pt's reports this has been happening lately, last reading was 92/65 at cardiology visit on 04/10/20. Cardiology notes 'clinically stable.' Sleep apnea NO DEVICE Stage 3b chronic kidney disease Surgical History H/O total knee replacement RIGHT/LEFT History of cardiac cath MULTIPLE WITH TOTAL 4 STENTS > LAST ONE 3 YRS AGO > DEBBIE History of cataract surgery B/L History of colonoscopy History of lithotripsy History of lumbar fusion History of prostate surgery PARTIAL PROSTECTOMY History of thyroidectomy History of tooth extraction all teeth S/P cystoscopy with ureteral stent placement 12/29/19 Dr. William Medrano- Cystoscopy, Bilateral retrograde pyelogram, Bilateral ureteral stent exchange, Left aspiration and culture S/P TURP S/P ureteral stent placement Cysto, B/L RPG, right ureteroscopy, stent exchange: 07/06/18: LMA#5 at [facility] CYSTO STENT EXCHANGE 11/2018 Family History Father Diabetes Mother Coronary heart disease Hypertension Brother Seizure Denies family history of Ovarian cancer Prostate cancer Myocardial infarction Breast cancer Colorectal cancer Social History Smoking Status: Former smoker Tobacco Type: Cigarettes Smoking End Date: ; Second Hand Exposure: No; Hx Alcohol Use: No Hx Substance Use: No Preferred Language: Nepalese Communication Ability: Effective Visual Impairment: No Limitations [employer] Fusion Consultant Required: No Beliefs That Will Affect Care: None marital status: Current Living Situation: Spouse and Family Current Living Situation Comment: per RN report from ER, pt lives with and daughter current occupational status: retired How many Children do You have: 3 Other Information That Helps Us Care for You: No Feels Safe at Home: Yes Safety Concerns: Feels Safe At This Time Childhood Exposure to Second-Hand Smoke: No caffeine: Yes (Coffee 3 per day.) during the past year weight has: remained stable Dental Care, Regularly: No Physical Activity Frequency: Does not Exercise Seatbelt Use: always Sunscreen Use: No Assistive Devices: Walker Allergies Allergies Allergy/AdvReac Type Severity Reaction Status Date / Time captopril Allergy Severe ANAPHYLAXIS Verified 05/05/20 21:21 Iodinated Contrast Media Allergy Severe ANAPHYLAXIS Verified 05/05/20 21:21 levofloxacin Allergy Severe ANAPHYLAXIS Verified 05/05/20 21:22 morphine Allergy Severe Anaphylaxis Verified 05/05/20 21:21 oxaprozin Allergy Severe ANAPHYLAXIS Verified 05/05/20 21:22 Sulfa (Sulfonamide Allergy Severe Anaphylaxis Verified 05/05/20 21:22 Antibiotics) torsemide Allergy Severe ANAPHYLAXIS Verified 05/05/20 21:21 hydrocodone Allergy Mild RASH Verified 05/05/20 21:22 Home Meds Home Medications Medication Instructions Recorded Confirmed epinephrine [EpiPen] 0.3 mg IM UD PRN 06/05/18 05/05/20 bethanechol chloride 50 mg PO QID 12/24/19 05/05/20 bupropion HCl 100 mg PO QAM 04/13/20 05/05/20 citalopram 10 mg PO QAM 04/13/20 05/05/20 famotidine [Pepcid] 40 mg PO QAM 04/13/20 05/05/20 fluconazole 100 mg PO QAM 04/13/20 05/05/20 tramadol 50 mg PO TID PRN 05/05/20 05/05/20 Previous Rx's Medication Instructions Recorded acetaminophen 650 mg PO Q4H PRN #30 tab 08/14/19 carvedilol 3.125 mg tablet 3.125 mg PO BID #180 tab 10/04/19 ferrous sulfate 325 mg (65 mg 325 mg PO BIDM #180 tab 10/04/19 iron) tablet,delayed release folic acid 1 mg tablet 1 mg PO QAM #90 tab 10/04/19 levothyroxine 100 mcg tablet 100 mcg PO HS #90 tab 10/04/19 simvastatin 80 mg tablet 80 mg PO HS #90 tab 10/04/19 tamsulosin 0.4 mg capsule 0.4 mg PO QPM #90 cap 10/04/19 gabapentin 300 mg capsule 300 mg PO HS #90 cap 11/03/19 donepezil 10 mg tablet 10 mg PO HS #90 tab 02/06/20 memantine 10 mg tablet 10 mg PO BID #180 tab 02/06/20 apixaban 2.5 mg tablet 2.5 mg PO BID #180 tab 04/20/20 trimethoprim 100 mg tablet 100 mg PO Q12H 10 Days #20 tab 04/26/20 isosorbide mononitrate 60 mg 60 mg PO QAM #90 tab 04/30/20 tablet,extended release 24 hr oxybutynin chloride 5 mg PO Q8H PRN #14 tab 04/30/20 phenazopyridine [Pyridium] 200 mg PO Q8H PRN #10 tab 04/30/20 Results & Data (ED) Vital Signs Vital Signs - 24 hr 05/05/20 20:14 05/05/20 20:30 05/05/20 21:00 Temperature 36.5 C Temperature Source Oral Pulse Rate 63 57 L 57 L Pulse Rate from SpO2 Sensor 57 L 56 L Respiratory Rate 18 18 18 Respiratory Effort / Characteristics Non-Labored Spontaneous Respiratory Depth Normal Blood Pressure 119/80 122/75 133/77 Blood Pressure Mean 93 90 95 Pulse Oximetry 94 90 91 Oxygen Delivery Method Room Air Sepsis Recent Fever Within 48 Hours No Sepsis New/Unexplained Change in Mental Status No Sepsis Action Taken by Nursing No Action Required 05/05/20 21:21 05/05/20 21:30 05/05/20 22:00 Temperature Temperature Source Pulse Rate 53 L 52 L Pulse Rate from SpO2 Sensor 54 L 52 L Respiratory Rate 17 17 Respiratory Effort / Characteristics Respiratory Depth Blood Pressure 141/77 H 151/74 H Blood Pressure Mean 98 99 Pulse Oximetry 92 93 Oxygen Delivery Method Room Air Room Air Room Air Sepsis Recent Fever Within 48 Hours Sepsis New/Unexplained Change in Mental Status Sepsis Action Taken by Nursing 05/05/20 22:30 05/05/20 23:00 05/05/20 23:30 Temperature Temperature Source Pulse Rate 53 L 53 L 56 L Pulse Rate from SpO2 Sensor 53 L 53 L 52 L Respiratory Rate 13 15 16 Respiratory Effort / Characteristics Respiratory Depth Blood Pressure 151/78 H 148/81 H 126/95 Blood Pressure Mean 102 103 105 Pulse Oximetry 93 94 93 Oxygen Delivery Method Room Air Room Air Room Air Sepsis Recent Fever Within 48 Hours Sepsis New/Unexplained Change in Mental Status Sepsis Action Taken by Nursing 05/06/20 00:00 05/06/20 00:01 05/06/20 00:30 Temperature Temperature Source Pulse Rate 52 L 52 L 52 L Pulse Rate from SpO2 Sensor 52 L 52 L 52 L Respiratory Rate 12 12 13 Respiratory Effort / Characteristics Respiratory Depth Blood Pressure 146/72 H 139/74 Blood Pressure Mean 96 95 Pulse Oximetry 94 94 93 Oxygen Delivery Method Room Air Sepsis Recent Fever Within 48 Hours Sepsis New/Unexplained Change in Mental Status Sepsis Action Taken by Nursing 05/06/20 01:00 Temperature Temperature Source Pulse Rate 52 L Pulse Rate from SpO2 Sensor 52 L Respiratory Rate 15 Respiratory Effort / Characteristics Respiratory Depth Blood Pressure 145/79 H Blood Pressure Mean 101 Pulse Oximetry 92 Oxygen Delivery Method Room Air Sepsis Recent Fever Within 48 Hours Sepsis New/Unexplained Change in Mental Status Sepsis Action Taken by [place] Medications Current Medication List: was personally reviewed by me Laboratory Data Attestation: I reviewed the patient's lab results. Result diagrams: 05/05/20 19:29 05/06/20 15:09 Lab Results 05/05/20 05/05/20 05/05/20 Range/Units 19:29 19:29 19:29 WBC 5.74 (4.8-10.8) K/uL RBC 4.13 L (4.7-6.1) M/uL Hgb 12.8 L (14.0-18.0) g/dL Hct 38.6 L (42-52) % MCV 93.5 (80-100) fL MCH 31.0 (25-34) pg MCHC 33.2 (32-36) g/dL RDW Std Deviation 46.9 H (36.4-46.3) fL RDW Coeff of Curtis 13.7 (11.5-14.5) % Plt Count 270 (130-400) K/uL MPV 10.8 H (7.4-10.4) fL Immature Gran % (Auto) 0.2 % Neut % (Auto) 49.5 % Lymph % (Auto) 31.2 % [place] % (Auto) 15.0 % Eos % (Auto) 3.8 % Baso % (Auto) 0.3 % Neut # (Auto) 2.84 (1.4-6.5) K/uL Lymph # (Auto) 1.79 (1.2-3.4) K/uL [place] # (Auto) 0.86 H (0.11-0.59) K/uL Eos # (Auto) 0.22 (0-0.5) K/uL Baso # (Auto) 0.02 (0-0.2) K/uL Immature Gran # (Auto) 0.01 (0.00-0.02) K/uL PT 11.1 (9.0-12.0) Seconds INR 1.1 (0.9-1.1) APTT 28.7 (21.0-31.0) Seconds PTT Ratio 1.1 Sodium 139 (136-145) mmol/L Potassium 3.9 (3.5-5.1) mmol/L Chloride 106 (98-107) mmol/L Carbon Dioxide 30 (21-32) mmol/L Anion Gap 3.0 (3-11) BUN 19 H (7-18) mg/dl Creatinine 2.05 H (0.6-1.4) mg/dl Est Cr Clr Drug Dosing 27.9 ml/min Est GFR ( Amer) 34.2 Est GFR (Non-Af Amer) 29.5 BUN/Creatinine Ratio 9.5 L (10-20) Glucose 80 (70-99) mg/dl Calcium 8.9 (8.5-10.1) mg/dl Magnesium 2.3 (1.8-2.4) mg/dl Total Bilirubin 0.5 (0.2-1) mg/dl AST 10 L (15-37) U/L ALT 10 L (12-78) U/L Alkaline Phosphatase 94 (45-117) U/L Troponin I < 0.015 (0-0.045) ng/ml Total Protein 7.1 (6.4-8.2) gm/dl Albumin 3.1 L (3.4-5.0) gm/dl Globulin 4.0 (2.5-4.0) gm/dl Albumin/Globulin Ratio 0.8 L (0.9-2) TSH 25.300 H (0.300-4.500) uIu/ml Free T4 0.99 (0.8-1.6) ng/dl Urine Color Urine Appearance (Clear) Urine pH (4.5-7.5) Ur Specific [place] (1.000-1.030) Urine Protein (Negative) Urine Glucose (UA) (Negative) Urine Ketones (Negative) Urine Blood (Negative) Urine Nitrite (Negative) Urine Bilirubin (Negative) Urine Urobilinogen (Negative) Ur Leukocyte Esterase (Negative) Urine WBC (Auto) (0-5) /hpf Urine RBC (Auto) (0-4) /hpf U Hyaline Cast (Auto) (0-5) /lpf U Epithel Cells (Auto) (0-5) /lpf Urine Bacteria (Auto) (Negative) WBC Casts (0) /lpf Urine Yeast COVID-19 Eval Order SARS-CoV-2 (PCR) (Negative) Influenza Type A (PCR) (Neg) Influenza Type B (PCR) (Neg) RSV (RT-PCR) (Neg) 05/05/20 05/05/20 05/05/20 Range/Units 21:27 22:03 22:03 WBC (4.8-10.8) K/uL RBC (4.7-6.1) M/uL Hgb (14.0-18.0) g/dL Hct (42-52) % MCV (80-100) fL MCH (25-34) pg MCHC (32-36) g/dL RDW Std Deviation (36.4-46.3) fL RDW Coeff of Curtis (11.5-14.5) % Plt Count (130-400) K/uL MPV (7.4-10.4) fL Immature Gran % (Auto) % Neut % (Auto) % Lymph % (Auto) % [place] % (Auto) % Eos % (Auto) % Baso % (Auto) % Neut # (Auto) (1.4-6.5) K/uL Lymph # (Auto) (1.2-3.4) K/uL [place] # (Auto) (0.11-0.59) K/uL Eos # (Auto) (0-0.5) K/uL Baso # (Auto) (0-0.2) K/uL Immature Gran # (Auto) (0.00-0.02) K/uL PT (9.0-12.0) Seconds INR (0.9-1.1) APTT (21.0-31.0) Seconds PTT Ratio Sodium (136-145) mmol/L Potassium (3.5-5.1) mmol/L Chloride (98-107) mmol/L Carbon Dioxide (21-32) mmol/L Anion Gap (3-11) BUN (7-18) mg/dl Creatinine (0.6-1.4) mg/dl Est Cr Clr Drug Dosing ml/min Est GFR ( Amer) Est GFR (Non-Af Amer) BUN/Creatinine Ratio (10-20) Glucose (70-99) mg/dl Calcium (8.5-10.1) mg/dl Magnesium (1.8-2.4) mg/dl Total Bilirubin (0.2-1) mg/dl AST (15-37) U/L ALT (12-78) U/L Alkaline Phosphatase (45-117) U/L Troponin I (0-0.045) ng/ml Total Protein (6.4-8.2) gm/dl Albumin (3.4-5.0) gm/dl Globulin (2.5-4.0) gm/dl Albumin/Globulin Ratio (0.9-2) TSH (0.300-4.500) uIu/ml Free T4 (0.8-1.6) ng/dl Urine Color Dark Yellow Urine Appearance Turbid A (Clear) Urine pH 6.0 (4.5-7.5) Ur Specific [place] 1.017 (1.000-1.030) Urine Protein 3+ H (Negative) Urine Glucose (UA) Negative (Negative) Urine Ketones Trace H (Negative) Urine Blood 3+ H (Negative) Urine Nitrite Positive A (Negative) Urine Bilirubin Negative (Negative) Urine Urobilinogen Negative (Negative) Ur Leukocyte Esterase 3+ H (Negative) Urine WBC (Auto) >30 H (0-5) /hpf Urine RBC (Auto) 10-30 H (0-4) /hpf U Hyaline Cast (Auto) 10-30 H (0-5) /lpf U Epithel Cells (Auto) 20-30 H (0-5) /lpf Urine Bacteria (Auto) Negative (Negative) WBC Casts 1-5 H (0) /lpf Urine Yeast Not Reportable COVID-19 Eval Order CovFluRsv at [facility] SARS-CoV-2 (PCR) NEGATIVE (Negative) Influenza Type A (PCR) Negative (Neg) Influenza Type B (PCR) Negative (Neg) RSV (RT-PCR) Negative (Neg) Administered Medications Acetaminophen (Acetaminophen 325 Mg Tab) 650 mg PO Q4H PRN PRN Reason: Pain or Fever Stop: 06/05/20 03:07 Last Admin: 05/06/20 10:11 Dose: 650 mg Documented by: [id number] Apixaban (Apixaban 2.5 Mg Tab) 2.5 mg PO BID [facility] Stop: 06/05/20 10:44 Last Admin: 05/06/20 11:29 Dose: 2.5 mg Documented by: [id number] Bethanechol Chloride (Bethanechol Chl 25 Mg Tab) 50 mg PO QID [facility] Stop: 06/05/20 08:59 Last Admin: 05/06/20 17:04 Dose: 50 mg Documented by: [id number] Admin: 05/06/20 13:03 Dose: 50 mg Documented by: [id number] Admin: 05/06/20 07:21 Dose: 50 mg Documented by: [id number] Bupropion HCl (Bupropion Sr 100 Mg Tabcr) 100 mg PO QAM [facility] Stop: 06/05/20 08:59 Last Admin: 05/06/20 07:22 Dose: 100 mg Documented by: [id number] Carvedilol (Carvedilol 3.125 Mg Tab) 3.125 mg PO BID [facility] Stop: 06/05/20 08:59 Last Admin: 05/06/20 07:19 Dose: 3.125 mg Documented by: [id number] Citalopram Hydrobromide (Citalopram 20 Mg Tab) 10 mg PO [facility] Stop: 06/05/20 08:59 Last Admin: 05/06/20 07:18 Dose: 10 mg Documented by: [id number] Famotidine (Famotidine 40 Mg Tablet) 40 mg PO [facility] Stop: 06/05/20 08:59 Last Admin: 05/06/20 07:21 Dose: 40 mg Documented by: [id number] Ferrous Sulfate (Ferrous Sulfate 325 Mg Tab) 325 mg PO BIDM [facility] Stop: 06/05/20 07:59 Last Admin: 05/06/20 17:04 Dose: 325 mg Documented by: [id number] Admin: 05/06/20 07:18 Dose: 325 mg Documented by: [id number] Folic Acid (Folic Acid 1 Mg Tab) 1 mg PO [facility] Stop: 06/05/20 08:59 Last Admin: 05/06/20 07:20 Dose: 1 mg Documented by: [id number] Sodium Chloride (Nss 1000ml) 1,000 mls @ 80 mls/hr IV .[id number] [facility] Stop: 05/07/20 04:07 Last Admin: 05/06/20 15:12 Dose: 80 mls/hr Documented by: [id number] Infusion: 05/06/20 15:12 Dose: 80 mls/hr Documented by: [id number] Admin: 05/06/20 03:00 Dose: 80 mls/hr Documented by: [id number] Piperacillin Sod/Tazobactam (Sod 3.375 gm/ Dextrose) 115 mls @ 28.75 mls/hr IV Q8H [facility]; Protocol Stop: 05/16/20 14:59 Last Admin: 05/06/20 15:33 Dose: 28.8 mls/hr Documented by: [id number] Isosorbide Mononitrate (Isosorbide [place] Extended Rel 60 Mg Tabcr) 60 mg PO [facility] Stop: 06/05/20 08:59 Last Admin: 05/06/20 07:20 Dose: 60 mg Documented by: [id number] Memantine (Memantine Hcl 10 Mg Tab) 10 mg PO BID [facility] Stop: 06/05/20 08:59 Last Admin: 05/06/20 07:20 Dose: 10 mg Documented by: [id number] Tramadol HCl (Tramadol Hcl 50 Mg Tablet) 50 mg PO TID PRN PRN Reason: Moderate Pain Stop: 06/05/20 03:07 Last Admin: 05/06/20 07:22 Dose: 50 mg Documented by: [id number] Discontinued Medications Bisacodyl (Bisacodyl 10 Mg Supp) 10 mg NV NOW STA Stop: 05/06/20 03:09 Last Admin: 05/06/20 05:21 Dose: Not Given Documented by: [id number] Sodium Chloride (Nss) 500 mls @ 999 mls/hr IV .Q31M [facility] Stop: 05/05/20 21:30 Last Infusion: 05/05/20 22:00 Dose: 0 mls/hr Documented by: [id number] Admin: 05/05/20 21:21 Dose: 999 mls/hr Documented by: [id number] Piperacillin Sod/Tazobactam Sod (Zosyn) 4.5 gm in 120 mls @ 240 mls/hr IV NOW ONE Stop: 05/06/20 00:42 Last Infusion: 05/06/20 10:05 Dose: 240 mls/hr Documented by: [id number] Infusion: 05/06/20 01:11 Dose: 0 mls/hr Documented by: [id number] Admin: 05/06/20 00:22 Dose: 240 mls/hr Documented by: [id number] Piperacillin Sod/Tazobactam (Sod 3.375 gm/ Dextrose) 115 mls @ 230 mls/hr IV NOW ONE; Protocol Stop: 05/06/20 09:14 Last Infusion: 05/06/20 10:50 Dose: 230 mls/hr Documented by: [id number] Admin: 05/06/20 09:11 Dose: 230 mls/hr Documented by: [id number] Tigecycline 100 mg/ Dextrose 110 mls @ 200 mls/hr IV NOW ONE Stop: 05/06/20 13:02 Last Infusion: 05/06/20 14:10 Dose: 200 mls/hr Documented by: [id number] Admin: 05/06/20 13:03 Dose: 200 mls/hr Documented by: [id number] Levothyroxine Sodium (Levothyroxine Sodium 100 Mcg Tablet) 100 mcg PO DAILYBB FLEX Stop: 06/05/20 06:29 Last Admin: 05/06/20 06:13 Dose: 100 mcg Documented by: [id number] Sodium Biphosphate/Sodium Phosphate (Sod Phosphate/Sod Biphosphate Enema 132 Ml Btl) 132 ml NV NOW STA Stop: 05/06/20 10:13 Last Admin: 05/06/20 11:58 Dose: Not Given Documented by: [id number] Discharge Plan Visit Data Chief Complaint: Illness Stated Complaint: AMS, CATH ISSUES ED Provider: Ceferino Harvey Discharge Problem: Acute UTI, Weakness, Cough Patient Disposition: Admitted As Inpatient Discharge Instructions Interventions: ED Discharge Assessment Last Done: 05/06/20 02:35
[2020-05-05 20:38] LABS: Basophils # (auto) 0.02 K/uL (0-0.2); Basophils % (auto) 0.3 %; Eosinophils # (auto) 0.22 K/uL (0-0.5); Eosinophils % (auto) 3.8 %; Hematocrit (blood only) 38.6 % (42-52); Hemoglobin 12.8 g/dL (14.0-18.0); Immature Granulocytes # (auto) 0.01 K/uL (0.00-0.02); Immature Granulocytes % (auto) 0.2 %; Lymphocytes # (auto) 1.79 K/uL (1.2-3.4); Lymphocytes % (auto) 31.2 %; Mean Corpuscular Hgb Conc 33.2 g/dL (32-36); Mean Corpuscular Volume 93.5 fL (80-100); Mean Platelet Volume 10.8 fL (7.4-10.4); Monocytes # (auto) 0.86 K/uL (0.11-0.59); Neutrophils # (auto) 2.84 K/uL (1.4-6.5); Neutrophils % (auto) 49.5 %; Platelet Count 270 K/uL (130-400); RDW Coefficient of Variation 13.7 % (11.5-14.5); RDW Standard Deviation 46.9 fL (36.4-46.3); Red Blood Count 4.13 M/uL (4.7-6.1); White Blood Count 5.74 K/uL (4.8-10.8)
[2020-05-05 20:44] LABS: Alanine Aminotransferase 10 U/L (12-78); Albumin Level 3.1 gm/dl (3.4-5.0); Aspartate Aminotransferase 10 U/L (15-37); BUN Creatinine Ratio 9.5 (10-20); Blood Urea Nitrogen 19 mg/dl (7-18); Calcium 8.9 mg/dl (8.5-10.1); Carbon Dioxide 30 mmol/L (21-32); Chloride 106 mmol/L (98-107); Creatinine Clr Calc Pharmacy 27.9 ml/min; Est GFR (African American) 34.2; Est GFR (Non-African American) 29.5; Glucose 80 mg/dl (70-99); Potassium 3.9 mmol/L (3.5-5.1); Sodium 139 mmol/L (136-145)
[2020-05-05 20:47] LABS: Albumin Globulin Ratio 0.8 (0.9-2); Alkaline Phosphatase 94 U/L (45-117); Bilirubin,Total 0.5 mg/dl (0.2-1); Total Protein 7.1 gm/dl (6.4-8.2)
[2020-05-05 20:53] LABS: INR 1.1 (0.9-1.1); Partial Thromboplastin Ratio 1.1; Partial Thromboplastin Time 28.7 Seconds (21.0-31.0); Prothrombin Time 11.1 Seconds (9.0-12.0)
[2020-05-05] MEDS ORDERED: SODIUM CHLORIDE 0.9% 500 ML IV SCH (21:00)
[2020-05-05 21:08] LABS: Magnesium 2.3 mg/dl (1.8-2.4)
[2020-05-05 21:25] LABS: Troponin I < 0.015 ng/ml (0-0.045)
[2020-05-05 21:38] LABS: T4 Free Thyroxine 0.99 ng/dl (0.8-1.6)
[2020-05-05 21:40] LABS: Appearance Urine Turbid (Clear); Bacteria Urine Automated Negative (Negative); Bilirubin Urine Negative (Negative); Blood Urine 3+ (Negative); Color Urine Dark Yellow; Epithelial Cell Urine Auto 20-30 /lpf (0-5); Glucose Urine UA Negative (Negative); Ketones Urine Trace (Negative); Leukocyte Esterase Urine 3+ (Negative); Nitrite Urine Positive (Negative); Protein Urine 3+ (Negative); Specific Gravity Urine 1.017 (1.000-1.030); Urobilinogen Urine Negative (Negative); WBC Urine Automated >30 /hpf (0-5)
[2020-05-05 23:17] LABS: Influenza A virus by PCR Negative (Neg); Influenza B virus by PCR Negative (Neg); RSV by PCR Negative (Neg); SARS CoV2 RNA(COVID-19) InHosp NEGATIVE (Negative)
[2020-05-06] MEDS ORDERED: PIPERACILL/TAZOBAC CONSULT ACTIVE PRN ×2 (00:13→03:08)
[2020-05-06] MEDS ORDERED: PIPERACILLIN/TAZOBACTAM 4.5 GM/120 ML BAG IV ONE (00:13)
--- NOTE | 2020-05-06 01:27 | History & Physical Report ---
Date of Service May 06, 2020 Assessment & Plan (1) Recurrent UTI: previous organisms includingRecurrent urinary tract infection/recent suprapubic catheter placement/history complicated UTI/bilateral ureteral stents- Placed on NSS at 80 mils per hour Follow urine culture and sensitivities Zosyn 4.5 g IV every 8 hours, to be renally adjusted, to cover previous organisms including Stenotrophomonas maltophilia, Enterococcus faecalis and E. coli. Continue fluconazole for Monalisa albicans UTI Present on Admission?: Yes (2) Complicated UTI (urinary tract infection): See above Present on Admission?: Yes (3) Presence of suprapubic catheter: See above Consult Dr. Medrano, urology Present on Admission?: Yes (4) Hypothyroidism: Continue levothyroxine sodium 100 mcg daily Present on Admission?: Yes (5) Anxiety and depression: Anxiety and depression/dementia- Continue bupropion, citalopram, donepezil, and memantine Present on Admission?: Yes (6) CAD (coronary artery disease), [place] coronary artery: CAD/hypertension/atrial fibrillation- Continue apixaban, carvedilol, and isosorbide mononitrate Present on Admission?: Yes (7) HTN (hypertension), benign: See above Present on Admission?: Yes (8) Stage 3b chronic kidney disease: Creatinine 3.05, with range 1.70-2.04. Follow serially with labs in the a.m. Present on Admission?: Yes (9) Dyslipidemia: Continue simvastatin 80 mg at bedtime Present on Admission?: Yes (10) GERD (gastroesophageal reflux disease): Continue famotidine Present on Admission?: Yes (11) S/P ureteral stent placement: See above Present on Admission?: Yes (12) Atrial fibrillation: See above Present on Admission?: Yes (13) Chronic constipation: Fecal retention with distention 9 cm similar to previous. Placing on IV fluids as noted above. Dulcolax suppository now, and daily as needed Present on Admission?: Yes History of Present Illness Chief Complaint: The patient presents to the emergency department with complaint of generalized weakness, suprapubic pain associated with recent catheter placement, change in urine color, and constipation with no BM in several days Primary Care Provider: Celina Saunders, DO The patient is an 80-year-old male with a past medical history including CKD stage IIIb, hydronephrosis, bilateral renal masses, CHANELLE, recurrent UTI, complicated UTI, recent placement of suprapubic catheter, acute blood loss anemia, bilateral ureteral stent placement, long-term anticoagulation use, dementia, history of gastric ulcer, aortic stenosis, hypothyroidism, GERD, atrial fibrillation, anxiety and depression, dyslipidemia, history of OH, cardiac pacemaker in situ, hypertension and CAD. Patient reports had a suprapubic catheter placed on 04/30/2020, and presents with signs and symptoms as noted above. Allergies Allergy/AdvReac Type Severity Reaction Status Date / Time captopril Allergy Severe ANAPHYLAXIS Verified 05/05/20 21:21 Iodinated Contrast Media Allergy Severe ANAPHYLAXIS Verified 05/05/20 21:21 levofloxacin Allergy Severe ANAPHYLAXIS Verified 05/05/20 21:22 morphine Allergy Severe Anaphylaxis Verified 05/05/20 21: oxaprozin Allergy Severe ANAPHYLAXIS Verified 05/05/20 21:22 Sulfa (Sulfonamide Allergy Severe Anaphylaxis Verified 05/05/20 21:22 Antibiotics) torsemide Allergy Severe ANAPHYLAXIS Verified 05/05/20 21:21 hydrocodone Allergy Mild RASH Verified 05/05/20 21:22 Home Medications Medication Instructions Recorded Confirmed Type epinephrine [EpiPen] 0.3 mg IM UD PRN 06/05/18 05/05/20 History acetaminophen 650 mg PO Q4H PRN #30 tab 08/14/19 05/05/20 Rx carvedilol 3.125 mg tablet 3.125 mg PO BID #180 tab 10/04/19 05/05/20 Rx ferrous sulfate 325 mg (65 mg 325 mg PO BIDM #180 tab 10/04/19 05/05/20 Rx iron) tablet,delayed release folic acid 1 mg tablet 1 mg PO QAM #90 tab 10/04/19 05/05/20 Rx levothyroxine 100 mcg tablet 100 mcg PO HS #90 tab 10/04/19 05/05/20 Rx simvastatin 80 mg tablet 80 mg PO HS #90 tab 10/04/19 05/05/20 Rx tamsulosin 0.4 mg capsule 0.4 mg PO QPM #90 cap 10/04/19 05/05/20 Rx gabapentin 300 mg capsule 300 mg PO HS #90 cap 11/03/19 05/05/20 Rx bethanechol chloride 50 mg PO QID 12/24/19 05/05/20 History donepezil 10 mg tablet 10 mg PO HS #90 tab 02/06/20 05/05/20 Rx memantine 10 mg tablet 10 mg PO BID #180 tab 02/06/20 05/05/20 Rx bupropion HCl 100 mg PO QAM 04/13/20 05/05/20 History citalopram 10 mg PO QAM 04/13/20 05/05/20 History famotidine [Pepcid] 40 mg PO QAM 04/13/20 05/05/20 History fluconazole 100 mg PO QAM 04/13/20 05/05/20 History apixaban 2.5 mg tablet 2.5 mg PO BID #180 tab 04/20/20 05/05/20 Rx trimethoprim 100 mg tablet 100 mg PO Q12H 10 Days #20 tab 04/26/20 05/05/20 Rx isosorbide mononitrate 60 mg 60 mg PO QAM #90 tab 04/30/20 05/05/20 Rx tablet,extended release 24 hr oxybutynin chloride 5 mg PO Q8H PRN #14 tab 04/30/20 05/05/20 Rx phenazopyridine [Pyridium] 200 mg PO Q8H PRN #10 tab 04/30/20 05/05/20 Rx tramadol 50 mg PO TID PRN 05/05/20 05/05/20 History Past Med/Surg History Medical History Anxiety and depression Aortic stenosis Mild (MG 11 mmHg, UZMA 1.1 cm2) per 11/2015 ECHO. Valve not well visualized on echo 03/22/20. Atrial fibrillation dx 2017 >on Eliquis, no cardioversions BPH w urinary obs/LUTS CAD (coronary artery disease), [place] coronary artery S/P BMS to OM (1997). Caths also 2006, 2008 and 2013, no stents placed. Most recent cath in 2013 showed no angiographically significant stenosis other than 20-30% in-stent restenosis of OM. Cardiac pacemaker in situ Implanted 2008 (03/[address] [facility]. Replaced 2016. > Last pacer check 04/10/20 [facility] > Dr. Hodge Chronic indwelling Michel catheter Chronic pain CKD (chronic kidney disease) stage 3, GFR 30-59 ml/min Dementia Dyslipidemia GERD (gastroesophageal reflux disease) controlled History of kidney stones History of OH (myocardial infarction) 1997 HTN (hypertension), benign Hx of gastric ulcer Hypothyroidism Iron deficiency anemia Low blood pressure pt's reports this has been happening lately, last reading was 92/65 at cardiology visit on 04/10/20. Cardiology notes 'clinically stable.' Sleep apnea NO DEVICE Stage 3b chronic kidney disease Surgical History H/O total knee replacement RIGHT/LEFT History of cardiac cath MULTIPLE WITH TOTAL 4 STENTS > LAST ONE 3 YRS AGO > PH DEBBIE History of cataract surgery B/L History of colonoscopy History of lithotripsy History of lumbar fusion History of prostate surgery PARTIAL PROSTECTOMY History of thyroidectomy History of tooth extraction all teeth S/P cystoscopy with ureteral stent placement 12/29/19 Dr. William Medrano- Cystoscopy, Bilateral retrograde pyelogram, Bilateral ureteral stent exchange, Left aspiration and culture S/P TURP S/P ureteral stent placement Cysto, B/L RPG, right ureteroscopy, stent exchange: 07/06/18: LMA#5 at [facility] CYSTO STENT EXCHANGE 11/2018 Family History Father Diabetes Mother Coronary heart disease Hypertension Brother Seizure Denies family history of Ovarian cancer Prostate cancer Myocardial infarction Breast cancer Colorectal cancer Social History Smoking Status: Former smoker Tobacco Type: Cigarettes Smoking End Date: ; Second Hand Exposure: No; Hx Alcohol Use: No Hx Substance Use: No Preferred Language: [place] Communication Ability: dementia Visual Impairment: No Limitations Desktop Support Consultant Required: No Beliefs That Will Affect Care: None marital status: Current Living Situation: Spouse and Family Current Living Situation Comment: per RN report from ER, pt lives with and daughter current occupational status: retired How many Children do You have: 3 Other Information That Helps Us Care for You: No Feels Safe at Home: Yes Safety Concerns: Feels Safe At This Time Childhood Exposure to Second-Hand Smoke: No caffeine: Yes (Coffee 3 per day.) during the past year weight has: remained stable Dental Care, Regularly: No Physical Activity Frequency: Does not Exercise Seatbelt Use: always Sunscreen Use: No Assistive Devices: Walker Review of Systems Review of Systems: The patient denies chest pain, palpitations, shortness of breath, dyspnea on exertion, cough, lower extremity swelling, sore throat, chills, sweats, nausea, vomiting, blood in urine or stool, dysuria, urinary frequency or urgency, lightheadedness, dizziness, headache, loss of consciousness, rash, imbalance, focal weakness, numbness or tingling in arms or legs, back or neck pain, or night sweats. The review of systems is otherwise negative other than for that already noted above, and at least 10 systems have been reviewed. Physical Exam Physical Exam: The patient is awake, alert and oriented 3, normocephalic and atraumatic, lying in bed and in no acute distress. HEENT--PERRL, EOMI, mucous membranes and oropharynx dry. Neck--supple. No JVD. No bruits. Thyroid normal, trachea midline, no adenopathy. Heart--normal S1 and S2. No murmurs, rubs or gallops. Lungs--clear bilaterally, no respiratory distress, no accessory muscle use. Abdomen--normal bowel sounds and soft. Suprapubic tenderness. Nondistended, no hernias or masses, no organomegaly. Extremities--no cyanosis or clubbing. No edema. Dermatologic--normal skin turgor, normal color, no abnormal lymph nodes, no rash. Neurologic--cranial nerves II through XII grossly intact. Rheumatologic--limited exam Psychiatric--normal affect. Results & Data Results & Data ([facility]) Vital Signs (Past 12 Hours) Vital Signs Temp Pulse Resp BP Pulse Ox 05/06/20 01:00 52 L 15 145/79 H 92 05/06/20 00:30 52 L 13 139/74 93 05/06/20 00:01 52 L 12 146/72 H 94 05/06/20 00:00 52 L 12 94 05/05/20 23:30 56 L 16 126/95 93 05/05/20 23:00 53 L 15 148/81 H 94 05/05/20 22:30 53 L 13 151/78 H 93 05/05/20 22:00 52 L 17 151/74 H 93 05/05/20 21:30 53 L 17 141/77 H 92 05/05/20 21:00 57 L 18 133/77 91 05/05/20 20:30 57 L 18 122/75 90 05/05/20 20:14 97.7 F 63 18 119/80 94 Laboratory Results Laboratory Results WBC 5.74 K/uL (4.8-10.8) 05/05/20 19: RBC 4.13 M/uL (4.7-6.1) L 05/05/20 19: Hgb 12.8 g/dL (14.0-18.0) L 05/05/20 19: Hct 38.6 % (42-52) L 05/05/20 19: MCV 93.5 fL (80-100) 05/05/20 19: MCH 31.0 pg (25-34) 05/05/20 19: MCHC 33.2 g/dL (32-36) 05/05/20 19: RDW Std Deviation 46.9 fL (36.4-46.3) H 05/05/20: RDW Coeff of Curtis 13.7 % (11.5-14.5) 05/05/20: Plt Count 270 K/uL (130-400) 05/05/20 19: MPV 10.8 fL (7.4-10.4) H 05/05/20: Immature Gran % (Auto) 0.2 % 05/05/20 19: Neut % (Auto) 49.5 % 05/05/20: Lymph % (Auto) 31.2 % 05/05/20: [place] % (Auto) 15.0 % 05/05/20 19: Eos % (Auto) 3.8 % 05/05/20 19: Baso % (Auto) 0.3 % 05/05/20: Neut # (Auto) 2.84 K/uL (1.4-6.5) 05/05/20: Lymph # (Auto) 1.79 K/uL (1.2-3.4) 05/05/20 19: [place] # (Auto) 0.86 K/uL (0.11-0.59) H 05/05/20: Eos # (Auto) 0.22 K/uL (0-0.5) 05/05/20 19:29 Baso # (Auto) 0.02 K/uL (0-0.2) 05/05/20 19:29 Immature Gran # (Auto) 0.01 K/uL (0.00-0.02) 05/05/20 19: PT 11.1 Seconds (9.0-12.0) 05/05/20 19: INR 1.1 (0.9-1.1) 05/05/20 19: APTT 28.7 Seconds (21.0-31.0) 05/05/20 19: PTT Ratio 1.1 05/05/20 19: Sodium 139 mmol/L (136-145) 05/05/20 19: Potassium 3.9 mmol/L (3.5-5.1) 05/05/20 19: Chloride 106 mmol/L (98-107) 05/05/20 19: Carbon Dioxide 30 mmol/L (21-32) 05/05/20 19: Anion Gap 3.0 (3-11) 05/05/20 19:29 BUN 19 mg/dl (7-18) H 05/05/20 19: Creatinine 2.05 mg/dl (0.6-1.4) H 05/05/20 19:29 Est Cr Clr Drug Dosing 27.9 ml/min 05/05/20 19:29 Est GFR ( Amer) 34.2 05/05/20 19:29 Est GFR (Non-Af Amer) 29.5 05/05/20 19:29 BUN/Creatinine Ratio 9.5 (10-20) L 05/05/20 19: Glucose 80 mg/dl (70-99) 05/05/20 19: Calcium 8.9 mg/dl (8.5-10.1) 05/05/20 19: Magnesium 2.3 mg/dl (1.8-2.4) 05/05/20 19: Total Bilirubin 0.5 mg/dl (0.2-1) 05/05/20 19:29 AST 10 U/L (15-37) L 05/05/20 19:29 ALT 10 U/L (12-78) L 05/05/20 19:29 Alkaline Phosphatase 94 U/L (45-117) 05/05/20 19:29 Troponin I < 0.015 ng/ml (0-0.045) 05/05/20 19: Total Protein 7.1 gm/dl (6.4-8.2) 05/05/20 19: Albumin 3.1 gm/dl (3.4-5.0) L 05/05/20 19: Globulin 4.0 gm/dl (2.5-4.0) 05/05/20 19: Albumin/Globulin Ratio 0.8 (0.9-2) L 05/05/20 19: TSH 25.300 uIu/ml (0.300-4.500) H 05/05/20 19: Free T4 0.99 ng/dl (0.8-1.6) 05/05/20 19: Urine Color Dark Yellow 05/05/20 21: Urine Appearance Turbid (Clear) A 05/05/20 21: Urine pH 6.0 (4.5-7.5) 05/05/20 21: Ur Specific [place] 1.017 (1.000-1.030) 05/05/20 21: Urine Protein 3+ (Negative) H 05/05/20 21: Urine Glucose (UA) Negative (Negative) 05/05/20 21: Urine Ketones Trace (Negative) H 05/05/20 21: Urine Blood 3+ (Negative) H 05/05/20 21: Urine Nitrite Positive (Negative) A 05/05/20: Urine Bilirubin Negative (Negative) 05/05/20: Urine Urobilinogen Negative (Negative) 05/05/20 21: Ur Leukocyte Esterase 3+ (Negative) H 05/05/20 21: Urine WBC (Auto) >30 /hpf (0-5) H 05/05/20 21: Urine RBC (Auto) 10-30 /hpf (0-4) H 05/05/20 21: U Hyaline Cast (Auto) 10-30 /lpf (0-5) H 05/05/20 21: U Epithel Cells (Auto) 20-30 /lpf (0-5) H 05/05/20 21: Urine Bacteria (Auto) Negative (Negative) 05/05/20 21: WBC Casts 1-5 /lpf (0) H 03/27/21 21:27 Urine Yeast Not Reportable 05/05/20 21:27 COVID-19 Eval Order CovFluRsv at [facility] 05/05/20 22:03 SARS-CoV-2 (PCR) NEGATIVE (Negative) 05/05/20 22:03 Influenza Type A (PCR) Negative (Neg) 05/05/20 22:03 Influenza Type B (PCR) Negative (Neg) 05/05/20 22:03 RSV (RT-PCR) Negative (Neg) 05/05/20 22:03 Diagnostic Findings [facility] Patient: HAYES KING (Male) : 38 Status: ER Date: 05/05/20 22:02 Room #: History: SUPRAPUBIC CATHETIC RECENTLY PLACED LOWER ABDOMINAL PAIN, PAIN IN CATHETIC REGION APPENDIX PRESENT PER PT EK/AW Slices: [id number] Priors: Tech: Santy Parr @ [phone] Exams: CT ABDOMEN & PELVIS Without Contrast Contrast: Accession Numbers: [id number] Preliminary Findings Only See Final Report For Complete Findings CT ABDOMEN & PELVIS Without Contrast: Comparison to November 25, 2019. There is fecal impaction of the rectum measuring 9 cm in diameter and again constipation. Previous cholecystectomy. No biliary duct dilation is seen. The liver, pancreas, spleen, and adrenal glands are unremarkable. There are bilateral ureteral stents in place with mild atrophy of both kidneys. There are several large cysts involving the left kidney measuring up to 5.5 cm, similar to previous. These appear similar to previous. The urinary bladder is partially decompressed with a suprapubic catheter. There is a small amount of gas in the urinary bladder no surrounding inflammation. There is a penile implant. Previous fusion and laminectomy of L4-5. There are mild to moderate degenerative changes throughout the spine. No acute fracture or subluxation. Radiologist: Cyrus Martinez MD Study ready at 22:09 and initial results transmitted at 22:21 *This report constitutes a preliminary interpretation only. Non-acute findings felt to be unrelated to the clinical presentation may not be discussed in this report. The study will be interpreted and a final report will be generated by the local Radiologist the following shift. To reach the hospital radiology department call [phone]. If a discrepancy is found between the preliminary and final interpretations of this study, please notify us via our Client Portal at [email or web address] under QA Exams.You can also fax this report with a description of the discrepancy, or include the final report, to our daytime fax number [phone].If faxing, please indicate the severity of discrepancy using one of the following categories: [ ] 1 - Agree/Informational [ ] 2 - Unlikely to Affect Management [ ] 3 - Possible Eventual Change of Management [ ] 4 - Probable Immediate Change of Management For all other patient related information, please fax us at [phone]. [id number] Code Status & VTE Plan Code Status Full code VTE Prophylaxis Plan VTE Prophylaxis will be ordered: Yes PG Care Time/CCT Total # of Minutes Spent Total Time Spent with Patient: Total time spent is greater than 50% in coordination of care (as documented) at patient's floor/unit and/or counseling patient: Coding Level of Care Code 00903 Initial Inpt Care Lvl 3 Diagnoses Recurrent UTI N39.0 Complicated UTI (urinary tract infection) N39.0 Presence of suprapubic catheter Z93.59 Hypothyroidism E03.9 Hypothyroidism type: acquired Anxiety and depression F41.9; F32.9 CAD (coronary artery disease), [place] coronary artery I25.10 Associated angina: without angina [place] vs. transplanted heart: [place] heart HTN (hypertension), benign I10 Stage 3b chronic kidney disease N18.32 Dyslipidemia E78.5 GERD (gastroesophageal reflux disease) K21.9 Esophagitis presence: esophagitis presence not specified S/P ureteral stent placement Z96.0 Atrial fibrillation I48.91 Atrial fibrillation type: unspecified Chronic constipation K59.09 (1) Hypothyroidism Hypothyroidism type: acquired Qualified Code(s): E03.9 - Hypothyroidism, unspecified (2) CAD (coronary artery disease), [place] coronary artery Associated angina: without angina [place] vs. transplanted heart: [place] heart Qualified Code(s): I25.10 - Atherosclerotic heart disease of [place] coronary artery without angina pectoris (3) GERD (gastroesophageal reflux disease) Esophagitis presence: esophagitis presence not specified Qualified Code(s): K21.9 - Gastro-esophageal reflux disease without esophagitis (4) Atrial fibrillation Atrial fibrillation type: unspecified Qualified Code(s): I48.91 - Unspecified atrial fibrillation
[2020-05-06] MEDS: SODIUM CHLORIDE 0.9% 1000ML 1,000 ML IV SCH ×2 (03:00→15:12)
[2020-05-06] MEDS ORDERED: OXYBUTYNIN CHLORIDE 5 MG TAB PO PRN (03:08)
[2020-05-06] MEDS ORDERED: bisacodyL 10 MG SUPP PR PRN (03:08)
[2020-05-06] MEDS ORDERED: ONDANSETRON INJ 2 MG/ML 2 ML VIAL IV PRN (03:08)
[2020-05-06] MEDS ORDERED: ACETAMINOPHEN 325 MG TAB PO PRN (03:08)
[2020-05-06] MEDS ORDERED: bisacodyL 10 MG SUPP PR STA (03:08)
[2020-05-06] MEDS ORDERED: LEVOTHYROXINE SODIUM 100 MCG TABLET PO SCH (06:30)
[2020-05-06] MEDS: CITALOPRAM 20 MG TAB PO SCH (07:18)
[2020-05-06] MEDS: FERROUS SULFATE 325 MG TAB PO SCH ×2 (07:18→17:04)
[2020-05-06] MEDS: carvediloL 3.125 MG TAB PO SCH ×3 (07:19→23:19)
[2020-05-06] MEDS: MEMANTINE HCL 10 MG TAB PO SCH ×2 (07:20→20:29)
[2020-05-06] MEDS: ISOSORBIDE MONO EXTENDED REL 60 MG TABCR PO SCH (07:20)
[2020-05-06] MEDS: FOLIC ACID 1 MG TAB PO SCH (07:20)
[2020-05-06] MEDS: BETHANECHOL CHL 25 MG TAB PO SCH ×4 (07:21→20:30)
[2020-05-06] MEDS: FAMOTIDINE 40 MG TABLET PO SCH (07:21)
[2020-05-06] MEDS: buPROPion SR 100 MG TABCR PO SCH (07:22)
[2020-05-06] MEDS: traMADol HCL 50 MG TABLET PO PRN ×2 (07:22→23:18)
[2020-05-06] MEDS ORDERED: PIPERACILLIN/TAZOBACTAM 4.5 GM in DEXTROSE 5% 100 ML IV SCH (08:00)
--- NOTE | 2020-05-06 08:31 | Urology Consultation ---
Date of Consultation May 06, 2020 Assessment & Plan (1) Hydronephrosis: (2) Bilateral renal masses: (3) Recurrent UTI: Tubes in appropriate positions Plan for antibiotic coverage as laid out by primary team Very focal pain in the right or inguinal regionuncertain this is directly related to surgery but I wonder if this is a reactive lymph node causing the discomfort His SP site is healthy, his urine is clear There is no indication for any interventions but the continued supportive care that already has been started is appropriate History of Present Illness Attending Physician: Maryan Cook MD History of Present Illness 80-year-old quite comorbid individual with chronic issues including bilateral ureteral stents and recent suprapubic tube placement He has had recurrent infections with a variety of organisms including Enterococcus and Monalisa albicans He presented to the emergency room overnight with symptoms mimicking prior infectious episodes -but with a new complaint of a right inguinal pain He has been afebrile since arrival, moderately hypertensive CT on arrival shows bilateral ureteral stents to be in good position, suprapubic tube appropriately positioned within the bladder with an expected amount of air within the bladder Creatinine 2.05essentially at baseline No leukocytosis Cultures pending Allergies Allergy/AdvReac Type Severity Reaction Status Date / Time captopril Allergy Severe ANAPHYLAXIS Verified 05/05/20 21:21 Iodinated Contrast Media Allergy Severe ANAPHYLAXIS Verified 05/05/20 21:21 levofloxacin Allergy Severe ANAPHYLAXIS Verified 05/05/20 21:22 morphine Allergy Severe Anaphylaxis Verified 05/05/20 21:21 oxaprozin Allergy Severe ANAPHYLAXIS Verified 05/05/20 21:22 Sulfa (Sulfonamide Allergy Severe Anaphylaxis Verified 05/05/20 21:22 Antibiotics) torsemide Allergy Severe ANAPHYLAXIS Verified 05/05/20 21:21 hydrocodone Allergy Mild RASH Verified 05/05/20 21:22 Home Medications Medication Instructions Recorded Confirmed Type epinephrine [EpiPen] 0.3 mg IM UD PRN 06/05/18 05/05/20 History acetaminophen 650 mg PO Q4H PRN #30 tab 08/14/19 05/05/20 Rx carvedilol 3.125 mg tablet 3.125 mg PO BID #180 tab 10/04/19 05/05/20 Rx ferrous sulfate 325 mg (65 mg 325 mg PO BIDM #180 tab 10/04/19 05/05/20 Rx iron) tablet,delayed release folic acid 1 mg tablet 1 mg PO QAM #90 tab 10/04/19 05/05/20 Rx levothyroxine 100 mcg tablet 100 mcg PO HS #90 tab 10/04/19 05/05/20 Rx simvastatin 80 mg tablet 80 mg PO HS #90 tab 10/04/19 05/05/20 Rx tamsulosin 0.4 mg capsule 0.4 mg PO QPM #90 cap 10/04/19 05/05/20 Rx gabapentin 300 mg capsule 300 mg PO HS #90 cap 11/03/19 05/05/20 Rx bethanechol chloride 50 mg PO QID 12/24/19 05/05/20 History donepezil 10 mg tablet 10 mg PO HS #90 tab 02/06/20 05/05/20 Rx memantine 10 mg tablet 10 mg PO BID #180 tab 02/06/20 05/05/20 Rx bupropion HCl 100 mg PO QAM 04/13/20 05/05/20 History citalopram 10 mg PO QAM 04/13/20 05/05/20 History famotidine [Pepcid] 40 mg PO QAM 04/13/20 05/05/20 History fluconazole 100 mg PO QAM 04/13/20 05/05/20 History apixaban 2.5 mg tablet 2.5 mg PO BID #180 tab 04/20/20 05/05/20 Rx trimethoprim 100 mg tablet 100 mg PO Q12H 10 Days #20 tab 04/26/20 05/05/20 Rx isosorbide mononitrate 60 mg 60 mg PO QAM #90 tab 04/30/20 05/05/20 Rx tablet,extended release 24 hr oxybutynin chloride 5 mg PO Q8H PRN #14 tab 04/30/20 05/05/20 Rx phenazopyridine [Pyridium] 200 mg PO Q8H PRN #10 tab 04/30/20 05/05/20 Rx tramadol 50 mg PO TID PRN 05/05/20 05/05/20 History Patient History Medical History Anxiety and depression Aortic stenosis Mild (MG 11 mmHg, UZMA 1.1 cm2) per 11/2015 ECHO. Valve not well visualized on echo 03/22/20. Atrial fibrillation dx 2017 >on Eliquis, no cardioversions BPH w urinary obs/LUTS CAD (coronary artery disease), [place] coronary artery S/P BMS to OM (1997). Caths also 2006, 2008 and 2013, no stents placed. Most recent cath in 2013 showed no angiographically significant stenosis other than 20-30% in-stent restenosis of OM. Cardiac pacemaker in situ Implanted 2008 (03/[address] [facility]. Replaced 2016. > Last pacer check 04/10/20 [facility] > Dr. Hodge Chronic indwelling Michel catheter Chronic pain CKD (chronic kidney disease) stage 3, GFR 30-59 ml/min Dementia Dyslipidemia GERD (gastroesophageal reflux disease) controlled History of kidney stones History of PA (myocardial infarction) 1997 HTN (hypertension), benign Hx of gastric ulcer Hypothyroidism Iron deficiency anemia Low blood pressure pt's reports this has been happening lately, last reading was 92/65 at cardiology visit on 04/10/20. Cardiology notes 'clinically stable.' Sleep apnea NO DEVICE Stage 3b chronic kidney disease Surgical History H/O total knee replacement RIGHT/LEFT History of cardiac cath MULTIPLE WITH TOTAL 4 STENTS > LAST ONE 3 YRS AGO > [facility] History of cataract surgery B/L History of colonoscopy History of lithotripsy History of lumbar fusion History of prostate surgery PARTIAL PROSTECTOMY History of thyroidectomy History of tooth extraction all teeth S/P cystoscopy with ureteral stent placement 12/29/19 Dr. William Medrano- Cystoscopy, Bilateral retrograde pyelogram, Bilateral ureteral stent exchange, Left aspiration and culture S/P TURP S/P ureteral stent placement Cysto, B/L RPG, right ureteroscopy, stent exchange: 07/06/18: LMA#5 at [facility] CYSTO STENT EXCHANGE 11/2018 Family History Father Diabetes Mother Coronary heart disease Hypertension Brother Seizure Denies family history of Ovarian cancer Prostate cancer Myocardial infarction Breast cancer Colorectal cancer Social History Smoking Status: Former smoker Tobacco Type: Cigarettes Smoking End Date: ; Second Hand Exposure: No; Hx Alcohol Use: No Hx Substance Use: No Preferred Language: [place] Communication Ability: dementia Visual Impairment: No 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 [employer]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 Beliefs That Will Affect Care: None marital status: Current Living Situation: Spouse and Family Current Living Situation Comment: per RN report from ER, pt lives with and daughter current occupational status: retired How many Children do You have: 3 Other Information That Helps Us Care for You: No Feels Safe at Home: Yes Safety Concerns: Feels Safe At This Time Childhood Exposure to Second-Hand Smoke: No caffeine: Yes (Coffee 3 per day.) during the past year weight has: remained stable Dental Care, Regularly: No Physical Activity Frequency: Does not Exercise Seatbelt Use: always Sunscreen Use: No Assistive Devices: Walker Review of Systems Constitutional: + fever, + chills and + fatigue Eyes: no worsening vision Ear, Nose, Mouth, Throat: no facial pain and no pain with swallowing Respiratory: no cough and no dyspnea Cardiovascular: no chest pain and no palpitations Gastrointestinal: + abdominal pain; no nausea and no vomiting Genitourinary: + problem reported Musculoskeletal: no back pain Integumentary: no rash and no urticaria Neurologic: no gait abnormality and no unsteadiness Psychiatric: no behavioral changes and no depression Endocrine: no fatigue Physical Exam Physical Exam: SP site healthy Urine clear He points to an area of the right inguinal fold with extremely focal discomfort, I believe I can palpate a lymph node in this areait brings out noticeable reaction upon light touch, I do not feel a hernia and I see no skin changes Constitutional: well developed and well nourished Neck: neck nontender Respiratory: normal respiratory effort; no respiratory distress and does not use accessory muscles Cardiovascular: Rate/Rhythm: regular rate Vessels: radial pulses present Extremities: no edema Gastrointestinal (Abdomen): Inspection/Auscultation: abdomen normal to inspection Percussion/Palpation: abdomen soft; abdomen nontender and no guarding Musculoskeletal: Head/Neck/Chest: normocephalic and head atraumatic Extremities: extremities normal to inspection Skin: no rashes and no lesions Trauma: no evidence of skin trauma Neurologic: awake; not obtunded Speech / Cognition: normal speech Motor/Sensory: no tremor Psychiatric: Orientation: alert and oriented x 3 Genitourinary: no CVA tenderness Lymphatic: no lymphadenopathy Results & Data ([facility]) Vital Signs (Past 12 Hours) Vital Signs Temp Pulse Pulse Resp BP BP Pulse Ox 05/06/20 07:04 36.5 C 57 L 16 199/93 H 95 05/06/20 03:23 36.5 C 57 L 12 178/82 H 92 05/06/20 02:30 52 L 14 145/77 H 92 05/06/20 02:00 53 L 13 151/76 H 92 05/06/20 01:30 54 L 17 138/83 92 05/06/20 01:00 52 L 15 145/79 H 92 05/06/20 00:30 52 L 13 139/74 93 05/06/20 00:01 52 L 12 146/72 H 94 05/06/20 00:00 52 L 12 94 05/05/20 23:30 56 L 16 126/95 93 05/05/20 23:00 53 L 15 148/81 H 94 05/05/20 22:30 53 L 13 151/78 H 93 05/05/20 22:00 52 L 17 151/74 H 93 05/05/20 21:30 53 L 17 141/77 H 92 05/05/20 21:00 57 L 18 133/77 91 PG Care Time/CCT Total # of Minutes Spent Total Time Spent with Patient: Total time spent is greater than 50% in coordination of care (as documented) at patient's floor/unit and/or counseling patient: Coding Level of Care Code 80365 Inpt Consult Level 4 Diagnoses Hydronephrosis N13.30 Hydronephrosis type: unspecified Bilateral renal masses N28.89 Recurrent UTI N39.0 (1) Hydronephrosis Hydronephrosis type: unspecified Qualified Code(s): N13.30 - Unspecified hydronephrosis
[2020-05-06] MEDS ORDERED: PIPERACILLIN/TAZOBACTAM 3.375 GM in DEXTROSE 5% 100 ML IV ONE (08:45)
[2020-05-06] MEDS ORDERED: FLUCONAZOLE 100 MG TAB PO SCH (09:00)
--- NOTE | 2020-05-06 09:08 | CT Scan Report ---
ABDOMEN AND PELVIS CT WITHOUT CONTRAST CT DOSE: 711.95 mGy.cm HISTORY: Acute generalized abdominal and pelvic pain with recent placement of a supraumbilical urinar y catheter suprapubic cathetic recently placed, ab pain TECHNIQUE: Multiaxial CT images of the abdomen and pelvis were performed without contrast. A dose lo wering technique was utilized adhering to the principles of ALARA. COMPARISON STUDY: CT abdomen and pelvis 11/25/2019. FINDINGS: Partially imaged pacer leads. Coronary artery calcifications. Mild bibasilar atelectasis/sc arring. Small area of bronchiectasis involves the posterior basal segment right lower lobe. No pneuma tosis or pneumoperitoneum. Calcific granulomata of the spleen. Limited evaluation of the solid organs without the use of IV cont rast. Moderate generalized pancreatic atrophy. Unremarkable adrenal glands. Cholecystectomy. Unremark able liver. Bilateral ureteral stents redemonstrated which appear to be in stable satisfactory positioning. No re nal or ureteral calculi identified. There is mildly progressed dilation of the right renal collecting system and renal pelvis. The renal pelvis now measures 2.2 cm transversely, previously 1.5 cm. Corti aleena thinning of the left kidney with numerous cortical and renal sinus cysts redemonstrated. Bilatera l urothelial thickening with perirenal and periureteral inflammatory stranding redemonstrated. Urinar y bladder wall thickening with partial distention. Moderate amount of intraluminal air within the najma dder lumen. A supraumbilical catheter has been placed in the interval. Distal tip terminates within t he bladder lumen. Calcified plaque of the abdominal aorta without aneurysm. No adenopathy. Penile imp lant. Small fat filled bilateral inguinal hernias. Small duodenal diverticulum. No bowel obstruction. Intraluminal radiodense foci within the rectum may reflect no fragments. Moderate fecal retention results in distention of the rectum measuring up to 7 .4 cm transversely. Mild rectal wall thickening with perirectal stranding. The appendix is not identi fied. Tiny fat filled periumbilical hernia. Unremarkable soft tissues. Degenerative changes of the sp ine, pelvis and hips. Include severe osteoarthritis with chronic remodeling of the left femoral aceta bular joint. IMPRESSION: 1. Interval placement of a supraumbilical urinary bladder catheter. Air within the bladder lumen is n oted in addition to bladder wall thickening and perivesicular stranding, possibly postprocedural. Cor relate with urinalysis. 2. Satisfactory positioning of the bilateral ureteral stents. There is mildly progressed hydronephros is on the right. 3. Persistent bilateral urothelial thickening of the collecting systems and ureters may be reactive o r reflect an ascending infectious or inflammatory ureteritis/pyelitis. 4. Constipation resulting in rectal distention. Rectal wall thickening with perirectal stranding may reflect associated stercoral proctitis. 5. Additional findings as above. ACT 112: Negative or not required by law. The above report was generated using voice recognition software. It may contain grammatical, syntax o r spelling errors. Electronically signed by: Renny Joshi M.D. 05/06/2020 9:07 AM
--- NOTE | 2020-05-06 09:38 | XRay Report ---
XR chest 1V portable HISTORY: cough COMPARISON: Chest 05/05/2020. FINDINGS: The heart is normal in size. There is a left-sided dual-chamber pacemaker. The lungs are cl ear. No pleural effusions. No pneumothorax. The bones are osteopenic. IMPRESSION: No significant change compared to the prior study. No acute process. ACT 112: Negative or not required by law. Electronically signed by: Travis Cabrera M.D. 05/06/2020 9:36 AM
[2020-05-06] MEDS ORDERED: SOD PHOSPHATE/SOD BIPHOSPHATE ENEMA 132 ML BTL PR STA (10:12)
[2020-05-06] MEDS: APIXABAN 2.5 MG TAB PO SCH ×2 (11:29→20:30)
[2020-05-06] MEDS ORDERED: TIGECYCLINE 100 MG in DEXTROSE 5% 100 ML IV ONE (12:30)
--- NOTE | 2020-05-06 15:01 | Electrocardiogram Report ---
Test Reason : Blood Pressure : / mmHG Vent. Rate : 058 BPM Atrial Rate : 058 BPM P-R Int : 162 ms QRS Dur : 088 ms QT Int : 442 ms P-R-T Axes : 000 -44 053 degrees QTc Int : 433 ms Sinus bradycardia atrial-paced complexes Left axis deviation Abnormal ECG When compared with ECG of 29-MAR-2020 17:46, No significant change was found Confirmed by Yaron Sarmiento ([id number]) on 05/06/2020 3:00:39 PM Referred By: REFERRED SELF Confirmed By:Yaron Sarmiento
--- NOTE | 2020-05-06 15:10 | History & Physical Bridge Note ---
Date of Service May 06, 2020 History & Physical Bridge Note I have examined the patient, reviewed the History & Physical and in the interval since the performance of the History & Physical I have noted the following changes of clinical significance: Patient feeling much better today per his account. Less pain and tolerable with ordered medications. Admitted with R groin and back pain --> reporting similar location of pain but controlled with ordered medications and denies need for medication during our encounter. Seen by Urology this AM and imaging with good placement. Review of imaging does show: * 1. Interval placement of a supraumbilical urinary bladder catheter. Air within the bladder lumen is noted in addition to bladder wall thickening and perivesicular stranding, possibly postprocedural. Correlate with urinalysis. * 2. Satisfactory positioning of the bilateral ureteral stents. There is mildly progressed hydronephrosis on the right. * 3. Persistent bilateral urothelial thickening of the collecting systems and ureters may be reactive or reflect an ascending infectious or inflammatory ureteritis/pyelitis. --> does have CVA tenderness as well as WBC casts on urine. Anticipate longer course of abx * 4. Constipation resulting in rectal distention. Rectal wall thickening with perirectal stranding may reflect associated stercoral proctitis. Patient with hx UTI with cultures from 04/23 from indwelling catheter that grew Stenotrophomonas maltophilia and grisel albicans/dubliniensis. Had been treated with Nitrofurantoin and Diflucan prior to that and had b/l stent exchange on 04/30. 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 Arcos for allergy testing given multiple abx listed as adverse reaction ANAPHYLAXIS however patient unable to confirm all medications that have caused this type of reaction. Urine culture with pin-point growth , re-incubating --> FOLLOW WBC wnl Continue IVF NSS @80cc/hr Repeating BMP as CR bumped to 2.0 from prior 1.7 -- appears baseline cr ranging from 1.6-2 since 2019 Constipation/Hypothyroidism Chronic constipation with acute worsening --> patient has had MULTIPLE LOOSER/DARKENED STOOLS (ON IRON SUPPLEMENTATION) and states he is feeling MUCH BETTER. --> Also checked TSH given his hypothyroidism, elevated at 25.3 which could be reactive, FT4 wnl but lower at 0.99. ?Consider increasing to prevent constipation issues otherwise continued on his home 100mcg daily Afib/HTN/HLD * Also with history of afib. Patient recently had his eliquis reduced to 2.5mg BID. Not ordered on admission --> RESUMED * --of note, patient with hx bleeding ulcers. h/h stable but will continue to monitor blood counts in AM * patient's BPs elevated this AM, likely some component of pain, however nursing changed BP cuff and repeat BP well controlled, 137/76. * Continue on home carvedilol 3.125mg BID Supervising Physician Co-Signing Physician Notes KAMI Supervision Note: I did not personally see or examine the patient today, but I verified all delaney points of KAMI Shepard's assessment and plan with the following exceptions/additions: Consult ID given possibility of pyelitis and with indwelling ureteral stents- high risk for bacteremia. Stenotrophomonas tends to be a colonizer of lungs and urine with indwelling catheters too, unsure if should be treated. He is allergic to Bactrim and Levaquin and this org is intermediate sensitivity to ceftazadime. Adonay give tigocycline for now and await formal ID consult on Thursday. Pt stable and much improved regardless. Most likely pain coming from SEVERE constipation which is now resolved Also TSH 25--> increase LT4 to 112mcg and repeat TFTs in 4 weeks
[2020-05-06] MEDS: PIPERACILLIN/TAZOBACTAM 3.375 GM in DEXTROSE 5% 100 ML IV SCH ×2 (15:33→23:12)
[2020-05-06 15:42] LABS: BUN Creatinine Ratio 9.2 (10-20); Calcium 8.3 mg/dl (8.5-10.1); Creatinine Clr Calc Pharmacy 29.5 ml/min; Est GFR (African American) 37.2; Est GFR (Non-African American) 32.1; Potassium 3.6 mmol/L (3.5-5.1)
[2020-05-06] MEDS: SIMVASTATIN 80 MG TAB PO SCH (20:29)
[2020-05-06] MEDS: DONEPEZIL HCL 10 MG TAB PO SCH (20:30)
[2020-05-06] MEDS: TAMSULOSIN HCL 0.4 MG CAP PO SCH (20:30)
[2020-05-06] MEDS: GABAPENTIN 300 MG CAP PO SCH (20:30)
[2020-05-07] MEDS ORDERED: TIGECYCLINE 50 MG in DEXTROSE 5% 100 ML IV ONE (01:00)
[2020-05-07] MEDS: LEVOTHYROXINE SODIUM 112 MCG TABLET PO SCH (05:51)
[2020-05-07] MEDS: PIPERACILLIN/TAZOBACTAM 3.375 GM in DEXTROSE 5% 100 ML IV SCH ×3 (05:53→22:04)
[2020-05-07 06:20] LABS: Basophils # (auto) 0.03 K/uL (0-0.2); Basophils % (auto) 0.3 %; Eosinophils # (auto) 0.32 K/uL (0-0.5); Eosinophils % (auto) 3.1 %; Hematocrit (blood only) 38.7 % (42-52); Hemoglobin 12.7 g/dL (14.0-18.0); Immature Granulocytes # (auto) 0.02 K/uL (0.00-0.02); Immature Granulocytes % (auto) 0.2 %; Lymphocytes # (auto) 1.55 K/uL (1.2-3.4); Lymphocytes % (auto) 14.8 %; Mean Corpuscular Hemoglobin 30.7 pg (25-34); Mean Corpuscular Hgb Conc 32.8 g/dL (32-36); Mean Corpuscular Volume 93.5 fL (80-100); Mean Platelet Volume 10.4 fL (7.4-10.4); Monocytes # (auto) 1.24 K/uL (0.11-0.59); Monocytes % (auto) 11.8 %; Neutrophils # (auto) 7.31 K/uL (1.4-6.5); Neutrophils % (auto) 69.8 %; Platelet Count 236 K/uL (130-400); RDW Coefficient of Variation 13.2 % (11.5-14.5); RDW Standard Deviation 45.1 fL (36.4-46.3); Red Blood Count 4.14 M/uL (4.7-6.1); White Blood Count 10.47 K/uL (4.8-10.8)
[2020-05-07 06:52] LABS: Albumin Level 2.8 gm/dl (3.4-5.0); BUN Creatinine Ratio 11.5 (10-20); Calcium 8.5 mg/dl (8.5-10.1); Creatinine Clr Calc Pharmacy 29.1 ml/min; Est GFR (African American) 36.6; Est GFR (Non-African American) 31.5; Potassium 3.5 mmol/L (3.5-5.1)
[2020-05-07 06:55] LABS: Albumin Globulin Ratio 0.7 (0.9-2); Bilirubin,Total 0.6 mg/dl (0.2-1); Globulin 3.9 gm/dl (2.5-4.0); Total Protein 6.7 gm/dl (6.4-8.2)
[2020-05-07] MEDS: carvediloL 3.125 MG TAB PO SCH ×2 (08:22→22:03)
[2020-05-07] MEDS: CITALOPRAM 20 MG TAB PO SCH (08:22)
[2020-05-07] MEDS: MEMANTINE HCL 10 MG TAB PO SCH ×2 (08:22→22:03)
[2020-05-07] MEDS: buPROPion SR 100 MG TABCR PO SCH (08:23)
[2020-05-07] MEDS: FOLIC ACID 1 MG TAB PO SCH (08:23)
[2020-05-07] MEDS: FERROUS SULFATE 325 MG TAB PO SCH ×2 (08:23→17:45)
[2020-05-07] MEDS: APIXABAN 2.5 MG TAB PO SCH ×2 (08:23→22:03)
[2020-05-07] MEDS: FAMOTIDINE 40 MG TABLET PO SCH (08:23)
[2020-05-07] MEDS: ISOSORBIDE MONO EXTENDED REL 60 MG TABCR PO SCH (08:23)
[2020-05-07] MEDS: BETHANECHOL CHL 25 MG TAB PO SCH ×4 (08:23→22:04)
--- NOTE | 2020-05-07 15:06 | Urology Progress Note ---
Date of Service May 07, 2020 Assessment & Plan (1) Presence of suprapubic catheter: (2) Acute UTI: 80yo M with multiple comorbidities admitted with weakness and right groin pain -Patient with chronic issues including bilateral ureteral stents and recent suprapubic tube placement -CT on arrival shows bilateral ureteral stents to be in good position and suprapubic tube appropriately positioned within the bladder -He is afebrile -Labs reviewed, Wbc normal and creatinine 1.94 today -SP tube intact, urine cloudy yellow -Urine culture preliminary gram negative bacilli, follow cultures for final sensitivities -No acute intervention indicated at this time -Recommend continue supportive care and antibiotics -Plan to keep outpatient follow-up with urology service as scheduled on 05/30/20. -Thank you for allowing us to participate in the acute care of Mr. Momni. -Please reconsult us with additional questions, concerns or changes in patient status. Admission and Anticipated Discharge Date Admission Date: May 06, 2020 Subjective Pt examined at bedside this afternoon. Awake, resting in bed on arrival. Pleasantly confused, no acute distress. He reports right sided groin pain. No fevers or chills. No nausea or vomiting. Tolerating diet. Suprapubic catheter intact, draining cloudy yellow urine Afebrile, Wbc 10.47, Hgb 12.7, Cr 1.94 Review of Systems Constitutional: as per Subjective / HPI Gastrointestinal: as per Subjective / HPI Genitourinary: + as per Subjective / HPI Physical Exam Constitutional: no acute distress Pleasantly confused Respiratory: normal respiratory effort; no labored breathing Cardiovascular: Extremities: no calf tenderness Skin: Warm and dry. Neurologic: moves all extremities and awake Psychiatric: Orientation: alert, oriented to person and cooperative Genitourinary: Suprapubic catheter intact, draining cloudy yellow urine Insertion site pink with scant bloody drainage. Drain sponge and medipore intact Suprapubic tenderness with palpation Results & Data ([facility]) Vital Signs (Past 12 Hours) Vital Signs Temp Pulse Resp BP BP Pulse Ox 05/07/20 09:24 149/88 H 05/07/20 07:51 36.5 C 63 18 195/105 H 93 PG Care Time/CCT Total # of Minutes Spent Total Time Spent with Patient: Total time spent is greater than 50% in coordination of care (as documented) at patient's floor/unit and/or counseling patient: Coding Level of Care Code 74978 Subseq Hosp Care Lvl 2 Diagnoses Presence of suprapubic catheter Z93.59 Acute UTI N39.0
[2020-05-07] MEDS: DONEPEZIL HCL 10 MG TAB PO SCH (22:02)
[2020-05-07] MEDS: TAMSULOSIN HCL 0.4 MG CAP PO SCH (22:03)
[2020-05-07] MEDS: GABAPENTIN 300 MG CAP PO SCH (22:04)
[2020-05-07] MEDS: SIMVASTATIN 80 MG TAB PO SCH (22:04)
--- NOTE | 2020-05-07 23:16 | Hospitalist Progress Note ---
Date of Service May 07, 2020 Assessment & Plan (1) Recurrent UTI: previous organisms includingRecurrent urinary tract infection/recent suprapubic catheter placement/history complicated UTI/bilateral ureteral stents- Placed on NSS at 80 mils per hour Follow urine culture and sensitivities - growing GN bacilli Zosyn 4.5 g IV every 8 hours, to be renally adjusted, to cover previous organisms including Stenotrophomonas maltophilia, Enterococcus faecalis and E. coli. Continue fluconazole for [place]isa albicans UTI based on prior culture, if Stenotrophomonas, then could be an issue as he has anaphylaxis reactions to Levaquin and Bactrim listed (2) Complicated UTI (urinary tract infection): See above (3) Presence of suprapubic catheter: See above Consult urology - Dr. 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: Continue levothyroxine sodium 100 mcg daily (5) Anxiety and depression: Anxiety and depression/dementia- Continue bupropion, citalopram, donepezil, and memantine (6) CAD (coronary artery disease), [place] coronary artery: CAD/hypertension/atrial fibrillation- Continue apixaban, carvedilol, and isosorbide mononitrate (7) HTN (hypertension), benign: See above (8) Stage 3b chronic kidney disease: Creatinine 1.9 today, making urine, electrolytes stable Follow serially with labs in the a.m. (9) Dyslipidemia: Continue simvastatin 80 mg at bedtime (10) GERD (gastroesophageal reflux disease): Continue famotidine (11) S/P ureteral stent placement: See above (12) Atrial fibrillation: See above (13) Chronic constipation: Fecal retention with distention 9 cm similar to previous. Placing on IV fluids as noted above. Dulcolax suppository now, and daily as needed Admission and Anticipated Discharge Date Admission Date: May 06, 2020 Subjective patient doing okay, no major issues c/o pain in right groin and pain in left great toe appreciate urology consult, appreciate ID consult still waiting on final culture from urine, GN baccilli at this point continue Zosyn IV, could be an issue if it is Stenotrophomonas eating okay, no chest pain, no dyspnea, no cough Review of Systems Review of Systems: All systems reviewed & are unremarkable except as noted in Subjective Physical Exam Constitutional: well developed, well nourished, + frail appearing and cooperative; no acute distress Neck: trachea midline, no thyromegaly Respiratory: normal respiratory effort, lungs clear to auscultation Cardiovascular: RRR, no murmur, no edema Gastrointestinal (Abdomen): normal bowel sounds, soft, nontender, no hepatosplenomegaly Inspection/Auscultation: + abdominal surgical drain present (suprapubic catheter in place) Musculoskeletal: no cyanosis or clubbing, extremities motor strength 5/5 Skin: no rashes, warm and dry Neurologic: patellar DTR's 2+ bilat, sensation intact and PERRL, EOMI, accommodation nl, no face palsy, no dysarthria Psychiatric: A+Ox3, euthymic affect Lymphatic: no cervical or axillary lymphadenopathy Results & Data Results & Data ([facility]) Vital Signs (Past 12 Hours) Vital Signs Temp Pulse Resp BP BP Pulse Ox 05/07/20 22:02 36.8 C 64 18 165/91 H 94 05/07/20 15:06 36.3 C L 56 L 16 172/84 H 93 Laboratory Results Laboratory Results - last 24 hr 05/07/20 05/07/20 05:30 05:30 WBC 10.47 RBC 4.14 L Hgb 12.7 L Hct 38.7 L MCV 93.5 MCH 30.7 MCHC 32.8 RDW Std Deviation 45.1 RDW Coeff of [place] 13.2 Plt Count 236 MPV 10.4 Immature Gran % (Auto) 0.2 Neut % (Auto) 69.8 Lymph % (Auto) 14.8 [place] % (Auto) 11.8 Eos % (Auto) 3.1 Baso % (Auto) 0.3 Neut # (Auto) 7.31 H Lymph # (Auto) 1.55 [place] # (Auto) 1.24 H Eos # (Auto) 0.32 Baso # (Auto) 0.03 Immature Gran # (Auto) 0.02 Sodium 139 Potassium 3.5 Chloride 108 H Carbon Dioxide 25 Anion Gap 6.0 BUN 22 H Creatinine 1.94 H Est Cr Clr Drug Dosing 29.1 Est GFR ( Amer) 36.6 Est GFR (Non-Af Amer) 31.5 BUN/Creatinine Ratio 11.5 Glucose 81 Calcium 8.5 Total Bilirubin 0.6 AST 11 L ALT 8 L Alkaline Phosphatase 87 Total Protein 6.7 Albumin 2.8 L Globulin 3.9 Albumin/Globulin Ratio 0.7 L Medications Administered Current Inpatient Medications Acetaminophen (Acetaminophen 325 Mg Tab) 650 mg PO Q4H PRN PRN Reason: Pain or Fever Stop: 06/05/20 03:07 Last Admin: 05/06/20 10:11 Dose: 650 mg Documented by: Acetaminophen (Acetaminophen 325 Mg Tab) 650 mg PO Q4H PRN PRN Reason: pain/fever Stop: 06/05/20 03:07 Apixaban (Apixaban 2.5 Mg Tab) 2.5 mg PO BID [facility] Stop: 06/05/20 10:44 Last Admin: 05/07/20 22:03 Dose: 2.5 mg Documented by: Bethanechol Chloride (Bethanechol Chl 25 Mg Tab) 50 mg PO QID [facility] Stop: 06/05/20 08:59 Last Admin: 05/07/20 22:04 Dose: 50 mg Documented by: Bisacodyl (Bisacodyl 10 Mg Supp) 10 mg MO DAILY PRN PRN Reason: Constipation Stop: 06/05/20 03:07 Bupropion HCl (Bupropion Sr 100 Mg Tabcr) 100 mg PO QAM [facility] Stop: 06/05/20 08:59 Last Admin: 05/07/20 08:23 Dose: 100 mg Documented by: Carvedilol (Carvedilol 3.125 Mg Tab) 3.125 mg PO BID [facility] Stop: 06/05/20 08:59 Last Admin: 05/07/20 22:03 Dose: 3.125 mg Documented by: Citalopram Hydrobromide (Citalopram 20 Mg Tab) 10 mg PO QAM [facility] Stop: 06/05/20 08:59 Last Admin: 05/07/20 08:22 Dose: 10 mg Documented by: Donepezil HCl (Donepezil Hcl 10 Mg Tab) 10 mg PO HS [facility] Stop: 06/05/20 20:59 Last Admin: 05/07/20 22:02 Dose: 10 mg Documented by: Famotidine (Famotidine 40 Mg Tablet) 40 mg PO QAM [facility] Stop: 06/05/20 08:59 Last Admin: 05/07/20 08:23 Dose: 40 mg Documented by: Ferrous Sulfate (Ferrous Sulfate 325 Mg Tab) 325 mg PO BIDM [facility] Stop: 06/05/20 07:59 Last Admin: 05/07/20 17:45 Dose: 325 mg Documented by: Folic Acid (Folic Acid 1 Mg Tab) 1 mg PO QAM [facility] Stop: 06/05/20 08:59 Last Admin: 05/07/20 08:23 Dose: 1 mg Documented by: Gabapentin (Gabapentin 300 Mg Cap) 300 [address] [facility] Stop: 06/05/20 20:59 Last Admin: 05/07/20 22:04 Dose: 300 mg Documented by: Piperacillin Sod/Tazobactam (Sod 3.375 gm/ Dextrose) 115 mls @ 28.75 mls/hr IV Q8H [facility]; Protocol Stop: 05/16/20 14:59 Last Admin: 05/07/20 22:04 Dose: 28.8 mls/hr Documented by: Isosorbide Mononitrate (Isosorbide [place] Extended Rel 60 Mg Tabcr) 60 mg PO [facility] Stop: 06/05/20 08:59 Last Admin: 05/07/20 08:23 Dose: 60 mg Documented by: Levothyroxine Sodium (Levothyroxine Sodium 112 Mcg Tablet) [facility] Stop: 06/06/20 06:29 Last Admin: 05/07/20 05:51 Dose: 112 mcg Documented by: Memantine (Memantine Hcl 10 Mg Tab) 10 mg PO BID [facility] Stop: 06/05/20 08:59 Last Admin: 05/07/20 22:03 Dose: 10 mg Documented by: Miscellaneous Information (Piperacill/Tazobac Consult Active) 1 ea N/A UD PRN PRN Reason: Consult Stop: 06/05/20 03:07 Ondansetron HCl (Ondansetron Inj 2 Mg/Ml 2 Ml Vial) 4 mg IV Q6H PRN PRN Reason: Nausea Stop: 06/05/20 03:07 Oxybutynin Chloride (Oxybutynin Chloride 5 Mg Tab) 5 mg PO Q8H PRN PRN Reason: bladder spasms Stop: 06/05/20 03:07 Phenazopyridine HCl (Phenazopyridine Hcl 200 Mg Tab) 200 mg PO Q8H PRN PRN Reason: pain Stop: 06/05/20 03:07 Simvastatin (Simvastatin 80 Mg Tab) [address] [facility] Stop: 06/05/20 20:59 Last Admin: 05/07/20 22:04 Dose: 80 mg Documented by: Tamsulosin HCl (Tamsulosin Hcl 0.4 Mg Cap) 0.4 mg PO QPM [facility] Stop: 06/05/20 20:59 Last Admin: 05/07/20 22:03 Dose: 0.4 mg Documented by: Tramadol HCl (Tramadol Hcl 50 Mg Tablet) 50 mg PO TID PRN PRN Reason: Moderate Pain Stop: 06/05/20 03:07 Last Admin: 05/06/20 23:18 Dose: 50 mg Documented by: PG Care Time/CCT Total # of Minutes Spent Total Time Spent with Patient: Total time spent is greater than 50% in coordination of care (as documented) at patient's floor/unit and/or counseling patient: Coding Level of Care Code 27059 Subseq Hosp Care Lvl 2 Diagnoses Recurrent UTI N39.0 Complicated UTI (urinary tract infection) N39.0 Presence of suprapubic catheter Z93.59 Hypothyroidism E03.9 Hypothyroidism type: acquired Anxiety and depression F41.9; F32.9 CAD (coronary artery disease), [place] coronary artery I25.10 [place] vs. transplanted heart: [place] heart Associated angina: without angina HTN (hypertension), benign I10 Stage 3b chronic kidney disease N18.32 Dyslipidemia E78.5 GERD (gastroesophageal reflux disease) K21.9 Esophagitis presence: esophagitis presence not specified S/P ureteral stent placement Z96.0 Atrial fibrillation I48.91 Atrial fibrillation type: unspecified Chronic constipation K59.09 (1) Hypothyroidism Hypothyroidism type: acquired Qualified Code(s): E03.9 - Hypothyroidism, unspecified (2) CAD (coronary artery disease), [place] coronary artery [place] vs. transplanted heart: [place] heart Associated angina: without angina Qualified Code(s): I25.10 - Atherosclerotic heart disease of [place] coronary artery without angina pectoris (3) GERD (gastroesophageal reflux disease) Esophagitis presence: esophagitis presence not specified Qualified Code(s): K21.9 - Gastro-esophageal reflux disease without esophagitis (4) Atrial fibrillation Atrial fibrillation type: unspecified Qualified Code(s): I48.91 - Unspecified atrial fibrillation
[2020-05-08] MEDS: LEVOTHYROXINE SODIUM 112 MCG TABLET PO SCH (06:13)
[2020-05-08] MEDS: PIPERACILLIN/TAZOBACTAM 3.375 GM in DEXTROSE 5% 100 ML IV SCH (06:13)
[2020-05-08] MEDS: BETHANECHOL CHL 25 MG TAB PO SCH ×4 (08:40→20:35)
[2020-05-08] MEDS: APIXABAN 2.5 MG TAB PO SCH ×2 (08:41→20:34)
[2020-05-08] MEDS: carvediloL 3.125 MG TAB PO SCH ×2 (08:41→20:33)
[2020-05-08] MEDS: FAMOTIDINE 40 MG TABLET PO SCH (08:41)
[2020-05-08] MEDS: FERROUS SULFATE 325 MG TAB PO SCH ×2 (08:41→17:51)
[2020-05-08] MEDS: MEMANTINE HCL 10 MG TAB PO SCH ×2 (08:41→20:34)
[2020-05-08] MEDS: FOLIC ACID 1 MG TAB PO SCH (08:41)
[2020-05-08] MEDS: ISOSORBIDE MONO EXTENDED REL 60 MG TABCR PO SCH (08:41)
[2020-05-08] MEDS: buPROPion SR 100 MG TABCR PO SCH (08:41)
[2020-05-08] MEDS: CITALOPRAM 20 MG TAB PO SCH (08:41)
--- NOTE | 2020-05-08 17:31 | Hospitalist Progress Note ---
Date of Service May 08, 2020 Assessment & Plan (1) Recurrent UTI: growing Stenotrophomonas, sensitive to Bactrim and Levaquin he has allergy to Bactrim and Levaquin, listed as anaphylactic reactions confirmed with his and daughter that he had a bad reaction, this was in the 's d/w Dr. Arcos, will proceed with desensitization with Bactrim, would need to be moved to ICU tomorrow for this to happen pharmacy can mix up dosing per protocol for his renal function the dose of Bactrim (TMP component) would be 7.5mg/kg/day divided into 3-4 doses a day once he completes a full dose of Bactrim without any reaction he can return to the floor (2) Complicated UTI (urinary tract infection): See above (3) Presence of suprapubic catheter: See above Consult urology - Dr. 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: Continue levothyroxine sodium 100 mcg daily (5) Anxiety and depression: Anxiety and depression/dementia- Continue bupropion, citalopram, donepezil, and memantine (6) CAD (coronary artery disease), [place] coronary artery: CAD/hypertension/atrial fibrillation- Continue apixaban, carvedilol, and isosorbide mononitrate (7) HTN (hypertension), benign: See above (8) Stage 3b chronic kidney disease: Creatinine remains stable at 1.9, making urine, electrolytes stable Follow serially with labs in the a.m. (9) Dyslipidemia: Continue simvastatin 80 mg at bedtime (10) GERD (gastroesophageal reflux disease): Continue famotidine (11) S/P ureteral stent placement: See above (12) Atrial fibrillation: See above (13) Chronic constipation: Fecal retention with distention 9 cm similar to previous. Placing on IV fluids as noted above. Dulcolax suppository PRN Admission and Anticipated Discharge Date Admission Date: May 06, 2020 Subjective patient doing about the same as yesterday per RN he has some more sediment in urine, maybe a little more sleepy he is eating, vitals stable, no fever no labs today urine culture with Stenotrophomonas but it is only sensitive to Bactrim and Levaquin, both of which cause severe allergic reactions spoke with his and daughters, they confirmed that he had severe reactions in the consulted Dr. Arcos with allergy, he will see patient later, will likely need to de-sensitize to Bactrim spoke with pharmacy, the dose for Stenotrophomonas is 15mg/kg/day divided into 3-4 doses but for his renal function it would be cut in half to 7.5mg/kg/day, for the TMP this would be roughly 200mg TID or 155mg QID I updated patient's family on plan to try Bactrim while inpatient, would need to be in ICU for close monitoring they agree with plan, "do whatever is needed" Review of Systems Review of Systems: All systems reviewed & are unremarkable except as noted in Subjective Constitutional: + fatigue and + weakness; no fever Respiratory: no cough and no dyspnea Cardiovascular: no chest pain, no palpitations and no edema Gastrointestinal: no abdominal pain, no nausea, no vomiting, no constipation and no diarrhea/loose stools Physical Exam Constitutional: well developed, well nourished, + frail appearing and cooperative; no acute distress Neck: trachea midline, no thyromegaly Respiratory: normal respiratory effort, lungs clear to auscultation Cardiovascular: RRR, no murmur, no edema Gastrointestinal (Abdomen): normal bowel sounds, soft, nontender, no hepatosplenomegaly Inspection/Auscultation: + abdominal surgical drain present (suprapubic catheter in place) Musculoskeletal: no cyanosis or clubbing, extremities motor strength 5/5 Skin: no rashes, warm and dry Neurologic: patellar DTR's 2+ bilat, sensation intact and PERRL, EOMI, accommodation nl, no face palsy, no dysarthria Psychiatric: A+Ox3, euthymic affect Lymphatic: no cervical or axillary lymphadenopathy Results & Data Results & Data ([facility]) Vital Signs (Past 12 Hours) Vital Signs Temp Pulse Resp BP BP Pulse Ox 05/08/20 15:41 36.6 C 64 16 169/90 H 92 05/08/20 07:34 61 178/93 H 05/08/20 06:56 36.8 C 54 L 16 199/85 H 92 PG Care Time/CCT Total # of Minutes Spent Total Time Spent: 35 Total Time Spent with Patient: Total time spent is greater than 50% in coordination of care (as documented) at patient's floor/unit and/or counseling patient: two separate phone calls with family spoke twice with Dr. Arcos about plan discussion with pharmacy regarding appropriate dosing and desensitization time spent with patient, exam, documentation Coding Level of Care Code 25025 Subseq Hosp Care Lvl 3 Diagnoses Recurrent UTI N39.0 Complicated UTI (urinary tract infection) N39.0 Presence of suprapubic catheter Z93.59 Hypothyroidism E03.9 Hypothyroidism type: acquired Anxiety and depression F41.9; F32.9 CAD (coronary artery disease), [place] coronary artery I25.10 [place] vs. transplanted heart: [place] heart Associated angina: without angina HTN (hypertension), benign I10 Stage 3b chronic kidney disease N18.32 Dyslipidemia E78.5 GERD (gastroesophageal reflux disease) K21.9 Esophagitis presence: esophagitis presence not specified S/P ureteral stent placement Z96.0 Atrial fibrillation I48.91 Atrial fibrillation type: unspecified Chronic constipation K59.09 (1) Hypothyroidism Hypothyroidism type: acquired Qualified Code(s): E03.9 - Hypothyroidism, unspecified (2) CAD (coronary artery disease), [place] coronary artery [place] vs. transplanted heart: [place] heart Associated angina: without angina Qualified Code(s): I25.10 - Atherosclerotic heart disease of [place] coronary artery without angina pectoris (3) GERD (gastroesophageal reflux disease) Esophagitis presence: esophagitis presence not specified Qualified Code(s): K21.9 - Gastro-esophageal reflux disease without esophagitis (4) Atrial fibrillation Atrial fibrillation type: unspecified Qualified Code(s): I48.91 - Unspecified atrial fibrillation
--- NOTE | 2020-05-08 17:57 | Allergy & Immunology Consult ---
Date of Consultation May 08, 2020 Assessment & Plan (1) Multiple drug allergies: Unfortunately, the patient's history was not useful to further characterize his reactions. In these settings, we have to assume that he had a true allergic reaction to sulfonamide antibiotics and levofloxacin. As there are no good alternatives, the appropriate step would be to proceed with drug desensitization to Bactrim. Dose will need to be adjusted for his renal function, and I will work with pharmacy on a protocol. He will need to be moved to the ICU for the desensitization. Assuming it goes smoothly, he can be transferred back to the floor once he has received the full dose and tolerated it. He should be able tolerate the full treatment course of Bactrim, but once he stops it, the desensitization will wear off. If he needs Bactrim again, another desensitization would be needed. Ideally, I would like to perform a drug allergy skin test and/or challenges an outpatient to try to clear this from his medication list. There is a good chance that the allergy may have resolved on its own over time. (2) Acute UTI: History of Present Illness Reason for Consultation: drug allergy Attending Physician: Negro Lock DO History of Present Illness Patient is an 80 year old male with a history of multiple antibiotic allergies, chronic renal failure, recurrent ear tract infections who presents with an infection growing Gram-negative bacilli. He did have culture that grew stenotrophomonas, and would need to be treated with either Bactrim or levofloxacin. Per Infectious Disease, Bactrim would be the best choice. The patient does not recall any details about the allergy. He believes that it was more than 10 years ago, but does not recall any other useful details. He has both levofloxacin and sulfonamide antibiotics on his allergy list. He also has captopril, IV contrast, hydrocodone, morphine, oxaprozin, torsemide on his allergy list. He cannot recall any details about any of these medications. Allergies Allergy/AdvReac Type Severity Reaction Status Date / Time captopril Allergy Severe ANAPHYLAXIS Verified 05/05/20 21:21 Iodinated Contrast Media Allergy Severe ANAPHYLAXIS Verified 05/05/20 21:21 levofloxacin Allergy Severe ANAPHYLAXIS Verified 05/05/20 21:22 morphine Allergy Severe Anaphylaxis Verified 05/05/20 21:21 oxaprozin Allergy Severe ANAPHYLAXIS Verified 05/05/20 21:22 Sulfa (Sulfonamide Allergy Severe Anaphylaxis Verified 05/05/20 21:22 Antibiotics) torsemide Allergy Severe ANAPHYLAXIS Verified 05/05/20 21:21 hydrocodone Allergy Mild RASH Verified 05/05/20 21:22 Home Medications Medication Instructions Recorded Confirmed Type epinephrine [EpiPen] 0.3 mg IM UD PRN 06/05/18 05/05/20 History acetaminophen 650 mg PO Q4H PRN #30 tab 08/14/19 05/05/20 Rx carvedilol 3.125 mg tablet 3.125 mg PO BID #180 tab 10/04/19 05/05/20 Rx ferrous sulfate 325 mg (65 mg 325 mg PO BIDM #180 tab 10/04/19 05/05/20 Rx iron) tablet,delayed release folic acid 1 mg tablet 1 mg PO QAM #90 tab 10/04/19 05/05/20 Rx levothyroxine 100 mcg tablet 100 mcg PO HS #90 tab 10/04/19 05/05/20 Rx simvastatin 80 mg tablet 80 mg PO HS #90 tab 10/04/19 05/05/20 Rx gabapentin 300 mg capsule 300 mg PO HS #90 cap 11/03/19 05/05/20 Rx bethanechol chloride 50 mg PO QID 12/24/19 05/05/20 History donepezil 10 mg tablet 10 mg PO HS #90 tab 02/06/20 05/05/20 Rx memantine 10 mg tablet 10 mg PO BID #180 tab 02/06/20 05/05/20 Rx bupropion HCl 100 mg PO QAM 04/13/20 05/05/20 History citalopram 10 mg PO QAM 04/13/20 05/05/20 History famotidine [Pepcid] 40 mg PO QAM 04/13/20 05/05/20 History fluconazole 100 mg PO QAM 04/13/20 05/05/20 History apixaban 2.5 mg tablet 2.5 mg PO BID #180 tab 04/20/20 05/05/20 Rx trimethoprim 100 mg tablet 100 mg PO Q12H 10 Days #20 tab 04/26/20 05/05/20 Rx isosorbide mononitrate 60 mg 60 mg PO QAM #90 tab 04/30/20 05/05/20 Rx tablet,extended release 24 hr oxybutynin chloride 5 mg PO Q8H PRN #14 tab 04/30/20 05/05/20 Rx phenazopyridine [Pyridium] 200 mg PO Q8H PRN #10 tab 04/30/20 05/05/20 Rx tramadol 50 mg PO TID PRN 05/05/20 05/05/20 History tamsulosin 0.4 mg capsule 0.4 mg PO QPM #90 cap 05/07/20 Rx Patient History Medical History Anxiety and depression Aortic stenosis Mild (MG 11 mmHg, UZMA 1.1 cm2) per 11/2015 ECHO. Valve not well visualized on echo 03/22/20. Atrial fibrillation dx 2017 >on Eliquis, no cardioversions BPH w urinary obs/LUTS CAD (coronary artery disease), [place] coronary artery S/P BMS to OM (1997). Caths also 2006, 2008 and 2013, no stents placed. Most recent cath in 2013 showed no angiographically significant stenosis other than 20-30% in-stent restenosis of OM. Cardiac pacemaker in situ Implanted 2008 (03/13 [facility]). [facility] [employer]. Replaced 2016. > Last pacer check 04/10/20 [facility] > Dr. Hodge Chronic indwelling Michel catheter Chronic pain CKD (chronic kidney disease) stage 3, GFR 30-59 ml/min Dementia Dyslipidemia GERD (gastroesophageal reflux disease) controlled History of kidney stones History of DC (myocardial infarction) 1997 HTN (hypertension), benign Hx of gastric ulcer Hypothyroidism Iron deficiency anemia Low blood pressure pt's reports this has been happening lately, last reading was 92/65 at cardiology visit on 04/10/20. Cardiology notes 'clinically stable.' Sleep apnea NO DEVICE Stage 3b chronic kidney disease Surgical History H/O total knee replacement RIGHT/LEFT History of cardiac cath MULTIPLE WITH TOTAL 4 STENTS > LAST ONE 3 YRS AGO > [facility] History of cataract surgery B/L History of colonoscopy History of lithotripsy History of lumbar fusion History of prostate surgery PARTIAL PROSTECTOMY History of thyroidectomy History of tooth extraction all teeth S/P cystoscopy with ureteral stent placement 12/29/19 Dr. William Medrano- Cystoscopy, Bilateral retrograde pyelogram, Bilateral ureteral stent exchange, Left aspiration and culture S/P TURP S/P ureteral stent placement Cysto, B/L RPG, right ureteroscopy, stent exchange: 07/06/18: LMA#5 at [facility] CYSTO STENT EXCHANGE 11/2018 Family History Father Diabetes Mother Coronary heart disease Hypertension Brother Seizure Denies family history of Ovarian cancer Prostate cancer Myocardial infarction Breast cancer Colorectal cancer Social History Smoking Status: Former smoker Tobacco Type: Cigarettes Smoking End Date: ; Second Hand Exposure: No; Hx Alcohol Use: No Hx Substance Use: No Preferred Language: Nepali Communication Ability: Effective Visual Impairment: No Limitations Surface Supply Breathing Apparatus Required: No Beliefs That Will Affect Care: None marital status: Current Living Situation: Spouse and Family Current Living Situation Comment: per RN report from ER, pt lives with and daughter current occupational status: retired How many Children do You have: 3 Other Information That Helps Us Care for You: No Feels Safe at Home: Yes Safety Concerns: Feels Safe At This Time Childhood Exposure to Second-Hand Smoke: No caffeine: Yes (Coffee 3 per day.) during the past year weight has: remained stable Dental Care, Regularly: No Physical Activity Frequency: Does not Exercise Seatbelt Use: always Sunscreen Use: No Assistive Devices: Walker Review of Systems Constitutional: no fever and no chills Eyes: as per Subjective / HPI Ear, Nose, Mouth, Throat: as per Subjective / HPI Respiratory: as per Subjective / HPI Cardiovascular: as per Subjective / HPI; no chest pain and no edema Gastrointestinal: as per Subjective / HPI; no abdominal pain Genitourinary: no dysuria Musculoskeletal: as per Subjective / HPI Integumentary: as per Subjective / HPI Neurologic: no gait abnormality, no memory loss and no problem reported Psychiatric: as per Subjective / HPI; no behavioral changes Endocrine: as per Subjective / HPI Hematologic / Lymphatic: as per Subjective / HPI; no easy bleeding Allergy / Immunological: as per Subjective / HPI Physical Exam Eyes: no conjunctival abnormality, no scleral abnormality and sclerae not anicteric ENMT: Nose: no turbinate abnormality, no nasal mucous membrane abnormality, no septum abnormality and no nasal discharge Mouth: no lip abnormality and no oropharynx abnormality Throat: no postnasal drainage Neck: trachea midline, no thyromegaly Respiratory: normal respiratory effort; no respiratory distress Auscultation: no crackles, no rhonchi and no wheezes Cardiovascular: RRR, no murmur, no edema Gastrointestinal (Abdomen): Inspection/Auscultation: abdomen normal to inspection and normal bowel sounds; abdomen not distended Musculoskeletal: Head/Neck/Chest: + head abnormal to inspection and normocephalic Skin: no rashes Neurologic: awake Speech / Cognition: normal cognition Motor/Sensory: normal movement Psychiatric: A+Ox3, euthymic affect Results & Data ([facility]) Vital Signs (Past 12 Hours) Vital Signs Temp Pulse Resp BP BP Pulse Ox 05/08/20 15:41 36.6 C 64 16 169/90 H 92 05/08/20 07:34 61 178/93 H 05/08/20 06:56 36.8 C 54 L 16 199/85 H 92 Coding Level of Care Code 25032 Initial Inpt Care Lvl 3 Diagnoses Multiple drug allergies Z88.9 Acute UTI N39.0
[2020-05-08] MEDS: DONEPEZIL HCL 10 MG TAB PO SCH (20:33)
[2020-05-08] MEDS: TAMSULOSIN HCL 0.4 MG CAP PO SCH (20:34)
[2020-05-08] MEDS: GABAPENTIN 300 MG CAP PO SCH (20:34)
[2020-05-08] MEDS: SIMVASTATIN 80 MG TAB PO SCH (20:35)
[2020-05-09] MEDS: LEVOTHYROXINE SODIUM 112 MCG TABLET PO SCH (05:33)
[2020-05-09] MEDS: FERROUS SULFATE 325 MG TAB PO SCH ×2 (07:28→17:37)
[2020-05-09] MEDS: MEMANTINE HCL 10 MG TAB PO SCH ×2 (07:28→21:04)
[2020-05-09] MEDS: carvediloL 3.125 MG TAB PO SCH ×2 (07:28→21:04)
[2020-05-09] MEDS: APIXABAN 2.5 MG TAB PO SCH ×2 (07:28→21:04)
[2020-05-09] MEDS: CITALOPRAM 20 MG TAB PO SCH (07:29)
[2020-05-09] MEDS: FAMOTIDINE 40 MG TABLET PO SCH (07:29)
[2020-05-09] MEDS: FOLIC ACID 1 MG TAB PO SCH (07:29)
[2020-05-09] MEDS: buPROPion SR 100 MG TABCR PO SCH (07:30)
[2020-05-09] MEDS: ISOSORBIDE MONO EXTENDED REL 60 MG TABCR PO SCH (07:30)
[2020-05-09] MEDS: BETHANECHOL CHL 25 MG TAB PO SCH ×4 (07:30→21:04)
--- NOTE | 2020-05-09 11:52 | Allergy & Immunology Prog Note ---
Date of Service May 09, 2020 Assessment & Plan (1) Multiple drug allergies: We will proceed with Bactrim desensitization. I contacted pharmacy and sent the protocol. I obtained informed consent from the patient. He verbalized understanding and did not have any questions. I also called the patient's and explained the procedure, risks, benefits, alternatives and they agreed with the need to proceed with the desensitization. I will finalize the protocol with pharmacy and once he has moved the ICU, this can begin. If there are any questions, I can be reached either by my cell phone or [facility]. If there are any symptoms of an allergic reaction as we proceed with the de sensitization, it should be immediately stopped and I should be contacted. In general, if it is cutaneous only, a nonsedating antihistamine like cetirizine 10-20 mg can be given. We would then go back one or two doses and continue to desensitization. If there is a more severe reaction, such as respiratory, he could be treated with a nebulizer or inhaler, or an EpiPen if severe. If he were to develop swelling within the oropharynx, we would treat this with epinephrine 0.3 mg IM. Likewise, if he experiences a drop in blood pressure, we would also treat this with IM epinephrine, same dose. The desensitization still may continue even with these reactions, but we off the may need to go back either to be getting of the desensitization, or at least 3-4 doses depending on the severity. In cases like does of a remote history of drug allergy to occur more 10 years ago, with a reaction that was consistent with IgE (hives and angioedema) I would expect a very high rate of success and very low risk of allergic reaction or adverse event, so in this case I expect that this be high benefit to risk ratio. (2) Acute UTI: Admission and Anticipated Discharge Date Admission Date: May 06, 2020 Subjective No significant overnight issues. I was able to speak to his , she cannot recall all of the details of his reaction. They believe that this occurred in the 1980s and she remember giving him an oral dose and shortly after he complained that his tongue possibly back of the throat was swollen so the rest him to emergency room. He may have also developed hives, but she cannot recall whether this was with the Bactrim or another medication. After meds was stop ped, his symptoms improved. We decided to proceed with Bactrim desensitization. Patient will be moved to the ICU later today for this. Review of Systems Constitutional: as per Subjective / HPI Eyes: as per Subjective / HPI Ear, Nose, Mouth, Throat: as per Subjective / HPI Respiratory: as per Subjective / HPI Cardiovascular: as per Subjective / HPI Gastrointestinal: as per Subjective / HPI Genitourinary: + as per Subjective / HPI Musculoskeletal: as per Subjective / HPI Integumentary: as per Subjective / HPI Neurologic: as per Subjective / HPI Psychiatric: as per Subjective / HPI Endocrine: as per Subjective / HPI Hematologic / Lymphatic: as per Subjective / HPI Allergy / Immunological: as per Subjective / HPI Physical Exam Constitutional: WD/WN, vitals as above Eyes: + anicteric sclerae; no conjunctival abnormality ENMT: external ear and nose normal, oropharynx normal Neck: trachea midline Respiratory: normal respiratory effort and able to speak in complete sentences; does not use accessory muscles Musculoskeletal: Head/Neck/Chest: head atraumatic Gait: normal gait Skin: no rashes and no lesions Psychiatric: A+Ox3, euthymic affect Results & Data ([facility]) Vital Signs (Past 12 Hours) Vital Signs Temp Pulse Resp BP Pulse Ox 05/09/20 07:18 36.7 C 61 16 179/81 H 94 PG Care Time/CCT Total # of Minutes Spent Total Time Spent with Patient: Total time spent is greater than 50% in coordination of care (as documented) at patient's floor/unit and/or counseling patient: Coding Level of Care Code 47047 Subseq Hosp Care Lvl 1 Diagnoses Multiple drug allergies Z88.9 Acute UTI N39.0
[2020-05-09] MEDS ORDERED: diphenhydrAMINE 50 MG/ML VIAL IV PRN (14:51)
[2020-05-09] MEDS ORDERED: EPINEPHrine INJ 1 MG/ML AMP IM PRN (14:54)
[2020-05-09] MEDS ORDERED: ALBUTEROL 0.083% NEBU SOLN 3 ML VIAL INH PRN (14:57)
[2020-05-09] MEDS ORDERED: TRIMETH IV SCH ×3 (15:00→23:00)
[2020-05-09] MEDS ORDERED: SULFA IV SCH ×3 (15:00→23:00)
[2020-05-09] MEDS ORDERED: DEXTROSE 5% IV SCH ×3 (15:00→23:00)
--- NOTE | 2020-05-09 16:13 | Critical Care Consultation ---
Date of Consultation May 09, 2020 Assessment & Plan (1) Multiple drug allergies: Bactrim desensitization protocol will be initialized in the ICU. Appreciate allergy and immunology input and assistance. We will closely monitor with EpiPen nearby. We will treat mild allergic symptoms with a nonsedating antihistamine as recommended by allergy. If Bactrim desensitization prove successful, will treat UTI with Bactrim. Urology is following the patient. Other chronic issues including coronary artery disease and atrial fibrillation are controlled at this time. Continue home medications. (2) Acute UTI: (3) Presence of suprapubic catheter: (4) Aortic stenosis: (5) CKD (chronic kidney disease) stage 3, GFR 30-59 ml/min: (6) Atrial fibrillation: History of Present Illness Reason for Consultation: Bactrim desensitization in ICU monitoring Attending Physician: Negro Lock DO History of Present Illness 80-year-old male with a past medical history of CKD stage III, aortic stenosis, hypothyroidism, hypertension, coronary artery disease, history of pacemaker placement and suprapubic catheter who is currently in the hospital due to urinary tract infection with stenotrophomonas maltophilia. Infectious disease recommending treatment with Bactrim as this is the only option to treat his urinary tract infection at this time. He has a history of unknown allergy to sulfonamide antibiotics. The reports that there may be a history of possible swelling in his tongue 30 years ago after being given an oral dose of sulfonamide antibiotics. He is being admitted to the ICU for Bactrim desensitization and close ICU monitoring. Pharmacy has been consulted as well. Patient is currently hemodynamically stable. No respiratory issues at present. Allergies Allergy/AdvReac Type Severity Reaction Status Date / Time captopril Allergy Severe ANAPHYLAXIS Verified 05/05/20 21:21 Iodinated Contrast Media Allergy Severe ANAPHYLAXIS Verified 05/05/20 21:21 levofloxacin Allergy Severe ANAPHYLAXIS Verified 05/05/20 21:22 morphine Allergy Severe Anaphylaxis Verified 05/05/20 21:21 oxaprozin Allergy Severe ANAPHYLAXIS Verified 05/05/20 21:22 Sulfa (Sulfonamide Allergy Severe Anaphylaxis Verified 05/05/20 21:22 Antibiotics) torsemide Allergy Severe ANAPHYLAXIS Verified 05/05/20 21:21 hydrocodone Allergy Mild RASH Verified 05/05/20 21:22 Home Medications Medication Instructions Recorded Confirmed Type epinephrine [EpiPen] 0.3 mg IM UD PRN 06/05/18 05/05/20 History acetaminophen 650 mg PO Q4H PRN #30 tab 08/14/19 05/05/20 Rx carvedilol 3.125 mg tablet 3.125 mg PO BID #180 tab 10/04/19 05/05/20 Rx ferrous sulfate 325 mg (65 mg 325 mg PO BIDM #180 tab 10/04/19 05/05/20 Rx iron) tablet,delayed release folic acid 1 mg tablet 1 mg PO QAM #90 tab 10/04/19 05/05/20 Rx levothyroxine 100 mcg tablet 100 mcg PO HS #90 tab 10/04/19 05/05/20 Rx simvastatin 80 mg tablet 80 mg PO HS #90 tab 10/04/19 05/05/20 Rx gabapentin 300 mg capsule 300 mg PO HS #90 cap 11/03/19 05/05/20 Rx bethanechol chloride 50 mg PO QID 12/24/19 05/05/20 History donepezil 10 mg tablet 10 mg PO HS #90 tab 02/06/20 05/05/20 Rx memantine 10 mg tablet 10 mg PO BID #180 tab 02/06/20 05/05/20 Rx bupropion HCl 100 mg PO QAM 04/13/20 05/05/20 History citalopram 10 mg PO QAM 04/13/20 05/05/20 History famotidine [Pepcid] 40 mg PO QAM 04/13/20 05/05/20 History fluconazole 100 mg PO QAM 04/13/20 05/05/20 History apixaban 2.5 mg tablet 2.5 mg PO BID #180 tab 04/20/20 05/05/20 Rx trimethoprim 100 mg tablet 100 mg PO Q12H 10 Days #20 tab 04/26/20 05/05/20 Rx isosorbide mononitrate 60 mg 60 mg PO QAM #90 tab 04/30/20 05/05/20 Rx tablet,extended release 24 hr oxybutynin chloride 5 mg PO Q8H PRN #14 tab 04/30/20 05/05/20 Rx phenazopyridine [Pyridium] 200 mg PO Q8H PRN #10 tab 04/30/20 05/05/20 Rx tramadol 50 mg PO TID PRN 05/05/20 05/05/20 History tamsulosin 0.4 mg capsule 0.4 mg PO QPM #90 cap 05/07/20 Rx Patient History Medical History Anxiety and depression Aortic stenosis Mild (MG 11 mmHg, UZMA 1.1 cm2) per 11/2015 ECHO. Valve not well visualized on echo 03/22/20. Atrial fibrillation dx 2017 >on Eliquis, no cardioversions BPH w urinary obs/LUTS CAD (coronary artery disease), [place] coronary artery S/P BMS to OM (1997). Caths also 2006, 2008 and 2013, no stents placed. Most recent cath in 2013 showed no angiographically significant stenosis other than 20-30% in-stent restenosis of OM. Cardiac pacemaker in situ Implanted 2008 (03/13 [facility]). [facility] [employer]fo. Replaced 2016. > Last pacer check 04/10/20 [facility] > Dr. Hodge Chronic indwelling Michel catheter Chronic pain CKD (chronic kidney disease) stage 3, GFR 30-59 ml/min Dementia Dyslipidemia GERD (gastroesophageal reflux disease) controlled History of kidney stones History of [place] (myocardial infarction) 1997 HTN (hypertension), benign Hx of gastric ulcer Hypothyroidism Iron deficiency anemia Low blood pressure pt's reports this has been happening lately, last reading was 92/65 at cardiology visit on 04/10/20. Cardiology notes 'clinically stable.' Sleep apnea NO DEVICE Stage 3b chronic kidney disease Surgical History H/O total knee replacement RIGHT/LEFT History of cardiac cath MULTIPLE WITH TOTAL 4 STENTS > LAST ONE 3 YRS AGO > [facility] History of cataract surgery B/L History of colonoscopy History of lithotripsy History of lumbar fusion History of prostate surgery PARTIAL PROSTECTOMY History of thyroidectomy History of tooth extraction all teeth S/P cystoscopy with ureteral stent placement 12/29/19 Dr. William Medrano- Cystoscopy, Bilateral retrograde pyelogram, Bilateral ureteral stent exchange, Left aspiration and culture S/P TURP S/P ureteral stent placement Cysto, B/L RPG, right ureteroscopy, stent exchange: 07/06/18: LMA#5 at [facility] CYSTO STENT EXCHANGE 11/2018 Family History Father Diabetes Mother Coronary heart disease Hypertension Brother Seizure Denies family history of Ovarian cancer Prostate cancer Myocardial infarction Breast cancer Colorectal cancer Social History Smoking Status: Former smoker Tobacco Type: Cigarettes Smoking End Date: ; Second Hand Exposure: No; Hx Alcohol Use: No Hx Substance Use: No Preferred Language: Chinese Communication Ability: Effective Visual Impairment: No Limitations Merchandising Intern Required: No Beliefs That Will Affect Care: None marital status: Current Living Situation: Spouse and Family Current Living Situation Comment: per RN report from ER, pt lives with and daughter current occupational status: retired How many Children do You have: 3 Other Information That Helps Us Care for You: No Feels Safe at Home: Yes Safety Concerns: Feels Safe At This Time Childhood Exposure to Second-Hand Smoke: No caffeine: Yes (Coffee 3 per day.) during the past year weight has: remained stable Dental Care, Regularly: No Physical Activity Frequency: Does not Exercise Seatbelt Use: always Sunscreen Use: No Assistive Devices: None Review of Systems Review of Systems: All systems reviewed & are unremarkable except as noted in HPI & below Physical Exam Constitutional: WD/WN, vitals as above Eyes: PERRL, conjunctivae normal, anicteric sclerae ENMT: external ear and nose normal, oropharynx normal Respiratory: normal respiratory effort, lungs clear to auscultation Cardiovascular: RRR, no murmur, no edema Gastrointestinal (Abdomen): normal bowel sounds, soft, nontender, no hepatosplenomegaly Musculoskeletal: no cyanosis or clubbing, extremities motor strength 5/5 Skin: no rashes, warm and dry Neurologic: PERRL, EOMI, accommodation nl, no face palsy, no dysarthria Psychiatric: A+Ox3, euthymic affect Results & Data Results & Data ([facility]) Vital Signs (Past 12 Hours) Vital Signs Temp Pulse Pulse Resp BP BP Pulse Ox 05/09/20 16:00 61 16 178/98 H 93 05/09/20 15:57 78 168/96 H 05/09/20 15:45 98.2 F 59 L 18 173/93 H 93 05/09/20 07:18 98.1 F 61 16 179/81 H 94 I reviewed the vital signs, labs and imaging Coding Level of Care Code 05175 Inpt Consult Level 4 Diagnoses Multiple drug allergies Z88.9 Acute UTI N39.0 Presence of suprapubic catheter Z93.59 Aortic stenosis I35.0 CKD (chronic kidney disease) stage 3, GFR 30-59 ml/min N18.30 Chronic kidney disease stage 3 subtype: unspecified whether 3a or 3b Atrial fibrillation I48.91 Atrial fibrillation type: unspecified (1) CKD (chronic kidney disease) stage 3, GFR 30-59 ml/min Chronic kidney disease stage 3 subtype: unspecified whether 3a or 3b Qualified Code(s): N18.30 - Chronic kidney disease, stage 3 unspecified (2) Atrial fibrillation Atrial fibrillation type: unspecified Qualified Code(s): I48.91 - Unspecified atrial fibrillation
[2020-05-09] MEDS ORDERED: hydrALAZINE HCL 20 MG/ML VIAL IV PRN (16:39)
--- NOTE | 2020-05-09 16:41 | Hospitalist Progress Note ---
Date of Service May 09, 2020 Assessment & Plan (1) Recurrent UTI: growing Stenotrophomonas, sensitive to Bactrim and Levaquin he has allergy to Bactrim and Levaquin, listed as anaphylactic reactions confirmed with his and daughter that he had a bad reaction, this was in the 80's d/w Dr. Arcos, will proceed with desensitization with Bactrim moved to ICU today, protocol initiated, tolerating well will take 36 hours, can be moved to the floor once he tolerates a full dose (2) Complicated UTI (urinary tract infection): See above (3) Presence of suprapubic catheter: See above Consult urology - Dr. 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: Continue levothyroxine sodium 100 mcg daily (5) Anxiety and depression: Anxiety and depression/dementia- Continue bupropion, citalopram, donepezil, and memantine (6) CAD (coronary artery disease), [place] coronary artery: CAD/hypertension/atrial fibrillation- Continue apixaban, carvedilol, and isosorbide mononitrate (7) HTN (hypertension), benign: See above BP quite high today added Hydralazine PRN for SBP > 170 (8) Stage 3b chronic kidney disease: Creatinine remains stable at 1.9, making urine, electrolytes stable Follow serially with labs in the a.m. (9) Dyslipidemia: Continue simvastatin 80 mg at bedtime (10) GERD (gastroesophageal reflux disease): Continue famotidine (11) S/P ureteral stent placement: See above (12) Atrial fibrillation: See above (13) Chronic constipation: Fecal retention with distention 9 cm similar to previous. Placing on IV fluids as noted above. Dulcolax suppository PRN will add Miralax BID Admission and Anticipated Discharge Date Admission Date: May 06, 2020 Subjective patient feeling well, tolerating the Bactrim desensitization challenge thus far blood pressure elevated, 180-190 systolic eating well today, no dyspnea, no cough, no fever/chills discussed with ICU and with allergy, appreciate their assistance with the patient spoke with his over the phone, got consent for the protocol she understands the risk of anaphylaxis, throat swelling, respiratory failure and possible need for intubation Review of Systems Review of Systems: All systems reviewed & are unremarkable except as noted in Subjective Constitutional: no fever, no chills, no sweats, no fatigue and no weakness Respiratory: no cough and no dyspnea Cardiovascular: no chest pain, no syncope and no edema Gastrointestinal: no abdominal pain, no nausea, no vomiting, no constipation and no diarrhea/loose stools Physical Exam Constitutional: well developed, well nourished, + frail appearing and coope rative; no acute distress Neck: trachea midline, no thyromegaly Respiratory: normal respiratory effort, lungs clear to auscultation Cardiovascular: RRR, no murmur, no edema Gastrointestinal (Abdomen): normal bowel sounds, soft, nontender, no hepatosplenomegaly Inspection/Auscultation: + abdominal surgical drain present (suprapubic catheter in place) Musculoskeletal: no cyanosis or clubbing, extremities motor strength 5/5 Skin: no rashes, warm and dry Neurologic: patellar DTR's 2+ bilat, sensation intact and PERRL, EOMI, accommodation nl, no face palsy, no dysarthria Psychiatric: A+Ox3, euthymic affect Lymphatic: no cervical or axillary lymphadenopathy Results & Data Results & Data ([facility]) Vital Signs (Past 12 Hours) Vital Signs Temp Pulse Pulse Resp BP BP Pulse Ox 05/09/20 16:19 59 L 17 183/94 H 95 05/09/20 16:00 61 16 178/98 H 93 05/09/20 15:57 78 168/96 H 05/09/20 15:45 36.8 C 59 L 18 173/93 H 93 05/09/20 07:18 36.7 C 61 16 179/81 H 94 Medications Administered Current Inpatient Medications Acetaminophen (Acetaminophen 325 Mg Tab) 650 mg PO Q4H PRN PRN Reason: Pain or Fever Stop: 06/05/20 03:07 Last Admin: 05/06/20 10:11 Dose: 650 mg Documented by: Acetaminophen (Acetaminophen 325 Mg Tab) 650 mg PO Q4H PRN PRN Reason: pain/fever Stop: 06/05/20 03:07 Albuterol (Albuterol 0.083% Nebu Soln 3 Ml Vial) 2.5 mg INH ONCE PRN PRN Reason: Shortness Of Breath Apixaban (Apixaban 2.5 Mg Tab) 2.5 mg PO BID [facility] Stop: 06/05/20 10:44 Last Admin: 05/09/20 07:28 Dose: 2.5 mg Documented by: Bethanechol Chloride (Bethanechol Chl 25 Mg Tab) 50 mg PO QID [facility] Stop: 06/05/20 08:59 Last Admin: 05/09/20 12:44 Dose: 50 mg Documented by: Bisacodyl (Bisacodyl 10 Mg Supp) 10 mg FL DAILY PRN PRN Reason: Constipation Stop: 06/05/20 03:07 Bupropion HCl (Bupropion Sr 100 Mg Tabcr) 100 mg PO [facility] Stop: 06/05/20 08:59 Last Admin: 05/09/20 07:30 Dose: 100 mg Documented by: Carvedilol (Carvedilol 3.125 Mg Tab) 3.125 mg PO BID [facility] Stop: 06/05/20 08:59 Last Admin: 05/09/20 07:28 Dose: 3.125 mg Documented by: Citalopram Hydrobromide (Citalopram 20 Mg Tab) 10 mg PO [facility] Stop: 06/05/20 08:59 Last Admin: 05/09/20 07:29 Dose: 10 mg Documented by: Diphenhydramine HCl (Diphenhydramine 50 Mg/Ml Vial) 50 mg IV ONCE PRN PRN Reason: SKIN SYMPTOMS Donepezil HCl (Donepezil Hcl 10 Mg Tab) 10 mg PO [facility] Stop: 06/05/20 20:59 Last Admin: 05/08/20 20:33 Dose: 10 mg Documented by: Epinephrine HCl (Epinephrine Inj 1 Mg/Ml Amp) 0.3 mg IM Q5M PRN PRN Reason: SEVERE ALLERGIC RXN Famotidine (Famotidine 40 Mg Tablet) 40 mg PO [facility] Stop: 06/05/20 08:59 Last Admin: 05/09/20 07:29 Dose: 40 mg Documented by: Ferrous Sulfate (Ferrous Sulfate 325 Mg Tab) 325 mg PO BIDM [facility] Stop: 06/05/20 07:59 Last Admin: 05/09/20 07:28 Dose: 325 mg Documented by: Folic Acid (Folic Acid 1 Mg Tab) [facility] Stop: 06/05/20 08:59 Last Admin: 05/09/20 07:29 Dose: 1 mg Documented by: Gabapentin (Gabapentin 300 Mg Cap) 300 mg PO [facility] Stop: 06/05/20 20:59 Last Admin: 05/08/20 20:34 Dose: 300 mg Documented by: Hydralazine HCl (Hydralazine Hcl 20 Mg/Ml Vial) 10 mg IV Q6 PRN PRN Reason: Blood Pressure - High Stop: 06/08/20 16:38 Trimethoprim/Sulfamethoxazole (4 mg/ Dextrose) 250 mls @ 8 mls/hr IV .Q24H [facility]; Protocol Stop: 05/10/20 06:44 Last Titration: 05/09/20 16:34 Dose: 64 mls/hr Documented by: Trimethoprim/Sulfamethoxazole (160 mg/ Dextrose) 250 mls @ 10 mls/hr IV .Q24H [facility]; Protocol Stop: 05/10/20 01:44 Trimethoprim/Sulfamethoxazole (160 mg/ Dextrose) 250 mls @ 200 mls/hr IV .Q1H15M [facility]; Protocol Stop: 05/09/20 20:44 Trimethoprim/Sulfamethoxazole (160 mg/ Dextrose) 250 mls @ 400 mls/hr IV .Q38M [facility]; Protocol Stop: 05/10/20 01:15 Trimethoprim/Sulfamethoxazole (320 mg/ Dextrose) 500 mls @ 400 mls/hr IV .Q1H15M [facility]; Protocol Stop: 05/10/20 10:14 Isosorbide Mononitrate (Isosorbide [place] Extended Rel 60 Mg Tabcr) 60 mg PO QAM [facility] Stop: 06/05/20 08:59 Last Admin: 05/09/20 07:30 Dose: 60 mg Documented by: Levothyroxine Sodium (Levothyroxine Sodium 112 Mcg Tablet) 112 mcg PO DAILYBB [facility] Stop: 06/06/20 06:29 Last Admin: 05/09/20 05:33 Dose: 112 mcg Documented by: Memantine (Memantine Hcl 10 Mg Tab) 10 mg PO BID [facility] Stop: 06/05/20 08:59 Last Admin: 05/09/20 07:28 Dose: 10 mg Documented by: Ondansetron HCl (Ondansetron Inj 2 Mg/Ml 2 Ml Vial) 4 mg IV Q6H PRN PRN Reason: Nausea Stop: 06/05/20 03:07 Oxybutynin Chloride (Oxybutynin Chloride 5 Mg Tab) 5 mg PO Q8H PRN PRN Reason: bladder spasms Stop: 06/05/20 03:07 Phenazopyridine HCl (Phenazopyridine Hcl 200 Mg Tab) 200 mg PO Q8H PRN PRN Reason: pain Stop: 06/05/20 03:07 Simvastatin (Simvastatin 80 Mg Tab) 80 mg PO HS [facility] Stop: 06/05/20 20:59 Last Admin: 05/08/20 20:35 Dose: 80 mg Documented by: Tamsulosin HCl (Tamsulosin Hcl 0.4 Mg Cap) 0.4 mg PO QPM [facility] Stop: 06/05/20 20:59 Last Admin: 05/08/20 20:34 Dose: 0.4 mg Documented by: Tramadol HCl (Tramadol Hcl 50 Mg Tablet) 50 mg PO TID PRN PRN Reason: Moderate Pain Stop: 06/05/20 03:07 Last Admin: 05/06/20 23:18 Dose: 50 mg Documented by: PG Care Time/CCT Total # of Minutes Spent Total Time Spent with Patient: Total time spent is greater than 50% in coordination of care (as documented) at patient's floor/unit and/or counseling patient: Coding Level of Care Code 60733 Subseq Hosp Care Lvl 2 Diagnoses Recurrent UTI N39.0 Complicated UTI (urinary tract infection) N39.0 Presence of suprapubic catheter Z93.59 Hypothyroidism E03.9 Hypothyroidism type: acquired Anxiety and depression F41.9; F32.9 CAD (coronary artery disease), [place] coronary artery I25.10 Associated angina: without angina [place] vs. transplanted heart: [place] heart HTN (hypertension), benign I10 Stage 3b chronic kidney disease N18.32 Dyslipidemia E78.5 GERD (gastroesophageal reflux disease) K21.9 Esophagitis presence: esophagitis presence not specified S/P ureteral stent placement Z96.0 Atrial fibrillation I48.91 Atrial fibrillation type: unspecified Chronic constipation K59.09 (1) Atrial fibrillation Atrial fibrillation type: unspecified Qualified Code(s): I48.91 - Unspecified atrial fibrillation (2) Hypothyroidism Hypothyroidism type: acquired Qualified Code(s): E03.9 - Hypothyroidism, unspecified (3) CAD (coronary artery disease), [place] coronary artery Associated angina: without angina [place] vs. transplanted heart: [place] heart Qualified Code(s): I25.10 - Atherosclerotic heart disease of [place] coronary artery without angina pectoris (4) GERD (gastroesophageal reflux disease) Esophagitis presence: esophagitis presence not specified Qualified Code(s): K21.9 - Gastro-esophageal reflux disease without esophagitis
[2020-05-09] MEDS ORDERED: hydrALAZINE HCL 20 MG/ML VIAL ONE (16:47)
[2020-05-09] MEDS: DEXTROSE 5% IV SCH ×2 (17:26→17:28)
[2020-05-09] MEDS: SULFA IV SCH ×2 (17:26→17:28)
[2020-05-09] MEDS: TRIMETH IV SCH ×2 (17:26→17:28)
[2020-05-09] MEDS: traMADol HCL 50 MG TABLET PO PRN (19:09)
[2020-05-09] MEDS ORDERED: LABETALOL HCL IV 5 MG/ML 20ML IV STA (19:17)
[2020-05-09] MEDS: GABAPENTIN 300 MG CAP PO SCH (21:04)
[2020-05-09] MEDS: TAMSULOSIN HCL 0.4 MG CAP PO SCH (21:04)
[2020-05-09] MEDS: DONEPEZIL HCL 10 MG TAB PO SCH (21:04)
[2020-05-09] MEDS: SIMVASTATIN 80 MG TAB PO SCH (21:04)
[2020-05-09] MEDS: PHENAZOPYRIDINE HCL 200 MG TAB PO PRN (23:09)
[2020-05-10] MEDS ORDERED: TRIMETH IV SCH ×4 (00:45→12:00)
[2020-05-10] MEDS ORDERED: SULFA IV SCH ×4 (00:45→12:00)
[2020-05-10] MEDS ORDERED: DEXTROSE 5% IV SCH ×4 (00:45→12:00)
[2020-05-10 04:33] LABS: Hematocrit (blood only) 36.3 % (42-52); Hemoglobin 12.2 g/dL (14.0-18.0); Mean Corpuscular Hemoglobin 31.1 pg (25-34); Mean Corpuscular Hgb Conc 33.6 g/dL (32-36); Mean Corpuscular Volume 92.6 fL (80-100); Mean Platelet Volume 10.3 fL (7.4-10.4); Platelet Count 257 K/uL (130-400); RDW Coefficient of Variation 13.6 % (11.5-14.5); RDW Standard Deviation 46.2 fL (36.4-46.3); Red Blood Count 3.92 M/uL (4.7-6.1); White Blood Count 8.47 K/uL (4.8-10.8)
[2020-05-10 04:50] LABS: BUN Creatinine Ratio 13.1 (10-20); Calcium 8.3 mg/dl (8.5-10.1); Creatinine Clr Calc Pharmacy 32.8 ml/min; Est GFR (African American) 42.3; Est GFR (Non-African American) 36.5; Magnesium 2.3 mg/dl (1.8-2.4); Potassium 3.1 mmol/L (3.5-5.1)
[2020-05-10] MEDS ORDERED: POTASSIUM CHLORIDE 20 MEQ/15 ML UDC PO STA ×2 (05:28→07:51)
[2020-05-10] MEDS: LEVOTHYROXINE SODIUM 112 MCG TABLET PO SCH (05:49)
[2020-05-10 06:05] LABS: Phosphorus 2.6 mg/dl (2.5-4.9)
--- NOTE | 2020-05-10 07:50 | Critical Care Progress Note ---
Date of Service May 10, 2020 Assessment & Plan (1) Multiple drug allergies: Continue Bactrim desensitization protocol. Patient has tolerated this well without any issue at this time. Appreciate allergy and immunology input and assistance. We will closely monitor with EpiPen nearby. We will treat mild allergic symptoms with a nonsedating antihistamine as recommended by allergy. If Bactrim desensitization proves successful, will treat UTI with Bactrim. Urology is following the patient. Other chronic issues including coronary artery disease and atrial fibrillation are controlled at this time. Continue home medications. (2) Acute UTI: (3) Presence of suprapubic catheter: (4) Aortic stenosis: (5) CKD (chronic kidney disease) stage 3, GFR 30-59 ml/min: (6) Atrial fibrillation: Admission and Anticipated Discharge Date Admission Date: May 06, 2020 Subjective Patient seen and examined this morning. No significant issues overnight. He did have mild hypoxia and was placed on 3 L of oxygen. He is currently on room air and saturating 95%. He says that he feels slightly short of breath this morning. He denies any chest pain. No fevers or chills. Review of Systems Review of Systems: All systems reviewed & are unremarkable except as noted in HPI & below Physical Exam Constitutional: WD/WN, vitals as above Eyes: PERRL, conjunctivae normal, anicteric sclerae Respiratory: normal respiratory effort, lungs clear to auscultation Cardiovascular: RRR, no murmur, no edema Gastrointestinal (Abdomen): normal bowel sounds, soft, nontender, no hepatosplenomegaly Musculoskeletal: no cyanosis or clubbing, extremities motor strength 5/5 Skin: no rashes, warm and dry Neurologic: PERRL, EOMI, accommodation nl, no face palsy, no dysarthria Psychiatric: A+Ox3, euthymic affect Results & Data Results & Data ([facility]) Vital Signs (Past 12 Hours) Vital Signs Temp Pulse Resp BP Pulse Ox 05/10/20 06:01 56 L 17 133/66 99 05/10/20 05:46 55 L 15 97/53 L 98 05/10/20 05:31 56 L 17 111/57 L 97 05/10/20 05:16 56 L 16 105/54 L 96 05/10/20 05:00 53 L 14 91/52 L 98 05/10/20 04:46 54 L 22 111/51 L 97 05/10/20 04:31 54 L 18 114/58 L 97 05/10/20 04:16 53 L 19 108/66 96 05/10/20 04:00 52 L 19 133/69 97 05/10/20 03:57 97.9 F 05/10/20 03:45 53 L 16 109/54 L 97 05/10/20 03:31 61 22 116/60 90 05/10/20 03:15 53 L 17 103/60 98 05/10/20 03:00 54 L 17 115/61 98 05/10/20 02:45 53 L 18 116/68 96 05/10/20 02:30 56 L 15 138/71 98 05/10/20 02:15 64 12 142/67 H 91 05/10/20 02:00 55 L 17 112/60 93 05/10/20 01:45 55 L 17 119/60 92 05/10/20 01:30 57 L 12 111/60 92 05/10/20 01:15 60 14 110/58 L 92 05/10/20 01:00 59 L 12 108/64 94 05/10/20 00:47 63 20 122/74 95 05/10/20 00:15 59 L 11 L 149/80 H 94 05/10/20 00:00 58 L 18 145/76 H 94 05/09/20 23:45 58 L 18 143/75 H 93 05/09/20 23:32 97.9 F 05/09/20 23:30 58 L 13 158/79 H 93 05/09/20 23:18 65 20 158/101 H 95 05/09/20 23:00 60 19 164/78 H 93 05/09/20 22:45 61 14 177/81 H 94 05/09/20 22:31 63 19 150/83 H 94 05/09/20 22:15 68 17 147/98 H 95 05/09/20 22:00 60 20 164/80 H 92 05/09/20 21:45 59 L 19 146/90 H 94 05/09/20 21:30 58 L 19 165/83 H 94 05/09/20 21:15 61 21 191/92 H 95 05/09/20 21:00 63 17 159/85 H 96 05/09/20 20:45 62 10 L 170/84 H 94 05/09/20 20:30 59 L 13 167/83 H 93 05/09/20 20:15 58 L 11 L 149/79 H 95 05/09/20 20:00 61 10 L 151/81 H 94 Vital signs, labs and imaging reviewed Coding Level of Care Code 49063 Subseq Hosp Care Lvl 2 Diagnoses Multiple drug allergies Z88.9 Acute UTI N39.0 Presence of suprapubic catheter Z93.59 Aortic stenosis I35.0 CKD (chronic kidney disease) stage 3, GFR 30-59 ml/min N18.30 Chronic kidney disease stage 3 subtype: unspecified whether 3a or 3b Atrial fibrillation I48.91 Atrial fibrillation type: unspecified (1) CKD (chronic kidney disease) stage 3, GFR 30-59 ml/min Chronic kidney disease stage 3 subtype: unspecified whether 3a or 3b Qualified Code(s): N18.30 - Chronic kidney disease, stage 3 unspecified (2) Atrial fibrillation Atrial fibrillation type: unspecified Qualified Code(s): I48.91 - Unspecified atrial fibrillation
[2020-05-10] MEDS: APIXABAN 2.5 MG TAB PO SCH ×2 (08:26→21:15)
[2020-05-10] MEDS: FERROUS SULFATE 325 MG TAB PO SCH ×2 (08:26→17:43)
[2020-05-10] MEDS: MEMANTINE HCL 10 MG TAB PO SCH ×2 (08:26→21:18)
[2020-05-10] MEDS: buPROPion SR 100 MG TABCR PO SCH (08:26)
[2020-05-10] MEDS: FOLIC ACID 1 MG TAB PO SCH (08:29)
[2020-05-10] MEDS: FAMOTIDINE 40 MG TABLET PO SCH (08:29)
[2020-05-10] MEDS: ISOSORBIDE MONO EXTENDED REL 60 MG TABCR PO SCH (08:30)
[2020-05-10] MEDS: CITALOPRAM 20 MG TAB PO SCH (08:30)
[2020-05-10] MEDS: POLYETHYLENE (MIRALAX) 17 GM PACK PO SCH ×2 (08:31→21:16)
[2020-05-10] MEDS: BETHANECHOL CHL 25 MG TAB PO SCH (08:35)
--- NOTE | 2020-05-10 08:49 | Hospitalist Progress Note ---
Date of Service May 10, 2020 Assessment & Plan (1) Recurrent UTI: growing Stenotrophomonas, sensitive to Bactrim and Levaquin he has allergy to Bactrim and Levaquin, listed as anaphylactic reactions confirmed with his and daughter that he had a bad reaction, this was in the 80's d/w Dr. Arcos, will proceed with desensitization with Bactrim, completed this today can transfer out of ICU for complicated UTI with the suprapubic catheter, will treat for at least 10 days can complete at home (2) Complicated UTI (urinary tract infection): See above (3) Presence of suprapubic catheter: See above Consult urology - Dr. 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: Continue levothyroxine sodium 100 mcg daily (5) Anxiety and depression: Anxiety and depression/dementia- Continue bupropion, citalopram, donepezil, and memantine (6) CAD (coronary artery disease), [place] coronary artery: CAD/hypertension/atrial fibrillation- Continue apixaban, carvedilol, and isosorbide mononitrate (7) HTN (hypertension), benign: See above BP quite high today added Hydralazine PRN for SBP > 170 (8) Stage 3b chronic kidney disease: Creatinine remains stable at 1.7, making urine, electrolytes stable Follow serially with labs in the a.m. (9) Dyslipidemia: Continue simvastatin 80 mg at bedtime (10) GERD (gastroesophageal reflux disease): Continue famotidine (11) S/P ureteral stent placement: See above (12) Atrial fibrillation: See above (13) Chronic constipation: Fecal retention with distention 9 cm similar to previous. Placing on IV fluids as noted above. Dulcolax suppository PRN will add Miralax BID Admission and Anticipated Discharge Date Admission Date: May 06, 2020 Subjective tolerating Bactrim very well, no acute issues eating well no dyspnea, no throat swelling d/w Dr. Arcos, he can move to floor this afternoon he will set him up with outpatient follow up to test other allergies labs reviewed, Cr 1.7 and K is 3.1, oral replacement given this morning Review of Systems Review of Systems: All systems reviewed & are unremarkable except as noted in Subjective Physical Exam Constitutional: well developed, well nourished, + frail appearing and cooperative; no acute distress Neck: trachea midline, no thyromegaly Respiratory: normal respiratory effort, lungs clear to auscultation Cardiovascular: RRR, no murmur, no edema Gastrointestinal (Abdomen): normal bowel sounds, soft, nontender, no hepatosplenomegaly Inspection/Auscultation: + abdominal surgical drain presen t (suprapubic catheter in place) Musculoskeletal: no cyanosis or clubbing, extremities motor strength 5/5 Skin: no rashes, warm and dry Neurologic: patellar DTR's 2+ bilat, sensation intact and PERRL, EOMI, accommodation nl, no face palsy, no dysarthria Psychiatric: A+Ox3, euthymic affect Lymphatic: no cervical or axillary lymphadenopathy Results & Data Results & Data ([facility]) Vital Signs (Past 12 Hours) Vital Signs Temp Pulse Resp BP Pulse Ox 05/10/20 06:01 56 L 17 133/66 99 05/10/20 05:46 55 L 15 97/53 L 98 05/10/20 05:31 56 L 17 111/57 L 97 05/10/20 05:16 56 L 16 105/54 L 96 05/10/20 05:00 53 L 14 91/52 L 98 05/10/20 04:46 54 L 22 111/51 L 97 05/10/20 04:31 54 L 18 114/58 L 97 05/10/20 04:16 53 L 19 108/66 96 05/10/20 04:00 52 L 19 133/69 97 05/10/20 03:57 36.6 C 05/10/20 03:45 53 L 16 109/54 L 97 05/10/20 03:31 61 22 116/60 90 05/10/20 03:15 53 L 17 103/60 98 05/10/20 03:00 54 L 17 115/61 98 05/10/20 02:45 53 L 18 116/68 96 05/10/20 02:30 56 L 15 138/71 98 05/10/20 02:15 64 12 142/67 H 91 05/10/20 02:00 55 L 17 112/60 93 05/10/20 01:45 55 L 17 119/60 92 05/10/20 01:30 57 L 12 111/60 92 05/10/20 01:15 60 14 110/58 L 92 05/10/20 01:00 59 L 12 108/64 94 05/10/20 00:47 63 20 122/74 95 05/10/20 00:15 59 L 11 L 149/80 H 94 05/10/20 00:00 58 L 18 145/76 H 94 05/09/20 23:45 58 L 18 143/75 H 93 05/09/20 23:32 36.6 C 05/09/20 23:30 58 L 13 158/79 H 93 05/09/20 23:18 65 20 158/101 H 95 05/09/20 23:00 60 19 164/78 H 93 05/09/20 22:45 61 14 177/81 H 94 05/09/20 22:31 63 19 150/83 H 94 05/09/20 22:15 68 17 147/98 H 95 05/09/20 22:00 60 20 164/80 H 92 05/09/20 21:45 59 L 19 146/90 H 94 05/09/20 21:30 58 L 19 165/83 H 94 05/09/20 21:15 61 21 191/92 H 95 05/09/20 21:00 63 17 159/85 H 96 Laboratory Results Laboratory Results - last 24 hr 05/09/20 05/10/20 05/10/20 21:10 04:04 04:04 WBC 8.47 RBC 3.92 L Hgb 12.2 L Hct 36.3 L MCV 92.6 MCH 31.1 MCHC 33.6 RDW Std Deviation 46.2 RDW Coeff of Curtis 13.6 Plt Count 257 MPV 10.3 Sodium 140 Potassium 3.1 L Chloride 110 H Carbon Dioxide 26 Anion Gap 4.0 BUN 23 H Creatinine 1.72 H Est Cr Clr Drug Dosing 32.8 Est GFR ( Amer) 42.3 Est GFR (Non-Af Amer) 36.5 BUN/Creatinine Ratio 13.1 Glucose 133 H POC Glucose 111 H Calcium 8.3 L Phosphorus 2.6 Magnesium 2.3 05/10/20 05:58 WBC RBC Hgb Hct MCV MCH MCHC RDW Std Deviation RDW Coeff of Curtis Plt Count MPV Sodium Potassium Chloride Carbon Dioxide Anion Gap BUN Creatinine Est Cr Clr Drug Dosing Est GFR ( Amer) Est GFR (Non-Af Amer) BUN/Creatinine Ratio Glucose POC Glucose 102 H Calcium Phosphorus Magnesium Medications Administered Current Inpatient Medications Acetaminophen (Acetaminophen 325 Mg Tab) 650 mg PO Q4H PRN PRN Reason: pain/fever Stop: 06/05/20 03:07 Albuterol (Albuterol 0.083% Nebu Soln 3 Ml Vial) 2.5 mg INH ONCE PRN PRN Reason: Shortness Of Breath Apixaban (Apixaban 2.5 Mg Tab) 2.5 mg PO BID [facility] Stop: 06/05/20 10:44 Last Admin: 05/10/20 08:26 Dose: 2.5 mg Documented by: Bethanechol Chloride (Bethanechol Chl 25 Mg Tab) 50 mg PO QID [facility] Stop: 06/05/20 08:59 Last Admin: 05/10/20 08:35 Dose: 50 mg Documented by: Bisacodyl (Bisacodyl 10 Mg Supp) 10 mg [place] DAILY PRN PRN Reason: Constipation Stop: 06/05/20 03:07 Bupropion HCl (Bupropion Sr 100 Mg Tabcr) 100 mg PO QAM [facility] Stop: 06/05/20 08:59 Last Admin: 05/10/20 08:26 Dose: 100 mg Documented by: Carvedilol (Carvedilol 3.125 Mg Tab) 3.125 mg PO BID [facility] Stop: 06/05/20 08:59 Last Admin: 05/09/20 21:04 Dose: 3.125 mg Documented by: Citalopram Hydrobromide (Citalopram 20 Mg Tab) 10 mg PO QAM [facility] Stop: 06/05/20 08:59 Last Admin: 05/10/20 08:30 Dose: 10 mg Documented by: Diphenhydramine HCl (Diphenhydramine 50 Mg/Ml Vial) 50 mg IV ONCE PRN PRN Reason: SKIN SYMPTOMS Donepezil HCl (Donepezil Hcl 10 Mg Tab) 10 mg PO HS [facility] Stop: 06/05/20 20:59 Last Admin: 05/09/20 21:04 Dose: 10 mg Documented by: Epinephrine HCl (Epinephrine Inj 1 Mg/Ml Amp) 0.3 mg IM Q5M PRN PRN Reason: SEVERE ALLERGIC RXN Famotidine (Famotidine 40 Mg Tablet) 40 mg PO QAM [facility] Stop: 06/05/20 08:59 Last Admin: 05/10/20 08:29 Dose: 40 mg Documented by: Ferrous Sulfate (Ferrous Sulfate 325 Mg Tab) 325 mg PO BIDM [facility] Stop: 06/05/20 07:59 Last Admin: 05/10/20 08:26 Dose: 325 mg Documented by: Folic Acid (Folic Acid 1 Mg Tab) 1 mg PO QAM [facility] Stop: 06/05/20 08:59 Last Admin: 05/10/20 08:29 Dose: 1 mg Documented by: Gabapentin (Gabapentin 300 Mg Cap) 300 mg PO [facility] Stop: 06/05/20 20:59 Last Admin: 05/09/20 21:04 Dose: 300 mg Documented by: Hydralazine HCl (Hydralazine Hcl 20 Mg/Ml Vial) 10 mg IV Q6 PRN PRN Reason: Blood Pressure - High Stop: 06/08/20 16:38 Trimethoprim/Sulfamethoxazole (320 mg/ Dextrose) 500 mls @ 400 mls/hr IV .Q1H15M [facility]; Protocol Stop: 05/10/20 12:59 Isosorbide Mononitrate (Isosorbide [place] Extended Rel 60 Mg Tabcr) 60 mg PO [facility] Stop: 06/05/20 08:59 Last Admin: 05/10/20 08:30 Dose: 60 mg Documented by: Levothyroxine Sodium (Levothyroxine Sodium 112 Mcg Tablet) [facility] Stop: 06/06/20 06:29 Last Admin: 05/10/20 05:49 Dose: 112 mcg Documented by: Memantine (Memantine Hcl 10 Mg Tab) 10 mg PO BID [facility] Stop: 06/05/20 08:59 Last Admin: 05/10/20 08:26 Dose: 10 mg Documented by: Ondansetron HCl (Ondansetron Inj 2 Mg/Ml 2 Ml Vial) 4 mg IV Q6H PRN PRN Reason: Nausea Stop: 06/05/20 03:07 Oxybutynin Chloride (Oxybutynin Chloride 5 Mg Tab) 5 mg PO Q8H PRN PRN Reason: bladder spasms Stop: 06/05/20 03:07 Phenazopyridine HCl (Phenazopyridine Hcl 200 Mg Tab) 200 mg PO Q8H PRN PRN Reason: pain Stop: 06/05/20 03:07 Last Admin: 05/09/20 23:09 Dose: 200 mg Documented by: Polyethylene Glycol (Polyethylene (Miralax) 17 Gm Pack) 17 gm PO BID [facility] Stop: 06/09/20 08:59 Last Admin: 05/10/20 08:31 Dose: 17 gm Documented by: Simvastatin (Simvastatin 80 Mg Tab) 80 mg PO HS [facility] Stop: 06/05/20 20:59 Last Admin: 05/09/20 21:04 Dose: 80 mg Documented by: Tamsulosin HCl (Tamsulosin Hcl 0.4 Mg Cap) 0.4 mg PO QPM [facility] Stop: 06/05/20 20:59 Last Admin: 05/09/20 21:04 Dose: 0.4 mg Documented by: Tramadol HCl (Tramadol Hcl 50 Mg Tablet) 50 mg PO TID PRN PRN Reason: Moderate Pain Stop: 06/05/20 03:07 Last Admin: 05/09/20 19:09 Dose: 50 mg Documented by: PG Care Time/CCT Total # of Minutes Spent Total Time Spent with Patient: Total time spent is greater than 50% in coordination of care (as documented) at patient's floor/unit and/or counseling patient: Coding Level of Care Code 23228 Subseq Hosp Care Lvl 2 Diagnoses Recurrent UTI N39.0 Complicated UTI (urinary tract infection) N39.0 Presence of suprapubic catheter Z93.59 Hypothyroidism E03.9 Hypothyroidism type: acquired Anxiety and depression F41.9; F32.9 CAD (coronary artery disease), [place] coronary artery I25.10 Associated angina: without angina [place] vs. transplanted heart: [place] heart HTN (hypertension), benign I10 Stage 3b chronic kidney disease N18.32 Dyslipidemia E78.5 GERD (gastroesophageal reflux disease) K21.9 Esophagitis presence: esophagitis presence not specified S/P ureteral stent placement Z96.0 Atrial fibrillation I48.91 Atrial fibrillation type: unspecified Chronic constipation K59.09 (1) Atrial fibrillation Atrial fibrillation type: unspecified Qualified Code(s): I48.91 - Unspecified atrial fibrillation (2) Hypothyroidism Hypothyroidism type: acquired Qualified Code(s): E03.9 - Hypothyroidism, unspecified (3) CAD (coronary artery disease), [place] coronary artery Associated angina: without angina [place] vs. transplanted heart: [place] heart Qualified Code(s): I25.10 - Atherosclerotic heart disease of [place] coronary artery without angina pectoris (4) GERD (gastroesophageal reflux disease) Esophagitis presence: esophagitis presence not specified Qualified Code(s): K21.9 - Gastro-esophageal reflux disease without esophagitis
[2020-05-10] MEDS: carvediloL 3.125 MG TAB PO SCH ×2 (09:58→21:14)
--- NOTE | 2020-05-10 12:36 | Allergy & Immunology Prog Note ---
Date of Service May 10, 2020 Assessment & Plan (1) Multiple drug allergies: Once he receives last dose, recommend observation for 2 hours, and if no problems, he can be moved out to the floor. The last step of that the sensation basically counts as a dose, so the next dose would be due as per his treatment regimen. As long as he received this medication at least once every 24 to 36 hours, that the sensation will be maintained and he will not react. If more than two days elapse without a dose, the desensitization will wear off and he could react if he gets any future doses. Once he completes the course of antibiotics, I would like to see him in clinic for Bactrim testing and possibly an oral challenge. If we are able to clear this from his allergy list, this would prevent future need for desensitization. I will arrange a follow-up visit about three weeks after discharge with the intent of Bactrim testing. (2) Acute UTI: Admission and Anticipated Discharge Date Admission Date: May 06, 2020 Subjective Patient was moved to the ICU yesterday to begin desensitization protocol. He has received all the doses except for last dose and tolerated these well. No rash, itching, difficulty breathing, drop in blood pressure. He did have some desaturations overnight, most likely secondary to his sleep apnea, and these did not correlate with when he received doses of the Bactrim. He will be receiving last step of the desensitization shortly. Review of Systems Review of Systems: All systems reviewed & are unremarkable except as noted in HPI & below Physical Exam Respiratory: normal respiratory effort, lungs clear to auscultation Cardiovascular: RRR, no murmur, no edema Skin: no rashes, warm and dry Results & Data ([facility]) Vital Signs (Past 12 Hours) Vital Signs Temp Pulse Resp BP Pulse Ox 05/10/20 09:46 57 L 13 98/51 L 96 05/10/20 09:31 57 L 13 91/52 L 92 05/10/20 09:16 56 L 19 83/55 L 93 05/10/20 09:01 61 17 120/58 L 96 05/10/20 08:31 59 L 15 94/57 L 94 05/10/20 08:01 60 18 106/60 95 05/10/20 08:00 62 05/10/20 07:45 63 19 143/73 H 95 05/10/20 07:31 69 31 H 111/73 99 05/10/20 07:15 63 23 145/66 H 93 05/10/20 07:00 56 L 12 110/58 L 97 05/10/20 06:01 56 L 17 133/66 99 05/10/20 05:46 55 L 15 97/53 L 98 05/10/20 05:31 56 L 17 111/57 L 97 05/10/20 05:16 56 L 16 105/54 L 96 05/10/20 05:00 53 L 14 91/52 L 98 05/10/20 04:46 54 L 22 111/51 L 97 05/10/20 04:31 54 L 18 114/58 L 97 05/10/20 04:16 53 L 19 108/66 96 05/10/20 04:00 52 L 19 133/69 97 05/10/20 03:57 36.6 C 05/10/20 03:45 53 L 16 109/54 L 97 05/10/20 03:31 61 22 116/60 90 05/10/20 03:15 53 L 17 103/60 98 05/10/20 03:00 54 L 17 115/61 98 05/10/20 02:45 53 L 18 116/68 96 05/10/20 02:30 56 L 15 138/71 98 05/10/20 02:15 64 12 142/67 H 91 05/10/20 02:00 55 L 17 112/60 93 05/10/20 01:45 55 L 17 119/60 92 05/10/20 01:30 57 L 12 111/60 92 05/10/20 01:15 60 14 110/58 L 92 05/10/20 01:00 59 L 12 108/64 94 05/10/20 00:47 63 20 122/74 95 PG Care Time/CCT Total # of Minutes Spent Total Time Spent with Patient: Total time spent is greater than 50% in coordination of care (as documented) at patient's floor/unit and/or counseling patient: Coding Level of Care Code 29915 Subseq Hosp Care Lvl 1 Diagnoses Multiple drug allergies Z88.9 Acute UTI N39.0
[2020-05-10] MEDS: DONEPEZIL HCL 10 MG TAB PO SCH (21:15)
[2020-05-10] MEDS: TAMSULOSIN HCL 0.4 MG CAP PO SCH (21:16)
[2020-05-10] MEDS: GABAPENTIN 300 MG CAP PO SCH (21:18)
[2020-05-10] MEDS: SULFAMETHOXAZOLE/TRIMETHOPRIM DS 800/160MG TAB PO SCH (21:19)
[2020-05-10] MEDS: SIMVASTATIN 80 MG TAB PO SCH (21:20)
[2020-05-11] MEDS: LEVOTHYROXINE SODIUM 112 MCG TABLET PO SCH (05:53)
[2020-05-11] MEDS: CITALOPRAM 20 MG TAB PO SCH (08:48)
[2020-05-11] MEDS: carvediloL 3.125 MG TAB PO SCH ×2 (08:48→20:57)
[2020-05-11] MEDS: FOLIC ACID 1 MG TAB PO SCH (08:48)
[2020-05-11] MEDS: ISOSORBIDE MONO EXTENDED REL 60 MG TABCR PO SCH (08:48)
[2020-05-11] MEDS: APIXABAN 2.5 MG TAB PO SCH ×2 (08:48→21:02)
[2020-05-11] MEDS: POLYETHYLENE (MIRALAX) 17 GM PACK PO SCH ×2 (08:49→21:10)
[2020-05-11] MEDS: FAMOTIDINE 40 MG TABLET PO SCH (08:49)
[2020-05-11] MEDS: buPROPion SR 100 MG TABCR PO SCH (08:49)
[2020-05-11] MEDS: MEMANTINE HCL 10 MG TAB PO SCH ×2 (08:49→20:58)
[2020-05-11] MEDS: SULFAMETHOXAZOLE/TRIMETHOPRIM DS 800/160MG TAB PO SCH ×2 (08:50→21:04)
[2020-05-11] MEDS: FERROUS SULFATE 325 MG TAB PO SCH ×2 (08:50→18:02)
--- NOTE | 2020-05-11 13:10 | Hospitalist Progress Note ---
Date of Service May 11, 2020 Assessment & Plan (1) Recurrent UTI: growing Stenotrophomonas, sensitive to Bactrim and Levaquin he has allergy to Bactrim and Levaquin, listed as anaphylactic reactions confirmed with his and daughter that he had a bad reaction, this was in the 80's d/w Dr. Arcos, will proceed with desensitization with Bactrim, completed this in the ICU on 05/10 tolerated well now on Bactrim 800/160mg BID, will complete 10 days for complicated UTI with the suprapubic catheter (2) Complicated UTI (urinary tract infection): See above (3) Presence of suprapubic catheter: See above Consult urology - Dr. 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: Continue levothyroxine sodium 100 mcg daily (5) Anxiety and depression: Anxiety and depression/dementia- Continue bupropion, citalopram, donepezil, and memantine (6) CAD (coronary artery disease), [place] coronary artery: CAD/hypertension/atrial fibrillation- Continue apixaban, carvedilol, and isosorbide mononitrate (7) HTN (hypertension), benign: See above BP quite high today added Hydralazine PRN for SBP > 170 (8) Stage 3b chronic kidney disease: Creatinine remains stable at 1.7, making urine, electrolytes stable no labs today (9) Dyslipidemia: Continue simvastatin 80 mg at bedtime (10) GERD (gastroesophageal reflux disease): Continue famotidine (11) S/P ureteral stent placement: See above (12) Atrial fibrillation: See above (13) Chronic constipation: Fecal retention with distention 9 cm similar to previous. Placing on IV fluids as noted above. Dulcolax suppository PRN will add Miralax BID (14) Weakness: consult PT/OT to evaluate, might need rehab CM is consulted and following Admission and Anticipated Discharge Date Admission Date: May 06, 2020 Subjective patient says he feels weak today, fatigued he is eating well, no dyspnea, no cough, no fever/chills no issues after taking Bactrim this morning will get therapy, discussed that he will be here over the weekend updated his on the phone spoke with CM about the plan Review of Systems Review of Systems: All systems reviewed & are unremarkable except as noted in Subjective Constitutional: + fatigue and + weakness Physical Exam Constitutional: well developed, well nourished, + frail appearing and cooperative; no acute distress Neck: trachea midline, no thyromegaly Respiratory: normal respiratory effort, lungs clear to auscultation Cardiovascular: RRR, no murmur, no edema Gastrointestinal (Abdomen): normal bowel sounds, soft, nontender, no hepatosplenomegaly Inspection/Auscultation: + abdominal surgical drain present (suprapubic catheter in place) Musculoskeletal: no cyanosis or clubbing, extremities motor strength 5/5 Skin: no rashes, warm and dry Neurologic: patellar DTR's 2+ bilat, sensation intact and PERRL, EOMI, accommodation nl, no face palsy, no dysarthria Psychiatric: A+Ox3, euthymic affect Lymphatic: no cervical or axillary lymphadenopathy Results & Data Results & Data ([facility]) Vital Signs (Past 12 Hours) Vital Signs Temp Pulse Resp BP Pulse Ox 05/11/20 07:15 36.5 C 70 18 150/94 H 93 Medications Administered Current Inpatient Medications Acetaminophen (Acetaminophen 325 Mg Tab) 650 mg PO Q4H PRN PRN Reason: pain/fever Stop: 06/05/20 03:07 Albuterol (Albuterol 0.083% Nebu Soln 3 Ml Vial) 2.5 mg INH ONCE PRN PRN Reason: Shortness Of Breath Apixaban (Apixaban 2.5 Mg Tab) 2.5 mg PO BID [facility] Stop: 06/05/20 10:44 Last Admin: 05/11/20 08:48 Dose: 2.5 mg Documented by: Bisacodyl (Bisacodyl 10 Mg Supp) 10 mg [place] DAILY PRN PRN Reason: Constipation Stop: 06/05/20 03:07 Bupropion HCl (Bupropion Sr 100 Mg Tabcr) 100 mg PO QAM [facility] Stop: 06/05/20 08:59 Last Admin: 05/11/20 08:49 Dose: 100 mg Documented by: Carvedilol (Carvedilol 3.125 Mg Tab) 3.125 mg PO BID [facility] Stop: 06/05/20 08:59 Last Admin: 05/11/20 08:48 Dose: 3.125 mg Documented by: Citalopram Hydrobromide (Citalopram 20 Mg Tab) 10 mg PO QAM [facility] Stop: 06/05/20 08:59 Last Admin: 05/11/20 08:48 Dose: 10 mg Documented by: Diphenhydramine HCl (Diphenhydramine 50 Mg/Ml Vial) 50 mg IV ONCE PRN PRN Reason: SKIN SYMPTOMS Donepezil HCl (Donepezil Hcl 10 Mg Tab) 10 mg PO [facility] Stop: 06/05/20 20:59 Last Admin: 05/10/20 21:15 Dose: 10 mg Documented by: Epinephrine HCl (Epinephrine Inj 1 Mg/Ml Amp) 0.3 mg IM Q5M PRN PRN Reason: SEVERE ALLERGIC RXN Famotidine (Famotidine 40 Mg Tablet) 40 mg PO [facility] Stop: 06/05/20 08:59 Last Admin: 05/11/20 08:49 Dose: 40 mg Documented by: Ferrous Sulfate (Ferrous Sulfate 325 Mg Tab) 325 mg PO BIDM [facility] Stop: 06/05/20 07:59 Last Admin: 05/11/20 08:50 Dose: 325 mg Documented by: Folic Acid ([facility] Acid 1 Mg Tab) [facility] Stop: 06/05/20 08:59 Last Admin: 05/11/20 08:48 Dose: 1 mg Documented by: Gabapentin (Gabapentin 300 Mg Cap) 300 mg PO [facility] Stop: 06/05/20 20:59 Last Admin: 05/10/20 21:18 Dose: 300 mg Documented by: Hydralazine HCl (Hydralazine Hcl 20 Mg/Ml Vial) 10 mg IV Q6 PRN PRN Reason: Blood Pressure - High Stop: 06/08/20 16:38 Isosorbide Mononitrate (Isosorbide [place] Extended Rel 60 Mg Tabcr) 60 mg PO [facility] Stop: 06/05/20 08:59 Last Admin: 05/11/20 08:48 Dose: 60 mg Documented by: Levothyroxine Sodium (Levothyroxine Sodium 112 Mcg Tablet) 112 mcg PO DAILYBB [facility] Stop: 06/06/20 06:29 Last Admin: 05/11/20 05:53 Dose: 112 mcg Documented by: Memantine (Memantine Hcl 10 Mg Tab) 10 mg PO BID [facility] Stop: 06/05/20 08:59 Last Admin: 05/11/20 08:49 Dose: 10 mg Documented by: Ondansetron HCl (Ondansetron Inj 2 Mg/Ml 2 Ml Vial) 4 mg IV Q6H PRN PRN Reason: Nausea Stop: 06/05/20 03:07 Oxybutynin Chloride (Oxybutynin Chloride 5 Mg Tab) 5 mg PO Q8H PRN PRN Reason: bladder spasms Stop: 06/05/20 03:07 Phenazopyridine HCl (Phenazopyridine Hcl 200 Mg Tab) 200 mg PO Q8H PRN PRN Reason: pain Stop: 06/05/20 03:07 Last Admin: 05/09/20 23:09 Dose: 200 mg Documented by: Polyethylene Glycol (Polyethylene (Miralax) 17 Gm Pack) 17 gm PO BID [facility] Stop: 06/09/20 08:59 Last Admin: 05/11/20 08:49 Dose: 17 gm Documented by: Simvastatin (Simvastatin 80 Mg Tab) 80 mg PO HS [facility] Stop: 06/05/20 20:59 Last Admin: 05/10/20 21:20 Dose: 80 mg Documented by: Tamsulosin HCl (Tamsulosin Hcl 0.4 Mg Cap) 0.4 mg PO QPM [facility] Stop: 06/05/20 20:59 Last Admin: 05/10/20 21:16 Dose: 0.4 mg Documented by: Tramadol HCl (Tramadol Hcl 50 Mg Tablet) 50 mg PO TID PRN PRN Reason: Moderate Pain Stop: 06/05/20 03:07 Last Admin: 05/09/20 19:09 Dose: 50 mg Documented by: Trimethoprim/Sulfamethoxazole (Sulfamethoxazole/Trimethoprim Ds 800/160mg Tab) 1 tab PO BID [facility] Stop: 05/20/20 20:59 Last Admin: 05/11/20 08:50 Dose: 1 tab Documented by: PG Care Time/CCT Total # of Minutes Spent Total Time Spent with Patient: Total time spent is greater than 50% in coordination of care (as documented) at patient's floor/unit and/or counseling patient: Coding Level of Care Code 42886 Subseq Hosp Care Lvl 2 Diagnoses Recurrent UTI N39.0 Complicated UTI (urinary tract infection) N39.0 Presence of suprapubic catheter Z93.59 Hypothyroidism E03.9 Hypothyroidism type: acquired Anxiety and depression F41.9; F32.9 CAD (coronary artery disease), [place] coronary artery I25.10 [place] vs. transplanted heart: [place] heart Associated angina: without angina HTN (hypertension), benign I10 Stage 3b chronic kidney disease N18.32 Dyslipidemia E78.5 GERD (gastroesophageal reflux disease) K21.9 Esophagitis presence: esophagitis presence not specified S/P ureteral stent placement Z96.0 Atrial fibrillation I48.91 Atrial fibrillation type: unspecified Chronic constipation K59.09 Weakness R53.1 (1) Hypothyroidism Hypothyroidism type: acquired Qualified Code(s): E03.9 - Hypothyroidism, unspecified (2) CAD (coronary artery disease), [place] coronary artery [place] vs. transplanted heart: [place] heart Associated angina: without angina Qualified Code(s): I25.10 - Atherosclerotic heart disease of [place] coronary artery without angina pectoris (3) GERD (gastroesophageal reflux disease) Esophagitis presence: esophagitis presence not specified Qualified Code(s): K21.9 - Gastro-esophageal reflux disease without esophagitis (4) Atrial fibrillation Atrial fibrillation type: unspecified Qualified Code(s): I48.91 - Unspecified atrial fibrillation
[2020-05-11] MEDS: ACETAMINOPHEN 325 MG TAB PO PRN ×2 (15:46→23:43)
[2020-05-11] MEDS: SIMVASTATIN 80 MG TAB PO SCH (20:57)
[2020-05-11] MEDS: GABAPENTIN 300 MG CAP PO SCH (20:58)
[2020-05-11] MEDS: TAMSULOSIN HCL 0.4 MG CAP PO SCH (21:01)
[2020-05-11] MEDS: DONEPEZIL HCL 10 MG TAB PO SCH (21:02)
[2020-05-12] MEDS: LEVOTHYROXINE SODIUM 112 MCG TABLET PO SCH (05:47)
[2020-05-12] MEDS: CITALOPRAM 20 MG TAB PO SCH (08:52)
[2020-05-12] MEDS: FERROUS SULFATE 325 MG TAB PO SCH ×2 (08:52→16:41)
[2020-05-12] MEDS: carvediloL 3.125 MG TAB PO SCH ×2 (08:52→20:08)
[2020-05-12] MEDS: FAMOTIDINE 40 MG TABLET PO SCH (08:53)
[2020-05-12] MEDS: FOLIC ACID 1 MG TAB PO SCH (08:53)
[2020-05-12] MEDS: ISOSORBIDE MONO EXTENDED REL 60 MG TABCR PO SCH (08:53)
[2020-05-12] MEDS: MEMANTINE HCL 10 MG TAB PO SCH ×2 (08:53→20:10)
[2020-05-12] MEDS: SULFAMETHOXAZOLE/TRIMETHOPRIM DS 800/160MG TAB PO SCH ×2 (08:53→20:11)
[2020-05-12] MEDS: buPROPion SR 100 MG TABCR PO SCH (08:53)
[2020-05-12] MEDS: APIXABAN 2.5 MG TAB PO SCH ×2 (08:53→20:09)
[2020-05-12] MEDS: POLYETHYLENE (MIRALAX) 17 GM PACK PO SCH ×2 (09:00→20:28)
[2020-05-12] MEDS: ACETAMINOPHEN 325 MG TAB PO PRN ×2 (10:07→19:17)
--- NOTE | 2020-05-12 15:23 | Hospitalist Progress Note ---
Date of Service May 12, 2020 Assessment & Plan (1) Recurrent UTI: growing Stenotrophomonas, sensitive to Bactrim and Levaquin he has allergy to Bactrim and Levaquin, listed as anaphylactic reactions confirmed with his and daughter that he had a bad reaction, this was in the 80's d/w Dr. Arcos, will proceed with desensitization with Bactrim, completed this in the ICU on 05/10 tolerated well now on Bactrim 800/160mg BID, will complete 10 days for complicated UTI with the suprapubic catheter last day would be 05/21/20 (2) Complicated UTI (urinary tract infection): See above (3) Presence of suprapubic catheter: See above Consult urology - Dr. 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: Continue levothyroxine sodium 100 mcg daily (5) Anxiety and depression: Anxiety and depression/dementia- Continue bupropion, citalopram, donepezil, and memantine (6) CAD (coronary artery disease), [place] coronary artery: CAD/hypertension/atrial fibrillation- Continue apixaban, carvedilol, and isosorbide mononitrate (7) HTN (hypertension), benign: See above BP quite high today added Hydralazine PRN for SBP > 170 (8) Stage 3b chronic kidney disease: Creatinine remains stable at 1.7, making urine, electrolytes stable no labs today (9) Dyslipidemia: Continue simvastatin 80 mg at bedtime (10) GERD (gastroesophageal reflux disease): Continue famotidine (11) S/P ureteral stent placement: See above (12) Atrial fibrillation: See above (13) Chronic constipation: Fecal retention with distention 9 cm similar to previous. Placing on IV fluids as noted above. Dulcolax suppository PRN will add Miralax BID (14) Weakness: consult PT/OT to evaluate, recommend rehab CM is consulted and following will be here over the weekend Admission and Anticipated Discharge Date Admission Date: May 06, 2020 Subjective patient doing well asking me a lot of questions from yesterday, short term memory issues very kind and cooperative, eating reasonably well no distress tolerating Bactrim working on SNF placement after this weekend Review of Systems Review of Systems: All systems reviewed & are unremarkable except as noted in Subjective Physical Exam Constitutional: well developed, well nourished, + frail appearing and co operative; no acute distress Neck: trachea midline, no thyromegaly Respiratory: normal respiratory effort, lungs clear to auscultation Cardiovascular: RRR, no murmur, no edema Gastrointestinal (Abdomen): normal bowel sounds, soft, nontender, no hepatosplenomegaly Inspection/Auscultation: + abdominal surgical drain present (suprapubic catheter in place) Musculoskeletal: no cyanosis or clubbing, extremities motor strength 5/5 Skin: no rashes, warm and dry Neurologic: patellar DTR's 2+ bilat, sensation intact and PERRL, EOMI, accommodation nl, no face palsy, no dysarthria Psychiatric: A+Ox3, euthymic affect Lymphatic: no cervical or axillary lymphadenopathy Results & Data Results & Data ([facility]) Vital Signs (Past 12 Hours) Vital Signs Temp Pulse Resp BP Pulse Ox 05/12/20 07:15 36.4 C L 66 18 145/88 H 96 Medications Administered Current Inpatient Medications Acetaminophen (Acetaminophen 325 Mg Tab) 650 mg PO Q4H PRN PRN Reason: pain/fever Stop: 06/05/20 03:07 Last Admin: 05/12/20 10:07 Dose: 650 mg Documented by: Albuterol (Albuterol 0.083% Nebu Soln 3 Ml Vial) 2.5 mg INH ONCE PRN PRN Reason: Shortness Of Breath Apixaban (Apixaban 2.5 Mg Tab) 2.5 mg PO BID [facility] Stop: 06/05/20 10:44 Last Admin: 05/12/20 08:53 Dose: 2.5 mg Documented by: Bisacodyl (Bisacodyl 10 Mg Supp) 10 mg NM DAILY PRN PRN Reason: Constipation Stop: 06/05/20 03:07 Bupropion HCl (Bupropion Sr 100 Mg Tabcr) 100 mg PO QAM [facility] Stop: 06/05/20 08:59 Last Admin: 05/12/20 08:53 Dose: 100 mg Documented by: Carvedilol (Carvedilol 3.125 Mg Tab) 3.125 mg PO BID [facility] Stop: 06/05/20 08:59 Last Admin: 05/12/20 08:52 Dose: 3.125 mg Documented by: Citalopram Hydrobromide (Citalopram 20 Mg Tab) [facility] [place]: 06/05/20 08:59 Last Admin: 05/12/20 08:52 Dose: 10 mg Documented by: Diphenhydramine HCl (Diphenhydramine 50 Mg/Ml Vial) 50 mg IV ONCE PRN PRN Reason: SKIN SYMPTOMS Donepezil HCl (Donepezil Hcl 10 Mg Tab) 10 mg PO [facility] Stop: 06/05/20 20:59 Last Admin: 05/11/20 21:02 Dose: 10 mg Documented by: Epinephrine HCl (Epinephrine Inj 1 Mg/Ml Amp) 0.3 mg IM Q5M PRN PRN Reason: SEVERE ALLERGIC RXN Famotidine (Famotidine 40 Mg Tablet) 40 mg PO [facility] Stop: 06/05/20 08:59 Last Admin: 05/12/20 08:53 Dose: 40 mg Documented by: Ferrous Sulfate (Ferrous Sulfate 325 Mg Tab) 325 mg PO BIDM [facility] Stop: 06/05/20 07:59 Last Admin: 05/12/20 08:52 Dose: 325 mg Documented by: Folic Acid (Folic Acid 1 Mg Tab) 1 mg [facility] [place]: 06/05/20 08:59 Last Admin: 05/12/20 08:53 Dose: 1 mg Documented by: Gabapentin (Gabapentin 300 Mg Cap) 300 mg PO [facility] Stop: 06/05/20 20:59 Last Admin: 05/11/20 20:58 Dose: 300 mg Documented by: Hydralazine HCl (Hydralazine Hcl 20 Mg/Ml Vial) 10 mg IV Q6 PRN PRN Reason: Blood Pressure - High Stop: 06/08/20 16:38 Isosorbide Mononitrate (Isosorbide [place] Extended Rel 60 Mg Tabcr) 60 mg [facility] [place]: 06/05/20 08:59 Last Admin: 05/12/20 08:53 Dose: 60 mg Documented by: Levothyroxine Sodium (Levothyroxine Sodium 112 Mcg Tablet) 112 [facility]cg [facility] Stop: 06/06/20 06:29 Last Admin: 05/12/20 05:47 Dose: 112 mcg Documented by: Memantine (Memantine Hcl 10 Mg Tab) 10 mg PO BID [facility] Stop: 06/05/20 08:59 Last Admin: 05/12/20 08:53 Dose: 10 mg Documented by: Ondansetron HCl (Ondansetron Inj 2 Mg/Ml 2 Ml Vial) 4 mg IV Q6H PRN PRN Reason: Nausea Stop: 06/05/20 03:07 Oxybutynin Chloride (Oxybutynin Chloride 5 Mg Tab) 5 mg PO Q8H PRN PRN Reason: bladder spasms Stop: 06/05/20 03:07 Phenazopyridine HCl (Phenazopyridine Hcl 200 Mg Tab) 200 mg PO Q8H PRN PRN Reason: pain Stop: 06/05/20 03:07 Last Admin: 05/09/20 23:09 Dose: 200 mg Documented by: Polyethylene Glycol (Polyethylene (Miralax) 17 Gm Pack) 17 gm PO BID [facility] Stop: 06/09/20 08:59 Last Admin: 05/12/20 09:00 Dose: 17 gm Documented by: Simvastatin (Simvastatin 80 Mg Tab) 80 mg PO HS [facility] Stop: 06/05/20 20:59 Last Admin: 05/11/20 20:57 Dose: 80 mg Documented by: Tamsulosin HCl (Tamsulosin Hcl 0.4 Mg Cap) 0.4 mg PO QPM [facility] Stop: 06/05/20 20:59 Last Admin: 05/11/20 21:01 Dose: 0.4 mg Documented by: Tramadol HCl (Tramadol Hcl 50 Mg Tablet) 50 mg PO TID PRN PRN Reason: Moderate Pain Stop: 06/05/20 03:07 Last Admin: 05/09/20 19:09 Dose: 50 mg Documented by: Trimethoprim/Sulfamethoxazole (Sulfamethoxazole/Trimethoprim Ds 800/160mg Tab) 1 tab PO BID [facility] Stop: 05/20/20 20:59 Last Admin: 05/12/20 08:53 Dose: 1 tab Documented by: PG Care Time/CCT Total # of Minutes Spent Total Time Spent with Patient: Total time spent is greater than 50% in coordination of care (as documented) at patient's floor/unit and/or counseling patient: Coding Level of Care Code 16721 Subseq Hosp Care Lvl 2 Diagnoses Recurrent UTI N39.0 Complicated UTI (urinary tract infection) N39.0 Presence of suprapubic catheter Z93.59 Hypothyroidism E03.9 Hypothyroidism type: acquired Anxiety and depression F41.9; F32.9 CAD (coronary artery disease), [place] coronary artery I25.10 [place] vs. transplanted heart: [place] heart Associated angina: without angina HTN (hypertension), benign I10 Stage 3b chronic kidney disease N18.32 Dyslipidemia E78.5 GERD (gastroesophageal reflux disease) K21.9 Esophagitis presence: esophagitis presence not specified S/P ureteral stent placement Z96.0 Atrial fibrillation I48.91 Atrial fibrillation type: unspecified Chronic constipation K59.09 Weakness R53.1 (1) Hypothyroidism Hypothyroidism type: acquired Qualified Code(s): E03.9 - Hypothyroidism, unspecified (2) CAD (coronary artery disease), [place] coronary artery [place] vs. transplanted heart: [place] heart Associated angina: without angina Qualified Code(s): I25.10 - Atherosclerotic heart disease of [place] coronary artery without angina pectoris (3) GERD (gastroesophageal reflux disease) Esophagitis presence: esophagitis presence not specified Qualified Code(s): K21.9 - Gastro-esophageal reflux disease without esophagitis (4) Atrial fibrillation Atrial fibrillation type: unspecified Qualified Code(s): I48.91 - Unspecified atrial fibrillation
[2020-05-12] MEDS: DONEPEZIL HCL 10 MG TAB PO SCH (20:08)
[2020-05-12] MEDS: TAMSULOSIN HCL 0.4 MG CAP PO SCH (20:10)
[2020-05-12] MEDS: GABAPENTIN 300 MG CAP PO SCH (20:11)
[2020-05-12] MEDS: SIMVASTATIN 80 MG TAB PO SCH (20:12)
[2020-05-13] MEDS: LEVOTHYROXINE SODIUM 112 MCG TABLET PO SCH (05:25)
[2020-05-13] MEDS: ACETAMINOPHEN 325 MG TAB PO PRN (07:42)
[2020-05-13] MEDS: APIXABAN 2.5 MG TAB PO SCH ×2 (08:14→21:13)
[2020-05-13] MEDS: FERROUS SULFATE 325 MG TAB PO SCH ×2 (08:14→17:31)
[2020-05-13] MEDS: CITALOPRAM 20 MG TAB PO SCH (08:14)
[2020-05-13] MEDS: FOLIC ACID 1 MG TAB PO SCH (08:14)
[2020-05-13] MEDS: ISOSORBIDE MONO EXTENDED REL 60 MG TABCR PO SCH (08:15)
[2020-05-13] MEDS: SULFAMETHOXAZOLE/TRIMETHOPRIM DS 800/160MG TAB PO SCH ×2 (08:15→21:13)
[2020-05-13] MEDS: MEMANTINE HCL 10 MG TAB PO SCH ×2 (08:15→21:12)
[2020-05-13] MEDS: buPROPion SR 100 MG TABCR PO SCH (08:15)
[2020-05-13] MEDS: FAMOTIDINE 40 MG TABLET PO SCH (08:15)
[2020-05-13] MEDS: POLYETHYLENE (MIRALAX) 17 GM PACK PO SCH ×2 (08:20→21:10)
[2020-05-13] MEDS: carvediloL 3.125 MG TAB PO SCH ×2 (08:20→21:14)
--- NOTE | 2020-05-13 15:58 | Hospitalist Progress Note ---
Date of Service May 13, 2020 Assessment & Plan (1) Recurrent UTI: growing Stenotrophomonas, sensitive to Bactrim and Levaquin he has allergy to Bactrim and Levaquin, listed as anaphylactic reactions confirmed with his and daughter that he had a bad reaction, this was in the 80's d/w Dr. Arcos, will proceed with desensitization with Bactrim, completed this in the ICU on 05/10 tolerated well now on Bactrim 800/160mg BID, will complete 10 days for complicated UTI with the suprapubic catheter last day would be 05/21/20 (2) Complicated UTI (urinary tract infection): See above (3) Presence of suprapubic catheter: See above Consult urology - Dr. 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: Continue levothyroxine sodium 100 mcg daily (5) Anxiety and depression: Anxiety and depression/dementia- Continue bupropion, citalopram, donepezil, and memantine (6) CAD (coronary artery disease), [place] coronary artery: CAD/hypertension/atrial fibrillation- Continue apixaban, carvedilol, and isosorbide mononitrate (7) HTN (hypertension), benign: See above BP quite high today added Hydralazine PRN for SBP > 170 (8) Stage 3b chronic kidney disease: Creatinine remains stable at 1.7, making urine, electrolytes stable no labs today, check tomorrow (9) Dyslipidemia: Continue simvastatin 80 mg at bedtime (10) GERD (gastroesophageal reflux disease): Continue famotidine (11) S/P ureteral stent placement: See above (12) Atrial fibrillation: See above (13) Chronic constipation: Fecal retention with distention 9 cm similar to previous. Placing on IV fluids as noted above. Dulcolax suppository PRN will add Miralax BID (14) Weakness: consult PT/OT to evaluate, recommend rehab CM is consulted and following will be here over the weekend his is hoping he will not need rehab, have CM discuss with her tomorrow Admission and Anticipated Discharge Date Admission Date: May 06, 2020 Subjective patient pleasant, no new issues tolerating Bactrim, no allergic reactions eating well, making urine via suprapubic catheter no fever/chills, no dyspnea, no chest pain, no GI symptoms spoke with his over the phone, discussed possible rehab, she wants him to come home if possible he does not do much at home and his daughter lives with them will see how he does with therapy tomorrow have CM reach out to family tomorrow Review of Systems Review of Systems: All systems reviewed & are unremarkable except as noted in Subjective Constitutional: + weakness Musculoskeletal: + muscle weakness Physical Exam Constitutional: well developed, well nourished, + frail appearing and cooperative; no acute distress Neck: trachea midline, no thyromegaly Respiratory: normal respiratory effort, lungs clear to auscultation Cardiovascular: RRR, no murmur, no edema Gastrointestinal (Abdomen): normal bowel sounds, soft, nontender, no hepatosplenomegaly Inspection/Auscultation: + abdominal surgical drain present (suprapubic catheter in place) Musculoskeletal: no cyanosis or clubbing, extremities motor strength 5/5 Skin: no rashes, warm and dry Neurologic: patellar DTR's 2+ bilat, sensation intact and PERRL, EOMI, accommodation nl, no face palsy, no dysarthria Psychiatric: A+Ox3, euthymic affect Lymphatic: no cervical or axillary lymphadenopathy Results & Data Results & Data ([facility]) Vital Signs (Past 12 Hours) Vital Signs Temp Pulse Resp BP Pulse Ox 05/13/20 15:12 36.7 C 72 16 164/88 H 94 05/13/20 08:15 68 131/75 05/13/20 07:36 36.4 C L 59 L 18 172/94 H 92 Medications Administered Current Inpatient Medications Acetaminophen (Acetaminophen 325 Mg Tab) 650 mg PO Q4H PRN PRN Reason: pain/fever Stop: 06/05/20 03:07 Last Admin: 05/13/20 07:42 Dose: 650 mg Documented by: Albuterol (Albuterol 0.083% Nebu Soln 3 Ml Vial) 2.5 mg INH ONCE PRN PRN Reason: Shortness Of Breath Apixaban (Apixaban 2.5 Mg Tab) 2.5 mg PO BID [facility] Stop: 06/05/20 10:44 Last Admin: 05/13/20 08:14 Dose: 2.5 mg Documented by: Bisacodyl (Bisacodyl 10 Mg Supp) 10 mg CO DAILY PRN PRN Reason: Constipation Stop: 06/05/20 03:07 Bupropion HCl (Bupropion Sr 100 Mg Tabcr) [facility] mg [facility] Stop: 06/05/20 08:59 Last Admin: 05/13/20 08:15 Dose: 100 mg Documented by: Carvedilol (Carvedilol 3.125 Mg Tab) 3.125 mg PO BID [facility] Stop: 06/05/20 08:59 Last Admin: 05/13/20 08:20 Dose: 3.125 mg Documented by: Citalopram Hydrobromide (Citalopram 20 Mg Tab) 10 mg PO [facility] Stop: 06/05/20 08:59 Last Admin: 05/13/20 08:14 Dose: 10 mg Documented by: Diphenhydramine HCl (Diphenhydramine 50 Mg/Ml Vial) 50 mg IV ONCE PRN PRN Reason: SKIN SYMPTOMS Donepezil HCl (Donepezil Hcl 10 Mg Tab) 10 mg PO [facility] Stop: 06/05/20 20:59 Last Admin: 05/12/20 20:08 Dose: 10 mg Documented by: Epinephrine HCl (Epinephrine Inj 1 Mg/Ml Amp) 0.3 mg IM Q5M PRN PRN Reason: SEVERE ALLERGIC RXN Famotidine (Famotidine 40 Mg Tablet) 40 mg PO [facility] Stop: 06/05/20 08:59 Last Admin: 05/13/20 08:15 Dose: 40 mg Documented by: Ferrous Sulfate (Ferrous Sulfate 325 Mg Tab) 325 mg PO BIDM [facility] Stop: 06/05/20 07:59 Last Admin: 05/13/20 08:14 Dose: 325 mg Documented by: Folic Acid (Folic Acid 1 Mg Tab) 1 mg PO [facility] Stop: 06/05/20 08:59 Last Admin: 05/13/20 08:14 Dose: 1 mg Documented by: Gabapentin (Gabapentin 300 Mg Cap) 300 mg PO [facility] Stop: 06/05/20 20:59 Last Admin: 05/12/20 20:11 Dose: 300 mg Documented by: Hydralazine HCl (Hydralazine Hcl 20 Mg/Ml Vial) 10 mg IV Q6 PRN PRN Reason: Blood Pressure - High Stop: 06/08/20 16:38 Last Admin: 05/13/20 07:42 Dose: 10 mg Documented by: Isosorbide Mononitrate (Isosorbide [place] Extended Rel 60 Mg Tabcr) 60 mg PO QAM [facility] Stop: 06/05/20 08:59 Last Admin: 05/13/20 08:15 Dose: 60 mg Documented by: Levothyroxine Sodium (Levothyroxine Sodium 112 Mcg Tablet) 112 mcg PO DAILYBB [facility] Stop: 06/06/20 06:29 Last Admin: 05/13/20 05:25 Dose: 112 mcg Documented by: Memantine (Memantine Hcl 10 Mg Tab) 10 mg PO BID [facility] Stop: 06/05/20 08:59 Last Admin: 05/13/20 08:15 Dose: 10 mg Documented by: Ondansetron HCl (Ondansetron Inj 2 Mg/Ml 2 Ml Vial) 4 mg IV Q6H PRN PRN Reason: Nausea Stop: 06/05/20 03:07 Oxybutynin Chloride (Oxybutynin Chloride 5 Mg Tab) 5 mg PO Q8H PRN PRN Reason: bladder spasms Stop: 06/05/20 03:07 Phenazopyridine HCl (Phenazopyridine Hcl 200 Mg Tab) 200 mg PO Q8H PRN PRN Reason: pain Stop: 06/05/20 03:07 Last Admin: 05/09/20 23:09 Dose: 200 mg Documented by: Polyethylene Glycol (Polyethylene (Miralax) 17 Gm Pack) 17 gm PO BID [facility] Stop: 06/09/20 08:59 Last Admin: 05/13/20 08:20 Dose: 17 gm Documented by: Simvastatin (Simvastatin 80 Mg Tab) 80 mg PO HS [facility] Stop: 06/05/20 20:59 Last Admin: 05/12/20 20:12 Dose: 80 mg Documented by: Tamsulosin HCl (Tamsulosin Hcl 0.4 Mg Cap) 0.4 mg PO QPM [facility] Stop: 06/05/20 20:59 Last Admin: 05/12/20 20:10 Dose: 0.4 mg Documented by: Tramadol HCl (Tramadol Hcl 50 Mg Tablet) 50 mg PO TID PRN PRN Reason: Moderate Pain Stop: 06/05/20 03:07 Last Admin: 05/09/20 19:09 Dose: 50 mg Documented by: Trimethoprim/Sulfamethoxazole (Sulfamethoxazole/Trimethoprim Ds 800/160mg Tab) 1 tab PO BID [facility] Stop: 05/20/20 20:59 Last Admin: 05/13/20 08:15 Dose: 1 tab Documented by: PG Care Time/CCT Total # of Minutes Spent Total Time Spent with Patient: Total time spent is greater than 50% in coordination of care (as documented) at patient's floor/unit and/or counseling patient: Coding Level of Care Code 38060 Subseq Hosp Care Lvl 2 Diagnoses Recurrent UTI N39.0 Complicated UTI (urinary tract infection) N39.0 Presence of suprapubic catheter Z93.59 Hypothyroidism E03.9 Hypothyroidism type: acquired Anxiety and depression F41.9; F32.9 CAD (coronary artery disease), [place] coronary artery I25.10 Associated angina: without angina [place] vs. transplanted heart: [place] heart HTN (hypertension), benign I10 Stage 3b chronic kidney disease N18.32 Dyslipidemia E78.5 GERD (gastroesophageal reflux disease) K21.9 Esophagitis presence: esophagitis presence not specified S/P ureteral stent placement Z96.0 Atrial fibrillation I48.91 Atrial fibrillation type: unspecified Chronic constipation K59.09 Weakness R53.1 (1) Atrial fibrillation Atrial fibrillation type: unspecified Qualified Code(s): I48.91 - Unspecified atrial fibrillation (2) Hypothyroidism Hypothyroidism type: acquired Qualified Code(s): E03.9 - Hypothyroidism, unspecified (3) CAD (coronary artery disease), [place] coronary artery Associated angina: without angina [place] vs. transplanted heart: [place] heart Qualified Code(s): I25.10 - Atherosclerotic heart disease of [place] coronary artery without angina pectoris (4) GERD (gastroesophageal reflux disease) Esophagitis presence: esophagitis presence not specified Qualified Code(s): K21.9 - Gastro-esophageal reflux disease without esophagitis
[2020-05-13] MEDS: DONEPEZIL HCL 10 MG TAB PO SCH (21:11)
[2020-05-13] MEDS: TAMSULOSIN HCL 0.4 MG CAP PO SCH (21:12)
[2020-05-13] MEDS: GABAPENTIN 300 MG CAP PO SCH (21:12)
[2020-05-13] MEDS: SIMVASTATIN 80 MG TAB PO SCH (21:13)
[2020-05-14] MEDS: ACETAMINOPHEN 325 MG TAB PO PRN (04:27)
[2020-05-14] MEDS: LEVOTHYROXINE SODIUM 112 MCG TABLET PO SCH (05:40)
--- NOTE | 2020-05-14 08:19 | Hospitalist Progress Note ---
Date of Service May 14, 2020 Assessment & Plan (1) Recurrent UTI: growing Stenotrophomonas, sensitive to Bactrim and Levaquin he has allergy to Bactrim and Levaquin, listed as anaphylactic reactions confirmed with his and daughter that he had a bad reaction, this was in the 80's d/w Dr. Arcos, will proceed with desensitization with Bactrim, completed this in the ICU on 05/10 tolerated well now on Bactrim 800/160mg BID, will complete 10 days for complicated UTI with the suprapubic catheter last day would be 05/21/20 (2) Complicated UTI (urinary tract infection): See above (3) Presence of suprapubic catheter: See above Consult urology - Dr. 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: Continue levothyroxine sodium 100 mcg daily --> increased last week to 112mcg daily which should also help with his constipation issues (5) Anxiety and depression: Anxiety and depression/dementia- Continue bupropion, citalopram, donepezil, and memantine (6) CAD (coronary artery disease), [place] coronary artery: CAD/hypertension/atrial fibrillation- Continue apixaban, carvedilol, and isosorbide mononitrate (7) HTN (hypertension), benign: See above BP quite high today added Hydralazine PRN for SBP > 170 (8) Stage 3b chronic kidney disease: Creatinine remains stable at 1.7, making urine, electrolytes stable --> ELEVATED TODAY to 2.32. Could be from bactrim. Will give 1L NSS and encourage PO intake Repeat BMP tomorrow (9) Dyslipidemia: Continue simvastatin 80 mg at bedtime (10) GERD (gastroesophageal reflux disease): Continue famotidine (11) S/P ureteral stent placement: See above -- with suprapubic catheter, recently placed by Urology in April (12) Atrial fibrillation: See above (13) Chronic constipation: Fecal retention with distention 9 cm similar to previous. Placed on IV fluids as noted above and suppositories prn. Continued on miralax BID Continues to have multiple BMs (14) Weakness: consult PT/OT to evaluate, recommend rehab CM is consulted and following his is hoping he will not need rehab, have CM discuss with her tomorrow -- he again expresses wishes for return home at discharge Will have PT/OT re-eval and discuss again tomorrow recs for rehab vs home Dispo: continued inpatient stay Admission and Anticipated Discharge Date Admission Date: May 06, 2020 Subjective Patient evaluated this morning. Doing well per his account. No issues with the Bactrim although did discuss elevated creatinine, could be from abx. Encouraged to push fluids today. Continues to have multiple BMs. His wishes are to return home at discharge but we will have to see how he makes out with therapy to see about how safe this option would be vs rehab at discharge. He states "one day at a time" and is agreeable to work with therapy to determine needs. Suprapubic discomfort declined and stable and making good urine. No fever, chills, chest pain, shortness of breath, nausea or vomiting. Review of Systems Review of Systems: All systems reviewed & are unremarkable except as noted in HPI & below Physical Exam Constitutional: well developed, well nourished, + frail appearing and cooperative; no acute distress Eyes: + anicteric sclerae; no conjunctival abnormality and no scleral abnormality ENMT: dry mm Neck: trachea midline; neck nontender Respiratory: normal respiratory effort and able to speak in complete sentences; no respiratory distress, no labored breathing and does not use accessory muscles Auscultation: no crackles, no rhonchi and no wheezes Cardiovascular: Rate/Rhythm: regular rate and regular rhythm Heart Sounds: + murmur (3/6 systolic ejection murmur) Vessels: radial pulses present Extremities: no calf tenderness and no edema Gastrointestinal (Abdomen): normal bowel sounds, soft, nontender, no hepatosplenomegaly Inspection/Auscultation: abdomen normal to inspection, normal bowel sounds and + abdominal surgical drain present (suprapubic catheter in place); abdomen not distended Percussion/Palpation: abdomen soft; abdomen nontender and no guarding Musculoskeletal: no cyanosis or clubbing, extremities motor strength 5/5 Skin: no rashes, warm and dry Neurologic: patellar DTR's 2+ bilat, sensation intact and PERRL, EOMI, accommodation nl, no face palsy, no dysarthria moves all extremities and awake; not obtunded Speech / Cognition: normal speech and normal cognition Motor/Sensory: no tremor and normal movement Psychiatric: Orientation: alert, oriented x 3 and cooperative Genitourinary: no CVA tenderness SP catheter functioning, no issues Lymphatic: no cervical or axillary lymphadenopathy no lymphadenopathy Results & Data Results & Data ([facility]) Vital Signs (Past 12 Hours) Vital Signs Temp Pulse Resp BP BP Pulse Ox 05/14/20 07:36 36.3 C L 61 18 152/89 H 94 05/13/20 23:25 36.6 C 63 18 130/77 92 05/13/20 21:04 75 147/75 H Laboratory Results 05/14/20 Range/Units 08:33 Sodium 137 (136-145) mmol/L Potassium 4.3 (3.5-5.1) mmol/L Chloride 105 (98-107) mmol/L Carbon Dioxide 28 (21-32) mmol/L Anion Gap 4.0 (3-11) BUN 21 H (7-18) mg/dl Creatinine 2.32 H (0.6-1.4) mg/dl Est Cr Clr Drug Dosing 24.2 ml/min Est GFR ( Amer) 29.4 Est GFR (Non-Af Amer) 25.4 BUN/Creatinine Ratio 9.1 L (10-20) Glucose 85 (70-99) mg/dl Calcium 9.1 (8.5-10.1) mg/dl Total Bilirubin 0.3 (0.2-1) mg/dl AST 14 L (15-37) U/L ALT 11 L (12-78) U/L Alkaline Phosphatase 98 (45-117) U/L Total Protein 7.2 (6.4-8.2) gm/dl Albumin 3.0 L (3.4-5.0) gm/dl Globulin 4.2 H (2.5-4.0) gm/dl Albumin/Globulin Ratio 0.7 L (0.9-2) PG Care Time/CCT Total # of Minutes Spent Total Time Spent with Patient: Total time spent is greater than 50% in coordination of care (as documented) at patient's floor/unit and/or counseling patient: Coding Level of Care Code 51304 Subseq Hosp Care Lvl 2 Diagnoses Recurrent UTI N39.0 Complicated UTI (urinary tract infection) N39.0 Presence of suprapubic catheter Z93.59 Hypothyroidism E03.9 Hypothyroidism type: acquired Anxiety and depression F41.9; F32.9 CAD (coronary artery disease), [place] coronary artery I25.10 Associated angina: without angina [place] vs. transplanted heart: [place] heart HTN (hypertension), benign I10 Stage 3b chronic kidney disease N18.32 Dyslipidemia E78.5 GERD (gastroesophageal reflux disease) K21.9 Esophagitis presence: esophagitis presence not specified S/P ureteral stent placement Z96.0 Atrial fibrillation I48.91 Atrial fibrillation type: unspecified Chronic constipation K59.09 Weakness R53.1 (1) Atrial fibrillation Atrial fibrillation type: unspecified Qualified Code(s): I48.91 - Unspecified atrial fibrillation (2) Hypothyroidism Hypothyroidism type: acquired Qualified Code(s): E03.9 - Hypothyroidism, unspecified (3) CAD (coronary artery disease), [place] coronary artery Associated angina: without angina [place] vs. transplanted heart: [place] heart Qualified Code(s): I25.10 - Atherosclerotic heart disease of [place] coronary artery without angina pectoris (4) GERD (gastroesophageal reflux disease) Esophagitis presence: esophagitis presence not specified Qualified Code(s): K21.9 - Gastro-esophageal reflux disease without esophagitis
[2020-05-14] MEDS: MEMANTINE HCL 10 MG TAB PO SCH ×2 (08:39→20:27)
[2020-05-14] MEDS: APIXABAN 2.5 MG TAB PO SCH ×2 (08:39→20:29)
[2020-05-14] MEDS: carvediloL 3.125 MG TAB PO SCH ×2 (08:39→20:30)
[2020-05-14] MEDS: SULFAMETHOXAZOLE/TRIMETHOPRIM DS 800/160MG TAB PO SCH (08:39)
[2020-05-14] MEDS: CITALOPRAM 20 MG TAB PO SCH (08:39)
[2020-05-14] MEDS: FOLIC ACID 1 MG TAB PO SCH (08:40)
[2020-05-14] MEDS: FAMOTIDINE 40 MG TABLET PO SCH (08:40)
[2020-05-14] MEDS: ISOSORBIDE MONO EXTENDED REL 60 MG TABCR PO SCH (08:40)
[2020-05-14] MEDS: buPROPion SR 100 MG TABCR PO SCH (08:40)
[2020-05-14] MEDS: FERROUS SULFATE 325 MG TAB PO SCH ×2 (08:41→17:22)
[2020-05-14] MEDS: POLYETHYLENE (MIRALAX) 17 GM PACK PO SCH ×2 (08:44→20:28)
[2020-05-14 09:14] LABS: BUN Creatinine Ratio 9.1 (10-20); Calcium 9.1 mg/dl (8.5-10.1); Creatinine Clr Calc Pharmacy 24.2 ml/min; Est GFR (African American) 29.4; Est GFR (Non-African American) 25.4; Potassium 4.3 mmol/L (3.5-5.1)
[2020-05-14 09:17] LABS: Albumin Globulin Ratio 0.7 (0.9-2); Bilirubin,Total 0.3 mg/dl (0.2-1); Globulin 4.2 gm/dl (2.5-4.0); Total Protein 7.2 gm/dl (6.4-8.2)
[2020-05-14] MEDS ORDERED: SODIUM CHLORIDE 0.9% 1000ML 1,000 ML IV SCH (09:30)
[2020-05-14] MEDS: traMADol HCL 50 MG TABLET PO PRN (14:36)
[2020-05-14] MEDS: SIMVASTATIN 80 MG TAB PO SCH (20:26)
[2020-05-14] MEDS: GABAPENTIN 300 MG CAP PO SCH (20:26)
[2020-05-14] MEDS: DONEPEZIL HCL 10 MG TAB PO SCH (20:27)
[2020-05-14] MEDS: SULFA/TRIMETH 400/80MG TAB PO SCH (20:27)
[2020-05-14] MEDS: TAMSULOSIN HCL 0.4 MG CAP PO SCH (20:29)
[2020-05-14] MEDS: BETHANECHOL CHL 25 MG TAB PO SCH (20:32)
[2020-05-15] MEDS: LEVOTHYROXINE SODIUM 112 MCG TABLET PO SCH (05:42)
[2020-05-15 07:03] LABS: Hematocrit (blood only) 36.2 % (42-52); Mean Corpuscular Hemoglobin 31.3 pg (25-34); Mean Corpuscular Hgb Conc 33.1 g/dL (32-36); Mean Corpuscular Volume 94.3 fL (80-100); Mean Platelet Volume 10.2 fL (7.4-10.4); Platelet Count 257 K/uL (130-400); RDW Coefficient of Variation 13.9 % (11.5-14.5); RDW Standard Deviation 48.1 fL (36.4-46.3); Red Blood Count 3.84 M/uL (4.7-6.1); White Blood Count 8.36 K/uL (4.8-10.8)
[2020-05-15 07:31] LABS: BUN Creatinine Ratio 10.1 (10-20); Calcium 8.5 mg/dl (8.5-10.1); Creatinine Clr Calc Pharmacy 26.3 ml/min; Est GFR (African American) 32.8; Est GFR (Non-African American) 28.3; Potassium 4.2 mmol/L (3.5-5.1)
--- NOTE | 2020-05-15 08:26 | Hospitalist Progress Note ---
Date of Service May 15, 2020 Assessment & Plan (1) Recurrent UTI: * Urine cx growing Stenotrophomonas, sensitive to Bactrim and Levaquin. In patient that presented with suprapubic discomfort s/p suprapubic catheter and b/l stents * Prior cx with same but had not been treated * he has allergy to Bactrim and Levaquin, listed as anaphylactic reactions * confirmed with his and daughter that he had a bad reaction, this was in the 80's * d/w Dr. Arcos, will proceed with desensitization with Bactrim, completed this in the ICU on 05/10 * tolerated well * now on Bactrim 800/160mg BID, will complete 10 days for complicated UTI with the suprapubic catheter * last day would be 05/21/20 * Patient initially wanted to go home with home services, however multiple discussions were had and feel that best for rehab at discharge (2) Complicated UTI (urinary tract infection): * See above (3) Presence of suprapubic catheter: * See above * Consulted urology - Dr. 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: * [employer] on levothyroxine sodium 100 mcg daily * Patient with constipation on admission and checked TSH, highly elevated at 25--> increased levothyroxine last week to 112mcg daily which has also help with his constipation issues * will need f/u TFT in 6-8 weeks outpatient (5) Anxiety and depression: * Anxiety and depression/dementia- * Continue bupropion, citalopram, donepezil, and memantine * B1 also pending and placed on thiamine replacement empirically for "fogginess" at times (6) CAD (coronary artery disease), [place] coronary artery: * CAD/hypertension/atrial fibrillation- * Continue apixaban, carvedilol, and isosorbide mononitrate (7) HTN (hypertension), benign: * See above-- continue carvedilol, isosorbide * BP quite high today in morning but appears they tend to run higher first thing in the morning before BP medications given and improve throughout the day * Consider increased isosorbide as would avoid giving additional medications given hx of anaphylaxis to multiple medications * Per most recent outpatient cardiology note, patient to be on HCTZ 12.5mg daily --> will continue to hold with elevated Cr and can resume for better BP control once normalized * added Hydralazine PRN for SBP > 170 * Continue to monitor (8) Stage 3b chronic kidney disease: * Cr ELEVATED to 2.32 on 05/14 likely secondary to decreased PO intake and Bactrim * Given IVF and continued for additional 500cc today as Cr improved to 2.12 with baseline 1.6-1.[address] Morrow's note in April 2020 however appears to be closer to 1.7-2 since last year * Encouraged to continue to push PO fluids * Labs in AM (9) Dyslipidemia: * Continue simvastatin 80 mg at bedtime (10) GERD (gastroesophageal reflux disease): * Continue famotidine (11) S/P ureteral stent placement: * See above -- with suprapubic catheter, recently placed by Urology in April (12) Atrial fibrillation: * See above, on Eliquis (reduced dosing as changed outpatient earlier this year) (13) Chronic constipation: * Fecal retention with distention 9 cm similar to previous. * Placed on IV fluids as noted above and suppositories prn. Continued on miralax BID * Continues to have multiple BMs and no issues with abdmoinal pain or constipation reported (14) Weakness: * consulted PT/OT to evaluate, recommend rehab * CM is consulted and following * Discussion with /children was undertaken at home and they feel that he would be best suited for short term rehab at discharge * CM following --> ref to [facility] sent today Dispo: continued inpatient stay Possible d/c to [facility] tomorrow if they have a bed Admission and Anticipated Discharge Date Admission Date: May 06, 2020 Subjective Patient evaluated this morning. He was up in [place] finishing breakfast. States "feeling pretty good for an old man". Discussed conversation with family and that recommendations for short rehab as best option prior to him returning home. He is agreeable to this plan. Communicated with CM and updated patient -- will need insurance auth so he may be here until tomorrow. Encouraged to continue to push oral fluids to remain hydrated and kidney function improving. No fever, chills, chest pain, shortness of breath, abdominal pain, constipation, nausea, vomiting or issues with his catheter. Review of Systems Review of Systems: All systems reviewed & are unremarkable except as noted in HPI & below Physical Exam Constitutional: well developed, well nourished and cooperative; no acute distress Eyes: + anicteric sclerae; no conjunctival abnormality and no scleral abnormality ENMT: Nose: + nasal mucous membrane abnormality (dry mm) Neck: trachea midline; neck nontender Respiratory: normal respiratory effort and able to speak in complete sentences; no respiratory distress, no labored breathing and does not use accessory muscles Auscultation: lungs clear to auscultation bilaterally; no crackles, no rhonchi and no wheezes Cardiovascular: Rate/Rhythm: regular rate and regular rhythm Heart Sounds: + murmur (3/6 systolic ejection murmur) Vessels: radial pulses present Extremities: no calf tenderness and no edema Gastrointestinal (Abdomen): normal bowel sounds, soft, nontender, no hepatosplenomegaly Inspection/Auscultation: abdomen normal to inspection, normal bowel sounds and + abdominal surgical drain present (suprapubic catheter in place); abdomen not distended Percussion/Palpation: abdomen soft; abdomen nontender and no guarding Musculoskeletal: Extremities: extremities normal to inspection Gait: normal gait Skin: no rashes and no lesions Neurologic: PERRL, EOMI, accommodation nl, no face palsy, no dysarthria moves all extremities and awake; not obtunded Speech / Cognition: normal speech and normal cognition Motor/Sensory: no tremor and normal movement Psychiatric: Orientation: alert, oriented x 3 and cooperative Genitourinary: no CVA tenderness Lymphatic: no cervical or axillary lymphadenopathy no lymphadenopathy Results & Data Results & Data ([facility]) Vital Signs (Past 12 Hours) Vital Signs Temp Pulse Resp BP Pulse Ox 05/15/20 07:22 36.7 C 65 16 170/91 H 97 05/14/20 23:11 36.6 C 58 L 16 161/78 H 92 05/14/20 20:30 64 Laboratory Results 05/15/20 05/15/20 05/15/20 Range/Units 05:56 05:56 05:56 WBC 8.36 (4.8-10.8) K/uL RBC 3.84 L (4.7-6.1) M/uL Hgb 12.0 L (14.0-18.0) g/dL Hct 36.2 L (42-52) % MCV 94.3 (80-100) fL MCH 31.3 (25-34) pg MCHC 33.1 (32-36) g/dL RDW Std Deviation 48.1 H (36.4-46.3) fL RDW Coeff of Curtis 13.9 (11.5-14.5) % Plt Count 257 (130-400) K/uL MPV 10.2 (7.4-10.4) fL Sodium 139 (136-145) mmol/L Potassium 4.2 (3.5-5.1) mmol/L Chloride 108 H (98-107) mmol/L Carbon Dioxide 29 (21-32) mmol/L Anion Gap 2.0 L (3-11) BUN 21 H (7-18) mg/dl Creatinine 2.12 H (0.6-1.4) mg/dl Est Cr Clr Drug Dosing 26.3 ml/min Est GFR ( Amer) 32.8 Est GFR (Non-Af Amer) 28.3 BUN/Creatinine Ratio 10.1 (10-20) Glucose 75 (70-99) mg/dl Calcium 8.5 (8.5-10.1) mg/dl Total Bilirubin (0.2-1) mg/dl AST (15-37) U/L ALT (12-78) U/L Alkaline Phosphatase (45-117) U/L Total Protein (6.4-8.2) gm/dl Albumin (3.4-5.0) gm/dl Globulin (2.5-4.0) gm/dl Albumin/Globulin Ratio (0.9-2) Vitamin B1 Pending 05/14/20 Range/Units 08:33 WBC (4.8-10.8) K/uL RBC (4.7-6.1) M/uL Hgb (14.0-18.0) g/dL Hct (42-52) % MCV (80-100) fL MCH (25-34) pg MCHC (32-36) g/dL RDW Std Deviation (36.4-46.3) fL RDW Coeff of Curtis (11.5-14.5) % Plt Count (130-400) K/uL MPV (7.4-10.4) fL Sodium 137 (136-145) mmol/L Potassium 4.3 (3.5-5.1) mmol/L Chloride 105 (98-107) mmol/L Carbon Dioxide 28 (21-32) mmol/L Anion Gap 4.0 (3-11) BUN 21 H (7-18) mg/dl Creatinine 2.32 H (0.6-1.4) mg/dl Est Cr Clr Drug Dosing 24.2 ml/min Est GFR ( Amer) 29.4 Est GFR (Non-Af Amer) 25.4 BUN/Creatinine Ratio 9.1 L (10-20) Glucose 85 (70-99) mg/dl Calcium 9.1 (8.5-10.1) mg/dl Total Bilirubin 0.3 (0.2-1) mg/dl AST 14 L (15-37) U/L ALT 11 L (12-78) U/L Alkaline Phosphatase 98 (45-117) U/L Total Protein 7.2 (6.4-8.2) gm/dl Albumin 3.0 L (3.4-5.0) gm/dl Globulin 4.2 H (2.5-4.0) gm/dl Albumin/Globulin Ratio 0.7 L (0.9-2) Vitamin B1 PG Care Time/CCT Total # of Minutes Spent Total Time Spent with Patient: Total time spent is greater than 50% in coordination of care (as documented) at patient's floor/unit and/or counseling patient: Coding Level of Care Code 31933 Subseq Hosp Care Lvl 3 Diagnoses Recurrent UTI N39.0 Complicated UTI (urinary tract infection) N39.0 Presence of suprapubic catheter Z93.59 Hypothyroidism E03.9 Hypothyroidism type: acquired Anxiety and depression F41.9; F32.9 CAD (coronary artery disease), [place] coronary artery I25.10 Associated angina: without angina [place] vs. transplanted heart: [place] heart HTN (hypertension), benign I10 Stage 3b chronic kidney disease N18.32 Dyslipidemia E78.5 GERD (gastroesophageal reflux disease) K21.9 Esophagitis presence: esophagitis presence not specified S/P ureteral stent placement Z96.0 Atrial fibrillation I48.91 Atrial fibrillation type: unspecified Chronic constipation K59.09 Weakness R53.1 (1) Atrial fibrillation Atrial fibrillation type: unspecified Qualified Code(s): I48.91 - Unspecified atrial fibrillation (2) Hypothyroidism Hypothyroidism type: acquired Qualified Code(s): E03.9 - Hypothyroidism, unspecified (3) CAD (coronary artery disease), [place] coronary artery Associated angina: without angina [place] vs. transplanted heart: [place] heart Qualified Code(s): I25.10 - Atherosclerotic heart disease of [place] coronary artery without angina pectoris (4) GERD (gastroesophageal reflux disease) Esophagitis presence: esophagitis presence not specified Qualified Code(s): K21.9 - Gastro-esophageal reflux disease without esophagitis
[2020-05-15] MEDS ORDERED: SODIUM CHLORIDE 0.9% 500 ML IV SCH (08:30)
[2020-05-15] MEDS: THIAMINE HCL 100 MG TAB PO SCH (09:29)
[2020-05-15] MEDS: FERROUS SULFATE 325 MG TAB PO SCH ×2 (09:29→17:36)
[2020-05-15] MEDS: MEMANTINE HCL 10 MG TAB PO SCH ×2 (09:29→20:47)
[2020-05-15] MEDS: buPROPion SR 100 MG TABCR PO SCH (09:30)
[2020-05-15] MEDS: FOLIC ACID 1 MG TAB PO SCH (09:30)
[2020-05-15] MEDS: ISOSORBIDE MONO EXTENDED REL 60 MG TABCR PO SCH (09:30)
[2020-05-15] MEDS: SULFA/TRIMETH 400/80MG TAB PO SCH ×2 (09:30→20:49)
[2020-05-15] MEDS: CITALOPRAM 20 MG TAB PO SCH (09:30)
[2020-05-15] MEDS: FAMOTIDINE 40 MG TABLET PO SCH (09:30)
[2020-05-15] MEDS: carvediloL 3.125 MG TAB PO SCH ×2 (09:31→20:44)
[2020-05-15] MEDS: APIXABAN 2.5 MG TAB PO SCH ×2 (09:31→20:46)
[2020-05-15] MEDS: BETHANECHOL CHL 25 MG TAB PO SCH ×3 (09:31→17:37)
[2020-05-15] MEDS: POLYETHYLENE (MIRALAX) 17 GM PACK PO SCH ×2 (09:37→20:59)
[2020-05-15] MEDS: PHENAZOPYRIDINE HCL 200 MG TAB PO PRN (17:36)
[2020-05-15] MEDS: DONEPEZIL HCL 10 MG TAB PO SCH (20:43)
[2020-05-15] MEDS: TAMSULOSIN HCL 0.4 MG CAP PO SCH (20:47)
[2020-05-15] MEDS: GABAPENTIN 300 MG CAP PO SCH (20:48)
[2020-05-15] MEDS: SIMVASTATIN 80 MG TAB PO SCH (20:49)
[2020-05-16] MEDS: LEVOTHYROXINE SODIUM 112 MCG TABLET PO SCH (05:42)
[2020-05-16 07:25] LABS: Hematocrit (blood only) 36.9 % (42-52); Mean Corpuscular Hemoglobin 30.7 pg (25-34); Mean Corpuscular Hgb Conc 32.5 g/dL (32-36); Mean Corpuscular Volume 94.4 fL (80-100); Mean Platelet Volume 10.2 fL (7.4-10.4); Platelet Count 243 K/uL (130-400); RDW Coefficient of Variation 13.7 % (11.5-14.5); RDW Standard Deviation 47.6 fL (36.4-46.3); Red Blood Count 3.91 M/uL (4.7-6.1); White Blood Count 8.56 K/uL (4.8-10.8)
[2020-05-16 08:00] LABS: Albumin Level 2.9 gm/dl (3.4-5.0); BUN Creatinine Ratio 9.7 (10-20); Calcium 8.8 mg/dl (8.5-10.1); Creatinine Clr Calc Pharmacy 26.6 ml/min; Est GFR (African American) 33.2; Est GFR (Non-African American) 28.7
[2020-05-16 08:03] LABS: Albumin Globulin Ratio 0.7 (0.9-2); Bilirubin,Total 0.4 mg/dl (0.2-1); Globulin 3.9 gm/dl (2.5-4.0); Total Protein 6.8 gm/dl (6.4-8.2)
[2020-05-16] MEDS: carvediloL 3.125 MG TAB PO SCH (08:47)
[2020-05-16] MEDS: buPROPion SR 100 MG TABCR PO SCH (08:47)
[2020-05-16] MEDS: FOLIC ACID 1 MG TAB PO SCH (08:47)
[2020-05-16] MEDS: ISOSORBIDE MONO EXTENDED REL 60 MG TABCR PO SCH (08:48)
[2020-05-16] MEDS: FAMOTIDINE 40 MG TABLET PO SCH (08:48)
[2020-05-16] MEDS: CITALOPRAM 20 MG TAB PO SCH (08:48)
[2020-05-16] MEDS: THIAMINE HCL 100 MG TAB PO SCH (08:48)
[2020-05-16] MEDS: SULFA/TRIMETH 400/80MG TAB PO SCH (08:48)
[2020-05-16] MEDS: FERROUS SULFATE 325 MG TAB PO SCH (08:48)
[2020-05-16] MEDS: MEMANTINE HCL 10 MG TAB PO SCH (08:49)
[2020-05-16] MEDS: APIXABAN 2.5 MG TAB PO SCH (08:49)
[2020-05-16] MEDS: POLYETHYLENE (MIRALAX) 17 GM PACK PO SCH (09:23)
--- NOTE | 2020-05-16 09:36 | Hospitalist Progress Note ---
Date of Service May 16, 2020 Assessment & Plan (1) Recurrent UTI: * Urine cx growing Stenotrophomonas, sensitive to Bactrim and Levaquin. In patient that presented with suprapubic discomfort s/p suprapubic catheter and b/l stents * Prior cx with same but had not been treated * he has allergy to Bactrim and Levaquin, listed as anaphylactic reactions * confirmed with his and daughter that he had a bad reaction, this was in the 80's * d/w Dr. Arcos, will proceed with desensitization with Bactrim, completed this in the ICU on 05/10 * tolerated well * now on Bactrim 800/160mg BID, will complete 10 days for complicated UTI with the suprapubic catheter * last day would be 05/21/20 * Patient initially wanted to go home with home services, however multiple discussions were had and feel that best for rehab at discharge (2) Complicated UTI (urinary tract infection): * See above (3) Presence of suprapubic catheter: * See above * Consulted urology - Dr. 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 * Patient with constipation on admission and checked TSH, highly elevated at 25--> increased levothyroxine last week to 112mcg daily which has also help with his constipation issues * will need f/u TFT in 6-8 weeks outpatient (5) Anxiety and depression: * Anxiety and depression/dementia- * Continue bupropion, citalopram, donepezil, and memantine * B1 also pending and placed on thiamine replacement empirically for "fogginess" at times (6) CAD (coronary artery disease), [place] coronary artery: * CAD/hypertension/atrial fibrillation- * Continue apixaban, carvedilol, and isosorbide mononitrate (7) HTN (hypertension), benign: * See above-- continue carvedilol, isosorbide * BP quite high today in morning but appears they tend to run higher first thing in the morning before BP medications given and improve throughout the day * Consider increased isosorbide as would avoid giving additional medications given hx of anaphylaxis to multiple medications * Per most recent outpatient cardiology note, patient to be on HCTZ 12.5mg daily --> will continue to hold with elevated Cr and can resume for better BP control once normalized * added Hydralazine PRN for SBP > 170 * Continue to monitor (8) Stage 3b chronic kidney disease: * Cr ELEVATED to 2.32 on 05/14 likely secondary to decreased PO intake and Bactrim * Given IVF and continued for additional 500cc today as Cr improved to 2.12 with baseline 1.6-1.[address] Morrow's note in April 2020 however appears to be closer to 1.7-2 since last year * Encouraged to continue to push PO fluids * Labs in AM (9) Dyslipidemia: * Continue simvastatin 80 mg at bedtime (10) GERD (gastroesophageal reflux disease): * Continue famotidine (11) S/P ureteral stent placement: * See above -- with suprapubic catheter, recently placed by Urology in April (12) Atrial fibrillation: * See above, on Eliquis (reduced dosing as changed outpatient earlier this year) (13) Chronic constipation: * Fecal retention with distention 9 cm similar to previous. * Placed on IV fluids as noted above and suppositories prn. Continued on miralax BID * Continues to have multiple BMs and no issues with abdmoinal pain or constipation reported (14) Weakness: * consulted PT/OT to evaluate, recommend rehab * CM is consulted and following * Discussion with /children was undertaken at home and they feel that he would be best suited for short term rehab at discharge * CM following --> ref to [facility] sent today Dispo: continued inpatient stay Possible d/c to [facility] tomorrow if they have a bed Admission and Anticipated Discharge Date Admission Date: May 06, 2020 Results & Data Results & Data ([facility]) Vital Signs (Past 12 Hours) Vital Signs Temp Pulse Resp BP Pulse Ox 05/16/20 08:34 36.4 C 65 16 170/95 H 94 05/15/20 22:54 36.7 C 66 16 142/69 H 92 Laboratory Results 05/16/20 05/16/20 05/15/20 Range/Units 06:26 06:26 15:45 WBC 8.56 (4.8-10.8) K/uL RBC 3.91 L (4.7-6.1) M/uL Hgb 12.0 L (14.0-18.0) g/dL Hct 36.9 L (42-52) % MCV 94.4 (80-100) fL MCH 30.7 (25-34) pg MCHC 32.5 (32-36) g/dL RDW Std Deviation 47.6 H (36.4-46.3) fL RDW Coeff of Curtis 13.7 (11.5-14.5) % Plt Count 243 (130-400) K/uL MPV 10.2 (7.4-10.4) fL Sodium 139 (136-145) mmol/L Potassium 4.0 (3.5-5.1) mmol/L Chloride 107 (98-107) mmol/L Carbon Dioxide 26 (21-32) mmol/L Anion Gap 6.0 (3-11) BUN 20 H (7-18) mg/dl Creatinine 2.10 H (0.6-1.4) mg/dl Est Cr Clr Drug Dosing 26.6 ml/min Est GFR ( Amer) 33.2 Est GFR (Non-Af Amer) 28.7 BUN/Creatinine Ratio 9.7 L (10-20) Glucose 76 (70-99) mg/dl Calcium 8.8 (8.5-10.1) mg/dl Total Bilirubin 0.4 (0.2-1) mg/dl AST 12 L (15-37) U/L ALT 9 L (12-78) U/L Alkaline Phosphatase 95 (45-117) U/L Total Protein 6.8 (6.4-8.2) gm/dl Albumin 2.9 L (3.4-5.0) gm/dl Globulin 3.9 (2.5-4.0) gm/dl Albumin/Globulin Ratio 0.7 L (0.9-2) COVID-19 Eval Order SARS-CoV-2, RNA, NAAT NEGATIVE (NEGATIVE) 05/15/20 Range/Units 15:45 WBC (4.8-10.8) K/uL RBC (4.7-6.1) M/uL Hgb (14.0-18.0) g/dL Hct (42-52) % MCV (80-100) fL MCH (25-34) pg MCHC (32-36) g/dL RDW Std Deviation (36.4-46.3) fL RDW Coeff of Curtis (11.5-14.5) % Plt Count (130-400) K/uL MPV (7.4-10.4) fL Sodium (136-145) mmol/L Potassium (3.5-5.1) mmol/L Chloride (98-107) mmol/L Carbon Dioxide (21-32) mmol/L Anion Gap (3-11) BUN (7-18) mg/dl Creatinine (0.6-1.4) mg/dl Est Cr Clr Drug Dosing ml/min Est GFR ( Amer) Est GFR (Non-Af Amer) BUN/Creatinine Ratio (10-20) Glucose (70-99) mg/dl Calcium (8.5-10.1) mg/dl Total Bilirubin (0.2-1) mg/dl AST (15-37) U/L ALT (12-78) U/L Alkaline Phosphatase (45-117) U/L Total Protein (6.4-8.2) gm/dl Albumin (3.4-5.0) gm/dl Globulin (2.5-4.0) gm/dl Albumin/Globulin Ratio (0.9-2) COVID-19 Eval Order Covid19 IDNow at[facility]DC SARS-CoV-2, RNA, NAAT (NEGATIVE) PG Care Time/CCT Total # of Minutes Spent Total Time Spent with Patient: Total time spent is greater than 50% in coordination of care (as documented) at patient's floor/unit and/or counseling patient: Coding Diagnoses Recurrent UTI N39.0 Complicated UTI (urinary tract infection) N39.0 Presence of suprapubic catheter Z93.59 Hypothyroidism E03.9 Hypothyroidism type: acquired Anxiety and depression F41.9; F32.9 CAD (coronary artery disease), [place] coronary artery I25.10 [place] vs. transplanted heart: [place] heart Associated angina: without angina HTN (hypertension), benign I10 Stage 3b chronic kidney disease N18.32 Dyslipidemia E78.5 GERD (gastroesophageal reflux disease) K21.9 Esophagitis presence: esophagitis presence not specified S/P ureteral stent placement Z96.0 Atrial fibrillation I48.91 Atrial fibrillation type: unspecified Chronic constipation K59.09 Weakness R53.1 (1) Hypothyroidism Hypothyroidism type: acquired Qualified Code(s): E03.9 - Hypothyroidism, unspecified (2) CAD (coronary artery disease), [place] coronary artery [place] vs. transplanted heart: [place] heart Associated angina: without angina Qualified Code(s): I25.10 - Atherosclerotic heart disease of [place] coronary artery without angina pectoris (3) GERD (gastroesophageal reflux disease) Esophagitis presence: esophagitis presence not specified Qualified Code(s): K21.9 - Gastro-esophageal reflux disease without esophagitis (4) Atrial fibrillation Atrial fibrillation type: unspecified Qualified Code(s): I48.91 - Unspecified atrial fibrillation
--- NOTE | 2020-05-16 11:58 | Discharge Summary ---
Date of Service May 16, 2020 Admission HPI Per Admitting Provider The patient is an 80-year-old male with a past medical history including CKD stage IIIb, hydronephrosis, bilateral renal masses, CHANELLE, recurrent UTI, complicated UTI, recent placement of suprapubic catheter, acute blood loss anemia, bilateral ureteral stent placement, long-term anticoagulation use, dementia, history of gastric ulcer, aortic stenosis, hypothyroidism, GERD, atrial fibrillation, anxiety and depression, dyslipidemia, history of [place], cardiac pacemaker in situ, hypertension and CAD. Patient reports had a suprapubic catheter placed on 04/30/2020, and presents with signs and symptoms as noted above. Admission Exam Per Admitting Provider The patient is awake, alert and oriented 3, normocephalic and atraumatic, lying in bed and in no acute distress. HEENT--PERRL, EOMI, mucous membranes and oropharynx dry. Neck--supple. No JVD. No bruits. Thyroid normal, trachea midline, no adenopathy. Heart--normal S1 and S2. No murmurs, rubs or gallops. Lungs--clear bilaterally, no respiratory distress, no accessory muscle use. Abdomen--normal bowel sounds and soft. Suprapubic tenderness. Nondistended, no hernias or masses, no organomegaly. Extremities--no cyanosis or clubbing. No edema. Dermatologic--normal skin turgor, normal color, no abnormal lymph nodes, no rash. Neurologic--cranial nerves II through XII grossly intact. Rheumatologic--limited exam Psychiatric--normal affect. Principal Diagnosis Complicated UTI, Constipation Discharge Exam Constitutional WD/WN, vitals as above well developed, well nourished, + frail appearing and cooperative; no acute distress Eyes + anicteric sclerae; no conjunctival abnormality and no scleral abnormality ENMT external ear and nose normal, oropharynx normal Neck trachea midline; neck nontender Respiratory normal respiratory effort, lungs clear to auscultation Cardiovascular Rate/Rhythm: regular rate and regular rhythm Heart Sounds: + murmur (3/6 systolic ejection murmur) Vessels: radial pulses present Extremities: no calf tenderness and no edema Gastrointestinal (Abdomen) Inspection/Auscultation: abdomen normal to inspection, normal bowel sounds and + abdominal surgical drain present (suprapubic catheter in place); abdomen not distended Percussion/Palpation: abdomen soft; abdomen nontender and no guarding Musculoskeletal Head/Neck/Chest: normocephalic and head atraumatic Extremities: extremities normal to inspection Skin warm, dry Neurologic PERRL, EOMI, accommodation nl, no face palsy, no dysarthria moves all extremities and awake; not obtunded Speech / Cognition: normal speech and normal cognition Motor/Sensory: no tremor and normal movement Psychiatric Orientation: alert, oriented to person, oriented to place and cooperative; + not oriented to time Genitourinary no CVA tenderness Lymphatic no cervical or axillary lymphadenopathy no lymphadenopathy Discharge Data Allergies Allergy/AdvReac Type Severity Reaction Status Date / Time captopril Allergy Severe ANAPHYLAXIS Verified 05/05/20 21:21 Iodinated Contrast Media Allergy Severe ANAPHYLAXIS Verified 05/05/20 21:21 levofloxacin Allergy Severe ANAPHYLAXIS Verified 05/05/20 21:22 morphine Allergy Severe Anaphylaxis Verified 05/05/20 21:21 oxaprozin Allergy Severe ANAPHYLAXIS Verified 05/05/20 21:22 Sulfa (Sulfonamide Allergy Severe Anaphylaxis Verified 05/10/20 14:29 Antibiotics) torsemide Allergy Severe ANAPHYLAXIS Verified 05/05/20 21:21 hydrocodone Allergy Mild RASH Verified 05/05/20 21:22 Consultations 05/06/20 00:21 ED Decision to Admit Stat 05/06/20 03:08 Consult Urology Routine 05/06/20 10:40 Consult Infectious Diseases Routine 05/08/20 12:21 Consult Allergy / Immunology Routine 05/09/20 15:15 Consult Behavioral Pediatrician Routine Consult Behavioral Pediatrician Routine Ordered Studies 05/05/20 21:34 CT abd pelvis wo con Stat Hospital Course (1) Recurrent UTI: Patient with hx b/l ureteral stents Recent change and placement of suprapubic catheter by Dr Medrano on 04/30/21 Prior urine cx growing Stenotrophomonas, and grisel albicans and was treated with course of macrobid and fluconazole Presented again with constipation (resolved and continued to have multiple BMs) and worsening suprapubic discomfort Repeat urine culture with Stenotrophomonas, sensitive to Bactrim and Levaquin and indeterminant to other. Urology consulted -- treat with abx and supportive care. Stents in good position and SP catheter intact without infection Allergy/Immunology consulted given anaphylaxis to multiple mediations --> Patient was moved to [facility] for desensitization with Bactrim, completed on 05/10 and continued treatment for 10days for complicated UTI with suprapubic catheter PT/OT consulted with recommendations for SNF for rehab at discharge. Patient initially wanted to go home, but and children unable to care for him acutely at home and requested to pursue rehab. Patient discharged this afternoon to [facility] and will need f/u with Urology/Nephrology outpatient as well as PCP. Patient with b/l renal lesions followed by Urology and would recommend further evaluation/discussion at follow up appointment Recommend that he discuss following up with Dr. Arcos for further allergy testing to avoid issues int he future if perhaps not allergic to abx as currently listed (2) Complicated UTI (urinary tract infection): See above (3) Presence of suprapubic catheter: See above Consulted urology - Dr. 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 Patient with constipation on admission and checked TSH, highly elevated at 25--> increased levothyroxine last week to 112mcg daily which has also help with his constipation issues and was continued at discharge Should have repeat TFT in 4-6 weeks with PCP and further adjustments as needed (5) Anxiety and depression: Anxiety and depression/dementia- Continued bupropion, citalopram, donepezil, and memantine B1 also pending and placed on thiamine replacement empirically for "fogginess" at times and continued (6) CAD (coronary artery disease), [place] coronary artery: CAD (SC 1997 BMS to OM with cath 2013 20-30% in-stent restenosis of OM)/hypertension/atrial fibrillation/SSS s/p pacer and replacement in 2017 Follows with [facility]- Continue apixaban, carvedilol, and isosorbide mononitrate (7) HTN (hypertension), benign: See above-- continue carvedilol, isosorbide BP quite high today in morning but appears they tend to run higher first thing in the morning before BP medications given and improve throughout the day Elevated this morning and was going to give hydralazine by BP hypotensive then back to hypertensive prior to discharge. Asymptomatic Per most recent outpatient cardiology note, patient to be on HCTZ 12.5mg daily --> will continue to hold with elevated Cr and can resume for better BP control once normalized (8) Stage 3b chronic kidney disease: Follows with Dr. Morrow. Per recent note, baseline Cr 1.6-1.8 Per most recent outpatient cardiology note, patient to be on HCTZ 12.5mg daily --> will continue to hold with elevated Cr and can resume for better BP control once normalized Cr peaked at 2.32 and continued to improve prior to d/c at 2.0 Appears baseline closer to 1.7/1.8-2 over past year with continued stent ex changes/infections Given lab slip for repeat chemistries in next 2 days --> To have started HCTZ 12.5mg per cardiology notes but this will be continue to have been held at discharge and would recommend following up with Dr. Morrow prior to starting and would ensure kidney function normalizes prior to starting. Once started if ok'd with Nephrology, likely repeat labs to ensure kidney function remains stable on this medication. Limited other options for BP control given multiple allergies (9) Dyslipidemia: Continued simvastatin 80 mg at bedtime (10) GERD (gastroesophageal reflux disease): Continued famotidine (11) S/P ureteral stent placement: See above -- with suprapubic catheter, recently placed by Urology in April (12) Atrial fibrillation: See above, on Eliquis (reduced dosing as changed outpatient earlier this year) Also with hx SSS s/p Pacer 2008 [facility], replaced 2016 and follows with [facility] (13) Chronic constipation: Fecal retention with distention 9 cm similar to previous. Placed on IV fluids as noted above and suppositories prn. Continued on miralax BID Continues to have multiple BMs and no issues with abdominal pain or constipation reported (14) Weakness: consulted PT/OT to evaluate, recommend rehab Discussion with /children was undertaken at home and they feel that he would be best suited for short term rehab at discharge CM following --> ref to [facility] and patient was discharged for acute rehab. Dementia Continued Donepezil 10mg daily Discontinued bethanechol due to anticholinergic effects and to prevent confusion B1 pending at d/c but continued on supplementation empirically. Can d/c if wnl Recs to f/u with PCP, Urology, Nephrology and Allergy/Immunology post-discharge Total Time Total Time Spent Total Time Spent (In Minutes): 120 Discharge Plan Discharge Items Patient Disposition: Transfer Residential Fac Reason For Visit: UTI,RECENT SUPRAPUBIC CATH,B/L URETERAL STENTS Discharge Diagnosis: Complicated UTI, Constipation Goals: You have been hospitalized for an acute medical problem. During your stay at [facility], we have made an effort to correct the problem that brought you to the hospital while keeping you as comfortable as possible. Medications were used to bring your condition under control and your discharge instructions will include directions for any medications you should take after leaving the hospital. Please make sure you see your Primary Care Provider as part of your follow up plan. Activity: Resume your previous activity Activity Comment: advance with therapy at rehab Non-emergency contact: Primary Care Provider, Clinic Lead and Urologist Call non-emergency contact if: you have any medication questions, your symptoms worsen and your pain is not controlled Follow-up/Referrals: Celina Saunders DO [Primary Care Provider] - 05/21/20 10:20 am Shari Morrow MD [Physician] - 05/29/20 11:40 am ([facility] office) William Medrano DO [Physician] - ( ) Diet: Heart Healthy Ambulatory Orders: Basic Metabolic Panel (Routine) Timeframe: 2 Days Location: Determined by Patient Ordered By: Koki Malcolm Attending Provider Instructions: You have been hospitalized for recurrent UTI and constipation. Constipation has resolved and you continue to have bowel movements and can utilize miralax and colace as needed along with enemas to help prevent constipation. Your thyroid function was checked and was elevated and means your hypothyroidism has been under treated. This can worsen constipation and memory issues and your dose was increased to 112mcg by mouth daily and you should follow up with your PCP about getting repeat testing in 6-8 weeks outpatient for further titrations if needed. You have also been started on thiamine to help improve cognition as well. Urology was consulted and felt stents in good position along with suprapubic catheter site. They wanted to treat infection and you were moved to the ICU for desensitization for Bactrim which will be continued for another 5 days, to be completed on 05/21. If you develop the need for this medication again you will need to ahve the same protocol to prevent reaction. You should discuss with your PCP about follow up with allergy/immunology to have further testing to see about true allergies or if maybe you have grown out of some of these. Your bethanechol has been discontinued as this can also worsen confusion and you have been making good urine. Your kidney function is slightly higher than baseline but is improving and you should continue to push oral fluids and have repeat kidney function testing in the next 2 days to ensure continues to improve. You should have follow up with Nephrology as well to evaluate your progress int he next couple of weeks. You have been set up for rehab at discharge to gain strength prior to returning home. You should follow up with PCP in next week after discharge. Please return to the emergency department with any fever, worsening pain, inability to urinate or for any other issues that are concerning for you. It has been a pleasure being a part of the medical team providing for you during your hospitalization. Take care! Pending Studies at Discharge: Yes Studies:: B1 Stand-Alone Forms: My [facility] Skilled Items Patient informed of condition?: Yes DNR: No Discharge Level of Care: Skilled Communicable Disease: No Discharge Prognosis: Stable Lines: None Urinary Catheter: Yes Medications and DC Order Prescriptions: New sulfamethoxazole-trimethoprim [Bactrim] 400-80 mg Tablet 1 tab PO BID Qty: 11 RF: 0 tamsulosin 0.4 mg Capsule 0.4 mg PO QPM Qty: 30 RF: 0 bisacodyl 10 mg Suppository 10 mg CO DAILY PRN (Reason: constipation) Qty: 12 RF: 0 polyethylene glycol 3350 [Miralax] 17 gram Powder In Packet 17 g PO BID PRN (Reason: constipation) Qty: 14 RF: 0 levothyroxine [Synthroid] 112 mcg Tablet 112 mcg PO DAILYBB Qty: 30 RF: 0 thiamine HCl (vitamin B1) [Vitamin B-1] 100 mg Tablet 100 mg PO QAM Qty: 30 RF: 0 Continued carvedilol 3.125 mg tablet 3.125 mg PO BID Qty: 180 RF: 1 ferrous sulfate 325 mg (65 mg iron) tablet,delayed release (DR/EC) 325 mg PO BIDM Qty: 180 RF: 1 folic acid 1 mg tablet 1 mg PO QAM Qty: 90 RF: 1 levothyroxine 100 mcg tablet 100 mcg PO HS Qty: 90 RF: 1 simvastatin 80 mg tablet 80 mg PO HS Qty: 90 RF: 1 gabapentin 300 mg capsule 300 mg PO HS Qty: 90 RF: 1 apixaban 2.5 mg tablet 2.5 mg PO BID Qty: 180 RF: 1 isosorbide mononitrate 60 mg tablet extended release 24 hr 60 mg PO QAM Qty: 90 RF: 1 tamsulosin 0.4 mg capsule 0.4 mg PO QPM Qty: 90 RF: 1 donepezil 10 mg tablet 10 mg PO HS Qty: 90 RF: 3 memantine [Namenda] 10 mg tablet 10 mg PO BID Qty: 180 RF: 3 epinephrine [EpiPen] 0.3 mg/0.3 mL Auto-Injector 0.3 mg IM UD PRN (Reason: Allergic Reaction) RF: 0 acetaminophen 325 mg Tablet 650 mg PO Q4H PRN (Reason: pain) Qty: 30 RF: 0 citalopram 10 mg tablet 10 mg PO QAM RF: 0 famotidine [Pepcid] 40 mg tablet 40 mg PO QAM RF: 0 bupropion HCl 100 mg tablet sustained-release 12 hr 100 mg PO QAM RF: 0 oxybutynin chloride 5 mg tablet 5 mg PO Q8H PRN (Reason: bladder spasms) Qty: 14 RF: 0 phenazopyridine [Pyridium] 200 mg tablet 200 mg PO Q8H PRN (Reason: pain) Qty: 10 RF: 0 tramadol 50 mg tablet 50 mg PO TID PRN (Reason: Pain) RF: 0 Discontinued trimethoprim 100 mg tablet 100 mg PO Q12H 10 Days Qty: 20 RF: 0 bethanechol chloride 50 mg tablet 50 mg PO QID RF: 0 fluconazole 100 mg tablet 100 mg PO QAM RF: 0 No Action hydrochlorothiazide 25 mg tablet RF: 0 Discharge Orders: Discharge Order (Routine); Ordered 05/16/20 Ordered By: Koki Shepard Admission Data Admit Date/Time: 05/06/20 01:26 Attending Provider: Ashvin Bloom Admit Provider: Dmitriy Asif Primary Care Provider: Celina Saunders Other Providers: Chan Gillette [facility] ; Zheng Darby ; Dmitriy Asif ; William Medrano ; Travon Greenwood ; Johny Joaquin ; Fadi Martinez I. ; Kapil Ross II ; Yael Brandon ; Trip Castañeda ; Marco Arcos Other Interventions: Discharge Summary Assessment (RN) Last Done: 05/16/20 11:12 Coding Level of Care Code D/C Day Management >30 mins Diagnoses Recurrent UTI N39.0 Complicated UTI (urinary tract infection) N39.0 Presence of suprapubic catheter Z93.59 Hypothyroidism E03.9 Hypothyroidism type: acquired Anxiety and depression F41.9; F32.9 CAD (coronary artery disease), [place] coronary artery I25.10 Associated angina: without angina [place] vs. transplanted heart: [place] heart HTN (hypertension), benign I10 Stage 3b chronic kidney disease N18.32 Dyslipidemia E78.5 GERD (gastroesophageal reflux disease) K21.9 Esophagitis presence: esophagitis presence not specified S/P ureteral stent placement Z96.0 Atrial fibrillation I48.91 Atrial fibrillation type: unspecified Chronic constipation K59.09 Weakness R53.1
--- NOTE | 2020-05-23 11:48 | Coding Query ---
CODING QUERY To promote full compliance with coding requirements relating to patient care, provider participation is requested in all cases of body recall instructor uncertainty. Please assist us with the question(s) below: Coding Question(s): Patient admitted with UTI and suprapubic catheter which was recently changed. DS /progress notes document "Complicated UTI". Please document, if known or suspected the source of infection . Thanks for your help! Trevin Bull [facility] Physician's Response(s): Catheter assocoated uti poa Principal Diagnosis: "that condition established after study, to be chiefly responsible for occasioning the admission of the patient to the hospital for care." Co-Existing Principal Diagnosis: "when two or more diagnoses equally meet the criteria for principal diagnosis as determined by the circumstances of admission, diagnostic work up, and/or therapy provided, and the Alphabetic Index, Tabular List, or another coding guideline does not provide sequencing direction, any one of the diagnoses may be sequenced first." "When the physician has documented what appears to be a current diagnosis in the body of the record, but has not included the diagnosis in the final diagnostic statement, the physician should be asked whether the diagnosis should be added." (Source [facility] 2 QTR90. p3-4) FANNY
== END 2020-05-16 15:49 | DRG 699 ==
LOC: ED 19:54 → 3W 05-06 01:26 → SUATTDRO 05-06 01:26 → 3W 05-06 02:35 → 1E 05-09 15:10 → 3W 05-10 13:43

== ENCOUNTER 2020-07-05 15:52 | Inpatient (IN) ==
[2020-07-05] MEDS ORDERED: SODIUM CHLORIDE 0.9% 1000ML 1,000 ML IV SCH (16:15)
[2020-07-05 16:22] LABS: Basophils # (auto) 0.02 K/uL (0-0.2); Basophils % (auto) 0.2 %; Eosinophils # (auto) 0.21 K/uL (0-0.5); Eosinophils % (auto) 2.6 %; Hematocrit (blood only) 36.6 % (42-52); Hemoglobin 11.7 g/dL (14.0-18.0); Immature Granulocytes # (auto) 0.03 K/uL (0.00-0.02); Immature Granulocytes % (auto) 0.4 %; Lymphocytes % (auto) 24.9 %; Mean Corpuscular Hemoglobin 30.8 pg (25-34); Mean Corpuscular Volume 96.3 fL (80-100); Mean Platelet Volume 9.9 fL (7.4-10.4); Monocytes % (auto) 12.5 %; Neutrophils # (auto) 4.76 K/uL (1.4-6.5); Neutrophils % (auto) 59.4 %; Platelet Count 250 K/uL (130-400); RDW Coefficient of Variation 14.5 % (11.5-14.5); RDW Standard Deviation 51.7 fL (36.4-46.3); White Blood Count 8.02 K/uL (4.8-10.8)
[2020-07-05] MEDS ORDERED: SODIUM CHLORIDE 0.9% 1000ML 1,000 ML IV ONE (16:38)
[2020-07-05] MEDS ORDERED: PIPERACILLIN/TAZOBACTAM 4.5 GM/120 ML BAG IV STA (16:38)
[2020-07-05 16:39] LABS: Alanine Aminotransferase 10 U/L (12-78); Aspartate Aminotransferase 10 U/L (15-37); BUN Creatinine Ratio 10.9 (10-20); Blood Urea Nitrogen 25 mg/dl (7-18); Calcium 8.5 mg/dl (8.5-10.1); Carbon Dioxide 26 mmol/L (21-32); Chloride 107 mmol/L (98-107); Est GFR (African American) 29.6 ml/min; Est GFR (Non-African American) 25.5 ml/min; Glucose 131 mg/dl (70-99); Magnesium 2.9 mg/dl (1.8-2.4); Potassium 3.9 mmol/L (3.5-5.1); Sodium 138 mmol/L (136-145)
--- NOTE | 2020-07-05 16:43 | XRay Report ---
XR chest 1V portable HISTORY: SEPSIS COMPARISON: Chest 05/05/2020. FINDINGS: No pneumothorax or no pleural effusions. The heart remains normal in size. There is left-si ded dual-chamber pacemaker. Calcifications are again noted within the aortic knob. No new focal lung consolidations to suggest pneumonia. No evidence for pulmonary edema. IMPRESSION: No significant change compared to the prior study. No acute process. ACT 112: Negative or not required by law. Electronically signed by: Travis Cabrera M.D. 07/05/2020 4:42 PM
[2020-07-05 16:44] LABS: Albumin Globulin Ratio 0.7 (0.9-2); Alkaline Phosphatase 108 U/L (45-117); Bilirubin,Total 0.4 mg/dl (0.2-1); Globulin 4.5 gm/dl (2.5-4.0); Total Protein 7.5 gm/dl (6.4-8.2); Troponin I < 0.015 ng/ml (0-0.045)
--- NOTE | 2020-07-05 17:34 | Emergency Department Note ---
History of Present Illness General Chief complaint: Illness Stated complaint: DIZZY AND LOW BLOOD PRESSSURE Time Seen by Provider: 07/05/20 16:00 Source: patient and family Mode of arrival: EMS Limitations: no limitations History of Present Illness Provider complaint: Weak, dizzy, low blood pressure Onset (ago): day(s) 2 Associated symptoms: + loss of appetite; no chest pain, no fever/chills, no nausea/vomiting and no shortness of breath Treatments prior to arrival: none This is an 80-year-old male presents the emergency department with family with concern for worsening weakness, dizziness, and is currently being treated with an antibiotic for urinary tract infection. Patient has a chronic suprapubic catheter and does follow with urology. After her visit last week, he states he was started on another antibiotic that starts with a "a". Family states he has had multiple prior UTIs, and urology recently suggested he may need evaluation of infectious disease. Patient lives with family. They deny noting any fevers or chills, states he has been more fatigued and had a decreased appetite recently. No overt vomiting or diarrhea. Patient denies abdominal pain or back pain, chest pain or trouble breathing. Patient was found to be significantly hypotensive on arrival despite being afebrile. They state patient's catheter has been draining appropriately and they have not noticed any blood or clots. Pt seen during a time of high acuity and national emergency pandemic while wearing PPE. Home Medications Medication Instructions Recorded Confirmed Type epinephrine [EpiPen] 0.3 mg IM UD PRN 06/05/18 07/05/20 History acetaminophen 650 mg PO Q4H PRN #30 tab 08/14/19 07/05/20 Rx carvedilol 3.125 mg tablet 3.125 mg PO BID #180 tab 10/04/19 07/05/20 Rx ferrous sulfate 325 mg (65 mg 325 mg PO BIDM #180 tab 10/04/19 07/05/20 Rx iron) tablet,delayed release folic acid 1 mg tablet 1 mg PO QAM #90 tab 10/04/19 07/05/20 Rx simvastatin 80 mg tablet 80 mg PO HS #90 tab 10/04/19 07/05/20 Rx donepezil 10 mg tablet 10 mg PO HS #90 tab 02/06/20 07/05/20 Rx memantine 10 mg tablet 10 mg PO BID #180 tab 02/06/20 07/05/20 Rx bupropion HCl 100 mg PO QAM 04/13/20 07/05/20 History citalopram 10 mg PO QAM 04/13/20 07/05/20 History apixaban 2.5 mg tablet 2.5 mg PO BID #180 tab 04/20/20 07/05/20 Rx isosorbide mononitrate 60 mg 60 mg PO QAM #90 tab 04/30/20 07/05/20 Rx tablet,extended release 24 hr oxybutynin chloride 5 mg PO Q8H PRN #14 tab 04/30/20 07/05/20 Rx phenazopyridine [Pyridium] 200 mg PO Q8H PRN #10 tab 04/30/20 07/05/20 Rx bisacodyl 10 mg DC DAILY PRN #12 ea 05/16/20 07/05/20 Rx polyethylene glycol 3350 [Miralax] 17 g PO BID PRN #14 ea 05/16/20 07/05/20 Rx tamsulosin 0.4 mg PO QPM #30 cap 05/16/20 07/05/20 Rx thiamine HCl (vitamin B1) [Vitamin 100 mg PO QAM #30 tab 05/16/20 07/05/20 Rx B-1] gabapentin 300 mg capsule 300 mg PO HS #90 cap 06/04/20 07/05/20 Rx levothyroxine 100 mcg tablet 100 mcg PO HS #90 tab 06/18/20 07/05/20 Rx levothyroxine 112 mcg tablet 112 mcg PO DAILYBB #90 tab 06/18/20 07/05/20 Rx ampicillin 500 mg capsule 500 mg PO QID 10 Days #40 cap 06/26/20 07/05/20 Rx famotidine 40 mg tablet 40 mg PO QAM #90 tab 07/02/20 07/05/20 Rx tramadol 50 mg tablet 50 mg PO TID PRN #60 tab 07/05/20 Rx Allergies Allergy/AdvReac Type Severity Reaction Status Date / Time captopril Allergy Severe ANAPHYLAXIS Verified 07/05/20 16:12 Iodinated Contrast Media Allergy Severe ANAPHYLAXIS Verified 07/05/20 16:12 levofloxacin Allergy Severe ANAPHYLAXIS Verified 07/05/20 16:12 morphine Allergy Severe Anaphylaxis Verified 07/05/20 16:12 oxaprozin Allergy Severe ANAPHYLAXIS Verified 07/05/20 16:12 Sulfa (Sulfonamide Allergy Severe Anaphylaxis Verified 07/05/20 16:12 Antibiotics) torsemide Allergy Severe ANAPHYLAXIS Verified 07/05/20 16:12 hydrocodone Allergy Mild RASH Verified 07/05/20 16:12 Past Med/Surg History Medical History Acute blood loss anemia Acute kidney injury Acute kidney injury Acute UTI Anxiety and depression Aortic stenosis Mild (MG 11 mmHg, UZMA 1.1 cm2) per 11/2015 ECHO. Valve not well visualized on echo 03/22/20. Atrial fibrillation dx 2017 >on Eliquis, no cardioversions Avascular necrosis of bone of left hip (~05/2020) severe avascular necrosis and severe osteoarthritis to left hip joint with moderate advanced right hip osteoarthritis BPH w urinary obs/LUTS CAD (coronary artery disease), [place] coronary artery S/P BMS to OM (1997). Caths also 2006, 2008 and 2013, no stents placed. Most recent cath in 2013 showed no angiographically significant stenosis other than 20-30% in-stent restenosis of OM. Cardiac pacemaker in situ Implanted 2008 (03/[address] [facility]. Replaced 2016. > Last pacer check 04/10/20 [facility] > Dr. Hodge Chronic pain Cough Dementia Dyslipidemia Encounter for pre-operative examination GERD (gastroesophageal reflux disease) controlled History of kidney stones History of KS (myocardial infarction) 1997 HTN (hypertension), benign Hx of gastric ulcer Hypothyroidism Iron deficiency anemia Low blood pressure pt's reports this has been happening lately, last reading was 92/65 at cardiology visit on 04/10/20. Cardiology notes 'clinically stable.' Sleep apnea NO DEVICE Stage 3b chronic kidney disease Surgical History H/O total knee replacement RIGHT/LEFT History of cardiac cath MULTIPLE WITH TOTAL 4 STENTS > LAST ONE 3 YRS AGO > [facility] History of cataract surgery B/L History of colonoscopy History of lithotripsy History of lumbar fusion History of prostate surgery PARTIAL PROSTECTOMY History of thyroidectomy History of tooth extraction all teeth S/P cystoscopy with ureteral stent placement 12/29/19 Dr. William Medrano- Cystoscopy, Bilateral retrograde pyelogram, Bilateral ureteral stent exchange, Left aspiration and culture S/P TURP S/P ureteral stent placement Cysto, B/L RPG, right ureteroscopy, stent exchange: 07/06/18: LMA#5 at [facility] CYSTO STENT EXCHANGE 11/2018 Family History Father Diabetes Mother Coronary heart disease Hypertension Brother Seizure Denies family history of Ovarian cancer Prostate cancer Myocardial infarction Breast cancer Colorectal cancer Social History Smoking Status: Never smoker Tobacco Type: Cigarettes Second Hand Exposure: No; Do You Dip or Chew Tobacco: No; Tobacco Cessation Education Requested by Patient: No Hx Alcohol Use: No Hx Substance Use: No Preferred Language: Arabic Communication Ability: Effective Visual Impairment: No Limitations 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: No Beliefs That Will Affect Care: None marital status: Current Living Situation: Spouse and Family Current Living Situation Comment: per RN report from ER, pt lives with and daughter current occupational status: retired How many Children do You have: 3 Other Information That Helps Us Care for You: No Feels Safe at Home: Yes Safety Concerns: Feels Safe At This Time Childhood Exposure to Second-Hand Smoke: No caffeine: Yes (Coffee 3 per day.) during the past year weight has: remained stable Dental Care, Regularly: No Physical Activity Frequency: Does not Exercise Seatbelt Use: always Sunscreen Use: No Assistive Devices: Walker Review of Systems See HPI for pertinent positives & negatives. and A total of 10 systems reviewed and were otherwise negative Physical Exam Vital Signs Vital Signs - 24 hr 07/05/20 15:57 07/05/20 16:04 07/05/20 16:09 Temperature 36 C L Temperature Source Temporal Artery Scan Pulse Rate 63 64 Pulse Rate from SpO2 Sensor Respiratory Rate 18 22 20 Respiratory Effort / Characteristics Non-Labored Non-Labored Spontaneous Respiratory Depth Normal Blood Pressure 69/50 L 104/62 Blood Pressure Mean 56 76 Pulse Oximetry 94 97 Oxygen Delivery Method Room Air Room Air Sepsis Recent Fever Within 48 Hours No Sepsis New/Unexplained Change in Mental Status No Sepsis Action Taken by Nursing No Action Required 07/05/20 16:18 07/05/20 16:30 07/05/20 17:02 Temperature Temperature Source Pulse Rate 62 57 L 56 L Pulse Rate from SpO2 Sensor 57 L Respiratory Rate 18 27 H Respiratory Effort / Characteristics Respiratory Depth Blood Pressure 87/58 L 131/73 Blood Pressure Mean 67 92 Pulse Oximetry 97 97 Oxygen Delivery Method Room Air Sepsis Recent Fever Within 48 Hours Sepsis New/Unexplained Change in Mental Status Sepsis Action Taken by Nursing 07/05/20 17:31 07/05/20 18:00 07/05/20 18:30 Temperature Temperature Source Pulse Rate 55 L 54 L 55 L Pulse Rate from SpO2 Sensor 54 L 55 L Respiratory Rate 20 20 20 Respiratory Effort / Characteristics Respiratory Depth Blood Pressure 130/67 128/66 133/79 Blood Pressure Mean 88 86 97 Pulse Oximetry 96 95 Oxygen Delivery Method Sepsis Recent Fever Within 48 Hours Sepsis New/Unexplained Change in Mental Status Sepsis Action Taken by Nursing GENERAL: alert, unwell appearing, well nourished, no distress, non-toxic EYE EXAM: normal conjunctiva, PERRL and EOM's grossly intact OROPHARYNX: no exudate, no erythema, lips, buccal mucosa, and tongue normal and mucous membranes are moist NECK: supple, no nuchal rigidity, no adenopathy, non-tender LUNGS: Clear to auscultation. Normal chest wall mechanics, no w/r/r HEART: no murmurs, S1 normal and S2 normal ABDOMEN: abdomen soft, non-tender, normo-active bowel sounds, no masses, no rebound or guarding. Suprapubic catheter noted, no discharge. Drainage into bag is yellow, no obvious hematuria or clots. BACK: Back is symmetrical on inspection and there is no deformity, no midline tenderness, no CVA tenderness. SKIN: no rashes and no bruising UPPER EXTREMITIES: upper extremities are grossly normal. FROM, nml pulses b/l. LOWER EXTREMITIES: 1+ pitting edema. FROM, nml pulses b/l. NEURO EXAM: Normal sensorium, poor historian regarding his medical history and recent events, cranial nerves II-XII grossly intact, normal speech, no gross weakness of arms, no gross weakness of legs. Gross sensation intact. Course Course 1729: Patient and family at bedside updated on results. Patient states he still feels weak and dizzy. 1 L has been infused and the second is infusing at this time. IV Zosyn has completed. 1751: Discussed with Dr. Brown. Administered Medications Acetaminophen (Acetaminophen 325 Mg Tab) 650 mg PO Q4H PRN PRN Reason: Pain or Fever Stop: 08/04/20 21:25 Last Admin: 07/06/20 20:21 Dose: 650 mg Documented by: [id number] Apixaban (Apixaban 2.5 Mg Tab) 2.5 mg PO BID [facility] Stop: 08/04/20 21:25 Last Admin: 07/07/20 08:03 Dose: 2.5 mg Documented by: [id number] Admin: 07/06/20 20:12 Dose: 2.5 mg Documented by: [id number] Admin: 07/06/20 07:58 Dose: 2.5 mg Documented by: [id number] Admin: 07/05/20 22:43 Dose: 2.5 mg Documented by: [id number] Bisacodyl (Bisacodyl 10 Mg Supp) 10 mg DC DAILY [facility] Stop: 08/04/20 21:25 Last Admin: 07/07/20 08:09 Dose: 10 mg Documented by: [id number] Admin: 07/06/20 09:28 Dose: 10 mg Documented by: [id number] Admin: 07/05/20 22:43 Dose: Not Given Documented by: [id number] Bupropion HCl (Bupropion Sr 100 Mg Tabcr) [facility] Stop: 08/05/20 08:59 Last Admin: 07/07/20 08:03 Dose: 100 mg Documented by: [id number] Admin: 07/06/20 07:58 Dose: 100 mg Documented by: [id number] Citalopram Hydrobromide (Citalopram 20 Mg Tab) 10 mg PO QAM [facility] Stop: 08/05/20 08:59 Last Admin: 07/07/20 08:04 Dose: 10 mg Documented by: [id number] Admin: 07/06/20 07:59 Dose: 10 mg Documented by: [id number] Donepezil HCl (Donepezil Hcl 10 Mg Tab) 10 mg PO HS [facility] Stop: 08/04/20 21:25 Last Admin: 07/06/20 20:12 Dose: 10 mg Documented by: [id number] Admin: 07/05/20 22:43 Dose: 10 mg Documented by: [id number] Famotidine (Famotidine 40 Mg Tablet) 40 mg PO QAM [facility] Stop: 08/05/20 08:59 Last Admin: 07/07/20 08:03 Dose: 40 mg Documented by: [id number] Admin: 07/06/20 07:59 Dose: 40 mg Documented by: [id number] Folic Acid (Folic Acid 1 Mg Tab) 1 mg PO QAM [facility] Stop: 08/05/20 08:59 Last Admin: 07/07/20 08:04 Dose: 1 mg Documented by: [id number] Admin: 07/06/20 07:59 Dose: 1 mg Documented by: [id number] Gabapentin (Gabapentin 300 Mg Cap) 300 mg PO HS [facility] Stop: 08/04/20 21:25 Last Admin: 07/06/20 20:12 Dose: 300 mg Documented by: [id number] Admin: 07/05/20 22:44 Dose: 300 mg Documented by: [id number] Piperacillin Sod/Tazobactam (Sod 3.375 gm/ Dextrose) 115 mls @ 28.75 mls/hr IV Q8H FLEX; Protocol Stop: 07/16/20 00:00 Last Infusion: 07/07/20 12:09 Dose: 0 mls/hr Documented by: [id number] Admin: 07/07/20 08:09 Dose: 28.8 mls/hr Documented by: [id number] Infusion: 07/07/20 04:40 Dose: 0 mls/hr Documented by: [id number] Admin: 07/07/20 00:40 Dose: 28.8 mls/hr Documented by: [id number] Infusion: 07/06/20 20:11 Dose: 0 mls/hr Documented by: [id number] Admin: 07/06/20 15:51 Dose: 28.8 mls/hr Documented by: [id number] Infusion: 07/06/20 12:00 Dose: 0 mls/hr Documented by: [id number] Admin: 07/06/20 07:54 Dose: 28.8 mls/hr Documented by: [id number] Infusion: 07/06/20 05:10 Dose: 0 mls/hr Documented by: [id number] Admin: 07/06/20 01:25 Dose: 28.8 mls/hr Documented by: [id number] Vancomycin HCl 1,250 mg/ (Sodium Chloride) 275 mls @ 200 mls/hr IV DAILY@1200 FLEX Stop: 07/15/20 11:59 Last Admin: 07/07/20 12:16 Dose: 200 mls/hr Documented by: [id number] Infusion: 07/06/20 13:32 Dose: 0 mls/hr Documented by: [id number] Admin: 07/06/20 12:05 Dose: 200 mls/hr Documented by: [id number] Isosorbide Mononitrate (Isosorbide [place] Extended Rel 60 Mg Tabcr) 60 mg PO QAM [facility] Stop: 08/05/20 08:59 Last Admin: 07/07/20 08:03 Dose: 60 mg Documented by: [id number] Admin: 07/06/20 08:00 Dose: 60 mg Documented by: [id number] Lactobacillus Acidoph/Casei/Rhamnos (Advanced Probiotic 1250 Mg Capsule) 2 cap PO DAILY [facility] Stop: 08/06/20 10:29 Last Admin: 07/07/20 11:15 Dose: 2 cap Documented by: [id number] Levothyroxine Sodium (Levothyroxine Sodium 100 Mcg Tablet) 100 mcg PO DAILY@2200 [facility] Stop: 08/04/20 21:59 Last Admin: 07/06/20 20:13 Dose: 100 mcg Documented by: [id number] Admin: 07/06/20 00:05 Dose: 100 mcg Documented by: [id number] Memantine (Memantine Hcl 10 Mg Tab) 10 mg PO BID [facility] Stop: 08/04/20 21:25 Last Admin: 07/07/20 08:02 Dose: 10 mg Documented by: [id number] Admin: 07/06/20 20:12 Dose: 10 mg Documented by: [id number] Admin: 07/06/20 08:00 Dose: 10 mg Documented by: [id number] Admin: 07/05/20 22:44 Dose: 10 mg Documented by: [id number] Oxybutynin Chloride (Oxybutynin Chloride 5 Mg Tab) 5 mg PO Q8H PRN PRN Reason: bladder spasms Stop: 08/04/20 21:25 Last Admin: 07/07/20 08:03 Dose: 5 mg Documented by: [id number] Phenazopyridine HCl (Phenazopyridine Hcl 200 Mg Tab) 200 mg PO Q8H PRN PRN Reason: pain Stop: 08/04/20 21:25 Last Admin: 07/07/20 08:03 Dose: 200 mg Documented by: [id number] Polyethylene Glycol (Polyethylene (Miralax) 17 Gm Pack) 17 gm PO BID [facility] Stop: 08/04/20 21:25 Last Admin: 07/07/20 08:03 Dose: 17 gm Documented by: [id number] Admin: 07/06/20 20:12 Dose: 17 gm Documented by: [id number] Admin: 07/06/20 08:00 Dose: 17 gm Documented by: [id number] Admin: 07/05/20 22:43 Dose: 17 gm Documented by: [id number] Simvastatin (Simvastatin 80 Mg Tab) 80 mg PO HS [facility] Stop: 08/04/20 21:25 Last Admin: 07/06/20 20:12 Dose: 80 mg Documented by: [id number] Admin: 07/05/20 22:42 Dose: 80 mg Documented by: [id number] Tamsulosin HCl (Tamsulosin Hcl 0.4 Mg Cap) 0.4 mg PO QPM FLEX Stop: 08/04/20 21:25 Last Admin: 07/06/20 20:12 Dose: 0.4 mg Documented by: [id number] Admin: 07/05/20 22:43 Dose: 0.4 mg Documented by: [id number] Thiamine HCl (Thiamine Hcl 100 Mg Tab) 100 mg PO QAM [facility] Stop: 08/05/20 08:59 Last Admin: 07/07/20 08:03 Dose: 100 mg Documented by: [id number] Admin: 07/06/20 08:01 Dose: 100 mg Documented by: [id number] Discontinued Medications Amlodipine Besylate (Amlodipine Besylate 5 Mg Tab) 5 mg PO NOW ONE Stop: 07/07/20 10:16 Last Admin: 07/07/20 10:52 Dose: Not Given Documented by: [id number] Sodium Chloride (Nss 1000ml) 1,000 mls @ 999 mls/hr IV .Q1H1M [facility] Stop: 07/05/20 17:15 Last Infusion: 07/05/20 17:47 Dose: 0 mls/hr Documented by: [id number] Admin: 07/05/20 16:38 Dose: 999 mls/hr Documented by: [id number] Piperacillin Sod/Tazobactam Sod (Zosyn) 4.5 gm in 120 mls @ 240 mls/hr IV NOW STA Stop: 07/05/20 17:07 Last Infusion: 07/05/20 17:21 Dose: 0 mls/hr Documented by: [id number] Admin: 07/05/20 16:51 Dose: 240 mls/hr Documented by: [id number] Sodium Chloride (Nss 1000ml) 1,000 mls @ 999 mls/hr IV .Q1H1M ONE Stop: 07/05/20 17:38 Last Infusion: 07/05/20 21:52 Dose: 0 mls/hr Documented by: [id number] Admin: 07/05/20 16:51 Dose: 999 mls/hr Documented by: [id number] Sodium Chloride (Nss 1000ml) 1,000 mls @ 125 mls/hr IV .Q8H [facility] Stop: 07/06/20 13:25 Last Infusion: 07/06/20 08:23 Dose: 0 mls/hr Documented by: [id number] Admin: 07/06/20 06:01 Dose: 125 mls/hr Documented by: [id number] Infusion: 07/06/20 06:01 Dose: 125 mls/hr Documented by: [id number] Admin: 07/05/20 22:47 Dose: 125 mls/hr Documented by: [id number] Vancomycin HCl 1,750 mg/ (Sodium Chloride) 535 mls @ 200 mls/hr IV 2230 ONE Stop: 07/06/20 01:10 Last Infusion: 07/06/20 01:25 Dose: 0 mls/hr Documented by: [id number] Admin: 07/05/20 22:41 Dose: 200 mls/hr Documented by: [id number] Miscellaneous (Patient's Height And/Or Weight Needed) 1 ea N/A Q2H [facility] Stop: 08/04/20 21:44 Last Admin: 07/05/20 22:57 Dose: Not Given Documented by: [id number] Critical Care Time Critical Care Time: Yes Total Critical Care Time: 39 Critical care of 39 min performed to assess and manage high likelihood of life- threatening hypotension and sepsis, involving labs and imaging performed with assessment to evaluate hypotension and sepsis diagnosis with frequent re assessment. This time includes bedside time, treatment discussions with patient/family/consultants, documentation time and excludes procedure time. Medical Decision Making Differential Diagnosis Differential Diagnosis includes but is not limited to dehydration, stroke, anemia, hypoglycemia, hyponatremia, hypernatremia, urinary tract infection, pneumonia, bronchitis, sepsis, gastroenteritis, additional abdominal pathology, metabolic abnormalities and infections. Medical Records Attestation: I reviewed the patient's medical records. Home Medications Current Medication List: was personally reviewed by me Laboratory Data Attestation: I reviewed the patient's lab results. Result diagrams: 07/06/20 06:26 07/06/20 06:26 Lab Results 07/05/20 07/05/20 07/05/20 Range/Units 16:10 16:10 16:10 WBC 8.02 (4.8-10.8) K/uL RBC 3.80 L (4.7-6.1) M/uL Hgb 11.7 L (14.0-18.0) g/dL Hct 36.6 L (42-52) % MCV 96.3 (80-100) fL MCH 30.8 (25-34) pg MCHC 32.0 (32-36) g/dL RDW Std Deviation 51.7 H (36.4-46.3) fL RDW Coeff of Curtis 14.5 (11.5-14.5) % Plt Count 250 (130-400) K/uL MPV 9.9 (7.4-10.4) fL Immature Gran % (Auto) 0.4 % Neut % (Auto) 59.4 % Lymph % (Auto) 24.9 % [place] % (Auto) 12.5 % Eos % (Auto) 2.6 % Baso % (Auto) 0.2 % Neut # (Auto) 4.76 (1.4-6.5) K/uL Lymph # (Auto) 2.00 (1.2-3.4) K/uL [place] # (Auto) 1.00 H (0.11-0.59) K/uL Eos # (Auto) 0.21 (0-0.5) K/uL Baso # (Auto) 0.02 (0-0.2) K/uL Immature Gran # (Auto) 0.03 H (0.00-0.02) K/uL Sodium 138 (136-145) mmol/L Potassium 3.9 (3.5-5.1) mmol/L Chloride 107 (98-107) mmol/L Carbon Dioxide 26 (21-32) mmol/L Anion Gap 5.0 (3-11) BUN 25 H (7-18) mg/dl Creatinine 2.31 H (0.6-1.4) mg/dl Est Cr Clr Drug Dosing Not Reportable Est GFR ( Amer) 29.6 ml/min Est GFR (Non-Af Amer) 25.5 ml/min BUN/Creatinine Ratio 10.9 (10-20) Glucose 131 H (70-99) mg/dl Lactate (0.4-2.0) mmol/L Calcium 8.5 (8.5-10.1) mg/dl Magnesium 2.9 H (1.8-2.4) mg/dl Total Bilirubin 0.4 (0.2-1) mg/dl AST 10 L (15-37) U/L ALT 10 L (12-78) U/L Alkaline Phosphatase 108 (45-117) U/L Troponin I < 0.015 (0-0.045) ng/ml Total Protein 7.5 (6.4-8.2) gm/dl Albumin 3.0 L (3.4-5.0) gm/dl Globulin 4.5 H (2.5-4.0) gm/dl Albumin/Globulin Ratio 0.7 L (0.9-2) Procalcitonin < 0.05 (0-0.5) ng/ml COVID-19 Eval Order SARS-CoV-2 (PCR) (Negative) 07/05/20 07/05/20 07/05/20 Range/Units 16:28 18:06 18:06 WBC (4.8-10.8) K/uL RBC (4.7-6.1) M/uL Hgb (14.0-18.0) g/dL Hct (42-52) % MCV (80-100) fL MCH (25-34) pg MCHC (32-36) g/dL RDW Std Deviation (36.4-46.3) fL RDW Coeff of Curtis (11.5-14.5) % Plt Count (130-400) K/uL MPV (7.4-10.4) fL Immature Gran % (Auto) % Neut % (Auto) % Lymph % (Auto) % [place] % (Auto) % Eos % (Auto) % Baso % (Auto) % Neut # (Auto) (1.4-6.5) K/uL Lymph # (Auto) (1.2-3.4) K/uL [place] # (Auto) (0.11-0.59) K/uL Eos # (Auto) (0-0.5) K/uL Baso # (Auto) (0-0.2) K/uL Immature Gran # (Auto) (0.00-0.02) K/uL Sodium (136-145) mmol/L Potassium (3.5-5.1) mmol/L Chloride (98-107) mmol/L Carbon Dioxide (21-32) mmol/L Anion Gap (3-11) BUN (7-18) mg/dl Creatinine (0.6-1.4) mg/dl Est Cr Clr Drug Dosing Est GFR ( Amer) ml/min Est GFR (Non-Af Amer) ml/min BUN/Creatinine Ratio (10-20) Glucose (70-99) mg/dl Lactate 2.0 (0.4-2.0) mmol/L Calcium (8.5-10.1) mg/dl Magnesium (1.8-2.4) mg/dl Total Bilirubin (0.2-1) mg/dl AST (15-37) U/L ALT (12-78) U/L Alkaline Phosphatase (45-117) U/L Troponin I (0-0.045) ng/ml Total Protein (6.4-8.2) gm/dl Albumin (3.4-5.0) gm/dl Globulin (2.5-4.0) gm/dl Albumin/Globulin Ratio (0.9-2) Procalcitonin (0-0.5) ng/ml COVID-19 Eval Order Covid19 at [facility] SARS-CoV-2 (PCR) NEGATIVE (Negative) Imaging Data Radiologist's Impression: Chest X-Ray 07/05/20 16:09 XR chest 1V portable HISTORY: SEPSIS COMPARISON: Chest 05/05/2020. FINDINGS: No pneumothorax or no pleural effusions. The heart remains normal in size. There is left-sided dual-chamber pacemaker. Calcifications are again noted within the aortic knob. No new focal lung consolidations to suggest pneumonia. No evidence for pulmonary edema. IMPRESSION: No significant change compared to the prior study. No acute process. ACT 112: Negative or not required by law. Electronically signed by: Travis Cabrera M.D. 07/05/2020 4:42 PM KUB X-Ray 07/05/20 18:41 KUB CLINICAL HISTORY: Abdominal pain. Urinary tract infection. COMPARISON STUDY: CT of the abdomen and pelvis May 05, 2020. FINDINGS: Cholecystectomy clips are noted. Severe osteoarthritis of the left hip is noted with flattening of the femoral head and subchondral cystic change and sclerosis. There is moderate to severe osteoarthritis of the right hip. Bilateral ureteral stents are in place. Distal aspect of left ureteral stent is slightly low-lying. This is unchanged. No ureteral calculi are identified. There is a large amount stool within the rectum. There is no evidence for a bowel obstruction. IMPRESSION: 1. No change in position of bilateral ureteral stents. No ureteral calculi identified. 2. No evidence for a bowel obstruction. Large amount stool within the rectum. ACT 112: Negative or not required by law. Electronically signed by: Glen Melvin M.D. 07/05/2020 8:46 PM Abdomen/Pelvis CT 07/05/20 18:49 CT SCAN OF THE ABDOMEN AND PELVIS WITHOUT CONTRAST CLINICAL HISTORY: suprapubic cath uti with stents COMPARISON STUDY: May 05, 2020 TECHNIQUE: CT scan of the abdomen and pelvis was performed from the lung bases to the proximal femurs. Images are reviewed in the axial, sagittal, and coronal planes. IV contrast was not administered for this examination. A dose lowering technique was utilized adhering to the principles of ALARA. CT DOSE: 691.14 mGy.cm FINDINGS: Lower chest: Minimal atelectasis is seen in bilateral bases. Stable bronchiectasis within the right lower lobe. Liver: The unenhanced liver is normal in size, contour, and attenuation. There is no intrahepatic biliary ductal dilatation. Gallbladder: Surgically absent. Spleen: Normal in size with multiple calcifications within its parenchyma likely representing sequela from prior granulomatous process. Pancreas: Unremarkable. Adrenal glands: Unremarkable. Kidneys: Atrophic bilateral kidneys. Urinary stents are seen bilaterally with interval resolution of the hydronephrosis on the right and unchanged mild to moderate hydronephrosis on the left. No renal calculi are seen. Stable right renal cyst measuring 4.1 cm in size. Bowel: Loops of small bowel and nondilated. Appendix is not well seen. Ascending, transverse and descending colon are nondilated with extensive stool content. Rectum is dilated with mild thickening of its wall and minimal surrounding fat stranding which could represent fecal impaction in possible proctitis. Peritoneum: There is no intraperitoneal free air or abdominal ascites. Vasculature: Descending thoracic and upper abdominal aorta is ectatic measuring up to 3 cm in diameter with scattered calcifications of its wall. Adenopathy: None. Pelvic viscera: Urinary bladder is decompressed with suprapubic catheter. Focal gas collection is seen within its lumen, wall thickening and and surrounding fat stranding. Focal area of gas collection is seen outside of the urinary bladder lumen (series 3 image 225) and might represent abscess formation. Skeletal structures: Osteopenia. Degenerative changes of the spine. Fusion of L4-L5 intervertebral disc. IMPRESSION: 1. Suprapubic catheter within collapsed urinary bladder with surrounding inflammatory changes and questionable area of gas collection outside of the urinary bladder wall concerning for developing abscess. Evaluation is limited due to lack of IV contrast. 2. Bilaterally urinary stents. Stable hydronephrosis on the left. 3. Atherosclerosis. Ectasia of the lower thoracic and upper abdominal aorta. 4. Fecal impaction. Possible proctitis. ACT 112: Negative or not required by law. The above report was generated using voice recognition software. It may contain grammatical, syntax or spelling errors. Electronically signed by: Leonela Lucia DO 07/05/2020 8:31 PM MDM Narrative This is an elderly male who presents with family due to concern for worsening weakness and dizziness as well as poor p.o. intake. Patient is currently being treated for urinary tract infection. Patient has a history of recurrent UTI and a chronic indwelling suprapubic catheter. Patient found to initially be hypotensive here and family had reported the same at home. Patient immediately started on IV fluids as labs are drawn and sent, blood pressure did improve. P atient continued on IV fluids and did receive 30 mL/KG per sepsis protocol. Patient rechecked multiple times, and blood pressure had improved and remained stable, patient reported no change in his condition though. After discussion with the ED pharmacist and review of patient's prior urinary cultures, patient started on IV Zosyn. Patient's lactic acid and pro calcitonin reassuring. Patient and family poor historians regarding some of his ongoing treatment for the chronic urinary issues. On review of EMR, a note from urology was reviewed as well as prior CT which showed bilateral indwelling ureteral stents. This information was conveyed to the hospitalist team at the time of discussion for additional inpatient monitoring and evaluation. After this discussion they added additional imaging. Family stated it was recommended to them by urology that he may need additional infectious disease consultation. This was also conveyed to the hospitalist team. Patient and family kept aware of all results, verbalized understanding and were in agreement with plan. After initiation of IV fluid resuscitation, patient's blood pressure remained stable throughout the rest of his course in the emergency department. An order was placed for continuous cardiac monitoring. The monitor shows a rate of _68_ with _normal sinus__ rhythm. Impression & Plan Weakness, GIOVANY (acute kidney injury), Acute hypotension, Acute UTI (urinary tr act infection), Failure of outpatient treatment Discharge Plan Visit Data Chief Complaint: Illness Stated Complaint: DIZZY AND LOW BLOOD PRESSSURE ED Provider: Delia Fox Discharge Problem: Weakness, GIOVANY (acute kidney injury), Acute hypotension, Acute UTI (urinary tract infection), Failure of outpatient treatment Patient Disposition: Admitted As Inpatient Discharge Instructions Interventions: ED Discharge Assessment Last Done: 07/05/20 20:26
[2020-07-05] MEDS ORDERED: VANCOMYCIN CONSULT ACTIVE PRN (19:10)
[2020-07-05] MEDS ORDERED: VANCOMYCIN HCL 1,000 MG in SODIUM CHLORIDE 0.9% 250 ML IV SCH (19:15)
[2020-07-05 19:19] LABS: Appearance Urine Turbid (Clear); Bacteria Urine Automated Negative (Negative); Bilirubin Urine Negative (Negative); Blood Urine 2+ (Negative); Color Urine Yellow; Epithelial Cell Urine Auto 0-5 /lpf (0-5); Glucose Urine UA Negative (Negative); Ketones Urine Negative (Negative); Leukocyte Esterase Urine 3+ (Negative); Nitrite Urine Negative (Negative); Protein Urine 1+ (Negative); Specific Gravity Urine 1.011 (1.000-1.030); Urobilinogen Urine Negative (Negative); WBC Urine Automated >30 /hpf (0-5); pH Urine 6.5 (4.5-7.5)
--- NOTE | 2020-07-05 19:31 | History & Physical Report ---
Date of Service July 05, 2020 Assessment & Plan (1) Complicated UTI (urinary tract infection): 80 yo M with extensive hx of urologic and nephrology problems admitted for new UTI/failure of outpatient treatment. Complicated UTI, possible Urosepsis - suprapubic catheter and BL stents in place - hx of growing enterococcus, stenotrophomonas, grisel, e. Coli, generally sensitive to penicillins and cephalosporins with a few resistance patterns. - UA showing 3+ LE, 2+ blood, 1+ protein, >30 WBC, no bacteria, 10-30 RBC - Urine culture and blood cultures pending - Empiric Zosyn + Vanc for coverage of gram positives growing on stent/catheter and anaerobic/gram negative agents - WBC normal on admission, trend - initially hypotensive to 69/50 in ER, returned to normal BP s/p 2L NS - afebrile in ER - cont pyridium and oxybutynin for bladder spasms - consulted urology and infectious disease for antibiotic plans and urologic interventions (stent removal?) going forward Chronic Indwelling suprapubic catheter + stents - stents present and not visibly malaligned on KUB - CT A/P wo con to evaluate for hydronephrosis GIOVANY on CKD - Cr up to 2.31, baseline ~ 2.15 - GFR down to 25, usually ~30 - likely secondary to UTI - continue gentle fluids and rehydration, monitor bmp daily Chronic Medical Problems Afib: cont eliquis, rate controlled Constipation: sched bisacodyl, miralax BID Anx/Dep: cont bupropion, celexa, Dementia: cont memantine, donepezil, folic acid, thiamine. delirium precautions. HTN: holding isosorbide mononitrate, carvedilol due to hypotension GERD/Hx Ulcer: cont famotidine Iron Def Anemia: Hg stable at 11, cont iron Hypothyroidism: cont levothyroxine CAD: cont statin Chronic Pain: cont gabapentin DVT ppx: on Eliquis FEN/GI: heart healthy diet, famotidine, NS @125 Full Code Dispo: Med/Surg with tele (2) CAD (coronary artery disease), [place] coronary artery: (3) HTN (hypertension), benign: (4) Cardiac pacemaker in situ: (5) BPH w urinary obs/LUTS: (6) Atrial fibrillation: (7) GERD (gastroesophageal reflux disease): (8) Aortic stenosis: (9) Anticoagulant long-term use: (10) Hx of gastric ulcer: (11) S/P ureteral stent placement: (12) Hx of sleep apnea: (13) Bilateral renal masses: (14) Stage 3b chronic kidney disease: (15) Presence of suprapubic catheter: (16) Avascular necrosis of bone of left hip: History of Present Illness 80 yo M with hx of BL ureteral stents, suprapubic catheter placement, CKD3b, afib, HLD, BPH s/p LUTS, CAD,HTN, [place], dementia who presented to the ER with his daughter for concern of low blood pressures and altered mental status. Daughter states that he frequently gets UTIs and the family is able to tell when he has changes in behavior. He was seen by Dr. Medrano of Urology approximately 1 week ago for cystoscopy and suprapubic catheter check. Placed on Ampicillin PO at that time. Per family, for the last 36-48 hours he has been more confused, lethargic, with less PO intake. Blood pressure measured at home was 48/43 per daughter. ER course significant for 2L NS fluid resuscitation, urine and blood cultures drawn, zosyn intitiated. Primary Care Provider: Celina Saunders DO Allergies Allergy/AdvReac Type Severity Reaction Status Date / Time captopril Allergy Severe ANAPHYLAXIS Verified 07/05/20 16:12 Iodinated Contrast Media Allergy Severe ANAPHYLAXIS Verified 07/05/20 16:12 levofloxacin Allergy Severe ANAPHYLAXIS Verified 07/05/20 16:12 morphine Allergy Severe Anaphylaxis Verified 07/05/20 16:12 oxaprozin Allergy Severe ANAPHYLAXIS Verified 07/05/20 16:12 Sulfa (Sulfonamide Allergy Severe Anaphylaxis Verified 07/05/20 16:12 Antibiotics) torsemide Allergy Severe ANAPHYLAXIS Verified 07/05/20 16:12 hydrocodone Allergy Mild RASH Verified 07/05/20 16:12 Home Medications Medication Instructions Recorded Confirmed Type epinephrine [EpiPen] 0.3 mg IM UD PRN 06/05/18 07/05/20 History acetaminophen 650 mg PO Q4H PRN #30 tab 08/14/19 07/05/20 Rx carvedilol 3.125 mg tablet 3.125 mg PO BID #180 tab 10/04/19 07/05/20 Rx ferrous sulfate 325 mg (65 mg 325 mg PO BIDM #180 tab 10/04/19 07/05/20 Rx iron) tablet,delayed release folic acid 1 mg tablet 1 mg PO QAM #90 tab 10/04/19 07/05/20 Rx simvastatin 80 mg tablet 80 mg PO HS #90 tab 10/04/19 07/05/20 Rx donepezil 10 mg tablet 10 mg PO HS #90 tab 02/06/20 07/05/20 Rx memantine 10 mg tablet 10 mg PO BID #180 tab 02/06/20 07/05/20 Rx bupropion HCl 100 mg PO QAM 04/13/20 07/05/20 History citalopram 10 mg PO QAM 04/13/20 07/05/20 History apixaban 2.5 mg tablet 2.5 mg PO BID #180 tab 04/20/20 07/05/20 Rx isosorbide mononitrate 60 mg 60 mg PO QAM #90 tab 04/30/20 07/05/20 Rx tablet,extended release 24 hr oxybutynin chloride 5 mg PO Q8H PRN #14 tab 04/30/20 07/05/20 Rx phenazopyridine [Pyridium] 200 mg PO Q8H PRN #10 tab 04/30/20 07/05/20 Rx bisacodyl 10 mg WI DAILY PRN #12 ea 05/16/20 07/05/20 Rx polyethylene glycol 3350 [Miralax] 17 g PO BID PRN #14 ea 05/16/20 07/05/20 Rx tamsulosin 0.4 mg PO QPM #30 cap 05/16/20 07/05/20 Rx thiamine HCl (vitamin B1) [Vitamin 100 mg PO QAM #30 tab 05/16/20 07/05/20 Rx B-1] gabapentin 300 mg capsule 300 mg PO HS #90 cap 06/04/20 07/05/20 Rx levothyroxine 100 mcg tablet 100 mcg PO HS #90 tab 06/18/20 07/05/20 Rx levothyroxine 112 mcg tablet 112 mcg PO DAILYBB #90 tab 06/18/20 07/05/20 Rx ampicillin 500 mg capsule 500 mg PO QID 10 Days #40 cap 06/26/20 07/05/20 Rx famotidine 40 mg tablet 40 mg PO QAM #90 tab 07/02/20 07/05/20 Rx tramadol 50 mg tablet 50 mg PO TID PRN #60 tab 07/05/20 Rx Past Med/Surg History Medical History Acute blood loss anemia Acute kidney injury Acute kidney injury Acute UTI Anxiety and depression Aortic stenosis Mild (MG 11 mmHg, UZMA 1.1 cm2) per 11/2015 ECHO. Valve not well visualized on echo 03/22/20. Atrial fibrillation dx 2017 >on Eliquis, no cardioversions Avascular necrosis of bone of left hip (~05/2020) severe avascular necrosis and severe osteoarthritis to left hip joint with moderate advanced right hip osteoarthritis BPH w urinary obs/LUTS CAD (coronary artery disease), [place] coronary artery S/P BMS to OM (1997). Caths also 2006, 2008 and 2013, no stents placed. Most recent cath in 2013 showed no angiographically significant stenosis other than 20-30% in-stent restenosis of OM. Cardiac pacemaker in situ Implanted 2008 (03/13 [facility]. Replaced 2016. > Last pacer check 04/10/20 [facility] > Dr. Hodge Chronic pain Cough Dementia Dyslipidemia Encounter for pre-operative examination GERD (gastroesophageal reflux disease) controlled History of kidney stones History of [place] (myocardial infarction) 1997 HTN (hypertension), benign Hx of gastric ulcer Hypothyroidism Iron deficiency anemia Low blood pressure pt's reports this has been happening lately, last reading was 92/65 at cardiology visit on 04/10/20. Cardiology notes 'clinically stable.' Sleep apnea NO DEVICE Stage 3b chronic kidney disease Surgical History H/O total knee replacement RIGHT/LEFT History of cardiac cath MULTIPLE WITH TOTAL 4 STENTS > LAST ONE 3 YRS AGO > [facility] History of cataract surgery B/L History of colonoscopy History of lithotripsy History of lumbar fusion History of prostate surgery PARTIAL PROSTECTOMY History of thyroidectomy History of tooth extraction all teeth S/P cystoscopy with ureteral stent placement 12/29/19 Dr. William Medrano- Cystoscopy, Bilateral retrograde pyelogram, Bilateral ureteral stent exchange, Left aspiration and culture S/P TURP S/P ureteral stent placement Cysto, B/L RPG, right ureteroscopy, stent exchange: 07/06/18: LMA#5 at [facility] CYSTO STENT EXCHANGE 11/2018 Family History Father Diabetes Mother Coronary heart disease Hypertension Brother Seizure Denies family history of Ovarian cancer Prostate cancer Myocardial infarction Breast cancer Colorectal cancer Social History Smoking Status: Never smoker Tobacco Type: Cigarettes Second Hand Exposure: No; Do You Dip or Chew Tobacco: No; Tobacco Cessation Education Requested by Patient: No Hx Alcohol Use: No Hx Substance Use: No Preferred Language: Hebrew Communication Ability: Effective Visual Impairment: No Limitations Lead Vulcanizing Operator Required: No Beliefs That Will Affect Care: None marital status: Current Living Situation: Spouse and Family Current Living Situation Comment: per RN report from ER, pt lives with and daughter current occupational status: retired How many Children do You have: 3 Other Information That Helps Us Care for You: No Feels Safe at Home: Yes Safety Concerns: Feels Safe At This Time Childhood Exposure to Second-Hand Smoke: No caffeine: Yes (Coffee 3 per day.) during the past year weight has: remained stable Dental Care, Regularly: No Physical Activity Frequency: Does not Exercise Seatbelt Use: always Sunscreen Use: No Assistive Devices: None Review of Systems Review of Systems: Unobtainable due to cognitive status Physical Exam Physical Exam: Constitutional: elderly man laying comfortably in bed under a pile of blankets Eyes: EOMI, pupils equal and reactive bilaterally, no scleral icterus Cardiac: bradycardic, regular rhythm, blowing systolic murmur heard throughout precordium Pulm: CTA BL, no wheezes, rhonchi, crackles or rubs, moving air well throughout both lungs Abd: soft,TTP at LUQ and RLQ, no suprapubic tenderness,not distended, no guarding or rebound. : Some mucoid discharge under gauze by suprapubic catheter insertion. Extremities: 2+ peripheral pulses, no edema Neuro: no focal deficits, moving all 4 limbs, Alert and oriented to self, pleasantly demented. Results & Data Results & Data ([facility]) Vital Signs (Past 12 Hours) Vital Signs Temp Pulse Resp BP Pulse Ox 07/05/20 18:30 55 L 20 133/79 95 07/05/20 18:00 54 L 20 128/66 96 07/05/20 17:31 55 L 20 130/67 07/05/20 17:02 56 L 27 H 131/73 07/05/20 16:30 57 L 18 87/58 L 97 07/05/20 16:18 62 97 07/05/20 16:09 20 97 07/05/20 16:04 64 22 104/62 07/05/20 15:57 36 C L 63 18 69/50 L 94 Laboratory Results WBC 8.02 K/uL (4.8-10.8) 07/05/20 16:10 RBC 3.80 M/uL (4.7-6.1) L 07/05/20 16:10 Hgb 11.7 g/dL (14.0-18.0) L 07/05/20 16:10 Hct 36.6 % (42-52) L 07/05/20 16:10 MCV 96.3 fL (80-100) 07/05/20 16:10 MCH 30.8 pg (25-34) 07/05/20 16:10 MCHC 32.0 g/dL (32-36) 07/05/20 16:10 RDW Std Deviation 51.7 fL (36.4-46.3) H 07/05/20 16:10 RDW Coeff of Curtis 14.5 % (11.5-14.5) 07/05/20 16:10 Plt Count 250 K/uL (130-400) 07/05/20 16:10 MPV 9.9 fL (7.4-10.4) 07/05/20 16:10 Immature Gran % (Auto) 0.4 % 07/05/20 16:10 Neut % (Auto) 59.4 % 07/05/20 16:10 Lymph % (Auto) 24.9 % 07/05/20 16:10 [place] % (Auto) 12.5 % 07/05/20 16:10 Eos % (Auto) 2.6 % 07/05/20 16:10 Baso % (Auto) 0.2 % 07/05/20 16:10 Neut # (Auto) 4.76 K/uL (1.4-6.5) 07/05/20 16:10 Lymph # (Auto) 2.00 K/uL (1.2-3.4) 07/05/20 16:10 [place] # (Auto) 1.00 K/uL (0.11-0.59) H 07/05/20 16:10 Eos # (Auto) 0.21 K/uL (0-0.5) 07/05/20 16:10 Baso # (Auto) 0.02 K/uL (0-0.2) 07/05/20 16:10 Immature Gran # (Auto) 0.03 K/uL (0.00-0.02) H 07/05/20 16:10 Sodium 138 mmol/L (136-145) 07/05/20 16:10 Potassium 3.9 mmol/L (3.5-5.1) 07/05/20 16:10 Chloride 107 mmol/L (98-107) 07/05/20 16:10 Carbon Dioxide 26 mmol/L (21-32) 07/05/20 16:10 Anion Gap 5.0 (3-11) 07/05/20 16:10 BUN 25 mg/dl (7-18) H 07/05/20 16:10 Creatinine 2.31 mg/dl (0.6-1.4) H 07/05/20 16:10 Est Cr Clr Drug Dosing Not Reportable 07/05/20 16:10 Est GFR ( Amer) 29.6 ml/min 07/05/20 16:10 Est GFR (Non-Af Amer) 25.5 ml/min 07/05/20 16:10 BUN/Creatinine Ratio 10.9 (10-20) 07/05/20 16:10 Glucose 131 mg/dl (70-99) H 07/05/20 16:10 Lactate 2.0 mmol/L (0.4-2.0) 07/05/20 16:28 Calcium 8.5 mg/dl (8.5-10.1) 07/05/20 16:10 Magnesium 2.9 mg/dl (1.8-2.4) H 07/05/20 16:10 Total Bilirubin 0.4 mg/dl (0.2-1) 07/05/20 16:10 AST 10 U/L (15-37) L 07/05/20 16:10 ALT 10 U/L (12-78) L 07/05/20 16:10 Alkaline Phosphatase 108 U/L (45-117) 07/05/20 16:10 Troponin I < 0.015 ng/ml (0-0.045) 07/05/20 16:10 Total Protein 7.5 gm/dl (6.4-8.2) 07/05/20 16:10 Albumin 3.0 gm/dl (3.4-5.0) L 07/05/20 16:10 Globulin 4.5 gm/dl (2.5-4.0) H 07/05/20 16:10 Albumin/Globulin Ratio 0.7 (0.9-2) L 07/05/20 16:10 Procalcitonin < 0.05 ng/ml (0-0.5) 07/05/20 16:10 Urine Color Yellow 07/05/20 18:58 Urine Appearance Turbid (Clear) A 07/05/20 18:58 Urine pH 6.5 (4.5-7.5) 07/05/20 18:58 Ur Specific [place] 1.011 (1.000-1.030) 07/05/20 18:58 Urine Protein 1+ (Negative) H 07/05/20 18:58 Urine Glucose (UA) Negative (Negative) 07/05/20 18:58 Urine Ketones Negative (Negative) 07/05/20 18:58 Urine Blood 2+ (Negative) H 07/05/20 18:58 Urine Nitrite Negative (Negative) 07/05/20 18:58 Urine Bilirubin Negative (Negative) 07/05/20 18:58 Urine Urobilinogen Negative (Negative) 07/05/20 18:58 Ur Leukocyte Esterase 3+ (Negative) H 07/05/20 18:58 Urine WBC (Auto) >30 /hpf (0-5) H 07/05/20 18:58 Urine RBC (Auto) 10-30 /hpf (0-4) H 07/05/20 18:58 U Hyaline Cast (Auto) 1-5 /lpf (0-5) 07/05/20 18:58 U Epithel Cells (Auto) 0-5 /lpf (0-5) 07/05/20 18:58 Urine Bacteria (Auto) Negative (Negative) 07/05/20 18:58 COVID-19 Eval Order Covid19 at [facility] 07/05/20 18:06 SARS-CoV-2 (PCR) NEGATIVE (Negative) 07/05/20 18:06 Impressions Chest X-Ray 07/05/20 16:09 XR chest 1V portable HISTORY: SEPSIS COMPARISON: Chest 05/05/2020. FINDINGS: No pneumothorax or no pleural effusions. The heart remains normal in size. There is left-sided dual-chamber pacemaker. Calcifications are again noted within the aortic knob. No new focal lung consolidations to suggest pneumonia. No evidence for pulmonary edema. IMPRESSION: No significant change compared to the prior study. No acute process. ACT 112: Negative or not required by law. Electronically signed by: Travis Cabrera M.D. 07/05/2020 4:42 PM KUB: stents in place, large amount of colonic air and stool CT A/P pending Supervising Physician Co-Signing Physician Notes Discussed with resident, her note reviewed. Agree with her plan as noted above. Patient has a complicated UTI with a history of suprapubic catheter and bilateral ureteral stents. He has had multiple organisms grow in the past and was on outpatient oral ampicillin prior to presentation. Now on broad-spectrum Zosyn and vancomycin. Awaiting urology consultation for further management. Resident Activity Tracking Resident Involvement: Resident Care Provided Care Provided: Adult Hospital Medicine (1) Atrial fibrillation Atrial fibrillation type: unspecified Qualified Code(s): I48.91 - Unspecified atrial fibrillation (2) CAD (coronary artery disease), [place] coronary artery Associated angina: without angina [place] vs. transplanted heart: [place] heart Qualified Code(s): I25.10 - Atherosclerotic heart disease of [place] coronary artery without angina pectoris (3) GERD (gastroesophageal reflux disease) Esophagitis presence: esophagitis presence not specified Qualified Code(s): K21.9 - Gastro-esophageal reflux disease without esophagitis
[2020-07-05 19:38] LABS: INR 1.1 (0.9-1.1); Prothrombin Time 11.4 Seconds (9.0-12.0)
--- NOTE | 2020-07-05 20:33 | CT Scan Report ---
CT SCAN OF THE ABDOMEN AND PELVIS WITHOUT CONTRAST CLINICAL HISTORY: suprapubic cath uti with stents COMPARISON STUDY: May 05, 2020 TECHNIQUE: CT scan of the abdomen and pelvis was performed from the lung bases to the proximal femurs . Images are reviewed in the axial, sagittal, and coronal planes. IV contrast was not administered fo r this examination. A dose lowering technique was utilized adhering to the principles of ALARA. CT DOSE: 691.14 mGy.cm FINDINGS: Lower chest: Minimal atelectasis is seen in bilateral bases. Stable bronchiectasis within the right l ower lobe. Liver: The unenhanced liver is normal in size, contour, and attenuation. There is no intrahepatic ty iary ductal dilatation. Gallbladder: Surgically absent. Spleen: Normal in size with multiple calcifications within its parenchyma likely representing sequela from prior granulomatous process. Pancreas: Unremarkable. Adrenal glands: Unremarkable. Kidneys: Atrophic bilateral kidneys. Urinary stents are seen bilaterally with interval resolution of the hydronephrosis on the right and unchanged mild to moderate hydronephrosis on the left. No renal c alculi are seen. Stable right renal cyst measuring 4.1 cm in size. Bowel: Loops of small bowel and nondilated. Appendix is not well seen. Ascending, transverse and desc ending colon are nondilated with extensive stool content. Rectum is dilated with mild thickening of i ts wall and minimal surrounding fat stranding which could represent fecal impaction in possible proct itis. Peritoneum: There is no intraperitoneal free air or abdominal ascites. Vasculature: Descending thoracic and upper abdominal aorta is ectatic measuring up to 3 cm in diamete r with scattered calcifications of its wall. Adenopathy: None. Pelvic viscera: Urinary bladder is decompressed with suprapubic catheter. Focal gas collection is see n within its lumen, wall thickening and and surrounding fat stranding. Focal area of gas collection i s seen outside of the urinary bladder lumen (series 3 image 225) and might represent abscess formatio n. Skeletal structures: Osteopenia. Degenerative changes of the spine. Fusion of L4-L5 intervertebral di sc. IMPRESSION: 1. Suprapubic catheter within collapsed urinary bladder with surrounding inflammatory changes and qu estionable area of gas collection outside of the urinary bladder wall concerning for developing absce ss. Evaluation is limited due to lack of IV contrast. 2. Bilaterally urinary stents. Stable hydronephrosis on the left. 3. Atherosclerosis. Ectasia of the lower thoracic and upper abdominal aorta. 4. Fecal impaction. Possible proctitis. ACT 112: Negative or not required by law. The above report was generated using voice recognition software. It may contain grammatical, syntax o r spelling errors. Electronically signed by: Leonela Lucia DO 07/05/2020 8:31 PM
--- NOTE | 2020-07-05 20:48 | XRay Report ---
KUB CLINICAL HISTORY: Abdominal pain. Urinary tract infection. COMPARISON STUDY: CT of the abdomen and pelvis May 05, 2020. FINDINGS: Cholecystectomy clips are noted. Severe osteoarthritis of the left hip is noted with flatte jocelyn of the femoral head and subchondral cystic change and sclerosis. There is moderate to severe ost eoarthritis of the right hip. Bilateral ureteral stents are in place. Distal aspect of left ureteral stent is slightly low-lying. This is unchanged. No ureteral calculi are identified. There is a large amount stool within the rectum. There is no evidence for a bowel obstruction. IMPRESSION: 1. No change in position of bilateral ureteral stents. No ureteral calculi identified. 2. No evidence for a bowel obstruction. Large amount stool within the rectum. ACT 112: Negative or not required by law. Electronically signed by: Glen Melvin M.D. 07/05/2020 8:46 PM
[2020-07-05] MEDS ORDERED: ONDANSETRON INJ 2 MG/ML 2 ML VIAL IV PRN (21:26)
[2020-07-05] MEDS ORDERED: MELATONIN 3 MG TAB PO PRN (21:26)
[2020-07-05] MEDS ORDERED: MAGNESIUM HYDROXIDE SUSP 30 ML UDC PO PRN (21:26)
[2020-07-05] MEDS ORDERED: PIPERACILL/TAZOBAC CONSULT ACTIVE PRN (21:26)
[2020-07-05] MEDS ORDERED: ACETAMINOPHEN 325 MG TAB PO PRN (21:26)
[2020-07-05] MEDS ORDERED: OXYBUTYNIN CHLORIDE 5 MG TAB PO PRN (21:26)
[2020-07-05] MEDS ORDERED: NITROGLYCERIN SL 0.4 MG/TAB TAB SL PRN (21:26)
[2020-07-05] MEDS ORDERED: PATIENT'S HEIGHT AND/OR WEIGHT NEEDED SCH (21:45)
[2020-07-05] MEDS ORDERED: VANCOMYCIN HCL 1,750 MG in SODIUM CHLORIDE 0.9% 500 ML IV ONE (22:30)
[2020-07-05] MEDS: SIMVASTATIN 80 MG TAB PO SCH (22:42)
[2020-07-05] MEDS: APIXABAN 2.5 MG TAB PO SCH (22:43)
[2020-07-05] MEDS: TAMSULOSIN HCL 0.4 MG CAP PO SCH (22:43)
[2020-07-05] MEDS: bisacodyL 10 MG SUPP PR SCH (22:43)
[2020-07-05] MEDS: POLYETHYLENE (MIRALAX) 17 GM PACK PO SCH (22:43)
[2020-07-05] MEDS: DONEPEZIL HCL 10 MG TAB PO SCH (22:43)
[2020-07-05] MEDS: MEMANTINE HCL 10 MG TAB PO SCH (22:44)
[2020-07-05] MEDS: GABAPENTIN 300 MG CAP PO SCH (22:44)
[2020-07-05] MEDS: SODIUM CHLORIDE 0.9% 1000ML 1,000 ML IV SCH (22:47)
[2020-07-06] MEDS: LEVOTHYROXINE SODIUM 100 MCG TABLET PO SCH ×2 (00:05→20:13)
--- NOTE | 2020-07-06 00:30 | Pharmacy Report ---
Pharmacy Abx Initial Consult - Date of Service July 06, 2020 - Pharmacy Dosing Scope Date of Consult: [] Consultation requested by: [] Pharmacy is consulted to initiate [] IV/PO dosing therapy, order appropriate labs and adjust drug dose/frequency. - Subjective The patient is a 80 year old M admitted on 07/05/20 18:55. - Objective Height: 5 ft 4 in Weight: 82.6 kg Vital Signs (Past 12hrs): Vital Signs Temp Pulse Pulse Resp BP BP Pulse Ox 07/06/20 00:00 53 L 07/05/20 22:55 36.5 C 53 L 17 164/83 H 95 07/05/20 21:42 36.6 C 18 162/91 H 96 07/05/20 21:24 56 L 07/05/20 20:00 58 L 19 137/75 96 07/05/20 19:30 54 L 18 132/80 95 07/05/20 19:01 56 L 18 144/69 H 95 07/05/20 19:00 57 L 18 95 07/05/20 18:30 55 L 20 133/79 95 07/05/20 18:00 54 L 20 128/66 96 07/05/20 17:31 55 L 20 130/67 07/05/20 17:02 56 L 27 H 131/73 07/05/20 16:30 57 L 18 87/58 L 97 07/05/20 16:18 62 97 07/05/20 16:09 20 97 07/05/20 16:04 64 22 104/62 07/05/20 15:57 36 C L 63 18 69/50 L 94 Lab Results (24hrs): Laboratory Tests (24 Hours) 07/05/20 07/05/20 07/05/20 16:10 16:10 16:10 WBC 8.02 Neut # (Auto) 4.76 Creatinine 2.31 H Est Cr Clr Drug Dosing Not Reportable Procalcitonin < 0.05 Micro Results: 07/05/20 17:21 Urine Culture - Pending Urine,Suprapubic 07/05/20 16:28 Aerobic Blood Culture - Pending Blood Anaerobic Blood Culture - Pending 07/05/20 16:10 Aerobic Blood Culture - Pending Blood Anaerobic Blood Culture - Pending - Assessment & Plan Assessment 80 year old M admitted with UTI, ordered broad spectrum coverage with Vanc/Zosyn. Patient has chronic catheter and hx of multiple UTIs. Most previous cultures were sensitive to vanc and/or zosyn. SCr elevated from baseline of ~2. Plan Vancomycin IV * Estimated PK Parameters: Vd 0.7 L/kg, Fadi 0.24 hr-1, t1/2 ~29 hr * Loading dose: 1750mg (~21 mg/kg) * Random level ordered with AM labs tomorrow due to changing renal function. Will redose accordingly. * Goal trough level for UTI : 15 to 20 mcg/mL Pharmacy will continue to follow and will adjust dose/frequency as necessary. Thank you.
[2020-07-06] MEDS: PIPERACILLIN/TAZOBACTAM 3.375 GM in DEXTROSE 5% 100 ML IV SCH ×3 (01:25→15:51)
[2020-07-06] MEDS: SODIUM CHLORIDE 0.9% 1000ML 1,000 ML IV SCH (06:01)
[2020-07-06] MEDS ORDERED: LEVOTHYROXINE SODIUM 112 MCG TABLET PO SCH (06:30)
[2020-07-06 07:15] LABS: Basophils # (auto) 0.01 K/uL (0-0.2); Basophils % (auto) 0.1 %; Eosinophils % (auto) 2.8 %; Hematocrit (blood only) 34.1 % (42-52); Hemoglobin 10.8 g/dL (14.0-18.0); Immature Granulocytes # (auto) 0.02 K/uL (0.00-0.02); Immature Granulocytes % (auto) 0.3 %; Lymphocytes # (auto) 2.01 K/uL (1.2-3.4); Lymphocytes % (auto) 27.8 %; Mean Corpuscular Hgb Conc 31.7 g/dL (32-36); Mean Platelet Volume 10.3 fL (7.4-10.4); Monocytes # (auto) 0.76 K/uL (0.11-0.59); Monocytes % (auto) 10.5 %; Neutrophils # (auto) 4.23 K/uL (1.4-6.5); Neutrophils % (auto) 58.5 %; Platelet Count 220 K/uL (130-400); RDW Coefficient of Variation 14.5 % (11.5-14.5); RDW Standard Deviation 52.3 fL (36.4-46.3); Red Blood Count 3.48 M/uL (4.7-6.1); White Blood Count 7.23 K/uL (4.8-10.8)
[2020-07-06 07:42] LABS: BUN Creatinine Ratio 11.4 (10-20); Calcium 7.9 mg/dl (8.5-10.1); Creatinine Clr Calc Pharmacy 31.6 ml/min; Est GFR (African American) 40.6 ml/min; Magnesium 2.6 mg/dl (1.8-2.4); Phosphorus 3.1 mg/dl (2.5-4.9); Potassium 4.2 mmol/L (3.5-5.1)
--- NOTE | 2020-07-06 07:54 | Urology Consultation ---
Date of Consultation July 06, 2020 Assessment & Plan (1) Complicated UTI (urinary tract infection): (2) Presence of suprapubic catheter: (3) Acute kidney injury: 80yo M who presented with weakness, hypotension, and altered mental status and was admitted with complicated UTI and GIOVANY on CKD. - Hospital course, CT imaging, labs, and urinalysis reviewed. - Plan of care and imaging reviewed with Dr. Medrano. - Patient with a long hx of chronic issues including recurrent UTI with possible colonization, chronic bilateral ureteral stents, and suprapubic catheter. - He is afebrile. - Labs reviewed, Wbc stable and creatinine 1.78 today (previously 2.31). - Urine and blood cultures pending - CTAP on arrival notes bilateral ureteral stents, stable hydronephrosis on the left, and suprapubic catheter in place with surrounding inflammatory changes and questionable area of gas collection outside of the urinary bladder wall concerning for developing abscess. - No indication for acute intervention at this time. - Will maintain bilateral ureteral stents and keep stent exchange as scheduled on 07/23/[address] Medrano. - Maintain suprapubic catheter. - Recommend continue supportive care and antibiotic therapy, follow cultures - Recommend ID/Allergy consultation for options for management of chronic UTI issues and antibiotic therapy - Continue tamsulosin, pyridium prn, and oxybutynin prn for bladder spasms. - Will continue to follow History of Present Illness Attending Physician: Wilberto Arce MD History of Present Illness 80yo M with multiple medical issues who presented to the ER with family with concerns for worsening weakness, dizziness, and low blood pressure. The patient was currently being treated for a UTI with Ampicillin. He was admitted with complicated UTI/failed outpatient therapy and GIOVANY on CKD. PMHx includes frequent UTI, chronic b/l ureteral stents, chronic suprapubic catheter, CKD3b, afib, HLD, BPH w/LUTS, CAD, HTN, [place], dementia On presentation to the ER, he was afebrile, BP 69/50. Wbc 8.02, Hgb 10.8, Cr 2.31. Urinalysis with 2+blood, neg nitrite, 3+ leukocytes, >30wbc, 10-30rbc, negative bacteria. He was given IVF, blood and urine cultures were sent, and IV antibiotics initiated. KUB IMPRESSION: 1. No change in position of bilateral ureteral stents. No ureteral calculi identified. 2. No evidence for a bowel obstruction. Large amount stool within the rectum. CTAP IMPRESSION: 1. Suprapubic catheter within collapsed urinary bladder with surrounding inflammatory changes and questionable area of gas collection outside of the urinary bladder wall concerning for developing abscess. Evaluation is limited due to lack of IV contrast. 2. Bilateral urinary stents. Stable hydronephrosis on the left. 3. Atherosclerosis. Ectasia of the lower thoracic and upper abdominal aorta. 4. Fecal impaction. Possible proctitis. The patient is well known to our service. Follow with Dr. Medrano. He was seen by Dr. Medrano on 06/27 for cystoscopy and suprapubic catheter change. He was prescribed Ampicillin and fluconazole on 06/26 for a urine culture positive for Enterococcus, Monalisa, and Burkholderia. Hx of chronic b/l ureteral stents - Last stent exchange was 04/30/[address] Medrano. Patient examined at bedside this morning. Awake, sitting up in bedside chair on arrival. Pleasantly confused and forgetful. He denies any pain or discomfort at this time. SPT intact and draining yellow urine with some sediment in tubing. Denies fevers or chills. Denies nausea or vomiting. Offers no additional complaints at this time. Allergies Allergy/AdvReac Type Severity Reaction Status Date / Time captopril Allergy Severe ANAPHYLAXIS Verified 07/05/20 16:12 Iodinated Contrast Media Allergy Severe ANAPHYLAXIS Verified 07/05/20 16:12 levofloxacin Allergy Severe ANAPHYLAXIS Verified 07/05/20 16:12 morphine Allergy Severe Anaphylaxis Verified 07/05/20 16:12 oxaprozin Allergy Severe ANAPHYLAXIS Verified 07/05/20 16:12 Sulfa (Sulfonamide Allergy Severe Anaphylaxis Verified 07/05/20 16:12 Antibiotics) torsemide Allergy Severe ANAPHYLAXIS Verified 07/05/20 16:12 hydrocodone Allergy Mild RASH Verified 07/05/20 16:12 Home Medications Medication Instructions Recorded Confirmed Type epinephrine [EpiPen] 0.3 mg IM UD PRN 06/05/18 07/05/20 History acetaminophen 650 mg PO Q4H PRN #30 tab 08/14/19 07/05/20 Rx carvedilol 3.125 mg tablet 3.125 mg PO BID #180 tab 10/04/19 07/05/20 Rx ferrous sulfate 325 mg (65 mg 325 mg PO BIDM #180 tab 10/04/19 07/05/20 Rx iron) tablet,delayed release folic acid 1 mg tablet 1 mg PO QAM #90 tab 10/04/19 07/05/20 Rx simvastatin 80 mg tablet 80 mg PO HS #90 tab 10/04/19 07/05/20 Rx donepezil 10 mg tablet 10 mg PO HS #90 tab 02/06/20 07/05/20 Rx memantine 10 mg tablet 10 mg PO BID #180 tab 02/06/20 07/05/20 Rx bupropion HCl 100 mg PO QAM 04/13/20 07/05/20 History citalopram 10 mg PO QAM 04/13/20 07/05/20 History apixaban 2.5 mg tablet 2.5 mg PO BID #180 tab 04/20/20 07/05/20 Rx isosorbide mononitrate 60 mg 60 mg PO QAM #90 tab 04/30/20 07/05/20 Rx tablet,extended release 24 hr oxybutynin chloride 5 mg PO Q8H PRN #14 tab 04/30/20 07/05/20 Rx phenazopyridine [Pyridium] 200 mg PO Q8H PRN #10 tab 04/30/20 07/05/20 Rx bisacodyl 10 mg CO DAILY PRN #12 ea 05/16/20 07/05/20 Rx polyethylene glycol 3350 [Miralax] 17 g PO BID PRN #14 ea 05/16/20 07/05/20 Rx tamsulosin 0.4 mg PO QPM #30 cap 05/16/20 07/05/20 Rx thiamine HCl (vitamin B1) [Vitamin 100 mg PO QAM #30 tab 05/16/20 07/05/20 Rx B-1] gabapentin 300 mg capsule 300 mg PO HS #90 cap 06/04/20 07/05/20 Rx levothyroxine 100 mcg tablet 100 mcg PO HS #90 tab 06/18/20 07/05/20 Rx levothyroxine 112 mcg tablet 112 mcg PO DAILYBB #90 tab 06/18/20 07/05/20 Rx ampicillin 500 mg capsule 500 mg PO QID 10 Days #40 cap 06/26/20 07/05/20 Rx famotidine 40 mg tablet 40 mg PO QAM #90 tab 07/02/20 07/05/20 Rx tramadol 50 mg tablet 50 mg PO TID PRN #60 tab 07/05/20 Rx Patient History Medical History Acute blood loss anemia Acute kidney injury Acute kidney injury Acute UTI Anxiety and depression Aortic stenosis Mild (MG 11 mmHg, UZMA 1.1 cm2) per 11/2015 ECHO. Valve not well visualized on echo 03/22/20. Atrial fibrillation dx 2017 >on Eliquis, no cardioversions Avascular necrosis of bone of left hip (~05/2020) severe avascular necrosis and severe osteoarthritis to left hip joint with moderate advanced right hip osteoarthritis BPH w urinary obs/LUTS CAD (coronary artery disease), [place] coronary artery S/P BMS to OM (1997). Caths also 2006, 2008 and 2013, no stents placed. Most recent cath in 2013 showed no angiographically significant stenosis other than 20-30% in-stent restenosis of OM. Cardiac pacemaker in situ Implanted 2008 (03/13 [facility]. Replaced 2016. > Last pacer check 04/10/20 [facility] > Dr. Hodge Chronic pain Cough Dementia Dyslipidemia Encounter for pre-operative examination GERD (gastroesophageal reflux disease) controlled History of kidney stones History of [place] (myocardial infarction) 1997 HTN (hypertension), benign Hx of gastric ulcer Hypothyroidism Iron deficiency anemia Low blood pressure pt's reports this has been happening lately, last reading was 92/65 at cardiology visit on 04/10/20. Cardiology notes 'clinically stable.' Sleep apnea NO DEVICE Stage 3b chronic kidney disease Surgical History H/O total knee replacement RIGHT/LEFT History of cardiac cath MULTIPLE WITH TOTAL 4 STENTS > LAST ONE 3 YRS AGO > [facility] History of cataract surgery B/L History of colonoscopy History of lithotripsy History of lumbar fusion History of prostate surgery PARTIAL PROSTECTOMY History of thyroidectomy History of tooth extraction all teeth S/P cystoscopy with ureteral stent placement 12/29/19 Dr. William Medrano- Cystoscopy, Bilateral retrograde pyelogram, Bilateral ureteral stent exchange, Left aspiration and culture S/P TURP S/P ureteral stent placement Cysto, B/L RPG, right ureteroscopy, stent exchange: 07/06/18: LMA#5 at [facility] CYSTO STENT EXCHANGE 11/2018 Family History Father Diabetes Mother Coronary heart disease Hypertension Brother Seizure Denies family history of Ovarian cancer Prostate cancer Myocardial infarction Breast cancer Colorectal cancer Social History Smoking Status: Never smoker Tobacco Type: Cigarettes Second Hand Exposure: No; Do You Dip or Chew Tobacco: No; Tobacco Cessation Education Requested by Patient: No Hx Alcohol Use: No Hx Substance Use: No Preferred Language: Hebrew Communication Ability: Effective Visual Impairment: No Limitations Tree Thinner Required: No Beliefs That Will Affect Care: None marital status: Current Living Situation: Spouse and Family Current Living Situation Comment: per RN report from ER, pt lives with and daughter current occupational status: retired How many Children do You have: 3 Other Information That Helps Us Care for You: No Feels Safe at Home: Yes Safety Concerns: Feels Safe At This Time Childhood Exposure to Second-Hand Smoke: No caffeine: Yes (Coffee 3 per day.) during the past year weight has: remained stable Dental Care, Regularly: No Physical Activity Frequency: Does not Exercise Seatbelt Use: always Sunscreen Use: No Assistive Devices: None Review of Systems Review of Systems: All systems reviewed & are unremarkable except as noted in HPI & below Physical Exam Constitutional: no acute distress Pleasantly confused. Respiratory: normal respiratory effort; no labored breathing and no audible wheezes Gastrointestinal (Abdomen): Inspection/Auscultation: abdomen not distended Percussion/Palpation: abdomen soft; abdomen nontender and no guarding Skin: Warm and dry. No visible rashes or lesions. Neurologic: awake Psychiatric: Orientation: alert, oriented to person and cooperative Genitourinary: no CVA tenderness Suprapubic catheter intact, draining yellow urine with sediment noted in tubing. SPT dressing c/d/i, No erythema or drainage noted around insertion site. Results & Data ([facility]) Vital Signs (Past 12 Hours) Vital Signs Temp Pulse Pulse Resp BP BP Pulse Ox 07/06/20 03:33 36.6 C 55 L 18 160/82 H 92 07/06/20 00:00 53 L 07/05/20 22:55 36.5 C 53 L 17 164/83 H 95 07/05/20 21:42 36.6 C 18 162/91 H 96 07/05/20 21:24 56 L 07/05/20 20:00 58 L 19 137/75 96 PG Care Time/CCT Total # of Minutes Spent Total Time Spent with Patient: Total time spent is greater than 50% in coordination of care (as documented) at patient's floor/unit and/or counseling patient: Coding Level of Care Code 17964 Initial Inpt Care Lvl 3 Diagnoses Complicated UTI (urinary tract infection) N39.0 Presence of suprapubic catheter Z93.59 Acute kidney injury N17.9
[2020-07-06] MEDS: buPROPion SR 100 MG TABCR PO SCH (07:58)
[2020-07-06] MEDS: APIXABAN 2.5 MG TAB PO SCH ×2 (07:58→20:12)
[2020-07-06] MEDS: CITALOPRAM 20 MG TAB PO SCH (07:59)
[2020-07-06] MEDS: FOLIC ACID 1 MG TAB PO SCH (07:59)
[2020-07-06] MEDS: FAMOTIDINE 40 MG TABLET PO SCH (07:59)
[2020-07-06] MEDS: ISOSORBIDE MONO EXTENDED REL 60 MG TABCR PO SCH (08:00)
[2020-07-06] MEDS: MEMANTINE HCL 10 MG TAB PO SCH ×2 (08:00→20:12)
[2020-07-06] MEDS: POLYETHYLENE (MIRALAX) 17 GM PACK PO SCH ×2 (08:00→20:12)
[2020-07-06] MEDS: THIAMINE HCL 100 MG TAB PO SCH (08:01)
--- NOTE | 2020-07-06 08:25 | Pharmacy Report ---
Pharmacy Abx Dose Short Note - Date of Service July 06, 2020 - Assessment & Plan Assessment 80 year old M receiving VANCO + ZOSYN for treatment of UTI Day # 2 of antimicrobial therapy. Scr improved from 2.31 --> 1.78 today (baseline) Plan Vancomycin * Random level of 20.5 mcg/mL is therapeutic indicating adequate to re-dose today. * Will start Vancomycin 1,250 mg (15mg/kg) IV Q24hrs * Goal trough level for UTI : 10 to 20 mcg/mL depending on cultures/sensitivitie s * Trough or random level ordered for: 07/08/20 (prior to 3rd maintenance dose). * Of note, this will NOT be steady state and further vanco accumulation likely after repeated doses. Pharmacy will continue to follow and will adjust dose/frequency as necessary. Thank you.
[2020-07-06] MEDS: bisacodyL 10 MG SUPP PR SCH (09:28)
[2020-07-06] MEDS: VANCOMYCIN HCL 1,250 MG in SODIUM CHLORIDE 0.9% 250 ML IV SCH (12:05)
--- NOTE | 2020-07-06 15:33 | Electrocardiogram Report ---
Test Reason : Blood Pressure : / mmHG Vent. Rate : 060 BPM Atrial Rate : 060 BPM P-R Int : 190 ms QRS Dur : 090 ms QT Int : 418 ms P-R-T Axes : 117 -37 082 degrees QTc Int : 418 ms Normal sinus rhythm Left axis deviation Nonspecific T wave abnormality Abnormal ECG When compared with ECG of 05-MAY-2020 20:27, Sinus rhythm has replaced Electronic atrial pacemaker Confirmed by Yaron Sarmiento ([id number]) on 07/06/2020 3:32:32 PM Referred By: REFERRED SELF Confirmed By:Yaron Sarmiento
--- NOTE | 2020-07-06 18:05 | Hospitalist Progress Note ---
Date of Service July 06, 2020 Assessment & Plan (1) Complicated UTI (urinary tract infection): No sepsis based on SIRS criteria but was significantly hypotensive on admission - suprapubic catheter and BL stents in place - hx of growing enterococcus, stenotrophomonas, grisel, e. Coli, generally sensitive to penicillins and cephalosporins with a few resistance patterns. - UA showing 3+ LE, 2+ blood, 1+ protein, >30 WBC, no bacteria, 10-30 RBC - Urine culture and blood cultures pending - Empiric Zosyn + Vanc for coverage of gram positives growing on stent/catheter and anaerobic/gram negative agents - WBC normal on admission, trend - initially hypotensive to 69/50 in ER, returned to normal BP s/p 2L NS - afebrile in ER - cont pyridium and oxybutynin for bladder spasms - appreciate urology consult, no intervention required at the current time. - consulted ID Chronic Indwelling suprapubic catheter + stents - stents present and not visibly malaligned on KUB - CT A/P wo con to evaluate for hydronephrosis GIOVANY on CKD - Cr up to 2.31, baseline ~ 2.15, improved to 1.78 today - likely secondary to UTI Chronic Medical Problems Afib: cont eliquis, rate controlled Constipation: sched bisacodyl, miralax BID Anx/Dep: cont bupropion, celexa, Dementia: cont memantine, donepezil, folic acid, thiamine. delirium precautions. HTN: holding isosorbide mononitrate, carvedilol due to hypotension GERD/Hx Ulcer: cont famotidine Iron Def Anemia: Hg stable at 11, cont iron Hypothyroidism: cont levothyroxine CAD: cont statin Chronic Pain: cont gabapentin DVT ppx: on Eliquis FEN/GI: heart healthy diet, famotidine, NS @125 Full Code Dispo: Med/Surg with tele (2) CAD (coronary artery disease), [place] coronary artery: (3) HTN (hypertension), benign: (4) Cardiac pacemaker in situ: (5) BPH w urinary obs/LUTS: (6) Atrial fibrillation: (7) GERD (gastroesophageal reflux disease): (8) Aortic stenosis: (9) Anticoagulant long-term use: (10) Hx of gastric ulcer: (11) S/P ureteral stent placement: (12) Hx of sleep apnea: (13) Bilateral renal masses: (14) Stage 3b chronic kidney disease: (15) Presence of suprapubic catheter: (16) Avascular necrosis of bone of left hip: Admission and Anticipated Discharge Date Admission Date: July 05, 2020 Subjective Patient is alert but pleasantly disorientated x3. Aware he is in hospital but he is unsure what for. Infectious disease consult reviewed. Mild discharge surrounding suprapubic catheter. Hypotension on admission resolved and patient has been mostly hypertensive today. Review of Systems Review of Systems: All systems reviewed & are unremarkable except as noted in HPI & below Physical Exam Constitutional: WD/WN, vitals as above Eyes: + anicteric sclerae; normal pupil size Respiratory: normal respiratory effort, lungs clear to auscultation Cardiovascular: Rate/Rhythm: regular rate and regular rhythm Heart Sounds: + murmur (apex systolic 2/6) Extremities: normal capillary refill; no calf tenderness and no pedal edema Gastrointestinal (Abdomen): normal bowel sounds, soft, nontender, no hepatosplenomegaly (suprapubic catheter) Skin: no rashes, warm and dry Neurologic: moves all extremities and awake; not confused Psychiatric: Orientation: alert, oriented to person and oriented to place (county and state); + not oriented to time Genitourinary: no CVA tenderness Results & Data Results & Data ([facility]) Vital Signs (Past 12 Hours) Vital Signs Temp Pulse Pulse Pulse Resp BP BP 07/06/20 17:57 177/91 H 07/06/20 16:00 62 07/06/20 15:08 36.5 C 61 18 183/95 H 07/06/20 11:28 36.4 C L 53 L 16 160/74 H 07/06/20 09:38 157/85 H 07/06/20 08:03 36.6 C 58 L 20 165/101 H 07/06/20 08:00 65 Pulse Ox 07/06/20 17:57 07/06/20 16:00 07/06/20 15:08 94 07/06/20 11:28 93 07/06/20 09:38 07/06/20 08:03 95 07/06/20 08:00 PG Care Time/CCT Total # of Minutes Spent Total Time Spent with Patient: Total time spent is greater than 50% in coordination of care (as documented) at patient's floor/unit and/or counseling patient: Coding Level of Care Code 33419 Subseq Hosp Care Lvl 2 Diagnoses Complicated UTI (urinary tract infection) N39.0 CAD (coronary artery disease), [place] coronary artery I25.10 Associated angina: without angina [place] vs. transplanted heart: [place] heart HTN (hypertension), benign I10 Cardiac pacemaker in situ Z95.0 BPH w urinary obs/LUTS N40.1; N13.8 Atrial fibrillation I48.91 Atrial fibrillation type: unspecified GERD (gastroesophageal reflux disease) K21.9 Esophagitis presence: esophagitis presence not specified Aortic stenosis I35.0 Anticoagulant long-term use Z79.01 Hx of gastric ulcer Z87.19 S/P ureteral stent placement Z96.0 Hx of sleep apnea Z86.69 Bilateral renal masses N28.89 Stage 3b chronic kidney disease N18.32 Presence of suprapubic catheter Z93.59 Avascular necrosis of bone of left hip M87.052 (1) Atrial fibrillation Atrial fibrillation type: unspecified Qualified Code(s): I48.91 - Unspecified atrial fibrillation (2) CAD (coronary artery disease), [place] coronary artery Associated angina: without angina [place] vs. transplanted heart: [place] heart Qualified Code(s): I25.10 - Atherosclerotic heart disease of [place] coronary artery without angina pectoris (3) GERD (gastroesophageal reflux disease) Esophagitis presence: esophagitis presence not specified Qualified Code(s): K21.9 - Gastro-esophageal reflux disease without esophagitis
[2020-07-06] MEDS: DONEPEZIL HCL 10 MG TAB PO SCH (20:12)
[2020-07-06] MEDS: SIMVASTATIN 80 MG TAB PO SCH (20:12)
[2020-07-06] MEDS: GABAPENTIN 300 MG CAP PO SCH (20:12)
[2020-07-06] MEDS: TAMSULOSIN HCL 0.4 MG CAP PO SCH (20:12)
[2020-07-07] MEDS: PIPERACILLIN/TAZOBACTAM 3.375 GM in DEXTROSE 5% 100 ML IV SCH ×3 (00:40→16:21)
[2020-07-07] MEDS: MEMANTINE HCL 10 MG TAB PO SCH ×2 (08:02→20:36)
[2020-07-07] MEDS: FAMOTIDINE 40 MG TABLET PO SCH (08:03)
[2020-07-07] MEDS: buPROPion SR 100 MG TABCR PO SCH (08:03)
[2020-07-07] MEDS: PHENAZOPYRIDINE HCL 200 MG TAB PO PRN (08:03)
[2020-07-07] MEDS: ISOSORBIDE MONO EXTENDED REL 60 MG TABCR PO SCH (08:03)
[2020-07-07] MEDS: APIXABAN 2.5 MG TAB PO SCH ×2 (08:03→20:35)
[2020-07-07] MEDS: THIAMINE HCL 100 MG TAB PO SCH (08:03)
[2020-07-07] MEDS: POLYETHYLENE (MIRALAX) 17 GM PACK PO SCH ×2 (08:03→20:37)
[2020-07-07] MEDS: CITALOPRAM 20 MG TAB PO SCH (08:04)
[2020-07-07] MEDS: FOLIC ACID 1 MG TAB PO SCH (08:04)
[2020-07-07] MEDS: bisacodyL 10 MG SUPP PR SCH (08:09)
[2020-07-07] MEDS ORDERED: amLODIPine BESYLATE 5 MG TAB PO ONE (10:15)
[2020-07-07] MEDS: ADVANCED PROBIOTIC 1250 MG CAPSULE PO SCH (11:15)
[2020-07-07] MEDS: VANCOMYCIN HCL 1,250 MG in SODIUM CHLORIDE 0.9% 250 ML IV SCH (12:16)
--- NOTE | 2020-07-07 19:22 | Hospitalist Progress Note ---
Date of Service July 07, 2020 Assessment & Plan (1) Complicated UTI (urinary tract infection): Urine and blood cultures thus far negative. Remains on zosyn/vanco. Adjust abx once urine cx finalizes. Patient very stable at this time without signs/symptoms of sepsis. (2) GIOVANY (acute kidney injury): resolving BMP am was likely pre-renal in etiology (3) CAD (coronary artery disease), [place] coronary artery: cont home meds resume coreg may need to change statin since starting amlodipine for BP (4) HTN (hypertension), benign: resume coreg amlodipine now ultimately resume his imdur (5) Cardiac pacemaker in situ: noted (6) BPH w urinary obs/LUTS: chronic suprapubic catheter need for flomax since he has SP catheter and such is planned long-term?? consider d/c flomax (7) Atrial fibrillation: paroxysmal most recent EKG with NSR tele also with NSR resume eliquis resume coreg (8) GERD (gastroesophageal reflux disease): pepcid (9) Aortic stenosis: (10) Anticoagulant long-term use: eliquis (11) Hx of gastric ulcer: (12) S/P ureteral stent placement: b/l ureteral stents - recent urology visit with Dr Medrano seen by urology this admission - no intervention for SP catheter or stents while here (13) Hx of sleep apnea: (14) Bilateral renal masses: (15) Stage 3b chronic kidney disease: baseline Cr about 1.7/1.8 superimposed GIOVANY dailiy BMP while here (16) Presence of suprapubic catheter: (17) Avascular necrosis of bone of left hip: (18) Discharge planning issues: needs PT/OT evals to determine if safe for home Admission and Anticipated Discharge Date Admission Date: July 05, 2020 Subjective patient resting comfortably in bed during the visit denied any complaints "I just want to thank you for everything you do" (I had cared for him during a previous hospital stay and he had said similar things) 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, black stool but heme negative x 2 since admission Review of Systems Constitutional: no fatigue and no anorexia Respiratory: no dyspnea Cardiovascular: no chest pain Gastrointestinal: no abdominal pain Physical Exam Constitutional: + altered mental status; no acute distress ENMT: external ear and nose normal, oropharynx normal Respiratory: no respiratory distress Auscultation: + wheezes; no crackles Cardiovascular: Rate/Rhythm: regular rate and regular rhythm Heart Sounds: normal S1, normal S2 and + murmur (systolic, LSB) Vessels: posterior tibial p ulses present and dorsalis pedis pulses present; no JVD Extremities: no edema Gastrointestinal (Abdomen): normal bowel sounds, soft, nontender, no hepatosplenomegaly suprapubic catheter in place, insertion site clean Psychiatric: Orientation: alert, oriented to person and oriented to place; + not oriented to time Results & Data Results & Data ([facility]) Vital Signs (Past 12 Hours) Vital Signs Temp Pulse Pulse Resp BP BP Pulse Ox 07/07/20 15:18 36.6 C 61 18 152/82 H 93 07/07/20 14:20 54 L 07/07/20 10:40 36.6 C 61 18 128/74 93 07/07/20 07:44 56 L 07/07/20 07:39 36.6 C 55 L 18 168/93 H 172/89 H 96 07/07/20 07:28 36.5 C 59 L 18 187/95 H 92 Laboratory Results Laboratory Results - last 24 hr 07/07/20 15:21 Stool Occult Bld Scrn Negative blood and urine cx's neg to date PG Care Time/CCT Total # of Minutes Spent Total Time Spent with Patient: Total time spent is greater than 50% in coordination of care (as documented) at patient's floor/unit and/or counseling patient: Coding Level of Care Code 11209 Subseq Hosp Care Lvl 2 Diagnoses Complicated UTI (urinary tract infection) N39.0 GIOVANY (acute kidney injury) N17.9 CAD (coronary artery disease), [place] coronary artery I25.10 Associated angina: without angina [place] vs. transplanted heart: [place] heart HTN (hypertension), benign I10 Cardiac pacemaker in situ Z95.0 BPH w urinary obs/LUTS N40.1; N13.8 Atrial fibrillation I48.91 Atrial fibrillation type: unspecified GERD (gastroesophageal reflux disease) K21.9 Esophagitis presence: esophagitis presence not specified Aortic stenosis I35.0 Anticoagulant long-term use Z79.01 Hx of gastric ulcer Z87.19 S/P ureteral stent placement Z96.0 Hx of sleep apnea Z86.69 Bilateral renal masses N28.89 Stage 3b chronic kidney disease N18.32 Presence of suprapubic catheter Z93.59 Avascular necrosis of bone of left hip M87.052 Discharge planning issues Z02.9 (1) Atrial fibrillation Atrial fibrillation type: unspecified Qualified Code(s): I48.91 - Unspecified atrial fibrillation (2) CAD (coronary artery disease), [place] coronary artery Associated angina: without angina [place] vs. transplanted heart: [place] heart Qualified Code(s): I25.10 - Atherosclerotic heart disease of [place] coronary artery without angina pectoris (3) GERD (gastroesophageal reflux disease) Esophagitis presence: esophagitis presence not specified Qualified Code(s): K21.9 - Gastro-esophageal reflux disease without esophagitis
[2020-07-07] MEDS: GABAPENTIN 300 MG CAP PO SCH (20:36)
[2020-07-07] MEDS: DONEPEZIL HCL 10 MG TAB PO SCH (20:36)
[2020-07-07] MEDS: TAMSULOSIN HCL 0.4 MG CAP PO SCH (20:37)
[2020-07-07] MEDS: LEVOTHYROXINE SODIUM 100 MCG TABLET PO SCH (20:37)
[2020-07-08] MEDS: PIPERACILLIN/TAZOBACTAM 3.375 GM in DEXTROSE 5% 100 ML IV SCH ×2 (00:02→07:27)
[2020-07-08 07:32] LABS: Hematocrit (blood only) 36.3 % (42-52); Hemoglobin 11.5 g/dL (14.0-18.0); Mean Corpuscular Hemoglobin 30.7 pg (25-34); Mean Corpuscular Hgb Conc 31.7 g/dL (32-36); Mean Corpuscular Volume 96.8 fL (80-100); Mean Platelet Volume 9.9 fL (7.4-10.4); Platelet Count 214 K/uL (130-400); RDW Coefficient of Variation 14.5 % (11.5-14.5); RDW Standard Deviation 51.3 fL (36.4-46.3); Red Blood Count 3.75 M/uL (4.7-6.1); White Blood Count 8.06 K/uL (4.8-10.8)
[2020-07-08 07:48] LABS: BUN Creatinine Ratio 8.2 (10-20); Calcium 8.8 mg/dl (8.5-10.1); Creatinine Clr Calc Pharmacy 32.7 ml/min; Est GFR (African American) 42.6 ml/min; Est GFR (Non-African American) 36.7 ml/min; Potassium 3.8 mmol/L (3.5-5.1)
[2020-07-08] MEDS: ISOSORBIDE MONO EXTENDED REL 60 MG TABCR PO SCH (08:35)
[2020-07-08] MEDS: THIAMINE HCL 100 MG TAB PO SCH (08:35)
[2020-07-08] MEDS: buPROPion SR 100 MG TABCR PO SCH (08:35)
[2020-07-08] MEDS: CITALOPRAM 20 MG TAB PO SCH (08:36)
[2020-07-08] MEDS: FOLIC ACID 1 MG TAB PO SCH (08:36)
[2020-07-08] MEDS: amLODIPine BESYLATE 5 MG TAB PO SCH (08:36)
[2020-07-08] MEDS: ADVANCED PROBIOTIC 1250 MG CAPSULE PO SCH (08:36)
[2020-07-08] MEDS: PHENAZOPYRIDINE HCL 200 MG TAB PO PRN (08:36)
[2020-07-08] MEDS: FAMOTIDINE 40 MG TABLET PO SCH (08:36)
[2020-07-08] MEDS: bisacodyL 10 MG SUPP PR SCH (08:37)
[2020-07-08] MEDS: APIXABAN 2.5 MG TAB PO SCH ×2 (08:37→21:54)
[2020-07-08] MEDS: MEMANTINE HCL 10 MG TAB PO SCH ×2 (08:37→21:54)
[2020-07-08] MEDS: POLYETHYLENE (MIRALAX) 17 GM PACK PO SCH ×2 (08:37→21:49)
[2020-07-08] MEDS ORDERED: amLODIPine BESYLATE 5 MG TAB PO SCH (10:30)
[2020-07-08] MEDS ORDERED: carvediloL 3.125 MG TAB PO ONE (10:34)
[2020-07-08] MEDS ORDERED: VANCOMYCIN TROUGH ONE (11:30)
[2020-07-08] MEDS: FLUCONAZOLE 100 MG TAB PO SCH (11:53)
--- NOTE | 2020-07-08 17:33 | XRay Report ---
TWO VIEW CHEST CLINICAL HISTORY: Wheezing. FINDINGS: PA and lateral chest radiographs are compared to study dated 07/05/2020. Atypical cardiac pa cemaker is in place. The heart is enlarged noting atherosclerotic calcification of the thoracic aorta . The pulmonary vasculature is noncongested. Emphysema and chronic interstitial thickening is similar to previous. There is bibasilar scarring/atelectasis. No airspace consolidation or pleural effusion is identified. There is no pneumothorax. The skeletal structures are osteopenic. The bony thorax appe ars intact. Degenerative change and hyperkyphosis is noted in the thoracic spine. IMPRESSION: 1. Cardiomegaly and cardiac pacemaker. There is no radiographic evidence of congestive failure. 2. There is no airspace consolidation or pleural effusion. 3. Emphysema. ACT 112: Negative or not required by law. Electronically signed by: Santy Acuña M.D. 07/08/2020 5:32 PM
[2020-07-08] MEDS ORDERED: IPRATROPIUM BROMIDE/ALBUTEROL respimat INH INH SCH (18:25)
[2020-07-08] MEDS: ALBUTEROL HFA 8 GM INHALER INH SCH (19:00)
[2020-07-08] MEDS: IPRATROPIUM BROMIDE HFA INHALER INH SCH (19:01)
--- NOTE | 2020-07-08 21:27 | Hospitalist Progress Note ---
Date of Service July 08, 2020 Assessment & Plan (1) Complicated UTI (urinary tract infection): Urine culture showed 18664 CFU of grisel albicans. No bacteria. d/c zosyn, vanco. start diflucan 100mg daily x 7-10 days. (2) GIOVANY (acute kidney injury): resolved Peak Cr 2.3 1.7 today BMP am was likely pre-renal in etiology in the setting of his complicated UTI (3) CAD (coronary artery disease), [place] coronary artery: resume coreg if HR will allow resume statin at d/c consider lowering imdur to 30mg at discharge amlodipine for now (4) HTN (hypertension), benign: patient has intermittently had low BPs and mild orthostasis flomax d/c due to the orthostasis as well as the fact he will have ongoing use of a suprapubic catheter resume coreg imdur consider amlodipine at d/c; continue 5mg for now (5) Cardiac pacemaker in situ: noted (6) BPH w urinary obs/LUTS: chronic suprapubic catheter need for flomax since he has SP catheter and such is planned long-term?? will d/c flomax given his low BPs and suprapubic catheter (7) Atrial fibrillation: paroxysmal most recent EKG with NSR tele also with NSR resumed eliquis and coreg (8) GERD (gastroesophageal reflux disease): pepcid (9) Aortic stenosis: at least moderate based on last echo (10) Anticoagulant long-term use: eliquis (11) Hx of gastric ulcer: (12) S/P ureteral stent placement: b/l ureteral stents - recent urology visit with Dr Medrano seen by urology this admission - no intervention for SP catheter or stents while here stents to be exchanged later in July as scheduled (07/23/20) (13) Hx of sleep apnea: (14) Bilateral renal masses: none seen on CT abd/pelvis this admission of note - there is ? abscess next to the bladder during this stay he has had normal WBC count, no significant abdominal pain, and no fever unlikely abscess suspect air is due to recent SP catheter exchange (15) Stage 3b chronic kidney disease: baseline Cr about 1.7/1.8 Cr today again stable BMP again in am (16) Presence of suprapubic catheter: s/p exchange on 06/[address] Medrano scheduled for another exchange on 07/23 (17) Avascular necrosis of bone of left hip: (18) Wheezing: ?COPD? (prior smoker) no symptoms from wheezing check cxr, r/o pulm edema causing the wheezing in meantime - albuterol q6h (19) Discharge planning issues: needs PT/OT evals to determine if safe for home updated by phone this evening Admission and Anticipated Discharge Date Admission Date: July 05, 2020 Subjective no complaints today pleasantly confused does voice he is wanting to get home to his soon eating fine per staff some issues today with orthostasis and mild dizziness - flomax d/c Review of Systems 2 Constitutional: no anorexia Respiratory: no cough, no dyspnea and no wheezing Cardiovascular: no chest pain Gastrointestinal: no abdominal pain, no nausea and no vomiting Physical Exam Constitutional: + altered mental status (but at baseline); no acute distress ENMT: external ear and nose normal, oropharynx normal Respiratory: no respiratory distress Auscultation: + wheezes; no crackles Cardiovascular: Rate/Rhythm: regular rate and regular rhythm Heart Sounds: normal S1, normal S2 and + murmur (systolic, LSB, 2/6) Vessels: posterior tibial pulses present and dorsalis pedis pulses present; no JVD Extremities: no edema Gastrointestinal (Abdomen): normal bowel sounds, soft, nontender, no hepatosplenomegaly Skin: suprapubic catheter in place - clean insertion site Psychiatric: Orientation: alert, oriented to person and oriented to place; + not oriented to time Results & Data Results & Data ([facility]) Vital Signs (Past 12 Hours) Vital Signs Temp Pulse Pulse Resp BP BP Pulse Ox 07/08/20 19:00 70 15 96 07/08/20 18:54 36.6 C 63 18 156/92 H 93 07/08/20 15:06 36.7 C 62 18 116/72 97 07/08/20 15:03 55 L 07/08/20 11:21 36.7 C 78 16 96/62 L 79/56 L 93 07/08/20 09:30 36.6 C 74 18 158/74 H 93 Laboratory Results Laboratory Results - last 24 hr 07/08/20 07/08/20 07:01 07:01 WBC 8.06 RBC 3.75 L Hgb 11.5 L Hct 36.3 L MCV 96.8 MCH 30.7 MCHC 31.7 L RDW Std Deviation 51.3 H RDW Coeff of [place] 14.5 Plt Count 214 MPV 9.9 Sodium 142 Potassium 3.8 Chloride 109 H Carbon Dioxide 29 Anion Gap 4.0 BUN 14 Creatinine 1.71 H Est Cr Clr Drug Dosing 32.7 Est GFR ( Amer) 42.6 Est GFR (Non-Af Amer) 36.7 BUN/Creatinine Ratio 8.2 L Glucose 82 Calcium 8.8 Chest X-Ray 07/08/20 16:59 TWO VIEW CHEST CLINICAL HISTORY: Wheezing. FINDINGS: PA and lateral chest radiographs are compared to study dated 07/05/2020. Atypical cardiac pacemaker is in place. The heart is enlarged noting atherosclerotic calcification of the thoracic aorta. The pulmonary vasculature is noncongested. Emphysema and chronic interstitial thickening is similar to previous. There is bibasilar scarring/atelectasis. No airspace consolidation or pleural effusion is identified. There is no pneumothorax. The skeletal structures are osteopenic. The bony thorax appears intact. Degenerative change and hyperkyphosis is noted in the thoracic spine. IMPRESSION: 1. Cardiomegaly and cardiac pacemaker. There is no radiographic evidence of congestive failure. 2. There is no airspace consolidation or pleural effusion. 3. Emphysema. ACT 112: Negative or not required by law. Electronically signed by: Santy Acuña M.D. 07/08/2020 5:32 PM PG Care Time/CCT Total # of Minutes Spent Total Time Spent with Patient: Total time spent is greater than 50% in coordination of care (as documented) at patient's floor/unit and/or counseling patient: Coding Level of Care Code 59118 Subseq Hosp Care Lvl 2 Diagnoses Complicated UTI (urinary tract infection) N39.0 GIOVANY (acute kidney injury) N17.9 CAD (coronary artery disease), [place] coronary artery I25.10 Associated angina: without angina [place] vs. transplanted heart: [place] heart HTN (hypertension), benign I10 Cardiac pacemaker in situ Z95.0 BPH w urinary obs/LUTS N40.1; N13.8 Atrial fibrillation I48.91 Atrial fibrillation type: unspecified GERD (gastroesophageal reflux disease) K21.9 Esophagitis presence: esophagitis presence not specified Aortic stenosis I35.0 Anticoagulant long-term use Z79.01 Hx of gastric ulcer Z87.19 S/P ureteral stent placement Z96.0 Hx of sleep apnea Z86.69 Bilateral renal masses N28.89 Stage 3b chronic kidney disease N18.32 Presence of suprapubic catheter Z93.59 Avascular necrosis of bone of left hip M87.052 Wheezing R06.2 Discharge planning issues Z02.9 (1) Atrial fibrillation Atrial fibrillation type: unspecified Qualified Code(s): I48.91 - Unspecified atrial fibrillation (2) CAD (coronary artery disease), [place] coronary artery Associated angina: without angina [place] vs. transplanted heart: [place] heart Qualified Code(s): I25.10 - Atherosclerotic heart disease of [place] coronary artery without angina pectoris (3) GERD (gastroesophageal reflux disease) Esophagitis presence: esophagitis presence not specified Qualified Code(s): K21.9 - Gastro-esophageal reflux disease without esophagitis
[2020-07-08] MEDS: GABAPENTIN 300 MG CAP PO SCH (21:54)
[2020-07-08] MEDS: carvediloL 3.125 MG TAB PO SCH (21:54)
[2020-07-08] MEDS: LEVOTHYROXINE SODIUM 100 MCG TABLET PO SCH (21:54)
[2020-07-08] MEDS: DONEPEZIL HCL 10 MG TAB PO SCH (21:54)
[2020-07-09] MEDS: IPRATROPIUM BROMIDE HFA INHALER INH SCH ×2 (07:08→11:33)
[2020-07-09] MEDS: ALBUTEROL HFA 8 GM INHALER INH SCH ×2 (07:09→11:32)
[2020-07-09] MEDS: MEMANTINE HCL 10 MG TAB PO SCH (07:54)
[2020-07-09] MEDS: APIXABAN 2.5 MG TAB PO SCH (07:54)
[2020-07-09] MEDS: FAMOTIDINE 40 MG TABLET PO SCH (07:55)
[2020-07-09] MEDS: amLODIPine BESYLATE 5 MG TAB PO SCH (07:55)
[2020-07-09] MEDS: ADVANCED PROBIOTIC 1250 MG CAPSULE PO SCH (07:55)
[2020-07-09] MEDS: PHENAZOPYRIDINE HCL 200 MG TAB PO PRN (07:55)
[2020-07-09] MEDS: ISOSORBIDE MONO EXTENDED REL 60 MG TABCR PO SCH (07:55)
[2020-07-09] MEDS: FOLIC ACID 1 MG TAB PO SCH (07:55)
[2020-07-09] MEDS: FLUCONAZOLE 100 MG TAB PO SCH (07:56)
[2020-07-09] MEDS: THIAMINE HCL 100 MG TAB PO SCH (07:56)
[2020-07-09] MEDS: CITALOPRAM 20 MG TAB PO SCH (07:56)
[2020-07-09] MEDS: buPROPion SR 100 MG TABCR PO SCH (07:56)
[2020-07-09] MEDS: carvediloL 3.125 MG TAB PO SCH (07:57)
[2020-07-09] MEDS: POLYETHYLENE (MIRALAX) 17 GM PACK PO SCH (07:58)
[2020-07-09] MEDS: bisacodyL 10 MG SUPP PR SCH (07:58)
[2020-07-09 07:59] LABS: Calcium 8.5 mg/dl (8.5-10.1); Creatinine Clr Calc Pharmacy 29.7 ml/min; Est GFR (African American) 37.7 ml/min; Est GFR (Non-African American) 32.5 ml/min; Potassium 4.1 mmol/L (3.5-5.1)
--- NOTE | 2020-07-09 14:06 | Discharge Summary ---
Date of Service date of admission - July 05, 2020 date of discharge - July 09, 2020 Admission HPI Per Admitting Provider 80 yo M with hx of BL ureteral stents, suprapubic catheter placement, CKD3b, afib, hyperlipidemia, BPH with LUTS, CAD, HTN, VA, and dementia who presented to the ER with his daughter for concern of low blood pressures and altered mental status. Daughter states that he frequently gets UTIs and the family is able to tell when because of changes in his behavior. He was seen by Dr. Medrano of Urology approximately 1 week ago for cystoscopy and suprapubic catheter check. Placed on Ampicillin PO at that time. Per family, for the last 36-48 hours, he has been more confused, lethargic, with less PO intake. Blood pressure measured at home was 48/43 per daughter. At time of ER presentation his systolic BP ranged 70-100 in the first hour of his ER course. ER course significant for 2L NS fluid resuscitation, urine and blood cultures drawn, zosyn given. Principal Diagnosis 1. hypotension 2. complicated UTI Discharge Exam Constitutional + altered mental status (but at baseline); no acute distress ENMT external ear and nose normal, oropharynx normal Respiratory no respiratory distress Auscultation: no crackles and no wheezes Cardiovascular Rate/Rhythm: regular rate and regular rhythm Heart Sounds: normal S1, normal S2 and + murmur (systolic, LSB, 2/6) Vessels: posterior tibial pulses present and dorsalis pedis pulses present; no JVD Extremities: no edema Gastrointestinal (Abdomen) normal bowel sounds, soft, nontender, no hepatosplenomegaly Musculoskeletal Extremities: + clubbing Psychiatric Orientation: alert, oriented to person and oriented to place; + not oriented to time Genitourinary suprapubic catheter in place; insertion site on abdominal wall without erythema, drainage. Discharge Data Allergies Allergy/AdvReac Type Severity Reaction Status Date / Time captopril Allergy Severe ANAPHYLAXIS Verified 07/12/20 10:31 Iodinated Contrast Media Allergy Severe ANAPHYLAXIS Verified 07/12/20 10:31 levofloxacin Allergy Severe ANAPHYLAXIS Verified 07/12/20 10:31 morphine Allergy Severe Anaphylaxis Verified 07/12/20 10:31 oxaprozin Allergy Severe ANAPHYLAXIS Verified 07/12/20 10:31 Sulfa (Sulfonamide Allergy Severe Anaphylaxis Verified 07/12/20 10:31 Antibiotics) torsemide Allergy Severe ANAPHYLAXIS Verified 07/12/20 10:31 hydrocodone Allergy Mild RASH Verified 07/12/20 10:31 Consultations Consult Infectious Diseases - [facility] Urology PT, OT Ordered Studies Chest X-Ray 07/05/20 16:09 XR chest 1V portable HISTORY: SEPSIS COMPARISON: Chest 05/05/2020. FINDINGS: No pneumothorax or no pleural effusions. The heart remains normal in size. There is left-sided dual-chamber pacemaker. Calcifications are again noted within the aortic knob. No new focal lung consolidations to suggest pneumonia. No evidence for pulmonary edema. IMPRESSION: No significant change compared to the prior study. No acute process. ACT 112: Negative or not required by law. Electronically signed by: Travis Cabrera M.D. 07/05/2020 4:42 PM KUB X-Ray 07/05/20 18:41 KUB CLINICAL HISTORY: Abdominal pain. Urinary tract infection. COMPARISON STUDY: CT of the abdomen and pelvis May 05, 2020. FINDINGS: Cholecystectomy clips are noted. Severe osteoarthritis of the left hip is noted with flattening of the femoral head and subchondral cystic change and sclerosis. There is moderate to severe osteoarthritis of the right hip. Bilateral ureteral stents are in place. Distal aspect of left ureteral stent is slightly low-lying. This is unchanged. No ureteral calculi are identified. There is a large amount stool within the rectum. There is no evidence for a bowel obstruction. IMPRESSION: 1. No change in position of bilateral ureteral stents. No ureteral calculi identified. 2. No evidence for a bowel obstruction. Large amount stool within the rectum. ACT 112: Negative or not required by law. Electronically signed by: Glen Melvin M.D. 07/05/2020 8:46 PM Abdomen/Pelvis CT 07/05/20 18:49 CT SCAN OF THE ABDOMEN AND PELVIS WITHOUT CONTRAST CLINICAL HISTORY: suprapubic cath uti with stents COMPARISON STUDY: May 05, 2020 TECHNIQUE: CT scan of the abdomen and pelvis was performed from the lung bases to the proximal femurs. Images are reviewed in the axial, sagittal, and coronal planes. IV contrast was not administered for this examination. A dose lowering technique was utilized adhering to the principles of ALARA. CT DOSE: 691.14 mGy.cm FINDINGS: Lower chest: Minimal atelectasis is seen in bilateral bases. Stable bronchiectasis within the right lower lobe. Liver: The unenhanced liver is normal in size, contour, and attenuation. There is no intrahepatic biliary ductal dilatation. Gallbladder: Surgically absent. Spleen: Normal in size with multiple calcifications within its parenchyma likely representing sequela from prior granulomatous process. Pancreas: Unremarkable. Adrenal glands: Unremarkable. Kidneys: Atrophic bilateral kidneys. Urinary stents are seen bilaterally with interval resolution of the hydronephrosis on the right and unchanged mild to moderate hydronephrosis on the left. No renal calculi are seen. Stable right renal cyst measuring 4.1 cm in size. Bowel: Loops of small bowel and nondilated. Appendix is not well seen. Ascending, transverse and descending colon are nondilated with extensive stool content. Rectum is dilated with mild thickening of its wall and minimal surrounding fat stranding which could represent fecal impaction in possible proctitis. Peritoneum: There is no intraperitoneal free air or abdominal ascites. Vasculature: Descending thoracic and upper abdominal aorta is ectatic measuring up to 3 cm in diameter with scattered calcifications of its wall. Adenopathy: None. Pelvic viscera: Urinary bladder is decompressed with suprapubic catheter. Focal gas collection is seen within its lumen, wall thickening and and surrounding fat stranding. Focal area of gas collection is seen outside of the urinary bladder lumen (series 3 image 225) and might represent abscess formation. Skeletal structures: Osteopenia. Degenerative changes of the spine. Fusion of L4-L5 intervertebral disc. IMPRESSION: 1. Suprapubic catheter within collapsed urinary bladder with surrounding inflammatory changes and questionable area of gas collection outside of the urinary bladder wall concerning for developing abscess. Evaluation is limited due to lack of IV contrast. 2. Bilaterally urinary stents. Stable hydronephrosis on the left. 3. Atherosclerosis. Ectasia of the lower thoracic and upper abdominal aorta. 4. Fecal impaction. Possible proctitis. ACT 112: Negative or not required by law. The above report was generated using voice recognition software. It may contain grammatical, syntax or spelling errors. Electronically signed by: Leonela Lucia DO 07/05/2020 8:31 PM Chest X-Ray 07/08/20 16:59 TWO VIEW CHEST CLINICAL HISTORY: Wheezing. FINDINGS: PA and lateral chest radiographs are compared to study dated 07/05/2020. Atypical cardiac pacemaker is in place. The heart is enlarged noting atherosclerotic calcification of the thoracic aorta. The pulmonary vasculature is noncongested. Emphysema and chronic interstitial thickening is similar to previous. There is bibasilar scarring/atelectasis. No airspace consolidation or pleural effusion is identified. There is no pneumothorax. The skeletal structures are osteopenic. The bony thorax appears intact. Degenerative change and hyperkyphosis is noted in the thoracic spine. IMPRESSION: 1. Cardiomegaly and cardiac pacemaker. There is no radiographic evidence of congestive failure. 2. There is no airspace consolidation or pleural effusion. 3. Emphysema. ACT 112: Negative or not required by law. Electronically signed by: Santy Acuña M.D. 07/08/2020 5:32 PM Hospital Course (1) Complicated UTI (urinary tract infection): Urine culture showed [id number] CFU of grisel albicans. No bacteria. Early in stay had been on zosyn with vancomycin. Both were discontinued and he was initiated on diflucan 100mg daily. He received his first 2 doses of diflucan while hospitalized. After discharge he will complete 8 additional days of the diflucan. He is scheduled for suprapubic catheter exchange on 07/23/[address] Medrano. (2) Catheter-associated urinary tract infection: As above (3) Presence of suprapubic catheter: s/p exchange on 06/27/[address] Medrano - [facility] Urology. scheduled for another exchange on 07/23/20. (4) Hypotension: Suspect 2nd to volume depletion in setting of yeast UTI. BPs improved with IV fluids, discontinuation of flomax, as well as reduction in imdur dose. (5) S/P ureteral stent placement: seen by urology this admission - no intervention for SP catheter or stents while here. stents to be exchanged later in July as scheduled (07/23/20). (6) GIOVANY (acute kidney injury): resolved Peak Cr 2.3 Cr 1.89 at discharge was likely pre-renal in etiology in the setting of his complicated UTI (7) CAD (coronary artery disease), [place] coronary artery: Continue low-dose coreg 3.125mg BID. Continue statin. In light of low BPs encountered during the stay his imdur dose was lowered to 30mg daily. He had no ischemic symptoms while here. (8) HTN (hypertension), benign: Patient had intermittently low BPs and mild orthostasis throughout the stay. Flomax was discontinued due to the orthostasis as well as the fact he will have ongoing use of a suprapubic catheter. Ultimately his BP medication regimen consisted of coreg with imdur. (9) Cardiac pacemaker in situ: (10) BPH w urinary obs/LUTS: chronic suprapubic catheter. due for exchange on 07/23/20. will d/c flomax given his low BPs, orthostasis, and the fact he has a suprapubic catheter. (11) Atrial fibrillation: paroxysmal most recent EKG with NSR tele also with NSR durin the stay Continue eliquis and coreg. (12) GERD (gastroesophageal reflux disease): pepcid (13) Aortic stenosis: at least moderate based on last echo (14) Anticoagulant long-term use: eliquis (15) Hx of gastric ulcer: cont Pepcid 40mg daily (16) Hx of sleep apnea: (17) Bilateral renal masses: none seen on CT abd/pelvis this admission of note - there is ? abscess next to the bladder as well as adjacent air on admission CT. during this stay he had had normal WBC count, no significant abdominal pain, and no fever unlikely abscess suspect air is due to recent SP catheter exchange (18) Stage 3b chronic kidney disease: baseline Cr about 1.7/1.8 Cr on day of discharge -- 1.89 (19) Avascular necrosis of bone of left hip: (20) Wheezing: intermittently he had wheezing on exam during the visit. suspect underlying COPD. has fingernail clubbing. albuterol prn. (21) Hypothyroidism: last TSH was 18.9 in May 2020. he should be taking 112mcg of synthroid daily. at time of hospital follow-up advise TSH check. (22) Iron deficiency anemia: history of. was taking BID ferrous sulfate at time of admission. ferritin was 80 in May 2020, and hemoglobin was 11.5 at discharge. thus, patient told he could cut the dose of ferrous sulfate back from BID dosing to once daily, especially in light of his severe constipation. Home Health Attestation I certify that this patient is under my care and that I, or a physicians conservation assistant working with me, had a face to-face encounter that meets the home health [id number] encounter requirements with this patient. The encounter with the patient was in whole, or in part, for the following medical condition, which is the primary reason for home health care (list medical condition): I certify that, based on my findings, the following services are medically necessary home health services: My clinical findings support the need for the above services because: Further, I certify that my clinical findings support that this patient is homebound (i.e. absences from home require considerable and taxing effort and are for medical reasons or sabianism services or infrequently or of short duration when for other reasons) because: Certification for Home Health Services: Based on the above findings, I certify that this patient is confined to the home and needs intermittent chcf care, physical therapy and/or speech therapy or continues to need occupational therapy. The patient is under my care, and I have initiated the establishment of the plan of care. This patient will be followed by a physician who will periodically review the plan of care. Total Time Total Time Spent Total Time Spent (In Minutes): 40 Total Time Includes: Examination of the Patient, Discharge Planning, Medication Reconciliation and Communication With Other Providers Discharge Plan Discharge Items Patient Disposition: Home - Home Health Services Reason For Visit: UTI Discharge Diagnosis: 1. Urinary tract infection (UTI) due to yeast - resolving 2. Low blood pressure - due to medications? UTI? other? - resolved 3. Constipation - resolved 4. Dark appearing stools - no evidence of blood in the stools (tested twice while here); likely that your iron tablets you had been taking at home before admission is the cause 5. Suprapubic catheter Activity: Resume your previous activity Non-emergency contact: Primary Care Provider, Automatic Engraver and Urologist Call non-emergency contact if: you have any medication questions, your symptoms worsen, your pain is not controlled and you have a fever Follow-up/Referrals: Tomas Fenton MD [Physician] - 07/18/20 (Pacemaker check ) Celina Saunders DO [Primary Care Provider] - (see Dr Saunders within 1 week) William Medrano DO [Physician] - 07/23/20 (catheter exchange with Dr Medrano ) Diet: Heart Healthy Addtl Attending Provider Instructions: Mr Momin, You were treated for the problems listed above in "discharge diagnoses." Your urine culture ultimately grew out yeast. You were treated for yeast UTI with anti-yeast medication (fluconazole). Your blood pressure improved with IV fluids and time. We also made several adjustments to your blood pressure medications. Recommendations - 1. Urinary tract infection - take fluconazole 100mg once daily for 8 more days; first dose on 07/10/20. Please discontinue any previous antibiotic course you had been taking. 2. Blood pressure - * please CONTINUE the following - * carvedilol 3.125mg twice a day * isosorbide mononitrate -- instead of 60mg please cut the tablet in half and take 30mg once daily only * please STOP the following - * tamsulosin 0.4mg -- please stop this medication * although this is for your prostate it also affects your blood pressure; it may have been causing the blood pressure to go too low 3. for cough/wheezing/chest congestion/shortness of breath - * take albuterol 2 puffs every 6 hours as needed 4. iron supplement - ok to REDUCE it from twice daily to once daily. Your blood counts are very stable and the iron is likely contributing to your constipation. 5. constipation - take miralax TWICE DAILY. Your constipation was fairly severe. Miralax can be purchased [id number]. 6. please remember that the phenazopyridine medication for bladder pain makes the urine look orange in color. This is a normal side effect. Follow-up - see separate section Return to [facility] if - * you have fever over 100 degrees * you have worsening abdominal pain, bladder pain, etc * you have shortness of breath * any concerns about your suprapubic urinary catheter * any other concerns Take good care! -Dr Wu Pending Studies at Discharge: No Stand-Alone Forms: My [facility], Smoking Cessation Medications and DC Order Prescriptions: New fluconazole 100 mg Tablet 100 mg PO QAM 8 Days Qty: 8 RF: 0 albuterol sulfate [Ventolin HFA] 90 mcg/actuation Hfa Aerosol Inhaler 2 puff inhalation Q6H PRN (Reason: cough/wheeze/shortness of breath) Qty: 1 RF: 0 Continued carvedilol 3.125 mg tablet 3.125 mg PO BID Qty: 180 RF: 1 folic acid 1 mg tablet 1 mg PO QAM Qty: 90 RF: 1 apixaban 2.5 mg tablet 2.5 mg PO BID Qty: 180 RF: 1 gabapentin 300 mg capsule 300 mg PO HS Qty: 90 RF: 1 famotidine [Pepcid] 40 mg tablet 40 mg PO QAM Qty: 90 RF: 1 tramadol 50 mg tablet 50 mg PO TID PRN (Reason: Pain) Qty: 60 RF: 0 donepezil 10 mg tablet 10 mg PO HS Qty: 90 RF: 3 memantine [Namenda] 10 mg tablet 10 mg PO BID Qty: 180 RF: 3 epinephrine [EpiPen] 0.3 mg/0.3 mL Auto-Injector 0.3 mg IM UD PRN (Reason: Allergic Reaction) RF: 0 acetaminophen 325 mg Tablet 650 mg PO Q4H PRN (Reason: pain) Qty: 30 RF: 0 citalopram 10 mg tablet 10 mg PO QAM RF: 0 bupropion HCl 100 mg tablet sustained-release 12 hr 100 mg PO QAM RF: 0 oxybutynin chloride 5 mg tablet 5 mg PO Q8H PRN (Reason: bladder spasms) Qty: 14 RF: 0 phenazopyridine [Pyridium] 200 mg tablet 200 mg PO Q8H PRN (Reason: pain) Qty: 10 RF: 0 bisacodyl 10 mg Suppository 10 mg [place] DAILY PRN (Reason: constipation) Qty: 12 RF: 0 thiamine HCl (vitamin B1) [Vitamin B-1] 100 mg Tablet 100 mg PO QAM Qty: 30 RF: 0 Changed polyethylene glycol 3350 [Miralax] 17 gram Powder In Packet 17 g PO BID Qty: 14 RF: 0 isosorbide mononitrate 60 mg tablet extended release 24 hr 30 mg PO QAM Qty: 90 RF: 1 ferrous sulfate 325 mg (65 mg iron) tablet,delayed release (DR/EC) 325 mg PO DAILY Qty: 180 RF: 1 Discontinued ampicillin 500 mg capsule 500 mg PO QID 10 Days Qty: 40 RF: 0 tamsulosin 0.4 mg Capsule 0.4 mg PO QPM Qty: 30 RF: 0 No Action simvastatin 80 mg tablet 80 mg PO HS Qty: 90 RF: 1 levothyroxine [Synthroid] 112 mcg tablet 112 mcg PO DAILYBB Qty: 90 RF: 1 Discharge Orders: Discharge Order (Routine); Ordered 07/09/20 Ordered By: Wilberto Wu Admission Data Admit Date/Time: 07/05/20 18:55 Attending Provider: Wilberto Wu Admit Provider: Aisha Hodeg Primary Care Provider: Celina Saunders Other Providers: Efrem Brown ; Travon Greenwood ; Johny Joaquin ; Fadi Martinez I. ; Kapil Ross II ; Yael Brandon ; Trip Castañeda ; Tomas Troy Other Interventions: Discharge Summary Assessment (RN) Last Done: 07/09/20 12:53 Coding Level of Care Code D/C Day Management >30 mins Diagnoses Complicated UTI (urinary tract infection) N39.0 Catheter-associated urinary tract infection T83.511A; N39.0 Presence of suprapubic catheter Z93.59 Hypotension I95.9 S/P ureteral stent placement Z96.0 GIOVANY (acute kidney injury) N17.9 CAD (coronary artery disease), [place] coronary artery I25.10 Associated angina: without angina [place] vs. transplanted heart: [place] heart HTN (hypertension), benign I10 Cardiac pacemaker in situ Z95.0 BPH w urinary obs/LUTS N40.1; N13.8 Atrial fibrillation I48.91 Atrial fibrillation type: unspecified GERD (gastroesophageal reflux disease) K21.9 Esophagitis presence: esophagitis presence not specified Aortic stenosis I35.0 Anticoagulant long-term use Z79.01 Hx of gastric ulcer Z87.19 Hx of sleep apnea Z86.69 Bilateral renal masses N28.89 Stage 3b chronic kidney disease N18.32 Avascular necrosis of bone of left hip M87.052 Wheezing R06.2 Hypothyroidism E03.9 Hypothyroidism type: acquired Iron deficiency anemia D50.9
== END 2020-07-09 15:40 | disposition home health service (06) | DRG 699 ==
LOC: ED 15:52 → SUATTDRO 18:55 → 2W 18:55

== ENCOUNTER 2021-09-19 15:40 | Observation (INO) ==
[2021-09-19] MEDS ORDERED: SODIUM CHLORIDE 0.9% 1000ML 1,000 ML IV SCH (17:30)
[2021-09-19 17:36] LABS: Appearance Urine Turbid (Clear); Bacteria Urine Automated Negative (Negative); Bilirubin Urine Negative (Negative); Blood Urine 3+ (Negative); Color Urine Yellow; Epithelial Cell Urine Auto >30 /lpf (0-5); Glucose Urine UA Negative (Negative); Ketones Urine Trace (Negative); Leukocyte Esterase Urine 3+ (Negative); Nitrite Urine Negative (Negative); Protein Urine 2+ (Negative); Specific Gravity Urine 1.012 (1.000-1.030); Urobilinogen Urine Negative (Negative); WBC Urine Automated >30 /hpf (0-5); pH Urine 7.5 (4.5-7.5)
[2021-09-19 17:44] LABS: Cast Urine Automated 0 /lpf (0-5); RBC Urine Automated >30 /hpf (0-4)
[2021-09-19 17:50] LABS: Alanine Aminotransferase 17 U/L (7-52); Alkaline Phosphatase 116 U/L (34-104); Anion Gap 11 (3-11); BUN Creatinine Ratio 8.5 (10-20); Bilirubin,Total 0.4 mg/dl (0.2-1.0); Blood Urea Nitrogen 17 mg/dl (6-23); Calcium 8.9 mg/dl (8.5-10.1); Carbon Dioxide 25 mmol/L (21-32); Chloride 100 mmol/L (98-107); Creatine Kinase 59 U/L (30-223); Est GFR (Non-African American) 30.2 ml/min; Globulin 3.9 gm/dl (2.5-4.0); Glucose 87 mg/dl (70-99(Fasting)); Magnesium 2.2 mg/dl (1.7-2.4); Sodium 136 mmol/L (136-145); Total Protein 7.9 gm/dl (6.0-8.3)
[2021-09-19 17:51] LABS: Hematocrit (blood only) 41.7 % (40.1-51.0); Hemoglobin 13.8 g/dl (14.0-18.0); Mean Corpuscular Hemoglobin 30.7 pg (25.0-34.0); Mean Corpuscular Hgb Conc 33.1 g/dL (32.0-36.0); Mean Corpuscular Volume 92.7 fL (80.0-100.0); Mean Platelet Volume 11.6 fL (9.4-12.4); Platelet Count 152 K/uL (130-400); RDW Coefficient of Variation 14.3 % (11.5-14.5); RDW Standard Deviation 48.8 fL (36.4-46.3); White Blood Count 7.37 K/ul (4.8-10.8)
--- NOTE | 2021-09-19 17:53 | XRay Report ---
XR chest 1V portable CLINICAL HISTORY: weakness. Evaluate cardiopulmonary status COMPARISON STUDY: 07/08/2020 TECHNIQUE: 1 view of the chest FINDINGS: Single frontal view of the chest demonstrates the heart to be prominent in size related to the poor i nspiratory effort. Permanent cardiac pacer is in place. There is a decreased inspiratory effort with elevation of the hemidiaphragms and crowding of the bronchovascular markings at the lung bases and ce ntrally. No confluent alveolar opacities are identified. There is no evidence for pleural effusion. T here is no evidence for vascular congestion. There is no acute osseous pathology. IMPRESSION: 1. There is a decreased inspiratory effort with otherwise no acute chest disease. ACT 112: Negative or not required by law. Electronically signed by: Brent Jameson M.D. 09/19/2021 5:51 PM
--- NOTE | 2021-09-19 17:53 | Emergency Department Note ---
Impression & Plan COVID-19, Weakness, Elevated troponin, Acute UTI (urinary tract infection) ED Provider Note INFORMANT: Patient ED PROVIDER(S): Alfredo Alcaraz MD CHIEF COMPLAINT: Weakness PLAN: Disposition: Admitted Condition: Good Outpatient prescription management: none Referral: None MEDICAL DECISION MAKING: Patient presented because of weakness and not doing well at home. He had a COVID contact. His was just admitted today with COVID-19. Patient was evaluated. His chest x-ray did not reveal any significant findings. Patient's ECG showed a sinus rhythm. Patient was found to have a mildly elevated troponin. His COVID testing is positive. The patient also has a urinary tract infection. Prior culture results revealed Rocephin resistance however there was susceptibility to cefepime. The patient was given a dose of IV cefepime. Family noted that he is not doing well at home. [facility] Patient was evaluated in the ER and admitted. Triage Nursing notes reviewed and agree them. Vital Signs: reviewed and remarkable for no significant abnormalities Differential diagnosis: Infection, dehydration, metabolic abnormality, hypo/hyperglycemia, electrolyte disturbance, anemia, hypoxia, cardiac sources, intracerebral event, toxicologic, neurologic, as well as other pathologies. Diagnostics interpreted by me: ECG: Twelve-lead ECG reveals sinus rhythm at 82 bpm. PVCs. Left axis deviation and inferior Q waves present. No ST elevation. Cardiac Monitoring: Cardiac monitoring ordered by me: The patient was placed on continuous cardiac monitoring and observed. It revealed a normal sinus rhythm at 74 beats per minute without ectopy or evidence of dysrhythmia. Imaging studies: Chest x-ray. Findings: A chest x-ray was performed and revealed no pneumothorax, effusion, infiltrate, pulmonary edema, free air under the diaphragm, or wide mediastinum. Impression: No acute disease. HPI: The patient is a 81 year old male who presents to the Emergency Room with complaints of weakness. This started over the last few days and is progressive per the family. Patient's daughter tested positive for COVID and patient's who is primary caregiver was just admitted today to the hospital for COVID-19. The patient also notes the following associated symptoms, fatigue. The patient has found no relieving factors. Current pain is rated as 0/10. Family states patient has a history of dementia. He has had issues with urinary infections due to self-catheterization and now has a chronic indwelling Michel. EMS was summoned the patient was brought to the ER for further evaluation. Pt denies headache, fevers, chills, neck pain, chest pain, breathing difficulties, nausea, vomiting, abdominal pain, back pain, diarrhea, numbness, or other complaints. ROS: See above HPI for pertinent positives & negatives. Limited secondary to dementia PAST MEDICAL HISTORY:See Below , dementia, UTI, anemia PAST SURGICAL HISTORY:See Below, FAMILY HISTORY:See Below SOCIAL HISTORY:See Below, HOME MEDICATIONS:See Below ALLERGIES:See Below VITALS:See Below PHYSICAL EXAMINATION: GENERAL: Awake, alert, mildly ill-appearing, in no distress HENT: Normocephalic, atraumatic. Oropharynx unremarkable. EYES: Mildly erythematous conjunctiva. Sclera non-icteric. PERRLA. EOMI NECK: Inspection normal. Non-tender. Supple. No nuchal rigidity. FROM. No masses. RESPIRATORY: Moderate cough present. Diminished breath sounds bilaterally.. No wheezes. No rales. Normal respiratory effort. CARDIAC: Normal rate. Normal rhythm. No murmurs. No rubs. Extremities warm and well perfused. Pulses equal. No JVD. GI: Soft, non-distended. No tenderness to palpation. No rebound or guarding. No masses. RECTAL: Deferred. MUSCULOSKELETAL: Atraumatic. Chest examination reveals no tenderness. The back is symmetrical on inspection without obvious abnormality. There is no CVA tenderness to palpation. No joint edema. LOWER EXTREMITIES: Calves are equal size bilaterally and non-tender. Trace deidre ma. No discoloration. NEURO: Demented sensorium. Generally weak but no focal sensory or motor defi cits noted. SKIN: No rash or jaundice noted. Alfredo Alcaraz MD Past Med/Surg History Medical History (Updated 09/19/21 @ 20:40 by Alfredo Alcaraz MD) Anxiety and depression Aortic stenosis Moderate per 07/12/21 ECHO- (AV max velocity 3.25m/s; AV mean gradient 29mmHg; UZMA, VTI 1.59cm2; UZMA, Vmax 1.55cm2) CAD (coronary artery disease) Multiple cardiac stents (x4 total)- most recent 3+ years ago 1997- LCx- stent Most recent cath 2013 per cardio records "LAD okay, LCX OM 30, RCA ok, NL EF" Chronic diastolic heart failure Stable per 04/2021 cardio note No diuretics needed at this time Chronic pain COPD (chronic obstructive pulmonary disease) Dementia 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 On donepezil and memantine, follows with neurology Dyslipidemia History of kidney stones History of AR (myocardial infarction) 1997- Follows with Dr. Hodge/Kassidy History of recent hospitalization Admitted to [facility] 07/10/21-07/14/21- for staph bacteremia secondary to infected wound at suprapubic catheter site, UTI, acute metabolic encephalopathy; per 08/09/21 neuro note- bacteremia resolved with abxs, acute metabolic encephalopathy resolved, mental status back to baseline, UTI/GIOVANY resolved after abx. 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 SSS Initially implanted in 2008- generator change in 2016 Paroxysmal atrial fibrillation NO HX CARDIOVERSION On Eliquis Secondary hyperparathyroidism of renal origin Sleep apnea NO DEVICE USED UNABLE TO TOLERATE CPAP Stage 3b chronic kidney disease Suprapubic catheter In place secondary to neurogenic bladder Surgical History H/O total knee replacement R/L History of back surgery MULTIPLE History of cardiac cath Multiple cardiac stents (x4 total)- most recent 3+ years ago History of carpal tunnel release of both wrists History of cataract surgery B/L History of colonoscopy History of lithotripsy History of lumbar fusion History of prostate surgery Partial prostatectomy History of thyroidectomy secondary to goiter History of tooth extraction All teeth S/P cystoscopy with ureteral stent placement last 05/2021 @ [facility] Dr. William Medrano- Cystoscopy, Bilateral retrograde pyelogram, Bilateral ureteral stent exchange, Left aspiration and culture S/P TURP S/P ureteral stent placement Cysto, B/L RPG, right ureteroscopy, stent exchange: 07/06/18: LMA#5 at [facility] Cysto stent exchange (11/2018) Cystoscopy, stent exchange, suprapubic catheter (04/30/20): MAC at [facility] Family History Father Diabetes Mother Coronary heart disease Hypertension Brother Seizure Other No family history of adverse response to anesthesia Denies family history of Ovarian cancer Prostate cancer Myocardial infarction Breast cancer Colorectal cancer Social History Smoking Status: Former smoker Tobacco Type: Cigarettes Age Started Using Tobacco: 15; Age Quit Using Tobacco: 59; packs per day: 2; Second Hand Exposure: No; Hx Alcohol Use: No (HX MANY YRS AGO) Hx Substance Use: No Preferred Language: Namibian Communication Ability: Effective Visual Impairment: No Limitations Hearing Ability: Hard of Hearing Beverage Steward Required: No Beliefs That Will Affect Care: None marital status: Current Living Situation: Spouse and Family Current Living Situation Comment: AND 2 DAUGHTERS current occupational status: retired How many Children do You have: 3 Feels Safe at Home: Yes Childhood Exposure to Second-Hand Smoke: No caffeine: Yes (Coffee 3 per day.) during the past year weight has: remained stable Dental Care, Regularly: No Physical Activity Frequency: Does not Exercise Seatbelt Use: always Sunscreen Use: No Assistive Devices: Walker and Other Allergies Allergies Allergy/AdvReac Type Severity Reaction Status Date / Time captopril Allergy Severe Anaphylaxis Verified 09/19/21 18:03 Iodinated Contrast Media Allergy Severe Anaphylaxis Verified 09/19/21 18:03 morphine Allergy Severe Anaphylaxis Verified 09/19/21 18:03 oxaprozin Allergy Severe Anaphylaxis Verified 09/19/21 18:03 torsemide Allergy Severe Anaphylaxis Verified 09/19/21 18:03 hydrocodone Allergy Mild Rash Verified 09/19/21 18:03 Home Meds Home Medications Medication Instructions Recorded Confirmed cyanocobalamin (vitamin B-12) 1,000 mcg PO QAM 07/16/20 09/19/21 1,000 mcg tablet ferrous sulfate 325 mg (65 mg 325 mg PO QAM 07/16/20 09/19/21 iron) tablet,delayed release polyethylene glycol 3350 17 gram 17 g PO BID PRN Constipation 07/16/20 09/19/21 oral powder packet (Miralax) ascorbic acid (vitamin C) 500 mg 500 mg PO QAM 10/22/20 09/19/21 tablet (Vitamin C) docusate sodium 100 mg capsule 100 mg PO BID 10/22/20 09/19/21 (Stool Softener) vitamin E 268 mg (400 unit) capsule 400 unit PO QAM 10/22/20 09/19/21 calcium carb-ergocalciferol (vit 1 tab PO DAILY 05/22/21 09/19/21 D2) 600 mg calcium-200 unit tablet nystatin 100,000 unit/gram topical 1 applic topical UD PRN Skin 05/22/21 09/19/21 cream Irritation Previous Rx's Medication Instructions Recorded acetaminophen 325 mg tablet 650 mg PO Q4H PRN pain #30 tabs 08/14/19 folic acid 1 mg tablet 1 mg PO QAM #90 tabs 10/04/19 albuterol sulfate 90 mcg/actuation 2 puff inhalation Q6H PRN 07/09/20 aerosol inhaler (Ventolin HFA) cough/wheeze/shortness of breath #1 inhaler Oxygen Home #1 ea 01/16/21 donepezil 10 mg tablet 10 mg PO HS #90 tabs 02/12/21 carvedilol 3.125 mg tablet 3.125 mg PO BID #180 tabs 03/27/21 albuterol sulfate 2.5 mg/3 mL 2.5 mg (3 mL) inhalation QID PRN 04/16/21 (0.083 %) solution for nebulization shortness of breath or wheezing #75 mL isosorbide mononitrate 30 mg 30 mg PO QAM #90 tabs 05/22/21 tablet,extended release 24 hr gabapentin 300 mg capsule 300 mg PO HS #90 caps 06/14/21 ipratropium 0.5 mg-albuterol 3 mg 3 ml inhalation Q6H PRN wheezing 06/20/21 (2.5 mg base)/3 mL nebulization #90 mL soln levothyroxine 112 mcg tablet 112 mcg PO HS #90 tabs 07/03/21 (Synthroid) bethanechol chloride 50 mg tablet 50 mg PO QID #360 tabs 07/09/21 famotidine 40 mg tablet (Pepcid) 40 mg PO QAM #90 tabs 07/09/21 simvastatin 80 mg tablet 80 mg PO HS #90 tabs 07/09/21 doxycycline monohydrate 100 mg 100 mg PO BID 7 days #14 caps 07/16/21 capsule bupropion HCl 100 mg tablet,12 hr 100 mg PO BID #60 ea 08/09/21 sustained-release apixaban 2.5 mg tablet (Eliquis) 2.5 mg PO BID #180 tabs 08/13/21 cephalexin 500 mg capsule 500 mg PO BID 10 days #20 caps 08/14/21 tamsulosin 0.4 mg capsule 0.4 mg PO HS #30 caps 08/14/21 armodafinil 200 mg tablet 100 mg PO QAM #30 tabs 08/19/21 phenazopyridine 200 mg tablet 200 mg PO Q8H PRN pain #10 tabs 08/22/21 (Pyridium) tamsulosin 0.4 mg capsule 0.4 mg PO HS #30 caps 08/22/21 tramadol 50 mg tablet 50 mg PO TID PRN Pain #30 tabs 09/03/21 memantine 10 mg tablet (Namenda) 10 mg PO BID #180 tabs 09/09/21 Results & Data (ED) Vital Signs Vital Signs - 24 hr 09/19/21 16:14 09/19/21 16:42 09/19/21 16:23 Temperature 37.1 C Temperature Source Oral Pulse Rate 87 81 Pulse Rate from SpO2 Sensor 81 Pulse Rhythm Regular Pulse Strength Normal Respiratory Rate 19 17 Respiratory Effort / Characteristics Non-Labored Spontaneous Respiratory Depth Normal Respiratory Pattern Regular Blood Pressure 176/101 H Blood Pressure Mean 126 Blood Pressure Position Sitting Pulse Oximetry 96 98 94 Oxygen Delivery Method Room Air Room Air Oxygen Flow Rate 0 Sepsis Recent Fever Within 48 Hours No Sepsis New/Unexplained Change in Mental Status Yes Sepsis Action Taken by Nursing No Action Required 09/19/21 16:30 09/19/21 16:30 09/19/21 16:40 Temperature Temperature Source Pulse Rate 82 79 Pulse Rate from SpO2 Sensor 85 79 Pulse Rhythm Pulse Strength Respiratory Rate 19 16 Respiratory Effort / Characteristics Respiratory Depth Respiratory Pattern Blood Pressure 179/108 H Blood Pressure Mean 131 Blood Pressure Position Pulse Oximetry 90 97 Oxygen Delivery Method Oxygen Flow Rate Sepsis Recent Fever Within 48 Hours Sepsis New/Unexplained Change in Mental Status Sepsis Action Taken by Nursing 09/19/21 16:50 09/19/21 17:00 09/19/21 17:00 Temperature Temperature Source Pulse Rate 80 74 Pulse Rate from SpO2 Sensor 82 76 Pulse Rhythm Pulse Strength Respiratory Rate 18 19 Respiratory Effort / Characteristics Respiratory Depth Respiratory Pattern Blood Pressure 166/78 H Blood Pressure Mean 107 Blood Pressure Position Pulse Oximetry 97 85 L Oxygen Delivery Method Oxygen Flow Rate Sepsis Recent Fever Within 48 Hours Sepsis New/Unexplained Change in Mental Status Sepsis Action Taken by Nursing 09/19/21 17:10 09/19/21 17:20 08/11/22 17:30 Temperature Temperature Source Pulse Rate 72 77 Pulse Rate from SpO2 Sensor 71 76 Pulse Rhythm Pulse Strength Respiratory Rate 12 13 Respiratory Effort / Characteristics Respiratory Depth Respiratory Pattern Blood Pressure 175/94 H Blood Pressure Mean 121 Blood Pressure Position Pulse Oximetry 98 94 Oxygen Delivery Method Oxygen Flow Rate Sepsis Recent Fever Within 48 Hours Sepsis New/Unexplained Change in Mental Status Sepsis Action Taken by Nursing 09/19/21 17:30 09/19/21 17:40 09/19/21 17:50 Temperature Temperature Source Pulse Rate 83 84 74 Pulse Rate from SpO2 Sensor 83 84 74 Pulse Rhythm Pulse Strength Respiratory Rate 20 21 19 Respiratory Effort / Characteristics Respiratory Depth Respiratory Pattern Blood Pressure Blood Pressure Mean Blood Pressure Position Pulse Oximetry 95 94 94 Oxygen Delivery Method Oxygen Flow Rate Sepsis Recent Fever Within 48 Hours Sepsis New/Unexplained Change in Mental Status Sepsis Action Taken by Nursing Laboratory Data Result diagrams: 09/19/21 17:05 09/19/21 17:05 Lab Results 09/19/21 09/19/21 09/19/21 Range/Units 17:05 17:05 17:05 WBC 7.37 (4.8-10.8) K/ul RBC 4.50 L (4.63-6.08) M/uL Hgb 13.8 L (14.0-18.0) g/dl Hct 41.7 (40.1-51.0) % MCV 92.7 (80.0-100.0) fL MCH 30.7 (25.0-34.0) pg MCHC 33.1 (32.0-36.0) g/dL RDW Std Deviation 48.8 H (36.4-46.3) fL RDW Coeff of Curtis 14.3 (11.5-14.5) % Plt Count 152 (130-400) K/uL MPV 11.6 (9.4-12.4) fL Immature Gran % (Auto) 0.3 % Neut % (Auto) 54.0 % Lymph % (Auto) 24.6 % Moody % (Auto) 20.1 % Eos % (Auto) 0.5 % Baso % (Auto) 0.5 % Neut # (Auto) 3.98 (1.4-6.5) K/uL Lymph # (Auto) 1.81 (1.2-3.4) K/uL Moody # (Auto) 1.48 H (0.24-0.82) K/uL Eos # (Auto) 0.04 (0-0.50) K/uL Baso # (Auto) 0.04 (0-0.2) K/uL Immature Gran # (Auto) 0.02 (0.00-0.02) K/uL Platelet Estimate Normal (Normal) Sodium 136 (136-145) mmol/L Potassium TNP Chloride 100 (98-107) mmol/L Carbon Dioxide 25 (21-32) mmol/L Anion Gap 11 (3-11) BUN 17 (6-23) mg/dl Creatinine 2.00 H (0.6-1.4) mg/dl Est Cr Clr Drug Dosing Not Reportable Est GFR ( Amer) 35.0 ml/min Est GFR (Non-Af Amer) 30.2 ml/min BUN/Creatinine Ratio 8.5 L (10-20) Glucose 87 (70-99(Fasting)) mg/dl Calcium 8.9 (8.5-10.1) mg/dl Magnesium 2.2 (1.7-2.4) mg/dl Total Bilirubin 0.4 (0.2-1.0) mg/dl AST TNP ALT 17 (7-52) U/L Alkaline Phosphatase 116 H (34-104) U/L Total Creatine Kinase 59 (30-223) U/L Troponin I High Sens 55.0 H* (0-20) pg/ml Total Protein 7.9 (6.0-8.3) gm/dl Albumin 4.0 (3.4-5.0) gm/dl Globulin 3.9 (2.5-4.0) gm/dl Albumin/Globulin Ratio 1.0 (0.9-2) TSH 2.255 (0.300-4.500) uIu/ml Urine Color Urine Appearance (Clear) Urine pH (4.5-7.5) Ur Specific [place] (1.000-1.030) Urine Protein (Negative) Urine Glucose (UA) (Negative) Urine Ketones (Negative) Urine Blood (Negative) Urine Nitrite (Negative) Urine Bilirubin (Negative) Urine Urobilinogen (Negative) Ur Leukocyte Esterase (Negative) Urine WBC (Auto) (0-5) /hpf Urine RBC (Auto) (0-4) /hpf U Hyaline Cast (Auto) (0-5) /lpf U Epithel Cells (Auto) (0-5) /lpf Urine Bacteria (Auto) (Negative) Ur Renal Epithelial Cell Urine Yeast (None Prsent) SARS-CoV-2, RNA, NAAT (NEGATIVE) 09/19/21 09/19/21 Range/Units 17:23 17:23 WBC (4.8-10.8) K/ul RBC (4.63-6.08) M/uL Hgb (14.0-18.0) g/dl Hct (40.1-51.0) % MCV (80.0-100.0) fL MCH (25.0-34.0) pg MCHC (32.0-36.0) g/dL RDW Std Deviation (36.4-46.3) fL RDW Coeff of Curtis (11.5-14.5) % Plt Count (130-400) K/uL MPV (9.4-12.4) fL Immature Gran % (Auto) % Neut % (Auto) % Lymph % (Auto) % Moody % (Auto) % Eos % (Auto) % Baso % (Auto) % Neut # (Auto) (1.4-6.5) K/uL Lymph # (Auto) (1.2-3.4) K/uL Moody # (Auto) (0.24-0.82) K/uL Eos # (Auto) (0-0.50) K/uL Baso # (Auto) (0-0.2) K/uL Immature Gran # (Auto) (0.00-0.02) K/uL Platelet Estimate (Normal) Sodium (136-145) mmol/L Potassium Chloride (98-107) mmol/L Carbon Dioxide (21-32) mmol/L Anion Gap (3-11) BUN (6-23) mg/dl Creatinine (0.6-1.4) mg/dl Est Cr Clr Drug Dosing Est GFR ( Amer) ml/min Est GFR (Non-Af Amer) ml/min BUN/Creatinine Ratio (10-20) Glucose (70-99(Fasting)) mg/dl Calcium (8.5-10.1) mg/dl Magnesium (1.7-2.4) mg/dl Total Bilirubin (0.2-1.0) mg/dl AST ALT (7-52) U/L Alkaline Phosphatase (34-104) U/L Total Creatine Kinase (30-223) U/L Troponin I High Sens (0-20) pg/ml Total Protein (6.0-8.3) gm/dl Albumin (3.4-5.0) gm/dl Globulin (2.5-4.0) gm/dl Albumin/Globulin Ratio (0.9-2) TSH (0.300-4.500) uIu/ml Urine Color Yellow Urine Appearance Turbid A (Clear) Urine pH 7.5 (4.5-7.5) Ur Specific [place] 1.012 (1.000-1.030) Urine Protein 2+ H (Negative) Urine Glucose (UA) Negative (Negative) Urine Ketones Trace H (Negative) Urine Blood 3+ H (Negative) Urine Nitrite Negative (Negative) Urine Bilirubin Negative (Negative) Urine Urobilinogen Negative (Negative) Ur Leukocyte Esterase 3+ H (Negative) Urine WBC (Auto) >30 H (0-5) /hpf Urine RBC (Auto) >30 H (0-4) /hpf U Hyaline Cast (Auto) 0 (0-5) /lpf U Epithel Cells (Auto) >30 H (0-5) /lpf Urine Bacteria (Auto) Negative (Negative) Ur Renal Epithelial Cell Not Reportable Urine Yeast Budding w/ Hyphae A (None Prsent) SARS-CoV-2, RNA, NAAT POSITIVE A* (NEGATIVE) Administered Medications Discontinued Medications Sodium Chloride (Nss 1000ml) 1,000 mls @ 125 mls/hr IV .Q8H FLEX Stop: 09/20/21 01:29 Last Admin: 09/19/21 17:59 Dose: 125 mls/hr Documented By: AM Cefepime HCl (Maxipime) 2,000 mg in 20 mls @ 5 mls/min IV NOW STA; Protocol Stop: 09/19/21 17:58 Last Admin: 09/19/21 18:15 Dose: 5 mls/min Documented By: AM Imaging Data Radiologist's Impression: Chest X-Ray 09/19/21 17:17 XR chest 1V portable CLINICAL HISTORY: weakness. Evaluate cardiopulmonary status COMPARISON STUDY: 07/08/2020 TECHNIQUE: 1 view of the chest FINDINGS: Single frontal view of the chest demonstrates the heart to be prominent in size related to the poor inspiratory effort. Permanent cardiac pacer is in place. There is a decreased inspiratory effort with elevation of the hemidiaphragms and crowding of the bronchovascular markings at the lung bases and centrally. No co nfluent alveolar opacities are identified. There is no evidence for pleural effusion. There is no evidence for vascular congestion. There is no acute osseous pathology. IMPRESSION: 1. There is a decreased inspiratory effort with otherwise no acute chest disease. ACT 112: Negative or not required by law. Electronically signed by: Brent Jameson M.D. 09/19/2021 5:51 PM Discharge Plan Visit Data Chief Complaint: Weakness ED Provider: Alfredo Alcaraz Discharge Problem: COVID-19, Weakness, Elevated troponin, Acute UTI (urinary tract infection) Forms Stand Alone Forms: [facility] Prescriptions Prescriptions: No Action folic acid 1 mg tablet 1 mg PO QAM Qty: 90 1RF (DME) Oxygen Home Liters Per Minute See Rx Instructions .Route Qty: 1 0RF Rx Instructions: 3 lpm nightly or while asleep. carvedilol 3.125 mg tablet 3.125 mg PO BID Qty: 180 1RF Rx Instructions: TAKE ONE TABLET BY MOUTH TWICE DAILY with meals albuterol sulfate 2.5 mg /3 mL (0.083 %) solution for nebulization 2.5 mg inhalation QID PRN (Reason: shortness of breath or wheezing) Qty: 75 5RF isosorbide mononitrate 30 mg tablet extended release 24 hr 30 mg PO QAM Qty: 90 1RF gabapentin 300 mg capsule 300 mg PO HS Qty: 90 3RF Rx Instructions: PER PT FROM [facility], PT IS ONLY TAKING THIS ONCE DAILY ipratropium-albuterol 0.5 mg-3 mg(2.5 mg base)/3 mL solution for nebulization 3 ml inhalation Q6H PRN (Reason: wheezing) Qty: 90 0RF levothyroxine [Synthroid] 112 mcg tablet 112 mcg PO HS Qty: 90 1RF bethanechol chloride 50 mg tablet 50 mg PO QID Qty: 360 1RF simvastatin 80 mg tablet 80 mg PO HS Qty: 90 1RF famotidine [Pepcid] 40 mg tablet 40 mg PO QAM Qty: 90 1RF doxycycline monohydrate 100 mg capsule 100 mg PO BID 7 Days Qty: 14 0RF Rx Instructions: confirmed on PH dc summary 07/16/21 Eliquis 2.5 mg tablet 2.5 mg PO BID Qty: 180 1RF tamsulosin 0.4 mg capsule 0.4 mg PO HS Qty: 30 0RF armodafinil 200 mg tablet 100 mg PO QAM Qty: 30 3RF Label Comments: states on 08/15 has not started taking med yet tramadol 50 mg tablet 50 mg PO TID PRN (Reason: Pain) Qty: 30 0RF Rx Instructions: PDMP: 06/03/21 memantine [Namenda] 10 mg tablet 10 mg PO BID Qty: 180 3RF donepezil 10 mg tablet 10 mg PO HS Qty: 90 3RF bupropion HCl 100 mg tablet sustained-release 12 hr 100 mg PO BID Qty: 60 5RF cephalexin 500 mg capsule 500 mg PO BID 10 Days Qty: 20 0RF Label Comments: states on 08/15/21 has not started med yet acetaminophen 325 mg Tablet 650 mg PO Q4H PRN (Reason: pain) Qty: 30 0RF Rx Instructions: OTC ferrous sulfate 325 mg (65 mg iron) tablet,delayed release (DR/EC) 325 mg PO QAM polyethylene glycol 3350 [Miralax] 17 gram powder in packet 17 g PO BID PRN (Reason: Constipation) cyanocobalamin (vitamin B-12) 1,000 mcg Tablet 1,000 mcg PO QAM ascorbic acid (vitamin C) [Vitamin C] 500 mg Tablet 500 mg PO QAM docusate sodium [Stool Softener] 100 mg Capsule 100 mg PO BID vitamin E 400 unit Capsule 400 unit PO QAM albuterol sulfate [Ventolin HFA] 90 mcg/actuation Hfa Aerosol Inhaler 2 puff inhalation Q6H PRN (Reason: cough/wheeze/shortness of breath) Qty: 1 0RF nystatin 100,000 unit/gram cream 1 applic topical UD PRN (Reason: Skin Irritation) calcium carbonate-vitamin D2 600 mg calcium- 200 unit Tablet 1 tab PO DAILY tamsulosin 0.4 mg capsule 0.4 mg PO HS Qty: 30 0RF phenazopyridine [Pyridium] 200 mg tablet 200 mg PO Q8H PRN (Reason: pain) Qty: 10 0RF Referrals Referrals: Celina Saunders DO [Primary Care Provider] -
[2021-09-19] MEDS ORDERED: CEFEPIME 2,000 MG/20 ML VIAL IV STA (17:55)
[2021-09-19 18:07] LABS: Basophils # (auto) 0.04 K/uL (0-0.2); Basophils % (auto) 0.5 %; Eosinophils # (auto) 0.04 K/uL (0-0.50); Eosinophils % (auto) 0.5 %; Immature Granulocytes # (auto) 0.02 K/uL (0.00-0.02); Immature Granulocytes % (auto) 0.3 %; Lymphocytes # (auto) 1.81 K/uL (1.2-3.4); Lymphocytes % (auto) 24.6 %; Monocytes # (auto) 1.48 K/uL (0.24-0.82); Monocytes % (auto) 20.1 %; Neutrophils # (auto) 3.98 K/uL (1.4-6.5); Platelet Estimate Normal (Normal)
--- NOTE | 2021-09-19 18:20 | History & Physical Report ---
Date of Service September 19, 2021 Assessment & Plan (1) COVID-19: Plan: 79-year-old male with acute weakness in the setting of COVID-19 pneumonia and increased oxygen requirement from baseline with hypoxia to mid 80s on admission. Also with UA infected appearing with yeast, high risk due to urinary tract manipulation Acute hypoxic respiratory failure 2/2 Covid pneumonia Patient reports 3 L oxygen requirement nightly as needed, was acutely with hypoxia to mid 80s with increased oxygen requirement of up to 6 L prior to admission CXR: Decreased inspiratory effort, NAF Covid positive: 09/19 First day of symptoms: ~7 days prior Vaccination status: Unvacc CRP: pending Continue dexamethasone x10-day course Remdesivir: Deferred due to renal function and duration of illness Baricitinib: Not indicated at this time Suprapubic tube, bilateral stents, chronic interval UTI with exchanges every 3 to 4 months No episodes of bleeding History of multiple MDR UTIs S/p retrograde pyelogram and stent exchange 08/22/2021 No leukocytosis Infected appearing with worsened weakness. Empirically covered with cefepime by ER, downgraded to Rocephin on admit. A. fib on Eliquis Rate controlled Continue Eliquis Suspected candiduria UA with budding hyphae/yeast Past UC with Monalisa albicans Patient is at increased risk for complications due to urologic manipulation Fluconazole, dose reduced by 50% for renal function CKD Creatinine baseline 1.882.0 Admitting creatinine 2.0 CAD, history of TN, troponin elevation High-sensitivity troponin 55.[address] segment changes or acute signs of ischemia Suspect demand mismatch in the setting of COVID, volume depletion, and possible UTI Last echo 07/12/2021. EF 55 to 60%, normal wall motion abnormality. Moderate aortic stenosis Iron deficiency anemia Continue ironhemoglobin 13.8, trend CHANELLE Intolerant to CPAP Titrate oxygen to 89% Hypothyroidism Continue Synthroid DVT prophylaxis: On Eliquis Diet: Heart healthy Disposition: Med/telemetry while pending troponins, then downgrade CODE STATUS: Full code, did contact family by phone no answer. Patient is not able to express medical decisions as duration of last, full code on prior record review (2) Weakness: (3) Recurrent UTI: (4) AICD (automatic cardioverter/defibrillator) present: (5) Anemia: (6) CAD (coronary artery disease): (7) History of kidney stones: (8) Paroxysmal atrial fibrillation: (9) Sleep apnea: (10) Iron deficiency anemia: (11) History of TN (myocardial infarction): (12) Dementia: History of Present Illness Primary Care Provider: Celina Saunders DO Alfredo Momin is an 81-year-old male with a past medical history of timers dementia, recurrent catheter associated UTI, paroxysmal A. fib, CAD with TN, CKD, iron deficiency anemia, and anxiety/depression who presents with worsened weakness and who is COVID-positive. His who is his primary caregiver is also admitted for COVID. Hypoxic to the mid 80s requiring supplemental oxygen initially in the ER per ER report. +weak x1 week. Patient with Alzheimer's dementia and is a poor historian Uses oxygen at home. Uses oxygen at night and 3 L as needed, reports has been using all day for the last week not sure how much no sharp pain in bladder/abdomen. + Feeling of increased urgency/frequency even with Michel in place Denies chest pain, chest pressure, lightheadedness, dizziness Denies nausea, vomiting, diarrhea, constipation. Reports he does not feel very hungry Medical History: Reviewed Medications: Reviewed Surgical History: Reviewed Allergies: Reviewed Social History: Denies tobacco/alcohol Code Status: Is poor historian and not express understanding of his medical conditions as they apply to him. Previously full. Attempting to verify with family, not available by phone at time of admission Allergies Allergy/AdvReac Type Severity Reaction Status Date / Time captopril Allergy Severe Anaphylaxis Verified 09/19/21 18:03 Iodinated Contrast Media Allergy Severe Anaphylaxis Verified 09/19/21 18:03 morphine Allergy Severe Anaphylaxis Verified 09/19/21 18:03 oxaprozin Allergy Severe Anaphylaxis Verified 09/19/21 18:03 torsemide Allergy Severe Anaphylaxis Verified 09/19/21 18:03 hydrocodone Allergy Mild Rash Verified 09/19/21 18:03 Home Medications Medication Instructions Recorded Confirmed Type acetaminophen 325 mg tablet 650 mg PO Q4H PRN pain #30 tabs 08/14/19 09/19/21 Rx folic acid 1 mg tablet 1 mg PO QAM #90 tabs 10/04/19 09/19/21 Rx albuterol sulfate 90 mcg/actuation 2 puff inhalation Q6H PRN 07/09/20 09/19/21 Rx aerosol inhaler (Ventolin HFA) cough/wheeze/shortness of breath #1 inhaler cyanocobalamin (vitamin B-12) 1,000 mcg PO QAM 07/16/20 09/19/21 History 1,000 mcg tablet ferrous sulfate 325 mg (65 mg 325 mg PO QAM 07/16/20 09/19/21 History iron) tablet,delayed release polyethylene glycol 3350 17 gram 17 g PO BID PRN Constipation 07/16/20 09/19/21 History oral powder packet (Miralax) ascorbic acid (vitamin C) 500 mg 500 mg PO QAM 10/22/20 09/19/21 History tablet (Vitamin C) docusate sodium 100 mg capsule 100 mg PO BID 10/22/20 09/19/21 History (Stool Softener) vitamin E 268 mg (400 unit) capsule 400 unit PO QAM 10/22/20 09/19/21 History Oxygen Home #1 ea 01/16/21 09/19/21 Rx donepezil 10 mg tablet 10 mg PO HS #90 tabs 02/12/21 09/19/21 Rx carvedilol 3.125 mg tablet 3.125 mg PO BID #180 tabs 03/27/21 09/19/21 Rx albuterol sulfate 2.5 mg/3 mL 2.5 mg (3 mL) inhalation QID PRN 04/16/21 09/19/21 Rx (0.083 %) solution for nebulization shortness of breath or wheezing #75 mL calcium carb-ergocalciferol (vit 1 tab PO DAILY 05/22/21 09/19/21 History D2) 600 mg calcium-200 unit tablet isosorbide mononitrate 30 mg 30 mg PO QAM #90 tabs 05/22/21 09/19/21 Rx tablet,extended release 24 hr nystatin 100,000 unit/gram topical 1 applic topical UD PRN Skin 05/22/21 09/19/21 History cream Irritation gabapentin 300 mg capsule 300 mg PO HS #90 caps 06/14/21 09/19/21 Rx ipratropium 0.5 mg-albuterol 3 mg 3 ml inhalation Q6H PRN wheezing 06/20/21 09/19/21 Rx (2.5 mg base)/3 mL nebulization #90 mL soln levothyroxine 112 mcg tablet 112 mcg PO HS #90 tabs 07/03/21 09/19/21 Rx (Synthroid) bethanechol chloride 50 mg tablet 50 mg PO QID #360 tabs 07/09/21 09/19/21 Rx famotidine 40 mg tablet (Pepcid) 40 mg PO QAM #90 tabs 07/09/21 09/19/21 Rx simvastatin 80 mg tablet 80 mg PO HS #90 tabs 07/09/21 09/19/21 Rx doxycycline monohydrate 100 mg 100 mg PO BID 7 days #14 caps 07/16/21 09/19/21 Rx capsule bupropion HCl 100 mg tablet,12 hr 100 mg PO BID #60 ea 08/09/21 09/19/21 Rx sustained-release apixaban 2.5 mg tablet (Eliquis) 2.5 mg PO BID #180 tabs 08/13/21 09/19/21 Rx cephalexin 500 mg capsule 500 mg PO BID 10 days #20 caps 08/14/21 09/19/21 Rx tamsulosin 0.4 mg capsule 0.4 mg PO HS #30 caps 08/14/21 09/19/21 Rx armodafinil 200 mg tablet 100 mg PO QAM #30 tabs 08/19/21 09/19/21 Rx phenazopyridine 200 mg tablet 200 mg PO Q8H PRN pain #10 tabs 08/22/21 09/19/21 Rx (Pyridium) tamsulosin 0.4 mg capsule 0.4 mg PO HS #30 caps 08/22/21 09/19/21 Rx tramadol 50 mg tablet 50 mg PO TID PRN Pain #30 tabs 09/03/21 09/19/21 Rx memantine 10 mg tablet (Namenda) 10 mg PO BID #180 tabs 09/09/21 09/19/21 Rx Past Med/Surg History Medical History (Updated 09/19/21 @ 17:53 by Alfredo Alcaraz MD) Anxiety and depression Aortic stenosis Moderate per 07/12/21 ECHO- (AV max velocity 3.25m/s; AV mean gradient 29mmHg; UZMA, VTI 1.59cm2; UZMA, Vmax 1.55cm2) CAD (coronary artery disease) Multiple cardiac stents (x4 total)- most recent 3+ years ago 1997- LCx- stent Most recent cath 2013 per cardio records "LAD okay, LCX OM 30, RCA ok, NL EF" Chronic diastolic heart failure Stable per 04/2021 cardio note No diuretics needed at this time Chronic pain COPD (chronic obstructive pulmonary disease) Dementia 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 On donepezil and memantine, follows with neurology Dyslipidemia History of kidney stones History of TN (myocardial infarction) 1997- Follows with Dr. Hodge/Kassidy History of recent hospitalization Admitted to [facility] 07/10/21-07/14/21- for staph bacteremia secondary to infected wound at suprapubic catheter site, UTI, acute metabolic encephalopathy; per 08/09/21 neuro note- bacteremia resolved with abxs, acute metabolic encephalopathy resolved, mental status back to baseline, UTI/GIOVANY resolved after abx. 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 SSS Initially implanted in 2008- generator change in 2016 Paroxysmal atrial fibrillation NO HX CARDIOVERSION On Eliquis Secondary hyperparathyroidism of renal origin Sleep apnea NO DEVICE USED UNABLE TO TOLERATE CPAP Stage 3b chronic kidney disease Suprapubic catheter In place secondary to neurogenic bladder Surgical History H/O total knee replacement R/L History of back surgery MULTIPLE History of cardiac cath Multiple cardiac stents (x4 total)- most recent 3+ years ago History of carpal tunnel release of both wrists History of cataract surgery B/L History of colonoscopy History of lithotripsy History of lumbar fusion History of prostate surgery Partial prostatectomy History of thyroidectomy secondary to goiter History of tooth extraction All teeth S/P cystoscopy with ureteral stent placement last 05/2021 @ [facility] Dr. William Medrano- Cystoscopy, Bilateral retrograde pyelogram, Bilateral ureteral stent exchange, Left aspiration and culture S/P TURP S/P ureteral stent placement Cysto, B/L RPG, right ureteroscopy, stent exchange: 07/06/18: LMA#5 at [facility] Cysto stent exchange (11/2018) Cystoscopy, stent exchange, suprapubic catheter (04/30/20): MAC at [facility] Family History Father Diabetes Mother Coronary heart disease Hypertension Brother Seizure Other No family history of adverse response to anesthesia Denies family history of Ovarian cancer Prostate cancer Myocardial infarction Breast cancer Colorectal cancer Social History Smoking Status: Former smoker Tobacco Type: Cigarettes Age Started Using Tobacco: 15; Age Quit Using Tobacco: 59; packs per day: 2; Second Hand Exposure: No; Hx Alcohol Use: No (HX MANY YRS AGO) Hx Substance Use: No Preferred Language: Malay Communication Ability: Effective Visual Impairment: No Limitations Hearing Ability: Hard of Hearing 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: No Beliefs That Will Affect Care: None marital status: Current Living Situation: Spouse and Family Current Living Situation Comment: AND 2 DAUGHTERS current occupational status: retired How many Children do You have: 3 Feels Safe at Home: Yes Childhood Exposure to Second-Hand Smoke: No caffeine: Yes (Coffee 3 per day.) during the past year weight has: remained stable Dental Care, Regularly: No Physical Activity Frequency: Does not Exercise Seatbelt Use: always Sunscreen Use: No Assistive Devices: Walker and Other Review of Systems Review of Systems: All systems reviewed & are unremarkable except as noted in Subjective (Limited by cognitive status) Physical Exam Physical Exam: General: Oriented to name only. Pleasant, no acute distress. On nasal cannula. HEENT: Atraumatic, normocephalic. Vision and hearing grossly intact Pulm: CTAB A&P. -wheezes, -rales, -rhonchi. Symmetrical chest rise. No increase in work of breathing. No respiratory distress. Cardiac: RRR, -mrg. Radial pulses intact and symmetrical. Abdominal: Nontender, nondistended, soft. BS present. Extremities: Warm, dry. Patient checked her hands and feet bilaterally. Results & Data Results & Data ([facility]) Vital Signs (Past 12 Hours) Vital Signs Temp Pulse Resp BP Pulse Ox O2 Del Method O2 Flow Rate 09/19/21 17:50 74 19 94 09/19/21 17:40 84 21 94 09/19/21 17:30 83 20 95 09/19/21 17:30 175/94 H 09/19/21 17:20 77 13 94 09/19/21 17:10 72 12 98 09/19/21 17:00 74 19 85 L 09/19/21 17:00 166/78 H 09/19/21 16:50 80 18 97 09/19/21 16:40 79 16 97 09/19/21 16:30 82 19 90 09/19/21 16:30 179/108 H 09/19/21 16:23 81 17 94 09/19/21 16:42 98 Room Air 0 09/19/21 16:14 37.1 C 87 19 176/101 H 96 Room Air PG Care Time/CCT Total # of Minutes Spent Total Time Spent with Patient: Total time spent is greater than 50% in coordination of care (as documented) at patient's floor/unit and/or counseling patient: Coding Level of Care Code 12483 Initial Inpt Care Lvl 2 Diagnoses COVID-19 U07.1 Weakness R53.1 Recurrent UTI N39.0 AICD (automatic cardioverter/defibrillator) present Z95.810 Anemia D64.9 CAD (coronary artery disease) I25.10 History of kidney stones Z87.442 Paroxysmal atrial fibrillation I48.0 Sleep apnea G47.30 Iron deficiency anemia D50.9 History of TN (myocardial infarction) I25.2 Dementia F03.90
[2021-09-19] MEDS ORDERED: LACTATED RINGER'S 1,000 ML IV SCH (18:45)
[2021-09-19] MEDS ORDERED: hydrALAZINE HCL 20 MG/ML VIAL IV PRN (19:00)
[2021-09-19] MEDS ORDERED: hydrALAZINE HCL 20 MG/ML VIAL IV SCH (19:00)
[2021-09-19] MEDS ORDERED: POLYETHYLENE (MIRALAX) 17 GM PACK PO PRN (20:45)
[2021-09-19] MEDS ORDERED: ALBUT/IPRATROP 3MG/0.5MG NEB 3 ML VIAL INH PRN (20:45)
[2021-09-19] MEDS ORDERED: traMADol HCL 50 MG TABLET PO PRN (20:45)
[2021-09-19] MEDS ORDERED: ACETAMINOPHEN 325 MG TAB PO PRN ×2 (20:45)
[2021-09-19] MEDS ORDERED: FLUCONAZOLE 100 MG TAB PO SCH (21:00)
[2021-09-19] MEDS ORDERED: DEXAMETHASONE SOD INJ 4 MG/ML VIAL ONE (21:25)
[2021-09-19] MEDS: MEMANTINE HCL 10 MG TAB PO SCH (23:20)
[2021-09-19] MEDS: GABAPENTIN 300 MG CAP PO SCH (23:20)
[2021-09-19] MEDS: dexAMETHasone 6 MG in SYRINGE 0 ML IV SCH (23:20)
[2021-09-19] MEDS: SIMVASTATIN 80 MG TAB PO SCH (23:20)
[2021-09-19] MEDS: buPROPion SR 100 MG TABCR PO SCH (23:21)
[2021-09-19] MEDS: DONEPEZIL HCL 10 MG TAB PO SCH (23:21)
[2021-09-19] MEDS: LEVOTHYROXINE SODIUM 112 MCG TABLET PO SCH (23:21)
[2021-09-19] MEDS: APIXABAN 2.5 MG TAB PO SCH (23:21)
[2021-09-19] MEDS: TAMSULOSIN HCL 0.4 MG CAP PO SCH (23:21)
[2021-09-19] MEDS: carvediloL 3.125 MG TAB PO SCH (23:21)
[2021-09-19 23:26] LABS: C Reactive Protein 2.77 mg/dl (0-0.5)
[2021-09-19] MEDS: Patient's HEIGHT &/or WEIGHT Needed SCH (23:33)
[2021-09-19 23:34] LABS: Troponin I High Sensitivity 71.1 pg/ml (0-20)
[2021-09-20] MEDS ORDERED: cefTRIAXone SODIUM 2,000 MG in DEXTROSE 5% 50 ML IV SCH (02:00)
[2021-09-20 02:55] LABS: Basophils # (auto) 0.03 K/uL (0-0.2); Basophils % (auto) 0.5 %; Eosinophils # (auto) 0.01 K/uL (0-0.50); Eosinophils % (auto) 0.2 %; Hematocrit (blood only) 37.2 % (40.1-51.0); Immature Granulocytes # (auto) 0.03 K/uL (0.00-0.02); Immature Granulocytes % (auto) 0.5 %; Lymphocytes # (auto) 0.92 K/uL (1.2-3.4); Lymphocytes % (auto) 14.4 %; Mean Corpuscular Hemoglobin 30.5 pg (25.0-34.0); Mean Corpuscular Hgb Conc 32.3 g/dL (32.0-36.0); Mean Corpuscular Volume 94.7 fL (80.0-100.0); Mean Platelet Volume 10.5 fL (9.4-12.4); Monocytes # (auto) 0.45 K/uL (0.24-0.82); Neutrophils # (auto) 4.97 K/uL (1.4-6.5); Neutrophils % (auto) 77.4 %; Platelet Count 143 K/uL (130-400); RDW Coefficient of Variation 14.2 % (11.5-14.5); RDW Standard Deviation 49.5 fL (36.4-46.3); Red Blood Count 3.93 M/uL (4.63-6.08); White Blood Count 6.41 K/ul (4.8-10.8)
[2021-09-20] MEDS: Patient's HEIGHT &/or WEIGHT Needed SCH (03:03)
[2021-09-20 03:19] LABS: BUN Creatinine Ratio 10.9 (10-20); C Reactive Protein 2.67 mg/dl (0-0.5); Calcium 8.2 mg/dl (8.5-10.1); Creatinine Clr Calc Pharmacy 34.4 ml/min; Est GFR (African American) 41.1 ml/min; Est GFR (Non-African American) 35.5 ml/min
[2021-09-20] MEDS: dexAMETHasone 6 MG in SYRINGE 0 ML IV SCH (08:44)
[2021-09-20] MEDS: APIXABAN 2.5 MG TAB PO SCH ×2 (08:47→21:36)
[2021-09-20] MEDS: buPROPion SR 100 MG TABCR PO SCH ×2 (08:47→21:37)
[2021-09-20] MEDS: carvediloL 3.125 MG TAB PO SCH ×2 (08:47→21:37)
[2021-09-20] MEDS: FAMOTIDINE 20 MG TAB PO SCH (08:47)
[2021-09-20] MEDS: MEMANTINE HCL 10 MG TAB PO SCH ×2 (08:47→21:38)
[2021-09-20] MEDS: ISOSORBIDE MONO EXTENDED REL 30 MG TABCR PO SCH (08:47)
[2021-09-20] MEDS: FOLIC ACID 1 MG TAB PO SCH (08:47)
[2021-09-20] MEDS ORDERED: hydrALAZINE HCL 20 MG/ML VIAL IV PRN (09:17)
--- NOTE | 2021-09-20 19:36 | Hospitalist Progress Note ---
Date of Service September 20, 2021 Assessment & Plan (1) COVID-19: Plan: 79-year-old male with acute weakness in the setting of COVID-19 pneumonia and increased oxygen requirement from baseline with hypoxia to mid 80s on admission. Acute hypoxic respiratory failure 2/2 Covid pneumonia Patient reports 3 L oxygen requirement nightly chronically, was acutely hypoxic to mid 80s with increased oxygen requirement of up to 6 L prior to admission--> now weaned to 1LNC at rest and POx 98% CXR: no PNA Covid positive: 09/19 First day of symptoms: ~7 days prior Vaccination status: Unvacc CRP: 2.67 Continue dexamethasone x10-day course-last day of tx will be 09/28 Remdesivir: Deferred due to renal function and duration of illness Baricitinib: Not indicated at this time Suprapubic tube, bilateral stents, chronic interval UTI with exchanges every 3 to 4 months No episodes of bleeding History of multiple MDR UTIs S/p retrograde pyelogram and stent exchange 08/22/2021 No leukocytosis do not suspect acute UTI but rather colonization--> dc all abx and antifungals Paroxysmal A. fib on Eliquis--> in NSR here Continue Eliquis, Coreg CKD stage 3-4 Creatinine baseline 1.882.0 Admitting creatinine 2.0 and now down to 1.75 -Avoid nephrotoxins -renally dose meds when appropriate -follow BMP CAD, history of IL, troponin elevation High-sensitivity troponin 55.0/71/79, secondary to myocardial demand ischemia from hypoxia and COVID-[address] segment changes or acute signs of ischemia Last echo 07/12/2021. EF 55 to 60%, normal wall motion abnormality. Moderate aortic stenosis Iron deficiency anemia Continue ironhemoglobin 13.8 on admission and now down slightly but received IVFs CHANELLE Intolerant to CPAP continue usual O2 hs Hypothyroidism Continue Synthroid TSH here is 2.25 DVT prophylaxis: On Eliquis Diet: Heart healthy Disposition: can downgrade to med/surg, likely dc to home tomorrow if can care fo rhim as she was also just discharged from hospital today for COVID (2) Weakness: (3) AICD (automatic cardioverter/defibrillator) present: (4) Anemia: (5) CAD (coronary artery disease): (6) History of kidney stones: (7) Paroxysmal atrial fibrillation: (8) Sleep apnea: (9) Iron deficiency anemia: (10) History of IL (myocardial infarction): (11) Dementia: Admission and Anticipated Discharge Date Admission Date: September 19, 2021 Subjective Pt feels well, denies cough, SOB, CP, abd pain. He fed himself his whole meal. RN reports he stood at bedside today with PT. Is weaned down to 1LNC. Tele with NSR rate 60s Review of Systems Review of Systems: All systems reviewed & are unremarkable except as noted in HPI & below Physical Exam Constitutional: WD/WN, vitals as above Eyes: + anicteric sclerae Neck: trachea midline, no thyromegaly Respiratory: normal respiratory effort; no cough Auscultation: + crackles (right base) and + wheezes (bilat); no rhonchi Cardiovascular: RRR, no murmur, no edema Chest (Breasts): Chest: normal inspection of chest Gastrointestinal (Abdomen): normal bowel sounds, soft, nontender, no hepatosplenomegaly Musculoskeletal: Extremities: extremities normal to inspection; no cyanosis and no clubbing Skin: no rashes, warm and dry Neurologic: moves all extremities and awake; no focal motor deficits Psychiatric: Orientation: alert, oriented to person and cooperative Lymphatic: no lymphedema Results & Data Results & Data ([facility]) Vital Signs (Past 12 Hours) Vital Signs Temp Pulse Pulse Resp BP Pulse Ox O2 Del Method 09/20/21 17:32 36.8 C 98 H 14 121/76 96 Nasal Cannula 09/20/21 14:30 76 09/20/21 12:36 97 09/20/21 10:00 158/64 H 09/20/21 08:30 36.6 C 69 20 191/108 H 97 Nasal Cannula O2 Flow Rate 09/20/21 17:32 1 09/20/21 14:30 09/20/21 12:36 09/20/21 10:00 09/20/21 08:30 1 Laboratory Results 09/20/21 02:35 09/20/21 02:35 PG Care Time/CCT Total # of Minutes Spent Total Time Spent with Patient: Total time spent is greater than 50% in coordination of care (as documented) at patient's floor/unit and/or counseling patient: Coding Level of Care Code 56728 Subseq Hosp Care Lvl 2 Diagnoses COVID-19 U07.1 Weakness R53.1 AICD (automatic cardioverter/defibrillator) present Z95.810 Anemia D64.9 CAD (coronary artery disease) I25.10 History of kidney stones Z87.442 Paroxysmal atrial fibrillation I48.0 Sleep apnea G47.30 Iron deficiency anemia D50.9 History of IL (myocardial infarction) I25.2 Dementia F03.90
[2021-09-20] MEDS: LEVOTHYROXINE SODIUM 112 MCG TABLET PO SCH (21:38)
[2021-09-20] MEDS: GABAPENTIN 300 MG CAP PO SCH (21:38)
[2021-09-20] MEDS: DONEPEZIL HCL 10 MG TAB PO SCH (21:38)
[2021-09-20] MEDS: SIMVASTATIN 80 MG TAB PO SCH (21:39)
[2021-09-20] MEDS: TAMSULOSIN HCL 0.4 MG CAP PO SCH (21:39)
[2021-09-20] MEDS: DOCUSATE SODIUM 100 MG CAP PO SCH (21:42)
--- NOTE | 2021-09-21 05:53 | Electrocardiogram Report ---
Test Reason : Blood Pressure : / mmHG Vent. Rate : 082 BPM Atrial Rate : 082 BPM P-R Int : 164 ms QRS Dur : 106 ms QT Int : 398 ms P-R-T Axes : 107 -42 086 degrees QTc Int : 464 ms Poor data quality, interpretation may be adversely affected Sinus rhythm with occasional Premature ventricular complexes Left axis deviation Inferior infarct , age undetermined Abnormal ECG When compared with ECG of 05-JUL-2020 16:07, Premature ventricular complexes are now Present Confirmed by Olegario Sandoval ([id number]) on 09/21/2021 5:53:34 AM Referred By: REFERRED SELF Confirmed By:Olegario Sandoval
[2021-09-21 07:31] LABS: BUN Creatinine Ratio 16.1 (10-20); Calcium 8.2 mg/dl (8.5-10.1); Creatinine Clr Calc Pharmacy 26.8 ml/min; Est GFR (African American) 30.5 ml/min; Est GFR (Non-African American) 26.3 ml/min; Potassium 3.8 mmol/L (3.5-5.1)
[2021-09-21] MEDS: FOLIC ACID 1 MG TAB PO SCH (08:34)
[2021-09-21] MEDS: MEMANTINE HCL 10 MG TAB PO SCH (08:34)
[2021-09-21] MEDS: buPROPion SR 100 MG TABCR PO SCH (08:34)
[2021-09-21] MEDS: carvediloL 3.125 MG TAB PO SCH (08:34)
[2021-09-21] MEDS: FAMOTIDINE 20 MG TAB PO SCH (08:34)
[2021-09-21] MEDS: APIXABAN 2.5 MG TAB PO SCH (08:34)
[2021-09-21] MEDS: dexAMETHasone 6 MG in SYRINGE 0 ML IV SCH (08:34)
[2021-09-21] MEDS: ISOSORBIDE MONO EXTENDED REL 30 MG TABCR PO SCH (08:34)
[2021-09-21] MEDS: DOCUSATE SODIUM 100 MG CAP PO SCH (08:34)
[2021-09-21] MEDS ORDERED: FERROUS SULFATE 325 MG TAB PO SCH (09:00)
[2021-09-21] MEDS ORDERED: CYANOCOBALAMIN (B-12) 500 MCG TABLET PO SCH (09:00)
--- NOTE | 2021-09-21 12:03 | Discharge Summary ---
Date of Service September 21, 2021 Admission HPI Per Admitting Provider Alfredo Momin is an 81-year-old male with a past medical history of timers dementia, recurrent catheter associated UTI, paroxysmal A. fib, CAD with TN, CKD, iron deficiency anemia, and anxiety/depression who presents with worsened weakness and who is COVID-positive. His who is his primary caregiver is also admitted for COVID. Hypoxic to the mid 80s requiring supplemental oxygen initially in the ER per ER report. +weak x1 week. Patient with Alzheimer's dementia and is a poor historian Uses oxygen at home. Uses oxygen at night and 3 L as needed, reports has been using all day for the last week not sure how much no sharp pain in bladder/abdomen. + Feeling of increased urgency/frequency even with Michel in place Denies chest pain, chest pressure, lightheadedness, dizziness Denies nausea, vomiting, diarrhea, constipation. Reports he does not feel very hungry Medical History: Reviewed Medications: Reviewed Surgical History: Reviewed Allergies: Reviewed Social History: Denies tobacco/alcohol Code Status: Is poor historian and not express understanding of his medical conditions as they apply to him. Previously full. Attempting to verify with family, not available by phone at time of admission Principal Diagnosis COVID-19, Acute respiratory failure with hypoxia Discharge Exam Constitutional WD/WN, vitals as above Eyes + anicteric sclerae Neck trachea midline, no thyromegaly Respiratory normal respiratory effort; no cough Auscultation: + crackles (right base-improved); no rhonchi and no wheezes Cardiovascular RRR, no murmur, no edema Chest (Breasts) Chest: normal inspection of chest Gastrointestinal (Abdomen) normal bowel sounds, soft, nontender, no hepatosplenomegaly Musculoskeletal Extremities: extremities normal to inspection; no cyanosis and no clubbing Skin no rashes, warm and dry Neurologic moves all extremities and awake; no focal motor deficits Psychiatric Orientation: alert, oriented to person and cooperative Lymphatic no lymphedema Discharge Data Allergies Allergy/AdvReac Type Severity Reaction Status Date / Time captopril Allergy Severe Anaphylaxis Verified 09/19/21 18:03 Iodinated Contrast Media Allergy Severe Anaphylaxis Verified 09/19/21 18:03 morphine Allergy Severe Anaphylaxis Verified 09/19/21 18:03 oxaprozin Allergy Severe Anaphylaxis Verified 09/19/21 18:03 torsemide Allergy Severe Anaphylaxis Verified 09/19/21 18:03 hydrocodone Allergy Mild Rash Verified 09/19/21 18:03 Consultations 09/19/21 18:06 ED Decision to Admit Stat Hospital Course (1) COVID-19: 79-year-old male with acute weakness in the setting of COVID-19 pneumonia and increased oxygen requirement from baseline with hypoxia to mid 80s on admission. Acute hypoxic respiratory failure 2/2 Covid pneumonia Patient reports 3 L oxygen requirement nightly chronically but insurance apparently has not approved this again so has been using his 's O2. - was acutely hypoxic to mid 80s with increased oxygen requirement of up to 6 L prior to admission--> now weaned to room air at rest and POx 98% Needs 2LNC qhs on overnight POx CXR: no PNA Covid positive: 09/19 First day of symptoms: ~7 days prior Vaccination status: Unvacc CRP: 2.67 Continue dexamethasone x10-day course-last day of tx will be 09/28 as an outpt Remdesivir: Deferred due to renal function and duration of illness Baricitinib: Not indicated at this time -Cannot have Paxlovid due to poor renal fxn also Suprapubic tube, bilateral stents, chronic interval UTI with exchanges every 3 to 4 months No episodes of bleeding History of multiple MDR UTIs S/p retrograde pyelogram and stent exchange 08/22/2021 No leukocytosis do not suspect acute UTI but rather colonization--> dcd all abx and antifungals Paroxysmal A. fib on Eliquis--> in NSR here Continue Eliquis, Coreg CKD stage 3-4 Creatinine baseline 1.882.0 Admitting creatinine 2.0 and now down to 1.75 which is below baseline. Student Support Services Director day of dc is 2.2 which is still around baseline -Avoid nephrotoxins -renally dose meds when appropriate -follow as an outpt-has a [facility] program that sounds like telemedicine through health insurance to monitor renal issues CAD, history of TN, troponin elevation High-sensitivity troponin 55.0/71/79, secondary to myocardial demand ischemia from hypoxia and COVID-[address] segment changes or acute signs of ischemia Last echo 07/12/2021. EF 55 to 60%, normal wall motion abnormality. Moderate aortic stenosis Iron deficiency anemia Continue ironhemoglobin 13.8 on admission and now down slightly but received IVFs initially CHANELLE Intolerant to CPAP repeat overnight POx here shows dessat<88% for > 5 min--> qualifies for home O2 at 2LNC-ordered and CM will have delivered Hypothyroidism Continue Synthroid TSH here is 2.25 DVT prophylaxis: On Eliquis Diet: Heart healthy Disposition: dc to home with home health. able to take him back and declines fo rhim to go to rehab as recommended by PT. She and her daughters live there and have all equipment needed to take care of him and assist with mobiliation (2) Weakness: (3) AICD (automatic cardioverter/defibrillator) present: (4) Anemia: (5) CAD (coronary artery disease): (6) History of kidney stones: (7) Paroxysmal atrial fibrillation: (8) Sleep apnea: (9) Iron deficiency anemia: (10) History of TN (myocardial infarction): (11) Dementia: Home Health Attestation I certify that this patient is under my care and that I, or a physicians assistant hvac mechanic working with me, had a face to-face encounter that meets the home health [id number] encounter requirements with this patient. The encounter with the patient was in whole, or in part, for the following medical condition, which is the primary reason for home health care (list medical condition): Covid-19 I certify that, based on my findings, the following services are medically necessary home health services: My clinical findings support the need for the above services because: OT Assess ADL Status and Restore Function w ADLs PT Assessment for Endurance / Balance / Strength PT Eval for Safety and Mobility PT Eval for Safety, Gait Training, Assistive Devices PT Gait and Balance Training, Strengthening and Safety Skilled Nsg Assessment Skilled Nsg Assess Pt Illness, Disease and Sx Monitoring Further, I certify that my clinical findings support that this patient is homebound (i.e. absences from home require considerable and taxing effort and are for medical reasons or episcopalian services or infrequently or of short duration when for other reasons) because: Transportation Assistance/Unable to Leave Home Unassisted Certification for Home Health Services: Based on the above findings, I certify that this patient is confined to the home and needs intermittent chcf care, physical therapy and/or speech therapy or continues to need occupational therapy. The patient is under my care, and I have initiated the establishment of the plan of care. This patient will be followed by a physician who will periodically review the plan of care. Total Time Total Time Spent Total Time Spent (In Minutes): 35 min Discharge Plan Discharge Items Patient Disposition: Home - Home Health Services Reason For Visit: DEMENTIA- WEAKNESS Discharge Diagnosis: COVID-19, Hypoxia Condition on Discharge: Fair Activity: As commented below Lifting: Gradually increase as tolerated Bathing: No limitations Exercise/Sports: Gradually increase as tolerated Non-emergency contact: Primary Care Provider Call non-emergency contact if: you have any medication questions, your symptoms worsen and you have a fever Follow-up/Referrals: Celina Saunders DO [Primary Care Provider] - (Follow up within 1-2 weeks.) Diet: Heart Healthy and Low Sodium (2gm) Addtl Attending Provider Instructions: Please finish out the course of dexamethasone once daily as a steroid pill for your COVID-19. You will need to wear 2 L of oxygen through a nasal cannula at bedtime or while taking naps. You do NOT need to take any antibiotics for a urinary tract infection. Please follow up with your PCP within 1 week after discharge. If you develop any worsening shortness of breath, chest pains, or any other acute concerns, please return to the hospital. Pending Studies at Discharge: Yes Studies:: Final urine culture Stand-Alone Forms: My [facility] Medications and DC Order Prescriptions: New dexamethasone 6 mg tablet 6 mg PO DAILY Qty: 7 0RF Continued folic acid 1 mg tablet 1 mg PO QAM Qty: 90 1RF carvedilol 3.125 mg tablet 3.125 mg PO BID Qty: 180 1RF Rx Instructions: TAKE ONE TABLET BY MOUTH TWICE DAILY with meals albuterol sulfate 2.5 mg /3 mL (0.083 %) solution for nebulization 2.5 mg inhalation QID PRN (Reason: shortness of breath or wheezing) Qty: 75 5RF isosorbide mononitrate 30 mg tablet extended release 24 hr 30 mg PO QAM Qty: 90 1RF gabapentin 300 mg capsule 300 mg PO HS Qty: 90 3RF Rx Instructions: PER PT FROM [facility], PT IS ONLY TAKING THIS ONCE DAILY ipratropium-albuterol 0.5 mg-3 mg(2.5 mg base)/3 mL solution for nebulization 3 ml inhalation Q6H PRN (Reason: wheezing) Qty: 90 0RF levothyroxine [Synthroid] 112 mcg tablet 112 mcg PO HS Qty: 90 1RF bethanechol chloride 50 mg tablet 50 mg PO QID Qty: 360 1RF simvastatin 80 mg tablet 80 mg PO HS Qty: 90 1RF famotidine [Pepcid] 40 mg tablet 40 mg PO QAM Qty: 90 1RF Eliquis 2.5 mg tablet 2.5 mg PO BID Qty: 180 1RF armodafinil 200 mg tablet 100 mg PO QAM Qty: 30 3RF Label Comments: states on 08/15 has not started taking med yet tramadol 50 mg tablet 50 mg PO TID PRN (Reason: Pain) Qty: 30 0RF Rx Instructions: PDMP: 06/03/21 memantine [Namenda] 10 mg tablet 10 mg PO BID Qty: 180 3RF donepezil 10 mg tablet 10 mg PO HS Qty: 90 3RF bupropion HCl 100 mg tablet sustained-release 12 hr 100 mg PO BID Qty: 60 5RF acetaminophen 325 mg Tablet 650 mg PO Q4H PRN (Reason: pain) Qty: 30 0RF Rx Instructions: OTC ferrous sulfate 325 mg (65 mg iron) tablet,delayed release (DR/EC) 325 mg PO QAM polyethylene glycol 3350 [Miralax] 17 gram powder in packet 17 g PO BID PRN (Reason: Constipation) cyanocobalamin (vitamin B-12) 1,000 mcg Tablet 1,000 mcg PO QAM ascorbic acid (vitamin C) [Vitamin C] 500 mg Tablet 500 mg PO QAM docusate sodium [Stool Softener] 100 mg Capsule 100 mg PO BID vitamin E 400 unit Capsule 400 unit PO QAM albuterol sulfate [Ventolin HFA] 90 mcg/actuation Hfa Aerosol Inhaler 2 puff inhalation Q6H PRN (Reason: cough/wheeze/shortness of breath) Qty: 1 0RF nystatin 100,000 unit/gram cream 1 applic topical UD PRN (Reason: Skin Irritation) calcium carbonate-vitamin D2 600 mg calcium- 200 unit Tablet 1 tab PO DAILY tamsulosin 0.4 mg capsule 0.4 mg PO HS Qty: 30 0RF phenazopyridine [Pyridium] 200 mg tablet 200 mg PO Q8H PRN (Reason: pain) Qty: 10 0RF Changed (DME) Oxygen Home Liters Per Minute See Rx Instructions .Route Qty: 1 0RF Rx Instructions: 2 lpm nightly or while asleep. Discontinued tamsulosin 0.4 mg capsule 0.4 mg PO HS Qty: 30 0RF Discharge Orders: Discharge Order (Routine); Ordered 09/21/21 Ordered By: Maryan Cook Admission Data Admit Date/Time: 09/19/21 18:43 Attending Provider: Maryan Cook Admit Provider: Rodo Hong Primary Care Provider: Celina Suanders Other Providers: Rodo Hong Coding Level of Care Code D/C DAY MANAGEMENT >30 MINS Diagnoses COVID-19 U07.1 Weakness R53.1 AICD (automatic cardioverter/defibrillator) present Z95.810 Anemia D64.9 CAD (coronary artery disease) I25.10 History of kidney stones Z87.442 Paroxysmal atrial fibrillation I48.0 Sleep apnea G47.30 Iron deficiency anemia D50.9 History of TN (myocardial infarction) I25.2 Dementia F03.90
== END 2021-09-21 15:04 | disposition home health service (06) ==
LOC: ED 15:40 → INTOOBSV 18:43 → SUATTDRO 18:43 → EDINP 18:43 → 2W 21:00

== ENCOUNTER 2021-09-29 15:59 | Inpatient (IN) ==
--- NOTE | 2021-09-29 16:43 | Emergency Department Note ---
Impression & Plan Weakness, SOB (shortness of breath) ED Provider Note INFORMANT: Patient ED PROVIDER(S): Alfredo Alcaraz MD CHIEF COMPLAINT: Shortness of breath PLAN: Disposition: Admitted Condition: Good Outpatient prescription management: none Referral: None MEDICAL DECISION MAKING: Patient presented with shortness of breath. Family reported to EMS that he has had a hard time breathing. Patient does have dementia and the history was somewhat limited regarding details. He had a work-up initiated. Patient was found to have a right-sided pneumonia on chest x-ray. His CBC showed a mild anemia. Creatinine was elevated but baseline. ECG showed an A. fib without ischemia. Blood cultures were performed. The patient was given IV vancomycin and IV cefepime based upon his recent hospitalization. [facility] Patient was evaluated intermitted for further management. Triage Nursing notes reviewed and agree them. Vital Signs: reviewed and remarkable for no significant abnormalities Differential diagnosis: Infection, dehydration, metabolic abnormality, hypo/hyperglycemia, electrolyte disturbance, anemia, hypoxia, cardiac sources, intracerebral event, toxicologic, neurologic, as well as other pathologies. Diagnostics interpreted by me: ECG: Twelve-lead ECG reveals atrial fibrillation at 85 bpm. Left axis deviation. Nonspecific ST. No ST elevation. Cardiac Monitoring: Cardiac monitoring ordered by me: The patient was placed on continuous cardiac monitoring and observed. It revealed A. fib at 82 bpm. Imaging studies: Chest x-ray as noted below. HPI: The patient is a 81 year old male who presents to the Emergency Room with complaints of shortness of breath. This started almost 2 weeks ago and is persisting since his COVID diagnosis. EMS reports the family noted the patient was having difficulty breathing and complained of some chest pain. This has been ongoing since discharge from the hospital. EMS found the patient on room air and his saturations were 86%. He does use oxygen as needed at night. The patient also notes the following associated symptoms, intermittent epigastric discomfort. The patient has been given no medication today for relieving factors. Current pain is rated as 0/10. Pt denies LOC, headache, fevers, chills, diaphoresis, visual changes, neck pain, nausea, vomiting, back pain, melena, hematochezia, urinary symptoms, numbness, weakness, lymphadenopathy, rash, or other complaints. ROS: See above HPI for pertinent positives & negatives. A total of 10 systems reviewed and were otherwise negative. PAST MEDICAL HISTORY:See Below , dementia, COVID-19, CAD, A. fib PAST SURGICAL HISTORY:See Below, FAMILY HISTORY:See Below SOCIAL HISTORY:See Below, HOME MEDICATIONS:See Below ALLERGIES:See Below VITALS:See Below PHYSICAL EXAMINATION: GENERAL: Awake, alert, tired-appearing, in no distress HENT: Normocephalic, atraumatic. Oropharynx unremarkable. EYES: Normal conjunctiva. Sclera non-icteric. NECK: Inspection normal. Non-tender. Supple. No nuchal rigidity. FROM. No masses. RESPIRATORY: Scattered rhonchi. No wheezes. No rales. Normal respiratory effort. CARDIAC: Normal rate. Irregular rhythm. Systolic ejection murmur present. No rubs. Extremities warm and well perfused. Pulses equal. No JVD. GI: Soft, non-distended. No tenderness to palpation. No rebound or guarding. No masses. RECTAL: Deferred. MUSCULOSKELETAL: Atraumatic. Chest examination reveals no tenderness. The back is symmetrical on inspection without obvious abnormality. There is no CVA tenderness to palpation. No joint edema. LOWER EXTREMITIES: Calves are equal size bilaterally and non-tender. Trace edema. No discoloration. NEURO: Demented sensorium. No sensory or motor deficits noted. SKIN: No rash or jaundice noted. Alfredo Alcaraz MD Past Med/Surg History Medical History (Updated 09/29/21 @ 22:16 by Ceferino Alvarez MD) Anxiety and depression Aortic stenosis Moderate per 07/12/21 ECHO- (AV max velocity 3.25m/s; AV mean gradient 29mmHg; UZMA, VTI 1.59cm2; UZMA, Vmax 1.55cm2) CAD (coronary artery disease) Multiple cardiac stents (x4 total)- most recent 3+ years ago 1997- LCx- stent Most recent cath 2013 per cardio records "LAD okay, LCX OM 30, RCA ok, NL EF" Chronic diastolic heart failure Stable per 04/2021 cardio note No diuretics needed at this time Chronic pain COPD (chronic obstructive pulmonary disease) Dementia 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 On donepezil and memantine, follows with neurology Dyslipidemia History of kidney stones History of SC (myocardial infarction) 1997- Follows with Dr. Hodge/Kassidy History of recent hospitalization Admitted to [facility] 07/10/21-07/14/21- for staph bacteremia secondary to infected wound at suprapubic catheter site, UTI, acute metabolic encephalopathy; per 08/09/21 neuro note- bacteremia resolved with abxs, acute metabolic encephalopathy resolved, mental status back to baseline, UTI/GIOVANY resolved after abx. 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 SSS Initially implanted in 2008- generator change in 2017 Paroxysmal atrial fibrillation NO HX CARDIOVERSION On Eliquis Recurrent UTI Secondary hyperparathyroidism of renal origin Sleep apnea NO DEVICE USED UNABLE TO TOLERATE CPAP Stage 3b chronic kidney disease Suprapubic catheter In place secondary to neurogenic bladder Surgical History H/O total knee replacement R/L History of back surgery MULTIPLE History of cardiac cath Multiple cardiac stents (x4 total)- most recent 3+ years ago History of carpal tunnel release of both wrists History of cataract surgery B/L History of colonoscopy History of lithotripsy History of lumbar fusion History of prostate surgery Partial prostatectomy History of thyroidectomy secondary to goiter History of tooth extraction All teeth S/P cystoscopy with ureteral stent placement last 05/2021 @ [facility] Dr. William Medrano- Cystoscopy, Bilateral retrograde pyelogram, Bilateral ureteral stent exchange, Left aspiration and culture S/P TURP S/P ureteral stent placement Cysto, B/L RPG, right ureteroscopy, stent exchange: 07/06/18: LMA#5 at [facility] Cysto stent exchange (11/2018) Cystoscopy, stent exchange, suprapubic catheter (04/30/20): MAC at [facility] Family History Father Diabetes Mother Coronary heart disease Hypertension Brother Seizure Other No family history of adverse response to anesthesia Denies family history of Ovarian cancer Prostate cancer Myocardial infarction Breast cancer Colorectal cancer Social History Smoking Status: Never smoker Tobacco Type: Cigarettes Age Started Using Tobacco: 15; Age Quit Using Tobacco: 59; packs per day: 2; Second Hand Exposure: No; Hx Alcohol Use: No (HX MANY YRS AGO) Hx Substance Use: No Preferred Language: German Communication Ability: Effective Visual Impairment: No Limitations Hearing Ability: Hard of Hearing Gate Technician Required: No Beliefs That Will Affect Care: None marital status: Current Living Situation: Spouse and Family Current Living Situation Comment: AND 2 DAUGHTERS current occupational status: retired How many Children do You have: 3 Feels Safe at Home: Yes Childhood Exposure to Second-Hand Smoke: No caffeine: Yes (Coffee 3 per day.) during the past year weight has: remained stable Dental Care, Regularly: No Physical Activity Frequency: Does not Exercise Seatbelt Use: always Sunscreen Use: No Assistive Devices: Walker and Wheelchair Allergies Allergies Allergy/AdvReac Type Severity Reaction Status Date / Time captopril Allergy Severe Anaphylaxis Verified 09/29/21 17:34 Iodinated Contrast Media Allergy Severe Anaphylaxis Verified 09/29/21 17:34 morphine Allergy Severe Anaphylaxis Verified 09/29/21 17:34 oxaprozin Allergy Severe Anaphylaxis Verified 09/29/21 17:34 torsemide Allergy Severe Anaphylaxis Verified 09/29/21 17:34 hydrocodone Allergy Mild Rash Verified 09/29/21 17:34 Home Meds Home Medications Medication Instructions Recorded Confirmed cyanocobalamin (vitamin B-12) 1,000 mcg PO QAM 07/16/20 09/29/21 1,000 mcg tablet ferrous sulfate 325 mg (65 mg 325 mg PO QAM 07/16/20 09/29/21 iron) tablet,delayed release polyethylene glycol 3350 17 gram 17 g PO BID PRN Constipation 07/16/20 09/29/21 oral powder packet (Miralax) ascorbic acid (vitamin C) 500 mg 500 mg PO QAM 10/22/20 09/29/21 tablet (Vitamin C) docusate sodium 100 mg capsule 100 mg PO BID PRN Constipation 10/22/20 09/29/21 (Stool Softener) vitamin E 268 mg (400 unit) capsule 400 unit PO HS 10/22/20 09/29/21 nystatin 100,000 unit/gram topical 1 applic topical UD PRN Skin 05/22/21 09/29/21 cream Irritation calcium carbonate 500 mg-vitamin 1 tab PO DAILY 09/29/21 09/29/21 D3 5 mcg (200 unit) tablet carvedilol 3.125 mg tablet 3.125 mg PO BIDWMEAL 09/29/21 09/29/21 famotidine 40 mg tablet (Pepcid) 40 mg PO DAILYBB 09/29/21 09/29/21 Previous Rx's Medication Instructions Recorded acetaminophen 325 mg tablet 650 mg PO Q4H PRN pain #30 tabs 08/14/19 folic acid 1 mg tablet 1 mg PO QAM #90 tabs 10/04/19 albuterol sulfate 90 mcg/actuation 2 puff inhalation Q6H PRN 07/09/20 aerosol inhaler (Ventolin HFA) cough/wheeze/shortness of breath #1 inhaler albuterol sulfate 2.5 mg/3 mL 2.5 mg (3 mL) inhalation QID PRN 04/16/21 (0.083 %) solution for nebulization shortness of breath or wheezing #75 mL isosorbide mononitrate 30 mg 30 mg PO QAM #90 tabs 05/22/21 tablet,extended release 24 hr gabapentin 300 mg capsule 300 mg PO HS #90 caps 06/14/21 ipratropium 0.5 mg-albuterol 3 mg 3 ml inhalation Q6H PRN wheezing 06/20/21 (2.5 mg base)/3 mL nebulization #90 mL soln levothyroxine 112 mcg tablet 112 mcg PO HS #90 tabs 07/03/21 (Synthroid) bethanechol chloride 50 mg tablet 50 mg PO QID #360 tabs 07/09/21 simvastatin 80 mg tablet 80 mg PO HS #90 tabs 07/09/21 bupropion HCl 100 mg tablet,12 hr 100 mg PO BID #60 ea 08/09/21 sustained-release apixaban 2.5 mg tablet (Eliquis) 2.5 mg PO BID #180 tabs 08/13/21 tamsulosin 0.4 mg capsule 0.4 mg PO HS #30 caps 08/22/21 tramadol 50 mg tablet 50 mg PO TID PRN Pain #30 tabs 09/03/21 memantine 10 mg tablet (Namenda) 10 mg PO BID #180 tabs 09/09/21 Oxygen Home #1 ea 09/21/21 benzonatate 100 mg capsule 100 mg PO TID PRN cough #30 caps 09/23/21 donepezil 10 mg tablet 10 mg PO HS #90 tabs 09/23/21 Oxygen Home #1 ea 09/24/21 Results & Data (ED) Vital Signs Vital Signs - 24 hr 09/29/21 16:24 09/29/21 16:25 09/29/21 16:35 Temperature 37 C 37 C Temperature Source Oral Oral Pulse Rate 85 88 Pulse Rate [Right Finger] 85 Respiratory Rate 20 24 Respiratory Effort / Characteristics Non-Labored Labored Respiratory Depth Normal Normal Blood Pressure 194/99 H Blood Pressure [Right Arm] 194/99 H Blood Pressure Mean 130 Blood Pressure Mean [Right Arm] 130 Pulse Oximetry 95 94 94 Oxygen Delivery Method Nasal Cannula Nasal Cannula Nasal Cannula Oxygen Flow Rate 4 4 3 Sepsis Recent Fever Within 48 Hours No Sepsis New/Unexplained Change in Mental Status No Sepsis Action Taken by Nursing No Action Required 09/29/21 18:49 09/29/21 20:23 09/29/21 22:27 Temperature Temperature Source Pulse Rate Pulse Rate [Right Finger] 85 95 H 82 Respiratory Rate 20 22 18 Respiratory Effort / Characteristics Non-Labored Non-Labored Non-Labored Respiratory Depth Normal Normal Normal Blood Pressure Blood Pressure [Right Arm] 181/106 H Blood Pressure Mean Blood Pressure Mean [Right Arm] 131 Pulse Oximetry 94 98 93 Oxygen Delivery Method Nasal Cannula Room Air Room Air Oxygen Flow Rate 3 Sepsis Recent Fever Within 48 Hours Sepsis New/Unexplained Change in Mental Status Sepsis Action Taken by Nursing Laboratory Data Result diagrams: 09/29/21 16:42 09/29/21 16:42 Lab Results 09/29/21 09/29/21 09/29/21 Range/Units 16:32 16:42 16:42 WBC 9.10 (4.8-10.8) K/ul RBC 4.25 L (4.63-6.08) M/uL Hgb 12.8 L (14.0-18.0) g/dl Hct 39.7 L (40.1-51.0) % MCV 93.4 (80.0-100.0) fL MCH 30.1 (25.0-34.0) pg MCHC 32.2 (32.0-36.0) g/dL RDW Std Deviation 47.8 H (36.4-46.3) fL RDW Coeff of Curtis 14.0 (11.5-14.5) % Plt Count 204 (130-400) K/uL MPV 10.2 (9.4-12.4) fL Immature Gran % (Auto) 1.4 % Neut % (Auto) 76.1 % Lymph % (Auto) 10.2 % [place] % (Auto) 12.1 % Eos % (Auto) 0.1 % Baso % (Auto) 0.1 % Neut # (Auto) 6.92 H (1.4-6.5) K/uL Lymph # (Auto) 0.93 L (1.2-3.4) K/uL [place] # (Auto) 1.10 H (0.24-0.82) K/uL Eos # (Auto) 0.01 (0-0.50) K/uL Baso # (Auto) 0.01 (0-0.2) K/uL Immature Gran # (Auto) 0.13 H (0.00-0.02) K/uL Sodium 137 (136-145) mmol/L Potassium 3.5 (3.5-5.1) mmol/L Chloride 100 (98-107) mmol/L Carbon Dioxide 28 (21-32) mmol/L Anion Gap 9 (3-11) BUN 27 H (6-23) mg/dl Creatinine 1.78 H (0.6-1.4) mg/dl Est Cr Clr Drug Dosing 33.7 ml/min Est GFR ( Amer) 40.3 ml/min Est GFR (Non-Af Amer) 34.8 ml/min BUN/Creatinine Ratio 15.2 (10-20) Glucose 92 (70-99(Fasting)) mg/dl Calcium 8.9 (8.5-10.1) mg/dl Magnesium 2.1 (1.7-2.4) mg/dl Total Bilirubin 0.7 (0.2-1.0) mg/dl AST 16 (13-39) U/L ALT 15 (7-52) U/L Alkaline Phosphatase 85 (34-104) U/L Troponin I High Sens (0-20) pg/ml Total Protein 7.2 (6.0-8.3) gm/dl Albumin 3.8 (3.4-5.0) gm/dl Globulin 3.4 (2.5-4.0) gm/dl Albumin/Globulin Ratio 1.1 (0.9-2) Procalcitonin (0-0.5) ng/ml TSH (0.300-4.500) uIu/ml Urine Color Yellow Urine Appearance Turbid A (Clear) Urine pH 6.5 (4.5-7.5) Ur Specific [place] 1.014 (1.000-1.030) Urine Protein 2+ H (Negative) Urine Glucose (UA) Negative (Negative) Urine Ketones Negative (Negative) Urine Blood 2+ H (Negative) Urine Nitrite Negative (Negative) Urine Bilirubin Negative (Negative) Urine Urobilinogen Negative (Negative) Ur Leukocyte Esterase 3+ H (Negative) Urine WBC (Auto) >30 H (0-5) /hpf Urine RBC (Auto) 5-10 H (0-4) /hpf U Hyaline Cast (Auto) 0 (0-5) /lpf U Epithel Cells (Auto) >30 H (0-5) /lpf Urine Bacteria (Auto) Negative (Negative) Urine Yeast Budding w/ Hyphae A (None Prsent) 09/29/21 09/29/21 09/29/21 Range/Units 16:42 16:42 16:42 WBC (4.8-10.8) K/ul RBC (4.63-6.08) M/uL Hgb (14.0-18.0) g/dl Hct (40.1-51.0) % MCV (80.0-100.0) fL MCH (25.0-34.0) pg MCHC (32.0-36.0) g/dL RDW Std Deviation (36.4-46.3) fL RDW Coeff of Curtis (11.5-14.5) % Plt Count (130-400) K/uL MPV (9.4-12.4) fL Immature Gran % (Auto) % Neut % (Auto) % Lymph % (Auto) % [place] % (Auto) % Eos % (Auto) % Baso % (Auto) % Neut # (Auto) (1.4-6.5) K/uL Lymph # (Auto) (1.2-3.4) K/uL [place] # (Auto) (0.24-0.82) K/uL Eos # (Auto) (0-0.50) K/uL Baso # (Auto) (0-0.2) K/uL Immature Gran # (Auto) (0.00-0.02) K/uL Sodium (136-145) mmol/L Potassium (3.5-5.1) mmol/L Chloride (98-107) mmol/L Carbon Dioxide (21-32) mmol/L Anion Gap (3-11) BUN (6-23) mg/dl Creatinine (0.6-1.4) mg/dl Est Cr Clr Drug Dosing ml/min Est GFR ( Amer) ml/min Est GFR (Non-Af Amer) ml/min BUN/Creatinine Ratio (10-20) Glucose (70-99(Fasting)) mg/dl Calcium (8.5-10.1) mg/dl Magnesium (1.7-2.4) mg/dl Total Bilirubin (0.2-1.0) mg/dl AST (13-39) U/L ALT (7-52) U/L Alkaline Phosphatase (34-104) U/L Troponin I High Sens 38.4 H D (0-20) pg/ml Total Protein (6.0-8.3) gm/dl Albumin (3.4-5.0) gm/dl Globulin (2.5-4.0) gm/dl Albumin/Globulin Ratio (0.9-2) Procalcitonin < 0.05 (0-0.5) ng/ml TSH 3.359 (0.300-4.500) uIu/ml Urine Color Urine Appearance (Clear) Urine pH (4.5-7.5) Ur Specific [place] (1.000-1.030) Urine Protein (Negative) Urine Glucose (UA) (Negative) Urine Ketones (Negative) Urine Blood (Negative) Urine Nitrite (Negative) Urine Bilirubin (Negative) Urine Urobilinogen (Negative) Ur Leukocyte Esterase (Negative) Urine WBC (Auto) (0-5) /hpf Urine RBC (Auto) (0-4) /hpf U Hyaline Cast (Auto) (0-5) /lpf U Epithel Cells (Auto) (0-5) /lpf Urine Bacteria (Auto) (Negative) Urine Yeast (None Prsent) 09/29/21 Range/Units 20:07 WBC (4.8-10.8) K/ul RBC (4.63-6.08) M/uL Hgb (14.0-18.0) g/dl Hct (40.1-51.0) % MCV (80.0-100.0) fL MCH (25.0-34.0) pg MCHC (32.0-36.0) g/dL RDW Std Deviation (36.4-46.3) fL RDW Coeff of Curtis (11.5-14.5) % Plt Count (130-400) K/uL MPV (9.4-12.4) fL Immature Gran % (Auto) % Neut % (Auto) % Lymph % (Auto) % [place] % (Auto) % Eos % (Auto) % Baso % (Auto) % Neut # (Auto) (1.4-6.5) K/uL Lymph # (Auto) (1.2-3.4) K/uL [place] # (Auto) (0.24-0.82) K/uL Eos # (Auto) (0-0.50) K/uL Baso # (Auto) (0-0.2) K/uL Immature Gran # (Auto) (0.00-0.02) K/uL Sodium (136-145) mmol/L Potassium (3.5-5.1) mmol/L Chloride (98-107) mmol/L Carbon Dioxide (21-32) mmol/L Anion Gap (3-11) BUN (6-23) mg/dl Creatinine (0.6-1.4) mg/dl Est Cr Clr Drug Dosing ml/min Est GFR ( Amer) ml/min Est GFR (Non-Af Amer) ml/min BUN/Creatinine Ratio (10-20) Glucose (70-99(Fasting)) mg/dl Calcium (8.5-10.1) mg/dl Magnesium (1.7-2.4) mg/dl Total Bilirubin (0.2-1.0) mg/dl AST (13-39) U/L ALT (7-52) U/L Alkaline Phosphatase (34-104) U/L Troponin I High Sens 41.9 H (0-20) pg/ml Total Protein (6.0-8.3) gm/dl Albumin (3.4-5.0) gm/dl Globulin (2.5-4.0) gm/dl Albumin/Globulin Ratio (0.9-2) Procalcitonin (0-0.5) ng/ml TSH (0.300-4.500) uIu/ml Urine Color Urine Appearance (Clear) Urine pH (4.5-7.5) Ur Specific [place] (1.000-1.030) Urine Protein (Negative) Urine Glucose (UA) (Negative) Urine Ketones (Negative) Urine Blood (Negative) Urine Nitrite (Negative) Urine Bilirubin (Negative) Urine Urobilinogen (Negative) Ur Leukocyte Esterase (Negative) Urine WBC (Auto) (0-5) /hpf Urine RBC (Auto) (0-4) /hpf U Hyaline Cast (Auto) (0-5) /lpf U Epithel Cells (Auto) (0-5) /lpf Urine Bacteria (Auto) (Negative) Urine Yeast (None Prsent) Administered Medications Discontinued Medications Albuterol (Albut/Ipratrop 3mg/0.5mg Neb 3 Ml Vial) 3 ml NEB NOW STA; Protocol Stop: 09/29/21 20:30 Last Admin: 09/29/21 20:58 Dose: 3 ml Documented By: BRITTANY Apixaban (Apixaban 2.5 Mg Tab) 2.5 mg PO 2144 ONE Stop: 09/29/21 21:46 Last Admin: 09/29/21 21:47 Dose: 2.5 mg Documented By: BRITTANY Bethanechol Chloride (Bethanechol Chl 25 Mg Tab) 50 mg PO 2144 ONE Stop: 09/29/21 21:46 Last Admin: 09/29/21 21:48 Dose: 50 mg Documented By: BRITTANY Bupropion HCl (Bupropion Sr 100 Mg Tabcr) 100 mg PO 2144 ONE Stop: 09/29/21 21:46 Last Admin: 09/29/21 21:46 Dose: 100 mg Documented By: BRITTANY Carvedilol (Carvedilol 3.125 Mg Tab) 3.125 mg PO 2144 ONE Stop: 09/29/21 21:46 Last Admin: 09/29/21 21:49 Dose: 3.125 mg Documented By: BRITTANY Donepezil HCl (Donepezil Hcl 10 Mg Tab) 10 mg PO 2144 ONE Stop: 09/29/21 21:46 Last Admin: 09/29/21 21:51 Dose: 10 mg Documented By: BRITTANY Gabapentin (Gabapentin 300 Mg Cap) 300 mg PO 2144 ONE Stop: 09/29/21 21:46 Last Admin: 09/29/21 21:51 Dose: 300 mg Documented By: BRITTANY Guaifenesin (Guaifenesin 600 Mg Tabcr) 600 mg PO 2144 ONE Stop: 09/29/21 21:46 Last Admin: 09/29/21 21:49 Dose: 600 mg Documented By: BRITTANY Cefepime HCl (Maxipime) 2,000 mg in 20 mls @ 5 mls/min IV NOW STA; Protocol Stop: 09/29/21 19:01 Last Admin: 09/29/21 19:36 Dose: 5 mls/min Documented By: MYRIAM Vancomycin HCl 1,750 mg/ (Sodium Chloride) 535 mls @ 200 mls/hr IV NOW ONE Stop: 09/29/21 21:38 Last Infusion: 09/29/21 22:27 Dose: 0 mls/hr Documented By: Admin: 09/29/21 19:37 Dose: 200 mls/hr Documented By: MYRIAM Sodium Chloride (Nss 1000ml) 1,000 mls @ 100 mls/hr IV .Q10H FLEX Stop: 09/30/21 07:44 Last Admin: 09/29/21 23:11 Dose: Not Given Documented By: LASHELL Memantine (Memantine Hcl 10 Mg Tab) 10 mg PO 2144 ONE Stop: 09/29/21 21:46 Last Admin: 09/29/21 21:50 Dose: 10 mg Documented By: BRITTANY Methylprednisolone (Methylprednisolone 40 Mg/Ml Vial) 40 mg IV BID STA Stop: 09/29/21 20:51 Last Admin: 09/29/21 20:58 Dose: 40 mg Documented By: BRITTANY Simvastatin (Simvastatin 80 Mg Tab) 80 mg PO 2144 ONE Stop: 09/29/21 21:46 Last Admin: 09/29/21 21:52 Dose: 80 mg Documented By: BRITTANY Tamsulosin HCl (Tamsulosin Hcl 0.4 Mg Cap) 0.4 mg PO 2144 ONE Stop: 09/29/21 21:46 Last Admin: 09/29/21 21:47 Dose: 0.4 mg Documented By: BRITTANY Imaging Data Radiologist's Impression: Chest X-Ray 09/29/21 16:12 XR chest 1V portable HISTORY: Cough. weakness COMPARISON: Chest 09/19/2021. FINDINGS: No pneumothorax. Trace left pleural effusion, unchanged. The heart remains mildly enlarged. There is left-sided dual-chamber pacemaker. There is mild diffuse interstitial thickening with right lung hazy airspace opacities. IMPRESSION: 1. Mild interstitial thickening with interval development of right lung hazy airspace opacities. This may represent asymmetric pulmonary edema or a developing pneumonia. 2. Cardiomegaly and a trace left pleural effusion persists. ACT 112: Negative or not required by law. Electronically signed by: Travis Cabrera M.D. 09/29/2021 5:45 PM Discharge Plan Visit Data Chief Complaint: Illness ED Provider: Alfredo Alcaraz Discharge Problem: Weakness, SOB (shortness of breath) Forms Stand Alone Forms: [facility] Prescriptions Prescriptions: No Action folic acid 1 mg tablet 1 mg PO QAM Qty: 90 1RF albuterol sulfate 2.5 mg /3 mL (0.083 %) solution for nebulization 2.5 mg inhalation QID PRN (Reason: shortness of breath or wheezing) Qty: 75 5RF isosorbide mononitrate 30 mg tablet extended release 24 hr 30 mg PO QAM Qty: 90 1RF gabapentin 300 mg capsule 300 mg PO HS Qty: 90 3RF ipratropium-albuterol 0.5 mg-3 mg(2.5 mg base)/3 mL solution for nebulization 3 ml inhalation Q6H PRN (Reason: wheezing) Qty: 90 0RF levothyroxine [Synthroid] 112 mcg tablet 112 mcg PO HS Qty: 90 1RF bethanechol chloride 50 mg tablet 50 mg PO QID Qty: 360 1RF simvastatin 80 mg tablet 80 mg PO HS Qty: 90 1RF Eliquis 2.5 mg tablet 2.5 mg PO BID Qty: 180 1RF tramadol 50 mg tablet 50 mg PO TID PRN (Reason: Pain) Qty: 30 0RF memantine [Namenda] 10 mg tablet 10 mg PO BID Qty: 180 3RF donepezil 10 mg tablet 10 mg PO HS Qty: 90 3RF benzonatate 100 mg capsule 100 mg PO TID PRN (Reason: cough) Qty: 30 0RF (DME) Oxygen Home Liters Per Minute See Rx Instructions .Route Qty: 1 0RF Rx Instructions: 2L via NC at night bupropion HCl 100 mg tablet sustained-release 12 hr 100 mg PO BID Qty: 60 5RF acetaminophen 325 mg Tablet 650 mg PO Q4H PRN (Reason: pain) Qty: 30 0RF ferrous sulfate 325 mg (65 mg iron) tablet,delayed release (DR/EC) 325 mg PO QAM polyethylene glycol 3350 [Miralax] 17 gram powder in packet 17 g PO BID PRN (Reason: Constipation) cyanocobalamin (vitamin B-12) 1,000 mcg Tablet 1,000 mcg PO QAM ascorbic acid (vitamin C) [Vitamin C] 500 mg Tablet 500 mg PO QAM docusate sodium [Stool Softener] 100 mg Capsule 100 mg PO BID PRN (Reason: Constipation) vitamin E 400 unit Capsule 400 unit PO HS (DME) Oxygen Home Liters Per Minute See Rx Instructions .Route Qty: 1 0RF Rx Instructions: 2 lpm nightly or while asleep. albuterol sulfate [Ventolin HFA] 90 mcg/actuation Hfa Aerosol Inhaler 2 puff inhalation Q6H PRN (Reason: cough/wheeze/shortness of breath) Qty: 1 0RF nystatin 100,000 unit/gram cream 1 applic topical UD PRN (Reason: Skin Irritation) tamsulosin 0.4 mg capsule 0.4 mg PO HS Qty: 30 0RF carvedilol 3.125 mg tablet 3.125 mg PO BIDWMEAL famotidine [Pepcid] 40 mg tablet 40 mg PO DAILYBB calcium carbonate-vitamin D3 500 mg-5 mcg (200 unit) Tablet 1 tab PO DAILY Referrals Referrals: Celina Saunders DO [Primary Care Provider] -
[2021-09-29 16:59] LABS: Basophils # (auto) 0.01 K/uL (0-0.2); Basophils % (auto) 0.1 %; Eosinophils # (auto) 0.01 K/uL (0-0.50); Eosinophils % (auto) 0.1 %; Hematocrit (blood only) 39.7 % (40.1-51.0); Hemoglobin 12.8 g/dl (14.0-18.0); Immature Granulocytes # (auto) 0.13 K/uL (0.00-0.02); Immature Granulocytes % (auto) 1.4 %; Lymphocytes # (auto) 0.93 K/uL (1.2-3.4); Lymphocytes % (auto) 10.2 %; Mean Corpuscular Hemoglobin 30.1 pg (25.0-34.0); Mean Corpuscular Hgb Conc 32.2 g/dL (32.0-36.0); Mean Corpuscular Volume 93.4 fL (80.0-100.0); Mean Platelet Volume 10.2 fL (9.4-12.4); Monocytes % (auto) 12.1 %; Neutrophils # (auto) 6.92 K/uL (1.4-6.5); Neutrophils % (auto) 76.1 %; Platelet Count 204 K/uL (130-400); RDW Standard Deviation 47.8 fL (36.4-46.3); Red Blood Count 4.25 M/uL (4.63-6.08)
[2021-09-29 17:04] LABS: Appearance Urine Turbid (Clear); Bacteria Urine Automated Negative (Negative); Bilirubin Urine Negative (Negative); Blood Urine 2+ (Negative); Color Urine Yellow; Epithelial Cell Urine Auto >30 /lpf (0-5); Glucose Urine UA Negative (Negative); Ketones Urine Negative (Negative); Leukocyte Esterase Urine 3+ (Negative); Nitrite Urine Negative (Negative); Protein Urine 2+ (Negative); Specific Gravity Urine 1.014 (1.000-1.030); Urobilinogen Urine Negative (Negative); WBC Urine Automated >30 /hpf (0-5); pH Urine 6.5 (4.5-7.5)
[2021-09-29 17:24] LABS: Albumin Globulin Ratio 1.1 (0.9-2); Albumin Level 3.8 gm/dl (3.4-5.0); BUN Creatinine Ratio 15.2 (10-20); Bilirubin,Total 0.7 mg/dl (0.2-1.0); Calcium 8.9 mg/dl (8.5-10.1); Creatinine Clr Calc Pharmacy 33.7 ml/min; Est GFR (African American) 40.3 ml/min; Est GFR (Non-African American) 34.8 ml/min; Globulin 3.4 gm/dl (2.5-4.0); Magnesium 2.1 mg/dl (1.7-2.4); Potassium 3.5 mmol/L (3.5-5.1); Total Protein 7.2 gm/dl (6.0-8.3)
[2021-09-29 17:32] LABS: Cast Urine Automated 0 /lpf (0-5)
--- NOTE | 2021-09-29 17:46 | XRay Report ---
XR chest 1V portable HISTORY: Cough. weakness COMPARISON: Chest 09/19/2021. FINDINGS: No pneumothorax. Trace left pleural effusion, unchanged. The heart remains mildly enlarged. There is left-sided dual-chamber pacemaker. There is mild diffuse interstitial thickening with right lung hazy airspace opacities. IMPRESSION: 1. Mild interstitial thickening with interval development of right lung hazy airspace opacities. This may represent asymmetric pulmonary edema or a developing pneumonia. 2. Cardiomegaly and a trace left pleural effusion persists. ACT 112: Negative or not required by law. Electronically signed by: Travis Cabrera M.D. 09/29/2021 5:45 PM
[2021-09-29] MEDS ORDERED: VANCOMYCIN HCL 1,750 MG in SODIUM CHLORIDE 0.9% 500 ML IV ONE (18:58)
[2021-09-29] MEDS ORDERED: VANCOMYCIN CONSULT ACTIVE PRN (18:58)
[2021-09-29] MEDS ORDERED: CEFEPIME 2,000 MG/20 ML VIAL IV STA (18:58)
--- NOTE | 2021-09-29 19:30 | History & Physical Report ---
Date of Service September 29, 2021 Assessment & Plan (1) Acute respiratory failure with hypoxia: Plan: 81yo male with a history of Alzheimer's, recurrent CAUTI, paroxysmal afib, CAD with TX, CKD, iron-deficiency anemia, hypothyroidism, CHOLO, MDD, and recent covid infection presents with shortness of breath for about two weeks, then found by EMS to be hypoxic to the mid-80s. Acute hypoxic respiratory failure, SOB, cough suspected secondary to persistent viral source Patient noted to by hypoxic to mid-80s by EMS, though spO2 was adequate on 4L NC upon arrival Patient afebrile, no tachycardia or tachypnea, procalcitonin negative CXR: mild interstitial thickening, interval development of right lung hazy opacities concerning for asymmetric pulmonary edema vs developing pneumonia; cardiomegaly and trace left pleural effusion persisting from prior imaging Symptoms, labs, imaging concerning for viral pneumonia; low suspicion for bacterial source based on the above though could be early Patient received vanc/cefepime in ED; will hold off on further antibiotics given the above Continue supplemental oxygen as needed, wean as indicated Methylprednisolone 40mg IV bid Duonebs Guaifenesin, tessalon Incentive spirometry, flutter valve, PT/OT Trend CBC Conjunctivitis Cifloxin oph two drops each eye q4h ordered Warm compress q4h ordered Continue to monitor Bacteriuria, history of CAUTI Patient with suprapubic catheter and history of CAUTI Patient with only mild pericatheter irritation which he says is not different from baseline Afebrile, no leukocytosis, no flank tenderness, procal negative Given the above, suspect UA findings represent colonization rather than infection Urine culture pending Encourage PO intake to maintain adequate hydration CAD, history of TX, elevated hsTroponin Initial hsTroponin elevated to 38.4, repeat 41.9 - no further repeat values indicated based on small delta EKG: junctional rhythm per automated read, rate 85, no overt ischemic change Suspect elevated hsTroponin secondary to demand ischemia from afib +/- ongoing viral infection Continue home regimen Paroxysmal atrial fibrillation Not in afib on admission, rate not elevated Continue home eliquis CKD3 Creatinine on admission 1.78 which appears to be near baseline Anticipate some elevation in creatinine in AM since patient received vancomycin in ED Trend BMP, avoid further nephrotoxins, encourage PO intake Alzheimer's: continue home regimen Iron-deficiency anemia: mild, MCV wnl, continue home iron supplementation CHOLO, MDD: continue home regimen Hypothyroidism: continue home regimen FEN: heart-healthy diet Code status: full code DVT ppx: home eliquis PT/OT: ordered Dispo: med/telemetry (2) AICD (automatic cardioverter/defibrillator) present: (3) Anemia: (4) CAD (coronary artery disease): (5) Catheter-associated urinary tract infection: (6) COVID-19: (7) Dementia: (8) Dyslipidemia: (9) History of TX (myocardial infarction): (10) Nocturnal hypoxia: (11) Paroxysmal atrial fibrillation: (12) Stage 3b chronic kidney disease: History of Present Illness Primary Care Provider: Celina Saunders, DO 81yo male with a history of Alzheimer's, recurrent CAUTI, paroxysmal afib, CAD with TX, CKD, iron-deficiency anemia, hypothyroidism, CHOLO, MDD, and recent covid infection presents with shortness of breath for about two weeks. This has been going on since patient had covid, at which he was hospitalized at [facility] (09/19 - 09/21/21) for acute hypoxic respiratory failure. Patient also notes a cough persistent since last admission but slightly worse over the past couple days. EMS was called and noted patient was hypoxic to the mid-80s, though this improved with supplemental oxygen. Patient also endorses some slight pain around his catheter site but notes this is not abnormal for him and has not worsened recently. Also endorses mild back pain which is also not abnormal for him. Patient denies fever, chills, headache, eye pain, sinus pain, vision changes, CP, palpitations, edema, abdominal pain, nausea, vomiting, lightheadedness, dizziness, numbness, tingling, weakness, or other symptoms. Upon arrival, vitals were notable for elevated BP (190s/90s). No tachycardia, no tachypnea, patient afebrile, spO2 on arrival adequate on 4L NC. Initial labs were notable for mild anemia (12.8), elevated creatinine (1.78), and elevated hsTroponin (38.4). No leukocytosis or leukopenia, platelets wnl, no electrolyte abnormalities, LFTs wnl, TSH wnl. Procalcitonin pending, repeat hsTroponin pending. UA: turbid, 2+ protein, 2+ blood, 3+ leuk esterase, >30 WBCs, budding yeast with hyphae, and >30 epithelial cells. EKG: junctional rhythm per automated read, rate 85, no overt ischemic change CXR: mild interstitial thickening, interval development of right lung hazy opacities concerning for asymmetric pulmonary edema vs developing pneumonia; c ardiomegaly and trace left pleural effusion persisting from prior imaging In the ED, patient received vancomycin and cefepime. Allergies Allergy/AdvReac Type Severity Reaction Status Date / Time captopril Allergy Severe Anaphylaxis Verified 09/29/21 17:34 Iodinated Contrast Media Allergy Severe Anaphylaxis Verified 09/29/21 17:34 morphine Allergy Severe Anaphylaxis Verified 09/29/21 17:34 oxaprozin Allergy Severe Anaphylaxis Verified 09/29/21 17:34 torsemide Allergy Severe Anaphylaxis Verified 09/29/21 17:34 hydrocodone Allergy Mild Rash Verified 09/29/21 17:34 Home Medications Medication Instructions Recorded Confirmed Type acetaminophen 325 mg tablet 650 mg PO Q4H PRN pain #30 tabs 08/14/19 09/29/21 Rx folic acid 1 mg tablet 1 mg PO QAM #90 tabs 10/04/19 09/29/21 Rx albuterol sulfate 90 mcg/actuation 2 puff inhalation Q6H PRN 07/09/20 09/29/21 Rx aerosol inhaler (Ventolin HFA) cough/wheeze/shortness of breath #1 inhaler cyanocobalamin (vitamin B-12) 1,000 mcg PO QAM 07/16/20 09/29/21 History 1,000 mcg tablet ferrous sulfate 325 mg (65 mg 325 mg PO QAM 07/16/20 09/29/21 History iron) tablet,delayed release polyethylene glycol 3350 17 gram 17 g PO BID PRN Constipation 07/16/20 09/29/21 History oral powder packet (Miralax) ascorbic acid (vitamin C) 500 mg 500 mg PO QAM 10/22/20 09/29/21 History tablet (Vitamin C) docusate sodium 100 mg capsule 100 mg PO BID PRN Constipation 10/22/20 09/29/21 History (Stool Softener) vitamin E 268 mg (400 unit) capsule 400 unit PO HS 10/22/20 09/29/21 History albuterol sulfate 2.5 mg/3 mL 2.5 mg (3 mL) inhalation QID PRN 04/16/21 09/29/21 Rx (0.083 %) solution for nebulization shortness of breath or wheezing #75 mL isosorbide mononitrate 30 mg 30 mg PO QAM #90 tabs 05/22/21 09/29/21 Rx tablet,extended release 24 hr nystatin 100,000 unit/gram topical 1 applic topical UD PRN Skin 05/22/21 09/29/21 History cream Irritation gabapentin 300 mg capsule 300 mg PO HS #90 caps 06/14/21 09/29/21 Rx ipratropium 0.5 mg-albuterol 3 mg 3 ml inhalation Q6H PRN wheezing 06/20/21 09/29/21 Rx (2.5 mg base)/3 mL nebulization #90 mL soln levothyroxine 112 mcg tablet 112 mcg PO HS #90 tabs 07/03/21 09/29/21 Rx (Synthroid) bethanechol chloride 50 mg tablet 50 mg PO QID #360 tabs 07/09/21 09/29/21 Rx simvastatin 80 mg tablet 80 mg PO HS #90 tabs 07/09/21 09/29/21 Rx bupropion HCl 100 mg tablet,12 hr 100 mg PO BID #60 ea 08/09/21 09/29/21 Rx sustained-release apixaban 2.5 mg tablet (Eliquis) 2.5 mg PO BID #180 tabs 08/13/21 09/29/21 Rx tamsulosin 0.4 mg capsule 0.4 mg PO HS #30 caps 08/22/21 09/29/21 Rx tramadol 50 mg tablet 50 mg PO TID PRN Pain #30 tabs 09/03/21 09/29/21 Rx memantine 10 mg tablet (Namenda) 10 mg PO BID #180 tabs 09/09/21 09/29/21 Rx Oxygen Home #1 ea 09/21/21 Rx benzonatate 100 mg capsule 100 mg PO TID PRN cough #30 caps 09/23/21 09/29/21 Rx donepezil 10 mg tablet 10 mg PO HS #90 tabs 09/23/21 09/29/21 Rx Oxygen Home #1 ea 09/24/21 Rx calcium carbonate 500 mg-vitamin 1 tab PO DAILY 09/29/21 09/29/21 History D3 5 mcg (200 unit) tablet carvedilol 3.125 mg tablet 3.125 mg PO BIDWMEAL 09/29/21 09/29/21 History famotidine 40 mg tablet (Pepcid) 40 mg PO DAILYBB 09/29/21 09/29/21 History Past Med/Surg History Medical History (Updated 09/29/21 @ 22:16 by Ceferino Alvarez MD) Anxiety and depression Aortic stenosis Moderate per 07/12/21 ECHO- (AV max velocity 3.25m/s; AV mean gradient 29mmHg; UZMA, VTI 1.59cm2; UZMA, Vmax 1.55cm2) CAD (coronary artery disease) Multiple cardiac stents (x4 total)- most recent 3+ years ago 1997- LCx- stent Most recent cath 2013 per cardio records "LAD okay, LCX OM 30, RCA ok, NL EF" Chronic diastolic heart failure Stable per 04/2021 cardio note No diuretics needed at this time Chronic pain COPD (chronic obstructive pulmonary disease) Dementia 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 On donepezil and memantine, follows with neurology Dyslipidemia History of kidney stones History of TX (myocardial infarction) 1997- Follows with Dr. Hodge/Kassidy History of recent hospitalization Admitted to [facility] 07/10/21-07/14/21- for staph bacteremia secondary to infected wound at suprapubic catheter site, UTI, acute metabolic encephalopathy; per 08/09/21 neuro note- bacteremia resolved with abxs, acute metabolic encephalopathy resolved, mental status back to baseline, UTI/GIOVANY resolved after abx. 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 SSS Initially implanted in 2008- generator change in 2017 Paroxysmal atrial fibrillation NO HX CARDIOVERSION On Eliquis Recurrent UTI Secondary hyperparathyroidism of renal origin Sleep apnea NO DEVICE USED UNABLE TO TOLERATE CPAP Stage 3b chronic kidney disease Suprapubic catheter In place secondary to neurogenic bladder Surgical History H/O total knee replacement R/L History of back surgery MULTIPLE History of cardiac cath Multiple cardiac stents (x4 total)- most recent 3+ years ago History of carpal tunnel release of both wrists History of cataract surgery B/L History of colonoscopy History of lithotripsy History of lumbar fusion History of prostate surgery Partial prostatectomy History of thyroidectomy secondary to goiter History of tooth extraction All teeth S/P cystoscopy with ureteral stent placement last 05/2021 @ [facility] Dr. William Medrano- Cystoscopy, Bilateral retrograde pyelogram, Bilateral ureteral stent exchange, Left aspiration and culture S/P TURP S/P ureteral stent placement Cysto, B/L RPG, right ureteroscopy, stent exchange: 07/06/18: LMA#5 at [facility] Cysto stent exchange (11/2018) Cystoscopy, stent exchange, suprapubic catheter (04/30/20): MAC at [facility] Family History Father Diabetes Mother Coronary heart disease Hypertension Brother Seizure Other No family history of adverse response to anesthesia Denies family history of Ovarian cancer Prostate cancer Myocardial infarction Breast cancer Colorectal cancer Social History Smoking Status: Unknown if ever smoked Tobacco Type: Cigarettes Age Started Using Tobacco: 15; Age Quit Using Tobacco: 59; packs per day: 2; Second Hand Exposure: No; Hx Alcohol Use: No Hx Substance Use: No Preferred Language: Tamazight Communication Ability: Effective Visual Impairment: No Limitations Hearing Ability: Hard of Hearing Video Game Technician Required: No Beliefs That Will Affect Care: None marital status: Current Living Situation: Family Current Living Situation Comment: spouse and daughters current occupational status: retired How many Children do You have: 3 Other Information That Helps Us Care for You: No Feels Safe at Home: Yes Childhood Exposure to Second-Hand Smoke: No caffeine: Yes (Coffee 3 per day.) during the past year weight has: remained stable Dental Care, Regularly: No Physical Activity Frequency: Does not Exercise Seatbelt Use: always Sunscreen Use: No Assistive Devices: Walker and Wheelchair Physical Exam Physical Exam: Constitutional: tired-appearing, no acute distress HEENT: NCAT, mild conjunctival with crusted exudate noted bilaterally R>L, no scleral icterus CV: regular rhythm, heart sounds distant, extremities well-perfused, no LE edema Resp: lung sounds distant, generalized end-expiratory wheezes noted bilaterally and anteriorly/posteriorly, prolonged expiratory phase, mild basilar rhonchi noted, no crackles noted, breathing minimally labored GI: soft, nondistended, nontender, BS normoactive MSK: no calf tenderness, no flank tenderness Neuro: alert, oriented x4, no focal neurologic deficit appreciated Results & Data Results & Data ([facility]) Vital Signs (Past 12 Hours) Vital Signs Temp Pulse Pulse Resp BP BP Pulse Ox 09/29/21 18:49 85 20 94 09/29/21 16:35 37 C 85 24 194/99 H 94 09/29/21 16:25 37 C 88 20 194/99 H 94 09/29/21 16:24 85 95 O2 Del Method O2 Flow Rate 09/29/21 18:49 Nasal Cannula 3 09/29/21 16:35 Nasal Cannula 3 09/29/21 16:25 Nasal Cannula 4 09/29/21 16:24 Nasal Cannula 4 Supervising Physician Co-Signing Physician Notes Attending addendum: I have physically seen this patient, have supervised the medical residents activities, and agree with the H&P unless as otherwise noted. Assessment and Plan: Acute respiratory failure with hypoxia- Pulse ox in the mid 80s noted by EMS in the outpatient setting Chest x-ray with interstitial thickening question possibility of secondary bacterial infection Received vancomycin IV and cefepime IV from the ED Place on methylprednisolone 40 mg IV twice daily Duonebs every 4 hours while awake and every 2 hours when necessary. Guaifenesin extended release 12 mg p.o. twice daily Tessalon Perles 1 mg p.o. 3 times daily as needed Incentive spirometry, flutter valve Sputum gram stain and culture, viral versus bacterial process, viral plus secondary bacterial process Elevated highly sensitive troponin/CAD/history of TX/paroxysmal atrial fibrillation- Initial troponin 38.4, with repeat 41.9 The patient will be admitted to telemetry for serial cardiac enzymes, serial EKG's, cardiac rhythm monitoring and a 2-D echocardiogram with Dopplers. 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
[2021-09-29] MEDS ORDERED: ALBUT/IPRATROP 3MG/0.5MG NEB 3 ML VIAL NEB STA (20:29)
[2021-09-29] MEDS ORDERED: ALBUT/IPRATROP 3MG/0.5MG NEB 3 ML VIAL INH PRN (20:30)
[2021-09-29] MEDS ORDERED: DOCUSATE SODIUM 100 MG CAP PO PRN (20:30)
[2021-09-29] MEDS ORDERED: BENZONATATE 100 MG CAPSULE PO PRN (20:30)
[2021-09-29] MEDS ORDERED: SODIUM CHLORIDE 0.9% 1000ML 1,000 ML IV SCH (21:45)
[2021-09-29] MEDS ORDERED: SIMVASTATIN 80 MG TAB PO ONE (21:45)
[2021-09-29] MEDS ORDERED: BETHANECHOL CHL 25 MG TAB PO ONE (21:45)
[2021-09-29] MEDS ORDERED: buPROPion SR 100 MG TABCR PO ONE (21:45)
[2021-09-29] MEDS ORDERED: guaiFENesin 600 MG TABCR PO ONE (21:45)
[2021-09-29] MEDS ORDERED: GABAPENTIN 300 MG CAP PO ONE (21:45)
[2021-09-29] MEDS ORDERED: TAMSULOSIN HCL 0.4 MG CAP PO ONE (21:45)
[2021-09-29] MEDS ORDERED: DONEPEZIL HCL 10 MG TAB PO ONE (21:45)
[2021-09-29] MEDS ORDERED: APIXABAN 2.5 MG TAB PO ONE (21:45)
[2021-09-29] MEDS ORDERED: carvediloL 3.125 MG TAB PO ONE (21:45)
[2021-09-29] MEDS ORDERED: MEMANTINE HCL 10 MG TAB PO ONE (21:45)
[2021-09-30] MEDS: CIPROFLOXACIN HCL 0.3% OP SOLN 2.5 ML BTL OPB SCH ×5 (00:12→20:10)
--- NOTE | 2021-09-30 06:04 | Billing Data ---
Date of Service September 30, 2021 Coding Level of Care Code 88187 Initial Inpt Care Lvl 3
[2021-09-30] MEDS: FAMOTIDINE 40 MG TABLET PO SCH (06:10)
[2021-09-30] MEDS: LEVOTHYROXINE SODIUM 112 MCG TABLET PO SCH (06:10)
[2021-09-30] MEDS ORDERED: LEVOTHYROXINE SODIUM 112 MCG TABLET PO SCH (06:30)
[2021-09-30 07:45] LABS: Hematocrit (blood only) 36.4 % (40.1-51.0); Hemoglobin 11.8 g/dl (14.0-18.0); Immature Granulocytes # (auto) 0.08 K/uL (0.00-0.02); Immature Granulocytes % (auto) 1.2 %; Lymphocytes # (auto) 0.74 K/uL (1.2-3.4); Lymphocytes % (auto) 11.1 %; Mean Corpuscular Hemoglobin 30.2 pg (25.0-34.0); Mean Corpuscular Hgb Conc 32.4 g/dL (32.0-36.0); Mean Corpuscular Volume 93.1 fL (80.0-100.0); Mean Platelet Volume 10.3 fL (9.4-12.4); Monocytes # (auto) 0.41 K/uL (0.24-0.82); Monocytes % (auto) 6.2 %; Neutrophils # (auto) 5.41 K/uL (1.4-6.5); Neutrophils % (auto) 81.5 %; Platelet Count 173 K/uL (130-400); RDW Coefficient of Variation 14.1 % (11.5-14.5); RDW Standard Deviation 47.8 fL (36.4-46.3); Red Blood Count 3.91 M/uL (4.63-6.08); White Blood Count 6.64 K/ul (4.8-10.8)
[2021-09-30 08:03] LABS: Calcium 8.1 mg/dl (8.5-10.1); Creatinine Clr Calc Pharmacy 37.6 ml/min; Est GFR (African American) 45.5 ml/min; Est GFR (Non-African American) 39.2 ml/min
[2021-09-30] MEDS: carvediloL 3.125 MG TAB PO SCH ×2 (09:28→17:19)
[2021-09-30] MEDS: APIXABAN 2.5 MG TAB PO SCH ×2 (09:29→20:10)
[2021-09-30] MEDS: BETHANECHOL CHL 25 MG TAB PO SCH ×4 (09:29→20:10)
[2021-09-30] MEDS: buPROPion SR 100 MG TABCR PO SCH ×2 (09:29→20:10)
[2021-09-30] MEDS: ISOSORBIDE MONO EXTENDED REL 30 MG TABCR PO SCH (09:30)
[2021-09-30] MEDS: FERROUS SULFATE 325 MG TAB PO SCH (09:30)
[2021-09-30] MEDS: MEMANTINE HCL 10 MG TAB PO SCH ×2 (09:30→20:09)
[2021-09-30] MEDS: guaiFENesin 600 MG TABCR PO SCH ×2 (09:30→20:09)
[2021-09-30] MEDS: methylPREDNISolone 40 MG in SYRINGE 0 ML IV SCH ×2 (09:31→20:09)
--- NOTE | 2021-09-30 09:57 | Hospitalist Progress Note ---
Date of Service September 30, 2021 Assessment & Plan (1) Acute respiratory failure with hypoxia: Plan: 81yo male with a history of Alzheimer's, recurrent CAUTI, paroxysmal afib, CAD with NM, CKD, iron-deficiency anemia, hypothyroidism, CHOLO, MDD, and recent covid infection presents with shortness of breath for about two weeks, then found by EMS to be hypoxic to the mid-80s. Acute hypoxic respiratory failure Patient noted to by hypoxic to mid-80s by EMS, though spO2 was adequate on 4L NC upon arrival Patient afebrile, no tachycardia or tachypnea, procalcitonin negative CXR: mild interstitial thickening, interval development of right lung hazy opacities concerning for asymmetric pulmonary edema vs developing pneumonia; cardiomegaly and trace left pleural effusion persisting from prior imaging Likely multifactorial given history of HFpEF, COPD, recent COVID-19 diagnosis For that reason will treat for COPD exacerbation and CHF exacerbation (see below) Patient received vanc/cefepime in ED Continue supplemental oxygen as needed, wean as indicated Guaifenesin, tessalon perles Incentive spirometry, flutter valve, PT/OT Trend CBC COPD exacerbation Methylprednisolone 40mg IV bid Duonebs scheduled q4h Azithromycin 500 mg today, 250mg days 2-5 for full course Acute on Chronic CHF Exacerbation Patient appeared fluid overloaded based on physical exam Due to CKD history and being diuretic cinthia, only gave 20 mg of Lasix Accurate I's and O's Daily weights Daily BMP Conjunctivitis Ciprofloxicin oph two drops each eye q4h ordered Warm compress q4h ordered Continue to monitor Bacteriuria, history of CAUTI Patient with suprapubic catheter and history of CAUTI Patient with only mild pericatheter irritation which he says is not different from baseline Afebrile, no leukocytosis, no flank tenderness, procal negative Given the above, suspect UA findings represent colonization rather than infection Urine culture pending Encourage PO intake to maintain adequate hydration CAD, history of NM, elevated hsTroponin Initial hsTroponin elevated to 38.4, repeat 41.9 - no further repeat values indicated based on small delta EKG: junctional rhythm per automated read, rate 85, no overt ischemic change Suspect elevated hsTroponin secondary to demand ischemia from afib vs hypoxia with CKD Continue home regimen Paroxysmal atrial fibrillation Not in afib on admission, rate not elevated Continue home eliquis, beta blockade CKD3 Creatinine on admission 1.78 which appears to be near baseline Trend BMP, avoid unnecessary nephrotoxins Alzheimer's: continue home regimen Iron-deficiency anemia: mild, MCV wnl, continue home iron supplementation CHOLO, MDD: continue home regimen Hypothyroidism: continue home regimen FEN: heart-healthy diet, low-sodium Code status: full code DVT ppx: home eliquis PT/OT: ordered Dispo: med/telemetry with COVID precautions (2) AICD (automatic cardioverter/defibrillator) present: (3) Anemia: (4) CAD (coronary artery disease): (5) Catheter-associated urinary tract infection: (6) COVID-19: (7) Dementia: (8) Dyslipidemia: (9) History of NM (myocardial infarction): (10) Nocturnal hypoxia: (11) Paroxysmal atrial fibrillation: (12) Stage 3b chronic kidney disease: (13) Chronic diastolic heart failure: Admission and Anticipated Discharge Date Admission Date: September 29, 2021 Supervising Physician Co-Signing Physician Notes Resident Physician Supervision Note: I independently interviewed and examined the patient and verified the delaney history and physical, reviewed labs and image studies and agree with resident Dr. Navarro findings and care plan. Subjective Patient seen at bedside this morning. No acute vents reported overnight. Patient has a history of Alzheimer's dementia and is a poor historian and has tangential thoughts and discussions. Patient informs me that he feels better after being put on nasal cannula and is less short of breath. Denies any pain anywhere. Called patient's this morning and she reports that last night and early yesterday afternoon patient had increasing difficulty with ambulation and shortness of breath more so than usual. Otherwise patient's has nothing else to report. Review of Systems Review of Systems: All systems reviewed & are unremarkable except as noted in HPI & below Physical Exam Constitutional: well developed and + ill appearing; no acute distress Eyes: + conjunctival abnormality (Bilateral eye crusting with conjunctival erythema on the right.) and + anicteric sclerae Neck: trachea midline, no thyromegaly Respiratory: normal respiratory effort Auscultation: + crackles and + rhonchi Cardiovascular: Rate/Rhythm: regular rate and regular rhythm Heart Sounds: + murmur (3 out of 6 systolic murmur) Vessels: + JVD Extremities: + edema (Trace lower extremity bilaterally) Gastrointestinal (Abdomen): normal bowel sounds, soft, nontender, no hepatosplenomegaly Musculoskeletal: 4/5 muscle strength throughout in upper and lower extremities Skin: no rashes, warm and dry Neurologic: moves all extremities Psychiatric: Orientation: alert Thought Process: + tangential thought process Genitourinary: Suprapubic catheter in place with some surrounding erythema without hyperthermia. Straw-colored urine. Results & Data Results & Data ([facility]) Vital Signs (Past 12 Hours) Vital Signs Temp Pulse Resp BP BP Pulse Ox O2 Del Method 09/30/21 09:26 36.8 C 59 L 18 172/95 H 96 Nasal Cannula 09/30/21 03:00 Nasal Cannula 09/30/21 03:00 36.5 C 60 22 174/90 H 93 Nasal Cannula 09/30/21 00:46 Nasal Cannula 09/30/21 00:32 63 20 159/85 H 95 Nasal Cannula 09/30/21 00:32 95 Nasal Cannula 09/29/21 22:27 82 18 181/106 H 93 Room Air O2 Flow Rate 09/30/21 09:26 3 09/30/21 03:00 4 09/30/21 03:00 4 09/30/21 00:46 4 09/30/21 00:32 4 09/30/21 00:32 4 09/29/21 22:27
[2021-09-30] MEDS ORDERED: FUROSEMIDE INJ 20 MG/2 ML VIAL IV ONE (10:15)
[2021-09-30] MEDS ORDERED: AZITHROMYCIN 250 MG TAB PO ONE (11:30)
--- NOTE | 2021-09-30 12:17 | XCELERA ---
[id number] \\[id number]
--- NOTE | 2021-09-30 12:28 | Electrocardiogram Report ---
Test Reason : Blood Pressure : / mmHG Vent. Rate : 085 BPM Atrial Rate : 088 BPM P-R Int : 000 ms QRS Dur : 088 ms QT Int : 390 ms P-R-T Axes : 000 -43 076 degrees QTc Int : 464 ms Poor data quality, interpretation may be adversely affected Probable Sinus rhythm Left axis deviation Abnormal ECG When compared with ECG of 19-SEP-2021 16:22, Criteria for Inferior infarct are no longer Present Confirmed by Marv López ([id number]) on 09/30/2021 12:27:39 PM Referred By: REFERRED SELF Confirmed By:Marv López
[2021-09-30] MEDS: SIMVASTATIN 80 MG TAB PO SCH (20:08)
[2021-09-30] MEDS: TAMSULOSIN HCL 0.4 MG CAP PO SCH (20:08)
[2021-09-30] MEDS: DONEPEZIL HCL 10 MG TAB PO SCH (20:09)
[2021-09-30] MEDS: GABAPENTIN 300 MG CAP PO SCH (20:09)
[2021-10-01] MEDS ORDERED: ACETAMINOPHEN 1,000 MG/100 ML VIAL IV STA (02:48)
[2021-10-01] MEDS ORDERED: traMADol HCL 50 MG TABLET PO STA (04:17)
[2021-10-01] MEDS: FAMOTIDINE 40 MG TABLET PO SCH (04:38)
[2021-10-01] MEDS: LEVOTHYROXINE SODIUM 112 MCG TABLET PO SCH (04:39)
[2021-10-01] MEDS: CIPROFLOXACIN HCL 0.3% OP SOLN 2.5 ML BTL OPB SCH ×4 (07:49→21:37)
[2021-10-01] MEDS: APIXABAN 2.5 MG TAB PO SCH ×2 (07:49→21:39)
[2021-10-01] MEDS: carvediloL 3.125 MG TAB PO SCH ×2 (07:50→16:33)
[2021-10-01] MEDS: AZITHROMYCIN 250 MG TAB PO SCH (07:50)
[2021-10-01] MEDS: buPROPion SR 100 MG TABCR PO SCH ×2 (07:51→21:38)
[2021-10-01] MEDS: BETHANECHOL CHL 25 MG TAB PO SCH ×4 (07:51→21:39)
[2021-10-01] MEDS: FERROUS SULFATE 325 MG TAB PO SCH (07:51)
[2021-10-01] MEDS: guaiFENesin 600 MG TABCR PO SCH ×2 (07:52→21:38)
[2021-10-01] MEDS: MEMANTINE HCL 10 MG TAB PO SCH ×2 (07:52→21:38)
[2021-10-01] MEDS: methylPREDNISolone 40 MG in SYRINGE 0 ML IV SCH ×2 (07:52→21:37)
[2021-10-01] MEDS: ISOSORBIDE MONO EXTENDED REL 30 MG TABCR PO SCH (07:52)
[2021-10-01 07:57] LABS: Basophils # (auto) 0.01 K/uL (0-0.2); Basophils % (auto) 0.1 %; Hematocrit (blood only) 39.5 % (40.1-51.0); Immature Granulocytes # (auto) 0.05 K/uL (0.00-0.02); Immature Granulocytes % (auto) 0.5 %; Lymphocytes # (auto) 0.64 K/uL (1.2-3.4); Lymphocytes % (auto) 6.7 %; Mean Corpuscular Hemoglobin 30.3 pg (25.0-34.0); Mean Corpuscular Hgb Conc 32.9 g/dL (32.0-36.0); Mean Corpuscular Volume 92.1 fL (80.0-100.0); Mean Platelet Volume 10.4 fL (9.4-12.4); Monocytes # (auto) 0.71 K/uL (0.24-0.82); Monocytes % (auto) 7.4 %; Neutrophils # (auto) 8.17 K/uL (1.4-6.5); Neutrophils % (auto) 85.3 %; Platelet Count 182 K/uL (130-400); RDW Coefficient of Variation 13.6 % (11.5-14.5); RDW Standard Deviation 46.1 fL (36.4-46.3); Red Blood Count 4.29 M/uL (4.63-6.08); White Blood Count 9.58 K/ul (4.8-10.8)
[2021-10-01 08:18] LABS: Calcium 8.1 mg/dl (8.5-10.1); Creatinine Clr Calc Pharmacy 28.8 ml/min; Est GFR (African American) 33.2 ml/min; Est GFR (Non-African American) 28.6 ml/min; Potassium 3.6 mmol/L (3.5-5.1)
--- NOTE | 2021-10-01 09:24 | Hospitalist Progress Note ---
Date of Service October 01, 2021 Assessment & Plan (1) Acute respiratory failure with hypoxia: Plan: 81yo male with a history of Alzheimer's, recurrent CAUTI, paroxysmal afib, CAD with [place], CKD, iron-deficiency anemia, hypothyroidism, CHOLO, MDD, and recent covid infection presents with shortness of breath for about two weeks, then found by EMS to be hypoxic to the mid-80s. Acute hypoxic respiratory failure Patient noted to by hypoxic to mid-80s by EMS, though spO2 was adequate on 4L NC upon arrival Patient afebrile, no tachycardia or tachypnea, procalcitonin negative, blood culture negative after 24 hours CXR: mild interstitial thickening, interval development of right lung hazy opacities concerning for asymmetric pulmonary edema vs developing pneumonia; cardiomegaly and trace left pleural effusion persisting from prior imaging Likely multifactorial given history of HFpEF, COPD, recent COVID-19 diagnosis Continue supplemental oxygen as needed, wean as indicated, overall presentation seems to be improved compared to yesterday, currently on 1 L nasal cannula CHANELLE Patient has documented severe obstructive sleep apnea Nonadherent with CPAP at home and refuses here Uses 3 L nasal cannula at home at nighttime We will increase oxygen at night as needed for CHANELLE We will encourage CPAP use daily and if refuses oxygen as above COPD exacerbation Possible pneumonia treated with Azithromycin Methylprednisolone 40mg IV bid Duonebs scheduled q6h Patient received vanc/cefepime in ED. Azithromycin 500 mg on 09/30, 250mg October 01 for full course Guaifenesin, tessalon perles Incentive spirometry, flutter valve, PT/OT Chronic Diastolic dysfunction. Received 20mgs lasix with significant rise in creatinine. Due to CKD history and being diuretic cinthia, only gave 20 mg of Lasix on 09/30 No further diuretics. monitor bmp. Conjunctivitis Ciprofloxicin oph two drops each eye q4hwa ordered for total 5 days. Today is day 2 of 5 Warm compress q4h ordered Continue to monitor Bacteriuria, history of CAUTI Patient with suprapubic catheter and history of CAUTI Patient with only mild pericatheter irritation which he says is not different from baseline Afebrile, no leukocytosis, no flank tenderness, procal negative Given the above, suspect UA findings represent colonization rather than infection Urine culture so far has grown Monalisa albicans but no bacteria currently. Encourage PO intake to maintain adequate hydration CAD, history of MD, elevated hsTroponin Initial hsTroponin elevated to 38.4, repeat 41.9 - no further repeat values indicated based on small delta EKG: junctional rhythm per automated read, rate 85, no overt ischemic change Suspect elevated hsTroponin secondary to demand ischemia from afib vs hypoxia with CKD Continue home regimen Paroxysmal atrial fibrillation Not in afib on admission, rate not elevated Continue home eliquis, beta blockade CKD3 Creatinine on admission 1.78 which appears to be near baseline, now 2.09. We will hold off of diuretics for now. Trend BMP, avoid unnecessary nephrotoxins Alzheimer's: continue home regimen Iron-deficiency anemia: mild, MCV wnl, continue home iron supplementation CHOLO, MDD: continue home regimen Hypothyroidism: continue home regimen FEN: heart-healthy diet, low-sodium Code status: full code DVT ppx: home eliquis PT/OT: ordered Dispo: med/telemetry with COVID precautions (2) AICD (automatic cardioverter/defibrillator) present: (3) Anemia: (4) CAD (coronary artery disease): (5) Catheter-associated urinary tract infection: (6) COVID-19: (7) Dementia: (8) Dyslipidemia: (9) History of [place] (myocardial infarction): (10) Nocturnal hypoxia: (11) Paroxysmal atrial fibrillation: (12) Stage 3b chronic kidney disease: (13) Chronic diastolic heart failure: Admission and Anticipated Discharge Date Admission Date: September 29, 2021 Supervising Physician Co-Signing Physician Notes Resident Physician Supervision Note: I independently interviewed and examined the patient and verified the delaney histo ry and physical, reviewed labs and image studies and agree with resident Dr. Navarro findings and care plan. Subjective Patient seen at bedside this morning. No acute events reported overnight. Patient reports he is feeling overall well. Again continues to have tangential thoughts and discussion about various topics. I did ask him if he feels better than yesterday and he reports that he does and that he is comfortable currently. Otherwise reports that he is not in any pain or discomfort. No other complaints at this time. Review of Systems Review of Systems: Unobtainable due to cognitive status Physical Exam Constitutional: well developed and + ill appearing; no acute distress Eyes: + anicteric sclerae Neck: trachea midline, no thyromegaly Respiratory: normal respiratory effort Auscultation: + rhonchi (Improved from yesterday.) Cardiovascular: Rate/Rhythm: regular rate and regular rhythm Heart Sounds: + murmur (3 out of 6 systolic murmur) Vessels: + JVD Extremities: + edema (Trace lower extremity bilaterally) Gastrointestinal (Abdomen): normal bowel sounds, soft, nontender, no hepatosplenomegaly Skin: no rashes, warm and dry Neurologic: moves all extremities Psychiatric: Orientation: alert Thought Process: + tangential thought process Results & Data Results & Data ([facility]) Vital Signs (Past 12 Hours) Vital Signs Temp Pulse Resp BP BP Pulse Ox O2 Del Method 10/01/21 07:45 36.7 C 57 L 20 169/87 H 96 10/01/21 06:24 97 Nasal Cannula 10/01/21 04:20 165/93 H 10/01/21 02:38 36.3 C L 67 22 201/126 H 181/94 H 96 Nasal Cannula 09/30/21 23:36 36.7 C 67 20 179/99 H 96 Nasal Cannula O2 Flow Rate 10/01/21 07:45 10/01/21 06:24 1 10/01/21 04:20 10/01/21 02:38 2 09/30/21 23:36 2
[2021-10-01] MEDS: ALBUT/IPRATROP 3MG/0.5MG NEB 3 ML VIAL INH SCH ×3 (11:20→19:41)
[2021-10-01] MEDS: SIMVASTATIN 80 MG TAB PO SCH (21:37)
[2021-10-01] MEDS: TAMSULOSIN HCL 0.4 MG CAP PO SCH (21:38)
[2021-10-01] MEDS: GABAPENTIN 300 MG CAP PO SCH (21:39)
[2021-10-01] MEDS: DONEPEZIL HCL 10 MG TAB PO SCH (21:40)
[2021-10-02] MEDS: ALBUT/IPRATROP 3MG/0.5MG NEB 3 ML VIAL INH SCH ×4 (00:12→19:27)
[2021-10-02] MEDS: FAMOTIDINE 40 MG TABLET PO SCH (05:40)
[2021-10-02] MEDS: LEVOTHYROXINE SODIUM 112 MCG TABLET PO SCH (05:41)
[2021-10-02 09:05] LABS: Basophils # (auto) 0.01 K/uL (0-0.2); Basophils % (auto) 0.1 %; Hematocrit (blood only) 41.3 % (40.1-51.0); Hemoglobin 13.1 g/dl (14.0-18.0); Immature Granulocytes # (auto) 0.05 K/uL (0.00-0.02); Immature Granulocytes % (auto) 0.5 %; Lymphocytes # (auto) 0.67 K/uL (1.2-3.4); Lymphocytes % (auto) 6.1 %; Mean Corpuscular Hgb Conc 31.7 g/dL (32.0-36.0); Mean Corpuscular Volume 94.5 fL (80.0-100.0); Mean Platelet Volume 10.6 fL (9.4-12.4); Monocytes # (auto) 0.43 K/uL (0.24-0.82); Monocytes % (auto) 3.9 %; Neutrophils # (auto) 9.75 K/uL (1.4-6.5); Neutrophils % (auto) 89.4 %; Platelet Count 196 K/uL (130-400); RDW Coefficient of Variation 13.8 % (11.5-14.5); RDW Standard Deviation 48.6 fL (36.4-46.3); Red Blood Count 4.37 M/uL (4.63-6.08); White Blood Count 10.91 K/ul (4.8-10.8)
[2021-10-02] MEDS: FERROUS SULFATE 325 MG TAB PO SCH (09:08)
[2021-10-02] MEDS: APIXABAN 2.5 MG TAB PO SCH ×2 (09:08→20:32)
[2021-10-02] MEDS: carvediloL 3.125 MG TAB PO SCH ×2 (09:08→17:16)
[2021-10-02] MEDS: ISOSORBIDE MONO EXTENDED REL 30 MG TABCR PO SCH (09:08)
[2021-10-02] MEDS: AZITHROMYCIN 250 MG TAB PO SCH (09:08)
[2021-10-02] MEDS: methylPREDNISolone 40 MG in SYRINGE 0 ML IV SCH ×2 (09:08→20:31)
[2021-10-02] MEDS: guaiFENesin 600 MG TABCR PO SCH ×2 (09:08→20:31)
[2021-10-02] MEDS: buPROPion SR 100 MG TABCR PO SCH ×2 (09:08→20:31)
[2021-10-02] MEDS: BETHANECHOL CHL 25 MG TAB PO SCH ×4 (09:08→20:30)
[2021-10-02] MEDS: MEMANTINE HCL 10 MG TAB PO SCH ×2 (09:08→20:30)
[2021-10-02] MEDS: CIPROFLOXACIN HCL 0.3% OP SOLN 2.5 ML BTL OPB SCH ×4 (09:09→20:21)
[2021-10-02 10:03] LABS: BUN Creatinine Ratio 24.4 (10-20); Est GFR (African American) 34.8 ml/min
[2021-10-02 10:36] LABS: Calcium 8.5 mg/dl (8.5-10.1)
--- NOTE | 2021-10-02 16:25 | Hospitalist Progress Note ---
Date of Service October 02, 2021 Assessment & Plan (1) Acute respiratory failure with hypoxia: Plan: 81yo male with a history of Alzheimer's, recurrent CAUTI, paroxysmal afib, CAD with [place], CKD, iron-deficiency anemia, hypothyroidism, CHOLO, MDD, and recent covid infection presents with shortness of breath for about two weeks, then found by EMS to be hypoxic to the mid-80s. Acute hypoxic respiratory failure Patient noted to by hypoxic to mid-80s by EMS, though spO2 was adequate on 4L NC upon arrival Patient afebrile, no tachycardia or tachypnea, procalcitonin negative, blood culture negative after 24 hours CXR: mild interstitial thickening, interval development of right lung hazy opacities concerning for asymmetric pulmonary edema vs developing pneumonia; cardiomegaly and trace left pleural effusion persisting from prior imaging Likely multifactorial given history of HFpEF, COPD, recent COVID-19 diagnosis For that reason will treat for COPD exacerbation and CHF exacerbation (see below) Patient received vanc/cefepime in ED, these were stopped on admission. Continue supplemental oxygen as needed, wean as indicated, overall presentation seems to be improved compared to yesterday, currently on 1 L nasal cannula Guaifenesin, tessalon perles Incentive spirometry, flutter valve, PT/OT-recommending group home with rehab. We will begin looking for placement when he is medically cleared. Trend CBC, noticed a increase in white blood cell count likely due to IV steroids. Continue to monitor. CHANELLE Patient has documented severe obstructive sleep apnea Nonadherent with CPAP at home and refuses here Uses 3 L nasal cannula at home at nighttime We will increase oxygen at night as needed for CHANELLE We will encourage CPAP use daily and if refuses oxygen as above COPD exacerbation Methylprednisolone 40mg IV bid Duonebs scheduled q6h Azithromycin 500 mg on 09/30, 250mg October 01 for full course Acute on Chronic CHF Exacerbation Patient appeared fluid overloaded based on physical exam Due to CKD history and being diuretic cinthia, only gave 20 mg of Lasix on 09/30 Creatinine bump to 2.09 after first dose, volume status improved, so we will hold off on additional Lasix for now. Accurate I's and O's: Net loss of 900 mL in the past since admission Daily weights Daily BMP Conjunctivitis Ciprofloxicin oph two drops each eye q4hwa ordered for total 5 days. Today is day 3 of 5 Warm compress q4h ordered Continue to monitor Bacteriuria, history of CAUTI Patient with suprapubic catheter and history of CAUTI Patient with only mild pericatheter irritation which he says is not different from baseline Afebrile, no leukocytosis, no flank tenderness, procal negative Given the above, suspect UA findings represent colonization rather than infection Urine culture so far has grown Monalisa albicans but no bacteria currently. Encourage PO intake to maintain adequate hydration CAD, history of [place], elevated hsTroponin Initial hsTroponin elevated to 38.4, repeat 41.9 - no further repeat values indicated based on small delta EKG: junctional rhythm per automated read, rate 85, no overt ischemic change Suspect elevated hsTroponin secondary to demand ischemia from afib vs hypoxia with CKD Continue home regimen Paroxysmal atrial fibrillation Not in afib on admission, rate not elevated Continue home eliquis, beta blockade CKD3 Creatinine on admission 1.78 which appears to be near baseline, now 2.01. We will hold off of diuretics for now. Trend BMP, avoid unnecessary nephrotoxins Alzheimer's: continue home regimen Iron-deficiency anemia: mild, MCV wnl, continue home iron supplementation CHOLO, MDD: continue home regimen Hypothyroidism: continue home regimen FEN: heart-healthy diet, low-sodium Code status: full code DVT ppx: home eliquis PT/OT: ordered Dispo: med/telemetry with COVID precautions, discharge to SNF facility when able. Patient is not COVID vaccinated which makes placement very difficult. (2) AICD (automatic cardioverter/defibrillator) present: (3) Anemia: (4) CAD (coronary artery disease): (5) Catheter-associated urinary tract infection: (6) COVID-19: (7) Dementia: (8) Dyslipidemia: (9) History of [place] (myocardial infarction): (10) Nocturnal hypoxia: (11) Paroxysmal atrial fibrillation: (12) Stage 3b chronic kidney disease: (13) Chronic diastolic heart failure: Admission and Anticipated Discharge Date Admission Date: September 29, 2021 Supervising Physician Co-Signing Physician Notes Resident Physician Supervision Note: I independently interviewed and examined the patient and verified the delaney hist ory and physical, reviewed labs and image studies and agree with resident Dr. Navarro findings and care plan. acute hypoxic respiratory failure likely from possible pneumonia/bronchitis. - now on 3L NC oxygen - continue azithromycin. - wean steroids Subjective Patient seen at bedside this morning. Unfortunately patient continues to have low oxygen saturation at night due to severe sleep apnea that he refuses to wear a CPAP for. Last night I understand he went down to the 50s for his oxygen saturation and had to be put on 5 L nasal cannula. Explained this problem to the patient and how this can have long-term effects on his heart including high blood pressure, abnormal heart rhythms, and pulmonary hypertension. Patient of course seems understanding of the time but shortly after explaining this, he has tangential thoughts about "taking everything a day at a time and how he is happy that he is here". It does not feel like he is taking his sleep apnea seriously. Otherwise patient tells me that he is feeling better and has no other complaints at this time. Review of Systems Review of Systems: All systems reviewed & are unremarkable except as noted in HPI & below Physical Exam Constitutional: well developed and + ill appearing; no acute distress Eyes: + conjunctival abnormality (Bilateral eye crusting with conjunctival erythema on the right.) and + anicteric sclerae Neck: trachea midline, no thyromegaly Respiratory: normal respiratory effort Auscultation: + crackles and + rhonchi (Improved from yesterday.) Cardiovascular: Rate/Rhythm: regular rate and regular rhythm Heart Sounds: + murmur (3 out of 6 systolic murmur) Vessels: + JVD Extremities: + edema (Trace lower extremity bilaterally) Gastrointestinal (Abdomen): normal bowel sounds, soft, nontender, no hepatosplenomegaly Skin: no rashes, warm and dry Neurologic: moves all extremities Psychiatric: Orientation: alert Thought Process: + tangential thought process Results & Data Results & Data ([facility]) Vital Signs (Past 12 Hours) Vital Signs Temp Pulse Pulse Resp BP Pulse Ox O2 Del Method 10/02/21 15:00 54 L 10/02/21 15:09 36.4 C L 60 165/84 H 95 Nasal Cannula 10/02/21 13:06 63 16 97 Nasal Cannula 10/02/21 08:00 Nasal Cannula 10/02/21 10:47 36.6 C 62 18 151/80 H 95 Nasal Cannula 10/02/21 07:57 36.5 C 62 19 161/80 H 94 Nasal Cannula 10/02/21 07:00 53 L 10/02/21 07:30 68 18 93 Nasal Cannula O2 Flow Rate 08/24/22 15:00 10/02/21 15:09 3 10/02/21 13:06 1 10/02/21 08:00 3 10/02/21 10:47 1 10/02/21 07:57 2 10/02/21 07:00 10/02/21 07:30 3
[2021-10-02] MEDS: SIMVASTATIN 80 MG TAB PO SCH (20:30)
[2021-10-02] MEDS: TAMSULOSIN HCL 0.4 MG CAP PO SCH (20:30)
[2021-10-02] MEDS: GABAPENTIN 300 MG CAP PO SCH (20:31)
[2021-10-02] MEDS: DONEPEZIL HCL 10 MG TAB PO SCH (20:32)
[2021-10-03] MEDS: ALBUT/IPRATROP 3MG/0.5MG NEB 3 ML VIAL INH SCH ×2 (00:21→07:07)
[2021-10-03] MEDS: LEVOTHYROXINE SODIUM 112 MCG TABLET PO SCH (05:33)
[2021-10-03] MEDS: FAMOTIDINE 40 MG TABLET PO SCH (05:33)
[2021-10-03 08:08] LABS: Basophils # (auto) 0.01 K/uL (0-0.2); Basophils % (auto) 0.1 %; Hematocrit (blood only) 37.2 % (40.1-51.0); Hemoglobin 12.2 g/dl (14.0-18.0); Immature Granulocytes # (auto) 0.04 K/uL (0.00-0.02); Immature Granulocytes % (auto) 0.4 %; Mean Corpuscular Hgb Conc 32.8 g/dL (32.0-36.0); Mean Corpuscular Volume 91.6 fL (80.0-100.0); Mean Platelet Volume 10.6 fL (9.4-12.4); Monocytes # (auto) 0.41 K/uL (0.24-0.82); Monocytes % (auto) 4.6 %; Neutrophils % (auto) 84.9 %; Platelet Count 177 K/uL (130-400); RDW Coefficient of Variation 13.9 % (11.5-14.5); RDW Standard Deviation 47.2 fL (36.4-46.3); Red Blood Count 4.06 M/uL (4.63-6.08); White Blood Count 8.96 K/ul (4.8-10.8)
[2021-10-03] MEDS: CIPROFLOXACIN HCL 0.3% OP SOLN 2.5 ML BTL OPB SCH ×4 (08:24→20:35)
[2021-10-03] MEDS: ISOSORBIDE MONO EXTENDED REL 30 MG TABCR PO SCH (08:29)
[2021-10-03] MEDS: guaiFENesin 600 MG TABCR PO SCH ×2 (08:29→20:39)
[2021-10-03] MEDS: FERROUS SULFATE 325 MG TAB PO SCH (08:29)
[2021-10-03] MEDS: buPROPion SR 100 MG TABCR PO SCH ×2 (08:29→20:39)
[2021-10-03] MEDS: carvediloL 3.125 MG TAB PO SCH ×2 (08:29→17:01)
[2021-10-03] MEDS: AZITHROMYCIN 250 MG TAB PO SCH (08:29)
[2021-10-03] MEDS: APIXABAN 2.5 MG TAB PO SCH ×2 (08:29→20:39)
[2021-10-03] MEDS: BETHANECHOL CHL 25 MG TAB PO SCH ×4 (08:29→20:38)
[2021-10-03] MEDS: MEMANTINE HCL 10 MG TAB PO SCH ×2 (08:30→20:39)
[2021-10-03] MEDS: methylPREDNISolone 40 MG in SYRINGE 0 ML IV SCH (08:30)
[2021-10-03 08:42] LABS: BUN Creatinine Ratio 27.9 (10-20); Calcium 8.4 mg/dl (8.5-10.1); Creatinine Clr Calc Pharmacy 33.7 ml/min; Est GFR (Non-African American) 34.5 ml/min; Potassium 4.1 mmol/L (3.5-5.1)
[2021-10-03] MEDS ORDERED: ALBUT/IPRATROP 3MG/0.5MG NEB 3 ML VIAL INH PRN (09:11)
[2021-10-03] MEDS: UMECLIDINIUM/VILANTEROL 62.5/25MCG 7 PUFFS/INHALER INH SCH (11:14)
--- NOTE | 2021-10-03 16:41 | Hospitalist Progress Note ---
Date of Service October 03, 2021 Assessment & Plan (1) Acute respiratory failure with hypoxia: Plan: 81yo male with a history of Alzheimer's, recurrent CAUTI, paroxysmal afib, CAD with CT, CKD, iron-deficiency anemia, hypothyroidism, CHOLO, MDD, and recent covid infection presents with shortness of breath for about two weeks, then found by EMS to be hypoxic to the mid-80s. Acute hypoxic respiratory failure, improved Patient noted to by hypoxic to mid-80s by EMS, though spO2 was adequate on 4L NC upon arrival Patient afebrile, no tachycardia or tachypnea, procalcitonin negative, blood culture negative after 24 hours CXR: mild interstitial thickening, interval development of right lung hazy opacities concerning for asymmetric pulmonary edema vs developing pneumonia; cardiomegaly and trace left pleural effusion persisting from prior imaging Likely multifactorial given history of HFpEF, COPD, recent COVID-19 diagnosis For that reason will treat for COPD exacerbation and CHF exacerbation (see below) Patient received vanc/cefepime in ED, these were stopped on admission. Continue supplemental oxygen as needed, wean as indicated, overall presentation seems to be improved compared to yesterday, currently on 1 L nasal cannula Guaifenesin, tessalon perles Incentive spirometry, flutter valve, PT/OT-recommending residential with rehab. We will begin looking for placement when he is medically cleared. Trend CBC, noticed a increase in white blood cell count likely due to IV steroids. Continue to monitor. Gross hematuria In the setting of suprapubic catheter Differential includes catheter irritation/trauma versus cystitis among others Catheter last changed on July 26 per chart review UA on admission infected appearing but has been noted in urology visits that he is colonized and will always show positive UA results Culture has been significant for Monalisa infection but this has always been present on previous cultures Given the above, urology consult placed, appreciate recommendations CHANELLE Patient has documented severe obstructive sleep apnea Nonadherent with CPAP at home and refuses here Uses 3 L nasal cannula at home at nighttime We will increase oxygen at night as needed for CHANELLE We will encourage CPAP use daily and if refuses oxygen as above COPD exacerbation, improved Started Anoro Ellipta blister once a day on 10/03 for maintenance COPD medication Methylprednisolone 40mg IV bid - switched to q24hrs. Duonebs changed to every 6 hours as needed Azithromycin 500 mg on 8/22, 250mg October 01 for full course Chronic HFpEF Patient appeared fluid overloaded based on physical exam on admission Due to CKD history and being diuretic cinthia, only gave 20 mg of Lasix on 09/30 for which he had lost 900 mLs of fluid in the first 24 hours Creatinine bumped to 2.09 after first dose, volume status improved, so held off any additional diuretic Accurate I's and O's Daily weights Daily BMP Conjunctivitis Ciprofloxicin oph two drops each eye q4hwa ordered for total 5 days. Today is day 3 of 5 Warm compress q4h ordered Continue to monitor Bacteriuria, history of CAUTI Patient with suprapubic catheter and history of CAUTI Patient with only mild pericatheter irritation which he says is not different from baseline Afebrile, no leukocytosis, no flank tenderness, procal negative Given the above, suspect UA findings represent colonization rather than infec tion Urine culture so far has grown Monalisa albicans but no bacteria currently. See plan above Encourage PO intake to maintain adequate hydration CAD, history of CT, elevated hsTroponin Initial hsTroponin elevated to 38.4, repeat 41.9 - no further repeat values indicated based on small delta EKG: junctional rhythm per automated read, rate 85, no overt ischemic change Suspect elevated hsTroponin secondary to demand ischemia from afib vs hypoxia with CKD Continue home regimen Paroxysmal atrial fibrillation Not in afib on admission, rate not elevated Continue home eliquis, beta blockade CKD3 Creatinine on admission 1.78 which appears to be near baseline, now 2.01. We will hold off of diuretics for now. Trend BMP, avoid unnecessary nephrotoxins Alzheimer's: continue home regimen Iron-deficiency anemia: mild, MCV wnl, continue home iron supplementation CHOLO, MDD: continue home regimen Hypothyroidism: continue home regimen FEN: heart-healthy diet, low-sodium Code status: full code DVT ppx: home eliquis PT/OT: ordered Dispo: med/telemetry with COVID precautions, discharge to SNF facility when able. Patient is not COVID vaccinated which makes placement very difficult. (2) AICD (automatic cardioverter/defibrillator) present: (3) Anemia: (4) CAD (coronary artery disease): (5) Catheter-associated urinary tract infection: (6) COVID-19: (7) Dementia: (8) Dyslipidemia: (9) History of CT (myocardial infarction): (10) Nocturnal hypoxia: (11) Paroxysmal atrial fibrillation: (12) Stage 3b chronic kidney disease: (13) Chronic diastolic heart failure: Admission and Anticipated Discharge Date Admission Date: September 29, 2021 Supervising Physician Co-Signing Physician Notes Resident Physician Supervision Note: I independently interviewed and examined the patient and verified the delaney history and physical, reviewed labs and image studies and agree with resident Dr. Navarro findings and care plan. Subjective Patient seen at bedside this morning. Patient again refused to wear his CPAP overnight and instead was put on nasal cannula with several episodes of apnea resulting in hypoxia in the 50s. Continue to remind the patient that this can have detrimental effects on his health including arrhythmias, pulmonary hypertension, early , etc. Says that he understands these risks but do not know the merit of his response. Otherwise reports his breathing feels good and is in no pain. Later in the afternoon I was informed that the patient was havin g gross hematuria with clots/sediment. Unfortunately when I made up to the room the urine had been dumped in the toilet and flushed. There was some rafa- colored urine in the tube and at the very bottom of the catheter bag. Patient denies suprapubic tenderness, fever, chills, or nausea. Otherwise has no other complaints at this time. Review of Systems Review of Systems: All systems reviewed & are unremarkable except as noted in HPI & below Physical Exam Constitutional: WD/WN, vitals as above well developed, well nourished and cooperative; no acute distress Eyes: + anicteric sclerae Neck: trachea midline, no thyromegaly Respiratory: normal respiratory effort; no respiratory distress Auscultation: + wheezes Cardiovascular: RRR, no murmur, no edema Gastrointestinal (Abdomen): normal bowel sounds, soft, nontender, no hepatosplenomegaly Suprapubic catheter present Musculoskeletal: Head/Neck/Chest: normocephalic and head atraumatic Skin: no rashes, warm and dry Neurologic: moves all extremities Psychiatric: Orientation: alert, oriented to person, oriented to place and cooperative Results & Data Results & Data ([place]) Vital Signs (Past 12 Hours) Vital Signs Temp Pulse Pulse Resp BP BP Pulse Ox 10/03/21 15:39 36.7 C 59 L 17 149/78 H 94 10/03/21 15:05 53 L 10/03/21 11:45 10/03/21 11:14 36.7 C 58 L 18 169/80 H 95 10/03/21 07:53 36.4 C L 65 21 182/94 H 91 10/03/21 07:07 69 17 97 10/03/21 04:44 36.4 C L 63 20 174/96 H 94 O2 Del Method O2 Flow Rate 10/03/21 15:39 Nasal Cannula 2 10/03/21 15:05 10/03/21 11:45 Room Air 10/03/21 11:14 Room Air 10/03/21 07:53 Nasal Cannula 3 10/03/21 07:07 Nasal Cannula 3 10/03/21 04:44 Nasal Cannula 3.0
[2021-10-03] MEDS: DONEPEZIL HCL 10 MG TAB PO SCH (20:39)
[2021-10-03] MEDS: SIMVASTATIN 80 MG TAB PO SCH (20:39)
[2021-10-03] MEDS: GABAPENTIN 300 MG CAP PO SCH (20:39)
[2021-10-03] MEDS: TAMSULOSIN HCL 0.4 MG CAP PO SCH (20:39)
[2021-10-04] MEDS: LEVOTHYROXINE SODIUM 112 MCG TABLET PO SCH (06:09)
[2021-10-04] MEDS: FAMOTIDINE 40 MG TABLET PO SCH (06:09)
[2021-10-04] MEDS ORDERED: methylPREDNISolone 40 MG in SYRINGE 0 ML IV SCH (09:00)
[2021-10-04 09:18] LABS: Basophils # (auto) 0.01 K/uL (0-0.2); Basophils % (auto) 0.1 %; Hematocrit (blood only) 38.6 % (40.1-51.0); Hemoglobin 12.3 g/dl (14.0-18.0); Immature Granulocytes # (auto) 0.07 K/uL (0.00-0.02); Immature Granulocytes % (auto) 0.6 %; Lymphocytes % (auto) 11.3 %; Mean Corpuscular Hemoglobin 29.9 pg (25.0-34.0); Mean Corpuscular Hgb Conc 31.9 g/dL (32.0-36.0); Mean Corpuscular Volume 93.9 fL (80.0-100.0); Mean Platelet Volume 10.8 fL (9.4-12.4); Monocytes % (auto) 4.9 %; Neutrophils # (auto) 10.29 K/uL (1.4-6.5); Neutrophils % (auto) 83.1 %; Platelet Count 174 K/uL (130-400); RDW Standard Deviation 48.6 fL (36.4-46.3); Red Blood Count 4.11 M/uL (4.63-6.08); White Blood Count 12.37 K/ul (4.8-10.8)
[2021-10-04] MEDS: carvediloL 3.125 MG TAB PO SCH ×2 (09:37→17:14)
[2021-10-04] MEDS: AZITHROMYCIN 250 MG TAB PO SCH (09:38)
[2021-10-04] MEDS: BETHANECHOL CHL 25 MG TAB PO SCH ×4 (09:38→20:24)
[2021-10-04] MEDS: CIPROFLOXACIN HCL 0.3% OP SOLN 2.5 ML BTL OPB SCH ×4 (09:38→20:22)
[2021-10-04] MEDS: MEMANTINE HCL 10 MG TAB PO SCH ×2 (09:38→20:23)
[2021-10-04] MEDS: buPROPion SR 100 MG TABCR PO SCH ×2 (09:39→20:23)
[2021-10-04] MEDS: UMECLIDINIUM/VILANTEROL 62.5/25MCG 7 PUFFS/INHALER INH SCH (09:39)
[2021-10-04] MEDS: guaiFENesin 600 MG TABCR PO SCH ×2 (09:39→20:25)
[2021-10-04] MEDS: FERROUS SULFATE 325 MG TAB PO SCH (09:39)
[2021-10-04] MEDS: APIXABAN 2.5 MG TAB PO SCH ×2 (09:39→20:25)
[2021-10-04 09:42] LABS: Calcium 8.7 mg/dl (8.5-10.1); Creatinine Clr Calc Pharmacy 31.3 ml/min; Est GFR (African American) 36.5 ml/min; Est GFR (Non-African American) 31.5 ml/min; Potassium 3.8 mmol/L (3.5-5.1)
[2021-10-04] MEDS: ISOSORBIDE MONO EXTENDED REL 30 MG TABCR PO SCH (10:42)
--- NOTE | 2021-10-04 11:26 | Urology Consultation ---
Date of Consultation October 04, 2021 Assessment & Plan (1) Gross hematuria: (2) Chronic suprapubic catheter: Plan 81yo M with chronic bilateral ureteral stents and chronic suprapubic catheter, admitted with acute respiratory failure with hypoxia. Urology consulted for suprapubic catheter with new gross hematuria. Plan of care reviewed with Dr. Mccabe. Bilateral ureteral stents and suprapubic catheter last exchanged 08/22/2021. Hematuria possibly due to catheter/stent irritation in setting of chronic anticoagulation. Afebrile and hemodynamically stable. Labs reviewed-White count 12.37, hemoglobin 12.3, creatinine 1.93. Urine culture final with Monalisa albicans, which has been present on prior cultures and likely represents colonization. Blood cultures preliminary no growth x48 hours. Suprapubic catheter draining light pink urine, output appears adequate. Cont inue to monitor. Can gently hand irrigate as needed for clots, retention, or pain. Urology will follow. History of Present Illness Reason for Consultation: Suprapubic cath, new gross hematuria with sediment Attending Physician: Heather Smith MD History of Present Illness 81yo M with a past medical history including Alzheimer's, recurrent CAUTI, paroxysmal afib on Eliquis, CAD with [place], CKD, iron-deficiency anemia, hypo thyroidism, CHOLO, MDD, and recent covid infectionadmitted with acute respiratory failure with hypoxia and COPD exacerbation. Per chart review, patient was noted to have developed gross hematuria with passage of some clots/sediment. Urology consulted for suprapubic catheter, new gross hematuria with sediment. His urinalysis on arrival was notable for 2+ blood, 3+ LE, >30WBC, >30epi, negative bacteria, negative nitrite, +yeast. Urine culture finalized with Monalisa albicans. Blood cultures are preliminary no growth. He received vancomycin and cefepime on arrival to the ED initially. He was then transitioned to azithromycin and completed the course today. Patient is well-known to the urology service, follows with Dr. Medrano. Has a history of chronic bilateral ureteral stents and chronic suprapubic catheter both last exchanged 08/22/2021. On exam today, he was awake and resting in bed in no acute distress. Oriented to person and place. On COVID precautions. Suprapubic catheter is intact, draining light pink urine with sediment noted in tubing. Patient denied abdominal, flank, suprapubic pain. Catheter insertion site was clean and dry. No fevers or chills. No nausea or vomiting. Allergies Allergy/AdvReac Type Severity Reaction Status Date / Time captopril Allergy Severe Anaphylaxis Verified 09/29/21 17:34 Iodinated Contrast Media Allergy Severe Anaphylaxis Verified 09/29/21 17:34 morphine Allergy Severe Anaphylaxis Verified 09/29/21 17:34 oxaprozin Allergy Severe Anaphylaxis Verified 09/29/21 17:34 torsemide Allergy Severe Anaphylaxis Verified 09/29/21 17:34 hydrocodone Allergy Mild Rash Verified 09/29/21 17:34 Home Medications Medication Instructions Recorded Confirmed Type acetaminophen 325 mg tablet 650 mg PO Q4H PRN pain #30 tabs 08/14/19 09/29/21 Rx folic acid 1 mg tablet 1 mg PO QAM #90 tabs 10/04/19 09/29/21 Rx albuterol sulfate 90 mcg/actuation 2 puff inhalation Q6H PRN 07/09/20 09/29/21 Rx aerosol inhaler (Ventolin HFA) cough/wheeze/shortness of breath #1 inhaler cyanocobalamin (vitamin B-12) 1,000 mcg PO QAM 07/16/20 09/29/21 History 1,000 mcg tablet ferrous sulfate 325 mg (65 mg 325 mg PO QAM 07/16/20 09/29/21 History iron) tablet,delayed release polyethylene glycol 3350 17 gram 17 g PO BID PRN Constipation 07/16/20 09/29/21 History oral powder packet (Miralax) ascorbic acid (vitamin C) 500 mg 500 mg PO QAM 10/22/20 09/29/21 History tablet (Vitamin C) docusate sodium 100 mg capsule 100 mg PO BID PRN Constipation 10/22/20 09/29/21 History (Stool Softener) vitamin E 268 mg (400 unit) capsule 400 unit PO HS 10/22/20 09/29/21 History albuterol sulfate 2.5 mg/3 mL 2.5 mg (3 mL) inhalation QID PRN 04/16/21 09/29/21 Rx (0.083 %) solution for nebulization shortness of breath or wheezing #75 mL isosorbide mononitrate 30 mg 30 mg PO QAM #90 tabs 05/22/21 09/29/21 Rx tablet,extended release 24 hr nystatin 100,000 unit/gram topical 1 applic topical UD PRN Skin 05/22/21 09/29/21 History cream Irritation gabapentin 300 mg capsule 300 mg PO HS #90 caps 06/14/21 09/29/21 Rx ipratropium 0.5 mg-albuterol 3 mg 3 ml inhalation Q6H PRN wheezing 06/20/21 09/29/21 Rx (2.5 mg base)/3 mL nebulization #90 mL soln levothyroxine 112 mcg tablet 112 mcg PO HS #90 tabs 07/03/21 09/29/21 Rx (Synthroid) bethanechol chloride 50 mg tablet 50 mg PO QID #360 tabs 07/09/21 09/29/21 Rx simvastatin 80 mg tablet 80 mg PO HS #90 tabs 07/09/21 09/29/21 Rx bupropion HCl 100 mg tablet,12 hr 100 mg PO BID #60 ea 08/09/21 09/29/21 Rx sustained-release apixaban 2.5 mg tablet (Eliquis) 2.5 mg PO BID #180 tabs 08/13/21 09/29/21 Rx tamsulosin 0.4 mg capsule 0.4 mg PO HS #30 caps 08/22/21 09/29/21 Rx tramadol 50 mg tablet 50 mg PO TID PRN Pain #30 tabs 09/03/21 09/29/21 Rx memantine 10 mg tablet (Namenda) 10 mg PO BID #180 tabs 09/09/21 09/29/21 Rx Oxygen Home #1 ea 09/21/21 Rx benzonatate 100 mg capsule 100 mg PO TID PRN cough #30 caps 09/23/21 09/29/21 Rx donepezil 10 mg tablet 10 mg PO HS #90 tabs 09/23/21 09/29/21 Rx Oxygen Home #1 ea 09/24/21 Rx calcium carbonate 500 mg-vitamin 1 tab PO DAILY 09/29/21 09/29/21 History D3 5 mcg (200 unit) tablet carvedilol 3.125 mg tablet 3.125 mg PO BIDWMEAL 09/29/21 09/29/21 History famotidine 40 mg tablet (Pepcid) 40 mg PO DAILYBB 09/29/21 09/29/21 History Patient History Medical History (Updated 10/04/21 @ 11:51 by LIBAN Bridges) Anxiety and depression Aortic stenosis Moderate per 07/12/21 ECHO- (AV max velocity 3.25m/s; AV mean gradient 29mmHg; UZMA, VTI 1.59cm2; UZMA, Vmax 1.55cm2) CAD (coronary artery disease) Multiple cardiac stents (x4 total)- most recent 3+ years ago 1997- LCx- stent Most recent cath 2013 per cardio records "LAD okay, LCX OM 30, RCA ok, NL EF" Chronic diastolic heart failure Stable per 04/2021 cardio note No diuretics needed at this time Chronic pain COPD (chronic obstructive pulmonary disease) Dementia 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 On donepezil and memantine, follows with neurology Dyslipidemia History of kidney stones History of NE (myocardial infarction) 1997- Follows with Dr. Hodge/Kassidy History of recent hospitalization Admitted to [facility] 07/10/21-07/14/21- for staph bacteremia secondary to infected wound at suprapubic catheter site, UTI, acute metabolic encephalo brandy; per 08/09/21 neuro note- bacteremia resolved with abxs, acute metabolic encephalopathy resolved, mental status back to baseline, UTI/GIOVANY resolved after abx. 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 SSS Initially implanted in 2008- generator change in 2016 Paroxysmal atrial fibrillation NO HX CARDIOVERSION On Eliquis Recurrent UTI Secondary hyperparathyroidism of renal origin Sleep apnea NO DEVICE USED UNABLE TO TOLERATE CPAP Stage 3b chronic kidney disease Suprapubic catheter In place secondary to neurogenic bladder Surgical History (Updated 10/04/21 @ 11:51 by LIBAN Bridges) H/O total knee replacement R/L History of back surgery MULTIPLE History of cardiac cath Multiple cardiac stents (x4 total)- most recent 3+ years ago History of carpal tunnel release of both wrists History of cataract surgery B/L History of colonoscopy History of lithotripsy History of lumbar fusion History of prostate surgery Partial prostatectomy History of thyroidectomy secondary to goiter History of tooth extraction All teeth S/P cystoscopy with ureteral stent placement last 05/2021 @ [facility] Dr. William Medrano- Cystoscopy, Bilateral retrograde pyelogram, Bilateral ureteral stent exchange, Left aspiration and culture S/P TURP S/P ureteral stent placement Cysto, B/L RPG, right ureteroscopy, stent exchange: 07/06/18: LMA#5 at [facility] Cysto stent exchange (11/2018) Cystoscopy, stent exchange, suprapubic catheter (04/30/20): MAC at [facility] Family History Father Diabetes Mother Coronary heart disease Hypertension Brother Seizure Other No family history of adverse response to anesthesia Denies family history of Ovarian cancer Prostate cancer Myocardial infarction Breast cancer Colorectal cancer Social History Smoking Status: Unknown if ever smoked Tobacco Type: Cigarettes Age Started Using Tobacco: 15; Age Quit Using Tobacco: 59; packs per day: 2; Second Hand Exposure: No; Hx Alcohol Use: No Hx Substance Use: No Preferred Language: Slovenian Communication Ability: Effective Visual Impairment: No Limitations Hearing Ability: Hard of Hearing Donor Relations Manager Required: No Beliefs That Will Affect Care: None marital status: Current Living Situation: Family Current Living Situation Comment: spouse and daughters current occupational status: retired How many Children do You have: 3 Feels Safe at Home: Yes Childhood Exposure to Second-Hand Smoke: No caffeine: Yes (Coffee 3 per day.) during the past year weight has: remained stable Dental Care, Regularly: No Physical Activity Frequency: Does not Exercise Seatbelt Use: always Sunscreen Use: No Assistive Devices: Oxygen - at Night, Walker and Wheelchair Review of Systems Review of Systems: All systems reviewed & are unremarkable except as noted in HPI & below Physical Exam Constitutional: no acute distress Resting comfortably in bed. Neck: normal visual inspection Respiratory: + cough; no respiratory distress and no labored breathing Gastrointestinal (Abdomen): Percussion/Palpation: abdomen soft; abdomen nontender Suprapubic catheter intact, draining light pink urine with some sediment noted in tubing. Insertion site is clean and dry. Skin is pink surrounding insertion site. Skin: Warm and dry Neurologic: awake Psychiatric: Orientation: alert, oriented to person and oriented to place Genitourinary: no CVA tenderness Results & Data ([facility]) Vital Signs (Past 12 Hours) Vital Signs Temp Pulse Pulse Resp BP BP Pulse Ox 10/04/21 10:40 36.6 C 59 L 16 178/91 H 93 10/04/21 07:51 36.4 C L 63 19 168/84 H 95 10/04/21 03:56 36.5 C 54 L 18 172/78 H 97 10/04/21 00:00 57 L 10/03/21 23:52 36.5 C 75 18 172/74 H 93 O2 Del Method O2 Flow Rate 10/04/21 10:40 Room Air 10/04/21 07:51 Nasal Cannula 2 10/04/21 03:56 Nasal Cannula 10/04/21 00:00 10/03/21 23:52 Nasal Cannula 3 PG Care Time/CCT Total # of Minutes Spent Total Time Spent with Patient: Total time spent is greater than 50% in coordination of care (as documented) at patient's floor/unit and/or counseling patient: Coding Level of Care Code 88615 Initial Inpt Care Lvl 2 Diagnoses Gross hematuria R31.0 Chronic suprapubic catheter Z93.59
--- NOTE | 2021-10-04 13:32 | Hospitalist Progress Note ---
Date of Service October 04, 2021 Assessment & Plan (1) Acute respiratory failure with hypoxia: Plan: 81yo male with a history of Alzheimer's, recurrent CAUTI, paroxysmal afib, CAD with [place], CKD, iron-deficiency anemia, hypothyroidism, CHOLO, MDD, and recent covid infection presents with shortness of breath for about two weeks, then found by EMS to be hypoxic to the mid-80s. Acute hypoxic respiratory failure, improved Patient noted to by hypoxic to mid-80s by EMS, though spO2 was adequate on 4L NC upon arrival Patient afebrile, no tachycardia or tachypnea, procalcitonin negative, blood culture negative after 24 hours CXR: mild interstitial thickening, interval development of right lung hazy opacities concerning for asymmetric pulmonary edema vs developing pneumonia; cardiomegaly and trace left pleural effusion persisting from prior imaging Likely multifactorial given history of HFpEF, COPD, recent COVID-19 diagnosis For that reason will treat for COPD exacerbation and CHF exacerbation (see below) Patient received vanc/cefepime in ED, these were stopped on admission. Continue supplemental oxygen as needed, wean as indicated, overall presentation seems to be improved compared to yesterday, currently on RA Guaifenesin, tessalon perles Incentive spirometry, flutter valve, PT/OT-recommending longterm with rehab. We will begin looking for placement when he is medically cleared. Trend CBC, noticed a increase in white blood cell count likely due to IV steroids. Continue to monitor. Gross hematuria, improved In the setting of suprapubic catheter Differential includes catheter irritation/trauma versus cystitis among others Catheter last changed on July 26 per chart review UA on admission infected appearing but has been noted in urology visits that he is colonized and will always show positive UA results Culture has been significant for Monalisa infection but this has always been present on previous cultures Given the above, urology consult placed-feel it is likely due to catheter irritation and anticoagulation, no indication for antibiotics at this time COPD exacerbation, improved Started Anoro Ellipta blister once a day on 10/03 for maintenance COPD medication Methylprednisolone - finished 5 days of steroids. will d/c. Duonebs changed to every 6 hours as needed Azithromycin completed on 10/04 - encourage flutter valve use to help with expectoration. Chronic HFpEF Patient appeared fluid overloaded based on physical exam on admission Due to CKD history and being diuretic cinthia, only gave 20 mg of Lasix on 09/30 for which he had lost 900 mLs of fluid in the first 24 hours Creatinine bumped to 2.09 after first dose, volume status improved, so held off any additional diuretic Accurate I's and O's Daily weights Daily BMP CHANELLE Patient has documented severe obstructive sleep apnea Nonadherent with CPAP at home and refuses here Uses 3 L nasal cannula at home at nighttime We will increase oxygen at night as needed for CHANELLE We will encourage CPAP use daily and if refuses oxygen as above Conjunctivitis Ciprofloxicin oph two drops each eye q4hwa ordered for total 5 days. Today is day 4 of 5 Warm compress q4h ordered Continue to monitor Bacteriuria, history of CAUTI Patient with suprapubic catheter and history of CAUTI Patient with only mild pericatheter irritation which he says is not different from baseline Afebrile, no leukocytosis, no flank tenderness, procal negative Given the above, suspect UA findings represent colonization rather than infection Urine culture so far has grown Monalisa albicans but no bacteria currently. See plan above Encourage PO intake to maintain adequate hydration CAD, history of [place], elevated hsTroponin Initial hsTroponin elevated to 38.4, repeat 41.9 - no further repeat values indicated based on small delta EKG: junctional rhythm per automated read, rate 85, no overt ischemic change Suspect elevated hsTroponin secondary to demand ischemia from afib vs hypoxia with CKD Continue home regimen Paroxysmal atrial fibrillation Not in afib on admission, rate not elevated Continue home eliquis, beta blockade CKD3 Creatinine on admission 1.78 which appears to be near baseline, now 2.01. We will hold off of diuretics for now. Trend BMP, avoid unnecessary nephrotoxins Alzheimer's: continue home regimen Iron-deficiency anemia: mild, MCV wnl, continue home iron supplementation CHOLO, MDD: continue home regimen Hypothyroidism: continue home regimen FEN: heart-healthy diet, low-sodium Code status: full code DVT ppx: home eliquis PT/OT: ordered Dispo: med/telemetry with COVID precautions, discharge to SNF facility when able. Patient is not COVID vaccinated which makes placement very difficult. (2) AICD (automatic cardioverter/defibrillator) present: (3) Anemia: (4) CAD (coronary artery disease): (5) Catheter-associated urinary tract infection: (6) COVID-19: (7) Dementia: (8) Dyslipidemia: (9) History of [place] (myocardial infarction): (10) Nocturnal hypoxia: (11) Paroxysmal atrial fibrillation: (12) Stage 3b chronic kidney disease: (13) Chronic diastolic heart failure: Admission and Anticipated Discharge Date Admission Date: September 29, 2021 Supervising Physician Co-Signing Physician Notes Resident Physician Supervision Note: I independently interviewed and examined the patient and verified the delaney history and physical, reviewed labs and image studies and agree with resident Dr. Navarro findings and care plan. Subjective Patient seen at bedside this morning. No acute events reported overnight. Patient continues to have dark red urine with sediment. Patient continues to deny any pain around his suprapubic catheter. Overall seems to be clinically improving and can readily be taken off oxygen in the morning and saturates well on room air. Continues to report that he feels his breathing is good. Continues to deny using his CPAP. Multiple reports for the past few nights have him having episodes of apnea and oxygen saturations in the low 50s. Reiterated this information to the patient and continue to warn him about the effects of not using his CPAP. Otherwise has no other complaints at this time. Review of Systems Review of Systems: All systems reviewed & are unremarkable except as noted in HPI & below Physical Exam Constitutional: WD/WN, vitals as above well developed, well nourished, + ill appearing and cooperative; no acute distress Eyes: + conjunctival abnormality (Bilateral eye crusting with conjunctival erythema on the right.) and + anicteric sclerae Neck: trachea midline, no thyromegaly Respiratory: normal respiratory effort; no respiratory distress Auscultation: + wheezes (Expiratory) Cardiovascular: RRR, no murmur, no edema Rate/Rhythm: regular rate and regular rhythm Heart Sounds: + murmur (3 out of 6 systolic murmur) Extremities: + edema (Trace lower extremity bilaterally) Gastrointestinal (Abdomen): normal bowel sounds, soft, nontender, no hepatosplenomegaly Musculoskeletal: Head/Neck/Chest: normocephalic and head atraumatic Skin: no rashes, warm and dry Neurologic: moves all extremities Psychiatric: Orientation: alert, oriented to person, oriented to place and cooperative Thought Process: + tangential thought process Results & Data Results & Data ([facility]) Vital Signs (Past 12 Hours) Vital Signs Temp Pulse Resp BP BP Pulse Ox O2 Del Method 10/04/21 07:25 Nasal Cannula 10/04/21 11:50 36.6 C 60 20 158/82 H 90 Nasal Cannula 10/04/21 10:40 36.6 C 59 L 16 178/91 H 93 Room Air 10/04/21 07:51 36.4 C L 63 19 168/84 H 95 Nasal Cannula 10/04/21 03:56 36.5 C 54 L 18 172/78 H 97 Nasal Cannula O2 Flow Rate 10/04/21 07:25 2 10/04/21 11:50 2 10/04/21 10:40 10/04/21 07:51 2 10/04/21 03:56
[2021-10-04] MEDS: SIMVASTATIN 80 MG TAB PO SCH (20:23)
[2021-10-04] MEDS: TAMSULOSIN HCL 0.4 MG CAP PO SCH (20:24)
[2021-10-04] MEDS: GABAPENTIN 300 MG CAP PO SCH (20:24)
[2021-10-04] MEDS: DONEPEZIL HCL 10 MG TAB PO SCH (20:25)
[2021-10-05] MEDS: ACETAMINOPHEN 500 MG TAB PO PRN ×2 (00:35→16:08)
[2021-10-05] MEDS: FAMOTIDINE 40 MG TABLET PO SCH (05:35)
[2021-10-05] MEDS: LEVOTHYROXINE SODIUM 112 MCG TABLET PO SCH (05:35)
--- NOTE | 2021-10-05 06:43 | Hospitalist Progress Note ---
Date of Service October 05, 2021 Assessment & Plan (1) Acute respiratory failure with hypoxia: Plan: 81yo male with a history of Alzheimer's, recurrent CAUTI, paroxysmal afib, CAD with CA, CKD, iron-deficiency anemia, hypothyroidism, CHOLO, MDD, and recent covid infection presents with shortness of breath for about two weeks, then found by EMS to be hypoxic to the mid-80s. Acute hypoxic respiratory failure, improved Patient noted to by hypoxic to mid-80s by EMS, though spO2 was adequate on 4L NC upon arrival Patient afebrile, no tachycardia or tachypnea, procalcitonin negative, blood culture negative after 24 hours CXR: mild interstitial thickening, interval development of right lung hazy opacities concerning for asymmetric pulmonary edema vs developing pneumonia; cardiomegaly and trace left pleural effusion persisting from prior imaging Likely multifactorial given history of HFpEF, COPD, recent COVID-19 diagnosis For that reason will treat for COPD exacerbation and CHF exacerbation (see below) Patient received vanc/cefepime in ED, these were stopped on admission. Continue supplemental oxygen as needed, wean as indicated Guaifenesin, tessalon perles Incentive spirometry, flutter valve, PT/OT-recommending nursing home with rehab. Currently looking into placement Trend CBC, noticed a increase in white blood cell count likely due to IV steroids. Continue to monitor. Gross hematuria In the setting of suprapubic catheter Differential includes catheter irritation/trauma versus cystitis among others Bilateral ureteral stents and suprapubic catheter last exchanged 08/22/2021. UA on admission infected appearing but has been noted in urology visits that he is colonized and will always show positive UA results Culture has been significant for Monalisa infection but this has always been present on previous cultures -blood cultures negative Given the above, urology consult placed, no indication for abx at this time CHANELLE Patient has documented severe obstructive sleep apnea Nonadherent with CPAP at home and refuses here Uses 3 L nasal cannula at home at nighttime We will increase oxygen at night as needed for CHANELLE We will encourage CPAP use daily and if refuses oxygen as above COPD exacerbation, improved Started Anoro Ellipta blister once a day on 10/03 for maintenance COPD medication Methylprednisolone taper, 40mg IV today, 30mg 10/06, 20mg 10/07, 10mg 10/08 Duonebs changed to q6h PRN Azithromycin completed on 10/04 Chronic HFpEF Patient appeared fluid overloaded based on physical exam on admission Due to CKD history and being diuretic cinthia, only gave 20 mg of Lasix on 09/30 for which he had lost 900 mLs of fluid in the first 24 hours Creatinine bumped to 2.09 after first dose, volume status improved, so held off any additional diuretic Accurate I's and O's Daily weights Daily BMP Conjunctivitis Ciprofloxicin oph two drops each eye q4hwa ordered for total 5 days. Today is day 5 Warm compress q4h ordered Continue to monitor Bacteriuria, history of CAUTI Patient with suprapubic catheter and history of CAUTI Patient with only mild pericatheter irritation which he says is not different from baseline Afebrile, no leukocytosis, no flank tenderness, procal negative Given the above, suspect UA findings represent colonization rather than infection Urine culture so far has grown Monalisa albicans but no bacteria currently. See plan above Encourage PO intake to maintain adequate hydration CAD, history of CA, elevated hsTroponin Initial hsTroponin elevated to 38.4, repeat 41.9 - no further repeat values indicated based on small delta EKG: junctional rhythm per automated read, rate 85, no overt ischemic change Suspect elevated hsTroponin secondary to demand ischemia from afib vs hypoxia with CKD Continue home regimen Paroxysmal atrial fibrillation Not in afib on admission, rate not elevated Continue home eliquis, beta blockade CKD3 Creatinine on admission 1.78 which appears to be near baseline, now 2.01. We will hold off of diuretics for now. Trend BMP, avoid unnecessary nephrotoxins Alzheimer's: continue home regimen Iron-deficiency anemia: mild, MCV wnl, continue home iron supplementation CHOLO, MDD: continue home regimen Hypothyroidism: continue home regimen FEN: heart-healthy diet, low-sodium Code status: full code DVT ppx: home eliquis PT/OT: ordered Dispo: med/telemetry with COVID precautions, discharge to SNF facility when able. Patient is not COVID vaccinated which makes placement very difficult. (2) AICD (automatic cardioverter/defibrillator) present: (3) Anemia: (4) CAD (coronary artery disease): (5) Catheter-associated urinary tract infection: (6) COVID-19: (7) Dementia: (8) Dyslipidemia: (9) History of CA (myocardial infarction): (10) Nocturnal hypoxia: (11) Paroxysmal atrial fibrillation: (12) Stage 3b chronic kidney disease: (13) Chronic diastolic heart failure: Admission and Anticipated Discharge Date Admission Date: September 29, 2021 Supervising Physician Co-Signing Physician Notes I also saw the patient with the resident physician and confirmed delaney portions of the history and physical examination. Agree with impression and plan as noted in the resident documentation. Upon our exam this morning, the patient is semireclined in bed watching television. Overall, he states that he feels better. He has no specific complaints today. Exam 166/82, 59, 92% on nasal cannula 2 L/min Pleasant and alert. Lungs with generally coarse lung sounds, expiratory wheezing throughout Heart sounds are distant but sound regular Abdomen is soft and nontender Data WBC 12.47, hemoglobin 12.9, platelet count 169 BUN 52, creatinine 1.76. Impression and plan Acute hypoxic respiratory failure COPD exacerbation Multifactorial, no history of HFpEF, COPD, with acute COVID-19 diagnosis Oxygen saturations on 3 L/min via nasal cannula were good this morning, increased oxygen demand later this afternoon Encourage use of incentive spirometer; nebulizer Will check chest x-ray now CHANELLE Not entirely compliant with CPAP at home, refusing here Does use oxygen at night, 3 L via nasal cannula Additional diagnoses and plan as noted in resident documentation Subjective Patient seen at bedside, calm comfortable cooperative. He denies any SOB, fever, chills, pain. No acute concerns. Later in day patient desatted to 80% on 4L NC transferring to chair, improved to 92% on high flow nasal cannula. Patient continues to deny SOB. Nursing noted he frequently coughs up mucus in the morning but forgets to spit it out, is frequently forgetful and does not use incentive spirometer or properly use Duonebs without guidance. Review of Systems Review of Systems: .Negative fever chills Negative headache dizziness Negative chest pain palpitations SOB Negative nausea vomitting diarrhea constipation Negative numbness tingling rash swelling Physical Exam Constitutional: WD/WN, vitals as above Eyes: PERRL, conjunctivae normal, anicteric sclerae ENMT: external ear and nose normal, oropharynx normal Neck: trachea midline, no thyromegaly Respiratory: normal respiratory effort and + cough Auscultation: + rhonchi (that improves with coughing up mucus) and + wheezes Cardiovascular: Rate/Rhythm: regular rate and regular rhythm Chest (Breasts): normal inspection/palpation of breasts Gastrointestinal (Abdomen): normal bowel sounds, soft, nontender, no hepatosplenomegaly suprapubic catheter in place Skin: no rashes, warm and dry Results & Data Results & Data ([facility]) Vital Signs (Past 12 Hours) Vital Signs Temp Pulse Resp BP Pulse Ox O2 Del Method O2 Flow Rate 10/05/21 04:08 36.5 C 57 L 20 166/82 H 96 Nasal Cannula 4 10/04/21 23:21 36.7 C 64 18 183/106 H 92 Nasal Cannula 4 10/04/21 20:00 Nasal Cannula 4 10/04/21 19:52 36.4 C L 69 18 176/99 H 92 Nasal Cannula 4 Laboratory Results 10/05/21 10/05/21 Range/Units 08:35 08:35 WBC 12.47 H (4.8-10.8) K/ul RBC 4.24 L (4.63-6.08) M/uL Hgb 12.9 L (14.0-18.0) g/dl Hct 39.6 L (40.1-51.0) % MCV 93.4 (80.0-100.0) fL MCH 30.4 (25.0-34.0) pg MCHC 32.6 (32.0-36.0) g/dL RDW Std Deviation 46.9 H (36.4-46.3) fL RDW Coeff of Curtis 13.8 (11.5-14.5) % Plt Count 169 (130-400) K/uL MPV 11.1 (9.4-12.4) fL Sodium 142 (136-145) mmol/L Potassium 4.0 (3.5-5.1) mmol/L Chloride 107 (98-107) mmol/L Carbon Dioxide 29 (21-32) mmol/L Anion Gap 6 (3-11) BUN 52 H (6-23) mg/dl Creatinine 1.76 H (0.6-1.4) mg/dl Est Cr Clr Drug Dosing 34.3 ml/min Est GFR ( Amer) 40.8 ml/min Est GFR (Non-Af Amer) 35.2 ml/min BUN/Creatinine Ratio 29.5 H (10-20) Glucose 145 H (70-99(Fasting)) mg/dl Calcium 8.9 (8.5-10.1) mg/dl Medications Administered Current Inpatient Medications Acetaminophen (Acetaminophen 500 Mg Tab) 1,000 mg PO Q6H PRN PRN Reason: Pain or Fever Stop: 11/04/21 00:18 Last Admin: 10/05/21 00:35 Dose: 1,000 mg Albuterol (Albut/Ipratrop 3mg/0.5mg Neb 3 Ml Vial) 3 ml INH Q6R PRN; Protocol PRN Reason: Shortness Of Breath Or Wheezing Stop: 10/31/21 09:14 Last Admin: 10/05/21 13:33 Dose: 3 ml Apixaban (Apixaban 2.5 Mg Tab) 2.5 mg PO BID [facility] Stop: 10/29/21 20:59 Last Admin: 10/05/21 08:01 Dose: 2.5 mg Benzonatate (Benzonatate 100 Mg Capsule) 100 mg PO TID PRN PRN Reason: cough Stop: 10/29/21 20:29 Last Admin: 10/05/21 00:36 Dose: 100 mg Bethanechol Chloride (Bethanechol Chl 25 Mg Tab) 50 mg PO QID [facility] Stop: 10/29/21 20:59 Last Admin: 10/05/21 12:56 Dose: 50 mg Bupropion HCl (Bupropion Sr 100 Mg Tabcr) 100 mg PO BID [facility] Stop: 10/29/21 20:59 Last Admin: 10/05/21 08:00 Dose: 100 mg Carvedilol (Carvedilol 3.125 Mg Tab) 3.125 mg PO BIDM [facility] Stop: 10/29/21 16:59 Last Admin: 10/05/21 07:45 Dose: Not Given Ciprofloxacin (Ciprofloxacin Hcl 0.3% Op Soln 2.5 Ml Btl) 2 drops OPB Q4HWA [facility] Stop: 10/09/21 21:14 Last Admin: 10/05/21 12:56 Dose: 2 drops Docusate Sodium (Docusate Sodium 100 Mg Cap) 100 mg PO BID PRN PRN Reason: Constipation Stop: 10/29/21 20:29 Donepezil HCl (Donepezil Hcl 10 Mg Tab) 10 mg PO HS [facility] Stop: 10/29/21 20:59 Last Admin: 10/04/21 20:25 Dose: 10 mg Famotidine (Famotidine 40 Mg Tablet) 40 mg PO DAILYBB FLEX Stop: 10/30/21 06:29 Last Admin: 10/05/21 05:35 Dose: 40 mg Ferrous Sulfate (Ferrous Sulfate 325 Mg Tab) 325 mg PO QAM FLEX Stop: 10/30/21 08:59 Last Admin: 10/05/21 08:00 Dose: 325 mg Gabapentin (Gabapentin 300 Mg Cap) 300 mg PO HS FLEX Stop: 10/29/21 20:59 Last Admin: 10/04/21 20:24 Dose: 300 mg Guaifenesin (Guaifenesin 600 Mg Tabcr) 600 mg PO Q12 FLEX Stop: 10/29/21 20:59 Last Admin: 10/05/21 08:01 Dose: 600 mg Methylprednisolone 40 mg/ (Syringe) 0.64 mls @ 1.5 mls/min IV DAILY FLEX Stop: 10/06/21 01:14 Last Admin: 10/05/21 13:55 Dose: 1.5 mls/min Methylprednisolone 30 mg/ (Syringe) 0.48 mls @ 1.5 mls/min IV DAILY FLEX Stop: 10/06/21 09:01 Methylprednisolone 20 mg/ (Syringe) 0.32 mls @ 1.5 mls/min IV DAILY FLEX Stop: 10/07/21 09:01 Methylprednisolone 10 mg/ (Syringe) 0.25 mls @ 1.5 mls/min IV DAILY FLEX Stop: 10/08/21 09:01 Isosorbide Mononitrate (Isosorbide Coryell Extended Rel 30 Mg Tabcr) 30 mg PO QAM FLEX Stop: 10/30/21 08:59 Last Admin: 10/05/21 08:00 Dose: 30 mg Levothyroxine Sodium (Levothyroxine Sodium 112 Mcg Tablet) 112 mcg PO DAILYBB FLEX Stop: 10/30/21 06:29 Last Admin: 10/05/21 05:35 Dose: 112 mcg Memantine (Memantine Hcl 10 Mg Tab) 10 mg PO BID FLEX Stop: 10/29/21 20:59 Last Admin: 10/05/21 08:00 Dose: 10 mg Simvastatin (Simvastatin 80 Mg Tab) 80 mg PO HS FLEX Stop: 10/29/21 20:59 Last Admin: 08/26/22 20:23 Dose: 80 mg Tamsulosin HCl (Tamsulosin Hcl 0.4 Mg Cap) 0.4 mg PO HS FLEX Stop: 10/29/21 20:59 Last Admin: 10/04/21 20:24 Dose: 0.4 mg Umeclidinium/Vilanterol (Umeclidinium/Vilanterol 62.5/25mcg 7 Puffs/Inhaler) 1 puffs INH DAILY FLEX Stop: 11/02/21 09:44 Last Admin: 10/05/21 08:01 Dose: 1 puffs Resident Activity Tracking Resident Involvement: Resident Care Provided Care Provided: Adult [facility] Medicine
[2021-10-05] MEDS: CIPROFLOXACIN HCL 0.3% OP SOLN 2.5 ML BTL OPB SCH ×4 (07:41→20:27)
[2021-10-05] MEDS: carvediloL 3.125 MG TAB PO SCH ×2 (07:45→16:20)
[2021-10-05] MEDS: BETHANECHOL CHL 25 MG TAB PO SCH ×4 (08:00→20:28)
[2021-10-05] MEDS: ISOSORBIDE MONO EXTENDED REL 30 MG TABCR PO SCH (08:00)
[2021-10-05] MEDS: FERROUS SULFATE 325 MG TAB PO SCH (08:00)
[2021-10-05] MEDS: buPROPion SR 100 MG TABCR PO SCH ×2 (08:00→20:29)
[2021-10-05] MEDS: MEMANTINE HCL 10 MG TAB PO SCH ×2 (08:00→20:31)
[2021-10-05] MEDS: APIXABAN 2.5 MG TAB PO SCH ×2 (08:01→20:28)
[2021-10-05] MEDS: UMECLIDINIUM/VILANTEROL 62.5/25MCG 7 PUFFS/INHALER INH SCH (08:01)
[2021-10-05] MEDS: guaiFENesin 600 MG TABCR PO SCH ×2 (08:01→20:30)
[2021-10-05 08:58] LABS: Hematocrit (blood only) 39.6 % (40.1-51.0); Hemoglobin 12.9 g/dl (14.0-18.0); Mean Corpuscular Hemoglobin 30.4 pg (25.0-34.0); Mean Corpuscular Hgb Conc 32.6 g/dL (32.0-36.0); Mean Corpuscular Volume 93.4 fL (80.0-100.0); Mean Platelet Volume 11.1 fL (9.4-12.4); Platelet Count 169 K/uL (130-400); RDW Coefficient of Variation 13.8 % (11.5-14.5); RDW Standard Deviation 46.9 fL (36.4-46.3); Red Blood Count 4.24 M/uL (4.63-6.08); White Blood Count 12.47 K/ul (4.8-10.8)
[2021-10-05 09:21] LABS: BUN Creatinine Ratio 29.5 (10-20); Calcium 8.9 mg/dl (8.5-10.1); Creatinine Clr Calc Pharmacy 34.3 ml/min; Est GFR (African American) 40.8 ml/min; Est GFR (Non-African American) 35.2 ml/min
[2021-10-05] MEDS ORDERED: methylPREDNISolone 40 MG in SYRINGE 0 ML IV SCH (13:15)
--- NOTE | 2021-10-05 19:19 | XRay Report ---
SINGLE VIEW CHEST CLINICAL HISTORY: Hypoxia. FINDINGS: An AP, portable, upright chest radiograph is compared to study dated 09/29/2021 and correlat ed with abdominal CT dated 07/26/2021. A 2-lead cardiac pacemaker is unchanged in position. The heart is enlarged indenting atherosclerotic calcification of the thoracic area. There is pulmonary vascular congestion. Airspace opacities are seen throughout both lungs, asymmetrically greater on the right. Small pleural effusions are noted. No pneumothorax is seen. The skeletal structures are osteopenic. T he bony thorax is grossly intact. Cholecystectomy clips are noted in the right upper quadrant. IMPRESSION: 1. Cardiomegaly without evidence of congestive failure. 2. Airspace opacities are seen throughout both lungs, asymmetrically greater on the right. This could represent asymmetric pulmonary edema and/or multifocal pneumonia. Clinical correlation will be requi red and radiographic follow-up to resolution is recommended. 3. Small pleural effusions. ACT 112: Negative or not required by law. Electronically signed by: Santy Acuña M.D. 10/05/2021 7:17 PM
[2021-10-05] MEDS: CEFEPIME 2,000 MG in SYRINGE 0 ML IV SCH (20:24)
[2021-10-05] MEDS: DONEPEZIL HCL 10 MG TAB PO SCH (20:29)
[2021-10-05] MEDS: GABAPENTIN 300 MG CAP PO SCH (20:30)
[2021-10-05] MEDS: SIMVASTATIN 80 MG TAB PO SCH (20:31)
[2021-10-05] MEDS: TAMSULOSIN HCL 0.4 MG CAP PO SCH (20:32)
[2021-10-05] MEDS: methylPREDNISolone 40 MG in SYRINGE 0 ML IV SCH (21:18)
[2021-10-06] MEDS: FAMOTIDINE 40 MG TABLET PO SCH (05:44)
[2021-10-06] MEDS: LEVOTHYROXINE SODIUM 112 MCG TABLET PO SCH (05:44)
[2021-10-06 06:17] LABS: Hematocrit (blood only) 42.3 % (40.1-51.0); Hemoglobin 13.7 g/dl (14.0-18.0); Mean Corpuscular Hemoglobin 29.7 pg (25.0-34.0); Mean Corpuscular Hgb Conc 32.4 g/dL (32.0-36.0); Mean Corpuscular Volume 91.6 fL (80.0-100.0); Mean Platelet Volume 11.3 fL (9.4-12.4); Platelet Count 154 K/uL (130-400); RDW Coefficient of Variation 13.8 % (11.5-14.5); RDW Standard Deviation 46.5 fL (36.4-46.3); Red Blood Count 4.62 M/uL (4.63-6.08); White Blood Count 7.46 K/ul (4.8-10.8)
--- NOTE | 2021-10-06 06:48 | Hospitalist Progress Note ---
Date of Service October 06, 2021 Assessment & Plan (1) Acute respiratory failure with hypoxia: Plan: 81yo male with a history of Alzheimer's, recurrent CAUTI, paroxysmal afib, CAD with TX, CKD, iron-deficiency anemia, hypothyroidism, CHOLO, MDD, and recent covid infection presents with shortness of breath for about two weeks, then found by EMS to be hypoxic to the mid-80s. Acute hypoxic respiratory failure, improved Patient noted to by hypoxic to mid-80s by EMS, though spO2 was adequate on 4L NC upon arrival Patient afebrile, no tachycardia or tachypnea, procalcitonin negative, blood culture negative after 24 hours CXR: mild interstitial thickening, interval development of right lung hazy opacities concerning for asymmetric pulmonary edema vs developing pneumonia; cardiomegaly and trace left pleural effusion persisting from prior imaging Likely multifactorial given history of HFpEF, COPD, recent COVID-19 diagnosis For that reason will treat for COPD exacerbation and CHF exacerbation (see below) Patient received vanc/cefepime in ED, dc'd, completed course of azithromycin Continue supplemental oxygen as needed, wean as indicated Guaifenesin, tessalon perles Incentive spirometry, flutter valve PT/OT-recommending fci with rehab. Currently looking into placement -repeat CXR: Airspace opacities are seen throughout both lungs, asymmetrically greater on the right. This could represent asymmetric pulmonary edema and/or multifocal pneumonia -Chest CT: Extensive airspace opacities throughout the right lung. Mild airspace opacities within the left lung. The findings favor an infectious process with multifocal pneumonia. Asymmetric pulmonary edema could appear similar but is considered less likely. -consulted Pulmonology this is likely post COVID changes with some contribution from fluid overload continue diuresis reduce methylprednisone to 40mg IV daily and taper down consider switching from cefepime to doxycycline if using abx repeat chest CT in 6-8wks tolerated 4L O2 at 92% saturation, continue to wean as tolerated Gross hematuria In the setting of suprapubic catheter Differential includes catheter irritation/trauma versus cystitis among others Bilateral ureteral stents and suprapubic catheter last exchanged 08/22/2021. UA on admission infected appearing but has been noted in urology visits that he is colonized and will always show positive UA results Culture has been significant for Monalisa infection but this has always been present on previous cultures -blood cultures negative Given the above, urology consult placed, no indication for abx at this time CHANELLE Patient has documented severe obstructive sleep apnea Nonadherent with CPAP at home and refuses here Uses 3 L nasal cannula at home at nighttime We will increase oxygen at night as needed for CHANELLE encourage CPAP use daily and if refuses oxygen as above COPD exacerbation, improved Started Anoro Ellipta blister once a day on 10/03 for maintenance COPD medication Methylprednisolone taper, 40mg IV daily and wean down Duonebs changed to q6h PRN Azithromycin completed on 10/04 Chronic HFpEF Patient appeared fluid overloaded based on physical exam on admission Due to CKD history and being diuretic cinthia, only gave 20 mg of Lasix on 09/30 for which he had lost 900 mLs of fluid in the first 24 hours Creatinine bumped to 2.09 after first dose, volume status improved, so held off any additional diuretic Accurate I's and O's Daily weights Daily BMP Conjunctivitis Ciprofloxicin oph two drops each eye q4hwa ordered for total 5 days. Completed Warm compress q4h ordered Continue to monitor Bacteriuria, history of CAUTI Patient with suprapubic catheter and history of CAUTI Patient with only mild pericatheter irritation which he says is not different from baseline Afebrile, no leukocytosis, no flank tenderness, procal negative Given the above, suspect UA findings represent colonization rather than infection Urine culture so far has grown Monalisa albicans but no bacteria currently. See plan above Encourage PO intake to maintain adequate hydration CAD, history of TX, elevated hsTroponin Initial hsTroponin elevated to 38.4, repeat 41.9 - no further repeat values indicated based on small delta EKG: junctional rhythm per automated read, rate 85, no overt ischemic change Suspect elevated hsTroponin secondary to demand ischemia from afib vs hypoxia with CKD Continue home regimen Paroxysmal atrial fibrillation Not in afib on admission, rate not elevated Continue home eliquis, beta blockade CKD3 Creatinine on admission 1.78 which appears to be near baseline, now 2.01. We will hold off of diuretics for now. Trend BMP, avoid unnecessary nephrotoxins Alzheimer's: continue home regimen Iron-deficiency anemia: mild, MCV wnl, continue home iron supplementation CHOLO, MDD: continue home regimen Hypothyroidism: continue home regimen FEN: heart-healthy diet, low-sodium Code status: full code DVT ppx: home eliquis PT/OT: ordered Dispo: med/telemetry with COVID precautions, discharge to SNF facility when able. Patient is not COVID vaccinated which makes placement very difficult. (2) AICD (automatic cardioverter/defibrillator) present: (3) Anemia: (4) CAD (coronary artery disease): (5) Catheter-associated urinary tract infection: (6) COVID-19: (7) Dementia: (8) Dyslipidemia: (9) History of TX (myocardial infarction): (10) Nocturnal hypoxia: (11) Paroxysmal atrial fibrillation: (12) Stage 3b chronic kidney disease: (13) Chronic diastolic heart failure: Admission and Anticipated Discharge Date Admission Date: September 29, 2021 Supervising Physician Co-Signing Physician Notes I also saw the patient with the resident physician and confirmed delaney portions of the history and physical examination. Agree with impression and plan as noted in the resident documentation. With his increased oxygen demand and tight bilateral wheezing yesterday afternoon, the patient was started on cefepime and restarted on methylprednisolone. Chest x-ray from yesterday demonstrated increased opacities of the right lung; asymmetry favored infection over edema; also note the patient has been in a negative fluid balance last several days. Upon our exam this morning, the patient is semireclined in bed. He again has no complaints. He denies shortness of breath, cough. He speaks in complete sentences without pause. Exam 159/84, 64, 16, 36.5, 91% on nasal cannula at 8 L/min Pleasant and alert. Lungs are tight with expiratory wheezes, bilaterally. Heart sounds are distant but sound regular Abdomen is soft and nontender Data WBC 7.46, hemoglobin 13.7, platelet 154 Sodium 143, potassium 4.3, BUN 50, creatinine 1.74. CRP 3.47 BNP 547 Procalcitonin 0.07 MRSA nasal screen negative CT scan of the chest without contrast completed today shows extensive airspace opacities throughout the right lung, mild airspace opacities within the left lung. These findings favor infectious process with multifocal pneumonia. Asymmetric pulmonary edema could appear similar but is considered less likely. Impression and plan Acute hypoxic respiratory failure COPD exacerbation Pneumonia Multifactorial, history of HFpEF, COPD, with acute COVID-19 diagnosis Pulmonary consult appreciated Added Cefepime 10/06 (no patient completed course of Zithromax earlier on during this hospitalization) Restarted methylprednisolone 10/06 CHANELLE Not entirely compliant with CPAP at home, refusing here Does use oxygen at night, 3 L via nasal cannula Additional diagnoses and plan as noted in resident documentation Subjective Patient seen at bedside calm comfortable cooperative, denies SOB, states he is feeling well. Per patient no acute concerns at this time. Review of Systems Review of Systems: .Negative fever chills Negative headache dizziness Negative chest pain palpitations SOB Negative nausea vomitting diarrhea constipation Negative numbness tingling rash swelling Physical Exam Constitutional: WD/WN, vitals as above Eyes: PERRL, conjunctivae normal, anicteric sclerae ENMT: external ear and nose normal, oropharynx normal Neck: trachea midline, no thyromegaly Respiratory: normal respiratory effort and + cough Auscultation: + wheezes (right) Cardiovascular: Rate/Rhythm: regular rate and regular rhythm Heart Sounds: + murmur Chest (Breasts): normal inspection/palpation of breasts Gastrointestinal (Abdomen): normal bowel sounds, soft, nontender, no hepatosplenomegaly Skin: no rashes, warm and dry Results & Data Results & Data ([facility]) Vital Signs (Past 12 Hours) Vital Signs Temp Pulse Pulse Resp BP Pulse Ox O2 Del Method 10/06/21 02:48 36.3 C L 62 22 183/83 H 91 Nasal Cannula 10/05/21 23:17 36.4 C L 62 18 160/98 H 93 High Flow Nasal Cannula 10/05/21 23:09 66 10/05/21 22:54 High Flow Nasal Cannula 10/05/21 19:38 36.5 C 67 18 192/99 H 96 Nasal Cannula O2 Flow Rate 10/06/21 02:48 10 10/05/21 23:17 10 10/05/21 23:09 10/05/21 22:54 10 10/05/21 19:38 10 Laboratory Results 10/06/21 10/06/21 10/06/21 Range/Units 09:15 09:15 05:38 WBC (4.8-10.8) K/ul RBC (4.63-6.08) M/uL Hgb (14.0-18.0) g/dl Hct (40.1-51.0) % MCV (80.0-100.0) fL MCH (25.0-34.0) pg MCHC (32.0-36.0) g/dL RDW Std Deviation (36.4-46.3) fL RDW Coeff of Curtis (11.5-14.5) % Plt Count (130-400) K/uL MPV (9.4-12.4) fL Sodium 143 (136-145) mmol/L Potassium 4.3 (3.5-5.1) mmol/L Chloride 109 H (98-107) mmol/L Carbon Dioxide 26 (21-32) mmol/L Anion Gap 8 (3-11) BUN 50 H (6-23) mg/dl Creatinine 1.74 H (0.6-1.4) mg/dl Est Cr Clr Drug Dosing 34.4 ml/min Est GFR ( Amer) 41.4 ml/min Est GFR (Non-Af Amer) 35.7 ml/min BUN/Creatinine Ratio 28.7 H (10-20) Glucose 146 H (70-99(Fasting)) mg/dl Lactate (0.4-2.0) mmol/L Calcium 9.0 (8.5-10.1) mg/dl C-Reactive Protein (0-0.5) mg/dl B-Natriuretic Peptide 547 H (0-100) pg/ml Procalcitonin 0.07 (0-0.5) ng/ml Nasal Screen MRSA (PCR) (Negative) 10/06/21 10/05/21 10/05/21 Range/Units 05:38 20:58 18:22 WBC 7.46 (4.8-10.8) K/ul RBC 4.62 L (4.63-6.08) M/uL Hgb 13.7 L (14.0-18.0) g/dl Hct 42.3 (40.1-51.0) % MCV 91.6 (80.0-100.0) fL MCH 29.7 (25.0-34.0) pg MCHC 32.4 (32.0-36.0) g/dL RDW Std Deviation 46.5 H (36.4-46.3) fL RDW Coeff of Curtis 13.8 (11.5-14.5) % Plt Count 154 (130-400) K/uL MPV 11.3 (9.4-12.4) fL Sodium (136-145) mmol/L Potassium (3.5-5.1) mmol/L Chloride (98-107) mmol/L Carbon Dioxide (21-32) mmol/L Anion Gap (3-11) BUN (6-23) mg/dl Creatinine (0.6-1.4) mg/dl Est Cr Clr Drug Dosing ml/min Est GFR ( Amer) ml/min Est GFR (Non-Af Amer) ml/min BUN/Creatinine Ratio (10-20) Glucose (70-99(Fasting)) mg/dl Lactate (0.4-2.0) mmol/L Calcium (8.5-10.1) mg/dl C-Reactive Protein 3.47 H (0-0.5) mg/dl B-Natriuretic Peptide (0-100) pg/ml Procalcitonin (0-0.5) ng/ml Nasal Screen MRSA (PCR) Negative (Negative) 10/05/21 Range/Units 18:22 WBC (4.8-10.8) K/ul RBC (4.63-6.08) M/uL Hgb (14.0-18.0) g/dl Hct (40.1-51.0) % MCV (80.0-100.0) fL MCH (25.0-34.0) pg MCHC (32.0-36.0) g/dL RDW Std Deviation (36.4-46.3) fL RDW Coeff of Curtis (11.5-14.5) % Plt Count (130-400) K/uL MPV (9.4-12.4) fL Sodium (136-145) mmol/L Potassium (3.5-5.1) mmol/L Chloride (98-107) mmol/L Carbon Dioxide (21-32) mmol/L Anion Gap (3-11) BUN (6-23) mg/dl Creatinine (0.6-1.4) mg/dl Est Cr Clr Drug Dosing ml/min Est GFR ( Amer) ml/min Est GFR (Non-Af Amer) ml/min BUN/Creatinine Ratio (10-20) Glucose (70-99(Fasting)) mg/dl Lactate 1.2 (0.4-2.0) mmol/L Calcium (8.5-10.1) mg/dl C-Reactive Protein (0-0.5) mg/dl B-Natriuretic Peptide (0-100) pg/ml Procalcitonin (0-0.5) ng/ml Nasal Screen MRSA (PCR) (Negative) Medications Administered Current Inpatient Medications Acetaminophen (Acetaminophen 500 Mg Tab) 1,000 mg PO Q6H PRN PRN Reason: Pain or Fever Stop: 11/04/21 00:18 Last Admin: 10/05/21 16:08 Dose: 1,000 mg Albuterol (Albut/Ipratrop 3mg/0.5mg Neb 3 Ml Vial) 3 ml INH Q6R PRN; Protocol PRN Reason: Shortness Of Breath Or Wheezing Stop: 10/31/21 09:14 Last Admin: 10/05/21 13:33 Dose: 3 ml Amlodipine Besylate (Amlodipine Besylate 5 Mg Tab) 5 mg PO QAM [facility] Stop: 11/05/21 08:59 Last Admin: 10/06/21 09:16 Dose: 5 mg Apixaban (Apixaban 2.5 Mg Tab) 2.5 mg PO BID [facility] Stop: 10/29/21 20:59 Last Admin: 10/06/21 09:17 Dose: 2.5 mg Benzonatate (Benzonatate 100 Mg Capsule) 100 mg PO TID PRN PRN Reason: cough Stop: 10/29/21 20:29 Last Admin: 10/05/21 00:36 Dose: 100 mg Bethanechol Chloride (Bethanechol Chl 25 Mg Tab) 50 mg PO QID [facility] Stop: 10/29/21 20:59 Last Admin: 10/06/21 12:33 Dose: 50 mg Bupropion HCl (Bupropion Sr 100 Mg Tabcr) 100 mg PO BID [facility] Stop: 10/29/21 20:59 Last Admin: 10/06/21 09:16 Dose: 100 mg Carvedilol (Carvedilol 3.125 Mg Tab) 3.125 mg PO BIDM [facility] Stop: 10/29/21 16:59 Last Admin: 10/06/21 09:15 Dose: 3.125 mg Ciprofloxacin (Ciprofloxacin Hcl 0.3% Op Soln 2.5 Ml Btl) 2 drops OPB Q4HWA [facility] Stop: 10/09/21 21:14 Last Admin: 10/06/21 12:33 Dose: 2 drops Docusate Sodium (Docusate Sodium 100 Mg Cap) 100 mg PO BID PRN PRN Reason: Constipation Stop: 10/29/21 20:29 Donepezil HCl (Donepezil Hcl 10 Mg Tab) 10 mg PO [facility] Stop: 10/29/21 20:59 Last Admin: 10/05/21 20:29 Dose: 10 mg Famotidine (Famotidine 40 Mg Tablet) 40 mg PO DAILYBB [facility] Stop: 10/30/21 06:29 Last Admin: 10/06/21 05:44 Dose: 40 mg Ferrous Sulfate (Ferrous Sulfate 325 Mg Tab) [facility]: 10/30/21 08:59 Last Admin: 10/06/21 09:17 Dose: 325 mg Gabapentin (Gabapentin 300 Mg Cap) 300 mg PO [facility] Stop: 10/29/21 20:59 Last Admin: 10/05/21 20:30 Dose: 300 mg Guaifenesin (Guaifenesin 600 Mg Tabcr) 600 mg PO Q12 [facility] Stop: 10/29/21 20:59 Last Admin: 10/06/21 09:16 Dose: 600 mg Methylprednisolone 40 mg/ (Syringe) 0.64 mls @ 1.5 mls/min IV BID [facility] Stop: 11/04/21 20:59 Last Admin: 10/06/21 09:15 Dose: 1.5 mls/min Cefepime HCl 2,000 mg/ Syringe 20 mls @ 5 mls/min IV Q12H [facility]; Protocol Stop: 10/12/21 19:29 Last Admin: 10/06/21 09:15 Dose: 5 mls/min Isosorbide Mononitrate (Isosorbide [place] Extended Rel 30 Mg Tabcr) [facility] [place] Stop: 10/30/21 08:59 Last Admin: 10/06/21 09:17 Dose: 30 mg Levothyroxine Sodium (Levothyroxine Sodium 112 Mcg Tablet) 112 mcg PO DAILYBB [facility] Stop: 10/30/21 06:29 Last Admin: 10/06/21 05:44 Dose: 112 mcg Memantine (Memantine Hcl 10 Mg Tab) 10 mg PO BID [facility] Stop: 10/29/21 20:59 Last Admin: 10/06/21 09:17 Dose: 10 mg Simvastatin (Simvastatin 80 Mg Tab) 80 mg PO HS [facility] Stop: 10/29/21 20:59 Last Admin: 10/05/21 20:31 Dose: 80 mg Tamsulosin HCl (Tamsulosin Hcl 0.4 Mg Cap) 0.4 mg PO HS [facility] Stop: 10/29/21 20:59 Last Admin: 10/05/21 20:32 Dose: 0.4 mg Umeclidinium/Vilanterol (Umeclidinium/Vilanterol 62.5/25mcg 7 Puffs/Inhaler) 1 puffs INH DAILY [facility] Stop: 11/02/21 09:44 Last Admin: 10/06/21 09:17 Dose: 1 puffs Resident Activity Tracking Resident Involvement: Resident Care Provided Care Provided: Adult [facility] Medicine
[2021-10-06 06:51] LABS: BUN Creatinine Ratio 28.7 (10-20); Creatinine Clr Calc Pharmacy 34.4 ml/min; Est GFR (African American) 41.4 ml/min; Est GFR (Non-African American) 35.7 ml/min; Potassium 4.3 mmol/L (3.5-5.1)
--- NOTE | 2021-10-06 08:54 | Pulmonary Consultation ---
Date of Consultation October 06, 2021 Assessment & Plan (1) Acute respiratory failure with hypoxia: (2) Nocturnal hypoxia: (3) Multifocal pneumonia: (4) Abnormal chest CT: (5) Pneumonia due to COVID-19 virus: (6) COPD with emphysema: Plan Chest x-ray 10/05/2021 personally reviewed: Portable film, fair inspiratory effort, patchy alveolar opacities appreciated on the right side in the periphery, minimal blunting of bilateral costophrenic angles. Dual-chamber pacemaker in place Alveolar opacity seems to be new compared to the chest x-ray which was done on 09/29/2021 2D echo 09/30/2021: EF 45-50%, mild global hypokinesis, grade 1 diastolic dysfunction, mild AR, mild to moderate MR, right ventricle normal in size and function CT chest 10/06/2021 personally reviewed: Patchy groundglass opacities appreciated bilaterally more on the right side Cardiomegaly No mediastinal lymphadenopathy --Acute on chronic hypoxic respiratory failure Multifactorial Systolic plus diastolic CHF playing a sport Patient also had COVID-19 + 09/19/[address] findings most likely go with COVID-19 pneumonia which he has been positive for on 09/19/2021. He might be developing fibrotic component BNP 547 10/06/21 Procalcitonin 0.07 Nasal MRSA negative --Covid-19 Diagnosed 09/19/2021 Did not receive any treatment for it Does not qualify for any treatment right now --COPD On Anoro -- CHANELLE Noncompliant with CPAP I do benefit patient will benefit from CPAP --A. fib On Eliquis Plan: In/out: -3.8 L since coming to the hospital Given that the nasal MRSA is negative, procalcitonin is 0.07 I highly doubt that this is hospital-acquired pneumonia Forming this is most likely changes in the lung from Covid-19 pneumonia and pulmonary edema on top of that and the damage along. Patient is diuresing well. Continue with diuresis to keep the patient negative balance Continue with incentive spirometry and flutter valve along with Mucinex I do not think Solu-Medrol is helping a lot. Would recommend to go down to once daily and then gradually titrated off Okay to de-escalate antibiotic Case discussed with Dr Gibbs Please note the above document was generated using voice recognition software. It may contain grammatical, syntax or spelling errors.Any formal questions or concerns about the content, text or information contained within the body of this dictation should be directly addressed to the provider for clarification. History of Present Illness Attending Physician: Germain Dennis DO History of Present Illness 81-year-old male was admitted to hospital on 09/29/2021 for shortness of breath Past medical history: Paroxysmal A. fib, coronary artery disease, CKD, Alzheimer's dementia, hypothyroidism At the time of examination patient was saturating 96-97% on 8 L nasal cannula I was gradually able to go down to 4 L and he was still saturating 91-92% Patient says he is doing better compared to before. Shortness of breath is improved. Denies any headache, no nausea vomiting Is coughing was not bringing up any phlegm Denies any belly pain, no diarrhea Fair appetite No blurry vision Social history: Ex-smoker approximately [id number] smoking history quit in the 60s. Allergies Allergy/AdvReac Type Severity Reaction Status Date / Time captopril Allergy Severe Anaphylaxis Verified 09/29/21 17:34 Iodinated Contrast Media Allergy Severe Anaphylaxis Verified 09/29/21 17:34 morphine Allergy Severe Anaphylaxis Verified 09/29/21 17:34 oxaprozin Allergy Severe Anaphylaxis Verified 09/29/21 17:34 torsemide Allergy Severe Anaphylaxis Verified 09/29/21 17:34 hydrocodone Allergy Mild Rash Verified 09/29/21 17:34 Home Medications Medication Instructions Recorded Confirmed Type acetaminophen 325 mg tablet 650 mg PO Q4H PRN pain #30 tabs 08/14/19 09/29/21 Rx folic acid 1 mg tablet 1 mg PO QAM #90 tabs 10/04/19 09/29/21 Rx albuterol sulfate 90 mcg/actuation 2 puff inhalation Q6H PRN 07/09/20 09/29/21 Rx aerosol inhaler (Ventolin HFA) cough/wheeze/shortness of breath #1 inhaler cyanocobalamin (vitamin B-12) 1,000 mcg PO QAM 07/16/20 09/29/21 History 1,000 mcg tablet ferrous sulfate 325 mg (65 mg 325 mg PO QAM 07/16/20 09/29/21 History iron) tablet,delayed release polyethylene glycol 3350 17 gram 17 g PO BID PRN Constipation 07/16/20 09/29/21 History oral powder packet (Miralax) ascorbic acid (vitamin C) 500 mg 500 mg PO QAM 10/22/20 09/29/21 History tablet (Vitamin C) docusate sodium 100 mg capsule 100 mg PO BID PRN Constipation 10/22/20 09/29/21 History (Stool Softener) vitamin E 268 mg (400 unit) capsule 400 unit PO HS 10/22/20 09/29/21 History albuterol sulfate 2.5 mg/3 mL 2.5 mg (3 mL) inhalation QID PRN 04/16/21 09/29/21 Rx (0.083 %) solution for nebulization shortness of breath or wheezing #75 mL isosorbide mononitrate 30 mg 30 mg PO QAM #90 tabs 05/22/21 09/29/21 Rx tablet,extended release 24 hr nystatin 100,000 unit/gram topical 1 applic topical UD PRN Skin 05/22/21 09/29/21 History cream Irritation gabapentin 300 mg capsule 300 mg PO HS #90 caps 06/14/21 09/29/21 Rx ipratropium 0.5 mg-albuterol 3 mg 3 ml inhalation Q6H PRN wheezing 06/20/21 09/29/21 Rx (2.5 mg base)/3 mL nebulization #90 mL soln levothyroxine 112 mcg tablet 112 mcg PO HS #90 tabs 07/03/21 09/29/21 Rx (Synthroid) bethanechol chloride 50 mg tablet 50 mg PO QID #360 tabs 07/09/21 09/29/21 Rx simvastatin 80 mg tablet 80 mg PO HS #90 tabs 07/09/21 09/29/21 Rx bupropion HCl 100 mg tablet,12 hr 100 mg PO BID #60 ea 08/09/21 09/29/21 Rx sustained-release apixaban 2.5 mg tablet (Eliquis) 2.5 mg PO BID #180 tabs 08/13/21 09/29/21 Rx tamsulosin 0.4 mg capsule 0.4 mg PO HS #30 caps 08/22/21 09/29/21 Rx tramadol 50 mg tablet 50 mg PO TID PRN Pain #30 tabs 09/03/21 09/29/21 Rx memantine 10 mg tablet (Namenda) 10 mg PO BID #180 tabs 09/09/21 09/29/21 Rx Oxygen Home #1 ea 09/21/21 Rx benzonatate 100 mg capsule 100 mg PO TID PRN cough #30 caps 09/23/21 09/29/21 Rx donepezil 10 mg tablet 10 mg PO HS #90 tabs 09/23/21 09/29/21 Rx Oxygen Home #1 ea 09/24/21 Rx calcium carbonate 500 mg-vitamin 1 tab PO DAILY 09/29/21 09/29/21 History D3 5 mcg (200 unit) tablet carvedilol 3.125 mg tablet 3.125 mg PO BIDWMEAL 09/29/21 09/29/21 History famotidine 40 mg tablet (Pepcid) 40 mg PO DAILYBB 09/29/21 09/29/21 History Patient History Medical History (Updated 10/06/21 @ 14:59 by Demian Rosenberg MD) Anxiety and depression Aortic stenosis Moderate per 07/12/21 ECHO- (AV max velocity 3.25m/s; AV mean gradient 29mmHg; UZMA, VTI 1.59cm2; UZMA, Vmax 1.55cm2) CAD (coronary artery disease) Multiple cardiac stents (x4 total)- most recent 3+ years ago 1997- LCx- stent Most recent cath 2013 per cardio records "LAD okay, LCX OM 30, RCA ok, NL EF" Chronic diastolic heart failure Stable per 04/2021 cardio note No diuretics needed at this time Chronic pain COPD (chronic obstructive pulmonary disease) Dementia 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 On donepezil and memantine, follows with neurology Dyslipidemia History of kidney stones History of OR (myocardial infarction) 1997- Follows with Dr. Hodge/Kassidy History of recent hospitalization Admitted to [facility] 07/10/21-07/14/21- for staph bacteremia secondary to infected wound at suprapubic catheter site, UTI, acute metabolic encephalopathy; per 08/09/21 neuro note- bacteremia resolved with abxs, acute metabolic encephalopathy resolved, mental status back to baseline, UTI/GIOVANY resolved after abx. 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 SSS Initially implanted in 2008- generator change in 2016 Paroxysmal atrial fibrillation NO HX CARDIOVERSION On Eliquis Recurrent UTI Secondary hyperparathyroidism of renal origin Sleep apnea NO DEVICE USED UNABLE TO TOLERATE CPAP Stage 3b chronic kidney disease Suprapubic catheter In place secondary to neurogenic bladder Surgical History (Updated 10/04/21 @ 11:51 by LIBAN Bridges) H/O total knee replacement R/L History of back surgery MULTIPLE History of cardiac cath Multiple cardiac stents (x4 total)- most recent 3+ years ago History of carpal tunnel release of both wrists History of cataract surgery B/L History of colonoscopy History of lithotripsy History of lumbar fusion History of prostate surgery Partial prostatectomy History of thyroidectomy secondary to goiter History of tooth extraction All teeth S/P cystoscopy with ureteral stent placement last 05/2021 @ [facility] Dr. William Medrano- Cystoscopy, Bilateral retrograde pyelogram, Bilateral ureteral stent exchange, Left aspiration and culture S/P TURP S/P ureteral stent placement Cysto, B/L RPG, right ureteroscopy, stent exchange: 07/06/18: LMA#5 at [facility] Cysto stent exchange (11/2018) Cystoscopy, stent exchange, suprapubic catheter (04/30/20): MAC at [facility] Family History Father Diabetes Mother Coronary heart disease Hypertension Brother Seizure Other No family history of adverse response to anesthesia Denies family history of Ovarian cancer Prostate cancer Myocardial infarction Breast cancer Colorectal cancer Social History Smoking Status: Unknown if ever smoked Tobacco Type: Cigarettes Age Started Using Tobacco: 15; Age Quit Using Tobacco: 59; packs per day: 2; Second Hand Exposure: No; Hx Alcohol Use: No Hx Substance Use: No Preferred Language: Amharic Communication Ability: Effective Visual Impairment: No Limitations Hearing Ability: Hard of Hearing [employer] Helper Required: No Beliefs That Will Affect Care: None marital status: Current Living Situation: Family Current Living Situation Comment: spouse and daughters current occupational status: retired How many Children do You have: 3 Feels Safe at Home: Yes Childhood Exposure to Second-Hand Smoke: No caffeine: Yes (Coffee 3 per day.) during the past year weight has: remained stable Dental Care, Regularly: No Physical Activity Frequency: Does not Exercise Seatbelt Use: always Sunscreen Use: No Assistive Devices: Oxygen - at Night, Walker and Wheelchair Review of Systems Review of Systems: All systems reviewed & are unremarkable except as noted in HPI & below and Unobtainable due to cognitive status Physical Exam Physical Exam: Constitutional: No acute distress HEENT: EOMI, PERRLA Respiratory system: Decreased air entry bilaterally, no wheeze, no rhonchi, positive crackles bilateral lower lobes CVS: S1-S2 positive, no murmurs or gallops Abdomen: Soft, nontender, nondistended, positive bowel sounds x4, obese Extremities: +2 pulses bilaterally radialis/ dorsalis pedis, no cyanosis, no edema Neuro: Awake alert oriented x3 Psych: Normal mood and affect G/U: Positive Michel Skin: no rashes, warm and dry Lymphatic: no cervical or axillary lymphadenopathy Results & Data Results & Data ([facility]) Vital Signs (Past 12 Hours) Vital Signs Temp Pulse Pulse Resp BP Pulse Ox O2 Del Method 10/06/21 08:00 36.8 C 62 22 180/102 H 75 L Nasal Cannula 10/06/21 07:12 56 L 10/06/21 02:48 36.3 C L 62 22 183/83 H 91 Nasal Cannula 10/05/21 23:17 36.4 C L 62 18 160/98 H 93 High Flow Nasal Cannula 10/05/21 23:09 66 10/05/21 22:54 High Flow Nasal Cannula O2 Flow Rate 10/06/21 08:00 6 10/06/21 07:12 10/06/21 02:48 10 10/05/21 23:17 10 10/05/21 23:09 10/05/21 22:54 10 Laboratory Results 10/06/21 05:38 10/06/21 05:38 PG Care Time/CCT Total # of Minutes Spent Total Time Spent with Patient: Total time spent is greater than 50% in coordination of care (as documented) at patient's floor/unit and/or counseling patient: Coding Level of Care Code 77948 Initial Inpt Care Lvl 3 Diagnoses Acute respiratory failure with hypoxia J96.01 Nocturnal hypoxia G47.34 Multifocal pneumonia J18.[address] R93.89 Pneumonia due to COVID-19 virus U07.1; J12.82 COPD with emphysema J43.9
[2021-10-06] MEDS ORDERED: methylPREDNISolone 30 MG in SYRINGE 0 ML IV SCH (09:00)
[2021-10-06] MEDS: CEFEPIME 2,000 MG in SYRINGE 0 ML IV SCH (09:15)
[2021-10-06] MEDS: CIPROFLOXACIN HCL 0.3% OP SOLN 2.5 ML BTL OPB SCH ×4 (09:15→19:37)
[2021-10-06] MEDS: methylPREDNISolone 40 MG in SYRINGE 0 ML IV SCH (09:15)
[2021-10-06] MEDS: carvediloL 3.125 MG TAB PO SCH ×2 (09:15→16:25)
[2021-10-06] MEDS: amLODIPine BESYLATE 5 MG TAB PO SCH (09:16)
[2021-10-06] MEDS: guaiFENesin 600 MG TABCR PO SCH ×2 (09:16→19:43)
[2021-10-06] MEDS: buPROPion SR 100 MG TABCR PO SCH ×2 (09:16→19:40)
[2021-10-06] MEDS: BETHANECHOL CHL 25 MG TAB PO SCH ×4 (09:16→19:40)
[2021-10-06] MEDS: UMECLIDINIUM/VILANTEROL 62.5/25MCG 7 PUFFS/INHALER INH SCH (09:17)
[2021-10-06] MEDS: FERROUS SULFATE 325 MG TAB PO SCH (09:17)
[2021-10-06] MEDS: MEMANTINE HCL 10 MG TAB PO SCH ×2 (09:17→19:44)
[2021-10-06] MEDS: APIXABAN 2.5 MG TAB PO SCH ×2 (09:17→19:39)
[2021-10-06] MEDS: ISOSORBIDE MONO EXTENDED REL 30 MG TABCR PO SCH (09:17)
--- NOTE | 2021-10-06 10:25 | CT Scan Report ---
CT OF THE CHEST WITHOUT IV CONTRAST CLINICAL HISTORY: Increasing O2 demand. Evaluate for infiltrate/ Edema. COMPARISON STUDY: Chest radiograph October 05, 2021. CT DOSE: 943.66 mGy.cm TECHNIQUE: Axial images of the chest were obtained without IV contrast. Images were reviewed in the axial, sagittal, and coronal planes. IV contrast was not administered for this examination. Automat ed exposure control was utilized for the study. A dose lowering technique was utilized adhering to t he principles of ALARA. FINDINGS: A dual-lead left subclavian pacer is in place. There is moderate cardiomegaly and extensiv e coronary artery calcification. No pericardial effusion. No pneumothorax or pleural effusion is pres ent. Lungs are suboptimally assessed due to respiratory motion. There are extensive airspace opacitie s throughout the right lung. Mild multifocal airspace opacities within the left lung are present. The re is no cavitation. Central airways are patent. There are minimal secretions within the right mainst em bronchus. No acute fracture or suspicious lesion within the visualized bony thorax. Left ureteral stent is partially imaged. There are suspected left-sided parapelvic cysts. There is probable dilatat ion of the right upper pole renal calyces. Renal cortical thinning is partially imaged. The gallbladd er is surgically absent. IMPRESSION: 1. Extensive airspace opacities throughout the right lung. Mild airspace opacities within the left terry ng. The findings favor an infectious process with multifocal pneumonia. Asymmetric pulmonary edema co uld appear similar but is considered less likely. 2. Cardiomegaly. Extensive coronary artery calcification. 3. Probable dilatation of the visualized calyces within the upper pole of the right kidney. ACT 112: Negative or not required by law. Electronically signed by: Glen Melvin M.D. 10/06/2021 10:23 AM
[2021-10-06] MEDS ORDERED: FUROSEMIDE INJ 20 MG/2 ML VIAL IV ONE (17:22)
[2021-10-06] MEDS: DONEPEZIL HCL 10 MG TAB PO SCH (19:41)
[2021-10-06] MEDS: DOXYCYCLINE HYCLATE 100 MG CAP PO SCH (19:42)
[2021-10-06] MEDS: GABAPENTIN 300 MG CAP PO SCH (19:42)
[2021-10-06] MEDS: SIMVASTATIN 80 MG TAB PO SCH (19:44)
[2021-10-06] MEDS: TAMSULOSIN HCL 0.4 MG CAP PO SCH (19:45)
[2021-10-07] MEDS: LEVOTHYROXINE SODIUM 112 MCG TABLET PO SCH (05:36)
[2021-10-07] MEDS: FAMOTIDINE 40 MG TABLET PO SCH (05:36)
[2021-10-07 07:46] LABS: Hematocrit (blood only) 38.2 % (40.1-51.0); Hemoglobin 12.4 g/dl (14.0-18.0); Mean Corpuscular Hemoglobin 30.2 pg (25.0-34.0); Mean Corpuscular Hgb Conc 32.5 g/dL (32.0-36.0); Mean Corpuscular Volume 93.2 fL (80.0-100.0); Mean Platelet Volume 12.6 fL (9.4-12.4); Platelet Count 142 K/uL (130-400); RDW Coefficient of Variation 14.2 % (11.5-14.5); RDW Standard Deviation 47.9 fL (36.4-46.3); White Blood Count 15.81 K/ul (4.8-10.8)
[2021-10-07] MEDS: ISOSORBIDE MONO EXTENDED REL 30 MG TABCR PO SCH (08:02)
[2021-10-07] MEDS: guaiFENesin 600 MG TABCR PO SCH ×2 (08:03→20:42)
[2021-10-07] MEDS: MEMANTINE HCL 10 MG TAB PO SCH ×2 (08:03→20:43)
[2021-10-07] MEDS: DOXYCYCLINE HYCLATE 100 MG CAP PO SCH ×2 (08:03→20:40)
[2021-10-07] MEDS: carvediloL 3.125 MG TAB PO SCH ×2 (08:04→17:47)
[2021-10-07] MEDS: BETHANECHOL CHL 25 MG TAB PO SCH ×4 (08:04→20:39)
[2021-10-07] MEDS: amLODIPine BESYLATE 5 MG TAB PO SCH (08:04)
[2021-10-07] MEDS: buPROPion SR 100 MG TABCR PO SCH ×2 (08:05→20:40)
[2021-10-07] MEDS: CIPROFLOXACIN HCL 0.3% OP SOLN 2.5 ML BTL OPB SCH ×3 (08:05→17:47)
[2021-10-07] MEDS: FERROUS SULFATE 325 MG TAB PO SCH (08:05)
[2021-10-07] MEDS: APIXABAN 2.5 MG TAB PO SCH ×2 (08:05→20:41)
[2021-10-07] MEDS: UMECLIDINIUM/VILANTEROL 62.5/25MCG 7 PUFFS/INHALER INH SCH (08:07)
[2021-10-07] MEDS: methylPREDNISolone 40 MG in SYRINGE 0 ML IV SCH (08:09)
[2021-10-07 08:23] LABS: Calcium 8.8 mg/dl (8.5-10.1); Creatinine Clr Calc Pharmacy 28.2 ml/min; Est GFR (African American) 32.2 ml/min; Est GFR (Non-African American) 27.8 ml/min
[2021-10-07] MEDS ORDERED: methylPREDNISolone 20 MG in SYRINGE 0 ML IV SCH (09:00)
--- NOTE | 2021-10-07 11:43 | Pulmonology Progress Note ---
Date of Service October 07, 2021 Assessment & Plan (1) Acute respiratory failure with hypoxia: (2) COPD with emphysema: (3) Pneumonia due to COVID-19 virus: (4) Abnormal chest CT: Plan Impression: 81-year-old male with progressive pulmonary infiltrates in the setting of diagnosed COVID and obstructive lung disease in the setting of dementia. Recommendations: 1. Bilateral pulmonary infiltrates. Etiology unclear. Procalcitonin has been negative on 2 separate occasions. The patient's been empirically diuresed and BNP has decreased from 547 down to 298. CRP is decreased from 3.47 down to 2.99. Appears to be less likely associated with a bacterial infection. Patient is on doxycycline currently. Inflammatory process such as aspiration or organizing pneumonia is possible. He has been placed on methylprednisolone 40 mg daily. Pulmonary hemorrhage possible as the patient is anticoagulated on Eliquis but is not coughing up blood. His white count is elevated however this is in the setting of steroids and he is not been febrile. At this point in time would continue to manage expectantly and see how he responds to steroids and antibiotics. We did discuss potential need for bronchoscopy with BAL however in this 81-year-old demented patient, would like to avoid invasive procedures if possible. I did attempt to have a discussion with this patient regarding adva nced directives. He states he would want everything done although I am not sure he has the capacity to understand the complexity of the decision-making process. Would favor discussions with his family and potentially palliative care consultation if the patient's clinical condition were to worsen. I am not sure he is a great candidate for mechanical ventilation in the long-term given his underlying neurocognitive dysfunction. 2. In the setting of hyponatremia and increasing serum creatinine, we will not sure that I would push additional diuretics at this point in time. 3. Patient had speech therapy evaluation at his last hospitalization with no evidence of aspiration. 4. COVID 19: Management per primary service. Given his decreasing CRP and other markers, do not think he would qualify for adjuvant therapy. Its unclear how much of this current process would be related to COVID pneumonitis. Will continue to follow with you. Feel free to contact us with questions or concerns Admission and Anticipated Discharge Date Admission Date: September 29, 2021 Subjective Patient seen and examined. EMR reviewed. Discussed with off going web search evaluator. The patient states that his breathing is better than when he came in. His speech is dysarthric but he does appear to be able to answer questions appropriately. He states he is occasionally coughing but not bringing up much in the way of phlegm. No hemoptysis. He denies chest pain or palpitations. Review of Systems Review of Systems: Unobtainable due to cognitive status Physical Exam Constitutional: WD/WN, vitals as above Neck: trachea midline, no thyromegaly Respiratory: no respiratory distress, no labored breathing and not tachypneic Auscultation: + diminished lung sounds and + crackles; no wheezes Cardiovascular: RRR, no murmur, no edema Gastrointestinal (Abdomen): normal bowel sounds, soft, nontender, no hepatosplenomegaly Musculoskeletal: Extremities: extremities normal to inspection Skin: no rashes, warm and dry Neurologic: Nonfocal exam Lymphatic: no cervical lymphadenopathy Results & Data Results & Data ([facility]) Vital Signs (Past 12 Hours) Vital Signs Temp Pulse Pulse Resp BP Pulse Ox O2 Del Method 10/07/21 09:18 High Flow Nasal Cannula 10/07/21 07:46 36.3 C L 70 17 169/94 H 89 L Nasal Cannula 10/07/21 07:15 63 10/07/21 04:00 36.8 C 68 17 147/78 H 90 Oxymask 10/06/21 23:44 36.7 C 72 16 158/95 H 88 L High Flow Nasal Cannula O2 Flow Rate 10/07/21 09:18 8 10/07/21 07:46 10/07/21 07:15 10/07/21 04:00 8 10/06/21 23:44 8 Laboratory Results 10/07/21 07:03 10/07/21 07:03 Diagnostic Findings No new imaging PG Care Time/CCT Total # of Minutes Spent Total Time Spent with Patient: Total time spent is greater than 50% in coordination of care (as documented) at patient's floor/unit and/or counseling patient: Coding Level of Care Code 91524 Subseq Hosp Care Lvl 3 Diagnoses Acute respiratory failure with hypoxia J96.01 COPD with emphysema J43.9 Pneumonia due to COVID-19 virus U07.1; J12.[address] R93.89
[2021-10-07] MEDS: ALBUT/IPRATROP 3MG/0.5MG NEB 3 ML VIAL INH SCH ×2 (13:17→19:32)
--- NOTE | 2021-10-07 18:31 | Hospitalist Progress Note ---
Date of Service October 07, 2021 Assessment & Plan (1) Acute respiratory failure with hypoxia: Plan: 81yo male with a history of Alzheimer's, recurrent CAUTI, paroxysmal afib, CAD with AR, CKD, iron-deficiency anemia, hypothyroidism, CHOLO, MDD, and recent covid infection presents with shortness of breath for about two weeks, then found by EMS to be hypoxic to the mid-80s. Acute hypoxic respiratory failure Patient noted to by hypoxic to mid-80s by EMS, though spO2 was adequate on 4L NC upon arrival. Afebrile, no tachycardia or tachypnea, procalcitonin negative, blood culture negative after 24 hours CXR: mild interstitial thickening, interval development of right lung hazy opacities concerning for asymmetric pulmonary edema vs developing pneumonia; cardiomegaly and trace left pleural effusion persisting from prior imaging Likely multifactorial given history of HFpEF, COPD, recent COVID Patient received vanc/cefepime in ED, dc'd, completed course of azithromycin Guaifenesin, Tessalon Pearls Incentive spirometry, flutter valve PT/OT-recommending longterm with rehab upon discharge. -Repeat CXR: Airspace opacities are seen throughout both lungs, asymmetrically greater on the right. -Chest CT: Extensive airspace opacities throughout the right lung. Mild airspace opacities within the left lung. The findings favor an infectious process with multifocal pneumonia. -Consulted Pulmonology Etiology unknown Empirically diuresed, hold for now. Cr bumped >2. Cont. methylprednisone 40mg IV daily Cont. doxycycline Repeat chest CT in 6-8wks -Continue supplemental oxygen as needed, wean as indicated; patient was on 2L at home when sleeping per Gross hematuria In the setting of suprapubic catheter Differential includes catheter irritation/trauma versus cystitis among others Bilateral ureteral stents and suprapubic catheter last exchanged 08/22/2021. UA on admission infected appearing but has been noted in urology visits that he is colonized and will always show positive UA results Culture has been significant for Monalisa infection but this has always been present on previous cultures Blood cultures negative Urology following CHANELLE Patient has documented severe obstructive sleep apnea Nonadherent with CPAP at home and refuses here Uses 2L nasal cannula at home while sleeping encourage CPAP use daily COPD exacerbation, improved Cont. Anoro Ellipta blister once a day on 10/03 for maintenance COPD medication Methylprednisolone 40mg IV daily Duonebs changed to q6h FLEX Azithromycin completed on 10/04 Chronic HFpEF, stable Patient appeared fluid overloaded based on physical exam on admission Due to CKD history and being diuretic cinthia. Empiric diuretics as above. Accurate I/O's, Daily weights Daily BMP Conjunctivitis Ciprofloxicin oph two drops each eye q4hwa x5 days. Completed. Warm compress q4h Continue to monitor Bacteriuria, history of CAUTI Patient with suprapubic catheter and history of CAUTI Afebrile, no leukocytosis, no flank tenderness, procal negative Given the above, suspect UA findings represent colonization rather than infection Urine culture so far has grown Monalisa albicans but no bacteria currently. See plan above Encourage PO intake to maintain adequate hydration CAD, history of AR, elevated hsTroponin Initial hsTroponin elevated to 38.4, repeat 41.9 - no further repeat values indicated based on small delta EKG: junctional rhythm per automated read, rate 85, no overt ischemic change Suspect elevated hsTroponin secondary to demand ischemia from afib vs hypoxia with CKD Continue home regimen Paroxysmal atrial fibrillation Not in afib on admission, rate not elevated Continue home eliquis, beta blockade CKD3 Creatinine on admission 1.78 which appears to be near baseline, now 2.14. We will hold off of diuretics for now. Trend BMP, avoid unnecessary nephrotoxins Alzheimer's: continue home regimen Iron-deficiency anemia: mild, MCV wnl, continue home iron supplementation CHOLO, MDD: continue home regimen Hypothyroidism: continue home regimen FEN: heart-healthy diet, low-sodium Code status: full code DVT ppx: home eliquis Dispo: med/telemetry with COVID precautions, discharge to SNF facility when able. Patient is not COVID vaccinated which makes placement very difficult. (2) AICD (automatic cardioverter/defibrillator) present: (3) Anemia: (4) CAD (coronary artery disease): (5) Catheter-associated urinary tract infection: (6) COVID-19: (7) Dementia: (8) Dyslipidemia: (9) History of AR (myocardial infarction): (10) Nocturnal hypoxia: (11) Paroxysmal atrial fibrillation: (12) Stage 3b chronic kidney disease: (13) Chronic diastolic heart failure: Admission and Anticipated Discharge Date Admission Date: September 29, 2021 Supervising Physician Co-Signing Physician Notes I personally examined the patient and verified all delaney points of history and exam, discussed case, and agree with decision making with Dr Hodge feels "like an old man" - does have some dyspnea. vitals noted fatigued but nad heent nc at mmm lungs diminished no r/r/w no accessory muscles Impression and plan Acute hypoxic respiratory failure COPD exacerbation Pneumonia Multifactorial, history of HFpEF, COPD, with acute COVID-19 diagnosis Pulmonary consult appreciated continue abx and steroids CHANELLE Not entirely compliant with CPAP at home, refusing here Does use oxygen at night, 3 L via nasal cannula otherwise as above Subjective Seen at bedside this morning. Appears comfortable. On nasal cannula which keeps falling off head. Unsure if he has capacity mental status waxes and wanes. Denies chest pain, SOB, N/V, abdominal pain, headache. Review of Systems Review of Systems: All systems reviewed & are unremarkable except as noted in HPI & below Physical Exam Physical Exam: Constitutional: No acute distress, comfortable, pleasant HEENT: NCAT. EOMI. Resp: Decreased air entry bilaterally, no wheeze, no rhonchi, mild crackles bilateral lower lobes Cardio: RRR. No murmurs. Abdomen: Soft, nontender, nondistended,+BS Extremities: +2 pulses bilaterally radialis/dorsalis pedis, no cyanosis, no edema Neuro: Awake Psych: Normal mood and affect G/U: Michel intact Results & Data Results & Data ([facility]) Vital Signs (Past 12 Hours) Vital Signs Temp Pulse Pulse Pulse Resp BP Pulse Ox 10/07/21 15:39 66 10/07/21 15:17 36.6 C 67 14 165/85 H 94 10/07/21 13:17 70 18 98 10/07/21 11:40 36.4 C L 65 17 143/78 H 89 L 10/07/21 09:18 10/07/21 07:46 36.3 C L 70 17 169/94 H 89 L 10/07/21 07:15 63 O2 Del Method O2 Flow Rate 10/07/21 15:39 10/07/21 15:17 Nasal Cannula 10/07/21 13:17 Nasal Cannula 10 10/07/21 11:40 Room Air 10/07/21 09:18 High Flow Nasal Cannula 8 10/07/21 07:46 Nasal Cannula 08/29/22 07:15 Laboratory Results 10/07/21 10/07/21 10/07/21 Range/Units 08:37 08:37 08:37 WBC (4.8-10.8) K/ul RBC (4.63-6.08) M/uL Hgb (14.0-18.0) g/dl Hct (40.1-51.0) % MCV (80.0-100.0) fL MCH (25.0-34.0) pg MCHC (32.0-36.0) g/dL RDW Std Deviation (36.4-46.3) fL RDW Coeff of Curtis (11.5-14.5) % Plt Count (130-400) K/uL MPV (9.4-12.4) fL Sodium (136-145) mmol/L Potassium (3.5-5.1) mmol/L Chloride (98-107) mmol/L Carbon Dioxide (21-32) mmol/L Anion Gap (3-11) BUN (6-23) mg/dl Creatinine (0.6-1.4) mg/dl Est Cr Clr Drug Dosing ml/min Est GFR ( Amer) ml/min Est GFR (Non-Af Amer) ml/min BUN/Creatinine Ratio (10-20) Glucose (70-99(Fasting)) mg/dl Calcium (8.5-10.1) mg/dl C-Reactive Protein 2.99 H (0-0.5) mg/dl B-Natriuretic Peptide 298 H (0-100) pg/ml Procalcitonin 0.11 (0-0.5) ng/ml 10/07/21 10/07/21 Range/Units 07:03 07:03 WBC 15.81 H (4.8-10.8) K/ul RBC 4.10 L (4.63-6.08) M/uL Hgb 12.4 L (14.0-18.0) g/dl Hct 38.2 L (40.1-51.0) % MCV 93.2 (80.0-100.0) fL MCH 30.2 (25.0-34.0) pg MCHC 32.5 (32.0-36.0) g/dL RDW Std Deviation 47.9 H (36.4-46.3) fL RDW Coeff of Curtis 14.2 (11.5-14.5) % Plt Count 142 (130-400) K/uL MPV 12.6 H (9.4-12.4) fL Sodium 147 H (136-145) mmol/L Potassium 4.0 (3.5-5.1) mmol/L Chloride 112 H (98-107) mmol/L Carbon Dioxide 27 (21-32) mmol/L Anion Gap 8 (3-11) BUN 62 H (6-23) mg/dl Creatinine 2.14 H D (0.6-1.4) mg/dl Est Cr Clr Drug Dosing 28.2 ml/min Est GFR ( Amer) 32.2 ml/min Est GFR (Non-Af Amer) 27.8 ml/min BUN/Creatinine Ratio 29.0 H (10-20) Glucose 117 H (70-99(Fasting)) mg/dl Calcium 8.8 (8.5-10.1) mg/dl C-Reactive Protein (0-0.5) mg/dl B-Natriuretic Peptide (0-100) pg/ml Procalcitonin (0-0.5) ng/ml Resident Activity Tracking Resident Involvement: Resident Care Provided Care Provided: Adult Hospital Medicine
--- NOTE | 2021-10-07 19:06 | Billing Data ---
Date of Service October 07, 2021 Coding Level of Care Code 46618 Subseq Hosp Care Lvl 3
[2021-10-07] MEDS: DONEPEZIL HCL 10 MG TAB PO SCH (20:41)
[2021-10-07] MEDS: SIMVASTATIN 80 MG TAB PO SCH (20:42)
[2021-10-07] MEDS: TAMSULOSIN HCL 0.4 MG CAP PO SCH (20:42)
[2021-10-07] MEDS: GABAPENTIN 300 MG CAP PO SCH (20:43)
[2021-10-08] MEDS: ALBUT/IPRATROP 3MG/0.5MG NEB 3 ML VIAL INH SCH ×4 (00:02→19:53)
[2021-10-08] MEDS: FAMOTIDINE 40 MG TABLET PO SCH (05:10)
[2021-10-08] MEDS: LEVOTHYROXINE SODIUM 112 MCG TABLET PO SCH (05:11)
[2021-10-08 06:14] LABS: Basophils # (auto) 0.02 K/uL (0-0.2); Basophils % (auto) 0.1 %; Hematocrit (blood only) 38.6 % (40.1-51.0); Hemoglobin 12.6 g/dl (14.0-18.0); Immature Granulocytes # (auto) 0.12 K/uL (0.00-0.02); Immature Granulocytes % (auto) 0.8 %; Lymphocytes # (auto) 1.17 K/uL (1.2-3.4); Lymphocytes % (auto) 7.6 %; Mean Corpuscular Hemoglobin 30.3 pg (25.0-34.0); Mean Corpuscular Hgb Conc 32.6 g/dL (32.0-36.0); Mean Corpuscular Volume 92.8 fL (80.0-100.0); Monocytes # (auto) 0.85 K/uL (0.24-0.82); Monocytes % (auto) 5.5 %; Neutrophils # (auto) 13.21 K/uL (1.4-6.5); Platelet Count 175 K/uL (130-400); RDW Coefficient of Variation 14.1 % (11.5-14.5); RDW Standard Deviation 47.7 fL (36.4-46.3); Red Blood Count 4.16 M/uL (4.63-6.08); White Blood Count 15.37 K/ul (4.8-10.8)
[2021-10-08 06:45] LABS: BUN Creatinine Ratio 32.7 (10-20); C Reactive Protein 3.2 mg/dl (0-0.5); Calcium 9.1 mg/dl (8.5-10.1); Creatinine Clr Calc Pharmacy 29.2 ml/min; Est GFR (Non-African American) 29.3 ml/min; Potassium 3.8 mmol/L (3.5-5.1)
[2021-10-08] MEDS: methylPREDNISolone 40 MG in SYRINGE 0 ML IV SCH (08:07)
[2021-10-08] MEDS: UMECLIDINIUM/VILANTEROL 62.5/25MCG 7 PUFFS/INHALER INH SCH (08:08)
[2021-10-08 08:22] LABS: Base Excess ABG 0.6 mEq/L (-9-1.8); HCO3 ABG 25 mmol/L (19-24); Oxygen Saturation ABG 97.3 % (90-95); PCO2 ABG 36 mmHg (35-46); PO2 ABG 75 mmHg (80-95); pH ABG 7.44 (7.35-7.45)
[2021-10-08 08:25] LABS: Allen Test Pos (Pos)
[2021-10-08] MEDS ORDERED: FUROSEMIDE 40 MG/4 ML VIAL IV ONE (08:32)
[2021-10-08] MEDS ORDERED: PIPERACILLIN/TAZOBACTAM 4.5 GM in DEXTROSE 5% 100 ML IV SCH (08:45)
[2021-10-08] MEDS ORDERED: PIPERACILLIN/TAZOBACTAM 4.5 GM in DEXTROSE 5% 100 ML IV ONE (09:00)
[2021-10-08] MEDS ORDERED: methylPREDNISolone 10 MG in SYRINGE 0 ML IV SCH (09:00)
[2021-10-08] MEDS ORDERED: methylPREDNISolone 60 MG in SYRINGE 0 ML IV SCH (09:00)
--- NOTE | 2021-10-08 09:24 | XRay Report ---
XR chest 1V portable HISTORY: AHRF. Shortness of breath. COMPARISON: Chest 10/05/2021. FINDINGS: Slightly rotated study. No pneumothorax. No pleural effusion is. The cardiac silhouette rem ains top normal in size. Is left-sided dual-chamber pacemaker. Calcifications within the aortic knob again noted. There are old, healed left-sided rib fractures. Patchy bilateral airspace opacities, rig ht greater the left, have slightly improved in the interval. IMPRESSION: Slight improvement in the patchy bilateral airspace opacities. ACT 112: Negative or not required by law. Electronically signed by: Travis Cabrera M.D. 10/08/2021 9:23 AM
[2021-10-08] MEDS: guaiFENesin 600 MG TABCR PO SCH ×2 (09:37→21:41)
[2021-10-08] MEDS: ISOSORBIDE MONO EXTENDED REL 30 MG TABCR PO SCH (09:37)
[2021-10-08] MEDS: APIXABAN 2.5 MG TAB PO SCH ×2 (09:37→21:39)
[2021-10-08] MEDS: FERROUS SULFATE 325 MG TAB PO SCH (09:37)
[2021-10-08] MEDS: BETHANECHOL CHL 25 MG TAB PO SCH ×4 (09:37→21:41)
[2021-10-08] MEDS: buPROPion SR 100 MG TABCR PO SCH ×2 (09:38→21:39)
[2021-10-08] MEDS: MEMANTINE HCL 10 MG TAB PO SCH ×2 (09:38→21:40)
[2021-10-08] MEDS: amLODIPine BESYLATE 5 MG TAB PO SCH (09:38)
[2021-10-08] MEDS: carvediloL 3.125 MG TAB PO SCH ×2 (09:38→17:26)
[2021-10-08] MEDS: DOXYCYCLINE HYCLATE 100 MG CAP PO SCH ×2 (09:38→21:38)
--- NOTE | 2021-10-08 11:02 | Pulmonology Progress Note ---
Date of Service October 08, 2021 Assessment & Plan (1) Acute respiratory failure with hypoxia: (2) COPD with emphysema: (3) Pneumonia due to COVID-19 virus: (4) Abnormal chest CT: Plan Impression: 81-year-old male with progressive pulmonary infiltrates in the setting of diagnosed COVID and obstructive lung disease in the setting of dementia. He appears to be improving from a radiographic standpoint but did have escalation in his oxygen requirement overnight. We were able to de- escalate at this morning. Recommendations: 1. Bilateral pulmonary infiltrates. Likely multifactorial. He appears him proved radiographically with steroids diuresis. We were able to significantly wean his oxygen this morning. Would try and target oxygen saturations 88 to 90%. Can likely make additional improvements in his oxygen requirement over the course of today. The patient would definitely do better being out of bed to chair and upright if possible. His neurocognitive function may limit those interventions. It is antibiotics escalated to Zosyn doxycycline overnight. In the absence of fever and with a normal procalcitonin, I do not believe that he requires antimicrobial therapy but will defer to the primary service. Steroids were also increased to 60 mg of Solu-Medrol daily although I am unclear what we are treating at this point in time. We will discontinue Solu-Medrol and transition him over to dexamethasone. Agree with DNR status. Would not recommend bipap at this time. 2. In the setting of hypernatremia and increasing serum creatinine, we will not sure that I would push additional diuretics at this point in time. Keep I/O even. 3. Patient had speech therapy evaluation at his last hospitalization with no evidence of aspiration. 4. COVID 19: Transition to dexamethasone 6 mg po daily and observe. Will continue to follow with you. Feel free to contact us with questions or concerns Admission and Anticipated Discharge Date Admission Date: September 29, 2021 Subjective Patient seen and examined. EMR reviewed. Discussed with overnight cross coverage this morning. The patient is awake alert conversant. He is in no respiratory distress. He has been transitioned to high flow. On my initial assessment he was saturating at 97 to 98% on 70% and 30 L/min. I turned him down to 50% at 30 L/min we maintain oxygen saturation levels around 94%. History is complicated by the patient's underlying dementia. He offers no complaints. He specifically denies any chest pain palpitations cough or sputum production. Review of Systems Review of Systems: Unobtainable due to cognitive status Physical Exam Constitutional: WD/WN, vitals as above Neck: trachea midline, no thyromegaly Respiratory: no respiratory distress, no labored breathing and not tachypneic Auscultation: + diminished lung sounds and + crackles; no wheezes Cardiovascular: RRR, no murmur, no edema Gastrointestinal (Abdomen): normal bowel sounds, soft, nontender, no hepatosplenomegaly Musculoskeletal: Extremities: extremities normal to inspection Skin: no rashes, warm and dry Lymphatic: no cervical lymphadenopathy Results & Data Results & Data ([facility]) Vital Signs (Past 12 Hours) Vital Signs Temp Pulse Pulse Resp BP BP Pulse Ox 10/08/21 09:54 89 182/84 H 98 10/08/21 07:39 36.4 C L 87 20 177/83 H 91 10/08/21 07:12 70 20 92 10/08/21 07:11 70 18 96 10/08/21 04:34 36.4 C L 69 18 177/86 H 89 L 10/08/21 00:02 75 18 88 L 10/07/21 23:44 O2 Del Method O2 Flow Rate FiO2 10/08/21 09:54 High Flow Nasal Cannula 30 10/08/21 07:39 High Flow Nasal Cannula 30 10/08/21 07:12 High Flow Nasal Cannula 30 70 10/08/21 07:11 Non-rebreather 15 10/08/21 04:34 Nasal Cannula 11.0 10/08/21 00:02 Nasal Cannula 13 10/07/21 23:44 High Flow Nasal Cannula 10 Laboratory Results 10/08/21 05:49 10/08/21 05:49 Diagnostic Findings Chest x-ray from today was independently reviewed. It demonstrates partial clearing of the airspace opacities. The lung bases are better visualized. No effusion. No pneumothorax. No increased interstitial markings today. PG Care Time/CCT Total # of Minutes Spent Total Time Spent with Patient: Total time spent is greater than 50% in coordination of care (as documented) at patient's floor/unit and/or counseling patient: Coding Level of Care Code 32495 Subseq Hosp Care Lvl 3 Diagnoses Acute respiratory failure with hypoxia J96.01 COPD with emphysema J43.9 Pneumonia due to COVID-19 virus U07.1; J12.[address] R93.89
--- NOTE | 2021-10-08 12:44 | CT Scan Report ---
CT OF THE CHEST WITHOUT IV CONTRAST CLINICAL HISTORY: Acute hypercapnic respiratory failure. Pneumonia. COMPARISON STUDY: Chest CT October 06, 2021. Chest radiograph October 08, 2021 at 9:[address] DOSE: 462.23 mGy.cm TECHNIQUE: Axial images of the chest were obtained without IV contrast. Images were reviewed in the axial, sagittal, and coronal planes. IV contrast was not administered for this examination. Automat ed exposure control was utilized for the study. A dose lowering technique was utilized adhering to t he principles of ALARA. FINDINGS: Left subclavian pacer is in place. Cardiomegaly is noted. There is no pericardial effusion . There is extensive coronary artery calcification No pneumothorax or pleural effusion is noted. Lung s are suboptimally assessed due to respiratory motion. Mild multifocal airspace opacities within the left lung have slightly improved since CT of October 06, 2021. Right lower lobe consolidation has incr eased with diminished aeration since prior exam. Extensive airspace opacity within the right upper lo be has decreased however degree of consolidation has slightly increased. There is no cavitation. No a cute fracture or suspicious lesion within the visualized bony thorax. Suspected parapelvic cyst withi n the upper pole of the left kidney is partially imaged. IMPRESSION: 1. Mild increase in degree of consolidation within the right lung since prior exam although extent of airspace opacity has slightly decreased. The findings represent multifocal pneumonia. Diminished rig ht lower lobe aeration. 2. Slight improvement in left lung airspace opacities. 3. No pleural effusion. No cavitation. ACT 112: Negative or not required by law. Electronically signed by: Glen Melvin M.D. 10/08/2021 12:42 PM
[2021-10-08] MEDS: PIPERACILLIN/TAZOBACTAM 3.375 GM in DEXTROSE 5% 100 ML IV SCH ×2 (14:07→21:41)
--- NOTE | 2021-10-08 15:49 | Urology Progress Note ---
Date of Service October 08, 2021 Assessment & Plan (1) Chronic suprapubic catheter: Plan: - Urology asked to assess suprapubic catheter. - Due to significant leakage, catheter was upsized to an 18 F. - Using sterile technique, the 16 F silicone catheter was exchanged to an 18 F silicone catheter. Balloon inflated with 10 mL. - Patient tolerated procedure well, no complications. - Continue supportive care, antibiotics and management per primary service. - will sign off. Admission and Anticipated Discharge Date Admission Date: September 29, 2021 Subjective Urology called by nursing to assess SP tube due to significant leakage from site. Patient is awake and resting in bed. Appears comfortable. Offers no complaints. No f/c/n/v. Suprapubic catheter intact and draining clear urine with minimal pink tinge in tubing. Dressings surrounding SP tube site are saturated. Nursing reports multiple bed changes due to leakage around site. Dr. Mccabe exchanged SP catheter on 10/06/21. Review of Systems Constitutional: as per Subjective / HPI Gastrointestinal: as per Subjective / HPI Genitourinary: + as per Subjective / HPI Physical Exam Constitutional: well developed and well nourished; no acute distress Respiratory: no respiratory distress and no labored breathing Gastrointestinal (Abdomen): Inspection/Auscultation: abdomen normal to inspection; abdomen not distended Percussion/Palpation: abdomen soft; abdomen nontender Musculoskeletal: Head/Neck/Chest: normocephalic and head atraumatic Neurologic: moves all extremities and awake Psychiatric: Orientation: alert and oriented to person Genitourinary: 16 F silicone Suprapubic catheter intact and draining clear urine with minimal pink tinge in tubing. Using sterile technique, 16F silicone was exchanged for an 18F silicone catheter. Balloon inflated to 10 mL. SP catheter patent and draining clear urine with minimal pink tinge at completion. Pt tolerated well. Results & Data ([facility]) Vital Signs (Past 12 Hours) Vital Signs Temp Pulse Pulse Pulse Resp BP BP 10/08/21 15:13 36.5 C 66 17 153/84 H 10/08/21 06:15 63 10/08/21 13:31 66 20 10/08/21 11:51 10/08/21 11:15 36.3 C L 67 20 144/80 H 10/08/21 09:54 89 182/84 H 10/08/21 07:39 36.4 C L 87 20 177/83 H 10/08/21 07:12 70 20 10/08/21 07:11 70 18 10/08/21 04:34 36.4 C L 69 18 177/86 H Pulse Ox O2 Del Method O2 Flow Rate FiO2 10/08/21 15:13 98 Nasal Cannula 8 10/08/21 06:15 10/08/21 13:31 99 Nasal Cannula 15 10/08/21 11:51 Non-rebreather 10 10/08/21 11:15 93 High Flow Nasal Cannula 30 50 10/08/21 09:54 98 High Flow Nasal Cannula 30 10/08/21 07:39 91 High Flow Nasal Cannula 30 10/08/21 07:12 92 High Flow Nasal Cannula 30 70 10/08/21 07:11 96 Non-rebreather 15 10/08/21 04:34 89 L Nasal Cannula 11.0 PG Care Time/CCT Total # of Minutes Spent Total Time Spent with Patient: Total time spent is greater than 50% in coordination of care (as documented) at patient's floor/unit and/or counseling patient: Coding Level of Care Code 33651 Subseq Hosp Care Lvl 2 Diagnoses Chronic suprapubic catheter Z93.59
[2021-10-08] MEDS: dexAMETHasone 1 MG TAB PO SCH (17:25)
--- NOTE | 2021-10-08 18:40 | Hospitalist Progress Note ---
Date of Service October 08, 2021 Assessment & Plan (1) Acute respiratory failure with hypoxia: Plan: 81yo male with a history of Alzheimer's, recurrent CAUTI, paroxysmal afib, CAD with CO, CKD, iron-deficiency anemia, hypothyroidism, CHOLO, MDD, and recent covid infection presents with shortness of breath for about two weeks, then found by EMS to be hypoxic to the mid-80s. Acute hypoxic respiratory failure Patient noted to by hypoxic to mid-80s by EMS, though spO2 was adequate on 4L NC upon arrival. Afebrile, no tachycardia or tachypnea, procalcitonin negative, blood culture negative after 24 hours CXR (09/29): mild interstitial thickening, interval development of right lung hazy opacities concerning for asymmetric pulmonary edema vs developing pneumonia; cardiomegaly and trace left pleural effusion persisting from prior imaging Likely multifactorial given history of HFpEF, COPD, recent COVID Patient received vanc/cefepime in ED, dc'd, completed course of azithromycin Guaifenesin, Tessalon Pearls Incentive spirometry, flutter valve PT/OT-recommending alf with rehab upon discharge. -repeat CXR (10/05): Airspace opacities are seen throughout both lungs, asymmetrically greater on the right. -repeat CXR (10/08): slight improvement in patchy bilateral airspace opacities -Chest CT (10/06): Extensive airspace opacities throughout the right lung. Mild airspace opacities within the left lung. The findings favor an infectious process with multifocal pneumonia. -Repeat chest CT (10/08): mild increase in consolidation in R lung, airspace opacity slightly decreased. Findings represent multifocal pneumonia. Diminished RLL aeration. -Consulted Pulmonology Etiology unknown Empirically diuresed on 10/07. Cr bumped >2. Additional dose given 10/08 due to worsening oxygenation status. D/c'd methylprednisone 40mg IV, transitioned to dexamethasone. Cont. doxycycline. Added zosyn to regimen for suspected pneumonia. -Continue supplemental oxygen as needed, wean as indicated; patient was on 2L at home when sleeping per . 10/08 in am, pt required 40L high flow O2. Would not tolerate bipap. Lacked capacity. Discussed status with and family and decision was made to make Alfredo DNR/DNI. After subsequent treatment, oxygenation status did improve now back down to 8L. Etiology unknown but ddx includes infx/pneumonia, vascular congestion, ARDS, alveolar hemorrhage, mucus plug. Gross hematuria In the setting of suprapubic catheter Differential includes catheter irritation/trauma versus cystitis among others Bilateral ureteral stents and suprapubic catheter last exchanged 08/22/2021. UA on admission infected appearing but has been noted in urology visits that he is colonized and will always show positive UA results Culture has been significant for Monalisa infection but this has always been present on previous cultures Blood cultures negative -due to significant leak, catheter exchanged (10/08) Urology signed off at this time CHANELLE Patient has documented severe obstructive sleep apnea Nonadherent with CPAP at home and refuses here Uses 2L nasal cannula at home while sleeping encourage CPAP use daily COPD exacerbation, improved Cont. Anoro Ellipta blister once a day on 10/03 for maintenance COPD medication Methylprednisolone 40mg IV daily Duonebs changed to q6h FLEX Azithromycin completed on 10/04 Chronic HFpEF, stable Patient appeared fluid overloaded based on physical exam on admission Due to CKD history and being diuretic cinthia. Empiric diuretics as above. Accurate I/O's, Daily weights Daily BMP Conjunctivitis Ciprofloxicin oph two drops each eye q4hwa x5 days. Completed. Warm compress q4h Continue to monitor Bacteriuria, history of CAUTI Patient with suprapubic catheter and history of CAUTI Afebrile, no leukocytosis, no flank tenderness, procal negative Given the above, suspect UA findings represent colonization rather than infection Urine culture so far has grown Monalisa albicans but no bacteria currently. See plan above Encourage PO intake to maintain adequate hydration CAD, history of CO, elevated hsTroponin Initial hsTroponin elevated to 38.4, repeat 41.9 - no further repeat values indicated based on small delta EKG: junctional rhythm per automated read, rate 85, no overt ischemic change Suspect elevated hsTroponin secondary to demand ischemia from afib vs hypoxia with CKD Continue home regimen Paroxysmal atrial fibrillation Not in afib on admission, rate not elevated Continue home eliquis, beta blockade CKD3 Creatinine on admission 1.78 which appears to be near baseline, now 2.14. We will hold off of diuretics for now. Trend BMP, avoid unnecessary nephrotoxins Alzheimer's: continue home regimen Iron-deficiency anemia: mild, MCV wnl, continue home iron supplementation CHOLO, MDD: continue home regimen Hypothyroidism: continue home regimen FEN: HH, low sodium Code status: full DVT ppx: home Eliquis Dispo: med/telemetry with COVID precautions, discharge to SNF facility when able.Not covid vaccinated. (2) AICD (automatic cardioverter/defibrillator) present: (3) Anemia: (4) CAD (coronary artery disease): (5) Catheter-associated urinary tract infection: (6) COVID-19: (7) Dementia: (8) Dyslipidemia: (9) History of CO (myocardial infarction): (10) Nocturnal hypoxia: (11) Paroxysmal atrial fibrillation: (12) Stage 3b chronic kidney disease: (13) Chronic diastolic heart failure: Admission and Anticipated Discharge Date Admission Date: September 29, 2021 Supervising Physician Co-Signing Physician Notes I personally examined the patient and verified all delaney points of history and exam, discussed case, and agree with decision making with Dr Hodge not much dyspnea when i see him. Oxygen requirements had dramatically increased through the night. Treatment plan as outlined above, discussed extensively with resident physician. vitals noted fatigued but nad heent nc at mmm lungs diminished no r/r/w no accessory muscles Impression and plan Acute hypoxic respiratory failure COPD exacerbation Pneumonia Multifactorial, history of HFpEF, COPD, with acute COVID-19 diagnosis worse overnight - treatment escalated. Appearing more stable when I see him. CHANELLE Not entirely compliant with CPAP at home, refusing here Does use oxygen at night, 3 L via nasal cannula otherwise as above Subjective Overnight, required increased oxygenation. Seen at bedside this morning. Appears comfortable. Mentation waxes/wanes, similar to yesterday. Does not appear to have capacity. Some SOB this morning. Up to 40L O2 this morning. Denies chest pain, N/V, abdominal pain, headache. Review of Systems Review of Systems: All systems reviewed & are unremarkable except as noted in HPI & below Physical Exam Physical Exam: Constitutional: No acute distress, comfortable, pleasant HEENT: NCAT. EOMI. Resp: Decreased air entry bilaterally, no wheeze, no rhonchi, mild crackles bilateral lower lobes Cardio: RRR. No murmurs. Abdomen: Soft, nontender, nondistended,+BS Extremities: +2 pulses bilaterally radialis/dorsalis pedis, no cyanosis, no edema Psych: awake. Only oriented to self, lacks capacity. G/U: Michel intact w/ hematuria Results & Data Results & Data ([facility]) Vital Signs (Past 12 Hours) Vital Signs Temp Pulse Pulse Pulse Resp BP Pulse Ox 10/08/21 18:06 65 10/08/21 15:13 36.5 C 66 17 153/84 H 98 10/08/21 13:31 66 20 99 10/08/21 11:51 10/08/21 11:15 36.3 C L 67 20 144/80 H 93 10/08/21 09:54 89 182/84 H 98 10/08/21 07:39 36.4 C L 87 20 177/83 H 91 10/08/21 07:12 70 20 92 10/08/21 07:11 70 18 96 O2 Del Method O2 Flow Rate FiO2 10/08/21 18:06 10/08/21 15:13 Nasal Cannula 8 10/08/21 13:31 Nasal Cannula 15 10/08/21 11:51 Non-rebreather 10 10/08/21 11:15 High Flow Nasal Cannula 30 50 10/08/21 09:54 High Flow Nasal Cannula 30 10/08/21 07:39 High Flow Nasal Cannula 30 10/08/21 07:12 High Flow Nasal Cannula 30 70 10/08/21 07:11 Non-rebreather 15 Laboratory Results 10/08/21 10/08/21 10/08/21 Range/Units 11:15 08:45 08:45 WBC (4.8-10.8) K/ul RBC (4.63-6.08) M/uL Hgb (14.0-18.0) g/dl Hct (40.1-51.0) % MCV (80.0-100.0) fL MCH (25.0-34.0) pg MCHC (32.0-36.0) g/dL RDW Std Deviation (36.4-46.3) fL RDW Coeff of Curtis (11.5-14.5) % Plt Count (130-400) K/uL MPV (9.4-12.4) fL Immature Gran % (Auto) % Neut % (Auto) % Lymph % (Auto) % Jackson % (Auto) % Eos % (Auto) % Baso % (Auto) % Neut # (Auto) (1.4-6.5) K/uL Lymph # (Auto) (1.2-3.4) K/uL Jackson # (Auto) (0.24-0.82) K/uL Eos # (Auto) (0-0.50) K/uL Baso # (Auto) (0-0.2) K/uL Immature Gran # (Auto) (0.00-0.02) K/uL ABG pH (7.35-7.45) ABG pCO2 (35-46) mmHg ABG pO2 (80-95) mmHg ABG HCO3 (19-24) mmol/L ABG O2 Saturation (90-95) % ABG Base Excess (-9-1.8) mEq/L Bunny Test (Pos) Oxygen Given Sodium (136-145) mmol/L Potassium (3.5-5.1) mmol/L Chloride (98-107) mmol/L Carbon Dioxide (21-32) mmol/L Anion Gap (3-11) BUN (6-23) mg/dl Creatinine (0.6-1.4) mg/dl Est Cr Clr Drug Dosing ml/min Est GFR ( Amer) ml/min Est GFR (Non-Af Amer) ml/min BUN/Creatinine Ratio (10-20) Glucose (70-99(Fasting)) mg/dl Calcium (8.5-10.1) mg/dl C-Reactive Protein (0-0.5) mg/dl B-Natriuretic Peptide 266 H (0-100) pg/ml Procalcitonin 0.05 (0-0.5) ng/ml Nasal Screen MRSA (PCR) Negative (Negative) 10/08/21 10/08/21 10/08/21 Range/Units 08:04 05:49 05:49 WBC 15.37 H (4.8-10.8) K/ul RBC 4.16 L (4.63-6.08) M/uL Hgb 12.6 L (14.0-18.0) g/dl Hct 38.6 L (40.1-51.0) % MCV 92.8 (80.0-100.0) fL MCH 30.3 (25.0-34.0) pg MCHC 32.6 (32.0-36.0) g/dL RDW Std Deviation 47.7 H (36.4-46.3) fL RDW Coeff of Curtis 14.1 (11.5-14.5) % Plt Count 175 (130-400) K/uL MPV 11.0 (9.4-12.4) fL Immature Gran % (Auto) 0.8 % Neut % (Auto) 86.0 % Lymph % (Auto) 7.6 % Jackson % (Auto) 5.5 % Eos % (Auto) 0.0 % Baso % (Auto) 0.1 % Neut # (Auto) 13.21 H (1.4-6.5) K/uL Lymph # (Auto) 1.17 L (1.2-3.4) K/uL Jackson # (Auto) 0.85 H (0.24-0.82) K/uL Eos # (Auto) 0.00 (0-0.50) K/uL Baso # (Auto) 0.02 (0-0.2) K/uL Immature Gran # (Auto) 0.12 H (0.00-0.02) K/uL ABG pH 7.44 (7.35-7.45) ABG pCO2 36 (35-46) mmHg ABG pO2 75 L (80-95) mmHg ABG HCO3 25 H (19-24) mmol/L ABG O2 Saturation 97.3 H (90-95) % ABG Base Excess 0.6 (-9-1.8) mEq/L Bunny Test Pos (Pos) Oxygen Given 85% FiO2 Sodium 145 (136-145) mmol/L Potassium 3.8 (3.5-5.1) mmol/L Chloride 113 H (98-107) mmol/L Carbon Dioxide 24 (21-32) mmol/L Anion Gap 8 (3-11) BUN 67 H (6-23) mg/dl Creatinine 2.05 H (0.6-1.4) mg/dl Est Cr Clr Drug Dosing 29.2 ml/min Est GFR ( Amer) 34.0 ml/min Est GFR (Non-Af Amer) 29.3 ml/min BUN/Creatinine Ratio 32.7 H (10-20) Glucose 118 H (70-99(Fasting)) mg/dl Calcium 9.1 (8.5-10.1) mg/dl C-Reactive Protein 3.20 H (0-0.5) mg/dl B-Natriuretic Peptide (0-100) pg/ml Procalcitonin (0-0.5) ng/ml Nasal Screen MRSA (PCR) (Negative) Resident Activity Tracking Resident Involvement: Resident Care Provided Care Provided: Adult Hospital Medicine
--- NOTE | 2021-10-08 19:18 | Billing Data ---
Date of Service October 08, 2021 Coding Level of Care Code 49739 Subseq Hosp Care Lvl 3
--- NOTE | 2021-10-08 19:18 | Billing Data ---
Date of Service October 08, 2021 Coding Level of Care Code 32461 Subseq Hosp Care Lvl 3
[2021-10-08] MEDS: SIMVASTATIN 80 MG TAB PO SCH (21:39)
[2021-10-08] MEDS: DONEPEZIL HCL 10 MG TAB PO SCH (21:40)
[2021-10-08] MEDS: GABAPENTIN 300 MG CAP PO SCH (21:40)
[2021-10-08] MEDS: TAMSULOSIN HCL 0.4 MG CAP PO SCH (21:41)
[2021-10-09] MEDS: ALBUT/IPRATROP 3MG/0.5MG NEB 3 ML VIAL INH SCH ×4 (01:15→19:48)
[2021-10-09] MEDS: FAMOTIDINE 40 MG TABLET PO SCH (05:01)
[2021-10-09] MEDS: PIPERACILLIN/TAZOBACTAM 3.375 GM in DEXTROSE 5% 100 ML IV SCH ×3 (05:01→21:12)
[2021-10-09] MEDS: LEVOTHYROXINE SODIUM 112 MCG TABLET PO SCH (05:01)
--- NOTE | 2021-10-09 07:20 | Hospitalist Progress Note ---
Date of Service October 09, 2021 Assessment & Plan (1) Acute respiratory failure with hypoxia: Plan: 81yo male with a history of Alzheimer's, recurrent CAUTI, paroxysmal afib, CAD with HI, CKD, iron-deficiency anemia, hypothyroidism, CHOLO, MDD, and recent covid infection presents with shortness of breath for about two weeks, then found by EMS to be hypoxic to the mid-80s. Acute hypoxic respiratory failure Patient noted to by hypoxic to mid-80s by EMS, though spO2 was adequate on 4L NC upon arrival. Afebrile, no tachycardia or tachypnea, procalcitonin negative, blood culture negative after 24 hours CXR (09/29): mild interstitial thickening, interval development of right lung hazy opacities concerning for asymmetric pulmonary edema vs developing pneumonia; cardiomegaly and trace left pleural effusion persisting from prior imaging Likely multifactorial given history of HFpEF, COPD, recent COVID Patient received vanc/cefepime in ED, completed course of azithromycin. Guaifenesin, Tessalon Pearls prn Incentive spirometry, flutter valve PT/OT-recommending jail with rehab upon discharge. -repeat CXR (10/05): Airspace opacities are seen throughout both lungs, asymmetrically greater on the right. -repeat CXR (10/08): slight improvement in patchy bilateral airspace opacities -Chest CT (10/06): Extensive airspace opacities throughout the right lung. Mild airspace opacities within the left lung. The findings favor an infectious process with multifocal pneumonia. -Repeat chest CT (10/08): mild increase in consolidation in R lung, airspace opacity slightly decreased. Findings represent multifocal pneumonia. Diminished RLL aeration. -Consulted Pulmonology Etiology unknown, likely inflammatory Empirically diuresed on 10/07. Cr bumped >2. Additional dose given 10/08 due to worsening oxygenation status. D/c'd methylprednisone 40mg IV, transitioned to dexamethasone (10/09) -Cont. doxycycline. Added zosyn to regimen for possible pneumonia. -Continue supplemental oxygen as needed, wean as indicated; patient was on 2L at home when sleeping per . 10/08 in am, pt required 40L high flow O2. Would not tolerate bipap. Lacked capacity. Discussed status with and family and decision was made to make Alfredo DNR/DNI. After subsequent treatment, oxygenation status did improve now back down to 8L. Etiology unknown but ddx includes infx/pneumonia, vascular congestion, ARDS, alveolar hemorrhage, mucus plug. Tx as above. Currently stable ~10-15L O2. Cont. to monitor. Gross hematuria In the setting of suprapubic catheter Differential includes catheter irritation/trauma versus cystitis among others Bilateral ureteral stents and suprapubic catheter last exchanged 08/22/2021. UA on admission infected appearing but has been noted in urology visits that he is colonized and will always show positive UA results Culture has been significant for Monalisa infection but this has always been present on previous cultures Blood cultures negative -due to significant leak, catheter exchanged (10/08) Urology signed off at this time H/o severe CHANELLE Nonadherent with CPAP at home and refuses here Uses 2L nasal cannula at home while sleeping encourage CPAP use daily COPD exacerbation, improved Cont. Anoro Ellipta blister once a day on 10/03 for maintenance COPD medication Methylprednisolone 40mg IV daily cont. Duonebs q6h FLEX Azithromycin completed on 10/04 Chronic HFpEF, stable Patient appeared fluid overloaded on admission Due to CKD history and being diuretic cinthia. Empiric diuretics as above. Accurate I/O's, Daily weights Daily BMP Conjunctivitis, resolved Ciprofloxicin oph two drops each eye q4hwa x5 days. Completed. Warm compress q4h Bacteriuria, history of CAUTI Patient with suprapubic catheter and history of CAUTI Afebrile, no leukocytosis, no flank tenderness, procal negative suspect UA findings represent colonization rather than infection Urine cx grew Monalisa albicans but no bacteria currently.See plan above. Encourage PO intake to maintain adequate hydration CAD, history of HI, elevated hsTroponin Initial hsTroponin elevated to 38.4, repeat 41.9 - no further repeat values indicated based on small delta EKG: junctional rhythm per automated read, rate 85, no overt ischemic change Suspect elevated hsTroponin secondary to demand ischemia from afib vs hypoxia with CKD Continue home regimen Paroxysmal atrial fibrillation Not in afib on admission, rate not elevated Continue home eliquis, beta blockade CKD3 Creatinine on admission 1.78 which appears to be near baseline, now >2. Will hold off of diuretics for now. Trend BMP, avoid unnecessary nephrotoxins Alzheimer's: continue home regimen Iron-deficiency anemia: mild, MCV wnl, continue home iron supplementation CHOLO, MDD: continue home regimen Hypothyroidism: continue home regimen FEN: HH, low sodium Code status: full DVT ppx: home Eliquis Dispo: med/tele. Discharge to SNF facility when able.Not covid vaccinated. COVID precautions removed. (2) AICD (automatic cardioverter/defibrillator) present: (3) Anemia: (4) CAD (coronary artery disease): (5) Catheter-associated urinary tract infection: (6) COVID-19: (7) Dementia: (8) Dyslipidemia: (9) History of HI (myocardial infarction): (10) Nocturnal hypoxia: (11) Paroxysmal atrial fibrillation: (12) Stage 3b chronic kidney disease: (13) Chronic diastolic heart failure: Admission and Anticipated Discharge Date Admission Date: September 29, 2021 Supervising Physician Co-Signing Physician Notes I personally examined the patient and verified all delaney points of history and exam, discussed case, and agree with decision making with Dr Hodge feeling better overall. breathing OK, appetite reasonable. vitals noted fatigued but nad heent nc at mmm lungs improved air entry scattered rales no accessory muscles Impression and plan Acute hypoxic respiratory failure COPD exacerbation Pneumonia Multifactorial, history of HFpEF, COPD, with acute COVID-19 diagnosis doing better again continue current care CHANELLE Not entirely compliant with CPAP at home, refusing here Does use oxygen at night, 3 L via nasal cannula otherwise as above Subjective Stable overnight still requiring ~10L O2. Seen at bedside this morning. Appears comfortable. Mentation waxes/wanes, more alert than yesterday but not oriented. Does not appear to have capacity. SOB improved. Denies chest pain, N/V, abdominal pain, headache. Review of Systems Review of Systems: All systems reviewed & are unremarkable except as noted in HPI & below Physical Exam Physical Exam: Constitutional: No acute distress, comfortable, pleasant HEENT: NCAT. EOMI. Resp: improved air entry bilaterally, no wheeze, no rhonchi, no crackles. Cardio: RRR. No murmurs. Abdomen: Soft, nontender, nondistended,+BS Extremities: +2 pulses bilaterally radialis/dorsalis pedis, no cyanosis, no edema Psych: awake. Only oriented to self, lacks capacity. G/U: Michel intact w/ hematuria Results & Data Results & Data ([facility]) Vital Signs (Past 12 Hours) Vital Signs Temp Pulse Pulse Resp BP BP Pulse Ox 10/09/21 06:53 73 18 96 10/09/21 04:16 36.5 C 68 20 161/81 H 94 10/09/21 01:15 65 18 92 10/09/21 00:14 70 10/08/21 23:28 10/08/21 22:35 36.5 C 65 18 176/76 H 93 10/08/21 19:29 36.6 C 72 20 181/81 H 96 10/08/21 19:50 75 20 96 O2 Del Method O2 Flow Rate 10/09/21 06:53 Nasal Cannula 15 10/09/21 04:16 Nasal Cannula 15.0 10/09/21 01:15 Nasal Cannula 13 10/09/21 00:14 10/08/21 23:28 High Flow Nasal Cannula 13 10/08/21 22:35 Nasal Cannula 13.0 10/08/21 19:29 Nasal Cannula 15.0 10/08/21 19:50 Nasal Cannula 13 Laboratory Results 10/09/21 10/09/21 10/09/21 Range/Units 06:36 06:36 06:36 WBC 9.45 (4.8-10.8) K/ul RBC 4.39 L (4.63-6.08) M/uL Hgb 13.2 L (14.0-18.0) g/dl Hct 40.5 (40.1-51.0) % MCV 92.3 (80.0-100.0) fL MCH 30.1 (25.0-34.0) pg MCHC 32.6 (32.0-36.0) g/dL RDW Std Deviation 47.4 H (36.4-46.3) fL RDW Coeff of Curtis 13.9 (11.5-14.5) % Plt Count 163 (130-400) K/uL MPV 11.2 (9.4-12.4) fL Immature Gran % (Auto) 1.0 % Neut % (Auto) 88.0 % Lymph % (Auto) 6.9 % [place] % (Auto) 4.0 % Eos % (Auto) 0.0 % Baso % (Auto) 0.1 % Neut # (Auto) 8.32 H (1.4-6.5) K/uL Lymph # (Auto) 0.65 L (1.2-3.4) K/uL [place] # (Auto) 0.38 (0.24-0.82) K/uL Eos # (Auto) 0.00 (0-0.50) K/uL Baso # (Auto) 0.01 (0-0.2) K/uL Immature Gran # (Auto) 0.09 H (0.00-0.02) K/uL Sodium 145 (136-145) mmol/L Potassium 3.6 (3.5-5.1) mmol/L Chloride 110 H (98-107) mmol/L Carbon Dioxide 26 (21-32) mmol/L Anion Gap 9 (3-11) BUN 72 H (6-23) mg/dl Creatinine 2.20 H (0.6-1.4) mg/dl Est Cr Clr Drug Dosing 25.0 ml/min Est GFR ( Amer) 31.2 ml/min Est GFR (Non-Af Amer) 26.9 ml/min BUN/Creatinine Ratio 32.7 H (10-20) Glucose 167 H (70-99(Fasting)) mg/dl Calcium 9.0 (8.5-10.1) mg/dl C-Reactive Protein 2.40 H (0-0.5) mg/dl Procalcitonin < 0.05 (0-0.5) ng/ml Resident Activity Tracking Resident Involvement: Resident Care Provided Care Provided: Adult Hospital Medicine
[2021-10-09 07:24] LABS: Basophils # (auto) 0.01 K/uL (0-0.2); Basophils % (auto) 0.1 %; Hematocrit (blood only) 40.5 % (40.1-51.0); Hemoglobin 13.2 g/dl (14.0-18.0); Immature Granulocytes # (auto) 0.09 K/uL (0.00-0.02); Lymphocytes # (auto) 0.65 K/uL (1.2-3.4); Lymphocytes % (auto) 6.9 %; Mean Corpuscular Hemoglobin 30.1 pg (25.0-34.0); Mean Corpuscular Hgb Conc 32.6 g/dL (32.0-36.0); Mean Corpuscular Volume 92.3 fL (80.0-100.0); Mean Platelet Volume 11.2 fL (9.4-12.4); Monocytes # (auto) 0.38 K/uL (0.24-0.82); Neutrophils # (auto) 8.32 K/uL (1.4-6.5); Platelet Count 163 K/uL (130-400); RDW Coefficient of Variation 13.9 % (11.5-14.5); RDW Standard Deviation 47.4 fL (36.4-46.3); Red Blood Count 4.39 M/uL (4.63-6.08); White Blood Count 9.45 K/ul (4.8-10.8)
[2021-10-09 07:51] LABS: BUN Creatinine Ratio 32.7 (10-20); C Reactive Protein 2.4 mg/dl (0-0.5); Est GFR (African American) 31.2 ml/min; Est GFR (Non-African American) 26.9 ml/min; Potassium 3.6 mmol/L (3.5-5.1)
[2021-10-09] MEDS: guaiFENesin 600 MG TABCR PO SCH ×2 (08:32→19:16)
[2021-10-09] MEDS: BETHANECHOL CHL 25 MG TAB PO SCH ×4 (08:32→19:17)
[2021-10-09] MEDS: ISOSORBIDE MONO EXTENDED REL 30 MG TABCR PO SCH (08:32)
[2021-10-09] MEDS: amLODIPine BESYLATE 5 MG TAB PO SCH (08:33)
[2021-10-09] MEDS: FERROUS SULFATE 325 MG TAB PO SCH (08:33)
[2021-10-09] MEDS: DOXYCYCLINE HYCLATE 100 MG CAP PO SCH ×2 (08:33→19:16)
[2021-10-09] MEDS: APIXABAN 2.5 MG TAB PO SCH ×2 (08:33→19:16)
[2021-10-09] MEDS: MEMANTINE HCL 10 MG TAB PO SCH ×2 (08:33→19:16)
[2021-10-09] MEDS: buPROPion SR 100 MG TABCR PO SCH ×2 (08:33→19:16)
[2021-10-09] MEDS: UMECLIDINIUM/VILANTEROL 62.5/25MCG 7 PUFFS/INHALER INH SCH (08:34)
[2021-10-09] MEDS: carvediloL 3.125 MG TAB PO SCH ×2 (08:34→16:50)
[2021-10-09] MEDS: dexAMETHasone 1 MG TAB PO SCH (08:34)
--- NOTE | 2021-10-09 15:28 | Pulmonology Progress Note ---
Date of Service October 09, 2021 Assessment & Plan (1) Acute respiratory failure with hypoxia: (2) COPD with emphysema: (3) Pneumonia due to COVID-19 virus: (4) Abnormal chest CT: Plan Impression: 81-year-old male with progressive pulmonary infiltrates in the setting of diagnosed COVID and obstructive lung disease in the setting of dementia. Continues to slowly improve Recommendations: 1. Bilateral pulmonary infiltrates. Likely multifactorial. He appears him proved radiographically with steroids and diuresis. Complete course of dexamethasone per COVID protocol. Has completed extensive course of abx without fevers and WBC is normal. Recommend discontinuation of abx and continued surveillance. 2. Hypoxemia: continue to wean as tolerated. Will follow peripherally, call if ?s Admission and Anticipated Discharge Date Admission Date: September 29, 2021 Subjective Chart reviewed. No acute events overnight. Continues to have oxygen weaned. Physical Exam Physical Exam: deferred Results & Data Results & Data ([facility]) Vital Signs (Past 12 Hours) Vital Signs Temp Pulse Pulse Resp BP BP Pulse Ox 10/09/21 15:15 70 10/09/21 13:45 74 16 97 10/09/21 11:07 36.3 C L 74 18 131/78 96 10/09/21 09:00 10/09/21 09:00 70 10/09/21 07:53 36.3 C L 62 18 176/97 H 94 10/09/21 06:53 73 18 96 10/09/21 04:16 36.5 C 68 20 161/81 H 94 O2 Del Method O2 Flow Rate 10/09/21 15:15 10/09/21 13:45 Nasal Cannula 12 10/09/21 11:07 High Flow Nasal Cannula 12 10/09/21 09:00 Room Air 10/09/21 09:00 10/09/21 07:53 High Flow Nasal Cannula 10/09/21 06:53 Nasal Cannula 15 10/09/21 04:16 Nasal Cannula 15.0 Laboratory Results 10/09/21 06:36 10/09/21 06:36 Diagnostic Findings no new imaging PG Care Time/CCT Total # of Minutes Spent Total Time Spent with Patient: Total time spent is greater than 50% in coordination of care (as documented) at patient's floor/unit and/or counseling patient: Coding Level of Care Code 73708 Subseq Hosp Care Lvl 1 Diagnoses Acute respiratory failure with hypoxia J96.01 COPD with emphysema J43.9 Pneumonia due to COVID-19 virus U07.1; J12.[address] R93.89
--- NOTE | 2021-10-09 18:29 | Billing Data ---
Date of Service October 09, 2021 Coding Level of Care Code 92243 Subseq Hosp Care Lvl 3
[2021-10-09] MEDS: SIMVASTATIN 80 MG TAB PO SCH (19:16)
[2021-10-09] MEDS: GABAPENTIN 300 MG CAP PO SCH (19:16)
[2021-10-09] MEDS: TAMSULOSIN HCL 0.4 MG CAP PO SCH (19:16)
[2021-10-09] MEDS: DONEPEZIL HCL 10 MG TAB PO SCH (19:17)
[2021-10-10] MEDS: ALBUT/IPRATROP 3MG/0.5MG NEB 3 ML VIAL INH SCH ×4 (01:00→19:25)
[2021-10-10] MEDS: PIPERACILLIN/TAZOBACTAM 3.375 GM in DEXTROSE 5% 100 ML IV SCH ×3 (05:29→21:04)
[2021-10-10] MEDS: LEVOTHYROXINE SODIUM 112 MCG TABLET PO SCH (05:30)
[2021-10-10] MEDS: FAMOTIDINE 40 MG TABLET PO SCH (05:30)
[2021-10-10 06:15] LABS: Basophils # (auto) 0.01 K/uL (0-0.2); Basophils % (auto) 0.1 %; Hematocrit (blood only) 37.7 % (40.1-51.0); Hemoglobin 12.1 g/dl (14.0-18.0); Immature Granulocytes # (auto) 0.11 K/uL (0.00-0.02); Immature Granulocytes % (auto) 0.9 %; Lymphocytes # (auto) 1.06 K/uL (1.2-3.4); Lymphocytes % (auto) 8.3 %; Mean Corpuscular Hemoglobin 29.7 pg (25.0-34.0); Mean Corpuscular Hgb Conc 32.1 g/dL (32.0-36.0); Mean Corpuscular Volume 92.6 fL (80.0-100.0); Monocytes # (auto) 0.71 K/uL (0.24-0.82); Monocytes % (auto) 5.5 %; Neutrophils # (auto) 10.94 K/uL (1.4-6.5); Neutrophils % (auto) 85.2 %; Platelet Count 159 K/uL (130-400); RDW Coefficient of Variation 14.2 % (11.5-14.5); RDW Standard Deviation 48.1 fL (36.4-46.3); Red Blood Count 4.07 M/uL (4.63-6.08); White Blood Count 12.83 K/ul (4.8-10.8)
[2021-10-10 06:44] LABS: BUN Creatinine Ratio 35.3 (10-20); C Reactive Protein 1.24 mg/dl (0-0.5); Calcium 8.8 mg/dl (8.5-10.1); Creatinine Clr Calc Pharmacy 24.9 ml/min; Est GFR (Non-African American) 26.8 ml/min; Potassium 3.8 mmol/L (3.5-5.1)
[2021-10-10] MEDS: dexAMETHasone 1 MG TAB PO SCH (08:08)
[2021-10-10] MEDS: DOXYCYCLINE HYCLATE 100 MG CAP PO SCH (08:08)
[2021-10-10] MEDS: FERROUS SULFATE 325 MG TAB PO SCH (08:08)
[2021-10-10] MEDS: buPROPion SR 100 MG TABCR PO SCH ×2 (08:10→20:26)
[2021-10-10] MEDS: amLODIPine BESYLATE 5 MG TAB PO SCH (08:10)
[2021-10-10] MEDS: carvediloL 3.125 MG TAB PO SCH ×2 (08:11→16:41)
[2021-10-10] MEDS: guaiFENesin 600 MG TABCR PO SCH ×2 (08:11→20:27)
[2021-10-10] MEDS: MEMANTINE HCL 10 MG TAB PO SCH ×2 (08:11→20:29)
[2021-10-10] MEDS: APIXABAN 2.5 MG TAB PO SCH ×2 (08:11→20:25)
[2021-10-10] MEDS: BETHANECHOL CHL 25 MG TAB PO SCH ×4 (08:12→20:26)
[2021-10-10] MEDS: ISOSORBIDE MONO EXTENDED REL 30 MG TABCR PO SCH (08:13)
[2021-10-10] MEDS: UMECLIDINIUM/VILANTEROL 62.5/25MCG 7 PUFFS/INHALER INH SCH (08:15)
--- NOTE | 2021-10-10 10:11 | Pulmonology Progress Note ---
Date of Service October 10, 2021 Assessment & Plan (1) Acute respiratory failure with hypoxia: (2) COPD with emphysema: (3) Pneumonia due to COVID-19 virus: (4) Abnormal chest CT: Plan Impression: 81-year-old male with progressive pulmonary infiltrates in the setting of diagnosed COVID and obstructive lung disease in the setting of dementia. Continues to slowly improve. Oxygen now down to 5 L Recommendations: 1. Bilateral pulmonary infiltrates. Likely multifactorial. He continues to show clinical and radiographic with steroids and diuresis. Complete course of dexamethasone per COVID protocol (10 days). Has completed extensive course of abx without fevers and WBC is normal. Recommend discontinuation of abx and continued surveillance. 2. Hypoxemia: continue to wean as tolerated. Patient is significantly improved at this point time. Pulmonary will sign off. Please contact us if we can be of additional assistance Admission and Anticipated Discharge Date Admission Date: September 29, 2021 Subjective Patient seen and examined. EMR reviewed. The patient offers no complaints. He states he is breathing well. He remains pleasantly demented. He denies any coughing shortness of breath or chest pain Review of Systems Review of Systems: Unobtainable due to cognitive status Physical Exam Constitutional: WD/WN, vitals as above Neck: trachea midline, no thyromegaly Respiratory: no respiratory distress, no labored breathing and not tachypneic Auscultation: + diminished lung sounds and + crackles; no wheezes Cardiovascular: RRR, no murmur, no edema Gastrointestinal (Abdomen): normal bowel sounds, soft, nontender, no hepatosplenomegaly Musculoskeletal: Extremities: extremities normal to inspection Skin: no rashes, warm and dry Lymphatic: no cervical lymphadenopathy Results & Data Results & Data ([facility]) Vital Signs (Past 12 Hours) Vital Signs Temp Pulse Pulse Resp BP Pulse Ox O2 Del Method 10/10/21 07:26 36.5 C 63 18 173/80 H 97 High Flow Nasal Cannula 10/10/21 07:05 63 18 93 Nasal Cannula 10/10/21 07:37 65 10/10/21 03:34 36.5 C 60 12 137/74 93 Nasal Cannula 10/09/21 23:00 57 L 10/10/21 01:00 76 18 92 Nasal Cannula 10/09/21 23:27 36.7 C 65 15 113/64 96 Room Air O2 Flow Rate 10/10/21 07:26 5 10/10/21 07:05 5 10/10/21 07:37 10/10/21 03:34 5 10/09/21 23:00 10/10/21 01:00 5 10/09/21 23:27 Laboratory Results 10/10/21 05:49 10/10/21 05:49 Diagnostic Findings no new imaging PG Care Time/CCT Total # of Minutes Spent Total Time Spent with Patient: Total time spent is greater than 50% in coordination of care (as documented) at patient's floor/unit and/or counseling patient: Coding Level of Care Code 98454 Subseq Hosp Care Lvl 2 Diagnoses Acute respiratory failure with hypoxia J96.01 COPD with emphysema J43.9 Pneumonia due to COVID-19 virus U07.1; J12.[address] R93.89
--- NOTE | 2021-10-10 11:03 | Hospitalist Progress Note ---
Date of Service October 10, 2021 Assessment & Plan (1) Acute respiratory failure with hypoxia: Plan: 81yo male with a history of Alzheimer's, recurrent CAUTI, paroxysmal afib, CAD with MD, CKD, iron-deficiency anemia, hypothyroidism, CHOLO, MDD, and recent covid infection presents with shortness of breath for about two weeks, then found by EMS to be hypoxic to the mid-80s. Acute hypoxic respiratory failure Patient noted to by hypoxic to mid-80s by EMS, though spO2 was adequate on 4L NC upon arrival. Afebrile, no tachycardia or tachypnea, procalcitonin negative, blood culture negative after 24 hours CXR (09/29): mild interstitial thickening, interval development of right lung hazy opacities concerning for asymmetric pulmonary edema vs developing pneumonia; cardiomegaly and trace left pleural effusion persisting from prior imaging Likely multifactorial given history of HFpEF, COPD, recent COVID Patient received vanc/cefepime in ED, completed course of azithromycin. Guaifenesin, Tessalon Pearls prn Incentive spirometry, flutter valve PT/OT-recommending intermediate with rehab upon discharge. -repeat CXR (10/05): Airspace opacities are seen throughout both lungs, asymmetrically greater on the right. -repeat CXR (10/08): slight improvement in patchy bilateral airspace opacities -Chest CT (10/06): Extensive airspace opacities throughout the right lung. Mild airspace opacities within the left lung. The findings favor an infectious process with multifocal pneumonia. -Repeat chest CT (10/08): mild increase in consolidation in R lung, airspace opacity slightly decreased. Findings represent multifocal pneumonia. Diminished RLL aeration. -Consulted Pulmonology Etiology unknown, likely inflammatory Empirically diuresed on 10/07. Cr bumped >2. Additional dose given 10/08 due to worsening oxygenation status. D/c'd methylprednisone 40mg IV, transitioned to dexamethasone (10/09) -Cont. doxycycline. Added zosyn to regimen for possible pneumonia. -Continue supplemental oxygen as needed, wean as indicated; patient was on 2L at home when sleeping per . -10/08 in am, pt required 40L high flow O2. Would not tolerate bipap. Lacked capacity. Discussed status with and family and decision was made to make Alfredo DNR/DNI. After subsequent treatment, oxygenation status did improve now back down to 8L. Etiology unknown but ddx includes infx/pneumonia, vascular congestion, ARDS, alveolar hemorrhage, mucus plug. -Tx as above. Currently stable and improving with less O2 requirement. Unsure if etiology of condition inflammatory vs infx, however, given improvement since start of broadened abx will complete for 5 days (through 10/12/21) total to cover for pneumonia. Can stop all abx at that time if pt remains stable. Gross hematuria In the setting of suprapubic catheter Differential includes catheter irritation/trauma versus cystitis among others Bilateral ureteral stents and suprapubic catheter last exchanged 08/22/2021. UA on admission infected appearing but has been noted in urology visits that he is colonized and will always show positive UA results Culture has been significant for Monalisa infection but this has always been present on previous cultures Blood cultures negative -due to significant leak, catheter exchanged (10/08) Urology signed off at this time H/o severe CHANELLE Nonadherent with CPAP at home and refuses here Uses 2L nasal cannula at home while sleeping encourage CPAP use daily COPD exacerbation, improved Cont. Anoro Ellipta blister once a day on 10/03 for maintenance COPD medication Methylprednisolone transitioned to dexamethasone as above cont. Duonebs q6h FLEX Azithromycin completed on 10/04 Chronic HFpEF, stable Patient appeared fluid overloaded on admission Due to CKD history and being diuretic cinthia. Empiric diuretics as above. Accurate I/O's, Daily weights Daily BMP Conjunctivitis, resolved Ciprofloxicin oph two drops each eye q4hwa x5 days. Completed. Warm compress q4h Bacteriuria, history of CAUTI Patient with suprapubic catheter and history of CAUTI Afebrile, no leukocytosis, no flank tenderness, procal negative suspect UA findings represent colonization rather than infection Urine cx grew Monalisa albicans but no bacteria currently.See plan above. Encourage PO intake to maintain adequate hydration CAD, history of MD, elevated hsTroponin Initial hsTroponin elevated to 38.4, repeat 41.9 - no further repeat values indicated based on small delta EKG: junctional rhythm per automated read, rate 85, no overt ischemic change Suspect elevated hsTroponin secondary to demand ischemia from afib vs hypoxia with CKD Continue home regimen Paroxysmal atrial fibrillation Not in afib on admission, rate not elevated Continue home eliquis, beta blockade CKD3 Creatinine on admission 1.78 which appears to be near baseline, now >2. Will hold off of diuretics for now. Appears dry so will encourage PO intake. Trend BMP, avoid unnecessary nephrotoxins Alzheimer's: continue home regimen Iron-deficiency anemia: mild, MCV wnl, continue home iron supplementation CHOLO, MDD: continue home regimen Hypothyroidism: continue home regimen FEN: HH, low sodium Code status: full DVT ppx: home Eliquis Dispo: med/tele. Discharge to SNF facility when able.Not covid vaccinated. COVID precautions removed. (2) AICD (automatic cardioverter/defibrillator) present: (3) Anemia: (4) CAD (coronary artery disease): (5) Catheter-associated urinary tract infection: (6) COVID-19: (7) Dementia: (8) Dyslipidemia: (9) History of MD (myocardial infarction): (10) Nocturnal hypoxia: (11) Paroxysmal atrial fibrillation: (12) Stage 3b chronic kidney disease: (13) Chronic diastolic heart failure: Admission and Anticipated Discharge Date Admission Date: September 29, 2021 Supervising Physician Co-Signing Physician Notes Patient seen and examined, chart reviewed, case discussed with Jordan Hodge, DO and I agree with the assessment and plan as above except as otherwise noted Labs and images reviewed Alfredo is seen at the bedside this morning. Reports he feels okay, taking 1 day at a time. No fever, chills, lightheadedness, dizziness, or shortness of breath at time of assessment. History is somewhat limited by history of Alzheimer's, patient is pleasant and follows commands. At bedside comfortable, remains 5-6 L of nasal cannula. RRR, without murmurs rubs or gallops. Right lower lung with increased crackles, clear to auscultation on the left, no wheezing or rhonchi. Skin is warm and dry. Michel in place. Acute hypoxic respiratory failure, multifactorial with history of COVID, COPD, and multifocal pneumonia Clinically improving. Patient did substantially worsen 10/08 and required 40 L of high flow oxygen and could not tolerate BiPAP. He was started on Zosyn in addition to doxycycline (Doxy now day 4). 3 days of azithromycin, 1 dose of vancomycin, and 3 doses of cefepime over admission. We will discontinue doxycycline tomorrow, given severe illness and improvement with empiric treatment we will discontinue Zosyn 10/12 Hematuria: With suprapubic catheter. Catheter exchange, urology signed off, have outpatient follow-up for this. No acute management at this time. CKD: Hold diuretics, creatinine elevated. Encourage p.o. defer fluids. BMP in morning Downtrending oxygen requirements, anticipate progression to SNF once oxygen levels are less than 4 L and with appropriate recovery on ambulation Subjective Stable overnight, improving with less O2 requirement. Seen at bedside this morning. Appears comfortable. Mentation waxes/wanes, more alert than yesterday. However, does not appear to have capacity. SOB improved. Denies chest pain, N/V, abdominal pain, headache. Review of Systems Review of Systems: All systems reviewed & are unremarkable except as noted in HPI & below Physical Exam 2 Physical Exam: Constitutional: No acute distress, comfortable, pleasant HEENT: NCAT. EOMI. Resp: decreased air entry and crackles on right. Improved on left. No wheezing or rhonchi. Cardio: RRR. No murmurs. Abdomen: Soft, nontender, nondistended,+BS Extremities: +2 pulses bilaterally radialis/dorsalis pedis, no cyanosis, no edema Psych: awake. Only oriented to self, lacks capacity. G/U: Michel intact Results & Data Results & Data ([facility]) Vital Signs (Past 12 Hours) Vital Signs Temp Pulse Pulse Resp BP Pulse Ox O2 Del Method 10/10/21 07:26 36.5 C 63 18 173/80 H 97 High Flow Nasal Cannula 10/10/21 07:05 63 18 93 Nasal Cannula 10/10/21 07:37 65 10/10/21 03:34 36.5 C 60 12 137/74 93 Nasal Cannula 10/10/21 01:00 76 18 92 Nasal Cannula 10/09/21 23:27 36.7 C 65 15 113/64 96 Room Air O2 Flow Rate 10/10/21 07:26 5 10/10/21 07:05 5 10/10/21 07:37 10/10/21 03:34 5 10/10/21 01:00 5 10/09/21 23:27 Laboratory Results 10/10/21 10/10/21 Range/Units 05:49 05:49 WBC 12.83 H (4.8-10.8) K/ul RBC 4.07 L (4.63-6.08) M/uL Hgb 12.1 L (14.0-18.0) g/dl Hct 37.7 L (40.1-51.0) % MCV 92.6 (80.0-100.0) fL MCH 29.7 (25.0-34.0) pg MCHC 32.1 (32.0-36.0) g/dL RDW Std Deviation 48.1 H (36.4-46.3) fL RDW Coeff of Curtis 14.2 (11.5-14.5) % Plt Count 159 (130-400) K/uL MPV 11.0 (9.4-12.4) fL Immature Gran % (Auto) 0.9 % Neut % (Auto) 85.2 % Lymph % (Auto) 8.3 % Eddy % (Auto) 5.5 % Eos % (Auto) 0.0 % Baso % (Auto) 0.1 % Neut # (Auto) 10.94 H (1.4-6.5) K/uL Lymph # (Auto) 1.06 L (1.2-3.4) K/uL Eddy # (Auto) 0.71 (0.24-0.82) K/uL Eos # (Auto) 0.00 (0-0.50) K/uL Baso # (Auto) 0.01 (0-0.2) K/uL Immature Gran # (Auto) 0.11 H (0.00-0.02) K/uL Sodium 143 (136-145) mmol/L Potassium 3.8 (3.5-5.1) mmol/L Chloride 108 H (98-107) mmol/L Carbon Dioxide 26 (21-32) mmol/L Anion Gap 9 (3-11) BUN 78 H (6-23) mg/dl Creatinine 2.21 H (0.6-1.4) mg/dl Est Cr Clr Drug Dosing 24.9 ml/min Est GFR ( Amer) 31.0 ml/min Est GFR (Non-Af Amer) 26.8 ml/min BUN/Creatinine Ratio 35.3 H (10-20) Glucose 131 H (70-99(Fasting)) mg/dl Calcium 8.8 (8.5-10.1) mg/dl C-Reactive Protein 1.24 H (0-0.5) mg/dl Resident Activity Tracking Resident Involvement: Resident Care Provided Care Provided: Adult Hospital Medicine
--- NOTE | 2021-10-10 18:19 | Billing Data ---
Date of Service October 10, 2021 Coding Level of Care Code 75115 Subseq Hosp Care Lvl 2
[2021-10-10] MEDS: GABAPENTIN 300 MG CAP PO SCH (20:27)
[2021-10-10] MEDS: DONEPEZIL HCL 10 MG TAB PO SCH (20:27)
[2021-10-10] MEDS: SIMVASTATIN 80 MG TAB PO SCH (20:28)
[2021-10-10] MEDS: TAMSULOSIN HCL 0.4 MG CAP PO SCH (20:30)
[2021-10-11] MEDS: ALBUT/IPRATROP 3MG/0.5MG NEB 3 ML VIAL INH SCH ×4 (01:23→19:33)
[2021-10-11] MEDS: LEVOTHYROXINE SODIUM 112 MCG TABLET PO SCH (05:32)
[2021-10-11] MEDS: PIPERACILLIN/TAZOBACTAM 3.375 GM in DEXTROSE 5% 100 ML IV SCH ×3 (05:32→21:28)
[2021-10-11] MEDS: FAMOTIDINE 40 MG TABLET PO SCH (05:32)
[2021-10-11 06:47] LABS: Basophils # (auto) 0.02 K/uL (0-0.2); Basophils % (auto) 0.1 %; Eosinophils # (auto) 0.01 K/uL (0-0.50); Eosinophils % (auto) 0.1 %; Hematocrit (blood only) 33.5 % (40.1-51.0); Hemoglobin 11.1 g/dl (14.0-18.0); Immature Granulocytes # (auto) 0.15 K/uL (0.00-0.02); Immature Granulocytes % (auto) 0.8 %; Lymphocytes # (auto) 1.19 K/uL (1.2-3.4); Lymphocytes % (auto) 6.4 %; Mean Corpuscular Hemoglobin 30.5 pg (25.0-34.0); Mean Corpuscular Hgb Conc 33.1 g/dL (32.0-36.0); Mean Platelet Volume 10.9 fL (9.4-12.4); Monocytes % (auto) 7.5 %; Neutrophils # (auto) 15.95 K/uL (1.4-6.5); Neutrophils % (auto) 85.1 %; Platelet Count 127 K/uL (130-400); RDW Standard Deviation 47.2 fL (36.4-46.3); Red Blood Count 3.64 M/uL (4.63-6.08); White Blood Count 18.72 K/ul (4.8-10.8)
[2021-10-11 07:27] LABS: BUN Creatinine Ratio 31.8 (10-20); C Reactive Protein 1.05 mg/dl (0-0.5); Calcium 8.5 mg/dl (8.5-10.1); Creatinine Clr Calc Pharmacy 25.7 ml/min; Est GFR (African American) 29.1 ml/min; Est GFR (Non-African American) 25.1 ml/min; Potassium 3.5 mmol/L (3.5-5.1)
[2021-10-11] MEDS: carvediloL 3.125 MG TAB PO SCH ×2 (10:05→16:11)
[2021-10-11] MEDS: FERROUS SULFATE 325 MG TAB PO SCH (10:07)
[2021-10-11] MEDS: amLODIPine BESYLATE 5 MG TAB PO SCH (10:07)
[2021-10-11] MEDS: guaiFENesin 600 MG TABCR PO SCH ×2 (10:07→20:11)
[2021-10-11] MEDS: APIXABAN 2.5 MG TAB PO SCH ×2 (10:07→20:09)
[2021-10-11] MEDS: BETHANECHOL CHL 25 MG TAB PO SCH ×4 (10:07→20:09)
[2021-10-11] MEDS: MEMANTINE HCL 10 MG TAB PO SCH ×2 (10:08→20:11)
[2021-10-11] MEDS: buPROPion SR 100 MG TABCR PO SCH ×2 (10:08→20:10)
[2021-10-11] MEDS: ISOSORBIDE MONO EXTENDED REL 30 MG TABCR PO SCH (10:08)
[2021-10-11] MEDS: dexAMETHasone 1 MG TAB PO SCH (10:08)
[2021-10-11] MEDS: UMECLIDINIUM/VILANTEROL 62.5/25MCG 7 PUFFS/INHALER INH SCH (10:54)
--- NOTE | 2021-10-11 17:51 | Hospitalist Progress Note ---
Date of Service October 11, 2021 Assessment & Plan (1) Acute respiratory failure with hypoxia: Plan: 81yo male with a history of Alzheimer's, recurrent CAUTI, paroxysmal afib, CAD with VA, CKD, iron-deficiency anemia, hypothyroidism, CHOLO, MDD, and recent covid infection presents with shortness of breath for about two weeks, then found by EMS to be hypoxic to the mid-80s. Acute hypoxic respiratory failure Patient noted to by hypoxic to mid-80s by EMS, though spO2 was adequate on 4L NC upon arrival. Afebrile, no tachycardia or tachypnea, procalcitonin negative, blood culture negative after 24 hours CXR (09/29): mild interstitial thickening, interval development of right lung hazy opacities concerning for asymmetric pulmonary edema vs developing pneumonia; cardiomegaly and trace left pleural effusion persisting from prior imaging Likely multifactorial given history of HFpEF, COPD, recent COVID Patient received vanc/cefepime in ED, completed course of azithromycin. Guaifenesin, Tessalon Pearls prn Incentive spirometry, flutter valve PT/OT-recommending senior care with rehab upon discharge. -repeat CXR (10/05): Airspace opacities are seen throughout both lungs, asymmetrically greater on the right. -repeat CXR (10/08): slight improvement in patchy bilateral airspace opacities -Chest CT (10/06): Extensive airspace opacities throughout the right lung. Mild airspace opacities within the left lung. The findings favor an infectious process with multifocal pneumonia. -Repeat chest CT (10/08): mild increase in consolidation in R lung, airspace opacity slightly decreased. Findings represent multifocal pneumonia. Diminished RLL aeration. -Consulted Pulmonology Etiology unknown, likely inflammatory Empirically diuresed on 10/07. Cr bumped >2. Additional dose given 10/08 due to worsening oxygenation status. D/c'd methylprednisone 40mg IV, transitioned to dexamethasone (10/09) -Doxycycline d/c'd 10/10, adequately treated. Cont. zosyn through 10/12 for possible pneumonia and adequate tx course, pt was not previously treated for full course. -Continue supplemental oxygen as needed, wean as indicated; patient was on 2L at home when sleeping per . -10/08 in am, pt required 40L high flow O2. Would not tolerate bipap. Lacked capacity. Discussed status with and family and decision was made to make Alfredo DNR/DNI. After subsequent treatment, oxygenation status did improve now back down to 8L. Etiology unknown but ddx includes infx/pneumonia, vascular congestion, ARDS, alveolar hemorrhage, mucus plug. -Tx as above. Currently stable and improving with less O2 requirement. Unsure if etiology of condition inflammatory vs infx, however, given improvement since start of broadened abx will complete for 5 days (through 10/12/21) total to cover for pneumonia. Gross hematuria In the setting of suprapubic catheter Differential includes catheter irritation/trauma versus cystitis among others Bilateral ureteral stents and suprapubic catheter last exchanged 08/22/2021. UA on admission infected appearing but has been noted in urology visits that he is colonized and will always show positive UA results Culture has been significant for Monalisa infection but this has always been present on previous cultures Blood cultures negative due to significant leak, catheter exchanged (10/08) Urology signed off at this time H/o severe CHANELLE Nonadherent with CPAP at home and refuses here Uses 2L nasal cannula at home while sleeping encourage CPAP use daily COPD exacerbation, improved Cont. Anoro Ellipta blister once a day on 10/03 for maintenance COPD medication Methylprednisolone transitioned to dexamethasone as above cont. Duonebs q6h FLEX Azithromycin completed on 10/04 Chronic HFpEF, stable Patient appeared fluid overloaded on admission Due to CKD history and being diuretic cinthia. Empiric diuretics as above. Accurate I/O's, Daily weights Daily BMP Conjunctivitis, resolved Ciprofloxicin oph two drops each eye q4hwa x5 days. Completed. Warm compress q4h Bacteriuria, history of CAUTI Patient with suprapubic catheter and history of CAUTI Afebrile, no leukocytosis, no flank tenderness, procal negative suspect UA findings represent colonization rather than infection Urine cx grew Monalisa albicans but no bacteria currently.See plan above. Encourage PO intake to maintain adequate hydration CAD, history of VA, elevated hsTroponin Initial hsTroponin elevated to 38.4, repeat 41.9 - no further repeat values indicated based on small delta EKG: junctional rhythm per automated read, rate 85, no overt ischemic change Suspect elevated hsTroponin secondary to demand ischemia from afib vs hypoxia with CKD Continue home regimen Paroxysmal atrial fibrillation Not in afib on admission, rate not elevated Continue home eliquis, beta blockade CKD3 Creatinine on admission 1.78 which appears to be near baseline, now >2. Will hold off of diuretics for now. Appears dry so will encourage PO intake. Trend BMP, avoid unnecessary nephrotoxins Alzheimer's: continue home regimen Iron-deficiency anemia: mild, MCV wnl, continue home iron supplementation CHOLO, MDD: continue home regimen Hypothyroidism: continue home regimen FEN: HH, low sodium Code status: full DVT ppx: home Eliquis Dispo: med/tele. Anticipate discharge to SNF 10/12. (2) AICD (automatic cardioverter/defibrillator) present: (3) Anemia: (4) CAD (coronary artery disease): (5) Catheter-associated urinary tract infection: (6) COVID-19: (7) Dementia: (8) Dyslipidemia: (9) History of VA (myocardial infarction): (10) Nocturnal hypoxia: (11) Paroxysmal atrial fibrillation: (12) Stage 3b chronic kidney disease: (13) Chronic diastolic heart failure: Admission and Anticipated Discharge Date Admission Date: September 29, 2021 Supervising Physician Co-Signing Physician Notes Patient seen and examined, chart reviewed, case discussed with Jordan Hodge and I agree with the assessment and plan as above except as otherwise noted Labs and images reviewed Doing well at bedside. Patient has continued to clinically progress and is now down to 2 L of oxygen, previously using around 2 L at night sometimes up to 4. Subjective is limited by dementia, but patient is pleasant and feels well and denies shortness of breath/difficulty breathing. No chest pain. Intermittent cough, he is not sure if this is improving. Continues to have mild crackles on the right, clear on the left, without wheezes. Heart rate is regular, skin is warm and dry. Patient is doing well and has not progressed to a point where he is stable for discharge to SNF. Placement is pending. Agree with management above. We will discontinue Zosyn tomorrow Subjective Stable overnight, improving with less O2 requirement. Seen at bedside this morning. Appears comfortable. Mentation waxes/wanes. Does not appear to have capacity. SOB continues to improve. Denies chest pain, N/V, abdominal pain, headache. Review of Systems Review of Systems: All systems reviewed & are unremarkable except as noted in HPI & below Physical Exam Physical Exam: Constitutional: No acute distress, comfortable, pleasant HEENT: NCAT. EOMI. Resp: decreased air entry and crackles on right. Improved on left. No wheezing or rhonchi. Cardio: RRR. No murmurs. Abdomen: Soft, nontender, nondistended,+BS Extremities: +2 pulses bilaterally radialis/dorsalis pedis, no cyanosis, no edema Psych: awake. Only oriented to self, lacks capacity. G/U: Michel intact Results & Data Results & Data ([facility]) Vital Signs (Past 12 Hours) Vital Signs Temp Pulse Pulse Resp BP Pulse Ox O2 Del Method 10/11/21 08:15 Nasal Cannula 10/11/21 15:56 36.4 C L 60 19 118/72 95 Nasal Cannula 10/11/21 13:07 65 16 96 Nasal Cannula 10/11/21 07:42 36.9 C 64 16 145/77 H 96 Nasal Cannula 10/11/21 07:36 60 18 96 Nasal Cannula O2 Flow Rate 10/11/21 08:15 4 10/11/21 15:56 2 10/11/21 13:07 3 10/11/21 07:42 4 10/11/21 07:36 4 Laboratory Results 10/11/21 10/11/21 Range/Units 06:33 06:33 WBC 18.72 H (4.8-10.8) K/ul RBC 3.64 L (4.63-6.08) M/uL Hgb 11.1 L (14.0-18.0) g/dl Hct 33.5 L (40.1-51.0) % MCV 92.0 (80.0-100.0) fL MCH 30.5 (25.0-34.0) pg MCHC 33.1 (32.0-36.0) g/dL RDW Std Deviation 47.2 H (36.4-46.3) fL RDW Coeff of Curtis 14.0 (11.5-14.5) % Plt Count 127 L (130-400) K/uL MPV 10.9 (9.4-12.4) fL Immature Gran % (Auto) 0.8 % Neut % (Auto) 85.1 % Lymph % (Auto) 6.4 % Winkler % (Auto) 7.5 % Eos % (Auto) 0.1 % Baso % (Auto) 0.1 % Neut # (Auto) 15.95 H (1.4-6.5) K/uL Lymph # (Auto) 1.19 L (1.2-3.4) K/uL Winkler # (Auto) 1.40 H (0.24-0.82) K/uL Eos # (Auto) 0.01 (0-0.50) K/uL Baso # (Auto) 0.02 (0-0.2) K/uL Immature Gran # (Auto) 0.15 H (0.00-0.02) K/uL Sodium 141 (136-145) mmol/L Potassium 3.5 (3.5-5.1) mmol/L Chloride 108 H (98-107) mmol/L Carbon Dioxide 25 (21-32) mmol/L Anion Gap 8 (3-11) BUN 74 H (6-23) mg/dl Creatinine 2.33 H (0.6-1.4) mg/dl Est Cr Clr Drug Dosing 25.7 ml/min Est GFR ( Amer) 29.1 ml/min Est GFR (Non-Af Amer) 25.1 ml/min BUN/Creatinine Ratio 31.8 H (10-20) Glucose 122 H (70-99(Fasting)) mg/dl Calcium 8.5 (8.5-10.1) mg/dl C-Reactive Protein 1.05 H (0-0.5) mg/dl Resident Activity Tracking Resident Involvement: Resident Care Provided Care Provided: Adult [facility]
--- NOTE | 2021-10-11 18:15 | Billing Data ---
Date of Service October 11, 2021 Coding Level of Care Code 13771 Subseq Hosp Care Lvl 2
[2021-10-11] MEDS: ACETAMINOPHEN 500 MG TAB PO PRN (20:08)
[2021-10-11] MEDS: TAMSULOSIN HCL 0.4 MG CAP PO SCH (20:09)
[2021-10-11] MEDS: GABAPENTIN 300 MG CAP PO SCH (20:09)
[2021-10-11] MEDS: SIMVASTATIN 80 MG TAB PO SCH (20:10)
[2021-10-11] MEDS: DONEPEZIL HCL 10 MG TAB PO SCH (20:11)
[2021-10-11] MEDS ORDERED: ALBUT/IPRATROP 3MG/0.5MG NEB 3 ML VIAL NEB PRN (20:46)
[2021-10-12] MEDS: LEVOTHYROXINE SODIUM 112 MCG TABLET PO SCH (05:37)
[2021-10-12] MEDS: PIPERACILLIN/TAZOBACTAM 3.375 GM in DEXTROSE 5% 100 ML IV SCH (05:37)
[2021-10-12] MEDS: FAMOTIDINE 40 MG TABLET PO SCH (05:37)
[2021-10-12 06:33] LABS: BUN Creatinine Ratio 32.6 (10-20); C Reactive Protein 3.35 mg/dl (0-0.5); Calcium 8.3 mg/dl (8.5-10.1); Creatinine Clr Calc Pharmacy 31.1 ml/min; Est GFR (African American) 36.5 ml/min; Est GFR (Non-African American) 31.5 ml/min; Potassium 3.6 mmol/L (3.5-5.1)
[2021-10-12 06:44] LABS: Hemoglobin 11.1 g/dl (14.0-18.0); Mean Corpuscular Hemoglobin 30.7 pg (25.0-34.0); Mean Corpuscular Hgb Conc 33.6 g/dL (32.0-36.0); Mean Corpuscular Volume 91.4 fL (80.0-100.0); Mean Platelet Volume 10.8 fL (9.4-12.4); Platelet Count 118 K/uL (130-400); RDW Coefficient of Variation 13.8 % (11.5-14.5); RDW Standard Deviation 46.5 fL (36.4-46.3); Red Blood Count 3.61 M/uL (4.63-6.08); White Blood Count 10.76 K/ul (4.8-10.8)
[2021-10-12 06:45] LABS: Basophils # (auto) 0.01 K/uL (0-0.2); Basophils % (auto) 0.1 %; Echinocytes 1+; Eosinophils # (auto) 0.02 K/uL (0-0.50); Eosinophils % (auto) 0.2 %; Immature Granulocytes # (auto) 0.11 K/uL (0.00-0.02); Lymphocytes # (auto) 1.25 K/uL (1.2-3.4); Lymphocytes % (auto) 11.6 %; Monocytes # (auto) 0.75 K/uL (0.24-0.82); Neutrophils # (auto) 8.62 K/uL (1.4-6.5); Neutrophils % (auto) 80.1 %
[2021-10-12] MEDS: buPROPion SR 100 MG TABCR PO SCH (07:26)
[2021-10-12] MEDS: UMECLIDINIUM/VILANTEROL 62.5/25MCG 7 PUFFS/INHALER INH SCH (07:26)
[2021-10-12] MEDS: dexAMETHasone 1 MG TAB PO SCH (07:27)
[2021-10-12] MEDS: FERROUS SULFATE 325 MG TAB PO SCH (07:27)
[2021-10-12] MEDS: amLODIPine BESYLATE 5 MG TAB PO SCH (07:27)
[2021-10-12] MEDS: BETHANECHOL CHL 25 MG TAB PO SCH (07:27)
[2021-10-12] MEDS: ISOSORBIDE MONO EXTENDED REL 30 MG TABCR PO SCH (07:27)
[2021-10-12] MEDS: MEMANTINE HCL 10 MG TAB PO SCH (07:28)
[2021-10-12] MEDS: carvediloL 3.125 MG TAB PO SCH (07:28)
[2021-10-12] MEDS: guaiFENesin 600 MG TABCR PO SCH (07:28)
[2021-10-12] MEDS: APIXABAN 2.5 MG TAB PO SCH (07:28)
--- NOTE | 2021-10-12 07:35 | Discharge Summary ---
Date of Service October 12, 2021 Admission HPI Per Admitting Provider 81yo male with a history of Alzheimer's, recurrent CAUTI, paroxysmal afib, CAD with WI, CKD, iron-deficiency anemia, hypothyroidism, CHOLO, MDD, and recent covid infection presents with shortness of breath for about two weeks. This has been going on since patient had covid, at which he was hospitalized at [facility] (09/19 - 09/21/21) for acute hypoxic respiratory failure. Patient also notes a cough persistent since last admission but slightly worse over the past couple days. EMS was called and noted patient was hypoxic to the mid-80s, though this improved with supplemental oxygen. Patient also endorses some slight pain around his catheter site but notes this is not abnormal for him and has not worsened recently. Also endorses mild back pain which is also not abnormal for him. Patient denies fever, chills, headache, eye pain, sinus pain, vision changes, CP, palpitations, edema, abdominal pain, nausea, vomiting, lightheadedness, dizziness, numbness, tingling, weakness, or other symptoms. Upon arrival, vitals were notable for elevated BP (190s/90s). No tachycardia, no tachypnea, patient afebrile, spO2 on arrival adequate on 4L NC. Initial labs were notable for mild anemia (12.8), elevated creatinine (1.78), and elevated hsTroponin (38.4). No leukocytosis or leukopenia, platelets wnl, no electrolyte abnormalities, LFTs wnl, TSH wnl. Procalcitonin pending, repeat hsTroponin pending. UA: turbid, 2+ protein, 2+ blood, 3+ leuk esterase, >30 WBCs, budding yeast with hyphae, and >30 epithelial cells. EKG: junctional rhythm per automated read, rate 85, no overt ischemic change CXR: mild interstitial thickening, interval development of right lung hazy opacities concerning for asymmetric pulmonary edema vs developing pneumonia; car diomegaly and trace left pleural effusion persisting from prior imaging In the ED, patient received vancomycin and cefepime. Principal Diagnosis AHRF 2/2 COVID/PNA Discharge Exam General: A&O to name and place. NAD. Cooperative. HEENT: Atraumatic, normocephalic. Vision/hearing grossly intact Pulm: Trace crackles in RLL, LLL clear.. Symmetrical chest rise. No increased work of breathing. No respiratory distress. On 2L O2. Cardiac: RRR, -mrg. Radial pulses intact and symmetrical. Abdominal: Nontender, nondistended, soft. BS present. Discharge Data Allergies Allergy/AdvReac Type Severity Reaction Status Date / Time captopril Allergy Severe Anaphylaxis Verified 09/29/21 17:34 Iodinated Contrast Media Allergy Severe Anaphylaxis Verified 09/29/21 17:34 morphine Allergy Severe Anaphylaxis Verified 09/29/21 17:34 oxaprozin Allergy Severe Anaphylaxis Verified 09/29/21 17:34 torsemide Allergy Severe Anaphylaxis Verified 09/29/21 17:34 hydrocodone Allergy Mild Rash Verified 09/29/21 17:34 Consultations 09/29/21 19:45 ED Decision to Admit Stat 10/03/21 16:27 Consult Urology Routine 10/06/21 07:00 Consult Pulmonology Routine Ordered Studies 10/06/21 08:59 CT chest diagnostic wo con Urgent 10/08/21 10:12 CT chest without contrast [CT chest diagnostic wo con] Stat Hospital Course (1) Acute respiratory failure with hypoxia: 81yo male with a history of Alzheimer's, recurrent CAUTI, paroxysmal afib, CAD with WI, CKD, iron-deficiency anemia, hypothyroidism, CHOLO, MDD, and recent covid infection presents with shortness of breath for about two weeks, then found by EMS to be hypoxic to the mid-80s. Acute hypoxic respiratory failure Patient noted to by hypoxic to mid-80s by EMS, though spO2 was adequate on 4L NC upon arrival. Afebrile, no tachycardia or tachypnea, procalcitonin negative, blood culture negative after 24 hours CXR (09/29): mild interstitial thickening, interval development of right lung hazy opacities concerning for asymmetric pulmonary edema vs developing pneumonia; cardiomegaly and trace left pleural effusion persisting from prior imaging Likely multifactorial given history of HFpEF, COPD, recent COVID Patient received vanc/cefepime in ED, completed course of azithromycin. Guaifenesin, Tessalon Pearls prn Incentive spirometry, flutter valve PT/OT-recommending alf with rehab upon discharge. -repeat CXR (10/05): Airspace opacities are seen throughout both lungs, asymmetrically greater on the right. -repeat CXR (10/08): slight improvement in patchy bilateral airspace opacities -Chest CT (10/06): Extensive airspace opacities throughout the right lung. Mild airspace opacities within the left lung. The findings favor an infectious process with multifocal pneumonia. -Repeat chest CT (10/08): mild increase in consolidation in R lung, airspace opacity slightly decreased. Findings represent multifocal pneumonia. Diminished RLL aeration. -Consulted Pulmonology Etiology unknown, likely inflammatory Empirically diuresed on 10/07. Cr bumped >2. Additional dose given 10/08 due to worsening oxygenation status. D/c'd methylprednisone 40mg IV, transitioned to dexamethasone (10/09) -Doxycycline d/c'd 10/10, adequately treated. Cont. zosyn through 10/12 for possible pneumonia and adequate tx course, pt was not previously treated for full course. -Continue supplemental oxygen as needed, wean as indicated; patient was on 2L at home when sleeping per . -10/08 in am, pt required 40L high flow O2. Would not tolerate bipap. Lacked capacity. Discussed status with and family and decision was made to make Alfredo DNR/DNI. After subsequent treatment, oxygenation status did improve now back down to 8L. Etiology unknown but ddx includes infx/pneumonia, vascular congestion, ARDS, alveolar hemorrhage, mucus plug. -Tx as above. Currently stable and improving with less O2 requirement. Unsure if etiology of condition inflammatory vs infx, however, given improvement since start of broadened abx will complete for 5 days (through 10/12/21) total to cover for pneumonia. Gross hematuria In the setting of suprapubic catheter Differential includes catheter irritation/trauma versus cystitis among others Bilateral ureteral stents and suprapubic catheter last exchanged 08/22/2021. UA on admission infected appearing but has been noted in urology visits that he is colonized and will always show positive UA results Culture has been significant for Monalisa infection but this has always been present on previous cultures Blood cultures negative due to significant leak, catheter exchanged (10/08) Urology signed off. Outpatient followup H/o severe CHANELLE Nonadherent with CPAP at home and refuses here Uses 2L nasal cannula at home while sleeping encourage CPAP use daily COPD exacerbation, improved Cont. Anoro Ellipta blister once a day on 10/03 for maintenance COPD medication Methylprednisolone transitioned to dexamethasone as above cont. Duonebs q6h FLEX Azithromycin completed on 10/04 Chronic HFpEF, stable Patient appeared fluid overloaded on admission Due to CKD history and being diuretic cinthia. Empiric diuretics as above. Accurate I/O's, Daily weights Daily BMP Conjunctivitis, resolved Ciprofloxicin oph two drops each eye q4hwa x5 days. Completed. Warm compress q4h Bacteriuria, history of CAUTI Patient with suprapubic catheter and history of CAUTI Afebrile, no leukocytosis, no flank tenderness, procal negative suspect UA findings represent colonization rather than infection Urine cx grew Monalisa albicans but no bacteria currently.See plan above. Encourage PO intake to maintain adequate hydration CAD, history of WI, elevated hsTroponin Initial hsTroponin elevated to 38.4, repeat 41.9 - no further repeat values indicated based on small delta EKG: junctional rhythm per automated read, rate 85, no overt ischemic change Suspect elevated hsTroponin secondary to demand ischemia from afib vs hypoxia with CKD Continue home regimen Paroxysmal atrial fibrillation Not in afib on admission, rate not elevated Continue home eliquis, beta blockade CKD3 Creatinine on admission 1.78 which appears to be near baseline, now >2. Will hold off of diuretics for now. Appears dry so will encourage PO intake. Trend BMP, avoid unnecessary nephrotoxins Alzheimer's: continue home regimen Iron-deficiency anemia: mild, MCV wnl, continue home iron supplementation CHOLO, MDD: continue home regimen Hypothyroidism: continue home regimen FEN: HH, low sodium Code status: full DVT ppx: home Eliquis Dispo: med/tele. Anticipate discharge to SNF 10/12. (2) AICD (automatic cardioverter/defibrillator) present: (3) Anemia: (4) CAD (coronary artery disease): (5) Catheter-associated urinary tract infection: (6) COVID-19: (7) Dementia: (8) Dyslipidemia: (9) History of WI (myocardial infarction): (10) Nocturnal hypoxia: (11) Paroxysmal atrial fibrillation: (12) Stage 3b chronic kidney disease: (13) Chronic diastolic heart failure: Total Time Total Time Spent Total Time Spent (In Minutes): >30 Discharge Plan Discharge Items Patient Disposition: Transfer Detention Fac Reason For Visit: HYPOXEMIC RESPIRATORY FAILURE, RECENT COVID Discharge Diagnosis: COVID COPD Activity: Per Instructions section Non-emergency contact: Primary Care Provider Call non-emergency contact if: you have any medication questions, your symptoms worsen, your pain is not controlled and your pain is worsening Follow-up/Referrals: Itz Mccabe MD [Physician] - Celina Saunders DO [Primary Care Provider] - Diet: Heart Healthy and Low Sodium (2gm) Addtl Attending Provider Instructions: You are seen in the hospital for acute hypoxic respiratory failure, multifactorial due to COVID, heart failure, and suspicion for superimposed pneumonia. Clinically improved and returned to her normal oxygen baseline. You completed a course of antibiotics during admission, no antibiotics were continued on discharge. You have been continued on 4 additional days of dexamethasone 6 mg daily to complete a total 10-day course. You are hypertensive during mission, you were started on a blood pressure medicine amlodipine 5 mg daily with return of your blood pressure to normal. If you experience low blood pressures or lightheadedness or dizziness, please hold this medication and discuss it with your PCP at follow-up. You did experience hematuria, urology was consulted. He had a catheter exchange and will have outpatient follow-up with urology. If you develop any new or worsening symptoms including fever, chills, sweats, chest pain, chest pressure, difficulty breathing, uncontrolled nausea/vomiting, rash, wheezing, passing out or nearly passing out, bleeding, black/bloody bowel movements, or other new or concerning symptoms please call your primary care jeffery espinoza, or call 911 for re-evaluation in the emergency department if you are very concerned. Pending Studies at Discharge: No Stand-Alone Forms: My [facility] Skilled Items Patient informed of condition?: Yes DNR: Yes Discharge Level of Care: Skilled Communicable Disease: No Discharge Prognosis: Stable Lines: None Urinary Catheter: Yes Medications and DC Order Prescriptions: New amlodipine [Norvasc] 5 mg Tablet 5 mg PO QAM Qty: 30 0RF dexamethasone 1 mg Tablet 6 mg PO DAILY 4 Days Qty: 24 0RF Continued folic acid 1 mg tablet 1 mg PO QAM Qty: 90 1RF albuterol sulfate 2.5 mg /3 mL (0.083 %) solution for nebulization 2.5 mg inhalation QID PRN (Reason: shortness of breath or wheezing) Qty: 75 5RF isosorbide mononitrate 30 mg tablet extended release 24 hr 30 mg PO QAM Qty: 90 1RF gabapentin 300 mg capsule 300 mg PO HS Qty: 90 3RF ipratropium-albuterol 0.5 mg-3 mg(2.5 mg base)/3 mL solution for nebulization 3 ml inhalation Q6H PRN (Reason: wheezing) Qty: 90 0RF levothyroxine [Synthroid] 112 mcg tablet 112 mcg PO HS Qty: 90 1RF bethanechol chloride 50 mg tablet 50 mg PO QID Qty: 360 1RF simvastatin 80 mg tablet 80 mg PO HS Qty: 90 1RF Eliquis 2.5 mg tablet 2.5 mg PO BID Qty: 180 1RF tramadol 50 mg tablet 50 mg PO TID PRN (Reason: Pain) Qty: 30 0RF memantine [Namenda] 10 mg tablet 10 mg PO BID Qty: 180 3RF donepezil 10 mg tablet 10 mg PO HS Qty: 90 3RF benzonatate 100 mg capsule 100 mg PO TID PRN (Reason: cough) Qty: 30 0RF (DME) Oxygen Home Liters Per Minute See Rx Instructions .Route Qty: 1 0RF Rx Instructions: 2L via NC at night bupropion HCl 100 mg tablet sustained-release 12 hr 100 mg PO BID Qty: 60 5RF acetaminophen 325 mg Tablet 650 mg PO Q4H PRN (Reason: pain) Qty: 30 0RF ferrous sulfate 325 mg (65 mg iron) tablet,delayed release (DR/EC) 325 mg PO QAM polyethylene glycol 3350 [Miralax] 17 gram powder in packet 17 g PO BID PRN (Reason: Constipation) cyanocobalamin (vitamin B-12) 1,000 mcg Tablet 1,000 mcg PO QAM ascorbic acid (vitamin C) [Vitamin C] 500 mg Tablet 500 mg PO QAM docusate sodium [Stool Softener] 100 mg Capsule 100 mg PO BID PRN (Reason: Constipation) vitamin E 400 unit Capsule 400 unit PO HS (DME) Oxygen Home Liters Per Minute See Rx Instructions .Route Qty: 1 0RF Rx Instructions: 2 lpm nightly or while asleep. albuterol sulfate [Ventolin HFA] 90 mcg/actuation Hfa Aerosol Inhaler 2 puff inhalation Q6H PRN (Reason: cough/wheeze/shortness of breath) Qty: 1 0RF nystatin 100,000 unit/gram cream 1 applic topical UD PRN (Reason: Skin Irritation) tamsulosin 0.4 mg capsule 0.4 mg PO HS Qty: 30 0RF carvedilol 3.125 mg tablet 3.125 mg PO BIDWMEAL famotidine [Pepcid] 40 mg tablet 40 mg PO DAILYBB calcium carbonate-vitamin D3 500 mg-5 mcg (200 unit) Tablet 1 tab PO DAILY Discharge Orders: Discharge Order (Routine); Ordered 10/12/21 Ordered By: Rodo Hong Admission Data Admit Date/Time: 09/29/21 20:48 Attending Provider: Rodo Hong Admit Provider: Ceferino Alvarez Primary Care Provider: Celina Saunders Other Providers: Dmitriy Asif ; Tabitha Aviles ; Itz Mccabe ; Demian Rosenberg Other Interventions: Discharge Summary Assessment (RN) Last Done: 10/12/21 07:52 Coding Level of Care Code D/C DAY MANAGEMENT >30 MINS Diagnoses Acute respiratory failure with hypoxia J96.01 AICD (automatic cardioverter/defibrillator) present Z95.810 Anemia D64.9 CAD (coronary artery disease) I25.10 Catheter-associated urinary tract infection T83.511A; N39.0 COVID-19 U07.1 Dementia F03.90 Dyslipidemia E78.5 History of WI (myocardial infarction) I25.2 Nocturnal hypoxia G47.34 Paroxysmal atrial fibrillation I48.0 Stage 3b chronic kidney disease N18.32 Chronic diastolic heart failure I50.32
== END 2021-10-12 10:31 | DRG 177 ==
LOC: ED 15:59 → EDINP 20:48 → SUATTDRO 20:48 → 2S 09-30 00:10

== ENCOUNTER 2021-11-04 15:05 | Inpatient (IN) ==
--- NOTE | 2021-11-04 15:14 | Emergency Department Note ---
Impression & Plan Multifocal pneumonia, Acute respiratory failure with hypoxia, Septic shock ED Provider Note Name: HAYES KING Age: 81 Sex: M Arrives Via: Ambulance Informant: Patient (poor historian given respiratory failure), EMS, Chart, (via phone) ED Provider: Arpan Shrestha MD Chief Complaint: Respiratory distress Impression: As per impressions above Medical Decision Makin-year-old gentleman with significant respiratory history who recently was discharged from rehab facility arrives in severe respiratory distress. Apparently worsening breathing over the weekend and then some vomiting this morning which rapidly worsened his breathing. EMS arrived to find the patient with O2 sats in the 60s severely diaphoretic and in severe distress. Placed on CPAP in route with some improvement and then switched to BiPAP with vast improvement on arrival. Lung exam is quite poor with diffuse crackles. Vitals with sats much better and initial pressure is okay. Patient does have a moderately distended abdomen without significant tenderness palpation. Initially he was treated as septic but I will note that he did become worsening hypotension. I suspect he is in septic shock. He was given small boluses of IV fluids but after 1.5 L IV normal saline I do not feel comfortable giving further fluids given his severe congestive failure history and likely to rapidly worsen his respiratory status if further fluids. He was given empiric Zosyn IV as high concern for aspiration type event. With persistent hypotension he was started on Levophed. I will note that I did obtain a CT of the abdomen pelvis with out IV contrast which reveals significant rectal impaction as well as a moderate amount of fluid within the esophagus itself. This is a difficult situation as patient is doing quite well on the BiPAP at this time and to remove it to get an NG tube good hasten his demise. Given he has not had any nausea vomiting and is denying any current abdominal pain or nausea opted to avoid NG tube and will defer to hospitalist to eval as well. It is understood that he could continue to build up some gastric distention on BiPAP but I will note that he actually appears a bit better from abdominal standpoint throughout the stay. Patient does have an elevated lactic acid as well as extensive other labs that are abnormal. These are all consistent with severe illness and the septic shock that he currently is in. At this point I do suspect the primary cause of sepsis is an aspiration event and was treated as such. Patient did test positive for COVID-19. Unclear if this is a residual positive from his infection in September 2021 or whether this constitutes a new infection. He was kept in isolation precautions while awaiting further clarity of this. Given he does not really have any abdominal tenderness to palpation at this point and is well noncontrast CT of the abdomen pelvis does not reveal any clear evidence of ischemia do not see that getting a general surgeon involved would be indicated at this time. I will note I had a long discussion with the regarding my concerns of his worsening status. She notes that patient would not want any sort of CPR and after further discussion seems he would not want to be intubated. I did request that either she or some other family member come in so we can discuss this in person at bedside as well. Prior Medical Record and Triage/Nursing Notes reviewed by Me Additional history obtained from chart, EMS, Differentials:Reactive airway disease, pneumonia, pneumothorax, COPD, CHF, infections, cardiac ischemia, pulmonary embolism, musculoskeletal, gastrointestinal, as well as other pathologies. Vital Signs: reviewed and remarkable for hypotension, hypoxia Interventions: Normal saline bolus 1.5 L IV total, Zosyn IV, Levophed IV, Decadron 10 mg IV (h/o COPD as well as previous steroid use) I will note from a septic shock management perspective patient did not receive 30 mL/kg normal saline bolus as history of congestive heart failure and was instead given 1.5 L IV fluids for management of the septic shock followed by pressors. This was done in an attempt to avoid significant fluid overload that the patient is at high risk of having. Labs:Reviewed and remarkable for elevated lactic acid, elevated white blood cell count amongst multiple other laboratory abnormalities Imagin view chest x-ray reviewed by me reviewed small today focal infiltrates throughout lungs CT of the abdomen pelvis as per radiologist see report on chart but will note significant colonic distention with fecal retention as well as moderate gastric distention and fluid within the distal esophagus Consults:Dr Wolf LEIJA Hospitalist Plan: Disposition:Hospitalization. Condition: Critical History of Present Illness:81-year-old gentleman arrives for evaluation of breathing difficulty. Patient notes worsening abdominal pain over the last day or so and then vomiting throughout this morning. Worsening shortness of breath this morning as well. Family called 911. On arrival EMS reports oxygen saturation of 60%, blood pressure difficult to obtain and a heart rate in the 40s. Patient was diaphoretic and in severe distress. He was placed on CPAP with vast improvement. No medications prior to arrival. History of intubation previously for pneumonia as well as other issues. Patient is reportedly a full code. ROS: Patient on CPAP in respiratory distress thus unable to obtain review of systems. Past Medical History:See Below Past Surgical History:See Below Family History:See Below Social History:See Below Home Medications:See Below Allergies:See Below Vitals:Blood Pressure: 105/40, Pulse 54, RR 25, T 35.9C, O2 93% on CPAP Physical Exam: GENERAL: Patient is unwell appearing appearing and in severe distress. EYES: No scleral icterus, unremarkable pupils. ENT: Mucous membranes moist, no nasal congestion. NECK: No masses appreciated, nomeningismus, trachea is midline. RESPIRATORY: Diffuse crackles and wet lung sounds throughout with mild tachypnea CARDIOVASCULAR: Bradycardia.No murmurs, rubs, gallops appreciated. GASTROINTESTINAL: Moderately distended with diffuse mild tenderness palpation and some firmness though normal active bowel sounds. Michel in place. BACK: No midline tenderness, no CVA tenderness EXTREMITIES: Normal motion all extremities, mild edema bilateral lower legs. NEUROLOGIC: Alert though unable to talk much due to CPAP., no acute motor or sensory deficits, no focal weakness, cranial nerves grossly intact. SKIN: Mottled pale extremities, no rash, no jaundice, no diaphoresis. ED Course: Times/Reassessments: Multiple extensive repeat evaluations throughout the stay managing this critically ill patient he did appear vastly improved following switch to BiPAP Critical Care: I have personally spent 75 minutes of critical care time in the direct management of this patient. Acute respiratory Failure secondary to aspiration pneumonia. This was a life/limb threatening event. This 75 minutes is in excess of all separately billable procedures. 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 On donepezil and memantine, follows with neurology Dyslipidemia History of kidney stones History of DE (myocardial infarction) 1997- Follows with Dr. Hodge/Kassidy History of recent hospitalization Admitted to [facility] 07/10/21-07/14/21- for staph bacteremia secondary to infected wound at suprapubic catheter site, UTI, acute metabolic encephalopathy; per 08/09/21 neuro note- bacteremia resolved with abxs, acute metabolic encephalopathy resolved, mental status back to baseline, UTI/GIOVANY resolved after abx. 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 SSS Initially implanted in 2008- generator change in 2017 Paroxysmal atrial fibrillation NO HX CARDIOVERSION On Eliquis Recurrent UTI Secondary hyperparathyroidism of renal origin Sleep apnea NO DEVICE USED UNABLE TO TOLERATE CPAP Stage 3b chronic kidney disease Suprapubic catheter In place secondary to neurogenic bladder Surgical History H/O total knee replacement R/L History of back surgery MULTIPLE History of cardiac cath Multiple cardiac stents (x4 total)- most recent 3+ years ago History of carpal tunnel release of both wrists History of cataract surgery B/L History of colonoscopy History of lithotripsy History of lumbar fusion History of prostate surgery Partial prostatectomy History of thyroidectomy secondary to goiter History of tooth extraction All teeth S/P cystoscopy with ureteral stent placement last 05/2021 @ [facility] Dr. William Medrano- Cystoscopy, Bilateral retrograde pyelogram, Bilateral ureteral stent exchange, Left aspiration and culture S/P TURP S/P ureteral stent placement Cysto, B/L RPG, right ureteroscopy, stent exchange: 07/06/18: LMA#5 at [facility] Cysto stent exchange (11/2018) Cystoscopy, stent exchange, suprapubic catheter (04/30/20): MAC at [facility] Family History Father Diabetes Mother Coronary heart disease Hypertension Brother Seizure Other No family history of adverse response to anesthesia Denies family history of Ovarian cancer Prostate cancer Myocardial infarction Breast cancer Colorectal cancer Social History Smoking Status: Never smoker Tobacco Type: Cigarettes Age Started Using Tobacco: 15; Age Quit Using Tobacco: 59; packs per day: 2; Second Hand Exposure: No; Do You Dip or Chew Tobacco: No; Tobacco Cessation Education Requested by Patient: No Hx Alcohol Use: No Hx Substance Use: No Preferred Language: Mauritian Communication Ability: Effective Visual Impairment: No Limitations Hearing Ability: Hard of Hearing Machine Gunner Required: No Beliefs That Will Affect Care: None marital status: Current Living Situation: Spouse and Family Current Living Situation Comment: spouse and daughters current occupational status: retired How many Children do You have: 3 Other Information That Helps Us Care for You: No Feels Safe at Home: Yes Safety Concerns: Feels Safe At This Time Childhood Exposure to Second-Hand Smoke: No caffeine: Yes (Coffee 3 per day.) during the past year weight has: remained stable Dental Care, Regularly: No Physical Activity Frequency: Does not Exercise Seatbelt Use: always Sunscreen Use: No Assistive Devices: Walker and Wheelchair Allergies Allergies Allergy/AdvReac Type Severity Reaction Status Date / Time captopril Allergy Severe Anaphylaxis Verified 11/04/21 18:06 Iodinated Contrast Media Allergy Severe Anaphylaxis Verified 11/04/21 18:06 morphine Allergy Severe Anaphylaxis Verified 11/04/21 18:06 oxaprozin Allergy Severe Anaphylaxis Verified 11/04/21 18:06 torsemide Allergy Severe Anaphylaxis Verified 11/04/21 18:06 hydrocodone Allergy Mild Rash Verified 11/04/21 18:06 Home Meds Home Medications Medication Instructions Recorded Confirmed cyanocobalamin (vitamin B-12) 1,000 mcg PO QAM 07/16/20 11/04/21 1,000 mcg tablet ferrous sulfate 325 mg (65 mg 325 mg PO QAM 07/16/20 11/04/21 iron) tablet,delayed release polyethylene glycol 3350 17 gram 17 g PO BID PRN Constipation 07/16/20 11/04/21 oral powder packet (Miralax) ascorbic acid (vitamin C) 500 mg 500 mg PO QAM 10/22/20 11/04/21 tablet (Vitamin C) docusate sodium 100 mg capsule 100 mg PO BID PRN Constipation 10/22/20 11/04/21 (Stool Softener) vitamin E 268 mg (400 unit) capsule 400 unit PO HS 10/22/20 11/04/21 nystatin 100,000 unit/gram topical 1 applic topical UD PRN Skin 05/22/21 11/04/21 cream Irritation calcium carbonate 500 mg-vitamin 1 tab PO DAILY 09/29/21 11/04/21 D3 5 mcg (200 unit) tablet carvedilol 3.125 mg tablet 3.125 mg PO BIDWMEAL 09/29/21 11/04/21 famotidine 40 mg tablet (Pepcid) 40 mg PO DAILYBB 09/29/21 11/04/21 dexamethasone 6 mg tablet 6 mg PO DAILY 11/04/21 11/04/21 simvastatin 20 mg tablet 20 mg PO DAILY 11/04/21 11/04/21 Previous Rx's Medication Instructions Recorded acetaminophen 325 mg tablet 650 mg PO Q4H PRN pain #30 tabs 08/14/19 folic acid 1 mg tablet 1 mg PO QAM #90 tabs 10/04/19 albuterol sulfate 90 mcg/actuation 2 puff inhalation Q6H PRN 07/09/20 aerosol inhaler (Ventolin HFA) cough/wheeze/shortness of breath #1 inhaler albuterol sulfate 2.5 mg/3 mL 2.5 mg (3 mL) inhalation QID PRN 04/16/21 (0.083 %) solution for nebulization shortness of breath or wheezing #75 mL isosorbide mononitrate 30 mg 30 mg PO QAM #90 tabs 05/22/21 tablet,extended release 24 hr gabapentin 300 mg capsule 300 mg PO HS #90 caps 06/14/21 ipratropium 0.5 mg-albuterol 3 mg 3 ml inhalation Q6H PRN wheezing 06/20/21 (2.5 mg base)/3 mL nebulization #90 mL soln levothyroxine 112 mcg tablet 112 mcg PO HS #90 tabs 07/03/21 (Synthroid) bethanechol chloride 50 mg tablet 50 mg PO QID #360 tabs 07/09/21 bupropion HCl 100 mg tablet,12 hr 100 mg PO BID #60 ea 08/09/21 sustained-release apixaban 2.5 mg tablet (Eliquis) 2.5 mg PO BID #180 tabs 08/13/21 tamsulosin 0.4 mg capsule 0.4 mg PO HS #30 caps 08/22/21 tramadol 50 mg tablet 50 mg PO TID PRN Pain #30 tabs 09/03/21 memantine 10 mg tablet (Namenda) 10 mg PO BID #180 tabs 09/09/21 benzonatate 100 mg capsule 100 mg PO TID PRN cough #30 caps 09/23/21 donepezil 10 mg tablet 10 mg PO HS #90 tabs 09/23/21 amlodipine 5 mg tablet (Norvasc) 5 mg PO QAM #30 tabs 10/12/21 Results & Data (ED) Vital Signs Vital Signs - 24 hr 11/04/21 15:08 11/04/21 15:08 11/04/21 15:16 Temperature Temperature Source Pulse Rate 53 L Pulse Rate from SpO2 Sensor Respiratory Rate 23 Respiratory Effort / Characteristics Spontaneous Labored Non-Labored Spontaneous Respiratory Depth Normal Normal Respiratory Pattern Regular Regular Blood Pressure 102/59 L Blood Pressure [Right Arm] Blood Pressure Mean 73 Blood Pressure Mean [Right Arm] Blood Pressure Position Lying Blood Pressure Position [Right Arm] Pulse Oximetry 89 L 91 Oxygen Delivery Method BiPAP BiPAP Fraction of Inspired Oxygen Sepsis Recent Fever Within 48 Hours No Sepsis New/Unexplained Change in Mental Status No Sepsis Action Taken by Nursing No Action Required 11/04/21 16:04 11/04/21 15:10 11/04/21 16:59 Temperature 35.2 C L Temperature Source Rectal Pulse Rate 56 L Pulse Rate from SpO2 Sensor Respiratory Rate 30 H Respiratory Effort / Characteristics Spontaneous Respiratory Depth Deep Respiratory Pattern Tachypnea Blood Pressure Blood Pressure [Right Arm] 79/42 L Blood Pressure Mean Blood Pressure Mean [Right Arm] 54 Blood Pressure Position Blood Pressure Position [Right Arm] Lying Pulse Oximetry 97 Oxygen Delivery Method Fraction of Inspired Oxygen 90 Sepsis Recent Fever Within 48 Hours Sepsis New/Unexplained Change in Mental Status Sepsis Action Taken by Nursing 11/04/21 15:19 11/04/21 15:20 11/04/21 15:30 Temperature Temperature Source Pulse Rate 56 L 53 L 58 L Pulse Rate from SpO2 Sensor 54 L 53 L 53 L Respiratory Rate 25 H 25 H 28 H Respiratory Effort / Characteristics Respiratory Depth Respiratory Pattern Blood Pressure Blood Pressure [Right Arm] Blood Pressure Mean Blood Pressure Mean [Right Arm] Blood Pressure Position Blood Pressure Position [Right Arm] Pulse Oximetry 87 L 88 L 97 Oxygen Delivery Method BiPAP BiPAP BiPAP Fraction of Inspired Oxygen Sepsis Recent Fever Within 48 Hours Sepsis New/Unexplained Change in Mental Status Sepsis Action Taken by Nursing 11/04/21 15:40 11/04/21 15:50 11/04/21 16:00 Temperature Temperature Source Pulse Rate 53 L 74 53 L Pulse Rate from SpO2 Sensor 53 L 56 L 53 L Respiratory Rate 26 H 26 H 20 Respiratory Effort / Characteristics Respiratory Depth Respiratory Pattern Blood Pressure Blood Pressure [Right Arm] Blood Pressure Mean Blood Pressure Mean [Right Arm] Blood Pressure Position Blood Pressure Position [Right Arm] Pulse Oximetry 97 95 96 Oxygen Delivery Method BiPAP BiPAP BiPAP Fraction of Inspired Oxygen Sepsis Recent Fever Within 48 Hours Sepsis New/Unexplained Change in Mental Status Sepsis Action Taken by Nursing 11/04/21 16:10 11/04/21 16:30 11/04/21 16:40 Temperature Temperature Source Pulse Rate 53 L 85 60 Pulse Rate from SpO2 Sensor 53 L 52 L Respiratory Rate 24 19 23 Respiratory Effort / Characteristics Respiratory Depth Respiratory Pattern Blood Pressure Blood Pressure [Right Arm] Blood Pressure Mean Blood Pressure Mean [Right Arm] Blood Pressure Position Blood Pressure Position [Right Arm] Pulse Oximetry 98 95 Oxygen Delivery Method BiPAP BiPAP BiPAP Fraction of Inspired Oxygen Sepsis Recent Fever Within 48 Hours Sepsis New/Unexplained Change in Mental Status Sepsis Action Taken by Nursing 11/04/21 16:50 11/04/21 17:00 11/04/21 17:10 Temperature Temperature Source Pulse Rate 53 L 60 53 L Pulse Rate from SpO2 Sensor 53 L 52 L 53 L Respiratory Rate 20 21 23 Respiratory Effort / Characteristics Respiratory Depth Respiratory Pattern Blood Pressure Blood Pressure [Right Arm] Blood Pressure Mean Blood Pressure Mean [Right Arm] Blood Pressure Position Blood Pressure Position [Right Arm] Pulse Oximetry 96 97 97 Oxygen Delivery Method BiPAP BiPAP BiPAP Fraction of Inspired Oxygen Sepsis Recent Fever Within 48 Hours Sepsis New/Unexplained Change in Mental Status Sepsis Action Taken by Nursing 11/04/21 17:20 11/04/21 17:30 11/04/21 17:35 Temperature Temperature Source Pulse Rate 59 L 53 L Pulse Rate from SpO2 Sensor 53 L 53 L Respiratory Rate 23 22 Respiratory Effort / Characteristics Respiratory Depth Respiratory Pattern Blood Pressure 118/66 Blood Pressure [Right Arm] Blood Pressure Mean 83 Blood Pressure Mean [Right Arm] Blood Pressure Position Blood Pressure Position [Right Arm] Pulse Oximetry 100 99 Oxygen Delivery Method BiPAP BiPAP BiPAP Fraction of Inspired Oxygen Sepsis Recent Fever Within 48 Hours Sepsis New/Unexplained Change in Mental Status Sepsis Action Taken by Nursing 11/04/21 17:35 11/04/21 17:40 11/04/21 17:41 Temperature Temperature Source Pulse Rate 53 L 57 L 59 L Pulse Rate from SpO2 Sensor 54 L 53 L 53 L Respiratory Rate Respiratory Effort / Characteristics Respiratory Depth Respiratory Pattern Blood Pressure Blood Pressure [Right Arm] Blood Pressure Mean Blood Pressure Mean [Right Arm] Blood Pressure Position Blood Pressure Position [Right Arm] Pulse Oximetry 98 97 98 Oxygen Delivery Method BiPAP BiPAP BiPAP Fraction of Inspired Oxygen Sepsis Recent Fever Within 48 Hours Sepsis New/Unexplained Change in Mental Status Sepsis Action Taken by Nursing 11/04/21 17:41 Temperature Temperature Source Pulse Rate Pulse Rate from SpO2 Sensor Respiratory Rate Respiratory Effort / Characteristics Respiratory Depth Respiratory Pattern Blood Pressure 89/73 L Blood Pressure [Right Arm] Blood Pressure Mean 78 Blood Pressure Mean [Right Arm] Blood Pressure Position Blood Pressure Position [Right Arm] Pulse Oximetry Oxygen Delivery Method BiPAP Fraction of Inspired Oxygen Sepsis Recent Fever Within 48 Hours Sepsis New/Unexplained Change in Mental Status Sepsis Action Taken by Nursing Laboratory Data Result diagrams: 11/04/21 15:20 11/04/21 15:20 Lab Results 11/04/21 11/04/21 11/04/21 Range/Units 15:20 15:20 15:20 WBC 17.85 H (4.8-10.8) K/ul RBC 4.40 L (4.63-6.08) M/uL Hgb 13.6 L (14.0-18.0) g/dl POC Hgb (14.0-18.0) g/dl Hct 42.1 (40.1-51.0) % POC Hct (42-52) % MCV 95.7 (80.0-100.0) fL MCH 30.9 (25.0-34.0) pg MCHC 32.3 (32.0-36.0) g/dL RDW Std Deviation 51.9 H (36.4-46.3) fL RDW Coeff of Curtis 15.0 H (11.5-14.5) % Plt Count 232 (130-400) K/uL MPV 9.7 (9.4-12.4) fL Immature Gran % (Auto) 4.0 % Neut % (Auto) 85.2 % Lymph % (Auto) 7.9 % [place] % (Auto) 2.6 % Eos % (Auto) 0.1 % Baso % (Auto) 0.2 % Neut # (Auto) 15.20 H (1.4-6.5) K/uL Lymph # (Auto) 1.41 (1.2-3.4) K/uL [place] # (Auto) 0.47 (0.24-0.82) K/uL Eos # (Auto) 0.02 (0-0.50) K/uL Baso # (Auto) 0.04 (0-0.2) K/uL Immature Gran # (Auto) 0.71 H (0.00-0.02) K/uL ABG pH (7.35-7.45) ABG pCO2 (35-46) mmHg ABG pO2 (80-95) mmHg ABG HCO3 (19-24) mmol/L ABG O2 Saturation (90-95) % ABG Base Excess (-9-1.8) mEq/L Bunny Test (Pos) Oxygen Given POC Sodium (135-144) mmol/L Sodium 141 (136-145) mmol/L POC Potassium (3.3-5.0) mmol/L Potassium 4.4 (3.5-5.1) mmol/L POC Chloride (101-112) mmol/L Chloride 103 (98-107) mmol/L Carbon Dioxide 27 (21-32) mmol/L POC Total CO2 (24-31) mmol/L Anion Gap 11 (3-11) POC Anion Gap (16-25) mmol/L POC BUN (7-18) mg/dl BUN 43 H (6-23) mg/dl Creatinine 2.20 H (0.6-1.4) mg/dl POC Creatinine (0.6-1.3) mg/dl Est Cr Clr Drug Dosing 26.7 ml/min Est GFR ( Amer) 31.2 ml/min Est GFR (Non-Af Amer) 26.9 ml/min BUN/Creatinine Ratio 19.5 (10-20) Glucose 156 H (70-99(Fasting)) mg/dl POC Glucose (other) (70-99) mg/dl Lactate (0.4-2.0) mmol/L Calcium 8.7 (8.5-10.1) mg/dl POC Ioniz Calcium Eitan (1.12-1.32) mmol/l Magnesium 2.6 H (1.7-2.4) mg/dl Total Bilirubin 1.6 H (0.2-1.0) mg/dl Direct Bilirubin 1.0 H (0-0.2) mg/dl AST 249 H (13-39) U/L ALT 165 H (7-52) U/L Alkaline Phosphatase 167 H (34-104) U/L Troponin I High Sens 29.3 H D (0-20) pg/ml Total Protein 6.6 (6.0-8.3) gm/dl Albumin 3.3 L (3.4-5.0) gm/dl Procalcitonin 0.26 (0-0.5) ng/ml Urine Color Urine Appearance (Clear) Urine pH (4.5-7.5) Ur Specific Bend (1.000-1.030) Urine Protein (Negative) Urine Glucose (UA) (Negative) Urine Ketones (Negative) Urine Blood (Negative) Urine Nitrite (Negative) Urine Bilirubin (Negative) Urine Urobilinogen (Negative) Ur Leukocyte Esterase (Negative) Urine RBC (0-4) /hpf Urine WBC (0-5) /hpf Ur Epithelial Cells (0-5) /lpf Urine Bacteria (Negative) Urine Yeast (None Prsent) SARS-CoV-2 (PCR) (Negative) Influenza Type A (PCR) (Neg) Influenza Type B (PCR) (Neg) RSV (RT-PCR) (Neg) 11/04/21 11/04/21 11/04/21 Range/Units 15:26 15:32 15:36 WBC (4.8-10.8) K/ul RBC (4.63-6.08) M/uL Hgb (14.0-18.0) g/dl POC Hgb 14.3 (14.0-18.0) g/dl Hct (40.1-51.0) % POC Hct 42 (42-52) % MCV (80.0-100.0) fL MCH (25.0-34.0) pg MCHC (32.0-36.0) g/dL RDW Std Deviation (36.4-46.3) fL RDW Coeff of Curtis (11.5-14.5) % Plt Count (130-400) K/uL MPV (9.4-12.4) fL Immature Gran % (Auto) % Neut % (Auto) % Lymph % (Auto) % [place] % (Auto) % Eos % (Auto) % Baso % (Auto) % Neut # (Auto) (1.4-6.5) K/uL Lymph # (Auto) (1.2-3.4) K/uL [place] # (Auto) (0.24-0.82) K/uL Eos # (Auto) (0-0.50) K/uL Baso # (Auto) (0-0.2) K/uL Immature Gran # (Auto) (0.00-0.02) K/uL ABG pH (7.35-7.45) ABG pCO2 (35-46) mmHg ABG pO2 (80-95) mmHg ABG HCO3 (19-24) mmol/L ABG O2 Saturation (90-95) % ABG Base Excess (-9-1.8) mEq/L Bunny Test (Pos) Oxygen Given POC Sodium 142 (135-144) mmol/L Sodium (136-145) mmol/L POC Potassium 4.4 (3.3-5.0) mmol/L Potassium (3.5-5.1) mmol/L POC Chloride 104 (101-112) mmol/L Chloride (98-107) mmol/L Carbon Dioxide (21-32) mmol/L POC Total CO2 27 (24-31) mmol/L Anion Gap (3-11) POC Anion Gap 16.0 (16-25) mmol/L POC BUN 44 H (7-18) mg/dl BUN (6-23) mg/dl Creatinine (0.6-1.4) mg/dl POC Creatinine 2.1 H (0.6-1.3) mg/dl Est Cr Clr Drug Dosing ml/min Est GFR ( Amer) ml/min Est GFR (Non-Af Amer) ml/min BUN/Creatinine Ratio (10-20) Glucose (70-99(Fasting)) mg/dl POC Glucose (other) 164 H (70-99) mg/dl Lactate 3.6 H* (0.4-2.0) mmol/L Calcium (8.5-10.1) mg/dl POC Ioniz Calcium Eitan 1.13 (1.12-1.32) mmol/l Magnesium (1.7-2.4) mg/dl Total Bilirubin (0.2-1.0) mg/dl Direct Bilirubin (0-0.2) mg/dl AST (13-39) U/L ALT (7-52) U/L Alkaline Phosphatase (34-104) U/L Troponin I High Sens (0-20) pg/ml Total Protein (6.0-8.3) gm/dl Albumin (3.4-5.0) gm/dl Procalcitonin (0-0.5) ng/ml Urine Color Urine Appearance (Clear) Urine pH (4.5-7.5) Ur Specific [place] (1.000-1.030) Urine Protein (Negative) Urine Glucose (UA) (Negative) Urine Ketones (Negative) Urine Blood (Negative) Urine Nitrite (Negative) Urine Bilirubin (Negative) Urine Urobilinogen (Negative) Ur Leukocyte Esterase (Negative) Urine RBC (0-4) /hpf Urine WBC (0-5) /hpf Ur Epithelial Cells (0-5) /lpf Urine Bacteria (Negative) Urine Yeast (None Prsent) SARS-CoV-2 (PCR) POSITIVE A* (Negative) Influenza Type A (PCR) Negative (Neg) Influenza Type B (PCR) Negative (Neg) RSV (RT-PCR) Negative (Neg) 11/04/21 11/04/21 11/04/21 Range/Units 15:36 17:06 17:40 WBC (4.8-10.8) K/ul RBC (4.63-6.08) M/uL Hgb (14.0-18.0) g/dl POC Hgb (14.0-18.0) g/dl Hct (40.1-51.0) % POC Hct (42-52) % MCV (80.0-100.0) fL MCH (25.0-34.0) pg MCHC (32.0-36.0) g/dL RDW Std Deviation (36.4-46.3) fL RDW Coeff of Curtis (11.5-14.5) % Plt Count (130-400) K/uL MPV (9.4-12.4) fL Immature Gran % (Auto) % Neut % (Auto) % Lymph % (Auto) % [place] % (Auto) % Eos % (Auto) % Baso % (Auto) % Neut # (Auto) (1.4-6.5) K/uL Lymph # (Auto) (1.2-3.4) K/uL [place] # (Auto) (0.24-0.82) K/uL Eos # (Auto) (0-0.50) K/uL Baso # (Auto) (0-0.2) K/uL Immature Gran # (Auto) (0.00-0.02) K/uL ABG pH 7.47 H (7.35-7.45) ABG pCO2 32 L (35-46) mmHg ABG pO2 97 H (80-95) mmHg ABG HCO3 23 (19-24) mmol/L ABG O2 Saturation 99.1 H (90-95) % ABG Base Excess 0.3 (-9-1.8) mEq/L Bunny Test POS (Pos) Oxygen Given 100% BiPap POC Sodium (135-144) mmol/L Sodium (136-145) mmol/L POC Potassium (3.3-5.0) mmol/L Potassium (3.5-5.1) mmol/L POC Chloride (101-112) mmol/L Chloride (98-107) mmol/L Carbon Dioxide (21-32) mmol/L POC Total CO2 (24-31) mmol/L Anion Gap (3-11) POC Anion Gap (16-25) mmol/L POC BUN (7-18) mg/dl BUN (6-23) mg/dl Creatinine (0.6-1.4) mg/dl POC Creatinine (0.6-1.3) mg/dl Est Cr Clr Drug Dosing ml/min Est GFR ( Amer) ml/min Est GFR (Non-Af Amer) ml/min BUN/Creatinine Ratio (10-20) Glucose (70-99(Fasting)) mg/dl POC Glucose (other) (70-99) mg/dl Lactate 3.6 H* (0.4-2.0) mmol/L Calcium (8.5-10.1) mg/dl POC Ioniz Calcium [place] (1.12-1.32) mmol/l Magnesium (1.7-2.4) mg/dl Total Bilirubin (0.2-1.0) mg/dl Direct Bilirubin (0-0.2) mg/dl AST (13-39) U/L ALT (7-52) U/L Alkaline Phosphatase (34-104) U/L Troponin I High Sens (0-20) pg/ml Total Protein (6.0-8.3) gm/dl Albumin (3.4-5.0) gm/dl Procalcitonin (0-0.5) ng/ml Urine Color Red Urine Appearance Turbid A (Clear) Urine pH 6.0 (4.5-7.5) Ur Specific [place] 1.020 (1.000-1.030) Urine Protein 3+ H (Negative) Urine Glucose (UA) Negative (Negative) Urine Ketones Negative (Negative) Urine Blood 3+ H (Negative) Urine Nitrite Negative (Negative) Urine Bilirubin Negative (Negative) Urine Urobilinogen Negative (Negative) Ur Leukocyte Esterase 3+ H (Negative) Urine RBC >30 H (0-4) /hpf Urine WBC >30 H (0-5) /hpf Ur Epithelial Cells 0-5 (0-5) /lpf Urine Bacteria Negative (Negative) Urine Yeast Present A (None Prsent) SARS-CoV-2 (PCR) (Negative) Influenza Type A (PCR) (Neg) Influenza Type B (PCR) (Neg) RSV (RT-PCR) (Neg) Administered Medications Albuterol (Albut/Ipratrop 3mg/0.5mg Neb 3 Ml Vial) 3 ml INH QIDR FLEX Stop: 12/04/21 20:33 Last Admin: 11/04/21 21:03 Dose: 3 ml Documented By: CS Heparin Sodium (Porcine) (Heparin Sod 5,000 Unit/0.5 Ml Vial) 5,000 units SQ Q12 FLEX Stop: 12/04/21 20:59 Last Admin: 11/04/21 21:37 Dose: Not Given Documented By: BPY Norepinephrine Bitartrate (Levophed/D5w) 4 mg in 250 mls @ 15.638 mls/hr IV .Q16H FLEX; Protocol Stop: 12/04/21 17:29 Last Titration: 11/04/21 18:41 Dose: 0.09 mcg/kg/min, 28.1 mls/hr Documented By: Titration: 11/04/21 18:12 Dose: 0.07 mcg/kg/min, 21.9 mls/hr Documented By: Admin: 11/04/21 17:26 Dose: 0.05 mcg/kg/min, 15.6 mls/hr Documented By: MADELEINE Co-signed By: DIMAS Metronidazole (Flagyl) 500 mg in 100 mls @ 100 mls/hr IV Q8H FLEX; Protocol Stop: 11/14/21 20:29 Last Infusion: 11/04/21 22:29 Dose: 0 mls/hr Documented By: Admin: 11/04/21 21:24 Dose: 100 mls/hr Documented By: MATILDE Cefepime HCl 1,000 mg/ Syringe 10 mls @ 5 mls/min IV Q12H FLEX; Protocol Stop: 11/14/21 20:29 Last Admin: 11/04/21 21:24 Dose: 5 mls/min Documented By: MATILDE Parenteral Electrolytes (Normosol-R) 1,000 mls @ 100 mls/hr IV .Q10H FLEX Stop: 12/04/21 20:33 Last Admin: 11/04/21 21:30 Dose: 100 mls/hr Documented By: MATILDE Levothyroxine Sodium (Levothyroxine Sodium 112 Mcg Tablet) [address] [facility] Stop: 12/04/21 20:59 Last Admin: 11/04/21 21:35 Dose: Not Given Documented By: MATILDE Sennosides (Senna 8.6 Mg Tab) 17.[address] [facility] Stop: 12/04/21 20:59 Last Admin: 11/04/21 21:36 Dose: Not Given Documented By: MATILDE Discontinued Medications Bisacodyl (Bisacodyl 10 Mg Supp) 10 mg ID ONE ONE Stop: 11/04/21 21:01 Last Admin: 11/04/21 21:34 Dose: Not Given Documented By: MATILDE Dexamethasone Sodium Phosphate (DexamethasonePf 10 Mg/Ml Vial) 10 mg IV NOW ONE Stop: 11/04/21 17:21 Last Admin: 11/04/21 17:25 Dose: 10 mg Documented By: MADELEINE Hydrocortisone Sodium Succinate (Hydrocortisone Sod Succinate 100 Mg/2 Ml Vial) 100 mg IV NOW STA Stop: 11/04/21 17:50 Last Admin: 11/04/21 18:16 Dose: Not Given Documented By: MADELEINE Piperacillin Sod/Tazobactam Sod (Zosyn) 4.5 gm in 120 mls @ 240 mls/hr IV NOW ONE Stop: 11/04/21 16:14 Last Infusion: 11/04/21 16:58 Dose: 0 mls/hr Documented By: Admin: 11/04/21 15:46 Dose: 240 mls/hr Documented By: MADELEINE Sodium Chloride (Nss) 500 mls @ 999 mls/hr IV .Q31M ONE Stop: 11/04/21 16:24 Last Infusion: 11/04/21 16:58 Dose: 0 mls/hr Documented By: Admin: 11/04/21 16:10 Dose: 999 mls/hr Documented By: MADELEINE Sodium Chloride (Nss 1000ml) 1,000 mls @ 999 mls/hr IV .Q1H1M ONE Stop: 11/04/21 17:57 Last Infusion: 11/04/21 17:51 Dose: 0 mls/hr Documented By: Admin: 11/04/21 16:59 Dose: 999 mls/hr Documented By: MADELEINE Miscellaneous (Stat Iv Infusion Titration Per Protocol) 1 each N/A NOW STA Stop: 11/04/21 17:21 Last Admin: 11/04/21 17:26 Dose: Not Given Documented By: MADELEINE Imaging Data Radiologist's Impression: Chest X-Ray 11/04/21 15:09 XR chest 1V portable CLINICAL HISTORY: Sepsis TECHNIQUE: Single frontal radiograph of the chest was obtained. Comparison: Comparison is made to chest radiograph 10/08/[address] chest 10/08/2021 FINDINGS: Dual lead pacemaker is seen. Cardiomegaly is noted. A few airspace opacities in the bilateral lungs are somewhat less conspicuous than in the prior exam. Lungs are underinflated. No evidence of pleural effusion or pneumothorax. IMPRESSION: Underinflated lungs with interval improvement in multifocal airspace opacities which may represent improving infectious/inflammatory process. Recommend follow- up to resolution. ACT 112: Negative or not required by law. Electronically signed by: Negro Etienne M.D. 11/04/2021 3:52 PM Abdomen/Pelvis CT 11/04/21 15:52 CT SCAN OF THE ABDOMEN AND PELVIS WITHOUT IV CONTRAST CLINICAL HISTORY: Generalized abdominal pain and swelling. COMPARISON STUDY: Abdominal CT dated 07/26/2021. TECHNIQUE: CT scan of the abdomen and pelvis is performed from the lung bases to the proximal femora. Images are reviewed in the axial, sagittal, and coronal planes. IV contrast was not administered for this examination. Note that examination is suboptimal lateral and 90 contrast. A dose lowering technique was utilized adhering to the principles of ALARA. CT DOSE: 875.11 mGycm FINDINGS: Lung bases: The heart is top normal in size and without pericardial effusion. Pacemaker leads are noted. The coronary arteries are densely calcified. Dependent consolidation is seen at both lung bases. No pleural effusion is identified. The distal esophagus is mildly distended and fluid-filled. Liver: The unenhanced liver is normal in size, contour, and attenuation. There is no intrahepatic biliary ductal dilatation. Gallbladder: Surgically absent noting clips in the gallbladder fossa. Spleen: Normal in size and attenuation. There are calcified splenic granulomas. Pancreas: The unenhanced pancreas is moderately atrophic and grossly unremarkable. Adrenal glands: Unremarkable. Kidneys: The unenhanced kidneys are atrophic. Bilateral vesicoureteral stents are in place. No calcifications are seen in either ureter along the course of the stents. No calculi are identified in either kidney. There is gas within the renal collecting system bilaterally. There is severe left and moderate right hydronephrosis. There are 2 left renal cyst which measured 4.4 cm. Urothelial thickening is noted in the ureters with minimal surrounding infiltration. Abdominal vasculature: The abdominal aorta is normal in course and caliber noting advanced atherosclerotic calcification. Bowel: There is rectosigmoid fecal impaction and mild to moderate constipation. There is wall thickening of the rectosigmoid with surrounding inflammation and fluid. The appearance favors stercoral proctocolitis. There is no bowel obstruction. The appendix is normal as visualized. Peritoneum: There is trace free fluid around the rectosigmoid colon and the paracolic gutters. No intraperitoneal free air is identified. There is a fat- containing umbilical hernia. Lymphadenopathy: None. Pelvic viscera: There are bilateral fat-containing inguinal hernias. The prostate gland is diminutive versus surgically absent. Penile implants are in place. The bladder is decompressed around a suprapubic catheter. There is bladder wall thickening with surrounding inflammation and foci of intraluminal gas. Skeletal structures: The skeletal structures are osteopenic. There is moderate lumbosacral spondylosis with partial bony fusion at L4 and L5. No lytic or blastic lesions are seen. Advanced arthritic change is seen in the left hip, with moderate to advanced degenerative change on the right. There is degenerative change and partial bony fusion of the sacroiliac joints. Postlaminectomy change is noted in the lower lumbar region. IMPRESSION: 1. There is rectosigmoid fecal impaction with evidence of stercoral proctoc olitis. 2. There is no bowel obstruction. No intraperitoneal free air is seen. 3. There is trace free fluid around the rectosigmoid colon and in the paracolic gutters, likely reactive. 4. Dependent airspace consolidation is seen at both lung bases. Correlate clinically for evidence of pneumonia/aspiration pneumonitis. 5. The distal esophagus is distended and fluid-filled. Note at this may place the patient at risk for aspiration. 6. Bilateral ureteral stents are in place. No calcifications are seen along the course of the stents. 7. There is moderate right and severe left hydronephrosis. 8. The bladder is decompressed around a suprapubic catheter with surrounding infiltration. Correlate with clinical findings and urinalysis for evidence of cystitis. 9. Urothelial thickening is seen within both ureters, and there is gas within the renal collecting systems bilaterally. This could be related to instrumentation/stents. Correlate with clinical findings and urinalysis for evidence of ascending urinary tract infections. 10. Additional findings as above. ACT 112: Negative or not required by law. Electronically signed by: Santy Acuña M.D. 11/04/2021 4:57 PM Discharge Plan Visit Data Chief Complaint: Respiratory Distress ED Provider: Arpan Shrestha Discharge Problem: Multifocal pneumonia, Acute respiratory failure with hypoxia, Septic shock Patient Disposition: Admitted As Inpatient Discharge Instructions Interventions: ED Discharge Assessment Last Done: 11/04/21 18:43
[2021-11-04 15:29] LABS: Basophils # (auto) 0.04 K/uL (0-0.2); Basophils % (auto) 0.2 %; Eosinophils # (auto) 0.02 K/uL (0-0.50); Eosinophils % (auto) 0.1 %; Hematocrit (blood only) 42.1 % (40.1-51.0); Hemoglobin 13.6 g/dl (14.0-18.0); Immature Granulocytes # (auto) 0.71 K/uL (0.00-0.02); Lymphocytes # (auto) 1.41 K/uL (1.2-3.4); Lymphocytes % (auto) 7.9 %; Mean Corpuscular Hemoglobin 30.9 pg (25.0-34.0); Mean Corpuscular Hgb Conc 32.3 g/dL (32.0-36.0); Mean Corpuscular Volume 95.7 fL (80.0-100.0); Mean Platelet Volume 9.7 fL (9.4-12.4); Monocytes # (auto) 0.47 K/uL (0.24-0.82); Monocytes % (auto) 2.6 %; Neutrophils % (auto) 85.2 %; Platelet Count 232 K/uL (130-400); RDW Standard Deviation 51.9 fL (36.4-46.3); White Blood Count 17.85 K/ul (4.8-10.8)
[2021-11-04 15:38] LABS: iSTAT Creatinine 2.1 mg/dl (0.6-1.3); iSTAT Hemoglobin 14.3 g/dl (14.0-18.0); iSTAT Ionized Calcium 1.13 mmol/l (1.12-1.32); iSTAT Potassium 4.4 mmol/L (3.3-5.0)
[2021-11-04] MEDS ORDERED: PIPERACILLIN/TAZOBACTAM 4.5 GM/120 ML BAG IV ONE (15:45)
[2021-11-04 15:49] LABS: Base Excess ABG 0.3 mEq/L (-9-1.8); HCO3 ABG 23 mmol/L (19-24); Oxygen Saturation ABG 99.1 % (90-95); PCO2 ABG 32 mmHg (35-46); PO2 ABG 97 mmHg (80-95); pH ABG 7.47 (7.35-7.45)
[2021-11-04] MEDS ORDERED: SODIUM CHLORIDE 0.9% 500 ML IV ONE (15:54)
--- NOTE | 2021-11-04 15:54 | XRay Report ---
XR chest 1V portable CLINICAL HISTORY: Sepsis TECHNIQUE: Single frontal radiograph of the chest was obtained. Comparison: Comparison is made to chest radiograph 10/08/[address] chest 10/08/2021 FINDINGS: Dual lead pacemaker is seen. Cardiomegaly is noted. A few airspace opacities in the bilateral lungs a re somewhat less conspicuous than in the prior exam. Lungs are underinflated. No evidence of pleural effusion or pneumothorax. IMPRESSION: Underinflated lungs with interval improvement in multifocal airspace opacities which may represent im proving infectious/inflammatory process. Recommend follow-up to resolution. ACT 112: Negative or not required by law. Electronically signed by: Negro Etienne M.D. 11/04/2021 3:52 PM
[2021-11-04 15:56] LABS: Albumin Level 3.3 gm/dl (3.4-5.0); BUN Creatinine Ratio 19.5 (10-20); Bilirubin,Total 1.6 mg/dl (0.2-1.0); Calcium 8.7 mg/dl (8.5-10.1); Creatinine Clr Calc Pharmacy 26.7 ml/min; Est GFR (African American) 31.2 ml/min; Est GFR (Non-African American) 26.9 ml/min; Magnesium 2.6 mg/dl (1.7-2.4); Potassium 4.4 mmol/L (3.5-5.1); Total Protein 6.6 gm/dl (6.0-8.3); Troponin I High Sensitivity 29.3 pg/ml (0-20)
[2021-11-04 16:07] LABS: Allen Test POS (Pos)
[2021-11-04 16:28] LABS: Influenza A virus by PCR Negative (Neg); Influenza B virus by PCR Negative (Neg); RSV by PCR Negative (Neg)
[2021-11-04 16:37] LABS: SARS CoV2 RNA(COVID-19) InHosp POSITIVE (Negative)
[2021-11-04] MEDS ORDERED: SODIUM CHLORIDE 0.9% 1000ML 1,000 ML IV ONE (16:57)
--- NOTE | 2021-11-04 16:59 | CT Scan Report ---
CT SCAN OF THE ABDOMEN AND PELVIS WITHOUT IV CONTRAST CLINICAL HISTORY: Generalized abdominal pain and swelling. COMPARISON STUDY: Abdominal CT dated 07/26/2021. TECHNIQUE: CT scan of the abdomen and pelvis is performed from the lung bases to the proximal femora. Images are reviewed in the axial, sagittal, and coronal planes. IV contrast was not administered for this examination. Note that examination is suboptimal lateral and 90 contrast. A dose lowering techn ique was utilized adhering to the principles of ALARA. CT DOSE: 875.11 mGycm FINDINGS: Lung bases: The heart is top normal in size and without pericardial effusion. Pacemaker leads are not ed. The coronary arteries are densely calcified. Dependent consolidation is seen at both lung bases. No pleural effusion is identified. The distal esophagus is mildly distended and fluid-filled. Liver: The unenhanced liver is normal in size, contour, and attenuation. There is no intrahepatic ty iary ductal dilatation. Gallbladder: Surgically absent noting clips in the gallbladder fossa. Spleen: Normal in size and attenuation. There are calcified splenic granulomas. Pancreas: The unenhanced pancreas is moderately atrophic and grossly unremarkable. Adrenal glands: Unremarkable. Kidneys: The unenhanced kidneys are atrophic. Bilateral vesicoureteral stents are in place. No calcif ications are seen in either ureter along the course of the stents. No calculi are identified in eithe r kidney. There is gas within the renal collecting system bilaterally. There is severe left and moder ate right hydronephrosis. There are 2 left renal cyst which measured 4.4 cm. Urothelial thickening is noted in the ureters with minimal surrounding infiltration. Abdominal vasculature: The abdominal aorta is normal in course and caliber noting advanced atheroscle rotic calcification. Bowel: There is rectosigmoid fecal impaction and mild to moderate constipation. There is wall thicken ing of the rectosigmoid with surrounding inflammation and fluid. The appearance favors stercoral proc tocolitis. There is no bowel obstruction. The appendix is normal as visualized. Peritoneum: There is trace free fluid around the rectosigmoid colon and the paracolic gutters. No int raperitoneal free air is identified. There is a fat-containing umbilical hernia. Lymphadenopathy: None. Pelvic viscera: There are bilateral fat-containing inguinal hernias. The prostate gland is diminutive versus surgically absent. Penile implants are in place. The bladder is decompressed around a suprapu bic catheter. There is bladder wall thickening with surrounding inflammation and foci of intraluminal gas. Skeletal structures: The skeletal structures are osteopenic. There is moderate lumbosacral spondylosi s with partial bony fusion at L4 and L5. No lytic or blastic lesions are seen. Advanced arthritic kiersten nge is seen in the left hip, with moderate to advanced degenerative change on the right. There is deg enerative change and partial bony fusion of the sacroiliac joints. Postlaminectomy change is noted in the lower lumbar region. IMPRESSION: 1. There is rectosigmoid fecal impaction with evidence of stercoral proctocolitis. 2. There is no bowel obstruction. No intraperitoneal free air is seen. 3. There is trace free fluid around the rectosigmoid colon and in the paracolic gutters, likely react emma. 4. Dependent airspace consolidation is seen at both lung bases. Correlate clinically for evidence of pneumonia/aspiration pneumonitis. 5. The distal esophagus is distended and fluid-filled. Note at this may place the patient at risk for aspiration. 6. Bilateral ureteral stents are in place. No calcifications are seen along the course of the stents. 7. There is moderate right and severe left hydronephrosis. 8. The bladder is decompressed around a suprapubic catheter with surrounding infiltration. Correlate with clinical findings and urinalysis for evidence of cystitis. 9. Urothelial thickening is seen within both ureters, and there is gas within the renal collecting sy stems bilaterally. This could be related to instrumentation/stents. Correlate with clinical findings and urinalysis for evidence of ascending urinary tract infections. 10. Additional findings as above. ACT 112: Negative or not required by law. Electronically signed by: Santy Acuña M.D. 11/04/2021 4:57 PM
[2021-11-04] MEDS ORDERED: dexAMETHasone**PF** 10 MG/ML VIAL IV ONE (17:20)
[2021-11-04] MEDS ORDERED: STAT IV Infusion **Titration per Protocol STA ×2 (17:20→23:45)
[2021-11-04] MEDS: NOREPINEPHRINE/D5W 4 MG/250 ML PLCT IV SCH (17:26)
--- NOTE | 2021-11-04 17:42 | History & Physical Report ---
Date of Service November 04, 2021 Assessment & Plan (1) Acute respiratory failure with hypoxia: Plan: Patient has sepsis and acute respiratory failure with hypoxia. Concern for sepsis could be urinary source Given sepsis and low blood pressure pressors were started in the emergency department after volume resuscitation Family does confirm he is a DNR/DNI Patient maintained on BiPAP and try to transition down to none pressure support ventilation such as high flow With his history of COPD we will use hydrocortisone ( also for shock) and albuterol Atrovent (2) Chronic diastolic heart failure: Plan: Patient has a history of combined heart failure. Echocardiogram from September 2021 shows EF of 45-50. With his low blood pressure this time this is being supported by vasopressors and we will avoid his carvedilol at this point in time to try to reinstitute it soon as possible likewise we are holding his amlodipine (3) Catheter-associated urinary tract infection: Plan: Patient is a previous history of a CAUTI his previous history of E. coli, [facility], Enterococcus plus multiple cultures consistent with Monalisa Urine cultures are obtained and patient started on broad-spectrum antibiotics of Zosyn Patient's tamsulosin is on hold (4) Paroxysmal atrial fibrillation: Plan: Patient takes carvedilol plus apixaban. These are on hold at this time if anticoagulation would be required we will use heparin therapy (5) COVID-19: Plan: Patient was COVID-positive September 19. He remains COVID-positive today rechecking infection control whether he needs to be in respiratory isolation at this time (6) CAD (coronary artery disease): Plan: Patient on the above listed carvedilol and isosorbide these are currently on hol d (7) Dementia: Plan: Dementia depression the patient takes Memantine, donepezil plus bupropion's are currently on hold with a severely ill state Plan Patient typically is on Synthroid 112 mcg, last checked in September was replete History of Present Illness Primary Care Provider: Celina Saunders DO 81-year-old male who was discharged in our facility 10/12/2021 to transitional [facility] ed in [place] after COVID-pneumonia resents by EMS with acute hypoxic respiratory failure. Patient has a background history of COPD and also combined heart failure. In the emergency department he is hypotensive despite volume resuscitation. He is breathing with BiPAP. Initial blood gas showed him to be with a respiratory alkalosis. He has maybe mild bilateral lower lobe infiltrates however his COVID-positive test was September 19 and then is unclear whether these are residual. Patient has a history of catheter associated urinary tract infections at the cc of suprapubic catheter) and was seen by urology on the he is also known to have chronic ureteral stents in place. Patient is with a leukocytosis, lactic acid of 3.6 acute on chronic kidney disease stage III elevation of transaminases which could be from shock liver from his hypotension Allergies Allergy/AdvReac Type Severity Reaction Status Date / Time captopril Allergy Severe Anaphylaxis Verified 11/04/21 18:06 Iodinated Contrast Media Allergy Severe Anaphylaxis Verified 11/04/21 18:06 morphine Allergy Severe Anaphylaxis Verified 11/04/21 18:06 oxaprozin Allergy Severe Anaphylaxis Verified 11/04/21 18:06 torsemide Allergy Severe Anaphylaxis Verified 11/04/21 18:06 hydrocodone Allergy Mild Rash Verified 11/04/21 18:06 Home Medications Medication Instructions Recorded Confirmed Type acetaminophen 325 mg tablet 650 mg PO Q4H PRN pain #30 tabs 08/14/19 11/04/21 Rx folic acid 1 mg tablet 1 mg PO QAM #90 tabs 10/04/19 11/04/21 Rx albuterol sulfate 90 mcg/actuation 2 puff inhalation Q6H PRN 07/09/20 11/04/21 Rx aerosol inhaler (Ventolin HFA) cough/wheeze/shortness of breath #1 inhaler cyanocobalamin (vitamin B-12) 1,000 mcg PO QAM 07/16/20 11/04/21 History 1,000 mcg tablet ferrous sulfate 325 mg (65 mg 325 mg PO QAM 07/16/20 11/04/21 History iron) tablet,delayed release polyethylene glycol 3350 17 gram 17 g PO BID PRN Constipation 07/16/20 11/04/21 History oral powder packet (Miralax) ascorbic acid (vitamin C) 500 mg 500 mg PO QAM 10/22/20 11/04/21 History tablet (Vitamin C) docusate sodium 100 mg capsule 100 mg PO BID PRN Constipation 10/22/20 11/04/21 History (Stool Softener) vitamin E 268 mg (400 unit) capsule 400 unit PO HS 10/22/20 11/04/21 History albuterol sulfate 2.5 mg/3 mL 2.5 mg (3 mL) inhalation QID PRN 04/16/21 11/04/21 Rx (0.083 %) solution for nebulization shortness of breath or wheezing #75 mL isosorbide mononitrate 30 mg 30 mg PO QAM #90 tabs 05/22/21 11/04/21 Rx tablet,extended release 24 hr nystatin 100,000 unit/gram topical 1 applic topical UD PRN Skin 05/22/21 2 History cream Irritation gabapentin 300 mg capsule 300 mg PO HS #90 caps 06/14/21 11/04/21 Rx ipratropium 0.5 mg-albuterol 3 mg 3 ml inhalation Q6H PRN wheezing 06/20/21 11/04/21 Rx (2.5 mg base)/3 mL nebulization #90 mL soln levothyroxine 112 mcg tablet 112 mcg PO HS #90 tabs 07/03/21 11/04/21 Rx (Synthroid) bethanechol chloride 50 mg tablet 50 mg PO QID #360 tabs 07/09/21 11/04/21 Rx bupropion HCl 100 mg tablet,12 hr 100 mg PO BID #60 ea 08/09/21 11/04/21 Rx sustained-release apixaban 2.5 mg tablet (Eliquis) 2.5 mg PO BID #180 tabs 08/13/21 11/04/21 Rx tamsulosin 0.4 mg capsule 0.4 mg PO HS #30 caps 08/22/21 11/04/21 Rx tramadol 50 mg tablet 50 mg PO TID PRN Pain #30 tabs 09/03/21 11/04/21 Rx memantine 10 mg tablet (Namenda) 10 mg PO BID #180 tabs 09/09/21 11/04/21 Rx benzonatate 100 mg capsule 100 mg PO TID PRN cough #30 caps 09/23/21 11/04/21 Rx donepezil 10 mg tablet 10 mg PO HS #90 tabs 09/23/21 11/04/21 Rx calcium carbonate 500 mg-vitamin 1 tab PO DAILY 09/29/21 11/04/21 History D3 5 mcg (200 unit) tablet carvedilol 3.125 mg tablet 3.125 mg PO BIDWMEAL 09/29/21 11/04/21 History famotidine 40 mg tablet (Pepcid) 40 mg PO DAILYBB 09/29/21 11/04/21 History amlodipine 5 mg tablet (Norvasc) 5 mg PO QAM #30 tabs 10/12/21 11/04/21 Rx dexamethasone 6 mg tablet 6 mg PO DAILY 11/04/21 11/04/21 History simvastatin 20 mg tablet 20 mg PO DAILY 11/04/21 11/04/21 History Past Med/Surg History Medical History Anxiety and depression Aortic stenosis CAD (coronary artery disease) Chronic diastolic heart failure Chronic pain COPD (chronic obstructive pulmonary disease) COPD with emphysema Dementia Dyslipidemia History of kidney stones History of CA (myocardial infarction) History of recent hospitalization Hypertension Hypothyroidism Iron deficiency anemia Nocturnal hypoxia Pacemaker Paroxysmal atrial fibrillation Recurrent UTI Secondary hyperparathyroidism of renal origin Sleep apnea Stage 3b chronic kidney disease Suprapubic catheter Surgical History H/O total knee replacement History of back surgery History of cardiac cath History of carpal tunnel release of both wrists History of cataract surgery History of colonoscopy History of lithotripsy History of lumbar fusion History of prostate surgery History of thyroidectomy History of tooth extraction S/P cystoscopy with ureteral stent placement S/P TURP S/P ureteral stent placement Family History Father Diabetes Mother Coronary heart disease Hypertension Brother Seizure Other No family history of adverse response to anesthesia Denies family history of Ovarian cancer Prostate cancer Myocardial infarction Breast cancer Colorectal cancer Social History Smoking Status: Unknown if ever smoked Tobacco Type: Cigarettes Age Started Using Tobacco: 15; Age Quit Using Tobacco: 59; packs per day: 2; Second Hand Exposure: No; Hx Alcohol Use: No Hx Substance Use: No Preferred Language: Ethiopian Communication Ability: Effective Visual Impairment: No Limitations Hearing Ability: Hard of Hearing 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 Required: No Beliefs That Will Affect Care: None marital status: Current Living Situation: Family Current Living Situation Comment: spouse and daughters current occupational status: retired How many Children do You have: 3 Feels Safe at Home: Yes Childhood Exposure to Second-Hand Smoke: No caffeine: Yes (Coffee 3 per day.) during the past year weight has: remained stable Dental Care, Regularly: No Physical Activity Frequency: Does not Exercise Seatbelt Use: always Sunscreen Use: No Assistive Devices: Oxygen - at Night, Walker and Wheelchair Review of Systems Review of Systems: moderate to severe distress and fatigue no headache, no visual changes no speech or swallowing issues no chest pain, pressure or palpitations no shortness of breath, cough or wheezes abdominal pain, distension , no nausea or vomiting, constipation dark urine output no focal joint pain or swelling no back pain, CVA tenderness or radicular pain no bruising, bleeding or rashes no focal signs of weakness or numbness or altered sensation no complaints of anxiety or depression.. Physical Exam 2 Physical Exam: The patient appeared well nourished and normally developed. Vital signs as documented. Head exam is normocephalic atraumatic Neck is without JVD, thyromegaly, or carotid bruits. Lungs are coarse bilaterally Cardiac exam, Rhythm is regular.. No murmurs, rubs or gallops. Abdominal exam reveals hypoactive bowel sounds, distented tympanitic and painful Extremities are trace edematous and both pedal pulses are present Neurologic exam is alert and oriented x2, he can spontaneously move all extremities Results & Data Results & Data ([facility]) Vital Signs (Past 12 Hours) Vital Signs Temp Pulse Resp BP BP Pulse Ox O2 Del Method 11/04/21 16:59 79/42 L 11/04/21 15:10 56 L 30 H 97 11/04/21 16:04 95.4 F L 11/04/21 15:16 91 BiPAP 11/04/21 15:08 53 L 23 102/59 L 89 L BiPAP FiO2 11/04/21 16:59 11/04/21 15:10 90 11/04/21 16:04 11/04/21 15:16 11/04/21 15:08 PG Care Time/CCT Total # of Minutes Spent Total Time Spent with Patient: Total time spent is greater than 50% in coordination of care (as documented) at patient's floor/unit and/or counseling patient: Coding Level of Care Code 70914 Initial Inpt Care Lvl 3 Diagnoses Acute respiratory failure with hypoxia J96.01 Chronic diastolic heart failure I50.32 Catheter-associated urinary tract infection T83.511A; N39.0 Paroxysmal atrial fibrillation I48.0 COVID-19 U07.1 CAD (coronary artery disease) I25.10 Dementia F03.90
[2021-11-04] MEDS ORDERED: HYDROCORTISONE SOD SUCCINATE 100 MG/2 ML VIAL IV STA (17:49)
[2021-11-04 19:09] LABS: Appearance Urine Turbid (Clear); Bilirubin Urine Negative (Negative); Blood Urine 3+ (Negative); Color Urine Red; Glucose Urine UA Negative (Negative); Ketones Urine Negative (Negative); Leukocyte Esterase Urine 3+ (Negative); Nitrite Urine Negative (Negative); Protein Urine 3+ (Negative); Urobilinogen Urine Negative (Negative)
[2021-11-04 19:26] LABS: Epithelial Cell Urine 0-5 /lpf (0-5); RBC Urine >30 /hpf (0-4); WBC Urine >30 /hpf (0-5)
[2021-11-04 19:30] LABS: Bacteria Urine Negative (Negative)
[2021-11-04] MEDS ORDERED: CEFEPIME 2,000 MG in SYRINGE 0 ML IV SCH (20:15)
[2021-11-04] MEDS ORDERED: ICU PROTOCOL FOR HYPERGLYCEMIA PRN (20:34)
[2021-11-04] MEDS ORDERED: bisacodyL 10 MG SUPP PR ONE (21:00)
[2021-11-04] MEDS: ALBUT/IPRATROP 3MG/0.5MG NEB 3 ML VIAL INH SCH (21:03)
[2021-11-04] MEDS: metroNIDAZOLE 500 MG/100 ML BAG IV SCH (21:24)
[2021-11-04] MEDS: CEFEPIME 1,000 MG in SYRINGE 0 ML IV SCH (21:24)
[2021-11-04] MEDS: NORMOSOL-R 1,000 ML IV SCH (21:30)
[2021-11-04] MEDS: LEVOTHYROXINE SODIUM 112 MCG TABLET PO SCH (21:35)
[2021-11-04] MEDS: HEPARIN SOD 5,000 UNIT/0.5 ML VIAL SQ SCH ×2 (21:35→21:37)
[2021-11-04] MEDS: SENNA 8.6 MG TAB PO SCH (21:36)
--- NOTE | 2021-11-04 21:45 | Critical Care Consultation ---
Date of Consultation November 04, 2021 Assessment & Plan (1) Septic shock: Reason Critically Ill: 81-year-old male with extensive past medical history presents to the ICU with acute hypoxic respiratory failure and hypotension requiring vasopressor support. CT abdomen pelvis positive for bilateral hydronephrosis and patient with bilateral ureteral stents Neuro - Dementiacontinue donepezil when appropriate Cardiac - Shocklikely septic with multiple potential sources. -Last echo 09/30 with EF 45 to 50%, severe -Currently on Levophed, maintain maps greater than 65 -Careful with fluid bolus given CHF -Patient given dose of glucose steroids in the ED -Plan for A-line, central line insertion Proximal atrial fibrillationhold antihypertensives and apixaban at this time Respiratory - Acute hypoxic respiratory failurelikely secondary to aspiration pneumonitis/pneumonia. Cannot rule out component of CHF given diastolic heart failure and severe . -We will hold on diuresis at the time given renal function and hypotension -PE unlikely given patient anticoagulated on apixaban -Empiric antibiotic coverage -Switch to HFNC in favor of BiPAP given vomiting and risk for further aspiration. Plan to intubate in OR for ureteral stent exchange per anesthesia will obtain ABG and chest x-ray -Continuous pulse ox monitoring GI - Bowel obstruction?Patient without clear bowel obstruction on CT abdomen and pelvis however he did experiencing vomiting and aspiration episode. NG tube ins erted to low intermittent suction. Rectosigmoid impaction on CT and underwent manual disimpaction at the bedside. Follow-up with [facility] in the morning. Will start on bowel regimen PPI RENAL/LYTES - CKD stage IIIcreatinine appears to be at baseline. Patient does have turbid urine and to undergo bilateral ureteral stent replacement. -No severe electrolyte abnormalities. Continue to monitor creatinine with routine BMPs -Continue IV fluid resuscitation Normosol at 125 - Hydronephrosisundergoing bilateral ureteral stent exchange per urology. Patient does have suprapubic cath and will monitor strict I's and O's ENDO - ICU hyperglycemic protocol Hypothyroidcontinue Synthroid HEME - H&H stable, monitor routine CBCs ID - Sepsisurinary source versus pulmonary. Patient with aspiration and urinalysis suggestive of UTI -Blood culture and urine culture pending. We will attempt to obtain sputum culture as well once intubated -COVID-19 PCR positive, patient was also positive on 09/18/2021. Discontinue precautions -Influenza negative -Nasal MRSA negative -CT abdomen and pelvis shows free fluid around the rectosigmoid colon and in the paracolic gutters which is likely reactive along with rectosigmoid fecal impaction with evidence of stercoral proctocolitis. Flagyl added for intra- abdominal coverage -Continue cefepime and Flagyl LINES/IV ACCESS - Currently receiving peripheral Levophed with plan to insert central line and A- line. DVT PROPHYLAXIS - SCDs, holding apixaban for procedure I have personally spent 70 minutes of critical care time in the direct yaneth gement of this patient. This is a life/limb threatening event. This includes time spent evaluating patient, direct bedside care, chart review, placing orders, interpretation of diagnostic studies, discussion with consultants, patient, and family members, as well as other required patient management activities. This time is exclusive of all separately billable procedures, and teaching time and separate from and in addition to any other critical care service time. Thank you for allowing us to participate in the care of this patient. Please refer to my attending physician's documentation for any further recommendations. (2) Bowel obstruction: (3) Aspiration pneumonia: (4) Hydronephrosis: (5) Emphysematous pyelitis: (6) Aortic stenosis: (7) Acute respiratory failure with hypoxia: (8) Chronic suprapubic catheter: (9) Chronic diastolic heart failure: (10) Hypothyroidism: (11) History of OR (myocardial infarction): (12) Dementia: (13) CAD (coronary artery disease): (14) AICD (automatic cardioverter/defibrillator) present: (15) Paroxysmal atrial fibrillation: (16) Stage 3b chronic kidney disease: History of Present Illness Attending Physician: Ashvin Bloom MD History of Present Illness Patient is a 81-year-old male with past medical history significant for diastolic heart failure, COPD, hypothyroid, hydronephrosis, HLD, anxiety and depression, dementia, CAD, PAF. Patient presented to the emergency department with hypotension and hypoxic. He underwent fluid resuscitation but remained hypotensive and was placed on Levophed. He was started on broad-spectrum antibiotics and IV steroids. He arrived to the ICU on BiPAP but had an episode of vomiting and likely aspirated and was transitioned to high flow nasal cannula. NG tube inserted and placed to low wall suction as well. CT abdomen and pelvis shows moderate and severe hydronephrosis. Patient has history of bilateral ureteral stents and is followed with urology. Urology consulted and plan for patient to undergo stent exchange. Due to hypoxia we will need elective intubation prior to procedure. Also noted to have rectosigmoid fecal impaction with evidence of stercoral proctocolitis. He did undergo manual disimpaction. Patient now admitted to ICU for further management this time with plans to intubate and undergo stent exchange this evening. On arrival to the ICU the patient is alert but confused. He currently denies any headache, dizziness, fevers, sore throat or congestion, cough, shortness of breath, chest pain or palpitations. He did recently have an episode of nausea and vomiting. He also has generalized abdominal pain which is tender to palpat ion. Urine appears to be turbid and red in the catheter. Allergies Allergy/AdvReac Type Severity Reaction Status Date / Time captopril Allergy Severe Anaphylaxis Verified 11/04/21 18:06 Iodinated Contrast Media Allergy Severe Anaphylaxis Verified 11/04/21 18:06 morphine Allergy Severe Anaphylaxis Verified 11/04/21 18:06 oxaprozin Allergy Severe Anaphylaxis Verified 11/04/21 18:06 torsemide Allergy Severe Anaphylaxis Verified 11/04/21 18:06 hydrocodone Allergy Mild Rash Verified 11/04/21 18:06 Home Medications Medication Instructions Recorded Confirmed Type acetaminophen 325 mg tablet 650 mg PO Q4H PRN pain #30 tabs 08/14/19 11/04/21 Rx folic acid 1 mg tablet 1 mg PO QAM #90 tabs 10/04/19 11/04/21 Rx albuterol sulfate 90 mcg/actuation 2 puff inhalation Q6H PRN 07/09/20 11/04/21 Rx aerosol inhaler (Ventolin HFA) cough/wheeze/shortness of breath #1 inhaler cyanocobalamin (vitamin B-12) 1,000 mcg PO QAM 07/16/20 11/04/21 History 1,000 mcg tablet ferrous sulfate 325 mg (65 mg 325 mg PO QAM 07/16/20 11/04/21 History iron) tablet,delayed release polyethylene glycol 3350 17 gram 17 g PO BID PRN Constipation 07/16/20 11/04/21 History oral powder packet (Miralax) ascorbic acid (vitamin C) 500 mg 500 mg PO QAM 10/22/20 11/04/21 History tablet (Vitamin C) docusate sodium 100 mg capsule 100 mg PO BID PRN Constipation 10/22/20 11/04/21 History (Stool Softener) vitamin E 268 mg (400 unit) capsule 400 unit PO HS 10/22/20 11/04/21 History albuterol sulfate 2.5 mg/3 mL 2.5 mg (3 mL) inhalation QID PRN 04/16/21 11/04/21 Rx (0.083 %) solution for nebulization shortness of breath or wheezing #75 mL isosorbide mononitrate 30 mg 30 mg PO QAM #90 tabs 05/22/21 11/04/21 Rx tablet,extended release 24 hr nystatin 100,000 unit/gram topical 1 applic topical UD PRN Skin 05/22/2111/04 History cream Irritation gabapentin 300 mg capsule 300 mg PO HS #90 caps 06/14/21 11/04/21 Rx ipratropium 0.5 mg-albuterol 3 mg 3 ml inhalation Q6H PRN wheezing 06/20/21 11/04/21 Rx (2.5 mg base)/3 mL nebulization #90 mL soln levothyroxine 112 mcg tablet 112 mcg PO HS #90 tabs 07/03/21 11/04/21 Rx (Synthroid) bethanechol chloride 50 mg tablet 50 mg PO QID #360 tabs 07/09/21 11/04/21 Rx bupropion HCl 100 mg tablet,12 hr 100 mg PO BID #60 ea 08/09/21 11/04/21 Rx sustained-release apixaban 2.5 mg tablet (Eliquis) 2.5 mg PO BID #180 tabs 08/13/21 11/04/21 Rx tamsulosin 0.4 mg capsule 0.4 mg PO HS #30 caps 08/22/21 11/04/21 Rx tramadol 50 mg tablet 50 mg PO TID PRN Pain #30 tabs 09/03/21 11/04/21 Rx memantine 10 mg tablet (Namenda) 10 mg PO BID #180 tabs 09/09/21 11/04/21 Rx benzonatate 100 mg capsule 100 mg PO TID PRN cough #30 caps 09/23/21 11/04/21 Rx donepezil 10 mg tablet 10 mg PO HS #90 tabs 09/23/21 11/04/21 Rx calcium carbonate 500 mg-vitamin 1 tab PO DAILY 09/29/21 11/04/21 History D3 5 mcg (200 unit) tablet carvedilol 3.125 mg tablet 3.125 mg PO BIDWMEAL 09/29/21 11/04/21 History famotidine 40 mg tablet (Pepcid) 40 mg PO DAILYBB 09/29/21 11/04/21 History amlodipine 5 mg tablet (Norvasc) 5 mg PO QAM #30 tabs 10/12/21 11/04/21 Rx dexamethasone 6 mg tablet 6 mg PO DAILY 11/04/21 11/04/21 History simvastatin 20 mg tablet 20 mg PO DAILY 11/04/21 11/04/21 History Patient History Medical History Anxiety and depression Aortic stenosis CAD (coronary artery disease) Chronic diastolic heart failure Chronic pain COPD (chronic obstructive pulmonary disease) COPD with emphysema Dementia Dyslipidemia History of kidney stones History of OR (myocardial infarction) History of recent hospitalization Hypertension Hypothyroidism Iron deficiency anemia Nocturnal hypoxia Pacemaker Paroxysmal atrial fibrillation Recurrent UTI Secondary hyperparathyroidism of renal origin Sleep apnea Stage 3b chronic kidney disease Suprapubic catheter Surgical History H/O total knee replacement History of back surgery History of cardiac cath History of carpal tunnel release of both wrists History of cataract surgery History of colonoscopy History of lithotripsy History of lumbar fusion History of prostate surgery History of thyroidectomy History of tooth extraction S/P cystoscopy with ureteral stent placement S/P TURP S/P ureteral stent placement Family History Father Diabetes Mother Coronary heart disease Hypertension Brother Seizure Other No family history of adverse response to anesthesia Denies family history of Ovarian cancer Prostate cancer Myocardial infarction Breast cancer Colorectal cancer Social History Smoking Status: Never smoker Tobacco Type: Cigarettes Age Started Using Tobacco: 15; Age Quit Using Tobacco: 59; packs per day: 2; Second Hand Exposure: No; Do You Dip or Chew Tobacco: No; Tobacco Cessation Education Requested by Patient: No Hx Alcohol Use: No Hx Substance Use: No Preferred Language: Greenlandic Communication Ability: Effective Visual Impairment: No Limitations Hearing Ability: Hard of Hearing Hot Dog Vender Required: No Beliefs That Will Affect Care: None marital status: Current Living Situation: Spouse and Family Current Living Situation Comment: spouse and daughters current occupational status: retired How many Children do You have: 3 Other Information That Helps Us Care for You: No Feels Safe at Home: Yes Safety Concerns: Feels Safe At This Time Childhood Exposure to Second-Hand Smoke: No caffeine: Yes (Coffee 3 per day.) during the past year weight has: remained stable Dental Care, Regularly: No Physical Activity Frequency: Does not Exercise Seatbelt Use: always Sunscreen Use: No Assistive Devices: Walker and Wheelchair Review of Systems Review of Systems: All systems reviewed & are unremarkable except as noted in HPI & below Physical Exam Constitutional: cooperative and comfortable; no acute distress Eyes: PERRL, conjunctivae normal, anicteric sclerae ENMT: external ear and nose normal, oropharynx normal Neck: trachea midline, no thyromegaly Respiratory: No respiratory distress or labored breathing. Patient does have rhonchi auscultated bilaterally in bases. No wheezing. Symmetrical chest wall movement Cardiovascular: RRR, no murmur, no edema Heart Sounds: normal S1 and normal S2 Vessels: no JVD Extremities: no edema Gastrointestinal (Abdomen): Normal bowel sounds, abdomen soft but rounded mildly distended and tender to palpation. Musculoskeletal: no cyanosis or clubbing, extremities motor strength 5/5 Skin: no rashes, warm and dry Neurologic: PERRL, EOMI, accommodation nl, no face palsy, no dysarthria Psychiatric: Orientation: oriented to person and cooperative Results & Data Results & Data ([facility]) Vital Signs (Past 12 Hours) Vital Signs Temp Pulse Resp BP BP Pulse Ox O2 Del Method 11/04/21 20:38 20 95 High Flow Nasal Cannula 11/04/21 19:45 75 L Oxymask, High Flow Nasal Cannula 11/04/21 18:43 BiPAP 11/04/21 18:40 53 L 22 95 BiPAP 11/04/21 18:40 87/54 L BiPAP 11/04/21 18:32 BiPAP 11/04/21 18:32 59 L 19 97 BiPAP 11/04/21 18:30 53 L 22 94 BiPAP 11/04/21 18:20 56 L 22 95 BiPAP 11/04/21 18:20 73/54 L BiPAP 11/04/21 18:12 63/40 L BiPAP 11/04/21 18:12 21 95 BiPAP 11/04/21 18:10 75 22 96 BiPAP 11/04/21 18:02 59 L 19 96 BiPAP 11/04/21 18:02 84/51 L BiPAP 11/04/21 18:00 66 22 95 BiPAP 11/04/21 17:50 60 20 98 BiPAP 11/04/21 17:50 94/55 L BiPAP 11/04/21 17:41 89/73 L BiPAP 11/04/21 17:41 59 L 22 98 BiPAP 11/04/21 17:40 57 L 22 97 BiPAP 11/04/21 17:35 53 L 20 98 BiPAP 11/04/21 17:35 118/66 BiPAP 11/04/21 17:30 53 L 22 99 BiPAP 11/04/21 17:20 59 L 23 100 BiPAP 11/04/21 17:10 53 L 23 97 BiPAP 11/04/21 17:00 60 21 97 BiPAP 11/04/21 16:50 53 L 20 96 BiPAP 11/04/21 16:40 60 23 95 BiPAP 11/04/21 16:30 85 19 BiPAP 11/04/21 16:10 53 L 24 98 BiPAP 11/04/21 16:00 53 L 20 96 BiPAP 11/04/21 15:50 74 26 H 95 BiPAP 11/04/21 15:40 53 L 26 H 97 BiPAP 11/04/21 15:30 58 L 28 H 97 BiPAP 11/04/21 15:20 53 L 25 H 88 L BiPAP 11/04/21 15:19 56 L 25 H 87 L BiPAP 11/04/21 16:59 79/42 L 11/04/21 15:10 56 L 30 H 97 11/04/21 16:04 35.2 C L 11/04/21 15:16 91 BiPAP 11/04/21 15:08 53 L 23 102/59 L 89 L BiPAP O2 Flow Rate FiO2 11/04/21 20:38 40 60 11/04/21 19:45 60 100 11/04/21 18:43 90 11/04/21 18:40 11/04/21 18:40 11/04/21 18:32 11/04/21 18:32 11/04/21 18:30 11/04/21 18:20 11/04/21 18:20 11/04/21 18:12 11/04/21 18:12 11/04/21 18:10 11/04/21 18:02 11/04/21 18:02 11/04/21 18:00 11/04/21 17:50 11/04/21 17:50 11/04/21 17:41 11/04/21 17:41 11/04/21 17:40 11/04/21 17:35 11/04/21 17:35 11/04/21 17:30 11/04/21 17:20 11/04/21 17:10 11/04/21 17:00 11/04/21 16:50 11/04/21 16:40 11/04/21 16:30 11/04/21 16:10 11/04/21 16:00 11/04/21 15:50 11/04/21 15:40 11/04/21 15:30 11/04/21 15:20 11/04/21 15:19 11/04/21 16:59 11/04/21 15:10 90 11/04/21 16:04 11/04/21 15:16 11/04/21 15:08 Coding Level of Care Code Critical Care 1st 30-74 mins Diagnoses Septic shock A41.9; R65.21 Bowel obstruction K56.609 Aspiration pneumonia J69.0 Hydronephrosis N13.30 Emphysematous pyelitis N12 Aortic stenosis I35.0 Acute respiratory failure with hypoxia J96.01 Chronic suprapubic catheter Z93.59 Chronic diastolic heart failure I50.32 Hypothyroidism E03.9 Hypothyroidism type: acquired History of OR (myocardial infarction) I25.2 Dementia F03.90 CAD (coronary artery disease) I25.10 AICD (automatic cardioverter/defibrillator) present Z95.810 Paroxysmal atrial fibrillation I48.0 Stage 3b chronic kidney disease N18.32 (1) Hypothyroidism Hypothyroidism type: acquired Qualified Code(s): E03.9 - Hypothyroidism, unspecified
--- NOTE | 2021-11-04 21:51 | Anesthesiology Consultation ---
Date of Service November 04, 2021 Assessment & Plan Consults Requested none ASA [id number] Proposed Anesthesia Anesthesia Type: General Risk / Benefits Reviewed With: PT / POA / Parent / Guardian, Accepts Plan and Informed Consent Obtained Additional Notes I had approximately 15 to 20-minute discussion with the this evening about her 's critical nature of illness being on norepinephrine and having vomited stool on arrival to the ICU while on BiPAP. He remains on high flow O2 after having COVID 19 first initially turning positive on 09/19/2021 and having likely aspiration pneumonia. We discussed that his DNR/DNI would be suspended during the operative course and in the immediate postop recovery period. She acknowledges and agrees. In addition, she understands that I am unlikely able to extubate him at the end of the procedure and thus may require prolonged postoperative ventilation. She acknowledges and accepts this. We discussed that given his severe aortic stenosis and other comorbidities he may sustain cardiac arrest during this procedure. She acknowledges and accepts this. We discussed that comfort care is an option and she states he would want to have the procedure. She signed consent for general anesthesia and invasive david toring excepting all risks and outcomes. History Height/Weight Height: 5 ft 8 in Weight: 83.4 kg Allergies Allergy/AdvReac Type Severity Reaction Status Date / Time captopril Allergy Severe Anaphylaxis Verified 11/04/21 18:06 Iodinated Contrast Media Allergy Severe Anaphylaxis Verified 11/04/21 18:06 morphine Allergy Severe Anaphylaxis Verified 11/04/21 18:06 oxaprozin Allergy Severe Anaphylaxis Verified 11/04/21 18:06 torsemide Allergy Severe Anaphylaxis Verified 11/04/21 18:06 hydrocodone Allergy Mild Rash Verified 11/04/21 18:06 Medications Home Medications Medication Instructions Recorded Confirmed Last Taken acetaminophen 325 mg tablet 650 mg PO Q4H PRN pain #30 tabs 08/14/19 11/04/21 Unknown folic acid 1 mg tablet 1 mg PO QAM #90 tabs 10/04/19 11/04/21 08/21/21 17:45 albuterol sulfate 90 mcg/actuation 2 puff inhalation Q6H PRN 07/09/20 11/04/21 07/20/20 aerosol inhaler (Ventolin HFA) cough/wheeze/shortness of breath #1 inhaler cyanocobalamin (vitamin B-12) 1,000 mcg PO QAM 07/16/20 11/04/21 08/21/21 17:15 1,000 mcg tablet ferrous sulfate 325 mg (65 mg 325 mg PO QAM 07/16/20 11/04/21 08/21/21 17:45 iron) tablet,delayed release polyethylene glycol 3350 17 gram 17 g PO BID PRN Constipation 07/16/20 11/04/21 Unknown oral powder packet (Miralax) ascorbic acid (vitamin C) 500 mg 500 mg PO QAM 10/22/20 11/04/21 08/21/21 17:40 tablet (Vitamin C) docusate sodium 100 mg capsule 100 mg PO BID PRN Constipation 10/22/20 11/04/21 08/21/21 20:45 (Stool Softener) vitamin E 268 mg (400 unit) capsule 400 unit PO HS 10/22/20 11/04/21 08/21/21 20:45 albuterol sulfate 2.5 mg/3 mL 2.5 mg (3 mL) inhalation QID PRN 04/16/21 11/04/21 Unknown (0.083 %) solution for nebulization shortness of breath or wheezing #75 mL isosorbide mononitrate 30 mg 30 mg PO QAM #90 tabs 05/22/21 11/04/21 11/04/21 09:00 tablet,extended release 24 hr nystatin 100,000 unit/gram topical 1 applic topical UD PRN Skin 05/22/21 11/04/21 Unknown cream Irritation gabapentin 300 mg capsule 300 mg PO HS #90 caps 06/14/21 11/04/21 08/21/21 20:45 ipratropium 0.5 mg-albuterol 3 mg 3 ml inhalation Q6H PRN wheezing 06/20/21 11/04/21 Unknown (2.5 mg base)/3 mL nebulization #90 mL soln levothyroxine 112 mcg tablet 112 mcg PO HS #90 tabs 07/03/21 11/04/21 11/04/21 09:00 (Synthroid) bethanechol chloride 50 mg tablet 50 mg PO QID #360 tabs 07/09/21 11/04/21 11/04/21 09:00 bupropion HCl 100 mg tablet,12 hr 100 mg PO BID #60 ea 07/03/0211/04/21 11/04/21 09:00 sustained-release apixaban 2.5 mg tablet (Eliquis) 2.5 mg PO BID #180 tabs 08/13/21 11/04/21 11/04/21 09:00 tamsulosin 0.4 mg capsule 0.4 mg PO HS #30 caps 08/22/21 11/04/21 Unknown tramadol 50 mg tablet 50 mg PO TID PRN Pain #30 tabs 09/03/21 11/04/21 Unknown memantine 10 mg tablet (Namenda) 10 mg PO BID #180 tabs 09/09/21 11/04/21 11/04/21 09:00 benzonatate 100 mg capsule 100 mg PO TID PRN cough #30 caps 09/23/21 11/04/21 Unknown donepezil 10 mg tablet 10 mg PO HS #90 tabs 09/23/21 11/04/21 Unknown calcium carbonate 500 mg-vitamin 1 tab PO DAILY 09/29/21 11/04/21 Unknown D3 5 mcg (200 unit) tablet carvedilol 3.125 mg tablet 3.125 mg PO BIDWMEAL 09/29/21 11/04/21 11/04/21 09:00 famotidine 40 mg tablet (Pepcid) 40 mg PO DAILYBB 09/29/21 11/04/21 11/04/21 09:00 amlodipine 5 mg tablet (Norvasc) 5 mg PO QAM #30 tabs 10/12/21 11/04/21 11/04/21 09:00 dexamethasone 6 mg tablet 6 mg PO DAILY 11/04/21 11/04/21 11/04/21 09:00 simvastatin 20 mg tablet 20 mg PO DAILY 11/04/21 11/04/21 Unknown Active Medications Generic Name Dose Route Start Last Admin Trade Name Ulisesq PRN Reason Stop Dose Admin Albuterol 3 ml 11/04/21 20:34 11/04/21 21:03 Albut/Ipratrop 3mg/0.5mg Neb 3 Ml Vial INH 12/04/21 20:33 3 ml QIDR FLEX Administration Heparin Sodium (Porcine) 5,000 units 11/04/21 21:00 11/04/21 21:37 Heparin Sod 5,000 Unit/0.5 Ml Vial SQ 12/04/21 20:59 Not Given Q12 FLEX Norepinephrine Bitartrate 4 mg in 250 mls @ 15.638 mls/hr 11/04/21 17:30 11/04/21 18:41 Levophed/D5w IV 12/04/21 17:29 0.09 mcg/kg/min .Q16H FLEX 28.1 mls/hr Titration Protocol 0.05 MCG/KG/MIN Metronidazole 500 mg in 100 mls @ 100 mls/hr 11/04/21 20:30 11/04/21 21:24 Flagyl IV 11/14/21 20:29 100 mls/hr Q8H FLEX Administration Protocol Cefepime HCl 1,000 mg/ Syringe 10 mls @ 5 mls/min 11/04/21 20:30 11/04/21 21:24 IV 11/14/21 20:29 5 mls/min Q12H FLEX Administration Protocol Parenteral Electrolytes 1,000 mls @ 100 mls/hr 11/04/21 20:34 11/04/21 21:30 Normosol-R IV 12/04/21 20:33 100 mls/hr .Q10H FLEX Administration Levothyroxine Sodium 112 mcg 11/04/21 21:00 11/04/21 21:35 Levothyroxine Sodium 112 Mcg Tablet PO 12/04/21 20:59 Not Given HS FLEX Sennosides 17.2 mg 11/04/21 21:00 11/04/21 21:36 Senna 8.6 Mg Tab PO 12/04/21 20:59 Not Given HS FLEX NPO Date Last Intake of Fluids: 11/04/21 Time Last Intake of Fluids: 15:11 Date Last Intake of Solids: 11/04/21 Time Last Intake of Solids: 15:11 Last Intake of Solids Comment: patient vomiting stool on arrival to the ICU today, full stomach Past Medical History Medical History (Updated 11/04/21 @ 21:40 by Paula Valdez DO) Anxiety and depression Aortic stenosis Severe per 09/30/21 ECHO UZMA 0.8cm CAD (coronary artery disease) Multiple cardiac stents (x4 total)- most recent 3+ years ago 1997- LCx- stent Most recent cath 2013 per cardio records "LAD okay, LCX OM 30, RCA ok, NL EF" Chronic diastolic heart failure Chronic pain 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 On donepezil and memantine, follows with neurology Dyslipidemia History of kidney stones History of OK (myocardial infarction) 1997- Follows with Dr. Hodge/Kassidy History of recent hospitalization Admitted to [facility] 07/10/21-07/14/21- for staph bacteremia secondary to infected wound at suprapubic catheter site, UTI, acute metabolic encephalopathy; per 08/09/21 neuro note- bacteremia resolved with abxs, acute metabolic encephalopathy resolved, mental status back to baseline, UTI/GIOVANY resolved after abx. 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 SSS Initially implanted in 2008- generator change in 2016 Paroxysmal atrial fibrillation NO HX CARDIOVERSION On Eliquis Recurrent UTI Secondary hyperparathyroidism of renal origin Sleep apnea NO DEVICE USED UNABLE TO TOLERATE CPAP Stage 3b chronic kidney disease Suprapubic catheter In place secondary to neurogenic bladder current sepsis with hypotension on norepi 0.15mcg/min O2 sats 89 on 40L hi ezio O2. Exercise / Class Metabolic Activity IV < 2 Limit ADL/Bedbound Past Family History Family History Father Diabetes Mother Coronary heart disease Hypertension Brother Seizure Other No family history of adverse response to anesthesia Denies family history of Ovarian cancer Prostate cancer Myocardial infarction Breast cancer Colorectal cancer Past Surgical History Surgical History H/O total knee replacement R/L History of back surgery MULTIPLE History of cardiac cath Multiple cardiac stents (x4 total)- most recent 3+ years ago History of carpal tunnel release of both wrists History of cataract surgery B/L History of colonoscopy History of lithotripsy History of lumbar fusion History of prostate surgery Partial prostatectomy History of thyroidectomy secondary to goiter History of tooth extraction All teeth S/P cystoscopy with ureteral stent placement last 05/2021 @ [facility] Dr. William Medrano- Cystoscopy, Bilateral retrograde pyelogram, Bilateral ureteral stent exchange, Left aspiration and culture S/P TURP S/P ureteral stent placement Cysto, B/L RPG, right ureteroscopy, stent exchange: 07/06/18: LMA#5 at [facility] Cysto stent exchange (11/2018) Cystoscopy, stent exchange, suprapubic catheter (04/30/20): MAC at [facility] Past Anesthesia History No Hx of Anesthesia Complications and No Family Hx of Anesthesia Complications History of PONV No Hx of PONV and No Hx of Motion Sickness Social History Smoking Status: Never smoker tobacco type: cigarettes, pipe and smokeless tobacco Do You Dip or Chew Tobacco: No Hx Alcohol Use: No Hx Substance Use: No substance use type: does not use Physical Exam Vital Signs Last Vital Signs Temp 35.2 C L 11/04/21 16:04 Pulse 53 L 11/04/21 18:40 Resp 18 11/04/21 21:04 BP 87/54 L 11/04/21 18:40 Pulse Ox 93 11/04/21 21:04 O2 Del Method 11/04/21 21:04 O2 Flow Rate 40 11/04/21 21:04 FiO2 75 11/04/21 21:04 Constitutional on hi flow O2 ENMT Mouth: + dentures and + edentulous; no TMJ abnormality Thyromental Distance: > or= 3.5 Finger Breadths Mallampati Class: III Neck normal visual inspection and trachea midline; neck extension not limited Respiratory + respiratory distress Auscultation: + diminished lung sounds Cardiovascular Rate/Rhythm: regular rate and regular rhythm Heart Sounds: + murmur (DANIELA 2nd ICS) Chest (Breasts) Chest: + pacemaker Musculoskeletal Spine: normal cervical ROM Extremities: full ROM of extremities Neurologic moves all extremities Psychiatric Orientation: alert Testing Laboratory Results 11/04/21 15:20 11/04/21 15:20 Urine Color Red 11/04/21 17:06 Urine Appearance Turbid (Clear) A 11/04/21 17:06 Urine pH 6.0 (4.5-7.5) 11/04/21 17:06 Ur Specific [place] 1.020 (1.000-1.030) 11/04/21 17:06 Urine Protein 3+ (Negative) H 11/04/21 17:06 Urine Glucose (UA) Negative (Negative) 11/04/21 17:06 Urine Ketones Negative (Negative) 11/04/21 17:06 Urine Nitrite Negative (Negative) 11/04/21 17:06 Ur Leukocyte Esterase 3+ (Negative) H 11/04/21 17:06 Urine RBC >30 /hpf (0-4) H 11/04/21 17:06 Urine WBC >30 /hpf (0-5) H 11/04/21 17:06 Ur Epithelial Cells 0-5 /lpf (0-5) 11/04/21 17:06 11/04/21 15:26 POC Glucose (other) 164 H Electrocardiogram Date: 09/29/21 Findings: + NSR @ (88) LAD Chest X-Ray Date: 11/04/21 Findings: + atelectasis, + cardiomegaly and + pulmonary vascular congestion pacer noted Echocardiogram Date: 09/30/21 EF: 45-50% LV Function: dysfunctional (mildly reduced, globally) Other Findings: + LVH (moderate) Valvular Disease: + (severe), + AI (mild) and + MR (mild-mod) pacer/ICD in place for SSS, recently interrogated OK Other Testing Last seen by cardiology 04/29/2021= seen for follow-up on congestive heart failure. Patient last hospitalized November 2020 for heart failure exacerbation. Patient seen in office for follow-up of November 2020no diuretic therapy due to him being euvolemic. Has a pacemakeron last device check noted to have PAF and appropriately anticoagulated on Eliquis. Patient feels the same as he has been. Daughter states patient sleeps a lot. Not that mobile. Diastolic heart failurelast echocardiogram showed EF of 60-65%. Patient not on diuretic therapy due to CKD and being euvolemic. Continue current medications decrease salt intakemonitoring daily weights. Feels well on exam today. CKDfollows with neurology. Paroxysmal A. fibon Eliquis.SSSpresence of card iac [id number] years and 4 months of battery life remaining. Not pacing much this past month.CADHTNno cardiac complaints. Continue current meds. CHANELLE/COPDcontinue following with PCP.
[2021-11-04] MEDS ORDERED: PIPERACILLIN/TAZOBACTAM 4.5 GM in DEXTROSE 5% 100 ML IV SCH (22:00)
[2021-11-04] MEDS ORDERED: fentaNYL citrate 100 MCG/2 ML VIAL ONE (22:01)
[2021-11-04] MEDS ORDERED: KETAMINE 50 MG/5 ML SYRINGE ONE (22:02)
--- NOTE | 2021-11-04 22:08 | Urology Consultation ---
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 Likely dealing with an aspiration pneumonia due to bowel obstruction with severe emesis. Patient is hypotensive undergoing 2 pressors for maintenance of MAP. Patient's blood pressure is low. Patient is hypoxic and requiring significant support due to emesis patient has NG tube in place and concern for continued issues with aspiration. Patient is on high flow oxygen. Is receiving critical and active management by both the critical care team, the hospitalist, and the anesthesia team. Have been in close contact with critical care and have been coordinating closely with Dr. Valdez with anesthesia. Patient extremely high risk. Is acutely ill and possibly may not recover from the severe illness. Patient has been found to have severe bowel obstruction. When underwent fecal disimpaction with the critical care team. Has been undergoing NG tube suction to clear stomach contents. Patient has significant air within the collecting system on the right. Has known bilateral hydronephrosis with obstructive issues. Was going to have stent exchanges in the coming weeks. Has chronic stent bilaterally for management of severe obstructive issues. Has suprapubic catheter in place as well. Has had severe infections from urinary system in the past. Patient is obtunded and is undergoing critical management for acute illness. Patient is likely going to require central line and arterial line in order to monitor and manage severe hypotension. Is undergoing broad-spectrum antibiotics as well as volume resuscitation and close monitoring. Patient family have been contacted. Coordinating with anesthesia patient's understands patient's current DNR/DNI status however per family wishes they would like to proceed with intervention and likely intubation. Do understand potential risk including possible inability to extubate as well as possible patient's loss of life due to severe illness with multiple significant issues including the likely aspiration pneumonitis/pneumonia and significant issue. Understands high risk of procedure. Discussed possible issues with possibility of cardiac and respiratory arrest. Reviewed with patient's family via phone today. Understand emergency necessity. A conversation was also had about comfort care measures and possible supportive care with out invasive procedure. Risk and benefits were extensively reviewed. Plan will be for emergent bilateral stent exchange with concurrent management of pneumonitis/pneumonia, continued NG suction/decompression, placement of critical lines for volume resuscitation and pressors as well as mean arterial pressure monitoring, and continued critical management. Patient is extremely complicated medical and surgical history reviewed and summarized above. Patient's multiple comorbidities as well as the issues related to this severe presentation have been reviewed and mentioned as above. Patient's imaging was reviewed interpreted by myself. Review and read per my interpretation as above with significant hydronephrosis that has developed with air appearing in the right collecting system. Significant distention of GI system with severe distention of stomach and colon. Patient's labs have all been reviewed. Patient experienced multiorgan issues from the severe sepsis. Vitals are critically concerning with hypotension, bradycardia, and low body temp. Patient also hypoxic and labored and likely going to require intubation for acute respiratory failure. Patient's current COVID status is being finalized and assessed with the critical care and hospitalist team as he is recently had a COVID infection likely current positive values are related to the previous infection. Patient has GIOVANY on CKD has lactic acidosis with lactate above 3. White count is significantly elevated over 17,000. We will proceed with emergent procedure. Conversation was had with the and understands emergent need. Emergent consent will be documented. Patient's daughters were both present at the time of call with patient's . Spoke to patient's at 22:13 on 11/04/2021. Verbally agreed to proceed with emergent procedure History of Present Illness Attending Physician: Ashvin Bloom MD History of Present Illness Urgent/emergent consultation for acutely ill and septic patient with UTI/Pyelo, discomfort, and ill feelings. Patient is obtunded, acutely ill, dealing with active feculent emesis, and acute respiratory failure with severe sepsis and septic shock requiring multiple pressors. Patient is well-known to urology has a longstanding obstructive issue with suprapubic catheter and bilateral stents chronically. Patient had a stent exchange last in August. Patient had recently been admitted with COVID and significant respiratory issues. Is still measuring COVID-positive however is likely from the recent COVID infection in September. Patient has severe lung and heart issues at baseline. Presented acutely ill with severe delirium and active emesis with possible aspiration. Patient is likely dealing with a severe aspiration pneumonia with possible pneumonitis and is undergoing severe critical management. Extremely limited due to patient's current mentation as well as baseline issues. Have been coordinating with anesthesia and the intensive care unit as well as the hospitalist team for management. Patient is on 2 pressors at this point. Is going to require central line with art line and likely intubation secondary to aspiration. Has a NG tube in place which is attempting to manage his significant bowel backup. Had severe pedal impaction which was disimpacted by the ICU team. Patient has worsening hydronephrosis bilaterally with likely air within the right side. Has significant hematuria with darkened urine. Patient unable to describe pain at this point due to severe illness became considerably ill over the last few days. Altered mental status due to acute illness Discussed and reviewed patient's personal medical, surgical, social, and family history for any history of issues, infections, and disease. Also, discussed patient's medical/surgery history especially related to any history of urinary issues or stone disease. Patient is undergoing intense/critical management for acute illness and is being admitted to undergo critical care. Hospitalist/ICU team has admitted and is undergoing observation with broad spectrum IV antibiotics. Allergies Allergy/AdvReac Type Severity Reaction Status Date / Time captopril Allergy Severe Anaphylaxis Verified 11/04/21 18:06 Iodinated Contrast Media Allergy Severe Anaphylaxis Verified 11/04/21 18:06 morphine Allergy Severe Anaphylaxis Verified 11/04/21 18:06 oxaprozin Allergy Severe Anaphylaxis Verified 11/04/21 18:06 torsemide Allergy Severe Anaphylaxis Verified 11/04/21 18:06 hydrocodone Allergy Mild Rash Verified 11/04/21 18:06 Home Medications Medication Instructions Recorded Confirmed Type acetaminophen 325 mg tablet 650 mg PO Q4H PRN pain #30 tabs 08/14/19 11/04/21 Rx folic acid 1 mg tablet 1 mg PO QAM #90 tabs 10/04/19 11/04/21 Rx albuterol sulfate 90 mcg/actuation 2 puff inhalation Q6H PRN 07/09/20 11/04/21 Rx aerosol inhaler (Ventolin HFA) cough/wheeze/shortness of breath #1 inhaler cyanocobalamin (vitamin B-12) 1,000 mcg PO QAM 07/16/20 11/04/21 History 1,000 mcg tablet ferrous sulfate 325 mg (65 mg 325 mg PO QAM 07/16/20 11/04/21 History iron) tablet,delayed release polyethylene glycol 3350 17 gram 17 g PO BID PRN Constipation 07/16/20 11/04/21 History oral powder packet (Miralax) ascorbic acid (vitamin C) 500 mg 500 mg PO QAM 10/22/20 11/04/21 History tablet (Vitamin C) docusate sodium 100 mg capsule 100 mg PO BID PRN Constipation 10/22/20 11/04/21 History (Stool Softener) vitamin E 268 mg (400 unit) capsule 400 unit PO HS 10/22/20 11/04/21 History albuterol sulfate 2.5 mg/3 mL 2.5 mg (3 mL) inhalation QID PRN 04/16/21 11/04/21 Rx (0.083 %) solution for nebulization shortness of breath or wheezing #75 mL isosorbide mononitrate 30 mg 30 mg PO QAM #90 tabs 05/22/21 11/04/21 Rx tablet,extended release 24 hr nystatin 100,000 unit/gram topical 1 applic topical UD PRN Skin 05/22/21 11/04/21 History cream Irritation gabapentin 300 mg capsule 300 mg PO HS #90 caps 06/14/21 11/04/21 Rx ipratropium 0.5 mg-albuterol 3 mg 3 ml inhalation Q6H PRN wheezing 06/20/21 11/04/21 Rx (2.5 mg base)/3 mL nebulization #90 mL soln levothyroxine 112 mcg tablet 112 mcg PO HS #90 tabs 07/03/21 11/04/21 Rx (Synthroid) bethanechol chloride 50 mg tablet 50 mg PO QID #360 tabs 07/09/21 11/04/21 Rx bupropion HCl 100 mg tablet,12 hr 100 mg PO BID #60 ea 08/09/21 11/04/21 Rx sustained-release apixaban 2.5 mg tablet (Eliquis) 2.5 mg PO BID #180 tabs 08/13/21 11/04/21 Rx tamsulosin 0.4 mg capsule 0.4 mg PO HS #30 caps 08/22/21 11/04/21 Rx tramadol 50 mg tablet 50 mg PO TID PRN Pain #30 tabs 09/03/21 11/04/21 Rx memantine 10 mg tablet (Namenda) 10 mg PO BID #180 tabs 09/09/21 11/04/21 Rx benzonatate 100 mg capsule 100 mg PO TID PRN cough #30 caps 09/23/21 11/04/21 Rx donepezil 10 mg tablet 10 mg PO HS #90 tabs 09/23/21 11/04/21 Rx calcium carbonate 500 mg-vitamin 1 tab PO DAILY 09/29/21 11/04/21 History D3 5 mcg (200 unit) tablet carvedilol 3.125 mg tablet 3.125 mg PO BIDWMEAL 09/29/21 11/04/21 History famotidine 40 mg tablet (Pepcid) 40 mg PO DAILYBB 09/29/21 11/04/21 History amlodipine 5 mg tablet (Norvasc) 5 mg PO QAM #30 tabs 10/12/21 11/04/21 Rx dexamethasone 6 mg tablet 6 mg PO DAILY 11/04/21 11/04/21 History simvastatin 20 mg tablet 20 mg PO DAILY 11/04/21 11/04/21 History Patient History Medical History Anxiety and depression Aortic stenosis Severe per 09/30/21 ECHO UZMA 0.8cm CAD (coronary artery disease) Multiple cardiac stents (x4 total)- most recent 3+ years ago 1997- LCx- stent Most recent cath 2013 per cardio records "LAD okay, LCX OM 30, RCA ok, NL EF" Chronic diastolic heart failure Chronic pain 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 On donepezil and memantine, follows with neurology Dyslipidemia History of kidney stones History of [place] (myocardial infarction) 1997- Follows with Dr. Hodge/Kassidy History of recent hospitalization Admitted to [facility] 07/10/21-07/14/21- for staph bacteremia secondary to infected wound at suprapubic catheter site, UTI, acute metabolic encephalopathy; per 08/09/21 neuro note- bacteremia resolved with abxs, acute metabolic encephalopathy resolved, mental status back to baseline, UTI/GIOVANY resolved after abx. 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 SSS Initially implanted in 2008- generator change in 2017 Paroxysmal atrial fibrillation NO HX CARDIOVERSION On Eliquis Recurrent UTI Secondary hyperparathyroidism of renal origin Sleep apnea NO DEVICE USED UNABLE TO TOLERATE CPAP Stage 3b chronic kidney disease Suprapubic catheter In place secondary to neurogenic bladder Surgical History H/O total knee replacement R/L History of back surgery MULTIPLE History of cardiac cath Multiple cardiac stents (x4 total)- most recent 3+ years ago History of carpal tunnel release of both wrists History of cataract surgery B/L History of colonoscopy History of lithotripsy History of lumbar fusion History of prostate surgery Partial prostatectomy History of thyroidectomy secondary to goiter History of tooth extraction All teeth S/P cystoscopy with ureteral stent placement last 05/2021 @ [facility] Dr. William Medrano- Cystoscopy, Bilateral retrograde pyelogram, Bilateral ureteral stent exchange, Left aspiration and culture S/P TURP S/P ureteral stent placement Cysto, B/L RPG, right ureteroscopy, stent exchange: 07/06/18: LMA#5 at [facility] Cysto stent exchange (11/2018) Cystoscopy, stent exchange, suprapubic catheter (04/30/20): MAC at [facility] Family History Father Diabetes Mother Coronary heart disease Hypertension Brother Seizure Other No family history of adverse response to anesthesia Denies family history of Ovarian cancer Prostate cancer Myocardial infarction Breast cancer Colorectal cancer Social History Smoking Status: Never smoker Tobacco Type: Cigarettes Age Started Using Tobacco: 15; Age Quit Using Tobacco: 59; packs per day: 2; Second Hand Exposure: No; Do You Dip or Chew Tobacco: No; Tobacco Cessation Education Requested by Patient: No Hx Alcohol Use: No Hx Substance Use: No Preferred Language: Turkish Communication Ability: Effective Visual Impairment: No Limitations Hearing Ability: Hard of Hearing 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: No Beliefs That Will Affect Care: None marital status: Current Living Situation: Spouse and Family Current Living Situation Comment: spouse and daughters current occupational status: retired How many Children do You have: 3 Other Information That Helps Us Care for You: No Feels Safe at Home: Yes Safety Concerns: Feels Safe At This Time Childhood Exposure to Second-Hand Smoke: No caffeine: Yes (Coffee 3 per day.) during the past year weight has: remained stable Dental Care, Regularly: No Physical Activity Frequency: Does not Exercise Seatbelt Use: always Sunscreen Use: No Assistive Devices: Walker and Wheelchair Review of Systems Review of Systems: All systems reviewed & are unremarkable except as noted in HPI & below, Unobtainable due to cognitive status and Unobtainable due to reduced consciousness Limited due to patient illness Physical Exam Physical Exam: General: Acutely ill. Undergoing critical care management for acute severe infection. Obtunded and hypotensive HEENT: Normocephalic Atraumatic. Inspection normal. Neck is supple. Normal inspection of face. Normal inspection of neck. NG tube in place draining feculent material Neurologic: Obtunded without new deficits on inspection. Baseline for motor function and sensory. Psychologic: Severe altered mental status. Anxious, acute delirium secondary to illness Respiratory: Hypoxic and significantly labored with active emesis worsening respiratory issues/labored respirations Cardiovascular: tachycardia Skin: [place] and Dry. No rashes or visible lesions. Low temp Extremities: Moving extremities weakly. No obvious motor deficits on inspection Lymphatics: Edematous Abdomen: Severely distended. No rebound or guarding. Mild suprapubic/flank tenderness. Suprapubic catheter in place draining dark urine Results & Data ([facility]) Vital Signs (Past 12 Hours) Vital Signs Temp Pulse Resp BP BP Pulse Ox O2 Del Method 11/04/21 21:04 18 93 High Flow Nasal Cannula 11/04/21 20:38 20 95 High Flow Nasal Cannula 11/04/21 19:45 75 L Oxymask, High Flow Nasal Cannula 11/04/21 18:43 BiPAP 11/04/21 18:40 53 L 22 95 BiPAP 11/04/21 18:40 87/54 L BiPAP 11/04/21 18:32 BiPAP 11/04/21 18:32 59 L 19 97 BiPAP 11/04/21 18:30 53 L 22 94 BiPAP 11/04/21 18:20 56 L 22 95 BiPAP 11/04/21 18:20 73/54 L BiPAP 11/04/21 18:12 63/40 L BiPAP 11/04/21 18:12 21 95 BiPAP 11/04/21 18:10 75 22 96 BiPAP 11/04/21 18:02 59 L 19 96 BiPAP 11/04/21 18:02 84/51 L BiPAP 11/04/21 18:00 66 22 95 BiPAP 11/04/21 17:50 60 20 98 BiPAP 11/04/21 17:50 94/55 L BiPAP 11/04/21 17:41 89/73 L BiPAP 11/04/21 17:41 59 L 22 98 BiPAP 11/04/21 17:40 57 L 22 97 BiPAP 11/04/21 17:35 53 L 20 98 BiPAP 11/04/21 17:35 118/66 BiPAP 11/04/21 17:30 53 L 22 99 BiPAP 11/04/21 17:20 59 L 23 100 BiPAP 11/04/21 17:10 53 L 23 97 BiPAP 11/04/21 17:00 60 21 97 BiPAP 11/04/21 16:50 53 L 20 96 BiPAP 11/04/21 16:40 60 23 95 BiPAP 11/04/21 16:30 85 19 BiPAP 11/04/21 16:10 53 L 24 98 BiPAP 11/04/21 16:00 53 L 20 96 BiPAP 11/04/21 15:50 74 26 H 95 BiPAP 11/04/21 15:40 53 L 26 H 97 BiPAP 11/04/21 15:30 58 L 28 H 97 BiPAP 11/04/21 15:20 53 L 25 H 88 L BiPAP 11/04/21 15:19 56 L 25 H 87 L BiPAP 11/04/21 16:59 79/42 L 11/04/21 15:10 56 L 30 H 97 11/04/21 16:04 35.2 C L 11/04/21 15:16 91 BiPAP 11/04/21 15:08 53 L 23 102/59 L 89 L BiPAP O2 Flow Rate FiO2 11/04/21 21:04 40 75 11/04/21 20:38 40 60 11/04/21 19:45 60 100 11/04/21 18:43 90 11/04/21 18:40 11/04/21 18:40 11/04/21 18:32 11/04/21 18:32 11/04/21 18:30 11/04/21 18:20 11/04/21 18:20 11/04/21 18:12 11/04/21 18:12 11/04/21 18:10 11/04/21 18:02 11/04/21 18:02 11/04/21 18:00 11/04/21 17:50 11/04/21 17:50 11/04/21 17:41 11/04/21 17:41 11/04/21 17:40 11/04/21 17:35 11/04/21 17:35 11/04/21 17:30 11/04/21 17:20 11/04/21 17:10 11/04/21 17:00 11/04/21 16:50 11/04/21 16:40 11/04/21 16:30 11/04/21 16:10 11/04/21 16:00 11/04/21 15:50 11/04/21 15:40 11/04/21 15:30 11/04/21 15:20 11/04/21 15:19 11/04/21 16:59 11/04/21 15:10 90 11/04/21 16:04 11/04/21 15:16 11/04/21 15:08 PG Care Time/CCT Total # of Minutes Spent Total Time Spent with Patient: Total time spent is greater than 50% in coordination of care (as documented) at patient's floor/unit and/or counseling patient: Coding Level of Care Code 82737 Inpt Consult Level 5 Diagnoses Sepsis A41.9 Septic shock A41.9; R65.21 Acute respiratory failure with hypoxia J96.01 Aortic stenosis I35.0 Chronic diastolic heart failure I50.32 History of [place] (myocardial infarction) I25.2 Bowel obstruction K56.609 Aspiration pneumonia J69.0 Dementia F03.90 COVID-19 U07.1 Stage 3b chronic kidney disease N18.32 Emphysematous pyelitis N12 Hydronephrosis N13.30
[2021-11-04] MEDS ORDERED: MIDAZOLAM HCL 1 MG/ML 2ML VIAL ONE (22:51)
--- NOTE | 2021-11-04 23:19 | Operative Report ---
PG Post Operative Report Pre & Post Diagnosis Operation Date: 11/04/21 22:45 Pre-Op Diagnosis: Sepsis, Hydronephrosis Post-Op Diagnosis: Sepsis, Hydronephrosis I identified the patient and participated in the time-out.: Yes Procedure Operation Date: 11/04/21 22:45 Actual Procedures p Cystoscopy with Bilateral Retrograde pyelogram, right aspiration, and Ureteral Stent Exchange with exchange of Suprapubic tube(Bilateral) - William Medrano, Surgeon William Medrano, II, DO Telecom Specialist None Estimated Blood Loss 1 Findings Consistent with Post-Op Diagnosis Stents exchanged and placed in good position. Purulent urine from right kidney with large debris bilaterally. Suprapubic exchanged to 20 Fr. Specimens None Drains 7 Fr x 24 double J stent. 20 Fr Suprapubic Tube Anesthesia Type General Complications none Disposition Disposition: Surgical ICU Indications Patient with obstruction with chronic stent changes. Presented septic and obtunded with possible aspiration Pneumonia. Bilateral hydronephrosis with possible emphysematous pyelitis. Risks and benefits discussed at length. Plan for emergent intervention. Description of Procedure Patient was consented for emergent procedure after discussion with family. Patient severely ill with multiple issues and known severe cardiac and pulmonary issues. Significant aspiration risk. Patient was transitioned from the ICU and brought back to the operating room. Patient was placed under anesthesia in the supine position and moved to the dorsal lithotomy position. Patient was prepped and draped in the regular sterile fashion. A time out was completed. A 30degree Cystoscope was placed into the bladder and the entire bladder was examined. The UO's were identified. Large debris was noted in the bladder and on the stents. The left stent was grasped and partially removed. A wire was then placed and the stent fully removed. The UO was cannulized over the wire with a dual lumen catheter and a retrograde pyelogram was completed. The wire was maintained and the catheter removed. With the wire in place, a 7 Fr Double J stent was placed. It was confirmed with fluoroscopy. This was then completed for the right stent. After placing the wire, urine was aspirated from the right renal pelvis. This was sent for culture. Found to be grossly purulent. The 7 Fr stent was placed without issues. With the stents in place, the bladder was emptied. A 20 Fr suprapubic catheter was exchanged into the suprapubic tract. This was previously an 18 Fr catheter. The bladder was irrigated multiple times to clear the bladder of debris. The scope was removed. The patient was cleaned and additional lines placed for critical management by the anesthesia team. He was aroused but remained intubated and transferred to the ICU in stable but critical condition having tolerated the procedure well with no complications. I was present and participated in all aspects of the procedure. The patient will remain intubated due to aspiration and recent COVID infection and continue critical management in the ICU I attest to the content of the Intraoperative Record and any orders documented therein. Any exceptions are noted below.
[2021-11-04] MEDS ORDERED: DIATRIZOATE MEGLUMINE 30% 100ML VIAL INSTIL ONE (23:23)
[2021-11-04] MEDS ORDERED: PROPOFOL BOLUS FROM BAG IV PRN (23:45)
[2021-11-04] MEDS ORDERED: MIDAZOLAM HCL 1 MG/ML 2ML VIAL IV PRN (23:45)
[2021-11-05] MEDS ORDERED: fentaNYL citrate 2,500 MCG/250 ML BAG IV ONE (00:09)
[2021-11-05] MEDS ORDERED: ROCURONIUM BROMIDE 10 MG/ML 5 ML VIAL IV ONE (00:10)
[2021-11-05] MEDS ORDERED: SUCCINYLCHOLINE 100MG/5ML SYR IV ONE (00:10)
[2021-11-05] MEDS ORDERED: EPINEPHrine INJ 1 MG/ML AMP ONE (00:10)
[2021-11-05] MEDS ORDERED: fentaNYL citrate 100 MCG/2 ML VIAL IV PRN (00:15)
[2021-11-05] MEDS ORDERED: ATROPINE SULFATE 0.1 MG/ML 10ML SYR IV PRN (00:15)
[2021-11-05 00:19] LABS: iSTAT Art Bld Gas pCO2 Correct 37 mmHg (35-46); iSTAT Art Bld Gas pH Corrected 7.375 (7.35-7.45); iSTAT Arterial Blood Gas HCO3 22 meg/L (19-24); iSTAT Arterial Blood Gas pCO2 40 mmHg (35-46); iSTAT Arterial Blood Gas pH 7.35 (7.35-7.45); iSTAT Arterial Blood Gas pO2 71 mmHg (80-95); iSTAT Arterial Blood Gas pO2 C 64; iSTAT Carbon Dioxide 23 mmol/L (24-31); iSTAT FiO2 70 %; iSTAT Hematocrit 37 % (42-52); iSTAT Hemoglobin 12.6 g/dl (14.0-18.0); iSTAT Potassium 3.6 mmol/L (3.3-5.0); iSTAT Site Art Line; iSTAT Sodium 144 mmol/L (135-144)
[2021-11-05] MEDS ORDERED: fentaNYL BOLUS from BAG IV PRN (00:36)
[2021-11-05] MEDS ORDERED: STAT IV Infusion **Titration per Protocol STA (00:36)
[2021-11-05] MEDS ORDERED: fentaNYL citrate 2,500 MCG/250 ML BAG IV SCH (00:45)
[2021-11-05] MEDS ORDERED: HYDROCORTISONE SOD 50 MG in SYRINGE 0 ML IV SCH (01:00)
[2021-11-05] MEDS ORDERED: HYDROCORTISONE SOD SUCCINATE 100 MG/2 ML VIAL IV SCH (01:00)
--- NOTE | 2021-11-05 01:04 | Anesthesiology Progress Note ---
Date of Service November 05, 2021 Anesthesia Post Procedure Vital Signs Vital Signs: Temp Pulse Resp BP BP Pulse Ox O2 Del Method 11/04/21 23:55 35.5 C L 75 20 147/76 H 97 Mechanical Vent 11/05/21 00:00 35.5 C L 81 20 136/84 97 Mechanical Vent 11/04/21 23:45 20 11/05/21 00:10 76 20 91 11/04/21 23:45 35.5 C L 20 129/95 100 Mechanical Vent 11/04/21 19:05 26 H 95 11/04/21 22:10 35.9 C L 67 17 95 11/04/21 22:00 35.8 C L 74 14 94 11/04/21 22:00 135/70 11/04/21 21:50 35.7 C L 70 15 95 11/04/21 21:40 35.7 C L 64 18 94 11/04/21 21:30 35.6 C L 59 L 28 H 81 L 11/04/21 21:20 35.5 C L 57 L 24 92 11/04/21 21:10 35.5 C L 53 L 27 H 93 11/04/21 21:00 35.4 C L 53 L 17 92 11/04/21 21:00 105/52 L 11/04/21 20:50 35.4 C L 53 L 17 91 11/04/21 20:40 35.4 C L 57 L 25 H 92 11/04/21 20:30 35.4 C L 53 L 18 100 11/04/21 20:20 35.4 C L 70 29 H 11/04/21 20:10 20.7 C L 53 L 23 100 11/04/21 20:00 17 97 High Flow Nasal Cannula 11/04/21 20:00 135/84 11/04/21 19:58 53 L 22 91 11/04/21 18:50 53 L 24 100 11/04/21 18:50 93/57 L 11/04/21 23:09 High Flow Nasal Cannula 11/04/21 21:04 18 93 High Flow Nasal Cannula 11/04/21 20:38 20 95 High Flow Nasal Cannula 11/04/21 19:45 75 L Oxymask, High Flow Nasal Cannula 11/04/21 18:43 BiPAP 11/04/21 18:40 53 L 22 95 BiPAP 11/04/21 18:40 87/54 L BiPAP 11/04/21 18:32 BiPAP 11/04/21 18:32 59 L 19 97 BiPAP 11/04/21 18:30 53 L 22 94 BiPAP 11/04/21 18:20 56 L 22 95 BiPAP 11/04/21 18:20 73/54 L BiPAP 11/04/21 18:12 63/40 L BiPAP 11/04/21 18:12 21 95 BiPAP 11/04/21 18:10 75 22 96 BiPAP 11/04/21 18:02 59 L 19 96 BiPAP 11/04/21 18:02 84/51 L BiPAP 11/04/21 18:00 66 22 95 BiPAP 11/04/21 17:50 60 20 98 BiPAP 11/04/21 17:50 94/55 L BiPAP 11/04/21 17:41 89/73 L BiPAP 11/04/21 17:41 59 L 22 98 BiPAP 11/04/21 17:40 57 L 22 97 BiPAP 11/04/21 17:35 53 L 20 98 BiPAP 11/04/21 17:35 118/66 BiPAP 11/04/21 17:30 53 L 22 99 BiPAP 11/04/21 17:20 59 L 23 100 BiPAP 11/04/21 17:10 53 L 23 97 BiPAP 11/04/21 17:00 60 21 97 BiPAP 11/04/21 16:50 53 L 20 96 BiPAP 11/04/21 16:40 60 23 95 BiPAP 11/04/21 16:30 85 19 BiPAP 11/04/21 16:10 53 L 24 98 BiPAP 11/04/21 16:00 53 L 20 96 BiPAP 11/04/21 15:50 74 26 H 95 BiPAP 11/04/21 15:40 53 L 26 H 97 BiPAP 11/04/21 15:30 58 L 28 H 97 BiPAP 11/04/21 15:20 53 L 25 H 88 L BiPAP 11/04/21 15:19 56 L 25 H 87 L BiPAP 11/04/21 16:59 79/42 L 11/04/21 15:10 56 L 30 H 97 11/04/21 16:04 35.2 C L 11/04/21 15:16 91 BiPAP 11/04/21 15:08 53 L 23 102/59 L 89 L BiPAP O2 Flow Rate FiO2 11/04/21 23:55 70 11/05/21 00:00 70 11/04/21 23:45 100 11/05/21 00:10 80 11/04/21 23:45 11/04/21 19:05 90 11/04/21 22:10 11/04/21 22:00 11/04/21 22:00 11/04/21 21:50 11/04/21 21:40 11/04/21 21:30 11/04/21 21:20 11/04/21 21:10 11/04/21 21:00 11/04/21 21:00 11/04/21 20:50 11/04/21 20:40 11/04/21 20:30 11/04/21 20:20 11/04/21 20:10 11/04/21 20:00 40 70 11/04/21 20:00 11/04/21 19:58 11/04/21 18:50 11/04/21 18:50 11/04/21 23:09 40 70 11/04/21 21:04 40 75 11/04/21 20:38 40 60 11/04/21 19:45 60 100 11/04/21 18:43 90 11/04/21 18:40 11/04/21 18:40 11/04/21 18:32 11/04/21 18:32 11/04/21 18:30 11/04/21 18:20 11/04/21 18:20 11/04/21 18:12 11/04/21 18:12 11/04/21 18:10 11/04/21 18:02 11/04/21 18:02 11/04/21 18:00 11/04/21 17:50 11/04/21 17:50 11/04/21 17:41 11/04/21 17:41 11/04/21 17:40 11/04/21 17:35 11/04/21 17:35 11/04/21 17:30 11/04/21 17:20 11/04/21 17:10 11/04/21 17:00 11/04/21 16:50 11/04/21 16:40 11/04/21 16:30 11/04/21 16:10 11/04/21 16:00 11/04/21 15:50 11/04/21 15:40 11/04/21 15:30 11/04/21 15:20 11/04/21 15:19 11/04/21 16:59 11/04/21 15:10 90 11/04/21 16:04 11/04/21 15:16 11/04/21 15:08 Transfer of Care Handoff Completed per policy Notes Mental Status: see notes below Nausea / Vomiting: adequately controlled Pain: adequately controlled Airway Patency, RR, SpO2: stable & adequate BP & HR: stable & adequate Hydration State: stable & adequate Anesthetic Complications: no major complications apparent Notes: pt to icu vented on norepi. report given. updated no apparent anes complications
[2021-11-05] MEDS ORDERED: GLUCOSE 10 TAB/TUBE PO PRN (01:36)
[2021-11-05] MEDS ORDERED: GLUCAGON FOR INJ 1 MG VIAL SQ PRN (01:36)
[2021-11-05] MEDS ORDERED: GLUCOSE 40% GEL 15 GM TUBE PO PRN (01:36)
[2021-11-05] MEDS ORDERED: DEXTROSE 50% 50 ML SYRINGE IV PRN (01:36)
[2021-11-05] MEDS: INSULIN ASPART PER UNIT SC SCH ×4 (02:13→19:50)
[2021-11-05] MEDS: metroNIDAZOLE 500 MG/100 ML BAG IV SCH ×3 (05:06→19:56)
[2021-11-05 05:37] LABS: iSTAT Arterial Blood Gas HCO3 21 meg/L (19-24); iSTAT Arterial Blood Gas pCO2 37 mmHg (35-46); iSTAT Arterial Blood Gas pH 7.37 (7.35-7.45); iSTAT Arterial Blood Gas pO2 109 mmHg (80-95); iSTAT Carbon Dioxide 22 mmol/L (24-31); iSTAT FiO2 60 %; iSTAT Site Art Line
[2021-11-05] MEDS: NOREPINEPHRINE/D5W 4 MG/250 ML PLCT IV SCH ×2 (05:51→13:14)
[2021-11-05 06:08] LABS: Hematocrit (blood only) 37.7 % (40.1-51.0); Hemoglobin 12.5 g/dl (14.0-18.0); Mean Corpuscular Hemoglobin 31.1 pg (25.0-34.0); Mean Corpuscular Hgb Conc 33.2 g/dL (32.0-36.0); Mean Corpuscular Volume 93.8 fL (80.0-100.0); Mean Platelet Volume 9.9 fL (9.4-12.4); Platelet Count 241 K/uL (130-400); RDW Coefficient of Variation 15.4 % (11.5-14.5); RDW Standard Deviation 52.4 fL (36.4-46.3); Red Blood Count 4.02 M/uL (4.63-6.08); White Blood Count 26.06 K/ul (4.8-10.8)
[2021-11-05 06:26] LABS: INR 1.1 (0.9-1.1); Partial Thromboplastin Time 28.4 Seconds (21.0-31.0); Prothrombin Time 11.3 Seconds (9.0-12.0)
[2021-11-05 06:35] LABS: Acanthocytes 2+; Basophils # (auto) 0.06 K/uL (0-0.2); Basophils % (auto) 0.2 %; Echinocytes 3+; Immature Granulocytes % (auto) 1.9 %; Lymphocytes # (auto) 0.64 K/uL (1.2-3.4); Lymphocytes % (auto) 2.5 %; Monocytes # (auto) 0.82 K/uL (0.24-0.82); Monocytes % (auto) 3.1 %; Neutrophils # (auto) 24.04 K/uL (1.4-6.5); Neutrophils % (auto) 92.3 %
[2021-11-05 07:02] LABS: Albumin Level 2.6 gm/dl (3.4-5.0); BUN Creatinine Ratio 21.1 (10-20); Bilirubin Direct 0.2 mg/dl (0-0.2); Bilirubin,Total 0.6 mg/dl (0.2-1.0); Calcium 7.1 mg/dl (8.5-10.1); Creatinine Clr Calc Pharmacy 26.3 ml/min; Est GFR (African American) 29.9 ml/min; Est GFR (Non-African American) 25.8 ml/min; Magnesium 2.4 mg/dl (1.7-2.4); Phosphorus 6.4 mg/dl (2.5-4.9); Total Protein 5.1 gm/dl (6.0-8.3)
[2021-11-05] MEDS: VASOPRESSIN 20 UNITS in 0.9 % SODIUM CHLORIDE 100 ML IV SCH ×2 (07:02→13:09)
[2021-11-05] MEDS: ALBUT/IPRATROP 3MG/0.5MG NEB 3 ML VIAL INH SCH ×4 (07:09→20:00)
--- NOTE | 2021-11-05 08:13 | Urology Progress Note ---
Date of Service November 05, 2021 Assessment & Plan (1) Hydronephrosis: (2) Sepsis: (3) Chronic suprapubic catheter: (4) Catheter-associated urinary tract infection: Plan: 81 yo M critically ill patient admitted for acute hypoxic respiratory failure and septic shock. - POD#1 s/p B/L Ureteral Stent Exchange with exchange of Suprapubic tube with Dr. Medrano. - Critically ill patient with sepsis/septic shock secondary to urinary or pulmonary source. - Remains on pressors and mechanically ventilated. - Lab work reviewed - WBC increased to 26.06, creatinine 2.28. - Blood and urine cultures are pending, currently on IV Daptomycin, Cefepime, Flagyl, and Levofloxacin - follow cultures. - Suprapubic catheter intact and draining maroon urine, low urine output overnight. - Continue supportive care, antibiotics, and management per hospital and critical care teams. - will sign off, please contact us with any questions or concerns. Admission and Anticipated Discharge Date Admission Date: November 04, 2021 Subjective Critically ill patient seen in ICU this AM. POD #1 s/p B/L Ureteral Stent Exchange with exchange of Suprapubic tube. Afebrile overnight, remains on pressors. Intubated and mechanically ventilated. Suprapubic catheter intact and draining dark maroon urine. History and ROS unobtainable. Review of Systems Review of Systems: Unobtainable due to endotracheal tube Physical Exam Constitutional: + mechanically ventilated; no acute distress Respiratory: Mechanically ventilated Cardiovascular: Rate/Rhythm: regular rate Gastrointestinal (Abdomen): NG tube in place Musculoskeletal: Head/Neck/Chest: normocephalic and head atraumatic Genitourinary: Suprapubic catheter intact and draining dark maroon urine Results & Data ([facility]) Vital Signs (Past 12 Hours) Vital Signs Temp Pulse Resp BP BP Pulse Ox O2 Del Method 11/05/21 07:09 77 20 91 11/05/21 06:50 37.5 C 73 20 93 11/05/21 06:40 37.4 C 76 20 92 11/05/21 06:30 37.4 C 75 20 93 11/05/21 06:20 37.4 C 73 20 93 11/05/21 06:10 37.4 C 74 20 91 11/05/21 06:00 37.4 C 78 20 92 11/05/21 06:00 103/74 11/05/21 05:50 37.4 C 72 20 93 11/05/21 05:40 37.3 C 75 20 91 11/05/21 05:30 37.3 C 73 20 94 11/05/21 05:20 37.3 C 83 20 95 11/05/21 05:10 37.2 C 76 20 96 11/05/21 05:00 37.2 C 74 20 96 11/05/21 05:00 113/78 11/05/21 04:50 37.1 C 73 20 95 11/05/21 04:40 37.0 C 75 20 95 11/05/21 04:30 37.0 C 73 20 96 11/05/21 04:20 36.9 C 75 20 95 11/05/21 05:37 11/05/21 04:10 36.8 C 74 20 96 11/05/21 04:01 114/73 11/05/21 04:01 36.7 C 73 20 97 11/05/21 04:00 36.7 C 74 20 97 11/05/21 03:50 36.6 C 75 20 96 11/05/21 03:40 36.5 C 84 20 96 11/05/21 03:30 36.4 C L 74 20 97 11/05/21 03:20 36.3 C L 75 20 95 11/05/21 03:10 36.2 C L 72 20 96 11/05/21 03:01 129/92 11/05/21 03:01 36.1 C L 81 20 96 11/05/21 03:00 36.1 C L 78 20 96 11/05/21 02:50 36.0 C L 78 20 95 11/05/21 02:40 35.9 C L 69 20 94 11/05/21 02:30 35.9 C L 77 20 98 11/05/21 02:25 91/63 L 11/05/21 02:25 35.8 C L 71 20 96 11/05/21 02:20 35.8 C L 77 20 98 11/05/21 02:10 35.8 C L 78 20 93 11/05/21 02:00 35.7 C L 73 20 92 11/05/21 02:00 125/83 11/05/21 01:50 35.7 C L 78 22 92 11/05/21 01:40 35.6 C L 73 20 94 11/05/21 01:30 35.6 C L 73 20 95 11/05/21 01:20 35.6 C L 82 20 96 11/05/21 01:16 35.6 C L 74 20 95 11/05/21 01:16 128/81 11/05/21 01:10 35.6 C L 78 20 94 11/05/21 01:02 35.6 C L 72 20 92 11/05/21 04:00 11/05/21 02:55 77 20 96 11/05/21 00:00 11/05/21 01:14 76 11/04/21 23:55 35.5 C L 75 20 147/76 H 97 Mechanical Vent 11/05/21 00:00 35.5 C L 81 20 136/84 97 Mechanical Vent 11/04/21 23:45 20 11/05/21 00:10 76 20 91 11/04/21 23:45 35.5 C L 20 129/95 100 Mechanical Vent 11/04/21 22:10 35.9 C L 67 17 95 11/04/21 22:00 35.8 C L 74 14 94 11/04/21 22:00 135/70 11/04/21 21:50 35.7 C L 70 15 95 11/04/21 21:40 35.7 C L 64 18 94 11/04/21 21:30 35.6 C L 59 L 28 H 81 L 11/04/21 21:20 35.5 C L 57 L 24 92 11/04/21 21:10 35.5 C L 53 L 27 H 93 11/04/21 21:00 35.4 C L 53 L 17 92 11/04/21 21:00 105/52 L 11/04/21 20:50 35.4 C L 53 L 17 91 11/04/21 20:40 35.4 C L 57 L 25 H 92 11/04/21 20:30 35.4 C L 53 L 18 100 11/04/21 20:20 35.4 C L 70 29 H 11/04/21 23:09 High Flow Nasal Cannula 11/04/21 21:04 18 93 High Flow Nasal Cannula 11/04/21 20:38 20 95 High Flow Nasal Cannula O2 Flow Rate FiO2 11/05/21 07:09 11/05/21 06:50 11/05/21 06:40 11/05/21 06:30 11/05/21 06:20 11/05/21 06:10 11/05/21 06:00 11/05/21 06:00 11/05/21 05:50 11/05/21 05:40 11/05/21 05:30 11/05/21 05:20 11/05/21 05:10 11/05/21 05:00 11/05/21 05:00 11/05/21 04:50 11/05/21 04:40 11/05/21 04:30 11/05/21 04:20 11/05/21 05:37 40 11/05/21 04:10 11/05/21 04:01 11/05/21 04:01 11/05/21 04:00 11/05/21 03:50 11/05/21 03:40 11/05/21 03:30 11/05/21 03:20 11/05/21 03:10 11/05/21 03:01 11/05/21 03:01 11/05/21 03:00 11/05/21 02:50 11/05/21 02:40 11/05/21 02:30 11/05/21 02:25 11/05/21 02:25 11/05/21 02:20 11/05/21 02:10 11/05/21 02:00 11/05/21 02:00 11/05/21 01:50 11/05/21 01:40 11/05/21 01:30 11/05/21 01:20 11/05/21 01:16 11/05/21 01:16 11/05/21 01:10 11/05/21 01:02 11/05/21 04:00 60 11/05/21 02:55 60 11/05/21 00:00 80 11/05/21 01:14 11/04/21 23:55 70 11/05/21 00:00 70 11/04/21 23:45 100 11/05/21 00:10 80 11/04/21 23:45 11/04/21 22:10 11/04/21 22:00 11/04/21 22:00 11/04/21 21:50 11/04/21 21:40 11/04/21 21:30 11/04/21 21:20 11/04/21 21:10 11/04/21 21:00 11/04/21 21:00 11/04/21 20:50 11/04/21 20:40 11/04/21 20:30 11/04/21 20:20 11/04/21 23:09 40 70 11/04/21 21:04 40 75 11/04/21 20:38 40 60 PG Care Time/CCT Total # of Minutes Spent Total Time Spent with Patient: Total time spent is greater than 50% in coordination of care (as documented) at patient's floor/unit and/or counseling patient: Coding Level of Care Code 05573 Subseq Hosp Care Lvl 2 Diagnoses Hydronephrosis N13.30 Hydronephrosis type: unspecified Sepsis A41.9 Chronic suprapubic catheter Z93.59 Catheter-associated urinary tract infection T83.511A; N39.0 (1) Hydronephrosis Hydronephrosis type: unspecified Qualified Code(s): N13.30 - Unspecified hydronephrosis
--- NOTE | 2021-11-05 08:19 | Critical Care Progress Note ---
Date of Service November 05, 2021 Assessment & Plan (1) Septic shock: Plan: Reason Critically Ill: 81-year-old male with extensive past medical history presents to the ICU with acute hypoxic respiratory failure and hypotension requiring vasopressor support. CT abdomen pelvis positive for bilateral hydronephrosis and patient with bilateral ureteral stents Neuro - Dementiacontinue donepezil when appropriate Cardiac - Shock improving -Last echo 09/30 with EF 45 to 50%, severe -Currently on Levophed, maintain maps greater than 65 -Careful with fluid bolus given CHF -Patient given dose of glucose steroids in the ED -Plan for A-line, central line insertion Proximal atrial fibrillationhold antihypertensives -Restart apixaban Respiratory - Acute hypoxic respiratory failurelikely secondary to aspiration pneumonitis/pneumonia. -We will hold on diuresis at the time given renal function and hypotension -PE unlikely given patient anticoagulated on apixaban -Empiric antibiotic coverage -Continuous pulse ox monitoring GI - Bowel obstructionPatient without clear bowel obstruction on CT abdomen and pelvis however he did experiencing vomiting and aspiration episode. NG tube inserted to low intermittent suction. Rectosigmoid impaction on CT and underwent manual disimpaction at the bedside. Follow-up with [facility] in the morning. Will start on bowel regimen PPI RENAL/LYTES - CKD stage IIIcreatinine appears to be at baseline. Patient does have turbid urine and to undergo bilateral ureteral stent replacement. -No severe electrolyte abnormalities. Continue to monitor creatinine with routine BMPs -Continue IV fluid resuscitation Normosol at 125 - Hydronephrosisundergoing bilateral ureteral stent exchange per urology. Patient does have suprapubic cath and will monitor strict I's and O's ENDO - ICU hyperglycemic protocol Hypothyroidcontinue Synthroid HEME - H&H stable, monitor routine CBCs ID - Sepsisurinary source versus pulmonary. Patient with aspiration and urinalysis suggestive of UTI -Blood culture and urine culture pending. -Currently on cefepime and Flagyl, based on prior culture data we will expand to include daptomycin to include cover E faecalis, and Bactrim adjusted for renal function to cover stenotrophomonas -Goal to de-escalate as soon as we have some culture data -Influenza negative -Nasal MRSA negative -CT abdomen and pelvis shows free fluid around the rectosigmoid colon and in the paracolic gutters which is likely reactive along with rectosigmoid fecal impaction with evidence of stercoral proctocolitis. Flagyl added for intra- abdominal coverage -Continue cefepime and Flagyl LINES/IV ACCESS - Central line: Right IJ placed in operating room Arterial line: Left radial placed in operating room DVT PROPHYLAXIS - SCDs, restart apixaban -Discontinue heparin 1500: able to liberate patient from ventilator. 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 This is a life/limb threatening event. This includes time spent evaluating patient, direct bedside care, chart review, placing orders, interpretation of diagnostic studies, discussion with consultants, patient, and family members, as well as other required patient management activities. This time is exclusive of all separately billable procedures, and teaching time and separate from and in addition to any other critical care service time. Subjective Follows simple commands Review of Systems Review of Systems: Unobtainable due to endotracheal tube Physical Exam Physical Exam: General: Alert. nontoxic. Skin: Warm, dry, Head: Atraumatic Ears, nose, mouth and throat: airway patent Cardiovascular: Normal peripheral perfusion Respiratory: no respiratory distress Gastrointestinal: Non distended Musculoskeletal: No deformity Results & Data Results & Data ([facility]) Vital Signs (Past 12 Hours) Vital Signs Temp Pulse Resp BP BP Pulse Ox O2 Del Method 11/05/21 07:09 77 20 91 11/05/21 06:50 37.5 C 73 20 93 11/05/21 06:40 37.4 C 76 20 92 11/05/21 06:30 37.4 C 75 20 93 11/05/21 06:20 37.4 C 73 20 93 11/05/21 06:10 37.4 C 74 20 91 11/05/21 06:00 37.4 C 78 20 92 11/05/21 06:00 103/74 11/05/21 05:50 37.4 C 72 20 93 11/05/21 05:40 37.3 C 75 20 91 11/05/21 05:30 37.3 C 73 20 94 11/05/21 05:20 37.3 C 83 20 95 11/05/21 05:10 37.2 C 76 20 96 11/05/21 05:00 37.2 C 74 20 96 11/05/21 05:00 113/78 11/05/21 04:50 37.1 C 73 20 95 11/05/21 04:40 37.0 C 75 20 95 11/05/21 04:30 37.0 C 73 20 96 11/05/21 04:20 36.9 C 75 20 95 11/05/21 05:37 11/05/21 04:10 36.8 C 74 20 96 11/05/21 04:01 114/73 11/05/21 04:01 36.7 C 73 20 97 11/05/21 04:00 36.7 C 74 20 97 11/05/21 03:50 36.6 C 75 20 96 11/05/21 03:40 36.5 C 84 20 96 11/05/21 03:30 36.4 C L 74 20 97 11/05/21 03:20 36.3 C L 75 20 95 11/05/21 03:10 36.2 C L 72 20 96 11/05/21 03:01 129/92 11/05/21 03:01 36.1 C L 81 20 96 11/05/21 03:00 36.1 C L 78 20 96 11/05/21 02:50 36.0 C L 78 20 95 11/05/21 02:40 35.9 C L 69 20 94 11/05/21 02:30 35.9 C L 77 20 98 11/05/21 02:25 91/63 L 11/05/21 02:25 35.8 C L 71 20 96 11/05/21 02:20 35.8 C L 77 20 98 11/05/21 02:10 35.8 C L 78 20 93 09/27/22 02:00 35.7 C L 73 20 92 11/05/21 02:00 125/83 11/05/21 01:50 35.7 C L 78 22 92 11/05/21 01:40 35.6 C L 73 20 94 11/05/21 01:30 35.6 C L 73 20 95 11/05/21 01:20 35.6 C L 82 20 96 11/05/21 01:16 35.6 C L 74 20 95 11/05/21 01:16 128/81 11/05/21 01:10 35.6 C L 78 20 94 11/05/21 01:02 35.6 C L 72 20 92 11/05/21 04:00 11/05/21 02:55 77 20 96 11/05/21 00:00 11/05/21 01:14 76 11/04/21 23:55 35.5 C L 75 20 147/76 H 97 Mechanical Vent 11/05/21 00:00 35.5 C L 81 20 136/84 97 Mechanical Vent 11/04/21 23:45 20 11/05/21 00:10 76 20 91 11/04/21 23:45 35.5 C L 20 129/95 100 Mechanical Vent 11/04/21 22:10 35.9 C L 67 17 95 11/04/21 22:00 35.8 C L 74 14 94 11/04/21 22:00 135/70 11/04/21 21:50 35.7 C L 70 15 95 11/04/21 21:40 35.7 C L 64 18 94 11/04/21 21:30 35.6 C L 59 L 28 H 81 L 11/04/21 21:20 35.5 C L 57 L 24 92 11/04/21 21:10 35.5 C L 53 L 27 H 93 11/04/21 21:00 35.4 C L 53 L 17 92 11/04/21 21:00 105/52 L 11/04/21 20:50 35.4 C L 53 L 17 91 11/04/21 20:40 35.4 C L 57 L 25 H 92 11/04/21 20:30 35.4 C L 53 L 18 100 11/04/21 20:20 35.4 C L 70 29 H 11/04/21 23:09 High Flow Nasal Cannula 11/04/21 21:04 18 93 High Flow Nasal Cannula 11/04/21 20:38 20 95 High Flow Nasal Cannula O2 Flow Rate FiO2 11/05/21 07:09 11/05/21 06:50 11/05/21 06:40 11/05/21 06:30 11/05/21 06:20 11/05/21 06:10 11/05/21 06:00 11/05/21 06:00 11/05/21 05:50 11/05/21 05:40 11/05/21 05:30 11/05/21 05:20 11/05/21 05:10 11/05/21 05:00 11/05/21 05:00 11/05/21 04:50 11/05/21 04:40 11/05/21 04:30 11/05/21 04:20 11/05/21 05:37 40 11/05/21 04:10 11/05/21 04:01 11/05/21 04:01 11/05/21 04:00 11/05/21 03:50 11/05/21 03:40 11/05/21 03:30 11/05/21 03:20 11/05/21 03:10 11/05/21 03:01 11/05/21 03:01 11/05/21 03:00 11/05/21 02:50 11/05/21 02:40 11/05/21 02:30 11/05/21 02:25 11/05/21 02:25 11/05/21 02:20 11/05/21 02:10 11/05/21 02:00 11/05/21 02:00 11/05/21 01:50 11/05/21 01:40 11/05/21 01:30 11/05/21 01:20 11/05/21 01:16 11/05/21 01:16 11/05/21 01:10 11/05/21 01:02 11/05/21 04:00 60 11/05/21 02:55 60 11/05/21 00:00 80 11/05/21 01:14 11/04/21 23:55 70 11/05/21 00:00 70 11/04/21 23:45 100 11/05/21 00:10 80 11/04/21 23:45 11/04/21 22:10 11/04/21 22:00 11/04/21 22:00 11/04/21 21:50 11/04/21 21:40 11/04/21 21:30 11/04/21 21:20 11/04/21 21:10 11/04/21 21:00 11/04/21 21:00 11/04/21 20:50 11/04/21 20:40 11/04/21 20:30 11/04/21 20:20 11/04/21 23:09 40 70 11/04/21 21:04 40 75 11/04/21 20:38 40 60 Coding Level of Care Code Critical Care 1st 30-74 mins Diagnoses Septic shock A41.9; R65.21 Bowel obstruction K56.609 Aspiration pneumonia J69.0 Hydronephrosis N13.30 Emphysematous pyelitis N12 Aortic stenosis I35.0 Acute respiratory failure with hypoxia J96.01 Chronic suprapubic catheter Z93.59 Chronic diastolic heart failure I50.32 Hypothyroidism E03.9 Hypothyroidism type: acquired History of TN (myocardial infarction) I25.2 Dementia F03.90 CAD (coronary artery disease) I25.10 AICD (automatic cardioverter/defibrillator) present Z95.810 Paroxysmal atrial fibrillation I48.0 Stage 3b chronic kidney disease N18.32 (1) Hypothyroidism Hypothyroidism type: acquired Qualified Code(s): E03.9 - Hypothyroidism, unspecified
--- NOTE | 2021-11-05 09:05 | Fluoroscopy Report ---
FL retrograde includes kub CLINICAL HISTORY: Bilateral ureteral stent exchange. COMPARISON STUDY: CT of the abdomen and pelvis performed earlier today. FLUOROSCOPY TIME: 33 seconds. FLUOROSCOPIC IMAGES: 9 FINDINGS: Fluoroscopy was provided during bilateral ureteral stent exchange. Stents appear appropriat mary ellen positioned. Pelvicalyceal opacification is suboptimal. IMPRESSION: Fluoroscopy provided during bilateral ureteral stent exchange. ACT 112: Negative or not required by law. Electronically signed by: Glen Melvin M.D. 11/05/2021 9:04 AM
[2021-11-05] MEDS: propofoL 1,000 MG/100 ML VIAL IV SCH ×2 (09:16→10:49)
[2021-11-05] MEDS: NORMOSOL-R 1,000 ML IV SCH (09:17)
--- NOTE | 2021-11-05 09:35 | XRay Report ---
XR chest 1V portable CLINICAL HISTORY: post OR intubation COMPARISON STUDY: Chest radiograph November 04, 2021. Chest CT October 08, 2021. FINDINGS: Tip of endotracheal tube is 1 cm above the aury. Dual lead left subclavian pacer is in pl otilia. Tip of nasogastric tube is below the lower level of the stomach but at least within the body of the stomach. Right internal jugular central line is in place. There is no pneumothorax or pleural eff usion. Multifocal irregular opacities are noted, greater within the right lung. These are similar to prior exam. No evidence for pulmonary edema. Cardiomediastinal silhouette is stable. IMPRESSION: 1. Tip of endotracheal tube 1 cm above the aury. 2. No significant change in multifocal airspace opacities within lungs. ACT 112: Negative or not required by law. Electronically signed by: Glen Melvin M.D. 11/05/2021 9:32 AM
[2021-11-05] MEDS: HEPARIN SOD 5,000 UNIT/0.5 ML VIAL SQ SCH (10:14)
[2021-11-05] MEDS: PANTOprazole 40 MG in SYRINGE 0 ML IV SCH (10:18)
[2021-11-05] MEDS: CEFEPIME 1,000 MG in SYRINGE 0 ML IV SCH ×2 (10:18→19:55)
[2021-11-05] MEDS ORDERED: DAPTOmycin 400 MG in SYRINGE 0 ML IV SCH (10:30)
[2021-11-05] MEDS ORDERED: levoFLOXacin/D5W 750 MG/150 ML BAG IV SCH (11:00)
--- NOTE | 2021-11-05 11:18 | XRay Report ---
XR chest 1V portable CLINICAL HISTORY: Respiratory failure. COMPARISON STUDY: Chest radiograph November 04, 2021 at 11:54 PM. FINDINGS: Right internal jugular central line is in place. Tip of endotracheal tube is 4.5 cm above t he aury. Tip of nasogastric tube is at least within the body of the stomach. Dual lead left subclav otis pacemaker is in place. Patchy bilateral airspace opacities are again noted. Cardiomediastinal luis houette is stable. There is no evidence for pulmonary edema. IMPRESSION: 1. Satisfactory positioning of the endotracheal and nasogastric tubes. 2. No significant change in patchy bilateral airspace opacities. ACT 112: Negative or not required by law. Electronically signed by: Glen Melvin M.D. 11/05/2021 11:16 AM
[2021-11-05] MEDS: APIXABAN 2.5 MG TAB PO SCH ×2 (11:37→19:59)
[2021-11-05] MEDS: LEVOTHYROXINE SODIUM 112 MCG TABLET PO SCH (20:00)
[2021-11-05] MEDS: SENNA 8.6 MG TAB PO SCH (20:00)
--- NOTE | 2021-11-05 21:27 | Hospitalist Progress Note ---
Date of Service November 05, 2021 Assessment & Plan (1) Acute respiratory failure with hypoxia: Plan: Patient has sepsis and acute respiratory failure with hypoxia. Concern for sepsis could be urinary source Given sepsis and low blood pressure pressors were started in the emergency department after volume resuscitation Family does confirm he is a DNR/DNI Patient maintained on BiPAP and try to transition down to none pressure support ventilation such as high flow With his history of COPD we will use hydrocortisone ( also for shock) and albuterol Atrovent On 11/05, Patient is not intubated and remains in the icu PATIENT IS ON PRESSORS. will continue to monitor continue IV antibiotics. (2) Chronic diastolic heart failure: Plan: Patient has a history of combined heart failure. Echocardiogram from September 2021 shows EF of 45-50. With his low blood pressure this time this is being supported by vasopressors and we will avoid his carvedilol at this point in time to try to reinstitute it soon as possible likewise we are holding his amlodipine (3) Catheter-associated urinary tract infection: Plan: Patient is a previous history of a CAUTI his previous history of E. coli, [place] ER, Enterococcus plus multiple cultures consistent with Monalisa Urine cultures are obtained and patient started on broad-spectrum antibiotics of Zosyn Patient's tamsulosin is on hold (4) Paroxysmal atrial fibrillation: Plan: Patient takes carvedilol plus apixaban. These are on hold at this time if anticoagulation would be required we will use heparin therapy (5) COVID-19: Plan: Patient was COVID-positive September 19. He remains COVID-positive today rechecking infection control whether he needs to be in respiratory isolation at this time (6) CAD (coronary artery disease): Plan: Patient on the above listed carvedilol and isosorbide these are currently on hold (7) Dementia: Plan: Dementia depression the patient takes Memantine, donepezil plus bupropion's are currently on hold with a severely ill state Plan Patient typically is on Synthroid 112 mcg, last checked in September was replete Admission and Anticipated Discharge Date Admission Date: November 04, 2021 Subjective Patient is intubated. Review of Systems Review of Systems: All systems reviewed & are unremarkable except as noted in HPI & below Physical Exam Physical Exam: Intubated and sedated Vital signs as documented. Head exam is normocephalic atraumatic Neck is without JVD, thyromegaly, or carotid bruits. Lungs are coarse bilaterally Cardiac exam, Rhythm is regular.. No murmurs, rubs or gallops. Abdominal exam reveals hypoactive bowel sounds, distented tympanitic and painful Extremities are trace edematous and both pedal pulses are present Results & Data Results & Data ([facility]) Vital Signs (Past 12 Hours) Vital Signs Temp Pulse Pulse Resp BP Pulse Ox O2 Del Method 11/05/21 20:00 81 20 Nasal Cannula 11/05/21 19:00 36.8 C 78 19 94 11/05/21 19:00 117/78 11/05/21 18:00 36.8 C 80 16 92 11/05/21 18:00 117/83 11/05/21 17:01 36.7 C 105 H 17 93 11/05/21 17:01 121/82 11/05/21 17:00 36.7 C 105 H 18 92 11/05/21 16:06 136/91 11/05/21 16:06 36.7 C 84 28 H 92 11/05/21 16:00 36.7 C 82 19 80 L 11/05/21 16:01 81 18 98 Oxymask 11/05/21 15:00 36.7 C 82 20 97 11/05/21 15:00 118/84 11/05/21 14:01 36.8 C 83 16 94 11/05/21 14:01 127/88 11/05/21 14:00 36.8 C 83 20 94 Oxymask 11/05/21 13:01 132/68 11/05/21 13:01 37.1 C 90 16 94 11/05/21 13:00 37.1 C 90 20 95 11/05/21 12:55 94 11/05/21 11:46 72 20 97 11/05/21 12:01 105/70 11/05/21 12:01 37.6 C H 80 20 94 11/05/21 12:00 37.6 C H 80 17 96 Mechanical Vent 11/05/21 11:00 37.6 C H 74 17 96 11/05/21 11:00 142/104 H 11/05/21 10:01 120/78 11/05/21 10:01 37.8 C H 78 20 95 11/05/21 10:00 37.8 C H 83 18 95 11/05/21 12:00 O2 Flow Rate FiO2 11/05/21 20:00 3 96 11/05/21 19:00 11/05/21 19:00 11/05/21 18:00 11/05/21 18:00 11/05/21 17:01 11/05/21 17:01 11/05/21 17:00 11/05/21 16:06 11/05/21 16:06 11/05/21 16:00 11/05/21 16:01 3 11/05/21 15:00 11/05/21 15:00 11/05/21 14:01 11/05/21 14:01 11/05/21 14:00 3 11/05/21 13:01 11/05/21 13:01 11/05/21 13:00 11/05/21 12:55 11/05/21 11:46 40 11/05/21 12:01 11/05/21 12:01 11/05/21 12:00 40 11/05/21 11:00 11/05/21 11:00 11/05/21 10:01 11/05/21 10:01 11/05/21 10:00 11/05/21 12:00 40 PG Care Time/CCT Total # of Minutes Spent Total Time Spent with Patient: Total time spent is greater than 50% in coordination of care (as documented) at patient's floor/unit and/or counseling patient: Coding Level of Care Code 95267 Subseq Hosp Care Lvl 3 Diagnoses Acute respiratory failure with hypoxia J96.01 Chronic diastolic heart failure I50.32 Catheter-associated urinary tract infection T83.511A; N39.0 Paroxysmal atrial fibrillation I48.0 COVID-19 U07.1 CAD (coronary artery disease) I25.10 Dementia F03.90 Time Spent (min) 35
--- NOTE | 2021-11-05 22:38 | Electrocardiogram Report ---
Test Reason : Blood Pressure : / mmHG Vent. Rate : 062 BPM Atrial Rate : 068 BPM P-R Int : 000 ms QRS Dur : 084 ms QT Int : 474 ms P-R-T Axes : 107 -36 049 degrees QTc Int : 481 ms Poor data quality, interpretation may be adversely affected Atrial-paced rhythm with Premature atrial complexes Left axis deviation Inferior infarct , age undetermined Abnormal ECG When compared with ECG of 29-SEP-2021 16:10, Electronic atrial pacemaker has replaced Sinus rhythm Confirmed by Olegario Sandoval ([id number]) on 11/05/2021 10:37:47 PM Referred By: REFERRED SELF Confirmed By:Olegario Sandoval
--- NOTE | 2021-11-05 23:06 | Electrocardiogram Report ---
Test Reason : Blood Pressure : / mmHG Vent. Rate : 076 BPM Atrial Rate : 076 BPM P-R Int : 170 ms QRS Dur : 076 ms QT Int : 402 ms P-R-T Axes : 056 -38 068 degrees QTc Int : 452 ms Sinus rhythm with Premature atrial complexes Left axis deviation Abnormal ECG When compared with ECG of 04-NOV-2021 15:12, Sinus rhythm has replaced Electronic atrial pacemaker Confirmed by Olegario Sandoval ([id number]) on 11/05/2021 11:06:24 PM Referred By: REFERRED SELF Confirmed By:Olegario Sandoval
[2021-11-06] MEDS: INSULIN ASPART PER UNIT SC SCH ×5 (01:00→23:45)
[2021-11-06] MEDS: metroNIDAZOLE 500 MG/100 ML BAG IV SCH (04:43)
[2021-11-06 06:47] LABS: Hematocrit (blood only) 36.5 % (40.1-51.0); Mean Corpuscular Hemoglobin 30.7 pg (25.0-34.0); Mean Corpuscular Hgb Conc 32.9 g/dL (32.0-36.0); Mean Corpuscular Volume 93.4 fL (80.0-100.0); Mean Platelet Volume 10.1 fL (9.4-12.4); Platelet Count 190 K/uL (130-400); RDW Coefficient of Variation 16.1 % (11.5-14.5); RDW Standard Deviation 54.4 fL (36.4-46.3); Red Blood Count 3.91 M/uL (4.63-6.08)
[2021-11-06 07:10] LABS: INR 1.2 (0.9-1.1); Partial Thromboplastin Ratio 1.2; Partial Thromboplastin Time 33.6 Seconds (21.0-31.0); Prothrombin Time 12.6 Seconds (9.0-12.0)
[2021-11-06] MEDS: ALBUT/IPRATROP 3MG/0.5MG NEB 3 ML VIAL INH SCH ×4 (07:11→19:30)
[2021-11-06 07:19] LABS: Acanthocytes 2+; Basophils # (auto) 0.02 K/uL (0-0.2); Basophils % (auto) 0.1 %; Echinocytes 2+; Immature Granulocytes # (auto) 0.21 K/uL (0.00-0.02); Immature Granulocytes % (auto) 1.2 %; Lymphocytes # (auto) 0.66 K/uL (1.2-3.4); Lymphocytes % (auto) 3.7 %; Monocytes # (auto) 0.63 K/uL (0.24-0.82); Monocytes % (auto) 3.5 %; Neutrophils # (auto) 16.48 K/uL (1.4-6.5); Neutrophils % (auto) 91.5 %; Polychromasia 1+
[2021-11-06 07:23] LABS: Calcium 7.2 mg/dl (8.5-10.1); Creatinine Clr Calc Pharmacy 23.6 ml/min; Est GFR (African American) 26.2 ml/min; Est GFR (Non-African American) 22.6 ml/min; Magnesium 2.4 mg/dl (1.7-2.4); Phosphorus 5.4 mg/dl (2.5-4.9); Potassium 3.6 mmol/L (3.5-5.1)
--- NOTE | 2021-11-06 08:42 | Critical Care Progress Note ---
Date of Service November 06, 2021 Assessment & Plan (1) Septic shock: Plan: Reason Critically Ill: 81-year-old male with extensive past medical history presents to the ICU with acute hypoxic respiratory failure and hypotension requiring vasopressor support. CT abdomen pelvis positive for bilateral hydronephrosis and patient with bilateral ureteral stents Neuro - Dementiacontinue donepezil when appropriate Cardiac - Shock resolved -Last echo 09/30 with EF 45 to 50%, severe Proximal atrial fibrillationhold antihypertensives -Restart apixaban Respiratory - Acute hypoxic respiratory failureresolved -PE unlikely given patient anticoagulated on apixaban -Probable aspiration event GI - Constipation/stercoral colitis: Status post digital disimpaction -On senna, giving MiraLAX and bisacodyl -Discontinue NG: Minimal output Bedside swallow evaluation today, if fails will need formal swallow study Questionable ileus PPI: Convert to home regimen Pepcid RENAL/LYTES - Acute kidney injury on CKD stage III -Bilateral ureteral stents with suprapubic Michel: All changed during this hospitalization Pseudomonas in urine -Presumptive source will discontinue Levaquin given intermediate susceptibility continue cefepime -Discontinue daptomycin given negative blood cultures at 48 hours and significant improvement -Decrease Normosol to 75 mL continuous until reassured GI tract f unctioning and able to take adequate p.o. - Hydronephrosisundergoing bilateral ureteral stent exchange per urology. Patient does have suprapubic cath and will monitor strict I's and O's ENDO - ICU hyperglycemic protocol Hypothyroidcontinue Synthroid HEME - H&H stable, monitor routine CBCs ID - Sepsisurinary source. Patient with aspiration and urinalysis suggestive of UTI -Blood culture and urine culture reviewed. -Continue cefepime, discontinue all additional anti-infectives -Influenza negative -Nasal MRSA negative LINES/IV ACCESS - Central line: Right IJ placed in operating room: Discontinue today Arterial line: Left radial placed in operating room: Discontinue today DVT PROPHYLAXIS - SCDs, restart apixaban -Discontinue heparin Disposition: Stable for downgrade out of ICU (2) Bowel obstruction: (3) Aspiration pneumonia: (4) Hydronephrosis: (5) Emphysematous pyelitis: (6) Aortic stenosis: (7) Acute respiratory failure with hypoxia: (8) Chronic suprapubic catheter: (9) Chronic diastolic heart failure: (10) Hypothyroidism: (11) History of MD (myocardial infarction): (12) Dementia: (13) CAD (coronary artery disease): (14) AICD (automatic cardioverter/defibrillator) present: (15) Paroxysmal atrial fibrillation: (16) Stage 3b chronic kidney disease: Admission and Anticipated Discharge Date Admission Date: November 04, 2021 Subjective No overnight events Physical Exam Physical Exam: General: Alert. nontoxic. Skin: Warm, dry, Head: Atraumatic Ears, nose, mouth and throat: airway patent Cardiovascular: Normal peripheral perfusion Respiratory: no respiratory distress Gastrointestinal: Non distended Musculoskeletal: No deformity Results & Data Results & Data ([facility]) Vital Signs (Past 12 Hours) Vital Signs Temp Pulse Pulse Resp BP Pulse Ox O2 Del Method 11/06/21 07:11 79 18 95 Oxymask 11/06/21 06:00 36.6 C 77 14 92 11/06/21 06:00 127/86 11/06/21 05:00 36.7 C 106 H 17 93 11/06/21 05:00 127/93 11/06/21 04:00 36.7 C 91 H 13 92 11/06/21 04:00 125/76 11/06/21 03:00 36.7 C 94 H 11 L 98 11/06/21 03:00 146/89 H 11/06/21 02:01 36.7 C 92 H 12 92 11/06/21 02:01 138/80 11/06/21 02:00 36.7 C 79 15 92 11/06/21 01:00 36.7 C 79 15 90 11/06/21 01:00 157/99 H 11/06/21 00:00 36.7 C 81 15 94 Nasal Cannula 11/06/21 00:00 143/90 H 11/05/21 23:00 36.7 C 76 20 94 11/05/21 23:00 136/75 11/05/21 22:00 36.6 C 78 22 93 11/05/21 22:00 132/86 11/06/21 00:00 90 11/05/21 21:00 36.6 C 90 24 93 11/05/21 21:00 117/75 11/05/21 21:59 Nasal Cannula O2 Flow Rate 11/06/21 07:11 3 11/06/21 06:00 11/06/21 06:00 11/06/21 05:00 11/06/21 05:00 11/06/21 04:00 11/06/21 04:00 11/06/21 03:00 11/06/21 03:00 11/06/21 02:01 11/06/21 02:01 11/06/21 02:00 11/06/21 01:00 11/06/21 01:00 11/06/21 00:00 3 11/06/21 00:00 11/05/21 23:00 11/05/21 23:00 11/05/21 22:00 11/05/21 22:00 11/06/21 00:00 11/05/21 21:00 11/05/21 21:00 11/05/21 21:59 2 Critical Care Results & Data Vital Signs (Past 12 Hours) Vital Signs Temp Pulse Pulse Resp BP Pulse Ox O2 Del Method 11/06/21 07:11 79 18 95 Oxymask 11/06/21 06:00 36.6 C 77 14 92 11/06/21 06:00 127/86 11/06/21 05:00 36.7 C 106 H 17 93 11/06/21 05:00 127/93 11/06/21 04:00 36.7 C 91 H 13 92 11/06/21 04:00 125/76 11/06/21 03:00 36.7 C 94 H 11 L 98 11/06/21 03:00 146/89 H 11/06/21 02:01 36.7 C 92 H 12 92 11/06/21 02:01 138/80 11/06/21 02:00 36.7 C 79 15 92 11/06/21 01:00 36.7 C 79 15 90 11/06/21 01:00 157/99 H 11/06/21 00:00 36.7 C 81 15 94 Nasal Cannula 11/06/21 00:00 143/90 H 11/05/21 23:00 36.7 C 76 20 94 11/05/21 23:00 136/75 11/05/21 22:00 36.6 C 78 22 93 11/05/21 22:00 132/86 11/06/21 00:00 90 O2 Flow Rate 11/06/21 07:11 3 11/06/21 06:00 11/06/21 06:00 11/06/21 05:00 11/06/21 05:00 11/06/21 04:00 11/06/21 04:00 11/06/21 03:00 11/06/21 03:00 11/06/21 02:01 11/06/21 02:01 11/06/21 02:00 11/06/21 01:00 11/06/21 01:00 11/06/21 00:00 3 11/06/21 00:00 11/05/21 23:00 11/05/21 23:00 11/05/21 22:00 11/05/21 22:00 11/06/21 00:00 Lab & Micro Results (Past 24 Hours) RBC 3.91 M/uL (4.63-6.08) L 11/06/21 WBC 18.00 K/ul (4.8-10.8) H 11/06/21 Hgb 12.0 g/dl (14.0-18.0) L 11/06/21 Hct 36.5 % (40.1-51.0) L 11/06/21 MCV 93.4 fL (80.0-100.0) 11/06/21 MCH 30.7 pg (25.0-34.0) 11/06/21 MCHC 32.9 g/dL (32.0-36.0) 11/06/21 RDW Standard Deviation 54.4 fL (36.4-46.3) H 11/06/21 RDW Coefficient of Variation 16.1 % (11.5-14.5) H 11/06/21 Plt Count 190 K/uL (130-400) 11/06/21 MPV 10.1 fL (9.4-12.4) 11/06/21 Neutrophils (%) (Auto) 91.5 % 11/06/21 Lymphocytes (%) (Auto) 3.7 % 11/06/21 Monocytes # (Auto) 0.63 K/uL (0.24-0.82) 11/06/21 Eosinophils # (Auto) 0.00 K/uL (0-0.50) 11/06/21 Immature Granulocyte % (Auto) 1.2 % 11/06/21 Neutrophils # (Auto) 16.48 K/uL (1.4-6.5) H 11/06/21 Lymphocytes # (Auto) 0.66 K/uL (1.2-3.4) L 11/06/21 Monocytes # (Auto) 0.63 K/uL (0.24-0.82) 11/06/21 Eosinophils # (Auto) 0.00 K/uL (0-0.50) 11/06/21 Basophils # (Auto) 0.02 K/uL (0-0.2) 11/06/21 Immature Granulocyte # (Auto) 0.21 K/uL (0.00-0.02) H 11/06 Polychromasia 1+ 11/06/21 Echinocytes 2+ 11/06/21 Acanthocytes 2+ 11/06/21 Na 145 mmol/L (136-145) 11/06/21 K 3.6 mmol/L (3.5-5.1) 11/06/21 Cl 111 mmol/L (98-107) H 11/06/21 CO2 23 mmol/L (21-32) 11/06/21 Anion Gap 11 (3-11) 11/06/21 BUN 56 mg/dl (6-23) H 11/06/21 Creatinine 2.54 mg/dl (0.6-1.4) H 11/06/21 Estimated GFR ( Amer) 26.2 ml/min 11/06/21 Estimated GFR (Non-Af Amer) 22.6 ml/min 11/06/21 BUN/Creatinine Ratio 22.0 (10-20) H 11/06/21 Glu 154 mg/dl (70-99(Fasting)) H 11/06/21 Ca 7.2 mg/dl (8.5-10.1) L 11/06/21 Phosphorus Level 5.4 mg/dl (2.5-4.9) H 11/06/21 Mg 2.4 mg/dl (1.7-2.4) 11/06/21 06:08 Calcium Level 7.2 mg/dl (8.5-10.1) L 11/06/21 06:08 Prothromb Time International Ratio 1.2 (0.9-1.1) H 11/06/21 06 :08 Microbiology 11/04/21 17:06 Urine Culture - Preliminary Urine,Clean Catch Pseudomonas aeruginosa Yeast 11/04/21 17:06 Urine Culture - Final Urine,Indwelling Cath Three types of organisms present, all high counts. Repeat collection recommended. No further identifications or sensitivities to follow. 11/04/21 15:20 Aerobic Blood Culture - Preliminary Blood No growth in Aerobic bottle after 24 hours. Anaerobic Blood Culture - Final 11/04/21 15:36 Aerobic Blood Culture - Preliminary Blood No growth in Aerobic bottle after 24 hours. Anaerobic Blood Culture - Preliminary No growth in Anaerobic bottle after 24 hours. Diagnostic Findings (Past 24 Hours) Chest X-Ray 11/05/21 07:00 XR chest 1V portable CLINICAL HISTORY: Respiratory failure. COMPARISON STUDY: Chest radiograph November 04, 2021 at 11:54 PM. FINDINGS: Right internal jugular central line is in place. Tip of endotracheal tube is 4.5 cm above the aury. Tip of nasogastric tube is at least within the body of the stomach. Dual lead left subclavian pacemaker is in place. Patchy bilateral airspace opacities are again noted. Cardiomediastinal silhouette is stable. There is no evidence for pulmonary edema. IMPRESSION: 1. Satisfactory positioning of the endotracheal and nasogastric tubes. 2. No significant change in patchy bilateral airspace opacities. ACT 112: Negative or not required by law. Electronically signed by: Glen Melvin M.D. 11/05/2021 11:16 AM I & O Totals 24 Hours 11/05/21 11/06/21 11/07/21 06:59 06:59 06:59 Intake Total 2070.468 / 2070.468 2851.552 / 2851.552 Output Total 1000 / 1000 1210 / 1210 400 / 400 Balance 1070.468 / 9221.709 8116.552 / 1641.552 -400 / -400 Cumulative 11/04/21 14:48 thru 11/06/21 09:56 Intake Total 4922.020 Output Total 2610 Balance 2312.020 RT Ventilator Mngmt (Last Documented) Ventilator Ordered Settings Ventilator Support Mode Assist Control 11/05/21 12:00 Respiratory Rate 18 11/06/21 0 7:11 Ventilator Tidal Volume 400 11/05/21 12:00 Setting Minute Ventilation 8 11/05/21 11:46 Positive End Expiratory 5 11/05/21 12:00 Pressure Fraction of Inspired Oxygen 96 11/05/21 20:00 Peak Inspiratory Flow 40 11/05/21 07:09 Machine Comment PEEP decreased to +5 11/05/21 11:46 Ventilator - PT Measurements Respiratory Rate 18 Exhaled Tidal Volume 400 Minute Ventilation 8 Peak Inspiratory Airway 18 Pressure Plateau Pressure 16.6 Respiratory Cycle Inspiratory: 1:2.3 Expiratory Ratio Inspiratory Phase Time 0.90 End-Tidal CO2 24 Static Lung Compliance 34.48 Dynamic Lung Compliance 30.77 Normal Static Lung Compliance 47.00 Patient Measurements Comment pt extubated to 3L oxy mask, SpO2 94%. suctioned pre and post extubation orally, small crean/draper secretions suctioned. pt was able to say name post extubation, hoarse voice. no stridor. Coding Level of Care Code 27278 Subseq Hosp Care Lvl 3 Diagnoses Septic shock A41.9; R65.21 Bowel obstruction K56.609 Aspiration pneumonia J69.0 Hydronephrosis N13.30 Emphysematous pyelitis N12 Aortic stenosis I35.0 Acute respiratory failure with hypoxia J96.01 Chronic suprapubic catheter Z93.59 Chronic diastolic heart failure I50.32 Hypothyroidism E03.9 Hypothyroidism type: acquired History of MD (myocardial infarction) I25.2 Dementia F03.90 CAD (coronary artery disease) I25.10 AICD (automatic cardioverter/defibrillator) present Z95.810 Paroxysmal atrial fibrillation I48.0 Stage 3b chronic kidney disease N18.32 (1) Hypothyroidism Hypothyroidism type: acquired Qualified Code(s): E03.9 - Hypothyroidism, unspecified
[2021-11-06] MEDS: CEFEPIME 1,000 MG in SYRINGE 0 ML IV SCH ×2 (09:02→19:56)
[2021-11-06] MEDS: NORMOSOL-R 1,000 ML IV SCH ×3 (10:23→11:42)
[2021-11-06] MEDS: APIXABAN 2.5 MG TAB PO SCH ×2 (10:23→19:57)
[2021-11-06] MEDS ORDERED: bisacodyL 5 MG TABEC PO ONE (11:15)
[2021-11-06] MEDS: PANTOprazole 40 MG in SYRINGE 0 ML IV SCH (11:45)
[2021-11-06] MEDS: POLYETHYLENE (MIRALAX) 17 GM PACK PO SCH (12:36)
[2021-11-06] MEDS: LEVOTHYROXINE SODIUM 112 MCG TABLET PO SCH (19:57)
[2021-11-06] MEDS: SENNA 8.6 MG TAB PO SCH (19:57)
--- NOTE | 2021-11-06 23:43 | Hospitalist Progress Note ---
Date of Service November 06, 2021 Assessment & Plan (1) Acute respiratory failure with hypoxia: Plan: Patient has sepsis and acute respiratory failure with hypoxia. Concern for sepsis could be urinary source Given sepsis and low blood pressure pressors were started in the emergency department after volume resuscitation Family does confirm he is a DNR/DNI Patient maintained on BiPAP and try to transition down to none pressure support ventilation such as high flow With his history of COPD we will use hydrocortisone ( also for shock) and albuterol Atrovent On 11/05 Patient is now intubated in AM and remains in the icu PATIENT IS ON PRESSORS. will continue to monitor continue IV antibiotics. Later in day, patient was successfully extubated On 11/06 Patient on oxymask. Plan to remove CVL and arterial line. titrated off pressors. will monitor blood pressures. LIkely downgrade on 11/07 Continue cefepime and dc all antibiotics as patient source for sepsis (septic shock) was a UTI (2) Chronic diastolic heart failure: Plan: Patient has a history of combined heart failure. Echocardiogram from September 2021 shows EF of 45-50. With his low blood pressure this time this is being supported by vasopressors and we will avoid his carvedilol at this point in time to try to reinstitute it soon as possible likewise we are holding his amlodipine holding antihypertensives as above. (3) Catheter-associated urinary tract infection: Plan: Patient is a previous history of a CAUTI his previous history of E. coli, [place] ER, Enterococcus plus multiple cultures consistent with Monalisa Urine cultures are obtained and patient started on broad-spectrum antibiotics of Zosyn Patient's tamsulosin is on hold (4) Paroxysmal atrial fibrillation: Plan: Patient takes carvedilol plus apixaban. resumed apixaban, (5) COVID-19: Plan: Patient was COVID-positive September 19. He remains COVID-positive today rechecking infection control whether he needs to be in respiratory isolation at this time (6) CAD (coronary artery disease): Plan: Patient on the above listed carvedilol and isosorbide these are currently on ho ld (7) Dementia: Plan: Dementia depression the patient takes Memantine, donepezil plus bupropion's are currently on hold with a severely ill state Plan Patient typically is on Synthroid 112 mcg, last checked in [place] was replete Admission and Anticipated Discharge Date Admission Date: November 04, 2021 Subjective Patient extubated, NO overnight events. Patient states he is comfortable. Review of Systems Review of Systems: All systems reviewed & are unremarkable except as noted in HPI & below Physical Exam Physical Exam: Lying in bed with oxymask Vital signs as documented. Head exam is normocephalic atraumatic Neck is without JVD, thyromegaly, or carotid bruits. Lungs are coarse bilaterally Cardiac exam, Rhythm is regular.. No murmurs, rubs or gallops. Abdominal exam reveals hypoactive bowel sounds, distented tympanitic and painful Extremities are trace edematous and both pedal pulses are present Results & Data Results & Data ([facility]) Vital Signs (Past 12 Hours) Vital Signs Temp Pulse Pulse Resp BP Pulse Ox Pulse Ox 11/06/21 23:28 93 H 11/06/21 22:43 11/06/21 22:00 91 H 13 96 11/06/21 22:00 136/81 11/06/21 21:00 108 H 20 95 11/06/21 21:00 119/84 11/06/21 20:00 99 H 19 96 11/06/21 20:00 36.6 C 144/99 H 11/06/21 20:05 94 H 18 98 11/06/21 19:00 96 H 14 92 11/06/21 19:00 131/74 11/06/21 18:00 11/06/21 18:00 11/06/21 18:00 90 14 97 11/06/21 18:00 134/85 11/06/21 17:00 99 H 17 96 11/06/21 17:00 141/98 H 11/06/21 16:04 127 H 16 89 L 11/06/21 16:04 140/88 11/06/21 16:00 128 H 22 91 11/06/21 15:49 91 H 12 94 11/06/21 15:01 78 16 98 11/06/21 15:00 77 22 98 11/06/21 14:00 102 H 22 97 11/06/21 13:00 36.8 C 96 H 16 90 11/06/21 13:00 143/87 H 11/06/21 12:49 36.8 C 97 H 19 99 11/06/21 12:49 164/90 H 11/06/21 12:00 36.6 C 97 H 19 98 11/06/21 15:53 36.8 C 11/06/21 12:00 37 C 11/06/21 16:00 127 H 11/06/21 15:00 97 11/06/21 15:16 79 17 99 O2 Del Method O2 Del Method O2 Flow Rate O2 Flow Rate 11/06/21 23:28 11/06/21 22:43 Nasal Cannula 2 11/06/21 22:00 11/06/21 22:00 11/06/21 21:00 11/06/21 21:00 11/06/21 20:00 11/06/21 20:00 11/06/21 20:05 Nasal Cannula 3 11/06/21 19:00 11/06/21 19:00 11/06/21 18:00 Nasal Cannula 3 11/06/21 18:00 Nasal Cannula 3 11/06/21 18:00 11/06/21 18:00 11/06/21 17:00 11/06/21 17:00 11/06/21 16:04 11/06/21 16:04 11/06/21 16:00 11/06/21 15:49 11/06/21 15:01 11/06/21 15:00 11/06/21 14:00 11/06/21 13:00 11/06/21 13:00 11/06/21 12:49 11/06/21 12:49 11/06/21 12:00 11/06/21 15:53 11/06/21 12:00 11/06/21 16:00 11/06/21 15:00 Oxymask 6 11/06/21 15:16 Oxymask 3 PG Care Time/CCT Total # of Minutes Spent Total Time Spent with Patient: Total time spent is greater than 50% in coordination of care (as documented) at patient's floor/unit and/or counseling patient: Coding Level of Care Code 06169 Subseq Hosp Care Lvl 3 Diagnoses Acute respiratory failure with hypoxia J96.01 Chronic diastolic heart failure I50.32 Catheter-associated urinary tract infection T83.511A; N39.0 Paroxysmal atrial fibrillation I48.0 COVID-19 U07.1 CAD (coronary artery disease) I25.10 Dementia F03.90
[2021-11-07] MEDS: NORMOSOL-R 1,000 ML IV SCH (00:53)
[2021-11-07 05:09] LABS: Hematocrit (blood only) 32.6 % (40.1-51.0); Hemoglobin 10.8 g/dl (14.0-18.0); Mean Corpuscular Hemoglobin 31.1 pg (25.0-34.0); Mean Corpuscular Hgb Conc 33.1 g/dL (32.0-36.0); Mean Corpuscular Volume 93.9 fL (80.0-100.0); Platelet Count 160 K/uL (130-400); RDW Coefficient of Variation 16.6 % (11.5-14.5); Red Blood Count 3.47 M/uL (4.63-6.08); White Blood Count 13.13 K/ul (4.8-10.8)
[2021-11-07 05:23] LABS: INR 1.1 (0.9-1.1); Partial Thromboplastin Ratio 1.2; Partial Thromboplastin Time 32.9 Seconds (21.0-31.0); Prothrombin Time 11.8 Seconds (9.0-12.0)
[2021-11-07] MEDS ORDERED: LACTATED RINGER'S 250 ML IV ONE (05:31)
[2021-11-07] MEDS ORDERED: MAGNESIUM SULFATE / D5W 1 GM/100 ML BAG IV ONE (05:32)
[2021-11-07 05:42] LABS: BUN Creatinine Ratio 21.6 (10-20); Calcium 7.1 mg/dl (8.5-10.1); Creatinine Clr Calc Pharmacy 28.2 ml/min; Est GFR (African American) 32.4 ml/min; Magnesium 2.4 mg/dl (1.7-2.4); Phosphorus 3.6 mg/dl (2.5-4.9)
[2021-11-07 06:21] LABS: Basophils # (auto) 0.01 K/uL (0-0.2); Basophils % (auto) 0.1 %; Echinocytes 2+; Eosinophils # (auto) 0.01 K/uL (0-0.50); Eosinophils % (auto) 0.1 %; Immature Granulocytes # (auto) 0.15 K/uL (0.00-0.02); Immature Granulocytes % (auto) 1.1 %; Lymphocytes # (auto) 0.58 K/uL (1.2-3.4); Lymphocytes % (auto) 4.4 %; Monocytes # (auto) 0.44 K/uL (0.24-0.82); Monocytes % (auto) 3.4 %; Neutrophils # (auto) 11.94 K/uL (1.4-6.5); Neutrophils % (auto) 90.9 %; Polychromasia 1+
[2021-11-07] MEDS: INSULIN ASPART PER UNIT SC SCH ×3 (06:22→17:39)
[2021-11-07] MEDS: ALBUT/IPRATROP 3MG/0.5MG NEB 3 ML VIAL INH SCH ×4 (07:13→19:06)
[2021-11-07] MEDS: CEFEPIME 1,000 MG in SYRINGE 0 ML IV SCH ×2 (08:58→21:40)
[2021-11-07] MEDS: FAMOTIDINE 20 MG TAB PO SCH (08:59)
[2021-11-07] MEDS: POLYETHYLENE (MIRALAX) 17 GM PACK PO SCH (08:59)
[2021-11-07] MEDS: APIXABAN 2.5 MG TAB PO SCH ×2 (08:59→21:41)
--- NOTE | 2021-11-07 10:17 | Critical Care Progress Note ---
Date of Service November 07, 2021 Assessment & Plan (1) Septic shock: Plan: Neuro - Dementiacontinue donepezil when appropriate Cardiac - Shock resolved -Last echo 09/30 with EF 45 to 50%, severe Proximal atrial fibrillationhold antihypertensives -Restart apixaban hypertension -Restart amlodipine, carvedilol and isosorbide Respiratory - Acute hypoxic respiratory failureresolved -PE unlikely given patient anticoagulated on apixaban -Probable aspiration event GI - Constipation/stercoral colitis: Status post digital disimpaction -BM today PPI: Convert to home regimen Pepcid RENAL/LYTES - Acute kidney injury on CKD stage IIIimproving -Bilateral ureteral stents with suprapubic Michel: All changed during this hospitalization Pseudomonas in urine -Single agent cefepime day 4 of 14 given complicated urinary tract infection -Discontinue supplemental fluids - Hydronephrosisundergoing bilateral ureteral stent exchange per urology. Patient does have suprapubic cath and will monitor strict I's and O's ENDO - ICU hyperglycemic protocol Hypothyroidcontinue Synthroid HEME - H&H stable, monitor routine CBCs ID - Sepsisurinary source. Patient with aspiration and urinalysis suggestive of UTI -Blood culture and urine culture reviewed. -Continue cefepime, discontinue all additional anti-infectives -Influenza negative -Nasal MRSA negative LINES/IV ACCESS - Peripheral IVs DVT PROPHYLAXIS - SCDs, restart apixaban -Discontinue heparin Disposition: Discussed with hospitalist medicine stable for downgrade out of ICU (2) Bowel obstruction: (3) Aspiration pneumonia: (4) Hydronephrosis: (5) Emphysematous pyelitis: (6) Aortic stenosis: (7) Acute respiratory failure with hypoxia: (8) Chronic suprapubic catheter: (9) Chronic diastolic heart failure: (10) Hypothyroidism: (11) History of UT (myocardial infarction): (12) Dementia: (13) CAD (coronary artery disease): (14) AICD (automatic cardioverter/defibrillator) present: (15) Paroxysmal atrial fibrillation: (16) Stage 3b chronic kidney disease: Admission and Anticipated Discharge Date Admission Date: November 04, 2021 Subjective No overnight events Physical Exam Physical Exam: General: Alert. nontoxic. Skin: Warm, dry, Head: Atraumatic Ears, nose, mouth and throat: airway patent Cardiovascular: Normal peripheral perfusion Respiratory: no respiratory distress Gastrointestinal: Non distended Musculoskeletal: No deformity Results & Data Results & Data ([facility]) Vital Signs (Past 12 Hours) Vital Signs Temp Pulse Pulse Resp BP Pulse Ox O2 Del Method 11/07/21 07:14 118 H 17 95 Nasal Cannula 11/07/21 07:00 128 H 9 L 96 11/07/21 06:00 135 H 13 94 11/07/21 05:00 129 H 14 88 L 11/07/21 05:00 124/82 11/07/21 04:01 132 H 9 L 90 11/07/21 04:01 105/77 11/07/21 04:00 127 H 13 94 11/07/21 03:00 137 H 14 96 11/07/21 03:00 36.4 C L 154/113 H 11/07/21 02:03 78 12 90 11/07/21 01:00 88 12 99 11/07/21 01:00 136/74 11/07/21 00:00 88 15 98 11/07/21 00:00 141/76 H 11/06/21 23:01 36.5 C 141/78 H 11/06/21 23:01 84 16 98 11/06/21 23:00 88 13 99 11/06/21 23:55 93 H 11/06/21 23:28 93 H 11/06/21 22:43 Nasal Cannula O2 Flow Rate 11/07/21 07:14 2 11/07/21 07:00 11/07/21 06:00 11/07/21 05:00 11/07/21 05:00 11/07/21 04:01 11/07/21 04:01 11/07/21 04:00 11/07/21 03:00 11/07/21 03:00 11/07/21 02:03 11/07/21 01:00 11/07/21 01:00 11/07/21 00:00 11/07/21 00:00 11/06/21 23:01 11/06/21 23:01 11/06/21 23:00 11/06/21 23:55 11/06/21 23:28 11/06/21 22:43 2 Coding Level of Care Code 27911 Subseq Hosp Care Lv 1 Diagnoses Septic shock A41.9; R65.21 Bowel obstruction K56.609 Aspiration pneumonia J69.0 Hydronephrosis N13.30 Emphysematous pyelitis N12 Aortic stenosis I35.0 Acute respiratory failure with hypoxia J96.01 Chronic suprapubic catheter Z93.59 Chronic diastolic heart failure I50.32 Hypothyroidism E03.9 Hypothyroidism type: acquired History of UT (myocardial infarction) I25.2 Dementia F03.90 CAD (coronary artery disease) I25.10 AICD (automatic cardioverter/defibrillator) present Z95.810 Paroxysmal atrial fibrillation I48.0 Stage 3b chronic kidney disease N18.32 (1) Hypothyroidism Hypothyroidism type: acquired Qualified Code(s): E03.9 - Hypothyroidism, unspecified
[2021-11-07] MEDS: POTASSIUM CHLORIDE CRTAB 20 MEQ TABCR PO SCH ×2 (11:36→21:42)
[2021-11-07] MEDS: amLODIPine BESYLATE 5 MG TAB PO SCH (11:50)
[2021-11-07] MEDS ORDERED: carvediloL 3.125 MG TAB PO ONE (13:35)
--- NOTE | 2021-11-07 14:11 | Hospitalist Progress Note ---
Date of Service November 07, 2021 Assessment & Plan (1) Acute respiratory failure with hypoxia: Plan: Acute hypoxic respiratory failure 2/2 sepsis Requiring pressors on admission, now weaned Has been weaned from intubation, through oxime mask, now on 2 L nasal cannula and continuing to improve Continue treatment of urosepsis as below Continue to wean as tolerated, improving 11/07 (2) Chronic diastolic heart failure: Plan: History of systolic and diastolic heart failure EF 09/2021: EF 45-50% Weaned from vasopressors Hemodynamically stable but with A. fib and tachycardia, carvedilol restarted Hold amlodipine for borderline blood pressure while restarting carvedilol (3) Catheter-associated urinary tract infection: Plan: Catheter associated UTI Past history of E. coli, Enterococcus, candidal UTIs Initially on broad-spectrum treatment with Zosyn subsequently switched to cefepime UC positive for Pseudomonas aeruginosa, second culture positive for multiple organisms at high counts. Intermittent positive for Monalisa, clinically improving with Pseudomonas coverage. Continue cefepime. Tamsulosin held in the setting of hypotension (4) Paroxysmal atrial fibrillation: Plan: Continue apixaban Carvedilol resumed (5) COVID-19: Plan: Patient was COVID-positive September 19, (6) CAD (coronary artery disease): Plan: Beta-christina as noted, isosorbide as noted, anticoagulated as noted. Is not on aspirin or Plavix [employer]. (7) Dementia: Plan: Continue memantine, donepezil, bupropion if remaining stable and downgrade Plan Continue Synthroid Admission and Anticipated Discharge Date Admission Date: November 04, 2021 Subjective Seen at bedside. Denies fever, chills, sweats, lightheadedness, dizziness. Reports she feels okay, although not much different from yesterday. Denies palpitations. Denies dysuria. Endorses fatigue. Review of Systems Review of Systems: All systems reviewed & are unremarkable except as noted in Subjective Physical Exam Physical Exam: General: A&Ox3. NAD. Cooperative. HEENT: Atraumatic, normocephalic. On 2 L nasal cannula. Vision and hearing grossly intact. Pulm: CTAB A&P. -wheezes, -rales, -rhonchi. Symmetrical chest rise. No increase in work of breathing. No respiratory distress. Cardiac: IR IR, tachycardic. Radial pulses intact and symmetrical. Abdominal: Nontender, nondistended, soft. BS present. Results & Data Results & Data ([facility]) Vital Signs (Past 12 Hours) Vital Signs Temp Pulse Pulse Resp BP Pulse Ox O2 Del Method 11/07/21 13:01 125 H 14 91 11/07/21 13:01 115/91 11/07/21 13:00 117 H 4 L 94 11/07/21 12:00 133 H 13 98 11/07/21 12:00 133/90 11/07/21 11:01 126 H 0 L 94 11/07/21 11:01 123/80 11/07/21 11:00 131 H 8 L 96 11/07/21 10:00 131 H 12 94 11/07/21 10:00 127/82 11/07/21 09:01 124 H 14 95 11/07/21 09:01 116/73 11/07/21 09:00 113 H 20 97 11/07/21 08:01 133 H 16 93 11/07/21 08:01 158/89 H 11/07/21 08:00 129 H 13 93 11/07/21 07:48 136 H 13 97 11/07/21 07:48 99/77 L 11/07/21 10:43 128 H 17 95 Nasal Cannula 11/07/21 07:14 118 H 17 95 Nasal Cannula 11/07/21 07:00 128 H 9 L 96 11/07/21 06:00 135 H 13 94 11/07/21 05:00 129 H 14 88 L 11/07/21 05:00 124/82 11/07/21 04:01 132 H 9 L 90 11/07/21 04:01 105/77 11/07/21 04:00 127 H 13 94 11/07/21 03:00 137 H 14 96 11/07/21 03:00 36.4 C L 154/113 H 11/07/21 02:03 78 12 90 O2 Flow Rate 11/07/21 13:01 11/07/21 13:01 11/07/21 13:00 11/07/21 12:00 11/07/21 12:00 11/07/21 11:01 11/07/21 11:01 11/07/21 11:00 11/07/21 10:00 11/07/21 10:00 11/07/21 09:01 11/07/21 09:01 11/07/21 09:00 11/07/21 08:01 11/07/21 08:01 11/07/21 08:00 11/07/21 07:48 11/07/21 07:48 11/07/21 10:43 2 11/07/21 07:14 2 11/07/21 07:00 11/07/21 06:00 11/07/21 05:00 11/07/21 05:00 11/07/21 04:01 11/07/21 04:01 11/07/21 04:00 11/07/21 03:00 11/07/21 03:00 11/07/21 02:03 PG Care Time/CCT Total # of Minutes Spent Total Time Spent with Patient: Total time spent is greater than 50% in coordination of care (as documented) at patient's floor/unit and/or counseling patient: Coding Level of Care Code 95305 Subseq Hosp Care Lvl 3 Diagnoses Acute respiratory failure with hypoxia J96.01 Chronic diastolic heart failure I50.32 Catheter-associated urinary tract infection T83.511A; N39.0 Paroxysmal atrial fibrillation I48.0 COVID-19 U07.1 CAD (coronary artery disease) I25.10 Dementia F03.90
[2021-11-07] MEDS ORDERED: METOPROLOL TARTRATE 1 MG/ML VIAL IV STA (15:16)
[2021-11-07] MEDS: carvediloL 3.125 MG TAB PO SCH (17:23)
[2021-11-07] MEDS: LEVOTHYROXINE SODIUM 112 MCG TABLET PO SCH (21:40)
[2021-11-07] MEDS: SENNA 8.6 MG TAB PO SCH (21:41)
[2021-11-07] MEDS ORDERED: Nursing to Pharmacy Communication SCH (21:45)
[2021-11-08 05:26] LABS: Basophils # (auto) 0.01 K/uL (0-0.2); Basophils % (auto) 0.1 %; Eosinophils # (auto) 0.02 K/uL (0-0.50); Eosinophils % (auto) 0.2 %; Hemoglobin 10.6 g/dl (14.0-18.0); Immature Granulocytes # (auto) 0.13 K/uL (0.00-0.02); Immature Granulocytes % (auto) 1.4 %; Lymphocytes # (auto) 0.63 K/uL (1.2-3.4); Lymphocytes % (auto) 6.6 %; Mean Corpuscular Hemoglobin 30.6 pg (25.0-34.0); Mean Corpuscular Hgb Conc 32.1 g/dL (32.0-36.0); Mean Corpuscular Volume 95.4 fL (80.0-100.0); Mean Platelet Volume 10.3 fL (9.4-12.4); Monocytes # (auto) 0.41 K/uL (0.24-0.82); Monocytes % (auto) 4.3 %; Neutrophils # (auto) 8.34 K/uL (1.4-6.5); Neutrophils % (auto) 87.4 %; Platelet Count 157 K/uL (130-400); RDW Coefficient of Variation 16.5 % (11.5-14.5); RDW Standard Deviation 57.8 fL (36.4-46.3); Red Blood Count 3.46 M/uL (4.63-6.08); White Blood Count 9.54 K/ul (4.8-10.8)
[2021-11-08 05:56] LABS: BUN Creatinine Ratio 19.8 (10-20); Calcium 7.7 mg/dl (8.5-10.1); Est GFR (African American) 37.9 ml/min; Est GFR (Non-African American) 32.7 ml/min; Potassium 3.6 mmol/L (3.5-5.1)
[2021-11-08] MEDS: ALBUT/IPRATROP 3MG/0.5MG NEB 3 ML VIAL INH SCH ×4 (07:09→19:53)
[2021-11-08] MEDS: carvediloL 3.125 MG TAB PO SCH (08:11)
[2021-11-08] MEDS: POLYETHYLENE (MIRALAX) 17 GM PACK PO SCH (08:11)
[2021-11-08] MEDS: APIXABAN 2.5 MG TAB PO SCH ×2 (08:12→21:07)
[2021-11-08] MEDS: FAMOTIDINE 20 MG TAB PO SCH (08:12)
[2021-11-08] MEDS: ISOSORBIDE MONO EXTENDED REL 30 MG TABCR PO SCH (08:12)
[2021-11-08] MEDS: CEFEPIME 1,000 MG in SYRINGE 0 ML IV SCH (08:13)
[2021-11-08] MEDS: INSULIN ASPART PER UNIT SC SCH ×4 (08:29→21:09)
[2021-11-08] MEDS ORDERED: METOPROLOL TARTRATE 1 MG/ML VIAL IV ONE (08:41)
[2021-11-08] MEDS ORDERED: METOPROLOL TARTRATE 1 MG/ML VIAL IV STA ×2 (10:59→11:04)
--- NOTE | 2021-11-08 12:36 | Hospitalist Progress Note ---
Date of Service November 08, 2021 Assessment & Plan (1) Acute respiratory failure with hypoxia: Plan: Acute hypoxic respiratory failure 2/2 sepsis Requiring pressors on admission, now weaned Has been weaned from intubation, through oxime mask, now on 2 L nasal cannula and continuing to improve Continue treatment of urosepsis as below Continue to wean as tolerated, goal room air (2) Chronic diastolic heart failure: Plan: History of systolic and diastolic heart failure EF 09/2021: EF 45-50% Weaned from vasopressors Hemodynamically stable but with A. fib and tachycardia Carvedilol was restarted yesterday, patient with suboptimal control of this and mild hypotension around dosing Given low systolic BPs and poor rate control converted to metoprolol twice daily and additional IV dose given. Rate improving. If adequate rate control over next 24 hours, anticipate can progress towards discharge/placement (3) Catheter-associated urinary tract infection: Plan: Catheter associated UTI Past history of E. coli, Enterococcus, candidal UTIs Initially on broad-spectrum treatment with Zosyn subsequently switched to cefepime UC positive for Pseudomonas aeruginosa, second culture positive for multiple organisms at high counts. Intermittent positive for Monalisa, clinically improving with Pseudomonas coverage. Continue cefepime. Tamsulosin held in the setting of hypotension (4) Paroxysmal atrial fibrillation: Plan: Continue apixaban Carvedilol resumed (5) COVID-19: Plan: Patient was COVID-positive September 19, (6) CAD (coronary artery disease): Plan: Beta-christina as noted, isosorbide as noted, anticoagulated as noted. 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 (7) Dementia: Plan: Continue memantine, donepezil, bupropion if remaining stable and downgrade Plan Continue Synthroid Admission and Anticipated Discharge Date Admission Date: November 04, 2021 Subjective Seen at bedside. No change from yesterday, overall feels "okay "heart rate continues to be in 130s on telemetry overnight, briefly improved following carvedilol and 1 dose of metoprolol but again rising in morning. Patient denies fever, chills, sweats, chest pain, chest pressure, lightheadedness, dizziness, dysuria Review of Systems Review of Systems: All systems reviewed & are unremarkable except as noted in Subjective Physical Exam Physical Exam: General: A&Ox3. NAD. Cooperative. HEENT: Atraumatic, normocephalic. On 2 L nasal cannula. Vision and hearing grossly intact. Pulm: CTAB A&P. -wheezes, -rales, -rhonchi. Symmetrical chest rise. No increase in work of breathing. No respiratory distress. Cardiac: IR IR, tachycardic. Radial pulses intact and symmetrical. Abdominal: Nontender, nondistended, soft. BS present. Results & Data Results & Data ([facility]) Vital Signs (Past 12 Hours) Vital Signs Temp Pulse Pulse Resp BP Pulse Ox O2 Del Method 11/08/21 11:00 103 H 18 93 11/08/21 10:23 130 H 14 95 11/08/21 10:23 117/90 11/08/21 10:43 132 H 117/90 11/08/21 10:00 128 H 19 11/08/21 09:50 124 H 17 11/08/21 09:50 127/86 11/08/21 09:00 119 H 17 11/08/21 08:39 132/104 H 11/08/21 08:39 131 H 18 11/08/21 08:00 138 H 29 H 11/08/21 07:00 134 H 14 11/08/21 07:00 124/84 92 Nasal Cannula 11/08/21 08:00 36.7 C 11/08/21 08:43 135 H 132/104 H 11/08/21 08:00 132 H 11/08/21 07:40 Nasal Cannula 11/08/21 07:10 129 H 17 95 Nasal Cannula 11/08/21 06:00 130 H 17 11/08/21 05:00 132 H 16 11/08/21 04:00 136 H 16 11/08/21 04:00 36.6 C 104/76 11/08/21 03:00 131 H 14 11/08/21 02:00 132 H 14 11/08/21 01:00 120 H 15 90 O2 Flow Rate 11/08/21 11:00 11/08/21 10:23 11/08/21 10:23 11/08/21 10:43 11/08/21 10:00 11/08/21 09:50 11/08/21 09:50 11/08/21 09:00 11/08/21 08:39 11/08/21 08:39 11/08/21 08:00 11/08/21 07:00 11/08/21 07:00 2 11/08/21 08:00 11/08/21 08:43 11/08/21 08:00 11/08/21 07:40 2 11/08/21 07:10 2 11/08/21 06:00 11/08/21 05:00 11/08/21 04:00 11/08/21 04:00 11/08/21 03:00 11/08/21 02:00 11/08/21 01:00 PG Care Time/CCT Total # of Minutes Spent Total Time Spent with Patient: Total time spent is greater than 50% in coordination of care (as documented) at patient's floor/unit and/or counseling patient: Coding Level of Care Code 89602 Subseq Hosp Care Lvl 2 Diagnoses Acute respiratory failure with hypoxia J96.01 Chronic diastolic heart failure I50.32 Catheter-associated urinary tract infection T83.511A; N39.0 Paroxysmal atrial fibrillation I48.0 COVID-19 U07.1 CAD (coronary artery disease) I25.10 Dementia F03.90
[2021-11-08] MEDS: CARBOHYDRATES FOR HYPOGLYCEMIA PO PRN ×2 (16:02→16:17)
[2021-11-08] MEDS ORDERED: METOPROLOL TARTRATE 25 MG TAB PO ONE (16:11)
[2021-11-08] MEDS ORDERED: SODIUM CHLOR 0.45% + 20MEQ KCL 20 MEQ/1,000 ML BAG IV SCH (16:30)
[2021-11-08] MEDS ORDERED: D5W AND 1/2NSS + 20MEQ KCL 20 MEQ/1,000 ML BAG IV SCH (16:45)
[2021-11-08] MEDS: SODIUM CHLOR 0.45% + 20MEQ KCL 20 MEQ/1,000 ML BAG IV SCH (18:43)
--- NOTE | 2021-11-08 19:57 | Communication Note ---
Date of Service: November 08, 2021 Notified by respiratory Duoneb held because of tachycardia >130. I called telemetry and patient is 110s-120s persistently all day. Rhythm is afib. K 3.6. Cr 1.8s noted. Already received potassium in IV fluids earlier in day. Has Mg ordered in AM. Changing Duoneb QIDR to Xopenex/Atrovent TIDR. Informed of HR 120s-130s at 4AM. IV Lopressor 2.5x1, given severe aortic stenosis on echo. 6:30 update: rates are 120s, 110s.
[2021-11-08] MEDS ORDERED: POTASSIUM CHLORIDE CRTAB 20 MEQ TABCR PO STA (19:59)
[2021-11-08] MEDS ORDERED: XOPENEX/ATROVENT 0.63mg/0.5MG NEB COMBO NEB SCH (20:05)
[2021-11-08] MEDS: LEVALBUTEROL HCL 0.63 MG/3 ML NEB NEB SCH (20:31)
[2021-11-08] MEDS: IPRATROPIUM BROMIDE NEB SOLN 0.02% 2.5 ML VIAL INH SCH (20:31)
[2021-11-08] MEDS ORDERED: METOPROLOL TARTRATE 25 MG TAB PO SCH ×2 (21:00)
[2021-11-08] MEDS: SENNA 8.6 MG TAB PO SCH (21:06)
[2021-11-08] MEDS: LEVOTHYROXINE SODIUM 112 MCG TABLET PO SCH (21:07)
[2021-11-08] MEDS: CEFEPIME 2,000 MG in SYRINGE 0 ML IV SCH (21:53)
[2021-11-09] MEDS: SODIUM CHLOR 0.45% + 20MEQ KCL 20 MEQ/1,000 ML BAG IV SCH (03:41)
[2021-11-09] MEDS ORDERED: METOPROLOL TARTRATE 1 MG/ML VIAL IV STA (03:59)
[2021-11-09 06:40] LABS: Basophils # (auto) 0.01 K/uL (0-0.2); Basophils % (auto) 0.1 %; Eosinophils # (auto) 0.03 K/uL (0-0.50); Eosinophils % (auto) 0.4 %; Hematocrit (blood only) 32.8 % (40.1-51.0); Hemoglobin 10.4 g/dl (14.0-18.0); Immature Granulocytes # (auto) 0.13 K/uL (0.00-0.02); Immature Granulocytes % (auto) 1.5 %; Lymphocytes # (auto) 1.05 K/uL (1.2-3.4); Lymphocytes % (auto) 12.3 %; Mean Corpuscular Hgb Conc 31.7 g/dL (32.0-36.0); Mean Corpuscular Volume 97.6 fL (80.0-100.0); Mean Platelet Volume 10.2 fL (9.4-12.4); Monocytes # (auto) 0.59 K/uL (0.24-0.82); Monocytes % (auto) 6.9 %; Neutrophils % (auto) 78.8 %; Platelet Count 164 K/uL (130-400); RDW Coefficient of Variation 16.7 % (11.5-14.5); RDW Standard Deviation 59.7 fL (36.4-46.3); Red Blood Count 3.36 M/uL (4.63-6.08); White Blood Count 8.51 K/ul (4.8-10.8)
[2021-11-09] MEDS: LEVALBUTEROL HCL 0.63 MG/3 ML NEB NEB SCH ×3 (07:16→19:30)
[2021-11-09] MEDS: IPRATROPIUM BROMIDE NEB SOLN 0.02% 2.5 ML VIAL INH SCH ×3 (07:16→19:30)
[2021-11-09 07:47] LABS: BUN Creatinine Ratio 20.7 (10-20); Creatinine Clr Calc Pharmacy 37.6 ml/min; Est GFR (African American) 44.5 ml/min; Est GFR (Non-African American) 38.4 ml/min; Magnesium 2.1 mg/dl (1.7-2.4); Potassium 4.2 mmol/L (3.5-5.1)
[2021-11-09] MEDS: METOPROLOL TARTRATE 25 MG TAB PO SCH ×2 (08:45→12:36)
[2021-11-09] MEDS: APIXABAN 2.5 MG TAB PO SCH ×2 (08:45→20:48)
[2021-11-09] MEDS: POLYETHYLENE (MIRALAX) 17 GM PACK PO SCH (08:45)
[2021-11-09] MEDS: ISOSORBIDE MONO EXTENDED REL 30 MG TABCR PO SCH (08:45)
[2021-11-09] MEDS: FAMOTIDINE 20 MG TAB PO SCH (08:45)
[2021-11-09] MEDS: CEFEPIME 2,000 MG in SYRINGE 0 ML IV SCH ×2 (08:45→20:54)
[2021-11-09] MEDS: INSULIN ASPART PER UNIT SC SCH ×4 (10:24→19:35)
[2021-11-09] MEDS: METOPROLOL TARTRATE 1 MG/ML VIAL IV PRN (11:38)
--- NOTE | 2021-11-09 16:17 | Hospitalist Progress Note ---
Date of Service November 09, 2021 Assessment & Plan (1) Acute respiratory failure with hypoxia: Plan: Acute hypoxic respiratory failure 2/2 sepsis Requiring pressors on admission, now weaned Has been weaned from intubation, through oxime mask, now on 2 L nasal cannula and continuing to improve Continue treatment of urosepsis as below Continue to wean as tolerated, goal room air (2) Chronic diastolic heart failure: Plan: History of systolic and diastolic heart failure EF 09/2021: EF 45-50% Weaned from vasopressors Hemodynamically stable but with A. fib and tachycardia Carvedilol was restarted, patient with suboptimal control of this and mild hypotension around dosing Given low systolic BPs and poor rate control converted to metoprolol twice daily and additional IV dose given. Rate improving. If adequate rate control over next 24 hours, anticipate can progress towards discharge/placement * Metoprolol tartrate 25 mg dose increased to 3 times daily. Also received one-time dose of IV Lopressor. Plan to monitor overnight and further titrate as needed for optimal rate control. (3) Catheter-associated urinary tract infection: Plan: Catheter associated UTI Past history of E. coli, Enterococcus, candidal UTIs Initially on broad-spectrum treatment with Zosyn subsequently switched to cefepime UC positive for Pseudomonas aeruginosa, second culture positive for multiple organisms at high counts. Intermittent positive for Monalisa, clinically improving with Pseudomonas coverage. Continue cefepime. Tamsulosin held in the setting of hypotension (4) Paroxysmal atrial fibrillation: Plan: Continue apixaban Now on metoprolol (5) COVID-19: Plan: Patient was COVID-positive September 19, (6) CAD (coronary artery disease): Plan: Beta-christina as noted, isosorbide as noted, anticoagulated as noted. Is not on aspirin or Plavix [employer]. (7) Dementia: Plan: Continue memantine, donepezil, bupropion if remaining stable and downgrade Plan Continue Synthroid Admission and Anticipated Discharge Date Admission Date: November 04, 2021 Supervising Physician Co-Signing Physician Notes I personally examined the patient and verified all delaney points of history and exam, discussed case, and agree with decision making with Dr Ag No meaningful HPI or review of systems obtainable. Appears to be comfortable, makes eye contact and follows simple commands. Vitals noted, in general he is awake and alert pleasant no distress. HEENT normocephalic atraumatic mucous membranes moist. Lungs are clear without notable rales rhonchi or wheezes moderate spontaneous effort, difficult exam. Cardio is irregularly irregular and somewhat tachycardic. Skin shows no rashes pallor or icterus. Sepsisoverall seems to be improving. Continue current antibiotics A. fib/RVRrate is not controlled, the rest of his clinical picture is improvingso therefore less likely to be a reactive tachycardiaincrease beta- blockade and follow. anticoagulated Subjective Per telemetry, patient in uncontrolled A. fib with rates in the 120s and 130s. Per nursing, he received 1 dose of IV Lopressor overnight, which only briefly lowered his heart rate. Patient asleep upon arrival this morning. He appears only oriented to self and discharge, can only provide limited subjective interval HPI. He denies palpitations, shortness of breath, chest pain, or drowsiness. Review of Systems Review of Systems: All systems reviewed & are unremarkable except as noted in HPI & below Physical Exam Physical Exam: General: Frail-appearing old man in no acute distress. HEENT: Normocephalic, atraumatic. EOM intact. Good conjugate gaze. Nares patent. Moist mucosal membranes. Neck: Supple. No lymphadenopathy. Normal ROM. CV: Tachycardic, regular rhythm. No murmurs gallops or rubs. Respiratory: Poor respiratory effort. Bilateral crackles heard at the bases and midlung (R >L midlung). No rhonchi, or wheezes. Abdomen: Soft, large abdomen. No bruits heard on auscultation. No tenderness to deep palpation. Extremities: Capillary refill <2 sec. 2+ dp equal bilaterally. No pedal edema. Neuro: Alert but oriented only to self Skin: Clean, dry, and intact. Some bruising at the elbows, flank, and torso. No erythema or cellulitis noted. Results & Data Results & Data ([facility]) Vital Signs (Past 12 Hours) Vital Signs Temp Pulse Pulse Resp BP BP BP 11/09/21 15:45 36.5 C 123 H 18 136/97 11/09/21 12:52 126 H 20 11/09/21 11:38 126 H 148/92 H 11/09/21 11:17 36.8 C 127 H 18 113/76 11/09/21 08:00 11/09/21 08:00 126 H 11/09/21 07:59 36.5 C 123 H 20 159/84 H 11/09/21 07:16 122 H 20 11/09/21 04:09 126 H 148/92 H Pulse Ox O2 Del Method O2 Flow Rate 11/09/21 15:45 97 Nasal Cannula 2 11/09/21 12:52 98 Nasal Cannula 1 11/09/21 11:38 11/09/21 11:17 94 Nasal Cannula 2 11/09/21 08:00 Nasal Cannula 2 11/09/21 08:00 11/09/21 07:59 91 Nasal Cannula 2 11/09/21 07:16 93 Nasal Cannula 2 11/09/21 04:09 Resident Activity Tracking Resident Involvement: Resident Care Provided Care Provided: Adult Hospital Medicine
[2021-11-09] MEDS ORDERED: METOPROLOL TARTRATE 1 MG/ML VIAL IV ONE (17:01)
--- NOTE | 2021-11-09 17:05 | Billing Data ---
Date of Service November 09, 2021 Coding Level of Care Code 34456 Subseq Hosp Care Lvl 3
[2021-11-09] MEDS: LEVOTHYROXINE SODIUM 112 MCG TABLET PO SCH (20:48)
[2021-11-09] MEDS: SENNA 8.6 MG TAB PO SCH (20:48)
[2021-11-09] MEDS: METOPROLOL TARTRATE 50 MG TAB PO SCH (20:48)
[2021-11-10] MEDS: IPRATROPIUM BROMIDE NEB SOLN 0.02% 2.5 ML VIAL INH SCH (07:21)
[2021-11-10] MEDS: LEVALBUTEROL HCL 0.63 MG/3 ML NEB NEB SCH (07:21)
[2021-11-10 07:32] LABS: BUN Creatinine Ratio 19.4 (10-20); Calcium 7.8 mg/dl (8.5-10.1); Creatinine Clr Calc Pharmacy 34.3 ml/min; Est GFR (African American) 39.7 ml/min; Est GFR (Non-African American) 34.3 ml/min; Potassium 3.8 mmol/L (3.5-5.1)
[2021-11-10] MEDS: APIXABAN 2.5 MG TAB PO SCH ×2 (07:51→20:41)
[2021-11-10] MEDS: METOPROLOL TARTRATE 50 MG TAB PO SCH ×2 (07:51→14:51)
[2021-11-10] MEDS: ISOSORBIDE MONO EXTENDED REL 30 MG TABCR PO SCH (07:52)
[2021-11-10] MEDS: FAMOTIDINE 20 MG TAB PO SCH (07:52)
[2021-11-10] MEDS: CEFEPIME 2,000 MG in SYRINGE 0 ML IV SCH ×2 (08:06→20:41)
[2021-11-10] MEDS: POLYETHYLENE (MIRALAX) 17 GM PACK PO SCH (08:14)
[2021-11-10] MEDS: INSULIN ASPART PER UNIT SC SCH ×4 (08:14→20:38)
[2021-11-10] MEDS ORDERED: LEVALBUTEROL HCL 0.63 MG/3 ML NEB NEB PRN (08:30)
[2021-11-10] MEDS ORDERED: IPRATROPIUM BROMIDE NEB SOLN 0.02% 2.5 ML VIAL INH PRN (09:13)
[2021-11-10] MEDS: METOPROLOL TARTRATE 1 MG/ML VIAL IV PRN (10:25)
[2021-11-10] MEDS: LACTATED RINGER'S 1,000 ML IV SCH (12:40)
--- NOTE | 2021-11-10 14:04 | Hospitalist Progress Note ---
Date of Service November 10, 2021 Assessment & Plan (1) Acute respiratory failure with hypoxia: Plan: 81-year-old man with history of COPD, combined CHF, and recent hospitalization for COVID-19 pneumonia, who presented to the hospital by ambulance with acute hypoxic respiratory failure secondary to sepsis. Acute proximal respiratory failure -Initially requiring pressors on admission. Now off pressors. -No longer intubated other. Now breathing through oxime mask, now on 2 L nasal cannula and continuing to improve * Continue antibiotic management (see below). * Wean as tolerated, goal room air Systolic & diastolic heart failure -EF in September 2021: 45 to 50% -After vasopressors stopped, carvedilol switched to metoprolol tartrate 25 mg twice daily. This was increased to 50 mg twice daily as he went into atrial fibrillation with RVR. -Metoprolol titrate increased to 50 mg 3 times daily. However, patient continues to be in A. fib with RVR. Remains uncontrolled even with multiple doses of IV Lopressor. -Unclear if persistent tachycardia secondary to poor p.o. intake over last 24 to 48 hours. * IV LR at reduced maintenance rate (50 mL/h). * Holding p.o. metoprolol as patient appears to be poorly tolerating all p.o. intake at this time. Converted to IV in 5 mg every 4 hours scheduled. * Consider digoxin (vs amiodarone) should HR remain poorly controlled. Will discuss with cardiology. CA-UTI -History of E. coli, Enterococcus, Monalisa UTIs. -Was started on Zosyn for empiric coverage. Switched to cefepime. Urine culture positive for Pseudomonas, Monalisa. -Patient continues to show clinical improvement pseudomonal coverage. * Holding tamsulosin, despite normal pressures as patient is on Michel catheter. Paroxysmal atrial fibrillation: Home apixaban, IV metoprolol, as above (switched from carvedilol). Coronary artery disease: Imdur ER, apixaban as above, IV metoprolol also as above. Dementia: Continue memantine, donepezil, bupropion if remaining stable and downgrade. Hypothyroidism: Continue home Synthroid Code: DNR/DNI Dispo: Med-Surg with telemetry FEN/GI: heart healthyeasy to chew DVT Prophylaxis: apixaban 2.5 mg twice daily Consults: Speech & swallow (2) Chronic diastolic heart failure: Plan: History of systolic and diastolic heart failure EF 09/2021: EF 45-50% Weaned from vasopressors Hemodynamically stable but with A. fib and tachycardia Carvedilol was restarted, patient with suboptimal control of this and mild hypotension around dosing Given low systolic BPs and poor rate control converted to metoprolol twice daily and additional IV dose given. Rate improving. If adequate rate control over next 24 hours, anticipate can progress towards discharge/placement * Metoprolol tartrate 25 mg dose increased to 3 times daily. Also received one- time dose of IV Lopressor. Plan to monitor overnight and further titrate as needed for optimal rate control. (3) Catheter-associated urinary tract infection: Plan: Catheter associated UTI Past history of E. coli, Enterococcus, candidal UTIs Initially on broad-spectrum treatment with Zosyn subsequently switched to cefepime UC positive for Pseudomonas aeruginosa, second culture positive for multiple organisms at high counts. Intermittent positive for Monalisa, clinically improving with Pseudomonas coverage. Continue cefepime. Tamsulosin held in the setting of hypotension (4) Paroxysmal atrial fibrillation: Plan: Continue apixaban Now on metoprolol (5) COVID-19: Plan: Patient was COVID-positive September 19, (6) CAD (coronary artery disease): Plan: Beta-christina as noted, isosorbide as noted, anticoagulated as noted. 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 (7) Dementia: Plan: Continue memantine, donepezil, bupropion if remaining stable and downgrade Plan Continue Synthroid Admission and Anticipated Discharge Date Admission Date: November 04, 2021 Supervising Physician Co-Signing Physician Notes I personally examined the patient and verified all delaney points of history and exam, discussed case, and agree with decision making with Dr Ag No meaningful HPI or review of systems obtainable. Appears to be comfortable, makes eye contact. Does sneeze a few times while I am in the room. Vitals noted, in general he is awake and alert pleasant no distress. HEENT normocephalic atraumatic mucous membranes moist. Lungs are clear without notable rales rhonchi or wheezes moderate spontaneous effort, difficult exam. Cardio is irregularly irregular and somewhat tachycardic. Skin shows no rashes pallor or icterus. Sepsisoverall seems to be improving. Continue cefepime A. fib/RVRIV fluids gently given that he appears to be a bit on the dry side, and has had poor oral intakepossibly this will improve if some of his ta chycardia is reflux, at the same time for the RVRincrease beta-christina Mild hypernatremia/mild elevation in creatininepoor p.o. intakegentle maintenance fluids, follow closely given his valvular heart disease as well as slightly low EF anticoagulated Subjective Per telemetry, patient went into A. fib with RVR at about midnight, approximately 2 hours after receiving his last 50 mg metoprolol titrate dose. Review of MAR shows he did not receive as needed IV Lopressor overnight. Per nursing, he has also had much reduced p.o. intake, compared to the day before. This morning, patient appears less oriented than usual. He is nonverbal, only able to mumble unintelligible responses to direct questions. Review of Systems Review of Systems: All systems reviewed & are unremarkable except as noted in HPI & below Physical Exam Physical Exam: General: Drowsy, mostly nonverbal, frail appearing old man in no acute distress. HEENT: Normocephalic, atraumatic. EOM intact. Nares patent. Moist mucosal membranes. CV: Tachycardic, regular rhythm. No murmurs gallops or rubs. Respiratory: Unable to auscultate lung kang as patient was uncooperative, too heavy to move. Abdomen: Large, protuberant abdomen. No bruits heard on auscultation. No tenderness to deep palpation. Neuro: Alert and oriented x3. Skin: Clean, dry, and intact. No rashes, bruises, or erythema. Results & Data Results & Data ([facility]) Vital Signs (Past 12 Hours) Vital Signs Temp Pulse Pulse Resp BP BP Pulse Ox 11/10/21 11:17 37 C 103 H 18 106/75 93 11/10/21 08:00 11/10/21 08:00 130 H 11/10/21 07:28 37 C 131 H 18 124/86 90 11/10/21 03:26 36.6 C 121 H 16 131/89 91 O2 Del Method 11/10/21 11:17 Room Air 11/10/21 08:00 Room Air 11/10/21 08:00 11/10/21 07:28 Room Air 11/10/21 03:26 Resident Activity Tracking Resident Involvement: Resident Care Provided Care Provided: Adult [facility]
[2021-11-10] MEDS ORDERED: METOPROLOL TARTRATE 1 MG/ML VIAL IV SCH (16:00)
--- NOTE | 2021-11-10 18:55 | Billing Data ---
Date of Service November 10, 2021 Coding Level of Care Code 64003 Subseq Hosp Care Lvl 3
[2021-11-10] MEDS: LEVOTHYROXINE SODIUM 112 MCG TABLET PO SCH (20:41)
[2021-11-10] MEDS: SENNA 8.6 MG TAB PO SCH (20:42)
[2021-11-10] MEDS: METOPROLOL TARTRATE 25 MG TAB PO SCH (20:44)
[2021-11-11 07:26] LABS: BUN Creatinine Ratio 20.8 (10-20); Calcium 7.7 mg/dl (8.5-10.1); Creatinine Clr Calc Pharmacy 31.1 ml/min; Est GFR (African American) 36.8 ml/min; Est GFR (Non-African American) 31.7 ml/min; Potassium 3.4 mmol/L (3.5-5.1)
[2021-11-11] MEDS: CEFEPIME 2,000 MG in SYRINGE 0 ML IV SCH ×2 (07:48→20:45)
[2021-11-11] MEDS: LACTATED RINGER'S 1,000 ML IV SCH (07:48)
[2021-11-11] MEDS: INSULIN ASPART PER UNIT SC SCH ×4 (09:37→20:43)
[2021-11-11] MEDS: POLYETHYLENE (MIRALAX) 17 GM PACK PO SCH (09:44)
[2021-11-11] MEDS: FAMOTIDINE 20 MG TAB PO SCH (13:39)
[2021-11-11] MEDS: APIXABAN 2.5 MG TAB PO SCH ×2 (13:39→20:43)
[2021-11-11] MEDS: ISOSORBIDE MONO EXTENDED REL 30 MG TABCR PO SCH (13:40)
[2021-11-11] MEDS: METOPROLOL TARTRATE 25 MG TAB PO SCH ×2 (13:40→20:00)
--- NOTE | 2021-11-11 16:34 | Hospitalist Progress Note ---
Date of Service November 11, 2021 Assessment & Plan (1) Acute respiratory failure with hypoxia: Plan: 81-year-old man with history of COPD, combined CHF, and recent hospitalization for COVID-19 pneumonia, who presented to the hospital by ambulance with acute hypoxic respiratory failure secondary to sepsis. Acute proximal respiratory failure -Initially requiring pressors on admission. Now off pressors. -No longer intubated other. Now breathing through oxime mask. Currently saturating well on room air * Continue antibiotic management (see below). Systolic & diastolic heart failure -EF in September 2021: 45 to 50% -After vasopressors stopped, carvedilol switched to metoprolol tartrate 25 mg twice daily. This was increased to 50 mg twice daily as he went into atrial fibrillation with RVR. -Metoprolol titrate increased to 50 mg 3 times daily. However, patient continues to be in A. fib with RVR. Remains uncontrolled even with multiple doses of IV Lopressor. -Unclear if persistent tachycardia secondary to poor p.o. intake over last 24 to 48 hours. * IV LR at reduced maintenance rate (50 mL/h). * Holding metoprolol as patient remains very well rate controlled. * Consider digoxin (vs amiodarone) should he convert to A. fib again. Will discuss with cardiology. CA-UTI -History of E. coli, Enterococcus, Monalisa UTIs. -Was started on Zosyn for empiric coverage. Switched to cefepime. Urine culture positive for Pseudomonas, Monalisa. -Patient now has oral candidiasis in addition to in his urine. Initiate treatment with fluconazole. * Holding tamsulosin, despite normal pressures as patient is on Michel catheter. * Fluconazole 200 mg IV x7 days. Day 02/15. Melena -Since last night. Confirmed with fecal occult stool. -Patient is relatively hemodynamically stable (elevated BPs). * AM CBC Paroxysmal atrial fibrillation: Home apixaban, IV metoprolol, as above (switched from carvedilol). Coronary artery disease: Imdur ER, apixaban as above, IV metoprolol also as above. Dementia: Continue memantine, donepezil, bupropion if remaining stable and downgrade. Hypothyroidism: Continue home Synthroid Code: DNR/DNI Dispo: Med-Surg with telemetry FEN/GI: heart healthy pured DVT Prophylaxis: Apixaban 2.5 mg twice daily Consults: Speech & swallow (2) Chronic diastolic heart failure: (3) Catheter-associated urinary tract infection: (4) Paroxysmal atrial fibrillation: (5) COVID-19: (6) CAD (coronary artery disease): (7) Dementia: Plan Continue Synthroid Admission and Anticipated Discharge Date Admission Date: November 04, 2021 Supervising Physician Co-Signing Physician Notes I personally examined the patient and verified all delaney points of history and exam, discussed case, and agree with decision making with Dr Ag. Patient's mental status was at baseline and but I do have some concern about possible aspiration. He will be getting a repeat chest x-ray tomorrow morning, he will continue with cefepime for now but we would have a low threshold to check a procalcitonin as well as broaden his antibiotic coverage if he would continue to worsen clinically. He has an elevated sodium which we will follow. For now continue with lactated Ringer's given his hypokalemia. If potassium decreased then replete with potassium chloride and recheck BMP within 2 hours after finishing that repletion. Subjective No acute events overnight. Patient remains in sinus rhythm. This morning, he is lethargic and nonverbal but arousable. Per nursing, patient has had melanotic stool. Review of Systems Review of Systems: All systems reviewed & are unremarkable except as noted in HPI & below Physical Exam Physical Exam: General: Drowsy, nonverbal, frail appearing old man in no acute distress. HEENT: Normocephalic, atraumatic. EOM intact. Nares patent. Oral candidiasis noted on exam of oropharynx. No evidence of spread to the esophagus CV: Regular rate and rhythm. 3/6 systolic murmur heard loudest on the left side. Respiratory: Poor air movement. Bibasilar crackles. No rhonchi or wheezes.. Abdomen: Large, protuberant abdomen. No bruits heard on auscultation. No tenderness to deep palpation. Neuro: Lethargic but arousable. Nonverbal, which appears to be at baseline. Skin: Clean, dry, and intact. No rashes, bruises, or erythema. Results & Data Results & Data ([facility]) Vital Signs (Past 12 Hours) Vital Signs Temp Pulse Pulse Resp BP BP Pulse Ox 11/11/21 15:21 36.3 C L 61 20 182/85 H 96 11/11/21 08:00 11/11/21 08:00 61 11/11/21 11:49 36.3 C L 60 18 148/78 H 94 11/11/21 07:55 36.4 C L 62 18 150/66 H 90 O2 Del Method 11/11/21 15:21 Room Air 11/11/21 08:00 Room Air 11/11/21 08:00 11/11/21 11:49 Room Air 11/11/21 07:55 Room Air Resident Activity Tracking Resident Involvement: Resident Care Provided Care Provided: Adult Hospital Medicine
[2021-11-11] MEDS ORDERED: FLUCONAZOLE 200 MG/100 ML BAG IV ONE (17:00)
[2021-11-11] MEDS: LEVOTHYROXINE SODIUM 112 MCG TABLET PO SCH (20:41)
[2021-11-11] MEDS: SENNA 8.6 MG TAB PO SCH (20:43)
[2021-11-11] MEDS: METOPROLOL TARTRATE 1 MG/ML VIAL IV PRN (23:45)
[2021-11-12] MEDS: METOPROLOL TARTRATE 1 MG/ML VIAL IV PRN (03:30)
--- NOTE | 2021-11-12 06:48 | Hospitalist Progress Note ---
Date of Service November 12, 2021 Assessment & Plan (1) Acute respiratory failure with hypoxia: Plan: 81-year-old man with history of COPD, combined CHF, and recent hospitalization for COVID-19 pneumonia, who presented to the hospital by ambulance with acute hypoxic respiratory failure secondary to sepsis. Acute proximal respiratory failure -Initially requiring pressors on admission. Now off pressors. -No longer intubated. -Patient was saturating 91% on room air, noticeably decreased from before when he was saturating in the mid to high 90s. -Concern for acute pulmonary process, not covered by current antibiotic regimen, given patient's nonverbal baseline. -Ordered CXR, which showed possible 4.4 cm cavitary focus within the right midlung. Follow-up CT chest showed no evidence of cavitary lesion, only small bilateral pleural effusion, and trace pericardial effusion. -Obtained CT head, which showed no acute intracranial abnormality. * Broadened antibiotic coverage to include anaerobes (IV Flagyl every 8 hours). Systolic & diastolic heart failure -EF in September 2021: 45 to 50% -After vasopressors stopped, carvedilol switched to metoprolol tartrate 25 mg twice daily. This was increased to 50 mg twice daily as he went into atrial fibrillation with RVR. -Metoprolol titrate increased to 50 mg 3 times daily. However, patient continues to be in A. fib with RVR. Remains uncontrolled even with multiple doses of IV Lopressor. -Unclear if persistent tachycardia secondary to poor p.o. intake over last 24 to 48 hours. * IV LR at reduced maintenance rate (50 mL/h). * Holding metoprolol as patient remains very well rate controlled. * Consider digoxin (vs amiodarone) should he convert to A. fib again. Will discuss with cardiology. CA-UTI -History of E. coli, Enterococcus, Monalisa UTIs. -Started on Zosyn for empiric coverage. Switched to cefepime. Urine culture positive for Pseudomonas, Monalisa. -Patient now has oral candidiasis in addition to in his urine. Initiate treatm ent with fluconazole. * Holding tamsulosin, despite normal pressures as patient is on Michel catheter. * Fluconazole 200 mg IV x7 days. Day 2/7. Melena -Since last night. Confirmed with fecal occult stool. -Patient is relatively hemodynamically stable (elevated BPs). * AM CBC: Stable. Continue to trend. Paroxysmal atrial fibrillation: Home apixaban, IV metoprolol, as above (switched from carvedilol). Hypertension: Restarted amlodipine 5 mg daily. Trend vitals. Coronary artery disease: Imdur ER, apixaban as above, IV metoprolol also as above. Dementia: Continue memantine, donepezil, bupropion if remaining stable and downgrade. Hypothyroidism: Continue home Synthroid Code: DNR/DNI Dispo: Med-Surg with telemetry FEN/GI: heart healthy pured DVT Prophylaxis: Apixaban 2.5 mg twice daily Consults: Speech & swallow (2) Chronic diastolic heart failure: (3) Catheter-associated urinary tract infection: (4) Paroxysmal atrial fibrillation: (5) COVID-19: (6) CAD (coronary artery disease): (7) Dementia: Plan Continue Synthroid Admission and Anticipated Discharge Date Admission Date: November 04, 2021 Supervising Physician Co-Signing Physician Notes I personally examined the patient and verified all delaney points of history and exam, discussed case, and agree with decision making with Dr Ag. Today, patient appeared significantly improved overall. His overall mental status appears to be increased and his sodium as well as potassium levels are improving. Although he is still having persistent low potassium his urine osmolality and urine sodium levels have come back showing that his hypernatremia is likely hypovolemic in nature. Going forward, we will continue with IV fluids and the IV potassium repletion but long-term goals of care need to be discussed such as a feeding plan. He can take in foods orally through a straw but long- term anders we need to discuss an overall appropriate plan to help with his overall nutrition. From an infectious standpoint his pneumonia appears to be resolving and he will continue with respiratory therapy care specifically with incentive spirometry and suction as needed. Subjective No acute events overnight. Patient is lethargic, as before but is arousable to voice. He is unable to verbalize responses but is able to follow some commands, albeit slowly. Review of Systems Review of Systems: All systems reviewed & are unremarkable except as noted in HPI & below Physical Exam Physical Exam: General: Drowsy, nonverbal, frail appearing old man in no acute distress. HEENT: Normocephalic, atraumatic. EOM intact. Nares patent. Oral candidiasis of the tongue noted. Review of the posterior oropharynx obstructed by thick phlegm. CV: Regular rate and rhythm. 3/6 systolic murmur heard loudest on the left side. Respiratory: Poor air movement. Bibasilar crackles. No rhonchi or wheezes.. Abdomen: Large, protuberant abdomen. No bruits heard on auscultation. No tenderness to deep palpation. Neuro: Lethargic but arousable. Nonverbal, which appears to be at baseline. Somewhat improved from yesterday. Skin: Clean, dry, and intact. No rashes, bruises, or erythema. Results & Data Results & Data ([facility]) Vital Signs (Past 12 Hours) Vital Signs Temp Pulse Pulse Resp BP BP BP 11/12/21 01:25 61 158/73 H 11/12/21 03:30 63 178/94 H 11/11/21 23:45 69 172/83 H 11/12/21 03:22 36.6 C 63 20 178/94 H 11/11/21 22:22 68 11/11/21 23:35 36.6 C 69 18 172/83 H 11/11/21 20:00 11/11/21 19:36 36.0 C L 74 20 170/83 H 11/11/21 19:27 92 H 23 192/105 H 11/11/21 19:26 36.4 C L 66 Pulse Ox O2 Del Method 11/12/21 01:25 11/12/21 03:30 11/11/21 23:45 11/12/21 03:22 91 Room Air 11/11/21 22:22 11/11/21 23:35 94 Room Air 11/11/21 20:00 Room Air 11/11/21 19:36 92 Room Air 11/11/21 19:27 93 Room Air 11/11/21 19:26 Resident Activity Tracking Resident Involvement: Resident Care Provided Care Provided: Adult Hospital Medicine
[2021-11-12 07:07] LABS: Basophils # (auto) 0.01 K/uL (0-0.2); Basophils % (auto) 0.1 %; Eosinophils # (auto) 0.03 K/uL (0-0.50); Eosinophils % (auto) 0.4 %; Hemoglobin 10.5 g/dl (14.0-18.0); Immature Granulocytes # (auto) 0.18 K/uL (0.00-0.02); Immature Granulocytes % (auto) 2.2 %; Lymphocytes # (auto) 0.86 K/uL (1.2-3.4); Lymphocytes % (auto) 10.6 %; Mean Corpuscular Hemoglobin 30.7 pg (25.0-34.0); Mean Corpuscular Hgb Conc 31.8 g/dL (32.0-36.0); Mean Corpuscular Volume 96.5 fL (80.0-100.0); Mean Platelet Volume 10.1 fL (9.4-12.4); Monocytes % (auto) 6.2 %; Neutrophils # (auto) 6.55 K/uL (1.4-6.5); Neutrophils % (auto) 80.5 %; Nucleated RBC # (auto) 0.02 K/uL (0-0); Nucleated RBC % (auto) 0.2 %; Platelet Count 187 K/uL (130-400); RDW Coefficient of Variation 16.7 % (11.5-14.5); RDW Standard Deviation 57.3 fL (36.4-46.3); Red Blood Count 3.42 M/uL (4.63-6.08); White Blood Count 8.13 K/ul (4.8-10.8)
[2021-11-12] MEDS: INSULIN ASPART PER UNIT SC SCH ×3 (07:55→17:58)
[2021-11-12] MEDS: METOPROLOL TARTRATE 25 MG TAB PO SCH ×2 (07:55→20:19)
[2021-11-12] MEDS: POLYETHYLENE (MIRALAX) 17 GM PACK PO SCH (08:05)
[2021-11-12] MEDS: APIXABAN 2.5 MG TAB PO SCH ×2 (08:05→20:19)
[2021-11-12] MEDS: CEFEPIME 2,000 MG in SYRINGE 0 ML IV SCH ×2 (08:05→20:19)
[2021-11-12] MEDS: amLODIPine BESYLATE 5 MG TAB PO SCH (08:05)
[2021-11-12] MEDS: FAMOTIDINE 20 MG TAB PO SCH (08:05)
[2021-11-12] MEDS: ISOSORBIDE MONO EXTENDED REL 30 MG TABCR PO SCH (08:05)
[2021-11-12 08:13] LABS: BUN Creatinine Ratio 18.7 (10-20); Calcium 7.9 mg/dl (8.5-10.1); Creatinine Clr Calc Pharmacy 32.2 ml/min; Est GFR (African American) 42.3 ml/min; Est GFR (Non-African American) 36.5 ml/min; Potassium 2.7 mmol/L (3.5-5.1)
[2021-11-12] MEDS ORDERED: LACTATED RINGER'S 1,000 ML IV SCH (08:30)
[2021-11-12] MEDS: POTASSIUM CHLORIDE / WTR 10 MEQ/100 ML PLCT IV SCH ×4 (08:53→12:49)
--- NOTE | 2021-11-12 09:47 | XRay Report ---
XR chest 1V portable HISTORY: Pneumonia. Follow-up. COMPARISON: Chest 11/05/2021. FINDINGS: There is again noted a left-sided dual-chamber pacemaker. The heart remains mildly enlarged . There are low lung volumes. Small bilateral pleural effusions have slightly progressed. Slight prog ression of the patchy bilateral airspace opacities most pronounced within the right midlung zone. Kalpesh cifications within the aortic knob. Mild emphysema. Possible developing cavitary focus within the rig ht midlung zone measuring 4.4 cm. IMPRESSION: 1. Interval progression of the patchy bilateral airspace opacities and small bilateral pleural effusi ons. 2. Possible 4.4 cm cavitary focus within the right midlung zone. Follow-up chest CT recommended for kathrine peguero evaluation. 3. Cardiomegaly, unchanged. ACT 112: Negative or not required by law. Electronically signed by: Travis Cabrera M.D. 11/12/2021 9:46 AM
[2021-11-12] MEDS ORDERED: hydrALAZINE HCL 20 MG/ML VIAL IV PRN (10:49)
[2021-11-12] MEDS ORDERED: NYSTATIN SUSP 500,000 U/5 ML UDC PO STA (11:43)
[2021-11-12 12:13] LABS: Calcium 7.9 mg/dl (8.5-10.1); Creatinine Clr Calc Pharmacy 33.4 ml/min; Est GFR (African American) 44.1 ml/min; Est GFR (Non-African American) 38.1 ml/min; Potassium 3.1 mmol/L (3.5-5.1)
--- NOTE | 2021-11-12 12:13 | CT Scan Report ---
CT head/brain wo con CLINICAL HISTORY: 81 years-old Male with worsening AMS. Acutely altered mental status TECHNIQUE: Multiple axial CT images of the head were obtained without contrast. A dose lowering tech nique was utilized adhering to the principles of ALARA. CT DOSE: 823.94 mGycm COMPARISON: 12/24/2019 FINDINGS: No acute intracranial hemorrhage, midline shift, intracranial mass, hydrocephalus, territorial ischem ia or abnormal extra-axial collection. Involutional changes. White matter hypodensities suggestive of chronic microvascular ischemic disease. Cerebral vascular calcifications. The calvarium is intact. Bilateral mastoid effusions. The paranasal sinuses are generally clear. Tari or bilateral lens repair. Unremarkable soft tissues. IMPRESSION: No acute intracranial abnormality. ACT 112: Negative or not required by law. The above report was generated using voice recognition software. It may contain grammatical, syntax o r spelling errors. Electronically signed by: Avelino Joshi M.D. 11/12/2021 12:11 PM
[2021-11-12] MEDS ORDERED: Nursing to Pharmacy Communication SCH (12:30)
[2021-11-12] MEDS ORDERED: DEXTROSE 50% 50 ML SYRINGE IV ONE (13:16)
[2021-11-12] MEDS ORDERED: VANCOMYCIN CONSULT ACTIVE PRN (13:20)
--- NOTE | 2021-11-12 13:33 | CT Scan Report ---
CT chest diagnostic wo con CT DOSE: 545.78 mGycm HISTORY: Abnormal chest x-ray. Possible cavitary lesion. Follow-up. TECHNIQUE: Multiaxial CT images of the chest were performed without contrast. A dose lowering techni que was utilized adhering to the principles of ALARA. COMPARISON: Chest CT 10/08/2021. FINDINGS: Suboptimal evaluation the chest due to the motion artifact. Mild diffuse bronchial wall thi ckening. However, the central airways appear patent. No pneumothorax. Small bilateral pleural effusio ns have progressed. The visualized liver and adrenal glands unremarkable. Multiple calcified granulom as within the spleen. The heart remains enlarged. Left-sided pacemaker again noted. Subcentimeter med iastinal lymph nodes do not meet CT criteria for pathologic involvement. These remain unchanged. Norm al caliber esophagus. Trace pericardial fluid. Severe coronary artery calcifications are noted. There is moderate calcified plaque within the normal caliber thoracic aorta. No suspicious lytic or blasti c osseous lesions. There are few old, healed bilateral rib fractures. Multifocal patchy bilateral air space opacities are again noted. This is most pronounced within the right lung. This is similar to th e prior study. No evidence for a cavitary lesion within the right lung to correspond to the chest x-r ay abnormality. IMPRESSION: 1. No significant change in the multifocal patchy bilateral airspace opacities most pronounced on the right. 2. No cavitary lesions identified to correspond to the chest x-ray abnormality. 3. Small bilateral pleural effusions have progressed. 4. Trace pericardial effusion. ACT 112: Negative or not required by law. Electronically signed by: Travis Cabrera M.D. 11/12/2021 1:31 PM
[2021-11-12] MEDS: DEXTROSE 5% 1,000 ML IV SCH (14:01)
--- NOTE | 2021-11-12 14:13 | Pharmacy Report ---
Pharmacy PK ABX Note - Date of Service November 12, 2021 - Assessment and Plan Assessment 81 year old M receiving vancomycin/Flagyl/Cefepime for treatment of Pseudomonas UTI and now worsening condition. Pertinent microbiologic data includes:urine culture growing Pseudomonas S to cefepime. Day # 1 of antimicrobial therapy for vancomycin and day 5 for cefepime Plan Vancomycin * Loading dose: 1750 mg IV x 1 * Maintenance dose: 1250 mg IV every 24 hours * Regimen is predicted to achieve target AUC/YAQUELIN of 400-600 mg/L.hr * Random level ordered for: 11/13/21 Pharmacy will continue to follow and will adjust dose/frequency as necessary. Thank you. Pharmacy has transitioned to AUC monitoring for vancomycin. AUC/YAQUELIN is the preferred PK/PD target and is associated with decreased risk of nephrotoxicity compared to traditional trough targets.
[2021-11-12] MEDS: metroNIDAZOLE 500 MG/100 ML BAG IV SCH ×2 (14:28→21:02)
[2021-11-12] MEDS ORDERED: VANCOMYCIN HCL 1,750 MG in SODIUM CHLORIDE 0.9% 500 ML IV ONE (15:00)
[2021-11-12 15:13] LABS: Hematocrit (blood only) 34.4 % (40.1-51.0)
[2021-11-12 15:36] LABS: BUN Creatinine Ratio 17.1 (10-20); Calcium 7.8 mg/dl (8.5-10.1); Creatinine Clr Calc Pharmacy 32.4 ml/min; Est GFR (African American) 42.6 ml/min; Est GFR (Non-African American) 36.7 ml/min; Potassium 3.3 mmol/L (3.5-5.1)
[2021-11-12] MEDS ORDERED: FLUCONAZOLE 100 MG/50 ML BAG IV SCH (17:00)
[2021-11-12] MEDS: LEVOTHYROXINE SODIUM 112 MCG TABLET PO SCH (20:19)
[2021-11-12] MEDS: SENNA 8.6 MG TAB PO SCH (20:20)
[2021-11-13] MEDS: INSULIN ASPART PER UNIT SC SCH ×5 (01:56→20:26)
[2021-11-13] MEDS: metroNIDAZOLE 500 MG/100 ML BAG IV SCH ×3 (05:57→21:39)
[2021-11-13 07:11] LABS: Basophils # (auto) 0.02 K/uL (0-0.2); Basophils % (auto) 0.2 %; Eosinophils # (auto) 0.03 K/uL (0-0.50); Eosinophils % (auto) 0.4 %; Hematocrit (blood only) 33.3 % (40.1-51.0); Hemoglobin 10.8 g/dl (14.0-18.0); Immature Granulocytes # (auto) 0.18 K/uL (0.00-0.02); Immature Granulocytes % (auto) 2.2 %; Lymphocytes # (auto) 1.16 K/uL (1.2-3.4); Lymphocytes % (auto) 14.4 %; Mean Corpuscular Hemoglobin 31.2 pg (25.0-34.0); Mean Corpuscular Hgb Conc 32.4 g/dL (32.0-36.0); Mean Corpuscular Volume 96.2 fL (80.0-100.0); Mean Platelet Volume 10.3 fL (9.4-12.4); Monocytes # (auto) 0.54 K/uL (0.24-0.82); Monocytes % (auto) 6.7 %; Neutrophils # (auto) 6.13 K/uL (1.4-6.5); Neutrophils % (auto) 76.1 %; Platelet Count 197 K/uL (130-400); RDW Coefficient of Variation 17.4 % (11.5-14.5); RDW Standard Deviation 58.2 fL (36.4-46.3); Red Blood Count 3.46 M/uL (4.63-6.08); White Blood Count 8.06 K/ul (4.8-10.8)
[2021-11-13 07:41] LABS: BUN Creatinine Ratio 15.1 (10-20); Calcium 7.6 mg/dl (8.5-10.1); Creatinine Clr Calc Pharmacy 34.7 ml/min; Est GFR (African American) 46.2 ml/min; Est GFR (Non-African American) 39.8 ml/min; Potassium 2.6 mmol/L (3.5-5.1)
[2021-11-13] MEDS: CEFEPIME 2,000 MG in SYRINGE 0 ML IV SCH ×2 (07:46→19:57)
[2021-11-13] MEDS: DEXTROSE 5% 1,000 ML IV SCH (07:47)
[2021-11-13] MEDS: POTASSIUM CHLORIDE / WTR 10 MEQ/100 ML PLCT IV SCH ×4 (09:18→14:00)
[2021-11-13] MEDS: POLYETHYLENE (MIRALAX) 17 GM PACK PO SCH (09:19)
[2021-11-13] MEDS: ISOSORBIDE MONO EXTENDED REL 30 MG TABCR PO SCH (09:20)
[2021-11-13] MEDS: APIXABAN 2.5 MG TAB PO SCH ×2 (09:20→19:46)
[2021-11-13] MEDS: FAMOTIDINE 20 MG TAB PO SCH (09:20)
[2021-11-13] MEDS: METOPROLOL TARTRATE 25 MG TAB PO SCH ×2 (09:20→19:46)
[2021-11-13] MEDS: amLODIPine BESYLATE 5 MG TAB PO SCH (09:20)
--- NOTE | 2021-11-13 11:08 | Electrocardiogram Report ---
Test Reason : Blood Pressure : / mmHG Vent. Rate : 090 BPM Atrial Rate : 090 BPM P-R Int : 160 ms QRS Dur : 090 ms QT Int : 382 ms P-R-T Axes : 097 -39 039 degrees QTc Int : 467 ms Sinus rhythm with occasional Premature ventricular complexes and Premature atrial complexes Left axis deviation Abnormal ECG When compared with ECG of 05-NOV-2021 04:58, Premature ventricular complexes are now Present Confirmed by Itz David ([id number]) on 11/13/2021 11:07:58 AM Referred By: REFERRED SELF Confirmed By:Rohan David
[2021-11-13] MEDS: FLUCONAZOLE 200 MG/100 ML BAG IV SCH (11:28)
[2021-11-13] MEDS ORDERED: VANCOMYCIN HCL 1,250 MG in SODIUM CHLORIDE 0.9% 250 ML IV SCH (15:00)
[2021-11-13 16:07] LABS: BUN Creatinine Ratio 14.8 (10-20); Calcium 7.4 mg/dl (8.5-10.1); Est GFR (African American) 45.1 ml/min; Est GFR (Non-African American) 38.9 ml/min; Potassium 3.2 mmol/L (3.5-5.1)
--- NOTE | 2021-11-13 17:37 | Hospitalist Progress Note ---
Date of Service November 13, 2021 Assessment & Plan (1) Acute respiratory failure with hypoxia: Plan: 81-year-old man with history of COPD, combined CHF, and recent hospitalization for COVID-19 pneumonia, who presented to the hospital by ambulance with acute hypoxic respiratory failure secondary to sepsis. Acute proximal respiratory failure -Initially requiring pressors on admission. Now off pressors. -No longer intubated. -Patient was saturating 91% on room air, noticeably decreased from before when he was saturating in the mid to high 90s. -Concern for acute pulmonary process, not covered by current antibiotic regimen, given patient's nonverbal baseline. -Ordered CXR, which showed possible 4.4 cm cavitary focus within the right midlung. Follow-up CT chest showed no evidence of cavitary lesion, only small bilateral pleural effusion, and trace pericardial effusion. -Obtained CT head, which showed no acute intracranial abnormality. * Broadened antibiotic coverage to include anaerobes (IV Flagyl every 8 hours). Day 2. * Stopping IV cefepime 11/14/2021. Systolic & diastolic heart failure -EF in September 2021: 45 to 50% -After vasopressors stopped, carvedilol switched to metoprolol tartrate 25 mg twice daily. This was increased to 50 mg twice daily as he went into atrial fibrillation with RVR. -Metoprolol titrate increased to 50 mg 3 times daily. However, patient continues to be in A. fib with RVR. Remains uncontrolled even with multiple doses of IV Lopressor. -Unclear if persistent tachycardia secondary to poor p.o. intake over last 24 to 48 hours. * IV LR at reduced maintenance rate (50 mL/h). * Holding metoprolol as patient remains very well rate controlled. * Consider digoxin (vs amiodarone) should he convert to A. fib again. Will discuss with cardiology. CA-UTI -History of E. coli, Enterococcus, Monalisa UTIs. -Started on Zosyn for empiric coverage. Switched to cefepime. Urine culture positive for Pseudomonas, Monalisa. -Patient now has oral candidiasis in addition to in his urine. Initiate treatment with fluconazole. * Holding tamsulosin, despite normal pressures as patient is on Michel catheter. * Fluconazole 200 mg IV x7 days. Increased to 400 mg. Day 3/7. Melena -Since last night. Confirmed with fecal occult stool. -Patient is relatively hemodynamically stable (elevated BPs). * AM CBC: Stable. Continue to trend. Paroxysmal atrial fibrillation: Home apixaban, IV metoprolol, as above (switched from carvedilol). Hypertension: Restarted amlodipine 5 mg daily. Trend vitals. Coronary artery disease: Imdur ER, apixaban as above, IV metoprolol also as above. Dementia: Continue memantine, donepezil, bupropion if remaining stable and downgrade. Hypothyroidism: Continue home Synthroid Code: DNR/DNI Dispo: Med-Surg with telemetry FEN/GI: heart healthy pured DVT Prophylaxis: Apixaban 2.5 mg twice daily Consults: Speech & swallow (2) Chronic diastolic heart failure: (3) Catheter-associated urinary tract infection: (4) Paroxysmal atrial fibrillation: (5) COVID-19: (6) CAD (coronary artery disease): (7) Dementia: Plan Continue Synthroid Admission and Anticipated Discharge Date Admission Date: November 04, 2021 Supervising Physician Co-Signing Physician Notes I personally examined the patient and verified all delaney points of history and exam, discussed case, and agree with decision making with Dr Ag. Today, patient continues to significantly improved to the point where he is actually articulating clear words and responding to questions. I recommend him finishing up the course of Flagyl and fluconazole given that when these were started and his overall antibiotic spectrum was broadened he clinically improved. Suspect that he did have a component of aspiration pneumonia and that the treatment of Flagyl has helped overall. He showed us in the room that he can take small amounts of food as long as they are in puree Form. Continue with respiratory care for now and await placement. Subjective Patient is noticeably less lethargic this morning. He is responsive, albeit i nconsistently, to verbal commands. He is able to nod his head yes or shake his head no to questions. He is still entirely nonverbal. Review of Systems Review of Systems: All systems reviewed & are unremarkable except as noted in HPI & below Physical Exam Physical Exam: General: Drowsy, nonverbal, frail appearing old man in no acute distress. HEENT: Normocephalic, atraumatic. EOM intact. Nares patent. Oral candidiasis of the tongue noted. Review of the posterior oropharynx obstructed by thick phlegm. CV: Regular rate and rhythm. 3/6 systolic murmur heard loudest on the left side. Respiratory: Good air movement. Bibasilar crackles. No rhonchi or wheezes. Abdomen: Large, protuberant abdomen. No bruits heard on auscultation. No tenderness to deep palpation. Neuro: Lethargic but arousable. Nonverbal, which appears to be at baseline. Somewhat improved from yesterday. Skin: Clean, dry, and intact. No rashes, bruises, or erythema. Results & Data Results & Data ([facility]) Vital Signs (Past 12 Hours) Vital Signs Temp Pulse Pulse Resp BP Pulse Ox O2 Del Method 11/13/21 15:56 36.6 C 88 19 120/77 96 Room Air 11/13/21 15:27 84 11/13/21 10:50 36.6 C 91 H 19 139/89 95 Room Air 11/13/21 10:00 Room Air 11/13/21 07:24 72 11/13/21 07:19 36.9 C 73 19 137/75 93 Room Air Resident Activity Tracking Resident Involvement: Resident Care Provided Care Provided: Adult Hospital Medicine
[2021-11-13] MEDS: LEVOTHYROXINE SODIUM 112 MCG TABLET PO SCH (19:46)
[2021-11-13] MEDS: SENNA 8.6 MG TAB PO SCH (19:47)
[2021-11-14] MEDS: DEXTROSE 5% 1,000 ML IV SCH (03:53)
[2021-11-14] MEDS: metroNIDAZOLE 500 MG/100 ML BAG IV SCH ×3 (05:15→20:55)
[2021-11-14 07:03] LABS: Basophils # (auto) 0.02 K/uL (0-0.2); Basophils % (auto) 0.2 %; Eosinophils # (auto) 0.03 K/uL (0-0.50); Eosinophils % (auto) 0.4 %; Hematocrit (blood only) 33.4 % (40.1-51.0); Hemoglobin 10.7 g/dl (14.0-18.0); Immature Granulocytes # (auto) 0.18 K/uL (0.00-0.02); Immature Granulocytes % (auto) 2.2 %; Lymphocytes # (auto) 1.67 K/uL (1.2-3.4); Lymphocytes % (auto) 20.8 %; Mean Corpuscular Hemoglobin 31.3 pg (25.0-34.0); Mean Corpuscular Volume 97.7 fL (80.0-100.0); Mean Platelet Volume 10.6 fL (9.4-12.4); Monocytes # (auto) 0.53 K/uL (0.24-0.82); Monocytes % (auto) 6.6 %; Neutrophils % (auto) 69.8 %; Platelet Count 167 K/uL (130-400); RDW Coefficient of Variation 17.9 % (11.5-14.5); RDW Standard Deviation 61.1 fL (36.4-46.3); Red Blood Count 3.42 M/uL (4.63-6.08); White Blood Count 8.03 K/ul (4.8-10.8)
[2021-11-14 07:25] LABS: BUN Creatinine Ratio 13.7 (10-20); Calcium 7.4 mg/dl (8.5-10.1); Est GFR (African American) 43.2 ml/min; Est GFR (Non-African American) 37.3 ml/min
--- NOTE | 2021-11-14 07:56 | Hospitalist Progress Note ---
Date of Service November 14, 2021 Assessment & Plan (1) Acute respiratory failure with hypoxia: Plan: 81-year-old man with history of COPD, combined CHF, and recent hospitalization for COVID-19 pneumonia, who presented to the hospital by ambulance with acute hypoxic respiratory failure secondary to sepsis. Acute proximal respiratory failure -Initially requiring pressors on admission. Now off pressors. -No longer intubated. -Patient was saturating 91% on room air, noticeably decreased from before when he was saturating in the mid to high 90s. -Concern for acute pulmonary process, not covered by current antibiotic regimen, given patient's nonverbal baseline. -Ordered CXR, which showed possible 4.4 cm cavitary focus within the right midlung. Follow-up CT chest showed no evidence of cavitary lesion, only small bilateral pleural effusion, and trace pericardial effusion. -Obtained CT head, which showed no acute intracranial abnormality. -Patient is verbal for the first time since initiation of broadened anaerobic coverage. Improved mentation strongly suggestive of appropriate microbial coverage. Will continue to follow. * IV Flagyl every 8 hours. Day 3/5. * Stopping IV cefepime 11/14/2021. Systolic & diastolic heart failure -EF in September 2021: 45 to 50% -After vasopressors stopped, carvedilol switched to metoprolol tartrate 25 mg twice daily. This was increased to 50 mg twice daily as he went into atrial fibrillation with RVR. -Metoprolol titrate increased to 50 mg 3 times daily. However, patient continues to be in A. fib with RVR. Remains uncontrolled even with multiple doses of IV Lopressor. -Unclear if persistent tachycardia secondary to poor p.o. intake over last 24 to 48 hours. * IV LR at reduced maintenance rate (50 mL/h). * Holding metoprolol as patient remains very well rate controlled. * Consider digoxin (vs amiodarone) should he convert to A. fib again. Will discuss with cardiology. CA-UTI -History of E. coli, Enterococcus, Monalisa UTIs. -Started on Zosyn for empiric coverage. Switched to cefepime. Urine culture positive for Pseudomonas, Monalisa. -Patient now has oral candidiasis in addition to in his urine. Initiate treatment with fluconazole. * Holding tamsulosin, despite normal pressures as patient is on Michel catheter. * Fluconazole 200 mg IV x7 days. Increased to 400 mg. Day 4/7. Melena -Since last night. Confirmed with fecal occult stool. -Patient is relatively hemodynamically stable. * AM CBC: Stable. Continue to trend. Paroxysmal atrial fibrillation: Home apixaban, IV metoprolol, as above (switched from carvedilol). Hypertension: Restarted amlodipine 5 mg daily. Trend vitals. Coronary artery disease: Imdur ER, apixaban as above, IV metoprolol also as above. Dementia: Continue memantine, donepezil, bupropion if remaining stable and downgrade. Hypothyroidism: Continue home Synthroid Code: DNR/DNI Dispo: Med-Surg with telemetry FEN/GI: heart healthy pured DVT Prophylaxis: Apixaban 2.5 mg twice daily Consults: Speech & swallow (2) Chronic diastolic heart failure: (3) Catheter-associated urinary tract infection: (4) Paroxysmal atrial fibrillation: (5) COVID-19: (6) CAD (coronary artery disease): (7) Dementia: Plan Continue Synthroid Admission and Anticipated Discharge Date Admission Date: November 04, 2021 Supervising Physician Co-Signing Physician Notes I saw the patient and confirmed delaney portions of the history and physical exam and agree with the resident/fellow impression and plan as above. Dr. Yaron Singer, DO Subjective Patient significantly improved this morning on arrival. For the first time since caring for patient, he is verbal and able to speak in complete sentences. He is able to verbalize the desire to speak to his and daughter and at times became very emotional. He is able to eat the pured mashed potatoes in front of him, albeit slowly, without pocketing it. He denies headache, abdominal pain, shortness of breath. Review of Systems Review of Systems: All systems reviewed & are unremarkable except as noted in HPI & below Physical Exam Physical Exam: General: Moderately alert, verbal, frail-appearing elderly man in no acute distress. HEENT: Normocephalic, atraumatic. EOM intact. Nares patent. Oral candidiasis of the tongue noted. Review of the posterior oropharynx obstructed by thick phlegm. CV: Regular rate and rhythm. 3/6 systolic murmur heard loudest on the left side. Respiratory: Good air movement. Bibasilar crackles. No rhonchi or wheezes. Abdomen: Large, protuberant abdomen. No bruits heard on auscultation. No tenderness to deep palpation. Neuro: Weak but alert. Able to respond verbally and follow commands. Much improved from previous nonverbal baseline. Skin: Clean, dry, and intact. Some bruising of the forearms noted. No rash or erythema. Results & Data Results & Data ([facility]) Vital Signs (Past 12 Hours) Vital Signs Temp Pulse Pulse Resp BP BP Pulse Ox 11/14/21 07:05 37.1 C 62 17 111/74 93 11/14/21 03:19 36.5 C 79 18 119/63 95 11/13/21 22:51 36.7 C 91 H 22 119/78 92 11/13/21 22:48 98 H O2 Del Method 11/14/21 07:05 Room Air 11/14/21 03:19 11/13/21 22:51 Room Air 11/13/21 22:48 Resident Activity Tracking Resident Involvement: Resident Care Provided Care Provided: Adult Hospital Medicine
[2021-11-14] MEDS ORDERED: POTASSIUM CHLORIDE / WTR 10 MEQ/100 ML PLCT IV ONE (08:00)
[2021-11-14] MEDS ORDERED: POTASSIUM CHLORIDE / WTR 10 MEQ/100 ML PLCT IV SCH (09:00)
[2021-11-14] MEDS: INSULIN ASPART PER UNIT SC SCH ×4 (09:27→21:07)
[2021-11-14] MEDS: CEFEPIME 2,000 MG in SYRINGE 0 ML IV SCH (09:30)
[2021-11-14] MEDS: APIXABAN 2.5 MG TAB PO SCH ×2 (11:06→21:05)
[2021-11-14] MEDS: ISOSORBIDE MONO EXTENDED REL 30 MG TABCR PO SCH (11:06)
[2021-11-14] MEDS: FAMOTIDINE 20 MG TAB PO SCH (11:06)
[2021-11-14] MEDS: amLODIPine BESYLATE 5 MG TAB PO SCH (11:06)
[2021-11-14] MEDS: POLYETHYLENE (MIRALAX) 17 GM PACK PO SCH (11:06)
[2021-11-14] MEDS: METOPROLOL TARTRATE 25 MG TAB PO SCH ×2 (11:06→21:05)
[2021-11-14] MEDS: FLUCONAZOLE 200 MG/100 ML BAG IV SCH (14:04)
[2021-11-14 16:11] LABS: BUN Creatinine Ratio 14.6 (10-20); Calcium 7.4 mg/dl (8.5-10.1); Creatinine Clr Calc Pharmacy 36.9 ml/min; Est GFR (African American) 44.5 ml/min; Est GFR (Non-African American) 38.4 ml/min; Potassium 3.2 mmol/L (3.5-5.1)
[2021-11-14] MEDS: POTASSIUM CHLORIDE / WTR 10 MEQ/100 ML PLCT IV SCH ×3 (16:15→18:44)
[2021-11-14] MEDS: SENNA 8.6 MG TAB PO SCH (21:05)
[2021-11-14] MEDS: LEVOTHYROXINE SODIUM 112 MCG TABLET PO SCH (21:05)
[2021-11-15] MEDS: metroNIDAZOLE 500 MG/100 ML BAG IV SCH ×3 (05:45→21:17)
[2021-11-15 06:20] LABS: Basophils # (auto) 0.03 K/uL (0-0.2); Basophils % (auto) 0.4 %; Eosinophils # (auto) 0.03 K/uL (0-0.50); Eosinophils % (auto) 0.4 %; Hematocrit (blood only) 32.7 % (40.1-51.0); Hemoglobin 10.5 g/dl (14.0-18.0); Immature Granulocytes # (auto) 0.33 K/uL (0.00-0.02); Immature Granulocytes % (auto) 4.2 %; Lymphocytes # (auto) 1.53 K/uL (1.2-3.4); Lymphocytes % (auto) 19.3 %; Mean Corpuscular Hemoglobin 31.3 pg (25.0-34.0); Mean Corpuscular Hgb Conc 32.1 g/dL (32.0-36.0); Mean Corpuscular Volume 97.3 fL (80.0-100.0); Mean Platelet Volume 10.4 fL (9.4-12.4); Monocytes # (auto) 0.42 K/uL (0.24-0.82); Monocytes % (auto) 5.3 %; Neutrophils # (auto) 5.57 K/uL (1.4-6.5); Neutrophils % (auto) 70.4 %; Platelet Count 161 K/uL (130-400); RDW Coefficient of Variation 17.9 % (11.5-14.5); RDW Standard Deviation 61.2 fL (36.4-46.3); Red Blood Count 3.36 M/uL (4.63-6.08); White Blood Count 7.91 K/ul (4.8-10.8)
[2021-11-15 07:02] LABS: BUN Creatinine Ratio 15.3 (10-20); Calcium 7.6 mg/dl (8.5-10.1); Creatinine Clr Calc Pharmacy 37.5 ml/min; Est GFR (African American) 44.8 ml/min; Est GFR (Non-African American) 38.7 ml/min; Potassium 3.2 mmol/L (3.5-5.1)
[2021-11-15] MEDS ORDERED: LACTATED RINGER'S 1,000 ML IV SCH (08:15)
[2021-11-15] MEDS: amLODIPine BESYLATE 5 MG TAB PO SCH (08:18)
[2021-11-15] MEDS: FAMOTIDINE 20 MG TAB PO SCH (08:18)
[2021-11-15] MEDS: APIXABAN 2.5 MG TAB PO SCH ×2 (08:18→21:17)
[2021-11-15] MEDS: POLYETHYLENE (MIRALAX) 17 GM PACK PO SCH (08:19)
[2021-11-15] MEDS: ISOSORBIDE MONO EXTENDED REL 30 MG TABCR PO SCH (08:19)
[2021-11-15] MEDS: METOPROLOL TARTRATE 25 MG TAB PO SCH ×2 (08:19→21:17)
[2021-11-15] MEDS: INSULIN ASPART PER UNIT SC SCH ×4 (08:28→20:28)
[2021-11-15] MEDS: POTASSIUM CHLORIDE / WTR 10 MEQ/100 ML PLCT IV SCH ×4 (08:30→11:48)
[2021-11-15] MEDS: FLUCONAZOLE 200 MG/100 ML BAG IV SCH (11:49)
[2021-11-15 15:12] LABS: BUN Creatinine Ratio 15.4 (10-20); Calcium 7.3 mg/dl (8.5-10.1); Creatinine Clr Calc Pharmacy 37.8 ml/min; Est GFR (African American) 45.1 ml/min; Est GFR (Non-African American) 38.9 ml/min; Potassium 3.8 mmol/L (3.5-5.1)
--- NOTE | 2021-11-15 17:02 | Hospitalist Progress Note ---
Date of Service November 15, 2021 Assessment & Plan (1) Acute respiratory failure with hypoxia: Plan: 81-year-old man with history of COPD, combined CHF, and recent hospitalization for COVID-19 pneumonia, who presented to the hospital by ambulance with acute hypoxic respiratory failure secondary to sepsis. Now awaiting placement to SNF. Acute proximal respiratory failure -Initially requiring pressors on admission. Now off pressors. -No longer intubated. -Patient was saturating 91% on room air, noticeably decreased from before when he was saturating in the mid to high 90s. -Concern for acute pulmonary process, not covered by current antibiotic regimen, given patient's nonverbal baseline. -Ordered CXR, which showed possible 4.4 cm cavitary focus within the right midlung. Follow-up CT chest showed no evidence of cavitary lesion, only small bilateral pleural effusion, and trace pericardial effusion. -Obtained CT head, which showed no acute intracranial abnormality. -Patient is verbal for the first time since initiation of broadened anaerobic coverage. Improved mentation strongly suggestive of appropriate microbial coverage. Will continue to follow. * IV Flagyl every 8 hours. Day 4/5. Last day 11/16/2021. * IV cefepime stopped 11/14/2021. Systolic & diastolic heart failure -EF in September 2021: 45 to 50% -After vasopressors stopped, carvedilol switched to metoprolol tartrate 25 mg twice daily. This was increased to 50 mg twice daily as he went into atrial fibrillation with RVR. -Atrial fibrillation now rate controlled on metoprolol tartrate 50 mg twice daily. -Started on IV LR at 50 mL/h due to poor p.o. intake x2 days. IVF now stopped, as patient's p.o. intake has improved. * Holding metoprolol as patient remains very well rate controlled. CA-UTI -History of E. coli, Enterococcus, Monalisa UTIs. -Started on Zosyn for empiric coverage. Switched to cefepime. Urine culture positive for Pseudomonas, Monalisa. -Patient now has oral candidiasis in addition to in his urine. Initiate treatment with fluconazole. * Holding tamsulosin, despite normal pressures as patient is on Michel catheter. * Fluconazole 200 mg IV x7 days. Increased to 400 mg. Day 5/7. Melena (resolved) -Confirmed with fecal occult stool. -Patient hemodynamically stable. * AM CBC: Stable x3 days. No longer trending Paroxysmal atrial fibrillation: Home apixaban. Started on metoprolol, as above (stopped home carvedilol). Hypertension: Restarted amlodipine 5 mg daily. Trend vitals. Coronary artery disease: Imdur ER, apixaban as above, IV metoprolol also as above. Dementia: Continue memantine, donepezil, bupropion if remaining stable and downgrade. Hypothyroidism: Continue home Synthroid Code: DNR/DNI Dispo: Med-Surg with telemetry FEN/GI: heart healthy pured DVT Prophylaxis: Apixaban 2.5 mg twice daily Consults: Speech & swallow (2) Chronic diastolic heart failure: (3) Catheter-associated urinary tract infection: (4) Paroxysmal atrial fibrillation: (5) COVID-19: (6) CAD (coronary artery disease): (7) Dementia: Plan Continue Synthroid Admission and Anticipated Discharge Date Admission Date: November 04, 2021 Supervising Physician Co-Signing Physician Notes Attending attestation Pt seen and examined in concert with Dr. Ag. In agreement with the documented findings as noted in the resident documentation with any exceptions or additions as noted here. Resting in bed without complaint of acute discomfort. On examination, S1/S2, 2-3/6 blowing systolic murmur. CTAB. Abd NT/ND BS+ve. VS and nursing notes reviewed. HFmrEF in the setting of atrial fibrillation s/p RVR - cardiology consult - d/c IVF. Continue metoprolol BID, apixaban. Monitor HR, I/O. CA-UTI, thrush - Cultures as noted - to complete course of abx and fluconazole Else see resident documentation as noted. Subjective Patient is asleep in bed upon arrival. He is easily arousable to voice. He is verbal, albeit partially unintelligible. He denies abdominal pain, dysuria, or shortness of breath. Per nursing, he ate most of dinner the night before and half of breakfast. He has been able to take all of his p.o. meds when it is mixed in with the food without crushing them. Review of Systems Review of Systems: All systems reviewed & are unremarkable except as noted in HPI & below Physical Exam Physical Exam: General: Moderately alert, verbal, frail-appearing elderly man in no acute distress. HEENT: Normocephalic, atraumatic. EOM intact. Nares patent. Oral candidiasis of the tongue appears to be improving. Oropharynx is clear. CV: Regular rate and rhythm. 3/6 systolic murmur heard loudest on the left sternal border. Respiratory: Good air movement. No crackles, rhonchi or wheezes. Abdomen: Soft, nondistended abdomen. No bruits heard on auscultation. No t enderness to deep palpation. Neuro: Able to respond verbally and follow commands. Remains improved from previous nonverbal baseline. Skin: Clean, dry, and intact. Some bruising of the forearms noted. No rash or erythema. Results & Data Results & Data ([facility]) Vital Signs (Past 12 Hours) Vital Signs Temp Pulse Resp BP BP Pulse Ox O2 Del Method 11/15/21 16:50 36.5 C 78 22 128/77 91 Room Air 11/15/21 11:06 36.4 C L 68 18 114/71 95 Room Air 11/15/21 07:39 36.4 C L 63 18 120/73 95 Room Air Resident Activity Tracking Resident Involvement: Resident Care Provided Care Provided: Adult [facility]
[2021-11-15] MEDS: SENNA 8.6 MG TAB PO SCH (21:17)
[2021-11-15] MEDS: LEVOTHYROXINE SODIUM 112 MCG TABLET PO SCH (21:17)
[2021-11-16] MEDS: metroNIDAZOLE 500 MG/100 ML BAG IV SCH ×3 (05:40→21:40)
--- NOTE | 2021-11-16 07:01 | Hospitalist Progress Note ---
Date of Service November 16, 2021 Assessment & Plan (1) Acute respiratory failure with hypoxia: Plan: 81-year-old man with history of COPD, combined CHF, and recent hospitalization for COVID-19 pneumonia, who presented to the hospital by ambulance with acute hypoxic respiratory failure secondary to sepsis. Now awaiting placement to SNF. Acute proximal respiratory failure -Initially requiring pressors on admission. Now off pressors. -No longer intubated. -Patient was saturating 91% on room air, noticeably decreased from before when he was saturating in the mid to high 90s. -Concern for acute pulmonary process, not covered by current antibiotic regimen, given patient's nonverbal baseline. -Ordered CXR, which showed possible 4.4 cm cavitary focus within the right midlung. Follow-up CT chest showed no evidence of cavitary lesion, only small bilateral pleural effusion, and trace pericardial effusion. -Obtained CT head, which showed no acute intracranial abnormality. -Patient is verbal for the first time since initiation of broadened anaerobic coverage. Improved mentation strongly suggestive of appropriate microbial coverage. Will continue to follow. * IV Flagyl Last day 11/16/2021. * IV cefepime stopped 11/14/2021. Systolic & diastolic heart failure -EF in September 2021: 45 to 50% -After vasopressors stopped, carvedilol switched to metoprolol tartrate 25 mg twice daily. This was increased to 50 mg twice daily as he went into atrial fibrillation with RVR, later decreased. -Atrial fibrillation now rate controlled on metoprolol tartrate 25 mg twice daily. -Initially on IV LR for poor p.o. intake , now stopped CA-UTI -History of E. coli, Enterococcus, Monalisa UTIs. -Started on Zosyn for empiric coverage. Switched to cefepime. Urine culture positive for Pseudomonas, Monalisa. -Patient now has oral candidiasis in addition to in his urine. Initiate treatment with fluconazole. * Holding tamsulosin, despite normal pressures as patient is on Michel catheter. * Fluconazole 200 mg IV x7 days. Increased to 400 mg. Day 6/7. Bright Red Blood per Rectum -Confirmed with fecal occult stool. -Last Hbg 10.1 -continue to trend CBC Paroxysmal atrial fibrillation: Home apixaban. Started on metoprolol, as above (stopped home carvedilol). Hypertension: Restarted amlodipine 2.5 mg BID. Trend vitals. Coronary artery disease: Imdur ER, apixaban as above, metoprolol also as above. Dementia: Continue memantine, donepezil, bupropion if remaining stable and downgrade. Hypothyroidism: Continue home Synthroid Code: DNR/DNI Dispo: Med-Surg with telemetry FEN/GI: heart healthy pured DVT Prophylaxis: Apixaban 2.5 mg twice daily Consults: Speech & swallow (2) Chronic diastolic heart failure: (3) Catheter-associated urinary tract infection: (4) Paroxysmal atrial fibrillation: (5) COVID-19: (6) CAD (coronary artery disease): (7) Dementia: Plan Continue Synthroid Admission and Anticipated Discharge Date Admission Date: November 04, 2021 Supervising Physician Co-Signing Physician Notes Attending attestation Pt seen and examined in concert with Dr. Gibbs. In agreement with the documented findings as noted in the resident documentation with any exceptions or additions as noted here. Resting in bed without complaint of acute discomfort. On examination, S1/S2, 2-3/6 blowing systolic murmur. CTAB. Abd NT/ND BS+ve. VS and nursing notes reviewed. HFmrEF in the setting of atrial fibrillation s/p RVR - cardiology consult - Continue metoprolol BID, apixaban. Monitor HR, I/O. CA-UTI, thrush - Cultures as noted - completed course of abx, complete course of fluconazole BRBPR - another single episode noted by nursing with stable CBC - monitor Else see resident documentation as noted. Subjective Patient seen at bedside sleeping. He is arousable to voice, able to respond by nodding or shaking head and 1-2 word answers, though speech is difficult to understand. Patient described some pain on palpation to right thight, denied pain elsewhere, he states he was able to tolerate some lunch. No other concerns at this time. Review of Systems Review of Systems: Negative fever chills Negative headache dizziness Negative chest pain palpitations SOB Physical Exam Constitutional: + frail appearing and comfortable Eyes: PERRL, conjunctivae normal, anicteric sclerae Neck: trachea midline, no thyromegaly Respiratory: normal respiratory effort, lungs clear to auscultation Cardiovascular: Rate/Rhythm: regular rate and regular rhythm Heart Sounds: + murmur (systolic) Chest (Breasts): normal inspection/palpation of breasts Gastrointestinal (Abdomen): Inspection/Auscultation: abdomen normal to i nspection Percussion/Palpation: abdomen soft; abdomen nontender Skin: no rashes, warm and dry Results & Data Results & Data ([facility]) Vital Signs (Past 12 Hours) Vital Signs Temp Pulse Pulse Resp BP BP Pulse Ox 11/16/21 04:00 36.5 C 68 20 123/72 93 11/15/21 23:58 36.5 C 83 16 144/85 H 92 11/15/21 23:27 87 11/15/21 19:53 36.7 C 99 H 20 124/81 95 O2 Del Method 11/16/21 04:00 Room Air 11/15/21 23:58 Room Air 11/15/21 23:27 11/15/21 19:53 Diagnostic Findings Laboratory Results WBC 6.71 K/ul (4.8-10.8) 11/16/21 11:37 RBC 3.27 M/uL (4.63-6.08) L 11/16/21 11:37 Hgb 10.1 g/dl (14.0-18.0) L 11/16/21 11:37 POC Hgb 12.6 g/dl (14.0-18.0) L 11/05/21 00:06 Hct 31.9 % (40.1-51.0) L 11/16/21 11:37 POC Hct 37 % (42-52) L 11/05/21 00:06 MCV 97.6 fL (80.0-100.0) 11/16/21 11:37 MCH 30.9 pg (25.0-34.0) 11/16/21 11:37 MCHC 31.7 g/dL (32.0-36.0) L 11/16/21 11:37 RDW Std Deviation 63.7 fL (36.4-46.3) H 11/16/21 11:37 RDW Coeff of Curtis 18.2 % (11.5-14.5) H 11/16/21 11:37 Plt Count 161 K/uL (130-400) 11/16/21 11:37 MPV 10.3 fL (9.4-12.4) 11/16/21 11:37 Immature Gran % (Auto) 4.2 % 11/15/21 05:56 Neut % (Auto) 70.4 % 11/15/21 05:56 Lymph % (Auto) 19.3 % 11/15/21 05:56 Gove % (Auto) 5.3 % 11/15/21 05:56 Eos % (Auto) 0.4 % 11/15/21 05:56 Baso % (Auto) 0.4 % 11/15/21 05:56 Neut # (Auto) 5.57 K/uL (1.4-6.5) 11/15/21 05:56 Lymph # (Auto) 1.53 K/uL (1.2-3.4) 11/15/21 05:56 Gove # (Auto) 0.42 K/uL (0.24-0.82) 11/15/21 05:56 Eos # (Auto) 0.03 K/uL (0-0.50) 11/15/21 05:56 Baso # (Auto) 0.03 K/uL (0-0.2) 11/15/21 05:56 Immature Gran # (Auto) 0.33 K/uL (0.00-0.02) H 11/15/21 05:56 Absolute Nucleated RBC 0.02 K/uL (0-0) H 11/12/21 06:27 Nucleated RBC % (auto) 0.2 % 11/12/21 06:27 Polychromasia 1+ 11/07/21 04:41 Echinocytes 2+ 11/07/21 04:41 Acanthocytes (Spur) 2+ 11/06/21 06:08 PT 11.8 Seconds (9.0-12.0) 11/07/21 04:41 INR 1.1 (0.9-1.1) 11/07/21 04:41 APTT 32.9 Seconds (21.0-31.0) H 11/07/21 04:41 PTT Ratio 1.2 11/07/21 04:41 Sample Site Art Line 11/05/21 05:22 POC pH 7.37 (7.35-7.45) 11/05/21 05:22 POC pCO2 37 mmHg (35-46) 11/05/21 05:22 POC pO2 109 mmHg (80-95) H 11/05/21 05:22 POC HCO3 21 tam/L (19-24) 11/05/21 05:22 POC Total CO2 22 mmol/L (24-31) L 11/05/21 05:22 POC Base Excess -4.0 tam/L (-9-1.8) 11/05/21 05:22 ABG pH 7.47 (7.35-7.45) H 11/04/21 15:36 ABG pH (Temp Correct) 7.375 (7.35-7.45) 11/05/21 00:06 ABG pCO2 32 mmHg (35-46) L 11/04/21 15:36 ABG pCO2 (Temp Corrct 37 mmHg (35-46) 11/05/21 00:06 ABG pO2 97 mmHg (80-95) H 11/04/21 15:36 POC ABG pO2 at Pt Temp 64 11/05/21 00:06 ABG HCO3 23 mmol/L (19-24) 11/04/21 15:36 POC ABG O2 Sat 98.0 % (90-95) H 11/05/21 05:22 ABG O2 Saturation 99.1 % (90-95) H 11/04/21 15:36 ABG Base Excess 0.3 mEq/L (-9-1.8) 11/04/21 15:36 Bunny Test NA 11/05/21 05:22 Oxygen Given 100% BiPap 11/04/21 15:36 O2 Delivery Device Ventilator 11/05/21 05:22 POC O2 Rate 20 11/05/21 05:22 POC FiO2 60 % 11/05/21 05:22 Tidal Volume 400 11/05/21 05:22 PEEP 8 11/05/21 05:22 POC Sodium 144 mmol/L (135-144) 11/05/21 00:06 Sodium 141 mmol/L (136-145) 11/16/21 05:43 POC Potassium 3.6 mmol/L (3.3-5.0) 11/05/21 00:06 Potassium 3.1 mmol/L (3.5-5.1) L 11/16/21 05:43 POC Chloride 104 mmol/L (101-112) 11/04/21 15:26 Chloride 112 mmol/L (98-107) H 11/16/21 05:43 Carbon Dioxide 23 mmol/L (21-32) 11/16/21 05:43 POC Total CO2 27 mmol/L (24-31) 11/04/21 15:26 Anion Gap 6 (3-11) 11/16/21 05:43 POC Anion Gap 16.0 mmol/L (16-25) 11/04/21 15:26 POC BUN 44 mg/dl (7-18) H 11/04/21 15:26 BUN 22 mg/dl (6-23) 11/16/21 05:43 Creatinine 1.60 mg/dl (0.6-1.4) H 11/16/21 05:43 POC Creatinine 2.1 mg/dl (0.6-1.3) H 11/04/21 15:26 Est Cr Clr Drug Dosing 38.3 ml/min 11/16/21 05:43 Est GFR ( Amer) 45.8 ml/min 11/16/21 05:43 Est GFR (Non-Af Amer) 39.5 ml/min 11/16/21 05:43 BUN/Creatinine Ratio 13.8 (10-20) 11/16/21 05:43 Glucose 107 mg/dl (70-99(Fasting)) H 11/16/21 05:43 POC Glucose 145 mg/dl (70-99) H 11/16/21 11:34 POC Glucose (other) 244 mg/dl (70-99) H 11/05/21 12:47 Osmolality 314 mOsm/kg (280-300) H 11/12/21 14:29 Lactate 1.7 mmol/L (0.4-2.0) 11/05/21 01:05 Calcium 7.7 mg/dl (8.5-10.1) L 11/16/21 05:43 POC Ioniz Calcium Eitan 1.13 mmol/l (1.12-1.32) 11/04/21 15:26 Phosphorus 3.6 mg/dl (2.5-4.9) D 11/07/21 04:41 Magnesium 1.7 mg/dl (1.7-2.4) 11/14/21 06:14 Total Bilirubin 0.6 mg/dl (0.2-1.0) D 11/05/21 05:41 Direct Bilirubin 0.2 mg/dl (0-0.2) 11/05/21 05:41 AST 144 U/L (13-39) H 11/05/21 05:41 ALT 205 U/L (7-52) H 11/05/21 05:41 Alkaline Phosphatase 148 U/L (34-104) H 11/05/21 05:41 Troponin I High Sens 29.3 pg/ml (0-20) H D 11/04/21 15:20 Total Protein 5.1 gm/dl (6.0-8.3) L D 11/05/21 05:41 Albumin 2.6 gm/dl (3.4-5.0) L 11/05/21 05:41 Procalcitonin 1.74 ng/ml (0-0.5) H 11/12/21 11:09 Urine Color Red 11/04/21 17:06 Urine Appearance Turbid (Clear) A 11/04/21 17:06 Urine pH 6.0 (4.5-7.5) 11/04/21 17:06 Ur Specific [place]mlin 1.020 (1.000-1.030) 11/04/21 17:06 Urine Protein 3+ (Negative) H 11/04/21 17:06 Urine Glucose (UA) Negative (Negative) 11/04/21 17:06 Urine Ketones Negative (Negative) 11/04/21 17:06 Urine Blood 3+ (Negative) H 11/04/21 17:06 Urine Nitrite Negative (Negative) 11/04/21 17:06 Urine Bilirubin Negative (Negative) 11/04/21 17:06 Urine Urobilinogen Negative (Negative) 11/04/21 17:06 Ur Leukocyte Esterase 3+ (Negative) H 11/04/21 17:06 Urine RBC >30 /hpf (0-4) H 11/04/21 17:06 Urine WBC >30 /hpf (0-5) H 11/04/21 17:06 Ur Epithelial Cells 0-5 /lpf (0-5) 11/04/21 17:06 Urine Bacteria Negative (Negative) 11/04/21 17:06 Urine Yeast Present (None Prsent) A 11/04/21 17:06 Urine Osmolality 404 mOsm/kg (500-800) L 11/12/21 14:30 Ur Random Sodium 132 mmol/L 11/12/21 14:30 Nasal Screen MRSA (PCR) Negative (Negative) 11/12/21 14:20 Stool Occult Bld Scrn Positive (Negative) A 11/11/21 Unknown Stl C. diff Tox B Gene Negative Cdiff Gene (Neg) 11/11/21 Unknown C. difficile Tox B Gene Cancelled 11/11/21 Unknown SARS-CoV-2 (PCR) POSITIVE (Negative) A* 11/04/21 15:32 Influenza Type A (PCR) Negative (Neg) 11/04/21 15:32 Influenza Type B (PCR) Negative (Neg) 11/04/21 15:32 RSV (RT-PCR) Negative (Neg) 11/04/21 15:32 Impressions Abdomen/Pelvis CT 11/04/21 15:52 CT SCAN OF THE ABDOMEN AND PELVIS WITHOUT IV CONTRAST CLINICAL HISTORY: Generalized abdominal pain and swelling. COMPARISON STUDY: Abdominal CT dated 07/26/2021. TECHNIQUE: CT scan of the abdomen and pelvis is performed from the lung bases to the proximal femora. Images are reviewed in the axial, sagittal, and coronal planes. IV contrast was not administered for this examination. Note that examination is suboptimal lateral and 90 contrast. A dose lowering technique was utilized adhering to the principles of ALARA. CT DOSE: 875.11 mGycm FINDINGS: Lung bases: The heart is top normal in size and without pericardial effusion. Pacemaker leads are noted. The coronary arteries are densely calcified. Dependent consolidation is seen at both lung bases. No pleural effusion is identified. The distal esophagus is mildly distended and fluid-filled. Liver: The unenhanced liver is normal in size, contour, and attenuation. There is no intrahepatic biliary ductal dilatation. Gallbladder: Surgically absent noting clips in the gallbladder fossa. Spleen: Normal in size and attenuation. There are calcified splenic granulomas. Pancreas: The unenhanced pancreas is moderately atrophic and grossly unremarkable. Adrenal glands: Unremarkable. Kidneys: The unenhanced kidneys are atrophic. Bilateral vesicoureteral stents are in place. No calcifications are seen in either ureter along the course of the stents. No calculi are identified in either kidney. There is gas within the renal collecting system bilaterally. There is severe left and moderate right hydronephrosis. There are 2 left renal cyst which measured 4.4 cm. Urothelial thickening is noted in the ureters with minimal surrounding infiltration. Abdominal vasculature: The abdominal aorta is normal in course and caliber noting advanced atherosclerotic calcification. Bowel: There is rectosigmoid fecal impaction and mild to moderate constipation. There is wall thickening of the rectosigmoid with surrounding inflammation and fluid. The appearance favors stercoral proctocolitis. There is no bowel obstruction. The appendix is normal as visualized. Peritoneum: There is trace free fluid around the rectosigmoid colon and the paracolic gutters. No intraperitoneal free air is identified. There is a fat- containing umbilical hernia. Lymphadenopathy: None. Pelvic viscera: There are bilateral fat-containing inguinal hernias. The prostate gland is diminutive versus surgically absent. Penile implants are in place. The bladder is decompressed around a suprapubic catheter. There is bladder wall thickening with surrounding inflammation and foci of intraluminal gas. Skeletal structures: The skeletal structures are osteopenic. There is moderate lumbosacral spondylosis with partial bony fusion at L4 and L5. No lytic or blastic lesions are seen. Advanced arthritic change is seen in the left hip, with moderate to advanced degenerative change on the right. There is degenerative change and partial bony fusion of the sacroiliac joints. Postlaminectomy change is noted in the lower lumbar region. IMPRESSION: 1. There is rectosigmoid fecal impaction with evidence of stercoral proctocolitis. 2. There is no bowel obstruction. No intraperitoneal free air is seen. 3. There is trace free fluid around the rectosigmoid colon and in the paracolic gutters, likely reactive. 4. Dependent airspace consolidation is seen at both lung bases. Correlate clinically for evidence of pneumonia/aspiration pneumonitis. 5. The distal esophagus is distended and fluid-filled. Note at this may place the patient at risk for aspiration. 6. Bilateral ureteral stents are in place. No calcifications are seen along the course of the stents. 7. There is moderate right and severe left hydronephrosis. 8. The bladder is decompressed around a suprapubic catheter with surrounding infiltration. Correlate with clinical findings and urinalysis for evidence of cystitis. 9. Urothelial thickening is seen within both ureters, and there is gas within the renal collecting systems bilaterally. This could be related to instrumentation/stents. Correlate with clinical findings and urinalysis for evidence of ascending urinary tract infections. 10. Additional findings as above. ACT 112: Negative or not required by law. Electronically signed by: Santy Acuña M.D. 11/04/2021 4:57 PM Retrograde Pyelogram 11/04/21 21:51 FL retrograde includes kub CLINICAL HISTORY: Bilateral ureteral stent exchange. COMPARISON STUDY: CT of the abdomen and pelvis performed earlier today. FLUOROSCOPY TIME: 33 seconds. FLUOROSCOPIC IMAGES: 9 FINDINGS: Fluoroscopy was provided during bilateral ureteral stent exchange. Stents appear appropriately positioned. Pelvicalyceal opacification is suboptimal. IMPRESSION: Fluoroscopy provided during bilateral ureteral stent exchange. ACT 112: Negative or not required by law. Electronically signed by: Glen Melvin M.D. 11/05/2021 9:04 AM Chest X-Ray 11/12/21 09:13 XR chest 1V portable HISTORY: Pneumonia. Follow-up. COMPARISON: Chest 11/05/2021. FINDINGS: There is again noted a left-sided dual-chamber pacemaker. The heart remains mildly enlarged. There are low lung volumes. Small bilateral pleural effusions have slightly progressed. Slight progression of the patchy bilateral airspace opacities most pronounced within the right midlung zone. Calcifications within the aortic knob. Mild emphysema. Possible developing cavitary focus within the right midlung zone measuring 4.4 cm. IMPRESSION: 1. Interval progression of the patchy bilateral airspace opacities and small bilateral pleural effusions. 2. Possible 4.4 cm cavitary focus within the right midlung zone. Follow-up chest CT recommended for further evaluation. 3. Cardiomegaly, unchanged. ACT 112: Negative or not required by law. Electronically signed by: Travis Cabrera M.D. 11/12/2021 9:[address] 11/12/21 10:49 CT chest diagnostic wo con CT DOSE: 545.78 mGycm HISTORY: Abnormal chest x-ray. Possible cavitary lesion. Follow-up. TECHNIQUE: Multiaxial CT images of the chest were performed without contrast. A dose lowering technique was utilized adhering to the principles of ALARA. COMPARISON: Chest CT 10/08/2021. FINDINGS: Suboptimal evaluation the chest due to the motion artifact. Mild diffuse bronchial wall thickening. However, the central airways appear patent. No pneumothorax. Small bilateral pleural effusions have progressed. The visualized liver and adrenal glands unremarkable. Multiple calcified granulomas within the spleen. The heart remains enlarged. Left-sided pacemaker again noted. Subcentimeter mediastinal lymph nodes do not meet CT criteria for pathologic involvement. These remain unchanged. Normal caliber esophagus. Trace pericardial fluid. Severe coronary artery calcifications are noted. There is moderate calcified plaque within the normal caliber thoracic aorta. No suspicious lytic or blastic osseous lesions. There are few old, healed bilateral rib fractures. Multifocal patchy bilateral airspace opacities are again noted. This is most pronounced within the right lung. This is similar to the prior study. No evidence for a cavitary lesion within the right lung to correspond to the chest x-ray abnormality. IMPRESSION: 1. No significant change in the multifocal patchy bilateral airspace opacities most pronounced on the right. 2. No cavitary lesions identified to correspond to the chest x-ray abnormality. 3. Small bilateral pleural effusions have progressed. 4. Trace pericardial effusion. ACT 112: Negative or not required by law. Electronically signed by: Travis Cabrera M.D. 11/12/2021 1:[address] 11/12/21 11:38 CT head/brain wo con CLINICAL HISTORY: 81 years-old Male with worsening AMS. Acutely altered mental status TECHNIQUE: Multiple axial CT images of the head were obtained without contrast. A dose lowering technique was utilized adhering to the principles of ALARA. CT DOSE: 823.94 mGycm COMPARISON: 12/24/2019 FINDINGS: No acute intracranial hemorrhage, midline shift, intracranial mass, hydrocephalus, territorial ischemia or abnormal extra-axial collection. Involutional changes. White matter hypodensities suggestive of chronic microvascular ischemic disease. Cerebral vascular calcifications. The calvarium is intact. Bilateral mastoid effusions. The paranasal sinuses are generally clear. Prior bilateral lens repair. Unremarkable soft tissues. IMPRESSION: No acute intracranial abnormality. ACT 112: Negative or not required by law. The above report was generated using voice recognition software. It may contain grammatical, syntax or spelling errors. Electronically signed by: Avelino Joshi M.D. 11/12/2021 12:11 PM Medications Administered Current Inpatient Medications Amlodipine Besylate (Amlodipine Besylate 5 Mg Tab) 5 mg PO DAILY FLEX Stop: 10/29/22 10:59 Last Admin: 11/16/21 08:27 Dose: 5 mg Apixaban (Apixaban 2.5 Mg Tab) 2.5 mg PO BID FLEX Stop: 12/05/21 10:29 Last Admin: 11/16/21 08:28 Dose: 2.5 mg Dextrose (Dextrose 50% 50 Ml Syringe) 25 - 50 ml IV UD PRN; Protocol PRN Reason: Hypoglycemia Protocol Stop: 12/05/21 01:35 Last Admin: 11/08/21 16:53 Dose: 25 ml Famotidine (Famotidine 20 Mg Tab) 20 mg PO DAILY FLEX Stop: 12/07/21 08:59 Last Admin: 11/16/21 08:27 Dose: 20 mg Glucagon (Glucagon For Inj 1 Mg Vial) 1 mg SQ UD PRN; Protocol PRN Reason: Hypoglycemia Protocol Stop: 12/05/21 01:35 Glucose (Glucose 40% Gel 15 Gm Tube) 15 - 30 gm PO UD PRN; Protocol PRN Reason: Hypoglycemia Protocol Stop: 12/05/21 01:35 Glucose (Glucose 10 Tab/Tube) 4 - 8 tab PO UD PRN; Protocol PRN Reason: Hypoglycemia Treatment Stop: 12/05/21 01:35 Hydralazine HCl (Hydralazine Hcl 20 Mg/Ml Vial) 10 mg IV Q6H PRN PRN Reason: Hypertension Stop: 12/12/21 10:48 Metronidazole (Flagyl) 500 mg in 100 mls @ 100 mls/hr IV Q8 FLEX; Protocol Stop: 11/17/21 13:59 Last Infusion: 11/16/21 13:59 Dose: Infused Fluconazole (Diflucan) 200 mg in 100 mls @ 100 mls/hr IV Q24H FLEX; Protocol Stop: 11/24/21 11:59 Last Infusion: 11/16/21 12:46 Dose: Infused Insulin Aspart (Insulin Aspart Per Unit) 0 units SC ACHS FLEX Stop: 12/13/21 11:29 Last Admin: 11/16/21 12:06 Dose: 6 units Ipratropium [place] (Ipratropium [place] Neb Soln 0.02% 2.5 Ml Vial) 0.5 mg INH TIDR PRN PRN Reason: Wheezing Stop: 12/08/21 19:59 Isosorbide Mononitrate (Isosorbide Gove Extended Rel 30 Mg Tabcr) 30 mg PO DAILY [facility] Stop: 12/08/21 08:59 Last Admin: 11/16/21 08:27 Dose: 30 mg Levalbuterol HCl (Levalbuterol Hcl 0.63 Mg/3 Ml Neb) 0.63 mg NEB TIDR PRN PRN Reason: Shortness Of Breath Stop: 12/08/21 19:59 Levothyroxine Sodium (Levothyroxine Sodium 112 Mcg Tablet) 112 mcg PO HS FLEX Stop: 12/04/21 20:59 Last Admin: 11/15/21 21:17 Dose: 112 mcg Metoprolol Tartrate (Metoprolol Tartrate 1 Mg/Ml Vial) 5 mg IV Q5M PRN PRN Reason: HR GREATER THAN 120 Stop: 12/09/21 09:55 Last Admin: 11/12/21 03:30 Dose: 5 mg Metoprolol Tartrate (Metoprolol Tartrate 1 Mg/Ml Vial) 5 mg IV Q4 FLEX Stop: 12/10/21 15:59 Last Admin: 11/10/21 17:42 Dose: Not Given Metoprolol Tartrate (Metoprolol Tartrate 25 Mg Tab) 25 mg PO BID FLEX Stop: 12/10/21 20:59 Last Admin: 11/16/21 08:27 Dose: 25 mg Miscellaneous (Carbohydrates For Hypoglycemia ) 15 - 30 gm PO UD PRN PRN Reason: Hypoglycemia Protocol Stop: 12/05/21 01:35 Last Admin: 11/08/21 16:17 Dose: 15 gm Polyethylene Glycol (Polyethylene (Miralax) 17 Gm Pack) 17 gm PO QAM [facility] Stop: 12/06/21 11:14 Last Admin: 11/16/21 10:50 Dose: Not Given Sennosides (Senna 8.6 Mg Tab) 17.2 mg PO HS [facility] Stop: 12/04/21 20:59 Last Admin: 11/15/21 21:17 Dose: 17.2 mg Resident Activity Tracking Resident Involvement: Resident Care Provided Care Provided: Adult Hospital Medicine
[2021-11-16 07:17] LABS: BUN Creatinine Ratio 13.8 (10-20); Calcium 7.7 mg/dl (8.5-10.1); Creatinine Clr Calc Pharmacy 38.3 ml/min; Est GFR (African American) 45.8 ml/min; Est GFR (Non-African American) 39.5 ml/min; Potassium 3.1 mmol/L (3.5-5.1)
[2021-11-16] MEDS: INSULIN ASPART PER UNIT SC SCH ×4 (08:24→21:40)
[2021-11-16] MEDS: METOPROLOL TARTRATE 25 MG TAB PO SCH ×2 (08:27→21:39)
[2021-11-16] MEDS: amLODIPine BESYLATE 5 MG TAB PO SCH (08:27)
[2021-11-16] MEDS: ISOSORBIDE MONO EXTENDED REL 30 MG TABCR PO SCH (08:27)
[2021-11-16] MEDS: FAMOTIDINE 20 MG TAB PO SCH (08:27)
[2021-11-16] MEDS: APIXABAN 2.5 MG TAB PO SCH ×2 (08:28→21:40)
[2021-11-16] MEDS: POLYETHYLENE (MIRALAX) 17 GM PACK PO SCH (10:50)
[2021-11-16] MEDS: FLUCONAZOLE 200 MG/100 ML BAG IV SCH (11:40)
[2021-11-16 11:51] LABS: Hematocrit (blood only) 31.9 % (40.1-51.0); Hemoglobin 10.1 g/dl (14.0-18.0); Mean Corpuscular Hemoglobin 30.9 pg (25.0-34.0); Mean Corpuscular Hgb Conc 31.7 g/dL (32.0-36.0); Mean Corpuscular Volume 97.6 fL (80.0-100.0); Mean Platelet Volume 10.3 fL (9.4-12.4); Platelet Count 161 K/uL (130-400); RDW Coefficient of Variation 18.2 % (11.5-14.5); RDW Standard Deviation 63.7 fL (36.4-46.3); Red Blood Count 3.27 M/uL (4.63-6.08); White Blood Count 6.71 K/ul (4.8-10.8)
[2021-11-16] MEDS: SENNA 8.6 MG TAB PO SCH (21:39)
[2021-11-16] MEDS: LEVOTHYROXINE SODIUM 112 MCG TABLET PO SCH (21:40)
[2021-11-17 06:14] LABS: Hematocrit (blood only) 33.6 % (40.1-51.0); Hemoglobin 11.1 g/dl (14.0-18.0); Mean Corpuscular Hemoglobin 31.3 pg (25.0-34.0); Mean Corpuscular Volume 94.6 fL (80.0-100.0); Mean Platelet Volume 10.4 fL (9.4-12.4); Platelet Count 162 K/uL (130-400); RDW Coefficient of Variation 18.1 % (11.5-14.5); RDW Standard Deviation 61.1 fL (36.4-46.3); Red Blood Count 3.55 M/uL (4.63-6.08); White Blood Count 6.88 K/ul (4.8-10.8)
[2021-11-17 06:43] LABS: BUN Creatinine Ratio 17.4 (10-20); Creatinine Clr Calc Pharmacy 40.8 ml/min; Est GFR (African American) 49.9 ml/min; Est GFR (Non-African American) 43.1 ml/min; Potassium 3.1 mmol/L (3.5-5.1)
--- NOTE | 2021-11-17 06:43 | Hospitalist Progress Note ---
Date of Service November 17, 2021 Assessment & Plan (1) Acute respiratory failure with hypoxia: Plan: 81-year-old man with history of COPD, combined CHF, and recent hospitalization for COVID-19 pneumonia, who presented to the hospital by ambulance with acute hypoxic respiratory failure secondary to sepsis. Now awaiting placement to SNF. Acute proximal respiratory failure -Initially requiring pressors on admission. Now off pressors. -No longer intubated. -Patient was saturating 91% on room air, noticeably decreased from before when he was saturating in the mid to high 90s. -Concern for acute pulmonary process, not covered by current antibiotic regimen, given patient's nonverbal baseline. -Ordered CXR, which showed possible 4.4 cm cavitary focus within the right midlung. Follow-up CT chest showed no evidence of cavitary lesion, only small bilateral pleural effusion, and trace pericardial effusion. -Obtained CT head, which showed no acute intracranial abnormality. -Patient is verbal for the first time since initiation of broadened anaerobic coverage. Improved mentation strongly suggestive of appropriate microbial coverage. Will continue to follow. * IV Flagyl stopped 11/16/2021. * IV cefepime stopped 11/14/2021. Systolic & diastolic heart failure -EF in September 2021: 45 to 50% -After vasopressors stopped, carvedilol switched to metoprolol tartrate 25 mg twice daily. This was increased to 50 mg twice daily as he went into atrial fibrillation with RVR, later decreased. -Atrial fibrillation now rate controlled on metoprolol tartrate 25 mg twice daily. -Initially on IV LR for poor p.o. intake , now stopped CA-UTI -History of E. coli, Enterococcus, Monalisa UTIs. -Started on Zosyn for empiric coverage. Switched to cefepime. Urine culture positive for Pseudomonas, Monalisa. -Patient now has oral candidiasis in addition to in his urine. Initiate treatment with fluconazole. * Holding tamsulosin, despite normal pressures as patient is on Michel catheter. * Fluconazole 200 mg IV x7 days. Increased to 400 mg. Day 7/. Bright Red Blood per Rectum -Confirmed with fecal occult stool. 2 instances noted blood on stool -Last Hbg 11.1 -GI consulted, possible ischemic colitis, consider holding eliquis for clinically significant bleeding -continue to trend CBC Paroxysmal atrial fibrillation: -continue apixaban. -Started on metoprolol, as above (stopped home carvedilol). increased from 25mg metoprolol BID to 50mg BID given current afib starting 3am given 500ml LR bolus repleted potassium Hypertension: Restarted amlodipine 2.5 mg BID. Trend vitals. Coronary artery disease: Imdur ER, apixaban as above, metoprolol also as above. Dementia: Continue memantine, donepezil, bupropion if remaining stable and downgrade. Hypothyroidism: Continue home Synthroid Code: DNR/DNI Dispo: Med-Surg with telemetry FEN/GI: heart healthy pured DVT Prophylaxis: Apixaban 2.5 mg twice daily Consults: Speech & swallow (2) Chronic diastolic heart failure: (3) Catheter-associated urinary tract infection: (4) Paroxysmal atrial fibrillation: (5) COVID-19: (6) CAD (coronary artery disease): (7) Dementia: Plan Continue Synthroid Admission and Anticipated Discharge Date Admission Date: November 04, 2021 Supervising Physician Co-Signing Physician Notes Attending attestation Pt seen and examined in concert with Dr. Gibbs. In agreement with the documented findings as noted in the resident documentation with any exceptions or additions as noted here. Resting in bed without complaint of acute discomfort. On examination, S1/S2, 2-3/6 blowing systolic murmur. CTAB. Abd NT/ND BS+ve. VS and nursing notes reviewed. AF w/ RVR - cardiology consult - increase metoprolol to 50mg BID and consider further intervention of therapy based on response. BRBPR without significant anemia - GI consultation defers further evaluation at this time. Monitor CBC HFmrEF in the setting of atrial fibrillation s/p RVR - cardiology consult - Continue metoprolol BID, apixaban. Monitor HR, I/O. CA-UTI, thrush - Cultures as noted - completed course of abx, complete course of fluconazole Else see resident documentation as noted. Subjective Patient seen laying in bed, calm comfortable cooperative. Patient requested to sit up higher, denies chest pain SOB. Per nursing he ate breakfast this morning. Review of Systems Review of Systems: Negative fever chills Negative headache dizziness Negative chest pain palpitations SOB Physical Exam Constitutional: + frail appearing and comfortable Eyes: PERRL, conjunctivae normal, anicteric sclerae Neck: trachea midline, no thyromegaly Respiratory: normal respiratory effort, lungs clear to auscultation Cardiovascular: Rate/Rhythm: + tachycardic and + irregularly irregular Heart Sounds: + murmur (systolic) Chest (Breasts): normal inspection/palpation of breasts Gastrointestinal (Abdomen): Inspection/Auscultation: abdomen normal to inspection Percussion/Palpation: abdomen soft; abdomen nontender Skin: no rashes, warm and dry Results & Data Results & Data ([facility]) Vital Signs (Past 12 Hours) Vital Signs Temp Pulse Pulse Resp BP Pulse Ox O2 Del Method 11/17/21 03:13 36.6 C 69 18 152/82 H 93 11/16/21 23:40 36.7 C 65 18 122/77 92 11/16/21 22:51 70 11/16/21 19:35 37.4 C 84 22 124/80 92 Room Air Laboratory Results 11/17/21 11/17/21 11/17/21 Range/Units 11:23 07:39 05:49 WBC (4.8-10.8) K/ul RBC (4.63-6.08) M/uL Hgb (14.0-18.0) g/dl Hct (40.1-51.0) % MCV (80.0-100.0) fL MCH (25.0-34.0) pg MCHC (32.0-36.0) g/dL RDW Std Deviation (36.4-46.3) fL RDW Coeff of Curtis (11.5-14.5) % Plt Count (130-400) K/uL MPV (9.4-12.4) fL Sodium 138 (136-145) mmol/L Potassium 3.1 L (3.5-5.1) mmol/L Chloride 110 H (98-107) mmol/L Carbon Dioxide 23 (21-32) mmol/L Anion Gap 5 (3-11) BUN 26 H (6-23) mg/dl Creatinine 1.49 H (0.6-1.4) mg/dl Est Cr Clr Drug Dosing 40.8 ml/min Est GFR ( Amer) 49.9 ml/min Est GFR (Non-Af Amer) 43.1 ml/min BUN/Creatinine Ratio 17.4 (10-20) Glucose 118 H (70-99(Fasting)) mg/dl POC Glucose 174 H 111 H (70-99) mg/dl Calcium 8.0 L (8.5-10.1) mg/dl 11/17/21 11/16/21 11/16/21 Range/Units 05:49 20:15 16:29 WBC 6.88 (4.8-10.8) K/ul RBC 3.55 L (4.63-6.08) M/uL Hgb 11.1 L (14.0-18.0) g/dl Hct 33.6 L (40.1-51.0) % MCV 94.6 (80.0-100.0) fL MCH 31.3 (25.0-34.0) pg MCHC 33.0 (32.0-36.0) g/dL RDW Std Deviation 61.1 H (36.4-46.3) fL RDW Coeff of Curtis 18.1 H (11.5-14.5) % Plt Count 162 (130-400) K/uL MPV 10.4 (9.4-12.4) fL Sodium (136-145) mmol/L Potassium (3.5-5.1) mmol/L Chloride (98-107) mmol/L Carbon Dioxide (21-32) mmol/L Anion Gap (3-11) BUN (6-23) mg/dl Creatinine (0.6-1.4) mg/dl Est Cr Clr Drug Dosing ml/min Est GFR ( Amer) ml/min Est GFR (Non-Af Amer) ml/min BUN/Creatinine Ratio (10-20) Glucose (70-99(Fasting)) mg/dl POC Glucose 151 H 108 H (70-99) mg/dl Calcium (8.5-10.1) mg/dl Medications Administered Current Inpatient Medications Amlodipine Besylate (Amlodipine Besylate 5 Mg Tab) 5 mg PO DAILY FLEX Stop: 12/07/21 10:59 Last Admin: 11/17/21 07:56 Dose: 5 mg Apixaban (Apixaban 2.5 Mg Tab) 2.5 mg PO BID FLEX Stop: 12/05/21 10:29 Last Admin: 11/17/21 07:57 Dose: 2.5 mg Dextrose (Dextrose 50% 50 Ml Syringe) 25 - 50 ml IV UD PRN; Protocol PRN Reason: Hypoglycemia Protocol Stop: 12/05/21 01:35 Last Admin: 11/08/21 16:53 Dose: 25 ml Famotidine (Famotidine 20 Mg Tab) 20 mg PO DAILY FLEX Stop: 12/07/21 08:59 Last Admin: 11/17/21 07:56 Dose: 20 mg Glucagon (Glucagon For Inj 1 Mg Vial) 1 mg SQ UD PRN; Protocol PRN Reason: Hypoglycemia Protocol Stop: 12/05/21 01:35 Glucose (Glucose 40% Gel 15 Gm Tube) 15 - 30 gm PO UD PRN; Protocol PRN Reason: Hypoglycemia Protocol Stop: 12/05/21 01:35 Glucose (Glucose 10 Tab/Tube) 4 - 8 tab PO UD PRN; Protocol PRN Reason: Hypoglycemia Treatment Stop: 12/05/21 01:35 Hydralazine HCl (Hydralazine Hcl 20 Mg/Ml Vial) 10 mg IV Q6H PRN PRN Reason: Hypertension Stop: 12/12/21 10:48 Fluconazole (Diflucan) 200 mg in 100 mls @ 100 mls/hr IV Q24H FLEX; Protocol Stop: 11/18/21 05:59 Last Infusion: 11/17/21 13:31 Dose: Infused Insulin Aspart (Insulin Aspart Per Unit) 0 units SC ACHS FLEX Stop: 12/13/21 11:29 Last Admin: 11/17/21 11:58 Dose: 4 units Ipratropium Cicero (Ipratropium Cicero Neb Soln 0.02% 2.5 Ml Vial) 0.5 mg INH TIDR PRN PRN Reason: Wheezing Stop: 12/08/21 19:59 Isosorbide Mononitrate (Isosorbide Jennings Extended Rel 30 Mg Tabcr) 30 mg PO DAILY FLEX Stop: 12/08/21 08:59 Last Admin: 11/17/21 07:56 Dose: 30 mg Levalbuterol HCl (Levalbuterol Hcl 0.63 Mg/3 Ml Neb) 0.63 mg NEB TIDR PRN PRN Reason: Shortness Of Breath Stop: 12/08/21 19:59 Levothyroxine Sodium (Levothyroxine Sodium 112 Mcg Tablet) 112 mcg PO HS FLEX Stop: 12/04/21 20:59 Last Admin: 11/16/21 21:40 Dose: 112 mcg Metoprolol Tartrate (Metoprolol Tartrate 1 Mg/Ml Vial) 5 mg IV Q5M PRN PRN Reason: HR GREATER THAN 120 Stop: 12/09/21 09:55 Last Admin: 11/12/21 03:30 Dose: 5 mg Metoprolol Tartrate (Metoprolol Tartrate 1 Mg/Ml Vial) 5 mg IV Q4 FLEX Stop: 12/10/21 15:59 Last Admin: 11/10/21 17:42 Dose: Not Given Metoprolol Tartrate (Metoprolol Tartrate 50 Mg Tab) 50 mg PO BID FLEX Stop: 12/17/21 20:59 Miscellaneous (Carbohydrates For Hypoglycemia ) 15 - 30 gm PO UD PRN PRN Reason: Hypoglycemia Protocol Stop: 12/05/21 01:35 Last Admin: 11/08/21 16:17 Dose: 15 gm Pantoprazole Sodium (Pantoprazole 40 Mg Tab) 40 mg PO BID FLEX Stop: 12/17/21 10:14 Last Admin: 11/17/21 10:46 Dose: 40 mg Polyethylene Glycol (Polyethylene (Miralax) 17 Gm Pack) 17 gm PO QAM FLEX Stop: 12/06/21 11:14 Last Admin: 11/17/21 07:57 Dose: Not Given Sennosides (Senna 8.6 Mg Tab) 17.2 mg PO HS FLEX Stop: 12/04/21 20:59 Last Admin: 11/16/21 21:39 Dose: 17.2 mg Resident Activity Tracking Resident Involvement: Resident Care Provided Care Provided: Adult [facility] Medicine
[2021-11-17] MEDS: amLODIPine BESYLATE 5 MG TAB PO SCH (07:56)
[2021-11-17] MEDS: FAMOTIDINE 20 MG TAB PO SCH (07:56)
[2021-11-17] MEDS: ISOSORBIDE MONO EXTENDED REL 30 MG TABCR PO SCH (07:56)
[2021-11-17] MEDS: METOPROLOL TARTRATE 25 MG TAB PO SCH (07:57)
[2021-11-17] MEDS: APIXABAN 2.5 MG TAB PO SCH ×2 (07:57→20:28)
[2021-11-17] MEDS: POLYETHYLENE (MIRALAX) 17 GM PACK PO SCH (07:57)
[2021-11-17] MEDS: INSULIN ASPART PER UNIT SC SCH ×4 (08:10→20:20)
[2021-11-17] MEDS ORDERED: METOPROLOL TARTRATE 25 MG TAB PO ONE (09:41)
[2021-11-17] MEDS ORDERED: LACTATED RINGER'S 500 ML IV ONE (09:43)
[2021-11-17] MEDS ORDERED: PANTOprazole 40 MG TAB PO SCH (10:15)
--- NOTE | 2021-11-17 11:25 | Consultation ---
Date of Consultation November 17, 2021 History of Present Illness Attending Physician: Darien June MD History of Present Illness Chart reviewed. Pt with significant comorbids, including documentation of dementia with baseline nonverbal status, consulted for "lower GI bleed." Nursing notes report single bowel movement described as "mucoid and red." He is on apixiban for A fib. His BP is stable and hgb unchanged. He remains on a regular diet. Possible ischemic colitis Follow hgb. Will defer management of anti-coag to primary service, but consider holding if pt has clinically significant bleeding. Please reconsult us if pt has persistent or clinically singificant bleeding and is a candidate for endoscopy. Allergies Allergy/AdvReac Type Severity Reaction Status Date / Time captopril Allergy Severe Anaphylaxis Verified 11/04/21 18:06 Iodinated Contrast Media Allergy Severe Anaphylaxis Verified 11/04/21 18:06 morphine Allergy Severe Anaphylaxis Verified 11/04/21 18:06 oxaprozin Allergy Severe Anaphylaxis Verified 11/04/21 18:06 torsemide Allergy Severe Anaphylaxis Verified 11/04/21 18:06 hydrocodone Allergy Mild Rash Verified 11/04/21 18:06 Home Medications Medication Instructions Recorded Confirmed Type acetaminophen 325 mg tablet 650 mg PO Q4H PRN pain #30 tabs 08/14/19 11/04/21 Rx folic acid 1 mg tablet 1 mg PO QAM #90 tabs 10/04/19 11/04/21 Rx albuterol sulfate 90 mcg/actuation 2 puff inhalation Q6H PRN 07/09/20 11/04/21 Rx aerosol inhaler (Ventolin HFA) cough/wheeze/shortness of breath #1 inhaler cyanocobalamin (vitamin B-12) 1,000 mcg PO QAM 07/16/20 11/04/21 History 1,000 mcg tablet ferrous sulfate 325 mg (65 mg 325 mg PO QAM 07/16/20 11/04/21 History iron) tablet,delayed release polyethylene glycol 3350 17 gram 17 g PO BID PRN Constipation 07/16/20 11/04/21 History oral powder packet (Miralax) ascorbic acid (vitamin C) 500 mg 500 mg PO QAM 10/22/20 11/04/21 History tablet (Vitamin C) docusate sodium 100 mg capsule 100 mg PO BID PRN Constipation 10/22/20 11/04/21 History (Stool Softener) vitamin E 268 mg (400 unit) capsule 400 unit PO HS 10/22/20 11/04/21 History albuterol sulfate 2.5 mg/3 mL 2.5 mg (3 mL) inhalation QID PRN 04/16/21 11/04/21 Rx (0.083 %) solution for nebulization shortness of breath or wheezing #75 mL isosorbide mononitrate 30 mg 30 mg PO QAM #90 tabs 05/22/21 11/04/21 Rx tablet,extended release 24 hr nystatin 100,000 unit/gram topical 1 applic topical UD PRN Skin 05/22/21 11/04/21 History cream Irritation gabapentin 300 mg capsule 300 mg PO HS #90 caps 06/14/21 11/04/21 Rx ipratropium 0.5 mg-albuterol 3 mg 3 ml inhalation Q6H PRN wheezing 06/20/21 11/04/21 Rx (2.5 mg base)/3 mL nebulization #90 mL soln levothyroxine 112 mcg tablet 112 mcg PO HS #90 tabs 07/03/21 11/04/21 Rx (Synthroid) bethanechol chloride 50 mg tablet 50 mg PO QID #360 tabs 07/09/21 11/04/21 Rx bupropion HCl 100 mg tablet,12 hr 100 mg PO BID #60 ea 08/09/21 11/04/21 Rx sustained-release apixaban 2.5 mg tablet (Eliquis) 2.5 mg PO BID #180 tabs 08/13/21 11/04/21 Rx tamsulosin 0.4 mg capsule 0.4 mg PO HS #30 caps 08/22/21 11/04/21 Rx tramadol 50 mg tablet 50 mg PO TID PRN Pain #30 tabs 09/03/21 11/04/21 Rx memantine 10 mg tablet (Namenda) 10 mg PO BID #180 tabs 09/09/21 11/04/21 Rx benzonatate 100 mg capsule 100 mg PO TID PRN cough #30 caps 09/23/21 11/04/21 Rx donepezil 10 mg tablet 10 mg PO HS #90 tabs 09/23/21 11/04/21 Rx calcium carbonate 500 mg-vitamin 1 tab PO DAILY 09/29/21 11/04/21 History D3 5 mcg (200 unit) tablet carvedilol 3.125 mg tablet 3.125 mg PO BIDWMEAL 09/29/21 11/04/21 History famotidine 40 mg tablet (Pepcid) 40 mg PO DAILYBB 09/29/21 11/04/21 History amlodipine 5 mg tablet (Norvasc) 5 mg PO QAM #30 tabs 10/12/21 11/04/21 Rx dexamethasone 6 mg tablet 6 mg PO DAILY 11/04/21 11/04/21 History simvastatin 80 mg tablet 80 mg PO DAILY #30 tabs 11/05/21 Rx Patient History Medical History Anxiety and depression Aortic stenosis Severe per 09/30/21 ECHO UZMA 0.8cm CAD (coronary artery disease) Multiple cardiac stents (x4 total)- most recent 3+ years ago 1997- LCx- stent Most recent cath 2013 per cardio records "LAD okay, LCX OM 30, RCA ok, NL EF" Chronic diastolic heart failure Chronic pain 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 On donepezil and memantine, follows with neurology Dyslipidemia History of kidney stones History of OH (myocardial infarction) 1997- Follows with Dr. Hodge/Kassidy History of recent hospitalization Admitted to [facility] 07/10/21-07/14/21- for staph bacteremia secondary to infected wound at suprapubic catheter site, UTI, acute metabolic encephalopathy; per 08/09/21 neuro note- bacteremia resolved with abxs, acute metabolic encephalopathy resolved, mental status back to baseline, UTI/GIOVANY resolved after abx. 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 SSS Initially implanted in 2008- generator change in 2017 Paroxysmal atrial fibrillation NO HX CARDIOVERSION On Eliquis Recurrent UTI Secondary hyperparathyroidism of renal origin Sleep apnea NO DEVICE USED UNABLE TO TOLERATE CPAP Stage 3b chronic kidney disease Suprapubic catheter In place secondary to neurogenic bladder Surgical History H/O total knee replacement R/L History of back surgery MULTIPLE History of cardiac cath Multiple cardiac stents (x4 total)- most recent 3+ years ago History of carpal tunnel release of both wrists History of cataract surgery B/L History of colonoscopy History of lithotripsy History of lumbar fusion History of prostate surgery Partial prostatectomy History of thyroidectomy secondary to goiter History of tooth extraction All teeth S/P cystoscopy with ureteral stent placement last 05/2021 @ [facility] Dr. William Medrano- Cystoscopy, Bilateral retrograde pyelogram, Bilateral ureteral stent exchange, Left aspiration and culture S/P TURP S/P ureteral stent placement Cysto, B/L RPG, right ureteroscopy, stent exchange: 07/06/18: LMA#5 at [facility] Cysto stent exchange (11/2018) Cystoscopy, stent exchange, suprapubic catheter (04/30/20): MAC at [facility] Family History Father Diabetes Mother Coronary heart disease Hypertension Brother Seizure Other No family history of adverse response to anesthesia Denies family history of Ovarian cancer Prostate cancer Myocardial infarction Breast cancer Colorectal cancer Social History Smoking Status: Never smoker Tobacco Type: Cigarettes Age Started Using Tobacco: 15; Age Quit Using Tobacco: 59; packs per day: 2; Second Hand Exposure: No; Do You Dip or Chew Tobacco: No; Tobacco Cessation Education Requested by Patient: No Hx Alcohol Use: No Hx Substance Use: No Preferred Language: Tajik Communication Ability: Unable Visual Impairment: No Limitations Hearing Ability: Hard of Hearing Crystalizer Required: No Beliefs That Will Affect Care: None marital status: Current Living Situation: Spouse and Family Current Living Situation Comment: spouse and daughters current occupational status: retired How many Children do You have: 3 Other Information That Helps Us Care for You: No Feels Safe at Home: Yes Safety Concerns: Feels Safe At This Time Childhood Exposure to Second-Hand Smoke: No caffeine: Yes (Coffee 3 per day.) during the past year weight has: remained stable Dental Care, Regularly: No Physical Activity Frequency: Does not Exercise Seatbelt Use: always Sunscreen Use: No Assistive Devices: Walker and Wheelchair Results & Data ([facility]) Vital Signs (Past 12 Hours) Vital Signs Temp Pulse Pulse Resp BP BP Pulse Ox 11/17/21 07:26 36.5 C 129 H 22 118/82 93 10/09/22 07:24 138 H 11/17/21 03:13 36.6 C 69 18 152/82 H 93 11/16/21 23:40 36.7 C 65 18 122/77 92 O2 Del Method 11/17/21 07:26 Room Air 11/17/21 07:24 11/17/21 03:13 11/16/21 23:40
[2021-11-17] MEDS: FLUCONAZOLE 200 MG/100 ML BAG IV SCH (12:29)
[2021-11-17] MEDS ORDERED: POTASSIUM CHLORIDE CRTAB 20 MEQ TABCR PO ONE (13:23)
[2021-11-17 16:56] LABS: Anion Gap 7.1 (3-11)
[2021-11-17 20:17] LABS: Hematocrit (blood only) 35.1 % (40.1-51.0); Hemoglobin 11.4 g/dl (14.0-18.0)
[2021-11-17] MEDS: LEVOTHYROXINE SODIUM 112 MCG TABLET PO SCH (20:28)
[2021-11-17] MEDS: SENNA 8.6 MG TAB PO SCH (20:29)
[2021-11-17] MEDS: METOPROLOL TARTRATE 50 MG TAB PO SCH (20:29)
[2021-11-18 07:01] LABS: Hematocrit (blood only) 34.3 % (40.1-51.0); Hemoglobin 10.8 g/dl (14.0-18.0); Mean Corpuscular Hemoglobin 30.9 pg (25.0-34.0); Mean Corpuscular Hgb Conc 31.5 g/dL (32.0-36.0); Mean Corpuscular Volume 98.3 fL (80.0-100.0); Mean Platelet Volume 10.9 fL (9.4-12.4); Platelet Count 173 K/uL (130-400); Red Blood Count 3.49 M/uL (4.63-6.08); White Blood Count 6.92 K/ul (4.8-10.8)
[2021-11-18 07:34] LABS: Calcium 8.2 mg/dl (8.5-10.1); Creatinine Clr Calc Pharmacy 35.9 ml/min; Est GFR (African American) 42.6 ml/min; Est GFR (Non-African American) 36.7 ml/min
[2021-11-18 08:12] LABS: Potassium 3.9 mmol/L (3.5-5.1)
[2021-11-18] MEDS: APIXABAN 2.5 MG TAB PO SCH ×2 (08:24→21:36)
[2021-11-18] MEDS: ISOSORBIDE MONO EXTENDED REL 30 MG TABCR PO SCH (08:24)
[2021-11-18] MEDS: amLODIPine BESYLATE 5 MG TAB PO SCH (08:24)
[2021-11-18] MEDS: FAMOTIDINE 20 MG TAB PO SCH (08:24)
[2021-11-18] MEDS: METOPROLOL TARTRATE 50 MG TAB PO SCH ×2 (08:24→21:36)
[2021-11-18] MEDS: INSULIN ASPART PER UNIT SC SCH ×4 (08:38→23:58)
[2021-11-18] MEDS ORDERED: POTASSIUM CHLORIDE CRTAB 20 MEQ TABCR PO STA (09:06)
[2021-11-18] MEDS ORDERED: MAGNESIUM SULFATE / D5W 1 GM/100 ML BAG IV ONE (09:06)
--- NOTE | 2021-11-18 09:35 | Hospitalist Progress Note ---
Date of Service November 18, 2021 Assessment & Plan (1) Acute respiratory failure with hypoxia: Plan: 81-year-old man with history of COPD, combined CHF, and recent hospitalization for COVID-19 pneumonia, who presented to the hospital by ambulance with acute hypoxic respiratory failure secondary to sepsis. Now awaiting placement to SNF. Paroxysmal atrial fibrillation with RVR -Currently in AF, HRs 110s-120s, not rate controlled -Continue metoprolol 50 mg BID (stopped home carvedilol) -Continue Eliquis 2.5 mg BID -Lopressor 5 mg IV, 500cc LR bolus given today. Cautious fluid administration due to EF 45-50% and aortic stenosis -Repleting electrolytes for K > 4, Mg > 2 Chronic heart failure with reduced ejection fraction -EF in 09/2021: 45 to 50% -Continue metoprolol 50 mg BID -Euvolemic volume status at this time, no diuretics being administered currently Urinary tract infection -History of E. coli, Enterococcus, Monalisa UTIs. -Completed cefepime/Flagyl and fluconazole -No longer febrile, no leukocytosis Hematochezia -Confirmed with FOBT, 2 instances noted with blood on stool -GI consulted- possible ischemic colitis, consider holding Eliquis for clinically significant bleeding recurrence -Hgb stable 10.4 -Trend CBC Acute hypoxic respiratory failure -Resolved, was likely secondary to sepsis syndrome from UTI in background of chronic CHF and aortic stenosis Hypertension -Continue amlodipine 2.5 mg BID -Continue metoprolol 50 mg BID Coronary artery disease -Continue Imdur ER, apixaban as above, metoprolol also as above Dementia -Continue memantine, donepezil, bupropion Hypothyroidism -Continue home Synthroid Code: DNR/DNI Dispo: Medical/surgical with telemetry FEN/GI: Heart healthy pured DVT Prophylaxis: Apixaban 2.5 mg BID (2) Chronic diastolic heart failure: (3) Catheter-associated urinary tract infection: (4) Paroxysmal atrial fibrillation: (5) COVID-19: (6) CAD (coronary artery disease): (7) Dementia: Plan Continue Synthroid Admission and Anticipated Discharge Date Admission Date: November 04, 2021 Supervising Physician Co-Signing Physician Notes I personally examined the patient and verified all delaney points of history and exam, discussed case, and agree with decision making with Dr Ladd No real complaints. No meaningful HPI or review of systems really obtainable today.Vitals noted, in general he is awake and alert but seems to be confused no distress. Cardio at the time I see him his heart rate right around 100 breathing unlabored no accessory muscle use good effort. Skin shows no rashes no pallor or icterus. Neuro without focal deficits. AF w/ RVR - Some likely directly arrhythmia genic, some likely reactive to dehydrationsodium having gone up and creatinine having gone up a bit. Continue beta-christina, gentle IV fluids. BRBPR without significant anemia - GI consultation defers further evaluation at this time. Monitor CBC, Overall stable HFmrEF in the setting of atrial fibrillation s/p RVR - Caution with IV fluids given reduced EF and aortic stenosis, but I do suspect some of it is reactive CA-UTI, thrush - Cultures as noted - completed course of abx, complete course of fluconazole awaiting placement, would like to be able to discuss overall goals / current condition / etc w family otherwise as above Subjective No acute events overnight. Pt denies any complaints, was interviewed while eating breakfast. Interview somewhat limited by pt's mentation. Review of Systems Review of Systems: Per subjective Physical Exam Constitutional: + frail appearing and comfortable Eyes: PERRL, conjunctivae normal, anicteric sclerae Neck: trachea midline, no thyromegaly Respiratory: normal respiratory effort, lungs clear to auscultation Cardiovascular: Rate/Rhythm: + tachycardic and + irregularly irregular Heart Sounds: + murmur (systolic) Chest (Breasts): normal inspection/palpation of breasts Gastrointestinal (Abdomen): Inspection/Auscultation: abdomen normal to inspection Percussion/Palpation: abdomen soft; abdomen nontender Skin: no rashes, warm and dry Results & Data Results & Data ([facility]) Vital Signs (Past 12 Hours) Vital Signs Temp Pulse Pulse Resp BP Pulse Ox O2 Del Method 11/18/21 07:08 36.4 C L 121 H 17 117/87 96 Room Air 11/18/21 04:00 36.4 C L 113 H 20 129/85 95 Room Air 11/17/21 23:00 36.5 C 99 H 20 125/85 92 Room Air 11/17/21 23:20 117 H Resident Activity Tracking Resident Involvement: Resident Care Provided Care Provided: Adult [facility] Medicine
[2021-11-18] MEDS: POLYETHYLENE (MIRALAX) 17 GM PACK PO SCH (10:09)
[2021-11-18] MEDS ORDERED: METOPROLOL TARTRATE 1 MG/ML VIAL IV STA (10:13)
[2021-11-18] MEDS ORDERED: LACTATED RINGER'S 500 ML IV ONE (12:28)
[2021-11-18] MEDS: LACTATED RINGER'S 1,000 ML IV SCH (15:28)
--- NOTE | 2021-11-18 17:34 | Billing Data ---
Date of Service November 18, 2021 Coding Level of Care Code 49327 Subseq Hosp Care Lvl 3
[2021-11-18] MEDS: LEVOTHYROXINE SODIUM 112 MCG TABLET PO SCH (21:36)
[2021-11-18] MEDS: SENNA 8.6 MG TAB PO SCH (21:36)
[2021-11-19 06:27] LABS: Hematocrit (blood only) 34.6 % (40.1-51.0); Hemoglobin 10.9 g/dl (14.0-18.0); Mean Corpuscular Hemoglobin 31.5 pg (25.0-34.0); Mean Corpuscular Hgb Conc 31.5 g/dL (32.0-36.0); Mean Platelet Volume 10.6 fL (9.4-12.4); Platelet Count 187 K/uL (130-400); RDW Coefficient of Variation 19.8 % (11.5-14.5); RDW Standard Deviation 70.5 fL (36.4-46.3); Red Blood Count 3.46 M/uL (4.63-6.08); White Blood Count 6.27 K/ul (4.8-10.8)
[2021-11-19 06:54] LABS: BUN Creatinine Ratio 22.4 (10-20); Calcium 8.7 mg/dl (8.5-10.1); Creatinine Clr Calc Pharmacy 36.8 ml/min; Est GFR (African American) 44.1 ml/min; Est GFR (Non-African American) 38.1 ml/min; Magnesium 2.1 mg/dl (1.7-2.4)
[2021-11-19] MEDS: APIXABAN 2.5 MG TAB PO SCH ×2 (07:46→20:43)
[2021-11-19] MEDS: amLODIPine BESYLATE 5 MG TAB PO SCH (07:46)
[2021-11-19] MEDS: METOPROLOL TARTRATE 50 MG TAB PO SCH (07:46)
[2021-11-19] MEDS: ISOSORBIDE MONO EXTENDED REL 30 MG TABCR PO SCH (07:46)
[2021-11-19] MEDS: FAMOTIDINE 20 MG TAB PO SCH (07:46)
[2021-11-19] MEDS: INSULIN ASPART PER UNIT SC SCH ×4 (08:00→22:48)
--- NOTE | 2021-11-19 09:10 | Hospitalist Progress Note ---
Date of Service November 19, 2021 Assessment & Plan (1) Acute respiratory failure with hypoxia: Plan: 81-year-old man with history of COPD, combined CHF, and recent hospitalization for COVID-19 pneumonia, who presented to the hospital by ambulance with acute hypoxic respiratory failure secondary to sepsis. Now awaiting placement to SNF. Paroxysmal atrial fibrillation with RVR -Currently in AF, HRs 110s-120s, not rate controlled. May have contribution from dehydration in hospital, compensatory tachycardia -Continue metoprolol 50 mg BID (stopped home carvedilol earlier in stay) -Continue Eliquis 2.5 mg BID -Cautious fluid administration due to EF 45-50% and aortic stenosis -HR has not improved with mIVF and Lopressor 5 mg x1 over past day -Will increase IVF to 75 cc/hr and consider metoprolol increase to 75 mg BID if HRs do not improve Chronic heart failure with reduced ejection fraction -EF in 09/2021: 45 to 50% -Continue metoprolol 50 mg BID -Euvolemic volume status at this time, no diuretics being administered currently Urinary tract infection -History of E. coli, Enterococcus, Monalisa UTIs. -Completed cefepime/Flagyl and fluconazole -No longer febrile, no leukocytosis Hematochezia -FOBT+, 2 instances noted with blood on stool -GI consulted- possible ischemic colitis, consider holding Eliquis for clinically significant bleeding recurrence -Hgb stable 10.9 -Trend CBC Acute hypoxic respiratory failure -Resolved, was likely secondary to sepsis syndrome from UTI in background of chronic CHF and aortic stenosis Hypertension -Continue amlodipine 2.5 mg BID -Continue metoprolol 50 mg BID Coronary artery disease -Continue Imdur ER, apixaban as above, metoprolol also as above Dementia -Continue memantine, donepezil, bupropion Hypothyroidism -Continue home Synthroid Code: DNR/DNI Disposition: Medical/surgical with telemetry, awaiting placement per case management FEN/GI: Heart healthy pured DVT Prophylaxis: Apixaban 2.5 mg BID (2) Chronic diastolic heart failure: (3) Catheter-associated urinary tract infection: (4) Paroxysmal atrial fibrillation: (5) COVID-19: (6) CAD (coronary artery disease): (7) Dementia: Plan Continue Synthroid Admission and Anticipated Discharge Date Admission Date: November 04, 2021 Supervising Physician Co-Signing Physician Notes I personally examined the patient and verified all delaney points of history and exam, discussed case, and agree with decision making with Dr Ladd once again no meaningful HPI or review of systems really obtainable today. Vitals noted, in general he is awake and alert but seems to be confused no distress. HR still tachycardic breathing unlabored no accessory muscle use good effort. Skin shows no rashes no pallor or icterus. Neuro without focal deficits. AF w/ RVR - Some likely directly arrhythmiaogenic, some likely reactive to dehydrationwas very gentle w IVF yesterday given low EF and -- but with Na still up (better, but still up) and Cr the same - likely was too gentle. increase fluids a bit more, follow HR. still managing mostly as compensatory at this point -- but if fails to show further improvement then increase beta christina further BRBPR without significant anemia - GI consultation defers further evaluation at this time. Monitor CBC, Overall stable HFmrEF in the setting of atrial fibrillation s/p RVR - Caution with IV fluids given reduced EF and aortic stenosis, but I do suspect some of it is reactive CA-UTI, thrush - Cultures as noted - completed course of abx, complete course of fluconazole awaiting placement, would like to be able to discuss overall goals / current condition / etc w family otherwise as above Subjective No acute events overnight. Pt denies any complaints, states he feels "like an old man". Denies palpitations, chest pain, dyspnea. Interview somewhat limited by pt's mentation. Review of Systems Review of Systems: Per subjective Physical Exam Constitutional: + frail appearing and comfortable Eyes: PERRL, conjunctivae normal, anicteric sclerae Neck: trachea midline, no thyromegaly Respiratory: normal respiratory effort, lungs clear to auscultation Cardiovascular: Rate/Rhythm: + tachycardic and + irregularly irregular Heart Sounds: + murmur (systolic) Chest (Breasts): normal inspection/palpation of breasts Gastrointestinal (Abdomen): Inspection/Auscultation: abdomen normal to inspection Percussion/Palpation: abdomen soft; abdomen nontender Skin: no rashes, warm and dry Results & Data Results & Data ([facility]) Vital Signs (Past 12 Hours) Vital Signs Temp Pulse Pulse Resp BP BP Pulse Ox 11/19/21 07:45 118 H 20 105/71 94 11/19/21 07:11 117 H 11/19/21 03:17 36.4 C L 120 H 20 117/92 94 11/18/21 23:35 36.8 C 117 H 20 122/88 94 O2 Del Method 11/19/21 07:45 Room Air 11/19/21 07:11 11/19/21 03:17 Room Air 11/18/21 23:35 Room Air Resident Activity Tracking Resident Involvement: Resident Care Provided Care Provided: Adult Hospital Medicine
[2021-11-19] MEDS: POLYETHYLENE (MIRALAX) 17 GM PACK PO SCH (09:13)
--- NOTE | 2021-11-19 12:29 | Billing Data ---
Date of Service November 19, 2021 Coding Level of Care Code 59146 Subseq Hosp Care Lvl 3
[2021-11-19] MEDS: LACTATED RINGER'S 1,000 ML IV SCH (12:49)
[2021-11-19] MEDS ORDERED: ACETAMINOPHEN 500 MG TAB PO STA (16:06)
[2021-11-19 16:57] LABS: Appearance Urine Turbid (Clear); Bacteria Urine Automated Negative (Negative); Bilirubin Urine Negative (Negative); Blood Urine 3+ (Negative); Color Urine Orange; Epithelial Cell Urine Auto 0-5 /lpf (0-5); Glucose Urine UA Negative (Negative); Ketones Urine Negative (Negative); Leukocyte Esterase Urine 3+ (Negative); Nitrite Urine Negative (Negative); Protein Urine 2+ (Negative); Specific Gravity Urine 1.016 (1.000-1.030); Urobilinogen Urine Negative (Negative); WBC Urine Automated >30 /hpf (0-5)
[2021-11-19 17:16] LABS: RBC Urine Automated >30 /hpf (0-4)
[2021-11-19] MEDS ORDERED: METOPROLOL TARTRATE 25 MG TAB PO ONE (18:23)
[2021-11-19] MEDS: METOPROLOL TARTRATE 25 MG TAB PO SCH (20:40)
[2021-11-19] MEDS: LEVOTHYROXINE SODIUM 112 MCG TABLET PO SCH (20:42)
[2021-11-19] MEDS: SENNA 8.6 MG TAB PO SCH (20:42)
[2021-11-20 06:15] LABS: Hematocrit (blood only) 32.6 % (40.1-51.0); Hemoglobin 10.5 g/dl (14.0-18.0); Mean Corpuscular Hemoglobin 31.5 pg (25.0-34.0); Mean Corpuscular Hgb Conc 32.2 g/dL (32.0-36.0); Mean Corpuscular Volume 97.9 fL (80.0-100.0); Mean Platelet Volume 10.5 fL (9.4-12.4); Platelet Count 184 K/uL (130-400); RDW Coefficient of Variation 19.1 % (11.5-14.5); Red Blood Count 3.33 M/uL (4.63-6.08); White Blood Count 6.19 K/ul (4.8-10.8)
[2021-11-20 06:46] LABS: BUN Creatinine Ratio 24.4 (10-20); Calcium 8.4 mg/dl (8.5-10.1); Creatinine Clr Calc Pharmacy 39.3 ml/min; Est GFR (African American) 47.2 ml/min; Est GFR (Non-African American) 40.8 ml/min; Potassium 3.9 mmol/L (3.5-5.1)
[2021-11-20] MEDS: POLYETHYLENE (MIRALAX) 17 GM PACK PO SCH (08:27)
[2021-11-20] MEDS: METOPROLOL TARTRATE 25 MG TAB PO SCH (08:28)
[2021-11-20] MEDS: ISOSORBIDE MONO EXTENDED REL 30 MG TABCR PO SCH (08:28)
[2021-11-20] MEDS: APIXABAN 2.5 MG TAB PO SCH (08:29)
[2021-11-20] MEDS: FAMOTIDINE 20 MG TAB PO SCH (08:29)
[2021-11-20] MEDS: INSULIN ASPART PER UNIT SC SCH ×2 (08:37→12:03)
[2021-11-20] MEDS: amLODIPine BESYLATE 5 MG TAB PO SCH (09:29)
--- NOTE | 2021-11-20 10:01 | Hospitalist Progress Note ---
Date of Service November 20, 2021 Assessment & Plan (1) Acute respiratory failure with hypoxia: Plan: 81-year-old man with history of COPD, combined CHF, and recent hospitalization for COVID-19 pneumonia, who presented to the hospital by ambulance with acute hypoxic respiratory failure secondary to sepsis. Now awaiting placement to SNF. Paroxysmal atrial fibrillation with RVR -Currently in AF, HRs 110s-120s, not rate controlled. May have contribution from dehydration in hospital, compensatory tachycardia -Continue metoprolol 50 mg BID (stopped home carvedilol earlier in stay) -Continue Eliquis 2.5 mg BID -Cautious fluid administration due to EF 45-50% and aortic stenosis -HR has not improved with mIVF and Lopressor 5 mg x1 over past day -Will increase IVF to 75 cc/hr and consider metoprolol increase to 75 mg BID if HRs do not improve Chronic heart failure with reduced ejection fraction -EF in 09/2021: 45 to 50% -Continue metoprolol 50 mg BID -Euvolemic volume status at this time, no diuretics being administered currently Urinary tract infection -History of E. coli, Enterococcus, Monalisa UTIs. -Completed cefepime/Flagyl and fluconazole -No longer febrile, no leukocytosis Hematochezia -FOBT+, 2 instances noted with blood on stool -GI consulted- possible ischemic colitis, consider holding Eliquis for clinically significant bleeding recurrence -Hgb stable 10.9 -Trend CBC Acute hypoxic respiratory failure -Resolved, was likely secondary to sepsis syndrome from UTI in background of chronic CHF and aortic stenosis Hypertension -Continue amlodipine 2.5 mg BID -Continue metoprolol 50 mg BID Coronary artery disease -Continue Imdur ER, apixaban as above, metoprolol also as above Dementia -Continue memantine, donepezil, bupropion Hypothyroidism -Continue home Synthroid Code: DNR/DNI Disposition: Medical/surgical with telemetry, awaiting placement per case management FEN/GI: Heart healthy pured DVT Prophylaxis: Apixaban 2.5 mg BID (2) Chronic diastolic heart failure: (3) Catheter-associated urinary tract infection: (4) Paroxysmal atrial fibrillation: (5) COVID-19: (6) CAD (coronary artery disease): (7) Dementia: Plan Continue Synthroid Admission and Anticipated Discharge Date Admission Date: November 04, 2021 Subjective No acute events overnight. Pt denies any complaints, states he feels "like an old man". Denies palpitations, chest pain, dyspnea. Interview somewhat limited by pt's mentation. Review of Systems Review of Systems: Per subjective Physical Exam Constitutional: + frail appearing and comfortable Eyes: PERRL, conjunctivae normal, anicteric sclerae Neck: trachea midline, no thyromegaly Respiratory: normal respiratory effort, lungs clear to auscultation Cardiovascular: Rate/Rhythm: + tachycardic and + irregularly irregular Heart Sounds: + murmur (systolic) Chest (Breasts): normal inspection/palpation of breasts Gastrointestinal (Abdomen): Inspection/Auscultation: abdomen normal to inspection Percussion/Palpation: abdomen soft; abdomen nontender Skin: no rashes, warm and dry Results & Data Results & Data ([facility]) Vital Signs (Past 12 Hours) Vital Signs Temp Pulse Resp BP Pulse Ox O2 Del Method 11/20/21 08:00 37.0 C 110 H 18 129/71 96 11/20/21 03:29 36.6 C 106 H 18 137/99 92 Room Air 11/19/21 23:18 36.6 C 105 H 18 134/90 95 Room Air Resident Activity Tracking Resident Involvement: Resident Care Provided Care Provided: Adult Hospital Medicine
--- NOTE | 2021-11-20 11:48 | Discharge Summary ---
Date of Service November 20, 2021 Admission HPI Per Admitting Provider 81-year-old male who was discharged in our facility 10/12/2021 to transitional bed in [place] after COVID-pneumonia resents by EMS with acute hypoxic respiratory failure. Patient has a background history of COPD and also combined heart failure. In the emergency department he is hypotensive despite volume resuscitation. He is breathing with BiPAP. Initial blood gas showed him to be with a respiratory alkalosis. He has maybe mild bilateral lower lobe infiltrates however his COVID-positive test was September 19 and then is unclear whether these are residual. Patient has a history of catheter associated urinary tract infections at the cc of suprapubic catheter) and was seen by urology on the he is also known to have chronic ureteral stents in place. Patient is with a leukocytosis, lactic acid of 3.6 acute on chronic kidney disease stage III elevation of transaminases which could be from shock liver from his hypotension Admission Exam Per Admitting Provider The patient appeared well nourished and normally developed. Vital signs as documented. Head exam is normocephalic atraumatic Neck is without JVD, thyromegaly, or carotid bruits. Lungs are coarse bilaterally Cardiac exam, Rhythm is regular.. No murmurs, rubs or gallops. Abdominal exam reveals hypoactive bowel sounds, distented tympanitic and painful Extremities are trace edematous and both pedal pulses are present Neurologic exam is alert and oriented x2, he can spontaneously move all extremities Principal Diagnosis Deconditioning, atrial flutter with RVR, sepsis due to catheter associated urinary tract infection Discharge Exam Constitutional: + frail appearing and comfortable Eyes: PERRL, conjunctivae normal, anicteric sclerae Neck: trachea midline, no thyromegaly Respiratory: normal respiratory effort, lungs clear to auscultation Cardiovascular: Rate/Rhythm: + tachycardic and + irregularly irregular Heart Sounds: + murmur (systolic) Chest (Breasts): normal inspection/palpation of breasts Gastrointestinal (Abdomen): Inspection/Auscultation: abdomen normal to inspection Percussion/Palpation: abdomen soft; abdomen nontender Skin: no rashes, warm and dry Discharge Data Allergies Allergy/AdvReac Type Severity Reaction Status Date / Time captopril Allergy Severe Anaphylaxis Verified 11/04/21 18:06 Iodinated Contrast Media Allergy Severe Anaphylaxis Verified 11/04/21 18:06 morphine Allergy Severe Anaphylaxis Verified 11/04/21 18:06 oxaprozin Allergy Severe Anaphylaxis Verified 11/04/21 18:06 torsemide Allergy Severe Anaphylaxis Verified 11/04/21 18:06 hydrocodone Allergy Mild Rash Verified 11/04/21 18:06 Consultations 11/04/21 17:20 ED Decision to Admit Stat 11/04/21 20:34 Consult Odd Bundle Worker Routine 11/05/21 01:01 Consult Urology Routine 11/17/21 10:06 Consult Gastroenterology Routine Procedures Performed Operation Date: 11/04/21 22:45 Actual Procedures p Cystoscopy with Bilateral Retrograde Pyelogram, Right Aspiration, Bilateral Ureteral Stent Exchange, with Exchange of Suprapubic Catheter(Bilateral) - William Medrano, Ordered Studies 11/04/21 US - OR guided needle placemen Routine 11/04/21 15:52 CT abd pelvis wo con Stat 11/04/21 21:51 FL retrograde includes kub Urgent 11/12/21 10:49 CT chest diagnostic wo con Routine 11/12/21 11:38 CT head/brain wo con Urgent Hospital Course (1) Acute respiratory failure with hypoxia: (1) Acute respiratory failure with hypoxia: Plan: 81-year-old man with history of dementia, COPD, combined CHF, and recent hospitalization for COVID-19 pneumonia, who presented to the hospital by ambulance with acute hypoxic respiratory failure secondary to sepsis. Discharged to [facility] on 11/20 Deconditioning -Pt exhibiting significant weakness and frailty in hospital secondary to his r ecent illness -Discussed with pt's on day of discharge- of note, she is pt's medical decision-maker as he is illiterate and has dementia. Pt's requested this information be relayed to [place] as she must be aware of/approve his medical interventions Paroxysmal atrial fibrillationwith RVR -Currently in atrial flutter, HRs improved to 100s by day of discharge. May have contribution from dehydration in hospital, compensatory tachycardia -Continue metoprolol 50 mg BID (stopped home carvedilol earlier in stay, can be resumed pending BP/HR response) -Continue Eliquis 2.5 mg BID -Cautious fluid administration given due to EF 45-50% and aortic stenosis Hematuria -11/04- pt had cystoscopy with b/l retrograde pyelogram, ureteral stent exchange, right aspiration, exchange of catheter -Incident of mild hematuria on 11/19, pt had suprapubic catheter in place. Hgb remained stable above 10, hemodynamically stable. Continue to monitor for hematuria Urinary tract infection -History of E. coli, Enterococcus, Monalisa UTIs. -Completed cefepime/Flagyl and fluconazole in hospital -No longer febrile, no leukocytosis Hematochezia -FOBT+, 2 instances noted with blood on stool -GI consulted- possible ischemic colitis, consider holding Eliquis for clinically significant bleeding recurrence -Hgb stable 10.5 on day of discharge Chronic heart failure with reduced ejection fraction -EF in 09/2021: 45 to 50% -Continue metoprolol 50 mg BID -Euvolemic volume status on discharge Acute hypoxic respiratory failure -Resolved, was likely secondary to sepsis syndrome from UTI in background of chronic CHF and aortic stenosis Hypertension -Continue amlodipine 2.5 mg BID -Continue metoprolol 50 mg BID Coronary artery disease -Continue Imdur ER, apixaban as above, metoprolol also as above Dementia -Continue memantine, donepezil, bupropion Hypothyroidism -Continue home Synthroid Code:DNR/DNI Disposition:Discharged to [facility] FEN/GI:Heart healthy pured DVT Prophylaxis:Apixaban 2.5 mg BID (2) Chronic diastolic heart failure: (3) Catheter-associated urinary tract infection: (4) Paroxysmal atrial fibrillation: (5) COVID-19: (6) CAD (coronary artery disease): (7) Dementia: Total Time Total Time Spent Total Time Spent (In Minutes): <30 Discharge Plan Discharge Items Patient Disposition: Transfer Inpatient Rehab Fac Reason For Visit: SEPSIS, URINARY SOURCE Discharge Diagnosis: Deconditioning, weakness secondary to recent illness Activity: Resume your previous activity Non-emergency contact: Primary Care Provider Call non-emergency contact if: you have any medication questions, your symptoms worsen, your pain is worsening and you have a fever Follow-up/Referrals: RicCelina garay DO [Primary Care Provider] - Diet: Heart Healthy Addtl Attending Provider Instructions: (1) Acute respiratory failure with hypoxia: Plan: 81-year-old man with history of dementia, COPD, combined CHF, and recent hospitalization for COVID-19 pneumonia, who presented to the hospital by ambulance with acute hypoxic respiratory failure secondary to sepsis. Discharged to [facility] on 11/20 Deconditioning -Pt exhibiting significant weakness and frailty in hospital secondary to his recent illness -Discussed with pt's on day of discharge- of note, she is pt's medical decision-maker as he is illiterate and has dementia. Pt's requested this information be relayed to [place] as she must be aware of/approve his medical interventions Paroxysmal atrial fibrillationwith RVR -Currently in atrial flutter, HRs improved to 100s by day of discharge. May have contribution from dehydration in hospital, compensatory tachycardia -Continue metoprolol 50 mg BID (stopped home carvedilol earlier in stay and replaced with metoprolol, carvedilol can be resumed pending BP/HR response) -Continue Eliquis 2.5 mg BID -Cautious fluid administration given due to EF 45-50% and aortic stenosis Hematuria -11/04- pt had cystoscopy with b/l retrograde pyelogram, ureteral stent exchange, right aspiration, exchange of catheter -Incident of mild hematuria on 11/19, pt had suprapubic catheter in place. Hgb remained stable above 10, hemodynamically stable. Continue to monitor for hematuria Urinary tract infection -History of E. coli, Enterococcus, Monalisa UTIs. -Completed cefepime/Flagyl and fluconazole in hospital -No longer febrile, no leukocytosis Hematochezia -FOBT+, 2 instances noted with blood on stool -GI consulted- possible ischemic colitis, consider holding Eliquis for clinically significant bleeding recurrence -Hgb stable 10.5 on day of discharge Chronic heart failure with reduced ejection fraction -EF in 09/2021: 45 to 50% -Continue metoprolol 50 mg BID -Euvolemic volume status on discharge Acute hypoxic respiratory failure -Resolved, was likely secondary to sepsis syndrome from UTI in background of chronic CHF and aortic stenosis Hypertension -Continue amlodipine 2.5 mg BID -Continue metoprolol 50 mg BID Coronary artery disease -Continue Imdur ER, apixaban as above, metoprolol also as above Dementia -Continue memantine, donepezil, bupropion Hypothyroidism -Continue home Synthroid Code:DNR/DNI Disposition:Discharged to [facility] FEN/GI:Heart healthy pured DVT Prophylaxis:Apixaban 2.5 mg BID Pending Studies at Discharge: No Stand-Alone Forms: My [employer] Skilled Items Patient informed of condition?: Yes DNR: Yes Discharge Level of Care: Skilled Communicable Disease: No Discharge Prognosis: Stable Lines: None Urinary Catheter: Yes Medications and DC Order Prescriptions: Continued folic acid 1 mg tablet 1 mg PO QAM Qty: 90 1RF albuterol sulfate 2.5 mg /3 mL (0.083 %) solution for nebulization 2.5 mg inhalation QID PRN (Reason: shortness of breath or wheezing) Qty: 75 5RF isosorbide mononitrate 30 mg tablet extended release 24 hr 30 mg PO QAM Qty: 90 1RF gabapentin 300 mg capsule 300 mg PO HS Qty: 90 3RF ipratropium-albuterol 0.5 mg-3 mg(2.5 mg base)/3 mL solution for nebulization 3 ml inhalation Q6H PRN (Reason: wheezing) Qty: 90 0RF levothyroxine [Synthroid] 112 mcg tablet 112 mcg PO HS Qty: 90 1RF bethanechol chloride 50 mg tablet 50 mg PO QID Qty: 360 1RF Eliquis 2.5 mg tablet 2.5 mg PO BID Qty: 180 1RF tramadol 50 mg tablet 50 mg PO TID PRN (Reason: Pain) Qty: 30 0RF memantine [Namenda] 10 mg tablet 10 mg PO BID Qty: 180 3RF donepezil 10 mg tablet 10 mg PO HS Qty: 90 3RF benzonatate 100 mg capsule 100 mg PO TID PRN (Reason: cough) Qty: 30 0RF simvastatin 80 mg tablet 80 mg PO DAILY Qty: 30 2RF bupropion HCl 100 mg tablet sustained-release 12 hr 100 mg PO BID Qty: 60 5RF acetaminophen 325 mg Tablet 650 mg PO Q4H PRN (Reason: pain) Qty: 30 0RF ferrous sulfate 325 mg (65 mg iron) tablet,delayed release (DR/EC) 325 mg PO QAM polyethylene glycol 3350 [Miralax] 17 gram powder in packet 17 g PO BID PRN (Reason: Constipation) cyanocobalamin (vitamin B-12) 1,000 mcg Tablet 1,000 mcg PO QAM ascorbic acid (vitamin C) [Vitamin C] 500 mg Tablet 500 mg PO QAM docusate sodium [Stool Softener] 100 mg Capsule 100 mg PO BID PRN (Reason: Constipation) vitamin E 400 unit Capsule 400 unit PO HS albuterol sulfate [Ventolin HFA] 90 mcg/actuation Hfa Aerosol Inhaler 2 puff inhalation Q6H PRN (Reason: cough/wheeze/shortness of breath) Qty: 1 0RF nystatin 100,000 unit/gram cream 1 applic topical UD PRN (Reason: Skin Irritation) tamsulosin 0.4 mg capsule 0.4 mg PO HS Qty: 30 0RF carvedilol 3.125 mg tablet 3.125 mg PO BIDWMEAL famotidine [Pepcid] 40 mg tablet 40 mg PO DAILYBB calcium carbonate-vitamin D3 500 mg-5 mcg (200 unit) Tablet 1 tab PO DAILY amlodipine [Norvasc] 5 mg Tablet 5 mg PO QAM Qty: 30 0RF dexamethasone 6 mg tablet 6 mg PO DAILY Rx Instructions: and daughter states rehab sent him home and he is to take 1 tab daily. Discharge Orders: Discharge Order (Routine); Ordered 11/20/21 Ordered By: Te Ladd Admission Data Admit Date/Time: 11/04/21 17:48 Attending Provider: Surya Alan Admit Provider: Ashvin Bloom Primary Care Provider: Celina Saunders Other Providers: Ashvin Bloom ; Taran Ramirez ; Rodo Hong ; [facility] ; Sb Cannon ; Darien June Supervising Physician Co-Signing Physician Notes I personally examined the patient and verified all delaney points of history and exam, discussed case, and agree with decision making with Dr Ladd no complaints but very limited HPI and ROS. vitals noted HR improved. cardio irreg irreg but rates better lungs cta b/l no r/r/w good effort skin no rashes no pallor or icterus AF w/ RVR - Some likely directly arrhythmiaogenic, some likely reactive to dehydrationhas improved. safe for SNF - would definitely want to encourage PO intake, follow fluid intake BRBPR without significant anemia - GI consultation defers further evaluation at this time. Monitor CBC periodically, Overall stable HFmrEF in the setting of atrial fibrillation s/p RVR - compensated - continue med management and follow CA-UTI, thrush - Cultures as noted - completed course of abx, complete course of fluconazole for SNF - goal of improved functional status w PT/OT, definitely follow PO intake closely/carefully, periodic-serial CBC, BMP otherwise as above Resident Activity Tracking Resident Involvement: Resident Care Provided Care Provided: Adult [facility] Medicine
--- NOTE | 2021-11-20 17:04 | Billing Data ---
Date of Service November 20, 2021 Coding Level of Care Code D/C DAY MANAGEMENT <30 MINS
== END 2021-11-20 16:22 | DRG 659 ==
LOC: ED 15:05 → 1E 17:48 → SUATTDRO 17:48 → 1E 18:43 → 2S 11-08 15:55

== ENCOUNTER 2022-02-05 13:29 | Inpatient (IN) ==
--- NOTE | 2022-02-05 14:00 | Emergency Department Note ---
History of Present Illness General Chief complaint: Edema To Extremity Stated complaint: BILAT. ARM EDEMA Time Seen by Provider: 02/05/22 13:52 History of Present Illness This is an 82-year-old male that presents to the emergency department via EMS with complaints of "bilateral arm edema". The patient notes that he has had upper extremity edema ongoing now for a few months. He denies any fevers, chills, chest pain, shortness of breath, nausea, vomiting or abdominal pain. Family not currently at bedside but patient notes they should be here soon. Per review of the chart he has an extensive past medical history including a complicated recent infectious history. 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 It appears that he was at a rehabilitation/nursing facility for a period of time and now currently is at home. To help obtain further history I obtained consent from the patient and then called his daughter Karla. This was at [phone]. Phone call took place around 2:09 PM. Her Anabelle was also close by and placed her on speaker phone. The are concerned about the patient Alfredo here today. They note that he has had bilateral upper extremity edema for the past few months and now fair amount of drainage from the right arm. In addition they are concerned that he may have a UTI as there seems to be a very strong smell to the urine. They note he is due to have his stents changed soon. Home Medications Medication Instructions Recorded Confirmed Type folic acid 1 mg tablet 1 mg PO QAM #90 tabs 10/04/19 12/20/21 Rx albuterol sulfate 90 mcg/actuation 2 puff inhalation Q6H PRN 07/09/20 02/05/22 Rx aerosol inhaler (Ventolin HFA) cough/wheeze/shortness of breath #1 inhaler cyanocobalamin (vitamin B-12) 1,000 mcg PO QAM 07/16/20 02/05/22 History 1,000 mcg tablet ferrous sulfate 325 mg (65 mg 325 mg PO QAM 07/16/20 12/20/21 History iron) tablet,delayed release polyethylene glycol 3350 17 gram 17 g PO BID PRN Constipation 07/16/20 02/05/22 History oral powder packet (Miralax) ascorbic acid (vitamin C) 500 mg 500 mg PO QAM 10/22/20 02/05/22 History tablet (Vitamin C) docusate sodium 100 mg capsule 100 mg PO BID PRN Constipation 10/22/20 02/05/22 History (Stool Softener) vitamin E 268 mg (400 unit) capsule 400 unit PO HS 10/22/20 02/05/22 History albuterol sulfate 2.5 mg/3 mL 2.5 mg (3 mL) inhalation QID PRN 04/16/21 02/05/22 Rx (0.083 %) solution for nebulization shortness of breath or wheezing #75 mL isosorbide mononitrate 30 mg 30 mg PO QAM #90 tabs 05/22/21 12/20/21 Rx tablet,extended release 24 hr nystatin 100,000 unit/gram topical 1 applic topical UD PRN Skin 05/22/21 02/05/22 History cream Irritation gabapentin 300 mg capsule 300 mg PO HS #90 caps 06/14/21 02/05/22 Rx ipratropium 0.5 mg-albuterol 3 mg 3 ml inhalation Q6H PRN wheezing 06/20/21 02/05/22 Rx (2.5 mg base)/3 mL nebulization #90 mL soln bupropion HCl 100 mg tablet,12 hr 100 mg PO BID #60 ea 08/09/21 02/05/22 Rx sustained-release apixaban 2.5 mg tablet (Eliquis) 2.5 mg PO BID #180 tabs 08/13/21 02/05/22 Rx tamsulosin 0.4 mg capsule 0.4 mg PO HS #30 caps 08/22/21 02/05/22 Rx tramadol 50 mg tablet 50 mg PO TID PRN Pain #30 tabs 09/03/21 02/05/22 Rx memantine 10 mg tablet (Namenda) 10 mg PO BID #180 tabs 09/09/21 02/05/22 Rx benzonatate 100 mg capsule 100 mg PO TID PRN cough #30 caps 09/23/21 02/05/22 Rx donepezil 10 mg tablet 10 mg PO HS #90 tabs 09/23/21 02/05/22 Rx calcium carbonate 500 mg-vitamin 1 tab PO DAILY 09/29/21 02/05/22 History D3 5 mcg (200 unit) tablet acetaminophen 325 mg tablet 650 mg PO Q6H PRN pain #30 tabs 12/18/21 02/05/22 Rx amlodipine 5 mg tablet (Norvasc) 5 mg PO QAM #90 tabs 12/30/21 02/05/22 Rx carvedilol 3.125 mg tablet 3.125 mg PO BIDWMEAL #180 tabs 01/06/22 02/05/22 Rx levothyroxine 112 mcg tablet 112 mcg PO HS #90 tabs 01/15/22 02/05/22 Rx (Synthroid) famotidine 40 mg tablet (Pepcid) 40 mg PO DAILYBB #90 tabs 01/20/22 02/05/22 Rx bethanechol chloride 50 mg tablet 50 mg PO QID #360 tabs 01/27/22 02/05/22 Rx simvastatin 80 mg tablet 80 mg PO HS 02/05/22 02/05/22 History Allergies Allergy/AdvReac Type Severity Reaction Status Date / Time captopril Allergy Severe Anaphylaxis Verified 02/05/22 17:27 Iodinated Contrast Media Allergy Severe Anaphylaxis Verified 02/05/22 17:27 morphine Allergy Severe Anaphylaxis Verified 02/05/22 21:27 oxaprozin Allergy Severe Anaphylaxis Verified 02/05/22 17:27 torsemide Allergy Severe Anaphylaxis Verified 02/05/22 17:27 hydrocodone Allergy Mild Rash Verified 02/05/22 17:27 Past Med/Surg History Medical History Anxiety and depression Aortic stenosis Severe per 09/30/21 ECHO UZMA 0.8cm CAD (coronary artery disease) Multiple cardiac stents (x4 total)- most recent 3+ years ago 1997- LCx- stent Most recent cath 2013 per cardio records "LAD okay, LCX OM 30, RCA ok, NL EF" Chronic diastolic heart failure Chronic pain 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 On donepezil and memantine, follows with neurology Dyslipidemia History of kidney stones History of CT (myocardial infarction) 1997- Follows with Dr. Hodge/Kassidy History of recent hospitalization Admitted to [facility] 07/10/21-07/14/21- for staph bacteremia secondary to infected wound at suprapubic catheter site, UTI, acute metabolic encephalopa thy; per 08/09/21 neuro note- bacteremia resolved with abxs, acute metabolic encephalopathy resolved, mental status back to baseline, UTI/GIOVANY resolved after abx. Hydronephrosis 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 SSS Initially implanted in 2008- generator change in 2017 Paroxysmal atrial fibrillation NO HX CARDIOVERSION On Eliquis Recurrent UTI Secondary hyperparathyroidism of renal origin Sleep apnea NO DEVICE USED UNABLE TO TOLERATE CPAP Stage 3b chronic kidney disease Suprapubic catheter In place secondary to neurogenic bladder Surgical History H/O total knee replacement R/L History of back surgery MULTIPLE History of cardiac cath Multiple cardiac stents (x4 total)- most recent 3+ years ago History of carpal tunnel release of both wrists History of cataract surgery B/L History of colonoscopy History of lithotripsy History of lumbar fusion History of prostate surgery Partial prostatectomy History of thyroidectomy secondary to goiter History of tooth extraction All teeth S/P cystoscopy with ureteral stent placement last 05/2021 @ [facility] Dr. William Medrano- Cystoscopy, Bilateral retrograde pyelogram, Bilateral ureteral stent exchange, Left aspiration and culture S/P TURP S/P ureteral stent placement Cysto, B/L RPG, right ureteroscopy, stent exchange: 07/06/18: LMA#5 at [facility] Cysto stent exchange (11/2018) Cystoscopy, stent exchange, suprapubic catheter (04/30/20): MAC at [facility] Family History Father Diabetes Mother Coronary heart disease Hypertension Brother Seizure Other No family history of adverse response to anesthesia Denies family history of Ovarian cancer Prostate cancer Myocardial infarction Breast cancer Colorectal cancer Social History Smoking Status: Former smoker Tobacco Type: Cigarettes Age Started Using Tobacco: 15; Age Quit Using Tobacco: 59; packs per day: 2; Second Hand Exposure: No; Hx Alcohol Use: No Hx Substance Use: No Preferred Language: Guyanese Communication Ability: Unable Visual Impairment: No Limitations Hearing Ability: Hard of Hearing Steam Finisher Required: No Beliefs That Will Affect Care: None marital status: Current Living Situation: Spouse and Family Current Living Situation Comment: spouse and daughters current occupational status: retired How many Children do You have: 3 Feels Safe at Home: Yes Childhood Exposure to Second-Hand Smoke: No caffeine: Yes (Coffee 3 per day.) during the past year weight has: remained stable Dental Care, Regularly: No Physical Activity Frequency: Does not Exercise Seatbelt Use: always Sunscreen Use: No Assistive Devices: Walker and Wheelchair Review of Systems A total of 10 systems reviewed and were otherwise negative Physical Exam Vital Signs Vital Signs - 24 hr 02/05/22 13:48 02/05/22 13:48 02/05/22 13:58 Temperature 36.7 C Temperature Source Oral Pulse Rate 71 Pulse Rate [Right Finger] 71 Respiratory Rate 20 Blood Pressure 106/60 Blood Pressure Mean 75 Pulse Oximetry 95 97 Oxygen Delivery Method Room Air Room Air Sepsis Recent Fever Within 48 Hours No Sepsis New/Unexplained Change in Mental Status No Sepsis Action Taken by Nursing No Action Required VITAL SIGNS - Vital signs and nursing notes were reviewed. Stable and afebrile. GENERAL -82-year-old male appearing his stated age who is in no acute distress. Communicates well with provider and answers questions appropriately. SKIN - Without rashes. No meningeal or petechial rash. There is some bilateral upper extremity edema most prominent overlying the triceps regions without any circumferential firmness or evidence of compartment syndrome. There are no open wounds. Moist region noted to the posterior aspect of the right upper extremity. No erythema. HEAD - NC/AT. EYES - PERRL with EOMI bilaterally. Sclera anicteric. EARS - No deformities of external structures noted on gross examination bilaterally. NOSE - Midline and without cyanosis. No epistaxis or purulent drainage noted. MOUTH/OROPHARYNX - Without perioral cyanosis. NECK - No nuchal rigidity. LUNGS -clear to auscultation. CARDIAC - RRR ABDOMEN - Abdominal contour normal without pulsations or visible masses. BS normoactive all four quadrants. No tenderness to palpation. No guarding or rigidity. EXTREMITIES - No clubbing or peripheral cyanosis. Mild edema present in the upper extremities that is chronic appearing without signs of overt infection. +5/5 strength noted in UE/LE bilaterally. NEUROLOGIC - Cranial nerves II through XII grossly intact. PSYCH -patient is alert, answers questions appropriately. Course Administered Medications Discontinued Medications Cefepime HCl (Maxipime) 2,000 mg in 20 mls @ 5 mls/min IV NOW STA; Protocol Stop: 02/05/22 17:27 Last Admin: 02/05/22 17:39 Dose: 5 mls/min Documented By: AM Vancomycin HCl 1,750 mg/ (Sodium Chloride) 535 mls @ 200 mls/hr IV NOW ONE Stop: 02/05/22 20:04 Last Admin: 02/05/22 18:07 Dose: 200 mls/hr Documented By: AM Potassium Chloride (Potassium Chloride Crtab 20 Meq Tabcr) 40 meq PO NOW STA Stop: 02/05/22 18:19 Last Admin: 02/05/22 20:08 Dose: 40 meq Documented By: MYRIAM Medical Decision Making Laboratory Data Result diagrams: 02/05/22 14:20 02/05/22 14:20 Lab Results 02/05/22 02/05/22 02/05/22 Range/Units 14:10 14:20 14:20 WBC 10.40 (4.8-10.8) K/ul RBC 2.71 L (4.63-6.08) M/uL Hgb 8.5 L (14.0-18.0) g/dl Hct 26.6 L (40.1-51.0) % MCV 98.2 (80.0-100.0) fL MCH 31.4 (25.0-34.0) pg MCHC 32.0 (32.0-36.0) g/dL RDW Std Deviation 49.8 H (36.4-46.3) fL RDW Coeff of Curtis 14.0 (11.5-14.5) % Plt Count 245 (130-400) K/uL MPV 9.7 (9.4-12.4) fL Immature Gran % (Auto) 0.6 % Neut % (Auto) 63.3 % Lymph % (Auto) 23.9 % Hale % (Auto) 11.5 % Eos % (Auto) 0.5 % Baso % (Auto) 0.2 % Neut # (Auto) 6.58 H (1.4-6.5) K/uL Lymph # (Auto) 2.49 (1.2-3.4) K/uL Hale # (Auto) 1.20 H (0.24-0.82) K/uL Eos # (Auto) 0.05 (0-0.50) K/uL Baso # (Auto) 0.02 (0-0.2) K/uL Immature Gran # (Auto) 0.06 H (0.00-0.02) K/uL PT (9.0-12.0) Seconds INR (0.9-1.1) APTT (21.0-31.0) Seconds PTT Ratio Sodium (136-145) mmol/L Potassium (3.5-5.1) mmol/L Chloride (98-107) mmol/L Carbon Dioxide (21-32) mmol/L Anion Gap (3-11) BUN (6-23) mg/dl Creatinine (0.6-1.4) mg/dl Est Cr Clr Drug Dosing ml/min Est GFR ( Amer) ml/min Est GFR (Non-Af Amer) ml/min BUN/Creatinine Ratio (10-20) Glucose (70-99(Fasting)) mg/dl Lactate (0.4-2.0) mmol/L Calcium (8.5-10.1) mg/dl Magnesium (1.7-2.4) mg/dl Total Bilirubin (0.2-1.0) mg/dl AST (13-39) U/L ALT (7-52) U/L Alkaline Phosphatase (34-104) U/L Total Creatine Kinase (30-223) U/L Troponin I High Sens (0-20) pg/ml Total Protein (6.0-8.3) gm/dl Albumin (3.4-5.0) gm/dl Globulin (2.5-4.0) gm/dl Albumin/Globulin Ratio (0.9-2) Procalcitonin 0.08 (0-0.5) ng/ml Urine Color Urine Appearance (Clear) Urine pH (4.5-7.5) Ur Specific [place] (1.000-1.030) Urine Protein (Negative) Urine Glucose (UA) (Negative) Urine Ketones (Negative) Urine Blood (Negative) Urine Nitrite (Negative) Urine Bilirubin (Negative) Urine Urobilinogen (Negative) Ur Leukocyte Esterase (Negative) Urine WBC (Auto) (0-5) /hpf Urine RBC (Auto) (0-4) /hpf U Hyaline Cast (Auto) (0-5) /lpf U Epithel Cells (Auto) (0-5) /lpf Urine Bacteria (Auto) (Negative) Urine Yeast SARS-CoV-2 (PCR) POSITIVE A* (Negative) Influenza Type A (PCR) Negative (Neg) Influenza Type B (PCR) Negative (Neg) RSV (RT-PCR) Negative (Neg) 02/05/22 02/05/22 02/05/22 Range/Units 14:20 14:20 14:20 WBC (4.8-10.8) K/ul RBC (4.63-6.08) M/uL Hgb (14.0-18.0) g/dl Hct (40.1-51.0) % MCV (80.0-100.0) fL MCH (25.0-34.0) pg MCHC (32.0-36.0) g/dL RDW Std Deviation (36.4-46.3) fL RDW Coeff of Curtis (11.5-14.5) % Plt Count (130-400) K/uL MPV (9.4-12.4) fL Immature Gran % (Auto) % Neut % (Auto) % Lymph % (Auto) % Hale % (Auto) % Eos % (Auto) % Baso % (Auto) % Neut # (Auto) (1.4-6.5) K/uL Lymph # (Auto) (1.2-3.4) K/uL Hale # (Auto) (0.24-0.82) K/uL Eos # (Auto) (0-0.50) K/uL Baso # (Auto) (0-0.2) K/uL Immature Gran # (Auto) (0.00-0.02) K/uL PT 13.1 H (9.0-12.0) Seconds INR 1.2 H (0.9-1.1) APTT 32.1 H (21.0-31.0) Seconds PTT Ratio 1.2 Sodium 136 (136-145) mmol/L Potassium 3.1 L (3.5-5.1) mmol/L Chloride 104 (98-107) mmol/L Carbon Dioxide 26 (21-32) mmol/L Anion Gap 6 (3-11) BUN 22 (6-23) mg/dl Creatinine 1.56 H (0.6-1.4) mg/dl Est Cr Clr Drug Dosing 37.0 ml/min Est GFR ( Amer) 46.9 ml/min Est GFR (Non-Af Amer) 40.5 ml/min BUN/Creatinine Ratio 14.1 (10-20) Glucose 138 H (70-99(Fasting)) mg/dl Lactate 1.8 (0.4-2.0) mmol/L Calcium 7.3 L (8.5-10.1) mg/dl Magnesium 2.0 (1.7-2.4) mg/dl Total Bilirubin 0.4 (0.2-1.0) mg/dl AST 15 (13-39) U/L ALT 8 (7-52) U/L Alkaline Phosphatase 108 H (34-104) U/L Total Creatine Kinase 21 L (30-223) U/L Troponin I High Sens 24.9 H (0-20) pg/ml Total Protein 5.1 L (6.0-8.3) gm/dl Albumin 2.2 L (3.4-5.0) gm/dl Globulin 2.9 (2.5-4.0) gm/dl Albumin/Globulin Ratio 0.8 L (0.9-2) Procalcitonin (0-0.5) ng/ml Urine Color Urine Appearance (Clear) Urine pH (4.5-7.5) Ur Specific [place] (1.000-1.030) Urine Protein (Negative) Urine Glucose (UA) (Negative) Urine Ketones (Negative) Urine Blood (Negative) Urine Nitrite (Negative) Urine Bilirubin (Negative) Urine Urobilinogen (Negative) Ur Leukocyte Esterase (Negative) Urine WBC (Auto) (0-5) /hpf Urine RBC (Auto) (0-4) /hpf U Hyaline Cast (Auto) (0-5) /lpf U Epithel Cells (Auto) (0-5) /lpf Urine Bacteria (Auto) (Negative) Urine Yeast SARS-CoV-2 (PCR) (Negative) Influenza Type A (PCR) (Neg) Influenza Type B (PCR) (Neg) RSV (RT-PCR) (Neg) 02/05/22 Range/Units 16:30 WBC (4.8-10.8) K/ul RBC (4.63-6.08) M/uL Hgb (14.0-18.0) g/dl Hct (40.1-51.0) % MCV (80.0-100.0) fL MCH (25.0-34.0) pg MCHC (32.0-36.0) g/dL RDW Std Deviation (36.4-46.3) fL RDW Coeff of Curtis (11.5-14.5) % Plt Count (130-400) K/uL MPV (9.4-12.4) fL Immature Gran % (Auto) % Neut % (Auto) % Lymph % (Auto) % Hale % (Auto) % Eos % (Auto) % Baso % (Auto) % Neut # (Auto) (1.4-6.5) K/uL Lymph # (Auto) (1.2-3.4) K/uL Hale # (Auto) (0.24-0.82) K/uL Eos # (Auto) (0-0.50) K/uL Baso # (Auto) (0-0.2) K/uL Immature Gran # (Auto) (0.00-0.02) K/uL PT (9.0-12.0) Seconds INR (0.9-1.1) APTT (21.0-31.0) Seconds PTT Ratio Sodium (136-145) mmol/L Potassium (3.5-5.1) mmol/L Chloride (98-107) mmol/L Carbon Dioxide (21-32) mmol/L Anion Gap (3-11) BUN (6-23) mg/dl Creatinine (0.6-1.4) mg/dl Est Cr Clr Drug Dosing ml/min Est GFR ( Amer) ml/min Est GFR (Non-Af Amer) ml/min BUN/Creatinine Ratio (10-20) Glucose (70-99(Fasting)) mg/dl Lactate (0.4-2.0) mmol/L Calcium (8.5-10.1) mg/dl Magnesium (1.7-2.4) mg/dl Total Bilirubin (0.2-1.0) mg/dl AST (13-39) U/L ALT (7-52) U/L Alkaline Phosphatase (34-104) U/L Total Creatine Kinase (30-223) U/L Troponin I High Sens (0-20) pg/ml Total Protein (6.0-8.3) gm/dl Albumin (3.4-5.0) gm/dl Globulin (2.5-4.0) gm/dl Albumin/Globulin Ratio (0.9-2) Procalcitonin (0-0.5) ng/ml Urine Color [place] Urine Appearance Turbid A (Clear) Urine pH 5.5 (4.5-7.5) Ur Specific [place] 1.012 (1.000-1.030) Urine Protein 3+ H (Negative) Urine Glucose (UA) Negative (Negative) Urine Ketones Negative (Negative) Urine Blood 3+ H (Negative) Urine Nitrite Positive A (Negative) Urine Bilirubin Negative (Negative) Urine Urobilinogen Negative (Negative) Ur Leukocyte Esterase 3+ H (Negative) Urine WBC (Auto) >30 H (0-5) /hpf Urine RBC (Auto) >30 H (0-4) /hpf U Hyaline Cast (Auto) 1-5 (0-5) /lpf U Epithel Cells (Auto) >30 H (0-5) /lpf Urine Bacteria (Auto) 4+ H (Negative) Urine Yeast Not Reportable SARS-CoV-2 (PCR) (Negative) Influenza Type A (PCR) (Neg) Influenza Type B (PCR) (Neg) RSV (RT-PCR) (Neg) Imaging Data Radiologist's Impression: Chest X-Ray 02/05/22 13:58 XR chest 1V portable HISTORY: 82 years-old Male bilateral upper extremity edema acute shortness breath COMPARISON: Chest CT 11/12/2021 TECHNIQUE: Portable AP view of the chest FINDINGS: Cardiac silhouette is enlarged. Atherosclerosis of the aorta. Left subclavian pacer. Small pleural effusions. No pneumothorax. Peripheral prominent interstitial coarsening is again noted within all lung zones bilaterally. Degenerative changes of the shoulders and spine. Right-sided ureteral stent. Surgical clips of the abdominal right upper quadrant. IMPRESSION: 1. Cardiomegaly without overt pulmonary edema. 2. Peripheral predominant interstitial coarsening appears similar to the comparison study which may represent a chronic infectious or inflammatory pneumonitis versus postinflammatory scarring. 3. Small pleural effusions. ACT 112: Negative or not required by law. The above report was generated using voice recognition software. It may contain grammatical, syntax or spelling errors. Electronically signed by: Avelino Joshi M.D. 02/05/2022 2:14 PM MDM Narrative Patient was seen and evaluated as above in room D03. Review was performed of nursing notes and vital signs. I did review pertinent previous visits and patient history. After obtaining a thorough history and physical examination the above work up was performed. Patient presents to us today via EMS for evaluation of bilateral extremity edema and also concern for possible UTI. Patient has a very complex past medical history. Most recently it appears that he was admitted in the setting of COVID-19, sepsis, UTI and underwent urologic procedure in late October. On arrival the patient clinically is well- appearing but appears to be tired. There is a very dark hue to the patient's urine in the collection bag. Options of care were discussed with the patient. I obtain consent for the patient and also called his daughter and spoke to her at 2:09 PM as well as his at the same time. They note that in addition to the bilateral upper extremity edema over the past few months they believe he may be experiencing a UTI noting new onset foul-smelling urine. IV access was established. Labs were drawn. Patient denied any pain on assessment. Labs reveal no leukocytosis. Decreased hemoglobin compared to previous noted at 8.5. INR 1.2. Potassium 3.1. Creatinine 1.56. Glucose 138. Calcium 7.3. There is a normal lactate as well as procalcitonin. Troponin with very mild elevation but similar to previous. No chest pain. Doubt ACS. Urinalysis reveals 3+ blood, positive nitrites, 3+ leukocytes, greater than 30 white blood cells, greater than 30 red blood cells, greater than 30 epithelial cells and 4+ bacteria. COVID testing again results positive but will note 3 months ago it was also positive. Chest x-ray was obtained and reveals cardiomegaly without overt pulmonary edema. There is note of peripheral predominant interstitial coarsening which appears similar to previous. He does not have any infectious symptoms in regard to pulmonary etiology. No cough. Lungs are clear to auscultation. At this time in the setting of UTI with his urologic history I did find it reasonable to discuss this with the on-call urologist, Dr. Drew. At this time we are in agreement with medical admission with IV antibiotics. In regard to the bilateral upper extremity edema this is felt to be more of a chronic presentation and this is not felt to represent acute DVT or infectious etiology. At this time I found it reasonable to discuss patient's cultures with the ED pharmacist. These were reviewed. Decision was made to initiate cefepime and vancomycin. It is felt that the benefit outweighs risk. The case was discussed with the hospitalist service. Please refer to further documentation regarding h is stay. I did update the family at 5:46 PM. I spoke with the patient's and daughter again. I updated them on the plan. They are happy with plan of care. They did note that the patient does follow with Dr. Pimentel of infectious disease in [place]. Case was discussed with the attending physician. GCS: 15 In the evaluation and treatment of this patient the following differential diagnoses were entertained: UTI, pyelonephritis, sepsis, acute blood loss anemia, encephalopathy, CVA, TIA, DVT, among others Impression & Plan UTI (urinary tract infection), Elevated troponin, Hematuria, Hypokalemia, Ureteral stent present, Edema of both upper extremities Discharge Plan Visit Data Chief Complaint: Edema To Extremity Stated Complaint: BILAT. ARM EDEMA ED Provider: Ronald Carver ED Midlevel Provider: Gabriel Mcdowell Discharge Problem: UTI (urinary tract infection), Elevated troponin, Hematuria, Hypokalemia, Ureteral stent present, Edema of both upper extremities Patient Disposition: Admitted As Inpatient Condition: Good Discharge Instructions Interventions: ED Discharge Assessment Last Done: 02/05/22 20:54
--- NOTE | 2022-02-05 14:15 | XRay Report ---
XR chest 1V portable HISTORY: 82 years-old Male bilateral upper extremity edema acute shortness breath COMPARISON: Chest CT 11/12/2021 TECHNIQUE: Portable AP view of the chest FINDINGS: Cardiac silhouette is enlarged. Atherosclerosis of the aorta. Left subclavian pacer. Small pleural ef fusions. No pneumothorax. Peripheral prominent interstitial coarsening is again noted within all lung zones bilaterally. Degenerative changes of the shoulders and spine. Right-sided ureteral stent. Surg ical clips of the abdominal right upper quadrant. IMPRESSION: 1. Cardiomegaly without overt pulmonary edema. 2. Peripheral predominant interstitial coarsening appears similar to the comparison study which may r epresent a chronic infectious or inflammatory pneumonitis versus postinflammatory scarring. 3. Small pleural effusions. ACT 112: Negative or not required by law. The above report was generated using voice recognition software. It may contain grammatical, syntax o r spelling errors. Electronically signed by: Avelino Joshi M.D. 02/05/2022 2:14 PM
[2022-02-05 14:38] LABS: Basophils # (auto) 0.02 K/uL (0-0.2); Basophils % (auto) 0.2 %; Eosinophils # (auto) 0.05 K/uL (0-0.50); Eosinophils % (auto) 0.5 %; Hematocrit (blood only) 26.6 % (40.1-51.0); Hemoglobin 8.5 g/dl (14.0-18.0); Immature Granulocytes # (auto) 0.06 K/uL (0.00-0.02); Immature Granulocytes % (auto) 0.6 %; Lymphocytes # (auto) 2.49 K/uL (1.2-3.4); Lymphocytes % (auto) 23.9 %; Mean Corpuscular Hemoglobin 31.4 pg (25.0-34.0); Mean Corpuscular Volume 98.2 fL (80.0-100.0); Mean Platelet Volume 9.7 fL (9.4-12.4); Monocytes % (auto) 11.5 %; Neutrophils # (auto) 6.58 K/uL (1.4-6.5); Neutrophils % (auto) 63.3 %; Platelet Count 245 K/uL (130-400); RDW Standard Deviation 49.8 fL (36.4-46.3); Red Blood Count 2.71 M/uL (4.63-6.08)
[2022-02-05 14:50] LABS: INR 1.2 (0.9-1.1); Partial Thromboplastin Ratio 1.2; Partial Thromboplastin Time 32.1 Seconds (21.0-31.0); Prothrombin Time 13.1 Seconds (9.0-12.0)
[2022-02-05 15:09] LABS: Albumin Globulin Ratio 0.8 (0.9-2); Albumin Level 2.2 gm/dl (3.4-5.0); BUN Creatinine Ratio 14.1 (10-20); Bilirubin,Total 0.4 mg/dl (0.2-1.0); Calcium 7.3 mg/dl (8.5-10.1); Est GFR (African American) 46.9 ml/min; Est GFR (Non-African American) 40.5 ml/min; Globulin 2.9 gm/dl (2.5-4.0); Potassium 3.1 mmol/L (3.5-5.1); Total Protein 5.1 gm/dl (6.0-8.3)
[2022-02-05 15:25] LABS: Troponin I High Sensitivity 24.9 pg/ml (0-20)
[2022-02-05 15:28] LABS: Influenza A virus by PCR Negative (Neg); Influenza B virus by PCR Negative (Neg); RSV by PCR Negative (Neg)
[2022-02-05 15:45] LABS: SARS CoV2 RNA(COVID-19) Ceph POSITIVE (Negative)
[2022-02-05 16:47] LABS: Appearance Urine Turbid (Clear); Bacteria Urine Automated 4+ (Negative); Bilirubin Urine Negative (Negative); Blood Urine 3+ (Negative); Color Urine Orange; Epithelial Cell Urine Auto >30 /lpf (0-5); Glucose Urine UA Negative (Negative); Ketones Urine Negative (Negative); Leukocyte Esterase Urine 3+ (Negative); Nitrite Urine Positive (Negative); Protein Urine 3+ (Negative); RBC Urine Automated >30 /hpf (0-4); Specific Gravity Urine 1.012 (1.000-1.030); Urobilinogen Urine Negative (Negative); WBC Urine Automated >30 /hpf (0-5); pH Urine 5.5 (4.5-7.5)
[2022-02-05] MEDS ORDERED: VANCOMYCIN HCL 1,750 MG in SODIUM CHLORIDE 0.9% 500 ML IV ONE (17:24)
[2022-02-05] MEDS ORDERED: CEFEPIME 2,000 MG/20 ML VIAL IV STA (17:24)
[2022-02-05] MEDS ORDERED: VANCOMYCIN CONSULT ACTIVE PRN (17:24)
--- NOTE | 2022-02-05 17:41 | History & Physical Report ---
Date of Service February 05, 2022 Assessment & Plan (1) UTI (urinary tract infection): Plan: -Admit to med tele -Patient is currently afebrile, hemodynamically stable, and stable on RA -Patient has a history of recurrent UTI's associated with his suprapubic catheter -Review of previous urine cultures shows pseudomonas, e coli, grisel, and coag negative staph -Was given one does of Vancomycin and Cefepime in the ED, will continue with both for now, follow urine and blood cultures -Unfortunately his myles was not replaced prior to obtaining urine samples, will have his nurse replace his cath now -No signs of systemic infection at this time as his WBC is WNL, negative lactate, hemodynamically stable, and afebrile -Will consult PT/OT for his continued weakness and deconditioning -AM CBC, CMP, Mag, PT/INR (2) Elevated troponin: Plan: -Patient's initial troponin elevated at 24.9, patient denies chest pain -ECG is showing some T-wave inversions in the lateral leads but is without acute ST segment changes, likely due to demand -Will repeat another troponin now and continue to monitor on tele (3) Hematuria: Plan: -Noted on examination of the myles bag and on UA -Patient's Hgb is 8.5 today, down from 10 on 12/20/21 -No other signs of bleeding at this time and patient has been hemodynamically stable -Will hold his HS dose of eliquis tonight, continue to monitor for signs of bleeding and monitor for ongoing hematuria once myles is exchanged -If no major bleed and hgb is stable in the am could likely restart his Eliquis -Monitor am CBC (4) COVID-19: Plan: -Positive on screen today in the ED -Was noted to be positive on his last admission as well -Currently stable on RA and without significant findings on his CXR -Symptomatic treatment for now with pulm hygiene, scheduled DuoNebs, prn robitussin, and prn O2 -Will place in covid isolation for now (5) Ureteral stent present: Plan: -Patient with hx of BL hydronephrosis with BL ureteral stent placement with Dr. Medrano on his last admission -Likely due for replacement in the near future -Will obtain CT of the abd/pelvis WO con to monitor stent placement, consult Urology if any concerning findings or need for stent placement (6) Hypokalemia: Plan: -Noted to be 3.1 today, mag is 2.0 -Likely due to poor oral intake, patient is not currently on diuretic therapy -Gave 40 meq of PO KCL on admission, will wait to give more to avoid hyperkalemia with his CKD -Monitor on tele, monitor am potassium and Mag (7) Chronic suprapubic catheter: Plan: -See UTI (8) Anemia: Plan: -MCV WNL -See hematuria -Continue ferrous sulfate (9) Chronic diastolic heart failure: Plan: -LVEF of 45-50% with grade I diastolic dysfunction -Patient examines Euvolemic on exam -Will hold IV fluids at this time to avoid volume overload -Not currently on diuretic therapy -Continue carvedilol and Imdur (10) Hypothyroidism: Plan: -Continue levothyroxine (11) Dyslipidemia: Plan: -Continue statin (12) Dementia: Plan: -Only oriented to self -Continue Namenda and aricept (13) CAD (coronary artery disease): Plan: -Not currently on aspirin, continue statin therapy (14) Paroxysmal atrial fibrillation: Plan: -Currently rate controlled -Continue Carvedilol Plan The patient was discussed with Dr. Bloom at the time of the admission History of Present Illness Chief Complaint: Upper extremity edema Primary Care Provider: DO Alfredo Soto Momin is an 82 year old male with a PMH significant for dementia, COPD, BL ureteral stent placement by Dr. Medrano on 11/05/21, Aortic stenosis, chronic suprapubic catheter with history of multiple Drug resistant UTI's, HFrEF (LVEF of 45-50%. Grade I diastolic dysfunction, paroxysmal atrial fibrillation on Eliquis, severe aortic stenosis as of 09/30/21), hypothyroidism, chronic pain, dyslipidemia, nocturnal hypoxemia who presented to the [facility] ED on 02/05/22 via EMS from home due to concerns for BL upper extremity swelling and possible UTI. In the ED the patient was found to be afebrile, hemodynamically stable, and stable on RA. Labs were remarkable for a WBC of 10.4, hgb of 8.5 (down from 10.0 on 12/20/21), stable platelets at 245, INR of 1.2, stable Cr of 1.56 (baseline per nephrology is 1.7-2.0), potassium of 3.1, mag of 2.0, lactate of 1.8, initial high sensitivity troponin of 24.9, corrected calcium of 8.7, alk phos of 108 otherwise stable liver function, procal of 0.08, UA showing nitrite positivity, 3+ leukocyte esterase, > 30 WBCs, and 4+ bacterial, covid 19 positive and influenz/RSV negative. Chest xray was read as "1. Cardiomegaly without overt pulmonary edema. 2. Peripheral predominant interstitial coarsening appears similar to the comparison study which may represent a chronic infectious or inflammatory pneumonitis versus postinflammatory scarring. 3. Small pleural effusions.". The ED staff spoke with Urology due to the patient's complex urologic history, Urology recommended admission for IV antibiotics, he was started on Cefepime and Vancomycin prio to admission. 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 The patient was initially admitted to the ICU as he required pressor support and Bipap. His afib RVR was thought to be due to his severe illness, his home carvedilol was switched to metoprolol for better rate control and BP support. During his admission he underwent cystoscopy with BL r etrograde pyelogram with ureteral stent placement, right aspiration and exchange of suprapubic cath with Dr. Medrano. His urine cultures grew coag negative staph resistant to bactrim and oxacillin, he had also grown previous urine cultures with pseudomonas, e.coli, and grisel. During his admission he was treated with Cefepime, flagyl, and fluconazole. For his hematochezia GI was consulted and recommended holding his Eliquis in case of ischemic colitis, his Hgb remained stable on the day of discharge and his Eliquis was restarted prior to discharge. His acute hypoxic respiratory failure resolved with adequate treatment of his sepsis, his Covid 19 status was questionable for possible recent infection a month prior to his admission and was not thought to be the cause of his respiratory failure. The patient was eventually discharge to [facility] on 11/20 due to significant deconditioning from his severe illness and long hospitalization. At the time of the exam the patient was sleeping comfortably in bed, he woke as I entered the room and was in no acute distress. History was difficult to obtain due to the patient's history of dementia. When asked why he was brought to the hospital he stated "I don't know". When asked if he was in any pain he stated "I hurt all over", he was unable to point to any specific area of pain. When asked, he specifically denied chest pain and abdominal pain. He told me that his lungs are "bad" and he is "an old man". He was unable to provide anymore information. Please refer to Dr. Bloom's attestation for any changes to the treatment plan Allergies Allergy/AdvReac Type Severity Reaction Status Date / Time captopril Allergy Severe Anaphylaxis Verified 02/05/22 17:27 Iodinated Contrast Media Allergy Severe Anaphylaxis Verified 02/05/22 17:27 morphine Allergy Severe Anaphylaxis Verified 02/05/22 21:27 oxaprozin Allergy Severe Anaphylaxis Verified 02/05/22 17:27 torsemide Allergy Severe Anaphylaxis Verified 02/05/22 17:27 hydrocodone Allergy Mild Rash Verified 02/05/22 17:27 Home Medications Medication Instructions Recorded Confirmed Type folic acid 1 mg tablet 1 mg PO QAM #90 tabs 10/04/19 12/20/21 Rx albuterol sulfate 90 mcg/actuation 2 puff inhalation Q6H PRN 07/09/20 02/05/22 Rx aerosol inhaler (Ventolin HFA) cough/wheeze/shortness of breath #1 inhaler cyanocobalamin (vitamin B-12) 1,000 mcg PO QAM 07/16/20 02/05/22 History 1,000 mcg tablet ferrous sulfate 325 mg (65 mg 325 mg PO QAM 07/16/20 12/20/21 History iron) tablet,delayed release polyethylene glycol 3350 17 gram 17 g PO BID PRN Constipation 07/16/20 02/05/22 History oral powder packet (Miralax) ascorbic acid (vitamin C) 500 mg 500 mg PO QAM 10/22/20 02/05/22 History tablet (Vitamin C) docusate sodium 100 mg capsule 100 mg PO BID PRN Constipation 10/22/20 02/05/22 History (Stool Softener) vitamin E 268 mg (400 unit) capsule 400 unit PO HS 10/22/20 02/05/22 History albuterol sulfate 2.5 mg/3 mL 2.5 mg (3 mL) inhalation QID PRN 04/16/21 02/05/22 Rx (0.083 %) solution for nebulization shortness of breath or wheezing #75 mL isosorbide mononitrate 30 mg 30 mg PO QAM #90 tabs 05/22/21 12/20/21 Rx tablet,extended release 24 hr nystatin 100,000 unit/gram topical 1 applic topical UD PRN Skin 05/22/21 02/05/22 History cream Irritation gabapentin 300 mg capsule 300 mg PO HS #90 caps 06/14/21 02/05/22 Rx ipratropium 0.5 mg-albuterol 3 mg 3 ml inhalation Q6H PRN wheezing 06/20/21 02/05/22 Rx (2.5 mg base)/3 mL nebulization #90 mL soln bupropion HCl 100 mg tablet,12 hr 100 mg PO BID #60 ea 08/09/21 02/05/22 Rx sustained-release apixaban 2.5 mg tablet (Eliquis) 2.5 mg PO BID #180 tabs 08/13/21 02/05/22 Rx tamsulosin 0.4 mg capsule 0.4 mg PO HS #30 caps 08/22/21 02/05/22 Rx tramadol 50 mg tablet 50 mg PO TID PRN Pain #30 tabs 09/03/21 02/05/22 Rx memantine 10 mg tablet (Namenda) 10 mg PO BID #180 tabs 09/09/21 02/05/22 Rx benzonatate 100 mg capsule 100 mg PO TID PRN cough #30 caps 09/23/21 02/05/22 Rx donepezil 10 mg tablet 10 mg PO HS #90 tabs 09/23/21 02/05/22 Rx calcium carbonate 500 mg-vitamin 1 tab PO DAILY 09/29/21 02/05/22 History D3 5 mcg (200 unit) tablet acetaminophen 325 mg tablet 650 mg PO Q6H PRN pain #30 tabs 12/18/21 02/05/22 Rx amlodipine 5 mg tablet (Norvasc) 5 mg PO QAM #90 tabs 12/30/21 02/05/22 Rx carvedilol 3.125 mg tablet 3.125 mg PO BIDWMEAL #180 tabs 01/06/22 02/05/22 Rx levothyroxine 112 mcg tablet 112 mcg PO HS #90 tabs 01/15/22 02/05/22 Rx (Synthroid) famotidine 40 mg tablet (Pepcid) 40 mg PO DAILYBB #90 tabs 01/20/22 02/05/22 Rx bethanechol chloride 50 mg tablet 50 mg PO QID #360 tabs 01/27/22 02/05/22 Rx simvastatin 80 mg tablet 80 mg PO HS 02/05/22 02/05/22 History Past Med/Surg History Medical History Anxiety and depression Aortic stenosis Severe per 09/30/21 ECHO UZMA 0.8cm CAD (coronary artery disease) Multiple cardiac stents (x4 total)- most recent 3+ years ago 1997- LCx- stent Most recent cath 2013 per cardio records "LAD okay, LCX OM 30, RCA ok, NL EF" Chronic diastolic heart failure Chronic pain 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 On donepezil and memantine, follows with neurology Dyslipidemia History of kidney stones History of SC (myocardial infarction) 1997- Follows with Dr. Hodeg/Kassidy History of recent hospitalization Admitted to [facility] 07/10/21-07/14/21- for staph bacteremia secondary to infected wound at suprapubic catheter site, UTI, acute metabolic encephalopathy; per 08/09/21 neuro note- bacteremia resolved with abxs, acute metabolic encephalopathy resolved, mental status back to baseline, UTI/GIOVANY resolved after abx. Hydronephrosis 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 SSS Initially implanted in 2008- generator change in 2017 Paroxysmal atrial fibrillation NO HX CARDIOVERSION On Eliquis Recurrent UTI Secondary hyperparathyroidism of renal origin Sleep apnea NO DEVICE USED UNABLE TO TOLERATE CPAP Stage 3b chronic kidney disease Suprapubic catheter In place secondary to neurogenic bladder Surgical History H/O total knee replacement R/L History of back surgery MULTIPLE History of cardiac cath Multiple cardiac stents (x4 total)- most recent 3+ years ago History of carpal tunnel release of both wrists History of cataract surgery B/L History of colonoscopy History of lithotripsy History of lumbar fusion History of prostate surgery Partial prostatectomy History of thyroidectomy secondary to goiter History of tooth extraction All teeth S/P cystoscopy with ureteral stent placement last 05/2021 @ [facility] Dr. William Medrano- Cystoscopy, Bilateral retrograde pyelogram, Bilateral ureteral stent exchange, Left aspiration and culture S/P TURP S/P ureteral stent placement Cysto, B/L RPG, right ureteroscopy, stent exchange: 07/06/18: LMA#5 at [facility] Cysto stent exchange (11/2018) Cystoscopy, stent exchange, suprapubic catheter (04/30/20): MAC at [facility] Family History Father Diabetes Mother Coronary heart disease Hypertension Brother Seizure Other No family history of adverse response to anesthesia Denies family history of Ovarian cancer Prostate cancer Myocardial infarction Breast cancer Colorectal cancer Social History Smoking Status: Former smoker Tobacco Type: Cigarettes Age Started Using Tobacco: 15; Age Quit Using Tobacco: 59; packs per day: 2; Second Hand Exposure: No; Hx Alcohol Use: No Hx Substance Use: No Preferred Language: Latvian Communication Ability: Unable Visual Impairment: No Limitations Hearing Ability: Hard of Hearing Auto Body Painter Required: No Beliefs That Will Affect Care: None marital status: Current Living Situation: Spouse and Family Current Living Situation Comment: spouse and daughters current occupational status: retired How many Children do You have: 3 Feels Safe at Home: Yes Childhood Exposure to Second-Hand Smoke: No caffeine: Yes (Coffee 3 per day.) during the past year weight has: remained stable Dental Care, Regularly: No Physical Activity Frequency: Does not Exercise Seatbelt Use: always Sunscreen Use: No Assistive Devices: Walker and Wheelchair Review of Systems Review of Systems: ROS unable to be obtained due to patient's mental status, please refer to HPI Physical Exam Physical Exam: Physical Exam: General: In no acute distress, stated age, malnourished, poor hygiene, chronically ill-appearing, non-toxic appearing HEENT: Normocephalic, atraumatic, no scleral icterus, pupils around round, pinpoint,symmetrical, and reactive to light, dry mucus membranes, trachea midline, no thyromegaly Chest/Pulm: No respiratory distress, symmetrical chest expansion, decreased breath sounds in the BL lower lung kang, expiratory wheezing noted in all other lung kang Cardiac: RRR, 4/6 systolic murmur noted Abdomen: Negative for ascites and bruising, normoactive bowel sounds, soft, non-tender to palpation throughout : Patient currently with suprapubic cath in place, pus noted at the insertion site, myles is currently draining bloody urine Musculoskeletal: Symmetrical and without signs of acute trauma, upper and lower extremities with symmetric ROM, muscle atrophy noted throughout Extremities: Radial, dorsalis pedis, and posterior tibial pulses are intact and symmetrical, pitting edema noted in the BL upper extremities, patient has symmetrical radial pulses and no signs of DVT such as unilateral swelling/erythema/pain Skin: Warm, dry, no rashes , lesions, or scars noted Neuro: Alert and oriented to person only, no focal defects, CN II-XII tested and intact, Psych: No acute distress, calm and cooperative during the exam Results & Data Results & Data ([facility]) Vital Signs (Past 12 Hours) Vital Signs Temp Pulse Pulse Resp BP Pulse Ox O2 Del Method 02/05/22 13:58 97 Room Air 02/05/22 13:48 71 02/05/22 13:48 36.7 C 71 20 106/60 95 Room Air Laboratory Results Abnormal lab results 02/05/22 02/05/22 02/05/22 Range/Units 14:10 14:20 14:20 RBC 2.71 L (4.63-6.08) M/uL Hgb 8.5 L (14.0-18.0) g/dl Hct 26.6 L (40.1-51.0) % RDW Std Deviation 49.8 H (36.4-46.3) fL Neut # (Auto) 6.58 H (1.4-6.5) K/uL [place] # (Auto) 1.20 H (0.24-0.82) K/uL Immature Gran # (Auto) 0.06 H (0.00-0.02) K/uL PT 13.1 H (9.0-12.0) Seconds INR 1.2 H (0.9-1.1) APTT 32.1 H (21.0-31.0) Seconds Potassium (3.5-5.1) mmol/L Creatinine (0.6-1.4) mg/dl Glucose (70-99(Fasting)) mg/dl Calcium (8.5-10.1) mg/dl Alkaline Phosphatase (34-104) U/L Total Creatine Kinase (30-223) U/L Troponin I High Sens (0-20) pg/ml Total Protein (6.0-8.3) gm/dl Albumin (3.4-5.0) gm/dl Albumin/Globulin Ratio (0.9-2) Urine Appearance (Clear) Urine Protein (Negative) Urine Blood (Negative) Urine Nitrite (Negative) Ur Leukocyte Esterase (Negative) Urine WBC (Auto) (0-5) /hpf Urine RBC (Auto) (0-4) /hpf U Epithel Cells (Auto) (0-5) /lpf Urine Bacteria (Auto) (Negative) SARS-CoV-2 (PCR) POSITIVE A* (Negative) 02/05/22 02/05/22 Range/Units 14:20 16:30 RBC (4.63-6.08) M/uL Hgb (14.0-18.0) g/dl Hct (40.1-51.0) % RDW Std Deviation (36.4-46.3) fL Neut # (Auto) (1.4-6.5) K/uL [place] # (Auto) (0.24-0.82) K/uL Immature Gran # (Auto) (0.00-0.02) K/uL PT (9.0-12.0) Seconds INR (0.9-1.1) APTT (21.0-31.0) Seconds Potassium 3.1 L (3.5-5.1) mmol/L Creatinine 1.56 H (0.6-1.4) mg/dl Glucose 138 H (70-99(Fasting)) mg/dl Calcium 7.3 L (8.5-10.1) mg/dl Alkaline Phosphatase 108 H (34-104) U/L Total Creatine Kinase 21 L (30-223) U/L Troponin I High Sens 24.9 H (0-20) pg/ml Total Protein 5.1 L (6.0-8.3) gm/dl Albumin 2.2 L (3.4-5.0) gm/dl Albumin/Globulin Ratio 0.8 L (0.9-2) Urine Appearance Turbid A (Clear) Urine Protein 3+ H (Negative) Urine Blood 3+ H (Negative) Urine Nitrite Positive A (Negative) Ur Leukocyte Esterase 3+ H (Negative) Urine WBC (Auto) >30 H (0-5) /hpf Urine RBC (Auto) >30 H (0-4) /hpf U Epithel Cells (Auto) >30 H (0-5) /lpf Urine Bacteria (Auto) 4+ H (Negative) SARS-CoV-2 (PCR) (Negative) Diagnostic Findings Chest X-Ray 02/05/22 13:58 XR chest 1V portable HISTORY: 82 years-old Male bilateral upper extremity edema acute shortness breath COMPARISON: Chest CT 11/12/2021 TECHNIQUE: Portable AP view of the chest FINDINGS: Cardiac silhouette is enlarged. Atherosclerosis of the aorta. Left subclavian pacer. Small pleural effusions. No pneumothorax. Peripheral prominent interstitial coarsening is again noted within all lung zones bilaterally. Degenerative changes of the shoulders and spine. Right-sided ureteral stent. Surgical clips of the abdominal right upper quadrant. IMPRESSION: 1. Cardiomegaly without overt pulmonary edema. 2. Peripheral predominant interstitial coarsening appears similar to the co mparison study which may represent a chronic infectious or inflammatory pneumonitis versus postinflammatory scarring. 3. Small pleural effusions. ACT 112: Negative or not required by law. The above report was generated using voice recognition software. It may contain grammatical, syntax or spelling errors. Electronically signed by: Avelino Joshi M.D. 02/05/2022 2:14 PM ECG Additional Comments: Poor data quality, interpretation may be adversely affected Normal sinus rhythm Left axis deviation Abnormal ECG When compared with ECG of 20-DEC-2021 14:38, Premature atrial complexes are no longer Present Nonspecific T wave abnormality, worse in Lateral leads Code Status & VTE Plan Code Status DNR/DNI VTE Prophylaxis Plan VTE Prophylaxis will be ordered: Yes Supervising Physician Co-Signing Physician Notes Patient was seen and examined independently I discussed the case with Ludwin JANSEN I reviewed pertinent past medical social family history and also the plan of care and agree with the plan of care. Patient initially sent in because of swelling of his upper arms which appears to be dependent edema as the patient is bedbound and is need to be moved with a Jose left he overlooks to have an encephalopathy likely metabolic from urinary tract infection present on admission associated with a suprapubic catheter indwelling bilateral ureteral stents. Reportedly the patient is due for stent change soon. The patient has hematuria and a markedly abnormal urinalysis elevated troponin(24.9) with nonacute changes but new changes on EKG hypokalemia will augment po ckd 3 with likely anemia of chronic disease which is slightly lower than usual for him Patient is pleasant cantankerous denies significant issues with exception of bilateral leg pain does note his bilateral arm swelling has no abdominal discomfort does have some discharge near where his suprapubic catheter exits his body his urine has hematuria within the tubing with small clots and dark urine in the bag Patient be brought in for complicated urinary tract infection at catheter associated but also associated ureteral stents he will be placed on cefepime and vancomycin to cover both a history of Pseudomonas and methicillin-resistant coag negative staph imaging of his abdomen and decision to consult urology are pending at time of admission Any exceptions will be noted below PG Care Time/CCT Total # of Minutes Spent Total Time Spent with Patient: Total time spent is greater than 50% in coordination of care (as documented) at patient's floor/unit and/or counseling patient: Coding [place] [address] Initial Inpt Care Lvl 3 Patient Type Established Medical Decision Making High Complexity Diagnoses UTI (urinary tract infection) N39.0 Elevated troponin R77.8 Hematuria R31.9 COVID-19 U07.1 Ureteral stent present Z96.0 Hypokalemia E87.6 Chronic suprapubic catheter Z93.59 Anemia D64.9 Chronic diastolic heart failure I50.32 Hypothyroidism E03.9 Hypothyroidism type: acquired Dyslipidemia E78.5 Dementia F03.90 CAD (coronary artery disease) I25.10 Paroxysmal atrial fibrillation I48.0 (1) Hypothyroidism Hypothyroidism type: acquired Qualified Code(s): E03.9 - Hypothyroidism, unspecified
[2022-02-05] MEDS ORDERED: POTASSIUM CHLORIDE CRTAB 20 MEQ TABCR PO STA (18:18)
--- NOTE | 2022-02-05 18:31 | Electrocardiogram Report ---
Test Reason : Blood Pressure : / mmHG Vent. Rate : 073 BPM Atrial Rate : 073 BPM P-R Int : 160 ms QRS Dur : 102 ms QT Int : 436 ms P-R-T Axes : 042 -37 067 degrees QTc Int : 480 ms Poor data quality, interpretation may be adversely affected Normal sinus rhythm Left axis deviation Nonspecific ST abnormality Abnormal ECG When compared with ECG of 20-DEC-2021 14:38, Premature atrial complexes are no longer Present Nonspecific T wave abnormality, worse in Lateral leads Confirmed by Itz David ([id number]) on 02/05/2022 6:30:51 PM Referred By: REFERRED SELF Confirmed By:Rohan David
[2022-02-05] MEDS ORDERED: SODIUM CHLORIDE 0.9% 250 ML IV PRN (19:14)
--- NOTE | 2022-02-05 20:06 | CT Scan Report ---
ABDOMEN AND PELVIS CT WITHOUT CONTRAST CT DOSE: 604.53 mGy.cm HISTORY: Follow up study in a patient with bilateral ureteral stents . Acute generalized abdominal pa in monitor BL ureteral stents TECHNIQUE: Multiaxial CT images of the abdomen and pelvis were performed without contrast. A dose lo wering technique was utilized adhering to the principles of ALARA. COMPARISON STUDY: 12/20/2021 FINDINGS: Limited exam secondary to positioning. Cardiomegaly with trace pericardial effusion and ext ensive coronary artery calcifications. Trace right and small left pleural effusions. Bronchial wall t hickening with similar appearing bibasilar densities. No pneumatosis or pneumoperitoneum. Calcified g ranulomata of the spleen. Moderately atrophic pancreas. Unremarkable adrenal glands. Cholecystectomy. Unremarkable liver. Atrophy with cortical thinning of the kidneys redemonstrated. Moderate right and severe left hydroure teronephrosis redemonstrated. Left-sided renal cysts are again noted. Moderate amount of air within t he right renal collecting system and ureter. Trace air within the left renal collecting system. Bilat eral ureteral stents are in place. No renal or ureteral calculi identified. Suprapubic urinary bladde r catheter is noted. Moderate amount of air within the urinary bladder lumen with wall thickening and perivesicular stranding. Small urinary bladder diverticula. Small fat filled umbilical hernias. Sugg ested penile implants are partially imaged. Atherosclerosis of the aorta. No lymphadenopathy identifi ed. No bowel obstruction. Urinary bladder wall thickening with perirectal stranding. There is moderate co lonic fecal retention. Noninflamed appendix. Mild generalized body wall edema. Degenerative changes o f the spine, pelvis and hips. No acute fracture identified. Ankylosing spondylosis. Severe left hip o steoarthritis with chronic remodeling. IMPRESSION: 1. Unchanged moderate right and severe left hydroureteronephrosis with stable positioning of the uret eral stents. 2. No renal or ureteral calculi identified. 3. Air within the renal collecting systems and ureters, right greater than left with air also present within the urinary bladder, likely secondary to the indwelling suprapubic catheter. Correlate with u rinalysis to exclude infection. 4. Constipation with possible mild stercoral proctitis. 5. No bowel obstruction or pneumoperitoneum. 6. Trace right and small left pleural effusions. ACT 112: Negative or not required by law. The above report was generated using voice recognition software. It may contain grammatical, syntax o r spelling errors. Electronically signed by: Avelino Joshi M.D. 02/05/2022 8:04 PM
[2022-02-05] MEDS ORDERED: traMADol HCL 50 MG TABLET PO PRN (20:55)
[2022-02-05] MEDS ORDERED: NYSTATIN CR 15 GM TUBE EXT PRN (20:55)
[2022-02-05] MEDS ORDERED: DOCUSATE SODIUM 100 MG CAP PO SCH (20:55)
[2022-02-05] MEDS ORDERED: ALBUT/IPRATROP 3MG/0.5MG NEB 3 ML VIAL INH PRN (20:55)
[2022-02-05] MEDS ORDERED: POLYETHYLENE (MIRALAX) 17 GM PACK PO PRN (20:55)
[2022-02-05] MEDS ORDERED: ALBUTEROL 0.083% NEBU SOLN 3 ML VIAL INH PRN (20:55)
[2022-02-05] MEDS ORDERED: SENNA 8.6 MG TAB PO STA (21:13)
[2022-02-05] MEDS ORDERED: DOCUSATE SODIUM 100 MG CAP PO ONE (21:15)
[2022-02-05] MEDS: metroNIDAZOLE 500 MG/100 ML BAG IV SCH (22:50)
[2022-02-05] MEDS: SIMVASTATIN 80 MG TAB PO SCH (22:53)
[2022-02-05] MEDS: BETHANECHOL CHL 25 MG TAB PO SCH (22:53)
[2022-02-05] MEDS: carvediloL 3.125 MG TAB PO SCH (22:54)
[2022-02-05] MEDS: MEMANTINE HCL 10 MG TAB PO SCH (22:55)
[2022-02-05] MEDS: buPROPion SR 100 MG TABCR PO SCH (22:55)
[2022-02-05] MEDS: DONEPEZIL HCL 10 MG TAB PO SCH (22:55)
[2022-02-05] MEDS: TAMSULOSIN HCL 0.4 MG CAP PO SCH (22:55)
[2022-02-05] MEDS: GABAPENTIN 300 MG CAP PO SCH (22:56)
[2022-02-05] MEDS: LEVOTHYROXINE SODIUM 112 MCG TABLET PO SCH (22:57)
[2022-02-06] MEDS: CEFEPIME 2,000 MG in SYRINGE 0 ML IV SCH ×2 (05:11→17:02)
[2022-02-06] MEDS: metroNIDAZOLE 500 MG/100 ML BAG IV SCH ×3 (05:12→21:08)
[2022-02-06] MEDS: VANCOMYCIN HCL 1,000 MG in SODIUM CHLORIDE 0.9% 250 ML IV SCH (06:23)
[2022-02-06] MEDS ORDERED: FAMOTIDINE 40 MG TABLET PO SCH (06:30)
[2022-02-06] MEDS: BETHANECHOL CHL 25 MG TAB PO SCH ×4 (08:28→21:09)
[2022-02-06] MEDS: ISOSORBIDE MONO EXTENDED REL 30 MG TABCR PO SCH (08:29)
[2022-02-06] MEDS: SENNA 8.6 MG TAB PO SCH (08:29)
[2022-02-06] MEDS: FERROUS SULFATE 325 MG TAB PO SCH (08:29)
[2022-02-06] MEDS: buPROPion SR 100 MG TABCR PO SCH ×2 (08:29→21:11)
[2022-02-06] MEDS: FOLIC ACID 1 MG TAB PO SCH (08:29)
[2022-02-06] MEDS: MEMANTINE HCL 10 MG TAB PO SCH ×2 (08:29→21:10)
[2022-02-06] MEDS: DOCUSATE SODIUM 100 MG CAP PO SCH ×2 (08:29→21:09)
--- NOTE | 2022-02-06 08:29 | Hospitalist Progress Note ---
Date of Service February 06, 2022 Assessment & Plan (1) UTI (urinary tract infection): Plan: -catheter associated uti, ureteral stents , air in rental collecting system on CT cannot tell if infection or from suprapubic cath urology consult as pt near due for stent exchange, tenatively planned for feb 10 2022, hold eliquis starting 02/09/22 -Review of previous urine cultures shows pseudomonas, e coli, grisel, and coag negative staph Vancomycin and Cefepime follow urine and blood cultures (2) Elevated troponin: Plan: -Patient's initial troponin elevated at 24.9, patient denies chest pain -ECG is showing some T-wave inversions in the lateral leads but is without acute ST segment changes, elevated troponin secondary to demand ischemia (3) Hematuria: Plan: -Noted on examination of the myles bag and on UA -Patient's Hgb is down but not in need of transfusion at this point -No other signs of bleeding at this time and patient has been hemodynamically stable -monitor while on eliquis (4) COVID-19: Plan: -Positive on screen today in the ED -Was noted to be positive on his last admission as well -Currently stable on RA and without significant findings on his CXR -Symptomatic treatment for now with DuoNebs, prn robitussin, and prn O2 -Will place in covid isolation (5) Ureteral stent present: Plan: -Patient with hx of BL hydronephrosis with BL ureteral stent placement with Dr. Medrano on his last admission planned stent exchange February 10 2022 (6) Hypokalemia: Plan: replete and monitor (7) Chronic suprapubic catheter: Plan: -See UTI (8) Anemia: Plan: -MCV WNL -See hematuria -Continue ferrous sulfate (9) Chronic diastolic heart failure: Plan: -LVEF of 45-50% with grade I diastolic dysfunction -continues to be euvolemic -Continue carvedilol and Imdur (10) Hypothyroidism: Plan: -Continue levothyroxine (11) Dyslipidemia: Plan: -Continue statin (12) Dementia: Plan: -Only oriented to self -Continue Namenda and aricept (13) CAD (coronary artery disease): Plan: -Not currently on aspirin, continue statin therapy (14) Paroxysmal atrial fibrillation: Plan: -Currently rate controlled -Continue Carvedilol Plan The patient was discussed with Dr. Bloom at the time of the admission Admission and Anticipated Discharge Date Admission Date: February 05, 2022 Subjective Patient says he does not feel much better and he feels "old". He looks clinically better to my eye. He has better color more alertness less fatigue and distress His arm edema has improved this appears to be dependent His urine is also clear to. I have interfaced with urology they plan on changing his stents next week we will allow him to eat and discontinue his n.p.o. status Review of Systems Review of Systems: Moderate distress and fatigue no headache, no visual changes no speech or swallowing issues no chest pain, pressure or palpitations no shortness of breath, cough or wheezes no abdominal pain, nausea or vomiting, diarrhea or constipation Lessening, hematuria or frequency no focal joint pain reduced arm swelling no back pain, CVA tenderness or radicular pain no bruising, bleeding or rashes no focal signs of weakness or numbness or altered sensation no complaints of anxiety or depression.. Physical Exam Physical Exam: The patient appeared chronically ill and fatigued Vital signs as documented. Head exam is normocephalic atraumatic Neck is without JVD, thyromegaly, or carotid bruits. Lungs are diminished with no focal loss Cardiac exam, Rhythm is regular.. No murmurs, rubs or gallops. Abdominal exam reveals normal bowel sounds, soft non tender, no masses Extremities are nonedematous and both pedal pulses are present Neurologic exam is alert and orientedx1 , no focal loss of strength or sensation Skin is with bruises Psychologically is with concerns for memory loss Results & Data Results & Data ([facility]) Vital Signs (Past 12 Hours) Vital Signs Pulse Pulse Resp BP BP Pulse Ox O2 Del Method 02/06/22 06:00 73 19 118/64 96 Room Air 02/06/22 05:00 73 16 106/65 96 Room Air 02/06/22 04:01 72 20 121/77 97 Room Air 02/06/22 03:00 71 15 116/84 98 Room Air 02/06/22 02:00 72 21 112/64 97 Room Air 02/06/22 01:01 74 17 101/53 L 98 Room Air 02/06/22 00:00 80 14 118/65 96 Room Air 02/05/22 23:00 81 14 110/72 97 Room Air 02/05/22 22:59 86 15 111/71 97 Room Air 02/05/22 22:30 83 14 96 02/05/22 22:59 84 14 111/71 97 Room Air 02/05/22 21:00 83 15 124/77 96 Room Air PG Care Time/CCT Total # of Minutes Spent Total Time Spent with Patient: Total time spent is greater than 50% in coordination of care (as documented) at patient's floor/unit and/or counseling patient: Coding Level of Care Code 39566 Subseq Hosp Care Lvl 3 Diagnoses UTI (urinary tract infection) N39.0 Elevated troponin R77.8 Hematuria R31.9 COVID-19 U07.1 Ureteral stent present Z96.0 Hypokalemia E87.6 Chronic suprapubic catheter Z93.59 Anemia D64.9 Chronic diastolic heart failure I50.32 Hypothyroidism E03.9 Hypothyroidism type: acquired Dyslipidemia E78.5 Dementia F03.90 CAD (coronary artery disease) I25.10 Paroxysmal atrial fibrillation I48.0 (1) Hypothyroidism Hypothyroidism type: acquired Qualified Code(s): E03.9 - Hypothyroidism, unspecified
[2022-02-06] MEDS: amLODIPine BESYLATE 5 MG TAB PO SCH (08:30)
[2022-02-06] MEDS: carvediloL 3.125 MG TAB PO SCH ×2 (08:30→17:03)
[2022-02-06] MEDS: FAMOTIDINE 20 MG TAB PO SCH (08:30)
[2022-02-06] MEDS: ASCORBIC ACID 500 MG TAB PO SCH (08:30)
[2022-02-06] MEDS: CYANOCOBALAMIN (B-12) 500 MCG TABLET PO SCH (08:30)
[2022-02-06 10:25] LABS: Hematocrit (blood only) 24.6 % (40.1-51.0); Hemoglobin 7.9 g/dl (14.0-18.0); Mean Corpuscular Hemoglobin 31.5 pg (25.0-34.0); Mean Corpuscular Hgb Conc 32.1 g/dL (32.0-36.0); Mean Platelet Volume 9.5 fL (9.4-12.4); Platelet Count 242 K/uL (130-400); RDW Standard Deviation 49.5 fL (36.4-46.3); Red Blood Count 2.51 M/uL (4.63-6.08)
[2022-02-06 10:39] LABS: INR 1.2 (0.9-1.1)
[2022-02-06 10:46] LABS: Albumin Globulin Ratio 0.7 (0.9-2); Albumin Level 2.1 gm/dl (3.4-5.0); BUN Creatinine Ratio 14.6 (10-20); Bilirubin,Total 0.3 mg/dl (0.2-1.0); Calcium 7.7 mg/dl (8.5-10.1); Creatinine Clr Calc Pharmacy 42.1 ml/min; Est GFR (African American) 54.9 ml/min; Est GFR (Non-African American) 47.4 ml/min; Globulin 2.9 gm/dl (2.5-4.0); Potassium 3.3 mmol/L (3.5-5.1)
--- NOTE | 2022-02-06 12:06 | Urology Consultation ---
Date of Consultation February 06, 2022 Assessment & Plan (1) Ureteral stent present: (2) UTI (urinary tract infection): (3) Chronic suprapubic catheter: 82-year-old male with multiple comorbidities admitted for upper extremity swelling and suspected urinary tract infection. Urology consulted for evaluation of bilateral stents. Last stent exchange was on 11/04/2021. He is afebrile and hemodynamically stable. Lab work reviewedcreatinine 1.37, WBC 8.6, hemoglobin 7.9. CT A/P reviewed and shows unchanged moderate right and severe left hydroureteronephrosis, ureteral stents in good position, air within the renal collecting systems, ureters and urinary bladder likely from suprapubic catheter. No renal or ureteral stones. Urine and blood cultures are pending. Continue antibiotics per hospital medicine and narrow per sensitivities when available. No acute intervention at this time. Plan of care reviewed with Dr. Medrano. He is becoming due for scheduled bilateral stent exchange. We will plan on stent exchange during admission when he is medically optimized. Currently COVID positive in precautions. Plan - Continue antibiotics, supportive care, bowel regimen and medical management per hospital medicine. We will tentatively plan to exchange bilateral ureteral stents on 02/10/2021 presuming he is medically stable. Hold Eliquis on 02/[address] Medrano - discussed with hospitalist. NPO at [place] prior to procedure. will follow. History of Present Illness Attending Physician: Ashvin Bloom MD History of Present Illness This is an 82 yo male with a past medical history of dementia, recurrent CAUTI, paroxysmal afib on Eliquis, CAD with [place], AICD, CKD, iron-deficiency anemia, hypothyroidism, anxiety and depression, and recent COVID-19 infection admitted with upper extremity edema and suspected complicated urinary tract infection. On arrival to ED, he was afebrile and hemodynamically stable. Lab work and imaging independently reviewed. Chemistry showed creatinine of 1.56, potassium 3.1. CBC showed WBC 10.4, hemoglobin 8.5. Urinalysis notable for turbid urine, 3+ protein, 3+ blood, positive nitrates, 3+ leukocytes, >30 WBC, >30 RBC, >30 epithelials, and 4+ bacteria. Urine and blood cultures obtained and pending. COVID testing positive. He was treated with IV cefepime and vancomycin in the emergency department. CT a/p showed unchanged moderate right and severe left hydroureteronephrosis with stable positioning of the ureteral stents. No renal or ureteral calculi identified. Air within the renal collecting systems and ureters, right greater than left with air also present within the urinary bladder, likely secondary to the indwelling suprapubic catheter. Constipation with possible mild stercoral proctitis. Urology consulted for b/l ureteral stents, hydro, air in system, suprapubic catheter. Patient is well-known to the urology service, follows with Dr. Medrano. Has a history of chronic bilateral ureteral stents and chronic suprapubic catheter. Last bilateral stent exchange was performed on 11/04/21. Chart review - Afebrile, lab work reviewed -creatinine 1.37, WBC 8.6, hemoglobin 7.9 today. Urine and blood cultures are pending. He is currently on cefepime, Flagyl, and vancomycin. Patient seen in ED today. On exam, he was awake and resting in bed in no acute distress. Oriented to person. On COVID precautions. Suprapubic catheter is intact, draining light pink urine with sediment noted in tubing. Patient denied abdominal, flank, suprapubic pain. Catheter insertion site with some discharge noted. No fevers or chills. No nausea or vomiting. Allergies Allergy/AdvReac Type Severity Reaction Status Date / Time captopril Allergy Severe Anaphylaxis Verified 02/05/22 17:27 Iodinated Contrast Media Allergy Severe Anaphylaxis Verified 02/05/22 17:27 morphine Allergy Severe Anaphylaxis Verified 02/05/22 21:27 oxaprozin Allergy Severe Anaphylaxis Verified 02/05/22 17:27 torsemide Allergy Severe Anaphylaxis Verified 02/05/22 17:27 hydrocodone Allergy Mild Rash Verified 02/05/22 17:27 Home Medications Medication Instructions Recorded Confirmed Type folic acid 1 mg tablet 1 mg PO QAM #90 tabs 10/04/19 12/20/21 Rx albuterol sulfate 90 mcg/actuation 2 puff inhalation Q6H PRN 07/09/20 02/05/22 Rx aerosol inhaler (Ventolin HFA) cough/wheeze/shortness of breath #1 inhaler cyanocobalamin (vitamin B-12) 1,000 mcg PO QAM 07/16/20 02/05/22 History 1,000 mcg tablet ferrous sulfate 325 mg (65 mg 325 mg PO QAM 07/16/20 12/20/21 History iron) tablet,delayed release polyethylene glycol 3350 17 gram 17 g PO BID PRN Constipation 07/16/20 02/05/22 History oral powder packet (Miralax) ascorbic acid (vitamin C) 500 mg 500 mg PO QAM 10/22/20 02/05/22 History tablet (Vitamin C) docusate sodium 100 mg capsule 100 mg PO BID PRN Constipation 10/22/20 02/05/22 History (Stool Softener) vitamin E 268 mg (400 unit) capsule 400 unit PO HS 10/22/20 02/05/22 History albuterol sulfate 2.5 mg/3 mL 2.5 mg (3 mL) inhalation QID PRN 04/16/21 02/05/22 Rx (0.083 %) solution for nebulization shortness of breath or wheezing #75 mL isosorbide mononitrate 30 mg 30 mg PO QAM #90 tabs 05/22/21 12/20/21 Rx tablet,extended release 24 hr nystatin 100,000 unit/gram topical 1 applic topical UD PRN Skin 05/22/21 02/05/22 History cream Irritation gabapentin 300 mg capsule 300 mg PO HS #90 caps 06/14/21 02/05/22 Rx ipratropium 0.5 mg-albuterol 3 mg 3 ml inhalation Q6H PRN wheezing 06/20/21 02/05/22 Rx (2.5 mg base)/3 mL nebulization #90 mL soln bupropion HCl 100 mg tablet,12 hr 100 mg PO BID #60 ea 08/09/21 02/05/22 Rx sustained-release apixaban 2.5 mg tablet (Eliquis) 2.5 mg PO BID #180 tabs 08/13/21 02/05/22 Rx tamsulosin 0.4 mg capsule 0.4 mg PO HS #30 caps 08/22/21 02/05/22 Rx tramadol 50 mg tablet 50 mg PO TID PRN Pain #30 tabs 09/03/21 02/05/22 Rx memantine 10 mg tablet (Namenda) 10 mg PO BID #180 tabs 09/09/21 02/05/22 Rx benzonatate 100 mg capsule 100 mg PO TID PRN cough #30 caps 09/23/21 02/05/22 Rx donepezil 10 mg tablet 10 mg PO HS #90 tabs 09/23/21 02/05/22 Rx calcium carbonate 500 mg-vitamin 1 tab PO DAILY 09/29/21 02/05/22 History D3 5 mcg (200 unit) tablet acetaminophen 325 mg tablet 650 mg PO Q6H PRN pain #30 tabs 12/18/21 02/05/22 Rx amlodipine 5 mg tablet (Norvasc) 5 mg PO QAM #90 tabs 12/30/21 02/05/22 Rx carvedilol 3.125 mg tablet 3.125 mg PO BIDWMEAL #180 tabs 01/06/22 02/05/22 Rx levothyroxine 112 mcg tablet 112 mcg PO HS #90 tabs 01/15/22 02/05/22 Rx (Synthroid) famotidine 40 mg tablet (Pepcid) 40 mg PO DAILYBB #90 tabs 01/20/22 02/05/22 Rx bethanechol chloride 50 mg tablet 50 mg PO QID #360 tabs 01/27/22 02/05/22 Rx simvastatin 80 mg tablet 80 mg PO HS 02/05/22 02/05/22 History Patient History Medical History Anxiety and depression Aortic stenosis Severe per 09/30/21 ECHO UZMA 0.8cm CAD (coronary artery disease) Multiple cardiac stents (x4 total)- most recent 3+ years ago 1997- LCx- stent Most recent cath 2013 per cardio records "LAD okay, LCX OM 30, RCA ok, NL EF" Chronic diastolic heart failure Chronic pain 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 On donepezil and memantine, follows with neurology Dyslipidemia History of kidney stones History of [place] (myocardial infarction) 1997- Follows with Dr. Hodge/Kassidy History of recent hospitalization Admitted to [facility] 07/10/21-07/14/21- for staph bacteremia secondary to infected wound at suprapubic catheter site, UTI, acute metabolic encephalopathy; per 08/09/21 neuro note- bacteremia resolved with abxs, acute metabolic encephalopathy resolved, mental status back to baseline, UTI/GIOVANY resolved after abx. Hydronephrosis 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 SSS Initially implanted in 2008- generator change in 2017 Paroxysmal atrial fibrillation NO HX CARDIOVERSION On Eliquis Recurrent UTI Secondary hyperparathyroidism of renal origin Sleep apnea NO DEVICE USED UNABLE TO TOLERATE CPAP Stage 3b chronic kidney disease Suprapubic catheter In place secondary to neurogenic bladder Surgical History H/O total knee replacement R/L History of back surgery MULTIPLE History of cardiac cath Multiple cardiac stents (x4 total)- most recent 3+ years ago History of carpal tunnel release of both wrists History of cataract surgery B/L History of colonoscopy History of lithotripsy History of lumbar fusion History of prostate surgery Partial prostatectomy History of thyroidectomy secondary to goiter History of tooth extraction All teeth S/P cystoscopy with ureteral stent placement last 05/2021 @ [facility] Dr. William Medrano- Cystoscopy, Bilateral retrograde pyelogram, Bilateral ureteral stent exchange, Left aspiration and culture S/P TURP S/P ureteral stent placement Cysto, B/L RPG, right ureteroscopy, stent exchange: 07/06/18: LMA#5 at [facility] Cysto stent exchange (11/2018) Cystoscopy, stent exchange, suprapubic catheter (04/30/20): MAC at [facility] Family History Father Diabetes Mother Coronary heart disease Hypertension Brother Seizure Other No family history of adverse response to anesthesia Denies family history of Ovarian cancer Prostate cancer Myocardial infarction Breast cancer Colorectal cancer Social History Smoking Status: Former smoker Tobacco Type: Cigarettes Age Started Using Tobacco: 15; Age Quit Using Tobacco: 59; packs per day: 2; Second Hand Exposure: No; Hx Alcohol Use: No Hx Substance Use: No Preferred Language: Romanian Communication Ability: Unable Visual Impairment: No Limitations Hearing Ability: Hard of Hearing 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 Required: No Beliefs That Will Affect Care: None marital status: Current Living Situation: Spouse and Family Current Living Situation Comment: spouse and daughters current occupational status: retired How many Children do You have: 3 Feels Safe at Home: Yes Childhood Exposure to Second-Hand Smoke: No caffeine: Yes (Coffee 3 per day.) during the past year weight has: remained stable Dental Care, Regularly: No Physical Activity Frequency: Does not Exercise Seatbelt Use: always Sunscreen Use: No Assistive Devices: Walker and Wheelchair Review of Systems Review of Systems: All systems reviewed & are unremarkable except as noted in HPI & below Respiratory: no dyspnea Cardiovascular: no chest pain Physical Exam Constitutional: chronically ill appearing, no acute distress Respiratory: normal respiratory effort; no respiratory distress and no labored breathing Cardiovascular: Extremities: + edema (bilateral upper extremities) Gastrointestinal (Abdomen): Percussion/Palpation: abdomen soft; abdomen nontender Musculoskeletal: Head/Neck/Chest: normocephalic and head atraumatic Neurologic: awake Psychiatric: Orientation: oriented to person Genitourinary: SP tube intact and draining pink urine with moderate yellow sediment/debris Results & Data ([facility]) Vital Signs (Past 12 Hours) Vital Signs Pulse Pulse Resp BP BP Pulse Ox Pulse Ox 02/06/22 11:43 96 02/06/22 08:36 75 16 100/63 96 02/06/22 06:00 73 19 118/64 96 02/06/22 05:00 73 16 106/65 96 02/06/22 04:01 72 20 121/77 97 02/06/22 03:00 71 15 116/84 98 02/06/22 02:00 72 21 112/64 97 02/06/22 01:01 74 17 101/53 L 98 O2 Del Method O2 Del Method 02/06/22 11:43 Room Air 02/06/22 08:36 Room Air 02/06/22 06:00 Room Air 02/06/22 05:00 Room Air 02/06/22 04:01 Room Air 02/06/22 03:00 Room Air 02/06/22 02:00 Room Air 02/06/22 01:01 Room Air PG Care Time/CCT Total # of Minutes Spent Total Time Spent with Patient: Total time spent is greater than 50% in coordination of care (as documented) at patient's floor/unit and/or counseling patient: Coding Level of Care Code 95266 Initial Inpt Care Lvl 2 Diagnoses Ureteral stent present Z96.0 UTI (urinary tract infection) N39.0 Chronic suprapubic catheter Z93.59
[2022-02-06] MEDS: ACETAMINOPHEN 325 MG TAB PO PRN (12:49)
--- NOTE | 2022-02-06 13:07 | Pharmacy Report ---
Pharmacy PK ABX Note - Date of Service February 06, 2022 - Assessment and Plan Assessment 82 year old M receiving Vancomycin, Ceftriaxone and Metronidazole for treatment of UTI. * PMHx significant for b/l ureteral stents and suprapubic catheter. Many UTIs in past. 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 * Afebrile. No leukocytosis. Procal normal. Lactate normal. Scr at baseline. Plan Vancomycin * Loading dose: 1750 mg IV x 1 * Maintenance dose: 1000 mg IV every 24 hours * Regimen is predicted to achieve target AUC/YAQUELIN of 400-600 mg/L.hr * No level will be order unless therapy extends beyond 48 hours. Pharmacy will continue to follow and will adjust dose/frequency as necessary. Thank you. Pharmacy has transitioned to AUC monitoring for vancomycin. AUC/YAQUELIN is the preferred PK/PD target and is associated with decreased risk of nephrotoxicity compared to traditional trough targets.
[2022-02-06] MEDS ORDERED: CEFEPIME 2,000 MG/20 ML VIAL ONE (16:58)
[2022-02-06] MEDS: CALCIUM 600MG + VIT D 400 IU TAB PO SCH (17:03)
[2022-02-06] MEDS: DONEPEZIL HCL 10 MG TAB PO SCH (21:10)
[2022-02-06] MEDS: LEVOTHYROXINE SODIUM 112 MCG TABLET PO SCH (21:10)
[2022-02-06] MEDS: GABAPENTIN 300 MG CAP PO SCH (21:10)
[2022-02-06] MEDS: TAMSULOSIN HCL 0.4 MG CAP PO SCH (21:11)
[2022-02-06] MEDS: SIMVASTATIN 80 MG TAB PO SCH (21:11)
[2022-02-06] MEDS ORDERED: Flu Vaccine-High Dose (Fluzone-HD) PF 65+ 0.7mL SYR IM ONE (21:45)
[2022-02-07] MEDS: CEFEPIME 2,000 MG in SYRINGE 0 ML IV SCH ×2 (05:07→17:18)
[2022-02-07] MEDS: metroNIDAZOLE 500 MG/100 ML BAG IV SCH ×3 (05:07→22:47)
[2022-02-07 06:00] LABS: Hematocrit (blood only) 29.2 % (40.1-51.0); Hemoglobin 9.6 g/dl (14.0-18.0); Mean Corpuscular Hemoglobin 31.4 pg (25.0-34.0); Mean Corpuscular Hgb Conc 32.9 g/dL (32.0-36.0); Mean Corpuscular Volume 95.4 fL (80.0-100.0); Mean Platelet Volume 9.8 fL (9.4-12.4); Platelet Count 264 K/uL (130-400); RDW Standard Deviation 49.1 fL (36.4-46.3); Red Blood Count 3.06 M/uL (4.63-6.08); White Blood Count 9.28 K/ul (4.8-10.8)
[2022-02-07 06:22] LABS: Albumin Globulin Ratio 0.7 (0.9-2); Albumin Level 2.3 gm/dl (3.4-5.0); BUN Creatinine Ratio 15.6 (10-20); Bilirubin,Total 0.3 mg/dl (0.2-1.0); Calcium 7.8 mg/dl (8.5-10.1); Creatinine Clr Calc Pharmacy 41.5 ml/min; Est GFR (African American) 55.9 ml/min; Est GFR (Non-African American) 48.2 ml/min; Globulin 3.1 gm/dl (2.5-4.0); Potassium 3.3 mmol/L (3.5-5.1); Total Protein 5.4 gm/dl (6.0-8.3)
[2022-02-07] MEDS: FAMOTIDINE 20 MG TAB PO SCH ×2 (06:24→08:24)
[2022-02-07] MEDS: DOCUSATE SODIUM 100 MG CAP PO SCH ×2 (08:23→22:48)
[2022-02-07] MEDS: carvediloL 3.125 MG TAB PO SCH ×2 (08:23→17:30)
[2022-02-07] MEDS: FERROUS SULFATE 325 MG TAB PO SCH (08:23)
[2022-02-07] MEDS: VANCOMYCIN HCL 1,000 MG in SODIUM CHLORIDE 0.9% 250 ML IV SCH (08:23)
[2022-02-07] MEDS: buPROPion SR 100 MG TABCR PO SCH ×2 (08:24→22:48)
[2022-02-07] MEDS: BETHANECHOL CHL 25 MG TAB PO SCH ×4 (08:24→22:48)
[2022-02-07] MEDS: ASCORBIC ACID 500 MG TAB PO SCH (08:24)
[2022-02-07] MEDS: CYANOCOBALAMIN (B-12) 500 MCG TABLET PO SCH (08:24)
[2022-02-07] MEDS: amLODIPine BESYLATE 5 MG TAB PO SCH (08:24)
[2022-02-07] MEDS: ISOSORBIDE MONO EXTENDED REL 30 MG TABCR PO SCH (08:24)
[2022-02-07] MEDS: SENNA 8.6 MG TAB PO SCH (08:24)
[2022-02-07] MEDS: FOLIC ACID 1 MG TAB PO SCH (08:24)
[2022-02-07] MEDS: MEMANTINE HCL 10 MG TAB PO SCH ×2 (08:25→22:48)
--- NOTE | 2022-02-07 10:47 | Hospitalist Progress Note ---
Date of Service February 07, 2022 Assessment & Plan (1) UTI (urinary tract infection): Plan: -catheter associated uti, ureteral stents , air in rental collecting system on CT cannot tell if infection or from suprapubic cath urology consult as pt near due for stent exchange, tenatively planned for feb 10 2022, hold eliquis starting 02/09/22 -Review of previous urine cultures shows pseudomonas, e coli, grisel, and coag negative staph Cultures have grown out Citrobacter farmeri - sensitive to cefepime. There is a second gram-negative organism which is pending -Continue cefepime and follow final urine culture result (2) Elevated troponin: Plan: -Patient's initial troponin elevated at 24.9 and then went down to 22, patient denies chest pain Has a history of underlying CAD with bare-metal stents to LCx in 1997 -ECG is showing some T-wave inversions in the lateral leads but is without acute ST segment changes, elevated troponin secondary to demand ischemia (3) Hematuria: Plan: -Noted on examination of the myles bag and on UA -Patient's Hgb is down but not in need of transfusion at this point -No other signs of bleeding at this time and patient has been hemodynamically stable -Eliquis held currently (4) Stercoral colitis: Plan: Noted on CT abdomen/pelvis on admission Has had large bowel movement since admission with bowel regimen Continue Flagyl and cefepime Monitor for constipation (5) COVID-19: Plan: -Positive on screen on admission -Currently stable on RA and without significant findings on his CXR -Symptomatic treatment for now with DuoNebs, prn robitussin, and prn O2 -Will place in covid isolation -No indication for Remdesivir as unclear when infection started -No indication for dexamethasone as he is not hypoxic (6) Ureteral stent present: Plan: -Patient with hx of BL hydronephrosis with BL ureteral stent placement with Dr. Medrano on his last admission planned stent exchange February 10 2022 (7) Hypokalemia: Plan: replete and monitor (8) Chronic suprapubic catheter: Plan: -See UTI Will need exchange of suprapubic catheter prior to discharge given UTI (9) Anemia: Plan: Hemoglobin low on admission at 7.9 but has increased somehow to 9.6, normocytic Some hematuria and blood loss -Continue ferrous sulfate Follow CBC in the morning -Check iron studies, B12, folate TSH recently normal (10) Chronic diastolic heart failure: Plan: -LVEF of 45-50% with grade I diastolic dysfunction -continues to be euvolemic -Continue carvedilol, amlodipine, and Imdur (11) Hypothyroidism: Plan: -Continue levothyroxine Recent TSH normal in 09/2021 (12) Dyslipidemia: Plan: -Continue statin (13) Dementia: Plan: -Only oriented to self -Continue Namenda and aricept (14) CAD (coronary artery disease): Plan: -Not currently on aspirin due to being on Eliquis With history of bare-metal stent to LCx in 1997 continue statin therapy, beta-christina, isosorbide Follows with [facility] (15) Paroxysmal atrial fibrillation: Plan: In sinus rhythm on admission Eliquis on hold for upcoming procedure -Continue Carvedilol (16) Aortic stenosis: Plan: Known to be severe on echocardiogram from 09/2021 with mild AI, mild to moderate MR, EF mildly reduced at 45-50% Unclear if has followed up with 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 twice daily Plan DVT prophylaxis-Eliquis on hold Disposition-continued stay Admission and Anticipated Discharge Date Admission Date: February 05, 2022 Supervising Physician Co-Signing Physician Notes PA Supervision Note: I did not personally see or examine the patient today, but I verified all delaney points of KAMI Kennedy's assessment and plan with the following exceptions/additions: Multiple additions made to note as above Subjective Patient was seen and evaluated bedside. Limited history secondary to baseline dementia. Patient offers no complaints otherwise per Review of Systems Review of Systems: Limited secondary to patient's mental status Physical Exam Constitutional: chronically ill appearing, no acute distress Respiratory: normal respiratory effort; no respiratory distress and no labored breathing Cardiovascular: Extremities: + edema (bilateral upper extremities) Gastrointestinal (Abdomen): Percussion/Palpation: abdomen soft; abdomen nontender Musculoskeletal: Head/Neck/Chest: normocephalic and head atraumatic Neurologic: awake Psychiatric: Orientation: oriented to person Genitourinary: SP tube intact and draining cloudy/purulent appearing with some pink tinge Results & Data Results & Data ([facility]) Vital Signs (Past 12 Hours) Vital Signs Pulse Resp BP BP Pulse Ox Pulse Ox O2 Del Method 02/07/22 09:00 84 14 98/57 L 96 Room Air 02/07/22 09:42 102/96 02/07/22 08:20 87 17 106/66 95 Room Air 02/07/22 07:00 89 20 96 Room Air 02/07/22 06:00 85 15 93 02/07/22 05:00 82 3 L 94 02/07/22 04:00 106 H 10 L 96 02/07/22 03:00 79 14 96 02/07/22 02:00 108 H 14 95 02/07/22 01:00 79 13 96 02/07/22 00:00 80 12 97 02/06/22 23:00 169/105 H 97 02/06/22 23:00 95 O2 Del Method 02/07/22 09:00 02/07/22 09:42 02/07/22 08:20 02/07/22 07:00 02/07/22 06:00 02/07/22 05:00 02/07/22 04:00 02/07/22 03:00 02/07/22 02:00 02/07/22 01:00 02/07/22 00:00 02/06/22 23:00 02/06/22 23:00 Room Air (1) Hypothyroidism Hypothyroidism type: acquired Qualified Code(s): E03.9 - Hypothyroidism, unspecified
--- NOTE | 2022-02-07 12:08 | Urology Progress Note ---
Date of Service February 07, 2022 Assessment & Plan (1) Ureteral stent present: (2) UTI (urinary tract infection): (3) Chronic suprapubic catheter: Plan 82-year-old male with multiple comorbidities admitted for upper extremity swelling and suspected urinary tract infection. He is afebrile and hemodynamically stable. Lab work reviewedcreatinine 1.35, WBC 9.28, hemoglobin 9.6. Preliminary urine culture growing Citrobacter farmeri and gram negative bacilli. Blood cultures are showing no growth x 24 hours. Currently on Cefepime and Flagyl. Continue antibiotics per hospital medicine and narrow per sensitivities when available. No acute intervention at this time. Plan of care reviewed with Dr. Medrano. Last stent exchange was on 11/04/2021. He is becoming due for scheduled bilateral stent exchange. We will plan on stent exchange during admission when he is medically optimized. Currently COVID positive in precautions. He is asymptomatic from COVID standpoint. Discussed with attending hospitalist and stable for procedure on 02/10. Plan: Continue antibiotics, supportive care, bowel regimen and medical management per hospital medicine. Proceed with cystoscopy and bilateral stent exchange on 02/10/2021 presuming he remains medically stable. OR notified. Hold Eliquis on 02/[address] Medrano - discussed with hospitalist. Make NPO at [place] prior to procedure. Admission and Anticipated Discharge Date Admission Date: February 05, 2022 Subjective Patient seen and examined at bedside this afternoon. He is awake and resting in bed. No acute issues overnight. He offers no complaints at present. He denies abdominal, flank or suprapubic pain. No nausea or vomiting. No fever or chills. Suprapubic tube intact and draining some cloudy purulent appearing urine with some pink tinge. SP tube site noted to have some discharge. Review of Systems Constitutional: as per Subjective / HPI Gastrointestinal: as per Subjective / HPI Genitourinary: + as per Subjective / HPI Physical Exam Constitutional: chronically ill appearing, no acute distress Respiratory: normal respiratory effort; no respiratory distress and no labored breathing Cardiovascular: Extremities: + edema (bilateral upper extremities) Gastrointestinal (Abdomen): Percussion/Palpation: abdomen soft; abdomen nontender Musculoskeletal: Head/Neck/Chest: normocephalic and head atraumatic Neurologic: awake Psychiatric: Orientation: oriented to person Genitourinary: SP tube intact and draining cloudy/purulent appearing with some pink tinge Results & Data ([facility]) Vital Signs (Past 12 Hours) Vital Signs Temp Pulse Resp BP BP Pulse Ox O2 Del Method 02/07/22 07:30 37.0 C 02/07/22 09:00 84 14 98/57 L 96 Room Air 02/07/22 09:42 102/96 02/07/22 08:20 87 17 106/66 95 Room Air 02/07/22 07:00 89 20 96 Room Air 02/07/22 06:00 85 15 93 02/07/22 05:00 82 3 L 94 02/07/22 04:00 106 H 10 L 96 02/07/22 03:00 79 14 96 02/07/22 02:00 108 H 14 95 02/07/22 01:00 79 13 96 PG Care Time/CCT Total # of Minutes Spent Total Time Spent with Patient: Total time spent is greater than 50% in coordination of care (as documented) at patient's floor/unit and/or counseling patient: Coding Level of Care Code 23232 Subseq Hosp Care Lvl 2 Diagnoses Ureteral stent present Z96.0 UTI (urinary tract infection) N39.0 Chronic suprapubic catheter Z93.59
--- NOTE | 2022-02-07 15:48 | Anesthesiology Consultation ---
Date of Service February 07, 2022 The patient has multiple serious comorbidities and is now positive for Covid 19. He is to be evaluated by an anesthesiologist on the day of his surgery. Assessment & Plan Chart Review Chart Review: Pending: Refer to Additional Notes / Consult section (evaluation by anesthesiologist on day of procedure) and Patient NOT seen in Pre Admission Testing Consults Requested none hospitalist is following the patient History Surgery Operation Date: 02/10/22 07:30 Proposed Procedures p Cystoscopy, Bilateral Stent Exchange - William Medrano DO Height/Weight Height: 5 ft 9 in Weight: 82.3 kg Allergies Allergy/AdvReac Type Severity Reaction Status Date / Time captopril Allergy Severe Anaphylaxis Verified 02/05/22 17:27 Iodinated Contrast Media Allergy Severe Anaphylaxis Verified 02/05/22 17:27 morphine Allergy Severe Anaphylaxis Verified 02/05/22 21:27 oxaprozin Allergy Severe Anaphylaxis Verified 02/05/22 17:27 torsemide Allergy Severe Anaphylaxis Verified 02/05/22 17:27 hydrocodone Allergy Mild Rash Verified 02/05/22 17:27 Medications Home Medications Medication Instructions Recorded Confirmed Last Taken folic acid 1 mg tablet 1 mg PO QAM #90 tabs 10/04/19 12/20/21 02/05/22 albuterol sulfate 90 mcg/actuation 2 puff inhalation Q6H PRN 07/09/20 02/05/22 07/20/20 aerosol inhaler (Ventolin HFA) cough/wheeze/shortness of breath #1 inhaler cyanocobalamin (vitamin B-12) 1,000 mcg PO QAM 07/16/20 02/05/22 02/05/22 1,000 mcg tablet ferrous sulfate 325 mg (65 mg 325 mg PO QAM 07/16/20 12/20/21 02/05/22 iron) tablet,delayed release polyethylene glycol 3350 17 gram 17 g PO BID PRN Constipation 07/16/20 02/05/22 Unknown oral powder packet (Miralax) ascorbic acid (vitamin C) 500 mg 500 mg PO QAM 10/22/20 02/05/22 02/05/22 tablet (Vitamin C) docusate sodium 100 mg capsule 100 mg PO BID PRN Constipation 10/22/20 02/05/22 02/05/22 08:00 (Stool Softener) vitamin E 268 mg (400 unit) capsule 400 unit PO HS 10/22/20 02/05/22 02/04/22 albuterol sulfate 2.5 mg/3 mL 2.5 mg (3 mL) inhalation QID PRN 04/16/21 02/05/22 Unknown (0.083 %) solution for nebulization shortness of breath or wheezing #75 mL isosorbide mononitrate 30 mg 30 mg PO QAM #90 tabs 05/22/21 12/20/21 02/05/22 tablet,extended release 24 hr nystatin 100,000 unit/gram topical 1 applic topical UD PRN Skin 05/22/21 02/05/22 Unknown cream Irritation gabapentin 300 mg capsule 300 mg PO HS #90 caps 06/14/21 02/05/22 02/04/22 ipratropium 0.5 mg-albuterol 3 mg 3 ml inhalation Q6H PRN wheezing 06/20/21 02/05/22 Unknown (2.5 mg base)/3 mL nebulization #90 mL soln bupropion HCl 100 mg tablet,12 hr 100 mg PO BID #60 ea 08/09/21 02/05/22 02/05/22 08:00 sustained-release apixaban 2.5 mg tablet (Eliquis) 2.5 mg PO BID #180 tabs 08/13/21 02/05/22 02/05/22 08:00 tamsulosin 0.4 mg capsule 0.4 mg PO HS #30 caps 08/22/21 02/05/22 02/04/22 tramadol 50 mg tablet 50 mg PO TID PRN Pain #30 tabs 09/03/21 02/05/22 02/05/22 08:00 memantine 10 mg tablet (Namenda) 10 mg PO BID #180 tabs 09/09/21 02/05/22 02/05/22 08:00 benzonatate 100 mg capsule 100 mg PO TID PRN cough #30 caps 09/23/21 02/05/22 Unknown donepezil 10 mg tablet 10 mg PO HS #90 tabs 09/23/21 02/05/22 02/04/22 calcium carbonate 500 mg-vitamin 1 tab PO DAILY 09/29/21 02/05/22 02/04/22 D3 5 mcg (200 unit) tablet acetaminophen 325 mg tablet 650 mg PO Q6H PRN pain #30 tabs 12/18/21 02/05/22 Unknown amlodipine 5 mg tablet (Norvasc) 5 mg PO QAM #90 tabs 12/30/21 02/05/22 02/05/22 carvedilol 3.125 mg tablet 3.125 mg PO BIDWMEAL #180 tabs 01/06/22 02/05/22 02/05/22 08:00 levothyroxine 112 mcg tablet 112 mcg PO HS #90 tabs 01/15/22 02/05/22 02/04/22 (Synthroid) famotidine 40 mg tablet (Pepcid) 40 mg PO DAILYBB #90 tabs 01/20/22 02/05/22 02/05/22 bethanechol chloride 50 mg tablet 50 mg PO QID #360 tabs 01/27/22 02/05/22 02/05/22 08:00 simvastatin 80 mg tablet 80 mg PO HS 02/05/22 02/05/22 02/04/22 Active Medications Generic Name Dose Route Start Last Admin Trade Name Freq PRN Reason Stop Dose Admin Acetaminophen 650 mg 02/05/22 18:42 02/06/22 12:49 Acetaminophen 325 Mg Tab PO 03/07/22 18:44 650 mg Q6H PRN Administration Pain (1,2,3) Or Fever Amlodipine Besylate 5 mg 02/06/22 09:00 02/07/22 08:24 Amlodipine Besylate 5 Mg Tab PO 03/08/22 08:59 5 mg QAM FLEX Administration Ascorbic Acid 500 mg 02/06/22 09:00 02/07/22 08:24 Ascorbic Acid 500 Mg Tab PO 03/08/22 08:59 500 mg QAM FLEX Administration Bethanechol Chloride 50 mg 02/05/22 21:00 02/07/22 12:50 Bethanechol Chl 25 Mg Tab PO 03/07/22 20:59 50 mg QID FLEX Administration Bupropion HCl 100 mg 02/05/22 21:00 02/07/22 08:24 Bupropion Sr 100 Mg Tabcr PO 03/07/22 20:59 100 mg BID FLEX Administration Calcium/Vitamin D 1 tab 02/06/22 18:00 02/06/22 17:03 Calcium 600mg + Vit D 400 Iu Tab PO 03/08/22 17:59 1 tab DAILY@1800 FLEX Administration Carvedilol 3.125 mg 02/05/22 20:55 02/07/22 08:23 Carvedilol 3.125 Mg Tab PO 03/07/22 20:54 3.125 mg BIDM FLEX Administration Cyanocobalamin 1,000 mcg 02/06/22 09:00 02/07/22 08:24 Cyanocobalamin (B-12) 500 Mcg Tablet PO 03/08/22 08:59 1,000 mcg QAM FLEX Administration Docusate Sodium 100 mg 02/06/22 09:00 02/07/22 08:23 Docusate Sodium 100 Mg Cap PO 03/08/22 08:59 100 mg BID FLEX Administration Donepezil HCl 10 mg 02/05/22 21:00 02/06/22 21:10 Donepezil Hcl 10 Mg Tab PO 03/07/22 20:59 10 mg HS FLEX Administration Famotidine 20 mg 02/06/22 06:30 02/07/22 08:24 Famotidine 20 Mg Tab PO 03/08/22 06:29 20 mg DAILYBB FLEX Administration Ferrous Sulfate 325 mg 02/06/22 09:00 02/07/22 08:23 Ferrous Sulfate 325 Mg Tab PO 03/08/22 08:59 325 mg QAM FLEX Administration Folic Acid 1 mg 02/06/22 09:00 02/07/22 08:24 Folic Acid 1 Mg Tab PO 03/08/22 08:59 1 mg QAM FLEX Administration Gabapentin 300 mg 02/05/22 21:00 02/06/22 21:10 Gabapentin 300 Mg Cap PO 03/07/22 20:59 300 mg HS FLEX Administration Cefepime HCl 2,000 mg/ Syringe 20 mls @ 5 mls/min 02/06/22 05:00 02/07/22 05:07 IV 02/16/22 04:59 5 mls/min Q12H FLEX Administration Protocol Metronidazole 500 mg in 100 mls @ 100 mls/hr 02/05/22 21:00 02/07/22 15:44 Flagyl IV 02/15/22 20:59 Infused Q8H FLEX Infusion Isosorbide Mononitrate 30 mg 02/06/22 09:00 02/07/22 08:24 Isosorbide [place]ger Extended Rel 30 Mg Tabcr PO 03/08/22 08:59 30 mg QAM FLEX Administration Levothyroxine Sodium 112 mcg 02/05/22 21:00 02/06/22 21:10 Levothyroxine Sodium 112 Mcg Tablet PO 03/07/22 20:59 112 mcg HS FLEX Administration Memantine 10 mg 02/05/22 21:00 02/07/22 08:25 Memantine Hcl 10 Mg Tab PO 03/07/22 20:59 10 mg BID FLEX Administration Sennosides 8.6 mg 02/06/22 09:00 02/07/22 08:24 Senna 8.6 Mg Tab PO 03/08/22 08:59 8.6 mg QAM FLEX Administration Simvastatin 80 mg 02/05/22 21:00 02/06/22 21:11 Simvastatin 80 Mg Tab PO 03/07/22 20:59 80 mg HS FLEX Administration Tamsulosin HCl 0.4 mg 02/05/22 21:00 02/06/22 21:11 Tamsulosin Hcl 0.4 Mg Cap PO 03/07/22 20:59 0.4 mg HS FLEX Administration Past Medical History Medical History Anxiety and depression Aortic stenosis Severe per 09/30/21 ECHO UZMA 0.8cm CAD (coronary artery disease) Multiple cardiac stents (x4 total)- most recent 3+ years ago 1997- LCx- stent Most recent cath 2013 per cardio records "LAD okay, LCX OM 30, RCA ok, NL EF" Chronic diastolic heart failure Chronic pain 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 On donepezil and memantine, follows with neurology Dyslipidemia History of kidney stones History of LA (myocardial infarction) 1997- Follows with Dr. Hodge/Kassidy History of recent hospitalization Admitted to [facility] 07/10/21-07/14/21- for staph bacteremia secondary to infected wound at suprapubic catheter site, UTI, acute metabolic encephalopathy; per 08/09/21 neuro note- bacteremia resolved with abxs, acute metabolic encephalopathy resolved, mental status back to baseline, UTI/GIOVANY resolved after abx. Hydronephrosis 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 SSS Initially implanted in 2008- generator change in 2017 Paroxysmal atrial fibrillation NO HX CARDIOVERSION On Eliquis Recurrent UTI Secondary hyperparathyroidism of renal origin Sleep apnea NO DEVICE USED UNABLE TO TOLERATE CPAP Stage 3b chronic kidney disease Suprapubic catheter In place secondary to neurogenic bladder Past Family History Family History Father Diabetes Mother Coronary heart disease Hypertension Brother Seizure Other No family history of adverse response to anesthesia Denies family history of Ovarian cancer Prostate cancer Myocardial infarction Breast cancer Colorectal cancer Past Surgical History Surgical History H/O total knee replacement R/L History of back surgery MULTIPLE History of cardiac cath Multiple cardiac stents (x4 total)- most recent 3+ years ago History of carpal tunnel release of both wrists History of cataract surgery B/L History of colonoscopy History of lithotripsy History of lumbar fusion History of prostate surgery Partial prostatectomy History of thyroidectomy secondary to goiter History of tooth extraction All teeth S/P cystoscopy with ureteral stent placement last 05/2021 @ [facility] Dr. William Medrano- Cystoscopy, Bilateral retrograde pyelogram, Bilateral ureteral stent exchange, Left aspiration and culture S/P TURP S/P ureteral stent placement Cysto, B/L RPG, right ureteroscopy, stent exchange: 07/06/18: LMA#5 at [facility] Cysto stent exchange (11/2018) Cystoscopy, stent exchange, suprapubic catheter (04/30/20): MAC at [facility] Social History Smoking Status: Current every day smoker tobacco type: cigarettes, pipe and cigars Hx Alcohol Use: No Hx Substance Use: No substance use type: does not use Physical Exam Vital Signs Last Vital Signs Temp 37.0 C 02/07/22 07:30 Pulse 84 02/07/22 09:00 Resp 14 02/07/22 09:00 BP 102/96 02/07/22 09:42 Pulse Ox 93 02/07/22 11:00 O2 Del Method 02/07/22 11:00 Testing Laboratory Results 02/07/22 05:37 02/07/22 05:37 PT 13.0 Seconds (9.0-12.0) H 02/06/22 10:16 INR 1.2 (0.9-1.1) H 02/06/22 10:16 APTT 32.1 Seconds (21.0-31.0) H 02/05/22 14:20 Urine Color Mccreary 02/05/22 16:30 Urine Appearance Turbid (Clear) A 02/05/22 16:30 Urine pH 5.5 (4.5-7.5) 02/05/22 16:30 Ur Specific [place] 1.012 (1.000-1.030) 02/05/22 16:30 Urine Protein 3+ (Negative) H 02/05/22 16:30 Urine Glucose (UA) Negative (Negative) 02/05/22 16:30 Urine Ketones Negative (Negative) 02/05/22 16:30 Urine Nitrite Positive (Negative) A 02/05/22 16:30 Ur Leukocyte Esterase 3+ (Negative) H 02/05/22 16:30 Urine WBC (Auto) >30 /hpf (0-5) H 02/05/22 16:30 Urine RBC (Auto) >30 /hpf (0-4) H 02/05/22 16:30 U Hyaline Cast (Auto) 1-5 /lpf (0-5) 02/05/22 16:30 U Epithel Cells (Auto) >30 /lpf (0-5) H 02/05/22 16:30 Urine Bacteria (Auto) 4+ (Negative) H 02/05/22 16:30 Blood Type O Positive 02/05/22 20:07 Antibody Screen NEGATIVE 02/05/22 20:07 02/05/22 14:56 Aerobic Blood Culture - Preliminary Blood No growth in Aerobic bottle after 48 hours. Anaerobic Blood Culture - Preliminary No growth in Anaerobic bottle after 48 hours. 02/05/22 14:20 Aerobic Blood Culture - Preliminary Blood No growth in Aerobic bottle after 48 hours. Anaerobic Blood Culture - Preliminary No growth in Anaerobic bottle after 48 hours. 02/05/22 16:30 Urine Culture - Preliminary Urine,Straight Cath Citrobacter farmeri Gram negative bacilli#2 Electrocardiogram Date: 02/05/22 DICTATED BY:Itz David MD Test Reason : Blood Pressure : / mmHG Vent. Rate : 073 BPM Atrial Rate : 073 BPM P-R Int : 160 ms QRS Dur : 102 ms QT Int : 436 ms P-R-T Axes : 042 -37 067 degrees QTc Int : 480 ms Poor data quality, interpretation may be adversely affected Normal sinus rhythm Left axis deviation Nonspecific ST abnormality Abnormal ECG When compared with ECG of 20-DEC-2021 14:38, Premature atrial complexes are no longer Present Nonspecific T wave abnormality, worse in Lateral leads Confirmed by Itz David ([id number]) on 02/05/2022 6:30:51 PM Referred By: REFERRED SELF Confirmed By:Rohan David Chest X-Ray Date: 02/05/22 XR chest 1V portable HISTORY: 82 years-old Male bilateral upper extremity edema acute shortness breath COMPARISON: Chest CT 11/12/2021 TECHNIQUE: Portable AP view of the chest FINDINGS: Cardiac silhouette is enlarged. Atherosclerosis of the aorta. Left subclavian pacer. Small pleural effusions. No pneumothorax. Peripheral prominent interstitial coarsening is again noted within all lung zones bilaterally. Degenerative changes of the shoulders and spine. Right-sided ureteral stent. Surgical clips of the abdominal right upper quadrant. IMPRESSION: 1. Cardiomegaly without overt pulmonary edema. 2. Peripheral predominant interstitial coarsening appears similar to the comp arison study which may represent a chronic infectious or inflammatory pneumonitis versus postinflammatory scarring. 3. Small pleural effusions. ACT 112: Negative or not required by law. The above report was generated using voice recognition software. It may contain grammatical, syntax or spelling errors. Electronically signed by: Avelino Joshi M.D. 02/05/2022 2:14 PM Dictated:02/05/221410 Transcribed: 02/05/221410 Echocardiogram Date: 09/30/21 EF: 45-50 LV Function: dysfunctional Other Findings: + LVH (moderate) and + diastolic dysfunction (grade 1) Valvular Disease: + (severe) and + MR (mild) mild to moderate TR Other Testing ABDOMEN AND PELVIS CT WITHOUT CONTRAST CT DOSE: 604.53 mGy.cm HISTORY: Follow up study in a patient with bilateral ureteral stents . Acute generalized abdominal pain monitor BL ureteral stents TECHNIQUE: Multiaxial CT images of the abdomen and pelvis were performed without contrast. A dose lowering technique was utilized adhering to the principles of ALARA. COMPARISON STUDY: 12/20/2021 FINDINGS: Limited exam secondary to positioning. Cardiomegaly with trace p ericardial effusion and extensive coronary artery calcifications. Trace right and small left pleural effusions. Bronchial wall thickening with similar appearing bibasilar densities. No pneumatosis or pneumoperitoneum. Calcified granulomata of the spleen. Moderately atrophic pancreas. Unremarkable adrenal glands. Cholecystectomy. Unremarkable liver. Atrophy with cortical thinning of the kidneys redemonstrated. Moderate right and severe left hydroureteronephrosis redemonstrated. Left-sided renal cysts are again noted. Moderate amount of air within the right renal collecting system and ureter. Trace air within the left renal collecting system. Bilateral ureteral stents are in place. No renal or ureteral calculi identified. Suprapubic urinary bladder catheter is noted. Moderate amount of air within the urinary bladder lumen with wall thickening and perivesicular stranding. Small urinary bladder diverticula. Small fat filled umbilical hernias. Suggested penile implants are partially imaged. Atherosclerosis of the aorta. No lymphadenopathy identified. No bowel obstruction. Urinary bladder wall thickening with perirectal stranding. There is moderate colonic fecal retention. Noninflamed appendix. Mild generalized body wall edema. Degenerative changes of the spine, pelvis and hips. No acute fracture identified. Ankylosing spondylosis. Severe left hip osteoarthritis with chronic remodeling. IMPRESSION: 1. Unchanged moderate right and severe left hydroureteronephrosis with stable po sitioning of the ureteral stents. 2. No renal or ureteral calculi identified. 3. Air within the renal collecting systems and ureters, right greater than left with air also present within the urinary bladder, likely secondary to the indwelling suprapubic catheter. Correlate with urinalysis to exclude infection. 4. Constipation with possible mild stercoral proctitis. 5. No bowel obstruction or pneumoperitoneum. 6. Trace right and small left pleural effusions. ACT 112: Negative or not required by law. The above report was generated using voice recognition software. It may contain grammatical, syntax or spelling errors. Electronically signed by: Avelino Joshi M.D. 02/05/2022 8:04 PM Dictated:02/05/221941 Transcribed: 02/05/221941
[2022-02-07] MEDS ORDERED: POTASSIUM CHLORIDE CRTAB 20 MEQ TABCR PO STA (15:59)
[2022-02-07] MEDS: CALCIUM 600MG + VIT D 400 IU TAB PO SCH (17:29)
[2022-02-07] MEDS: POTASSIUM CHLORIDE / WTR 10 MEQ/100 ML PLCT IV SCH ×2 (17:29→21:32)
[2022-02-07] MEDS: SIMVASTATIN 80 MG TAB PO SCH (22:47)
[2022-02-07] MEDS: GABAPENTIN 300 MG CAP PO SCH (22:48)
[2022-02-07] MEDS: TAMSULOSIN HCL 0.4 MG CAP PO SCH (22:48)
[2022-02-07] MEDS: LEVOTHYROXINE SODIUM 112 MCG TABLET PO SCH (22:48)
[2022-02-07] MEDS: DONEPEZIL HCL 10 MG TAB PO SCH (22:48)
[2022-02-07] MEDS ORDERED: NYSTATIN SUSP 500,000 U/5 ML UDC PO STA (23:00)
[2022-02-08] MEDS: metroNIDAZOLE 500 MG/100 ML BAG IV SCH ×3 (05:07→19:18)
[2022-02-08] MEDS: CEFEPIME 2,000 MG in SYRINGE 0 ML IV SCH (05:07)
[2022-02-08] MEDS: FAMOTIDINE 20 MG TAB PO SCH (05:08)
[2022-02-08 06:24] LABS: Hematocrit (blood only) 26.5 % (40.1-51.0); Hemoglobin 8.8 g/dl (14.0-18.0); Mean Corpuscular Hemoglobin 31.9 pg (25.0-34.0); Mean Corpuscular Hgb Conc 33.2 g/dL (32.0-36.0); Mean Platelet Volume 9.8 fL (9.4-12.4); Platelet Count 225 K/uL (130-400); RDW Coefficient of Variation 13.9 % (11.5-14.5); RDW Standard Deviation 48.8 fL (36.4-46.3); Red Blood Count 2.76 M/uL (4.63-6.08); White Blood Count 9.22 K/ul (4.8-10.8)
[2022-02-08 06:56] LABS: Bilirubin,Total 0.3 mg/dl (0.2-1.0); Calcium 7.7 mg/dl (8.5-10.1); Creatinine Clr Calc Pharmacy 41.2 ml/min; Est GFR (African American) 55.4 ml/min; Est GFR (Non-African American) 47.8 ml/min; Magnesium 1.9 mg/dl (1.7-2.4); Potassium 3.3 mmol/L (3.5-5.1); Total Protein 4.8 gm/dl (6.0-8.3)
[2022-02-08 07:05] LABS: Ferritin 80.4 ng/ml (8-388)
[2022-02-08 07:13] LABS: Vitamin B12 > 1500 pg/ml (180-914)
[2022-02-08 08:05] LABS: Albumin Globulin Ratio 0.7 (0.9-2); Globulin 2.8 gm/dl (2.5-4.0)
[2022-02-08] MEDS ORDERED: POTASSIUM CHLORIDE CRTAB 20 MEQ TABCR PO STA (09:10)
[2022-02-08] MEDS ORDERED: cefTRIAXone SODIUM 1,000 MG in DEXTROSE 5% AD-VAN 50 ML IV SCH (09:15)
[2022-02-08] MEDS: DOCUSATE SODIUM 100 MG CAP PO SCH ×2 (09:16→21:16)
[2022-02-08] MEDS: BETHANECHOL CHL 25 MG TAB PO SCH ×4 (09:16→19:22)
[2022-02-08] MEDS: ASCORBIC ACID 500 MG TAB PO SCH (09:17)
[2022-02-08] MEDS: buPROPion SR 100 MG TABCR PO SCH ×2 (09:17→19:24)
[2022-02-08] MEDS: MEMANTINE HCL 10 MG TAB PO SCH ×2 (09:17→19:23)
[2022-02-08] MEDS: SENNA 8.6 MG TAB PO SCH (09:19)
[2022-02-08] MEDS: amLODIPine BESYLATE 5 MG TAB PO SCH (09:19)
[2022-02-08] MEDS: FERROUS SULFATE 325 MG TAB PO SCH (09:19)
[2022-02-08] MEDS: ISOSORBIDE MONO EXTENDED REL 30 MG TABCR PO SCH (09:20)
[2022-02-08] MEDS: CYANOCOBALAMIN (B-12) 500 MCG TABLET PO SCH (09:21)
[2022-02-08] MEDS: FOLIC ACID 1 MG TAB PO SCH (09:21)
[2022-02-08] MEDS: carvediloL 3.125 MG TAB PO SCH ×2 (10:32→17:14)
[2022-02-08] MEDS: cefTRIAXone SODIUM 2,000 MG in DEXTROSE 5% 50 ML IV SCH (10:33)
--- NOTE | 2022-02-08 15:54 | Hospitalist Progress Note ---
Date of Service February 08, 2022 Assessment & Plan (1) UTI (urinary tract infection): Plan: Complicated catheter associated UTI -catheter associated uti, ureteral stents , air in renal collecting system on CT cannot tell if infection or from suprapubic cath urology consult as pt near due for stent exchange, tentatively planned for feb 10 2022, Eliquis on hold -Review of previous urine cultures shows pseudomonas, e coli, grisel, and coag negative staph Cultures have grown out Citrobacter farmeri and the second gram-negative organism also grew out Citrobacter farmeri -Changed antibiotic to Ceftriaxone (day #3 antibiotics) (2) Elevated troponin: Plan: -Patient's initial troponin elevated at 24.9 and then went down to 22, patient denies chest pain Has a history of underlying CAD with bare-metal stents to LCx in 1997 -ECG is showing some T-wave inversions in the lateral leads but is without acute ST segment changes, elevated troponin secondary to demand ischemia (3) Hematuria: Plan: -Patient's Hgb is down but not in need of transfusion at this point -Has remained relatively stable and will continue to monitor -No other signs of bleeding at this time and patient has been hemodynamically stable -Eliquis held currently (4) Stercoral colitis: Plan: Noted on CT abdomen/pelvis on admission Has had large bowel movement since admission with bowel regimen Continue Flagyl and ceftriaxone Monitor for constipation (5) COVID-19: Plan: -Positive on screen on admission -Currently stable on RA and without significant findings on his CXR -Symptomatic treatment for now with DuoNebs, prn robitussin, and prn O2 -Will place in covid isolation -No indication for Remdesivir as unclear when infection started -No indication for dexamethasone as he is not hypoxic -Saturating well on RA (6) Ureteral stent present: Plan: -Patient with hx of BL hydronephrosis with BL ureteral stent placement with Dr. Medrnao on his last admission planned stent exchange February 10 2022 (7) Hypokalemia: Plan: replete and monitor (8) Chronic suprapubic catheter: Plan: -See UTI Will need exchange of suprapubic catheter prior to discharge given UTI (9) Anemia: Plan: Hemoglobin low on admission at 7.9 but has increased somehow to 9.6, normocytic Some hematuria and blood loss -Continue ferrous sulfate B12 and folate normal, transferrin saturation normal at 42% Follow CBC in the morning TSH recently normal (10) Chronic diastolic heart failure: Plan: -LVEF of 45-50% with grade I diastolic dysfunction -continues to be euvolemic -Continue carvedilol, amlodipine, and Imdur (11) Hypothyroidism: Plan: -Continue levothyroxine Recent TSH normal in 09/2021 (12) Dyslipidemia: Plan: -Continue statin (13) Dementia: Plan: -Only oriented to self -Continue Namenda and aricept (14) CAD (coronary artery disease): Plan: -Not currently on aspirin due to being on Eliquis With history of bare-metal stent to LCx in 1997 continue statin therapy, beta-christina, isosorbide Follows with [facility] (15) Paroxysmal atrial fibrillation: Plan: In sinus rhythm on admission Eliquis on hold for upcoming procedure -Continue Carvedilol (16) Aortic stenosis: Plan: Known to be severe on echocardiogram from 09/2021 with mild AI, mild to moderate MR, EF mildly reduced at 45-50% Unclear if has followed up with 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 twice daily Plan DVT prophylaxis-Eliquis on hold SCDs ordered Disposition-continued stay Admission and Anticipated Discharge Date Admission Date: February 05, 2022 Supervising Physician Co-Signing Physician Notes PA Supervision Note: I did not personally see or examine the patient today, but I verified all delaney points of KAMI Moreau's assessment and plan with the following exceptions/additions: None Subjective Patient is awake in bed watching sports on television in NAD. He voices no complaints. History is limited with baseline dementia. Per nursing no new issues. He is eating well and moved his bowels x 1 today. Review of Systems Review of Systems: Patient has no complaints. He does have dementia and is alert and oriented to person only Physical Exam Constitutional: Patient is awake in bed in NAD Neck: trachea midline, no thyromegaly Respiratory: diminished breath sounds no wheezes, rhonchi or rales Cardiovascular: RRR, no murmur, no edema Extremities: no calf tenderness and no edema DP pulses +2 symmetric Gastrointestinal (Abdomen): normal bowel sounds, soft, nontender, no hepatosplenomegaly suprapubic catheter with dark colored urine no gross hematuria Neurologic: moves all extremities and awake Psychiatric: Orientation: alert, oriented to person and cooperative Results & Data Results & Data ([facility]) Vital Signs (Past 12 Hours) Vital Signs Temp Pulse Resp BP Pulse Ox O2 Del Method O2 Del Method 02/08/22 08:20 Room Air 02/08/22 15:18 37.0 C 83 20 102/60 90 Room Air 02/08/22 11:00 Room Air 02/08/22 07:57 36.4 C L 60 19 125/69 96 Room Air Laboratory Results Abnormal lab results 02/08/22 02/08/22 02/08/22 Range/Units 05:36 05:36 05:36 RBC 2.76 L (4.63-6.08) M/uL Hgb 8.8 L (14.0-18.0) g/dl Hct 26.5 L (40.1-51.0) % RDW Std Deviation 48.8 H (36.4-46.3) fL Potassium 3.3 L (3.5-5.1) mmol/L Chloride 112 H (98-107) mmol/L Calcium 7.7 L (8.5-10.1) mg/dl TIBC 96 L (250-450) mcg/dl Unsaturated IBC 56 L (155-355) mcg/dl Total Protein 4.8 L (6.0-8.3) gm/dl Albumin 2.0 L (3.4-5.0) gm/dl Albumin/Globulin Ratio 0.7 L (0.9-2) Vitamin B12 > 1500 H (180-914) pg/ml PG Care Time/CCT Total # of Minutes Spent Total Time Spent with Patient: Total time spent is greater than 50% in coordination of care (as documented) at patient's floor/unit and/or counseling patient: Coding Level of Care Code 54375 Subseq Hosp Care Lvl 3 Medical Decision Making Moderate Complexity Diagnoses UTI (urinary tract infection) N39.0 Indwelling urinary catheter type: cystostomy catheter Urinary tract infection type: catheter-associated UTI Elevated troponin R77.8 Hematuria R31.9 Stercoral colitis K52.89 COVID-19 U07.1 Ureteral stent present Z96.0 Hypokalemia E87.6 Chronic suprapubic catheter Z93.59 Anemia D64.9 Chronic diastolic heart failure I50.32 Hypothyroidism E03.9 Hypothyroidism type: acquired Dyslipidemia E78.5 Dementia F03.90 CAD (coronary artery disease) I25.10 Paroxysmal atrial fibrillation I48.0 Aortic stenosis I35.0 Pacemaker Z95.0 Anxiety and depression F41.9; F32.9 (1) UTI (urinary tract infection) Indwelling urinary catheter type: cystostomy catheter Urinary tract infection type: catheter-associated UTI (2) Hypothyroidism Hypothyroidism type: acquired Qualified Code(s): E03.9 - Hypothyroidism, unspecified
[2022-02-08] MEDS: CALCIUM 600MG + VIT D 400 IU TAB PO SCH (17:16)
[2022-02-08] MEDS: guaiFENesin SUGAR FREE 200 MG/10 ML UDC PO PRN (19:22)
[2022-02-08] MEDS: SIMVASTATIN 80 MG TAB PO SCH (19:22)
[2022-02-08] MEDS: TAMSULOSIN HCL 0.4 MG CAP PO SCH (19:23)
[2022-02-08] MEDS: DONEPEZIL HCL 10 MG TAB PO SCH (19:23)
[2022-02-08] MEDS: GABAPENTIN 300 MG CAP PO SCH (19:24)
[2022-02-08] MEDS: LEVOTHYROXINE SODIUM 112 MCG TABLET PO SCH (19:24)
[2022-02-09] MEDS: metroNIDAZOLE 500 MG/100 ML BAG IV SCH ×3 (04:58→19:56)
[2022-02-09] MEDS: FAMOTIDINE 20 MG TAB PO SCH (05:59)
[2022-02-09 07:58] LABS: Hematocrit (blood only) 26.3 % (40.1-51.0); Hemoglobin 8.5 g/dl (14.0-18.0); Mean Corpuscular Hemoglobin 31.4 pg (25.0-34.0); Mean Corpuscular Hgb Conc 32.3 g/dL (32.0-36.0); Mean Platelet Volume 9.8 fL (9.4-12.4); Platelet Count 224 K/uL (130-400); RDW Coefficient of Variation 14.2 % (11.5-14.5); RDW Standard Deviation 49.8 fL (36.4-46.3); Red Blood Count 2.71 M/uL (4.63-6.08); White Blood Count 8.28 K/ul (4.8-10.8)
[2022-02-09] MEDS: carvediloL 3.125 MG TAB PO SCH ×2 (08:04→16:45)
[2022-02-09] MEDS: amLODIPine BESYLATE 5 MG TAB PO SCH (08:05)
[2022-02-09] MEDS: BETHANECHOL CHL 25 MG TAB PO SCH ×4 (08:05→19:56)
[2022-02-09] MEDS: ASCORBIC ACID 500 MG TAB PO SCH (08:05)
[2022-02-09] MEDS: buPROPion SR 100 MG TABCR PO SCH ×2 (08:06→19:56)
[2022-02-09] MEDS: cefTRIAXone SODIUM 2,000 MG in DEXTROSE 5% 50 ML IV SCH (08:06)
[2022-02-09] MEDS: CYANOCOBALAMIN (B-12) 500 MCG TABLET PO SCH (08:07)
[2022-02-09] MEDS: DOCUSATE SODIUM 100 MG CAP PO SCH ×2 (08:07→19:57)
[2022-02-09] MEDS: ISOSORBIDE MONO EXTENDED REL 30 MG TABCR PO SCH (08:08)
[2022-02-09] MEDS: FERROUS SULFATE 325 MG TAB PO SCH (08:08)
[2022-02-09] MEDS: FOLIC ACID 1 MG TAB PO SCH (08:08)
[2022-02-09] MEDS: SENNA 8.6 MG TAB PO SCH (08:09)
[2022-02-09] MEDS: MEMANTINE HCL 10 MG TAB PO SCH ×2 (08:09→19:56)
--- NOTE | 2022-02-09 08:21 | Hospitalist Progress Note ---
Date of Service February 09, 2022 Assessment & Plan (1) UTI (urinary tract infection): Plan: Complicated catheter associated UTI -catheter associated uti, ureteral stents , air in renal collecting system on CT cannot tell if infection or from suprapubic cath urology consult as pt near due for stent exchange, tentatively planned for feb 10 2022, Eliquis on hold - NPO after midnight tonight -Review of previous urine cultures shows pseudomonas, e coli, grisel, and coag negative staph Cultures have grown out Citrobacter farmeri and the second gram-negative organism also grew out Citrobacter farmeri -Changed antibiotic to Ceftriaxone (day #4 antibiotics) (2) Elevated troponin: Plan: -Patient's initial troponin elevated at 24.9 and then went down to 22, patient denies chest pain Has a history of underlying CAD with bare-metal stents to LCx in 1997 -ECG is showing some T-wave inversions in the lateral leads but is without acute ST segment changes, elevated troponin secondary to demand ischemia (3) Hematuria: Plan: -Patient's Hgb is down but stable and no need for transfusion at this time -Has remained relatively stable and will continue to monitor -No other signs of bleeding at this time and patient has been hemodynamically stable -Eliquis held currently (4) Stercoral colitis: Plan: Noted on CT abdomen/pelvis on admission Has had large bowel movement since admission with bowel regimen Continue Flagyl and ceftriaxone Monitor for constipation (5) COVID-19: Plan: Positive on screen on admission Currently stable on RA and without significant findings on his CXR Symptomatic treatment for now with DuoNebs, prn robitussin, and prn O2 Will place in covid isolation No indication for Remdesivir as unclear when infection started No indication for dexamethasone as he is not hypoxic Saturating well on RA (93%) (6) Ureteral stent present: Plan: Patient with hx of BL hydronephrosis with BL ureteral stent placement with Dr. Medrano on his last admission planned stent exchange February 10 2022 npo at midnight and Eliquis on hold (7) Hypokalemia: Plan: replete and monitor (8) Chronic suprapubic catheter: Plan: -See UTI Will need exchange of suprapubic catheter prior to discharge given UTI (9) Anemia: Plan: Hemoglobin low on admission at 7.9 but has increased somehow to 9.6, normocytic Some hematuria and blood loss -Continue ferrous sulfate B12 and folate normal, transferrin saturation normal at 42% Follow CBC and continue to monitor for signs of active bleeding TSH recently normal (10) Chronic diastolic heart failure: Plan: -LVEF of 45-50% with grade I diastolic dysfunction -continues to be euvolemic -Continue carvedilol, amlodipine, and Imdur (11) Hypothyroidism: Plan: -Continue levothyroxine Recent TSH normal in 09/2021 (12) Dyslipidemia: Plan: -Continue statin (13) Dementia: Plan: Only oriented to self Continue Namenda and aricept (14) CAD (coronary artery disease): Plan: Not currently on aspirin due to being on Eliquis With history of bare-metal stent to LCx in 1997 Continue statin therapy, beta-christina, isosorbide Follows with [facility] (15) Paroxysmal atrial fibrillation: Plan: In sinus rhythm on admission Eliquis on hold for upcoming procedure -Continue Carvedilol (16) Aortic stenosis: Plan: Known to be severe on echocardiogram from 09/2021 with mild AI, mild to moderate MR, EF mildly reduced at 45-50% Unclear if has followed up with his primary spd manager since last office visit scanned into the chart from 04/2021 Follow-up with outpatient cardiology Avoid extremes of volume status and blood pressure (17) Pacemaker: Plan: Placed for sick sinus syndrome (18) Anxiety and depression: Plan: Continue home bupropion 100 Mg p.o. twice daily Plan DVT prophylaxis-Eliquis on hold SCDs ordered Disposition-continued stay Admission and Anticipated Discharge Date Admission Date: February 05, 2022 Supervising Physician Co-Signing Physician Notes PA Supervision Note: I did not personally see or examine the patient today, but I verified all delaney points of KAMI Moreau's assessment and plan with the following exceptions/additions: None Subjective Patient is awake in bed watching TV. He has no complaints but [facility] baseline dementia, history is limited. Review of Systems Review of Systems: unable to accurately assess ROS, patient has no compplaints but has baseline dementia and is only alert x person Physical Exam Neck: trachea midline, no thyromegaly Respiratory: able to speak in complete sentences; no respiratory distress, no labored breathing and does not use accessory muscles Cardiovascular: RRR, no murmur, no edema Extremities: no calf tenderness and no edema Gastrointestinal (Abdomen): normal bowel sounds, soft, nontender, no hepatosplenomegaly Neurologic: moves all extremities and awake Psychiatric: Orientation: alert, oriented to person and cooperative Results & Data Results & Data ([facility]) Vital Signs (Past 12 Hours) Vital Signs Temp Pulse Pulse Resp BP Pulse Ox O2 Del Method 02/09/22 07:56 36.5 C 78 20 98/59 L 97 Room Air 02/09/22 03:37 36.7 C 87 20 111/58 L 94 Room Air 02/09/22 00:24 36.7 C 84 20 110/67 96 Room Air 02/08/22 23:21 83 02/08/22 22:28 36.6 C 83 18 117/67 95 Room Air 02/08/22 20:45 Room Air 02/08/22 20:45 O2 Del Method 02/09/22 07:56 02/09/22 03:37 02/09/22 00:24 02/08/22 23:21 02/08/22 22:28 02/08/22 20:45 02/08/22 20:45 Room Air Laboratory Results Abnormal lab results 02/05/22 02/09/22 02/09/22 Range/Units 20:07 07:12 07:12 RBC 2.71 L (4.63-6.08) M/uL Hgb 8.5 L (14.0-18.0) g/dl Hct 26.3 L (40.1-51.0) % RDW Std Deviation 49.8 H (36.4-46.3) fL Potassium 3.3 L (3.5-5.1) mmol/L Chloride 114 H (98-107) mmol/L Carbon Dioxide 20 L (21-32) mmol/L Creatinine 1.46 H (0.6-1.4) mg/dl Calcium 7.7 L (8.5-10.1) mg/dl Crossmatch See Detail PG Care Time/CCT Total # of Minutes Spent Total Time Spent with Patient: Total time spent is greater than 50% in coordination of care (as documented) at patient's floor/unit and/or counseling patient: Coding Level of Care Code 23341 Subseq Hosp Care Lvl 2 Diagnoses UTI (urinary tract infection) N39.0 Indwelling urinary catheter type: cystostomy catheter Urinary tract infection type: catheter-associated UTI Elevated troponin R77.8 Hematuria R31.9 Stercoral colitis K52.89 COVID-19 U07.1 Ureteral stent present Z96.0 Hypokalemia E87.6 Chronic suprapubic catheter Z93.59 Anemia D64.9 Chronic diastolic heart failure I50.32 Hypothyroidism E03.9 Hypothyroidism type: acquired Dyslipidemia E78.5 Dementia F03.90 CAD (coronary artery disease) I25.10 Paroxysmal atrial fibrillation I48.0 Aortic stenosis I35.0 Pacemaker Z95.0 Anxiety and depression F41.9; F32.9 (1) UTI (urinary tract infection) Indwelling urinary catheter type: cystostomy catheter Urinary tract infection type: catheter-associated UTI (2) Hypothyroidism Hypothyroidism type: acquired Qualified Code(s): E03.9 - Hypothyroidism, unspecified
[2022-02-09 08:25] LABS: BUN Creatinine Ratio 12.3 (10-20); Calcium 7.7 mg/dl (8.5-10.1); Creatinine Clr Calc Pharmacy 38.3 ml/min; Est GFR (African American) 50.8 ml/min; Est GFR (Non-African American) 43.9 ml/min; Magnesium 1.9 mg/dl (1.7-2.4); Potassium 3.3 mmol/L (3.5-5.1)
[2022-02-09] MEDS ORDERED: POTASSIUM CHLORIDE CRTAB 20 MEQ TABCR PO STA (10:51)
[2022-02-09] MEDS: CALCIUM 600MG + VIT D 400 IU TAB PO SCH (16:46)
[2022-02-09] MEDS: guaiFENesin SUGAR FREE 200 MG/10 ML UDC PO PRN (19:55)
[2022-02-09] MEDS: TAMSULOSIN HCL 0.4 MG CAP PO SCH (19:55)
[2022-02-09] MEDS: DONEPEZIL HCL 10 MG TAB PO SCH (19:55)
[2022-02-09] MEDS: GABAPENTIN 300 MG CAP PO SCH (19:55)
[2022-02-09] MEDS: LEVOTHYROXINE SODIUM 112 MCG TABLET PO SCH (19:56)
[2022-02-09] MEDS: SIMVASTATIN 80 MG TAB PO SCH (19:56)
[2022-02-09] MEDS: ACETAMINOPHEN 325 MG TAB PO PRN (20:00)
[2022-02-10] MEDS: FAMOTIDINE 20 MG TAB PO SCH (04:50)
[2022-02-10] MEDS: metroNIDAZOLE 500 MG/100 ML BAG IV SCH ×3 (05:08→21:01)
[2022-02-10] MEDS ORDERED: ONDANSETRON INJ 2 MG/ML 2 ML VIAL ONE (06:56)
[2022-02-10] MEDS ORDERED: PHENYLEPHRINE 100MCG/ML 5ML SYR ONE (06:56)
[2022-02-10] MEDS ORDERED: LIDOCAINE 2% MPF LOCAL 5 ML VIAL INFIL ONE (06:56)
[2022-02-10] MEDS ORDERED: ePHEDrine sulfate 50 MG/ML SYR ONE (06:56)
[2022-02-10] MEDS ORDERED: fentaNYL citrate 100 MCG/2 ML VIAL ONE (06:56)
--- NOTE | 2022-02-10 07:09 | Urology Progress Note ---
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 Has stents in place. Has SP tube. Plan for exchange with monitoring. Baseline dementia and issues with memory. Have extensively discussed with family and options reviewed. Risks and benefits discussed at length for procedure. These include bleeding, infection, injury to surrounding tissues or organs, and risks associated with anesthesia. Patient states understanding and agrees to proceed. Will sign consent and proceed. Plan for cystoscopy with bilateral stent exchange. Admission and Anticipated Discharge Date Admission Date: February 05, 2022 Subjective Well known patient with chronic obstructive issues with stents in place. Has SP tube. Has noticed some frequency and urgency. Has not had severe pain in the back and flank. Does have occasional burning and irritation. No severe episodes or major changes. No new nausea or vomiting. Had previously tolerated anesthesia without major problems Review of Systems Review of Systems: All systems reviewed & are unremarkable except as noted in HPI & below Physical Exam Physical Exam: General: Alert in no acute distress. Dementia at baseline. No AMS HEENT: Normocephalic Atraumatic. Inspection normal. Cranial Nerves 2-12 Grossly intact. Normal inspection of face. Normal inspection of neck. Psychologic: Normal affect. Respiratory: Nonlabored. No use of accessory muscles. No tachypnea or dyspnea. Cardiovascular: No tachycardia Skin: Haslet and Dry. No rashes or visible lesions. Extremities/Lymphatics: No edema Abdomen: Soft Non-distended. No rebound or guarding. Results & Data ([facility]) Vital Signs (Past 12 Hours) Vital Signs Temp Pulse Pulse Resp BP Pulse Ox O2 Del Method 02/10/22 06:46 36.9 C 75 20 109/68 96 Room Air 02/10/22 06:02 36.3 C L 80 18 110/63 97 Room Air 02/10/22 03:10 36.6 C 80 18 99/67 L 94 Room Air 02/10/22 00:00 85 02/09/22 23:48 36.5 C 90 17 112/49 L 95 Room Air 02/09/22 20:03 36.8 C 88 20 112/58 L 96 Room Air PG Care Time/CCT Total # of Minutes Spent Total Time Spent with Patient: Total time spent is greater than 50% in coordination of care (as documented) at patient's floor/unit and/or counseling patient: Coding Level of Care Code 40783 Subseq Hosp Care Lvl 2 Diagnoses Ureteral stent present Z96.0 UTI (urinary tract infection) N39.0 Indwelling urinary catheter type: cystostomy catheter Urinary tract infection type: catheter-associated UTI Chronic suprapubic catheter Z93.59 (1) UTI (urinary tract infection) Indwelling urinary catheter type: cystostomy catheter Urinary tract infection type: catheter-associated UTI
[2022-02-10] MEDS ORDERED: ONDANSETRON INJ 2 MG/ML 2 ML VIAL IV PRN (07:24)
[2022-02-10] MEDS ORDERED: ATROPINE SULFATE 0.1 MG/ML 10ML SYR IV PRN (07:24)
[2022-02-10] MEDS ORDERED: fentaNYL citrate 100 MCG/2 ML VIAL IV PRN (07:24)
[2022-02-10] MEDS ORDERED: ePHEDrine sulfate 50 MG/ML AMP IV PRN (07:24)
[2022-02-10] MEDS ORDERED: DIATRIZOATE MEGLUMINE 30% 100ML VIAL INSTIL ONE (08:14)
--- NOTE | 2022-02-10 08:19 | Operative Report ---
PG Post Operative Report Pre & Post Diagnosis Operation Date: 02/10/22 07:30 Pre-Op Diagnosis: Bilateral hydronephrosis Post-Op Diagnosis: Bilateral hydronephrosis I identified the patient and participated in the time-out.: Yes Procedure Operation Date: 02/10/22 07:30 Actual Procedures p Cystoscopy with retrograde pyelograms and Bilateral Stent Exchange(Bilateral) - William Medrano DO Surgeon William Medrano, II, DO Qa Test Lead None Estimated Blood Loss 1 Findings Consistent with Post-Op Diagnosis Stents exchanged and placed in good position. Suprapubic catheter changed. Specimens None Drains 7 x 24 bilateral 20 Fr Suprapubic catheter. Anesthesia Type MAC Complications none Disposition Disposition: Recovery Room Indications Patient with obstruction with chronic stent changes. Risks and benefits discussed at length. Description of Procedure Patient was consented and brought back to the operating room. Patient was placed under anesthesia in the supine position and moved to the dorsal lithotomy position. Patient was prepped and draped in the regular sterile fashion. A time out was completed. A 30degree Cystoscope was placed into the bladder and the entire bladder was examined. The UO's were identified. The suprapubic catheter was clamped. The left stent was grasped and partially removed. A wire was then placed and the stent fully removed. The UO was cannulized over the wire with a dual lumen catheter and a retrograde pyelogram was completed. The wire was maintained and the catheter removed. With the wire in place, a 7 Fr Double J stent was placed. It was confirmed with fluoroscopy. This was then completed for the right stent. With the stents in place, the bladder was emptied. The scope was removed. The suprapubic catheter was then removed. A new 20 Fr myles was placed in the suprapubic tract without issues or problems. The patient was cleaned, aroused from anesthesia, and transferred to the pacu in stable condition having tolerated the procedure well with no complications. I was present and participated in all aspects of the procedure. The patient will be monitored in the PACU until transferred. Plan stent exchange in 3 months. I attest to the content of the Intraoperative Record and any orders documented therein. Any exceptions are noted below.
--- NOTE | 2022-02-10 09:19 | Anesthesiology Progress Note ---
Date of Service February 10, 2022 Anesthesia Post Procedure Vital Signs Vital Signs: Temp Pulse Pulse Pulse Resp BP BP 02/10/22 08:40 81 13 98/68 L 02/10/22 08:50 98.4 F 80 14 98/59 L 02/10/22 08:30 82 16 115/70 02/10/22 08:22 98.6 F 84 13 79/46 L 02/10/22 06:46 98.4 F 75 20 109/68 02/10/22 06:02 97.3 F L 80 18 110/63 02/10/22 03:10 97.9 F 80 18 99/67 L 02/10/22 00:00 85 02/09/22 23:48 97.7 F 90 17 112/49 L 02/09/22 20:03 98.2 F 88 20 112/58 L 02/09/22 14:43 97.9 F 93 H 16 111/69 02/09/22 11:56 97.9 F 83 16 98/63 L Pulse Ox O2 Del Method O2 Flow Rate 02/10/22 08:40 100 Oxymask 2 02/10/22 08:50 100 Oxymask 2 02/10/22 08:30 100 Oxymask 4 02/10/22 08:22 94 Oxymask 4 02/10/22 06:46 96 Room Air 02/10/22 06:02 97 Room Air 02/10/22 03:10 94 Room Air 02/10/22 00:00 02/09/22 23:48 95 Room Air 02/09/22 20:03 96 Room Air 02/09/22 14:43 90 Room Air 02/09/22 11:56 93 Room Air Pain Intensity Back: Pain Intensity: 0 Lower Abdomen: Pain Intensity: 2 Transfer of Care Handoff Completed per policy Notes Mental Status: alert / awake / arousable and participated in evaluation Patient Amnestic to Procedure: Yes Nausea / Vomiting: adequately controlled Pain: adequately controlled Airway Patency, RR, SpO2: stable & adequate BP & HR: stable & adequate Hydration State: stable & adequate Anesthetic Complications: no major complications apparent and Pt Satisfied with anesthetic care
[2022-02-10] MEDS: SENNA 8.6 MG TAB PO SCH ×2 (09:26→19:32)
[2022-02-10] MEDS: DOCUSATE SODIUM 100 MG CAP PO SCH ×2 (09:27→19:36)
[2022-02-10] MEDS: carvediloL 3.125 MG TAB PO SCH ×2 (09:28→17:24)
[2022-02-10] MEDS: BETHANECHOL CHL 25 MG TAB PO SCH ×4 (09:29→19:32)
[2022-02-10] MEDS: MEMANTINE HCL 10 MG TAB PO SCH ×2 (09:29→19:33)
[2022-02-10] MEDS: buPROPion SR 100 MG TABCR PO SCH ×2 (09:29→19:33)
[2022-02-10] MEDS: ISOSORBIDE MONO EXTENDED REL 30 MG TABCR PO SCH (09:30)
[2022-02-10] MEDS: ASCORBIC ACID 500 MG TAB PO SCH (09:30)
[2022-02-10] MEDS: FOLIC ACID 1 MG TAB PO SCH (09:30)
[2022-02-10] MEDS: FERROUS SULFATE 325 MG TAB PO SCH (09:30)
[2022-02-10] MEDS: amLODIPine BESYLATE 5 MG TAB PO SCH (09:30)
[2022-02-10] MEDS: CYANOCOBALAMIN (B-12) 500 MCG TABLET PO SCH (09:30)
[2022-02-10] MEDS: cefTRIAXone SODIUM 2,000 MG in DEXTROSE 5% 50 ML IV SCH (09:31)
--- NOTE | 2022-02-10 10:00 | Fluoroscopy Report ---
FL retrograde includes kub CLINICAL HISTORY: BILATERAL STENT EXCHANGE TECHNIQUE: 8 views were obtained with the C-arm in the OR with the above procedure. Total fluoroscopy time was 38 seconds. Radiation dose was 7.18 mGy. Comparison: None available at the time of this dictation. FINDINGS/IMPRESSION: Intraoperative images were obtained of bilateral retrograde mammogram and stent exchange. Please correlate with intraoperative fluoroscopy and operative report. ACT 112: Negative or not required by law. Electronically signed by: Negro Etienne M.D. 02/10/2022 9:58 AM
[2022-02-10 10:32] LABS: Hematocrit (blood only) 28.4 % (40.1-51.0); Hemoglobin 9.1 g/dl (14.0-18.0); Mean Corpuscular Hemoglobin 31.1 pg (25.0-34.0); Mean Corpuscular Volume 96.9 fL (80.0-100.0); Mean Platelet Volume 9.3 fL (9.4-12.4); Nucleated RBC # (auto) 0.03 K/uL (0-0); Nucleated RBC % (auto) 0.4 %; Platelet Count 246 K/uL (130-400); RDW Coefficient of Variation 14.5 % (11.5-14.5); RDW Standard Deviation 51.3 fL (36.4-46.3); Red Blood Count 2.93 M/uL (4.63-6.08); White Blood Count 8.25 K/ul (4.8-10.8)
[2022-02-10 11:00] LABS: BUN Creatinine Ratio 9.7 (10-20); Creatinine Clr Calc Pharmacy 36.1 ml/min; Est GFR (African American) 47.3 ml/min; Est GFR (Non-African American) 40.8 ml/min; Magnesium 2.1 mg/dl (1.7-2.4); Potassium 4.1 mmol/L (3.5-5.1)
--- NOTE | 2022-02-10 13:40 | Hospitalist Progress Note ---
Date of Service February 10, 2022 Assessment & Plan (1) UTI (urinary tract infection): Plan: Complicated catheter associated UTI -catheter associated uti, ureteral stents , air in renal collecting system on CT cannot tell if infection or from suprapubic cath urology following S/P cystoscopy with retrograde pyelogram, bilateral stent exchange and suprapubic catheter exchange today - Resumed previous heart healthy minced moist fluid restricted diet -Review of previous urine cultures shows pseudomonas, e coli, grisel, and coag negative staph Cultures have grown out Citrobacter farmeri and the second gram-negative organism also grew out Citrobacter farmeri -Changed antibiotic to Ceftriaxone (day #5 antibiotics) (2) Elevated troponin: Plan: -Patient's initial troponin elevated at 24.9 and then went down to 22, patient denies chest pain Has a history of underlying CAD with bare-metal stents to LCx in 1997 -ECG is showing some T-wave inversions in the lateral leads but is without acute ST segment changes, elevated troponin secondary to demand ischemia (3) Hematuria: Plan: -Patient's Hgb is down but stable and no need for transfusion at this time -Has remained relatively stable and will continue to monitor -No other signs of bleeding at this time and patient has been hemodynamically stable -Eliquis held currently (for urologic surgery today) - Some gross hematuria today post op in catheter bag (4) Stercoral colitis: Plan: Noted on CT abdomen/pelvis on admission Has had large bowel movement since admission with bowel regimen Continue Flagyl Monitor for constipation (5) COVID-19: Plan: Positive on screen on admission Currently stable on RA and without significant findings on his CXR Symptomatic treatment for now with DuoNebs, prn robitussin, and prn O2 Will place in covid isolation No indication for Remdesivir as unclear when infection started No indication for dexamethasone as he is not hypoxic Saturating well on RA (93%) (6) Ureteral stent present: Plan: Patient with hx of BL hydronephrosis with BL ureteral stent placement with Dr. Medrano on his last admission bilateral stent exchange and suprapubic catherter exchanged today (7) Hypokalemia: Plan: replete and monitor (8) Chronic suprapubic catheter: Plan: -See UTI Suprapubic catheter exchanged today (9) Anemia: Plan: Hemoglobin low on admission at 7.9 but has increased somehow to 9.6, normocytic Some hematuria and blood loss -Continue ferrous sulfate B12 and folate normal, transferrin saturation normal at 42% Follow CBC and continue to monitor for signs of active bleeding TSH recently normal (10) Chronic diastolic heart failure: Plan: -LVEF of 45-50% with grade I diastolic dysfunction -continues to be euvolemic -Continue carvedilol, amlodipine, and Imdur (11) Hypothyroidism: Plan: -Continue levothyroxine Recent TSH normal in 09/2021 (12) Dyslipidemia: Plan: -Continue statin (13) Dementia: Plan: Only oriented to self Continue Namenda and aricept (14) CAD (coronary artery disease): Plan: Not currently on aspirin due to being on Eliquis With history of bare-metal stent to LCx in 1997 Continue statin therapy, beta-christina, isosorbide Follows with [facility] (15) Paroxysmal atrial fibrillation: Plan: In sinus rhythm on admission Eliquis on hold for upcoming procedure -Continue Carvedilol (16) Aortic stenosis: Plan: Known to be severe on echocardiogram from 09/2021 with mild AI, mild to moderate MR, EF mildly reduced at 45-50% Unclear if has followed up with 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 twice daily Plan DVT prophylaxis-Eliquis on hold SCDs ordered Disposition-continued stay Admission and Anticipated Discharge Date Admission Date: February 05, 2022 Supervising Physician Co-Signing Physician Notes PA Supervision Note: I did not personally see or examine the patient today, but I verified all delaney points of KAMI Moreau's assessment and plan with the following exceptions/additions: None Patient is 82 yo M with Hx chronic suprapubic catheter and Hx catheter- associated UTIs, has chronic obstruction and bilateral ureteral stents presented for worsening abdominal pain and worsening rod hematuria, noted on UA and UCx to have bacteria in urine with indwelling hardware and worsening hematuria causing decrease in Hgb from ~10 to ~7.5, fortunately over last day or so Hgb has stabilized. Had ureteral stent replacement today and will continue to closely monitor Hgb given procedure and already with rod hematuria. Continue Rocephin for complicated UTI (citrobacter farmeri should be susceptible). Daily CBC to monitor for continued blood loss anemia requiring transfusion, as well as signs of systemic infection. Incidental diagnosis of COVID 19 on admission, fortunately no hypoxia, continue to monitor. Subjective Patient seen today after having cystoscopy and retrograde pyelogram and bilateral stent exchange and suprapubic catheter exchange. He was sleeping and awoke to name. He was oriented to person only. Per nursing no new complaints Review of Systems Review of Systems: ROS is limited due to patient's dementia Constitutional: no fever and no anorexia Physical Exam Constitutional: Patient resting after surgery in bed, and awoke to his name in NAD Neck: trachea midline, no thyromegaly Respiratory: no respiratory distress, no labored breathing, does not use accessory muscles and no cough Cardiovascular: RRR, no murmur, no edema Extremities: no calf tenderness and no edema Gastrointestinal (Abdomen): normal bowel sounds, soft, nontender, no hepatosplenomegaly (suprapubic catheter in place) Neurologic: moves all extremities and awake alert to person only Psychiatric: Orientation: alert, oriented to person and cooperative Results & Data Results & Data ([facility]) Vital Signs (Past 12 Hours) Vital Signs Temp Pulse Pulse Resp BP BP Pulse Ox 02/10/22 11:00 36.6 C 84 20 94/60 L 95 02/10/22 10:28 80 20 98/60 L 98 02/10/22 10:15 79 18 116/70 95 02/10/22 10:00 80 18 110/70 99 02/10/22 09:44 80 20 132/79 95 02/10/22 09:30 36.4 C L 80 20 116/73 95 02/10/22 09:15 36.6 C 80 18 118/71 94 02/10/22 08:40 81 13 98/68 L 100 02/10/22 08:50 36.9 C 80 14 98/59 L 100 02/10/22 08:30 82 16 115/70 100 02/10/22 08:22 37.0 C 84 13 79/46 L 94 02/10/22 06:46 36.9 C 75 20 109/68 96 02/10/22 06:02 36.3 C L 80 18 110/63 97 02/10/22 03:10 36.6 C 80 18 99/67 L 94 O2 Del Method O2 Flow Rate 02/10/22 11:00 Room Air 02/10/22 10:28 Room Air 02/10/22 10:15 Room Air 02/10/22 10:00 Room Air 02/10/22 09:44 Room Air 02/10/22 09:30 Room Air 02/10/22 09:15 Room Air 02/10/22 08:40 Oxymask 2 02/10/22 08:50 Oxymask 2 02/10/22 08:30 Oxymask 4 02/10/22 08:22 Oxymask 4 02/10/22 06:46 Room Air 02/10/22 06:02 Room Air 02/10/22 03:10 Room Air Laboratory Results Abnormal lab results 02/10/22 02/10/22 Range/Units 10:14 10:14 RBC 2.93 L (4.63-6.08) M/uL Hgb 9.1 L (14.0-18.0) g/dl Hct 28.4 L (40.1-51.0) % RDW Std Deviation 51.3 H (36.4-46.3) fL MPV 9.3 L (9.4-12.4) fL Absolute Nucleated RBC 0.03 H (0-0) K/uL Sodium 146 H (136-145) mmol/L Chloride 117 H (98-107) mmol/L Creatinine 1.55 H (0.6-1.4) mg/dl BUN/Creatinine Ratio 9.7 L (10-20) Calcium 8.0 L (8.5-10.1) mg/dl PG Care Time/CCT Total # of Minutes Spent Total Time Spent with Patient: Total time spent is greater than 50% in coordination of care (as documented) at patient's floor/unit and/or counseling patient: Coding Level of Care Code 64210 Subseq Hosp Care Lvl 2 Diagnoses UTI (urinary tract infection) N39.0 Indwelling urinary catheter type: cystostomy catheter Urinary tract infection type: catheter-associated UTI Elevated troponin R77.8 Hematuria R31.9 Stercoral colitis K52.89 COVID-19 U07.1 Ureteral stent present Z96.0 Hypokalemia E87.6 Chronic suprapubic catheter Z93.59 Anemia D64.9 Chronic diastolic heart failure I50.32 Hypothyroidism E03.9 Hypothyroidism type: acquired Dyslipidemia E78.5 Dementia F03.90 CAD (coronary artery disease) I25.10 Paroxysmal atrial fibrillation I48.0 Aortic stenosis I35.0 Pacemaker Z95.0 Anxiety and depression F41.9; F32.9 (1) UTI (urinary tract infection) Indwelling urinary catheter type: cystostomy catheter Urinary tract infection type: catheter-associated UTI (2) Hypothyroidism Hypothyroidism type: acquired Qualified Code(s): E03.9 - Hypothyroidism, unspecified
[2022-02-10] MEDS: CALCIUM 600MG + VIT D 400 IU TAB PO SCH (17:30)
[2022-02-10] MEDS: LEVOTHYROXINE SODIUM 112 MCG TABLET PO SCH (19:32)
[2022-02-10] MEDS: SIMVASTATIN 80 MG TAB PO SCH (19:32)
[2022-02-10] MEDS: DONEPEZIL HCL 10 MG TAB PO SCH (19:33)
[2022-02-10] MEDS: GABAPENTIN 300 MG CAP PO SCH (19:33)
[2022-02-10] MEDS: guaiFENesin SUGAR FREE 200 MG/10 ML UDC PO PRN (19:36)
[2022-02-10] MEDS: TAMSULOSIN HCL 0.4 MG CAP PO SCH (21:00)
[2022-02-11] MEDS: FAMOTIDINE 20 MG TAB PO SCH (05:01)
[2022-02-11] MEDS: metroNIDAZOLE 500 MG/100 ML BAG IV SCH ×2 (05:01→14:09)
[2022-02-11 08:52] LABS: Hematocrit (blood only) 28.5 % (40.1-51.0); Mean Corpuscular Hemoglobin 31.3 pg (25.0-34.0); Mean Corpuscular Hgb Conc 31.6 g/dL (32.0-36.0); Mean Platelet Volume 9.6 fL (9.4-12.4); Platelet Count 245 K/uL (130-400); RDW Coefficient of Variation 14.7 % (11.5-14.5); RDW Standard Deviation 53.1 fL (36.4-46.3); Red Blood Count 2.88 M/uL (4.63-6.08); White Blood Count 8.06 K/ul (4.8-10.8)
[2022-02-11] MEDS: FOLIC ACID 1 MG TAB PO SCH (09:04)
[2022-02-11] MEDS: ASCORBIC ACID 500 MG TAB PO SCH (09:05)
[2022-02-11] MEDS: FERROUS SULFATE 325 MG TAB PO SCH (09:05)
[2022-02-11] MEDS: amLODIPine BESYLATE 5 MG TAB PO SCH (09:05)
[2022-02-11] MEDS: carvediloL 3.125 MG TAB PO SCH ×2 (09:05→17:54)
[2022-02-11] MEDS: CYANOCOBALAMIN (B-12) 500 MCG TABLET PO SCH (09:06)
[2022-02-11] MEDS: BETHANECHOL CHL 25 MG TAB PO SCH ×4 (09:07→22:04)
[2022-02-11] MEDS: MEMANTINE HCL 10 MG TAB PO SCH ×2 (09:07→22:08)
[2022-02-11] MEDS: buPROPion SR 100 MG TABCR PO SCH ×2 (09:07→22:04)
[2022-02-11] MEDS: ISOSORBIDE MONO EXTENDED REL 30 MG TABCR PO SCH (09:07)
[2022-02-11] MEDS: DOCUSATE SODIUM 100 MG CAP PO SCH ×2 (09:08→22:06)
[2022-02-11 09:18] LABS: BUN Creatinine Ratio 8.7 (10-20); Calcium 7.7 mg/dl (8.5-10.1); Creatinine Clr Calc Pharmacy 37.3 ml/min; Est GFR (African American) 49.2 ml/min; Est GFR (Non-African American) 42.4 ml/min; Potassium 3.7 mmol/L (3.5-5.1)
[2022-02-11] MEDS: cefTRIAXone SODIUM 2,000 MG in DEXTROSE 5% 50 ML IV SCH (09:19)
--- NOTE | 2022-02-11 10:31 | Urology Progress Note ---
Date of Service February 11, 2022 Assessment & Plan (1) Hydronephrosis: (2) Ureteral stent present: (3) UTI (urinary tract infection): (4) Chronic suprapubic catheter: Plan Patient POD #1 status post bilateral ureteral stent exchange and replacement of suprapubic catheter. Afebrile, lab work reviewedcreatinine and WBC stable. Urine culture grew out Citrobacter, blood cultures no growth. He remains on IV ceftriaxone and Flagyl. Continue antibiotics and supportive care per hospital medicine. Okay to discharge from perspective with appropriate PO antibiotics per UC sensitivities when medically stable. Continue monthly SP tube changes at home per previous protocol. Will arrange outpatient follow-up with our service to arrange next ureteral stent exchange. will sign off. Admission and Anticipated Discharge Date Admission Date: February 05, 2022 Subjective Patient seen and examined at bedside this morning. He is awake and resting in bed in no acute distress. No acute issues overnight. Denies flank or abdominal pain. SP tube intact draining cloudy light rafa urine. No fever or chills. No nausea or vomiting. Review of Systems Constitutional: as per Subjective / HPI Gastrointestinal: as per Subjective / HPI Genitourinary: + as per Subjective / HPI Physical Exam Constitutional: no acute distress Gastrointestinal (Abdomen): Inspection/Auscultation: abdomen normal to inspection; abdomen not distended Percussion/Palpation: abdomen soft; abdomen nontender Neurologic: awake Psychiatric: Orientation: alert and oriented to person Genitourinary: SP intact and draining cloudy light rafa urine Results & Data ([facility]) Vital Signs (Past 12 Hours) Vital Signs Temp Pulse Pulse Resp BP Pulse Ox O2 Del Method 02/11/22 07:48 36.6 C 19 90/55 L 97 Room Air 02/11/22 03:02 75 02/11/22 02:58 36.6 C 76 18 98/57 L 96 Room Air 02/10/22 23:00 36.4 C L 82 16 101/64 94 Room Air PG Care Time/CCT Total # of Minutes Spent Total Time Spent with Patient: Total time spent is greater than 50% in coordination of care (as documented) at patient's floor/unit and/or counseling patient: Coding Level of Care Code 24113 Subseq Hosp Care Lvl 2 Diagnoses Hydronephrosis N13.30 Hydronephrosis type: unspecified Ureteral stent present Z96.0 UTI (urinary tract infection) N39.0 Indwelling urinary catheter type: cystostomy catheter Urinary tract infection type: catheter-associated UTI Chronic suprapubic catheter Z93.59 (1) UTI (urinary tract infection) Indwelling urinary catheter type: cystostomy catheter Urinary tract infection type: catheter-associated UTI (2) Hydronephrosis Hydronephrosis type: unspecified Qualified Code(s): N13.30 - Unspecified hydronephrosis
--- NOTE | 2022-02-11 12:57 | Discharge Summary ---
Date of Service February 11, 2022 Admission HPI Per Admitting Provider Alfredo Momin is an 82 year old male with a PMH significant for dementia, COPD, BL ureteral stent placement by Dr. Medrano on 11/05/21, Aortic stenosis, chronic suprapubic catheter with history of multiple Drug resistant UTI's, HFrEF (LVEF of 45-50%. Grade I diastolic dysfunction, paroxysmal atrial fibrillation on Eliquis, severe aortic stenosis as of 09/30/21), hypothyroidism, chronic pain, dyslipidemia, nocturnal hypoxemia who presented to the [facility] ED on 02/05/22 via EMS from home due to concerns for BL upper extremity swelling and possible UTI. In the ED the patient was found to be afebrile, hemodynamically stable, and stable on RA. Labs were remarkable for a WBC of 10.4, hgb of 8.5 (down from 10.0 on 12/20/21), stable platelets at 245, INR of 1.2, stable Cr of 1.56 (baseline per nephrology is 1.7-2.0), potassium of 3.1, mag of 2.0, lactate of 1.8, initial high sensitivity troponin of 24.9, corrected calcium of 8.7, alk phos of 108 otherwise stable liver function, procal of 0.08, UA showing nitrite po sitivity, 3+ leukocyte esterase, > 30 WBCs, and 4+ bacterial, covid 19 positive and influenz/RSV negative. Chest xray was read as "1. Cardiomegaly without overt pulmonary edema. 2. Peripheral predominant interstitial coarsening appears similar to the comparison study which may represent a chronic infectious or inflammatory pneumonitis versus postinflammatory scarring. 3. Small pleural effusions.". The ED staff spoke with Urology due to the patient's complex urologic history, Urology recommended admission for IV antibiotics, he was started on Cefepime and Vancomycin prio to admission. Per chart review, the patient was last admitted to 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 The patient was initially admitted to the ICU as he required pressor support and Bipap. His afib RVR was thought to be due to his severe illness, his home carvedilol was switched to metoprolol for better rate control and BP support. During his admission he underwent cystoscopy with BL retrograde pyelogram with ureteral stent placement, right aspiration and exchange of suprapubic cath with Dr. Medrano. His urine cultures grew coag negative staph resistant to bactrim and oxacillin, he had also grown previous urine cultures with pseudomonas, e.coli, and grisel. During his admission he was treated with Cefepime, flagyl, and fluconazole. For his hematochezia GI was consulted and recommended holding his Eliquis in case of ischemic colitis, his Hgb remained stable on the day of discharge and his Eliquis was restarted prior to discharge. His acute hypoxic respiratory failure resolved with adequate treatment of his sepsis, his Covid 19 status was questionable for possible recent infection a month prior to his admission and was not thought to be the cause of his respiratory failure. The patient was eventually discharge to [facility] on 11/20 due to significant deconditioning from his severe illness and long hospitalization. At the time of the exam the patient was sleeping comfortably in bed, he woke as I entered the room and was in no acute distress. History was difficult to obtain due to the patient's history of dementia. When asked why he was brought to the hospital he stated "I don't know". When asked if he was in any pain he stated "I hurt all over", he was unable to point to any specific area of pain. When asked, he specifically denied chest pain and abdominal pain. He told me that his lungs are "bad" and he is "an old man". He was unable to provide anymore information. Please refer to Dr. Bloom's attestation for any changes to the treatment plan Admission Exam Per Admitting Provider General:In no acute distress, stated age, malnourished, poor hygiene, chronically ill-appearing, non-toxic appearing HEENT:Normocephalic, atraumatic, no scleral icterus, pupils around round, pinpoint,symmetrical, and reactive to light, dry mucus membranes, trachea midline, no thyromegaly Chest/Pulm:No respiratory distress, symmetrical chest expansion, decreased breath sounds in the BL lower lung kang, expiratory wheezing noted in all other lung kang Cardiac:RRR, 4/6 systolic murmur noted Abdomen:Negative for ascites and bruising, normoactive bowel sounds, soft, non-tender to palpation throughout :Patient currently with suprapubic cath in place, pus noted at the insertion site, myles is currently draining bloody urine Musculoskeletal:Symmetrical and without signs of acute trauma, upper and lower extremities with symmetric ROM, muscle atrophy noted throughout Extremities:Radial, dorsalis pedis, and posterior tibial pulses are intact and symmetrical, pitting edema noted in the BL upper extremities, patient has symmetrical radial pulses and no signs of DVT such as unilateral swelling/erythema/pain Skin:Warm, dry, no rashes , lesions, or scars noted Neuro:Alert and oriented to person only, no focal defects, CN II-XII tested and intact, Psych:No acute distress, calm and cooperative during the exam Principal Diagnosis hematuria UTI Elevated troponin Covid 19 Discharge Exam Neck trachea midline, no thyromegaly Respiratory able to speak in complete sentences; no respiratory distress, no labored breathing, does not use accessory muscles and no cough Cardiovascular RRR, no murmur, no edema Extremities: no calf tenderness and no edema Gastrointestinal (Abdomen) normal bowel sounds, soft, nontender, no hepatosplenomegaly (suprapubic catheter in place) Neurologic moves all extremities and awake Psychiatric Orientation: alert, oriented to person and cooperative Discharge Data Allergies Allergy/AdvReac Type Severity Reaction Status Date / Time captopril Allergy Severe Anaphylaxis Verified 02/05/22 17:27 Iodinated Contrast Media Allergy Severe Anaphylaxis Verified 02/05/22 17:27 morphine Allergy Severe Anaphylaxis Verified 02/05/22 21:27 oxaprozin Allergy Severe Anaphylaxis Verified 02/05/22 17:27 torsemide Allergy Severe Anaphylaxis Verified 02/05/22 17:27 hydrocodone Allergy Mild Rash Verified 02/05/22 17:27 Consultations 02/05/22 17:43 ED Decision to Admit Stat 02/06/22 08:30 Consult Urology Routine Procedures Performed Operation Date: 02/10/22 07:30 Actual Procedures p Cystoscopy, Bilateral Stent Exchange, Replacement of Suprapubic Catheter(Bilateral) - William Medrano, Ordered Studies 02/05/22 18:33 CT abd pelvis wo con Urgent 02/10/22 07:30 FL retrograde includes kub Routine Hospital Course (1) UTI (urinary tract infection): Complicated catheter associated UTI -catheter associated uti, ureteral stents , air in renal collecting system on CT cannot tell if infection or from suprapubic cath urology was consulted S/P cystoscopy with retrograde pyelogram, bilateral stent exchange and mcallister prapubic catheter exchange today -Tolerating heart healthy minced moist fluid restricted diet -Review of previous urine cultures shows pseudomonas, e coli, grisel, and coag negative staph Cultures have grown out Citrobacter farmeri and the second gram-negative organism also grew out Citrobacter farmeri -Changed antibiotic to Ceftriaxone (day #6 antibiotics) (2) Elevated troponin: -Patient's initial troponin elevated at 24.9 and then went down to 22, patient denies chest pain Has a history of underlying CAD with bare-metal stents to LCx in 1997 -ECG is showing some T-wave inversions in the lateral leads but is without acute ST segment changes, elevated troponin secondary to demand ischemia (3) Hematuria: -S/P exchange bilateral stents 02/10/22 and also suprapubic catheter exchange -No further gross hematuria in catheter bag (4) Stercoral colitis: Noted on CT abdomen/pelvis on admission Was treated with Flaguyl Discussed good bowel regimen with patient and family Moving bowels normally currently (5) COVID-19: Positive on screen on admission Currently stable on RA and without significant findings on his CXR Symptomatic treatment for now with DuoNebs, prn robitussin, and prn O2 Will place in covid isolation No indication for Remdesivir as unclear when infection started No indication for dexamethasone as he is not hypoxic Saturating well on RA (93%) (6) Ureteral stent present: Patient with hx of BL hydronephrosis with BL ureteral stent placement with Dr. Medrano on his last admission bilateral stent exchange and suprapubic catherter exchanged 02/10/22 (7) Hypokalemia: replete and monitor (8) Chronic suprapubic catheter: -See UTI Suprapubic catheter exchanged 02/10/22 (9) Anemia: Hemoglobin low on admission at 7.9 but has improved normocytic Some hematuria and blood loss -Continue ferrous sulfate B12 and folate normal, transferrin saturation normal TSH recently normal (10) Chronic diastolic heart failure: -LVEF of 45-50% with grade I diastolic dysfunction -continues to be euvolemic -Continue carvedilol and Imdur -Amlodipine held today for BP 90/55 (11) Hypothyroidism: -Continue levothyroxine Recent TSH normal in 09/2021 (12) Dyslipidemia: -Continue statin (13) Dementia: Only oriented to self Continue Namenda and aricept (14) CAD (coronary artery disease): Not currently on aspirin due to being on Eliquis With history of bare-metal stent to LCx in 1997 Continue statin therapy, beta-christina, isosorbide Follows with [facility] Restarted Eliquis 2.5mg BID today (15) Paroxysmal atrial fibrillation: In sinus rhythm on admission Eliquis restarted today -Continue Carvedilol (16) Aortic stenosis: Known to be severe on echocardiogram from 09/2021 with mild AI, mild to moderate MR, EF mildly reduced at 45-50% Unclear if has 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 twice daily Plan DVT prophylaxis-Eliquis restarted today Disposition-cDischarge tohome today with patient's and 2 daughters. Long discussion with patient's Anabelle via the phone regarding our recommendation for SNF. She is well aware of this and states she is NOT willing to have her placed anywhere but home. She tells me that they have a Jose lift at home and also a bedside commode. They also have a hospital bed as well. She is aware of the risk of patient falling while at home and reassures that their 2 daughters are always at home and help in the 01/09 care for their father. Home Health Attestation I certify that this patient is under my care and that I, or a physicians quality assurance assistant working with me, had a face to-face encounter that meets the home health [id number] encounter requirements with this patient. The encounter with the patient was in whole, or in part, for the following medical condition, which is the primary reason for home health care (list medical condition): UTI I certify that, based on my findings, the following services are medically necessary home health services: My clinical findings support the need for the above services because: PT Assessment for Endurance / Balance / Strength PT Eval for Safety and Mobility PT Eval for Safety, Gait Training, Assistive Devices PT Gait and Balance Training, Strengthening and Safety Skilled Nsg Assessment Further, I certify that my clinical findings support that this patient is homebound (i.e. absences from home require considerable and taxing effort and are for medical reasons or mandaen services or infrequently or of short duration when for other reasons) because: Transportation Assistance/Unable to Leave Home Unassisted Certification for Home Health Services: Based on the above findings, I certify that this patient is confined to the home and needs intermittent care home care, physical therapy and/or speech therapy or continues to need occupational therapy. The patient is under my care, and I have initiated the establishment of the plan of care. This patient will be followed by a physician who will periodically review the plan of care. Discharge Plan Discharge Items Reason For Visit: UTI AND EXTREMITY SWELLING Condition on Discharge: Good Follow-up/Referrals: Celian Saunders DO [Primary Care Provider] - Medications and DC Order Prescriptions: No Action folic acid 1 mg tablet 1 mg PO QAM Qty: 90 1RF albuterol sulfate 2.5 mg /3 mL (0.083 %) solution for nebulization 2.5 mg inhalation QID PRN (Reason: shortness of breath or wheezing) Qty: 75 5RF isosorbide mononitrate 30 mg tablet extended release 24 hr 30 mg PO QAM Qty: 90 1RF gabapentin 300 mg capsule 300 mg PO HS Qty: 90 3RF ipratropium-albuterol 0.5 mg-3 mg(2.5 mg base)/3 mL solution for nebulization 3 ml inhalation Q6H PRN (Reason: wheezing) Qty: 90 0RF Eliquis 2.5 mg tablet 2.5 mg PO BID Qty: 180 1RF tramadol 50 mg tablet 50 mg PO TID PRN (Reason: Pain) Qty: 30 0RF memantine [Namenda] 10 mg tablet 10 mg PO BID Qty: 180 3RF donepezil 10 mg tablet 10 mg PO HS Qty: 90 3RF benzonatate 100 mg capsule 100 mg PO TID PRN (Reason: cough) Qty: 30 0RF acetaminophen 325 mg tablet 650 mg PO Q6H PRN (Reason: pain) Qty: 30 0RF amlodipine [Norvasc] 5 mg tablet 5 mg PO QAM Qty: 90 1RF Rx Instructions: IF B/P HIGH STOP, IF B/P LOW GIVE. carvedilol 3.125 mg tablet 3.125 mg PO BIDWMEAL Qty: 180 1RF levothyroxine [Synthroid] 112 mcg tablet 112 mcg PO HS Qty: 90 1RF famotidine [Pepcid] 40 mg tablet 40 mg PO DAILYBB Qty: 90 1RF bethanechol chloride 50 mg tablet 50 mg PO QID Qty: 360 1RF bupropion HCl 100 mg tablet sustained-release 12 hr 100 mg PO BID Qty: 60 5RF ferrous sulfate 325 mg (65 mg iron) tablet,delayed release (DR/EC) 325 mg PO QAM polyethylene glycol 3350 [Miralax] 17 gram powder in packet 17 g PO BID PRN (Reason: Constipation) cyanocobalamin (vitamin B-12) 1,000 mcg Tablet 1,000 mcg PO QAM ascorbic acid (vitamin C) [Vitamin C] 500 mg Tablet 500 mg PO QAM docusate sodium [Stool Softener] 100 mg Capsule 100 mg PO BID PRN (Reason: Constipation) vitamin E 400 unit Capsule 400 unit PO HS albuterol sulfate [Ventolin HFA] 90 mcg/actuation Hfa Aerosol Inhaler 2 puff inhalation Q6H PRN (Reason: cough/wheeze/shortness of breath) Qty: 1 0RF nystatin 100,000 unit/gram cream 1 applic topical UD PRN (Reason: Skin Irritation) tamsulosin 0.4 mg capsule 0.4 mg PO HS Qty: 30 0RF calcium carbonate-vitamin D3 500 mg-5 mcg (200 unit) Tablet 1 tab PO DAILY simvastatin 80 mg tablet 80 mg PO HS Admission Data Admit Date/Time: 02/05/22 18:15 Attending Provider: Fifi Prabhakar Admit Provider: Ashvin Bloom Primary Care Provider: Celina Saunders Other Providers: Ashvin Bloom ; William Medrano Coding Diagnoses UTI (urinary tract infection) N39.0 Indwelling urinary catheter type: cystostomy catheter Urinary tract infection type: catheter-associated UTI Elevated troponin R77.8 Hematuria R31.9 Stercoral colitis K52.89 COVID-19 U07.1 Ureteral stent present Z96.0 Hypokalemia E87.6 Chronic suprapubic catheter Z93.59 Anemia D64.9 Chronic diastolic heart failure I50.32 Hypothyroidism E03.9 Hypothyroidism type: acquired Dyslipidemia E78.5 Dementia F03.90 CAD (coronary artery disease) I25.10 Paroxysmal atrial fibrillation I48.0 Aortic stenosis I35.0 Pacemaker Z95.0 Anxiety and depression F41.9; F32.9
[2022-02-11] MEDS ORDERED: SODIUM CHLORIDE 0.9% 1000ML 500 ML IV ONE (13:16)
--- NOTE | 2022-02-11 13:48 | Hospitalist Progress Note ---
Date of Service February 11, 2022 Assessment & Plan (1) UTI (urinary tract infection): Plan: Complicated catheter associated UTI -catheter associated uti, ureteral stents , air in renal collecting system on CT cannot tell if infection or from suprapubic cath urology following S/P cystoscopy with retrograde pyelogram, bilateral stent exchange and suprapubic catheter exchange 02/10/22 - Resumed previous heart healthy minced moist fluid restricted diet -Review of previous urine cultures shows pseudomonas, e coli, grisel, and coag negative staph Cultures have grown out Citrobacter farmeri and the second gram-negative organism also grew out Citrobacter farmeri -Changed antibiotic to Ceftriaxone (day #6 antibiotics) (2) Elevated troponin: Plan: -Patient's initial troponin elevated at 24.9 and then went down to 22, patient denies chest pain Has a history of underlying CAD with bare-metal stents to LCx in 1997 -ECG is showing some T-wave inversions in the lateral leads but is without acute ST segment changes, elevated troponin secondary to demand ischemia Patient has not had any further chest pain or dyspnea or SOB (3) Hematuria: Plan: -Patient's Hgb is down but stable and no need for transfusion at this time -Has remained relatively stable and will continue to monitor -No other signs of bleeding at this time and patient has been hemodynamically stable -Eliquis restarted today -No further gross hematuria in catheter bag (4) Stercoral colitis: Plan: Patient is moving his bowels Patient has no abdominal pain Will stop the Flagyl (5) COVID-19: Plan: Positive on screen on admission Currently stable on RA and without significant findings on his CXR Symptomatic treatment for now with DuoNebs, prn robitussin, and prn O2 Will place in covid isolation No indication for Remdesivir as unclear when infection started No indication for dexamethasone as he is not hypoxic Saturating well on RA (95%) (6) Ureteral stent present: Plan: Patient with hx of BL hydronephrosis with BL ureteral stent placement with Dr. Medrano on his last admission bilateral stent exchange and suprapubic catheter exchanged 02/10/22 (7) Hypokalemia: Plan: Repleted and continue to monitor (8) Chronic suprapubic catheter: Plan: Exchanged 02/10/22 (9) Anemia: Plan: Hemoglobin low on admission at 7.9 but has increased somehow to 9.6, normocytic Some hematuria and blood loss Gross hematuria resolved -Continue ferrous sulfate B12 and folate normal, transferrin saturation normal at 42% Follow CBC and continue to monitor for signs of active bleeding (10) Chronic diastolic heart failure: Plan: -LVEF of 45-50% with grade I diastolic dysfunction -continues to be euvolemic -Continue carvedilol and Imdur Amlodipine held today for BP 90/55 Currently BP 99/57 (11) Hypothyroidism: Plan: Continue Levothyroxine recent TSH was normal 09/2021 (12) Dyslipidemia: Plan: Continue Simvastatin (13) Dementia: Plan: Only oriented to self Continue Namenda and aricept (14) CAD (coronary artery disease): Plan: Not currently on aspirin due to being on Eliquis With history of bare-metal stent to LCx in 1997 Continue statin therapy, beta-christina, isosorbide Follows with [facility] (15) Paroxysmal atrial fibrillation: Plan: In sinus rhythm on admission Eliquis restarted today -Continue Carvedilol (16) Aortic stenosis: Plan: Known to be severe on echocardiogram from 09/2021 with mild AI, mild to moderate MR, EF mildly reduced at 45-50% Unclear if 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 twice daily (19) Facial droop: Plan: Unaware if chronic or acute Has some slurred speech and family states at times is hard to understand, unaware if acute CT head without contrast (patient has anaphylaxis reaction to contrast) No acute abnormality Called and discussed with and daughters Again discussed patients health status and level of care that he is currently needing. Family continues to be aware of his health and condition and are NOT interested in any placement of patient. They states they have a hospital bed, altagracia lift, bedside commode and that his 2 daughters are at home and able to provide 24/7 care for patient. Will keep patient overnight with delirium precautions on place. Discussed with case management and with patient's family if her remains stable, hope to discharge him home tomorrow Discussed patient and findings with family pre and post CT scan Admission and Anticipated Discharge Date Admission Date: February 05, 2022 Supervising Physician Co-Signing Physician Notes PA Supervision Note: I did not personally see or examine the patient today, but I verified all delaney points of KAMI Moreau's assessment and plan with the following exceptions/additions: Patient seen today for possible discharge. Noted to have some dysarthria. Called patient family who reported that in general he is understandable. Took phone into room and had patient talk with family over the phone. Family reported that his speech seemed a bit more slurred than typical. It is notable that his speech on our conversation waxed and waned in amount of slurring. Has had this speech since picked up by midlevel provider, who received in report that his speech at times was difficult to understand but would then have clarity of speech, which was appreciated today. Given family reported some change did order CT Head which did not show any changes suggestive of stroke. Given he has had this speech for at least since admission, which waxes and wanes in clarity, and no CVA on imaging, believe that this speech was due to fatigue, dementia/hospital delirium, with some element of speech issue at baseline that was difficult to qualify with family. Patient's aware that no stroke, and wants to still bring patient home despite his debility and despite recommendations from PT regarding rehab. Do think it is reasonable for patient to go home tomorrow after monitoring of neuro function overnight. Also, held amlodipine for hypotension. Otherwise, see above assessment and plan. Subjective Patient is awake in bed. He was alert to person, but was hard to understand at times. His was able to speak with him on the phone and she felt his speech was slightly slurred and harder to understand than normally. Patient has no complaints today. Per nursing he is moving his bowels. Review of Systems Review of Systems: ROS is limited due to patient's dementia Constitutional: no fever and no anorexia Gastrointestinal: no abdominal pain, no nausea and no vomiting Neurologic: Family noticed some slurring of speech Per family has some chronic slurred speech but noticed today at times was hard to understand states typically she can understand what he is saying possible mild left facial droop, unknown if chronic Physical Exam Constitutional: He is awake and alert to person Neck: trachea midline, no thyromegaly Respiratory: no respiratory distress, no labored breathing and no cough Cardiovascular: RRR, no murmur, no edema Gastrointestinal (Abdomen): normal bowel sounds, soft, nontender, no hepatosplenomegaly Neurologic: moves all extremities and awake; no focal motor deficits Speech / Cognition: + abnormal speech bed ridden Possibly mild left facial droop, ?chronic At times hard to understand speech Results & Data Results & Data ([facility]) Vital Signs (Past 12 Hours) Vital Signs Temp Pulse Pulse Resp BP Pulse Ox O2 Del Method 02/11/22 08:00 72 02/11/22 11:28 36.5 C 83 20 99/57 L 95 Room Air 02/11/22 07:48 36.6 C 19 90/55 L 97 Room Air 02/11/22 03:02 75 02/11/22 02:58 36.6 C 76 18 98/57 L 96 Room Air Laboratory Results Abnormal lab results 02/11/22 02/11/22 Range/Units 08:15 08:15 RBC 2.88 L (4.63-6.08) M/uL Hgb 9.0 L (14.0-18.0) g/dl Hct 28.5 L (40.1-51.0) % MCHC 31.6 L (32.0-36.0) g/dL RDW Std Deviation 53.1 H (36.4-46.3) fL RDW Coeff of Curtis 14.7 H (11.5-14.5) % Chloride 116 H (98-107) mmol/L Creatinine 1.50 H (0.6-1.4) mg/dl BUN/Creatinine Ratio 8.7 L (10-20) Glucose 125 H (70-99(Fasting)) mg/dl Calcium 7.7 L (8.5-10.1) mg/dl Diagnostic Findings Head CT 02/11/22 13:14 CT head/brain wo con CLINICAL HISTORY: dysarthria Technique: Contiguous axial CT images of the head were acquired from the base of the skull to the vertex without intravenous contrast administration. Images were viewed in brain, subdural and bone windows. Automated dose lowering techniques and/or adjustment according to patient size were utilized for this exam. Comparison: Comparison is made to CT head 11/12/2021 Findings: Areas of decreased attenuation are present in the periventricular and subcortical white matter bilaterally consistent with small vessel ischemic disease. Generalized cerebral atrophy with commensurate enlargement of the ventricles, sulci, and cisterns is also present. There is no acute intracranial hemorrhage or evidence of acute territorial infarction. No shift of the midline structures, mass effect, or extra-axial abnormalities are shown. Atherosclerotic calcifications are present in the intracranial segments of the internal carotid arteries. Right mastoid air cells are opacified. The orbits appear normal. There are no acute fractures of the calvaria or scalp swelling. Impression: Right mastoid effusion is seen which may be seen in mastoiditis. No evidence of acute abnormality. ACT 112: Negative or not required by law. Electronically signed by: Negro Etienne M.D. 02/11/2022 2:39 PM PG Care Time/CCT Total # of Minutes Spent Total Time Spent with Patient: Total time spent is greater than 50% in coordination of care (as documented) at patient's floor/unit and/or counseling patient: Coding Level of Care Code 36999 SUB INP/OBS CARE 3/50MIN Diagnoses UTI (urinary tract infection) N39.0 Indwelling urinary catheter type: cystostomy catheter Urinary tract infection type: catheter-associated UTI Elevated troponin R77.8 Hematuria R31.9 Stercoral colitis K52.89 COVID-19 U07.1 Ureteral stent present Z96.0 Hypokalemia E87.6 Chronic suprapubic catheter Z93.59 Anemia D64.9 Chronic diastolic heart failure I50.32 Hypothyroidism E03.9 Hypothyroidism type: acquired Dyslipidemia E78.5 Dementia F03.90 CAD (coronary artery disease) I25.10 Paroxysmal atrial fibrillation I48.0 Aortic stenosis I35.0 Pacemaker Z95.0 Anxiety and depression F41.9; F32.9 Facial droop R29.810 (1) UTI (urinary tract infection) Indwelling urinary catheter type: cystostomy catheter Urinary tract infection type: catheter-associated UTI (2) Hypothyroidism Hypothyroidism type: acquired Qualified Code(s): E03.9 - Hypothyroidism, unspecified
--- NOTE | 2022-02-11 14:40 | CT Scan Report ---
CT head/brain wo con CLINICAL HISTORY: dysarthria Technique: Contiguous axial CT images of the head were acquired from the base of the skull to the ernestina sabra without intravenous contrast administration. Images were viewed in brain, subdural and [facility]. Automated dose lowering techniques and/or adjustment according to patient size were utilized for this exam. Comparison: Comparison is made to CT head 11/12/2021 Findings: Areas of decreased attenuation are present in the periventricular and subcortical white matter bilate rally consistent with small vessel ischemic disease. Generalized cerebral atrophy with commensurate e nlargement of the ventricles, sulci, and cisterns is also present. There is no acute intracranial hem orrhage or evidence of acute territorial infarction. No shift of the midline structures, mass effect, or extra-axial abnormalities are shown. Atherosclerotic calcifications are present in the intracran ial segments of the internal carotid arteries. Right mastoid air cells are opacified. The orbits appear normal. There are no acute fractures of the calvaria or scalp swelling. Impression: Right mastoid effusion is seen which may be seen in mastoiditis. No evidence of acute abnormality. ACT 112: Negative or not required by law. Electronically signed by: Negro Etienne M.D. 02/11/2022 2:39 PM
[2022-02-11] MEDS: CALCIUM 600MG + VIT D 400 IU TAB PO SCH (17:55)
[2022-02-11] MEDS: APIXABAN 2.5 MG TAB PO SCH (22:03)
[2022-02-11] MEDS: DONEPEZIL HCL 10 MG TAB PO SCH (22:06)
[2022-02-11] MEDS: GABAPENTIN 300 MG CAP PO SCH (22:07)
[2022-02-11] MEDS: LEVOTHYROXINE SODIUM 112 MCG TABLET PO SCH (22:08)
[2022-02-11] MEDS: TAMSULOSIN HCL 0.4 MG CAP PO SCH (22:09)
[2022-02-11] MEDS: SIMVASTATIN 80 MG TAB PO SCH (22:09)
[2022-02-12] MEDS: FAMOTIDINE 20 MG TAB PO SCH (05:43)
[2022-02-12] MEDS: carvediloL 3.125 MG TAB PO SCH (08:00)
[2022-02-12] MEDS: BETHANECHOL CHL 25 MG TAB PO SCH ×2 (09:12→12:37)
[2022-02-12] MEDS: APIXABAN 2.5 MG TAB PO SCH (09:12)
[2022-02-12] MEDS: ASCORBIC ACID 500 MG TAB PO SCH (09:12)
[2022-02-12] MEDS: buPROPion SR 100 MG TABCR PO SCH (09:13)
[2022-02-12] MEDS: DOCUSATE SODIUM 100 MG CAP PO SCH (09:13)
[2022-02-12] MEDS: FERROUS SULFATE 325 MG TAB PO SCH (09:13)
[2022-02-12] MEDS: CYANOCOBALAMIN (B-12) 500 MCG TABLET PO SCH (09:13)
[2022-02-12] MEDS: ISOSORBIDE MONO EXTENDED REL 30 MG TABCR PO SCH (09:13)
[2022-02-12] MEDS: FOLIC ACID 1 MG TAB PO SCH (09:13)
[2022-02-12] MEDS: cefTRIAXone SODIUM 2,000 MG in DEXTROSE 5% 50 ML IV SCH (09:14)
[2022-02-12] MEDS: SENNA 8.6 MG TAB PO SCH (09:14)
[2022-02-12] MEDS: MEMANTINE HCL 10 MG TAB PO SCH (09:14)
[2022-02-12 09:48] LABS: BUN Creatinine Ratio 7.4 (10-20); Calcium 8.2 mg/dl (8.5-10.1); Creatinine Clr Calc Pharmacy 37.6 ml/min; Est GFR (African American) 49.6 ml/min; Est GFR (Non-African American) 42.8 ml/min; Potassium 2.8 mmol/L (3.5-5.1)
[2022-02-12] MEDS ORDERED: POTASSIUM CHLORIDE CRTAB 20 MEQ TABCR PO STA (10:11)
[2022-02-12] MEDS: POTASSIUM CHLORIDE / WTR 10 MEQ/100 ML PLCT IV SCH ×4 (10:25→13:45)
[2022-02-12 15:04] LABS: BUN Creatinine Ratio 7.5 (10-20); Calcium 7.5 mg/dl (8.5-10.1); Creatinine Clr Calc Pharmacy 38.1 ml/min; Est GFR (African American) 50.4 ml/min; Est GFR (Non-African American) 43.5 ml/min; Potassium 4.3 mmol/L (3.5-5.1)
--- NOTE | 2022-02-12 15:31 | Discharge Summary ---
Date of Service February 12, 2022 Admission HPI Per Admitting Provider valencia Momin is an 82 year old male with a PMH significant for dementia, COPD, BL ureteral stent placement by Dr. Medrano on 11/05/21, Aortic stenosis, chronic suprapubic catheter with history of multiple Drug resistant UTI's, HFrEF (LVEF of 45-50%. Grade I diastolic dysfunction, paroxysmal atrial fibrillation on Eliquis, severe aortic stenosis as of 09/30/21), hypothyroidism, chronic pain, dyslipidemia, nocturnal hypoxemia who presented to the [facility] ED on 02/05/22 via EMS from home due to concerns for BL upper extremity swelling and possible UTI. In the ED the patient was found to be afebrile, hemodynamically stable, and stable on RA. Labs were remarkable for a WBC of 10.4, hgb of 8.5 (down from 10.0 on 12/20/21), stable platelets at 245, INR of 1.2, stable Cr of 1.56 (baseline per nephrology is 1.7-2.0), potassium of 3.1, mag of 2.0, lactate of 1.8, initial high sensitivity troponin of 24.9, corrected calcium of 8.7, alk phos of 108 otherwise stable liver function, procal of 0.08, UA showing nitrite positivity, 3+ leukocyte esterase, > 30 WBCs, and 4+ bacterial, covid 19 positive and influenz/RSV negative. Chest xray was read as "1. Cardiomegaly without overt pulmonary edema. 2. Peripheral predominant interstitial coarsening appears similar to the comparison study which may represent a chronic infectious or inflammatory pneumonitis versus postinflammatory scarring. 3. Small pleural effusions.". The ED staff spoke with Urology due to the patient's complex urologic history, Urology recommended admission for IV antibiotics, he was started on Cefepime and Vancomycin prio to admission. 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 The patient was initially admitted to the ICU as he required pressor support and Bipap. His afib RVR was thought to be due to his severe illness, his home carvedilol was switched to metoprolol for better rate control and BP support. During his admission he underwent cystoscopy with BL retrograde pyelogram with ureteral stent placement, right aspiration and exchange of suprapubic cath with Dr. Medrano. His urine cultures grew coag negative staph resistant to bactrim and oxacillin, he had also grown previous urine cultures with pseudomonas, e.coli, and grisel. During his admission he was treated with Cefepime, flagyl, and fluconazole. For his hematochezia GI was consulted and recommended holding his Eliquis in case of ischemic colitis, his Hgb remained stable on the day of discharge and his Eliquis was restarted prior to discharge. His acute hypoxic respiratory failure resolved with adequate treatment of his sepsis, his Covid 19 status was questionable for possible recent infection a month prior to his admission and was not thought to be the cause of his respiratory failure. The patient was eventually discharge to [facility] on 11/20 due to significant deconditioning from his severe illness and long hospitalization. At the time of the exam the patient was sleeping comfortably in bed, he woke as I entered the room and was in no acute distress. History was difficult to obtain due to the patient's history of dementia. When asked why he was brought to the hospital he stated "I don't know". When asked if he was in any pain he stated "I hurt all over", he was unable to point to any specific area of pain. When asked, he specifically denied chest pain and abdominal pain. He told me that his lungs are "bad" and he is "an old man". He was unable to provide anymore information. Admission Exam Per Admitting Provider Physical Exam: General:In no acute distress, stated age, malnourished, poor hygiene, chronically ill-appearing, non-toxic appearing HEENT:Normocephalic, atraumatic, no scleral icterus, pupils around round, pinpoint,symmetrical, and reactive to light, dry mucus membranes, trachea midline, no thyromegaly Chest/Pulm:No respiratory distress, symmetrical chest expansion, decreased breath sounds in the BL lower lung kang, expiratory wheezing noted in all other lung kang Cardiac:RRR, 4/6 systolic murmur noted Abdomen:Negative for ascites and bruising, normoactive bowel sounds, soft, non-tender to palpation throughout :Patient currently with suprapubic cath in place, pus noted at the insertion site, myles is currently draining bloody urine Musculoskeletal:Symmetrical and without signs of acute trauma, upper and lower extremities with symmetric ROM, muscle atrophy noted throughout Extremities:Radial, dorsalis pedis, and posterior tibial pulses are intact and symmetrical, pitting edema noted in the BL upper extremities, patient has symmetrical radial pulses and no signs of DVT such as unilateral swelling/erythema/pain Skin:Warm, dry, no rashes , lesions, or scars noted Neuro:Alert and oriented to person only, no focal defects, CN II-XII tested and intact, Psych:No acute distress, calm and cooperative during the exam Principal Diagnosis Hematuria Catheter associated UTI Covid Discharge Exam Constitutional + ill appearing Awake in bed in NAD Neck trachea midline, no thyromegaly Respiratory no respiratory distress, no labored breathing and no cough Cardiovascular RRR, no murmur, no edema Gastrointestinal (Abdomen) normal bowel sounds, soft, nontender, no hepatosplenomegaly Skin ecchymoses bilateral upper arms secondary to IV sites and blood draws Intact and symmetric pulses Neurologic moves all extremities and awake; no focal motor deficits Speech / Cognition: + abnormal speech (Seems to talk more from right side of mouth ) Psychiatric Orientation: alert, oriented to person and cooperative Genitourinary Suprapubic catheter Discharge Data Allergies Allergy/AdvReac Type Severity Reaction Status Date / Time captopril Allergy Severe Anaphylaxis Verified 02/05/22 17:27 Iodinated Contrast Media Allergy Severe Anaphylaxis Verified 02/05/22 17:27 morphine Allergy Severe Anaphylaxis Verified 02/05/22 21:27 oxaprozin Allergy Severe Anaphylaxis Verified 02/05/22 17:27 torsemide Allergy Severe Anaphylaxis Verified 02/05/22 17:27 hydrocodone Allergy Mild Rash Verified 02/05/22 17:27 Consultations 02/05/22 17:43 ED Decision to Admit Stat 02/06/22 08:30 Consult Urology Routine Procedures Performed Operation Date: 02/10/22 07:30 Actual Procedures p Cystoscopy, Bilateral Stent Exchange, Replacement of Suprapubic Catheter(Bilateral) - William Medrano, DO Ordered Studies 02/05/22 18:33 CT abd pelvis wo con Urgent 02/10/22 07:30 FL retrograde includes kub Routine 02/11/22 13:14 CT head/brain wo con Stat Hospital Course (1) UTI (urinary tract infection): Complicated catheter associated UTI -catheter associated uti, ureteral stents , air in renal collecting system on CT could not tell if infection or from suprapubic cath urology following S/P cystoscopy with retrograde pyelogram, bilateral stent exchange and suprapubic catheter exchange 02/10/22 - Resumed previous heart healthy minced moist fluid restricted diet -Review of previous urine cultures shows pseudomonas, e coli, grisel, and coag negative staph Cultures this admission have grown out Citrobacter farmeri and the second gram- negative organism also grew out Citrobacter farmeri -Changed antibiotic to Ceftriaxone (day #7 antibiotics), with transition to cefdinir on discharge. (2) Elevated troponin: -Patient's initial troponin elevated at 24.9 and then went down to 22, patient denies chest pain Has a history of underlying CAD with bare-metal stents to LCx in 1997 -ECG is showing some T-wave inversions in the lateral leads but is without acute ST segment changes, elevated troponin secondary to demand ischemia Patient has not had any further chest pain or dyspnea or SOB (3) Hematuria: -Patient's Hgb is down but stable and no need for transfusion at this time -Has remained relatively stable and will continue to monitor -No other signs of bleeding at this time and patient has been hemodynamically stable -Eliquis restarted 02/11/22 -No further gross hematuria in catheter bag (4) Stercoral colitis: Patient is moving his bowels Patient has no abdominal pain Stopped the Flagyl 02/11/22 (5) COVID-19: Positive on screen on admission Currently stable on RA and without significant findings on his CXR Symptomatic treatment for now with DuoNebs, prn robitussin, and prn O2 Patient was in Covid isolation No indication for Remdesivir as unclear when infection started No indication for dexamethasone as he is not hypoxic Saturating well on RA (96%) (6) Ureteral stent present: Patient with hx of BL hydronephrosis with BL ureteral stent placement with Dr. Medrano on his last admission bilateral stent exchange and suprapubic catheter exchanged 02/10/22 (7) Hypokalemia: Repleted and improved to 4.3, follow up BMP ordered (8) Chronic suprapubic catheter: Exchanged 02/10/22 Continue to follow with urology (9) Anemia: Hemoglobin low on admission at 7.9 but increased and stable in the 9 range Some hematuria and blood loss Gross hematuria resolved -Continue ferrous sulfate B12 and folate normal, transferrin saturation normal at 42% Follow CBC and continue to monitor for signs of active bleeding (10) Chronic diastolic heart failure: -LVEF of 45-50% with grade I diastolic dysfunction -continues to be euvolemic -Continue carvedilol and Imdur Amlodipine was held for low BPs, will continue to hold on discharge and defer to PCP regarding restarting (11) Hypothyroidism: Continue Levothyroxine recent TSH was normal 09/2021 (12) Dyslipidemia: Continue Simvastatin (13) Dementia: Only oriented to self Continue Namenda and aricept (14) CAD (coronary artery disease): Not currently on aspirin due to being on Eliquis With history of bare-metal stent to LCx in 1997 Continue statin therapy, beta-christina, isosorbide Follows with [place] [facility] (15) Paroxysmal atrial fibrillation: In sinus rhythm on admission and currently Eliquis restarted 02/11/22 -Continue Carvedilol (16) Aortic stenosis: Known to be severe on echocardiogram from 09/2021 with mild AI, mild to moderate MR, EF mildly reduced at 45-50% Unclear if has followed up with his primary hot knife cutter since last office visit scanned into the chart from 04/2021 Follow-up with outpatient cardiology Avoid extremes of volume status and blood pressure (17) Pacemaker: For history of Sick Sinus Syndrome (18) Anxiety and depression: Continue home bupropion 100 Mg p.o. twice daily (19) Facial droop: Unaware if chronic or acute Has some slurred speech and family states at times is hard to understand CT head without contrast (patient has anaphylaxis reaction to contrast) No acute abnormality Discussed patient and findings with family pre and post CT scan Called and discussed with and daughters Again discussed patients health status and level of care that he is currently needing. Family continues to be aware of his health and condition and are NOT interested in any placement of patient. They states they have a hospital bed, jose lift, bedside commode and that his 2 daughters are at home and able to provide 24/7 care for patient. Kept patient overnight last night with delirium precautions. He is doing well today and will discharge to home with H/H services. Home Health Attestation I certify that this patient is under my care and that I, or a physicians assistant restaurant general manager working with me, had a face to-face encounter that meets the home health [id number] encounter requirements with this patient. The encounter with the patient was in whole, or in part, for the following medical condition, which is the primary reason for home health care (list medical condition): UTI Suprapubic catheter s/p bilateral stent exchange and suprapubic catheter exchange 02/10/22 Hypokalemia (will need repeat BMP in a few days) I certify that, based on my findings, the following services are medically necessary home health services: My clinical findings support the need for the above services because: PT Assessment for Endurance / Balance / Strength PT Eval for Safety and Mobility PT Eval for Safety, Gait Training, Assistive Devices PT Gait and Balance Training, Strengthening and Safety Skilled Nsg Assessment Further, I certify that my clinical findings support that this patient is homebound (i.e. absences from home require considerable and taxing effort and are for medical reasons or mandaeism services or infrequently or of short duration when for other reasons) because: Transportation Assistance/Unable to Leave Home Unassisted Certification for Home Health Services: Based on the above findings, I certify that this patient is confined to the home and needs intermittent snf care, physical therapy and/or speech therapy or continues to need occupational therapy. The patient is under my care, and I have initiated the establishment of the plan of care. This patient will be followed by a physician who will periodically review the plan of care. Total Time Total Time Spent Total Time Spent (In Minutes): 50 minutes Discharge Plan Discharge Items Patient Disposition: Home - Home Health Services Reason For Visit: UTI AND EXTREMITY SWELLING Discharge Diagnosis: Complicated catheter associated UTI Dementia Condition on Discharge: Fair Activity: As commented below Activity Comment: bed ridden, hospital bed, Jose lift bedside commode Lifting: None Weightbearing Comment: bed ridden Non-emergency contact: Primary Care Provider Call non-emergency contact if: you have any medication questions and your temperature is above 101.5 Follow-up/Referrals: Celina Saunders DO [Primary Care Provider] - 02/25/22 8:20 am (Appointment with LIBAN Waters) Diet: Heart Healthy Diet Comment: minced and moist Addtl Attending Provider Instructions: You were admitted with swelling in your upper arms and gross blood in the suprapubic catheter. You were found to have a complicated urinary tract infections and were treated with antibiotics you will need to take another 3 days of the antibiotic You should follow up with urology and your family doctor You will have home health services and should continue to monitor blood pressure. Your blood pressure was low in the hospital and your Norvasc (amlodipine ) medication was discontinued Home nursing will check BP Also you were started on potassium pills daily and will need blood work in a few days. Pending Studies at Discharge: No Stand-Alone Forms: My [facility] Medications and DC Order Prescriptions: New potassium chloride 20 mEq tablet extended release 20 meq PO DAILY Qty: 30 0RF cefdinir 300 mg capsule 300 mg PO BID 3 Days Qty: 6 0RF Continued folic acid 1 mg tablet 1 mg PO QAM Qty: 90 1RF albuterol sulfate 2.5 mg /3 mL (0.083 %) solution for nebulization 2.5 mg inhalation QID PRN (Reason: shortness of breath or wheezing) Qty: 75 5RF isosorbide mononitrate 30 mg tablet extended release 24 hr 30 mg PO QAM Qty: 90 1RF gabapentin 300 mg capsule 300 mg PO HS Qty: 90 3RF ipratropium-albuterol 0.5 mg-3 mg(2.5 mg base)/3 mL solution for nebulization 3 ml inhalation Q6H PRN (Reason: wheezing) Qty: 90 0RF Eliquis 2.5 mg tablet 2.5 mg PO BID Qty: 180 1RF tramadol 50 mg tablet 50 mg PO TID PRN (Reason: Pain) Qty: 30 0RF memantine [Namenda] 10 mg tablet 10 mg PO BID Qty: 180 3RF donepezil 10 mg tablet 10 mg PO HS Qty: 90 3RF benzonatate 100 mg capsule 100 mg PO TID PRN (Reason: cough) Qty: 30 0RF acetaminophen 325 mg tablet 650 mg PO Q6H PRN (Reason: pain) Qty: 30 0RF carvedilol 3.125 mg tablet 3.125 mg PO BIDWMEAL Qty: 180 1RF levothyroxine [Synthroid] 112 mcg tablet 112 mcg PO HS Qty: 90 1RF famotidine [Pepcid] 40 mg tablet 40 mg PO DAILYBB Qty: 90 1RF bethanechol chloride 50 mg tablet 50 mg PO QID Qty: 360 1RF bupropion HCl 100 mg tablet sustained-release 12 hr 100 mg PO BID Qty: 60 5RF ferrous sulfate 325 mg (65 mg iron) tablet,delayed release (DR/EC) 325 mg PO QAM polyethylene glycol 3350 [Miralax] 17 gram powder in packet 17 g PO BID PRN (Reason: Constipation) cyanocobalamin (vitamin B-12) 1,000 mcg Tablet 1,000 mcg PO QAM ascorbic acid (vitamin C) [Vitamin C] 500 mg Tablet 500 mg PO QAM docusate sodium [Stool Softener] 100 mg Capsule 100 mg PO BID PRN (Reason: Constipation) vitamin E 400 unit Capsule 400 unit PO HS albuterol sulfate [Ventolin HFA] 90 mcg/actuation Hfa Aerosol Inhaler 2 puff inhalation Q6H PRN (Reason: cough/wheeze/shortness of breath) Qty: 1 0RF nystatin 100,000 unit/gram cream 1 applic topical UD PRN (Reason: Skin Irritation) tamsulosin 0.4 mg capsule 0.4 mg PO HS Qty: 30 0RF calcium carbonate-vitamin D3 500 mg-5 mcg (200 unit) Tablet 1 tab PO DAILY simvastatin 80 mg tablet 80 mg PO HS Discontinued amlodipine [Norvasc] 5 mg tablet 5 mg PO QAM Qty: 90 1RF Rx Instructions: IF B/P HIGH STOP, IF B/P LOW GIVE. Discharge Orders: Discharge Order (Routine); Ordered 02/12/22 Ordered By: Maryan Moreau Admission Data Admit Date/Time: 02/05/22 18:15 Attending Provider: Fifi Prabhakar Admit Provider: Ashvin Bloom Primary Care Provider: Celina Saunders Other Providers: Ashvin Bloom ; William Medrano Other Interventions: Discharge Summary Assessment (RN) Last Done: 02/12/22 16:02 Supervising Physician Co-Signing Physician Notes PA Supervision Note: I personally saw and examined the patient. I verified all delaney points and agree with KAMI Moreau with the following exceptions and/or additions: Subjective: 82 yo M Hx indwelling myles and ureteral stents presented for abdominal pain and hematuria. Doing well no longer has abdominal pain. Physical exam: Vitals reviewed Gen: Alert and oriented to self, NAD CV: RRR no mgr nl S1S2 Pulm: CTAB no wcr Abd: +BS soft NT ND no masses, catheter site without evidence of infection Skin: no rashes, warm/dry Neuro: No focal neurologic deficits, speaks out of right side of mouth, speech clearer today Labs, Rads, and ECG reviewed Assessment and Plan: Hematuria, abdominal pain: was due for ureteral stent exchange, tolerated well and Hgb has been stable after some drop, follow up CBC by PCP. Rocephin transitioned to cefdinir on discharge for total of 10 days of Abx treatment for complicated UTI.. Anemia: 2/2 hematuria, also has some chronic anemia at baseline. Follow up PCP, no evidence of further bleeding. Hypokalemia: had a few episodes of such including day of discharge, repleted and normal on repeat before discharge. Discharge with KCl 20meq daily with follow up BMP, PCP follow up. Dysarthria: seems to wax and wane, not really consistent with CVA however did take CT Head no evidence of CVA. Could benefit from speech therapy. Ambulatory dysfunction: Patient with significant care needs, not recommended for home by PT service. However after discussion with , despite these recommendations for rehab, she declines this in favor of home with home health. Did discuss concerns about feasibility of home care given level of care needs at this time. However, as patient's is his decision maker, allowed patient discharge home and set up Home Health to try to offset anticipated possible care difficulties. Coding Level of Care Code HOSP INP/OBS DISCH >30 MIN Diagnoses UTI (urinary tract infection) N39.0 Indwelling urinary catheter type: cystostomy catheter Urinary tract infection type: catheter-associated UTI Elevated troponin R77.8 Hematuria R31.9 Stercoral colitis K52.89 COVID-19 U07.1 Ureteral stent present Z96.0 Hypokalemia E87.6 Chronic suprapubic catheter Z93.59 Anemia D64.9 Chronic diastolic heart failure I50.32 Hypothyroidism E03.9 Hypothyroidism type: acquired Dyslipidemia E78.5 Dementia F03.90 CAD (coronary artery disease) I25.10 Paroxysmal atrial fibrillation I48.0 Aortic stenosis I35.0 Pacemaker Z95.0 Anxiety and depression F41.9; F32.9 Facial droop R29.810
== END 2022-02-12 16:50 | disposition home health service (06) | DRG 659 ==
LOC: ED 13:29 → EDINP 18:15 → SUATTDRO 18:15 → 2S 02-06 20:54 → 2W 02-11 23:17
DX: Z79.890 Hormone replacement therapy; G89.29 Other chronic pain; Z88.5 Allergy status to narcotic agent; Z95.0 Presence of cardiac pacemaker; D64.9 Anemia, unspecified; E87.6 Hypokalemia; R29.810 Facial weakness; I25.2 Old myocardial infarction; Z79.899 Other long term (current) drug therapy; I35.0 Nonrheumatic aortic (valve) stenosis; E03.9 Hypothyroidism, unspecified; Y82.8 Other medical devices associated with adverse incidents; N39.0 Urinary tract infection, site not specified; I50.32 Chronic diastolic (congestive) heart failure; I25.10 Atherosclerotic heart disease of native coronary artery without angina pectoris; K52.9 Noninfective gastroenteritis and colitis, unspecified; I24.8 Other forms of acute ischemic heart disease; I13.0 Hypertensive heart and chronic kidney disease with heart failure and stage 1 through stage 4 chronic kidney disease, or unspecified chronic kidney disease; Z88.8 Allergy status to other drugs, medicaments and biological substances; T83.511A Infection and inflammatory reaction due to indwelling urethral catheter, initial encounter; U07.1 COVID-19; Z87.891 Personal history of nicotine dependence; I48.0 Paroxysmal atrial fibrillation; E78.5 Hyperlipidemia, unspecified; F41.8 Other specified anxiety disorders; Z91.041 Radiographic dye allergy status

== ENCOUNTER 2022-05-15 12:11 | Inpatient (IN) ==
--- NOTE | 2022-05-15 13:10 | Emergency Department Note ---
Impression & Plan GIOVANY (acute kidney injury), Confusion, Diarrhea, Acute UTI ED Provider Note Provider: Cyrus Back MD DATE OF SERVICE: 05/15/2022 CHIEF COMPLAINT: Confusion, diarrhea, lower abdominal pain, possible UTI HISTORY OF PRESENT ILLNESS: Patient is a 82-year-old gentleman history unfortunately of dementia, pacemaker, bowel obstruction, aortic stenosis, CKD, hypothyroidism, paroxysmal atrial fibrillation on Eliquis, CKD, and chronic suprapubic Myles presenting here via ambulance from his home today. EMS reports the patient is more confused with concerns for UTI and some lower abdominal pain as well as several days of diarrhea. Patient himself states he has had some mid to lower abdominal discomfort. Reports he is stable on his chronic oxygen. Denies any confusion or fatigue but is not the best historian. Patient denies any chest pain, shortness of breath, or confusion to me called and discussed with his via phone. and daughter via phone report the patient does have ureteral stents in place and is due to have those changed shortly. Myles was last changed on April 23. Did finish a course of Bactrim last dose last night. 3 to 4 days of some diarrhea. No other sick contacts reported. No trauma reported or fevers. PAST MEDICAL HISTORY: As noted above MEDICATIONS: Reviewed medication list and the patient believes she has been taking them SOCIAL HISTORY: and lives at home with , states he does not ambulate PHYSICAL EXAM: GENERAL: alert and oriented to person in no acute distress on stretcher Head: normocephalic and atraumatic EYES: No injection, discharge or icterus. PERRL NECK: Trachea midline. Supple. ENT: Mucous membranes pink and moist. On chronic nasal cannula oxygen LUNGS: Airway patent. No retractions. Breath sounds clear with good air entry bilaterally. HEART: Regular rate and rhythm. No chest wall tenderness ABDOMEN: Soft with some mild lower abdominal tenderness. 20 [place] suprapub[address] catheter in place in the mid to right abdomen. Myles bag has urine sediment and dark yellow urine. SKIN: Acyanotic, warm, dry, without rashes EXTREMITIES: Without swelling, tenderness or deformity NEUROLOGICAL: No focal deficits moving all extremities to command. No aphasia. No facial droop or slurred speech. Gross sensation intact in all 4 extremities. EK bpm appears to be in normal sinus rhythm although there is some baseline artifact (question given his regularity pacing) without acute ST segment elevation or depression with a QTc of 439. Left axis is noted. CONTINUOUS CARDIAC MONITORING: was ordered and showed a heart rate of 70s bpm in normal sinus rhythm (and given his history and regularity question underlying atrial pacing but difficult given some baseline artifact to truly confirm) Patient's laboratory studies and imaging reviewed. Differential includes Infection, dehydration, metabolic abnormality, h ypo/hyperglycemia, electrolyte disturbance, anemia, hypoxia, cardiac sources, intracerebral event, toxicologic, neurologic, as well as other pathologies. IMPRESSION/MEDICAL DECISION MAKING: Patient with a chronic suprapubic Myles. Patient not the best historian but EMS reports some concern for increased confusion, diarrhea, lower abdominal pain possible UTI. As such I did change without complication with sterile gloves and standard technique the 20 [place] suprapubic catheter in place in his lower abdomen. CT abdomen pelvis obtained without contrast given his history of renal dysfunction as well as a CT of the head given reports of confusion as well as abdominal pain. Not having significant focal deficit however with the use of his apixaban went to exclude intracranial bleed. Vitals are stable and he is not hypoxic, tachycardic, or hypotensive here and I doubt severe sepsis or sep tic shock at this point. In light of his chronic oxygen use which is at baseline as well as his CHF want to be careful to avoid fluid overload. Not in significant discomfort and will avoid pain medicines as able given his reported underlying confusion. Attempted call his at the listed phone number without initial answer. Reviewed prior microbiology and discussed with pharmacist antibiotic choice for likely urinary tract infection. Stool testing ordered given the reported diarrhea pending collection. CT head here without acute findings per radiology of bleeding or mass. Negative COVID. Procalcitonin not elevated. Normal lipase and no evidence of transaminitis concerning for pancreatitis or hepatitis. CT abdomen pelvis per radiology does show ureteral stents in place with stable positioning. Punctate stone in the lower right kidney pole without ureteral stone. Some bladder thickening is noted on the imaging by radiology with some constipation and possible mild stercoral proctitis no evidence of bowel obstruction. They question maybe a little bit of interstitial thickening at the lung bases but again the patient denies a significant respiratory component at this point. We will complete a chest x-ray but given elevated creatinine and BUN today given some small amount of gentle hydration here. Chest x-ray without significant pleural effusions by radiology report and my review.. Again CT seems to show okay placement of the ureteral stents. CBC with mild leukocytosis and stable anemia. Urinalysis returns grossly positive for signs of infection with budding hyphae as well. Will cover with cefepime at this time. May have some component of chronic colonization but given his symptoms with the acute GIOVANY and stenting in place cover with antibiotics. Again just finished Bactrim last night according to family. Updated via phone. Hospitalist team contacted. DIAGNOSIS: Confusion, weakness, GIOVANY, acute UTI, diarrhea DISPOSITION: Hospitalist will evaluate Patient was agreeable with this plan and updated family on phone. Past Med/Surg History Medical History Anxiety and depression Aortic stenosis CAD (coronary artery disease) Chronic diastolic heart failure Chronic pain COPD (chronic obstructive pulmonary disease) COPD with emphysema Dementia Dyslipidemia History of kidney stones History of [place] (myocardial infarction) History of recent hospitalization Hydronephrosis Hypertension Hypothyroidism Iron deficiency anemia Nocturnal hypoxia Pacemaker Paroxysmal atrial fibrillation Recurrent UTI Secondary hyperparathyroidism of renal origin Sleep apnea Stage 3b chronic kidney disease Suprapubic catheter Surgical History H/O total knee replacement History of back surgery History of cardiac cath History of carpal tunnel release of both wrists History of cataract surgery History of colonoscopy History of lithotripsy History of lumbar fusion History of prostate surgery History of thyroidectomy History of tooth extraction S/P cystoscopy with ureteral stent placement S/P TURP S/P ureteral stent placement Family History Father Diabetes Mother Coronary heart disease Hypertension Brother Seizure Other No family history of adverse response to anesthesia Denies family history of Ovarian cancer Prostate cancer Myocardial infarction Breast cancer Colorectal cancer Social History Smoking Status: Current every day smoker Tobacco Type: Cigarettes Age Started Using Tobacco: 15; Age Quit Using Tobacco: 59; packs per day: 2; Second Hand Exposure: No; Hx Alcohol Use: No Hx Substance Use: No Preferred Language: Indonesian Communication Ability: Unable Communication Ability Comment: "some things he will remember/some wont" per can sign own consent Visual Impairment: No Limitations Hearing Ability: Hard of Hearing Insole And Outsole Splitter Required: No Beliefs That Will Affect Care: Pentecostal marital status: Current Living Situation: Spouse Current Living Situation Comment: spouse and daughters current occupational status: retired How many Children do You have: 3 Feels Safe at Home: Yes Childhood Exposure to Second-Hand Smoke: No caffeine: Yes (Coffee 3 per day.) during the past year weight has: remained stable Dental Care, Regularly: No Physical Activity Frequency: Does not Exercise Seatbelt Use: always Sunscreen Use: No Assistive Devices: Mechanical Lift, Oxygen - Continuous, Walker and Wheelchair Allergies Allergies Allergy/AdvReac Type Severity Reaction Status Date / Time captopril Allergy Severe Anaphylaxis Verified 02/05/22 17:27 Iodinated Contrast Media Allergy Severe Anaphylaxis Verified 02/05/22 17:27 morphine Allergy Severe Anaphylaxis Verified 02/05/22 21:27 oxaprozin Allergy Severe Anaphylaxis Verified 02/05/22 17:27 torsemide Allergy Severe Anaphylaxis Verified 02/05/22 17:27 hydrocodone Allergy Mild Rash Verified 02/05/22 17:27 Home Meds Home Medications Medication Instructions Recorded Confirmed cyanocobalamin (vitamin B-12) 1,000 mcg PO QAM 07/16/20 02/13/22 1,000 mcg tablet ferrous sulfate 325 mg (65 mg 325 mg PO QAM 07/16/20 02/13/22 iron) tablet,delayed release polyethylene glycol 3350 17 gram 17 g PO BID PRN Constipation 07/16/20 02/13/22 oral powder packet (Miralax) ascorbic acid (vitamin C) 500 mg 500 mg PO QAM 10/22/20 02/13/22 tablet (Vitamin C) docusate sodium 100 mg capsule 100 mg PO BID PRN Constipation 10/22/20 02/13/22 (Stool Softener) vitamin E 268 mg (400 unit) capsule 400 unit PO HS 10/22/20 02/13/22 nystatin 100,000 unit/gram topical 1 applic topical UD PRN Skin 05/22/21 02/13/22 cream Irritation calcium carbonate 500 mg-vitamin 1 tab PO DAILY 09/29/21 02/13/22 D3 5 mcg (200 unit) tablet Previous Rx's Medication Instructions Recorded folic acid 1 mg tablet 1 mg PO QAM #90 tabs 10/04/19 albuterol sulfate 90 mcg/actuation 2 puff inhalation Q6H PRN 07/09/20 aerosol inhaler (Ventolin HFA) cough/wheeze/shortness of breath #1 inhaler albuterol sulfate 2.5 mg/3 mL 2.5 mg (3 mL) inhalation QID PRN 04/16/21 (0.083 %) solution for nebulization shortness of breath or wheezing #75 mL ipratropium 0.5 mg-albuterol 3 mg 3 ml inhalation Q6H PRN wheezing 06/20/21 (2.5 mg base)/3 mL nebulization #90 mL soln tramadol 50 mg tablet 50 mg PO TID PRN Pain #30 tabs 09/03/21 memantine 10 mg tablet (Namenda) 10 mg PO BID #180 tabs 09/09/21 benzonatate 100 mg capsule 100 mg PO TID PRN cough #30 caps 09/23/21 donepezil 10 mg tablet 10 mg PO HS #90 tabs 09/23/21 acetaminophen 325 mg tablet 650 mg PO Q6H PRN pain #30 tabs 12/18/21 levothyroxine 112 mcg tablet 112 mcg PO HS #90 tabs 01/15/22 (Synthroid) famotidine 40 mg tablet (Pepcid) 40 mg PO DAILYBB #90 tabs 01/20/22 miscellaneous medical supply 1 ea miscellaneous ONCE #1 ea 02/20/22 apixaban 2.5 mg tablet (Eliquis) 2.5 mg PO BID #180 tabs 02/24/22 bupropion HCl 100 mg tablet,12 hr 100 mg PO BID #60 ea 02/24/22 sustained-release gabapentin 300 mg capsule 300 mg PO HS #90 caps 02/24/22 fluconazole 100 mg tablet 100 mg PO DAILY 3 days #3 tabs 02/28/22 (Diflucan) isosorbide mononitrate 30 mg 30 mg PO QAM #90 tabs 03/03/22 tablet,extended release 24 hr sulfamethoxazole 800 1 tab PO BID #6 tabs 03/18/22 mg-trimethoprim 160 mg tablet (Bactrim DS) tamsulosin 0.4 mg capsule 0.4 mg PO HS #90 caps 03/27/22 simvastatin 80 mg tablet 80 mg PO HS #90 tabs 04/14/22 bethanechol chloride 50 mg tablet 50 mg PO QID #360 tabs 04/28/22 carvedilol 3.125 mg tablet 3.125 mg PO BIDWMEAL #180 tabs 05/14/22 potassium chloride 20 mEq 20 meq PO DAILY #30 tabs 05/14/22 tablet,extended release Results & Data (ED) Vital Signs Vital Signs - 24 hr 05/15/22 12:17 05/15/22 12:17 05/15/22 13:13 Pulse Rate 72 71 Pulse Rate [Apical] Pulse Rate from SpO2 Sensor Pulse Rhythm Regular Pulse Rhythm [Apical] Pulse Strength Normal Pulse Strength [Apical] Respiratory Rate 18 20 Respiratory Effort / Characteristics Non-Labored Spontaneous Non-Labored Spontaneous Respiratory Depth Normal Normal Respiratory Pattern Regular Regular Blood Pressure 123/74 Blood Pressure [Left Arm] Blood Pressure Mean 90 Blood Pressure Mean [Left Arm] Blood Pressure Position Sitting Blood Pressure Position [Left Arm] Pulse Oximetry 95 99 Oxygen Delivery Method Nasal Cannula Nasal Cannula Oxygen Flow Rate 2 Sepsis Recent Fever Within 48 Hours No Sepsis New/Unexplained Change in Mental Status Yes Sepsis Action Taken by Nursing No Action Required 05/15/22 14:17 05/15/22 13:06 05/15/22 13:10 Pulse Rate 70 70 Pulse Rate [Apical] 70 Pulse Rate from SpO2 Sensor 69 70 Pulse Rhythm Pulse Rhythm [Apical] Regular Pulse Strength Pulse Strength [Apical] Normal Respiratory Rate 17 19 16 Respiratory Effort / Characteristics Non-Labored Spontaneous Respiratory Depth Normal Respiratory Pattern Regular Blood Pressure Blood Pressure [Left Arm] 148/80 H Blood Pressure Mean Blood Pressure Mean [Left Arm] 102 Blood Pressure Position Blood Pressure Position [Left Arm] Lying Pulse Oximetry 100 100 100 Oxygen Delivery Method Nasal Cannula Oxygen Flow Rate 2 Sepsis Recent Fever Within 48 Hours Sepsis New/Unexplained Change in Mental Status Sepsis Action Taken by Nursing 05/15/22 13:20 05/15/22 13:40 05/15/22 13:50 Pulse Rate 71 70 Pulse Rate [Apical] Pulse Rate from SpO2 Sensor Pulse Rhythm Pulse Rhythm [Apical] Pulse Strength Pulse Strength [Apical] Respiratory Rate 32 H 18 19 Respiratory Effort / Characteristics Respiratory Depth Respiratory Pattern Blood Pressure Blood Pressure [Left Arm] Blood Pressure Mean Blood Pressure Mean [Left Arm] Blood Pressure Position Blood Pressure Position [Left Arm] Pulse Oximetry 79 L Oxygen Delivery Method Oxygen Flow Rate Sepsis Recent Fever Within 48 Hours Sepsis New/Unexplained Change in Mental Status Sepsis Action Taken by Nursing 05/15/22 14:00 05/15/22 14:10 05/15/22 14:20 Pulse Rate 69 70 70 Pulse Rate [Apical] Pulse Rate from SpO2 Sensor Pulse Rhythm Pulse Rhythm [Apical] Pulse Strength Pulse Strength [Apical] Respiratory Rate 17 19 21 Respiratory Effort / Characteristics Respiratory Depth Respiratory Pattern Blood Pressure Blood Pressure [Left Arm] Blood Pressure Mean Blood Pressure Mean [Left Arm] Blood Pressure Position Blood Pressure Position [Left Arm] Pulse Oximetry Oxygen Delivery Method Oxygen Flow Rate Sepsis Recent Fever Within 48 Hours Sepsis New/Unexplained Change in Mental Status Sepsis Action Taken by Nursing 05/15/22 14:26 05/15/22 14:26 05/15/22 14:30 Pulse Rate 69 69 71 Pulse Rate [Apical] Pulse Rate from SpO2 Sensor Pulse Rhythm Pulse Rhythm [Apical] Pulse Strength Pulse Strength [Apical] Respiratory Rate 15 15 15 Respiratory Effort / Characteristics Respiratory Depth Respiratory Pattern Blood Pressure 148/80 H Blood Pressure [Left Arm] Blood Pressure Mean 102 Blood Pressure Mean [Left Arm] Blood Pressure Position Blood Pressure Position [Left Arm] Pulse Oximetry 98 Oxygen Delivery Method Oxygen Flow Rate 2 Sepsis Recent Fever Within 48 Hours Sepsis New/Unexplained Change in Mental Status Sepsis Action Taken by Nursing 05/15/22 14:31 05/15/22 14:31 05/15/22 14:40 Pulse Rate 69 69 70 Pulse Rate [Apical] Pulse Rate from SpO2 Sensor Pulse Rhythm Pulse Rhythm [Apical] Pulse Strength Pulse Strength [Apical] Respiratory Rate 20 20 18 Respiratory Effort / Characteristics Respiratory Depth Respiratory Pattern Blood Pressure 161/67 H Blood Pressure [Left Arm] Blood Pressure Mean 98 Blood Pressure Mean [Left Arm] Blood Pressure Position Blood Pressure Position [Left Arm] Pulse Oximetry 100 Oxygen Delivery Method Oxygen Flow Rate Sepsis Recent Fever Within 48 Hours Sepsis New/Unexplained Change in Mental Status Sepsis Action Taken by Nursing 05/15/22 14:50 Pulse Rate 82 Pulse Rate [Apical] Pulse Rate from SpO2 Sensor 70 Pulse Rhythm Pulse Rhythm [Apical] Pulse Strength Pulse Strength [Apical] Respiratory Rate 16 Respiratory Effort / Characteristics Respiratory Depth Respiratory Pattern Blood Pressure Blood Pressure [Left Arm] Blood Pressure Mean Blood Pressure Mean [Left Arm] Blood Pressure Position Blood Pressure Position [Left Arm] Pulse Oximetry 100 Oxygen Delivery Method Oxygen Flow Rate Sepsis Recent Fever Within 48 Hours Sepsis New/Unexplained Change in Mental Status Sepsis Action Taken by Nursing Laboratory Data 05/15/22 12:53 05/15/22 12:53 Lab Results 05/15/22 05/15/22 05/15/22 Range/Units 12:53 12:53 12:53 WBC 11.84 H (4.8-10.8) K/ul RBC 3.40 L (4.70-6.10) M/uL Hgb 9.8 L (14.0-18.0) g/dl Hct 31.9 L (42.0-52.0) % MCV 93.8 (80.0-100.0) fL MCH 28.8 (25.0-34.0) pg MCHC 30.7 L (32.0-36.0) g/dL RDW Std Deviation 59.0 H (36.4-46.3) fL RDW Coeff of [place] 17.1 H (11.5-14.5) % Plt Count 266 (130-400) K/uL MPV 11.1 (9.4-12.4) fL Immature Gran % (Auto) 0.5 % Neut % (Auto) 62.6 % Lymph % (Auto) 23.6 % [place] % (Auto) 12.0 % Eos % (Auto) 1.0 % Baso % (Auto) 0.3 % Neut # (Auto) 7.42 H (1.40-6.50) K/uL Lymph # (Auto) 2.79 (1.2-3.4) K/uL [place] # (Auto) 1.42 H (0.11-0.59) K/uL Eos # (Auto) 0.12 (0-0.50) K/uL Baso # (Auto) 0.03 (0-0.2) K/uL Immature Gran # (Auto) 0.06 (0.01-0.20) K/uL PT 11.9 (9.0-12.0) Seconds INR 1.1 (0.9-1.1) Sodium 144 (136-145) mmol/L Potassium 4.0 (3.5-5.1) mmol/L Chloride 111 H (98-107) mmol/L Carbon Dioxide 25 (21-32) mmol/L Anion Gap 8 (3-11) BUN 41 H (6-23) mg/dl Creatinine 3.02 H (0.6-1.4) mg/dl Est Cr Clr Drug Dosing 17.3 ml/min Est GFR ( Amer) 21.1 ml/min Est GFR (Non-Af Amer) 18.2 ml/min BUN/Creatinine Ratio 13.6 (10-20) Glucose 83 (70-99(Fasting)) mg/dl Lactate (0.4-2.0) mmol/L Calcium 9.4 (8.6-10.3) mg/dl Total Bilirubin 0.3 (0.2-1.0) mg/dl AST 15 (13-39) U/L ALT 9 (7-52) U/L Alkaline Phosphatase 94 (34-104) U/L Troponin I High Sens 24.3 H (0-20) pg/ml Total Protein 7.0 (6.0-8.3) gm/dl Albumin 3.0 L (3.4-5.0) gm/dl Globulin 4.0 (2.5-4.0) gm/dl Albumin/Globulin Ratio 0.8 L (0.9-2) Lipase 57 (11-82) U/L Procalcitonin (0-0.5) ng/ml Urine Color Urine Appearance (Clear) Urine pH (4.5-7.5) Ur Specific [place] (1.000-1.030) Urine Protein (Negative) Urine Glucose (UA) (Negative) Urine Ketones (Negative) Urine Blood (Negative) Urine Nitrite (Negative) Urine Bilirubin (Negative) Urine Urobilinogen (Negative) Ur Leukocyte Esterase (Negative) Urine RBC (0-4) /hpf Urine WBC (0-5) /hpf Ur Epithelial Cells (0-5) /lpf Urine Bacteria (Negative) Urine Yeast (None Prsent) SARS-CoV-2, RNA, NAAT (NEGATIVE) 05/15/22 05/15/22 05/15/22 Range/Units 12:53 12:53 13:49 WBC (4.8-10.8) K/ul RBC (4.70-6.10) M/uL Hgb (14.0-18.0) g/dl Hct (42.0-52.0) % MCV (80.0-100.0) fL MCH (25.0-34.0) pg MCHC (32.0-36.0) g/dL RDW Std Deviation (36.4-46.3) fL RDW Coeff of [place] (11.5-14.5) % Plt Count (130-400) K/uL MPV (9.4-12.4) fL Immature Gran % (Auto) % Neut % (Auto) % Lymph % (Auto) % [place] % (Auto) % Eos % (Auto) % Baso % (Auto) % Neut # (Auto) (1.40-6.50) K/uL Lymph # (Auto) (1.2-3.4) K/uL [place] # (Auto) (0.11-0.59) K/uL Eos # (Auto) (0-0.50) K/uL Baso # (Auto) (0-0.2) K/uL Immature Gran # (Auto) (0.01-0.20) K/uL PT (9.0-12.0) Seconds INR (0.9-1.1) Sodium (136-145) mmol/L Potassium (3.5-5.1) mmol/L Chloride (98-107) mmol/L Carbon Dioxide (21-32) mmol/L Anion Gap (3-11) BUN (6-23) mg/dl Creatinine (0.6-1.4) mg/dl Est Cr Clr Drug Dosing ml/min Est GFR ( Amer) ml/min Est GFR (Non-Af Amer) ml/min BUN/Creatinine Ratio (10-20) Glucose (70-99(Fasting)) mg/dl Lactate (0.4-2.0) mmol/L Calcium (8.6-10.3) mg/dl Total Bilirubin (0.2-1.0) mg/dl AST (13-39) U/L ALT (7-52) U/L Alkaline Phosphatase (34-104) U/L Troponin I High Sens (0-20) pg/ml Total Protein (6.0-8.3) gm/dl Albumin (3.4-5.0) gm/dl Globulin (2.5-4.0) gm/dl Albumin/Globulin Ratio (0.9-2) Lipase (11-82) U/L Procalcitonin < 0.05 (0-0.5) ng/ml Urine Color Yellow Urine Appearance Clear (Clear) Urine pH 5.5 (4.5-7.5) Ur Specific [place] >= 1.030 (1.000-1.030) Urine Protein 2+ H (Negative) Urine Glucose (UA) Negative (Negative) Urine Ketones Negative (Negative) Urine Blood 3+ H (Negative) Urine Nitrite Negative (Negative) Urine Bilirubin Negative (Negative) Urine Urobilinogen Negative (Negative) Ur Leukocyte Esterase 3+ H (Negative) Urine RBC >30 H (0-4) /hpf Urine WBC >30 H (0-5) /hpf Ur Epithelial Cells 0-5 (0-5) /lpf Urine Bacteria 4+ H (Negative) Urine Yeast Budding w/ Hyphae A (None Prsent) SARS-CoV-2, RNA, NAAT NEGATIVE (NEGATIVE) 05/15/22 Range/Units 14:02 WBC (4.8-10.8) K/ul RBC (4.70-6.10) M/uL Hgb (14.0-18.0) g/dl Hct (42.0-52.0) % MCV (80.0-100.0) fL MCH (25.0-34.0) pg MCHC (32.0-36.0) g/dL RDW Std Deviation (36.4-46.3) fL RDW Coeff of [place] (11.5-14.5) % Plt Count (130-400) K/uL MPV (9.4-12.4) fL Immature Gran % (Auto) % Neut % (Auto) % Lymph % (Auto) % [place] % (Auto) % Eos % (Auto) % Baso % (Auto) % Neut # (Auto) (1.40-6.50) K/uL Lymph # (Auto) (1.2-3.4) K/uL [place] # (Auto) (0.11-0.59) K/uL Eos # (Auto) (0-0.50) K/uL Baso # (Auto) (0-0.2) K/uL Immature Gran # (Auto) (0.01-0.20) K/uL PT (9.0-12.0) Seconds INR (0.9-1.1) Sodium (136-145) mmol/L Potassium (3.5-5.1) mmol/L Chloride (98-107) mmol/L Carbon Dioxide (21-32) mmol/L Anion Gap (3-11) BUN (6-23) mg/dl Creatinine (0.6-1.4) mg/dl Est Cr Clr Drug Dosing ml/min Est GFR ( Amer) ml/min Est GFR (Non-Af Amer) ml/min BUN/Creatinine Ratio (10-20) Glucose (70-99(Fasting)) mg/dl Lactate 1.2 (0.4-2.0) mmol/L Calcium (8.6-10.3) mg/dl Total Bilirubin (0.2-1.0) mg/dl AST (13-39) U/L ALT (7-52) U/L Alkaline Phosphatase (34-104) U/L Troponin I High Sens (0-20) pg/ml Total Protein (6.0-8.3) gm/dl Albumin (3.4-5.0) gm/dl Globulin (2.5-4.0) gm/dl Albumin/Globulin Ratio (0.9-2) Lipase (11-82) U/L Procalcitonin (0-0.5) ng/ml Urine Color Urine Appearance (Clear) Urine pH (4.5-7.5) Ur Specific [place] (1.000-1.030) Urine Protein (Negative) Urine Glucose (UA) (Negative) Urine Ketones (Negative) Urine Blood (Negative) Urine Nitrite (Negative) Urine Bilirubin (Negative) Urine Urobilinogen (Negative) Ur Leukocyte Esterase (Negative) Urine RBC (0-4) /hpf Urine WBC (0-5) /hpf Ur Epithelial Cells (0-5) /lpf Urine Bacteria (Negative) Urine Yeast (None Prsent) SARS-CoV-2, RNA, NAAT (NEGATIVE) Administered Medications Discontinued Medications Lactated Ringer's (Lr) 250 mls @ 999 mls/hr IV .Q16M ONE Stop: 05/15/22 14:39 Last Admin: 05/15/22 14:45 Dose: 999 mls/hr Documented By: MICHELE Cefepime HCl (Maxipime) 2,000 mg in 20 mls @ 5 mls/min IV NOW STA; Protocol Stop: 05/15/22 14:44 Last Admin: 05/15/22 14:46 Dose: 5 mls/min Documented By: MICHELE Imaging Data Radiologist's Impression: Abdomen/Pelvis CT 05/15/22 12:[address] WITHOUT CONTRAST CT DOSE: HISTORY: L abd pain, confusion, chronic myles TECHNIQUE: Multiaxial CT images of the abdomen and pelvis were performed without contrast. A dose lowering technique was utilized adhering to the principles of ALARA. COMPARISON STUDY: Abdomen and pelvis CT 02/05/2022. FINDINGS: Interstitial thickening with patchy irregular groundglass densities at the lung bases. This is slightly progressed and may represent pulmonary edema or an atypical pneumonitis on the background of chronic interstitial change. There is a trace left pleural effusion. Pacemaker wires are noted. No pneumoperitoneum. No pneumatosis. Moderate right and left hip osteoarthritis again noted. Posterior decompression within the lower lumbar spine. No acute fractures identified. Small fat-containing bilateral inguinal hernias. Partially visualized penile implant is noted. Diffuse muscular atrophy again noted. Cholecystectomy. The unenhanced liver, pancreas, and adrenal glands unremarkable. Multiple calcified splenic granulomas. Bilateral ureteral stents appear and good position. There is a punctate stone within the lower pole of the right kidney. No left renal calculi. Moderate right and severe left hydronephrosis to the level of the ureteropelvic junctions persists. No retroperitoneal lymphadenopathy. Calcified plaque within the normal caliber abdominal aorta. No pelvic lymphadenopathy or pelvic free fluid. The bladder is decompressed by suprapubic catheter. Mild bladder wall thickening with adjacent fat stranding persists. A moderate to large amount of stool and fluid within the distal sigmoid colon and rectum with mild wall thickening. This raises the possibility of a mild stercoral proctitis. No evidence for bowel obstruction. Moderate well-formed stool seen throughout the remaining colon. Normal appendix. IMPRESSION: 1. Unchanged moderate right and severe left hydronephrosis with stable p ositioning of the ureteral stents. 2. There is a punctate stone within the lower pole of the right kidney. No ureteral stones identified. 3. Bladder wall thickening with adjacent fat stranding, unchanged. The bladder is decompressed by suprapubic catheter. Recommend correlation with urinalysis to exclude a cystitis. 4. Constipation with possible mild stercoral proctitis. This is similar to the prior study. 5. No evidence for a bowel obstruction. 6. Interstitial thickening with patchy irregular groundglass densities at the lung bases. This is slightly progressed and may represent pulmonary edema or an atypical pneumonitis on the background of chronic interstitial change.. 7. Additional findings as described above. ACT 112: Negative or not required by law. Electronically signed by: Travis Cabrera M.D. 05/15/2022 1:[address] 05/15/22 12:49 CT head/brain wo con CLINICAL HISTORY: confusion Technique: Contiguous axial CT images of the head were acquired from the base of the skull to the vertex without intravenous contrast administration. Images were viewed in brain, subdural and bone windows. Automated dose lowering techniques and/or adjustment according to patient size were utilized for this exam. Comparison: Comparison is made to CT head 02/28/2022 Findings: Areas of decreased attenuation are present in the periventricular and subcortical white matter bilaterally consistent with small vessel ischemic disease. Generalized cerebral atrophy with commensurate enlargement of the ventricles, sulci, and cisterns is also present. There is no acute intracranial hemorrhage or evidence of acute territorial infarction. No shift of the midline structures, mass effect, or extra-axial abnormalities are shown. Atherosclerotic calcifications are present in the intracranial segments of the internal carotid arteries. Imaged portions of the paranasal sinuses and mastoid air cells are clear. The orbits appear normal. There are no acute fractures of the calvaria or scalp swelling. Impression: No acute intracranial hemorrhage, no evidence of acute territorial infarction or other acute intracranial disease process. ACT 112: Negative or not required by law. Electronically signed by: Negro Etienne M.D. 05/15/2022 1:41 PM Chest X-Ray 05/15/22 14:20 XR chest 1V portable CLINICAL HISTORY: weak TECHNIQUE: Single frontal radiograph of the chest was obtained. Comparison: Comparison is made to chest radiograph 04/08/2021 FINDINGS: Dual lead pacemaker is seen. Cardiomegaly is noted. The aortic arch is calcified. Reticular interstitial opacities are seen. No evidence of pleural effusion or pneumothorax. IMPRESSION: Interstitial opacities are seen without evidence of acute abnormality. Stable cardiomegaly. ACT 112: Negative or not required by law. Electronically signed by: Negro Etienne M.D. 05/15/2022 2:36 PM Discharge Plan Visit Data Chief Complaint: Urinary Symptoms Stated Complaint: AB PAIN, AMS, DIARRHEA ED Provider: Cyrus Back Discharge Problem: GIOVANY (acute kidney injury), Confusion, Diarrhea, Acute UTI Patient Disposition: Being Evaluated by Hospitalist Forms Stand Alone Forms: [facility] Prescriptions Prescriptions: No Action folic acid 1 mg tablet 1 mg PO QAM Qty: 90 1RF albuterol sulfate 2.5 mg /3 mL (0.083 %) solution for nebulization 2.5 mg inhalation QID PRN (Reason: shortness of breath or wheezing) Qty: 75 5RF ipratropium-albuterol 0.5 mg-3 mg(2.5 mg base)/3 mL solution for nebulization 3 ml inhalation Q6H PRN (Reason: wheezing) Qty: 90 0RF tramadol 50 mg tablet 50 mg PO TID PRN (Reason: Pain) Qty: 30 0RF memantine [Namenda] 10 mg tablet 10 mg PO BID Qty: 180 3RF donepezil 10 mg tablet 10 mg PO HS Qty: 90 3RF benzonatate 100 mg capsule 100 mg PO TID PRN (Reason: cough) Qty: 30 0RF acetaminophen 325 mg tablet 650 mg PO Q6H PRN (Reason: pain) Qty: 30 0RF levothyroxine [Synthroid] 112 mcg tablet 112 mcg PO HS Qty: 90 1RF famotidine [Pepcid] 40 mg tablet 40 mg PO DAILYBB Qty: 90 1RF miscellaneous medical supply Misc 1 ea miscellaneous ONCE Qty: 1 0RF Rx Instructions: Gel seat cushion Eliquis 2.5 mg tablet 2.5 mg PO BID Qty: 180 1RF gabapentin 300 mg capsule 300 mg PO HS Qty: 90 3RF bupropion HCl 100 mg tablet sustained-release 12 hr 100 mg PO BID Qty: 60 5RF fluconazole [Diflucan] 100 mg tablet 100 mg PO DAILY 3 Days Qty: 3 0RF isosorbide mononitrate 30 mg tablet extended release 24 hr 30 mg PO QAM Qty: 90 1RF tamsulosin 0.4 mg capsule 0.4 mg PO HS Qty: 90 1RF simvastatin 80 mg tablet 80 mg PO HS Qty: 90 1RF bethanechol chloride 50 mg tablet 50 mg PO QID Qty: 360 1RF carvedilol 3.125 mg tablet 3.125 mg PO BIDWMEAL Qty: 180 1RF potassium chloride 20 mEq tablet extended release 20 meq PO DAILY Qty: 30 0RF sulfamethoxazole-trimethoprim [Bactrim DS] 800-160 mg tablet 1 tab PO BID Qty: 6 11RF ferrous sulfate 325 mg (65 mg iron) tablet,delayed release (DR/EC) 325 mg PO QAM polyethylene glycol 3350 [Miralax] 17 gram powder in packet 17 g PO BID PRN (Reason: Constipation) cyanocobalamin (vitamin B-12) 1,000 mcg Tablet 1,000 mcg PO QAM ascorbic acid (vitamin C) [Vitamin C] 500 mg Tablet 500 mg PO QAM docusate sodium [Stool Softener] 100 mg Capsule 100 mg PO BID PRN (Reason: Constipation) vitamin E 400 unit Capsule 400 unit PO HS albuterol sulfate [Ventolin HFA] 90 mcg/actuation Hfa Aerosol Inhaler 2 puff inhalation Q6H PRN (Reason: cough/wheeze/shortness of breath) Qty: 1 0RF nystatin 100,000 unit/gram cream 1 applic topical UD PRN (Reason: Skin Irritation) calcium carbonate-vitamin D3 500 mg-5 mcg (200 unit) Tablet 1 tab PO DAILY Referrals Referrals: Celina Saunders DO [Primary Care Provider] -
[2022-05-15 13:41] LABS: Albumin Globulin Ratio 0.8 (0.9-2); Bilirubin,Total 0.3 mg/dl (0.2-1.0); Troponin I High Sensitivity 24.3 pg/ml (0-20)
--- NOTE | 2022-05-15 13:43 | CT Scan Report ---
CT head/brain wo con CLINICAL HISTORY: confusion Technique: Contiguous axial CT images of the head were acquired from the base of the skull to the ernestina sabra without intravenous contrast administration. Images were [facility] Automated dose lowering techniques and/or adjustment according to patient size were utilized for this exam. Comparison: Comparison is made to CT head 02/28/2022 Findings: Areas of decreased attenuation are present in the periventricular and subcortical white matter bilate rally consistent with small vessel ischemic disease. Generalized cerebral atrophy with commensurate e nlargement of the ventricles, sulci, and cisterns is also present. There is no acute intracranial hem orrhage or evidence of acute territorial infarction. No shift of the midline structures, mass effect, or extra-axial abnormalities are shown. Atherosclerotic calcifications are present in the intracran ial segments of the internal carotid arteries. Imaged portions of the paranasal sinuses and mastoid air cells are clear. The orbits appear normal. There are no acute fractures of the calvaria or scalp swelling. Impression: No acute intracranial hemorrhage, no evidence of acute territorial infarction or other acute intracra nial disease process. ACT 112: Negative or not required by law. Electronically signed by: Negro Etienne M.D. 05/15/2022 1:41 PM
[2022-05-15 13:50] LABS: INR 1.1 (0.9-1.1); Prothrombin Time 11.9 Seconds (9.0-12.0)
--- NOTE | 2022-05-15 13:59 | CT Scan Report ---
ABDOMEN AND PELVIS CT WITHOUT CONTRAST CT DOSE: HISTORY: L abd pain, confusion, chronic myles TECHNIQUE: Multiaxial CT images of the abdomen and pelvis were performed without contrast. A dose lo wering technique was utilized adhering to the principles of ALARA. COMPARISON STUDY: Abdomen and pelvis CT 02/05/2022. FINDINGS: Interstitial thickening with patchy irregular groundglass densities at the lung bases. This is slightly progressed and may represent pulmonary edema or an atypical pneumonitis on the backgroun d of chronic interstitial change. There is a trace left pleural effusion. Pacemaker wires are noted. No pneumoperitoneum. No pneumatosis. Moderate right and left hip osteoarthritis again noted. Posterio r decompression within the lower lumbar spine. No acute fractures identified. Small fat-containing bi lateral inguinal hernias. Partially visualized penile implant is noted. Diffuse muscular atrophy agai n noted. Cholecystectomy. The unenhanced liver, pancreas, and adrenal glands unremarkable. Multiple c alcified splenic granulomas. Bilateral ureteral stents appear and good position. There is a punctate stone within the lower pole of the right kidney. No left renal calculi. Moderate right and severe lef t hydronephrosis to the level of the ureteropelvic junctions persists. No retroperitoneal lymphadenop athy. Calcified plaque within the normal caliber abdominal aorta. No pelvic lymphadenopathy or pelvic free fluid. The bladder is decompressed by suprapubic catheter. Mild bladder wall thickening with ad jacent fat stranding persists. A moderate to large amount of stool and fluid within the distal sigmoi d colon and rectum with mild wall thickening. This raises the possibility of a mild stercoral proctit is. No evidence for bowel obstruction. Moderate well-formed stool seen throughout the remaining colon . Normal appendix. IMPRESSION: 1. Unchanged moderate right and severe left hydronephrosis with stable positioning of the ureteral st ents. 2. There is a punctate stone within the lower pole of the right kidney. No ureteral stones identified . 3. Bladder wall thickening with adjacent fat stranding, unchanged. The bladder is decompressed by sup rapubic catheter. Recommend correlation with urinalysis to exclude a cystitis. 4. Constipation with possible mild stercoral proctitis. This is similar to the prior study. 5. No evidence for a bowel obstruction. 6. Interstitial thickening with patchy irregular groundglass densities at the lung bases. This is sli ghtly progressed and may represent pulmonary edema or an atypical pneumonitis on the background of ch ronic interstitial change.. 7. Additional findings as described above. ACT 112: Negative or not required by law. Electronically signed by: Travis Cabrera M.D. 05/15/2022 1:58 PM
[2022-05-15 14:18] LABS: Calcium 9.4 mg/dl (8.6-10.3); Creatinine Clr Calc Pharmacy 17.3 ml/min; Est GFR (African American) 21.1 ml/min; Est GFR (Non-African American) 18.2 ml/min
[2022-05-15 14:19] LABS: BUN Creatinine Ratio 13.6 (10-20)
[2022-05-15] MEDS ORDERED: LACTATED RINGER'S 250 ML IV ONE (14:24)
[2022-05-15 14:31] LABS: Appearance Urine Clear (Clear); Bilirubin Urine Negative (Negative); Blood Urine 3+ (Negative); Color Urine Yellow; Glucose Urine UA Negative (Negative); Ketones Urine Negative (Negative); Leukocyte Esterase Urine 3+ (Negative); Nitrite Urine Negative (Negative); Protein Urine 2+ (Negative); Specific Gravity Urine >= 1.030 (1.000-1.030); Urobilinogen Urine Negative (Negative); pH Urine 5.5 (4.5-7.5)
[2022-05-15 14:34] LABS: Basophils # (auto) 0.03 K/uL (0-0.2); Basophils % (auto) 0.3 %; Eosinophils # (auto) 0.12 K/uL (0-0.50); Hematocrit (blood only) 31.9 % (42.0-52.0); Hemoglobin 9.8 g/dl (14.0-18.0); Immature Granulocytes # (auto) 0.06 K/uL (0.01-0.20); Immature Granulocytes % (auto) 0.5 %; Lymphocytes # (auto) 2.79 K/uL (1.2-3.4); Lymphocytes % (auto) 23.6 %; Mean Corpuscular Hemoglobin 28.8 pg (25.0-34.0); Mean Corpuscular Hgb Conc 30.7 g/dL (32.0-36.0); Mean Corpuscular Volume 93.8 fL (80.0-100.0); Mean Platelet Volume 11.1 fL (9.4-12.4); Monocytes # (auto) 1.42 K/uL (0.11-0.59); Neutrophils # (auto) 7.42 K/uL (1.40-6.50); Neutrophils % (auto) 62.6 %; Platelet Count 266 K/uL (130-400); RDW Coefficient of Variation 17.1 % (11.5-14.5); White Blood Count 11.84 K/ul (4.8-10.8)
[2022-05-15 14:38] LABS: RBC Urine >30 /hpf (0-4); WBC Urine >30 /hpf (0-5)
--- NOTE | 2022-05-15 14:38 | XRay Report ---
XR chest 1V portable CLINICAL HISTORY: weak TECHNIQUE: Single frontal radiograph of the chest was obtained. Comparison: Comparison is made to chest radiograph 04/08/2021 FINDINGS: Dual lead pacemaker is seen. Cardiomegaly is noted. The aortic arch is calcified. Reticular interstit ial opacities are seen. No evidence of pleural effusion or pneumothorax. IMPRESSION: Interstitial opacities are seen without evidence of acute abnormality. Stable cardiomegaly. ACT 112: Negative or not required by law. Electronically signed by: Negro Etienne M.D. 05/15/2022 2:36 PM
[2022-05-15 14:39] LABS: Bacteria Urine 4+ (Negative); Epithelial Cell Urine 0-5 /lpf (0-5)
[2022-05-15] MEDS ORDERED: CEFEPIME 2,000 MG/20 ML VIAL IV STA (14:41)
--- NOTE | 2022-05-15 15:37 | History & Physical Report ---
Date of Service May 15, 2022 Assessment & Plan (1) Acute UTI: Plan: -Admit to med/tele -The patient is currently afebrile hemodynamically stable, and stable on RA -Patient has a long history of drug resistant UTI's due to his chronic suprapubic cath -Previous urine cultures have grown Pseudomonas sensitive to cefepime, Coag negative Staphylococcus and Corynbact.sp not urealyticum sensitive to Daptomycin and Vancomycin, and Citrobacter farmeri sensitive to cefepime -S/P one dose of Cefepime in the ED, will continue with Cefepime and Daptomycin for now, follow urine and blood cutlures and tailor abx accordingly -Urology has been consulted due to his complex urologic history -Will give 1L LR at 80 mL/hr x 1 bag -BL SCD's and Eliquis for DVT PPX -AM CBC, CMP, PT/INR (2) Confusion: Plan: -At this time the patient's confusion is most likely associated with his acute UTI, GIOVANY, and dehydration due to recent diarrhea -No focal neuro defects, patient has presented like this on previous admissions with UTI -Fall precautions, aspiration precautions, bedside dysphagia screen ordered -Continue to monitor mental status with treatment of his acute issues (3) Elevated troponin: Plan: -Initial high sen trop elevated at 24 -ECG read listed possible inferior infarct but these is extensive artifact and no significant ST segment or T-wave changes on my read -Patient is asymptomatic -Will repeat a 2 hour high sen trop STAT -Continue to monitor on tele (4) GIOVANY (acute kidney injury): Plan: -Cr noted to be 3.0 today, baseline appears closer to 1.5-1.6 -CT of the abd/pelvis show his ureteral stents to be in adequate position with stable moderate right and severe left hydronephrosis -GIOVANY likely due to dehydration, current UTI, and could also have been exacerbated with recent Bactrim therapy -Avoid Nephrotoxic agents, monitor intake and output, new myles placed in ED -Urology consulted -Monitor daily renal function and electrolytes (5) Paroxysmal atrial fibrillation: Plan: -Minimally tachycardic in the low 100's at the time of the admission -Will give his am dose of Carvedilol now as he did not have it earlier today -Continue carvedilol and Eliquis (6) Diarrhea: Plan: -Patient's family notes 4 days of 3-4 non-bloody bowel movements daily -CT fo the abd/pelvis show Constipation with possible mild stercoral proctitis, similar to the prior study and no signs of bowel obstruction -Could be infectious but could also be due to his stercoral colitis and constipation -Will continue oral bowel regimen with BID colace and daily miralax and will give a tap water enema now, continue to monitor for consistent bowel movements -Stool studies ordered by the ED, continue to follow (7) Chronic diastolic heart failure: Plan: -Appears Euvolemic on exam -Will continue with 1 bag of LR at 80 mL/hr on admission -If he passes his bedside dysphagia screen will start a diet (8) Hypothyroidism: Plan: -Will obtain TSH -Continue levothyroxine (9) Dementia: Plan: -Continue Namenda Plan the patient was discussed with Dr. Arce at the time of the admission History of Present Illness Chief Complaint: Urinary Symptoms Primary Care Provider: DO Alfredo Soto Merrill is an 82 year old male with a PMH significant for dementia, COPD, BL ureteral stent placement by Dr. Medrano in February, Aortic stenosis, chronic suprapubic catheter with history of multiple Drug resistant UTI's, HFrEF (LVEF of 45-50%. Grade I diastolic dysfunction, paroxysmal atrial fibrillation on Eliquis, severe aortic stenosis as of 09/30/21), hypothyroidism, chronic pain, dyslipidemia, nocturnal hypoxemia who presented to the [facility] ED on 05/15/22 with a chief complaint of urinary symptoms. In the ED the patient was found to be afebrile, hemodynamically stable, and stable on RA. Labs were remarkable for a WBC of 11.84 with absolute neutrophils of 7.42, stable Hgb and platelets, Cr of 3.02 (baseline appears to be between 1/5-1.6), chloride of 111, BUN of 41, initial high sen trop of 24.3, procal < 0.05, UA with 2+ protein, 3+ blood, 3+ leukocyte esterase, >30 RBC and WBC, 4+ bacteria, and budding w/hyphae A, and covid negative. Chest xray was read as "Interstitial opacities are seen without evidence of acute abnormality. Stable cardiomegaly.". CT of the head was read as "No acute intracranial hemorrhage, no evidence of acute territorial infarction or other acute intracranial disease process.". CT of the abdomen/pelvis wo contrast was read as "1. Unchanged moderate right and severe left hydronephrosis with stable positioning of the ureteral stents. 2. There is a punctate stone within the lower pole of the right kidney. No ureteral stones identified. 3. Bladder wall thickening with adjacent fat stranding, unchanged. The bladder is decompressed by suprapubic catheter. Recommend correlation with urinalysis to exclude a cystitis. 4. Constipation with possible mild stercoral proctitis. This is similar to the prior study. 5. No evidence for a bowel obstruction. 6. Interstitial thickening with patchy irregular groundglass densities at the lung bases. This is slightly progressed and may represent pulmonary edema or an atypical pneumonitis on the background of chronic interstitial change. 7. Additional findings as described above.". Priro to admission the patient was given a dose of Cefepime and 250 mL of LR. At the time of the exam the patient was lying in bed in no acute distress, saturating at 95% on RA. He is unable to give much of a history based on his acute confusion on top of his baseline dementia. He can only tell me that he is experiencing some upper abdominal discomfort at this time. I called and spoke with his and Daughter. They state that the patient started to acute more confused and fatigued approximately 3 days ago. He was also developed 3-4 non- bloody episodes of diarrhea daily over this time. He completed a 3 day course of PO Bactrim outpatient as his PCP thought he may be developing another UTI. His states that the patient's urine has been darker than normal over the past few days. They deny any other issues at this time. When asked, they state that the patient did not have any of his am medications prior to coming to the hospital. Please refer to Dr. Arce's attestation for any changes to the treatment plan Allergies Allergy/AdvReac Type Severity Reaction Status Date / Time captopril Allergy Severe Anaphylaxis Verified 02/05/22 17:27 morphine Allergy Severe Anaphylaxis Verified 02/05/22 21:27 oxaprozin Allergy Severe Anaphylaxis Verified 02/05/22 17:27 torsemide Allergy Severe Anaphylaxis Verified 02/05/22 17:27 hydrocodone Allergy Mild Rash Verified 02/05/22 17:27 Home Medications Medication Instructions Recorded Confirmed Type folic acid 1 mg tablet 1 mg PO QAM #90 tabs 10/04/19 05/15/22 Rx albuterol sulfate 90 mcg/actuation 2 puff inhalation Q6H PRN 07/09/20 05/15/22 Rx aerosol inhaler (Ventolin HFA) cough/wheeze/shortness of breath #1 inhaler cyanocobalamin (vitamin B-12) 1,000 mcg PO QAM 07/16/20 05/15/22 History 1,000 mcg tablet ferrous sulfate 325 mg (65 mg 325 mg PO QAM 07/16/20 05/15/22 History iron) tablet,delayed release polyethylene glycol 3350 17 gram 17 g PO DAILY PRN Constipation 07/16/20 05/15/22 History oral powder packet (Miralax) ascorbic acid (vitamin C) 500 mg 500 mg PO QAM 10/22/20 05/15/22 History tablet (Vitamin C) docusate sodium 100 mg capsule 100 mg PO BID 10/22/20 05/15/22 History (Stool Softener) albuterol sulfate 2.5 mg/3 mL 2.5 mg (3 mL) inhalation QID PRN 04/16/21 05/15/22 Rx (0.083 %) solution for nebulization shortness of breath or wheezing #75 mL ipratropium 0.5 mg-albuterol 3 mg 3 ml inhalation Q6H PRN wheezing 06/20/21 05/15/22 Rx (2.5 mg base)/3 mL nebulization #90 mL soln tramadol 50 mg tablet 50 mg PO TID PRN Pain #30 tabs 09/03/21 05/15/22 Rx memantine 10 mg tablet (Namenda) 10 mg PO BID #180 tabs 09/09/21 05/15/22 Rx donepezil 10 mg tablet 10 mg PO HS #90 tabs 09/23/21 05/15/22 Rx calcium carbonate 500 mg-vitamin 1 tab PO DAILY 09/29/21 05/15/22 History D3 5 mcg (200 unit) tablet levothyroxine 112 mcg tablet 112 mcg PO HS #90 tabs 01/15/22 05/15/22 Rx (Synthroid) famotidine 40 mg tablet (Pepcid) 40 mg PO DAILYBB #90 tabs 01/20/22 05/15/22 Rx apixaban 2.5 mg tablet (Eliquis) 2.5 mg PO BID #180 tabs 02/24/22 05/15/22 Rx bupropion HCl 100 mg tablet,12 hr 100 mg PO BID #60 ea 02/24/22 05/15/22 Rx sustained-release gabapentin 300 mg capsule 300 mg PO HS #90 caps 02/24/22 05/15/22 Rx isosorbide mononitrate 30 mg 30 mg PO QAM #90 tabs 03/03/22 05/15/22 Rx tablet,extended release 24 hr tamsulosin 0.4 mg capsule 0.4 mg PO HS #90 caps 03/27/22 05/15/22 Rx simvastatin 80 mg tablet 80 mg PO HS #90 tabs 04/14/22 05/15/22 Rx bethanechol chloride 50 mg tablet 50 mg PO QID #360 tabs 04/28/22 05/15/22 Rx potassium chloride 20 mEq 20 meq PO DAILY #30 tabs 05/14/22 05/15/22 Rx tablet,extended release acetaminophen 325 mg tablet 325 mg PO Q4 PRN pain 05/15/22 05/15/22 History carvedilol 6.25 mg tablet 6.25 mg PO BIDWMEAL #180 tabs 05/15/22 Rx Past Med/Surg History Medical History Acute kidney injury Anemia Anticoagulant long-term use Anxiety and depression Aortic stenosis Mild (MG 11 mmHg, UZMA 1.1 cm2) per 11/2015 ECHO. Valve not well visualized on echo 03/22/20. Aortic stenosis Severe per 09/30/21 ECHO UZMA 0.8cm Atrial fibrillation dx 2017 >on Eliquis, no cardioversions Avascular necrosis of bone of left hip (~05/2020) severe avascular necrosis and severe osteoarthritis to left hip joint with moderate advanced right hip osteoarthritis Bilateral renal masses BPH w urinary obs/LUTS CAD (coronary artery disease) Multiple cardiac stents (x4 total)- most recent 3+ years ago 1997- LCx- stent Most recent cath 2013 per cardio records "LAD okay, LCX OM 30, RCA ok, NL EF" CAD (coronary artery disease), [place] coronary artery S/P BMS to OM (1997). Caths also 2006, 2008 and 2013, no stents placed. Most recent cath in 2013 showed no angiographically significant stenosis other than 20-30% in-stent restenosis of OM. Cardiac pacemaker in situ Implanted 2008 (03/[address] [employer]fo. Replaced 2016. > Last pacer check 04/10/20 [facility] > Dr. 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 On donepezil and memantine, follows with neurology Dyslipidemia Edema of both upper extremities Elevated troponin Facial droop GERD (gastroesophageal reflux disease) controlled Hematuria History of kidney stones History of [place] (myocardial infarction) 1997- Follows with Dr. Hodge/[facility] History of recent hospitalization Admitted to [facility] 07/10/21-07/14/21- for staph bacteremia secondary to infected wound at suprapubic catheter site, UTI, acute metabolic encephalopathy; per 08/09/21 neuro note- bacteremia resolved with abxs, acute metabolic encephalopathy resolved, mental status back to baseline, UTI/GIOVANY resolved after abx. 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 Suprapubic catheter In place secondary to neurogenic bladder UTI (urinary tract infection) Wheezing Surgical History H/O total knee replacement R/L History of back surgery MULTIPLE History of cardiac cath Multiple cardiac stents (x4 total)- most recent 3+ years ago History of carpal tunnel release of both wrists History of cataract surgery B/L History of colonoscopy History of lithotripsy History of lumbar fusion History of prostate surgery Partial prostatectomy History of thyroidectomy secondary to goiter History of tooth extraction All teeth S/P cystoscopy with ureteral stent placement last 05/2021 @ [facility] Dr. William Medrano- Cystoscopy, Bilateral retrograde pyelogram, Bilateral ureteral stent exchange, Left aspiration and culture S/P TURP S/P ureteral stent placement Cysto, B/L RPG, right ureteroscopy, stent exchange: 07/06/18: LMA#5 at [facility] Cysto stent exchange (11/2018) Cystoscopy, stent exchange, suprapubic catheter (04/30/20): MAC at [facility] S/P ureteral stent placement Family History Father Diabetes Mother Coronary heart disease Hypertension Brother Seizure Other No family history of adverse response to anesthesia Denies family history of Ovarian cancer Prostate cancer Myocardial infarction Breast cancer Colorectal cancer Social History Smoking Status: Former smoker Tobacco Type: Cigarettes Age Started Using Tobacco: 15; Age Quit Using Tobacco: 59; packs per day: 2; Second Hand Exposure: No; Hx Alcohol Use: No Hx Substance Use: No Preferred Language: Andorran Communication Ability: Effective Communication Ability Comment: "some things he will remember/some wont" per can sign own consent Visual Impairment: No Limitations Hearing Ability: Hard of Hearing Hairspring Studder Required: No Beliefs That Will Affect Care: None marital status: Current Living Situation: Spouse and Family Current Living Situation Comment: home with spouce and 2 daughters current occupational status: retired How many Children do You have: 3 Other Information That Helps Us Care for You: No Feels Safe at Home: Yes Safety Concerns: Feels Safe At This Time Childhood Exposure to Second-Hand Smoke: No caffeine: Yes (Coffee 3 per day.) during the past year weight has: remained stable Dental Care, Regularly: No Physical Activity Frequency: Does not Exercise Seatbelt Use: always Sunscreen Use: No Assistive Devices: Hospital Bed, Mechanical Lift and Wheelchair Physical Exam Physical Exam: Physical Exam: General: In no acute distress, stated age, chronically ill appearing HEENT: Normocephalic, atraumatic, no scleral icterus, pupils around round, symmetrical, and reactive to light, moist mucus membranes, trachea midline, no thyromegaly Chest/Pulm: No respiratory distress, symmetrical chest expansion, scattered rhonchi and wheezing throughout Cardiac: RRR, systolic murmur noted Abdomen: Negative for ascites and bruising, normoactive bowel sounds, soft, mildly tender to palpation in the lower and mid abdominal kang, no rebound tenderness : Patient with new myles replaced in the ED, currently with pustulous drainage in and around the myles insertion site, the patient is tender to palpation in the suprapubic area Musculoskeletal: Symmetrical and without signs of acute trauma, upper and lower extremities with full ROM, no atrophy, spasticity, or flaccidity Extremities: Radial, dorsalis pedis, and posterior tibial pulses are intact and symmetrical, no edema noted in the BL LE's Skin: Warm, dry, no rashes , lesions, or scars noted Neuro: Alert and oriented to person only, no focal defects, CN II-XII tested and intact, mild tremor noted Psych: No acute distress, pleasantly confused, calm and cooperative during the exam Results & Data Results & Data Vital Signs (Past 12 Hours) Vital Signs Pulse Pulse Resp BP BP Pulse Ox O2 Del Method 05/15/22 14:50 82 16 100 05/15/22 14:40 70 18 05/15/22 14:31 69 20 05/15/22 14:31 69 20 161/67 H 100 05/15/22 14:30 71 15 05/15/22 14:26 69 15 05/15/22 14:26 69 15 148/80 H 98 05/15/22 14:20 70 21 05/15/22 14:10 70 19 05/15/22 14:00 69 17 05/15/22 13:50 70 19 05/15/22 13:40 71 18 05/15/22 13:20 32 H 79 L 05/15/22 13:10 70 16 100 05/15/22 13:06 70 19 100 05/15/22 14:17 70 17 148/80 H 100 Nasal Cannula 05/15/22 13:13 71 05/15/22 12:17 20 99 Nasal Cannula 05/15/22 12:17 72 18 123/74 95 Nasal Cannula O2 Flow Rate 05/15/22 14:50 05/15/22 14:40 05/15/22 14:31 05/15/22 14:31 05/15/22 14:30 05/15/22 14:26 05/15/22 14:26 2 05/15/22 14:20 05/15/22 14:10 05/15/22 14:00 05/15/22 13:50 05/15/22 13:40 05/15/22 13:20 05/15/22 13:10 05/15/22 13:06 05/15/22 14:17 2 05/15/22 13:13 05/15/22 12:17 05/15/22 12:17 2 Laboratory Results Abnormal lab results 05/15/22 05/15/22 05/15/22 Range/Units 12:53 12:53 13:49 WBC 11.84 H (4.8-10.8) K/ul RBC 3.40 L (4.70-6.10) M/uL Hgb 9.8 L (14.0-18.0) g/dl Hct 31.9 L (42.0-52.0) % MCHC 30.7 L (32.0-36.0) g/dL RDW Std Deviation 59.0 H (36.4-46.3) fL RDW Coeff of Curtis 17.1 H (11.5-14.5) % Neut # (Auto) 7.42 H (1.40-6.50) K/uL [place] # (Auto) 1.42 H (0.11-0.59) K/uL Chloride 111 H (98-107) mmol/L BUN 41 H (6-23) mg/dl Creatinine 3.02 H (0.6-1.4) mg/dl Troponin I High Sens 24.3 H (0-20) pg/ml Albumin 3.0 L (3.4-5.0) gm/dl Albumin/Globulin Ratio 0.8 L (0.9-2) Urine Protein 2+ H (Negative) Urine Blood 3+ H (Negative) Ur Leukocyte Esterase 3+ H (Negative) Urine RBC >30 H (0-4) /hpf Urine WBC >30 H (0-5) /hpf Urine Bacteria 4+ H (Negative) Urine Yeast Budding w/ Hyphae A (None Prsent) Diagnostic Findings Abdomen/Pelvis CT 05/15/22 12:[address] WITHOUT CONTRAST CT DOSE: HISTORY: L abd pain, confusion, chronic myles TECHNIQUE: Multiaxial CT images of the abdomen and pelvis were performed without contrast. A dose lowering technique was utilized adhering to the principles of ALARA. COMPARISON STUDY: Abdomen and pelvis CT 02/05/2022. FINDINGS: Interstitial thickening with patchy irregular groundglass densities at the lung bases. This is slightly progressed and may represent pulmonary edema or an atypical pneumonitis on the background of chronic interstitial change. There is a trace left pleural effusion. Pacemaker wires are noted. No pneumoperitoneu m. No pneumatosis. Moderate right and left hip osteoarthritis again noted. Posterior decompression within the lower lumbar spine. No acute fractures identified. Small fat-containing bilateral inguinal hernias. Partially visualized penile implant is noted. Diffuse muscular atrophy again noted. Cholecystectomy. The unenhanced liver, pancreas, and adrenal glands unremarkable. Multiple calcified splenic granulomas. Bilateral ureteral stents appear and good position. There is a punctate stone within the lower pole of the right kidney. No left renal calculi. Moderate right and severe left hydronephr osis to the level of the ureteropelvic junctions persists. No retroperitoneal lymphadenopathy. Calcified plaque within the normal caliber abdominal aorta. No pelvic lymphadenopathy or pelvic free fluid. The bladder is decompressed by suprapubic catheter. Mild bladder wall thickening with adjacent fat stranding persists. A moderate to large amount of stool and fluid within the distal sigmoid colon and rectum with mild wall thickening. This raises the possibility of a mild stercoral proctitis. No evidence for bowel obstruction. Moderate well- formed stool seen throughout the remaining colon. Normal appendix. IMPRESSION: 1. Unchanged moderate right and severe left hydronephrosis with stable positioning of the ureteral stents. 2. There is a punctate stone within the lower pole of the right kidney. No ureteral stones identified. 3. Bladder wall thickening with adjacent fat stranding, unchanged. The bladder is decompressed by suprapubic catheter. Recommend correlation with urinalysis to exclude a cystitis. 4. Constipation with possible mild stercoral proctitis. This is similar to the prior study. 5. No evidence for a bowel obstruction. 6. Interstitial thickening with patchy irregular groundglass densities at the lung bases. This is slightly progressed and may represent pulmonary edema or an atypical pneumonitis on the background of chronic interstitial change.. 7. Additional findings as described above. ACT 112: Negative or not required by law. Electronically signed by: Travis Cabrera M.D. 05/15/2022 1:[address] 05/15/22 12:49 CT head/brain wo con CLINICAL HISTORY: confusion Technique: Contiguous axial CT images of the head were acquired from the base of the skull to the vertex without intravenous contrast administration. Images were viewed in brain, subdural and bone windows. Automated dose lowering techniques and/or adjustment according to patient size were utilized for this exam. Comparison: Comparison is made to CT head 02/28/2022 Findings: Areas of decreased attenuation are present in the periventricular and subcortical white matter bilaterally consistent with small vessel ischemic disease. Generalized cerebral atrophy with commensurate enlargement of the ventricles, sulci, and cisterns is also present. There is no acute intracranial hemorrhage or evidence of acute territorial infarction. No shift of the midline structures, mass effect, or extra-axial abnormalities are shown. Atherosclerotic calcifications are present in the intracranial segments of the internal carotid arteries. Imaged portions of the paranasal sinuses and mastoid air cells are clear. The orbits appear normal. There are no acute fractures of the calvaria or scalp swelling. Impression: No acute intracranial hemorrhage, no evidence of acute territorial infarction or other acute intracranial disease process. ACT 112: Negative or not required by law. Electronically signed by: Negro Etienne M.D. 05/15/2022 1:41 PM Chest X-Ray 05/15/22 14:20 XR chest 1V portable CLINICAL HISTORY: weak TECHNIQUE: Single frontal radiograph of the chest was obtained. Comparison: Comparison is made to chest radiograph 04/08/2021 FINDINGS: Dual lead pacemaker is seen. Cardiomegaly is noted. The aortic arch is calcified. Reticular interstitial opacities are seen. No evidence of pleural effusion or pneumothorax. IMPRESSION: Interstitial opacities are seen without evidence of acute abnormality. Stable cardiomegaly. ACT 112: Negative or not required by law. Electronically signed by: Negro Etienne M.D. 05/15/2022 2:36 PM ECG Additional Comments: Poor data quality, interpretation may be adversely affected Accelerated Junctional rhythm Left axis deviation Inferior infarct , age undetermined Abnormal ECG When compared with ECG of 05-FEB-2022 14:29, Junctional rhythm has replaced Sinus rhythm Inferior infarct is now Presen Code Status & VTE Plan Code Status DNR/DNI VTE Prophylaxis Plan VTE Prophylaxis will be ordered: Yes Supervising Physician Co-Signing Physician Notes I personally saw and examined the patient. I verified all delaney points and agree with Ludwin Hale PA-C with the following exceptions and/or additions: 81 year old male presents with acute confusion and fatigue. Unable to get any history from patient - he has no complaints at this time. Please refer to history above. O/E HS RRR, no murmurs, Chest CTAB, Abdo - mild tenderness around suprapubic catheter site, otherwise non-tender and no guarding or rebound tenderness A/P Complicated UTI in setting of suprapubic catheter - consult urology, daptomycin (avoid vancomycin due to elevated Cr) and cefepime for empiric coverage based on prior cultures. Follow up urine and blood cultures. Elevated Cr - Not diagnostic of GIOVANY but certainly off baseline. Agree with LR. Avoid NSS due to hyperchloremia. PG Care Time/CCT Total # of Minutes Spent Total Time Spent with Patient: Total time spent is greater than 50% in coordination of care (as documented) at patient's floor/unit and/or counseling patient: Coding [place] [address] INT INP/OBS CARE 3/75MIN Patient Type Established Medical Decision Making High Complexity Diagnoses Acute UTI N39.0 Confusion R41.0 Elevated troponin R77.8 GIOVANY (acute kidney injury) N17.9 Paroxysmal atrial fibrillation I48.0 Diarrhea R19.7 Chronic diastolic heart failure I50.32 Hypothyroidism E03.9 Hypothyroidism type: acquired Dementia F03.90 (8) Hypothyroidism Hypothyroidism type: acquired Qualified Code(s): E03.9 - Hypothyroidism, unspecified
[2022-05-15] MEDS ORDERED: carvediloL 3.125 MG TAB PO ONE (16:07)
[2022-05-15] MEDS ORDERED: LACTATED RINGER'S 1,000 ML IV SCH (16:15)
--- NOTE | 2022-05-15 16:49 | Electrocardiogram Report ---
Test Reason : Blood Pressure : / mmHG Vent. Rate : 071 BPM Atrial Rate : 357 BPM P-R Int : 000 ms QRS Dur : 088 ms QT Int : 404 ms P-R-T Axes : 000 -38 082 degrees QTc Int : 439 ms Poor data quality, interpretation may be adversely affected Sinus rhythm Left axis deviation Diffuse Minor Nonspecific T wave abnormality Abnormal ECG When compared with ECG of 05-FEB-2022 14:29, No significant change Confirmed by Marv López ([id number]) on 05/15/2022 4:49:19 PM Referred By: Confirmed By:Marv López
[2022-05-15] MEDS: DAPTOmycin 275 MG in SYRINGE 0 ML IV SCH (17:20)
--- NOTE | 2022-05-15 17:24 | Anesthesiology Consultation ---
Date of Service May 15, 2022 Assessment & Plan Chart Review Chart Review: entry examiner initiated History Surgery Operation Date: 05/16/22 08:20 Proposed Procedures p Cystoscopy Bilateral Stent Exchange - William Medrano DO Height/Weight Height: 5 ft 7 in Weight: 72 kg Allergies Allergy/AdvReac Type Severity Reaction Status Date / Time captopril Allergy Severe Anaphylaxis Verified 02/05/22 17:27 Iodinated Contrast Media Allergy Severe Anaphylaxis Verified 02/05/22 17:27 morphine Allergy Severe Anaphylaxis Verified 02/05/22 21:27 oxaprozin Allergy Severe Anaphylaxis Verified 02/05/22 17:27 torsemide Allergy Severe Anaphylaxis Verified 02/05/22 17:27 hydrocodone Allergy Mild Rash Verified 02/05/22 17:27 Medications Home Medications Medication Instructions Recorded Confirmed Last Taken folic acid 1 mg tablet 1 mg PO QAM #90 tabs 10/04/19 05/15/22 02/05/22 albuterol sulfate 90 mcg/actuation 2 puff inhalation Q6H PRN 07/09/20 05/15/22 07/20/20 aerosol inhaler (Ventolin HFA) cough/wheeze/shortness of breath #1 inhaler cyanocobalamin (vitamin B-12) 1,000 mcg PO QAM 07/16/20 05/15/22 02/05/22 1,000 mcg tablet ferrous sulfate 325 mg (65 mg 325 mg PO QAM 07/16/20 05/15/22 02/05/22 iron) tablet,delayed release polyethylene glycol 3350 17 gram 17 g PO DAILY PRN Constipation 07/16/20 05/15/22 Unknown oral powder packet (Miralax) ascorbic acid (vitamin C) 500 mg 500 mg PO QAM 10/22/20 05/15/22 02/05/22 tablet (Vitamin C) docusate sodium 100 mg capsule 100 mg PO BID 10/22/20 05/15/22 02/05/22 08:00 (Stool Softener) albuterol sulfate 2.5 mg/3 mL 2.5 mg (3 mL) inhalation QID PRN 04/16/21 05/15/22 Unknown (0.083 %) solution for nebulization shortness of breath or wheezing #75 mL ipratropium 0.5 mg-albuterol 3 mg 3 ml inhalation Q6H PRN wheezing 06/20/21 05/15/22 Unknown (2.5 mg base)/3 mL nebulization #90 mL soln tramadol 50 mg tablet 50 mg PO TID PRN Pain #30 tabs 09/03/21 05/15/22 02/05/22 08:00 memantine 10 mg tablet (Namenda) 10 mg PO BID #180 tabs 09/09/21 05/15/22 02/05/22 08:00 donepezil 10 mg tablet 10 mg PO HS #90 tabs 09/23/21 05/15/22 02/04/22 calcium carbonate 500 mg-vitamin 1 tab PO DAILY 09/29/21 05/15/22 02/04/22 D3 5 mcg (200 unit) tablet levothyroxine 112 mcg tablet 112 mcg PO HS #90 tabs 01/15/22 05/15/22 02/04/22 (Synthroid) famotidine 40 mg tablet (Pepcid) 40 mg PO DAILYBB #90 tabs 01/20/22 05/15/22 02/05/22 apixaban 2.5 mg tablet (Eliquis) 2.5 mg PO BID #180 tabs 02/24/22 05/15/22 Unknown bupropion HCl 100 mg tablet,12 hr 100 mg PO BID #60 ea 02/24/22 05/15/22 Unknown sustained-release gabapentin 300 mg capsule 300 mg PO HS #90 caps 02/24/22 05/15/22 Unknown isosorbide mononitrate 30 mg 30 mg PO QAM #90 tabs 03/03/22 05/15/22 Unknown tablet,extended release 24 hr tamsulosin 0.4 mg capsule 0.4 mg PO HS #90 caps 03/27/22 05/15/22 Unknown simvastatin 80 mg tablet 80 mg PO HS #90 tabs 04/14/22 05/15/22 Unknown bethanechol chloride 50 mg tablet 50 mg PO QID #360 tabs 04/28/22 05/15/22 U nknown potassium chloride 20 mEq 20 meq PO DAILY #30 tabs 05/14/22 05/15/22 Unknown tablet,extended release acetaminophen 325 mg tablet 325 mg PO Q4 PRN pain 05/15/22 05/15/22 Unknown carvedilol 6.25 mg tablet 6.25 mg PO BIDWMEAL #180 tabs 05/15/22 Unknown Active Medications Generic Name Dose Route Start Last Admin Trade Name Batool PRN Reason Stop Dose Admin Daptomycin 275 mg/ Syringe 5.5 mls @ 2.75 mls/min 05/15/22 16:00 05/15/22 17:20 IV 05/25/22 15:59 2.75 mls/min Q48H FLEX Administration Protocol Lactated Ringer's 1,000 mls @ 80 mls/hr 05/15/22 16:15 05/15/22 16:24 Lr IV 05/16/22 04:44 80 mls/hr .[id number] FLEX Administration Past Medical History Medical History Acute kidney injury Anemia Anticoagulant long-term use Anxiety and depression Aortic stenosis Mild (MG 11 mmHg, UZMA 1.1 cm2) per 11/2015 ECHO. Valve not well visualized on echo 03/22/20. Aortic stenosis Severe per 09/30/21 ECHO UZMA 0.8cm Atrial fibrillation dx 2017 >on Eliquis, no cardioversions Avascular necrosis of bone of left hip (~05/2020) severe avascular necrosis and severe osteoarthritis to left hip joint with moderate advanced right hip osteoarthritis Bilateral renal masses BPH w urinary obs/LUTS CAD (coronary artery disease) Multiple cardiac stents (x4 total)- most recent 3+ years ago 1997- LCx- stent Most recent cath 2013 per cardio records "LAD okay, LCX OM 30, RCA ok, NL EF" CAD (coronary artery disease), [place] coronary artery S/P BMS to OM (1997). Caths also 2006, 2008 and 2013, no stents placed. Most recent cath in 2013 showed no angiographically significant stenosis other than 20-30% in-stent restenosis of OM. Cardiac pacemaker in situ Implanted 2008 (03/[address] Ad[facility]fo. Replaced 2016. > Last pacer check 04/10/20 [facility] > Dr. 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 On donepezil and memantine, follows with neurology Dyslipidemia Edema of both upper extremities Elevated troponin Facial droop GERD (gastroesophageal reflux disease) controlled Hematuria History of kidney stones History of TN (myocardial infarction) 1997- Follows with Dr. Hodge/Kassidy History of recent hospitalization Admitted to [facility] 07/10/21-07/14/21- for staph bacteremia secondary to infected wound at suprapubic catheter site, UTI, acute metabolic encephalopathy; per 08/09/21 neuro note- bacteremia resolved with abxs, acute metabolic encephalopathy resolved, mental status back to baseline, UTI/GIOVANY resolved after abx. 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 Stercoral colitis Suprapubic catheter In place secondary to neurogenic bladder UTI (urinary tract infection) Wheezing Past Family History Family History Father Diabetes Mother Coronary heart disease Hypertension Brother Seizure Other No family history of adverse response to anesthesia Denies family history of Ovarian cancer Prostate cancer Myocardial infarction Breast cancer Colorectal cancer Past Surgical History Surgical History H/O total knee replacement R/L History of back surgery MULTIPLE History of cardiac cath Multiple cardiac stents (x4 total)- most recent 3+ years ago History of carpal tunnel release of both wrists History of cataract surgery B/L History of colonoscopy History of lithotripsy History of lumbar fusion History of prostate surgery Partial prostatectomy History of thyroidectomy secondary to goiter History of tooth extraction All teeth S/P cystoscopy with ureteral stent placement last 05/2021 @ [facility] Dr. William Medrano- Cystoscopy, Bilateral retrograde pyelogram, Bilateral ureteral stent exchange, Left aspiration and culture S/P TURP S/P ureteral stent placement Cysto, B/L RPG, right ureteroscopy, stent exchange: 07/06/18: LMA#5 at [facility] Cysto stent exchange (11/2018) Cystoscopy, stent exchange, suprapubic catheter (04/30/20): MAC at [facility] S/P ureteral stent placement Social History Smoking Status: Current every day smoker tobacco type: cigarettes, pipe and cigars Hx Alcohol Use: No Hx Substance Use: No substance use type: does not use Physical Exam Vital Signs Last Vital Signs Pulse 93 H 05/15/22 16:43 Resp 18 05/15/22 16:43 BP 130/82 05/15/22 16:43 Pulse Ox 94 05/15/22 16:43 O2 Del Method Room Air 05/15/22 16:43 O2 Flow Rate 2 05/15/22 14:26 Testing Laboratory Results 05/15/22 12:53 05/15/22 12:53 PT 11.9 Seconds (9.0-12.0) 05/15/22 12:53 INR 1.1 (0.9-1.1) 05/15/22 12:53 Urine Color Yellow 05/15/22 13:49 Urine Appearance Clear (Clear) 05/15/22 13:49 Urine pH 5.5 (4.5-7.5) 05/15/22 13:49 Ur Specific [place] >= 1.030 (1.000-1.030) 05/15/22 13:49 Urine Protein 2+ (Negative) H 05/15/22 13:49 Urine Glucose (UA) Negative (Negative) 05/15/22 13:49 Urine Ketones Negative (Negative) 05/15/22 13:49 Urine Nitrite Negative (Negative) 05/15/22 13:49 Ur Leukocyte Esterase 3+ (Negative) H 05/15/22 13:49 Urine RBC >30 /hpf (0-4) H 05/15/22 13:49 Urine WBC >30 /hpf (0-5) H 05/15/22 13:49 Ur Epithelial Cells 0-5 /lpf (0-5) 05/15/22 13:49 Electrocardiogram Date: 05/15/22 Poor data quality, interpretation may be adversely affected Sinus rhythm, rate 71 bpm Left axis deviation Diffuse Minor Nonspecific T wave abnormality Abnormal ECG When compared with ECG of 05-FEB-2022 14:29, No significant change Confirmed by Marv López ([id number]) on 05/15/2022 4:49:19 PM Chest X-Ray Date: 05/15/22 FINDINGS: Dual lead pacemaker is seen. Cardiomegaly is noted. The aortic arch is calci fied. Reticular interstitial opacities are seen. No evidence of pleural effusion or pneumothorax. IMPRESSION: Interstitial opacities are seen without evidence of acute abnormality. Stable cardiomegaly. Echocardiogram Date: 04/09/22 LV: The cavity size is normal. Wall thickness is normal. Systolic function is mildly reduced. EF 45-50%. Wall motion is normal; there are no regional wall motion abnormalities. RV: The cavity size is normal. Systolic function is normal. LA: The atrium is mildly to moderately dilated. MV: Mild regurgitation. AV: Moderate stenosis.
[2022-05-15] MEDS ORDERED: traMADol HCL 50 MG TABLET PO PRN (18:39)
[2022-05-15] MEDS ORDERED: ACETAMINOPHEN 325 MG TAB PO PRN (18:39)
[2022-05-15] MEDS ORDERED: ALBUTEROL 0.083% NEBU SOLN 3 ML VIAL INH PRN (18:39)
[2022-05-15] MEDS ORDERED: ALBUT/IPRATROP 3MG/0.5MG NEB 3 ML VIAL INH PRN (18:39)
[2022-05-15] MEDS: ALBUT/IPRATROP 3MG/0.5MG NEB 3 ML VIAL NEB SCH (19:14)
--- NOTE | 2022-05-15 19:58 | Urology Consultation ---
Date of Consultation May 15, 2022 Assessment & Plan (1) Ureteral stent present: The patient has been admitted on the hospitalist service. Concerning the patient's urologic issues we recommend proceeding as follows: Patient has received antibiotics in the form of cefepime and daptomycin for concern for urinary tract infection. Appropriate cultures have been sent and his antibiotics can be further tailored based on these results. It does appear that the patient does have some yeast in his urinalysis from this admission. This has been drawn to the attention of the hospitalist and they will determine if this requires treatment with an antifungal. Due to the patient's history of hydronephrosis and bilateral ureteral stents and the fact that he missed his recent appointment for stent exchange he is tentatively been placed on the operating room schedule for stent exchange tomorrow with Dr. Medrano The patient should be made n.p.o. after midnight Continue patient's suprapubic catheter gravity drainage. If any issues resolved with the drainage this can be manually flushed and irrigated by nursing staff Patient is noted to have acute kidney injury so avoiding nephrotoxins would be advisable along with providing gentle hydration Remainder of plan as directed by the primary service Additional recommendations be forthcoming based on his clinical course as unfolds History of Present Illness Reason for Consultation: Bilateral hydronephrosis with history of bilateral ureteral stents and suprapubic catheter Attending Physician: Wilberto Arce MD History of Present Illness This is an 82-year-old male who was admitted to [facility] today secondary to worsening confusion. Due to the patient's underlying confusion he could not provide much in the way of meaningful history and therefore the HPI was obtained from review of the chart as well as discussion with the patient's via phone. Patient's notes over the past few days the patient has been more confused and his urine has become dark and concentrated. He has also had diarrhea. She notes that he has not had any fevers, shakes, or chills. He has not had any nausea or vomiting and to the best of her knowledge was not complaining of abdominal pain. She does note that he has a history of bilateral ureteral stents and they were supposed to be exchanged on May 12 of this year which was 3 days ago but they did not make this appointment. Records were reviewed and this patient has chronic obstructive issues with ureteral stents in place along with a suprapubic catheter. Patient's most recent urologic procedure was on 02/10/[address] Medrano performed a cystoscopy with bilateral stent exchange. Since arrival to the hospital day the patient has had labs and imaging which I independent reviewed. Chest x-ray showed interstitial opacities without evidence of pleural effusion or pneumothorax. A CT scan of the head showed no acute intracranial hemorrhage or no acute stroke. A CT scan of the abdomen and pelvis showed that patient had moderate right hydronephrosis and severe left hydronephrosis which appeared unchanged from previous CT scans. He has ureteral stents in place that appear to be satisfactory place. A punctate stone was noted in the lower pole of the right kidney however no ureteral stones were noted. There was bladder wall thickening with adjacent fat stranding. His bladder was decompressed by suprapubic catheter. Constipation with mild sterile coral proctitis was noted. This was felt to be similar to what was noted on prior CT scans. There is no evidence of bowel obstruction. Interstitial thickening and groundglass densities were noted at the base of his lungs which were felt to represent either pulmonary edema or atypical pneumonitis. There is no evidence of pneumoperitoneum or pneumatosis. At the time of my interview the patient was resting comfortably in bed and he was in no distress. Allergies Allergy/AdvReac Type Severity Reaction Status Date / Time captopril Allergy Severe Anaphylaxis Verified 02/05/22 17:27 Iodinated Contrast Media Allergy Severe Anaphylaxis Verified 02/05/22 17:27 morphine Allergy Severe Anaphylaxis Verified 02/05/22 21:27 oxaprozin Allergy Severe Anaphylaxis Verified 02/05/22 17:27 torsemide Allergy Severe Anaphylaxis Verified 02/05/22 17:27 hydrocodone Allergy Mild Rash Verified 02/05/22 17:27 Home Medications Medication Instructions Recorded Confirmed Type folic acid 1 mg tablet 1 mg PO QAM #90 tabs 10/04/19 05/15/22 Rx albuterol sulfate 90 mcg/actuation 2 puff inhalation Q6H PRN 07/09/20 05/15/22 Rx aerosol inhaler (Ventolin HFA) cough/wheeze/shortness of breath #1 inhaler cyanocobalamin (vitamin B-12) 1,000 mcg PO QAM 07/16/20 05/15/22 History 1,000 mcg tablet ferrous sulfate 325 mg (65 mg 325 mg PO QAM 07/16/20 05/15/22 History iron) tablet,delayed release polyethylene glycol 3350 17 gram 17 g PO DAILY PRN Constipation 07/16/20 0 05/15/22 History oral powder packet (Miralax) ascorbic acid (vitamin C) 500 mg 500 mg PO QAM 10/22/20 05/15/22 History tablet (Vitamin C) docusate sodium 100 mg capsule 100 mg PO BID 10/22/20 05/15/22 History (Stool Softener) albuterol sulfate 2.5 mg/3 mL 2.5 mg (3 mL) inhalation QID PRN 04/16/21 05/15/22 Rx (0.083 %) solution for nebulization shortness of breath or wheezing #75 mL ipratropium 0.5 mg-albuterol 3 mg 3 ml inhalation Q6H PRN wheezing 06/20/21 05/15/22 Rx (2.5 mg base)/3 mL nebulization #90 mL soln tramadol 50 mg tablet 50 mg PO TID PRN Pain #30 tabs 09/03/21 05/15/22 Rx memantine 10 mg tablet (Namenda) 10 mg PO BID #180 tabs 09/09/21 05/15/22 Rx donepezil 10 mg tablet 10 mg PO HS #90 tabs 09/23/21 05/15/22 Rx calcium carbonate 500 mg-vitamin 1 tab PO DAILY 09/29/21 05/15/22 History D3 5 mcg (200 unit) tablet levothyroxine 112 mcg tablet 112 mcg PO HS #90 tabs 01/15/22 05/15/22 Rx (Synthroid) famotidine 40 mg tablet (Pepcid) 40 mg PO DAILYBB #90 tabs 01/20/22 05/15/22 Rx apixaban 2.5 mg tablet (Eliquis) 2.5 mg PO BID #180 tabs 02/24/22 05/15/22 Rx bupropion HCl 100 mg tablet,12 hr 100 mg PO BID #60 ea 02/24/22 05/15/22 Rx sustained-release gabapentin 300 mg capsule 300 mg PO HS #90 caps 02/24/22 05/15/22 Rx isosorbide mononitrate 30 mg 30 mg PO QAM #90 tabs 03/03/22 05/15/22 Rx tablet,extended release 24 hr tamsulosin 0.4 mg capsule 0.4 mg PO HS #90 caps 03/27/22 05/15/22 Rx simvastatin 80 mg tablet 80 mg PO HS #90 tabs 04/14/22 05/15/22 Rx bethanechol chloride 50 mg tablet 50 mg PO QID #360 tabs 04/28/22 05/15/22 Rx potassium chloride 20 mEq 20 meq PO DAILY #30 tabs 05/14/22 05/15/22 Rx tablet,extended release acetaminophen 325 mg tablet 325 mg PO Q4 PRN pain 05/15/22 05/15/22 History carvedilol 6.25 mg tablet 6.25 mg PO BIDWMEAL #180 tabs 05/15/22 Rx Patient History Medical History Acute kidney injury Anemia Anticoagulant long-term use Anxiety and depression Aortic stenosis Mild (MG 11 mmHg, UZMA 1.1 cm2) per 11/2015 ECHO. Valve not well visualized on echo 03/22/20. Aortic stenosis Severe per 09/30/21 ECHO UZMA 0.8cm Atrial fibrillation dx 2017 >on Eliquis, no cardioversions Avascular necrosis of bone of left hip (~05/2020) severe avascular necrosis and severe osteoarthritis to left hip joint with moderate advanced right hip osteoarthritis Bilateral renal masses BPH w urinary obs/LUTS CAD (coronary artery disease) Multiple cardiac stents (x4 total)- most recent 3+ years ago 1997- LCx- stent Most recent cath 2013 per cardio records "LAD okay, LCX OM 30, RCA ok, NL EF" CAD (coronary artery disease), grayling coronary artery S/P BMS to OM (1997). Caths also 2006, 2008 and 2013, no stents placed. Most recent cath in 2014 showed no angiographically significant stenosis other than 20-30% in-stent restenosis of OM. Cardiac pacemaker in situ Implanted 2008 (03/[address] Adolfo. Replaced 2016. > Last pacer check 04/10/20 [facility] > Dr. 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 On donepezil and memantine, follows with neurology Dyslipidemia Edema of both upper extremities Elevated troponin Facial droop GERD (gastroesophageal reflux disease) controlled Hematuria History of kidney stones History of IL (myocardial infarction) 1997- Follows with Dr. Hodge/Kassidy History of recent hospitalization Admitted to [facility] 07/10/21-07/14/21- for staph bacteremia secondary to infected wound at suprapubic catheter site, UTI, acute metabolic encephalopathy; per 08/09/21 neuro note- bacteremia resolved with abxs, acute metabolic encephalopathy resolved, mental status back to baseline, UTI/GIOVANY resolved after abx. 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 Suprapubic catheter In place secondary to neurogenic bladder UTI (urinary tract infection) Wheezing Surgical History H/O total knee replacement R/L History of back surgery MULTIPLE History of cardiac cath Multiple cardiac stents (x4 total)- most recent 3+ years ago History of carpal tunnel release of both wrists History of cataract surgery B/L History of colonoscopy History of lithotripsy History of lumbar fusion History of prostate surgery Partial prostatectomy History of thyroidectomy secondary to goiter History of tooth extraction All teeth S/P cystoscopy with ureteral stent placement last 05/2021 @ [facility] Dr. William Medrano- Cystoscopy, Bilateral retrograde pyelogram, Bilateral ureteral stent exchange, Left aspiration and culture S/P TURP S/P ureteral stent placement Cysto, B/L RPG, right ureteroscopy, stent exchange: 07/06/18: LMA#5 at [facility] Cysto stent exchange (11/2018) Cystoscopy, stent exchange, suprapubic catheter (04/30/20): MAC at [facility] S/P ureteral stent placement Family History Father Diabetes Mother Coronary heart disease Hypertension Brother Seizure Other No family history of adverse response to anesthesia Denies family history of Ovarian cancer Prostate cancer Myocardial infarction Breast cancer Colorectal cancer Social History Smoking Status: Former smoker Tobacco Type: Cigarettes Age Started Using Tobacco: 15; Age Quit Using Tobacco: 59; packs per day: 2; Second Hand Exposure: No; Hx Alcohol Use: No Hx Substance Use: No Preferred Language: Thai Communication Ability: Unable Communication Ability Comment: "some things he will remember/some wont" per can sign own consent Visual Impairment: No Limitations Hearing Ability: Hard of Hearing 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 Beliefs That Will Affect Care: None marital status: Current Living Situation: Spouse and Family Current Living Situation Comment: home with spouce and 2 daughters current occupational status: retired How many Children do You have: 3 Other Information That Helps Us Care for You: No Feels Safe at Home: Yes Safety Concerns: Feels Safe At This Time Childhood Exposure to Second-Hand Smoke: No caffeine: Yes (Coffee 3 per day.) during the past year weight has: remained stable Dental Care, Regularly: No Physical Activity Frequency: Does not Exercise Seatbelt Use: always Sunscreen Use: No Assistive Devices: Lift Chair, Oxygen - at Night and Wheelchair Review of Systems Review of Systems: Unobtainable due to cognitive status Physical Exam Constitutional: WD/WN, vitals as above Eyes: no conjunctival abnormality ENMT: Ears: no hearing impairment and no external ear abnormality Mouth: no oropharynx abnormality Neck: trachea midline Respiratory: normal respiratory effort; no respiratory distress and no labored breathing Cardiovascular: Rate/Rhythm: regular rate and regular rhythm Gastrointestinal (Abdomen): Abdomen is soft, nonrigid, nondistended. The patient has a suprapubic catheter in place. There is no pain with palpation near the suprapubic catheter insertion point. Musculoskeletal: No lower extremity edema. Skin: no rashes Neurologic: moves all extremities Results & Data Vital Signs (Past 12 Hours) Vital Signs Pulse Pulse Resp BP BP Pulse Ox O2 Del Method 05/15/22 19:21 Nasal Cannula 05/15/22 19:14 72 20 99 Nasal Cannula 05/15/22 19:03 72 05/15/22 17:28 94 H 20 132/77 94 Nasal Cannula 05/15/22 16:43 93 H 18 130/82 94 Room Air 05/15/22 14:50 82 16 100 05/15/22 14:40 70 18 05/15/22 14:31 69 20 05/15/22 14:31 69 20 161/67 H 100 05/15/22 14:30 71 15 05/15/22 14:26 69 15 05/15/22 14:26 69 15 148/80 H 98 05/15/22 14:20 70 21 05/15/22 14:10 70 19 05/15/22 14:00 69 17 05/15/22 13:50 70 19 05/15/22 13:40 71 18 05/15/22 13:20 32 H 79 L 05/15/22 13:10 70 16 100 05/15/22 13:06 70 19 100 05/15/22 14:17 70 17 148/80 H 100 Nasal Cannula 05/15/22 13:13 71 05/15/22 12:17 20 99 Nasal Cannula 05/15/22 12:17 72 18 123/74 95 Nasal Cannula O2 Flow Rate 05/15/22 19:21 2 05/15/22 19:14 3 05/15/22 19:03 05/15/22 17:28 2 05/15/22 16:43 05/15/22 14:50 05/15/22 14:40 05/15/22 14:31 05/15/22 14:31 05/15/22 14:30 05/15/22 14:26 05/15/22 14:26 2 05/15/22 14:20 05/15/22 14:10 05/15/22 14:00 05/15/22 13:50 05/15/22 13:40 05/15/22 13:20 05/15/22 13:10 05/15/22 13:06 05/15/22 14:17 2 05/15/22 13:13 05/15/22 12:17 05/15/22 12:17 2 PG Care Time/CCT Total # of Minutes Spent Total Time Spent with Patient: Total time spent is greater than 50% in coordination of care (as documented) at patient's floor/unit and/or counseling patient: Coding Level of Care Code 85337 INT INP/OBS CARE 3/75MIN Diagnoses Ureteral stent present Z96.0
[2022-05-15 20:06] LABS: Adenovirus F 40/41 PCR Not Detected (NotDetected); Astrovirus PCR Not Detected (NotDetected); Campylobacter PCR Not Detected (NotDetected); Cryptosporidium PCR Not Detected (NotDetected); Cyclospora cayetanensis PCR Not Detected (NotDetected); Entamoeba histolytica PCR Not Detected (NotDetected); Enteroaggregative E.coli(EAEC) Not Detected (NotDetected); Enteropathogenic E.coli (EPEC) Not Detected (NotDetected); Enterotoxigenic E.coli (ETEC) Not Detected (NotDetected); Giardia lamblia PCR Not Detected (NotDetected); Norovirus GI/GII PCR Not Detected (NotDetected); Plesiomonas shigelloides PCR Not Detected (NotDetected); Rotavirus A PCR Not Detected (NotDetected); Salmonella PCR Not Detected (NotDetected); Sapovirus PCR Not Detected (NotDetected); Shiga-like Toxin E.coli (STEC) Not Detected (NotDetected); Shigella/Enteroinvasive E.coli Not Detected (NotDetected); Vibrio cholerae PCR Not Detected (NotDetected); Vibrio species PCR Not Detected (NotDetected); Yersinia enterocolitica PCR Not Detected (NotDetected)
[2022-05-15] MEDS: LEVOTHYROXINE SODIUM 112 MCG TABLET PO SCH (20:12)
[2022-05-15] MEDS: DONEPEZIL HCL 10 MG TAB PO SCH (20:12)
[2022-05-15] MEDS: buPROPion SR 100 MG TABCR PO SCH (20:12)
[2022-05-15] MEDS: MEMANTINE HCL 10 MG TAB PO SCH (20:13)
[2022-05-15] MEDS: TAMSULOSIN HCL 0.4 MG CAP PO SCH (20:13)
[2022-05-15] MEDS: carvediloL 3.125 MG TAB PO SCH (20:13)
[2022-05-15] MEDS: GABAPENTIN 300 MG CAP PO SCH (20:14)
[2022-05-15] MEDS: DOCUSATE SODIUM 100 MG CAP PO SCH ×2 (20:14)
[2022-05-15] MEDS: BETHANECHOL CHL 25 MG TAB PO SCH ×2 (20:15→22:12)
[2022-05-15] MEDS: CEFEPIME 1,000 MG in SYRINGE 0 ML IV SCH (20:16)
[2022-05-15] MEDS ORDERED: APIXABAN 2.5 MG TAB PO SCH (21:00)
[2022-05-15] MEDS ORDERED: SIMVASTATIN 80 MG TAB PO SCH (21:00)
[2022-05-16] MEDS: FAMOTIDINE 40 MG TABLET PO SCH (05:24)
[2022-05-16] MEDS: ALBUT/IPRATROP 3MG/0.5MG NEB 3 ML VIAL NEB SCH ×4 (07:20→19:19)
[2022-05-16 07:55] LABS: Basophils # (auto) 0.04 K/uL (0-0.2); Basophils % (auto) 0.4 %; Eosinophils % (auto) 0.9 %; Hematocrit (blood only) 29.8 % (42.0-52.0); Hemoglobin 9.4 g/dl (14.0-18.0); Immature Granulocytes # (auto) 0.03 K/uL (0.01-0.20); Immature Granulocytes % (auto) 0.3 %; Lymphocytes # (auto) 2.04 K/uL (1.2-3.4); Lymphocytes % (auto) 19.3 %; Mean Corpuscular Hgb Conc 31.5 g/dL (32.0-36.0); Mean Platelet Volume 10.3 fL (9.4-12.4); Monocytes % (auto) 12.3 %; Neutrophils # (auto) 7.07 K/uL (1.40-6.50); Neutrophils % (auto) 66.8 %; Platelet Count 269 K/uL (130-400); RDW Coefficient of Variation 16.8 % (11.5-14.5); RDW Standard Deviation 57.1 fL (36.4-46.3); Red Blood Count 3.24 M/uL (4.70-6.10); White Blood Count 10.58 K/ul (4.8-10.8)
[2022-05-16] MEDS ORDERED: PROPOFOL IV EMULSION 10 MG/ML 20 ML VIAL IV ONE (08:03)
[2022-05-16] MEDS ORDERED: LIDOCAINE 2% MPF LOCAL 5 ML VIAL ONE (08:03)
[2022-05-16] MEDS ORDERED: fentaNYL citrate PF 100 MCG/2 ML VIAL ONE (08:04)
--- NOTE | 2022-05-16 08:05 | Urology Progress Note ---
Date of Service May 16, 2022 Assessment & Plan (1) Acute UTI: (2) GIOVANY (acute kidney injury): (3) Ureteral stent present: (4) Chronic suprapubic catheter: Plan 82-year-old male with a hx of baseline dementia admitted with suspected UTI, AMS, GIOVANY. Hx of chronic obstruction managed with b/l ureteral stents and suprapubic catheter. Last stent exchange was on 02/10/2022 He is afebrile and hemodynamically stable. Lab work reviewedcreatinine up to 3.02, WBC 10.58, hemoglobin 9.4. CT A/P reviewed and shows unchanged moderate right and severe left hydroureteronephrosis, ureteral stents in good position, punctate right renal stone, bladder wall thickening. Urine and blood cultures are pending. On Cefepime and Daptomycin. Continue antibiotics and narrow per sensitivities when available. Patient is due for bilateral ureteral stent exchange. Discussed this with the patients who verbalized understanding and verbally agreed to proceed with bilateral stent exchange today. Risks and benefits discussed as per consent. Plan for cystoscopy with bilateral stent exchange. Attending Note: Independently assessed and examined. Agree with above. GIOVANY on CKD with chronic obstruction and confusion. Plan for cystoscopy with bilateral stent exchange. Risks and benefits discussed at length for procedure. These include bleeding, infection, injury to surrounding tissues or organs, and risks associated with anesthesia. Patient states understanding and agrees to proceed. Will sign consent and proceed. Phone Consent by Anabelle Momin. Agree to proceedu. Admission and Anticipated Discharge Date Admission Date: May 15, 2022 Subjective Patient examined at bedside this AM. Awake, resting in bed on arrival. No acute distress. Pleasantly confused. Denies any pain or discomfort. No fevers. Has been NPO. Suprapubic catheter intact, draining pink-tinged urine. Review of Systems Constitutional: as per Subjective / HPI Genitourinary: + as per Subjective / HPI Neurologic: as per Subjective / HPI Physical Exam Constitutional: Pleasantly confused. No acute distress. Chronically ill-appearing. Respiratory: no respiratory distress and no labored breathing Skin: no rashes, warm and dry Neurologic: awake Psychiatric: Orientation: alert Genitourinary: Suprapubic catheter intact Results & Data Vital Signs (Past 12 Hours) Vital Signs Temp Pulse Pulse Resp BP Pulse Ox O2 Del Method 05/16/22 07:20 80 18 94 Room Air 05/16/22 04:00 36.8 C 72 18 111/73 100 Nasal Cannula 05/16/22 00:00 69 05/15/22 23:25 36.8 C 82 18 108/62 100 Nasal Cannula 05/15/22 19:59 36.6 C 72 18 133/67 99 Nasal Cannula O2 Flow Rate 05/16/22 07:20 05/16/22 04:00 2 05/16/22 00:00 05/15/22 23:25 2 05/15/22 19:59 3 PG Care Time/CCT Total # of Minutes Spent Total Time Spent with Patient: Total time spent is greater than 50% in coordination of care (as documented) at patient's floor/unit and/or counseling patient: Coding Level of Care Code 27578 SUB INP/OBS CARE 2/35MIN Diagnoses Acute UTI N39.0 GIOVANY (acute kidney injury) N17.9 Ureteral stent present Z96.0 Chronic suprapubic catheter Z93.59
[2022-05-16 08:13] LABS: Albumin Globulin Ratio 0.7 (0.9-2); Albumin Level 2.8 gm/dl (3.4-5.0); BUN Creatinine Ratio 14.5 (10-20); Bilirubin,Total 0.3 mg/dl (0.2-1.0); Calcium 8.6 mg/dl (8.6-10.3); Creatinine Clr Calc Pharmacy 18.6 ml/min; Est GFR (African American) 22.9 ml/min; Est GFR (Non-African American) 19.8 ml/min; Globulin 3.9 gm/dl (2.5-4.0); Magnesium 2.4 mg/dl (1.7-2.4); Potassium 3.9 mmol/L (3.5-5.1); Total Protein 6.7 gm/dl (6.0-8.3)
[2022-05-16] MEDS ORDERED: FLUCONAZOLE 200 MG/100 ML BAG IV STA (08:27)
[2022-05-16] MEDS ORDERED: ePHEDrine sulfate 50 MG/ML AMP IV PRN (08:30)
[2022-05-16] MEDS ORDERED: ATROPINE SULFATE 0.1 MG/ML 10ML SYR IV PRN (08:30)
[2022-05-16 08:47] LABS: INR 1.2 (0.9-1.1); Prothrombin Time 12.6 Seconds (9.0-12.0)
[2022-05-16] MEDS ORDERED: ePHEDrine sulfate 50 MG/ML SYR ONE (09:08)
[2022-05-16] MEDS ORDERED: PHENYLEPHRINE 100MCG/ML 5ML SYR ONE (09:08)
--- NOTE | 2022-05-16 09:35 | Operative Report ---
PG Post Operative Report Pre & Post Diagnosis Operation Date: 05/16/22 08:20 Pre-Op Diagnosis: Hydronephrosis, Bilateral Post-Op Diagnosis: Same I identified the patient and participated in the time-out.: Yes Procedure Operation Date: 05/16/22 08:20 Actual Procedures p Cystoscopy with urethral dilation and Irrigation/evacuation of bladder. Suprapubic and urethral catheter placement. Bilateral retrograde pyelogram and Bilateral Stent Exchange(Not Applicable) - William Medrano DO Surgeon William Medrano, II, DO Rn Imcu None Estimated Blood Loss 1 Findings Consistent with Post-Op Diagnosis Stents exchanged and placed in good position. Large debris in bladder. Large sediment and debris draining from right kidney after stent exchange. 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 CBI attached to SP Tube for drainage. Specimens None Drains 7 Fr x 24 bilateral 20 Fr Silicon SP tube 16 Fr [place] tip catheter. Anesthesia Type MAC Complications none Disposition Disposition: Recovery Room Indications Patient with obstruction with chronic stent changes. Developed ill feelings and increasing hydro with confusion. Was due to stent exchange. Risks and benefits discussed at length. Description of Procedure Patient was consented and brought back to the operating room. Patient was placed under anesthesia in the supine position and moved to the dorsal lithotomy position. Patient was prepped and draped in the regular sterile fashion. A time out was completed. A 30degree Cystoscope was placed into the urethra and advanced. A mild area of narrowing was noted in the bulbar urethra. This was dilated. The scope was then advanced to the bladder and the entire bladder was examined. The UO's were identified. A large amount of debris and sediment was found in the bladder. Numerous irrigations were necessary to clear a majority of the debris. The SP tube was allowed to drain during the process to help eliminate the debris in the bladder. The left stent was grasped and partially removed. A wire was then placed and the stent fully removed. The UO was cannulized over the wire with a dual lumen catheter and a retrograde pyelogram was completed. The wire was maintained and the catheter removed. With the wire in place, a 6 Fr Double J stent was placed. It was confirmed with fluoroscopy. This was then completed for the right stent. After exchange of the right stent, a large amount of cloudy white debris and possibly purulent urine was drained. The pyelogram did seem to have material on the right side, likely the debris. This was flushed from the bladder but due to the large amount, it was decided to utilize the SP tube for continuous drainage to flush the system. The suprapubic catheter tube was deflated and removed. The area had been prepped and draped in the standard sterile fashion. A new 20 Fr Silicon catheter was placed, and the bladder was emptied. The scope was removed After placing a wire in the bladder. Over the wire a 16 Fr [place] tip catheter was placed. This was attached to the bag and the suprapubic catheter was attached to saline irrigation. The patient was cleaned, aroused from anesthesia, and transferred to the pacu in stable condition having tolerated the procedure well with no complications. I was present and participated in all aspects of the procedure. The patient will be monitored in the PACU until transferred. Will monitor with hospitalist team overnight. Difficult to determine if patient dealing with acute on chronic infection or colonization from bacteria. Large debris in right kidney may have been due to yeasts. May not need significant antibiotic coverage if able to have adequate drainage and irrigation moving forward. Patient should followup with ID for management of Chronic Colonization issues due to severe recurrent issues. Will maintain CBI over night to flush system and can utilized CBI for antifungal irrigation if needed. I attest to the content of the Intraoperative Record and any orders documented therein. Any exceptions are noted below.
--- NOTE | 2022-05-16 09:59 | Anesthesiology Progress Note ---
Date of Service May 16, 2022 Anesthesia Post Procedure Vital Signs Vital Signs: Temp Pulse Pulse Resp BP BP BP 05/16/22 09:39 96.8 F L 79 16 117/68 05/16/22 08:20 97.5 F L 73 20 147/78 H 05/16/22 08:10 97.7 F 79 20 123/63 05/16/22 07:20 80 18 05/16/22 04:00 98.2 F 72 18 111/73 05/16/22 00:00 69 05/15/22 23:25 98.2 F 82 18 108/62 05/15/22 19:59 97.9 F 72 18 133/67 05/15/22 19:21 05/15/22 19:14 72 20 05/15/22 19:03 72 05/15/22 17:28 94 H 20 132/77 05/15/22 16:43 93 H 18 130/82 05/15/22 14:50 82 16 05/15/22 14:40 70 18 05/15/22 14:31 69 20 05/15/22 14:31 69 20 161/67 H 05/15/22 14:30 71 15 05/15/22 14:26 69 15 05/15/22 14:26 69 15 148/80 H 05/15/22 14:20 70 21 05/15/22 14:10 70 19 05/15/22 14:00 69 17 05/15/22 13:50 70 19 05/15/22 13:40 71 18 05/15/22 13:20 32 H 05/15/22 13:10 70 16 05/15/22 13:06 70 19 05/15/22 14:17 70 17 148/80 H 05/15/22 13:13 71 05/15/22 12:17 20 05/15/22 12:17 72 18 123/74 Pulse Ox O2 Del Method O2 Flow Rate 05/16/22 09:39 100 Oxymask 6 05/16/22 08:20 93 Room Air 05/16/22 08:10 96 Room Air 05/16/22 07:20 94 Room Air 05/16/22 04:00 100 Nasal Cannula 2 05/16/22 00:00 05/15/22 23:25 100 Nasal Cannula 2 05/15/22 19:59 99 Nasal Cannula 3 05/15/22 19:21 Nasal Cannula 2 05/15/22 19:14 99 Nasal Cannula 3 05/15/22 19:03 05/15/22 17:28 94 Nasal Cannula 2 05/15/22 16:43 94 Room Air 05/15/22 14:50 100 05/15/22 14:40 05/15/22 14:31 05/15/22 14:31 100 05/15/22 14:30 05/15/22 14:26 05/15/22 14:26 98 2 05/15/22 14:20 05/15/22 14:10 05/15/22 14:00 05/15/22 13:50 05/15/22 13:40 05/15/22 13:20 79 L 05/15/22 13:10 100 05/15/22 13:06 100 05/15/22 14:17 100 Nasal Cannula 2 05/15/22 13:13 05/15/22 12:17 99 Nasal Cannula 05/15/22 12:17 95 Nasal Cannula 2 Pain Intensity Left Abdomen: Pain Intensity: 2 Transfer of Care Handoff Completed per policy Notes Mental Status: alert / awake / arousable and participated in evaluation Patient Amnestic to Procedure: Yes Nausea / Vomiting: adequately controlled Pain: adequately controlled Airway Patency, RR, SpO2: stable & adequate BP & HR: stable & adequate Hydration State: stable & adequate Anesthetic Complications: no major complications apparent and Pt Satisfied with anesthetic care
[2022-05-16] MEDS ORDERED: DIATRIZOATE MEGLUMINE 30% 100ML VIAL INSTIL ONE (10:06)
[2022-05-16] MEDS: BETHANECHOL CHL 25 MG TAB PO SCH ×4 (10:56→20:19)
[2022-05-16] MEDS: DOCUSATE SODIUM 100 MG CAP PO SCH ×3 (10:56→20:20)
[2022-05-16] MEDS: FERROUS SULFATE 325 MG TAB PO SCH (10:56)
[2022-05-16] MEDS: POTASSIUM CHLORIDE CRTAB 20 MEQ TABCR PO SCH (10:56)
[2022-05-16] MEDS: FOLIC ACID 1 MG TAB PO SCH (10:56)
[2022-05-16] MEDS: carvediloL 3.125 MG TAB PO SCH ×2 (10:57→18:24)
[2022-05-16] MEDS: ISOSORBIDE MONO EXTENDED REL 30 MG TABCR PO SCH (10:57)
[2022-05-16] MEDS: buPROPion SR 100 MG TABCR PO SCH ×2 (10:57→20:19)
[2022-05-16] MEDS: MEMANTINE HCL 10 MG TAB PO SCH ×2 (10:58→20:19)
--- NOTE | 2022-05-16 11:07 | Fluoroscopy Report ---
FL retrograde includes kub CLINICAL HISTORY: B/L COMPARISON STUDY: CT of the abdomen and pelvis May 15, 2022. FLUOROSCOPY TIME: 52 seconds. Air kerma: 7.41 mGy FLUOROSCOPIC IMAGES: 5 FINDINGS: Fluoroscopy was provided during bilateral retrograde pyelograms with bilateral ureteral victorina nt exchange. Bilateral hydronephrosis is again noted. Possible intraluminal filling defects within th e right inferior collecting system. IMPRESSION: Fluoroscopy provided during bilateral retrograde pyelograms with bilateral ureteral sten t exchange. ACT 112: Negative or not required by law. Electronically signed by: Glen Melvin M.D. 05/16/2022 11:06 AM
[2022-05-16] MEDS: CEFEPIME 1,000 MG in SYRINGE 0 ML IV SCH ×2 (11:19→22:15)
[2022-05-16] MEDS: DONEPEZIL HCL 10 MG TAB PO SCH (20:20)
[2022-05-16] MEDS: GABAPENTIN 300 MG CAP PO SCH (20:20)
[2022-05-16] MEDS: LEVOTHYROXINE SODIUM 112 MCG TABLET PO SCH (20:21)
[2022-05-16] MEDS: TAMSULOSIN HCL 0.4 MG CAP PO SCH (20:21)
--- NOTE | 2022-05-16 22:36 | Hospitalist Progress Note ---
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 Appears this was given agfter stent placed. awaiting urine culture. continue current antibiotics as above. reviewed blood work, cultures discussed with urology prior to procedure. (2) Confusion: Plan: -At this time the patient's confusion is most likely associated with his acute UTI, GIOVANY, and dehydration due to recent diarrhea -No focal neuro defects, patient has presented like this on previous admissions with UTI -Fall precautions, aspiration precautions, bedside dysphagia screen ordered -Continue to monitor mental status with treatment of his acute issues -patient appears to be waxing and waning. appears improved on 05/16 (3) Elevated troponin: Plan: -Initial high sen trop elevated at 24 -ECG read listed possible inferior infarct but these is extensive artifact and no significant ST segment or T-wave changes on my read -Patient is asymptomatic -Will repeat a 2 hour high sen trop STAT -Continue to monitor on tele (4) GIOVANY (acute kidney injury): Plan: -Cr noted to be 3.0 today, baseline appears closer to 1.5-1.6 -CT of the abd/pelvis show his ureteral stents to be in adequate position with stable moderate right and severe left hydronephrosis -GIOVANY likely due to dehydration, current UTI, and could also have been exacerbated with recent Bactrim therapy -Avoid Nephrotoxic agents, monitor intake and output, new myles placed in ED -Urology consulted -Monitor daily renal function and electrolytes (5) Paroxysmal atrial fibrillation: Plan: -Minimally tachycardic in the low 100's at the time of the admission -Will give his am dose of Carvedilol now as he did not have it earlier today -Continue carvedilol and Eliquis (6) Diarrhea: Plan: -Patient's family notes 4 days of 3-4 non-bloody bowel movements daily -CT fo the abd/pelvis show Constipation with possible mild stercoral proctitis, similar to the prior study and no signs of bowel obstruction -Could be infectious but could also be due to his stercoral colitis and constipation -Will continue oral bowel regimen with BID colace and daily miralax and will give a tap water enema now, continue to monitor for consistent bowel movements -Stool studies ordered by the ED, continue to follow (7) Chronic diastolic heart failure: Plan: -Appears Euvolemic on exam -Will continue with 1 bag of LR at 80 mL/hr on admission -If he passes his bedside dysphagia screen will start a diet (8) Hypothyroidism: Plan: -Will obtain TSH -Continue levothyroxine (9) Dementia: Plan: -Continue Namenda Plan Admission and Anticipated Discharge Date Admission Date: May 15, 2022 Subjective Patient reports tolerating the stent exchange. Review of Systems Review of Systems: All systems reviewed & are unremarkable except as noted in HPI & below Physical Exam Physical Exam: General: In no acute distress, stated age, chronically ill appearing HEENT: Normocephalic, atraumatic, no scleral icterus, pupils around round, symmetrical, and reactive to light, moist mucus membranes, trachea midline, no thyromegaly Chest/Pulm: No respiratory distress, symmetrical chest expansion, scattered rhonchi and wheezing throughout Cardiac: RRR, systolic murmur noted Abdomen: Negative for ascites and bruising, normoactive bowel sounds, soft, mildly tender to palpation in the lower and mid abdominal kang, no rebound tenderness Musculoskeletal: Symmetrical and without signs of acute trauma, upper and lower extremities with full ROM, no atrophy, spasticity, or flaccidity Extremities: Radial, dorsalis pedis, and posterior tibial pulses are intact and symmetrical, no edema noted in the BL LE's Skin: Warm, dry, no rashes , lesions, or scars noted Neuro: Alert and oriented to person only, no focal defects, CN II-XII tested and intact, mild tremor noted Psych: No acute distress, pleasantly confused, calm and cooperative during the exam Results & Data Results & Data Vital Signs (Past 12 Hours) Vital Signs Temp Pulse Pulse Pulse Resp BP BP 05/16/22 19:32 37.1 C 90 18 134/78 05/16/22 19:20 99 H 18 05/16/22 16:00 78 05/16/22 18:24 95 H 05/16/22 18:21 114/73 05/16/22 15:37 36.2 C L 81 18 106/66 05/16/22 16:07 05/16/22 14:10 77 18 05/16/22 14:03 36.3 C L 81 19 95/57 L 05/16/22 12:45 36.2 C L 81 19 99/62 L 05/16/22 12:15 36.5 C 84 19 96/66 L 05/16/22 11:45 36.6 C 84 19 97/58 L 05/16/22 11:36 36.3 C L 82 19 132/78 05/16/22 11:15 36.4 C L 93 H 19 126/77 05/16/22 11:11 80 18 05/16/22 10:43 36.3 C L 78 19 122/74 Pulse Ox Pulse Ox O2 Del Method O2 Del Method O2 Flow Rate 05/16/22 19:32 92 Room Air 05/16/22 19:20 92 Room Air 05/16/22 16:00 05/16/22 18:24 05/16/22 18:21 05/16/22 15:37 95 Room Air 05/16/22 16:07 92 Room Air 05/16/22 14:10 94 Room Air 05/16/22 14:03 95 Room Air 05/16/22 12:45 95 Room Air 05/16/22 12:15 94 Room Air 05/16/22 11:45 94 Room Air 05/16/22 11:36 92 Room Air 05/16/22 11:15 93 Room Air 05/16/22 11:11 98 Nasal Cannula 2 05/16/22 10:43 98 Room Air PG Care Time/CCT Total # of Minutes Spent Total Time Spent with Patient: Total time spent is greater than 50% in coordination of care (as documented) at patient's floor/unit and/or counseling patient: Coding Level of Care Code 16023 SUB INP/OBS CARE 350MIN Diagnoses Acute UTI N39.0 Confusion R41.0 Elevated troponin R77.8 GIOVANY (acute kidney injury) N17.9 Paroxysmal atrial fibrillation I48.0 Diarrhea R19.7 Chronic diastolic heart failure I50.32 Hypothyroidism E03.9 Hypothyroidism type: acquired Dementia F03.90 (8) Hypothyroidism Hypothyroidism type: acquired Qualified Code(s): E03.9 - Hypothyroidism, unspecified
[2022-05-17] MEDS: FAMOTIDINE 40 MG TABLET PO SCH (05:29)
[2022-05-17 06:57] LABS: Basophils # (auto) 0.03 K/uL (0-0.2); Basophils % (auto) 0.3 %; Eosinophils # (auto) 0.06 K/uL (0-0.50); Eosinophils % (auto) 0.5 %; Hematocrit (blood only) 26.3 % (42.0-52.0); Hemoglobin 8.3 g/dl (14.0-18.0); Immature Granulocytes # (auto) 0.06 K/uL (0.01-0.20); Immature Granulocytes % (auto) 0.5 %; Lymphocytes # (auto) 1.45 K/uL (1.2-3.4); Lymphocytes % (auto) 12.6 %; Mean Corpuscular Hemoglobin 29.3 pg (25.0-34.0); Mean Corpuscular Hgb Conc 31.6 g/dL (32.0-36.0); Mean Corpuscular Volume 92.9 fL (80.0-100.0); Mean Platelet Volume 10.4 fL (9.4-12.4); Monocytes # (auto) 1.42 K/uL (0.11-0.59); Monocytes % (auto) 12.3 %; Neutrophils # (auto) 8.49 K/uL (1.40-6.50); Neutrophils % (auto) 73.8 %; Platelet Count 260 K/uL (130-400); RDW Coefficient of Variation 16.9 % (11.5-14.5); RDW Standard Deviation 58.2 fL (36.4-46.3); Red Blood Count 2.83 M/uL (4.70-6.10); White Blood Count 11.51 K/ul (4.8-10.8)
[2022-05-17] MEDS: ALBUT/IPRATROP 3MG/0.5MG NEB 3 ML VIAL NEB SCH ×4 (07:08→18:56)
[2022-05-17 07:20] LABS: Albumin Globulin Ratio 0.7 (0.9-2); Albumin Level 2.5 gm/dl (3.4-5.0); BUN Creatinine Ratio 14.3 (10-20); Bilirubin,Total 0.2 mg/dl (0.2-1.0); Calcium 7.9 mg/dl (8.6-10.3); Creatinine Clr Calc Pharmacy 15.6 ml/min; Est GFR (African American) 18.6 ml/min; Est GFR (Non-African American) 16.1 ml/min; Globulin 3.4 gm/dl (2.5-4.0); Magnesium 2.1 mg/dl (1.7-2.4); Potassium 3.9 mmol/L (3.5-5.1); Total Protein 5.9 gm/dl (6.0-8.3)
[2022-05-17 07:26] LABS: INR 1.3 (0.9-1.1); Prothrombin Time 13.4 Seconds (9.0-12.0)
[2022-05-17] MEDS: FOLIC ACID 1 MG TAB PO SCH (08:11)
[2022-05-17] MEDS: FERROUS SULFATE 325 MG TAB PO SCH (08:11)
[2022-05-17] MEDS: buPROPion SR 100 MG TABCR PO SCH ×2 (08:11→22:08)
[2022-05-17] MEDS: MEMANTINE HCL 10 MG TAB PO SCH ×2 (08:11→22:07)
[2022-05-17] MEDS: FLUCONAZOLE 100 MG TAB PO SCH (08:11)
[2022-05-17] MEDS: BETHANECHOL CHL 25 MG TAB PO SCH ×4 (08:11→22:08)
[2022-05-17] MEDS: DOCUSATE SODIUM 100 MG CAP PO SCH ×2 (08:11→22:08)
[2022-05-17] MEDS: POTASSIUM CHLORIDE CRTAB 20 MEQ TABCR PO SCH (08:11)
--- NOTE | 2022-05-17 10:11 | Urology Progress Note ---
Date of Service May 17, 2022 Assessment & Plan (1) Acute UTI: (2) GIOVANY (acute kidney injury): (3) Ureteral stent present: (4) Chronic suprapubic catheter: Plan Postop day 1 status post bilateral stent exchange with extent of suprapubic catheter and placement of urethral catheter after dilation. Patient had considerable debris draining from the right kidney as well as a moderate amount of debris within the bladder. Had undergone continuous irrigation overnight which was stopped this morning. Is having mild hypotension but is otherwise completely at baseline for his ongoing issues. Patient has not had a major increase or exacerbation of his chronic acute infusion and dementia issues. At this point patient is on broad-spectrum antibiotics. Can likely de-escalate these. 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 Patient's also been dealing with considerable bowel issues and would be at major concern for development of C. difficile with continued utilization of broad- spectrum antibiotics. At this point patient's majority issues appear to be more obstructive. With exchange of the stents likely can de-escalate quickly to a easier to tolerate regime. If bowel issues continue and patient continues to experience symptoms would likely need to have C. difficile testing. We will defer to infectious disease if the hospitalist team choose to involve them however at this point from a urologic standpoint will likely not need aggressive antibiotics as patient does have severe chronic colonization with chronic indwelling catheter/stents. We will manage with drainage and continued monitoring can likely plan to discontinue urethral catheter tomorrow assuming patient continues to improve. We will likely be able to transition patient back to care of his family Admission and Anticipated Discharge Date Admission Date: May 15, 2022 Subjective Postop from stent exchanges. Patient very well-known with chronic retention issues. Patient has had considerable obstructive issues. Had considerable amount of debris draining from the right kidney after exchange of stents. Had undergone CBI overnight with the suprapubic catheter and a urethral catheter in order to flush any remaining debris out of the bladder. Patient has been having mild hypotension this morning but otherwise is at baseline for majority of his issues. Patient has been experiencing some somnolence and lethargy. Has noticed some frequency and urgency. Has not had severe pain in the back and flank. Does have occasional burning and irritation. No severe episodes or major changes. No new nausea or vomiting. Had tolerated anesthesia without major problems Review of Systems Review of Systems: All systems reviewed & are unremarkable except as noted in HPI & below Physical Exam Physical Exam: General: Alert in no acute distress. Patient at baseline for chronic demen tia/confusion issues. Somnolence HEENT: Normocephalic Atraumatic. Inspection normal. Cranial Nerves 2-12 Grossly intact. Normal inspection of face. Normal inspection of neck. Psychologic: Pleasantly confused, patient at baseline Respiratory: Nonlabored. No use of accessory muscles. No tachypnea or dyspnea. Cardiovascular: No tachycardia Skin: [place] and Dry. No rashes or visible lesions. Abdomen: Soft Non-distended. No rebound or guarding. Suprapubic catheter in place. Urethral catheter in place both draining clear urine. CBI was discontinued this morning. Results & Data Vital Signs (Past 12 Hours) Vital Signs Temp Pulse Pulse Resp BP BP Pulse Ox 05/17/22 07:48 37.2 C 88 20 86/53 L 99 05/17/22 07:30 90 05/17/22 03:42 36.5 C 98 H 16 115/71 96 05/16/22 23:07 37.1 C 100 H 18 114/80 90 O2 Del Method O2 Flow Rate 05/17/22 07:48 Nasal Cannula 2 05/17/22 07:30 05/17/22 03:42 Nasal Cannula 2 05/16/22 23:07 Room Air PG Care Time/CCT Total # of Minutes Spent Total Time Spent with Patient: Total time spent is greater than 50% in coordination of care (as documented) at patient's floor/unit and/or counseling patient: Coding Level of Care Code 92724 SUB INP/OBS CARE 3/50MIN Diagnoses Acute UTI N39.0 GIOVANY (acute kidney injury) N17.9 Ureteral stent present Z96.0 Chronic suprapubic catheter Z93.59
[2022-05-17] MEDS: carvediloL 3.125 MG TAB PO SCH ×2 (10:43→16:10)
[2022-05-17] MEDS: ISOSORBIDE MONO EXTENDED REL 30 MG TABCR PO SCH (10:43)
[2022-05-17] MEDS: POLYETHYLENE (MIRALAX) 17 GM PACK PO SCH ×2 (10:53→22:07)
[2022-05-17] MEDS: CEFEPIME 1,000 MG in SYRINGE 0 ML IV SCH ×2 (10:53→23:05)
[2022-05-17] MEDS: SODIUM CHLORIDE 0.9% 1000ML 1,000 ML IV SCH ×2 (10:53→23:01)
--- NOTE | 2022-05-17 10:54 | XRay Report ---
KUB CLINICAL HISTORY: Stercoral proctitis. COMPARISON STUDY: CT of the abdomen and pelvis May 15, 2022. FINDINGS: Incidental note is made of severe left hip osteoarthritis. Suprapubic catheter and bilatera l ureteral stents remain in place. There are cholecystectomy clips. Moderate amount of stool within t he colon and rectum is noted. Slight increase in colonic dilatation. IMPRESSION: 1. Moderate amount of stool within the colon and rectum. 2. Slight increase in colonic dilatation. ACT 112: Negative or not required by law. Electronically signed by: Glen Melvin M.D. 05/17/2022 10:53 AM
[2022-05-17] MEDS: DAPTOmycin 275 MG in SYRINGE 0 ML IV SCH (16:10)
--- NOTE | 2022-05-17 21:07 | Hospitalist Progress Note ---
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 -Patient's urine is now clear, will continue current antibiotics. -BL SCD's and Eliquis for DVT PPX (2) Confusion: Plan: -At this time the patient's confusion is most likely associated with his acute UTI, GIOVANY, and dehydration due to recent diarrhea -No focal neuro defects, patient has presented like this on previous admissions with UTI -Fall precautions, aspiration precautions, bedside dysphagia screen ordered -Continue to monitor mental status with treatment of his acute issues Appears to be at basline (3) Elevated troponin: Plan: -Initial high sen trop elevated at 24 -ECG read listed possible inferior infarct but these is extensive artifact and no significant ST segment or T-wave changes on my read -Patient is asymptomatic -Continue to monitor on tele (4) GIOVANY (acute kidney injury): Plan: -Cr noted to be 3.0 today, baseline appears closer to 1.5-1.6 -CT of the abd/pelvis show his ureteral stents to be in adequate position with stable moderate right and severe left hydronephrosis -GIOVANY likely due to dehydration, current UTI, and could also have been exacerbated with recent Bactrim therapy -Avoid Nephrotoxic agents, monitor intake and output, new myles placed in ED -Urology consulted -Monitor daily renal function and electrolytes (5) Paroxysmal atrial fibrillation: Plan: -Minimally tachycardic in the low 100's at the time of the admission -Will give his am dose of Carvedilol now as he did not have it earlier today -Continue carvedilol and Eliquis (6) Diarrhea: Plan: -Patient's family notes 4 days of 3-4 non-bloody bowel movements daily -CT fo the abd/pelvis show Constipation with possible mild stercoral proctitis, similar to the prior study and no signs of bowel obstruction -Could be infectious but could also be due to his stercoral colitis and constipation -Will continue oral bowel regimen with BID colace and daily miralax and will give a tap water enema now, continue to monitor for consistent bowel movements -Stool studies ordered by the ED, continue to follow (7) Chronic diastolic heart failure: Plan: -Appears Euvolemic on exam -Will continue with 1 bag of LR at 80 mL/hr on admission (8) Hypothyroidism: Plan: -Will obtain TSH -Continue levothyroxine (9) Dementia: Plan: -Continue Namenda Plan the patient was discussed with Dr. Arce at the time of the admission Admission and Anticipated Discharge Date Admission Date: May 15, 2022 Subjective Patient is pleasantly confused. Review of Systems Review of Systems: All systems reviewed & are unremarkable except as noted in HPI & below Physical Exam Physical Exam: General: In no acute distress, stated age, chronically ill appearing HEENT: Normocephalic, atraumatic, no scleral icterus, pupils around round, symmetrical, and reactive to light, moist mucus membranes, trachea midline, no thyromegaly Chest/Pulm: No respiratory distress, symmetrical chest expansion, scattered rhonchi and wheezing throughout Cardiac: RRR, systolic murmur noted Abdomen: Negative for ascites and bruising, normoactive bowel sounds, soft, mildly tender to palpation in the lower and mid abdominal kang, no rebound tenderness Musculoskeletal: Symmetrical and without signs of acute trauma, upper and lower extremities with full ROM, no atrophy, spasticity, or flaccidity Extremities: Radial, dorsalis pedis, and posterior tibial pulses are intact a nd symmetrical, no edema noted in the BL LE's Skin: Warm, dry, no rashes , lesions, or scars noted Neuro: Alert and oriented to person only, no focal defects, CN II-XII tested and intact, mild tremor noted Psych: No acute distress, pleasantly confused, calm and cooperative during the exam Results & Data Results & Data Vital Signs (Past 12 Hours) Vital Signs Temp Pulse Pulse Resp BP BP Pulse Ox 05/17/22 18:56 18 92 05/17/22 19:52 05/17/22 19:24 37.2 C 76 16 99/54 L 91 05/17/22 20:45 167 H 05/17/22 21:00 90/46 L 05/17/22 20:56 37.6 C H 142 H 16 92 05/17/22 16:00 89 18 96 05/17/22 15:30 92 H 18 96 05/17/22 15:07 37.1 C 97 H 18 88/56 L 94 05/17/22 11:08 96 H 20 90 05/17/22 10:57 36.4 C L 96 H 18 89/45 L 97 O2 Del Method O2 Flow Rate 05/17/22 18:56 Room Air 05/17/22 19:52 Room Air 05/17/22 19:24 Room Air 05/17/22 20:45 05/17/22 21:00 05/17/22 20:56 Room Air 05/17/22 16:00 Room Air 05/17/22 15:30 Nasal Cannula 2 05/17/22 15:07 Nasal Cannula 2 05/17/22 11:08 Nasal Cannula 1 05/17/22 10:57 Nasal Cannula 2 PG Care Time/CCT Total # of Minutes Spent Total Time Spent with Patient: Total time spent is greater than 50% in coordination of care (as documented) at patient's floor/unit and/or counseling patient: Coding Level of Care Code 56218 SUB INP/OBS CARE 3/50MIN Diagnoses Acute UTI N39.0 Confusion R41.0 Elevated troponin R77.8 GIOVANY (acute kidney injury) N17.9 Paroxysmal atrial fibrillation I48.0 Diarrhea R19.7 Chronic diastolic heart failure I50.32 Hypothyroidism E03.9 Hypothyroidism type: acquired Dementia F03.90 (8) Hypothyroidism Hypothyroidism type: acquired Qualified Code(s): E03.9 - Hypothyroidism, unspecified
[2022-05-17] MEDS ORDERED: dilTIAZem HCl 5 MG/ML 5 ML VIAL IV ONE (21:11)
[2022-05-17] MEDS ORDERED: dilTIAZem HCl 5 MG/ML 5 ML VIAL IV STA (21:23)
--- NOTE | 2022-05-17 21:24 | Communication Note ---
Date of Service: May 17, 2022 Was notified about tachycardia to the 140s by pt's nurse. Went up to see the patient, who was nonverbal, which apparently is his baseline. Vitals were notabl e for HR in the 130s. Was unable to determine pressure, though nurse's manual reading was 90/40. Cardiac exam revealed tachycardia, irregularly irregular heartbeat. EKG revealed atrial fibrillation with RVR. Transferred pt to PCU and administered IV diltiazem push. In the PCU, blood pressure found to be 152/85, with pulses still ranging between 120-145. He received a dose of IV Lopressor 2.5 mg, at which point his bp dropped to 82/50. Gave 500cc LR bolus x3 doses, at which point his pressures improved to the 100s/60s. Repeat EKG again revealed atrial fibrillation with RVR. Patient's heart rate remained elevated 130s, so and amiodarone drip was started. Resident Activity Tracking Resident Involvement: Resident Care Provided Care Provided: Adult Hospital Medicine Supervising Physician Co-Signing Physician Notes Patient with UTI / post-obstructive issues s/p bilateral stent exchange, and is overall net negative this admission with regard to fluids. With AFib RVR this evening; first trialed with Lopressor/dilt however with marginal improvement in HR and decrease in BP to 80s systolic. Given net negative fluid status and temp 37.6, will give LR boluses with frequent reassessment of HR and BP. No evidence of fluid overload on exam. Given hyperchloremic with bicarb 19 on labs this AM, will transition IV fluids to D5 w/ bicarb fluids for maintenance. Patient was in sinus rhythm on intake EKG 05/15, so can trial amiodarone bolus/gtt for chemical cardioversion if HR continues to be elevated with appropriate fluid replacement. Patient off of Eliquis since afternoon of 05/15 for Urologic procedure, however benefit of amiodarone for possible chemical cardioversion for hemodynamic stability exceeds stroke risk at this time. Resumed Eliquis per day team plan noted in EMR.
[2022-05-17] MEDS ORDERED: METOPROLOL TARTRATE 1 MG/ML VIAL IV PRN (21:33)
[2022-05-17] MEDS: TAMSULOSIN HCL 0.4 MG CAP PO SCH (22:06)
[2022-05-17] MEDS: GABAPENTIN 300 MG CAP PO SCH (22:07)
[2022-05-17] MEDS: LEVOTHYROXINE SODIUM 112 MCG TABLET PO SCH (22:07)
[2022-05-17] MEDS: DONEPEZIL HCL 10 MG TAB PO SCH (22:08)
[2022-05-17] MEDS ORDERED: LACTATED RINGER'S 500 ML IV ONE ×2 (22:41→23:46)
[2022-05-17] MEDS ORDERED: STAT IV STA (23:40)
[2022-05-18] MEDS ORDERED: SODIUM BICARBONATE 8.4% 150 MEQ in DEXTROSE 5% 1,000 ML IV SCH
[2022-05-18] MEDS ORDERED: LACTATED RINGER'S 500 ML IV ONE (00:48)
[2022-05-18] MEDS ORDERED: AMIODARONE / D5W 150 MG/100 ML BAG IV STA (01:53)
[2022-05-18] MEDS ORDERED: 0.2 MICRON FILTER SET 1 EACH IV ONE ×3 (01:53→02:32)
[2022-05-18] MEDS ORDERED: AMIODARONE / D5W 360 MG/200 ML BAG IV ONE (02:15)
[2022-05-18] MEDS ORDERED: PHENYLEPHRINE HCL 25 MG/250 ML NSS IV ONE (02:23)
[2022-05-18] MEDS ORDERED: ACETAMINOPHEN 325 MG TAB PO ONE (03:12)
[2022-05-18 03:23] LABS: Basophils # (auto) 0.03 K/uL (0-0.2); Basophils % (auto) 0.3 %; Eosinophils # (auto) 0.07 K/uL (0-0.50); Eosinophils % (auto) 0.8 %; Hematocrit (blood only) 27.4 % (42.0-52.0); Hemoglobin 8.5 g/dl (14.0-18.0); Immature Granulocytes # (auto) 0.04 K/uL (0.01-0.20); Immature Granulocytes % (auto) 0.4 %; Lymphocytes # (auto) 1.85 K/uL (1.2-3.4); Lymphocytes % (auto) 20.3 %; Mean Corpuscular Hemoglobin 29.1 pg (25.0-34.0); Mean Corpuscular Volume 93.8 fL (80.0-100.0); Mean Platelet Volume 10.2 fL (9.4-12.4); Monocytes # (auto) 1.26 K/uL (0.11-0.59); Monocytes % (auto) 13.8 %; Neutrophils # (auto) 5.88 K/uL (1.40-6.50); Neutrophils % (auto) 64.4 %; Platelet Count 257 K/uL (130-400); RDW Coefficient of Variation 17.2 % (11.5-14.5); RDW Standard Deviation 59.7 fL (36.4-46.3); Red Blood Count 2.92 M/uL (4.70-6.10); White Blood Count 9.13 K/ul (4.8-10.8)
[2022-05-18 03:27] LABS: Albumin Globulin Ratio 0.7 (0.9-2); Albumin Level 2.5 gm/dl (3.4-5.0); BUN Creatinine Ratio 14.1 (10-20); Bilirubin,Total 0.2 mg/dl (0.2-1.0); Calcium 8.2 mg/dl (8.6-10.3); Creatinine Clr Calc Pharmacy 17.6 ml/min; Est GFR (African American) 21.5 ml/min; Est GFR (Non-African American) 18.6 ml/min; Globulin 3.6 gm/dl (2.5-4.0); Magnesium 1.9 mg/dl (1.7-2.4); Total Protein 6.1 gm/dl (6.0-8.3)
[2022-05-18 03:36] LABS: INR 1.2 (0.9-1.1); Prothrombin Time 12.8 Seconds (9.0-12.0)
[2022-05-18] MEDS: FAMOTIDINE 40 MG TABLET PO SCH (06:31)
[2022-05-18] MEDS ORDERED: SODIUM CHLORIDE 0.9% 1000ML 500 ML IV ONE (07:22)
[2022-05-18] MEDS: ALBUT/IPRATROP 3MG/0.5MG NEB 3 ML VIAL NEB SCH ×4 (07:28→20:13)
[2022-05-18] MEDS: AMIODARONE / D5W 360 MG/200 ML BAG IV SCH ×2 (07:57→19:45)
--- NOTE | 2022-05-18 08:24 | Electrocardiogram Report ---
Test Reason : Blood Pressure : / mmHG Vent. Rate : 140 BPM Atrial Rate : 097 BPM P-R Int : 000 ms QRS Dur : 088 ms QT Int : 322 ms P-R-T Axes : 000 -44 131 degrees QTc Int : 491 ms Atrial fibrillation with rapid ventricular response Left axis deviation ST depression in Anterior leads Diffuse Nonspecific T wave abnormality Abnormal ECG When compared with ECG of 15-MAY-2022 13:09, Atrial fibrillation has replaced Sinus rhythm Vent. rate has increased BY [address] more depressed Anterior leads Nonspecific T wave abnormality now evident in Anterior leads Confirmed by Marv López ([id number]) on 05/18/2022 8:24:20 AM Referred By: REFERRED SELF Confirmed By:Marv López
[2022-05-18] MEDS: carvediloL 3.125 MG TAB PO SCH ×2 (08:50→09:04)
[2022-05-18] MEDS: buPROPion SR 100 MG TABCR PO SCH ×2 (09:04→20:41)
[2022-05-18] MEDS: MEMANTINE HCL 10 MG TAB PO SCH ×2 (09:04→21:36)
[2022-05-18] MEDS: FLUCONAZOLE 100 MG TAB PO SCH (09:04)
[2022-05-18] MEDS: POTASSIUM CHLORIDE CRTAB 20 MEQ TABCR PO SCH (09:04)
[2022-05-18] MEDS: DOCUSATE SODIUM 100 MG CAP PO SCH ×2 (09:04→20:49)
[2022-05-18] MEDS: FOLIC ACID 1 MG TAB PO SCH (09:04)
[2022-05-18] MEDS: APIXABAN 2.5 MG TAB PO SCH ×2 (09:04→20:40)
[2022-05-18] MEDS: FERROUS SULFATE 325 MG TAB PO SCH (09:04)
[2022-05-18] MEDS: BETHANECHOL CHL 25 MG TAB PO SCH ×4 (09:05→20:40)
[2022-05-18] MEDS: CEFEPIME 1,000 MG in SYRINGE 0 ML IV SCH ×2 (09:17→21:36)
[2022-05-18] MEDS: FLUDROCORTISONE ACETATE 0.1 MG TAB PO SCH (09:17)
[2022-05-18] MEDS: POLYETHYLENE (MIRALAX) 17 GM PACK PO SCH ×2 (09:17→20:49)
[2022-05-18] MEDS ORDERED: MIDODRINE HCL 2.5 MG TAB PO ONE (10:48)
--- NOTE | 2022-05-18 11:09 | Cardiology Consultation ---
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 Although his tachycardia is improved somewhat on amiodarone drip he is mildly hypotensive and on exam currently appears at least mildly volume overloaded. Would continue intravenous amiodarone for rate control and potential rhythm conversion. Although he is hypotensive he does not appear to be hypoperfusing, he is awake (albeit somnolent), has warm extremities with palpable peripheral pulses, and has good urine output (1226 mL overnight). Would focus on rate control to improve BP, doubt that medications to increase afterload will be effective in the face of severe aortic stenosis. Could consider electrical cardioversion, but this depends upon level of int ervention/aggressiveness desired by patient and family. He does have a pacemaker, so bradycardia is not a concern. Consider esmolol infusion for easily titratable infusion of beta-christina for additional rate control. Alternately, if SBP is greater than 85 mmHg could give low-dose beta-christina (25 mg metoprolol tartrate every 6 hours). Carvedilol was discontinued since this can aggravate hypotension. Intravenous bicarbonate discontinued since he appears volume overloaded. Agree with holding isosorbide mononitrate while he is hypotensive. Given his multiple comorbidities, advanced age, and recurrent hospitalizations/decompensations, prognosis is poor. History of Present Illness Reason for Consultation: AFib RVR Requesting Physician: Kevin Shay Attending Physician: Kevin Shay History of Present Illness 82-year-old man with history of dementia, COPD, heart failure with midrange ejection fraction (EF 45-50%), moderate too severe aortic stenosis, dual-chamber pacemaker, paroxysmal atrial fibrillation (carvedilol/apixaban), chronic nocturnal hypoxemia (supplemental oxygen at home), with recurrent drug-resistant urinary tract infections and multiple recent prolonged hospitalizations (October 2021, February 2022, April 2022, and currently) who presented to the ER 05/15/2022 with urinary symptoms but subsequently developed atrial fibrillation with rapid ventricular response. Patient noted to have hydronephrosis and underwent suprapubic and urethral catheter placement on 05/16/2022. Of note, his rhythm was sinus at 71 bpm on the day of admission, he apparently developed atrial fibrillation last evening when his heart rate abruptly jumped from 76 bpm to 167 bpm (per vital signs/nursing notes). He was initiated on an amiodarone drip but has remained in atrial fibrillation with suboptimally controlled ventricular rate (currently 115 bpm) and has been mildly hypotensive (SBP in the 80-90 mmHg range). However, he does not appear hypoperfused and has good urine output. The patient has baseline dementia and forgetfulness, he can answer simple questions. He denies any chest pain, dyspnea (on BiPAP) or subjective palpitations. He did appear fairly somnolent. Allergies Allergy/AdvReac Type Severity Reaction Status Date / Time captopril Allergy Severe Anaphylaxis Verified 02/05/22 17:27 morphine Allergy Severe Anaphylaxis Verified 02/05/22 21:27 oxaprozin Allergy Severe Anaphylaxis Verified 02/05/22 17:27 torsemide Allergy Severe Anaphylaxis Verified 02/05/22 17:27 hydrocodone Allergy Mild Rash Verified 02/05/22 17:27 Home Medications Medication Instructions Recorded Confirmed Type folic acid 1 mg tablet 1 mg PO QAM #90 tabs 10/04/19 05/15/22 Rx albuterol sulfate 90 mcg/actuation 2 puff inhalation Q6H PRN 07/09/20 05/15/22 Rx aerosol inhaler (Ventolin HFA) cough/wheeze/shortness of breath #1 inhaler cyanocobalamin (vitamin B-12) 1,000 mcg PO QAM 07/16/20 05/15/22 History 1,000 mcg tablet ferrous sulfate 325 mg (65 mg 325 mg PO QAM 07/16/20 05/15/22 History iron) tablet,delayed release polyethylene glycol 3350 17 gram 17 g PO DAILY PRN Constipation 07/16/20 05/15/22 History oral powder packet (Miralax) ascorbic acid (vitamin C) 500 mg 500 mg PO QAM 10/22/20 05/15/22 History tablet (Vitamin C) docusate sodium 100 mg capsule 100 mg PO BID 10/22/20 05/15/22 History (Stool Softener) albuterol sulfate 2.5 mg/3 mL 2.5 mg (3 mL) inhalation QID PRN 04/16/21 05/15/22 Rx (0.083 %) solution for nebulization shortness of breath or wheezing #75 mL ipratropium 0.5 mg-albuterol 3 mg 3 ml inhalation Q6H PRN wheezing 06/20/21 04/08/01 Rx (2.5 mg base)/3 mL nebulization #90 mL soln tramadol 50 mg tablet 50 mg PO TID PRN Pain #30 tabs 09/03/21 05/15/22 Rx memantine 10 mg tablet (Namenda) 10 mg PO BID #180 tabs 09/09/21 05/15/22 Rx donepezil 10 mg tablet 10 mg PO HS #90 tabs 09/23/21 05/15/22 Rx calcium carbonate 500 mg-vitamin 1 tab PO DAILY 09/29/21 05/15/22 History D3 5 mcg (200 unit) tablet levothyroxine 112 mcg tablet 112 mcg PO HS #90 tabs 01/15/22 05/15/22 Rx (Synthroid) famotidine 40 mg tablet (Pepcid) 40 mg PO DAILYBB #90 tabs 01/20/22 05/15/22 Rx apixaban 2.5 mg tablet (Eliquis) 2.5 mg PO BID #180 tabs 02/24/22 05/15/22 Rx bupropion HCl 100 mg tablet,12 hr 100 mg PO BID #60 ea 02/24/22 05/15/22 Rx sustained-release gabapentin 300 mg capsule 300 mg PO HS #90 caps 02/24/22 05/15/22 Rx isosorbide mononitrate 30 mg 30 mg PO QAM #90 tabs 03/03/22 05/15/22 Rx tablet,extended release 24 hr tamsulosin 0.4 mg capsule 0.4 mg PO HS #90 caps 03/27/22 05/15/22 Rx simvastatin 80 mg tablet 80 mg PO HS #90 tabs 04/14/22 05/15/22 Rx bethanechol chloride 50 mg tablet 50 mg PO QID #360 tabs 04/28/22 05/15/22 Rx potassium chloride 20 mEq 20 meq PO DAILY #30 tabs 05/14/22 05/15/22 Rx tablet,extended release acetaminophen 325 mg tablet 325 mg PO Q4 PRN pain 05/15/22 05/15/22 History carvedilol 6.25 mg tablet 6.25 mg PO BIDWMEAL #180 tabs 05/15/22 Rx Patient History Medical History (Updated 05/18/22 @ 11:32 by Marv López MD) Acute kidney injury Anemia Anticoagulant long-term use Anxiety and depression Aortic stenosis Mild (MG 11 mmHg, UZMA 1.1 cm2) per 11/2015 ECHO. Valve not well visualized on echo 03/22/20. Aortic stenosis Severe per 09/30/21 ECHO UZMA 0.8cm Atrial fibrillation dx 2017 >on Eliquis, no cardioversions Avascular necrosis of bone of left hip (~05/2020) severe avascular necrosis and severe osteoarthritis to left hip joint with moderate advanced right hip osteoarthritis Bilateral renal masses BPH w urinary obs/LUTS CAD (coronary artery disease) Multiple cardiac stents (x4 total)- most recent 3+ years ago 1997- LCx- stent Most recent cath 2013 per cardio records "LAD okay, LCX OM 30, RCA ok, NL EF" CAD (coronary artery disease), [place] coronary artery S/P BMS to OM (1997). Caths also 2006, 2008 and 2013, no stents placed. Most recent cath in 2013 showed no angiographically significant stenosis other than 20-30% in-stent restenosis of OM. Cardiac pacemaker in situ Implanted 2008 (03/[address] [employer]. Replaced 2016. > Last pacer check 04/10/20 [facility] > Dr. 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 On donepezil and memantine, follows with neurology Dyslipidemia Edema of both upper extremities Elevated troponin Facial droop GERD (gastroesophageal reflux disease) controlled Hematuria History of kidney stones History of NC (myocardial infarction) 1997- Follows with Dr. Hodge/[facility] History of recent hospitalization Admitted to [facility] 07/10/21-07/14/21- for staph bacteremia secondary to infected wound at suprapubic catheter site, UTI, acute metabolic encephalopathy; per 08/09/21 neuro note- bacteremia resolved with abxs, acute metabolic encephalopathy resolved, mental status back to baseline, UTI/GIOVANY resolved after abx. 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 Suprapubic catheter In place secondary to neurogenic bladder UTI (urinary tract infection) Wheezing Surgical History H/O total knee replacement R/L History of back surgery MULTIPLE History of cardiac cath Multiple cardiac stents (x4 total)- most recent 3+ years ago History of carpal tunnel release of both wrists History of cataract surgery B/L History of colonoscopy History of lithotripsy History of lumbar fusion History of prostate surgery Partial prostatectomy History of thyroidectomy secondary to goiter History of tooth extraction All teeth S/P cystoscopy with ureteral stent placement last 05/2021 @ [facility] Dr. William Medrano- Cystoscopy, Bilateral retrograde pyelogram, Bilateral ureteral stent exchange, Left aspiration and culture S/P TURP S/P ureteral stent placement Cysto, B/L RPG, right ureteroscopy, stent exchange: 07/06/18: LMA#5 at [facility] Cysto stent exchange (11/2018) Cystoscopy, stent exchange, suprapubic catheter (04/30/20): MAC at [facility] S/P ureteral stent placement Family History Father Diabetes Mother Coronary heart disease Hypertension Brother Seizure Other No family history of adverse response to anesthesia Denies family history of Ovarian cancer Prostate cancer Myocardial infarction Breast cancer Colorectal cancer Social History Smoking Status: Former smoker Tobacco Type: Cigarettes Age Started Using Tobacco: 15; Age Quit Using Tobacco: 59; packs per day: 2; Second Hand Exposure: No; Hx Alcohol Use: No Hx Substance Use: No Preferred Language: Albanian Communication Ability: Effective Communication Ability Comment: "some things he will remember/some wont" per can sign own consent Visual Impairment: No Limitations Hearing Ability: Hard of Hearing Em Physician Required: No Beliefs That Will Affect Care: None marital status: Current Living Situation: Spouse and Family Current Living Situation Comment: home with spouce and 2 daughters current occupational status: retired How many Children do You have: 3 Other Information That Helps Us Care for You: No Feels Safe at Home: Yes Safety Concerns: Feels Safe At This Time Childhood Exposure to Second-Hand Smoke: No caffeine: Yes (Coffee 3 per day.) during the past year weight has: remained stable Dental Care, Regularly: No Physical Activity Frequency: Does not Exercise Seatbelt Use: always Sunscreen Use: No Assistive Devices: Hospital Bed, Mechanical Lift and Wheelchair Physical Exam Physical Exam: Elderly white male who appears somewhat somnolent but awakens to answer simple questions, no acute distress. SBP in the 80-90 mmHg range. Pulse 116 bpm and irregular. Skin: no ecchymoses or generalized lesions. HEENT: unremarkable. Neck: Jugular venous pulse one third of the way to the angle of the jaw at 90 degrees, bilateral transmitted murmur carotid arteries. Lungs: Moderately decreased breath sounds with bibasilar crackles. No wheezing or accessory muscle use. Cardiac: Irregular/tachycardic rhythm, and audible aortic closure sound, 3/6 crescendo decrescendo systolic ejection murmur right upper sternal border radiating widely (carotids, apex, axilla), no diastolic murmur. Abdomen: benign. Extremities: no edema, palpable posterior tibial and radial pulses, hands and feet are warm. Neurologic: Somnolent, answer simple questions, grossly nonfocal. Results & Data Laboratory Results Sodium 143, chloride 116, potassium 4.0, BUN 42, creatinine 2.97 (3.35 yesterday). High-sensitivity troponin 24.4 and 24.3 on admission, not repeated. Diagnostic Findings Initial ECG showed sinus rhythm at 71 bpm, diffuse T wave flattening but isoelectric ST segments. Compared with January 2022 study no significant change. Chest x-ray on admission (05/15/2022) showed interstitial opacities without evidence of acute abnormality. Echocardiogram April 2022 showed EF 45 to 50% with no focal wall motion abnormalities, moderate aortic stenosis. PG Care Time/CCT Total # of Minutes Spent Total Time Spent with Patient: Total time spent is greater than 50% in coordination of care (as documented) at patient's floor/unit and/or counseling patient: Coding Level of Care Code 36142 ER DEPT VISIT MOD LVL 4 Diagnoses Atrial fibrillation with RVR I48.91 Hypotension I95.9 Heart failure with mid-range ejection fraction (HFmEF) I50.22 Moderate to severe aortic stenosis I35.0 Pacemaker Z95.0 Dementia F03.90
[2022-05-18] MEDS ORDERED: MIDODRINE HCL 2.5 MG TAB PO SCH (12:00)
[2022-05-18] MEDS ORDERED: STAT IV Infusion **Titration per Protocol STA (12:03)
[2022-05-18] MEDS ORDERED: ESMOLOL / NSS 2,500 MG/250 ML BAG IV SCH (12:15)
[2022-05-18] MEDS ORDERED: METOPROLOL TARTRATE 25 MG TAB PO ONE (12:58)
--- NOTE | 2022-05-18 17:09 | Electrocardiogram Report ---
Test Reason : Blood Pressure : / mmHG Vent. Rate : 132 BPM Atrial Rate : 141 BPM P-R Int : 000 ms QRS Dur : 086 ms QT Int : 340 ms P-R-T Axes : 000 -37 100 degrees QTc Int : 503 ms Poor data quality, interpretation may be adversely affected Atrial fibrillation with rapid ventricular response with premature ventricular or aberrantly conducte d complexes Left axis deviation ST depression in Anteroseptal leads Diffuse Nonspecific T wave abnormality Abnormal ECG When compared with ECG of 17-MAY-2022 20:49, No significant change Confirmed by Marv López ([id number]) on 05/18/2022 5:09:26 PM Referred By: REFERRED SELF Confirmed By:Marv López
[2022-05-18] MEDS: METOPROLOL TARTRATE 25 MG TAB PO SCH ×2 (17:48→23:28)
[2022-05-18] MEDS: GABAPENTIN 300 MG CAP PO SCH (20:40)
[2022-05-18] MEDS: DONEPEZIL HCL 10 MG TAB PO SCH (20:40)
[2022-05-18] MEDS: TAMSULOSIN HCL 0.4 MG CAP PO SCH (20:40)
[2022-05-18] MEDS: LEVOTHYROXINE SODIUM 112 MCG TABLET PO SCH (20:40)
--- NOTE | 2022-05-18 22:46 | Hospitalist Progress Note ---
Date of Service May 18, 2022 Assessment & Plan (1) Acute UTI: Plan: -Admit to med/tele -The patient is currently afebrile hemodynamically stable, and stable on RA -Patient has a long history of drug resistant UTI's due to his chronic suprapubic cath -Previous urine cultures have grown Pseudomonas sensitive to cefepime, Coag negative Staphylococcus and Corynbact.sp not urealyticum sensitive to Daptomycin and Vancomycin, and Citrobacter farmeri sensitive to cefepime -S/P one dose of Cefepime in the ED, will continue with Cefepime and Daptomycin for now, follow urine and blood cutlures and tailor abx accordingly -Appreciate input from Urology. -Patient's urine is now clear, will continue current antibiotics. -BL SCD's and Eliquis for DVT PPX Patient has continued to be intermittently hypotensive, this appears to be due to his aortic stenosis. will consider trial of metoprolol given his elevated heart rate. Cardiology is on board. Added midodrine and fiorinef for his hypotension, however concern for tachyphylaxis. will hold off midodrine. (2) Confusion: Plan: -At this time the patient's confusion is most likely associated with his acute UTI, IGOVANY, and dehydration due to recent diarrhea -No focal neuro defects, patient has presented like this on previous admissions with UTI -Fall precautions, aspiration precautions, bedside dysphagia screen ordered -Continue to monitor mental status with treatment of his acute issues Appears to be at basline (3) Elevated troponin: Plan: -Initial high sen trop elevated at 24 -ECG read listed possible inferior infarct but these is extensive artifact and no significant ST segment or T-wave changes on my read -Patient is asymptomatic -Continue to monitor on tele (4) GIOVANY (acute kidney injury): Plan: -Cr noted to be 3.0 today, baseline appears closer to 1.5-1.6 -CT of the abd/pelvis show his ureteral stents to be in adequate position with stable moderate right and severe left hydronephrosis -GIOVANY likely due to dehydration, current UTI, and could also have been exacerbated with recent Bactrim therapy -Avoid Nephrotoxic agents, monitor intake and output, new myles placed in ED -Urology consulted -Monitor daily renal function and electrolytes (5) Paroxysmal atrial fibrillation: Plan: -as above. continue Eliquis (6) Diarrhea: Plan: -Patient's family notes 4 days of 3-4 non-bloody bowel movements daily -CT fo the abd/pelvis show Constipation with possible mild stercoral proctitis, similar to the prior study and no signs of bowel obstruction -Could be infectious but could also be due to his stercoral colitis and constipation -Will continue oral bowel regimen with BID colace and daily miralax and will give a tap water enema now, continue to monitor for consistent bowel movements -Stool studies ordered by the ED, continue to follow (7) Chronic diastolic heart failure: Plan: -Appears Euvolemic on exam -Will continue with 1 bag of LR at 80 mL/hr on admission (8) Hypothyroidism: Plan: -Will obtain TSH -Continue levothyroxine (9) Dementia: Plan: -Continue Namenda Plan the patient was discussed with Dr. Arce at the time of the admission Admission and Anticipated Discharge Date Admission Date: May 15, 2022 Subjective 82 yo male remains confused. Review of Systems Review of Systems: All systems reviewed & are unremarkable except as noted in HPI & below Physical Exam Physical Exam: General: In no acute distress, stated age, chronically ill appearing HEENT: Normocephalic, atraumatic, no scleral icterus, pupils around round, symmetrical, and reactive to light, moist mucus membranes, trachea midline, no thyromegaly Chest/Pulm: No respiratory distress, symmetrical chest expansion, scattered rhonchi and wheezing throughout Cardiac: RRR, systolic murmur noted Abdomen: Negative for ascites and bruising, normoactive bowel sounds, soft, mildly tender to palpation in the lower and mid abdominal kang, no rebound tenderness Musculoskeletal: Symmetrical and without signs of acute trauma, upper and lower extremities with full ROM, no atrophy, spasticity, or flaccidity Extremities: Radial, dorsalis pedis, and posterior tibial pulses are intact and symmetrical, no edema noted in the BL LE's Skin: Warm, dry, no rashes , lesions, or scars noted Neuro: Alert and oriented to person only, no focal defects, CN II-XII tested and intact, mild tremor noted Psych: No acute distress, pleasantly confused, calm and cooperative during the exam Results & Data Results & Data Vital Signs (Past 12 Hours) Vital Signs Temp Pulse Pulse Resp BP BP Pulse Ox 05/18/22 22:04 05/18/22 20:16 104 H 24 99 04/09/23 20:16 104 H 26 H 99 05/18/22 19:00 108 H 20 110/76 98 05/18/22 18:15 82/59 L 05/18/22 17:47 64/40 L 05/18/22 16:16 101/81 05/18/22 16:13 97 H 05/18/22 16:11 67/50 L 05/18/22 15:10 37.2 C 101 H 20 78/56 L 100 05/18/22 14:50 111 H 21 96 05/18/22 14:50 115 H 18 96 05/18/22 14:09 83/64 L 05/18/22 13:46 79/51 L 05/18/22 13:31 103 H 66/54 L 05/18/22 11:39 37.4 C 107 H 20 101/83 100 05/18/22 11:11 100 H 21 100 05/18/22 11:11 100 H 21 100 O2 Del Method O2 Flow Rate FiO2 05/18/22 22:04 Nasal Cannula 2 05/18/22 20:16 40 05/18/22 20:16 BiPAP 40 05/18/22 19:00 Room Air 05/18/22 18:15 05/18/22 17:47 05/18/22 16:16 05/18/22 16:13 05/18/22 16:11 05/18/22 15:10 BiPAP 05/18/22 14:50 40 05/18/22 14:50 BiPAP 40 05/18/22 14:09 05/18/22 13:46 05/18/22 13:31 05/18/22 11:39 BiPAP 05/18/22 11:11 40 05/18/22 11:11 BiPAP 40 PG Care Time/CCT Total # of Minutes Spent Total Time Spent with Patient: Total time spent is greater than 50% in coordination of care (as documented) at patient's floor/unit and/or counseling patient: Coding Level of Care Code 54795 SUB INP/OBS CARE 3/50MIN Diagnoses Acute UTI N39.0 Confusion R41.0 Elevated troponin R77.8 GIOVANY (acute kidney injury) N17.9 Paroxysmal atrial fibrillation I48.0 Diarrhea R19.7 Chronic diastolic heart failure I50.32 Hypothyroidism E03.9 Hypothyroidism type: acquired Dementia F03.90 Time Spent (min) 50 (8) Hypothyroidism Hypothyroidism type: acquired Qualified Code(s): E03.9 - Hypothyroidism, unspecified
[2022-05-19] MEDS: METOPROLOL TARTRATE 25 MG TAB PO SCH ×3 (05:48→18:33)
[2022-05-19] MEDS: FAMOTIDINE 40 MG TABLET PO SCH (05:49)
--- NOTE | 2022-05-19 07:11 | XRay Report ---
XR chest 1V portable HISTORY: 82 years-old Male SOB eval for pulm edema acute shortness of breath COMPARISON: Chest radiograph 05/15/2022 TECHNIQUE: AP view of the chest FINDINGS: Cardiac silhouette is enlarged. Left subclavian pacer. Atherosclerosis of the aorta. Progressively wo rsened reticular interstitial opacities with ill-defined peripheral airspace densities. No pneumothor ax or large pleural effusion. Degenerative changes of the shoulders and spine. IMPRESSION: Cardiomegaly with mildly progressed mixed interstitial and alveolar opacities which may r epresent pulmonary edema versus a nonspecific infectious or inflammatory pneumonitis. ACT 112: Negative or not required by law. The above report was generated using voice recognition software. It may contain grammatical, syntax o r spelling errors. Electronically signed by: Avelino Joshi M.D. 05/19/2022 7:10 AM
[2022-05-19] MEDS: ALBUT/IPRATROP 3MG/0.5MG NEB 3 ML VIAL NEB SCH ×4 (07:28→18:54)
[2022-05-19] MEDS: AMIODARONE / D5W 360 MG/200 ML BAG IV SCH ×2 (08:16→20:47)
[2022-05-19] MEDS: DOCUSATE SODIUM 100 MG CAP PO SCH ×2 (08:19→20:47)
[2022-05-19] MEDS: APIXABAN 2.5 MG TAB PO SCH ×2 (08:19→20:34)
[2022-05-19] MEDS: FLUCONAZOLE 100 MG TAB PO SCH (08:19)
[2022-05-19] MEDS: buPROPion SR 100 MG TABCR PO SCH ×2 (08:19→20:35)
[2022-05-19] MEDS: BETHANECHOL CHL 25 MG TAB PO SCH ×4 (08:19→20:34)
[2022-05-19] MEDS: MEMANTINE HCL 10 MG TAB PO SCH ×2 (08:19→20:34)
[2022-05-19] MEDS: FERROUS SULFATE 325 MG TAB PO SCH (08:19)
[2022-05-19] MEDS: FOLIC ACID 1 MG TAB PO SCH (08:19)
[2022-05-19] MEDS: POTASSIUM CHLORIDE CRTAB 20 MEQ TABCR PO SCH (08:19)
[2022-05-19] MEDS: FLUDROCORTISONE ACETATE 0.1 MG TAB PO SCH (08:19)
[2022-05-19] MEDS: POLYETHYLENE (MIRALAX) 17 GM PACK PO SCH ×2 (08:20→20:47)
[2022-05-19] MEDS: CEFEPIME 1,000 MG in SYRINGE 0 ML IV SCH (08:28)
--- NOTE | 2022-05-19 10:08 | Urology Progress Note ---
Date of Service May 19, 2022 Assessment & Plan (1) Ureteral stent present: (2) Acute UTI: (3) Chronic suprapubic catheter: Plan: Postop day 3 status post bilateral stent exchange with extent of suprapubic catheter and placement of urethral catheter after dilation. - Afebrile, hypotension improving overnight. - No new labs today at time of visit. - Urine culture 05/17 grew out 80k cfu of Monalisa albicans and 5k cfu of Gram negative bacilli. BCx no growth x 48 hours. - He is currently on Daptomycin, Cefepime, and Fluconazole. Can likely deescalate coverage at this point. - He is tolerating bilateral ureteral stents without bother. - Okay to discontinue urethral catheter today. - Use suprapubic catheter for drainage. - Continue supportive care, antibiotics and medical management per primary team. - Will arrange outpatient follow-up with our service. - will follow peripherally. Admission and Anticipated Discharge Date Admission Date: May 15, 2022 Subjective Patient seen and examined at bedside this morning. He is awake and resting in bed in no acute distress. Patient appears pleasantly confused, difficult to obtain history. Reports that he has pain "all over." Denies fever, chills, nausea or vomiting. SP intact. Michel catheter draining yellow urine with blood tinged sediment. Review of Systems Constitutional: as per Subjective / HPI Gastrointestinal: as per Subjective / HPI Genitourinary: + as per Subjective / HPI Physical Exam Constitutional: no acute distress Respiratory: no respiratory distress and no labored breathing oxymask Cardiovascular: Extremities: + edema (mild bilateral LE edema) Gastrointestinal (Abdomen): Inspection/Auscultation: abdomen normal to inspection; abdomen not distended Neurologic: awake Psychiatric: Orientation: oriented to person Genitourinary: Michel Catheter draining yellow urine with blood tinged sediment. Results & Data Vital Signs (Past 12 Hours) Vital Signs Temp Pulse Pulse Resp BP BP Pulse Ox 05/19/22 08:00 74 05/19/22 08:00 05/19/22 08:14 101 H 20 97 05/19/22 07:01 36.5 C 73 19 91/66 L 95 05/19/22 03:44 36.4 C L 72 20 112/80 98 05/18/22 23:42 75 05/18/22 23:40 73 20 105/64 98 O2 Del Method O2 Flow Rate 05/19/22 08:00 05/19/22 08:00 Nasal Cannula 3 05/19/22 08:14 Nasal Cannula 3 05/19/22 07:01 Nasal Cannula 3 05/19/22 03:44 Nasal Cannula 05/18/22 23:42 05/18/22 23:40 Nasal Cannula PG Care Time/CCT Total # of Minutes Spent Total Time Spent with Patient: Total time spent is greater than 50% in coordination of care (as documented) at patient's floor/unit and/or counseling patient: Coding Level of Care Code 11722 SUB INP/OBS CARE 03/05MIN Diagnoses Ureteral stent present Z96.0 Acute UTI N39.0 Chronic suprapubic catheter Z93.59
[2022-05-19] MEDS ORDERED: FUROSEMIDE INJ 20 MG/2 ML VIAL IV ONE (16:49)
[2022-05-19 18:03] LABS: Albumin Globulin Ratio 0.7 (0.9-2); Albumin Level 2.7 gm/dl (3.4-5.0); BUN Creatinine Ratio 15.7 (10-20); Bilirubin,Total 0.3 mg/dl (0.2-1.0); Calcium 8.7 mg/dl (8.6-10.3); Est GFR (African American) 25.2 ml/min; Est GFR (Non-African American) 21.7 ml/min; Potassium 4.7 mmol/L (3.5-5.1); Total Protein 6.7 gm/dl (6.0-8.3)
[2022-05-19 18:07] LABS: Troponin I High Sensitivity 33.7 pg/ml (0-20)
--- NOTE | 2022-05-19 18:58 | Cardiology Progress Note ---
Date of Service May 19, 2022 Assessment & Plan (1) Atrial fibrillation with RVR: (2) Heart failure with mid-range ejection fraction (HFmEF): (3) Moderate to severe aortic stenosis: (4) Elevated troponin: (5) CAD (coronary artery disease): (6) Anemia: (7) Dyslipidemia: (8) Pacemaker: Plan ASSESSMENT/PLAN: 1. Atrial fibrillation: Converted while on amiodarone drip. While on amiodarone, would recommend replacing simvastatin with alternative statin therapy. Simvastatin has been on hold. Recommend monitoring TSH and transaminase levels going forward. TSH and transaminase levels normal. Can transition to oral amiodarone tomorrow morning, 400 mg p.o. twice daily for 1 week and then 200 mg daily. Continue anticoagulation for stroke risk reduction. Given renal function and age, Eliquis 2.5 mg daily is appropriate. Beta- christina has been held due to hypotension. 2. Aortic stenosis: Most recent echo done locally was in September 2021. As moderate to severe aortic stenosis based on more recent echoes including outside hospital echo. Can continue to follow. 3. Heart failure with midrange EF: Appears hypervolemic. Discussed with primary hospitalist and recommend diuresis. Allergies list torsemide with anaphylactic reaction however he received furosemide in September 2021 and appeared to tolerate it well when reviewing old records. Would try to achieve net negative fluid balance of 1 L or more negative in the next 24 hours. The last 2 days he is over 2.5 L positive. Low-sodium diet. Strict I's and O's. Daily weights if possible. 4. Pacemaker: Has followed with Dr. Fenton in the past but has not been seen recently. Generator change in 2017. 5. CAD s/p PCI: Reported PCI in 1998 at the time of MD and has had repeat catheterizations based on outpatient records, more recently 2014. Statin therapy can be resumed when okay with hospitalist service. Would recommend agent other than simvastatin while on amiodarone. Not on beta-christina currently due to hypotension earlier this hospital stay. No reported angina. Peak high- sensitivity troponin thus far 33.7, but in the setting of acute UTI, hypotension during this hospital stay, and A-fib with RVR. 6. UTI: Has chronic suprapubic catheter and ureteral stent. As per urology. 7. Anemia: As per primary hospitalist service. Seems to be a chronic issue. 8. Disposition: Cardiology will continue to follow. Patient care communicated with Dr. Shay, of the primary hospitalist service. Given chronic heart failure and multiple comorbidities, will place heart failure program referral. On discharge, follow-up also with primary tape edge machine operator, Dr. Fenton. Highly complex medical issues. Admission and Anticipated Discharge Date Admission Date: May 15, 2022 Subjective Patient seen this afternoon. He was mumbling when I entered the room and continued to mumble. Hospitalist reports that he is confused at baseline with waxing and waning. He denies shortness of breath. He otherwise did not answer questions. He was alone in his hospital room. Physical Exam Physical Exam: Gen.: No acute distress. Awake. HEENT: Anicteric sclera. Neck: Probable JVD, but did not cooperate with exam. Cardiac: Regular. Normal S1. S2 difficult to auscultate. 2/6 late peaking systolic ejection murmur heard best at right upper sternal border. . Pulmonary: Bibasilar crackles. Abdomen: Soft, nontender, nondistended, with normoactive bowel sounds. No bruits noted. Extremities: 2+ radial pulses bilaterally. 2+ posterior tibialis pulses bilaterally. Bilateral upper and lower extremity edema. No cyanosis. Results & Data Vital Signs (Past 12 Hours) Vital Signs Temp Pulse Pulse Resp BP Pulse Ox O2 Del Method 05/19/22 18:34 97 H 119/63 05/19/22 15:35 85 05/19/22 15:11 36.6 C 92 H 26 H 140/91 91 Oxymask 05/19/22 14:46 87 22 88 L Oxymask 05/19/22 11:35 86/50 L 05/19/22 10:50 36.4 C L 72 20 93/51 L 96 Oxymask 05/19/22 08:00 74 05/19/22 08:00 Nasal Cannula 05/19/22 08:14 101 H 20 97 Nasal Cannula 05/19/22 07:01 36.5 C 73 19 91/66 L 95 Nasal Cannula O2 Flow Rate 05/19/22 18:34 05/19/22 15:35 05/19/22 15:11 7 05/19/22 14:46 4 05/19/22 11:35 05/19/22 10:50 4 05/19/22 08:00 05/19/22 08:00 3 05/19/22 08:14 3 05/19/22 07:01 3 Intake & Output 05/17/22 05/18/22 05/19/22 05/20/22 06:59 06:59 06:59 06:59 Intake Total 2690 / 2690 2531.667 / 2531.667 2041.135 / 2041.135 560.000 / 560.000 Output Total 4501 / 4501 1226 / 1226 700 / 700 175 / 175 Balance -1811 / -1811 1305.667 / 3777.464 4481.135 / 1341.135 385.000 / 385.000 Weight 158 lb 11.725 oz 174 lb 6.17 oz 171 lb 11.841 oz Laboratory Results Laboratory Results - last 24 hr 05/19/22 05/19/22 17:23 17:23 Sodium 143 Potassium 4.7 Chloride 115 H Carbon Dioxide 21 Anion Gap 7 BUN 41 H Creatinine 2.61 H D Est Cr Clr Drug Dosing 20.0 Est GFR ( Amer) 25.2 Est GFR (Non-Af Amer) 21.7 BUN/Creatinine Ratio 15.7 Glucose 117 H Calcium 8.7 Total Bilirubin 0.3 AST 19 ALT 12 Alkaline Phosphatase 92 Troponin I High Sens 33.7 H B-Natriuretic Peptide 428 H Total Protein 6.7 Albumin 2.7 L Globulin 4.0 Albumin/Globulin Ratio 0.7 L Diagnostic Findings Telemetry personally reviewed: A-fib converted to sinus rhythm on 05/18/2022 at 2029. Remains in sinus rhythm this afternoon. Labs reviewed and notable for increased BNP from 10/08/2021, improving renal function, and longstanding anemia. Outside hospital echo report from 04/09/2022 reported mildly reduced LV systolic function with an EF of 45 to 50% but no regional wall motion abnormalities. Left atrial dilation. Normal RV systolic function. Mild MR. Moderate aortic stenosis. Records reviewed. Chest x-ray from 05/18/2022 reports mildly progressed mixed interstitial and alveolar opacities. Fluid balance demonstrates positive I's O's over the past 2 to 3 days. Urine culture from 05/17/2022 positive for Monalisa albicans and gram-negative bacilli. Urology note reviewed. Medications Administered Current Inpatient Medications Acetaminophen (Acetaminophen 325 Mg Tab) 325 mg PO Q4 PRN PRN Reason: pain (1,2,3), fever, headache Stop: 06/14/22 18:38 Last Admin: 05/17/22 03:19 Dose: 325 mg Albuterol (Albut/Ipratrop 3mg/0.5mg Neb 3 Ml Vial) 3 ml NEB QIDR FLEX; Protocol Stop: 06/14/22 18:59 Last Admin: 05/19/22 18:54 Dose: 3 ml Albuterol (Albuterol 0.083% Nebu Soln 3 Ml Vial) 2.5 mg INH QID PRN; Protocol PRN Reason: shortness of breath or wheezing Stop: 06/14/22 18:38 Albuterol (Albut/Ipratrop 3mg/0.5mg Neb 3 Ml Vial) 3 ml INH Q6H PRN; Protocol PRN Reason: wheezing Stop: 06/14/22 18:38 Apixaban (Apixaban 2.5 Mg Tab) 2.5 mg PO BID [facility] Stop: 06/17/22 08:59 Last Admin: 05/19/22 08:19 Dose: 2.5 mg Bethanechol Chloride (Bethanechol Chl 25 Mg Tab) 50 mg PO QID [facility] Stop: 06/14/22 18:38 Last Admin: 05/19/22 17:04 Dose: 50 mg Bupropion HCl (Bupropion Sr 100 Mg Tabcr) 100 mg PO BID [facility] Stop: 06/14/22 20:59 Last Admin: 05/19/22 08:19 Dose: 100 mg Docusate Sodium (Docusate Sodium 100 Mg Cap) 100 mg PO BID [facility] Stop: 06/14/22 20:59 Last Admin: 05/19/22 08:19 Dose: 100 mg Donepezil HCl (Donepezil Hcl 10 Mg Tab) 10 mg PO HS [facility] Stop: 06/14/22 20:59 Last Admin: 05/18/22 20:40 Dose: 10 mg Famotidine (Famotidine 40 Mg Tablet) 40 mg PO DAILYBB [facility] Stop: 06/15/22 06:29 Last Admin: 05/19/22 05:49 Dose: 40 mg Ferrous Sulfate (Ferrous Sulfate 325 Mg Tab) 325 mg PO QAM [facility] Stop: 06/15/22 08:59 Last Admin: 05/19/22 08:19 Dose: 325 mg Fluconazole (Fluconazole 100 Mg Tab) [facility] [place]: 05/27/22 08:59 Last Admin: 05/19/22 08:19 Dose: 200 mg Folic Acid (Folic Acid 1 Mg Tab) 1 mg PO QAM [facility] Stop: 06/15/22 08:59 Last Admin: 05/19/22 08:19 Dose: 1 mg Gabapentin (Gabapentin 300 Mg Cap) 300 mg PO [facility] Stop: 06/14/22 20:59 Last Admin: 05/18/22 20:40 Dose: 300 mg Amiodarone HCl/Dextrose (Nexterone / D5w) 360 mg in 200 mls @ 16.667 mls/hr IV .Q12H [facility] Stop: 06/17/22 08:14 Last Admin: 05/19/22 08:16 Dose: 0.5 mg/min, 16.7 mls/hr Ceftriaxone Sodium 1,000 mg/ (Dextrose) 50 mls @ 100 mls/hr IV Q24H [facility]; Protocol Stop: 05/29/22 19:59 Isosorbide Mononitrate (Isosorbide [place] Extended Rel 30 Mg Tabcr) [facility] [place] [facility] [place]: 06/15/22 08:59 Last Admin: 05/17/22 10:43 Dose: Not Given Levothyroxine Sodium (Levothyroxine Sodium 112 Mcg Tablet) 112 mcg PO [facility] Stop: 06/14/22 20:59 Last Admin: 05/18/22 20:40 Dose: 112 mcg Memantine (Memantine Hcl 10 Mg Tab) 10 mg PO BID [facility] Stop: 06/14/22 20:59 Last Admin: 05/19/22 08:19 Dose: 10 mg Metoprolol Tartrate (Metoprolol Tartrate 25 Mg Tab) 25 mg PO Q6HWA [facility] Stop: 06/17/22 17:59 Last Admin: 05/19/22 18:33 Dose: 25 mg Polyethylene Glycol (Polyethylene (Miralax) 17 Gm Pack) 17 gm PO BID [facility] Stop: 06/16/22 09:59 Last Admin: 05/19/22 08:20 Dose: 17 gm Potassium Chloride (Potassium Chloride Crtab 20 Meq Tabcr) 20 meq PO DAILY [facility] Stop: 06/15/22 08:59 Last Admin: 05/19/22 08:19 Dose: 20 meq Simvastatin (Simvastatin 80 Mg Tab) 80 mg PO HS [facility] Stop: 06/14/22 20:59 Tamsulosin HCl (Tamsulosin Hcl 0.4 Mg Cap) 0.4 mg PO HS [facility] Stop: 06/14/22 20:59 Last Admin: 05/18/22 20:40 Dose: 0.4 mg Tramadol HCl (Tramadol Hcl 50 Mg Tablet) 50 mg PO TID PRN PRN Reason: Pain Stop: 06/14/22 18:38 PG Care Time/CCT Total # of Minutes Spent Total Time Spent with Patient: Total time spent is greater than 50% in coordination of care (as documented) at patient's floor/unit and/or counseling patient: Coding Level of Care Code 99366 SUB INP/OBS CARE 3/50MIN Diagnoses Atrial fibrillation with RVR I48.91 Heart failure with mid-range ejection fraction (HFmEF) I50.22 Moderate to severe aortic stenosis I35.0 Elevated troponin R77.8 CAD (coronary artery disease) I25.10 Anemia D64.9 Dyslipidemia E78.5 Pacemaker Z95.0
[2022-05-19] MEDS: cefTRIAXone SODIUM 1,000 MG in DEXTROSE 5% AD-VAN 50 ML IV SCH (20:28)
[2022-05-19] MEDS: DONEPEZIL HCL 10 MG TAB PO SCH (20:34)
[2022-05-19] MEDS: GABAPENTIN 300 MG CAP PO SCH (20:34)
[2022-05-19] MEDS: LEVOTHYROXINE SODIUM 112 MCG TABLET PO SCH (20:35)
[2022-05-19] MEDS: TAMSULOSIN HCL 0.4 MG CAP PO SCH (20:36)
[2022-05-19 20:54] LABS: Base Excess VBG -5.7 mEq/L; HCO3 VBG 19 mmol/L; Oxygen Saturation VBG 61.9 %; PCO2 VBG 36 mmHg (38-50); PO2 VBG 36 mmHg; pH VBG 7.34 (7.36-7.41)
--- NOTE | 2022-05-19 22:07 | Hospitalist Progress Note ---
Date of Service May 19, 2022 Assessment & Plan (1) Acute UTI: Plan: -Admit to med/tele -The patient is currently afebrile hemodynamically stable, and stable on RA -Patient has a long history of drug resistant UTI's due to his chronic suprapubic cath -Previous urine cultures have grown Pseudomonas sensitive to cefepime, Coag negative Staphylococcus and Corynbact.sp not urealyticum sensitive to Daptomycin and Vancomycin, and Citrobacter farmeri sensitive to cefepime -S/P one dose of Cefepime in the ED, will continue with Cefepime and Daptomycin for now, follow urine and blood cutlures and tailor abx accordingly -Appreciate input from Urology. -Patient's urine is now clear, will continue current antibiotics. -BL SCD's and Eliquis for DVT PPX Patient has continued to be intermittently hypotensive, this appears to be due to his aortic stenosis. will consider trial of metoprolol given his elevated heart rate. Cardiology is on board. Added midodrine and fiorinef for his hypotension, however concern for tachyphylaxis. will hold off midodrine. Patient appears to be hypervolemic on 05/19, will hold fiorinef and will order lasix. (2) Confusion: Plan: -At this time the patient's confusion is most likely associated with his acute UTI, GIOVANY, and dehydration due to recent diarrhea -No focal neuro defects, patient has presented like this on previous admissions with UTI -Fall precautions, aspiration precautions, bedside dysphagia screen ordered -Continue to monitor mental status with treatment of his acute issues Appears to be at baseline (3) Elevated troponin: Plan: -Initial high sen trop elevated at 24 -ECG read listed possible inferior infarct but these is extensive artifact and no significant ST segment or T-wave changes on my read -Patient is asymptomatic -Continue to monitor on tele (4) GIOVANY (acute kidney injury): Plan: -Cr noted to be 3.0 today, baseline appears closer to 1.5-1.6 -CT of the abd/pelvis show his ureteral stents to be in adequate position with stable moderate right and severe left hydronephrosis -GIOVANY likely due to dehydration, current UTI, and could also have been exacerbated with recent Bactrim therapy -Avoid Nephrotoxic agents, monitor intake and output, new myles placed in ED -Urology consulted -Monitor daily renal function and electrolytes Creatinine continues to worsen, will consider nephorlogy consult. (5) Paroxysmal atrial fibrillation: Plan: -as above. continue Eliquis (6) Diarrhea: Plan: -Patient's family notes 4 days of 3-4 non-bloody bowel movements daily -CT fo the abd/pelvis show Constipation with possible mild stercoral proctitis, similar to the prior study and no signs of bowel obstruction -Could be infectious but could also be due to his stercoral colitis and constipation -Will continue oral bowel regimen with BID colace and daily miralax and will give a tap water enema now, continue to monitor for consistent bowel movements -Stool studies ordered by the ED, continue to follow (7) Chronic diastolic heart failure: Plan: -Appears hypervolemic on exam -will hold off IVF and place diuretics (8) Hypothyroidism: Plan: -Will obtain TSH -Continue levothyroxine (9) Dementia: Plan: -Continue Namenda Plan the patient was discussed with Dr. Arce at the time of the admission Admission and Anticipated Discharge Date Admission Date: May 15, 2022 Subjective Patient is confused Review of Systems Review of Systems: All systems reviewed & are unremarkable except as noted in HPI & below Physical Exam Physical Exam: General: In no acute distress, stated age, chronically ill appearing HEENT: Normocephalic, atraumatic, no scleral icterus, pupils around round, symmetrical, and reactive to light, moist mucus membranes, trachea midline, no thyromegaly Chest/Pulm: No respiratory distress, symmetrical chest expansion, scattered rhonchi and wheezing throughout Cardiac: RRR, systolic murmur noted Abdomen: Negative for ascites and bruising, normoactive bowel sounds, soft, mildly tender to palpation in the lower and mid abdominal kang, no rebound tenderness Musculoskeletal: Symmetrical and without signs of acute trauma, upper and lower extremities with full ROM, no atrophy, spasticity, or flaccidity Extremities: Radial, dorsalis pedis, and posterior tibial pulses are intact and symmetrical, no edema noted in the BL LE's Skin: Warm, dry, no rashes , lesions, or scars noted Neuro: Alert and oriented to person only, no focal defects, CN II-XII tested and intact, mild tremor noted Psych: No acute distress, pleasantly confused, calm and cooperative during the exam Results & Data Results & Data Vital Signs (Past 12 Hours) Vital Signs Temp Pulse Pulse Resp BP Pulse Ox O2 Del Method 05/19/22 19:00 99 H 23 135/82 94 BiPAP 05/19/22 18:54 100 H 28 H 91 BiPAP 05/19/22 18:51 101 H 28 H 91 05/19/22 18:34 97 H 119/63 05/19/22 15:35 85 05/19/22 15:11 36.6 C 92 H 26 H 140/91 91 Oxymask 05/19/22 14:46 87 22 88 L Oxymask 05/19/22 11:35 86/50 L 05/19/22 10:50 36.4 C L 72 20 93/51 L 96 Oxymask O2 Flow Rate FiO2 05/19/22 19:00 05/19/22 18:54 50 05/19/22 18:51 40 05/19/22 18:34 05/19/22 15:35 05/19/22 15:11 7 05/19/22 14:46 4 05/19/22 11:35 05/19/22 10:50 4 PG Care Time/CCT Total # of Minutes Spent Total Time Spent with Patient: Total time spent is greater than 50% in coordination of care (as documented) at patient's floor/unit and/or counseling patient: Coding Level of Care Code 93881 SUB INP/OBS CARE 3/50MIN Diagnoses Acute UTI N39.0 Confusion R41.0 Elevated troponin R77.8 GIOVANY (acute kidney injury) N17.9 Paroxysmal atrial fibrillation I48.0 Diarrhea R19.7 Chronic diastolic heart failure I50.32 Hypothyroidism E03.9 Hypothyroidism type: acquired Dementia F03.90 (8) Hypothyroidism Hypothyroidism type: acquired Qualified Code(s): E03.9 - Hypothyroidism, unspecified
[2022-05-19] MEDS ORDERED: LACTATED RINGER'S 500 ML IV ONE (22:50)
[2022-05-19] MEDS ORDERED: ACETAMINOPHEN 1000 MG/100 ML IV IV ONE (22:55)
[2022-05-19] MEDS: ACETAMINOPHEN 1,000 MG/100 ML VIAL IV PRN (23:16)
[2022-05-20] MEDS: METOPROLOL TARTRATE 25 MG TAB PO SCH ×3 (00:27→12:37)
[2022-05-20] MEDS: FAMOTIDINE 40 MG TABLET PO SCH (05:58)
[2022-05-20 06:44] LABS: Hematocrit (blood only) 26.7 % (42.0-52.0); Hemoglobin 8.5 g/dl (14.0-18.0); Mean Corpuscular Hemoglobin 28.7 pg (25.0-34.0); Mean Corpuscular Hgb Conc 31.8 g/dL (32.0-36.0); Mean Corpuscular Volume 90.2 fL (80.0-100.0); Mean Platelet Volume 10.2 fL (9.4-12.4); Platelet Count 276 K/uL (130-400); RDW Coefficient of Variation 17.2 % (11.5-14.5); RDW Standard Deviation 56.1 fL (36.4-46.3); Red Blood Count 2.96 M/uL (4.70-6.10); White Blood Count 16.18 K/ul (4.8-10.8)
[2022-05-20] MEDS: ALBUT/IPRATROP 3MG/0.5MG NEB 3 ML VIAL NEB SCH ×4 (06:52→20:40)
[2022-05-20 06:59] LABS: BUN Creatinine Ratio 14.5 (10-20); Calcium 8.4 mg/dl (8.6-10.3); Creatinine Clr Calc Pharmacy 18.1 ml/min; Est GFR (African American) 22.3 ml/min; Est GFR (Non-African American) 19.2 ml/min; Potassium 4.4 mmol/L (3.5-5.1)
[2022-05-20] MEDS: FOLIC ACID 1 MG TAB PO SCH (08:13)
[2022-05-20] MEDS: FERROUS SULFATE 325 MG TAB PO SCH (08:13)
[2022-05-20] MEDS: APIXABAN 2.5 MG TAB PO SCH ×2 (08:13→21:16)
[2022-05-20] MEDS: MEMANTINE HCL 10 MG TAB PO SCH ×2 (08:13→21:17)
[2022-05-20] MEDS: BETHANECHOL CHL 25 MG TAB PO SCH ×4 (08:13→21:16)
[2022-05-20] MEDS: buPROPion SR 100 MG TABCR PO SCH ×2 (08:14→21:15)
[2022-05-20] MEDS: FLUCONAZOLE 100 MG TAB PO SCH (08:14)
[2022-05-20] MEDS: POTASSIUM CHLORIDE CRTAB 20 MEQ TABCR PO SCH (08:20)
[2022-05-20] MEDS: DOCUSATE SODIUM 100 MG CAP PO SCH ×2 (08:20→21:20)
[2022-05-20] MEDS ORDERED: FUROSEMIDE INJ 20 MG/2 ML VIAL IV ONE ×2 (08:50→16:16)
[2022-05-20] MEDS: POLYETHYLENE (MIRALAX) 17 GM PACK PO SCH ×2 (09:02→21:20)
[2022-05-20 10:23] LABS: C Reactive Protein 28.42 mg/dl (0-0.5)
--- NOTE | 2022-05-20 10:32 | Nephrology Consultation ---
Date of Consultation May 20, 2022 Assessment & Plan (1) GIOVANY (acute kidney injury): * Nonoliguric GIOVANY/CKD due to relative hypotension in the setting of UTI, atrial fibrillation w/ RVR and severe * Will order urine for microscopy to check for ATN casts * Patient has 3rd spacing of volume w/ dependent edema. Pulmonary edema is related to severe and atrial fibrillation * Mr. Momin is not a dialysis candidate due to his advanced age, frail health and essentially bedridden status * Recommend gentle diuresis, up to 1 L/day * Monitor PRP, UO (2) Chronic kidney disease with active medical management without dialysis, stage 3 (moderate): * Baseline Cr 1.7 - 2.0. BPH w/ chronic BHARDWAJ requiring bilateral ureteral stents and suprapubic myles catheter. 06/[address] shows bilateral hydronephrosis. L renal cortex is severely atrophic (3) Atrial fibrillation with RVR: * On Metoprolol, Amiodarone and Apixaban therapy (4) Aortic stenosis: * 05/01 Echocardiogram: LVEF 45-50%,moderate (5) Acute UTI: * On IV Ceftriaxone (6) Diarrhea: * Stool testing negative for infectious pathogens History of Present Illness Reason for Consultation: GIOVANY/CKD Attending Physician: Kevin Shay History of Present Illness Mr. Momin is an 82 year old white male who is seen at the request of Dr. Shay for evaluation of GIOVANY/CKD. Information for the HPI is obtained primarily from the EMR and is summarized as follows: Mr. Momin has CKD stage G3b (moderate impairment). Baseline Cr has been 1.7-2.0. Primary Photolithographic Stripper has been Dr. Morrow. Outpatient evaluation has revealed an atrophic/nonfunctional L kidney. Patient has documented h/o BPH with BHARDWAJ requiring chronic suprapubic catheter and bilateral ureteral stents. Last Nephrology outpatient visit was 12/31. This was a telehealth visit. Patient was noted to have repeated hospitalization for recurrent UTI/pyelonephritis and had become essentially bed bound. He was not felt to be a candidate if his kidneys fail and was discharged from the Nephrology practice. Mr. Momin's medical history is also significant for ASCVD, moderate , pacer, COPD, CHANELLE, dementia, HTN and kidney stones. Mr. Momin was admitted to [facility] 05/15/22 with progressive confusion and diarrhea. Family reports patient having 3-4 liquid BM/day. Clean catch urine was positive for grisel albicans and gram negative bacilli. Patient is on oral Fluconazole and IV Ceftriaxone therapy. His hospital course has been complicated by atrial fibrillation w/ RVR and hypotension into the 70's systolic. Serum Cr has risen to 2.89. Patient remains nonoliguric. Allergies Allergy/AdvReac Type Severity Reaction Status Date / Time captopril Allergy Severe Anaphylaxis Verified 02/05/22 17:27 morphine Allergy Severe Anaphylaxis Verified 02/05/22 21:27 oxaprozin Allergy Severe Anaphylaxis Verified 02/05/22 17:27 torsemide Allergy Severe Anaphylaxis Verified 02/05/22 17:27 hydrocodone Allergy Mild Rash Verified 02/05/22 17:27 Home Medications Medication Instructions Recorded Confirmed Type folic acid 1 mg tablet 1 mg PO QAM #90 tabs 10/04/19 05/15/22 Rx albuterol sulfate 90 mcg/actuation 2 puff inhalation Q6H PRN 07/09/20 05/15/22 Rx aerosol inhaler (Ventolin HFA) cough/wheeze/shortness of breath #1 inhaler cyanocobalamin (vitamin B-12) 1,000 mcg PO QAM 07/16/20 05/15/22 History 1,000 mcg tablet ferrous sulfate 325 mg (65 mg 325 mg PO QAM 07/16/20 05/15/22 History iron) tablet,delayed release polyethylene glycol 3350 17 gram 17 g PO DAILY PRN Constipation 07/16/20 05/15/22 History oral powder packet (Miralax) ascorbic acid (vitamin C) 500 mg 500 mg PO QAM 10/22/20 05/15/22 History tablet (Vitamin C) docusate sodium 100 mg capsule 100 mg PO BID 10/22/20 05/15/22 History (Stool Softener) albuterol sulfate 2.5 mg/3 mL 2.5 mg (3 mL) inhalation QID PRN 04/16/21 05/15/22 Rx (0.083 %) solution for nebulization shortness of breath or wheezing #75 mL ipratropium 0.5 mg-albuterol 3 mg 3 ml inhalation Q6H PRN wheezing 06/20/21 05/15/22 Rx (2.5 mg base)/3 mL nebulization #90 mL soln tramadol 50 mg tablet 50 mg PO TID PRN Pain #30 tabs 09/03/21 05/15/22 Rx memantine 10 mg tablet (Namenda) 10 mg PO BID #180 tabs 09/09/21 05/15/22 Rx donepezil 10 mg tablet 10 mg PO HS #90 tabs 09/23/21 05/15/22 Rx calcium carbonate 500 mg-vitamin 1 tab PO DAILY 09/29/21 05/15/22 History D3 5 mcg (200 unit) tablet levothyroxine 112 mcg tablet 112 mcg PO HS #90 tabs 01/15/22 05/15/22 Rx (Synthroid) famotidine 40 mg tablet (Pepcid) 40 mg PO DAILYBB #90 tabs 01/20/22 05/15/22 Rx apixaban 2.5 mg tablet (Eliquis) 2.5 mg PO BID #180 tabs 02/24/22 05/15/22 Rx bupropion HCl 100 mg tablet,12 hr 100 mg PO BID #60 ea 02/24/22 05/15/22 Rx sustained-release gabapentin 300 mg capsule 300 mg PO HS #90 caps 02/24/22 05/15/22 Rx isosorbide mononitrate 30 mg 30 mg PO QAM #90 tabs 03/03/22 05/15/22 Rx tablet,extended release 24 hr tamsulosin 0.4 mg capsule 0.4 mg PO HS #90 caps 03/27/22 05/15/22 Rx simvastatin 80 mg tablet 80 mg PO HS #90 tabs 04/14/22 05/15/22 Rx bethanechol chloride 50 mg tablet 50 mg PO QID #360 tabs 04/28/22 05/15/22 Rx potassium chloride 20 mEq 20 meq PO DAILY #30 tabs 05/14/22 05/15/22 Rx tablet,extended release acetaminophen 325 mg tablet 325 mg PO Q4 PRN pain 05/15/22 05/15/22 History carvedilol 6.25 mg tablet 6.25 mg PO BIDWMEAL #180 tabs 05/15/22 Rx Patient History Medical History (Updated 05/20/22 @ 10:56 by William Wright MD) Acute kidney injury Anemia Anticoagulant long-term use Anxiety and depression Aortic stenosis Mild (MG 11 mmHg, UZMA 1.1 cm2) per 11/2015 ECHO. Valve not well visualized on echo 03/22/20. Aortic stenosis Severe per 09/30/21 ECHO UZMA 0.8cm Atrial fibrillation dx 2017 >on Eliquis, no cardioversions Avascular necrosis of bone of left hip (~05/2020) severe avascular necrosis and severe osteoarthritis to left hip joint with moderate advanced right hip osteoarthritis Bilateral renal masses BPH w urinary obs/LUTS CAD (coronary artery disease) Multiple cardiac stents (x4 total)- most recent 3+ years ago 1997- LCx- stent Most recent cath 2013 per cardio records "LAD okay, LCX OM 30, RCA ok, NL EF" CAD (coronary artery disease), ambler coronary artery S/P BMS to OM (1997). Caths also 2006, 2008 and 2013, no stents placed. Most recent cath in 2013 showed no angiographically significant stenosis other than 20-30% in-stent restenosis of OM. Cardiac pacemaker in situ Implanted 2008 (03/[address] [employer]fo. Replaced 2016. > Last pacer check 04/10/20 [facility] > Dr. 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 On donepezil and memantine, follows with neurology Dyslipidemia Edema of both upper extremities Elevated troponin Facial droop GERD (gastroesophageal reflux disease) controlled Hematuria History of kidney stones History of CT (myocardial infarction) 1997- Follows with Dr. Hodge/[facility] History of recent hospitalization Admitted to [facility] 07/10/21-07/14/21- for staph bacteremia secondary to infected wound at suprapubic catheter site, UTI, acute metabolic encephalopathy; per 08/09/21 neuro note- bacteremia resolved with abxs, acute metabolic encephalopathy resolved, mental status back to baseline, UTI/GIOVANY resolved after abx. HTN (hypertension), benign Hx of gastric ulcer Hx of sleep apnea Does not use CPAP at home Hydronephrosis Hydronephrosis Hypertension Hypokalemia Hypothyroidism Iron deficiency anemia Multiple drug allergies Nocturnal hypoxia On oxygen Pacemaker (2008) [facility] [employer] [id number] DDD- secondary to SN dysfunction and SSS Initially implanted in 2008- generator change in 2017 Paroxysmal atrial fibrillation NO HX CARDIOVERSION On Eliquis Presence of suprapubic catheter Recurrent UTI Secondary hyperparathyroidism of renal origin Sleep apnea NO DEVICE USED UNABLE TO TOLERATE CPAP Stage 3b chronic kidney disease Stage 3b chronic kidney disease Stercoral colitis Suprapubic catheter In place secondary to neurogenic bladder UTI (urinary tract infection) Wheezing Surgical History H/O total knee replacement R/L History of back surgery MULTIPLE History of cardiac cath Multiple cardiac stents (x4 total)- most recent 3+ years ago History of carpal tunnel release of both wrists History of cataract surgery B/L History of colonoscopy History of lithotripsy History of lumbar fusion History of prostate surgery Partial prostatectomy History of thyroidectomy secondary to goiter History of tooth extraction All teeth S/P cystoscopy with ureteral stent placement last 05/2021 @ [facility] Dr. William Medrano- Cystoscopy, Bilateral retrograde pyelogram, Bilateral ureteral stent exchange, Left aspiration and culture S/P TURP S/P ureteral stent placement Cysto, B/L RPG, right ureteroscopy, stent exchange: 07/06/18: LMA#5 at [facility] Cysto stent exchange (11/2018) Cystoscopy, stent exchange, suprapubic catheter (04/30/20): MAC at [facility] S/P ureteral stent placement Family History Father Diabetes Mother Coronary heart disease Hypertension Brother Seizure Other No family history of adverse response to anesthesia Denies family history of Ovarian cancer Prostate cancer Myocardial infarction Breast cancer Colorectal cancer Social History Smoking Status: Former smoker Tobacco Type: Cigarettes Age Started Using Tobacco: 15; Age Quit Using Tobacco: 59; packs per day: 2; Second Hand Exposure: No; Hx Alcohol Use: No Hx Substance Use: No Preferred Language: Polish Communication Ability: Effective Communication Ability Comment: "some things he will remember/some wont" per can sign own consent Visual Impairment: No Limitations Hearing Ability: Hard of Hearing Service Superintendent Required: No Beliefs That Will Affect Care: None marital status: Current Living Situation: Spouse and Family Current Living Situation Comment: home with spouce and 2 daughters current occupational status: retired How many Children do You have: 3 Other Information That Helps Us Care for You: No Feels Safe at Home: Yes Safety Concerns: Feels Safe At This Time Childhood Exposure to Second-Hand Smoke: No caffeine: Yes (Coffee 3 per day.) during the past year weight has: remained stable Dental Care, Regularly: No Physical Activity Frequency: Does not Exercise Seatbelt Use: always Sunscreen Use: No Assistive Devices: Hospital Bed, Mechanical Lift and Wheelchair Review of Systems Review of Systems: Unobtainable due to CPAP therapy Physical Exam Physical Exam: Telemetry shows atrial fibrillation w/ HR 61 bpm Constitutional: + ill appearing (on CPAP) Eyes: PERRL, conjunctivae normal, anicteric sclerae ENMT: external ear and nose normal, oropharynx normal Neck: trachea midline, no thyromegaly Respiratory: Auscultation: + rales Cardiovascular: Rate/Rhythm: + irregularly irregular Extremities: + edema (1+ dependent edema) Gastrointestinal (Abdomen): normal bowel sounds, soft, nontender, no hepatosplenomegaly Neurologic: awake, will speak name. Knows that he is in the hospital. Does not follow commands Results & Data Vital Signs (Past 12 Hours) Vital Signs Temp Pulse Pulse Resp BP BP Pulse Ox 05/20/22 07:20 35.6 C L 61 24 142/78 H 91 05/20/22 06:52 64 24 94 05/20/22 06:52 64 21 94 05/20/22 03:45 36.4 C L 60 22 112/53 L 94 05/20/22 02:31 36.4 C L 60 22 117/57 L 95 05/20/22 02:06 61 26 H 96 05/20/22 00:32 73 05/19/22 22:44 38.4 C H 76 35 H 75/39 L 90 O2 Del Method FiO2 05/20/22 07:20 BiPAP 05/20/22 06:52 50 05/20/22 06:52 BiPAP 50 05/20/22 03:45 BiPAP 50 05/20/22 02:31 BiPAP 50 05/20/22 02:06 50 05/20/22 00:32 05/19/22 22:44 BiPAP 50 Laboratory Results Laboratory Tests 11/12/21 11/30/21 02/05/22 06:27 00:00 14:20 WBC Hgb Hct Plt Count Sodium Potassium Chloride Carbon Dioxide BUN Creatinine 1.71 H 1.75 H 1.56 H Est GFR (Non-Af Amer) Glucose Urine Color Ur Specific [place] Urine Protein Urine Blood Ur Leukocyte Esterase Urine RBC Urine WBC Urine Yeast 02/10/22 02/11/22 02/12/22 10:14 08:15 14:18 WBC Hgb Hct Plt Count Sodium Potassium Chloride Carbon Dioxide BUN Creatinine 1.55 H 1.50 H 1.47 H Est GFR (Non-Af Amer) Glucose Urine Color Ur Specific [place] Urine Protein Urine Blood Ur Leukocyte Esterase Urine RBC Urine WBC Urine Yeast 04/21/22 05/15/22 05/15/22 09:50 12:53 13:49 WBC Hgb Hct Plt Count Sodium Potassium Chloride Carbon Dioxide BUN Creatinine 1.76 H 3.02 H Est GFR (Non-Af Amer) Glucose Urine Color Yellow Ur Specific [place] >= 1.030 Urine Protein 2+ H Urine Blood 3+ H Ur Leukocyte Esterase 3+ H Urine RBC >30 H Urine WBC >30 H Urine Yeast Budding w/ Hyphae A 05/16/22 05/17/22 05/18/22 07:16 06:12 02:43 WBC Hgb Hct Plt Count Sodium Potassium Chloride Carbon Dioxide BUN Creatinine 2.82 H 3.35 H D 2.97 H D Est GFR (Non-Af Amer) Glucose Urine Color Ur Specific [place] Urine Protein Urine Blood Ur Leukocyte Esterase Urine RBC Urine WBC Urine Yeast 05/19/22 05/20/22 05/20/22 17:23 06:13 06:13 WBC 16.18 H Hgb 8.5 L Hct 26.7 L Plt Count 276 Sodium 145 Potassium 4.4 Chloride 115 H Carbon Dioxide 21 BUN 42 H Creatinine 2.61 H D 2.89 H Est GFR (Non-Af Amer) 19.2 Glucose 141 H Urine Color Ur Specific [place] Urine Protein Urine Blood Ur Leukocyte Esterase Urine RBC Urine WBC Urine Yeast Laboratory Tests 05/15/22 05/15/22 Unknown Unknown Stool Rotavirus A PCR Not Detected Stl Adenov F 40/41 PCR Not Detected Stool Campylobacter PCR Not Detected Stl C. diff Tox B Gene Negative Cdiff Gene Stl E.coli Shiga Tox PCR Not Detected Stool Giardia Lamblia PCR Not Detected Stl Shigella/EIEC PCR Not Detected Stool Vibrio (PCR) Not Detected Stl Norovirus GI/GII PCR Not Detected 05/15/22 Blood culture - NGTD 05/15/22 Urine, clean catch - grisel albicans, gram negative bacilli Diagnostic Findings 05/15/[address]: 1. Unchanged moderate right and severe left hydronephrosis with stable positioning of the ureteral stents. 2. There is a punctate stone within the lower pole of the right kidney. No ureteral stones identified. 3. Bladder wall thickening with adjacent fat stranding, unchanged. The bladder is decompressed by suprapubic catheter. Recommend correlation with urinalysis to exclude a cystitis. 4. Constipation with possible mild stercoral proctitis. This is similar to the prior study. 5. No evidence for a bowel obstruction. 6. Interstitial thickening with patchy irregular groundglass densities at the lung bases. This is slightly progressed and may represent pulmonary edema or an atypical pneumonitis on the background of chronic interstitial change.. 05/18/22 CXR: Cardiomegaly with mildly progressed mixed interstitial and alveolar opacities which may represent pulmonary edema versus a nonspecific infectious or inflammatory pneumonitis. 05/18/22 KUB x-ray: Incidental note is made of severe left hip osteoarthritis. Suprapubic catheter and bilateral ureteral stents remain in place. There are cholecystectomy clips. Moderate amount of stool within the colon and rectum is noted. Slight increase in colonic dilatation. PG Care Time/CCT Total # of Minutes Spent Total Time Spent with Patient: Total time spent is greater than 50% in coordination of care (as documented) at patient's floor/unit and/or counseling patient: Coding Level of Care Code 59038 IN/OBS CONSULT LVL 5,80M Diagnoses GIOVANY (acute kidney injury) N17.9 Chronic kidney disease with active medical management without dialysis, stage 3 (moderate) N18.30 Atrial fibrillation with RVR I48.91 Aortic stenosis I35.0 Acute UTI N39.0 Diarrhea R19.7
--- NOTE | 2022-05-20 10:44 | Pulmonary Consultation ---
Date of Consultation May 20, 2022 Assessment & Plan (1) Chronic kidney disease with active medical management without dialysis, stage 3 (moderate): (2) Moderate to severe aortic stenosis: (3) Atrial fibrillation with RVR: (4) Sleep apnea: (5) Abnormal chest xray: Plan Chest x-ray 05/18/2022ersonally reviewed: Portable film, fair inspiratory effort, patchy alveolar opacities appreciated bilaterally Dual-chamber pacemaker in place Alveolar opacity seems to be worse compared to chest x-ray 05/15/2022 2D echo04/09/2022:EF 45-50%, grade 1 diastolic dysfunction, moderate aortic stenosis, mild MR, right ventricle normal in size and function CT chest 10/06/2021ersonally reviewed: Patchy groundglass opacities appreciated bilaterally more on the right side Cardiomegaly No mediastinal lymphadenopathy --Acute on chronic hypoxic respiratory failure Multifactorial Systolic CHF playing a role on top of A-fib with RVR and severe aortic stenosis GIOVANY on CKD COVID-19 NAAT negative on 05/15/2022 BNP 533 Chest x-ray does show some fibrotic changes which are likely remanent from the COVID-19 pneumonia he had on 09/19/2021 BNP 547 10/06/21 Procalcitonin 0.07 --> 2.54 Nasal MRSA negative --COPD On Anoro -- CHANELLE Noncompliant with CPAP I do think patient will benefit from CPAP --A. fib On Eliquis Plan: Change the setting of BiPAP to 12/8 40% BNP elevated with CKD as well as systolic CHF. Continue with diuretic Procalcitonin seems to be increasing but in a patient with significant CKD, its relevance is not known Repeat chest x-ray in the morning Overall prognosis of the patient is guarded. Please note the above document was generated using voice recognition software. It may contain grammatical, syntax or spelling errors.Any formal questions or concerns about the content, text or information contained within the body of this dictation should be directly addressed to the provider for clarification. History of Present Illness Attending Physician: Kevin Shay History of Present Illness 82-year-old male was admitted to hospital for UTI and he had a stent placed in Past medical history: Paroxysmal A. fib, coronary artery disease, CKD, Alzheimer's dementia, hypothyroidism Pulmonary consulted for worsening shortness of breath Please make note that the patient is a poor historian: History was obtained from previous chart as well as RN At the time of examination patient was on BiPAP 10/5 on 50%, saturating 93-94% He was breathing in high 20s to low 30s. He complained of left lower extremity pain. Denied any chest pain. Denied any headache, no nausea vomiting. No belly pain, no diarrhea He has been spiking fever, Tmax 38.4 Social history: Ex-smoker approximately [id number] smoking history quit in the 60s Allergies Allergy/AdvReac Type Severity Reaction Status Date / Time captopril Allergy Severe Anaphylaxis Verified 02/05/22 17:27 morphine Allergy Severe Anaphylaxis Verified 02/05/22 21:27 oxaprozin Allergy Severe Anaphylaxis Verified 02/05/22 17:27 torsemide Allergy Severe Anaphylaxis Verified 02/05/22 17:27 hydrocodone Allergy Mild Rash Verified 02/05/22 17:27 Home Medications Medication Instructions Recorded Confirmed Type folic acid 1 mg tablet 1 mg PO QAM #90 tabs 10/04/19 05/15/22 Rx albuterol sulfate 90 mcg/actuation 2 puff inhalation Q6H PRN 07/09/20 05/15/22 Rx aerosol inhaler (Ventolin HFA) cough/wheeze/shortness of breath #1 inhaler cyanocobalamin (vitamin B-12) 1,000 mcg PO QAM 07/16/20 05/15/22 History 1,000 mcg tablet ferrous sulfate 325 mg (65 mg 325 mg PO QAM 07/16/20 05/15/22 History iron) tablet,delayed release polyethylene glycol 3350 17 gram 17 g PO DAILY PRN Constipation 07/16/20 05/15/22 History oral powder packet (Miralax) ascorbic acid (vitamin C) 500 mg 500 mg PO QAM 10/22/20 05/15/22 History tablet (Vitamin C) docusate sodium 100 mg capsule 100 mg PO BID 10/22/20 05/15/22 History (Stool Softener) albuterol sulfate 2.5 mg/3 mL 2.5 mg (3 mL) inhalation QID PRN 04/16/21 05/15/22 Rx (0.083 %) solution for nebulization shortness of breath or wheezing #75 mL ipratropium 0.5 mg-albuterol 3 mg 3 ml inhalation Q6H PRN wheezing 06/20/21 05/15/22 Rx (2.5 mg base)/3 mL nebulization #90 mL soln tramadol 50 mg tablet 50 mg PO TID PRN Pain #30 tabs 09/03/21 05/15/22 Rx memantine 10 mg tablet (Namenda) 10 mg PO BID #180 tabs 09/09/21 05/15/22 Rx donepezil 10 mg tablet 10 mg PO HS #90 tabs 09/23/21 05/15/22 Rx calcium carbonate 500 mg-vitamin 1 tab PO DAILY 09/29/21 05/15/22 History D3 5 mcg (200 unit) tablet levothyroxine 112 mcg tablet 112 mcg PO HS #90 tabs 01/15/22 05/15/22 Rx (Synthroid) famotidine 40 mg tablet (Pepcid) 40 mg PO DAILYBB #90 tabs 01/20/22 05/15/22 Rx apixaban 2.5 mg tablet (Eliquis) 2.5 mg PO BID #180 tabs 02/24/22 05/15/22 Rx bupropion HCl 100 mg tablet,12 hr 100 mg PO BID #60 ea 02/24/22 05/15/22 Rx sustained-release gabapentin 300 mg capsule 300 mg PO HS #90 caps 02/24/22 05/15/22 Rx isosorbide mononitrate 30 mg 30 mg PO QAM #90 tabs 03/03/22 05/15/22 Rx tablet,extended release 24 hr tamsulosin 0.4 mg capsule 0.4 mg PO HS #90 caps 03/27/22 05/15/22 Rx simvastatin 80 mg tablet 80 mg PO HS #90 tabs 04/14/22 05/15/22 Rx bethanechol chloride 50 mg tablet 50 mg PO QID #360 tabs 04/28/22 05/15/22 Rx potassium chloride 20 mEq 20 meq PO DAILY #30 tabs 05/14/22 05/15/22 Rx tablet,extended release acetaminophen 325 mg tablet 325 mg PO Q4 PRN pain 05/15/22 05/15/22 History carvedilol 6.25 mg tablet 6.25 mg PO BIDWMEAL #180 tabs 05/15/22 Rx Patient History Medical History (Updated 05/20/22 @ 11:49 by Demian Rosenberg MD, [facility]) Acute kidney injury Anemia Anticoagulant long-term use Anxiety and depression Aortic stenosis Mild (MG 11 mmHg, UZMA 1.1 cm2) per 11/2015 ECHO. Valve not well visualized on echo 03/22/20. Aortic stenosis Severe per 09/30/21 ECHO UZMA 0.8cm Atrial fibrillation dx 2017 >on Eliquis, no cardioversions Avascular necrosis of bone of left hip (~05/2020) severe avascular necrosis and severe osteoarthritis to left hip joint with moderate advanced right hip osteoarthritis Bilateral renal masses BPH w urinary obs/LUTS CAD (coronary artery disease) Multiple cardiac stents (x4 total)- most recent 3+ years ago 1997- LCx- stent Most recent cath 2013 per cardio records "LAD okay, LCX OM 30, RCA ok, NL EF" CAD (coronary artery disease), [place] coronary artery S/P BMS to OM (1997). Caths also 2006, 2008 and 2013, no stents placed. Most recent cath in 2013 showed no angiographically significant stenosis other than 20-30% in-stent restenosis of OM. Cardiac pacemaker in situ Implanted 2008 (03/[address] [employer]fo. Replaced 2016. > Last pacer check 04/10/20 [facility] > Dr. 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 On donepezil and memantine, follows with neurology Dyslipidemia Edema of both upper extremities Elevated troponin Facial droop GERD (gastroesophageal reflux disease) controlled Hematuria History of kidney stones History of MO (myocardial infarction) 1997- Follows with Dr. Hodge/Debbie History of recent hospitalization Admitted to [facility] 07/10/21-07/14/21- for staph bacteremia secondary to infected wound at suprapubic catheter site, UTI, acute metabolic encephalopathy; per 08/09/21 neuro note- bacteremia resolved with abxs, acute metabolic encephalopathy resolved, mental status back to baseline, UTI/GIOVANY resolved after abx. HTN (hypertension), benign Hx of gastric ulcer Hx of sleep apnea Does not use CPAP at home Hydronephrosis Hydronephrosis Hypertension Hypokalemia Hypothyroidism Iron deficiency anemia Multiple drug allergies Nocturnal hypoxia On oxygen Pacemaker (2008) [facility] [employer]fo [id number]- DDD- secondary to SN dysfunction and SSS Initially implanted in 2008- generator change in 2017 Paroxysmal atrial fibrillation NO HX CARDIOVERSION On Eliquis Presence of suprapubic catheter Recurrent UTI Secondary hyperparathyroidism of renal origin Sleep apnea NO DEVICE USED UNABLE TO TOLERATE CPAP Stage 3b chronic kidney disease Stage 3b chronic kidney disease Stercoral colitis Suprapubic catheter In place secondary to neurogenic bladder UTI (urinary tract infection) Wheezing Surgical History H/O total knee replacement R/L History of back surgery MULTIPLE History of cardiac cath Multiple cardiac stents (x4 total)- most recent 3+ years ago History of carpal tunnel release of both wrists History of cataract surgery B/L History of colonoscopy History of lithotripsy History of lumbar fusion History of prostate surgery Partial prostatectomy History of thyroidectomy secondary to goiter History of tooth extraction All teeth S/P cystoscopy with ureteral stent placement last 05/2021 @ [facility] Dr. William Medrano- Cystoscopy, Bilateral retrograde pyelogram, Bilateral ureteral stent exchange, Left aspiration and culture S/P TURP S/P ureteral stent placement Cysto, B/L RPG, right ureteroscopy, stent exchange: 07/06/18: LMA#5 at [facility] Cysto stent exchange (11/2018) Cystoscopy, stent exchange, suprapubic catheter (04/30/20): MAC at [facility] S/P ureteral stent placement Family History Father Diabetes Mother Coronary heart disease Hypertension Brother Seizure Other No family history of adverse response to anesthesia Denies family history of Ovarian cancer Prostate cancer Myocardial infarction Breast cancer Colorectal cancer Social History Smoking Status: Former smoker Tobacco Type: Cigarettes Age Started Using Tobacco: 15; Age Quit Using Tobacco: 59; packs per day: 2; Second Hand Exposure: No; Hx Alcohol Use: No Hx Substance Use: No Preferred Language: Kazakh Communication Ability: Effective Communication Ability Comment: "some things he will remember/some wont" per can sign own consent Visual Impairment: No Limitations Hearing Ability: Hard of Hearing Making Department Preparer Required: No Beliefs That Will Affect Care: None marital status: Current Living Situation: Spouse and Family Current Living Situation Comment: home with spouce and 2 daughters current occupational status: retired How many Children do You have: 3 Other Information That Helps Us Care for You: No Feels Safe at Home: Yes Safety Concerns: Feels Safe At This Time Childhood Exposure to Second-Hand Smoke: No caffeine: Yes (Coffee 3 per day.) during the past year weight has: remained stable Dental Care, Regularly: No Physical Activity Frequency: Does not Exercise Seatbelt Use: always Sunscreen Use: No Assistive Devices: Hospital Bed, Mechanical Lift and Wheelchair Review of Systems Review of Systems: All systems reviewed & are unremarkable except as noted in HPI & below Physical Exam Physical Exam: Constitutional: In mild respiratory distress HEENT: EOMI, PERRLA Respiratory system: Decreased air entry bilaterally, no wheeze, no rhonchi, positive crackles bilateral lower lobes CVS: S1-S2 positive, positive 3 out of 6 systolic murmur appreciated best at aorta Abdomen: Soft, nontender, nondistended, positive bowel sounds x4, obese Extremities: +2 pulses bilaterally radialis/ dorsalis pedis, no cyanosis, +1 pitting edema bilateral lower extremity Neuro: Somnolent, oriented to self and place Psych: Flat mood and affect G/U: Positive Michel Skin: no rashes, warm and dry Lymphatic: no cervical or axillary lymphadenopathy Results & Data Results & Data Vital Signs (Past 12 Hours) Vital Signs Temp Pulse Pulse Resp BP BP Pulse Ox 05/20/22 07:20 35.6 C L 61 24 142/78 H 91 05/20/22 06:52 64 24 94 05/20/22 06:52 64 21 94 05/20/22 03:45 36.4 C L 60 22 112/53 L 94 05/20/22 02:31 36.4 C L 60 22 117/57 L 95 05/20/22 02:06 61 26 H 96 05/20/22 00:32 73 05/19/22 22:44 38.4 C H 76 35 H 75/39 L 90 O2 Del Method FiO2 05/20/22 07:20 BiPAP 05/20/22 06:52 50 05/20/22 06:52 BiPAP 50 05/20/22 03:45 BiPAP 50 05/20/22 02:31 BiPAP 50 05/20/22 02:06 50 05/20/22 00:32 05/19/22 22:44 BiPAP 50 Laboratory Results 05/20/22 06:13 05/20/22 06:13 PG Care Time/CCT Total # of Minutes Spent Total Time Spent with Patient: Total time spent is greater than 50% in coordination of care (as documented) at patient's floor/unit and/or counseling patient: Coding Level of Care Code 37015 INT INP/OBS CARE 3/75MIN Diagnoses Chronic kidney disease with active medical management without dialysis, stage 3 (moderate) N18.30 Moderate to severe aortic stenosis I35.0 Atrial fibrillation with RVR I48.91 Sleep apnea G47.30 Abnormal chest xray R93.89
[2022-05-20] MEDS: ACETAMINOPHEN 1,000 MG/100 ML VIAL IV PRN (11:34)
[2022-05-20 12:38] LABS: Appearance Urine Turbid (Clear); Bilirubin Urine Negative (Negative); Blood Urine 3+ (Negative); Color Urine Red; Glucose Urine UA Negative (Negative); Ketones Urine Negative (Negative); Leukocyte Esterase Urine 3+ (Negative); Nitrite Urine Negative (Negative); Protein Urine 3+ (Negative); Urobilinogen Urine Negative (Negative); pH Urine 5.5 (4.5-7.5)
[2022-05-20 12:45] LABS: Bacteria Urine 2+ (Negative); RBC Urine >30 /hpf (0-4); WBC Urine >30 /hpf (0-5)
[2022-05-20 16:55] LABS: Creatinine Urine Random 57.5 mg/dl; Protein Creatinine Ratio Urine 16.5 (0-0.2); Total Protein Urine Random 947.6 mg/dl (0-11.9)
--- NOTE | 2022-05-20 16:59 | Cardiology Progress Note ---
Date of Service May 20, 2022 Assessment & Plan (1) Atrial fibrillation with RVR: (2) Heart failure with mid-range ejection fraction (HFmEF): (3) Moderate to severe aortic stenosis: (4) Elevated troponin: (5) CAD (coronary artery disease): (6) Anemia: (7) Dyslipidemia: (8) Pacemaker: Plan ASSESSMENT/PLAN: 1. Atrial fibrillation: Converted while on amiodarone drip. Amiodarone drip discontinued yesterday during hypotensive episode. Amiodarone discontinued at this time but will start amiodarone 200 mg p.o. once daily tomorrow to hopefully maintain sinus rhythm. Discontinue beta-christina given issues with hypotension at times. Recommend monitoring TSH and transaminase levels in the future. TSH and transaminase levels normal. Continue anticoagulation for stroke risk reduction. Given renal function and age, Eliquis 2.5 mg daily is appropriate. 2. Aortic stenosis: Most recent echo done locally was in September 2021. As moderate to severe aortic stenosis based on more recent echoes including outside hospital echo. Can continue to follow. 3. Heart failure with midrange EF: Likely hypervolemic. Allergies list torsemide with anaphylactic reaction however he received furosemide in September 2021 and appeared to tolerate it well when reviewing old records. Agree with gentle diuresis. Has had net positive fluid balance recently. Low-sodium diet. Strict I's and O's. Daily weights if possible. Repeat echo. 4. Pacemaker: Has followed with Dr. Fenton in the past but has not been seen recently. Generator change in 2017. 5. CAD s/p PCI: Reported PCI in 1997 at the time of ME and has had repeat catheterizations based on outpatient records, more recently 2013. Statin therapy can be resumed when okay with hospitalist service. Would recommend agent other than simvastatin while on amiodarone. Not on beta-christina currently due to hypotension earlier this hospital stay. No reported angina. Peak high- sensitivity troponin thus far 48.6, but in the setting of acute UTI, hypotension during this hospital stay, and A-fib with RVR. 6. UTI: Has chronic suprapubic catheter and ureteral stent. As per urology. 7. Anemia: As per primary hospitalist service. Seems to be a chronic issue. 8. Disposition: Cardiology will continue to follow. Patient care communicated with Dr. Saborio, of the primary hospitalist service. Discussed with patient's via telephone today. Recommend palliative care consult. Poor prognosis. She is agreeable. On discharge, follow-up also with primary sales floor team leader, Dr. Fenton. Highly complex medical issues. Admission and Anticipated Discharge Date Admission Date: May 15, 2022 Subjective Patient on BiPAP. He was arousable on verbal stimuli but did not participate in conversation, other than mumbling, similar to yesterday. Asked yes or no questions, but did not answer meaningfully. Review of systems unable to be obtained. Was given Lasix 20 mg IV yesterday. Was later found to be febrile and hypotensive and was given lactated Ringer's by hospitalist service. Unaccompanied. Physical Exam Physical Exam: Gen.: No acute distress. Somnolent but arousable to verbal stimuli. On BiPAP. HEENT: Anicteric sclera. Neck: Difficult neck exam and unable to cooperate. No obvious JVD. Cardiac: Regular. Normal S1. S2 difficult to auscultate. 2/6 late peaking systolic ejection murmur heard best at right upper sternal border. . Pulmonary: Clear on anterior auscultation Abdomen: Soft, nontender, nondistended, with normoactive bowel sounds. No bruits noted. Extremities: 2+ radial pulses bilaterally. 2+ posterior tibialis pulses bilaterally. Bilateral upper and lower extremity edema. No cyanosis. Results & Data Vital Signs (Past 12 Hours) Vital Signs Temp Pulse Pulse Resp BP Pulse Ox O2 Del Method 05/20/22 15:31 60 05/20/22 15:07 61 23 92 BiPAP 05/20/22 15:02 36.7 C 61 17 127/68 93 BiPAP 05/20/22 12:55 101 H 23 91 05/20/22 11:20 35.6 C L 62 24 124/57 L 89 L BiPAP 05/20/22 10:42 61 22 92 05/20/22 10:42 61 22 92 BiPAP 05/20/22 07:30 59 L 05/20/22 07:30 BiPAP 05/20/22 07:20 35.6 C L 61 24 142/78 H 91 BiPAP 05/20/22 06:52 64 24 94 05/20/22 06:52 64 21 94 BiPAP FiO2 05/20/22 15:31 05/20/22 15:07 50 05/20/22 15:02 05/20/22 12:55 50 05/20/22 11:20 05/20/22 10:42 50 05/20/22 10:42 50 05/20/22 07:30 05/20/22 07:30 05/20/22 07:20 05/20/22 06:52 50 05/20/22 06:52 50 Intake & Output 05/18/22 05/19/22 05/20/22 05/21/22 06:59 06:59 06:59 06:59 Intake Total 2531.667 / 2531.667 2041.135 / 2041.135 1188.668 / 1188.668 100 / 100 Output Total 1226 / 1226 700 / 700 775 / 775 175 / 175 Balance 1305.667 / 9177.902 0492.135 / 1341.135 413.668 / 413.668 -75 / -75 Weight 174 lb 6.17 oz 171 lb 11.841 oz 172 lb 9.951 oz 172 lb 9.951 oz Laboratory Results Laboratory Results - last 24 hr 05/19/22 05/19/22 05/19/22 17:23 17:23 20:42 WBC RBC Hgb Hct MCV MCH MCHC RDW Std Deviation RDW Coeff of Curtis Plt Count MPV VBG pH 7.34 L VBG pCO2 36 L VBG pO2 36 VBG HCO3 19 VBG O2 Saturation 61.9 VBG Base Excess -5.7 Sodium 143 Potassium 4.7 Chloride 115 H Carbon Dioxide 21 Anion Gap 7 BUN 41 H Creatinine 2.61 H D Est Cr Clr Drug Dosing 20.0 Est GFR ( Amer) 25.2 Est GFR (Non-Af Amer) 21.7 BUN/Creatinine Ratio 15.7 Glucose 117 H Lactate Calcium 8.7 Total Bilirubin 0.3 AST 19 ALT 12 Alkaline Phosphatase 92 Troponin I High Sens 33.7 H C-Reactive Protein B-Natriuretic Peptide 428 H Total Protein 6.7 Albumin 2.7 L Globulin 4.0 Albumin/Globulin Ratio 0.7 L Procalcitonin Urine Color Urine Appearance Urine pH Ur Specific Frederick Urine Protein Urine Glucose (UA) Urine Ketones Urine Blood Urine Nitrite Urine Bilirubin Urine Urobilinogen Ur Leukocyte Esterase Urine RBC Urine WBC Ur Epithelial Cells Urine Bacteria Ur Random Creatinine U Random Total Protein Protein/Creatinin Ratio 05/19/22 05/19/22 05/20/22 23:07 23:07 00:57 WBC RBC Hgb Hct MCV MCH MCHC RDW Std Deviation RDW Coeff of Curtis Plt Count MPV VBG pH VBG pCO2 VBG pO2 VBG HCO3 VBG O2 Saturation VBG Base Excess Sodium Potassium Chloride Carbon Dioxide Anion Gap BUN Creatinine Est Cr Clr Drug Dosing Est GFR ( Amer) Est GFR (Non-Af Amer) BUN/Creatinine Ratio Glucose Lactate 2.3 H* 1.2 Calcium Total Bilirubin AST ALT Alkaline Phosphatase Troponin I High Sens 48.6 H D C-Reactive Protein B-Natriuretic Peptide Total Protein Albumin Globulin Albumin/Globulin Ratio Procalcitonin Urine Color Urine Appearance Urine pH Ur Specific Frederick Urine Protein Urine Glucose (UA) Urine Ketones Urine Blood Urine Nitrite Urine Bilirubin Urine Urobilinogen Ur Leukocyte Esterase Urine RBC Urine WBC Ur Epithelial Cells Urine Bacteria Ur Random Creatinine U Random Total Protein Protein/Creatinin Ratio 05/20/22 05/20/22 05/20/22 06:13 06:13 06:13 WBC 16.18 H RBC 2.96 L Hgb 8.5 L Hct 26.7 L MCV 90.2 MCH 28.7 MCHC 31.8 L RDW Std Deviation 56.1 H RDW Coeff of Curtis 17.2 H Plt Count 276 MPV 10.2 VBG pH VBG pCO2 VBG pO2 VBG HCO3 VBG O2 Saturation VBG Base Excess Sodium 145 Potassium 4.4 Chloride 115 H Carbon Dioxide 21 Anion Gap 9 BUN 42 H Creatinine 2.89 H Est Cr Clr Drug Dosing 18.1 Est GFR ( Amer) 22.3 Est GFR (Non-Af Amer) 19.2 BUN/Creatinine Ratio 14.5 Glucose 141 H Lactate Calcium 8.4 L Total Bilirubin AST ALT Alkaline Phosphatase Troponin I High Sens C-Reactive Protein 28.42 H B-Natriuretic Peptide 533 H Total Protein Albumin Globulin Albumin/Globulin Ratio Procalcitonin Urine Color Urine Appearance Urine pH Ur Specific Frederick Urine Protein Urine Glucose (UA) Urine Ketones Urine Blood Urine Nitrite Urine Bilirubin Urine Urobilinogen Ur Leukocyte Esterase Urine RBC Urine WBC Ur Epithelial Cells Urine Bacteria Ur Random Creatinine U Random Total Protein Protein/Creatinin Ratio 05/20/22 05/20/2223 09:51 Unknown Unknown WBC RBC Hgb Hct MCV MCH MCHC RDW Std Deviation RDW Coeff of Curtis Plt Count MPV VBG pH VBG pCO2 VBG pO2 VBG HCO3 VBG O2 Saturation VBG Base Excess Sodium Potassium Chloride Carbon Dioxide Anion Gap BUN Creatinine Est Cr Clr Drug Dosing Est GFR ( Amer) Est GFR (Non-Af Amer) BUN/Creatinine Ratio Glucose Lactate Calcium Total Bilirubin AST ALT Alkaline Phosphatase Troponin I High Sens C-Reactive Protein B-Natriuretic Peptide Total Protein Albumin Globulin Albumin/Globulin Ratio Procalcitonin 2.54 H Urine Color Red Urine Appearance Turbid A Urine pH 5.5 Ur Specific Frederick 1.020 Urine Protein 3+ H Urine Glucose (UA) Negative Urine Ketones Negative Urine Blood 3+ H Urine Nitrite Negative Urine Bilirubin Negative Urine Urobilinogen Negative Ur Leukocyte Esterase 3+ H Urine RBC >30 H Urine WBC >30 H Ur Epithelial Cells 5-10 H Urine Bacteria 2+ H Ur Random Creatinine 57.5 U Random Total Protein 947.6 H Protein/Creatinin Ratio 16.5 H Diagnostic Findings Telemetry personally reviewed: Sinus rhythm. No arrhythmia. Labs reviewed and notable for somewhat stable renal function over the past 2 days, but creatinine trending upward from yesterday. Stable anemia. Nephrology consultation reviewed. Pulmonary note reviewed Medications Administered Current Inpatient Medications Acetaminophen (Acetaminophen 325 Mg Tab) 325 mg PO Q4 PRN PRN Reason: pain (1,2,3), fever, headache Stop: 06/14/22 18:38 Last Admin: 05/17/22 03:19 Dose: 325 mg Albuterol (Albut/Ipratrop 3mg/0.5mg Neb 3 Ml Vial) 3 ml NEB QIDR FLEX; Protocol Stop: 06/14/22 18:59 Last Admin: 05/20/22 15:07 Dose: 3 ml Albuterol (Albuterol 0.083% Nebu Soln 3 Ml Vial) 2.5 mg INH QID PRN; Protocol PRN Reason: shortness of breath or wheezing Stop: 06/14/22 18:38 Albuterol (Albut/Ipratrop 3mg/0.5mg Neb 3 Ml Vial) 3 ml INH Q6H PRN; Protocol PRN Reason: wheezing Stop: 06/14/22 18:38 Apixaban (Apixaban 2.5 Mg Tab) 2.5 mg PO BID FLEX Stop: 06/17/22 08:59 Last Admin: 05/20/22 08:13 Dose: 2.5 mg Bethanechol Chloride (Bethanechol Chl 25 Mg Tab) 50 mg PO QID FLEX Stop: 06/14/22 18:38 Last Admin: 05/20/22 12:37 Dose: 50 mg Bupropion HCl (Bupropion Sr 100 Mg Tabcr) 100 mg PO BID FLEX Stop: 06/14/22 20:59 Last Admin: 05/20/22 08:14 Dose: 100 mg Docusate Sodium (Docusate Sodium 100 Mg Cap) 100 mg PO BID FLEX Stop: 06/14/22 20:59 Last Admin: 05/20/22 08:20 Dose: 100 mg Donepezil HCl (Donepezil Hcl 10 Mg Tab) 10 mg PO HS FLEX Stop: 06/14/22 20:59 Last Admin: 05/19/22 20:34 Dose: 10 mg Famotidine (Famotidine 40 Mg Tablet) 40 mg PO DAILYBB FLEX Stop: 06/15/22 06:29 Last Admin: 05/20/22 05:58 Dose: 40 mg Ferrous Sulfate (Ferrous Sulfate 325 Mg Tab) 325 mg PO QAM FLEX Stop: 06/15/22 08:59 Last Admin: 05/20/22 08:13 Dose: 325 mg Fluconazole (Fluconazole 100 Mg Tab) 200 mg PO QAM FLEX Stop: 05/27/22 08:59 Last Admin: 05/20/22 08:14 Dose: 200 mg Folic Acid (Folic Acid 1 Mg Tab) 1 mg PO QAM FLEX Stop: 06/15/22 08:59 Last Admin: 05/20/22 08:13 Dose: 1 mg Gabapentin (Gabapentin 300 Mg Cap) 300 mg PO HS FLEX Stop: 06/14/22 20:59 Last Admin: 05/19/22 20:34 Dose: 300 mg Amiodarone HCl/Dextrose (Nexterone / D5w) 360 mg in 200 mls @ 16.667 mls/hr IV .Q12H FLEX Stop: 06/17/22 08:14 Last Infusion: 05/19/22 22:30 Dose: 0 mg/min, 0 mls/hr Ceftriaxone Sodium 1,000 mg/ (Dextrose) 50 mls @ 100 mls/hr IV Q24H [facility]; Protocol Stop: 05/29/22 19:59 Last Infusion: 05/19/22 20:58 Dose: Infused Acetaminophen (Ofirmev) 1,000 mg in 100 mls @ 400 mls/hr IV Q8H PRN PRN Reason: Fever Stop: 05/22/22 22:49 Last Infusion: 05/20/22 12:01 Dose: Infused Isosorbide Mononitrate (Isosorbide [place] Extended Rel 30 Mg Tabcr) 30 mg PO QAM FLEX Stop: 06/15/22 08:59 Last Admin: 05/17/22 10:43 Dose: Not Given Levothyroxine Sodium (Levothyroxine Sodium 112 Mcg Tablet) 112 mcg PO [facility] Stop: 06/14/22 20:59 Last Admin: 05/19/22 20:35 Dose: 112 mcg Memantine (Memantine Hcl 10 Mg Tab) 10 mg PO BID [facility] Stop: 06/14/22 20:59 Last Admin: 05/20/22 08:13 Dose: 10 mg Metoprolol Tartrate (Metoprolol Tartrate 25 Mg Tab) 25 mg PO Q6HWA [facility] Stop: 06/17/22 17:59 Last Admin: 05/20/22 12:37 Dose: 25 mg Polyethylene Glycol (Polyethylene (Miralax) 17 Gm Pack) 17 gm PO BID [facility] Stop: 06/16/22 09:59 Last Admin: 05/20/22 09:02 Dose: Not Given Potassium Chloride (Potassium Chloride Crtab 20 Meq Tabcr) 20 meq PO DAILY [facility] Stop: 06/15/22 08:59 Last Admin: 05/20/22 08:20 Dose: 20 meq Tamsulosin HCl (Tamsulosin Hcl 0.4 Mg Cap) 0.4 mg PO [facility] Stop: 06/14/22 20:59 Last Admin: 05/19/22 20:36 Dose: 0.4 mg Tramadol HCl (Tramadol Hcl 50 Mg Tablet) 50 mg PO TID PRN PRN Reason: Pain Stop: 06/14/22 18:38 PG Care Time/CCT Total # of Minutes Spent Total Time Spent with Patient: Total time spent is greater than 50% in coordination of care (as documented) at patient's floor/unit and/or counseling patient: Coding Level of Care Code 31664 SUB INP/OBS CARE 3/50MIN Diagnoses Atrial fibrillation with RVR I48.91 Heart failure with mid-range ejection fraction (HFmEF) I50.22 Moderate to severe aortic stenosis I35.0 Elevated troponin R77.8 CAD (coronary artery disease) I25.10 Anemia D64.9 Dyslipidemia E78.5 Pacemaker Z95.0
[2022-05-20] MEDS: cefTRIAXone SODIUM 1,000 MG in DEXTROSE 5% AD-VAN 50 ML IV SCH (19:20)
[2022-05-20] MEDS: AMIODARONE / D5W 360 MG/200 ML BAG IV SCH (20:23)
[2022-05-20] MEDS: LEVOTHYROXINE SODIUM 112 MCG TABLET PO SCH (21:16)
[2022-05-20] MEDS: GABAPENTIN 300 MG CAP PO SCH (21:16)
[2022-05-20] MEDS: DONEPEZIL HCL 10 MG TAB PO SCH (21:16)
[2022-05-20] MEDS: TAMSULOSIN HCL 0.4 MG CAP PO SCH (21:17)
--- NOTE | 2022-05-21 00:04 | Hospitalist Progress Note ---
Date of Service May 20, 2022 Assessment & Plan (1) Acute UTI: Plan: -Admit to med/tele -The patient is currently afebrile hemodynamically stable, and stable on RA -Patient has a long history of drug resistant UTI's due to his chronic suprapubic cath -Previous urine cultures have grown Pseudomonas sensitive to cefepime, Coag negative Staphylococcus and Corynbact.sp not urealyticum sensitive to Daptomycin and Vancomycin, and Citrobacter farmeri sensitive to cefepime -S/P one dose of Cefepime in the ED, will continue with Cefepime and Daptomycin for now, follow urine and blood cutlures and tailor abx accordingly -Appreciate input from Urology. -Patient's urine is now clear, will continue current antibiotics. -BL SCD's and Eliquis for DVT PPX Patient has continued to be intermittently hypotensive, this appears to be due to his aortic stenosis. will consider trial of metoprolol given his elevated heart rate. Cardiology is on board. On 05/20 Updated . Explained that patient is extremely sick. Given his comorbidities of aortic stenosis, and atrial fib, it is difficult for his body to perfuse his organs while also trying to diurese while maintaining an adequate preload for his aortic stenosis. Patient has continued to require increasing oxygen requirements, and despite diuretics, he has not improved. will reach out to pulmonary for assistance. Discuss with Nephro if HD is an option. Prognosis is guarded. (2) Confusion: Plan: -At this time the patient's confusion is most likely associated with his acute UTI, GIOVANY, and dehydration due to recent diarrhea -No focal neuro defects, patient has presented like this on previous admissions with UTI -Fall precautions, aspiration precautions, bedside dysphagia screen ordered -Continue to monitor mental status with treatment of his acute issues Appears to be at baseline (3) Elevated troponin: Plan: -Initial high sen trop elevated at 24 -ECG read listed possible inferior infarct but these is extensive artifact and no significant ST segment or T-wave changes on my read -Patient is asymptomatic -Continue to monitor on tele (4) GIOVANY (acute kidney injury): Plan: -Cr noted to be 3.0 today, baseline appears closer to 1.5-1.6 -CT of the abd/pelvis show his ureteral stents to be in adequate position with stable moderate right and severe left hydronephrosis -GIOVANY likely due to dehydration, current UTI, and could also have been exacerbated with recent Bactrim therapy -Avoid Nephrotoxic agents, monitor intake and output, new myles placed in ED -Urology consulted -Monitor daily renal function and electrolytes Creatinine continues to worsen, nephrology consulted. (5) Paroxysmal atrial fibrillation: Plan: -as above. continue Eliquis (6) Diarrhea: Plan: -Patient's family notes 4 days of 3-4 non-bloody bowel movements daily -CT fo the abd/pelvis show Constipation with possible mild stercoral proctitis, similar to the prior study and no signs of bowel obstruction -Could be infectious but could also be due to his stercoral colitis and constipation -Will continue oral bowel regimen with BID colace and daily miralax and will give a tap water enema now, continue to monitor for consistent bowel movements -Stool studies ordered by the ED, continue to follow (7) Chronic diastolic heart failure: Plan: -Appears hypervolemic on exam -will hold off IVF and place diuretics (8) Hypothyroidism: Plan: -Will obtain TSH -Continue levothyroxine (9) Dementia: Plan: -Continue Namenda Plan the patient was discussed with Dr. Arce at the time of the admission Admission and Anticipated Discharge Date Admission Date: May 15, 2022 Subjective 82 yo male is on a BIPAP machine. Review of Systems Review of Systems: All systems reviewed & are unremarkable except as noted in HPI & below Physical Exam Physical Exam: General: In no acute distress, stated age, chronically ill appearing HEENT: Normocephalic, atraumatic, no scleral icterus, pupils around round, symmetrical, and reactive to light, moist mucus membranes, trachea midline, no thyromegaly Chest/Pulm: No respiratory distress, symmetrical chest expansion, scattered rhonchi and wheezing throughout Cardiac: RRR, systolic murmur noted Abdomen: Negative for ascites and bruising, normoactive bowel sounds, soft, mildly tender to palpation in the lower and mid abdominal kang, no rebound tenderness Musculoskeletal: Symmetrical and without signs of acute trauma, upper and lower extremities with full ROM, no atrophy, spasticity, or flaccidity Extremities: Radial, dorsalis pedis, and posterior tibial pulses are intact and symmetrical, no edema noted in the BL LE's Skin: Warm, dry, no rashes , lesions, or scars noted Neuro: Alert and oriented to person only, no focal defects, CN II-XII tested and intact, mild tremor noted Psych: No acute distress, pleasantly confused, calm and cooperative during the exam Results & Data Results & Data Vital Signs (Past 12 Hours) Vital Signs Temp Pulse Pulse Resp BP Pulse Ox O2 Del Method 05/20/22 22:24 36.5 C 73 26 H 115/90 93 BiPAP 05/20/22 22:10 73 27 H 91 05/20/22 19:19 66 18 92 05/20/22 19:19 66 22 92 BiPAP 05/20/22 19:12 BiPAP 05/20/22 19:00 36.4 C L 66 19 126/73 90 BiPAP 05/20/22 15:31 60 05/20/22 15:07 61 23 92 BiPAP 05/20/22 15:02 36.7 C 61 17 127/68 93 BiPAP 05/20/22 12:55 101 H 23 91 FiO2 05/20/22 22:24 05/20/22 22:10 70 05/20/22 19:19 60 05/20/22 19:19 60 05/20/22 19:12 05/20/22 19:00 05/20/22 15:31 05/20/22 15:07 50 05/20/22 15:02 05/20/22 12:55 50 PG Care Time/CCT Total # of Minutes Spent Total Time Spent with Patient: Total time spent is greater than 50% in coordination of care (as documented) at patient's floor/unit and/or counseling patient: Coding Level of Care Code 74181 SUB INP/OBS CARE 3/50MIN Diagnoses Acute UTI N39.0 Confusion R41.0 Elevated troponin R77.8 GIOVANY (acute kidney injury) N17.9 Paroxysmal atrial fibrillation I48.0 Diarrhea R19.7 Chronic diastolic heart failure I50.32 Hypothyroidism E03.9 Hypothyroidism type: acquired Dementia F03.90 (8) Hypothyroidism Hypothyroidism type: acquired Qualified Code(s): E03.9 - Hypothyroidism, unspecified
[2022-05-21 06:34] LABS: Hematocrit (blood only) 27.1 % (42.0-52.0); Hemoglobin 8.5 g/dl (14.0-18.0); Mean Corpuscular Hemoglobin 28.8 pg (25.0-34.0); Mean Corpuscular Hgb Conc 31.4 g/dL (32.0-36.0); Mean Corpuscular Volume 91.9 fL (80.0-100.0); Mean Platelet Volume 10.7 fL (9.4-12.4); Nucleated RBC # (auto) 0.03 K/uL (0-0.12); Nucleated RBC % (auto) 0.2 %; Platelet Count 298 K/uL (130-400); RDW Coefficient of Variation 17.1 % (11.5-14.5); RDW Standard Deviation 57.5 fL (36.4-46.3); Red Blood Count 2.95 M/uL (4.70-6.10)
[2022-05-21] MEDS: FAMOTIDINE 40 MG TABLET PO SCH (06:34)
[2022-05-21 06:44] LABS: BUN Creatinine Ratio 14.8 (10-20); Calcium 8.6 mg/dl (8.6-10.3); Creatinine Clr Calc Pharmacy 15.9 ml/min; Est GFR (Non-African American) 16.4 ml/min
[2022-05-21] MEDS: ALBUT/IPRATROP 3MG/0.5MG NEB 3 ML VIAL NEB SCH ×4 (07:01→19:07)
--- NOTE | 2022-05-21 08:12 | XRay Report ---
XR chest 1V portable HISTORY: 82 years-old Male f/u acute shortness of breath COMPARISON: 05/18/2022 TECHNIQUE: AP view of the chest FINDINGS: Cardiac silhouette is enlarged. Left subclavian pacer. Atherosclerosis of the aorta. Progressive wors ened mixed interstitial and alveolar opacities. No pneumothorax. Small pleural effusions with dense a irspace consolidation throughout the right lung. Bones appear grossly intact. Calcified granulomata o f the spleen. IMPRESSION: 1. Cardiomegaly with progressively worsened right greater than left mixed interstitial and alveolar o pacities suggestive of pulmonary edema versus multifocal pneumonia. 2. Small pleural effusions. ACT 112: Negative or not required by law. The above report was generated using voice recognition software. It may contain grammatical, syntax o r spelling errors. Electronically signed by: Avelino Joshi M.D. 05/21/2022 8:10 AM
--- NOTE | 2022-05-21 08:35 | Nephrology Progress Note ---
Date of Service May 21, 2022 Assessment & Plan (1) GIOVANY (acute kidney injury): Plan: * Nonoliguric GIOVANY/CKD due to relative hypotension in the setting of UTI, atrial fibrillation w/ RVR and moderate to severe * Urine microscopy reveals blood, no granular casts * Patient has 3rd spacing of volume w/ dependent edema * CXR this am shows progressive pulmonary edema. This is related to severe and atrial fibrillation * Mr. Momin is not a dialysis candidate due to his advanced age, frail health and essentially bedridden status. I do not believe that he will tolerate a trial of HD due to his relative hypotension and moderate-severe * Recommend gentle diuresis, up to 1 L/day * Monitor PRP, UO * Kidney function continues to decline. Recommend discussion w/ family regarding goals of care. Consider Palliative Care consultation and transition to comfort measures (2) Chronic kidney disease with active medical management without dialysis, stage 3 (moderate): Plan: * Baseline Cr 1.7 - 2.0. BPH w/ chronic BHARDWAJ requiring bilateral ureteral stents and suprapubic myles catheter. 06/[address] shows bilateral hydronephrosis. L renal cortex is severely atrophic (3) Atrial fibrillation with RVR: Plan: * On Metoprolol, Amiodarone and Apixaban therapy (4) Aortic stenosis: Plan: * 05/01 Echocardiogram: LVEF 45-50%,moderate (5) Acute UTI: Plan: * On IV Ceftriaxone (6) Diarrhea: Plan: * Stool testing negative for infectious pathogens Admission and Anticipated Discharge Date Admission Date: May 15, 2022 Subjective Mr. Momin was evaluated in his hospital room this morning. He remains on BiPAP at 65% FiO2 w/ SaO2 91%. He will open his eyes to verbal stimuli and speak his name but does not answer any further questions or follow commands Review of Systems Review of Systems: Unobtainable due to CPAP therapy Physical Exam Physical Exam: Telemetry shows atrial fibrillation Constitutional: + ill appearing (on CPAP) Eyes: PERRL, conjunctivae normal, anicteric sclerae ENMT: external ear and nose normal, oropharynx normal Neck: trachea midline, no thyromegaly Respiratory: + labored breathing and + retractions Auscultation: + rales Cardiovascular: Rate/Rhythm: + irregularly irregular Extremities: + edema (1+ dependent edema) Gastrointestinal (Abdomen): normal bowel sounds, soft, nontender, no hepatosplenomegaly Results & Data Vital Signs (Past 12 Hours) Vital Signs Temp Pulse Pulse Resp BP BP Pulse Ox 05/21/22 07:00 36.6 C 72 24 109/69 90 05/21/22 07:11 70 26 H 89 L 05/21/22 07:03 71 22 91 05/21/22 02:20 29 H 94 05/21/22 02:31 37.1 C 73 29 H 100/59 L 91 05/21/22 01:12 73 05/20/22 22:24 36.5 C 73 26 H 115/90 93 05/20/22 22:10 73 27 H 91 O2 Del Method FiO2 05/21/22 07:00 BiPAP 05/21/22 07:11 60 05/21/22 07:03 BiPAP 60 05/21/22 02:20 60 05/21/22 02:31 BiPAP 05/21/22 01:12 05/20/22 22:24 BiPAP 05/20/22 22:10 70 Laboratory Results Laboratory Tests 05/20/22 05/20/22 05/20/22 06:13 Unknown Unknown WBC Hgb Hct Plt Count Sodium Potassium Chloride Carbon Dioxide BUN Creatinine 2.89 H Glucose Urine Color Red Urine Appearance Turbid A Urine pH 5.5 Ur Specific [place] 1.020 Urine Protein 3+ H Urine Glucose (UA) Negative Urine Blood 3+ H Urine RBC >30 H Protein/Creatinin Ratio 16.5 H 05/21/22 05/21/22 05:26 05:26 WBC 17.80 H Hgb 8.5 L Hct 27.1 L Plt Count 298 Sodium 147 H Potassium 4.0 Chloride 115 H Carbon Dioxide 21 BUN 49 H Creatinine 3.30 H D Glucose 99 Urine Color Urine Appearance Urine pH Ur Specific [place] Urine Protein Urine Glucose (UA) Urine Blood Urine RBC Protein/Creatinin Ratio Diagnostic Findings 05/21/22 CXR: 1. Cardiomegaly with progressively worsened right greater than left mixed interstitial and alveolar opacities suggestive of pulmonary edema versus multifocal pneumonia. 2. Small pleural effusions. PG Care Time/CCT Total # of Minutes Spent Total Time Spent with Patient: Total time spent is greater than 50% in coordination of care (as documented) at patient's floor/unit and/or counseling patient: Coding Level of Care Code 18033 SUB INP/OBS CARE 3/50MIN Diagnoses GIOVANY (acute kidney injury) N17.9 Chronic kidney disease with active medical management without dialysis, stage 3 (moderate) N18.30 Atrial fibrillation with RVR I48.91 Aortic stenosis I35.0 Acute UTI N39.0 Diarrhea R19.7
[2022-05-21] MEDS ORDERED: AMIODARONE 200 MG TAB PO SCH (09:00)
[2022-05-21] MEDS: POLYETHYLENE (MIRALAX) 17 GM PACK PO SCH ×2 (09:40→21:27)
[2022-05-21] MEDS: APIXABAN 2.5 MG TAB PO SCH ×2 (09:45→21:26)
[2022-05-21] MEDS: DOCUSATE SODIUM 100 MG CAP PO SCH ×2 (09:45→21:26)
[2022-05-21] MEDS: BETHANECHOL CHL 25 MG TAB PO SCH ×4 (09:45→21:26)
[2022-05-21] MEDS: FERROUS SULFATE 325 MG TAB PO SCH (09:45)
[2022-05-21] MEDS: buPROPion SR 100 MG TABCR PO SCH ×2 (09:45→21:26)
[2022-05-21] MEDS: FLUCONAZOLE 100 MG TAB PO SCH (09:45)
[2022-05-21] MEDS: FOLIC ACID 1 MG TAB PO SCH (09:46)
[2022-05-21] MEDS: POTASSIUM CHLORIDE CRTAB 20 MEQ TABCR PO SCH (09:46)
[2022-05-21] MEDS: MEMANTINE HCL 10 MG TAB PO SCH ×2 (09:46→21:26)
--- NOTE | 2022-05-21 09:58 | XCELERA ---
[id number]
--- NOTE | 2022-05-21 10:18 | Cardiology Progress Note ---
Date of Service May 21, 2022 Assessment & Plan (1) Atrial fibrillation with RVR: (2) Heart failure with mid-range ejection fraction (HFmEF): (3) Moderate to severe aortic stenosis: (4) CAD (coronary artery disease): (5) Anemia: (6) Dyslipidemia: (7) Pacemaker: (8) Ventricular tachycardia: Plan ASSESSMENT/PLAN: 1. Atrial fibrillation: Converted while on amiodarone drip. Can continue amiodarone 200 mg daily. Discontinue beta-christina given issues with hypotension at times. Recommend monitoring TSH and transaminase levels in the future. TSH and transaminase levels normal. Continue anticoagulation for stroke risk reduction. Given renal function and age, Eliquis 2.5 mg daily is appropriate. 2. Aortic stenosis: Moderate to severe. Not an ideal candidate for aortic valve replacement given other ongoing issues including worsening renal failure, and questionable mental status. 3. Heart failure with mid range EF: Likely hypervolemic. Allergies list torsemide with anaphylactic reaction however he received furosemide in September 2021 and appeared to tolerate it well when reviewing old records. Agree with gentle diuresis. He has not had significant diuresis over the past few days but yesterday attained net negative fluid balance of 276 ml. Low-sodium diet. Strict I's and O's. Daily weights if possible. Low normal LV systolic function on 05/20/2022 echo. 4. Pacemaker: Has followed with Dr. Fenton in the past but has not been seen recently. Generator change in 2017. 5. CAD s/p PCI: Reported PCI in 1997 at the time of [place] and has had repeat catheterizations based on outpatient records, more recently 2013. Statin therapy can be resumed when okay with hospitalist service. Would recommend agent other than simvastatin while on amiodarone. Not on beta-christina currently due to hypotension earlier this hospital stay. No reported angina. Peak high- sensitivity troponin thus far 48.6, but in the setting of acute UTI, hypotension during this hospital stay, and A-fib with RVR. Consider aspirin 81 mg daily if able to take p.o. (p.o. meds were held this morning by nursing staff). 6. UTI: Has chronic suprapubic catheter and ureteral stent. As per urology. 7. Anemia: As per primary hospitalist service. Seems to be a chronic issue. 8. Ventricular tachycardia: Nonsustained. He is on amiodarone. No further changes at this time. Monitor electrolytes. 9. Disposition: Poor prognosis. Palliative care consultation was placed yes terday and currently pending. Had conversation with his yesterday. Patient care communicated with Dr. Shay, of the primary hospitalist service. On discharge, follow-up also with primary insurance attorney, Dr. Fenton. Highly complex medical issues. Admission and Anticipated Discharge Date Admission Date: May 15, 2022 Subjective Patient seen this morning. He appeared to indicate that he is not short of breath and denied chest pain. He continues to mumble at times however and difficult to know how well he is understanding questions. He remains on BiPAP. Had a conversation with his yesterday via telephone and she was agreeable to palliative consultation, which is currently pending. He was alone in his hospital room. Physical Exam Physical Exam: Gen.: No acute distress. Awake. On BiPAP. HEENT: Anicteric sclera. Neck: Difficult neck exam and unable to cooperate. No obvious JVD. Cardiac: Regular. Normal S1. S2 difficult to auscultate. 2/6 late peaking systolic ejection murmur heard best at right upper sternal border. . Pulmonary: Bibasilar Rales. Abdomen: Soft, nontender, nondistended, with normoactive bowel sounds. No bruits noted. Extremities: 2+ radial pulses bilaterally. Trace Bilateral upper and lower extremity edema. No cyanosis. Results & Data Vital Signs (Past 12 Hours) Vital Signs Temp Pulse Pulse Resp BP BP Pulse Ox 05/21/22 07:00 36.6 C 72 24 109/69 90 05/21/22 07:11 70 26 H 89 L 05/21/22 07:03 71 22 91 05/21/22 02:20 29 H 94 05/21/22 02:31 37.1 C 73 29 H 100/59 L 91 05/21/22 01:12 73 05/20/22 22:24 36.5 C 73 26 H 115/90 93 05/20/22 22:10 73 27 H 91 O2 Del Method FiO2 05/21/22 07:00 BiPAP 05/21/22 07:11 60 05/21/22 07:03 BiPAP 60 05/21/22 02:20 60 05/21/22 02:31 BiPAP 04/12/23 01:12 05/20/22 22:24 BiPAP 05/20/22 22:10 70 Intake & Output 05/19/22 05/20/22 05/21/22 05/22/22 06:59 06:59 06:59 06:59 Intake Total 2041.135 / 2041.135 1188.668 / 1188.668 150 / 150 Output Total 700 / 700 775 / 775 426 / 426 Balance 1341.135 / 1341.135 413.668 / 413.668 -276 / -276 Weight 171 lb 11.841 oz 172 lb 9.951 oz 171 lb 1.259 oz Laboratory Results Laboratory Results - last 24 hr 05/20/22 05/20/22 05/20/22 06:13 09:51 Unknown WBC RBC Hgb Hct MCV MCH MCHC RDW Std Deviation RDW Coeff of [place] Plt Count MPV Absolute Nucleated RBC Nucleated RBC % (auto) Sodium Potassium Chloride Carbon Dioxide Anion Gap BUN Creatinine Est Cr Clr Drug Dosing Est GFR ( Amer) Est GFR (Non-Af Amer) BUN/Creatinine Ratio Glucose Calcium C-Reactive Protein 28.42 H Procalcitonin 2.54 H Urine Color Red Urine Appearance Turbid A Urine pH 5.5 Ur Specific [place] 1.020 Urine Protein 3+ H Urine Glucose (UA) Negative Urine Ketones Negative Urine Blood 3+ H Urine Nitrite Negative Urine Bilirubin Negative Urine Urobilinogen Negative Ur Leukocyte Esterase 3+ H Urine RBC >30 H Urine WBC >30 H Ur Epithelial Cells 5-10 H Urine Bacteria 2+ H Ur Random Creatinine U Random Total Protein Protein/Creatinin Ratio 05/20/22 05/21/22 05/21/22 Unknown 05:26 05:26 WBC 17.80 H RBC 2.95 L Hgb 8.5 L Hct 27.1 L MCV 91.9 MCH 28.8 MCHC 31.4 L RDW Std Deviation 57.5 H RDW Coeff of [place] 17.1 H Plt Count 298 MPV 10.7 Absolute Nucleated RBC 0.03 Nucleated RBC % (auto) 0.2 Sodium 147 H Potassium 4.0 Chloride 115 H Carbon Dioxide 21 Anion Gap 11 BUN 49 H Creatinine 3.30 H D Est Cr Clr Drug Dosing 15.9 Est GFR ( Amer) 19.0 Est GFR (Non-Af Amer) 16.4 BUN/Creatinine Ratio 14.8 Glucose 99 Calcium 8.6 C-Reactive Protein Procalcitonin Urine Color Urine Appearance Urine pH Ur Specific [place] Urine Protein Urine Glucose (UA) Urine Ketones Urine Blood Urine Nitrite Urine Bilirubin Urine Urobilinogen Ur Leukocyte Esterase Urine RBC Urine WBC Ur Epithelial Cells Urine Bacteria Ur Random Creatinine 57.5 U Random Total Protein 947.6 H Protein/Creatinin Ratio 16.5 H Diagnostic Findings Telemetry personally reviewed: Sinus rhythm. Had nonsustained ventricular tachycardia this morning, consisting of 11 beats. Labs reviewed from 05/21/2022, demonstrating worsening leukocytosis, stable anemia, and worsening renal function. Nephrology note reviewed. Chest x-ray image personally reviewed: Chest x-ray 05/21/2022 demonstrated significant right lung interstitial opacities. Radiology interprets as progressively worsened right greater than left mixed interstitial and alveolar opacities suggestive of pulmonary edema versus multifocal pneumonia. Small pleural effusions. Medications Administered Current Inpatient Medications Acetaminophen (Acetaminophen 325 Mg Tab) 325 mg PO Q4 PRN PRN Reason: pain (1,2,3), fever, headache Stop: 06/14/22 18:38 Last Admin: 05/17/22 03:19 Dose: 325 mg Albuterol (Albut/Ipratrop 3mg/0.5mg Neb 3 Ml Vial) 3 ml NEB QIDR FLEX; Protocol Stop: 06/14/22 18:59 Last Admin: 05/21/22 07:01 Dose: 3 ml Albuterol (Albuterol 0.083% Nebu Soln 3 Ml Vial) 2.5 mg INH QID PRN; Protocol PRN Reason: shortness of breath or wheezing Stop: 06/14/22 18:38 Albuterol (Albut/Ipratrop 3mg/0.5mg Neb 3 Ml Vial) 3 ml INH Q6H PRN; Protocol PRN Reason: wheezing Stop: 06/14/22 18:38 Amiodarone HCl (Amiodarone 200 Mg Tab) 200 mg PO QAM [facility] Stop: 06/20/22 08:59 Last Admin: 05/21/22 09:45 Dose: Not Given Apixaban (Apixaban 2.5 Mg Tab) 2.5 mg PO BID [facility] Stop: 06/17/22 08:59 Last Admin: 05/21/22 09:45 Dose: Not Given Bethanechol Chloride (Bethanechol Chl 25 Mg Tab) 50 mg PO QID [facility] Stop: 06/14/22 18:38 Last Admin: 05/21/22 09:45 Dose: Not Given Bupropion HCl (Bupropion Sr 100 Mg Tabcr) 100 mg PO BID [facility] Stop: 06/14/22 20:59 Last Admin: 05/21/22 09:45 Dose: Not Given Docusate Sodium (Docusate Sodium 100 Mg Cap) 100 mg PO BID [facility] Stop: 06/14/22 20:59 Last Admin: 05/21/22 09:45 Dose: Not Given Donepezil HCl (Donepezil Hcl 10 Mg Tab) 10 mg PO [facility] Stop: 06/14/22 20:59 Last Admin: 05/20/22 21:16 Dose: 10 mg Famotidine (Famotidine 40 Mg Tablet) 40 mg PO DAILYBB [facility] Stop: 06/15/22 06:29 Last Admin: 05/21/22 06:34 Dose: 40 mg Ferrous Sulfate (Ferrous Sulfate 325 Mg Tab) 325 mg PO QAM [facility] Stop: 06/15/22 08:59 Last Admin: 05/21/22 09:45 Dose: Not Given Fluconazole (Fluconazole 100 Mg Tab) 200 mg PO QAM [facility] Stop: 05/27/22 08:59 Last Admin: 05/21/22 09:45 Dose: Not Given Folic Acid (Folic Acid 1 Mg Tab) 1 mg PO QAM [facility] Stop: 06/15/22 08:59 Last Admin: 05/21/22 09:46 Dose: Not Given Gabapentin (Gabapentin 300 Mg Cap) 300 mg PO [facility] Stop: 06/14/22 20:59 Last Admin: 05/20/22 21:16 Dose: 300 mg Ceftriaxone Sodium 1,000 mg/ (Dextrose) 50 mls @ 100 mls/hr IV Q24H [facility]; Protocol Stop: 05/29/22 19:59 Last Infusion: 05/20/22 19:50 Dose: Infused Acetaminophen (Ofirmev) 1,000 mg in 100 mls @ 400 mls/hr IV Q8H PRN PRN Reason: Fever Stop: 05/22/22 22:49 Last Infusion: 05/20/22 12:01 Dose: Infused Isosorbide Mononitrate (Isosorbide [place] Extended Rel 30 Mg Tabcr) 30 mg PO QAM [facility] Stop: 06/15/22 08:59 Last Admin: 05/17/22 10:43 Dose: Not Given Levothyroxine Sodium (Levothyroxine Sodium 112 Mcg Tablet) 112 mcg PO HS [facility] Stop: 06/14/22 20:59 Last Admin: 05/20/22 21:16 Dose: 112 mcg Memantine (Memantine Hcl 10 Mg Tab) 10 mg PO BID [facility] Stop: 06/14/22 20:59 Last Admin: 05/21/22 09:46 Dose: Not Given Polyethylene Glycol (Polyethylene (Miralax) 17 Gm Pack) 17 gm PO BID [facility] Stop: 06/16/22 09:59 Last Admin: 05/21/22 09:40 Dose: Not Given Potassium Chloride (Potassium Chloride Crtab 20 Meq Tabcr) 20 meq PO DAILY [facility] Stop: 06/15/22 08:59 Last Admin: 05/21/22 09:46 Dose: Not Given Tamsulosin HCl (Tamsulosin Hcl 0.4 Mg Cap) 0.4 mg PO [facility] Stop: 06/14/22 20:59 Last Admin: 05/20/22 21:17 Dose: 0.4 mg Tramadol HCl (Tramadol Hcl 50 Mg Tablet) 50 mg PO TID PRN PRN Reason: Pain Stop: 06/14/22 18:38 PG Care Time/CCT Total # of Minutes Spent Total Time Spent with Patient: Total time spent is greater than 50% in coordination of care (as documented) at patient's floor/unit and/or counseling patient: Coding Level of Care Code 20745 SUB INP/OBS CARE 3/50MIN Diagnoses Atrial fibrillation with RVR I48.91 Heart failure with mid-range ejection fraction (HFmEF) I50.22 Moderate to severe aortic stenosis I35.0 CAD (coronary artery disease) I25.10 Anemia D64.9 Dyslipidemia E78.5 Pacemaker Z95.0 Ventricular tachycardia I47.20
[2022-05-21] MEDS ORDERED: FUROSEMIDE 40 MG/4 ML VIAL IV ONE (10:19)
[2022-05-21] MEDS ORDERED: metroNIDAZOLE 500 MG/100 ML BAG IV SCH (10:30)
[2022-05-21] MEDS ORDERED: CEFEPIME 500 MG in SYRINGE 0 ML IV SCH (10:30)
[2022-05-21] MEDS ORDERED: CEFEPIME 1,000 MG in SYRINGE 0 ML IV SCH (10:30)
--- NOTE | 2022-05-21 11:36 | Palliative Care Consultation ---
Date of Consultation May 21, 2022 Assessment & Plan (1) Palliative care by specialist: Met with family/Mrs Cueto via telephone for ACP discussion (see #2) and we reviewed that Palliative Medicine, a subspecialty that provides specialized medical care for people living with a serious illness by offering a focus on quality of life. Palliative Medicine is often conflated with hospice: I advised patient/family that Palliative and hospice can be partners but we are not the same. It is important to understand the difference so that we may be informed, and not afraid. Palliative Medicine works to improve QOL through reduction of symptom burden/more control over their illness, for both the patient and family. Palliative medicine clinicians are board certified, specially-trained and another member of the patient's medical care team. We often provide an extra layer of support because our care is based on the needs of the patient, not the prognosis; as such, it's appropriate at any age/advancing stage of a serious illness and can be provided along with curative treatment. Palliative Medicine clinicians are also trained in advanced communication methodologies, to facilitate complex discussions about advanced illness planning, which are needed to help assure that the treatment choices match the patient's goals, aka delivering Goal Concordant care. Finally, we discussed that hospice is a visiting nurse service that focuses on care delivered at the very end of life for patients with terminal illness, with life expectancy less than 6 month. (2) Discussion about advance care planning held with family member: 28min ACP conversation by phone with : Mrs. Cueto wants him home with hospice. She and her daughters have already discussed and want [facility]. I told her i would anticipate his dc being 1-2 days from now since equipment needs to be ordered and delivered etc. She is agreeable to moving him to comfort care status while pending the home hospice dc. She and her daughters share a home. They have discussed how best to honor patient's wishes. They know he is nearing his dying time. They want him at home and researched home hospice and after speaking with friends and family elected [facility]. She tells me she understands he has terminal HF and valve failure. She also tells me his organs are failing latisha kidney and he has been growing weaker and more confused. She has appreciated the candor of her conversations with the multiple specialists.We discussed the changes to expect as heart failure patients near the end of their lives, with attention to: patients may feel increasingly breathless both during activity and at rest, persistent coughing or wheezing/sometimes productive of white or pink mucus and can be worse at night or when lying down; sometimes more physical pain may be present that can often be relieved by non pharmacological remedies such as PT, massage, etc., additionally cognitive impairments may worsen and as such impair the patient's ability to be interactive with their loved ones - this can sometimes get better with improved volume status but it is unlikely to resolve. We spoke about how end-of-life care in patients with heart failure is an additive process, whereby therapies to treat symptoms not alleviated by guidelin e-based medical therapy are integrated into the care of these individuals. Once traditional medical therapies and nonpharmacologic therapies have been exhausted, low-dose opioids are generally felt to be first-line adjuvant therapy to treat dyspnea. Sometimes, providers may be uncomfortable with utilization of more potent opiates, which is why collaboration with hospice at the shelter will be useful. Finally, we discussed that as a patient transitions to the end of life with HF, there is so much more to do as far as reducing symptom burden and improving QOL - which we as providers can best address via a thoughtful ACP as we have discussed (and outlined above) in place. I provided education about the hospice benefit: an interdisciplinary program offered by nurses, nurses aides, social workers, chaplains and a medical equipment technician for patients with a terminal condition and a life expectancy of less than 6 months. This is covered by Medicare at 100%/no out of pocket expense to patient and all meds/supplies needed by patient for the reason they are on hospice are paid for/covered by hospice. The goal is assure quality of life of the patient in their home setting (home, shelter, inpatient hospice setting) by providing symptoms management, psychosocial and spiritual support. However, they cannot offer 24 hours care and if the family is unable to provide that care, they will have to consider personal care with out of pocket cost vs. shelter placement. We discussed the goals of hospice as a patient service and the goals of care; we discussed EOL trajectories and transitions latisha the emotional impact of realizing mortality as a concrete reality from prior abstract considerations. Pt was reassured that no matter where they are along this trajectory, they are not alone - their medical team will remain by their side through their journey. Discussed the pros/cons of accepting help when especially weakened and distressed by pain-which would also help provide relief/decrease caregiver burden/strain. I advised her CM will contact her to review hospice referral, DME delivery and dc transport accommodations. I specifically advised and she agreed we will move pt to comfort care in hospital. We know there is a short anticipated survival. She is hopeful he can come home. He has been using BiPAP. he will need this at home for hospice and it should be a covered hospice service. (3) Weakness generalized: progresive temrinal HF (4) Heart failure due to valvular disease: (5) Confusion: (6) Moderate to severe aortic stenosis: (7) MSOF (multiple systems organ failure): Plan and family desire home with hospice. We will transition him to comfort care while awaiting hospice dispo - CM to assist. is aware of short anticipated survival but hopes to bring him home as this was his final wish. I have updated primary team Thank you for allowing us to participate in the ongoing care of this patient. Please don't hesitate to call or page with any additional concerns. Dr. Ena Lopez DNP Director, Palliative Care History of Present Illness Reason for Consultation: [facility] Attending Physician: Kevin Shay History of Present Illness Alfredo Momin was admitted 05/15/22 from home with c/o urinary infection changes, progressive weakness, AMS, ? bloody diarrhea. He was confused and weak on arrival. He has a long history of drug resistant UTI's due to his chronic suprapubic cath and his previous urine cultures have grown Pseudomonas sensitive to cefepime, Coag negative Staphylococcus and Corynbact.sp not urealyticum sensitive to Daptomycin and Vancomycin, and Citrobacter farmeri sensitive to cefepime Complex medical hx include: dementia, COPD, BL ureteral stent placement by Dr. Medrano in February, Aortic stenosis, chronic suprapubic catheter with history of multiple Drug resistant UTI's, HFrEF (LVEF of 45-50%. Grade I diastolic dysf unction, paroxysmal atrial fibrillation on Eliquis, severe aortic stenosis as of 09/30/21), hypothyroidism, chronic pain, dyslipidemia, nocturnal hypoxemia. ED workup revealed the following findings: Afebrile, hemodynamically stable on RA. WBC 11.84 absolute neutrophils 7.42, stable Hgb and platelets, Cr 3.02 (baseline 1.5) Chloride 111 BUN 41 High sens troponin 24.3 PCT < 0.05 UA: 2+ protein, 3+ blood, 3+ leukocyte esterase, >30 RBC, WBC, 4+ bacteria, ++budding w/hyphae Covid negative CXR: "Interstitial opacities are seen without evidence of acute abnormality. S table cardiomegaly." CT head: "No acute intracranial hemorrhage, no evidence of acute territorial infarction or other acute intracranial disease process." CT Abd/pelv: "1. Unchanged moderate right and severe left hydronephrosis with stable positioning of the ureteral stents. 2. There is a punctate stone within the lower pole of the right kidney. No ureteral stones identified. 3. Bladder wall thickening with adjacent fat stranding, unchanged. The bladder is decompressed by suprapubic catheter. Recommend correlation with urinalysis to exclude a cystitis. 4. Constipation with possible mild stercoral proctitis. This is similar to the prior study. 5. No evidence for a bowel obstruction. 6. Interstitial thickening with patchy irregular groundglass densities at the lung bases. This is slightly progressed and may represent pulmonary edema or an atypical pneumonitis on the background of chronic interstitial change. 7. Additional findings as described above." Given Cefepime and 250 mL of LR. Hospital course further complicated by A fib now on amiodarone, worsening renal failure, Ao Stenosis/mod to severe and he si NOT a surgical candidate. Low normal LV systolic function on 05/20/2022 echo. Cardiology fet his overall prognosis is very poor and comfort care was recommended. Nephrology advised he is not a candidate for HD given age, frailty, declining PS, etc. Recommended transition to comfort measures. In spite of therapies, his reps status is worsening and he has required BiPAP which today was increased to 14/10. Palliative Medicine was consulted to assist with GOC and ACP. Allergies Allergy/AdvReac Type Severity Reaction Status Date / Time captopril Allergy Severe Anaphylaxis Verified 02/05/22 17:27 morphine Allergy Severe Anaphylaxis Verified 02/05/22 21:27 oxaprozin Allergy Severe Anaphylaxis Verified 02/05/22 17:27 torsemide Allergy Severe Anaphylaxis Verified 02/05/22 17:27 hydrocodone Allergy Mild Rash Verified 02/05/22 17:27 Home Medications Medication Instructions Recorded Confirmed Type folic acid 1 mg tablet 1 mg PO QAM #90 tabs 10/04/19 05/15/22 Rx albuterol sulfate 90 mcg/actuation 2 puff inhalation Q6H PRN 07/09/20 05/15/22 Rx aerosol inhaler (Ventolin HFA) cough/wheeze/shortness of breath #1 inhaler cyanocobalamin (vitamin B-12) 1,000 mcg PO QAM 07/16/20 05/15/22 History 1,000 mcg tablet ferrous sulfate 325 mg (65 mg 325 mg PO QAM 07/16/20 05/15/22 History iron) tablet,delayed release polyethylene glycol 3350 17 gram 17 g PO DAILY PRN Constipation 07/16/20 05/15/22 History oral powder packet (Miralax) ascorbic acid (vitamin C) 500 mg 500 mg PO QAM 10/22/20 05/15/22 History tablet (Vitamin C) docusate sodium 100 mg capsule 100 mg PO BID 10/22/20 05/15/22 History (Stool Softener) albuterol sulfate 2.5 mg/3 mL 2.5 mg (3 mL) inhalation QID PRN 04/16/21 05/15/22 Rx (0.083 %) solution for nebulization shortness of breath or wheezing #75 mL ipratropium 0.5 mg-albuterol 3 mg 3 ml inhalation Q6H PRN wheezing 06/20/21 05/15/22 Rx (2.5 mg base)/3 mL nebulization #90 mL soln tramadol 50 mg tablet 50 mg PO TID PRN Pain #30 tabs 09/03/21 05/15/22 Rx memantine 10 mg tablet (Namenda) 10 mg PO BID #180 tabs 09/09/21 05/15/22 Rx donepezil 10 mg tablet 10 mg PO HS #90 tabs 09/23/21 05/15/22 Rx calcium carbonate 500 mg-vitamin 1 tab PO DAILY 09/29/21 05/15/22 History D3 5 mcg (200 unit) tablet levothyroxine 112 mcg tablet 112 mcg PO HS #90 tabs 01/15/22 05/15/22 Rx (Synthroid) famotidine 40 mg tablet (Pepcid) 40 mg PO DAILYBB #90 tabs 01/20/22 05/15/22 Rx apixaban 2.5 mg tablet (Eliquis) 2.5 mg PO BID #180 tabs 02/24/22 05/15/22 Rx bupropion HCl 100 mg tablet,12 hr 100 mg PO BID #60 ea 02/24/22 05/15/22 Rx sustained-release gabapentin 300 mg capsule 300 mg PO HS #90 caps 02/24/22 05/15/22 Rx isosorbide mononitrate 30 mg 30 mg PO QAM #90 tabs 03/03/22 05/15/22 Rx tablet,extended release 24 hr tamsulosin 0.4 mg capsule 0.4 mg PO HS #90 caps 03/27/22 05/15/22 Rx simvastatin 80 mg tablet 80 mg PO HS #90 tabs 04/14/22 05/15/22 Rx bethanechol chloride 50 mg tablet 50 mg PO QID #360 tabs 04/28/22 05/15/22 Rx potassium chloride 20 mEq 20 meq PO DAILY #30 tabs 05/14/22 05/15/22 Rx tablet,extended release acetaminophen 325 mg tablet 325 mg PO Q4 PRN pain 05/15/22 05/15/22 History carvedilol 6.25 mg tablet 6.25 mg PO BIDWMEAL #180 tabs 05/15/22 Rx Patient History Medical History (Updated 05/21/22 @ 11:34 by Ena Lopez, YASH) Acute kidney injury Anemia Anticoagulant long-term use Anxiety and depression Aortic stenosis Mild (MG 11 mmHg, UZMA 1.1 cm2) per 11/2015 ECHO. Valve not well visualized on echo 03/22/20. Aortic stenosis Severe per 09/30/21 ECHO UZMA 0.8cm Atrial fibrillation dx 2017 >on Eliquis, no cardioversions Avascular necrosis of bone of left hip (~05/2020) severe avascular necrosis and severe osteoarthritis to left hip joint with moderate advanced right hip osteoarthritis Bilateral renal masses BPH w urinary obs/LUTS CAD (coronary artery disease) Multiple cardiac stents (x4 total)- most recent 3+ years ago 1997- LCx- stent Most recent cath 2013 per cardio records "LAD okay, LCX OM 30, RCA ok, NL EF" CAD (coronary artery disease), minto coronary artery S/P BMS to OM (1997). Caths also 2006, 2008 and 2013, no stents placed. Most recent cath in 2013 showed no angiographically significant stenosis other than 20-30% in-stent restenosis of OM. Cardiac pacemaker in situ Implanted 2008 (03/[address] Ad[facility]fo. Replaced 2016. > Last pacer check 04/10/20 [facility] > Dr. 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 On donepezil and memantine, follows with neurology Discussion about advance care planning held with family member Dyslipidemia Edema of both upper extremities Elevated troponin Facial droop GERD (gastroesophageal reflux disease) controlled Heart failure due to valvular disease Hematuria History of kidney stones History of MD (myocardial infarction) 1997- Follows with Dr. Hodge/[facility] History of recent hospitalization Admitted to [facility] 07/10/21-07/14/21- for staph bacteremia secondary to infected wound at suprapubic catheter site, UTI, acute metabolic encephalopathy; per 08/09/21 neuro note- bacteremia resolved with abxs, acute metabolic encephalopathy resolved, mental status back to baseline, UTI/GIOVANY resolved after abx. 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 and SSS Initially implanted in 2008- generator change in 2017 Palliative care by specialist Paroxysmal atrial fibrillation NO HX CARDIOVERSION On Eliquis Presence of suprapubic catheter Recurrent UTI Secondary hyperparathyroidism of renal origin Sleep apnea NO DEVICE USED UNABLE TO TOLERATE CPAP Stage 3b chronic kidney disease Stage 3b chronic kidney disease Stercoral colitis Suprapubic catheter In place secondary to neurogenic bladder UTI (urinary tract infection) Weakness generalized Wheezing Surgical History H/O total knee replacement R/L History of back surgery MULTIPLE History of cardiac cath Multiple cardiac stents (x4 total)- most recent 3+ years ago History of carpal tunnel release of both wrists History of cataract surgery B/L History of colonoscopy History of lithotripsy History of lumbar fusion History of prostate surgery Partial prostatectomy History of thyroidectomy secondary to goiter History of tooth extraction All teeth S/P cystoscopy with ureteral stent placement last 05/2021 @ [facility] Dr. William Medrano- Cystoscopy, Bilateral retrograde pyelogram, Bilateral ureteral stent exchange, Left aspiration and culture S/P TURP S/P ureteral stent placement Cysto, B/L RPG, right ureteroscopy, stent exchange: 07/06/18: LMA#5 at [facility] Cysto stent exchange (11/2018) Cystoscopy, stent exchange, suprapubic catheter (04/30/20): MAC at [facility] S/P ureteral stent placement Family History Father Diabetes Mother Coronary heart disease Hypertension Brother Seizure Other No family history of adverse response to anesthesia Denies family history of Ovarian cancer Prostate cancer Myocardial infarction Breast cancer Colorectal cancer Social History Smoking Status: Former smoker Tobacco Type: Cigarettes Age Started Using Tobacco: 15; Age Quit Using Tobacco: 59; packs per day: 2; Second Hand Exposure: No; Hx Alcohol Use: No Hx Substance Use: No Preferred Language: Malawian Communication Ability: Effective Communication Ability Comment: "some things he will remember/some wont" per can sign own consent Visual Impairment: No Limitations Hearing Ability: Hard of Hearing Software Development Advisor Required: No Beliefs That Will Affect Care: None marital status: Current Living Situation: Spouse and Family Current Living Situation Comment: home with spouce and 2 daughters current occupational status: retired How many Children do You have: 3 Other Information That Helps Us Care for You: No Feels Safe at Home: Yes Safety Concerns: Feels Safe At This Time Childhood Exposure to Second-Hand Smoke: No caffeine: Yes (Coffee 3 per day.) during the past year weight has: remained stable Dental Care, Regularly: No Physical Activity Frequency: Does not Exercise Seatbelt Use: always Sunscreen Use: No Assistive Devices: Hospital Bed, Mechanical Lift and Wheelchair Review of Systems Review of Systems: Unobtainable due to cognitive status Results & Data Vital Signs (Past 12 Hours) Vital Signs Temp Pulse Pulse Resp BP BP Pulse Ox 05/21/22 11:00 36.8 C 74 22 131/72 90 05/21/22 10:40 71 28 H 90 05/21/22 10:37 71 28 H 90 05/21/22 07:00 36.6 C 72 24 109/69 90 05/21/22 07:11 70 26 H 89 L 05/21/22 07:03 71 22 91 05/21/22 02:20 29 H 94 05/21/22 02:31 37.1 C 73 29 H 100/59 L 91 05/21/22 01:12 73 O2 Del Method FiO2 05/21/22 11:00 BiPAP 05/21/22 10:40 60 05/21/22 10:37 BiPAP 60 05/21/22 07:00 BiPAP 05/21/22 07:11 60 05/21/22 07:03 BiPAP 60 05/21/22 02:20 60 05/21/22 02:31 BiPAP 05/21/22 01:12 Laboratory Results data reviewed Diagnostic Findings data reviewed PG Care Time/CCT Total # of Minutes Spent Total Time Spent: 88 Total Time Spent with Patient: Total time spent is greater than 50% in coordination of care (as documented) at patient's floor/unit and/or counseling patient: Advanced Care Planning 96557 Advanced Care Planning 30 [place] [address] IN/OBS CONSULT LVL 5,80M Patient Type New Medical Decision Making High Complexity Diagnoses Palliative care by specialist Z51.5 Discussion about advance care planning held with family member Z71.0 Weakness generalized R53.1 Heart failure due to valvular disease I50.9; I38 Confusion R41.0 Moderate to severe aortic stenosis I35.0 MSOF (multiple systems organ failure) Additional Codes Advanced Care Planning - 56969 Advanced Care Planning 30 Min: 97329 Advanced Care Planning 30 Min ([id number])
--- NOTE | 2022-05-21 12:02 | Pulmonology Progress Note ---
Date of Service May 21, 2022 Assessment & Plan (1) Chronic kidney disease with active medical management without dialysis, stage 3 (moderate): (2) Moderate to severe aortic stenosis: (3) Atrial fibrillation with RVR: (4) Sleep apnea: (5) Abnormal chest xray: Plan Chest x-ray 05/18/2022ersonally reviewed: Portable film, fair inspiratory effort, patchy alveolar opacities appreciated bilaterally Dual-chamber pacemaker in place Alveolar opacity seems to be worse compared to chest x-ray 05/15/2022 2D echo04/09/2022:EF 45-50%, grade 1 diastolic dysfunction, moderate aortic stenosis, mild MR, right ventricle normal in size and function CT chest 10/06/2021ersonally reviewed: Patchy groundglass opacities appreciated bilaterally more on the right side Cardiomegaly No mediastinal lymphadenopathy --Acute on chronic hypoxic respiratory failure Multifactorial Systolic CHF playing a role on top of A-fib with RVR and severe aortic stenosis GIOVANY on CKD COVID-19 NAAT negative on 05/15/2022 BNP 533 Chest x-ray does show some fibrotic changes which are likely remanent from the COVID-19 pneumonia he had on 09/19/2021 BNP 547 10/06/21 Procalcitonin 0.07 --> 2.54 Nasal MRSA negative --COPD On Anoro -- CHANELLE Noncompliant with CPAP I do think patient will benefit from CPAP --A. fib On Eliquis Plan: In/out: -376, urine output 426 Chest x-ray from today shows worsening alveolar opacities bilaterally compared to the one done 05/18/2022 Change the setting of BiPAP to 14/10 Overall prognosis of the patient is guarded. Palliative care consult has been placed Case was discussed with RN at bedside Please note the above document was generated using voice recognition software. It may contain grammatical, syntax or spelling errors.Any formal questions or concerns about the content, text or information contained within the body of this dictation should be directly addressed to the provider for clarification. Admission and Anticipated Discharge Date Admission Date: May 15, 2022 Subjective Patient seen and examined at bedside. In mild respiratory distress Patient was on BiPAP 01/16, 60% saturating 89-90% I went up on BiPAP to 14/10. He was answering few questions. Denied any headache, no chest pain Has been afebrile Review of Systems Review of Systems: All systems reviewed & are unremarkable except as noted in Subjective and Unobtainable due to cognitive status Physical Exam Physical Exam: Constitutional: In respiratory distress HEENT: EOMI, PERRLA Respiratory system: Decreased air entry bilaterally, no wheeze, no rhonchi, positive crackles bilateral lower lobes CVS: S1-S2 positive, positive 3 out of 6 systolic murmur appreciated best at aorta Abdomen: Soft, nontender, nondistended, positive bowel sounds x4, obese Extremities: +2 pulses bilaterally radialis/ dorsalis pedis, no cyanosis, +1 pitting edema bilateral lower extremity Neuro: Alert, oriented to self and place Psych: Flat mood and affect G/U: Positive Michel Skin: no rashes, warm and dry Lymphatic: no cervical or axillary lymphadenopathy Results & Data Results & Data Vital Signs (Past 12 Hours) Vital Signs Temp Pulse Pulse Resp BP BP Pulse Ox 05/21/22 11:00 36.8 C 74 22 131/72 90 05/21/22 10:40 71 28 H 90 05/21/22 10:37 71 28 H 90 05/21/22 07:00 36.6 C 72 24 109/69 90 05/21/22 07:11 70 26 H 89 L 05/21/22 07:03 71 22 91 05/21/22 02:20 29 H 94 05/21/22 02:31 37.1 C 73 29 H 100/59 L 91 05/21/22 01:12 73 O2 Del Method FiO2 05/21/22 11:00 BiPAP 05/21/22 10:40 60 05/21/22 10:37 BiPAP 60 05/21/22 07:00 BiPAP 05/21/22 07:11 60 05/21/22 07:03 BiPAP 60 05/21/22 02:20 60 05/21/22 02:31 BiPAP 05/21/22 01:12 Laboratory Results 05/21/22 05:26 05/21/22 05:26 PG Care Time/CCT Total # of Minutes Spent Total Time Spent with Patient: Total time spent is greater than 50% in coordination of care (as documented) at patient's floor/unit and/or counseling patient: Coding Level of Care Code 86643 SUB INP/OBS CARE 3/50MIN Diagnoses Chronic kidney disease with active medical management without dialysis, stage 3 (moderate) N18.30 Moderate to severe aortic stenosis I35.0 Atrial fibrillation with RVR I48.91 Sleep apnea G47.30 Abnormal chest xray R93.89
[2022-05-21] MEDS: LEVOTHYROXINE SODIUM 112 MCG TABLET PO SCH (21:26)
[2022-05-21] MEDS: DONEPEZIL HCL 10 MG TAB PO SCH (21:26)
[2022-05-21] MEDS: GABAPENTIN 300 MG CAP PO SCH (21:26)
[2022-05-21] MEDS: TAMSULOSIN HCL 0.4 MG CAP PO SCH (21:27)
[2022-05-21] MEDS: cefTRIAXone SODIUM 1,000 MG in DEXTROSE 5% AD-VAN 50 ML IV SCH (21:35)
--- NOTE | 2022-05-21 22:01 | Hospitalist Progress Note ---
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 -Patient's urine is now clear, will continue current antibiotics. -BL SCD's and Eliquis for DVT PPX Patient has continued to be intermittently hypotensive, this appears to be due to his aortic stenosis. will consider trial of metoprolol given his elevated heart rate. Cardiology is on board. On 05/20 Updated . Explained that patient is extremely sick. Given his comorbidities of aortic stenosis, and atrial fib, it is difficult for his body to perfuse his organs while also trying to diurese while maintaining an adequate preload for his aortic stenosis. Patient has continued to require increasing oxygen requirements, and despite diuretics, he has not improved. will reach out to pulmonary for assistance. Discuss with Nephro if HD is an option. Prognosis is guarded. ON 05/21 Patient will bt transitioning to home hospice. will continue above management, until home hospice is set up as their wish for him to make it home. (2) Confusion: Plan: Metabolic encephalopathy -At this time the patient's confusion is most likely associated with his acute UTI, GIOVANY, and dehydration due to recent diarrhea -No focal neuro defects, patient has presented like this on previous admissions with UTI -Fall precautions, aspiration precautions, bedside dysphagia screen ordered -Continue to monitor mental status with treatment of his acute issues Appears to be at baseline (3) Elevated troponin: Plan: -Initial high sen trop elevated at 24 -ECG read listed possible inferior infarct but these is extensive artifact and no significant ST segment or T-wave changes on my read -Patient is asymptomatic -Continue to monitor on tele (4) GIOVANY (acute kidney injury): Plan: -Cr noted to be 3.0 today, baseline appears closer to 1.5-1.6 -CT of the abd/pelvis show his ureteral stents to be in adequate position with stable moderate right and severe left hydronephrosis -GIOVANY likely due to dehydration, current UTI, and could also have been exacerbated with recent Bactrim therapy -Avoid Nephrotoxic agents, monitor intake and output, new myles placed in ED -Urology consulted -Monitor daily renal function and electrolytes Creatinine continues to worsen, nephrology consulted. (5) Paroxysmal atrial fibrillation: Plan: -as above. continue Eliquis (6) Diarrhea: Plan: -Patient's family notes 4 days of 3-4 non-bloody bowel movements daily -CT fo the abd/pelvis show Constipation with possible mild stercoral proctitis, similar to the prior study and no signs of bowel obstruction -Could be infectious but could also be due to his stercoral colitis and constipation -Will continue oral bowel regimen with BID colace and daily miralax and will give a tap water enema now, continue to monitor for consistent bowel movements (7) Chronic diastolic heart failure: Plan: -Appears hypervolemic on exam -will hold off IVF and place diuretics (8) Hypothyroidism: Plan: -Will obtain TSH -Continue levothyroxine (9) Dementia: Plan: -Continue Namenda Plan the patient was discussed with Dr. Arce at the time of the admission Admission and Anticipated Discharge Date Admission Date: May 15, 2022 Subjective Patient on bipap mask Review of Systems Review of Systems: Unobtainable due to cognitive status Physical Exam Physical Exam: General: In no acute distress, stated age, chronically ill appearing HEENT: Normocephalic, atraumatic Chest/Pulm: scattered rhonchi and wheezing throughout Cardiac: RRR, systolic murmur noted Results & Data Results & Data Vital Signs (Past 12 Hours) Vital Signs Temp Pulse Pulse Pulse Resp BP Pulse Ox 05/21/22 19:09 70 29 H 90 05/21/22 19:09 72 28 H 90 05/21/22 15:21 70 31 H 89 L 05/21/22 15:18 70 30 H 89 L 05/21/22 15:04 35.9 C L 71 25 H 98/57 L 90 05/21/22 11:00 36.8 C 74 22 131/72 90 05/21/22 10:40 71 28 H 90 05/21/22 10:37 71 28 H 90 O2 Del Method FiO2 05/21/22 19:09 100 05/21/22 19:09 BiPAP 100 05/21/22 15:21 60 05/21/22 15:18 BiPAP 60 05/21/22 15:04 BiPAP 05/21/22 11:00 BiPAP 05/21/22 10:40 60 05/21/22 10:37 BiPAP 60 PG Care Time/CCT Total # of Minutes Spent Total Time Spent with Patient: Total time spent is greater than 50% in coordination of care (as documented) at patient's floor/unit and/or counseling patient: Coding Level of Care Code 85518 SUB INP/OBS CARE 2/35MIN Diagnoses Acute UTI N39.0 Confusion R41.0 Elevated troponin R77.8 GIOVANY (acute kidney injury) N17.9 Paroxysmal atrial fibrillation I48.0 Diarrhea R19.7 Chronic diastolic heart failure I50.32 Hypothyroidism E03.9 Hypothyroidism type: acquired Dementia F03.90 (8) Hypothyroidism Hypothyroidism type: acquired Qualified Code(s): E03.9 - Hypothyroidism, unspecified
[2022-05-21] MEDS ORDERED: SODIUM CHLORIDE 0.9% 500 ML IV SCH (22:45)
--- NOTE | 2022-05-21 23:38 | Electrocardiogram Report ---
Test Reason : Blood Pressure : / mmHG Vent. Rate : 103 BPM Atrial Rate : 103 BPM P-R Int : 158 ms QRS Dur : 084 ms QT Int : 348 ms P-R-T Axes : 092 -26 125 degrees QTc Int : 455 ms Poor data quality, interpretation may be adversely affected Sinus tachycardia with frequent Premature ventricular complexes in a pattern of bigeminy Nonspecific T wave abnormality Abnormal ECG When compared with ECG of 18-MAY-2022 02:29, Sinus rhythm has replaced Atrial fibrillation Confirmed by Olegario Sandoval ([id number]) on 05/21/2022 11:37:42 PM Referred By: REFERRED SELF Confirmed By:Olegario Sandoval
--- NOTE | 2022-05-21 23:39 | Electrocardiogram Report ---
Test Reason : Blood Pressure : / mmHG Vent. Rate : 140 BPM Atrial Rate : 140 BPM P-R Int : 116 ms QRS Dur : 090 ms QT Int : 278 ms P-R-T Axes : 000 -35 100 degrees QTc Int : 424 ms Poor data quality, interpretation may be adversely affected Possible Atrial flutter Left axis deviation Nonspecific ST and T wave abnormality Abnormal ECG When compared with ECG of 19-MAY-2022 19:13, Premature ventricular complexes are no longer Present Non-specific change in ST segment in Inferior leads Nonspecific T wave abnormality, improved in Anterior leads Confirmed by Olegario Sandoval ([id number]) on 05/21/2022 11:38:42 PM Referred By: REFERRED SELF Confirmed By:Olegario Sandoval
[2022-05-22] MEDS ORDERED: chlorproMAZINE HCL 25 MG TAB PO PRN (00:09)
[2022-05-22] MEDS ORDERED: MoRPHine SULFATE 2 MG/ML CARP IV PRN (00:09)
[2022-05-22] MEDS ORDERED: LORazepam 2 MG/1 ML VIAL IV PRN (00:09)
[2022-05-22] MEDS ORDERED: ONDANSETRON INJ 2 MG/ML 2 ML VIAL IV PRN (00:09)
[2022-05-22] MEDS ORDERED: ONDANSETRON 4 MG OD TAB SL PRN (00:09)
[2022-05-22] MEDS ORDERED: LORazepam 0.5 MG TAB PO PRN (00:09)
--- NOTE | 2022-05-22 00:21 | Communication Note ---
Date of Service: May 22, 2022 Notified by nursing about patient delay of patient's transfer to [facility] for transition for [employer]ACH[employer] care due to lack of comfort measures order and med review. Progress note from 05/21/2022 made no mention of transition to comfort care, though palliative medicine consult note did note plan to transition to comfort care while in the hospital with goal of dispo to hospice. Placed [employer] order and discontinued all p.o. medications. Resident Activity Tracking Resident Involvement: Resident Care Provided and Service Operator Coverage Note Care Provided: Adult [facility] Medicine
--- NOTE | 2022-05-22 06:04 | Electrocardiogram Report ---
Test Reason : Blood Pressure : / mmHG Vent. Rate : 072 BPM Atrial Rate : 072 BPM P-R Int : 194 ms QRS Dur : 086 ms QT Int : 414 ms P-R-T Axes : 000 -35 027 degrees QTc Int : 453 ms Poor data quality, interpretation may be adversely affected Sinus rhythm Left axis deviation Inferior infarct , age undetermined Nonspecific T wave abnormality Abnormal ECG When compared with ECG of 19-MAY-2022 19:23, Vent. rate has decreased BY 68 BPM Sinus rhythm is now Present Confirmed by Olegario Sandoval ([id number]) on 05/22/2022 6:03:47 AM Referred By: REFERRED SELF Confirmed By:Olegario Sandoval
--- NOTE | 2022-05-22 07:14 | Pulmonology Progress Note ---
Date of Service May 22, 2022 Assessment & Plan (1) Chronic kidney disease with active medical management without dialysis, stage 3 (moderate): (2) Moderate to severe aortic stenosis: (3) Atrial fibrillation with RVR: (4) Sleep apnea: (5) Abnormal chest xray: Plan Chest x-ray 05/18/2022ersonally reviewed: Portable film, fair inspiratory effort, patchy alveolar opacities appreciated bilaterally Dual-chamber pacemaker in place Alveolar opacity seems to be worse compared to chest x-ray 05/15/2022 2D echo04/09/2022:EF 45-50%, grade 1 diastolic dysfunction, moderate aortic stenosis, mild MR, right ventricle normal in size and function CT chest 10/06/2021ersonally reviewed: Patchy groundglass opacities appreciated bilaterally more on the right side Cardiomegaly No mediastinal lymphadenopathy --Acute on chronic hypoxic respiratory failure Multifactorial Systolic CHF playing a role on top of A-fib with RVR and severe aortic stenosis GIOVANY on CKD COVID-19 NAAT negative on 05/15/2022 BNP 533 Chest x-ray does show some fibrotic changes which are likely remanent from the COVID-19 pneumonia he had on 09/19/2021 BNP 547 10/06/21 Procalcitonin 0.07 --> 2.54 Nasal MRSA negative --COPD On Anoro -- CHANELLE Noncompliant with CPAP I do think patient will benefit from CPAP --A. fib On Eliquis Plan: In/out: -376, urine output 426 Chest x-ray from today shows worsening alveolar opacities bilaterally compared to the one done 05/18/2022 Change the setting of BiPAP to 14/10 Overall prognosis of the patient is guarded. Palliative care consult has been placed Case was discussed with RN at bedside Please note the above document was generated using voice recognition software. It may contain grammatical, syntax or spelling errors.Any formal questions or concerns about the content, text or information contained within the body of this dictation should be directly addressed to the provider for clarification. Admission and Anticipated Discharge Date Admission Date: May 15, 2022 Review of Systems Review of Systems: All systems reviewed & are unremarkable except as noted in Subjective Physical Exam Physical Exam: Constitutional: In respiratory distress HEENT: EOMI, PERRLA Respiratory system: Decreased air entry bilaterally, no wheeze, no rhonchi, positive crackles bilateral lower lobes CVS: S1-S2 positive, positive 3 out of 6 systolic murmur appreciated best at aorta Abdomen: Soft, nontender, nondistended, positive bowel sounds x4, obese Extremities: +2 pulses bilaterally radialis/ dorsalis pedis, no cyanosis, +1 pitting edema bilateral lower extremity Neuro: Alert, oriented to self and place Psych: Flat mood and affect G/U: Positive Michel Skin: no rashes, warm and dry Lymphatic: no cervical or axillary lymphadenopathy Results & Data Results & Data Vital Signs (Past 12 Hours) Vital Signs Pulse Resp Pulse Ox O2 Del Method FiO2 05/22/22 02:38 BiPAP 05/22/22 02:17 32 H 100 05/22/22 01:05 30 H 91 100 05/21/22 22:30 71 31 H 93 100 Laboratory Results 05/21/22 05:26 05/21/22 05:26 PG Care Time/CCT Total # of Minutes Spent Total Time Spent with Patient: Total time spent is greater than 50% in coordination of care (as documented) at patient's floor/unit and/or counseling patient: Coding Level of Care Code 63281 SUB INP/OBS CARE 2/35MIN Diagnoses Chronic kidney disease with active medical management without dialysis, stage 3 (moderate) N18.30 Moderate to severe aortic stenosis I35.0 Atrial fibrillation with RVR I48.91 Sleep apnea G47.30 Abnormal chest xray R93.89
--- NOTE | 2022-05-22 08:38 | Nephrology Progress Note ---
Date of Service May 22, 2022 Assessment & Plan (1) GIOVANY (acute kidney injury): (2) Chronic kidney disease with active medical management without dialysis, stage 3 (moderate): (3) Aortic stenosis: (4) Atrial fibrillation with RVR: Plan Palliative care consult reviewed. Patient is now comfort measures only w/ plan for home hospice. No further Nephrology evaluation indicated. Will sign off. Please call if further assistance is needed. Admission and Anticipated Discharge Date Admission Date: May 15, 2022 Results & Data Vital Signs (Past 12 Hours) Vital Signs Pulse Pulse Resp Pulse Ox O2 Del Method FiO2 05/22/22 07:45 BiPAP 05/22/22 07:44 53 L 14 93 BiPAP 05/22/22 07:32 54 L 15 94 100 05/22/22 02:38 BiPAP 05/22/22 02:17 32 H 100 05/22/22 01:05 30 H 91 100 05/21/22 22:30 71 31 H 93 100 Coding Level of Care Code 50836 SUB INP/OBS CARE 03/05MIN Diagnoses GIOVANY (acute kidney injury) N17.9 Chronic kidney disease with active medical management without dialysis, stage 3 (moderate) N18.30 Aortic stenosis I35.0 Atrial fibrillation with RVR I48.91
--- NOTE | 2022-05-22 20:52 | Discharge Summary ---
Date of Service May 22, 2022 Admission HPI Per Admitting Provider Alfredo Momin is an 82 year old male with a PMH significant for dementia, COPD, BL ureteral stent placement by Dr. Medrano in February, Aortic stenosis, chronic suprapubic catheter with history of multiple Drug resistant UTI's, HFrEF (LVEF of 45-50%. Grade I diastolic dysfunction, paroxysmal atrial fibrillation on Eliquis, severe aortic stenosis as of 09/30/21), hypothyroidism, chronic pain, dyslipidemia, nocturnal hypoxemia who presented to the [facility] ED on 05/15/22 with a chief complaint of urinary symptoms. In the ED the patient was found to be afebrile, hemodynamically stable, and stable on RA. Labs were remarkable for a WBC of 11.84 with absolute neutrophils of 7.42, stable Hgb and platelets, Cr of 3.02 (baseline appears to be between 1/5-1.6), chloride of 111, BUN of 41, initial high sen trop of 24.3, procal < 0.05, UA with 2+ protein, 3+ blood, 3+ leukocyte esterase, >30 RBC and WBC, 4+ bacteria, and budding w/hyphae A, and covid negative. Chest xray was read as "Interstitial opacities are seen without evidence of acute abnormality. Stable cardiomegaly.". CT of the head was read as "No acute intracranial hemorrhage, no evidence of acute territorial infarction or other acute intracranial disease process.". CT of the abdomen/pelvis wo contrast was read as "1. Unchanged moderate right and severe left hydronephrosis with stable positioning of the ureteral stents. 2. There is a punctate stone within the lower pole of the right kidney. No ureteral stones identified. 3. Bladder wall thickening with adjacent fat stranding, unchanged. The bladder is decompressed by suprapubic catheter. Recommend correlation with urinalysis to exclude a cystitis. 4. Constipation with possible mild stercoral proctitis. This is similar to the prior study. 5. No evidence for a bowel obstruction. 6. Interstitial thickening with patchy irregular groundglass densities at the lung bases. This is slightly progressed and may represent pulmonary edema or an atypical pneumonitis on the background of chronic interstitial change. 7. Additional findings as described above.". Priro to admission the patient was given a dose of Cefepime and 250 mL of LR. At the time of the exam the patient was lying in bed in no acute distress, saturating at 95% on RA. He is unable to give much of a history based on his acute confusion on top of his baseline dementia. He can only tell me that he is experiencing some upper abdominal discomfort at this time. I called and spoke with his and Daughter. They state that the patient started to acute more confused and fatigued approximately 3 days ago. He was also developed 3-4 non-b loody episodes of diarrhea daily over this time. He completed a 3 day course of PO Bactrim outpatient as his PCP thought he may be developing another UTI. His states that the patient's urine has been darker than normal over the past few days. They deny any other issues at this time. When asked, they state that the patient did not have any of his am medications prior to coming to the hospital. Please refer to Dr. Arce's attestation for any changes to the treatment plan Principal Diagnosis acute on chronic respiratory failure secondary to aortic stenosis Discharge Exam Pt was pronounced at 0840 on 05/22/22 Discharge Data Allergies Allergy/AdvReac Type Severity Reaction Status Date / Time captopril Allergy Severe Anaphylaxis Verified 02/05/22 17:27 morphine Allergy Severe Anaphylaxis Verified 02/05/22 21:27 oxaprozin Allergy Severe Anaphylaxis Verified 02/05/22 17:27 torsemide Allergy Severe Anaphylaxis Verified 02/05/22 17:27 hydrocodone Allergy Mild Rash Verified 02/05/22 17:27 Consultations 05/15/22 14:47 ED Decision to Admit Stat 05/15/22 16:10 Consult Urology Routine 05/18/22 03:10 Consult Cardiology Routine 05/19/22 19:08 [facility] [place] CHF Program Referral Routine 05/20/22 09:31 Consult Nephrology Routine 05/20/22 09:33 Consult Pulmonology Routine 05/20/22 17:02 Consult Palliative Care Routine 05/22/22 00:10 Consult Palliative Care Routine Procedures Performed Operation Date: 05/16/22 08:20 Actual Procedures p Cystoscopy with urethral dilation and Irrigation/evacuation of bladder. Suprapubic and urethral catheter placement. (Not Applicable) - William Medrano, DO Ordered Studies 05/15/22 12:49 CT abd pelvis wo con Stat CT head/brain wo con Stat 05/16/22 08:20 FL retrograde includes kub Routine Hospital Course (1) : Pt was pronounced at 0840 on 05/22/22 (2) Acute UTI: UTI due to suprapubic catheter the notation below is for record of this stay On 05/20 Updated . Explained that patient is extremely sick. Given his comorbidities of aortic stenosis, and atrial fib, it is difficult for his body to perfuse his organs while also trying to diurese while maintaining an adequate preload for his aortic stenosis. Patient has continued to require increasing oxygen requirements, and despite diuretics, he has not improved. will reach out to pulmonary for assistance. Discuss with Nephro if HD is an option. Prognosis is guarded. ON 05/21 Patient will bt transitioning to home hospice. will continue above management, until home hospice is set up as their wish for him to make it home. (3) Confusion: Metabolic encephalopathy (4) Elevated troponin: -Initial high sen trop elevated at 24 -ECG read listed possible inferior infarct but these is extensive artifact and no significant ST segment or T-wave changes (5) GIOVANY (acute kidney injury): -CT of the abd/pelvis show his ureteral stents to be in adequate position with stable moderate right and severe left hydronephrosis -GIOVANY likely due to dehydration, current UTI, and could also have been exacerbated with recent Bactrim therapy - (6) Paroxysmal atrial fibrillation: - Eliquis (7) Chronic diastolic heart failure: - Total Time Total Time Spent Total Time Spent (In Minutes): It required greater than 30 minutes to prepare this patient for discharge Discharge Plan Discharge Items Patient Disposition: Other Date/Time: 05/22/22 08:40 Coding Level of Care Code 27899 INP/OBS DISCH >30 MIN Diagnoses R99 Acute UTI N39.0 Confusion R41.0 Elevated troponin R77.8 GIOVANY (acute kidney injury) N17.9 Paroxysmal atrial fibrillation I48.0 Chronic diastolic heart failure I50.32
== END 2022-05-22 09:43 | disposition expired | DRG 659 ==
LOC: ED 12:11 → 2N 15:46 → SUATTDRO 15:46 → 2N 17:58 → 2E 05-17 21:16 → 3E 05-22 01:17